=== PATIENT | male | born 1960 | race Caucasian/White ===

== ENCOUNTER 2018-01-03 12:24 | Inpatient (IN) | payer BC, SELFPAY ==
[2018-01-03] VITALS (9 sets, daily range): BP systolic 155–173; BP diastolic 73–88; PULSE 66–78; RESP 16–22; TEMP 36.6–37; O2SAT 96–100; BMI 29.2; BMI 29.3; BMI 28.7
--- NOTE | 2018-01-03 12:48 | EKG12_ITS ---
Test Reason : VOMITING Blood Pressure : / mmHG Vent. Rate : 072 BPM Atrial Rate : 072 BPM P-R Int : 122 ms QRS Dur : 074 ms QT Int : 412 ms P-R-T Axes : 029 019 046 degrees QTc Int : 451 ms Normal sinus rhythm Normal ECG Confirmed by ANABELL COLON, SASHA ([id number]), loan expeditor HARPAL REVELES ([id number] on 01/06/2018 1:07:03 PM Referred By: VERONICA Confirmed By:SASHA HUNG MD
[2018-01-03] MEDS: Ondansetron 4 MG/2 ML Vial IV (13:01)
[2018-01-03 13:30] LABS: Absolute Lymphocyte Count 1.06 X10^3/ul (0.83-4.51); Absolute Neutrophil Count 8.6 X10^3/uL (2.0-7.7); Basophil# 0.01 X10^3/uL; Basophil% 0.1 % (0-1); Hematocrit 22.5 % (40-54); Hemoglobin 7.2 g/dl (13.0-16.5); Lymphocyte # 1.06 X10^3/ul (4.0); Lymphocyte % 10.1 % (19-41); Mean Corpuscular Hgb 26.4 pg (27.0-32.0); Mean Corpuscular Volume 82.4 fL (80-94); Mean Platelet Vol. 8.7 fl (6.2-12.0); Monocyte# 0.67 X10^3/uL; Monocyte% 6.4 % (0-10); Neutrophil # 8.62 X10^3/uL (2.7-7.7); Neutrophil % 82.1 % (47-70); Platelet Count 368 K/mm3 (150-450); RBC Distribution Width CV 12.6 % (11.6-14.6); RBC Distribution Width SD 37.8 fl (35.1-43.9); Red Blood Count 2.73 M/mm3 (4.6-6.2); White Blood Count 10.5 K/mm3 (4.4-11.0)
[2018-01-03 13:34] LABS: POSITIVE COUNT NO; POSITIVE DIFFERENTIAL NO; POSITIVE MORPHOLOGY NO
[2018-01-03 13:56] LABS: White Blood Cells 0 SEEN /hpf (0-5)
[2018-01-03 13:58] LABS: Color, Urine Yellow (Yellow); Glucose, Dipstick Normal (Normal); Ketone-Dipstick Negative (Negative); Leukocyte Esterase-Dipstick Negative /ul (Negative); Nitrite-Dipstick Negative (Negative); Occult Blood-Urine 250 /ul (Negative); Protein-Dipstick 100 mg/dl (Negative); Urine Bilirubin Dipstick Negative (Negative); Urine Clarity Clear (Clear); Urine Urobilinogen Normal (Normal)
[2018-01-03 14:00] LABS: ALB/GLOB Ratio 0.6 RATIO (0.9-2.4); AST(SGOT) 11 U/L (15-37); Alanine Aminotransfer ALT/SGPT 15 U/L (16-61); Albumin, Serum 2.9 g/dL (3.2-5.0); Alkaline Phosphatase 63 U/L (45-117); Anion Gap 12 (5-15); BUN 95 mg/dL (7-18); BUN/Creat Ratio 9.6 RATIO (10-20); Calcium,Total 8.5 mg/dL (8.5-10.1); Chloride 105 mmol/L (98-107); Creatinine, Serum 9.91 mg/dL (0.70-1.30); EST Glomerular Filtration Rate 6 mL/min (>60); Est Glom Filt Rate - Afr Amer 7 mL/min (>60); Glucose 69 mg/dL (74-106); Potassium 5.4 mmol/L (3.5-5.1); Protein, Total 7.9 g/dL (6.4-8.2); Sodium Level 136 mmol/L (136-145)
--- NOTE | 2018-01-03 14:01 | ED.RN ---
creat 9.[address] lab[address] dr elise aware
[2018-01-03 14:04] LABS: Red Blood Cells-Urine 5-10 SEEN /hpf (0-5); Squamous Epithelial Cells - UA 0-5 SEEN /hpf (0-5)
[2018-01-03 14:05] LABS: Bacteria 1+ /hpf (None Seen); Mucous, Urine RARE /hpf (<or=2+)
--- NOTE | 2018-01-03 14:07 | US_ITS ---
STUDY: RENAL ULTRASOUND - COMPLETE REASON FOR EXAM: Male, 57 years old. Acute renal failure. TECHNIQUE: Ultrasound evaluation of the kidneys was performed with real-time and static mills-scale imaging. COMPARISON: None. FINDINGS: RIGHT KIDNEY: Normal location of the right kidney, which is normal in size. The right kidney measures 12.1 cm x 4.9 cm x 5.7 cm. There is a normal cortex of the right kidney. The renal cortex measures 1.8 cm. There is no right renal mass or cyst. There are no right renal calculi. There is no right hydronephrosis. DISTAL RIGHT URETER: There is non-visualization of the distal right ureter. There is no demonstrated right ureterovesical junction calculus. There is a visualized right ureteral jet. LEFT KIDNEY: Normal location of the left kidney, which is normal in size. The left kidney measures 12.7 cm x 5.0 cm x 6.1 cm. There is a normal cortex of the left kidney. The renal cortex measures 1.5 cm. There is no left renal mass or cyst. There are no left renal calculi. There is no left hydronephrosis. DISTAL LEFT URETER: There is non-visualization of the distal left ureter. There is no demonstrated left ureterovesical junction calculus. There is a visualized left ureteral jet. BLADDER: The distended urinary bladder has a volume of 141.3 ml. There is a normal wall thickness of the distended urinary bladder. There is no demonstrated mass within the urinary bladder. There are no demonstrated bladder calculi. US/Kidney and Bladder IMPRESSION: Normal ultrasound of the kidneys and urinary bladder. Electronically Signed: Godwin Palmer MD at 15:14 EST Tel [phone], Service support ,
--- NOTE | 2018-01-03 14:14 | NURSING ---
DR AMAYA IN ER
--- NOTE | 2018-01-03 14:15 | ED.VISSUMM ---
- ER Visit Summary Date of Service: 01/03/18 Chief Complaint: Weak, bloated, nausea, vomiting and dry heaves with 3-4 loose stools a day for 3-4 weeks. History of Present Illness: The patient is a 57 M who has history of type 1 diabetes, hypertension, hypercholesterolemia and hypothyroidism whose last A1c was 10.8. He was seen by Dr. NEYDA Caba and sent to the ER because he did not look well. Patient denies any fever, chills night sweats. He has had between a 10-15 pound weight loss over the past month. He does complain of intermittent blurred vision. He had no trouble with speech or swallowing. He denies any chest discomfort. He noticed he fatigues more easily and has dyspnea with exertion but not chest pain with exertion. He does report decreased urine output. He also reports orthostatic symptoms. He denies any symptoms of claudication. Physical Examination: Appears pale and ill. HEENT exam is remarkable pale conjunctival. Mucosa is moist. Heart is regular without murmur, gallop or rub. S1 and S2 are normal. Lungs are clear to auscultation with good movement of air bilaterally. Abdomen distended tympanitic with decreased bowel sounds. There is no tenderness, guarding or peritoneal findings. There are no skin lesions noted. He has stigmata of peripheral vascular disease lower extremity with absence of hair distal third of his leg and absence of hair on his toes. Pulses are diminished. Patient is alert and oriented ?3. Motor is 5 over 5. Sensory is intact. DTRs are symmetric with no clonus or Babinski sign. Cranial 2 through 12 are intact. Cerebellar testing is normal. Test Results: EKG was a sinus rhythm no ectopy. CBC is marked for an H&H 7.2 and 22.5. Electrode panel was marked for potassium 5.4, CO2 19 with an anion gap of 12 and a BUN and creatinine are 95 and 9.9 respectively. UA is remarkable for proteinuria and hematuria. Albumin is 2.9. Emergency Department Course and Treatment: Patient symptoms affect his diabetic CBC, BMP and UA was obtained. He did receive IV fluids as well as antiemetic. In light of his lab results and ultrasound of the kidneys was obtained and spoke with hospitalist for admission Treatment Plan: IV fluids, ultrasound kidney and further evaluation as inpatient Disposition: [facility] unit with telemetry monitoring Impression: 1. Uremia with acute renal failure 2. Anemia probably secondary #1 3. Dyspnea on exertion secondary to anemia 4. History of type 1 diabetes 5. History of hypertension 6. History of hypercholesterolemia 7. History of hypothyroidism This note was generated with [employer] dictation software. It may contain incorrect words, spelling, and punctuation that were not noted in review of the chart prior to signing ED Disposition - Plan for ED Patient: Chief Complaint: Nausea/Vomiting/Diarrhea Referrals: Marques Caba MD [Primary Care Provider] -
[2018-01-03 14:55] LABS: Lactic Acid 0.7 mmol/L (0.4-2.0)
--- NOTE | 2018-01-03 15:14 | PCM.HP.STD ---
Problem List (1) ELMO (acute kidney injury) Status: Acute (2) Hyperkalemia Status: Acute (3) Hyperlipidemia Status: Chronic (4) Hypothyroidism Status: Chronic (5) Hypertension Status: Chronic (6) Type II diabetes mellitus Status: Chronic History of Present Illness Date of Admission: 01/03/18 Chief Complaint: malaise The patient is a 57 year old M who presents to the ER complaining of not feeling well for about a month. He has felt weak, SOB with exertion, dizzy with exertion, and had daily vomiting every mornning and diarrhea about twice per day. He has a hx of DMt2, HTN, HLD, and hypothyroidism. He has had poor appetite, but has been drinking water heavily at night. He has noticed he is urinating less than normal - usually he drinks a lot of water at night and has to get up at night but now he does not need to, and he feels dehydrated despite his water intake. In the ER he has a BUN of 95 and a creatinine of 9.91, last Creatinine here was 1.28. He denies a hx of CKD. He also has a Hgb of 7.2 but denies any anemia. Potassium is elevated. He has been compliant with his medications. He has not been checking his blood sugar at home. He has no CP, tightness, or pressure. He was seen by Dr. Blakely in the ER. Past Medical History Past Medical History (Chronic Problems): Chronic Problems Hyperlipidemia (Chronic) Hypothyroidism (Chronic) Hypertension (Chronic) Type II diabetes mellitus (Chronic) Allergies No Known Allergies Allergy (Verified 10/28/15 18:31) Home Medications: Ambulatory Orders Medication Instructions Recorded Insulin Detemir [Levemir FlexPen] 45 units SC BID 10/28/15 Levothyroxine [Synthroid] 150 mcg PO DAILY 10/28/15 Lisinopril [Zestril] 10 mg PO DAILY 10/28/15 Simvastatin [Zocor] 20 mg PO QHS 10/28/15 Citalopram Hydrobromide 40 mg PO DAILY 01/03/18 [Citalopram HBr] Metformin HCl [Glucophage] 1,000 mg PO BID 01/03/18 Surgical History: - - nasal arterial cauterization Psychiatric History: Anxiety, Depression Lives: Spouse/ Significant Other Smoking Status: Never smoker Tobacco Use: Non-smoker Alcohol: None Drugs: None - *Family History Maternal History Items: Diabetes Paternal History Items: Heart Disease Review of Systems Constitutional: Reports: Malaise, Weakness, Fatigue. Denies: Chills, Fever, Weight Change HEENT: Denies: Head Aches, Sinus Congestion, Sinus Drainage Cardiovascular: Reports: Light Headedness. Denies: Chest Pain, Chest Pressure, Chest Tightness, Edema, Heaviness, Palpitations Respiratory: Reports: Shortness of breath upon exertion. Denies: Cough, Shortness of breath at rest, Sputum production, Wheezing Gastrointestinal: Denies: Abdominal Pain, Nausea, Vomiting Genitourinary: Denies: Dysuria Musculoskeletal: Denies: Joint Pain, Joint Tenderness Skin: Denies: Rash, Wounds Neurological: Denies: Numbness, Tingling, Focal weakness Psychiatric: Denies: Anxiety, Depression, Homicidal Ideations, Suicidal Ideations Hematologic/ Lymphatic: Denies: Easy Bruising, Easy Bleeding VTE Information - Inpt Only VTE Present on Admission: No VTE Mechan Device Prophylaxis: SCD's Patient Problems: Active and Suspected Problems ELMO (acute kidney injury) (Acute) Hyperkalemia (Acute) - Physical Exam General: Alert, Oriented x3, Cooperative HEENT: Atraumatic, PERRLA, EOMI, Normocephalic Neck: Supple, No JVD, Negative Carotid Bruits Lungs: Clear to auscultation, Normal air movement Cardiovascular: Regular rate, No murmurs Abdomen: Bowel Sounds Present, Soft, Non Tender, - - negative CVA tenderness Extremities: No edema, Capillary Refill Less than 3 Seconds Skin: No rashes, No breakdown Musculoskeletal: No Tenderness to Palpation of Joints or Extremities Neurological: Cranial nerves II-XII grossly intact Psych/Mental Status: Normal Affect, Appropriate, Alert and oriented to time, place, person, mood and affect Vital Signs Temp Pulse Resp BP Pulse Ox 98.6 F 73 16 157/73 H 97 01/03/18 12:24 01/03/18 13:53 01/03/18 13:53 01/03/18 13:53 01/03/18 13:53 Oxygen Delivery Method Room Air Weight: 92.5 kg Body Mass Index (BMI) 29.2 Laboratory Tests Past 24 Hrs 01/03/18 01/03/18 01/03/18 13:00 13:00 13:50 WBC 10.5 RBC 2.73 L Hgb 7.2 L Hct 22.5 L MCV 82.4 MCH 26.4 L MCHC 32.0 RDW 12.6 RDW Differential 37.8 Plt Count 368 MPV 8.7 Immature Gran % (Auto) 0.300 Neut % (Auto) 82.1 H Lymph % (Auto) 10.1 L [place]ascade % (Auto) 6.4 Eos % (Auto) 1.0 Baso % (Auto) 0.1 Absolute Neuts (auto) 8.6 H Absolute Lymphs (auto) 1.06 Total Counted Not Reportable Sodium 136 Potassium 5.4 H Chloride 105 Carbon Dioxide 19.0 L Anion Gap 12 BUN 95 H Creatinine 9.91 H* Estim Creat Clear Calc 8.70 Est GFR (MDRD) Af Amer 7 L Est GFR (MDRD) Non-Af 6 L BUN/Creatinine Ratio 9.6 L Glucose 69 L Lactic Acid Calcium 8.5 Total Bilirubin 0.50 AST 11 L ALT 15 L Alkaline Phosphatase 63 Total Protein 7.9 Albumin 2.9 L Globulin 5.0 H Albumin/Globulin Ratio 0.6 L Urine Color Yellow Urine Clarity Clear Urine pH 6.0 Ur Specific [place] 1.010 Urine Protein 100 H Urine Glucose (UA) Normal Urine Ketones Negative Urine Occult Blood 250 H Urine Nitrite Negative Urine Bilirubin Negative Urine Urobilinogen Normal Ur Leukocyte Esterase Negative Urine RBC 5-10 SEEN Urine WBC 0 SEEN Ur Squamous Epith Cells 0-5 SEEN Urine Bacteria 1+ Urine Mucus RARE 01/03/18 14:20 WBC RBC Hgb Hct MCV MCH MCHC RDW RDW Differential Plt Count MPV Immature Gran % (Auto) Neut % (Auto) Lymph % (Auto) Cascade % (Auto) Eos % (Auto) Baso % (Auto) Absolute Neuts (auto) Absolute Lymphs (auto) Total Counted Sodium Potassium Chloride Carbon Dioxide Anion Gap BUN Creatinine Estim Creat Clear Calc Est GFR (MDRD) Af Amer Est GFR (MDRD) Non-Af BUN/Creatinine Ratio Glucose Lactic Acid 0.7 Calcium Total Bilirubin AST ALT Alkaline Phosphatase Total Protein Albumin Globulin Albumin/Globulin Ratio Urine Color Urine Clarity Urine pH Ur Specific [place] Urine Protein Urine Glucose (UA) Urine Ketones Urine Occult Blood Urine Nitrite Urine Bilirubin Urine Urobilinogen Ur Leukocyte Esterase Urine RBC Urine WBC Ur Squamous Epith Cells Urine Bacteria Urine Mucus Assessment/Plan Active and Suspected Problems ELMO (acute kidney injury) (Acute) Hyperkalemia (Acute) 1. ELMO - BUN 95, Cr 9,91. Unclear etiology. He has had vomiting and diarrhea but has been drinking more water lately. He is not producing as much urine. He has not had a change in his medications and has been compliant with his normal meds. Renal ultrasound was normal. IV fluids started, renal consulted. Hold metformin and GEE inhibitor. Walsh cath for strict I/O. EKG normal sinus. 2. HTN - hold GEE, elevated in ER. Trending down. 3. DMt2 - hold metformin, hold levemir as his sugar is down in the ER. Sliding scale coverage. LA normal. 4. Hyperkalemia - mild. Trend. Kayex if needed. 5. Normocytic Anemia - Hgb 7.2. Unclear etiology. Check iron studies, stool for occult blood. Possibly contributing to his dizziness and exertional dyspnea. 6. Hypothyroidism - continue Synthroid 7. Anxiety/Depression - home meds. 8. HLD - on statin. DVT ppx: SCDs Pt was seen by Lance Hernandez PA-C under the supervision of Dr. Sharp.
--- NOTE | 2018-01-03 15:21 | NURSING ---
313 ACUTE RENAL FAILURE, UREMIA JOSE LUIS
--- NOTE | 2018-01-03 15:27 | NURSING ---
Dr. Sharp aware of changes made to home medication list.
--- NOTE | 2018-01-03 15:38 | ED.RN ---
PT REFUSED BARONE.
[2018-01-03 15:54] LABS: Iron 18 ug/dL (65-175); Iron Binding Capacity,Total 249 ug/dL (250-450); PERCENT IRON SATURATION 7.2 % (15.0-55.0)
[2018-01-03] MEDS: 0.9% Normal Saline 1,000 ML 150 ML IV (16:21)
[2018-01-03 16:31] LABS: Bedside Glucose 110 mg/dL (70-110)
--- NOTE | 2018-01-03 16:53 | PCM.CONS.R ---
Consultation - Renal 01/03/18 PCP/ Referring MD: Requesting physician: Sae Sharp Primary care physician: Marques Caba Reason for Consultation:: ELMO - History of Present Illness History of Present Illness: The patient is a 57 year old M with medical history for T2DM, HTN, HPL and hypothyroidism presented to the ER for not feeling well past 2 months. He has been ill with the flu but did not seek medical attention until today after his boss at work told him he looked pale and sick. He admits to nausea, vomiting, diarrhea 3 x/day with loose stools without hematochezia or melena. Denied recent antibiotic therapy. Denied hematemesis. Complained of chills without fever. Had anorexia, poor appetite and noticed orange colored urine past week with decreased urine output despite drinking fluids. Denied NSAID use. He takes lisinopril at home. He is on insulin and metformin for diabetes. He complained of weakness, lightheadedness without syncope. Had dyspnea with exertion, walking up steps. Denied chest pain, myalgias or cough. He has no prior history of kidney problems. He has a history of pneumonia 3 yrs ago. Creatinine in ER was 9.9 BUN 95 K 5.4 with NAG metabolic acidosis. Hgb low at 7.2 WBC 10.5. Stat renal US without hydronephrosis, no renal mass. Creatinine was 1.2 in 2016. - Allergies Allergies: Allergies No Known Allergies Allergy (Verified 10/28/15 18:31) - Current Medications Current Medications: Current Medications Acetaminophen (Tylenol) 650 mg PO Q6H PRN PRN PRN Reason: Mild Pain (1-3)/Temp > 100.7 F Atorvastatin Calcium (Lipitor) 10 mg PO QHS [facility] Citalopram Hydrobromide (Celexa) 20 mg PO DAILY [facility] Dextrose (D50w Syringe) 0 gm IV X1 PRN; Protocol PRN Reason: Hypoglycemia Glucagon () 1 mg IM .X1 PRN PRN Reason: Hypoglycemia Heparin Sodium (Porcine) () 5,000 units SC BID ROCKY Sodium Chloride () 1,000 mls @ 150 mls/hr IV .Q6H40M [facility] Last Admin: 01/03/18 16:21 Dose: 150 mls/hr Insulin Aspart (Novolog Flexpen (Bkc)) 0 units SC ACHS [place] PRN Reason: Protocol Last Admin: 01/03/18 16:21 Dose: Not Given Insulin Detemir (Levemir (Bkc)) 45 units SC BID [facility] Levothyroxine Sodium (Synthroid) 150 mcg PO DAILY@0600 [facility] Nutritional Formula (Lactose Free) (Glucerna Shake) 120 ml PO 4X/DAY [facility] Ondansetron HCl (Zofran) 4 mg IV Q6H PRN PRN PRN Reason: NAUSEA Sodium Chloride () 5 - 30 ml IV UD PRN PRN Reason: SALINE FLUSH - Past Medical History Past Medical History (Chronic Problems): Chronic Problems Hyperlipidemia (Chronic) Hypothyroidism (Chronic) Hypertension (Chronic) Type II diabetes mellitus (Chronic) - Past Surgical History Surgical History: - - nasal arterial cauterization - Social History Smoking Status: Never smoker Alcohol: None Drugs: None - Family History Maternal History Items: Diabetes, Heart Disease - no hx kidney disease Paternal History Items: Heart Disease Review of Systems Constitutional: Reports: Anorexia, Chills, Weakness, Fatigue. Denies: Fever Eyes: Reports: Blurred vision HEENT: Reports: Sore Throat. Denies: Head Aches Cardiovascular: Reports: Edema. Denies: Chest Pain, Syncope Gastrointestinal: Reports: Diarrhea - 3x day loose stool, Nausea, Vomiting. Denies: Abdominal Pain, Hematemesis, Hematochezia, Melena Genitourinary: Reports: - - decreased urine output, orange colored urine. Denies: Dysuria, Retention Musculoskeletal: Denies: Joint swelling Skin: Denies: Rash Neurological: Reports: - - lightheaded. Denies: Balance problems, Tremor Psychiatric: Reports: Anxiety Endocrine: Reports: Heat/ Cold Intolerance Hematologic/ Lymphatic: Reports: Anemia Patient Problems: Active and Suspected Problems ELMO (acute kidney injury) (Acute) Hyperkalemia (Acute) - Physical Exam General: Alert, Oriented x3, Cooperative, No apparent distress HEENT: PERRLA, EOMI Oral: Dry Mucosa Neck: Supple, No JVD Lungs: Clear to auscultation Cardiovascular: Regular rate, No murmurs, Murmur, No rub noted Abdomen: Bowel Sounds Present, Soft, Non Tender, Non-Distended Extremities: No edema, Peripheral Pulses Normal Skin: No rashes Musculoskeletal: No Muscle Wasting Lymphatic: No Cervical, Supraclavicular, or Inguinal Adenopathy Neurological: Cranial nerves II-XII grossly intact, - - no asterixis Psych/Mental Status: Normal Affect, Alert and oriented to time, place, person, mood and affect Vital Signs Temp Pulse Resp BP Pulse Ox 98.6 F 73 16 173/88 H 100 01/03/18 12:24 01/03/18 16:32 01/03/18 15:35 01/03/18 15:35 01/03/18 15:35 Oxygen Delivery Method Room Air Weight: 90.8 kg Body Mass Index (BMI) 28.7 Intake and Output for Last 24 Hours 01/01/18 01/02/18 01/03/18 23:59 23:59 23:59 Output Total 350 / 350 Balance -350 / -350 Microbiology Past 72 Hours 01/03/18 16:05 Stool Occult Blood (JANEY) - Final Stool POC Glucose 01/03/18 16:20 POC Glucose 110 Clinical Impression(s) from Imaging Studies Renal Ultrasound 01/03/18 14:07 IMPRESSION: Normal ultrasound of the kidneys and urinary bladder. Electronically Signed: Godwin Palmer MD at 15:14 EST Tel [phone], Service support , Assessment/Plan Active and Suspected Problems ELMO (acute kidney injury) (Acute) Hyperkalemia (Acute) 1. ELMO with uremic symptoms. Creatinine 9.9, baseline creatinine 1.2 in Oct 2016. UA with proteinuria. Likely has ELMO due to dehydration vs ATN. Check FeNa. Underlying diabetic nephropathy. Renal US no hydronephrosis. Discussed with patient may need dialysis if unresponsive to fluid resuscitation. Start ivf at 150cc/hr. Monitor labs daily for now. No urgency to initiate dialysis today. Hold lisinopril. Avoid nephrotoxins. Check El, UCr, UPCR 2. NAG Metabolic acidosis likely from renal failure, GI loss. Diarrhea may be from metformin. 3. Hyperkalemia kayexalate as needed. 4. Dehydration, anorexia, nausea, vomiting from uremia. Initiate ivf. 5. T2DM on insulin. DC metformin due to renal failure. Primary service mgmt 6. HTN stable 7. Anemia check iron studies. Occult neg x1 8. Hypothyroid on replacement therapy 9. Strict I/O's, daily renal panel. 10. Check phos, vit D, PTH
--- NOTE | 2018-01-03 17:03 | CON.PCM_ITS ---
Consultation - Renal 01/03/18 PCP/ Referring MD: Requesting physician: Sae Sharp Primary care physician: Marques Caba Reason for Consultation:: ELMO - History of Present Illness History of Present Illness: The patient is a 57 year old M with medical history for T2DM, HTN, HPL and hypothyroidism presented to the ER for not feeling well past 2 months. He has been ill with the flu but did not seek medical attention until today after his boss at work told him he looked pale and sick. He admits to nausea, vomiting, diarrhea 3 x/day with loose stools without hematochezia or melena. Denied recent antibiotic therapy. Denied hematemesis. Complained of chills without fever. Had anorexia, poor appetite and noticed orange colored urine past week with decreased urine output despite drinking fluids. Denied NSAID use. He takes lisinopril at home. He is on insulin and metformin for diabetes. He complained of weakness, lightheadedness without syncope. Had dyspnea with exertion, walking up steps. Denied chest pain, myalgias or cough. He has no prior history of kidney problems. He has a history of pneumonia 3 yrs ago. Creatinine in ER was 9.9 BUN 95 K 5.4 with NAG metabolic acidosis. Hgb low at 7.2 WBC 10.5. Stat renal US without hydronephrosis, no renal mass. Creatinine was 1.2 in 2016. - Allergies Allergies: Allergies No Known Allergies Allergy (Verified 10/28/15 18:31) - Current Medications Current Medications: Current Medications Acetaminophen (Tylenol) 650 mg PO Q6H PRN PRN PRN Reason: Mild Pain (1-3)/Temp > 100.7 F Atorvastatin Calcium (Lipitor) 10 mg PO QHS [place]OCK[place] Citalopram Hydrobromide (Celexa) 20 mg PO DAILY [facility] Dextrose (D50w Syringe) 0 gm IV X1 PRN; Protocol PRN Reason: Hypoglycemia Glucagon () 1 mg IM .X1 PRN PRN Reason: Hypoglycemia Heparin Sodium (Porcine) () 5,000 units SC BID ROCKY Sodium Chloride () 1,000 mls @ 150 mls/hr IV .Q6H40M [facility] Last Admin: 01/03/18 16:21 Dose: 150 mls/hr Insulin Aspart (Novolog Flexpen (Bkc)) 0 units SC ACHS ROCKY PRN Reason: Protocol Last Admin: 01/03/18 16:21 Dose: Not Given Insulin Detemir (Levemir (Bkc)) 45 units SC BID [facility] Levothyroxine Sodium (Synthroid) 150 mcg PO DAILY@0600 [facility] Nutritional Formula (Lactose Free) (Glucerna Shake) 120 ml PO 4X/DAY [facility] Ondansetron HCl (Zofran) 4 mg IV Q6H PRN PRN PRN Reason: NAUSEA Sodium Chloride () 5 - 30 ml IV UD PRN PRN Reason: SALINE FLUSH - Past Medical History Past Medical History (Chronic Problems): Chronic Problems Hyperlipidemia (Chronic) Hypothyroidism (Chronic) Hypertension (Chronic) Type II diabetes mellitus (Chronic) - Past Surgical History Surgical History: - - nasal arterial cauterization - Social History Smoking Status: Never smoker Alcohol: None Drugs: None - Family History Maternal History Items: Diabetes, Heart Disease - no hx kidney disease Paternal History Items: Heart Disease Review of Systems Constitutional: Reports: Anorexia, Chills, Weakness, Fatigue. Denies: Fever Eyes: Reports: Blurred vision HEENT: Reports: Sore Throat. Denies: Head Aches Cardiovascular: Reports: Edema. Denies: Chest Pain, Syncope Gastrointestinal: Reports: Diarrhea - 3x day loose stool, Nausea, Vomiting. Denies: Abdominal Pain, Hematemesis, Hematochezia, Melena Genitourinary: Reports: - - decreased urine output, orange colored urine. Denies: Dysuria, Retention Musculoskeletal: Denies: Joint swelling Skin: Denies: Rash Neurological: Reports: - - lightheaded. Denies: Balance problems, Tremor Psychiatric: Reports: Anxiety Endocrine: Reports: Heat/ Cold Intolerance Hematologic/ Lymphatic: Reports: Anemia Patient Problems: Active and Suspected Problems ELMO (acute kidney injury) (Acute) Hyperkalemia (Acute) - Physical Exam General: Alert, Oriented x3, Cooperative, No apparent distress HEENT: PERRLA, EOMI Oral: Dry Mucosa Neck: Supple, No JVD Lungs: Clear to auscultation Cardiovascular: Regular rate, No murmurs, Murmur, No rub noted Abdomen: Bowel Sounds Present, Soft, Non Tender, Non-Distended Extremities: No edema, Peripheral Pulses Normal Skin: No rashes Musculoskeletal: No Muscle Wasting Lymphatic: No Cervical, Supraclavicular, or Inguinal Adenopathy Neurological: Cranial nerves II-XII grossly intact, - - no asterixis Psych/Mental Status: Normal Affect, Alert and oriented to time, place, person, mood and affect Vital Signs Temp Pulse Resp BP Pulse Ox 98.6 F 73 16 173/88 H 100 01/03/18 12:24 01/03/18 16:32 01/03/18 15:35 01/03/18 15:35 01/03/18 15:35 Oxygen Delivery Method Room Air Weight: 90.8 kg Body Mass Index (BMI) 28.7 Intake and Output for Last 24 Hours 01/01/18 01/02/18 01/03/18 23:59 23:59 23:59 Output Total 350 / 350 Balance -350 / -350 Microbiology Past 72 Hours 01/03/18 16:05 Stool Occult Blood (JANEY) - Final Stool POC Glucose 01/03/18 16:20 POC Glucose 110 Clinical Impression(s) from Imaging Studies Renal Ultrasound 01/03/18 14:07 IMPRESSION: Normal ultrasound of the kidneys and urinary bladder. Electronically Signed: Godwin Palmer MD at 15:14 EST Tel [phone], Service support , Assessment/Plan Active and Suspected Problems ELMO (acute kidney injury) (Acute) Hyperkalemia (Acute) 1. ELMO with uremic symptoms. Creatinine 9.9, baseline creatinine 1.2 in Oct 2016. UA with proteinuria. Likely has ELMO due to dehydration vs ATN. Check FeNa. Underlying diabetic nephropathy. Renal US no hydronephrosis. Discussed with patient may need dialysis if unresponsive to fluid resuscitation. Start ivf at 150cc/hr. Monitor labs daily for now. No urgency to initiate dialysis today. Hold lisinopril. Avoid nephrotoxins. Check El, UCr, UPCR 2. NAG Metabolic acidosis likely from renal failure, GI loss. Diarrhea may be from metformin. 3. Hyperkalemia kayexalate as needed. 4. Dehydration, anorexia, nausea, vomiting from uremia. Initiate ivf. 5. T2DM on insulin. DC metformin due to renal failure. Primary service mgmt 6. HTN stable 7. Anemia check iron studies. Occult neg x1 8. Hypothyroid on replacement therapy 9. Strict I/O's, daily renal panel. 10. Check phos, vit D, PTH
[2018-01-03] MEDS: Glucerna Shake 120 ML LIQUID PO ×2 (17:39→21:51)
[2018-01-03 18:13] LABS: Urine Sodium 49 mmol/L (Not Establ.)
[2018-01-03 18:41] LABS: Protein, Urine (Random) 224.8 mg/dL (<11.9); Protein:Creat Ratio 5809 mg/g CRE (0-200)
[2018-01-03] MEDS: 0.9% Normal Saline 1,000 ML 999 ML IV (20:32)
[2018-01-03] MEDS: Atorvastatin Calcium 10 MG Tablet PO (21:51)
[2018-01-03] MEDS: Heparin Injection 5,000 UNITS/ML Syringe 5000 UNITS SC (21:51)
[2018-01-03 22:15] LABS: Bedside Glucose 90 mg/dL (70-110)
[2018-01-04] VITALS (9 sets, daily range): BP systolic 134–170; BP diastolic 58–83; PULSE 66–85; RESP 16–18; TEMP 36.7–37; O2SAT 95–100
[2018-01-04] MEDS: 0.9% Normal Saline 1,000 ML 150 ML IV ×2 (00:45→07:16)
--- NOTE | 2018-01-04 01:11 | NURSING ---
URINE COLLECTED AND SENT FOR ADDITIONAL LAB WORK.
[2018-01-04] MEDS: Levothyroxine 150 MCG Tablet PO (05:25)
[2018-01-04 06:56] LABS: Bedside Glucose 118 mg/dL (70-110)
[2018-01-04 07:11] LABS: Absolute Lymphocyte Count 1.12 X10^3/ul (0.83-4.51); Absolute Neutrophil Count 8.2 X10^3/uL (2.0-7.7); Basophil# 0.01 X10^3/uL; Basophil% 0.1 % (0-1); Eosinophil# 0.08 X10^3/uL; Eosinophils% 0.8 % (0-5); Hematocrit 20.2 % (40-54); Hemoglobin 6.4 g/dl (13.0-16.5); Lymphocyte # 1.12 X10^3/ul (4.0); Lymphocyte % 11.5 % (19-41); Mean Corp Hgb Conc 31.7 g/gl (32-36); Mean Corpuscular Hgb 26.2 pg (27.0-32.0); Mean Corpuscular Volume 82.8 fL (80-94); Mean Platelet Vol. 8.5 fl (6.2-12.0); Monocyte# 0.36 X10^3/uL; Monocyte% 3.7 % (0-10); Neutrophil # 8.18 X10^3/uL (2.7-7.7); Neutrophil % 83.7 % (47-70); Platelet Count 296 K/mm3 (150-450); RBC Distribution Width CV 12.5 % (11.6-14.6); RBC Distribution Width SD 38.4 fl (35.1-43.9); Red Blood Count 2.44 M/mm3 (4.6-6.2); White Blood Count 9.8 K/mm3 (4.4-11.0)
[2018-01-04 07:18] LABS: POSITIVE COUNT NO; POSITIVE DIFFERENTIAL NO; POSITIVE MORPHOLOGY NO
[2018-01-04 07:46] LABS: Albumin, Serum 2.3 g/dL (3.2-5.0); BUN 93 mg/dL (7-18); BUN/Creat Ratio 10.1 RATIO (10-20); Calcium,Total 7.8 mg/dL (8.5-10.1); Chloride 108 mmol/L (98-107); Creatinine, Serum 9.22 mg/dL (0.70-1.30); EST Glomerular Filtration Rate 6 mL/min (>60); Est Glom Filt Rate - Afr Amer 8 mL/min (>60); Estimated Creatinine Clearance 9.35 ml/min; Ferritin 138 ng/mL (26-388); Glucose 108 mg/dL (74-106); Phosphorus 6.2 mg/dL (2.5-4.9); Potassium 5.9 mmol/L (3.5-5.1); Sodium Level 137 mmol/L (136-145)
[2018-01-04] MEDS: Sodium Polystyrene Sulfonate 15 GM/60 ML UDC 30 GM PO (09:30)
[2018-01-04] MEDS: 0.9% Normal Saline 1,000 ML 100 ML IV (09:47)
--- NOTE | 2018-01-04 10:55 | PCM.PROGNOTE ---
Patient Problems: Active and Suspected Problems ELMO (acute kidney injury) (Acute) Hyperkalemia (Acute) Subjective: Pt still feels he has only slightly improved. He has general malaise and is nauseous. He is agreeable to blood transfusion. He has no dizziness or LH today. He is not SOB at rest. Urine has been mills / yellowper nursing. He refused mullen cath. He has significant output. - Physical Exam General: Alert, Oriented x3, Cooperative HEENT: Atraumatic, PERRLA, EOMI, Normocephalic Neck: Supple, No JVD, Negative Carotid Bruits Lungs: Clear to auscultation, Normal air movement Cardiovascular: Regular rate, No murmurs Abdomen: Bowel Sounds Present, Soft, Non Tender, - - neg cva tenderness Extremities: No edema, Capillary Refill Less than 3 Seconds Skin: No rashes, No breakdown Musculoskeletal: No Tenderness to Palpation of Joints or Extremities Neurological: Cranial nerves II-XII grossly intact Psych/Mental Status: Normal Affect, Appropriate, Alert and oriented to time, place, person, mood and affect Vital Signs Temp Pulse Resp BP Pulse Ox 98.4 F 85 18 150/58 H 98 01/04/18 05:20 01/04/18 08:08 01/04/18 05:20 01/04/18 05:20 01/04/18 05:20 Oxygen Delivery Method Room Air Weight: 90.8 kg Body Mass Index (BMI) 28.7 Intake and Output for Last 24 Hours 01/02/18 01/03/18 01/04/18 23:59 23:59 23:59 Intake Total 485 / 485 3272 / 3272 Output Total 500 / 500 1500 / 1500 Balance -15 / -15 1772 / 1772 Microbiology Past 72 Hours 01/03/18 16:05 Stool Occult Blood (JANEY) - Final Stool Laboratory Tests Past 24 Hrs 01/03/18 01/03/18 01/03/18 17:45 17:45 17:45 WBC RBC Hgb Hct MCV MCH MCHC RDW RDW Differential Plt Count MPV Immature Gran % (Auto) Neut % (Auto) Lymph % (Auto) [place] % (Auto) Eos % (Auto) Baso % (Auto) Absolute Neuts (auto) Absolute Lymphs (auto) Total Counted Sodium Potassium Chloride Carbon Dioxide BUN Creatinine Estim Creat Clear Calc Est GFR (MDRD) Af Amer Est GFR (MDRD) Non-Af BUN/Creatinine Ratio Glucose Calcium Phosphorus Ferritin Total Protein (PEP) Albumin Albumin (PEP) Globulin (PEP) Albumin/Globulin (PEP) Tiyqf-2-Whheszqkd Hxikm-2-Kwdbqjpfc Beta Globulins Gamma Globulins M-Liam Vitamin D 25-Hydroxy PTH Intact U Random Total Protein 224.8 H Ur Random Sodium 49 Urine Creatinine 39.30 38.70 Protein/Creatinin Ratio 5809 H Urine Immunofixation 01/04/18 01/04/18 01/04/18 01:00 06:46 06:46 WBC 9.8 RBC 2.44 L Hgb 6.4 L Hct 20.2 L MCV 82.8 MCH 26.2 L MCHC 31.7 L RDW 12.5 RDW Differential 38.4 Plt Count 296 MPV 8.5 Immature Gran % (Auto) 0.200 Neut % (Auto) 83.7 H Lymph % (Auto) 11.5 L [place] % (Auto) 3.7 Eos % (Auto) 0.8 Baso % (Auto) 0.1 Absolute Neuts (auto) 8.2 H Absolute Lymphs (auto) 1.12 Total Counted Not Reportable Sodium 137 Potassium 5.9 H Chloride 108 H Carbon Dioxide 17.0 L BUN 93 H Creatinine 9.22 H* Estim Creat Clear Calc 9.35 Est GFR (MDRD) Af Amer 8 L Est GFR (MDRD) Non-Af 6 L BUN/Creatinine Ratio 10.1 Glucose 108 H Calcium 7.8 L Phosphorus 6.2 H Ferritin 138 Total Protein (PEP) Pending Albumin 2.3 L Albumin (PEP) Pending Globulin (PEP) Pending Albumin/Globulin (PEP) Pending Jqbux-5-Kjhnsaoaj Pending Cnbty-6-Chvpanenq Pending Beta Globulins Pending Gamma Globulins Pending M-Liam Pending Vitamin D 25-Hydroxy PTH Intact U Random Total Protein Ur Random Sodium Urine Creatinine Protein/Creatinin Ratio Urine Immunofixation Pending 01/04/18 01/04/18 06:46 06:46 WBC RBC Hgb Hct MCV MCH MCHC RDW RDW Differential Plt Count MPV Immature Gran % (Auto) Neut % (Auto) Lymph % (Auto) [place] % (Auto) Eos % (Auto) Baso % (Auto) Absolute Neuts (auto) Absolute Lymphs (auto) Total Counted Sodium Potassium Chloride Carbon Dioxide BUN Creatinine Estim Creat Clear Calc Est GFR (MDRD) Af Amer Est GFR (MDRD) Non-Af BUN/Creatinine Ratio Glucose Calcium Phosphorus Ferritin Total Protein (PEP) Albumin Albumin (PEP) Globulin (PEP) Albumin/Globulin (PEP) Aitzh-5-Sbzbhorxh Hkxtt-7-Wlltxytbi Beta Globulins Gamma Globulins M-Liam Vitamin D 25-Hydroxy Pending PTH Intact Pending U Random Total Protein Ur Random Sodium Urine Creatinine Protein/Creatinin Ratio Urine Immunofixation POC Glucose 01/04/18 01/03/18 01/03/18 06:48 21:50 16:20 POC Glucose 118 H 90 110 Assessment/Plan Active and Suspected Problems ELMO (acute kidney injury) (Acute) Hyperkalemia (Acute) 1. ELMO - BUN 95, Cr 9,91. Unclear etiology. He has had vomiting and diarrhea but has been drinking more water lately. Pt has been sick at least a month possibly two. He is not producing as much urine. He has not had a change in his medications and has been compliant with his normal meds. Renal ultrasound was normal. IV fluids, renal consulted. Held metformin and GEE inhibitor at admission. Continue strict I/O, renal low K diet. -Workup per nephrology. 2. HTN - GEE held 2/2 above. Running high. 3. DMt2 - hold metformin, hold levemir. has been low. Sliding scale coverage only. LA normal. 4. Hyperkalemia - Kayex today. Recheck pending. No events on tele. 5. Iron deficiency anemia - venofer x 3 days. 1 unit PRBC. Stool occult blood pending. 6. Hypothyroidism - continue Synthroid 7. Anxiety/Depression - home meds. 8. HLD - on statin. DVT ppx: SCDs Pt was seen by Lance Hernandez PA-C under the supervision of Dr. Sharp.
[2018-01-04] MEDS: Heparin Injection 5,000 UNITS/ML Syringe 5000 UNITS SC ×2 (10:57→21:14)
[2018-01-04] MEDS: Citalopram 20 MG Tablet PO (10:58)
[2018-01-04 11:11] LABS: Bedside Glucose 111 mg/dL (70-110)
[2018-01-04 11:24] LABS: Anion Gap 10 (5-15); BUN 93 mg/dL (7-18); Calcium,Total 7.8 mg/dL (8.5-10.1); Chloride 109 mmol/L (98-107); Creatinine, Serum 9.31 mg/dL (0.70-1.30); EST Glomerular Filtration Rate 6 mL/min (>60); Est Glom Filt Rate - Afr Amer 8 mL/min (>60); Estimated Creatinine Clearance 9.26 ml/min; Glucose 113 mg/dL (74-106); Potassium 5.5 mmol/L (3.5-5.1); Sodium Level 138 mmol/L (136-145)
--- NOTE | 2018-01-04 11:58 | PCM.PN.REN ---
Patient Problems: Active and Suspected Problems ELMO (acute kidney injury) (Acute) Hyperkalemia (Acute) Subjective: nausea improved with medications. Still with anorexia. Denied SOb, edema. Urine output improved. Creatinine remains elevated at 9.2. Kayexalate dose for potassium of 5.9. spoke with pt about potential need for dialysis if renal function not much better. discussed possibility of kidney biopsy for nephrotic proteinuria that may be from poorly controlled diabetes. at bedside - Physical Exam General: Alert, Oriented x3, Cooperative Oral: Dry Mucosa Neck: Supple Lungs: Clear to auscultation Cardiovascular: Regular rate, No rub noted Abdomen: Bowel Sounds Present, Soft, Non Tender, Non-Distended Extremities: No edema Musculoskeletal: No Muscle Wasting Neurological: - - no tremor, no asterixis Psych/Mental Status: Normal Affect, Appropriate, Alert and oriented to time, place, person, mood and affect Vital Signs Temp Pulse Resp BP Pulse Ox 98.5 F 66 18 154/66 H 100 01/04/18 11:00 01/04/18 11:00 01/04/18 11:00 01/04/18 11:00 01/04/18 11:00 Oxygen Delivery Method Room Air Weight: 90.8 kg Body Mass Index (BMI) 28.7 Intake and Output for Last 24 Hours 01/02/18 01/03/18 01/04/18 23:59 23:59 23:59 Intake Total 485 / 485 3272 / 3272 Output Total 500 / 500 1500 / 1500 Balance -15 / -15 1772 / 1772 Microbiology Past 72 Hours 01/03/18 16:05 Stool Occult Blood (JANEY) - Final Stool Laboratory Tests Past 24 Hrs 01/03/18 01/03/18 01/03/18 17:45 17:45 17:45 WBC RBC Hgb Hct MCV MCH MCHC RDW RDW Differential Plt Count MPV Immature Gran % (Auto) Neut % (Auto) Lymph % (Auto) [place] % (Auto) Eos % (Auto) Baso % (Auto) Absolute Neuts (auto) Absolute Lymphs (auto) Total Counted Sodium Potassium Chloride Carbon Dioxide Anion Gap BUN Creatinine Estim Creat Clear Calc Est GFR (MDRD) Af Amer Est GFR (MDRD) Non-Af BUN/Creatinine Ratio Glucose Calcium Phosphorus Ferritin Total Protein (PEP) Albumin Albumin (PEP) Globulin (PEP) Albumin/Globulin (PEP) Idewb-5-Vwwhvtujs Akaiq-3-Wcoktsinf Beta Globulins Gamma Globulins M-iLam Vitamin D 25-Hydroxy PTH Intact U Random Total Protein 224.8 H Ur Random Sodium 49 Urine Creatinine 39.30 38.70 Protein/Creatinin Ratio 5809 H Urine Immunofixation Blood Type Antibody Screen Crossmatch 01/04/18 01/04/18 01/04/18 01:00 06:46 06:46 WBC 9.8 RBC 2.44 L Hgb 6.4 L Hct 20.2 L MCV 82.8 MCH 26.2 L MCHC 31.7 L RDW 12.5 RDW Differential 38.4 Plt Count 296 MPV 8.5 Immature Gran % (Auto) 0.200 Neut % (Auto) 83.7 H Lymph % (Auto) 11.5 L [place] % (Auto) 3.7 Eos % (Auto) 0.8 Baso % (Auto) 0.1 Absolute Neuts (auto) 8.2 H Absolute Lymphs (auto) 1.12 Total Counted Not Reportable Sodium 137 Potassium 5.9 H Chloride 108 H Carbon Dioxide 17.0 L Anion Gap BUN 93 H Creatinine 9.22 H* Estim Creat Clear Calc 9.35 Est GFR (MDRD) Af Amer 8 L Est GFR (MDRD) Non-Af 6 L BUN/Creatinine Ratio 10.1 Glucose 108 H Calcium 7.8 L Phosphorus 6.2 H Ferritin 138 Total Protein (PEP) Pending Albumin 2.3 L Albumin (PEP) Pending Globulin (PEP) Pending Albumin/Globulin (PEP) Pending Hycmi-8-Lsqjlkuqh Pending Qtgwv-1-Rfwdxakxh Pending Beta Globulins Pending Gamma Globulins Pending M-Liam Pending Vitamin D 25-Hydroxy PTH Intact U Random Total Protein Ur Random Sodium Urine Creatinine Protein/Creatinin Ratio Urine Immunofixation Pending Blood Type Antibody Screen Crossmatch 01/04/18 01/04/18 01/04/18 06:46 06:46 10:50 WBC RBC Hgb Hct MCV MCH MCHC RDW RDW Differential Plt Count MPV Immature Gran % (Auto) Neut % (Auto) Lymph % (Auto) [place] % (Auto) Eos % (Auto) Baso % (Auto) Absolute Neuts (auto) Absolute Lymphs (auto) Total Counted Sodium 138 Potassium 5.5 H Chloride 109 H Carbon Dioxide 19.0 L Anion Gap 10 BUN 93 H Creatinine 9.31 H* Estim Creat Clear Calc 9.26 Est GFR (MDRD) Af Amer 8 L Est GFR (MDRD) Non-Af 6 L BUN/Creatinine Ratio 10.0 Glucose 113 H Calcium 7.8 L Phosphorus Ferritin Total Protein (PEP) Albumin Albumin (PEP) Globulin (PEP) Albumin/Globulin (PEP) Kpoiu-5-Njjaeyoml Alijk-8-Sarqvrtwe Beta Globulins Gamma Globulins M-Liam Vitamin D 25-Hydroxy Pending PTH Intact Pending U Random Total Protein Ur Random Sodium Urine Creatinine Protein/Creatinin Ratio Urine Immunofixation Blood Type Antibody Screen Crossmatch 01/04/18 10:50 WBC RBC Hgb Hct MCV MCH MCHC RDW RDW Differential Plt Count MPV Immature Gran % (Auto) Neut % (Auto) Lymph % (Auto) [place] % (Auto) Eos % (Auto) Baso % (Auto) Absolute Neuts (auto) Absolute Lymphs (auto) Total Counted Sodium Potassium Chloride Carbon Dioxide Anion Gap BUN Creatinine Estim Creat Clear Calc Est GFR (MDRD) Af Amer Est GFR (MDRD) Non-Af BUN/Creatinine Ratio Glucose Calcium Phosphorus Ferritin Total Protein (PEP) Albumin Albumin (PEP) Globulin (PEP) Albumin/Globulin (PEP) Pvnni-8-Suoaxcbac Gcuek-8-Qktiadmxg Beta Globulins Gamma Globulins M-Liam Vitamin D 25-Hydroxy PTH Intact U Random Total Protein Ur Random Sodium Urine Creatinine Protein/Creatinin Ratio Urine Immunofixation Blood Type Pending Antibody Screen Pending Crossmatch See Detail POC Glucose 01/04/18 01/04/18 01/03/18 11:05 06:48 21:50 POC Glucose 111 H 118 H 90 01/03/18 16:20 POC Glucose 110 Assessment/Plan Active and Suspected Problems ELMO (acute kidney injury) (Acute) Hyperkalemia (Acute) 1. ELMO with uremic symptoms. Creatinine 9.9 to 9.2 today, baseline creatinine 1.2 in Oct 2016. UA with proteinuria. A1C at 10 in April 2017, lost to follow up. Likely has ELMO due to ATN, metformin induced renal failure. FeNa >1% with UPCR 5.8g/gCr. Underlying diabetic nephropathy. Renal US no hydronephrosis. Discussed with patient may need dialysis. No urgency to initiate dialysis today. Volume status stable. Hold lisinopril. Avoid nephrotoxins. 2. NAG Metabolic acidosis likely from renal failure, GI loss. Diarrhea may be from metformin. Start bicarb drip. Stool for cdiff pending 3. Hyperkalemia kayexalate as needed. Add low K diet 4. Dehydration, anorexia, nausea, vomiting from uremia. Continue ivf. 5. T2DM on insulin ss 6. HTN stable 7. Anemia iron deficient on iv iron. PRBC for hgb 6.4 8. Nephrotic proteinuria may be from poorly controlled diabetes. Check SPEP, UPEP. 9. Check phos, vit D, PTH DW hospitalist
--- NOTE | 2018-01-04 12:04 | PN.RENAL_ITS ---
Patient Problems: Active and Suspected Problems ELMO (acute kidney injury) (Acute) Hyperkalemia (Acute) Subjective: nausea improved with medications. Still with anorexia. Denied SOb, edema. Urine output improved. Creatinine remains elevated at 9.2. Kayexalate dose for potassium of 5.9. spoke with pt about potential need for dialysis if renal function not much better. discussed possibility of kidney biopsy for nephrotic proteinuria that may be from poorly controlled diabetes. at bedside - Physical Exam General: Alert, Oriented x3, Cooperative Oral: Dry Mucosa Neck: Supple Lungs: Clear to auscultation Cardiovascular: Regular rate, No rub noted Abdomen: Bowel Sounds Present, Soft, Non Tender, Non-Distended Extremities: No edema Musculoskeletal: No Muscle Wasting Neurological: - - no tremor, no asterixis Psych/Mental Status: Normal Affect, Appropriate, Alert and oriented to time, place, person, mood and affect Vital Signs Temp Pulse Resp BP Pulse Ox 98.5 F 66 18 154/66 H 100 01/04/18 11:00 01/04/18 11:00 01/04/18 11:00 01/04/18 11:00 01/04/18 11:00 Oxygen Delivery Method Room Air Weight: 90.8 kg Body Mass Index (BMI) 28.7 Intake and Output for Last 24 Hours 01/02/18 01/03/18 01/04/18 23:59 23:59 23:59 Intake Total 485 / 485 3272 / 3272 Output Total 500 / 500 1500 / 1500 Balance -15 / -15 1772 / 1772 Microbiology Past 72 Hours 01/03/18 16:05 Stool Occult Blood (JANEY) - Final Stool Laboratory Tests Past 24 Hrs 01/03/18 01/03/18 01/03/18 17:45 17:45 17:45 WBC RBC Hgb Hct MCV MCH MCHC RDW RDW Differential Plt Count MPV Immature Gran % (Auto) Neut % (Auto) Lymph % (Auto) [place] % (Auto) Eos % (Auto) Baso % (Auto) Absolute Neuts (auto) Absolute Lymphs (auto) Total Counted Sodium Potassium Chloride Carbon Dioxide Anion Gap BUN Creatinine Estim Creat Clear Calc Est GFR (MDRD) Af Amer Est GFR (MDRD) Non-Af BUN/Creatinine Ratio Glucose Calcium Phosphorus Ferritin Total Protein (PEP) Albumin Albumin (PEP) Globulin (PEP) Albumin/Globulin (PEP) Klwha-7-Szdomevus Dqvla-3-Ssaqjeuua Beta Globulins Gamma Globulins M-Liam Vitamin D 25-Hydroxy PTH Intact U Random Total Protein 224.8 H Ur Random Sodium 49 Urine Creatinine 39.30 38.70 Protein/Creatinin Ratio 5809 H Urine Immunofixation Blood Type Antibody Screen Crossmatch 01/04/18 01/04/18 01/04/18 01:00 06:46 06:46 WBC 9.8 RBC 2.44 L Hgb 6.4 L Hct 20.2 L MCV 82.8 MCH 26.2 L MCHC 31.7 L RDW 12.5 RDW Differential 38.4 Plt Count 296 MPV 8.5 Immature Gran % (Auto) 0.200 Neut % (Auto) 83.7 H Lymph % (Auto) 11.5 L [place] % (Auto) 3.7 Eos % (Auto) 0.8 Baso % (Auto) 0.1 Absolute Neuts (auto) 8.2 H Absolute Lymphs (auto) 1.12 Total Counted Not Reportable Sodium 137 Potassium 5.9 H Chloride 108 H Carbon Dioxide 17.0 L Anion Gap BUN 93 H Creatinine 9.22 H* Estim Creat Clear Calc 9.35 Est GFR (MDRD) Af Amer 8 L Est GFR (MDRD) Non-Af 6 L BUN/Creatinine Ratio 10.1 Glucose 108 H Calcium 7.8 L Phosphorus 6.2 H Ferritin 138 Total Protein (PEP) Pending Albumin 2.3 L Albumin (PEP) Pending Globulin (PEP) Pending Albumin/Globulin (PEP) Pending Qpicq-4-Vlnocgvub Pending Opokg-5-Tifdhnwob Pending Beta Globulins Pending Gamma Globulins Pending M-Liam Pending Vitamin D 25-Hydroxy PTH Intact U Random Total Protein Ur Random Sodium Urine Creatinine Protein/Creatinin Ratio Urine Immunofixation Pending Blood Type Antibody Screen Crossmatch 01/04/18 01/04/18 01/04/18 06:46 06:46 10:50 WBC RBC Hgb Hct MCV MCH MCHC RDW RDW Differential Plt Count MPV Immature Gran % (Auto) Neut % (Auto) Lymph % (Auto) [place] % (Auto) Eos % (Auto) Baso % (Auto) Absolute Neuts (auto) Absolute Lymphs (auto) Total Counted Sodium 138 Potassium 5.5 H Chloride 109 H Carbon Dioxide 19.0 L Anion Gap 10 BUN 93 H Creatinine 9.31 H* Estim Creat Clear Calc 9.26 Est GFR (MDRD) Af Amer 8 L Est GFR (MDRD) Non-Af 6 L BUN/Creatinine Ratio 10.0 Glucose 113 H Calcium 7.8 L Phosphorus Ferritin Total Protein (PEP) Albumin Albumin (PEP) Globulin (PEP) Albumin/Globulin (PEP) Visxw-9-Nbkvbfbrl Xrpdk-5-Nqlznfaae Beta Globulins Gamma Globulins M-Liam Vitamin D 25-Hydroxy Pending PTH Intact Pending U Random Total Protein Ur Random Sodium Urine Creatinine Protein/Creatinin Ratio Urine Immunofixation Blood Type Antibody Screen Crossmatch 01/04/18 10:50 WBC RBC Hgb Hct MCV MCH MCHC RDW RDW Differential Plt Count MPV Immature Gran % (Auto) Neut % (Auto) Lymph % (Auto) [place] % (Auto) Eos % (Auto) Baso % (Auto) Absolute Neuts (auto) Absolute Lymphs (auto) Total Counted Sodium Potassium Chloride Carbon Dioxide Anion Gap BUN Creatinine Estim Creat Clear Calc Est GFR (MDRD) Af Amer Est GFR (MDRD) Non-Af BUN/Creatinine Ratio Glucose Calcium Phosphorus Ferritin Total Protein (PEP) Albumin Albumin (PEP) Globulin (PEP) Albumin/Globulin (PEP) Iotbp-5-Ofnzoftul Hpvwc-2-Suczwipjy Beta Globulins Gamma Globulins M-Liam Vitamin D 25-Hydroxy PTH Intact U Random Total Protein Ur Random Sodium Urine Creatinine Protein/Creatinin Ratio Urine Immunofixation Blood Type Pending Antibody Screen Pending Crossmatch See Detail POC Glucose 01/04/18 01/04/18 01/03/18 11:05 06:48 21:50 POC Glucose 111 H 118 H 90 01/03/18 16:20 POC Glucose 110 Assessment/Plan Active and Suspected Problems ELMO (acute kidney injury) (Acute) Hyperkalemia (Acute) 1. ELMO with uremic symptoms. Creatinine 9.9 to 9.2 today, baseline creatinine 1.2 in Oct 2016. UA with proteinuria. A1C at 10 in April 2017, lost to follow up. Likely has ELMO due to ATN, metformin induced renal failure. FeNa >1% with UPCR 5.8g/gCr. Underlying diabetic nephropathy. Renal US no hydronephrosis. Discussed with patient may need dialysis. No urgency to initiate dialysis today. Volume status stable. Hold lisinopril. Avoid nephrotoxins. 2. NAG Metabolic acidosis likely from renal failure, GI loss. Diarrhea may be from metformin. Start bicarb drip. Stool for cdiff pending 3. Hyperkalemia kayexalate as needed. Add low K diet 4. Dehydration, anorexia, nausea, vomiting from uremia. Continue ivf. 5. T2DM on insulin ss 6. HTN stable 7. Anemia iron deficient on iv iron. PRBC for hgb 6.4 8. Nephrotic proteinuria may be from poorly controlled diabetes. Check SPEP, UPEP. 9. Check phos, vit D, PTH DW hospitalist
[2018-01-04 13:46] LABS: International Normalized Ratio 1.3; Prothrombin Time (Protime)PT. 15.5 SECONDS (11.7-14.9)
[2018-01-04] MEDS: Sodium Bicarbonate 75 MEQ in 0.45% Normal Saline 1,000 ML 100 ML IV (15:40)
[2018-01-04 17:51] LABS: Bedside Glucose 125 mg/dL (70-110)
[2018-01-04 20:06] LABS: Anion Gap 12 (5-15); BUN 92 mg/dL (7-18); Calcium,Total 7.8 mg/dL (8.5-10.1); Chloride 110 mmol/L (98-107); EST Glomerular Filtration Rate 6 mL/min (>60); Est Glom Filt Rate - Afr Amer 8 mL/min (>60); Estimated Creatinine Clearance 9.37 ml/min; Glucose 116 mg/dL (74-106); Potassium 5.4 mmol/L (3.5-5.1); Sodium Level 139 mmol/L (136-145)
[2018-01-04] MEDS: Atorvastatin Calcium 10 MG Tablet PO (21:14)
[2018-01-04 21:21] LABS: Bedside Glucose 92 mg/dL (70-110)
[2018-01-05] VITALS (7 sets, daily range): BP systolic 159–200; BP diastolic 72–98; PULSE 63–87; RESP 16–18; TEMP 36.3–37.1; O2SAT 99–100
[2018-01-05] MEDS: Sodium Bicarbonate 75 MEQ in 0.45% Normal Saline 1,000 ML 100 ML IV ×3 (02:30→22:13)
[2018-01-05] MEDS: Levothyroxine 150 MCG Tablet PO (05:30)
[2018-01-05 06:05] LABS: Absolute Lymphocyte Count 0.75 X10^3/ul (0.83-4.51); Absolute Neutrophil Count 7.3 X10^3/uL (2.0-7.7); Basophil# 0.05 X10^3/uL; Basophil% 0.6 % (0-1); Eosinophil# 0.14 X10^3/uL; Eosinophils% 1.6 % (0-5); Hematocrit 22.3 % (40-54); Hemoglobin 7.1 g/dl (13.0-16.5); Lymphocyte # 0.75 X10^3/ul (4.0); Lymphocyte % 8.4 % (19-41); Mean Corp Hgb Conc 31.8 g/gl (32-36); Mean Corpuscular Hgb 26.8 pg (27.0-32.0); Mean Corpuscular Volume 84.2 fL (80-94); Mean Platelet Vol. 9.1 fl (6.2-12.0); Monocyte# 0.77 X10^3/uL; Monocyte% 8.6 % (0-10); Neutrophil # 7.25 X10^3/uL (2.7-7.7); Neutrophil % 80.6 % (47-70); Platelet Count 354 K/mm3 (150-450); RBC Distribution Width CV 12.3 % (11.6-14.6); RBC Distribution Width SD 36.6 fl (35.1-43.9); Red Blood Count 2.65 M/mm3 (4.6-6.2)
[2018-01-05 06:06] LABS: International Normalized Ratio 1.3; Prothrombin Time (Protime)PT. 15.7 SECONDS (11.7-14.9)
[2018-01-05 06:13] LABS: POSITIVE COUNT NO; POSITIVE DIFFERENTIAL NO; POSITIVE MORPHOLOGY NO
[2018-01-05 06:41] LABS: Bedside Glucose 91 mg/dL (70-110)
[2018-01-05 06:56] LABS: Albumin, Serum 2.3 g/dL (3.2-5.0); Anion Gap 12 (5-15); BUN 92 mg/dL (7-18); BUN/Creat Ratio 10.2 RATIO (10-20); Calcium,Total 7.8 mg/dL (8.5-10.1); Chloride 109 mmol/L (98-107); Creatinine, Serum 9.05 mg/dL (0.70-1.30); EST Glomerular Filtration Rate 7 mL/min (>60); Est Glom Filt Rate - Afr Amer 8 mL/min (>60); Estimated Creatinine Clearance 9.52 ml/min; Glucose 92 mg/dL (74-106); Phosphorus 6.3 mg/dL (2.5-4.9); Potassium 5.2 mmol/L (3.5-5.1); Sodium Level 139 mmol/L (136-145)
[2018-01-05] MEDS: Heparin Injection 5,000 UNITS/ML Syringe 5000 UNITS SC ×2 (09:42→22:08)
[2018-01-05] MEDS: Citalopram 20 MG Tablet PO (09:42)
[2018-01-05 11:25] LABS: Bedside Glucose 165 mg/dL (70-110)
[2018-01-05] MEDS: Nepro Liquid 120 ML LIQUID PO (14:23)
--- NOTE | 2018-01-05 14:32 | PCM.PROGNOTE ---
Patient Problems: Active and Suspected Problems ELMO (acute kidney injury) (Acute) Hyperkalemia (Acute) Subjective: The patient verbalizes no complaints, reporting that overall he feels that he is improving, he is less nauseous. He is making a significant amount of urine and having no difficulty urinating. He reports that it appears more clear yellow as opposed to the orange color he was seeing prior to admission. He has had some loose stools. No CP, palp, dizziness, LH. He has ambulated around the unit without difficulty. - Physical Exam General: Alert, Oriented x3, Cooperative HEENT: Atraumatic, PERRLA, EOMI, Normocephalic Neck: Supple, No JVD, Negative Carotid Bruits Lungs: Clear to auscultation, Normal air movement Cardiovascular: Regular rate, No murmurs Abdomen: Bowel Sounds Present, Soft, Non Tender Extremities: No edema, Capillary Refill Less than 3 Seconds Skin: No rashes, No breakdown Musculoskeletal: No Tenderness to Palpation of Joints or Extremities Neurological: Cranial nerves II-XII grossly intact Psych/Mental Status: Normal Affect, Appropriate, Alert and oriented to time, place, person, mood and affect Vital Signs Temp Pulse Resp BP Pulse Ox 98 F 63 18 163/73 H 100 01/05/18 14:18 01/05/18 14:18 01/05/18 14:18 01/05/18 14:18 01/05/18 14:18 Oxygen Delivery Method Room Air Weight: 90.8 kg Body Mass Index (BMI) 28.7 Intake and Output for Last 24 Hours 01/03/18 01/04/18 01/05/18 23:59 23:59 23:59 Intake Total 485 / 485 6394 / 6394 2250 / 2250 Output Total 500 / 500 3700 / 3700 2425 / 2425 Balance -15 / -15 2694 / 2694 -175 / -175 Microbiology Past 72 Hours 01/04/18 13:00 Enteric Bacteriology - Final Stool 01/04/18 13:00 C. difficile DNA Amplification - Final Stool 01/03/18 16:05 Stool Occult Blood (JANEY) - Final Stool Laboratory Tests Past 24 Hrs 01/04/18 01/04/18 01/05/18 10:50 19:15 05:18 WBC RBC Hgb Hct MCV MCH MCHC RDW RDW Differential Plt Count MPV Immature Gran % (Auto) Neut % (Auto) Lymph % (Auto) [place] % (Auto) Eos % (Auto) Baso % (Auto) Absolute Neuts (auto) Absolute Lymphs (auto) Total Counted PT INR Sodium 139 139 Potassium 5.4 H 5.2 H Chloride 110 H 109 H Carbon Dioxide 17.0 L 18.0 L Anion Gap 12 12 BUN 92 H 92 H Creatinine 9.20 H* 9.05 H* Estim Creat Clear Calc 9.37 9.52 Est GFR (MDRD) Af Amer 8 L 8 L Est GFR (MDRD) Non-Af 6 L 7 L BUN/Creatinine Ratio 10.0 10.2 Glucose 116 H 92 Calcium 7.8 L 7.8 L Phosphorus 6.3 H Albumin 2.3 L Crossmatch See Detail 01/05/18 01/05/18 05:18 05:22 WBC 9.0 RBC 2.65 L Hgb 7.1 L Hct 22.3 L MCV 84.2 MCH 26.8 L MCHC 31.8 L RDW 12.3 RDW Differential 36.6 Plt Count 354 MPV 9.1 Immature Gran % (Auto) 0.200 Neut % (Auto) 80.6 H Lymph % (Auto) 8.4 L [place] % (Auto) 8.6 Eos % (Auto) 1.6 Baso % (Auto) 0.6 Absolute Neuts (auto) 7.3 Absolute Lymphs (auto) 0.75 L Total Counted Not Reportable PT 15.7 H INR 1.3 Sodium Potassium Chloride Carbon Dioxide Anion Gap BUN Creatinine Estim Creat Clear Calc Est GFR (MDRD) Af Amer Est GFR (MDRD) Non-Af BUN/Creatinine Ratio Glucose Calcium Phosphorus Albumin Crossmatch POC Glucose 01/05/18 01/05/18 01/04/18 11:20 06:37 21:13 POC Glucose 165 H 91 92 01/04/18 17:39 POC Glucose 125 H Assessment/Plan Active and Suspected Problems ELMO (acute kidney injury) (Acute) Hyperkalemia (Acute) 1. ELMO - slight improvement in Renal function, but good urinary output. Unclear etiology. Renal ultrasound was normal. IV fluids, renal consulted. Held metformin and GEE inhibitor at admission. Continue strict I/O, renal low K diet. -Workup per nephrology. -his gap is normal, however his CO2 remains low. He is on a bicarbonate drip with no improvement. -phosphorous is elevated. 2. HTN - GEE held 2/2 above and 2/2 persistent hyperkalemia. BP remains elevated. 3. DMt2 - hold metformin, hold levemir. has been low. Sliding scale coverage only. LA normal. 4. Hyperkalemia - little improvement with kayex. 5. Iron deficiency anemia - minimal improvement. venofer x 3 days. s/p 1 unit PRBC. Stool occult blood is negative. C diff and enteric panel negative. 6. Hypothyroidism - continue Synthroid 7. Anxiety/Depression - home meds. 8. HLD - on statin. 9. DAVID - CPAP at night. DVT ppx: SCDs Pt was seen by Lance Hernandez PA-C under the supervision of Dr. Sharp.
[2018-01-05 16:26] LABS: Bedside Glucose 103 mg/dL (70-110)
[2018-01-05] MEDS: Acetaminophen 325 MG Tablet 650 MG PO (20:01)
[2018-01-05] MEDS: amLODIPine 10 MG Tablet PO (20:34)
[2018-01-05] MEDS: Atorvastatin Calcium 10 MG Tablet PO (22:07)
[2018-01-05 22:16] LABS: Bedside Glucose 119 mg/dL (70-110)
[2018-01-06] VITALS (8 sets, daily range): BP systolic 143–187; BP diastolic 66–100; PULSE 70–83; RESP 16–18; TEMP 36.6–36.9; O2SAT 97–100
[2018-01-06] MEDS: Levothyroxine 150 MCG Tablet PO (05:27)
[2018-01-06 05:33] LABS: Absolute Lymphocyte Count 0.72 X10^3/ul (0.83-4.51); Absolute Neutrophil Count 7.6 X10^3/uL (2.0-7.7); Basophil# 0.02 X10^3/uL; Basophil% 0.2 % (0-1); Eosinophil# 0.12 X10^3/uL; Eosinophils% 1.3 % (0-5); Hematocrit 21.7 % (40-54); Lymphocyte # 0.72 X10^3/ul (4.0); Lymphocyte % 7.8 % (19-41); Mean Corp Hgb Conc 32.3 g/gl (32-36); Mean Corpuscular Hgb 26.8 pg (27.0-32.0); Mean Corpuscular Volume 83.1 fL (80-94); Mean Platelet Vol. 8.7 fl (6.2-12.0); Monocyte# 0.72 X10^3/uL; Monocyte% 7.8 % (0-10); Neutrophil # 7.59 X10^3/uL (2.7-7.7); Neutrophil % 82.7 % (47-70); Platelet Count 355 K/mm3 (150-450); RBC Distribution Width CV 12.1 % (11.6-14.6); RBC Distribution Width SD 35.3 fl (35.1-43.9); Red Blood Count 2.61 M/mm3 (4.6-6.2); White Blood Count 9.2 K/mm3 (4.4-11.0)
[2018-01-06 05:43] LABS: POSITIVE COUNT NO; POSITIVE DIFFERENTIAL NO; POSITIVE MORPHOLOGY NO
[2018-01-06 05:49] LABS: Albumin, Serum 2.3 g/dL (3.2-5.0); BUN 92 mg/dL (7-18); BUN/Creat Ratio 10.7 RATIO (10-20); Calcium,Total 7.9 mg/dL (8.5-10.1); Chloride 106 mmol/L (98-107); Creatinine, Serum 8.63 mg/dL (0.70-1.30); EST Glomerular Filtration Rate 7 mL/min (>60); Est Glom Filt Rate - Afr Amer 8 mL/min (>60); Estimated Creatinine Clearance 9.99 ml/min; Glucose 95 mg/dL (74-106); Phosphorus 5.7 mg/dL (2.5-4.9); Potassium 4.3 mmol/L (3.5-5.1); Sodium Level 139 mmol/L (136-145)
[2018-01-06 06:51] LABS: Bedside Glucose 140 mg/dL (70-110)
[2018-01-06] MEDS: Acetaminophen 325 MG Tablet 650 MG PO (09:19)
[2018-01-06] MEDS: Citalopram 20 MG Tablet PO (09:19)
[2018-01-06] MEDS: amLODIPine 10 MG Tablet PO (09:19)
[2018-01-06] MEDS: Heparin Injection 5,000 UNITS/ML Syringe 5000 UNITS SC ×2 (09:20→21:06)
--- NOTE | 2018-01-06 09:33 | PCM.PN.REN ---
Patient Problems: Active and Suspected Problems ELMO (acute kidney injury) (Acute) Hyperkalemia (Acute) Subjective: still with anorexia but no nausea, vomiting. Good urine output. Has SOB with exertion likely from anemia, renal failure, deconditioning. No edema or CP. Diarrhea resolved with neg cdiff. - Physical Exam General: Alert, Oriented x3, Cooperative, Well developed, Well nourished Neck: Supple Lungs: Clear to auscultation Cardiovascular: Regular rate, No rub noted Abdomen: Bowel Sounds Present, Soft, Non Tender, Non-Distended Extremities: No edema Musculoskeletal: No Muscle Wasting Neurological: Cranial nerves II-XII grossly intact, - - no tremor Psych/Mental Status: Normal Affect, Alert and oriented to time, place, person, mood and affect Vital Signs Temp Pulse Resp BP Pulse Ox 98.4 F 78 16 174/83 H 98 01/06/18 09:28 01/06/18 09:28 01/06/18 09:28 01/06/18 09:28 01/06/18 09:28 Oxygen Delivery Method Room Air Weight: 90.8 kg Body Mass Index (BMI) 28.7 Intake and Output for Last 24 Hours 01/04/18 01/05/18 01/06/18 23:59 23:59 23:59 Intake Total 6394 / 6394 4424 / 4424 801 / 801 Output Total 3700 / 3700 4555 / 4555 1825 / 1825 Balance 2694 / 2694 -131 / -131 -1024 / -1024 Microbiology Past 72 Hours 01/04/18 13:00 Enteric Bacteriology - Final Stool 01/04/18 13:00 C. difficile DNA Amplification - Final Stool 01/03/18 16:05 Stool Occult Blood (JANEY) - Final Stool Laboratory Tests Past 24 Hrs 01/06/18 01/06/18 05:15 05:15 WBC 9.2 RBC 2.61 L Hgb 7.0 L Hct 21.7 L MCV 83.1 MCH 26.8 L MCHC 32.3 RDW 12.1 RDW Differential 35.3 Plt Count 355 MPV 8.7 Immature Gran % (Auto) 0.200 Neut % (Auto) 82.7 H Lymph % (Auto) 7.8 L [place] % (Auto) 7.8 Eos % (Auto) 1.3 Baso % (Auto) 0.2 Absolute Neuts (auto) 7.6 Absolute Lymphs (auto) 0.72 L Total Counted Not Reportable Sodium 139 Potassium 4.3 Chloride 106 Carbon Dioxide 21.0 BUN 92 H Creatinine 8.63 H* Estim Creat Clear Calc 9.99 Est GFR (MDRD) Af Amer 8 L Est GFR (MDRD) Non-Af 7 L BUN/Creatinine Ratio 10.7 Glucose 95 Calcium 7.9 L Phosphorus 5.7 H Albumin 2.3 L POC Glucose 01/06/18 01/05/18 01/05/18 06:37 22:03 16:21 POC Glucose 140 H 119 H 103 01/05/18 11:20 POC Glucose 165 H Assessment/Plan Active and Suspected Problems ELMO (acute kidney injury) (Acute) Hyperkalemia (Acute) 1. ELMO with uremic symptoms. Creatinine improved to 8.6, nonoliguric. Will continue to monitor renal function. No urgent need for dialysis today. Underlying diabetic nephropathy. Renal US no hydronephrosis. Volume status stable. protein electrophoresis pending. 2. NAG Metabolic acidosis likely from renal failure, GI loss. Diarrhea may be from metformin. Stool for cdiff negative. Continue ivf with bicarb 3. Hyperkalemia stable 4. Dehydration, anorexia. Continue ivf. 5. T2DM on insulin ss 6. HTN stable 7. Anemia iron deficient on iv iron. s/p PRB. Epo x1 today 8. Nephrotic proteinuria may be from poorly controlled diabetes. Check SPEP, UPEP. 9. Start binders for elevated phos DW hospitalist
[2018-01-06 09:34] LABS: Vitamin D,25 Hydroxy 5.6 ng/mL (19.95-100.01)
[2018-01-06 09:36] LABS: PTHIN 228.9 pg/mL (18.4-80.1)
--- NOTE | 2018-01-06 11:02 | PCM.PROGNOTE ---
Patient Problems: Active and Suspected Problems ELMO (acute kidney injury) (Acute) Hyperkalemia (Acute) Subjective: Pt had a return of nausea and vomiting. No further diarrhea. He continues to have good urinary output of clear yellow urine. No abdominal or flank pain. He feels fatigued and SOB with exertion. No dizziness, LH, or palp. - Physical Exam General: Alert, Oriented x3, Cooperative HEENT: Atraumatic, PERRLA, EOMI, Normocephalic Neck: Supple, No JVD, Negative Carotid Bruits Lungs: Clear to auscultation, Normal air movement Cardiovascular: Regular rate, No murmurs Abdomen: Bowel Sounds Present, Soft, Non Tender Extremities: No edema, Capillary Refill Less than 3 Seconds Skin: No rashes, No breakdown Musculoskeletal: No Tenderness to Palpation of Joints or Extremities Neurological: Cranial nerves II-XII grossly intact Psych/Mental Status: Normal Affect, Appropriate, Alert and oriented to time, place, person, mood and affect Vital Signs Temp Pulse Resp BP Pulse Ox 98.4 F 78 16 174/83 H 98 01/06/18 09:28 01/06/18 09:28 01/06/18 09:28 01/06/18 09:28 01/06/18 09:28 Oxygen Delivery Method Room Air Weight: 90.8 kg Body Mass Index (BMI) 28.7 Intake and Output for Last 24 Hours 01/04/18 01/05/18 01/06/18 23:59 23:59 23:59 Intake Total 6394 / 6394 4424 / 4424 801 / 801 Output Total 3700 / 3700 4555 / 4555 1825 / 1825 Balance 2694 / 2694 -131 / -131 -1024 / -1024 Microbiology Past 72 Hours 01/04/18 13:00 Enteric Bacteriology - Final Stool 01/04/18 13:00 C. difficile DNA Amplification - Final Stool 01/03/18 16:05 Stool Occult Blood (JANEY) - Final Stool Laboratory Tests Past 24 Hrs 01/04/18 01/04/18 01/06/18 06:46 06:46 05:15 WBC RBC Hgb Hct MCV MCH MCHC RDW RDW Differential Plt Count MPV Immature Gran % (Auto) Neut % (Auto) Lymph % (Auto) [place] % (Auto) Eos % (Auto) Baso % (Auto) Absolute Neuts (auto) Absolute Lymphs (auto) Total Counted Sodium 139 Potassium 4.3 Chloride 106 Carbon Dioxide 21.0 BUN 92 H Creatinine 8.63 H* Estim Creat Clear Calc 9.99 Est GFR (MDRD) Af Amer 8 L Est GFR (MDRD) Non-Af 7 L BUN/Creatinine Ratio 10.7 Glucose 95 Calcium 7.9 L Phosphorus 5.7 H Albumin 2.3 L Vitamin D 25-Hydroxy 5.6 L PTH Intact 228.9 H 01/06/18 05:15 WBC 9.2 RBC 2.61 L Hgb 7.0 L Hct 21.7 L MCV 83.1 MCH 26.8 L MCHC 32.3 RDW 12.1 RDW Differential 35.3 Plt Count 355 MPV 8.7 Immature Gran % (Auto) 0.200 Neut % (Auto) 82.7 H Lymph % (Auto) 7.8 L [place] % (Auto) 7.8 Eos % (Auto) 1.3 Baso % (Auto) 0.2 Absolute Neuts (auto) 7.6 Absolute Lymphs (auto) 0.72 L Total Counted Not Reportable Sodium Potassium Chloride Carbon Dioxide BUN Creatinine Estim Creat Clear Calc Est GFR (MDRD) Af Amer Est GFR (MDRD) Non-Af BUN/Creatinine Ratio Glucose Calcium Phosphorus Albumin Vitamin D 25-Hydroxy PTH Intact POC Glucose 01/06/18 01/05/18 01/05/18 06:37 22:03 16:21 POC Glucose 140 H 119 H 103 01/05/18 11:20 POC Glucose 165 H Assessment/Plan Active and Suspected Problems ELMO (acute kidney injury) (Acute) Hyperkalemia (Acute) 1. ELMO - slight improvements in Renal function continue, he has good urinary output.Renal ultrasound was normal. IV fluids, renal consulted. Held metformin and GEE inhibitor at admission. Continue strict I/O, renal low K diet. -Workup per nephrology. -CO2 improved. -phosphorous remains elevated. -K has normalized -Nausea and vomiting has returned, diarrhea is resolved. 2. HTN - GEE held 2/2 above and 2/2 persistent hyperkalemia. BP remains elevated. 3. DMt2 - hold metformin, hold levemir. has been low. Sliding scale coverage only. 4. Hyperkalemia - resolved 5. Iron deficiency anemia - remains poor. venofer x 3 s/p 1 unit PRBC. Stool occult blood is negative. C diff and enteric panel negative. 6. Hypothyroidism - continue Synthroid 7. Anxiety/Depression - home meds. 8. HLD - on statin. 9. DAVID - CPAP at night. DVT ppx: SCDs Pt was seen by Lance Hernandez PA-C under the supervision of Dr. Sharp.
[2018-01-06] MEDS: Sodium Bicarbonate 75 MEQ in 0.45% Normal Saline 1,000 ML 100 ML IV (11:49)
[2018-01-06] MEDS: 0.9% NaCl Peripheral Flush Adult/Peds IV (11:53)
[2018-01-06 12:06] LABS: Bedside Glucose 123 mg/dL (70-110)
[2018-01-06] MEDS: SEVELAMER CARBONATE 800 MG TABLET PO ×2 (13:47→17:07)
[2018-01-06 17:16] LABS: Bedside Glucose 118 mg/dL (70-110)
[2018-01-06] MEDS: Atorvastatin Calcium 10 MG Tablet PO (21:05)
[2018-01-06 21:17] LABS: Bedside Glucose 122 mg/dL (70-110)
[2018-01-06] MEDS: Sodium Bicarbonate 75 MEQ in 0.45% Normal Saline 1,000 ML 75 ML IV (23:27)
[2018-01-06] MEDS: Sodium Bicarbonate 75 MEQ in 0.45% Normal Saline 1,000 ML IV (23:50)
[2018-01-07] VITALS (7 sets, daily range): BP systolic 154–166; BP diastolic 74–86; PULSE 74–82; RESP 18; TEMP 36.6–37.1; O2SAT 95–100
[2018-01-07 05:38] LABS: Absolute Lymphocyte Count 0.73 X10^3/ul (0.83-4.51); Absolute Neutrophil Count 6.6 X10^3/uL (2.0-7.7); Basophil# 0.02 X10^3/uL; Basophil% 0.2 % (0-1); Eosinophil# 0.08 X10^3/uL; Hematocrit 21.8 % (40-54); Hemoglobin 6.9 g/dl (13.0-16.5); Lymphocyte # 0.73 X10^3/ul (4.0); Mean Corp Hgb Conc 31.7 g/gl (32-36); Mean Corpuscular Hgb 26.5 pg (27.0-32.0); Mean Corpuscular Volume 83.8 fL (80-94); Mean Platelet Vol. 8.9 fl (6.2-12.0); Monocyte# 0.73 X10^3/uL; Neutrophil # 6.57 X10^3/uL (2.7-7.7); Neutrophil % 80.6 % (47-70); Platelet Count 342 K/mm3 (150-450); RBC Distribution Width CV 12.4 % (11.6-14.6); RBC Distribution Width SD 35.8 fl (35.1-43.9); White Blood Count 8.2 K/mm3 (4.4-11.0)
[2018-01-07 05:44] LABS: POSITIVE COUNT NO; POSITIVE DIFFERENTIAL NO; POSITIVE MORPHOLOGY NO
[2018-01-07 06:24] LABS: Albumin, Serum 2.4 g/dL (3.2-5.0); BUN 86 mg/dL (7-18); BUN/Creat Ratio 10.3 RATIO (10-20); Calcium,Total 8.2 mg/dL (8.5-10.1); Chloride 103 mmol/L (98-107); Creatinine, Serum 8.37 mg/dL (0.70-1.30); EST Glomerular Filtration Rate 7 mL/min (>60); Est Glom Filt Rate - Afr Amer 9 mL/min (>60); Glucose 101 mg/dL (74-106); Phosphorus 5.5 mg/dL (2.5-4.9); Potassium 3.9 mmol/L (3.5-5.1); Sodium Level 138 mmol/L (136-145)
--- NOTE | 2018-01-07 06:31 | NURSING ---
Kathi PINA apprised of Creat of 8.37 called from lab this am.
[2018-01-07] MEDS: 0.9% NaCl Peripheral Flush Adult/Peds IV (06:54)
[2018-01-07] MEDS: Levothyroxine 150 MCG Tablet PO (06:54)
[2018-01-07 07:10] LABS: Bedside Glucose 107 mg/dL (70-110)
[2018-01-07] MEDS: Citalopram 20 MG Tablet PO (08:05)
[2018-01-07] MEDS: amLODIPine 10 MG Tablet PO (08:05)
[2018-01-07] MEDS: SEVELAMER CARBONATE 800 MG TABLET PO ×3 (08:05→17:04)
[2018-01-07] MEDS: Heparin Injection 5,000 UNITS/ML Syringe 5000 UNITS SC (08:06)
[2018-01-07] MEDS: Glucerna Shake 120 ML LIQUID PO ×3 (10:51→19:36)
[2018-01-07 12:06] LABS: Bedside Glucose 162 mg/dL (70-110)
--- NOTE | 2018-01-07 12:27 | PCM.PN.REN ---
Patient Problems: Active and Suspected Problems ELMO (acute kidney injury) (Acute) Hyperkalemia (Acute) Subjective: episode of nausea, emesis in the evenings. Denied SOB, edema. Renal function slightly improved. - Physical Exam General: Alert, Oriented x3, Cooperative, No apparent distress Lungs: Clear to auscultation Abdomen: Bowel Sounds Present, Soft, Non Tender, Non-Distended Extremities: No edema Psych/Mental Status: Normal Affect, Alert and oriented to time, place, person, mood and affect Vital Signs Temp Pulse Resp BP Pulse Ox 97.9 F 82 18 154/74 H 98 01/07/18 08:00 01/07/18 08:00 01/07/18 08:00 01/07/18 08:00 01/07/18 08:00 Oxygen Delivery Method Room Air Weight: 90.8 kg Body Mass Index (BMI) 28.7 Intake and Output for Last 24 Hours 01/05/18 01/06/18 01/07/18 23:59 23:59 23:59 Intake Total 4424 / 4424 3566 / 3566 799 / 799 Output Total 4555 / 4555 5875 / 5875 1275 / 1275 Balance -131 / -131 -2309 / -2309 -476 / -476 Microbiology Past 72 Hours 01/04/18 13:00 Enteric Bacteriology - Final Stool 01/04/18 13:00 C. difficile DNA Amplification - Final Stool Laboratory Tests Past 24 Hrs 01/07/18 01/07/18 05:12 05:12 WBC 8.2 RBC 2.60 L Hgb 6.9 L Hct 21.8 L MCV 83.8 MCH 26.5 L MCHC 31.7 L RDW 12.4 RDW Differential 35.8 Plt Count 342 MPV 8.9 Immature Gran % (Auto) 0.200 Neut % (Auto) 80.6 H Lymph % (Auto) 9.[address] [place] % (Auto) 9.0 Eos % (Auto) 1.0 Baso % (Auto) 0.2 Absolute Neuts (auto) 6.6 Absolute Lymphs (auto) 0.73 L Total Counted Not Reportable Sodium 138 Potassium 3.9 Chloride 103 Carbon Dioxide 24.0 BUN 86 H Creatinine 8.37 H* Estim Creat Clear Calc 10.30 Est GFR (MDRD) Af Amer 9 L Est GFR (MDRD) Non-Af 7 L BUN/Creatinine Ratio 10.3 Glucose 101 Calcium 8.2 L Phosphorus 5.5 H Albumin 2.4 L POC Glucose 01/07/18 01/07/18 01/06/18 11:58 06:36 21:04 POC Glucose 162 H 107 122 H 01/06/18 17:03 POC Glucose 118 H Assessment/Plan Active and Suspected Problems ELMO (acute kidney injury) (Acute) Hyperkalemia (Acute) 1. ELMO with uremic symptoms. Creatinine improved to 8.3, nonoliguric. Will stop bicarb drip. Await protein electrophoresis results. If renal fxn continues to improve off ivf, will continue to hold dialysis. May need renal biopsy as outpt if proteinuria persists. Discussed with pt. 2. NAG Metabolic acidosis likely from renal failure, GI loss. stable, stop bicarb drip 3. Hyperkalemia resolved. 4. T2DM on insulin ss 5. HTN stable 6. Anemia iron deficient on iv iron. s/p PRBc. Epo x1 t 7. Nephrotic proteinuria may be from poorly controlled diabetes. Check SPEP, UPEP. 8. Start binders for elevated phos
--- NOTE | 2018-01-07 12:41 | PCM.PROGNOTE ---
<Lance Hernandez - Last Filed: 01/07/18 12:41> Patient Problems: Active and Suspected Problems ELMO (acute kidney injury) (Acute) Hyperkalemia (Acute) Subjective: Pt had another episode of nausea and vomiting last night. None today. Good urinary output continues. No other complaints. - Physical Exam General: Alert, Oriented x3, Cooperative HEENT: Atraumatic, PERRLA, EOMI, Normocephalic Neck: Supple, No JVD, Negative Carotid Bruits Lungs: Clear to auscultation, Normal air movement Cardiovascular: Regular rate, No murmurs Abdomen: Bowel Sounds Present, Soft, Non Tender Extremities: No edema, Capillary Refill Less than 3 Seconds Skin: No rashes, No breakdown Musculoskeletal: No Tenderness to Palpation of Joints or Extremities Neurological: Cranial nerves II-XII grossly intact Psych/Mental Status: Normal Affect, Appropriate, Alert and oriented to time, place, person, mood and affect Vital Signs Temp Pulse Resp BP Pulse Ox 97.9 F 82 18 154/74 H 98 01/07/18 08:00 01/07/18 08:00 01/07/18 08:00 01/07/18 08:00 01/07/18 08:00 Oxygen Delivery Method Room Air Weight: 90.8 kg Body Mass Index (BMI) 28.7 Intake and Output for Last 24 Hours 01/05/18 01/06/18 01/07/18 23:59 23:59 23:59 Intake Total 4424 / 4424 3566 / 3566 799 / 799 Output Total 4555 / 4555 5875 / 5875 1275 / 1275 Balance -131 / -131 -2309 / -2309 -476 / -476 Microbiology Past 72 Hours 01/04/18 13:00 Enteric Bacteriology - Final Stool 01/04/18 13:00 C. difficile DNA Amplification - Final Stool Laboratory Tests Past 24 Hrs 01/07/18 01/07/18 05:12 05:12 WBC 8.2 RBC 2.60 L Hgb 6.9 L Hct 21.8 L MCV 83.8 MCH 26.5 L MCHC 31.7 L RDW 12.4 RDW Differential 35.8 Plt Count 342 MPV 8.9 Immature Gran % (Auto) 0.200 Neut % (Auto) 80.6 H Lymph % (Auto) 9.0 L [place] % (Auto) 9.0 Eos % (Auto) 1.0 Baso % (Auto) 0.2 Absolute Neuts (auto) 6.6 Absolute Lymphs (auto) 0.73 L Total Counted Not Reportable Sodium 138 Potassium 3.9 Chloride 103 Carbon Dioxide 24.0 BUN 86 H Creatinine 8.37 H* Estim Creat Clear Calc 10.30 Est GFR (MDRD) Af Amer 9 L Est GFR (MDRD) Non-Af 7 L BUN/Creatinine Ratio 10.3 Glucose 101 Calcium 8.2 L Phosphorus 5.5 H Albumin 2.4 L POC Glucose 01/07/18 01/07/18 01/06/18 11:58 06:36 21:04 POC Glucose 162 H 107 122 H 01/06/18 17:03 POC Glucose 118 H Assessment/Plan Active and Suspected Problems ELMO (acute kidney injury) (Acute) Hyperkalemia (Acute) 1. ELMO - slight improvements in Renal function continue, he has good urinary output.Renal ultrasound was normal. IV fluids, renal consulted. Held metformin and GEE inhibitor at admission. Continue strict I/O, renal low K diet. -continues to have N/V -Dr. Blakely to trial the pt off fluids. -his labs are improving, but very slowly. -Phosphate binder started by nephro. 2. HTN - Persistently elevated. Started on hydralazine and norvasc. 3. DMt2 - hold metformin, hold levemir. has been low. Sliding scale coverage only. -Glucose control has been good. 4. Hyperkalemia - resolved 5. Iron deficiency anemia - Hgb 6.9. May need another unit of blood. -venofer x 3 s/p 1 unit PRBC. -Stool occult blood is negative -C diff and enteric panel negative. 6. Hypothyroidism - continue Synthroid 7. Anxiety/Depression - home meds. 8. HLD - on statin. 9. DAVID - CPAP at night. DVT ppx: SCDs Pt was seen by Lance Hernandez PA-C under the supervision of Dr. Crisostomo. <Liam Crisostomo - Last Filed: 01/07/18 14:15> - Physical Exam General: Alert, Cooperative HEENT: Atraumatic, Normocephalic Lungs: Clear to auscultation, Normal air movement, No rhonchi, No wheeze Cardiovascular: Regular rate, Regular Rhythm, Normal S1, Normal S2 Abdomen: Bowel Sounds Present, Soft, Non Tender, Non-Distended Extremities: No edema, No Calf Tenderness Skin: No rashes, No breakdown Psych/Mental Status: Normal Affect, Appropriate Vital Signs Temp Pulse Resp BP Pulse Ox 36.6 C 82 18 154/74 H 98 01/07/18 08:00 01/07/18 08:00 01/07/18 08:00 01/07/18 08:00 01/07/18 08:00 Oxygen Delivery Method Room Air Weight: 90.8 kg Body Mass Index (BMI) 28.7 Intake and Output for Last 24 Hours 01/05/18 01/06/18 01/07/18 23:59 23:59 23:59 Intake Total 4424 / 4424 3566 / 3566 799 / 799 Output Total 4555 / 4555 5875 / 5875 1275 / 1275 Balance -131 / -131 -2309 / -2309 -476 / -476 Microbiology Past 72 Hours 01/04/18 13:00 Enteric Bacteriology - Final Stool 01/04/18 13:00 C. difficile DNA Amplification - Final Stool Laboratory Tests Past 24 Hrs 01/07/18 01/07/18 05:12 05:12 WBC 8.2 RBC 2.60 L Hgb 6.9 L Hct 21.8 L MCV 83.8 MCH 26.5 L MCHC 31.7 L RDW 12.4 RDW Differential 35.8 Plt Count 342 MPV 8.9 Immature Gran % (Auto) 0.200 Neut % (Auto) 80.6 H Lymph % (Auto) 9.0 L [place] % (Auto) 9.0 Eos % (Auto) 1.0 Baso % (Auto) 0.2 Absolute Neuts (auto) 6.6 Absolute Lymphs (auto) 0.73 L Total Counted Not Reportable Sodium 138 Potassium 3.9 Chloride 103 Carbon Dioxide 24.0 BUN 86 H Creatinine 8.37 H* Estim Creat Clear Calc 10.30 Est GFR (MDRD) Af Amer 9 L Est GFR (MDRD) Non-Af 7 L BUN/Creatinine Ratio 10.3 Glucose 101 Calcium 8.2 L Phosphorus 5.5 H Albumin 2.4 L POC Glucose 02/13/18 02/13/18 02/12/18 11:58 06:36 21:04 POC Glucose 162 H 107 122 H 01/06/18 17:03 POC Glucose 118 H Assessment/Plan Patient seen and examined independently. Data reviewed. I agree with the above note by the physician tutoring assistant. 1. Acute kidney injury Fractional excretion of sodium is 9.22% Have uremic symptoms on admission subsequently resolved. IV fluids hep-locked today. Suspect prerenal plus ATN as etiology Continue to hold nephrotoxic agents If kidney function improves and patient is urine output stays good would anticipate patient being discharged on the . Follow-up with urology as outpatient as well and will determine if renal biopsy would be needed at a later point. 2. Non-anion gap metabolic acidosis Resolved Secondary to #1 Discussed with patient's son at bedside. Code Visit Inpatient E&M: 29235 Subs Hosp L2
--- NOTE | 2018-01-07 12:44 | PN_ITS ---
<Lance Hernandez - Last Filed: 01/07/18 12:41> Patient Problems: Active and Suspected Problems ELMO (acute kidney injury) (Acute) Hyperkalemia (Acute) Subjective: Pt had another episode of nausea and vomiting last night. None today. Good urinary output continues. No other complaints. - Physical Exam General: Alert, Oriented x3, Cooperative HEENT: Atraumatic, PERRLA, EOMI, Normocephalic Neck: Supple, No JVD, Negative Carotid Bruits Lungs: Clear to auscultation, Normal air movement Cardiovascular: Regular rate, No murmurs Abdomen: Bowel Sounds Present, Soft, Non Tender Extremities: No edema, Capillary Refill Less than 3 Seconds Skin: No rashes, No breakdown Musculoskeletal: No Tenderness to Palpation of Joints or Extremities Neurological: Cranial nerves II-XII grossly intact Psych/Mental Status: Normal Affect, Appropriate, Alert and oriented to time, place, person, mood and affect Vital Signs Temp Pulse Resp BP Pulse Ox 97.9 F 82 18 154/74 H 98 01/07/18 08:00 01/07/18 08:00 01/07/18 08:00 01/07/18 08:00 01/07/18 08:00 Oxygen Delivery Method Room Air Weight: 90.8 kg Body Mass Index (BMI) 28.7 Intake and Output for Last 24 Hours 01/05/18 01/06/18 01/07/18 23:59 23:59 23:59 Intake Total 4424 / 4424 3566 / 3566 799 / 799 Output Total 4555 / 4555 5875 / 5875 1275 / 1275 Balance -131 / -131 -2309 / -2309 -476 / -476 Microbiology Past 72 Hours 01/04/18 13:00 Enteric Bacteriology - Final Stool 01/04/18 13:00 C. difficile DNA Amplification - Final Stool Laboratory Tests Past 24 Hrs 01/07/18 01/07/18 05:12 05:12 WBC 8.2 RBC 2.60 L Hgb 6.9 L Hct 21.8 L MCV 83.8 MCH 26.5 L MCHC 31.7 L RDW 12.4 RDW Differential 35.8 Plt Count 342 MPV 8.9 Immature Gran % (Auto) 0.200 Neut % (Auto) 80.6 H Lymph % (Auto) 9.0 L [place] % (Auto) 9.0 Eos % (Auto) 1.0 Baso % (Auto) 0.2 Absolute Neuts (auto) 6.6 Absolute Lymphs (auto) 0.73 L Total Counted Not Reportable Sodium 138 Potassium 3.9 Chloride 103 Carbon Dioxide 24.0 BUN 86 H Creatinine 8.37 H* Estim Creat Clear Calc 10.30 Est GFR (MDRD) Af Amer 9 L Est GFR (MDRD) Non-Af 7 L BUN/Creatinine Ratio 10.3 Glucose 101 Calcium 8.2 L Phosphorus 5.5 H Albumin 2.4 L POC Glucose 01/07/18 01/07/18 01/06/18 11:58 06:36 21:04 POC Glucose 162 H 107 122 H 01/06/18 17:03 POC Glucose 118 H Assessment/Plan Active and Suspected Problems ELMO (acute kidney injury) (Acute) Hyperkalemia (Acute) 1. ELMO - slight improvements in Renal function continue, he has good urinary output.Renal ultrasound was normal. IV fluids, renal consulted. Held metformin and GEE inhibitor at admission. Continue strict I/O, renal low K diet. -continues to have N/V -Dr. Blakely to trial the pt off fluids. -his labs are improving, but very slowly. -Phosphate binder started by nephro. 2. HTN - Persistently elevated. Started on hydralazine and norvasc. 3. DMt2 - hold metformin, hold levemir. has been low. Sliding scale coverage only. -Glucose control has been good. 4. Hyperkalemia - resolved 5. Iron deficiency anemia - Hgb 6.9. May need another unit of blood. -venofer x 3 s/p 1 unit PRBC. -Stool occult blood is negative -C diff and enteric panel negative. 6. Hypothyroidism - continue Synthroid 7. Anxiety/Depression - home meds. 8. HLD - on statin. 9. DAVID - CPAP at night. DVT ppx: SCDs Pt was seen by Lance Hernandez PA-C under the supervision of Dr. Crisostomo. <Liam Crisostomo - Last Filed: 01/07/18 14:15> - Physical Exam General: Alert, Cooperative HEENT: Atraumatic, Normocephalic Lungs: Clear to auscultation, Normal air movement, No rhonchi, No wheeze Cardiovascular: Regular rate, Regular Rhythm, Normal S1, Normal S2 Abdomen: Bowel Sounds Present, Soft, Non Tender, Non-Distended Extremities: No edema, No Calf Tenderness Skin: No rashes, No breakdown Psych/Mental Status: Normal Affect, Appropriate Vital Signs Temp Pulse Resp BP Pulse Ox 36.6 C 82 18 154/74 H 98 01/07/18 08:00 01/07/18 08:00 01/07/18 08:00 01/07/18 08:00 01/07/18 08:00 Oxygen Delivery Method Room Air Weight: 90.8 kg Body Mass Index (BMI) 28.7 Intake and Output for Last 24 Hours 01/05/18 01/06/18 01/07/18 23:59 23:59 23:59 Intake Total 4424 / 4424 3566 / 3566 799 / 799 Output Total 4555 / 4555 5875 / 5875 1275 / 1275 Balance -131 / -131 -2309 / -2309 -476 / -476 Microbiology Past 72 Hours 01/04/18 13:00 Enteric Bacteriology - Final Stool 01/04/18 13:00 C. difficile DNA Amplification - Final Stool Laboratory Tests Past 24 Hrs 01/07/18 01/07/18 05:12 05:12 WBC 8.2 RBC 2.60 L Hgb 6.9 L Hct 21.8 L MCV 83.8 MCH 26.5 L MCHC 31.7 L RDW 12.4 RDW Differential 35.8 Plt Count 342 MPV 8.9 Immature Gran % (Auto) 0.200 Neut % (Auto) 80.6 H Lymph % (Auto) 9.0 L [place] % (Auto) 9.0 Eos % (Auto) 1.0 Baso % (Auto) 0.2 Absolute Neuts (auto) 6.6 Absolute Lymphs (auto) 0.73 L Total Counted Not Reportable Sodium 138 Potassium 3.9 Chloride 103 Carbon Dioxide 24.0 BUN 86 H Creatinine 8.37 H* Estim Creat Clear Calc 10.30 Est GFR (MDRD) Af Amer 9 L Est GFR (MDRD) Non-Af 7 L BUN/Creatinine Ratio 10.3 Glucose 101 Calcium 8.2 L Phosphorus 5.5 H Albumin 2.4 L POC Glucose 02/13/18 02/13/18 02/12/18 11:58 06:36 21:04 POC Glucose 162 H 107 122 H 01/06/18 17:03 POC Glucose 118 H Assessment/Plan Patient seen and examined independently. Data reviewed. I agree with the above note by the physician it administrative assistant. 1. Acute kidney injury * Fractional excretion of sodium is 9.22% * Have uremic symptoms on admission subsequently resolved. * IV fluids hep-locked today. * Suspect prerenal plus ATN as etiology * Continue to hold nephrotoxic agents * If kidney function improves and patient is urine output stays good would anticipate patient being discharged on the . * Follow-up with urology as outpatient as well and will determine if renal biopsy would be needed at a later point. 2. Non-anion gap metabolic acidosis * Resolved * Secondary to #1 Discussed with patient's son at bedside. Code Visit Inpatient E&M: 07038 Subs Hosp L2
[2018-01-07 16:10] LABS: PROEL- A/G Ratio 0.8 (0.7-1.7); PROEL- Albumin 2.6 g/dL (2.9-4.4); PROEL- Alpha-1 Globulin 0.4 g/dL (0.0-0.4); PROEL- Alpha-2 Globulin 1.2 g/dL (0.4-1.0); PROEL- Beta Globulin 0.9 g/dL (0.7-1.3); PROEL- Globulin, Total 3.4 g/dL (2.2-3.9)
[2018-01-07 17:36] LABS: Bedside Glucose 120 mg/dL (70-110)
[2018-01-07 22:26] LABS: Bedside Glucose 129 mg/dL (70-110)
[2018-01-07] MEDS: Atorvastatin Calcium 10 MG Tablet PO (22:26)
[2018-01-08 03:51] VITALS: BP 147/65; PULSE 83; RESP 18; TEMP 36.8; O2SAT 98
[2018-01-08 06:24] LABS: Absolute Lymphocyte Count 0.95 X10^3/ul (0.83-4.51); Absolute Neutrophil Count 7.5 X10^3/uL (2.0-7.7); Basophil# 0.02 X10^3/uL; Basophil% 0.2 % (0-1); Eosinophil# 0.16 X10^3/uL; Eosinophils% 1.7 % (0-5); Hematocrit 22.7 % (40-54); Hemoglobin 7.2 g/dl (13.0-16.5); Lymphocyte # 0.95 X10^3/ul (4.0); Mean Corp Hgb Conc 31.7 g/gl (32-36); Mean Corpuscular Hgb 26.8 pg (27.0-32.0); Mean Corpuscular Volume 84.4 fL (80-94); Mean Platelet Vol. 9.1 fl (6.2-12.0); Monocyte# 0.85 X10^3/uL; Monocyte% 8.9 % (0-10); Neutrophil # 7.51 X10^3/uL (2.7-7.7); Neutrophil % 78.9 % (47-70); Platelet Count 367 K/mm3 (150-450); RBC Distribution Width CV 12.7 % (11.6-14.6); RBC Distribution Width SD 37.1 fl (35.1-43.9); Red Blood Count 2.69 M/mm3 (4.6-6.2); White Blood Count 9.5 K/mm3 (4.4-11.0)
[2018-01-08 06:28] LABS: POSITIVE COUNT NO; POSITIVE DIFFERENTIAL NO; POSITIVE MORPHOLOGY NO
[2018-01-08 06:37] VITALS: BP 143/70; PULSE 81
[2018-01-08] MEDS: Levothyroxine 150 MCG Tablet PO (06:37)
[2018-01-08 06:51] LABS: Bedside Glucose 117 mg/dL (70-110)
[2018-01-08 07:22] LABS: Albumin, Serum 2.4 g/dL (3.2-5.0); BUN 79 mg/dL (7-18); BUN/Creat Ratio 9.5 RATIO (10-20); Calcium,Total 8.3 mg/dL (8.5-10.1); Chloride 103 mmol/L (98-107); Creatinine, Serum 8.31 mg/dL (0.70-1.30); EST Glomerular Filtration Rate 7 mL/min (>60); Est Glom Filt Rate - Afr Amer 9 mL/min (>60); Estimated Creatinine Clearance 10.37 ml/min; Glucose 98 mg/dL (74-106); Potassium 4.1 mmol/L (3.5-5.1); Sodium Level 139 mmol/L (136-145)
[2018-01-08] MEDS: SEVELAMER CARBONATE 800 MG TABLET PO ×2 (08:09→11:47)
[2018-01-08] MEDS: Citalopram 20 MG Tablet PO (08:09)
[2018-01-08] MEDS: amLODIPine 10 MG Tablet PO (08:09)
[2018-01-08 08:15] VITALS: BP 166/76; PULSE 81; RESP 18; TEMP 36.7; O2SAT 98
[2018-01-08 12:06] LABS: Bedside Glucose 161 mg/dL (70-110)
--- NOTE | 2018-01-08 12:46 | PCM.PN.REN ---
Patient Problems: Active and Suspected Problems ELMO (acute kidney injury) (Acute) Hyperkalemia (Acute) Subjective: no further nausea, vomiting. Urine output good. Had good BM this morning. Asked if he can go home. Creatinine essentially unchanged at 8.3. Protein electrophoresis no Mspike. will check labs every three days as outpt and follow up in my office next week. - Physical Exam General: Alert, Oriented x3, Cooperative Lungs: Clear to auscultation Cardiovascular: Regular rate, No rub noted Abdomen: Bowel Sounds Present, Soft, Non Tender, Non-Distended Extremities: No edema Skin: No rashes Neurological: - - no tremor Psych/Mental Status: Normal Affect, Appropriate, Alert and oriented to time, place, person, mood and affect Vital Signs Temp Pulse Resp BP Pulse Ox 98.1 F 81 18 166/76 H 98 01/08/18 08:15 01/08/18 08:15 01/08/18 08:15 01/08/18 08:15 01/08/18 08:15 Oxygen Delivery Method Room Air Weight: 90.8 kg Body Mass Index (BMI) 28.7 Intake and Output for Last 24 Hours 01/06/18 01/07/18 01/08/18 23:59 23:59 23:59 Intake Total 3566 / 3566 2299 / 2299 880 / 880 Output Total 5875 / 5875 2775 / 2775 2725 / 2725 Balance -2309 / -2309 -476 / -476 -1845 / -1845 Laboratory Tests Past 24 Hrs 01/04/18 01/08/18 01/08/18 01:00 05:05 05:05 WBC 9.5 RBC 2.69 L Hgb 7.2 L Hct 22.7 L MCV 84.4 MCH 26.8 L MCHC 31.7 L RDW 12.7 RDW Differential 37.1 Plt Count 367 MPV 9.1 Immature Gran % (Auto) 0.300 Neut % (Auto) 78.9 H Lymph % (Auto) 10.0 L [place] % (Auto) 8.9 Eos % (Auto) 1.7 Baso % (Auto) 0.2 Absolute Neuts (auto) 7.5 Absolute Lymphs (auto) 0.95 Total Counted Not Reportable Sodium 139 Potassium 4.1 Chloride 103 Carbon Dioxide 21.0 BUN 79 H Creatinine 8.31 H* Estim Creat Clear Calc 10.37 Est GFR (MDRD) Af Amer 9 L Est GFR (MDRD) Non-Af 7 L BUN/Creatinine Ratio 9.5 L Glucose 98 Calcium 8.3 L Phosphorus 5.0 H Total Protein (PEP) 6.0 Albumin 2.4 L Albumin (PEP) 2.6 L Globulin (PEP) 3.4 Albumin/Globulin (PEP) 0.8 Srsfn-8-Raeobiqpl 0.4 Unjgh-9-Shhgrzmwd 1.2 H Beta Globulins 0.9 Gamma Globulins 1.0 M-Liam PEP Note Comment PEP Interpretation Comment Urine Immunofixation Comment POC Glucose 01/08/18 01/08/18 01/07/18 11:45 06:40 21:48 POC Glucose 161 H 117 H 129 H 01/07/18 16:30 POC Glucose 120 H Assessment/Plan Active and Suspected Problems ELMO (acute kidney injury) (Acute) Hyperkalemia (Acute) 1. ELMO without uremic symptoms. Creatinine unchanged at 8.3, nonoliguric. Will hold on dialysis since he is compensating well and have labs scheduled as outpt with follow up with me next week. Protein electrophoresis did not show M spike. 2. NAG Metabolic acidosis stable 3. Hyperkalemia resolved. 4. T2DM discontinue metformin 5. HTN stable 6. Anemia iron deficient hgb stable at 7.2 s/p epo, iv iron 7. Continue binders for elevated phos
--- NOTE | 2018-01-08 13:53 | DCINST_ITS ---
- Discharge Diagnoses Current Active Problems: Current Active and Chronic Problems ELMO (acute kidney injury) (Acute) Hyperkalemia (Acute) You will use the following diet at home:: Calorie/Carbohydrate Controlled ( specify 1200, 1400, etc) - 1800 linda day Your food should be the consistency of: Regular Your liquids should be the consistency of: Regular/Thin Discharge Activity: Return to Normal Activity Allergies/Adverse Reactions: Allergies No Known Allergies Allergy (Verified 10/28/15 18:31) Medications to take at Discharge Levothyroxine [Synthroid] 150 mcg PO DAILY 10/28/15 Simvastatin [Zocor] 20 mg PO QHS 10/28/15 Citalopram Hydrobromide [Citalopram HBr] 40 mg PO DAILY 01/03/18 Amlodipine [Norvasc] 10 mg PO DAILY #30 tab 01/08/18 Ergocalciferol [Vitamin D] 50,000 unit PO Q7D capsule 01/08/18 HydrALAZINE [Apresoline] 25 mg PO TID #90 tab 01/08/18 Sevelamer Carbonate [Renvela] 800 mg PO TID #90 tab 01/08/18 The following prescriptions were given: Amlodipine [Norvasc] 10 mg PO DAILY #30 tab HydrALAZINE [Apresoline] 25 mg PO TID #90 tab Sevelamer Carbonate [Renvela] 800 mg PO TID #90 tab Primary Care Physician: Marques Caba MD [Primary Care Provider] - Please follow up with your Primary Care Physician in: 2 weeks Please Follow Up With: Vannessa Blakely DO When: 1 week Proposed Discharge Date: 01/08/18
--- NOTE | 2018-01-08 13:54 | PCM.DC.SUM ---
<Lance Hernandez - Last Filed: 01/08/18 13:54> Discharge Date and Diagnosis Date of Admission: 01/03/18 Date of Discharge: 01/08/18 - Primary Discharge Diagnosis Active and Suspected Problems ELMO (acute kidney injury) (Acute) Hyperkalemia (Acute) Normal anion gap metabolic acidosis DMt2 HTN Hyperphosphatemia Hypothyroidism Microcytic anemia Anxiety/Depression HLD DAVID - Secondary Discharge Diagnosis Chronic Problems Hyperlipidemia (Chronic) Hypothyroidism (Chronic) Hypertension (Chronic) Type II diabetes mellitus (Chronic) Hospital Course and Treatment Imaging Results: US/Kidney and Bladder IMPRESSION: Normal ultrasound of the kidneys and urinary bladder. Consultations: Vannessa Blakely, nephrology Operations: None Procedures: None Summary of Care Provided: Physical exam on day of discharge: See daily progress note Hospital course The patient is a 57 year old M with a history of type 2 diabetes, hypothyroidism, hyperlipidemia, hypertension, anxiety and depression who presented to the hospital with generalized malaise for about 1 month, with multiple episodes of nausea and vomiting. He was found to have severely elevated BUN and creatinine with BUN of 95 and creatinine of 9.91 with no history of renal dysfunction. He was admitted to the hospital for acute kidney failure and Dr. Vannessa Blakely from nephrology was consulted. He had a renal ultrasound which was negative. He was placed on IV fluids and supportive care. His metformin was held, his insulin was also held as he was hypoglycemic on presentation. His creatinine was slow to improve on IV fluids. He was given multiple rounds of Kayexalate for hyperkalemia. He was started on Renvela for hyperphosphatemia as well. He was felt to have normal anion gap metabolic acidosis and was placed on a bicarb drip. He also had significant anemia with poor iron levels, TIBC, and binding capacity, he was given 1 unit of packed red blood cells during his stay and 3 doses of Venofer, 1 dose of EPO. His symptoms improved. He had intermittent episodes of nausea and vomiting. He is maintained on IV fluids for several days with gradually improving renal function. He maintained good urinary output throughout his stay. He was not felt to require dialysis at this time despite his severely elevated BUN and creatinine. He had poorly controlled hypertension and was started on hydralazine and Norvasc while he was here, his lisinopril was discontinued due to his worsening renal failure. He was maintained on only sliding scale insulin and he had good glycemic control without his home Levemir or metformin. He was taken off IV fluids and his renal function remained stable and his urinary output remained stable. He had no further nausea or vomiting, and it was decided that he would be discharged home with close follow-up with nephrology in 1 week, he will need to have his BMP drawn as directed by nephrology prior to his appointment. At this time we will not restart his diabetic medications and have him stick to a low-carb diet and follow-up as an outpatient. He was written for Norvasc, hydralazine, Renvela. He is discharged home in stable condition. This patient was seen by Lance Hernandez PA-C under the supervision of Doctor Andressa. [] Discharge Diet: 1800 Calorie Control Diet Discharge Activity: Return to Normal Activity Home Medications: Medications to take at Discharge Levothyroxine [Synthroid] 150 mcg PO DAILY 10/28/15 Simvastatin [Zocor] 20 mg PO QHS 10/28/15 Citalopram Hydrobromide [Citalopram HBr] 40 mg PO DAILY 01/03/18 Amlodipine [Norvasc] 10 mg PO DAILY #30 tab 01/08/18 Ergocalciferol [Vitamin D] 50,000 unit PO Q7D capsule 01/08/18 HydrALAZINE [Apresoline] 25 mg PO TID #90 tab 01/08/18 Ondansetron HCl [Zofran] 4 mg PO Q6H PRN PRN #8 tab 01/08/18 Sevelamer Carbonate [Renvela] 800 mg PO TID #90 tab 01/08/18 Following Prescrptions Were Given to Patient: Ondansetron HCl [Zofran] 4 mg PO Q6H PRN PRN #8 tab PRN Reason: Nausea Amlodipine [Norvasc] 10 mg PO DAILY #30 tab HydrALAZINE [Apresoline] 25 mg PO TID #90 tab Sevelamer Carbonate [Renvela] 800 mg PO TID #90 tab Primary Care Physician: Marques Caba MD [Primary Care Provider] - Please follow up with your Primary Care Physician in: 2 weeks Please Follow Up With: Vannessa Blakely DO When: 1 week Disposition: Home Minutes spent on discharge:: 35 Patient Condition:: Stable Meaningful Use Info Meaningful Use Diagnoses (Choose all that apply): None applicable <Liam Crisostomo - Last Filed: 01/08/18 15:53> Discharge Date and Diagnosis - Secondary Discharge Diagnosis Chronic Problems Hyperlipidemia (Chronic) Hypothyroidism (Chronic) Hypertension (Chronic) Type II diabetes mellitus (Chronic) Hospital Course and Treatment Operations: None Procedures: None Summary of Care Provided: Patient seen and examined in family. 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 37-year-old white male presents with weakness and malaise. Patient came with a creatinine of 9.91. Unclear etiology of his renal failure. Patient's fractional excretion of sodium was 9%. Both be prerenal and possibly acute tubular necrosis. Patient was seen in consultation by Dr. Blakely, of nephrology, who recommended conservative management. Patient was on IV fluids and his creatinine did improve. His creatinine today was 8.31. Patient will have outpatient lab work and follow-up with nephrology as outpatient. It is possible patient may need a biopsy but that can be determined at a later time depending on how his kidney function improves. [] Discharge Diet: 1800 Calorie Control Diet Discharge Activity: Return to Normal Activity Disposition: Home Patient Condition:: Stable Meaningful Use Info Meaningful Use Diagnoses (Choose all that apply): None applicable Code Visit Inpatient E&M: 48073 Disch Hosp
[2018-01-08 14:30] VITALS: BP 148/79; PULSE 82; RESP 18; TEMP 36.7; O2SAT 98
[2018-01-08 15:02] VITALS: BP 148/79; PULSE 82; RESP 18; TEMP 36.7; O2SAT 98
== END 2018-01-08 15:02 | disposition home or self-care (01) | DRG 683 ==
LOC: ED 12:58 → MS3 15:26
PROVIDERS: Internal Medicine Nephrology; Physician Assistant; Admitting Provider Internal Medicine; Emergency Provider Emergency Medicine; Family Provider Family Medicine; PCP Family Medicine
DX: N17.9 Acute kidney failure, unspecified (principal); E87.2 Acidosis; E83.39 Other disorders of phosphorus metabolism; E87.5 Hyperkalemia; D50.9 Iron deficiency anemia, unspecified; E78.5 Hyperlipidemia, unspecified; G47.33 Obstructive sleep apnea (adult) (pediatric); I10 Essential (primary) hypertension; F41.9 Anxiety disorder, unspecified; F32.9 Major depressive disorder, single episode, unspecified; E03.9 Hypothyroidism, unspecified; Z79.899 Other long term (current) drug therapy
CPT/HCPCS: 36415; 76770; 80048; 80053; 80069; 81001; 82274; 82306; 82570; 82728; 82962; 83540; 83550; 83605; 83970; 84156; 84165; 84300; 85025; 85610; 86335; 86850; 86900; 86920; 86922; 87493; 87506; 90471; 93005; 97802; 99285; J0885; J1756; J7030; J7040; P9016; A4216; J2405

== ENCOUNTER → 2018-01-10 09:36 | Outpatient (CLI) | payer BC, SELFPAY ==
[2018-01-10 10:45] LABS: Hematocrit 24.7 % (40-54); Hemoglobin 7.8 g/dl (13.0-16.5); Mean Corp Hgb Conc 31.6 g/gl (32-36); Mean Corpuscular Hgb 27.2 pg (27.0-32.0); Mean Corpuscular Volume 86.1 fL (80-94); Mean Platelet Vol. 9.2 fl (6.2-12.0); Platelet Count 395 K/mm3 (150-450); RBC Distribution Width SD 38.7 fl (35.1-43.9); Red Blood Count 2.87 M/mm3 (4.6-6.2); White Blood Count 10.7 K/mm3 (4.4-11.0)
[2018-01-10 10:46] LABS: Scan Indicated on CBC? Y/N NO
[2018-01-10 11:31] LABS: Albumin, Serum 2.8 g/dL (3.2-5.0); BUN 84 mg/dL (7-18); BUN/Creat Ratio 9.2 RATIO (10-20); Calcium,Total 8.6 mg/dL (8.5-10.1); Chloride 100 mmol/L (98-107); Creatinine, Serum 9.13 mg/dL (0.70-1.30); EST Glomerular Filtration Rate 6 mL/min (>60); Est Glom Filt Rate - Afr Amer 8 mL/min (>60); Glucose 110 mg/dL (74-106); Phosphorus 5.7 mg/dL (2.5-4.9); Potassium 4.1 mmol/L (3.5-5.1); Sodium Level 137 mmol/L (136-145)
== END ==
PROVIDERS: Family Provider Family Medicine; PCP Family Medicine; Visit Provider Internal Medicine Nephrology
DX: N17.9 Acute kidney failure, unspecified (principal); D64.89 Other specified anemias
CPT/HCPCS: 36415; 80069; 85027

== ENCOUNTER → 2018-01-13 10:05 | Outpatient (CLI) | payer BC, SELFPAY ==
[2018-01-13 11:22] LABS: Hematocrit 24.1 % (40-54); Hemoglobin 7.5 g/dl (13.0-16.5); Mean Corp Hgb Conc 31.1 g/gl (32-36); Mean Corpuscular Hgb 26.8 pg (27.0-32.0); Mean Corpuscular Volume 86.1 fL (80-94); Mean Platelet Vol. 9.4 fl (6.2-12.0); Platelet Count 400 K/mm3 (150-450); RBC Distribution Width CV 13.3 % (11.6-14.6); RBC Distribution Width SD 40.3 fl (35.1-43.9); White Blood Count 11.1 K/mm3 (4.4-11.0)
[2018-01-13 11:28] LABS: International Normalized Ratio 1.3; Prothrombin Time (Protime)PT. 15.6 SECONDS (11.7-14.9)
[2018-01-13 11:29] LABS: Partial Thromboplast Time 41.1 Seconds (24.1-36.2)
[2018-01-13 11:37] LABS: Scan Indicated on CBC? Y/N NO
[2018-01-13 11:54] LABS: Albumin, Serum 2.8 g/dL (3.2-5.0); BUN 86 mg/dL (7-18); BUN/Creat Ratio 8.4 RATIO (10-20); Calcium,Total 8.4 mg/dL (8.5-10.1); Chloride 101 mmol/L (98-107); EST Glomerular Filtration Rate 6 mL/min (>60); Est Glom Filt Rate - Afr Amer 7 mL/min (>60); Glucose 206 mg/dL (74-106); Phosphorus 6.3 mg/dL (2.5-4.9); Potassium 4.3 mmol/L (3.5-5.1); Sodium Level 135 mmol/L (136-145)
[2018-01-14 16:09] LABS: HEPATITIS B SURFACE AG Negative (Negative); Hepatitis A AB, Total Negative (Negative); Hepatitis B Core AB IgM Negative (Negative); Hepatitis B Core Ab Total Negative (Negative); Hepatitis C Ab 0.1 s/co ratio (0.0-0.9)
[2018-01-15 13:45] LABS: Hep B Surface Antibodies Non Reactive (.)
[2018-01-15 14:41] LABS: Hepatitis A IgM Antibody Positive (Negative)
== END ==
PROVIDERS: Family Provider Family Medicine; PCP Family Medicine; Visit Provider Internal Medicine Nephrology
DX: N17.9 Acute kidney failure, unspecified (principal); D64.89 Other specified anemias
CPT/HCPCS: 36415; 80069; 85027; 85610; 85730; 86704; 86705; 86706; 86708; 86709; 86803; 87340

== ENCOUNTER 2018-01-14 08:13 | Day surgery (SDC) | payer BC, SELFPAY ==
[2018-01-14] VITALS (7 sets, daily range): BP systolic 124–158; BP diastolic 68–73; PULSE 76–84; RESP 14–18; TEMP 36.4–36.7; O2SAT 91–100; BMI 28.7
[2018-01-14 09:01] LABS: Bedside Glucose 113 mg/dL (70-110)
[2018-01-14] MEDS: Heparin 10,000 UNITS/10 ML Vial 10000 UNITS (09:43)
[2018-01-14] MEDS: Bupivacaine 0.25% 30 ML Vial (09:43)
[2018-01-14] MEDS: Cefazolin 2 GM in 0.9% Normal Saline 100 ML IV (09:58)
--- NOTE | 2018-01-14 10:06 | RAD_ITS ---
STUDY: X-RAY CHEST REASON FOR EXAM: Male, 57 years old. Hemodialysis catheter placement. TECHNIQUE: Single AP portable view of the chest. COMPARISON: Comparison is made with prior study dated October 30, 2015. FINDINGS: A right-sided double lumen catheter has been placed. The tip is at the junction of superior vena cava and right atrium. Minimal increased markings at the left lung base suggestive of atelectasis. The previously seen left midlung infiltrate has cleared. There is no demonstrated pleural abnormality. Normal size heart. Normal mediastinum and kieran. Normal visualized pulmonary arteries. Normal visualized aortic arch and descending thoracic aorta. Normal visualized thoracic spine. Normal visualized ribs, clavicles, and shoulders. There is no demonstrated abnormality of the visualized soft tissue structures of the upper abdomen. RAD/Chest 1 View (Portable) IMPRESSION: The tip of the right double-lumen catheter is at the junction of superior vena cava and right atrium. Electronically Signed: Godwin Palmer MD at 12:20 EST Tel [phone], Service support ,
--- NOTE | 2018-01-14 10:11 | DCINST_ITS ---
Discharge Diet: Renal Diet Discharge Activity: Return to Normal Activity, May Not Shower Additional Activity Instructions:: May not drive, work with heavy equipment, or sign legal documents for [address]. [address] if you are no longer taking narcotic pain medications. You may drive when you are no longer taking pain medications. Additional Dressing/Incision Instructions:: Please leave the bandage in place. The dialysis center will assist with care. Allergies/Adverse Reactions: Allergies No Known Allergies Allergy (Verified 01/13/18 14:13) Medications to take at Discharge Levothyroxine [Synthroid] 150 mcg PO DAILY 10/28/15 Simvastatin [Zocor] 20 mg PO QHS 10/28/15 Citalopram Hydrobromide [Citalopram HBr] 40 mg PO DAILY 01/03/18 Amlodipine [Norvasc] 10 mg PO DAILY #30 tab 01/08/18 HydrALAZINE [Apresoline] 25 mg PO TID #90 tab 01/08/18 Sevelamer Carbonate [Renvela] 800 mg PO TID #90 tab 01/08/18 Hydrocodone Bitart/Apap 5-325 [[place] 5MG-325MG] 1 tablet PO Q6H PRN PRN #6 tablet 01/14/18 The following prescriptions were given: Hydrocodone Bitart/Apap 5-325 [[place] 5MG-325MG] 1 tablet PO Q6H PRN PRN #6 tablet PRN Reason: Pain Primary Care Physician: Marques Caba MD [Primary Care Provider] - Please Follow Up With: Pedro Owens MD - [phone] When: Please plan to follow up in 14 days in the office. After vein mapping
--- NOTE | 2018-01-14 10:42 | OP.PCM_ITS ---
Problem List (1) Chronic renal failure, stage 4 (severe) Status: Acute Report of Operation Date of Procedure: 01/14/18 Pre-Operative Diagnosis: Chronic renal insufficiency in need of hemodialysis access in the form of hemodialysis catheters Post-Operative Diagnosis: Same Surgery/Procedure Performed:: Right internal jugular 19 cm pre-curved hemodialysis catheter placement. Palindrome 19 cm pre-curved. Reference # [id number]. Lot #[id number] Description of Surgical Findings:: Amount and informed consent was obtained. 57-year-old gent was taken to the operating room. He was placed on the table. He underwent monitored anesthesia care local anesthetic. Ancef 2 g given preoperatively. The right neck and chest were sterilely prepped and draped. Under ultrasound guidance 1% lidocaine mixed 50-50 with 0.5% Marcaine was used as a local anesthetic. A total of 15 cc was used. Local was instilled under ultrasound guidance. Micropuncture needle was used to gain access the right internal jugular vein. Micropuncture wire inserted. Local was instilled down upon the chest wall. The 19 cm pre-curved palindrome catheter was tunneled from the chest to the neck site. Fluoroscopy demonstrated good positioning. Micropuncture sheath was placed over the wire. An 035 J-wire was inserted. Serial dilatation was performed. The sheath dilator was inserted. The wire and the dilator were removed. The catheter was advanced to the sheath. The sheath was split. The catheter was positioned at the SVC atrial junction. The catheter was secured skin with interrupted 3-0 nylon. Next site was closed with interrupted 5-0 Vicryl subdermal stitch. Telfa and OpSite dressings applied to the neck. A silver and OpSite dressing was applied to the catheter exit site. Counts correct blood loss minimal. No apparent complications the patient was taken to the recovery or insect condition. Stat portable chest x-ray is pending. Pedro Owens M.D., F.A.C.S. Type of Anesthesia:: Local MAC
== END 2018-01-14 12:35 | disposition home or self-care (01) ==
LOC: SDC 08:14 → AC 08:14
PROVIDERS: Family Provider Family Medicine; PCP Family Medicine; Visit Provider Surgery
PROC: (CPT 36558; principal; 2018-01-14 09:45)
DX: N17.9 Acute kidney failure, unspecified (principal); I12.9 Hypertensive chronic kidney disease with stage 1 through stage 4 chronic kidney disease, or unspecified chronic kidney disease; E11.22 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 diabetic chronic kidney disease; N18.4 Chronic kidney disease, stage 4 (severe); Z99.2 Dependence on renal dialysis; G47.30 Sleep apnea, unspecified; E03.9 Hypothyroidism, unspecified; E78.5 Hyperlipidemia, unspecified; Z79.899 Other long term (current) drug therapy; E87.5 Hyperkalemia; Z87.01 Personal history of pneumonia (recurrent)
CPT/HCPCS: 36558; 71045; 76000; 82962; C1750

== ENCOUNTER → 2018-01-20 08:07 | Outpatient (CLI) | payer BC, SELFPAY ==
[2018-01-20 12:45] VITALS: BP 120/60; PULSE 89; RESP 18; TEMP 37; O2SAT 98; BMI 28.7
[2018-01-20 13:26] VITALS: BP 131/52; PULSE 86; RESP 18; TEMP 37.2; O2SAT 99
[2018-01-20 14:26] VITALS: BP 125/63; PULSE 81; RESP 18; TEMP 36.6; O2SAT 98
[2018-01-20 15:24] VITALS: BP 134/64; PULSE 80; RESP 18; TEMP 36.9; O2SAT 100
== END ==
LOC: LABSPEC 08:09 → MEDOUTP 11:04
PROVIDERS: Family Provider Family Medicine; PCP Family Medicine; Visit Provider Internal Medicine Nephrology
DX: N17.9 Acute kidney failure, unspecified (principal); D63.8 Anemia in other chronic diseases classified elsewhere; R53.83 Other fatigue
CPT/HCPCS: 36415; 36430; 85018; 86850; 86900; 86920; 86922; J7040; P9016; A4216

== ENCOUNTER → 2018-01-21 08:02 | Outpatient (CLI) | payer BC, SELFPAY ==
--- NOTE | 2018-01-20 | KI_PTH ---
PATIENT: ROBERT DIEZ LOC: CT U#:[id number] AGE/SX: 65/M ROOM: RE01/21/[address]: Dr. Vannessa Blakely DO : 1960 BED: DIS: SPEC #: [id number] RECD: 01/21/18 12:21 STATUS: REY BRUCE #: [id number] BILLIE: 01/20/18 00:[address]: Vannessa Blakely DEPT: SURGICAL PATHOLOGY RECD BY: Christiano Flores ENTERED: 01/21/18 12:22 SP TYPE: KIDNEY BX DEDE DR: Dr. Marques Caba MD Tissues: Kidney, NOS Procedures: Electron Microscopy (ACH) Fluorescent Antibody (ACH) Sp St Grp II Kidney (ACH) Kidney Biopsy (ACH) HEADER OPERATION: CT-guided kidney biopsy, left PRE-OP DIAGNOSIS: Proteinuria, diabetes, poor compliance TISSUE SUBMITTED: 18 gauge cores x4, left kidney MICROSCOPIC DIAGNOSIS Left kidney, CT-guided biopsies: Renal tissue showing thickened basement membrane, rare micronodular glomerular changes, focal glomerulosclerosis, severe interstitial chronic inflammation, tubule atrophy and arteriosclerotic changes; see comment. COMMENT Case discussed with Dr. Blakely on 01/22/[address] Bennett. Correlate clinically with medical history and onset of symptoms. Findings compatible with marked chronic renal disease in the context of diabetes. No evidence of an acute inflammatory or immune-mediated process. MICROSCOPIC DESCRIPTION Light microscopy examined with H & E, PAS, Powell sliver and trichrome stains yields 18 glomeruli, of which 5 are globally sclerosed. The remaining glomeruli show significant mesangial expansion and thickening of capillary loops. There is rare micronodular formation noted. There are focal segmental sclerotic changes. There is no evidence of significant glomerular inflammation or crescent formation. There are diffuse sheets of lymphoplasmacytic cells noted in the interstitium. There are focal lymphoid aggregates noted. There is marked eosinophilia throughout the chronic inflammatory infiltrate. Trichrome stain highlights mild and patchy interstitial fibrosis changes. There are significant areas of tubule thickening as well as tubular atrophy. There are patchy areas of dilated tubules noted. There are focal pigment-laden tubules. There is focal Tamm-Horsfall protein in tubules. There is a paucity of tubules uninvolved by chronic atrophic changes. The arterioles examined show marked intimal layer thickening with no evidence of inflammation or vasculitis. Medullary tissue evaluated shows significant chronic inflammation with patchy edema. There is rare fibrous and fibroadipose tissue noted. Congo red stain performed is negative for any evidence of amyloid deposition. Special stain positive controls are reviewed and deemed adequate. IMMUNOFLUORESCENCE: There are 5 glomeruli for immunofluorescence evaluation, of which 1 is globally sclerosed. IgG shows a 1 to 2+ confluent mesangial signal. C3 shows a 1+ focal granular signal in few glomeruli. IgA, IgM, C1q, kappa and lambda are negative. Albumin and fibrin shows only background signal staining. Immunofluorescence positive and negative controls are reviewed and deemed adequate. ELECTRON MICROSCOPY: Ultrastructure evaluation yields 2 glomeruli, which both show evidence of mesangial expansion and sclerotic changes to a variable degree. The glomerular basement membranes show variable convolution/folding as well as thickening. There are foci of membranous protein trapping, but no discrete evidence of membranous or mesangial deposits. Podocyte foot processes appear overall intact with rare microvillous changes and effacement. The tubules seen show mild degenerative changes. GROSS DESCRIPTION The specimen is sent entirely to [facility] for diagnosis. Received in saline in a test tube are four cores of tripathi tissue measuring 2 cm, 1.8 cm, 1.5 cm and 1.4 cm. The specimen is divided for light microscopy, immunofluorescence and electron microscopy.
--- NOTE | 2018-01-21 08:08 | CT_ITS ---
PROCEDURE: CT GUIDED PERCUTANEOUS KIDNEY BIOPSY. DATE: January 21, 2018. INDICATION: Male, 57 years old. Renal failure. Proteinuria. PHYSICIAN: Godwin Palmer M.D. MEDICATIONS: 2 mg of Versed and 50 mcg of fentanyl intravenously. Conscious sedation protocol was followed. The conscious sedation started at 9:53 AM and terminated at 10:08 AM. The patient was monitored independently by the department nurse. ACCESS SITE: Lower pole of the left kidney. NEEDLE: 18-gauge core biopsy needle. SPECIMEN: 4 18-gauge cores EBL: None. COMPLICATIONS: None immediate. RADIATION DOSAGE (If Supplied By Facility): CTDIvol = ( 26 ) mGy, DLP = ( 332.05 ) mGycm. Individualized dose optimization techniques were utilized. The risks, benefits, and alternatives to the procedure and sedation were explained to the patient. The specific risk of hemorrhage requiring further treatment or intervention was detailed and accepted. Written informed consent was obtained. The patient was placed on the CT table in the prone position. Multiple axial images were obtained from the lung base through the caudal extent of the kidneys. An appropriate entry site was identified and a vinod made on the skin. The skin overlying the [ left] posterior flank was prepped and draped in sterile fashion. 1% lidocaine was administered subcutaneously for local anesthesia. Initially, a 22 gauge needle was advanced and CT images confirmed good needle position. The 22 gauge needle was then exchanged for an 17 gauge introducer needle which was advanced. Repeat CT images confirmed good needle trajectory and tip position. The introducer needle was then advanced into the periphery of the inferior renal pole, and CT images were again obtained to confirm exact tip location. The inner stylet of the introducer needle was then removed and an 18 gauge coaxial needle was advanced thru the introducer needle and biopsy performed. A total of [4 ] passes were performed and the specimen collected was sent to Pathology for further evaluation. The needle was withdrawn. Hemostasis was achieved with manual compression and a sterile dressing was applied. Repeat CT images of the biopsy area was performed which demonstrated no gross bleeding or hematoma. The patient tolerated the procedure well without immediate complications. The patient was transported to the [floor/recovery area] in stable condition. CT/Biopsy/Inj or Needle Placement IMPRESSION: Successful CT guided percutaneous kidney biopsy. Electronically Signed: Godwin Palmer MD at 10:41 EST Tel [phone], Service support ,
[2018-01-21 08:50] VITALS: BP 125/64; PULSE 84; RESP 16; TEMP 36.7; O2SAT 100; BMI 28.7
[2018-01-21 11:44] VITALS: BP 149/73; PULSE 79; RESP 14; O2SAT 91
== END ==
PROVIDERS: Family Provider Family Medicine; PCP Family Medicine; Visit Provider Internal Medicine Nephrology
DX: N17.9 Acute kidney failure, unspecified (principal); E87.5 Hyperkalemia; E87.2 Acidosis; E86.0 Dehydration; R80.9 Proteinuria, unspecified; R63.0 Anorexia; Z68.28 Body mass index [BMI] 28.0-28.9, adult; E11.40 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 diabetic neuropathy, unspecified; I10 Essential (primary) hypertension; E78.5 Hyperlipidemia, unspecified; E03.9 Hypothyroidism, unspecified; D64.9 Anemia, unspecified; Z79.4 Long term (current) use of insulin; Z79.899 Other long term (current) drug therapy
CPT/HCPCS: 50200; 77012; 88305; 88313; 88346; 88348; 99156; J7040; A4216

== ENCOUNTER 2018-03-01 12:04 | Emergency (ER) | payer BC, SELFPAY ==
[2018-03-01 12:05] VITALS: BP 141/73; PULSE 77; RESP 16; TEMP 36.9; O2SAT 100; BMI 29.4
--- NOTE | 2018-03-01 12:31 | EKG12_ITS ---
Test Reason : SYNCOPE Blood Pressure : / mmHG Vent. Rate : 071 BPM Atrial Rate : 071 BPM P-R Int : 140 ms QRS Dur : 080 ms QT Int : 536 ms P-R-T Axes : 069 024 060 degrees QTc Int : 582 ms Normal sinus rhythm Prolonged QT Abnormal ECG Confirmed by WISAM COLON, GERARDO ([id number]), index editor HARPAL REVELES ([id number]) on 03/04/2018 8:45:51 AM Referred By: RIZWANA/ROMERO Confirmed By:GERARDO JOEL MD
--- NOTE | 2018-03-01 12:32 | ED.VISSUMM ---
- ER Visit Summary Date of Service: 03/01/18 Chief Complaint: Near syncope History of Present Illness: The patient is a 57 M presenting with near syncope. He is a newer dialysis patient. Saturday, , and Saturday dialysis since december. His marketing communication manager is Dr. Blakely. He has had 3 episodes of hypotension and near syncope during the middle of his treatment. He has immediately notified nurses and was unhooked from dialysis. He feels lightheaded on standing but it essentially resolves within a few minutes of stopping dialysis. He states that he is able to come treatment and has completed all of his treatments without further issues. He does not have associated shortness of breath or chest pain. This happened again today during the treatment. He has never had a complete syncopal event, just lightheadedness. No vertigo or headaches. Physical Examination: Vitals are within normal limits here. He is not in distress. Neck is supple. Heart tones are regular and without murmur. Lungs are clear bilaterally. Abdomen is soft and nontender. No focal or lateralizing neuro findings. Test Results: Blood cell count is 19.5. Hemoglobin 8.3. Creatinine 2.5 two-view chest x-ray unremarkable Emergency Department Course and Treatment: EKG here is basically unremarkable except for a slightly prolonged QTC. White blood cell count is 19.5 but he is currently on steroids. Chest x-ray negative. BMP unremarkable. Liver enzymes are normal. He remained completely asymptomatic and states that this only occurs during dialysis. I discussed the case with his marketing communication manager, Dr. Blakely who recommended obtaining a CT scan because he has complained intermittently of right flank pain during dialysis. 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 Examination, he has no abdominal pain and he has no right upper quadrant tenderness. With normal liver enzymes and no secondary findings of acute cholecystitis, I think that this can safely be followed up as an outpatient. I discussed the findings again with Dr. Blakely and she agrees that he can follow-up as an outpatient with a surgeon. The exact clinical significance of this is really not clear and it may have nothing to do with his pain. He denies any pain after meals and really the pain was more in his flanks then in his right upper quadrant but it is still worth follow-up in my opinion. He looks quite well and states that he feels completely at baseline. The plan is for him to follow-up with his primary care physician on Saturday or Saturday for his prolonged QT and near syncope and also obtain a referral to general surgery. Treatment Plan: Follow up with his doctor on Saturday or Saturday, return if worse Disposition: Home in stable condition Impression: Initial encounter near syncope, uncertain etiology, cholelithiasis without evidence of cholecystitis This note was generated with Pitzi dictation software. It may contain incorrect words, spelling, and punctuation that were not noted in review of the chart prior to signing ED Disposition - Plan for ED Patient: Chief Complaint: Syncope Instructions: ED Near Syncope Unkn, What are Gallstones? Referrals: Marques Caba MD [Primary Care Provider] - As soon as possible
--- NOTE | 2018-03-01 12:36 | RAD_ITS ---
STUDY: X-RAY CHEST REASON FOR EXAM: Male, 57 years old. Chest pain and near syncope during dialysis this morning. TECHNIQUE: PA and lateral views of the chest. COMPARISON: January 14 2018. FINDINGS: Right-sided dialysis catheter is visible with the tip of the catheter probably in the superior vena cava. Cardiac monitoring leads are present. The lungs are expanded. There is patchy opacity at the left lung base, similar to the previous study and may be related to pulmonary fibrosis. A nodular opacity is visible in the right chest probably represents a previous location of a Mediport catheter. There is no demonstrated pleural abnormality. There is borderline cardiomegaly. Normal mediastinum and kieran. There is prominence of the pulmonary hilar arteries without peripheral pulmonary vascular congestion. There is atherosclerotic calcification of the aortic arch with tortuosity. Normal visualized thoracic spine. Normal visualized ribs, clavicles, and shoulders. There is no demonstrated abnormality of the visualized soft tissue structures of the upper abdomen. RAD/Chest PA and Lateral IMPRESSION: No radiographic evidence of acute cardiopulmonary disease. Electronically Signed: Gail Caba MD at 13:26 EDT , Service support ,
[2018-03-01 12:45] LABS: Absolute Lymphocyte Count 1.84 X10^3/ul (0.83-4.51); Absolute Neutrophil Count 16.1 X10^3/uL (2.0-7.7); Basophil# 0.04 X10^3/uL; Basophil% 0.2 % (0-1); Eosinophil# 0.06 X10^3/uL; Eosinophils% 0.3 % (0-5); Hematocrit 25.7 % (40-54); Hemoglobin 8.3 g/dl (13.0-16.5); Lymphocyte # 1.84 X10^3/ul (4.0); Lymphocyte % 9.4 % (19-41); Mean Corp Hgb Conc 32.3 g/gl (32-36); Mean Corpuscular Volume 86.8 fL (80-94); Mean Platelet Vol. 8.9 fl (6.2-12.0); Monocyte# 1.44 X10^3/uL; Monocyte% 7.4 % (0-10); Neutrophil # 16.07 X10^3/uL (2.7-7.7); Neutrophil % 82.2 % (47-70); POSITIVE COUNT NO; POSITIVE DIFFERENTIAL NO; POSITIVE MORPHOLOGY NO; Platelet Count 397 K/mm3 (150-450); RBC Distribution Width CV 13.8 % (11.6-14.6); RBC Distribution Width SD 42.1 fl (35.1-43.9); Red Blood Count 2.96 M/mm3 (4.6-6.2); White Blood Count 19.5 K/mm3 (4.4-11.0)
[2018-03-01 12:54] LABS: ALB/GLOB Ratio 0.7 RATIO (0.9-2.4); AST(SGOT) 12 U/L (15-37); Alanine Aminotransfer ALT/SGPT 12 U/L (16-61); Albumin, Serum 2.9 g/dL (3.2-5.0); Alkaline Phosphatase 66 U/L (45-117); Anion Gap 8 (5-15); BUN 18 mg/dL (7-18); BUN/Creat Ratio 7.2 RATIO (10-20); Calcium,Total 7.6 mg/dL (8.5-10.1); Chloride 102 mmol/L (98-107); EST Glomerular Filtration Rate 29 mL/min (>60); Est Glom Filt Rate - Afr Amer 35 mL/min (>60); Estimated Creatinine Clearance 34.47 ml/min; Globulin 4.2 g/dL (2.2-4.2); Glucose 154 mg/dL (74-106); Protein, Total 7.1 g/dL (6.4-8.2); Sodium Level 142 mmol/L (136-145)
--- NOTE | 2018-03-01 13:48 | CT_ITS ---
STUDY: CT ABDOMEN AND PELVIS WITHOUT CONTRAST REASON FOR EXAM: Male, 57 years old. Bilateral flank pain. Patient is on dialysis for renal failure. RADIATION DOSAGE (If Supplied By Facility): CTDIvol = ( 10.86 ) mGy, DLP = ( 572.70 ) mGycm TECHNIQUE: Transaxial images were obtained from the dome of the diaphragm to the symphysis pubis without oral contrast, and without intravenous contrast. Sagittal and coronal images were reconstructed. Individualized dose optimization techniques were used for this CT. COMPARISON: None. FINDINGS: There is left basilar dependent atelectasis and possible patchy airspace disease. Curvilinear opacity within the left lower lobe. Curvilinear opacities at the left lung base could be subsegmental atelectasis and/or pulmonary fibrosis. The visualized portions of the heart are within normal limits. Normal liver. There are multiple gallstones. Normal spleen. Normal pancreas. There appears to be some of mesenteric vascular stranding within the upper abdomen with groundglass attenuation. This suggests the possibility of mesenteric panniculitis. Sequela of pancreatitis is thought less likely. Normal bilateral adrenal glands. There is bilateral perinephric stranding. Both kidneys have normal size and position. There is no evidence for hydronephrosis, hydroureter or radiopaque ureteral calculus. Normal visualized stomach. There is no evidence for dilated bowel, ascites or pneumoperitoneum. Small bowel has a grossly normal appearance. Stool is visible throughout the colon with scattered diverticula. There is non-visualization of the appendix. There is diffuse atherosclerotic calcification of the abdominal aorta, without a demonstrated aneurysm. Normal inferior vena cava. There is borderline retroperitoneal lymphadenopathy with enlarged nodes no greater than 10mm in the short axis diameter. Normal urinary bladder. There are prostatic calcifications. There is increased attenuation within the subcutaneous soft tissues of the intra-abdominal suggestive sequela of previous injections. There is a grade 1 anterolisthesis at L5-S1 secondary to spondylolysis of L5. There are multilevel Schmorl's nodes of the thoracic and lumbar spine. CT/Abdomen/Pelvis without Cont IMPRESSION: 1. Apparent acute inflammation within the upper abdominal mesentery suggesting sequela of mesenteric panniculitis. Clinical correlation is suggested regarding the acuity of this finding. 2. Grade 1 spondylolisthesis at L5-S1 secondary to spondylolysis. 3. Cholelithiasis. Electronically Signed: Gail Caba MD at 15:23 EDT , Service support ,
[2018-03-01 14:25] VITALS: BP 135/66; PULSE 70; RESP 16; O2SAT 98
[2018-03-01 16:04] VITALS: BP 140/70; PULSE 69; RESP 18; O2SAT 97
== END 2018-03-01 16:06 | disposition home or self-care (01) ==
PROVIDERS: Emergency Provider Emergency Medicine; Family Provider Family Medicine; PCP Family Medicine
DX: R55 Syncope and collapse (principal); K80.20 Calculus of gallbladder without cholecystitis without obstruction; I12.0 Hypertensive chronic kidney disease with stage 5 chronic kidney disease or end stage renal disease; E11.22 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 diabetic chronic kidney disease; N18.6 End stage renal disease; Z99.2 Dependence on renal dialysis; E03.9 Hypothyroidism, unspecified; Z79.899 Other long term (current) drug therapy
CPT/HCPCS: 71046; 74176; 80053; 85025; 93005; 99283

== ENCOUNTER → 2018-04-11 12:48 | Outpatient (CLI) | payer BC, SELFPAY ==
--- NOTE | 2018-04-11 12:49 | VDUE_ITS ---
Reason For Study: Preop Testing Right Proximal Left Proximal Rt Brachial Distal: 0.50cm x 0.49cm, Lt Brachial A Distal: 0.45cm x 0.46cm, 127cm/s 120cm/s Rt Radial Distal: 0.28cm x 0.28cm, 86cm/s Lt Radial A Distal: 0.26cm x 0.28cm, 79cm/s Rt BasilicV origin: 0.50cm x 0.51cm Lt BasilicV Origin: 0.35cm x 0.34cm Rt BasilicV mid: 0.39cm x 0.38cm Lt BasilicV Mid: 0.26cm x 0.27cm Rt BasilicV elbow: 0.49cm x 0.51cm Lt BasilicV Elbow: 0.16cm x 0.15cm Rt CephalicV wrist: 0.16cm x 0.17cm Lt CephalicV Wrist: 0.14cm x 0.16cm Rt CephalicV mid forearm: 0.20cm x 0.26cm Lt CephalicV Mid Forearm: 0.15cm x 0.18cm Rt CephalicV below antecubital: 0.20cm x Lt CephalicV Below Antecubital: 0.17cm x 0.21cm 0.15cm Rt CephalicV above antecubital: 0.20cm Lt CephalicV Above Antecubital:0.11cm x x0.21cm 0.10cm Rt CephalicV mid bicep: 0.18cm x 0.19cm Lt CephalicV Mid Bicep: 0.12cm x 0.13cm Rt CephalicV axillary: 0.36cm x 0.36cm Lt ChepalicV Axillary: 0.16cm x 0.17cm Rt CephalicV is thick walled. Lt CephalicV is thick walled Lt BasilicV is thick walled at elbow. < Interpretation Summary Bilateral cephalic veins are small with thick matamoros noted Adequate bilateral upper arm basilic veins, larger on the right. Normal flow bilateral radial and brachial arteries. Ordering Physician: Pedro Owens Referring Physician: Marques Caba Performed By: Marleen Atkinson RDCS, RVT
== END ==
PROVIDERS: Family Provider Family Medicine; PCP Family Medicine; Visit Provider Internal Medicine Nephrology
DX: Z01.818 Encounter for other preprocedural examination (principal); N17.9 Acute kidney failure, unspecified
CPT/HCPCS: 93970

== ENCOUNTER 2018-05-15 05:56 | Day surgery (SDC) | payer BC, SELFPAY ==
[2018-05-15 06:07] VITALS: BP 155/75; PULSE 84; RESP 18; TEMP 36.6; O2SAT 100; BMI 27.8
[2018-05-15 06:36] LABS: Hematocrit 36.6 % (40-54); Hemoglobin 11.9 g/dl (13.0-16.5); Mean Corp Hgb Conc 32.5 g/gl (32-36); Mean Corpuscular Hgb 27.5 pg (27.0-32.0); Mean Corpuscular Volume 84.7 fL (80-94); Mean Platelet Vol. 9.1 fl (6.2-12.0); Platelet Count 370 K/mm3 (150-450); RBC Distribution Width CV 14.1 % (11.6-14.6); RBC Distribution Width SD 43.1 fl (35.1-43.9); Red Blood Count 4.32 M/mm3 (4.6-6.2); White Blood Count 21.6 K/mm3 (4.4-11.0)
[2018-05-15 06:36] LABS: Bedside Glucose 115 mg/dL (70-110)
[2018-05-15 06:38] LABS: Scan Indicated on CBC? Y/N NO
[2018-05-15 06:50] LABS: Anion Gap 12 (5-15); BUN 40 mg/dL (7-18); BUN/Creat Ratio 7.1 RATIO (10-20); Calcium,Total 8.5 mg/dL (8.5-10.1); Chloride 104 mmol/L (98-107); Creatinine, Serum 5.61 mg/dL (0.70-1.30); EST Glomerular Filtration Rate 11 mL/min (>60); Est Glom Filt Rate - Afr Amer 14 mL/min (>60); Estimated Creatinine Clearance 15.36 ml/min; Glucose 114 mg/dL (74-106); Sodium Level 140 mmol/L (136-145)
[2018-05-15] MEDS: Bupivacaine Mpf 0.5% 30 ML VIAL (07:51)
[2018-05-15] MEDS: Heparin Injection (Vial) 5,000 UNIT/ML VIAL 5000 UNIT (08:00)
[2018-05-15 08:51] VITALS: BP 115/76; BP 155/75; PULSE 78; RESP 18; TEMP 36.4; O2SAT 91
--- NOTE | 2018-05-15 08:52 | PCM.OPRPT ---
Problem List (1) Chronic renal failure, stage 4 (severe) Status: Acute Report of Operation Date of Procedure: 05/15/18 Pre-Operative Diagnosis: Stage IV chronic renal insufficiency Post-Operative Diagnosis: same Surgery/Procedure Performed:: Left forearm radiocephalic arteriovenous fistula creation Description of Surgical Findings:: The patient was taken to the operating room. He was placed upon the table. Timeout informed consent was obtained. The left upper extremity was sterilely prepped and draped. Cc of 1% lidocaine mixed 50-50 of 0.5% Marcaine was used as a local anesthetic. Ultrasound was used to map out the left forearm cephalic vein. A branch point was selected. Local was instilled. An oblique incision was created. Sharp and blunt dissection was used to dissect free the cephalic vein down to the branch point. Sharp and blunt dissection was used to identify the radial artery. The patient received 9000 units of heparin. After adequate circling time the vein was ligated distally with 2 hemoclips. The vein was then spatulated at the branch point to make for large anastomosis. Peripheral vascular clamps were placed on the radial artery. 11 blade was used to make an arteriotomy which was extended with Jacobs scissors. A end-to-side venous to arterial anastomosis was created with running 7-0 Prolene. A single repair suture of 7-0 Prolene was required. Good hemostasis was achieved. There was a good pulse thrill and bruit within the fistula. A side branch several centimeters more proximally in the forearm was identified transverse incision was identified the sidebranch was identified was dissected free to hemoclips were placed and it was transected. The main wound was closed with interrupted 3-0 Vicryl subdermal sutures and then both wounds were closed with interrupted or running septic or 4-0 Monocryl. Steri-Strips Telfa and tape dressings applied. Sponge and instrument and needle counts were reported to the surgeon to be correct. Blood loss was minimal. He tolerated the procedure well he had a viable hand at the completion of his no apparent complication no specimens no drains blood loss minimal Pedro Owens M.D., F.A.C.S. Type of Anesthesia:: Local MAC Anesthesiologist: Shahid Orosco
[2018-05-15 08:55] VITALS: BP 125/75; BP 155/75; PULSE 75; RESP 18; O2SAT 94
[2018-05-15 09:00] VITALS: BP 119/75; BP 155/75; PULSE 79; RESP 18; O2SAT 93
[2018-05-15 09:05] VITALS: BP 131/74; BP 155/75; PULSE 75; RESP 18; TEMP 36.5; O2SAT 94
[2018-05-15 09:06] LABS: Bedside Glucose 109 mg/dL (70-110)
--- NOTE | 2018-05-15 09:17 | DCINST_ITS ---
Discharge Diet: Renal Diet Discharge Activity: May Not Drive - for 2-3 days or while taking narcotic pain medications., May Not Shower Lifting Restrictions: 5 pounds Keep extremity elevated above heart level: - - Keep arm elevated above the heart level for 3 days. Additional Activity Instructions:: Exercise hand vigorously with a stress ball. Call your doctor if your incision/area has: Continuous Slow Oozing, Sudden Increased Bleeding - apply pressure and call your doctor., Increased Pain/ Swelling, Increased Redness, Foul Smelling Discharge Call your doctor if you observe: Fever of 101 or Higher Suture Line Care: Avoid Pulling/Pushing, Avoid Pinching/Bending Cleanse incision/area with: Keep Dressing Clean & Dry Additional Dressing/Incision Instructions:: If your left forearm dressings stayed clean and dry you may leave them in place for 3 days. If there is any sign of irritation or certainly any blistering then remove the tape dressing. Please keep the area clean and dry for 3 days. The tiny Steri-Strips need to remain in place for 1 week after cover dressing removal. Exercise your left hand with a malleable stress ball hourly while awake to help expedite maturation of the fistula Allergies/Adverse Reactions: Allergies No Known Allergies Allergy (Verified 05/08/18 11:19) Medications to take at Discharge Levothyroxine [Synthroid] 150 mcg PO QHS 10/28/15 Simvastatin [Zocor] 20 mg PO QHS 10/28/15 Citalopram Hydrobromide [Citalopram HBr] 40 mg PO QHS 01/03/18 Sevelamer Carbonate [Renvela] 800 mg PO TID #90 tab 01/08/18 Ergocalciferol [Vitamin D] 50,000 unit PO Q7D 01/21/18 Amlodipine [Norvasc] 10 mg PO QHS 05/08/18 hydrALAZINE [Apresoline] 25 mg PO BID 05/08/18 Hydrocodone Bitart/Apap 5-325 [Mcintosh 5MG-325MG] 1 tablet PO Q6H PRN PRN 2 Days # 5 tablet 05/15/18 The following prescriptions were given: Hydrocodone Bitart/Apap 5-325 [Mcintosh 5MG-325MG] 1 tablet PO Q6H PRN PRN 2 Days # 5 tablet PRN Reason: Pain Primary Care Physician: Marques Caba MD [Primary Care Provider] - Please Follow Up With: Pedro Owens MD - [phone] When: Call to make an appointment for suture removal and follow up in 10 days.
[2018-05-15 09:31] VITALS: BP 155/75
== END 2018-05-15 09:36 | disposition home or self-care (01) ==
LOC: SDC 05:56 → AC 05:57
PROVIDERS: Family Provider Family Medicine; PCP Family Medicine; Visit Provider Surgery
PROC: (CPT 36821; principal; 2018-05-15 07:15)
DX: I12.9 Hypertensive chronic kidney disease with stage 1 through stage 4 chronic kidney disease, or unspecified chronic kidney disease (principal); E11.22 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 diabetic chronic kidney disease; N18.4 Chronic kidney disease, stage 4 (severe); D63.1 Anemia in chronic kidney disease; E78.5 Hyperlipidemia, unspecified; E87.5 Hyperkalemia; E03.9 Hypothyroidism, unspecified; F32.9 Major depressive disorder, single episode, unspecified; F41.9 Anxiety disorder, unspecified; F17.200 Nicotine dependence, unspecified, uncomplicated; Z99.2 Dependence on renal dialysis; Z79.899 Other long term (current) drug therapy
CPT/HCPCS: 36821; 80048; 82962; 85027

== ENCOUNTER 2018-05-31 12:00 | Emergency (ER) | payer BC, SELFPAY ==
[2018-05-31 12:00] VITALS: BP 129/72; PULSE 82; RESP 16; TEMP 36.6; O2SAT 100; BMI 27.6
[2018-05-31 12:24] LABS: Bacteria 0 SEEN /hpf (None Seen); Mucous, Urine 0 SEEN /hpf (<or=2+)
[2018-05-31 12:26] LABS: Color, Urine Amber (Yellow); Glucose, Dipstick 50 mg/dl (Normal); Ketone-Dipstick Negative (Negative); Leukocyte Esterase-Dipstick 25 /ul (Negative); Nitrite-Dipstick Negative (Negative); Occult Blood-Urine 250 /ul (Negative); Protein-Dipstick 500 mg/dl (Negative); Urine Bilirubin Dipstick Negative (Negative); Urine Clarity Sl. Cloudy (Clear); Urine Urobilinogen Normal (Normal)
[2018-05-31 12:31] LABS: Red Blood Cells-Urine 50-100 SEEN /hpf (0-5); Squamous Epithelial Cells - UA 0-5 SEEN /hpf (0-5); White Blood Cells 0-5 SEEN /hpf (0-5)
--- NOTE | 2018-05-31 12:35 | CT_ITS ---
STUDY: CT ABDOMEN AND PELVIS WITHOUT CONTRAST REASON FOR EXAM: Male, 57 years old. Hematuria at dialysis today hypertension and diabetes RADIATION DOSAGE (If Supplied By Facility): CTDIvol = ( 10.86 ) mGy, DLP = ( 572.70 ) mGycm TECHNIQUE: Transaxial images were obtained from the dome of the diaphragm to the symphysis pubis without oral contrast, and without intravenous contrast. Sagittal and coronal images were reconstructed. Individualized dose optimization techniques were used for this CT. COMPARISON: March 01, 2018 CT scan abdomen and pelvis FINDINGS: There is trace lower lobe atelectasis. The visualized portions of the heart are within normal limits. There is mild hepatic enlargement. There multiple stones within the gallbladder measuring approximately 2 to 3 mm Normal spleen. Normal pancreas. Normal bilateral adrenal glands. There is persistent bilateral perinephric stranding. There is persistent mild left pelviectasis with stranding along the left ureter. There may be a punctate stone in the distal left ureter versus artifact. Is persistent left-sided perinephric stranding and inflammatory inflammation. There is a small hiatal hernia. There are mildly distended loops of small bowel with mild wall thickening. There is focal small bowel wall thickening image #92. There are fluid levels within the colon. There is a nonspecific persistent distended appearance of the appendix with residual contrasting gas. This is similar to the prior study. Aorta is partially calcified. Normal inferior vena cava. There are numerous lymph nodes within the retroperitoneum measuring up to 2.4 cm. There are also atypical appearing lymph nodes within the mid mesentery. Lymph nodes are ranging in size from 5 mm to 2.0 cm. There is minimal mesenteric edema. There is mild wall thickening of the bladder. There are prostatic calcifications. There is edema of the mid periumbilical region similar to prior study. There is diastases of the rectus muscle with bulge of intraperitoneal fat. There are diffuse degenerative changes of the visualized lumbar spine. There is a slight anterolisthesis at L5-S1 with grade 1 spondylolisthesis with spondylolysis. There is moderate to severe neural foramina narrowing and mild central stenosis. There is multilevel facet arthropathy. CT/Abdomen/Pelvis without Cont IMPRESSION: There is bilateral robust perinephric stranding suspicious for infection but consider pyelonephritis with cystitis. Findings are suspicious for focal enteritis. There is abnormal mesenteric and retroperitoneal lymphadenopathy throughout. Consider underlying lymphoproliferative disease including lymphoma leukemia reaction to underlying chronic inflammation in the kidneys and small bowel. Possible punctate stone left ureter versus artifact. Consider mild pelviectasis due to possible obstruction and/or inflammation. Cholelithiasis. Grade 1 spondylolisthesis with spondylolysis L5-S1. Electronically Signed: Farzana Lu MD at 13:40 EDT Tel , Service support ,
[2018-05-31 14:04] VITALS: PULSE 82; RESP 14; O2SAT 100
--- NOTE | 2018-05-31 15:15 | ED.VISSUMM ---
- ER Visit Summary Date of Service: 05/31/18 Chief Complaint: Commack urine History of Present Illness: The patient is a 57 M with chronic renal failure on dialysis. He still makes urine. Patient states he has noted pink tinged urine intermittently over the past 5-6 days. On Saturday, 05/27, patient did note left flank pain and states he had difficulty finding a position of comfort. Patient did have a full dialysis run today without difficulty. Past history is otherwise significant for diabetes, hypertension, high cholesterol, and hypothyroidism. Physical Examination: Vital signs are unremarkable. Patient sitting upright in bed in no acute distress. Head and neck examination is normal. Heart is regular rate and rhythm. Lung sounds are clear. Abdomen is soft and nontender. Back examination was no CVA tenderness at this time. Test Results: Urinalysis shows 50-100 RBCs with 0-5 white cells. No overt signs of infection. CT flank shows robust bilateral perinephric stranding, similar to prior study. There may be a punctate stone in the distal left ureter versus artifact. Emergency Department Course and Treatment: Repeat evaluation patient is resting comfortably. With his significant episode of pain a few days ago and blood in the urine with no sign of infection, I am certainly suspicious that he likely has a small kidney stone. This was discussed with the patient. He will continue to monitor his symptoms and return if symptoms worsen. Treatment Plan: [] Disposition: Discharge Impression: Hematuria secondary to punctate left ureter stone This note was generated with [employer] dictation software. It may contain incorrect words, spelling, and punctuation that were not noted in review of the chart prior to signing ED Disposition - Plan for ED Patient: Disposition: Home or Assisted Living Chief Complaint: Complaint Instructions: ED Stone Renal W Colic Referrals: Marques Caba MD [Primary Care Provider] - As Needed
[2018-05-31 15:23] VITALS: RESP 16
== END 2018-05-31 15:23 | disposition home or self-care (01) ==
PROVIDERS: Emergency Provider Emergency Medicine; Family Provider Family Medicine; PCP Family Medicine
DX: N20.1 Calculus of ureter (principal); I12.9 Hypertensive chronic kidney disease with stage 1 through stage 4 chronic kidney disease, or unspecified chronic kidney disease; E11.22 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 diabetic chronic kidney disease; N18.9 Chronic kidney disease, unspecified; Z99.2 Dependence on renal dialysis; E78.00 Pure hypercholesterolemia, unspecified; E03.9 Hypothyroidism, unspecified; Z79.899 Other long term (current) drug therapy
CPT/HCPCS: 74176; 81001; 99282

== ENCOUNTER 2018-06-24 07:43 | Day surgery (SDC) | payer BC, SELFPAY ==
[2018-06-24] VITALS (8 sets, daily range): BP systolic 126–156; BP diastolic 54–78; PULSE 70–74; RESP 16–20; TEMP 36.3–36.8; O2SAT 95–100; BMI 27.2
[2018-06-24 08:21] LABS: Bedside Glucose 97 mg/dL (70-110)
--- NOTE | 2018-06-24 09:46 | PCM.OPRPT ---
Problem List (1) Screening for intestinal cancer Status: Acute Report of Operation Date of Procedure: 06/24/18 Pre-Operative Diagnosis: Screening for intestinal cancer Post-Operative Diagnosis: Internal and external hemorrhoids Surgery/Procedure Performed:: Colonoscopy Description of Surgical Findings:: Timeout and informed consent was obtained. 58-year-old gentleman was taken to the endoscopy suite. He was placed in the left lateral decubitus position. Throughout the procedure in aliquots he received a total of 100 mcg of fentanyl and 3.5 mg of Versed is intravenous sedation. Digital rectal exam demonstrated a 2+ smooth prostate. Internal and external hemorrhoids noted with some exuberant internal hemorrhoidal component. No active bleeding. Flexible colonoscope inserted the rectum advanced through a slightly tortuous sigmoid colon the scope was advanced through the descending transverse and ascending colon. The patient was placed supine and transabdominal pressure was required to get the scope to go to the cecum. The cecum ileocecal valve area was nicely achieved. The appendiceal orifice nicely inspected. Bowel prep was good. There was liquid stool but that could be aspirated. The scope was carefully withdrawn from the cecum ascending colon transverse colon descending colon and sigmoid colon without acute abnormality. The scope was retroflexed within the rectum and the exuberant internal hemorrhoidal polypoid stalks were noted. No active bleeding. Excess fluid and air was aspirated free the procedure was completed with the patient tolerating well. Impression Grade 2-3 internal hemorrhoids with prominent internal hemorrhoidal component. Otherwise normal colonoscopy. The patient has not had a previous screening exam. Next screening examination recommended in 10 years. Medications were given at 0927. The procedure was started 0929. The cecum was reached at 0935. The procedure was completed at 0942. Cc: Dr. NEYDA Owens M.D., F.A.C.S. Type of Anesthesia:: IV Sedation
== END 2018-06-24 10:32 | disposition home or self-care (01) ==
LOC: EN 07:44 → AC 07:45
PROVIDERS: Family Provider Family Medicine; PCP Family Medicine; Visit Provider Surgery
PROC: 0DJD8ZZ Inspection of Lower Intestinal Tract, Via Natural or Artificial Opening Endoscopic (ICD-10-PCS; CPT 45378; principal; 2018-06-24 09:10)
DX: Z12.11 Encounter for screening for malignant neoplasm of colon (principal); K64.2 Third degree hemorrhoids; K64.4 Residual hemorrhoidal skin tags; Z80.0 Family history of malignant neoplasm of digestive organs; I12.0 Hypertensive chronic kidney disease with stage 5 chronic kidney disease or end stage renal disease; N18.5 Chronic kidney disease, stage 5; N17.9 Acute kidney failure, unspecified; E11.22 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 diabetic chronic kidney disease; E03.9 Hypothyroidism, unspecified; E78.5 Hyperlipidemia, unspecified; Z99.2 Dependence on renal dialysis; Z79.899 Other long term (current) drug therapy
CPT/HCPCS: 45378; 82962; 99152; 99153; J7030; J7120

== ENCOUNTER 2018-07-01 20:16 | Emergency (ER) | payer BC, SELFPAY ==
[2018-07-01 20:17] VITALS: BP 160/77; PULSE 82; RESP 17; TEMP 36.8; O2SAT 98; BMI 28.4
--- NOTE | 2018-07-01 20:55 | CT_ITS ---
STUDY: CT ABDOMEN AND PELVIS WITHOUT CONTRAST REASON FOR EXAM: Male, 58 years old. LOW ABDOMINAL PAIN AND SWELLING,ELEVATED WBC,PT HAD COLONOSCOPY LAST WEEK,BLACK STOOLS NOW RADIATION DOSAGE (If Supplied By Facility): CTDIvol = ( 13.24 ) mGy, DLP = ( 727.61 ) mGycm TECHNIQUE: Transaxial images were obtained from the dome of the diaphragm to the symphysis pubis with oral contrast, and without intravenous contrast. Sagittal and coronal images were reconstructed. Individualized dose optimization techniques were used for this CT. COMPARISON: 05/31/2018 FINDINGS: The visualized lung bases are unremarkable. Progressing small pericardial effusion, now measuring 7 mm in depth. Hepatomegaly. Multiple gallstones. Normal spleen. Normal pancreas. Normal bilateral adrenal glands. Stable appearance of the kidneys. Normal visualized stomach. A segment of distal small bowel now demonstrates extensive and circumferential wall thickening and distention, measuring 3.7 cm in diameter. Findings suggest small bowel enteritis. Normal colon. The appendix is visualized and appears normal. Interval progression of diffuse fatty stranding involving the mesentery. Interval progression of diffuse mesenteric adenopathy, with largest node cluster seen on the left on image 78 of series 2 measuring 3.4 x 2.1 cm. There is diffuse atherosclerotic calcification of the abdominal aorta, without a demonstrated aneurysm. Normal inferior vena cava. Progressing retroperitoneal adenopathy, with largest node on the left at the level of the left kidney now measuring 2.6 x 1.3 cm. Normal urinary bladder. There are prostatic calcifications. Diffuse induration of the anterior abdominal wall could be related to anasarca, but correlate clinically for cellulitis. Bilateral L5-S1 pars interarticularis defects with grade 1 anterolisthesis and severe bilateral foraminal stenoses. CT/Abdomen/Pel W ORAL Cont Only IMPRESSION: Progressing pericardial effusion. Hepatomegaly. Multiple gallstones. Distal small bowel distention and wall thickening, likely related to enteritis. Interval progression of mesenteric adenopathy and mesenteric fatty stranding. Mesenteric adenitis is suspected. Progressing retroperitoneal adenopathy. Diffuse induration of the anterior abdominal wall could be related to anasarca, but correlate clinically for cellulitis. Bilateral L5-S1 pars interarticularis defects with grade 1 anterolisthesis and severe bilateral foraminal stenoses. Electronically Signed: Alberto Vicente MD at 23:10 EDT Tel , Service support ,
[2018-07-01] MEDS: 0.9% Normal Saline 1,000 ML 125 ML IV (21:14)
[2018-07-01] MEDS: Ondansetron 4 MG/2 ML Vial IV (21:14)
[2018-07-01 21:27] LABS: Absolute Lymphocyte Count 2.04 X10^3/ul (0.83-4.51); Absolute Neutrophil Count 11.7 X10^3/uL (2.0-7.7); Basophil# 0.03 X10^3/uL; Basophil% 0.2 % (0-1); Eosinophil# 0.34 X10^3/uL; Eosinophils% 2.2 % (0-5); Hematocrit 30.6 % (40-54); Hemoglobin 9.5 g/dl (13.0-16.5); Lymphocyte # 2.04 X10^3/ul (4.0); Lymphocyte % 13.3 % (19-41); Mean Corpuscular Hgb 26.7 pg (27.0-32.0); Mean Platelet Vol. 8.7 fl (6.2-12.0); Monocyte# 1.18 X10^3/uL; Monocyte% 7.7 % (0-10); Neutrophil # 11.73 X10^3/uL (2.7-7.7); Neutrophil % 76.5 % (47-70); POSITIVE COUNT NO; POSITIVE DIFFERENTIAL NO; POSITIVE MORPHOLOGY NO; Platelet Count 351 K/mm3 (150-450); RBC Distribution Width CV 15.4 % (11.6-14.6); RBC Distribution Width SD 48.2 fl (35.1-43.9); Red Blood Count 3.56 M/mm3 (4.6-6.2); White Blood Count 15.3 K/mm3 (4.4-11.0)
[2018-07-01 21:35] LABS: ALB/GLOB Ratio 0.5 RATIO (0.9-2.4); AST(SGOT) 11 U/L (15-37); Alanine Aminotransfer ALT/SGPT 12 U/L (16-61); Albumin, Serum 2.1 g/dL (3.2-5.0); Alkaline Phosphatase 48 U/L (45-117); Anion Gap 6 (5-15); BUN 25 mg/dL (7-18); BUN/Creat Ratio 5.2 RATIO (10-20); Calcium,Total 7.6 mg/dL (8.5-10.1); Chloride 102 mmol/L (98-107); Creatinine, Serum 4.77 mg/dL (0.70-1.30); EST Glomerular Filtration Rate 14 mL/min (>60); Est Glom Filt Rate - Afr Amer 16 mL/min (>60); Estimated Creatinine Clearance 17.29 ml/min; Globulin 4.4 g/dL (2.2-4.2); Glucose 105 mg/dL (74-106); Lipase 229 U/L (73-393); Potassium 3.1 mmol/L (3.5-5.1); Protein, Total 6.5 g/dL (6.4-8.2); Sodium Level 140 mmol/L (136-145)
--- NOTE | 2018-07-01 23:57 | ED.DCSUM_ITS ---
- ER Visit Summary Date of Service: 07/01/18 Chief Complaint: [Abdominal pain] History of Present Illness: The patient is a 58 M [presents the emergency department complaint of abdominal pain for more than 5 days. Patient states that he had a colonoscopy about a week ago that was routine by Dr. Pedro Owens. Patient states that he had an umbilical hernia repair 7 years ago with mesh and he recently noticed some swelling and edema around the area of where his hernia repair was on his abdomen lower abdomen. Patient has had some nausea but no vomiting. Food does not seem to affect the pain. He denies any diarrhea although he states his stools have been somewhat loose over last couple of weeks. Patient did take some Pepto-Bismol couple days ago for some stomach upset and then today noted that he had some blackish stool. Patient has a history of diabetes, hypertension, kidney failure and is on dialysis.] Physical Examination: [HEENT-PERRLA, EOMI. Cranial nerves II through XII grossly intact. TMs clear. Mucous membranes moist. No adenopathy. Cardiovascular-regular rate and rhythm without murmur or ectopy Lungs-clear to auscultation, chest wall stable without crepitus or subcu emphysema Abdomen-normoactive bowel sounds, soft. Patient does have some firm indurated tissue periumbilically but slightly tender to palpation without evidence of cellulitis. No hernia palpated. There is no rebound, rigidity, or perineal signs noted. Rectal exam-no masses palpated. Patient had brown stool that was Hemoccult positive. Extremities-intact ?4, normal range of motion, normal pulses, atraumatic] Test Results: [CBC with differential obtained showed a slightly elevated white blood cell count of 15.3, hemoglobin 9.5, hematocrit 31, platelets 351. Chemistries showed a sodium 140, potassium 3.1, chloride 102, CO2 32, BUN 25, creatinine 4.77. LFTs were normal. Lipase normal. Hemoccult again was positive. CT scan of the abdomen pelvis with p.o. contrast was obtained and showed progressing pericardial effusion. Hepatomegaly. Multiple gallstones. Distal small bowel distention and wall thickening likely related to enteritis. Interval progression of mesenteric adenopathy and mesenteric fatty stranding mesenteric adenitis suspected. Progressing retroperitoneal adenopathy. Diffuse induration of the anterior abdominal wall could be related to anasarca but correlate clinically for cellulitis. Bilateral L5-S1 pars interarticularis defects with grade 1 anterior listhesis and severe bilateral foraminal stenosis. ] Emergency Department Course and Treatment: [Patient did not want anything for pain in the department] Treatment Plan: [This point etiology of patient's abdominal discomfort is unclear. Patient tells me he has had this discomfort for quite some time. I did ask patient to follow-up with Dr. Pedro Owens of general surgery whom he has seen in the past.] Disposition: [Discharged home in stable condition] Impression: [Abdominal pain-etiology uncertain] This note was generated with [employer] dictation software. It may contain incorrect words, spelling, and punctuation that were not noted in review of the chart prior to signing ED Disposition - Plan for ED Patient: Chief Complaint: Abd Pain Referrals: Marques Caba MD [Primary Care Provider] -
--- NOTE | 2018-07-01 23:57 | ED.DEP ---
ED Disposition - Plan for ED Patient: Chief Complaint: Abd Pain Instructions: ED Abdominal Pain Unkn Cause Male Referrals: Marques Caba MD [Primary Care Provider] - Pedro Owens MD [STAFF PHYSICIAN] - 3-5 Days
[2018-07-02 00:06] VITALS: BP 172/74; PULSE 88; RESP 16; O2SAT 97
[2018-07-02 00:07] VITALS: BP 172/74; PULSE 87; RESP 16; O2SAT 97
== END 2018-07-02 00:08 | disposition home or self-care (01) ==
LOC: ED 21:25
PROVIDERS: Emergency Provider Emergency Medicine; Family Provider Family Medicine; PCP Family Medicine
DX: R10.33 Periumbilical pain (principal); R16.0 Hepatomegaly, not elsewhere classified; K80.80 Other cholelithiasis without obstruction; I10 Essential (primary) hypertension; E11.9 Type 2 diabetes mellitus without complications; N19 Unspecified kidney failure; Z99.2 Dependence on renal dialysis; Z79.899 Other long term (current) drug therapy
CPT/HCPCS: 74176; 80053; 82274; 83690; 85025; 96361; 96374; 99284; J7030; J2405

== ENCOUNTER → 2018-07-04 13:22 | Outpatient (CLI) | payer BC, SELFPAY ==
[2018-07-04 13:50] LABS: Erythrocyte Sedimentation Rate 79 mm/hr (0-20)
== END ==
PROVIDERS: Family Provider Family Medicine; PCP Family Medicine; Visit Provider Surgery
DX: K56.609 Unspecified intestinal obstruction, unspecified as to partial versus complete obstruction (principal); R93.3 Abnormal findings on diagnostic imaging of other parts of digestive tract
CPT/HCPCS: 36415; 85652; 86140

== ENCOUNTER → 2018-07-08 08:14 | Outpatient (CLI) | payer BC, SELFPAY | PROVIDERS: Family Provider Family Medicine; PCP Family Medicine; Visit Provider Surgery | DX: K56.609 Unspecified intestinal obstruction, unspecified as to partial versus complete obstruction (principal); R93.3 Abnormal findings on diagnostic imaging of other parts of digestive tract | CPT/HCPCS: 74250 ==

== ENCOUNTER → 2018-07-10 13:51 | Outpatient (CLI) | payer BC, SELFPAY | PROVIDERS: Family Provider Family Medicine; PCP Family Medicine; Visit Provider Surgery | DX: R59.1 Generalized enlarged lymph nodes (principal); K52.9 Noninfective gastroenteritis and colitis, unspecified ==

== ENCOUNTER → 2018-07-11 09:53 | Outpatient (CLI) | payer BC, SELFPAY | LOC: LAB.FUTURE 09:54 → LABSPEC 09:54 | PROVIDERS: Family Provider Family Medicine; PCP Family Medicine; Visit Provider Surgery | DX: R19.7 Diarrhea, unspecified (principal) | CPT/HCPCS: 83630; 87506 ==

== ENCOUNTER 2018-08-01 11:44 | Inpatient (IN) | payer BC, SELFPAY ==
[2018-08-01] VITALS (22 sets, daily range): BP systolic 133–171; BP diastolic 58–78; PULSE 78–93; RESP 14–20; TEMP 36.7–37.7; O2SAT 78–95; BMI 27.3; BMI 26.9
--- NOTE | 2018-08-01 13:05 | ED.VISSUMM ---
- ER Visit Summary Date of Service: 08/01/18 Chief Complaint: Cough and shortness of breath History of Present Illness: The patient is a 58 M who presents with cough and shortness of breath that has been getting worse over the past couple days. Patient states his chest feels tight at times. Patient states he is coughing but denies any sputum production. Patient denies any fevers or chills. Patient denies any upper respiratory symptoms. Patient states his breathing is worse with exertion and with coughing. Physical Examination: Vital signs are stable. Patient is afebrile. Patient is in no acute distress. Oral mucosa is pink and moist. Neck is supple. Trachea is midline. There is no JVD or lymphadenopathy noted. Pupils are equal, round, reactive to light bilateral. Extraocular muscles are intact. Conjunctiva is clear. Heart is regular rate and rhythm. Lungs are clear and equal bilaterally. There is good respiratory effort noted. Abdomen is soft. Bowel sounds are normal. There is no tenderness noted. Cranial nerves II through XII are intact. There are no focal motor or sensory deficits noted. The remaining physical exam is within normal limits. Test Results: CBC showed a hemoglobin 5.8. There is also an elevated white blood cell count of 16.7. Creatinine was 5.96. Chest x-ray shows evidence of mild bilateral pulmonary edema. Emergency Department Course and Treatment: Patient declined rectal examination. Patient states he had a recent colonoscopy done by Dr. Owens. Patient states Dr. Owens also ordered stool studies which he dropped off in the lab recently but this not know the results of those. Patient was typed and crossmatched for 2 units of packed red blood cells. Patient is agreeable to transfusion. Case was discussed with Dr. Martinez. He will admit the patient to his service. Patient understood and was agreeable with the plan. All questions were answered. Disposition: Admit to hospital Impression: Anemia This note was generated with [employer] dictation software. It may contain incorrect words, spelling, and punctuation that were not noted in review of the chart prior to signing ED Disposition - Plan for ED Patient: Disposition: Acute Care Hospital [facility] Chief Complaint: Shortness of Breath Diagnosis: Anemia, Chronic renal failure, stage 4 (severe) Referrals: Marques Caba MD [Primary Care Provider] -
[2018-08-01 13:28] LABS: Absolute Lymphocyte Count 1.28 X10^3/ul (0.83-4.51); Absolute Neutrophil Count 14.1 X10^3/uL (2.0-7.7); Basophil# 0.04 X10^3/uL; Basophil% 0.2 % (0-1); Eosinophil# 0.04 X10^3/uL; Eosinophils% 0.2 % (0-5); Hematocrit 19.5 % (40-54); Lymphocyte # 1.28 X10^3/ul (4.0); Lymphocyte % 7.7 % (19-41); Mean Corp Hgb Conc 29.7 g/gl (32-36); Mean Corpuscular Hgb 26.4 pg (27.0-32.0); Mean Corpuscular Volume 88.6 fL (80-94); Mean Platelet Vol. 8.2 fl (6.2-12.0); Monocyte# 1.12 X10^3/uL; Monocyte% 6.7 % (0-10); Neutrophil # 14.13 X10^3/uL (2.7-7.7); Platelet Count 433 K/mm3 (150-450); RBC Distribution Width CV 15.4 % (11.6-14.6); RBC Distribution Width SD 47.9 fl (35.1-43.9); White Blood Count 16.7 K/mm3 (4.4-11.0)
[2018-08-01 13:29] LABS: Differential Indicated SCAN CRITERIA MET; POSITIVE DIFFERENTIAL NO
--- NOTE | 2018-08-01 13:30 | ED.RN ---
hgb 5.[address] feliz notified
[2018-08-01 13:42] LABS: Anion Gap 10 (5-15); BUN 25 mg/dL (7-18); BUN/Creat Ratio 4.2 RATIO (10-20); Calcium,Total 8.4 mg/dL (8.5-10.1); Chloride 98 mmol/L (98-107); Creatinine, Serum 5.96 mg/dL (0.70-1.30); EST Glomerular Filtration Rate 11 mL/min (>60); Est Glom Filt Rate - Afr Amer 13 mL/min (>60); Estimated Creatinine Clearance 14.29 ml/min; Glucose 96 mg/dL (74-106); Potassium 3.6 mmol/L (3.5-5.1); Sodium Level 137 mmol/L (136-145)
[2018-08-01 14:06] LABS: Hemoglobin 5.8 g/dl (13.0-16.5)
[2018-08-01 14:12] LABS: POSITIVE COUNT YES; POSITIVE MORPHOLOGY NO
--- NOTE | 2018-08-01 15:30 | NURSING ---
MED SURG ANEMIA KOTSONIS
--- NOTE | 2018-08-01 15:42 | NURSING ---
116 GI BLEED NIK
--- NOTE | 2018-08-01 17:04 | PCM.HP.STD ---
<Lance Hernandez - Last Filed: 08/01/18 17:04> Problem List (1) Blood loss anemia Status: Acute (2) ESRD (end stage renal disease) Status: Chronic (3) Lymphadenopathy Status: Chronic (4) Hyperlipidemia Status: Chronic (5) Hypothyroidism Status: Chronic (6) Hypertension Status: Chronic (7) Type II diabetes mellitus Status: Chronic History of Present Illness Date of Admission: 08/01/18 Chief Complaint: SOB The patient is a 58 year old M with a hx of ESRD pt of Dr. Blakely, DMt2, hypothyroidism, HLD, DAVID, chronic leukocytosis, abdominal lymphadenopathy HTN, who presented to the ER with increased SOB at home. He has been progressively more SOB this week, with intermittent episodic dizziness especially with any exertion, and an dry cough. He was found to be anemic in the ER, and recently had a positive hemoccult in the ER. He has been following Dr. Owens and did have a colonoscopy 06/24 showing hemorrhoids. He has not noted any black or bright red blood in his stools. He states they are loose and tripathi color. He does have vomiting every day - he gets up at about 4 am daily and has vomiting and dry heaving. He has not noticed any blood here either though. He does have intermittent abdominal pain, does not notice any effect of food on his pain. He is not on any blood thinning agents. [] Past Medical History Past Medical History (Chronic Problems): Chronic Problems (Last Reviewed 07/04/18 @ 12:49 by Kady Freire) ESRD (end stage renal disease) (Chronic) Lymphadenopathy (Chronic) Hyperlipidemia (Chronic) Hypothyroidism (Chronic) Hypertension (Chronic) Type II diabetes mellitus (Chronic) Medical History: Medical History (Last Reviewed 07/04/18 @ 12:49 by Kady Freire) Enteritis (Acute) K52.9 Lymphadenopathy (Acute) R59.1 Chronic renal insufficiency, stage V (Acute) N18.5 ELMO (acute kidney injury) (Acute) N17.9 Hyperkalemia (Acute) E87.5 Hyperlipidemia (Chronic) E78.5 Hypothyroidism (Chronic) E03.9 Hypertension (Chronic) I10 Type II diabetes mellitus (Chronic) E11.9 Community acquired pneumonia (Acute) J18.9 Allergies epoetin beta [From Mircera] Adverse Reaction (Verified 08/01/18 16:35) back pain Home Medications: Ambulatory Orders Medication Instructions Recorded Levothyroxine [Synthroid] 150 mcg PO QHS 10/28/15 Simvastatin [Zocor] 20 mg PO QHS 10/28/15 Citalopram Hydrobromide 40 mg PO QHS 01/03/18 [Citalopram HBr] Ergocalciferol [Vitamin D] 50,000 unit PO WE 01/21/18 Amlodipine [Norvasc] 10 mg PO QHS 05/08/18 hydrALAZINE [Apresoline] 25 mg PO TID 05/08/18 Calcium Acetate [Calcium Acetate] 2 cap PO TIDCM 08/01/18 Pantoprazole Sodium [Protonix] 40 mg PO DAILY 08/01/18 Yoko-Anna 0.8 mg PO QHS 08/01/18 Surgical History: Surgical History (Last Reviewed 07/04/18 @ 12:49 by Kady Freire) H/O hernia repair Z98.890, Z87.19 Presence of surgically created arteriovenous shunt for hemodialysis Z99.2 LLE fistula-05/15/2018 S/P nasal surgery Z98.890 Surgical History: - Psychiatric History: Anxiety, Depression Smoking Status: Never smoker Tobacco Use: Chew - *Family History Maternal Family History: Family History (Last Reviewed 07/04/18 @ 12:49 by Kady Freire) Father No problems noted. History Items: Diabetes Paternal Family History: Family History (Last Reviewed 07/04/18 @ 12:49 by Kady Freire) Father No problems noted. History Items: Stroke Review of Systems Constitutional: Denies: Chills, Fever, Weight Change HEENT: Denies: Head Aches, Sinus Congestion, Sinus Drainage Cardiovascular: Denies: Chest Pain, Palpitations Respiratory: Denies: Cough, Shortness of breath at rest, Sputum production Gastrointestinal: Denies: Abdominal Pain, Nausea, Vomiting Genitourinary: Denies: Dysuria Musculoskeletal: Denies: Joint Pain, Joint Tenderness Skin: Denies: Rash, Wounds Neurological: Denies: Numbness, Tingling, Focal weakness Psychiatric: Denies: Anxiety, Depression, Homicidal Ideations, Suicidal Ideations Hematologic/ Lymphatic: Denies: Easy Bruising, Easy Bleeding VTE Information - Inpt Only VTE Present on Admission: No VTE Mechan Device Prophylaxis: SCD's VTE Pharm Prophylaxis ordered?: No Patient Problems: Active and Suspected Problems (Last Reviewed 07/04/18 @ 12:49 by Kady Freire) Anemia (Acute) Blood loss anemia (Acute) Chronic renal failure, stage 4 (severe) (Acute) - Physical Exam General: Alert, Oriented x3, Cooperative HEENT: Atraumatic, PERRLA, EOMI, Normocephalic Neck: Supple, No JVD, Negative Carotid Bruits Lungs: Clear to auscultation, Normal air movement Cardiovascular: Regular rate, No murmurs Abdomen: Bowel Sounds Present, Soft, Non Tender Extremities: No edema, Capillary Refill Less than 3 Seconds Skin: No rashes, No breakdown Musculoskeletal: No Tenderness to Palpation of Joints or Extremities Neurological: Cranial nerves II-XII grossly intact Psych/Mental Status: Normal Affect, Appropriate, Alert and oriented to time, place, person, mood and affect Vital Signs Temp Pulse Resp BP Pulse Ox 99.6 F H 89 20 H 152/59 H 93 08/01/18 16:48 08/01/18 16:48 08/01/18 16:48 08/01/18 16:48 08/01/18 16:48 Oxygen Flow Rate (L/min) 2 Oxygen Delivery Method Nasal Cannula Weight: 187 lb 6.4 oz Body Mass Index (BMI) 26.9 Assessment/Plan All Active Problems (Last Reviewed 07/04/18 @ 12:49 by Kady Freire) Screening for intestinal cancer (Acute) Anemia (Acute) Blood loss anemia (Acute) Enteritis (Acute) Chronic renal failure, stage 4 (severe) (Acute) Chronic renal insufficiency, stage V (Acute) ELMO (acute kidney injury) (Acute) Hyperkalemia (Acute) Community acquired pneumonia (Acute) 1. Acute blood loss anemia - suspect GI source. Recent hemoccult blood. Consult to Dr. Owens. Serial H/H. IV PPI. Transfuse 2 units prbc. No recent black / bloody stools. Hx frequent vomiting. He does have intermittent abdominal pain. Mesenteric, retroperitoneal adenopathy on recent CT abdomen CXR shows pulmonary edema. 2. ESRD - Pt of Dr. Blakely. Due for dialysis tomorrow 3. Chronic leukocytosis - unclear etiology. Reportedly he is also being worked up for abdominal lymphadenopathy as above 4. DMt2 - SSI. 5. HTN - somewhat elevated, trend DVT ppx: SCDs This patient was seen by Lance Hernandez PA-C under the supervision of Doctor Michelle. <Jakub Martinez - Last Filed: 08/01/18 19:50> History of Present Illness The patient is a 58 year old M [] Past Medical History Medical History: Medical History (Last Reviewed 07/04/18 @ 12:49 by Kady Freire) Enteritis (Acute) K52.9 Lymphadenopathy (Acute) R59.1 Chronic renal insufficiency, stage V (Acute) N18.5 ELMO (acute kidney injury) (Acute) N17.9 Hyperkalemia (Acute) E87.5 Hyperlipidemia (Chronic) E78.5 Hypothyroidism (Chronic) E03.9 Hypertension (Chronic) I10 Type II diabetes mellitus (Chronic) E11.9 Community acquired pneumonia (Acute) J18.9 Allergies epoetin beta [From Mircera] Adverse Reaction (Verified 08/01/18 16:35) back pain Surgical History: Surgical History (Last Reviewed 07/04/18 @ 12:49 by Kady Freire) H/O hernia repair Z98.890, Z87.19 Presence of surgically created arteriovenous shunt for hemodialysis Z99.2 LLE fistula-05/15/2018 S/P nasal surgery Z98.890 - *Family History Maternal Family History: Family History (Last Reviewed 07/04/18 @ 12:49 by Kady Freire) Father No problems noted. Paternal Family History: Family History (Last Reviewed 07/04/18 @ 12:49 by Kady Freire) Father No problems noted. - Physical Exam Vital Signs Temp Pulse Resp BP Pulse Ox 99.3 F H 86 20 H 160/68 H 90 08/01/18 19:32 08/01/18 19:32 08/01/18 19:32 08/01/18 19:32 08/01/18 19:32 Oxygen Flow Rate (L/min) 4 Oxygen Delivery Method Nasal Cannula Weight: 187 lb 6.4 oz Body Mass Index (BMI) 26.9 Intake and Output for Last 24 Hours 07/30/18 07/31/18 08/01/18 23:59 23:59 23:59 Intake Total 0 / 0 Balance 0 / 0 Assessment/Plan Addendum: Dr. Martinez I personally examined the patient and reviewed the chart. I agree with the above. Adonay Sweeney is a 58-year-old gentleman with a history of end-stage renal disease, chronic leukocytosis, diabetes, hypertension, he is presenting with acute blood loss anemia. Today he was symptomatic with lightheadedness and dizziness and felt that he might almost pass out. Within the last month he has had a positive fecal occult stool. General: Alert, Oriented x3, Cooperative HEENT: Atraumatic, EOMI, Normocephalic Neck: Supple, No JVD Lungs: Clear to auscultation, Normal air movement Cardiovascular: Regular rate, No murmurs Abdomen: Bowel Sounds Present, Soft, Non Tender Extremities: No edema, Capillary Refill Less than 3 Seconds Skin: No rashes, No breakdown Musculoskeletal: No Tenderness to Palpation of Joints or Extremities Neurological: Cranial nerves II-XII grossly intact Psych/Mental Status: Normal Affect, Appropriate, Alert and oriented to time, place, person, mood and affect 1. 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
[2018-08-01 18:46] LABS: BNP,B-Type NATRIURETIC PEPTIDE 644.8 pg/mL (0-100)
--- NOTE | 2018-08-01 19:02 | PCM.CONS.GEN ---
Reason for Consult Date of Consultation: 08/01/18 Reason for Consultation: Anemia History of Present Illness: The patient is a 58 year old M presented to the ER due to extreme shortness of breath and almost feeling like she was going to pass out. In the ER his hemoglobin is noted to be 5.8 His last hemoglobin from July 01 was 9.5. Patient states he does have dry heaves/vomits every day denies having any blood patient also states he has bowel movements 1-2 times a day and they are light brown even today. Patient has been getting worked up for terminal ileum and distal jejunal thickening seen on CT as well as small bowel follow-through. Did have a colonoscopy on 06/24/[address] Owens which he was able to intubate the cecum but not the terminal ileum. His ESR and CRP were also quite elevated. He was referred to gastroenterology and he did see Dr. Murali Rueda in late June. Plan was for Dr. Rueda to do an EGD as well as likely a colonoscopy in August since his schedule was busy. Patient states that prior to seeing Dr. Rueda he did have lower abdominal pain however after seen Dr. Rueda that has resolved on its own. Past Medical History Past Medical History (Chronic Problems): Chronic Problems (Last Reviewed 07/04/18 @ 12:49 by Kady Freire) ESRD (end stage renal disease) (Chronic) Lymphadenopathy (Chronic) Hyperlipidemia (Chronic) Hypothyroidism (Chronic) Hypertension (Chronic) Type II diabetes mellitus (Chronic) Medical History: Medical History (Last Reviewed 07/04/18 @ 12:49 by Kady Freire) Enteritis (Acute) K52.9 Lymphadenopathy (Chronic) R59.1 Chronic renal insufficiency, stage V (Acute) N18.5 ELMO (acute kidney injury) (Acute) N17.9 Hyperkalemia (Acute) E87.5 Hyperlipidemia (Chronic) E78.5 Hypothyroidism (Chronic) E03.9 Hypertension (Chronic) I10 Type II diabetes mellitus (Chronic) E11.9 Community acquired pneumonia (Acute) J18.9 Allergies epoetin beta [From Mircera] Adverse Reaction (Verified 08/01/18 16:35) back pain Home Medications: Ambulatory Orders Medication Instructions Recorded Levothyroxine [Synthroid] 150 mcg PO QHS 10/28/15 Simvastatin [Zocor] 20 mg PO QHS 10/28/15 Citalopram Hydrobromide 40 mg PO QHS 01/03/18 [Citalopram HBr] Ergocalciferol [Vitamin D] 50,000 unit PO WE 01/21/18 Amlodipine [Norvasc] 10 mg PO QHS 05/08/18 hydrALAZINE [Apresoline] 25 mg PO TID 05/08/18 Calcium Acetate [Calcium Acetate] 2 cap PO TIDCM 08/01/18 Pantoprazole Sodium [Protonix] 40 mg PO DAILY 08/01/18 Yoko-Anna 0.8 mg PO QHS 08/01/18 Surgical History: Surgical History (Last Reviewed 07/04/18 @ 12:49 by Kady Freire) H/O hernia repair Z98.890, Z87.19 Presence of surgically created arteriovenous shunt for hemodialysis Z99.2 LLE fistula-05/15/2018 S/P nasal surgery Z98.890 Surgical History: - Psychiatric History: Anxiety, Depression Smoking Status: Never smoker Tobacco Use: Chew - *Family History Maternal Family History: Family History (Last Reviewed 07/04/18 @ 12:49 by Kady Freire) Father No problems noted. History Items: Diabetes Paternal Family History: Family History (Last Reviewed 07/04/18 @ 12:49 by Kady Freire) Father No problems noted. History Items: Stroke Review of Systems Constitutional: Reports: Fatigue. Denies: Fever Cardiovascular: Denies: Chest Pain Respiratory: Reports: Shortness of breath at rest Gastrointestinal: Denies: Abdominal Pain, Diarrhea Genitourinary: Denies: Dysuria Skin: Denies: Rash Neurological: Denies: Difficulty swallowing Psychiatric: Reports: Anxiety. Denies: Depression Hematologic/ Lymphatic: Denies: Easy Bleeding Patient Problems: Active and Suspected Problems (Last Reviewed 07/04/18 @ 12:49 by Kady Freire) Anemia (Acute) Blood loss anemia (Acute) Chronic renal failure, stage 4 (severe) (Acute) - Physical Exam General: Alert, Oriented x3, Cooperative, No apparent distress HEENT: Atraumatic, Normocephalic Lungs: Normal air movement Cardiovascular: Regular rate Abdomen: Soft, Non Tender - No peritoneal signs, Non-Distended Extremities: No clubbing, No cyanosis, No edema, - - Left forearm AV fistula good thrill Neurological: Cranial nerves II-XII grossly intact Psych/Mental Status: Normal Affect Vital Signs Temp Pulse Resp BP Pulse Ox 98.6 F 86 20 H 158/70 H 90 08/01/18 18:32 08/01/18 18:32 08/01/18 18:32 08/01/18 18:32 08/01/18 18:32 Oxygen Flow Rate (L/min) 4 Oxygen Delivery Method Nasal Cannula Weight: 187 lb 6.4 oz Body Mass Index (BMI) 26.9 Intake and Output for Last 24 Hours 07/30/18 07/31/18 08/01/18 23:59 23:59 23:59 Intake Total 0 / 0 Balance 0 / 0 Assessment/Plan All Active Problems (Last Reviewed 07/04/18 @ 12:49 by Kady Freire) Screening for intestinal cancer (Acute) Anemia (Acute) Blood loss anemia (Acute) Enteritis (Acute) Chronic renal failure, stage 4 (severe) (Acute) Chronic renal insufficiency, stage V (Acute) ELMO (acute kidney injury) (Acute) Hyperkalemia (Acute) Community acquired pneumonia (Acute) 58-year-old male with anemia of 5.8, thickened terminal ileum and distal jejunum elevated CRP and ESR 1. Patient previously saw Dr. Murali Rueda with GI due to his thickening of the his distal small bowel as well as anemia. Had planned a scope in August due to Dr. Rueda schedule. However patient presents with anemia of 5.8 but he denies any bloody stools states there are light brown also denies any hematemesis but he does admit to dry heaves/vomiting almost daily. Recommend patient be transferred to a facility with GI so he can undergo an EGD as well as a colonoscopy and intubation of the terminal ileum which will hopefully provide answers to the thickening of the small bowel. Patient is agreeable to be transferred and has no further questions at this time. Discussed with Dr. Martinez and he will check to make sure Dr. Blakely is aware as she has been following for his chronic kidney disease and anemia. 2. Anemia-patient currently receiving 2 units of packed red blood cells, vital signs stable Amanda Hart M.D. Pager: [phone] [facility] [address] [place] [address], [facility], [address] [place] [address] Office: [phone] Code Visit Inpatient E&M: 54359 Init Hosp L1
[2018-08-01] MEDS: Ipratropium/Albuterol Sulfate 3 ML AMPUL.NEB INHALATION ×2 (19:05→23:34)
[2018-08-01] MEDS: Furosemide 40 MG/4 ML Vial IV (20:07)
[2018-08-01] MEDS: 0.9% NaCl Peripheral Flush Adult/Peds IV ×2 (20:07→21:35)
--- NOTE | 2018-08-01 20:51 | NURSING ---
2nd unit of blood started at 2049, initial TAR vitals charted time is incorrect
[2018-08-01] MEDS: Nepro Liquid 120 ML LIQUID PO (21:17)
--- NOTE | 2018-08-01 23:35 | CPS ---
pt placed on High Flow nasal cannula at 8 l/m to keep sat up
--- NOTE | 2018-08-01 23:36 | CPS ---
pt placed on high flow nasal cannula to keep sats above 90
[2018-08-02] VITALS (20 sets, daily range): BP systolic 140–165; BP diastolic 63–81; PULSE 80–89; RESP 14–17; TEMP 36.6–37.4; O2SAT 91–97
--- NOTE | 2018-08-02 01:42 | NURSING ---
Spoke with Dr. Griffiths about patient's oxygen saturation status. He was agreeable to placing patient on venti mask. Called RT Xochilt to place venti mask. She states she is going to keep patient on high flow nasal cannula and placed at 10L would be equivalent to 50% venti mask.
[2018-08-02 02:45] LABS: Absolute Lymphocyte Count 1.44 X10^3/ul (0.83-4.51); Absolute Neutrophil Count 15.5 X10^3/uL (2.0-7.7); Basophil# 0.04 X10^3/uL; Basophil% 0.2 % (0-1); Eosinophil# 0.12 X10^3/uL; Eosinophils% 0.6 % (0-5); Hematocrit 22.6 % (40-54); Hemoglobin 7.1 g/dl (13.0-16.5); Lymphocyte # 1.44 X10^3/ul (4.0); Lymphocyte % 7.7 % (19-41); Mean Corp Hgb Conc 31.4 g/gl (32-36); Mean Corpuscular Hgb 27.3 pg (27.0-32.0); Mean Corpuscular Volume 86.9 fL (80-94); Mean Platelet Vol. 8.2 fl (6.2-12.0); Monocyte# 1.47 X10^3/uL; Monocyte% 7.9 % (0-10); Neutrophil # 15.52 X10^3/uL (2.7-7.7); Neutrophil % 83.3 % (47-70); Platelet Count 331 K/mm3 (150-450); RBC Distribution Width CV 15.6 % (11.6-14.6); RBC Distribution Width SD 49.4 fl (35.1-43.9); White Blood Count 18.6 K/mm3 (4.4-11.0)
[2018-08-02 02:50] LABS: POSITIVE COUNT NO; POSITIVE DIFFERENTIAL NO; POSITIVE MORPHOLOGY NO
[2018-08-02 03:02] LABS: Anion Gap 11 (5-15); BUN 31 mg/dL (7-18); BUN/Creat Ratio 4.4 RATIO (10-20); Calcium,Total 8.1 mg/dL (8.5-10.1); Chloride 101 mmol/L (98-107); Creatinine, Serum 6.98 mg/dL (0.70-1.30); EST Glomerular Filtration Rate 9 mL/min (>60); Est Glom Filt Rate - Afr Amer 11 mL/min (>60); Glucose 103 mg/dL (74-106); Potassium 3.7 mmol/L (3.5-5.1); Sodium Level 140 mmol/L (136-145)
--- NOTE | 2018-08-02 04:04 | CPS ---
increased high flow o2 to 10l/m
[2018-08-02] MEDS: Ipratropium/Albuterol Sulfate 3 ML AMPUL.NEB INHALATION ×2 (07:12→12:40)
[2018-08-02] MEDS: 0.9% NaCl Peripheral Flush Adult/Peds IV ×2 (10:12→17:32)
--- NOTE | 2018-08-02 11:00 | CASEMGMT ---
CM INITIAL ASSESSMENT: Home: Patient states he lives in a one story home with his . HHS/Aides: Denies. Patient does drive. DME: Denies use and need. Home Oxygen: Patient states he uses BiPAP through [facility]. He states's his mother in law has a nebulizer he can use, but he does not have his own. Pharmacy: [facility] Advance Directives: Denies. Declines information at this time. PCP: Marques Caba Specialists: Dr. Blakely, Dr. Owens, and Dr. Murali Rueda (GI in [place]) Dialysis Schedule: /Sat 0630 - 1099 at [facility]. DC Plan: TBD CM will continue to follow for safe and effective discharge planning.
[2018-08-02 13:18] LABS: Hematocrit 24.5 % (40-54); Hemoglobin 7.8 g/dl (13.0-16.5)
--- NOTE | 2018-08-02 13:32 | PCM.PROGNOTE ---
<Lance Hernandez - Last Filed: 08/02/18 13:32> Patient Problems: Active and Suspected Problems (Last Reviewed 07/04/18 @ 12:49 by Kady Freire) Anemia (Acute) Blood loss anemia (Acute) Chronic renal failure, stage 4 (severe) (Acute) Subjective: No bowel movement. No dizziness/LH. Primary complaint is that he is very SOB and has a dry cough. No leg edema. Feels pressure and congestion in his chest that he states he feels he needs to clear but cannot. No fever or chills. No nausea today. - Physical Exam General: Alert, Oriented x3, Cooperative HEENT: Atraumatic, PERRLA, EOMI, Normocephalic Neck: Supple, No JVD, Negative Carotid Bruits Lungs: Clear to auscultation, Normal air movement Cardiovascular: Regular rate, No murmurs Abdomen: Bowel Sounds Present, Soft, Non Tender Extremities: No edema, Capillary Refill Less than 3 Seconds Skin: No rashes, No breakdown Musculoskeletal: No Tenderness to Palpation of Joints or Extremities Neurological: Cranial nerves II-XII grossly intact Psych/Mental Status: Normal Affect, Appropriate, Alert and oriented to time, place, person, mood and affect Vital Signs Temp Pulse Resp BP Pulse Ox 98.5 F 81 16 149/69 H 95 08/02/18 10:08 08/02/18 12:45 08/02/18 12:45 08/02/18 10:08 08/02/18 10:08 Oxygen Flow Rate (L/min) 8 Oxygen Delivery Method Nasal Cannula Weight: 187 lb 6.287 oz Body Mass Index (BMI) 26.9 Intake and Output for Last 24 Hours 07/31/18 08/01/18 08/02/18 23:59 23:59 23:59 Intake Total 416 / 416 847 / 847 Balance 416 / 416 847 / 847 Laboratory Tests Past 24 Hrs 08/02/18 08/02/18 08/02/18 02:33 02:33 12:40 WBC 18.6 H RBC 2.60 L Hgb 7.1 L 7.8 L Hct 22.6 L 24.5 L MCV 86.9 MCH 27.3 MCHC 31.4 L RDW 15.6 H RDW Differential 49.4 H Plt Count 331 MPV 8.2 Immature Gran % (Auto) 0.300 Neut % (Auto) 83.3 H Lymph % (Auto) 7.7 L Riley % (Auto) 7.9 Eos % (Auto) 0.6 Baso % (Auto) 0.2 Absolute Neuts (auto) 15.5 H Absolute Lymphs (auto) 1.44 Total Counted Not Reportable Sodium 140 Potassium 3.7 Chloride 101 Carbon Dioxide 28.0 Anion Gap 11 BUN 31 H Creatinine 6.98 H Estim Creat Clear Calc 12.20 Est GFR (MDRD) Af Amer 11 L Est GFR (MDRD) Non-Af 9 L BUN/Creatinine Ratio 4.4 L Glucose 103 Calcium 8.1 L Medical Necessity - Tobacco Use Smoking Status: Never smoker Tobacco Use: Chew Assessment/Plan All Active Problems (Last Reviewed 07/04/18 @ 12:49 by Kady Freire) Screening for intestinal cancer (Acute) Anemia (Acute) Blood loss anemia (Acute) Enteritis (Acute) Chronic renal failure, stage 4 (severe) (Acute) Chronic renal insufficiency, stage V (Acute) ELMO (acute kidney injury) (Acute) Hyperkalemia (Acute) Community acquired pneumonia (Acute) 1. Acute blood loss anemia - suspect GI source. Recent hemoccult blood. Surgery recommended tx to GI in [place] - he was refused. No signs of rapid bleed. No black or bloody stools. 3 units given, 4th held at this point with CHF. 2. Acute hypoxic respiratory failure 2/2 Acute CHF exacerbation - no prior hx. Echo pending. Dialysis/Lasix. BNP 600+, CXR with pulmonary edema. Requiring 8lpm high flow nasal cannula and significant SOB. 3. ESRD - Pt of Dr. Blakely. Due for dialysis tomorrow 4. Chronic leukocytosis - unclear etiology. Reportedly he is also being worked up for abdominal lymphadenopathy with Dr. Owens 5. DMt2 - SSI. 6. HTN - somewhat elevated, trend. DVT ppx: SCDs This patient was seen by Lance Hernandez PA-C under the supervision of Doctor Andressa. <Liam Crisostomo - Last Filed: 08/02/18 14:00> Subjective: No hematochezia nor melena. Still SOB and dizzy when he stands up. Still SOB, but on room air. - Physical Exam General: Alert, Cooperative, - - seen on HD. No resp distress. No conversational dyspnea. HEENT: Atraumatic, Normocephalic Oral: Moist Mucosa, No Gingival or Mucosal Lesions/ Ulcerations Neck: No Nodes, Thyroid Normal Size and Texture Lungs: Diminished, - - bilateral crackles. Cardiovascular: Regular rate, Regular Rhythm, Normal S1, Normal S2, No murmurs Abdomen: Bowel Sounds Present, Soft, Non Tender, Non-Distended, No Hepato-splenomegaly Extremities: No edema, No Calf Tenderness Psych/Mental Status: Normal Affect, Appropriate Vital Signs Temp Pulse Resp BP Pulse Ox 36.9 C 81 16 149/69 H 95 08/02/18 10:08 08/02/18 12:45 08/02/18 12:45 08/02/18 10:08 08/02/18 10:08 Oxygen Flow Rate (L/min) 8 Oxygen Delivery Method Nasal Cannula Weight: 85 kg Body Mass Index (BMI) 26.9 Intake and Output for Last 24 Hours 07/31/18 08/01/18 08/02/18 23:59 23:59 23:59 Intake Total 416 / 416 847 / 847 Balance 416 / 416 847 / 847 Laboratory Tests Past 24 Hrs 08/02/18 08/02/18 08/02/18 02:33 02:33 12:40 WBC 18.6 H RBC 2.60 L Hgb 7.1 L 7.8 L Hct 22.6 L 24.5 L MCV 86.9 MCH 27.3 MCHC 31.4 L RDW 15.6 H RDW Differential 49.4 H Plt Count 331 MPV 8.2 Immature Gran % (Auto) 0.300 Neut % (Auto) 83.3 H Lymph % (Auto) 7.7 L Riley % (Auto) 7.9 Eos % (Auto) 0.6 Baso % (Auto) 0.2 Absolute Neuts (auto) 15.5 H Absolute Lymphs (auto) 1.44 Total Counted Not Reportable Sodium 140 Potassium 3.7 Chloride 101 Carbon Dioxide 28.0 Anion Gap 11 BUN 31 H Creatinine 6.98 H Estim Creat Clear Calc 12.20 Est GFR (MDRD) Af Amer 11 L Est GFR (MDRD) Non-Af 9 L BUN/Creatinine Ratio 4.4 L Glucose 103 Calcium 8.1 L Assessment/Plan Patient seen and examined independently. Data reviewed. I agree with the above note by the physician district administrative assistant. 1. Acute blood loss anemia s/p 3 units of PRBCs Hg 9.5 to 5.8 in 1 month normal colonoscopy on 06/24 except internal and external hemorrhoids Marina declined patient, as felt to be a slow bleed (apparently this was GI, but unknown physician). Plan, as of right now, is for EGD as scheduled in August. Monitor 2. Acute hypoxic resp failure 2/2 CHF d/t volume overload receiving HD today 3. ESRD HD today 4. Dispo: undetermined will depend on if H/H stable, no resp issues. Code Visit Inpatient E&M: 79943 Subs Hosp L2
--- NOTE | 2018-08-02 14:36 | CASEMGMT ---
[facility] is in-network with patient's insurance, per Wilfredo's website.
--- NOTE | 2018-08-02 15:27 | PCM.CONS.R ---
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 He has a new AV fistula that we have been using 16-gauge needles for the past week. He also has a tunneled dialysis catheter. He had issue with infiltration of his access last treatment on . He has had persistent abdominal discomfort of unclear etiology. He has anorexia that persists despite being on PPI with associated weight loss. He underwent a colonoscopy by Dr. Owens that was essentially unremarkable. Subsequently was referred to gastroenterology Dr. Murali Rueda in [place] who scheduled him for an outpatient EGD in late August. He is admitted for persistent nausea with vomiting and abdominal discomfort. He denied hematemesis, melena, hematochezia. He was found to be profoundly anemic with a hemoglobin of 5.8. He received 3 units of packed red blood cells. He was very short of breath and weak and lightheaded for the past few days. He has a history of anemia with various adverse side effects with erythropoietin therapy. He received Mircera with episodes of syncope and flank pain. This was switched over to Aranesp at the [facility]. Hemoglobin recently dropped down to 7.8 as an outpatient prior to admission after they have been steady over 11 for several weeks. General surgery recommended transfer to tertiary care center. Attempts were made to transfer him to [facility] who declined. Arrangements are made for transfer to [facility] today. Past medical history significant for type 2 diabetes mellitus, was on metformin up until the time of his admission for kidney failure in December of this year. Hypothyroidism, HTN, HLD, DAVID on CPAP, chronic leukocytosis, abdominal lymphadenopathy on CT abdomen. - Allergies Allergies: Allergies epoetin beta [From Mircera] Adverse Reaction (Verified 08/01/18 16:35) back pain - Current Medications Current Medications: Current Medications Albuterol/Ipratropium (Duoneb) 3 ml INHALATION Q6HWA.RT ROCKY Last Admin: 08/02/18 12:40 Dose: 3 ml Pantoprazole Sodium 40 mg/ (Sodium Chloride) 110 mls @ 330 mls/hr IV BID ROCKY Last Admin: 08/01/18 22:05 Dose: 330 mls/hr Magnesium Hydroxide (Milk Of Magnesia) 30 ml PO DAILY PRN PRN Reason: Constipation Nutritional Formula (Nepro Carb Steady) 120 ml PO 4X/DAY [facility] Last Admin: 08/01/18 21:17 Dose: 120 ml Sodium Chloride () 5 - 30 ml IV UD PRN PRN Reason: SALINE FLUSH Last Admin: 08/02/18 10:12 Dose: 10 ml - Past Medical History Past Medical History (Chronic Problems): Chronic Problems (Last Reviewed 07/04/18 @ 12:49 by Kady Freire) ESRD (end stage renal disease) (Chronic) Lymphadenopathy (Chronic) Hyperlipidemia (Chronic) Hypothyroidism (Chronic) Hypertension (Chronic) Type II diabetes mellitus (Chronic) - Past Surgical History Surgical History: - - Social History Smoking Status: Never smoker - Family History Maternal Family History: Family History (Last Reviewed 07/04/18 @ 12:49 by Kady Freire) Father No problems noted. History Items: Diabetes Paternal Family History: Family History (Last Reviewed 07/04/18 @ 12:49 by Kady Freire) Father No problems noted. History Items: Stroke Review of Systems Constitutional: Reports: Anorexia, Fever, Weakness, Fatigue. Denies: Chills Cardiovascular: Reports: Edema. Denies: Chest Pain Respiratory: Reports: Cough, Shortness of Breath, Shortness of breath upon exertion, Wheezing Gastrointestinal: Reports: Abdominal Pain, Nausea, Vomiting. Denies: Constipation, Diarrhea, Hematemesis, Hematochezia, Melena Genitourinary: Denies: Dysuria Musculoskeletal: Denies: Arm Pain, Joint swelling Skin: Denies: Rash Neurological: Denies: Balance problems Psychiatric: Reports: Anxiety, Depression Hematologic/ Lymphatic: Reports: Anemia. Denies: Hx of blood clot Patient Problems: Active and Suspected Problems (Last Reviewed 07/04/18 @ 12:49 by Kady Freire) Anemia (Acute) Blood loss anemia (Acute) Chronic renal failure, stage 4 (severe) (Acute) - Physical Exam General: Alert, Oriented x3, Cooperative, No apparent distress HEENT: PERRLA, EOMI Oral: Dry Mucosa Neck: Supple Lungs: Clear to auscultation Cardiovascular: Regular rate Abdomen: Bowel Sounds Present, Soft, Non Tender, Non-Distended Extremities: No edema Skin: No rashes Musculoskeletal: No Muscle Wasting Psych/Mental Status: Normal Affect, Appropriate, Alert and oriented to time, place, person, mood and affect Vital Signs Temp Pulse Resp BP Pulse Ox 98.5 F 81 16 143/81 H 95 08/02/18 10:08 08/02/18 12:45 08/02/18 12:45 08/02/18 11:22 08/02/18 10:08 Oxygen Flow Rate (L/min) 8 Oxygen Delivery Method Nasal Cannula Weight: 85 kg Body Mass Index (BMI) 26.9 Intake and Output for Last 24 Hours 07/31/18 08/01/18 08/02/18 23:59 23:59 23:59 Intake Total 416 / 416 847 / 847 Balance 416 / 416 847 / 847 Laboratory Tests Past 24 Hrs 08/02/18 08/02/18 08/02/18 02:33 02:33 12:40 WBC 18.6 H RBC 2.60 L Hgb 7.1 L 7.8 L Hct 22.6 L 24.5 L MCV 86.9 MCH 27.3 MCHC 31.4 L RDW 15.6 H RDW Differential 49.4 H Plt Count 331 MPV 8.2 Immature Gran % (Auto) 0.300 Neut % (Auto) 83.3 H Lymph % (Auto) 7.7 L [place] % (Auto) 7.9 Eos % (Auto) 0.6 Baso % (Auto) 0.2 Absolute Neuts (auto) 15.5 H Absolute Lymphs (auto) 1.44 Total Counted Not Reportable Sodium 140 Potassium 3.7 Chloride 101 Carbon Dioxide 28.0 Anion Gap 11 BUN 31 H Creatinine 6.98 H Estim Creat Clear Calc 12.20 Est GFR (MDRD) Af Amer 11 L Est GFR (MDRD) Non-Af 9 L BUN/Creatinine Ratio 4.4 L Glucose 103 Calcium 8.1 L Clinical Impression(s) from Imaging Studies Chest X-Ray 08/01/18 13:20 IMPRESSION: Bilateral airspace disease suggestive of pulmonary edema. Infection should be ruled out if clinically indicated. Electronically Signed: Godwin Palmer MD at 13:47 EDT Tel [phone], Service support , Assessment/Plan All Active Problems (Last Reviewed 07/04/18 @ 12:49 by Kady Freire) Screening for intestinal cancer (Acute) Anemia (Acute) Blood loss anemia (Acute) Enteritis (Acute) Chronic renal failure, stage 4 (severe) (Acute) Chronic renal insufficiency, stage V (Acute) ELMO (acute kidney injury) (Acute) Hyperkalemia (Acute) Community acquired pneumonia (Acute) 1. ESRD due to interstitial nephritis on hemodialysis TTS. Seen on dialysis. tolerated 3.5L fluid removal. Creatinine at 9-10 upon presentation to the hospital back in December. Unresponsive to steroid therapy. Has left forearm AVF we have been using with 16g needles x1 week. Infiltration event at chronic center x1. Also has tunneled dialysis catheter. Seen on dialysis today with with 3.5 L fluid removal. Shortness of breath improved along with his cough. Chest x-ray with interstitial alveolar infiltrates. 2. Acute anemia rule out GI bleed s/p 3 units packed red blood cell infusion. Epo 10K units ?1 subcu today. Transferred to [facility] for endoscopic workup. 3. Type II diabetes mellitus stable managed by primary care 4. Hypertension stable 5. Persistent abdominal pain with weight loss, lymphadenopathy. Etiology unknown. 6. Leukocytosis etiology unknown
--- NOTE | 2018-08-02 15:49 | PCM.DC ---
- Discharge Diagnoses Current Active Problems: Current Active and Chronic Problems (Last Reviewed 07/04/18 @ 12:49 by Kady Freire) Anemia (Acute) ESRD (end stage renal disease) (Chronic) Blood loss anemia (Acute) Chronic renal failure, stage 4 (severe) (Acute) You will use the following diet at home:: Other - as directed by receiving facility Your food should be the consistency of: Regular Your liquids should be the consistency of: Regular/Thin Discharge Activity: - - as directed Allergies/Adverse Reactions: Allergies epoetin beta [From Mircera] Adverse Reaction (Verified 08/01/18 16:35) back pain Medications to take at Discharge Levothyroxine [Synthroid] 150 mcg PO QHS 10/28/15 Simvastatin [Zocor] 20 mg PO QHS 10/28/15 Citalopram Hydrobromide [Citalopram HBr] 40 mg PO QHS 01/03/18 Ergocalciferol [Vitamin D] 50,000 unit PO WE 01/21/18 Amlodipine [Norvasc] 10 mg PO QHS 05/08/18 hydrALAZINE [Apresoline] 25 mg PO TID 05/08/18 Calcium Acetate [Calcium Acetate] 2 cap PO TIDCM 08/01/18 Pantoprazole Sodium [Protonix] 40 mg PO DAILY 08/01/18 Yoko-Anna 0.8 mg PO QHS 08/01/18 Primary Care Physician: Marques Caba MD [Primary Care Provider] - Test Results: Test results from this visit will be discussed in further detail at your follow-up appointment, if applicable. Please Follow Up With: Vannessa Blakely DO - Nephrology Proposed Discharge Date: 08/02/18
--- NOTE | 2018-08-02 15:51 | PCM.DC.SUM ---
<Lance Hernandez - Last Filed: 08/02/18 15:51> Discharge Date and Diagnosis - Problem List Patient Problems: Active and Suspected Problems (Last Reviewed 07/04/18 @ 12:49 by Kady Freire) Anemia (Acute) Blood loss anemia (Acute) Chronic renal failure, stage 4 (severe) (Acute) Date of Admission: 08/01/18 Date of Discharge: 08/02/18 - Primary Discharge Diagnosis Active and Suspected Problems (Last Reviewed 07/04/18 @ 12:49 by Kady Freire) Acute blood loss anemia 2/2 suspected GI bleed Acute respiratory failure 2/2 CHF exacerbation 2/2 volume overload - resolving Chronic abdominal pain and nausea, mesenteric and retroperitoneal lymphadenopathy ESRD, last dialysis today HTN stable Hypothyroid GERD DMt2 diet controlled Chronic leukocytosis unclear etiology - Secondary Discharge Diagnosis Chronic Problems (Last Reviewed 07/04/18 @ 12:49 by Kady Freire) ESRD (end stage renal disease) (Chronic) Lymphadenopathy (Chronic) Hyperlipidemia (Chronic) Hypothyroidism (Chronic) Hypertension (Chronic) Type II diabetes mellitus (Chronic) Hospital Course and Treatment Imaging Results: 08/02/18 09:29 Echo Complete [ECHO] Routine Results pending RAD/Chest PA and Lateral IMPRESSION: Bilateral airspace disease suggestive of pulmonary edema. Infection should be ruled out if clinically indicated. Consults: [facility]dy - nephrology [facility] - Gen surgery Operations: None Procedures: 2-D Echocardiogram, Dialysis Summary of Care Provided: Physical exam on day of discharge: See daily progress note Hospital course: The patient is a 58 year old M with a history of end-stage renal disease, patient of Dr. Blakely, with a history of chronic abdominal pain and nausea and dry heaving daily, mesenteric and retroperitoneal lymphadenopathy of unclear etiology, chronic leukocytosis of unclear etiology, hypertension, hypothyroidism, DMt2 diet controlled who presented to the emergency room with chief complaint of shortness of breath. Over the past week he had become progressively more short of breath, very weak, tired, dizzy and lightheaded with ambulation. Very short of breath at night and unable to sleep for the past 2 nights. He was found to be severely anemic with a hemoglobin of 5.8. He had declined about 4 g over the past month. About 1 month prior he went to the emergency room for abdominal pain. At that time he was found to have a positive occult blood, and at that time a CT of the abdomen was obtained showing the adenopathy as mentioned above. He was referred to gen surgery Dr. Owens and a colonoscopy was performed which was difficult due to not being able to enter the terminal ileum. He was then referred to GI as an outpatient but was not able to be seen for several months and this has not happened yet. This admission, he was admitted to the PCU for monitorine and started on 3 units of packed red blood cells. He denied having any black or tarry stools, no bright red blood in his stools, and no coffee-ground or bloody emesis tho he was nauseous and dry heaving daily. He was seen by general surgery who did not feel that there is anything else they can offer him at this time and felt that he needed acute referral to a GI specialist which we do not have here at this time. The patient developed increased shortness of breath overnight-he had an elevated BNP and a chest x-ray consistent with pulmonary edema, and had significant increased oxygen demand. He does not use oxygen at home. He appeared to have congestive heart failure. An echocardiogram was obtained (pending) as he had not had CHF before and we have no echo in the system, and he was started on IV Lasix. He was dialyzed the following day with resolution of his increased oxygen demand. He still continues to have some mild shortness of breath however his respiratory failure has resolved at this time. We recommended that he be transferred to have his blood loss anemia worked up by GI. He was accepted at [facility] and he was transferred in stable condition. Total he received 3 units of packed red blood cells, 1 further unit was held. Dialysis was completed on 08/02/2018. This patient was seen by Lance Hernandez PA-C under the supervision of Doctor Crisostomo. [] Discharge Activity: - - as directed Home Medications: Medications to take at Discharge Levothyroxine [Synthroid] 150 mcg PO QHS 10/28/15 Simvastatin [Zocor] 20 mg PO QHS 10/28/15 Citalopram Hydrobromide [Citalopram HBr] 40 mg PO QHS 01/03/18 Ergocalciferol [Vitamin D] 50,000 unit PO WE 01/21/18 Amlodipine [Norvasc] 10 mg PO QHS 05/08/18 hydrALAZINE [Apresoline] 25 mg PO TID 05/08/18 Calcium Acetate [Calcium Acetate] 2 cap PO TIDCM 08/01/18 Pantoprazole Sodium [Protonix] 40 mg PO DAILY 08/01/18 Yoko-Anna 0.8 mg PO QHS 08/01/18 Primary Care Physician: Marques Caba MD [Primary Care Provider] - Please Follow Up With: Vannessa Blakely DO - Nephrology Medical Necessity - Tobacco Use Smoking Status: Never smoker Tobacco Use: Chew Meaningful Use Info Meaningful Use Diagnoses (Choose all that apply): None applicable <Liam Crisostomo - Last Filed: 08/02/18 16:22> Discharge Date and Diagnosis - Primary Discharge Diagnosis Active and Suspected Problems (Last Reviewed 07/04/18 @ 12:49 by Kady Freire) Anemia (Acute) Blood loss anemia (Acute) Chronic renal failure, stage 4 (severe) (Acute) - Secondary Discharge Diagnosis Chronic Problems (Last Reviewed 07/04/18 @ 12:49 by Kady Freire) ESRD (end stage renal disease) (Chronic) Lymphadenopathy (Chronic) Hyperlipidemia (Chronic) Hypothyroidism (Chronic) Hypertension (Chronic) Type II diabetes mellitus (Chronic) Hospital Course and Treatment Imaging Results: 08/02/18 09:29 Echo Complete [ECHO] Routine Operations: None Procedures: 2-D Echocardiogram, Dialysis Summary of Care Provided: Patient seen and examined independently. Data reviewed. I agree with the above note by the physician maintenance assistant. The patient is a 58 year old M since with symptomatic anemia. Hemoglobin of 5.8. Patient was transfused here total of 3 units. Hemoglobin came up to 7.1 after the first 2 units. Gastroenterology at [facility] stated the patient can follow-up as outpatient, however given the symptomatic anemia the fact that has not been fully worked up it is felt most. The patient be transferred to another facility. Patient was accepted by [facility]. Patient has already had a colonoscopy and will require an EGD and possibly more studies to further evaluate what is suspected a GI bleed. [] Discharge Diet: Renal Diet Discharge Activity: - Minutes spent on discharge:: 32 Patient Condition:: Stable Meaningful Use Info Meaningful Use Diagnoses (Choose all that apply): None applicable Code Visit Inpatient E&M: 90380 Disch Hosp
[2018-08-02] MEDS: Heparin 10,000 UNITS/10 ML Vial IV (15:55)
--- NOTE | 2018-08-02 16:26 | DIALYSIS ---
Hemodialysis x 4 hrs -3500ml off. tolerated well. cvc closed with heparin to each lumen fill volume only. Report to Alysa PINA
[2018-08-02] MEDS: Nepro Liquid 120 ML LIQUID PO (17:34)
--- NOTE | 2018-08-02 17:52 | NURSING ---
Report called to SILVANA Hamilton at [facility].
== END 2018-08-02 18:11 | disposition short-term general hospital (02) | DRG 811 ==
LOC: ED 17:57 → PCU 08-02 07:12
PROVIDERS: Internal Medicine; Physician Assistant; Admitting Provider Family Medicine; Emergency Provider Emergency Medicine; Family Provider Family Medicine; PCP Family Medicine
DX: D62 Acute posthemorrhagic anemia (principal); N18.6 End stage renal disease; J96.01 Acute respiratory failure with hypoxia; I13.2 Hypertensive heart and chronic kidney disease with heart failure and with stage 5 chronic kidney disease, or end stage renal disease; K92.2 Gastrointestinal hemorrhage, unspecified; E11.22 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 diabetic chronic kidney disease; Z99.2 Dependence on renal dialysis; E78.5 Hyperlipidemia, unspecified; E03.9 Hypothyroidism, unspecified; K21.9 Gastro-esophageal reflux disease without esophagitis; G89.29 Other chronic pain; R10.9 Unspecified abdominal pain; R11.0 Nausea; R59.1 Generalized enlarged lymph nodes; D72.829 Elevated white blood cell count, unspecified; I50.9 Heart failure, unspecified
CPT/HCPCS: 36415; 71046; 80048; 83880; 85014; 85018; 85025; 86850; 86900; 86920; 90937; 93306; 94640; 99282; J0885; J7030; J7040; P9016; A4216; G0257; J1940

== ENCOUNTER 2018-08-10 13:50 | Emergency (ER) | payer BC, SELFPAY ==
[2018-08-10 13:51] VITALS: BP 160/82; PULSE 69; RESP 16; TEMP 36; O2SAT 100
--- NOTE | 2018-08-10 14:02 | EKG12_ITS ---
Test Reason : Blood Pressure : / mmHG Vent. Rate : 065 BPM Atrial Rate : 065 BPM P-R Int : 148 ms QRS Dur : 082 ms QT Int : 492 ms P-R-T Axes : 070 003 049 degrees QTc Int : 511 ms Normal sinus rhythm Prolonged QT Abnormal ECG Confirmed by ANABELL COLON, SASHA ([id number]), assistant editor HARPAL REVELES ([id number]) on 08/13/2018 2:38:09 PM Referred By: ROMERO Confirmed By:SASHA HUNG MD
--- NOTE | 2018-08-10 14:02 | RAD_ITS ---
STUDY: X-RAY CHEST REASON FOR EXAM: Male, 58 years old. CP, SOB, BACK PAIN SINCE THIS A.M. FLUID RETENTION TECHNIQUE: Single AP portable view of the chest. COMPARISON: August 01, 2018 FINDINGS: There is much improved aeration of the lungs. There could be right suprahilar atelectasis. There is no demonstrated pleural abnormality. Normal size heart. Normal mediastinum and kieran. Normal visualized pulmonary arteries. Normal visualized aortic arch and descending thoracic aorta. Normal visualized thoracic spine. Normal visualized ribs, clavicles, and shoulders. There is no demonstrated abnormality of the visualized soft tissue structures of the upper abdomen. RAD/Chest 1 View (Portable) IMPRESSION: There is much improved aeration of the lungs. There could be right suprahilar atelectasis. Electronically Signed: Nakia Blakely MD at 15:25 EDT , Service support ,
--- NOTE | 2018-08-10 14:04 | ED.VISSUMM ---
- ER Visit Summary Date of Service: 08/10/18 Chief Complaint: [] Left-sided chest pain this morning History of Present Illness: The patient is a 58 M [] history diabetes hypertension end-stage renal disease right chest dialysis catheter, left arm fistula complains of chest pain began this morning, he has no history of MA PE DVT states the pain is like a pressure never really had it before. He was dialyzed Saturday uncomplicated Indicates he was admitted to the hospital recently for anemia etiology which is unclear he required 3 unit blood transfusion, he was then transferred to [facility] where he had an EGD additional testing that was unremarkable no signs of GI bleeding he was discharged home Saturday or Saturday, he also indicates had aggressive dialysis during that admission, he is having no vomiting of blood no blood per rectum no fever no cough, he does not recall ever having any type of cardiac evaluation, he does not know his cholesterol he does not smoke Physical Examination: [] Resting comforting the bed in no distress she points to the left chest the right chest has the dialysis catheter is in good shape nontender no drainage the HEENT exam neck unremarkable lungs are clear the heart tones are normal the chest wall does not show any obvious areas of tenderness the abdomen soft nontender left forearm area has a dialysis fistula with a good thrill his hand function is normal with good perfusion pulses are symmetric neurologically is awake moving all 4 his lower extremity exam shows no sinus clubbing or edema he is a very thin gentleman and his lungs are very clear Test Results: [] Emergency Department Course and Treatment: [] EKG CBC screening labs chest x-ray, the screening labs EKG chest x-ray are all generally unremarkable showing no acute changes please see those reports, on reevaluation is resting comforting the bed I discussed admission with him, I discussed the concept of chest pain being from life-threatening etiologies, his hemoglobin turns at 8.5 this is baseline for him again he states he is feeling better he understands all the above and the risk but he prefers outpatient management in fact he has an appointment see his physician this Saturday and he will return for change in symptoms Treatment Plan: [] Disposition: [] Home stable declined admission Impression: [] Left-sided chest pain improved to resolved, history of end-stage renal disease on dialysis history of recent admission and workup for anemia This note was generated with Style on Screenation software. It may contain incorrect words, spelling, and punctuation that were not noted in review of the chart prior to signing ED Disposition - Plan for ED Patient: Chief Complaint: Shortness of Breath Referrals: Marques Caba MD [Primary Care Provider] -
--- NOTE | 2018-08-10 14:07 | ED.DCSUM_ITS ---
- ER Visit Summary Date of Service: 08/10/18 Chief Complaint: [] Left-sided chest pain this morning History of Present Illness: The patient is a 58 M [] history diabetes hypertension end-stage renal disease right chest dialysis catheter, left arm fistula complains of chest pain began this morning, he has no history of [place] PE DVT states the pain is like a pressure never really had it before. He was dialyzed Saturday uncomplicated Indicates he was admitted to the hospital recently for anemia etiology which is unclear he required 3 unit blood transfusion, he was then transferred to [facility] where he had an EGD additional testing that was unremarkable no signs of GI bleeding he was discharged home Saturday or Saturday, he also indicates had aggressive dialysis during that admission, he is having no vomiting of blood no blood per rectum no fever no cough, he does not recall ever having any type of cardiac evaluation, he does not know his cholesterol he does not smoke Physical Examination: [] Resting comforting the bed in no distress she points to the left chest the right chest has the dialysis catheter is in good shape nontender no drainage the HEENT exam neck unremarkable lungs are clear the heart tones are normal the chest wall does not show any obvious areas of tenderness the abdomen soft nontender left forearm area has a dialysis fistula with a good thrill his hand function is normal with good perfusion pulses are symmetric neurologically is awake moving all 4 his lower extremity exam shows no sinus clubbing or edema he is a very thin gentleman and his lungs are very clear Test Results: [] Emergency Department Course and Treatment: [] EKG CBC screening labs chest x-ray , the screening labs EKG chest x-ray are all generally unremarkable showing no acute changes please see those reports, on reevaluation is resting comforting the bed I discussed admission with him, I discussed the concept of chest pain being from life-threatening etiologies, his hemoglobin turns at 8.5 this is baseline for him again he states he is feeling better he understands all the above and the risk but he prefers outpatient management in fact he has an appointment see his physician this Saturday and he will return for change in symptoms Treatment Plan: [] Disposition: [] Home stable declined admission Impression: [] Left-sided chest pain improved to resolved, history of end-stage renal disease on dialysis history of recent admission and workup for anemia This note was generated with GERSation software. It may contain incorrect words, spelling, and punctuation that were not noted in review of the chart prior to signing ED Disposition - Plan for ED Patient: Chief Complaint: Shortness of Breath Referrals: Marques Caba MD [Primary Care Provider] -
[2018-08-10 14:08] VITALS: O2SAT 100
[2018-08-10] MEDS: Aspirin 81 MG TAB.CHEW 324 MG PO (14:13)
[2018-08-10 14:21] LABS: Absolute Neutrophil Count 8.8 X10^3/uL (2.0-7.7); Basophil# 0.02 X10^3/uL; Basophil% 0.2 % (0-1); Eosinophil# 0.17 X10^3/uL; Eosinophils% 1.5 % (0-5); Hematocrit 27.5 % (40-54); Hemoglobin 8.4 g/dl (13.0-16.5); Lymphocyte % 12.5 % (19-41); Mean Corp Hgb Conc 30.5 g/gl (32-36); Mean Corpuscular Hgb 26.9 pg (27.0-32.0); Mean Corpuscular Volume 88.1 fL (80-94); Mean Platelet Vol. 8.2 fl (6.2-12.0); Monocyte# 0.82 X10^3/uL; Monocyte% 7.3 % (0-10); Neutrophil # 8.78 X10^3/uL (2.7-7.7); Neutrophil % 78.3 % (47-70); Platelet Count 445 K/mm3 (150-450); RBC Distribution Width CV 15.2 % (11.6-14.6); RBC Distribution Width SD 47.9 fl (35.1-43.9); Red Blood Count 3.12 M/mm3 (4.6-6.2); White Blood Count 11.2 K/mm3 (4.4-11.0)
[2018-08-10 14:25] LABS: POSITIVE COUNT NO; POSITIVE DIFFERENTIAL NO; POSITIVE MORPHOLOGY NO
[2018-08-10 14:36] LABS: Anion Gap 10 (5-15); BUN 28 mg/dL (7-18); BUN/Creat Ratio 4.6 RATIO (10-20); Calcium,Total 8.5 mg/dL (8.5-10.1); Chloride 95 mmol/L (98-107); Creatinine, Serum 6.08 mg/dL (0.70-1.30); EST Glomerular Filtration Rate 10 mL/min (>60); Est Glom Filt Rate - Afr Amer 12 mL/min (>60); Estimated Creatinine Clearance 15.49 ml/min; Glucose 148 mg/dL (74-106); Potassium 3.5 mmol/L (3.5-5.1); Sodium Level 134 mmol/L (136-145)
--- NOTE | 2018-08-10 15:07 | ED.DEP ---
ED Disposition - Plan for ED Patient: Chief Complaint: Shortness of Breath Instructions: ED Chest Pain Atypical Unkn Cause Referrals: Marques Caba MD [Primary Care Provider] -
[2018-08-10 15:40] VITALS: BP 155/75; PULSE 71; RESP 16; O2SAT 100
== END 2018-08-10 15:42 | disposition home or self-care (01) ==
LOC: ED 14:07
PROVIDERS: Emergency Provider Emergency Medicine; Family Provider Family Medicine; PCP Family Medicine
DX: R07.9 Chest pain, unspecified (principal); I12.0 Hypertensive chronic kidney disease with stage 5 chronic kidney disease or end stage renal disease; E11.22 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 diabetic chronic kidney disease; N18.6 End stage renal disease; Z99.2 Dependence on renal dialysis; Z79.899 Other long term (current) drug therapy
CPT/HCPCS: 71045; 80048; 83880; 84484; 85025; 93005; 99285; A4216

== ENCOUNTER → 2018-08-27 16:01 | Outpatient (CLI) | payer BC, SELFPAY ==
[2018-08-27 17:16] LABS: Hematocrit 32.3 % (40-54); Hemoglobin 9.6 g/dl (13.0-16.5); Mean Corp Hgb Conc 29.7 g/gl (32-36); Mean Corpuscular Hgb 26.2 pg (27.0-32.0); Mean Corpuscular Volume 88.3 fL (80-94); Mean Platelet Vol. 8.4 fl (6.2-12.0); Platelet Count 370 K/mm3 (150-450); RBC Distribution Width CV 14.9 % (11.6-14.6); RBC Distribution Width SD 48.1 fl (35.1-43.9); Red Blood Count 3.66 M/mm3 (4.6-6.2); White Blood Count 15.6 K/mm3 (4.4-11.0)
[2018-08-27 17:24] LABS: Scan Indicated on CBC? Y/N NO
[2018-08-27 17:37] LABS: Anion Gap 9 (5-15); BUN 55 mg/dL (7-18); BUN/Creat Ratio 7.1 RATIO (10-20); Calcium,Total 8.8 mg/dL (8.5-10.1); Chloride 100 mmol/L (98-107); Creatinine, Serum 7.78 mg/dL (0.70-1.30); EST Glomerular Filtration Rate 8 mL/min (>60); Est Glom Filt Rate - Afr Amer 9 mL/min (>60); Glucose 88 mg/dL (74-106); Potassium 4.5 mmol/L (3.5-5.1); Sodium Level 136 mmol/L (136-145)
== END ==
PROVIDERS: Family Provider Family Medicine; PCP Family Medicine; Referring Provider Surgery; Visit Provider Surgery
DX: T82.898A Other specified complication of vascular prosthetic devices, implants and grafts, initial encounter (principal); Z01.818 Encounter for other preprocedural examination
CPT/HCPCS: 36415; 80048; 85027

== ENCOUNTER 2018-09-01 08:59 | Day surgery (SDC) | payer BC, SELFPAY ==
[2018-09-01 07:11] VITALS: BMI 27.1
--- NOTE | 2018-09-01 11:17 | PCM.OPRPT ---
Problem List (1) Problem with dialysis access Status: Acute Qualifiers: Encounter type: initial encounter Report of Operation Date of Procedure: 09/01/18 Pre-Operative Diagnosis: Diminished flow left forearm radiocephalic arteriovenous fistula Post-Operative Diagnosis: Proximal fistula diffuse venous stenosis Surgery/Procedure Performed:: Left upper extremity fistulogram with 5 x 80 mm ever cross angioplasty Description of Surgical Findings:: Timeout and informed consent was obtained. 58-year-old gent was taken to the special procedures lab. Placed on the table. 50 mcg of fentanyl 1 mg of Versed were given as intravenous sedation. The left extremity was sterilely prepped and draped. Under ultrasound guidance 2% lidocaine was instilled closer to the antecubital space. Local was instilled. Retrograde access was achieved. Micropuncture wire inserted. 6 [place] short sheath was inserted. 035 angled Glidewire was used to place a 4 [place] glide cath into the radial artery proximal to the anastomosis. Using Isovue a fistulogram was taken the left forearm upper arm and chest area. This demonstrates high-grade diffuse stenosis of the proximal 6 cm of the fistula. Slight degree of arterial anastomotic stenosis. There is splitting of the cephalic vein in the mid forearm. There is otherwise an excellent upper arm outflow and good central venous outflow. The patient received 8000 units of heparin. I placed a 5 x 80 mm ever cross balloon and perform balloon angioplasty of the proximal portion of the fistula and arterial anastomosis. At the completion I reinserted a 4 [place] angled glide cath and obtained a completion view. This demonstrated now widely patent arterial anastomosis and proximal fistula venous flow. The sheath was removed. U suture of 4-0 nylon was placed. Blood loss was minimal. No apparent complication. The patient was taken back to the recovery area in satisfactory condition without apparent complication. Impression Successfully treated left forearm radiocephalic arteriovenous fistula with now widely patent proximal portion of the fistula adjacent to the arterial anastomosis. Nicely palpable pulse thrill and bruit. Pedro Owens M.D., F.A.C.S. Type of Anesthesia:: IV Sedation, Local
== END 2018-09-01 12:30 | disposition home or self-care (01) ==
LOC: CLSP 08:59
PROVIDERS: Family Provider Family Medicine; PCP Family Medicine; Referring Provider Surgery; Visit Provider Surgery
DX: T82.858A Stenosis of other vascular prosthetic devices, implants and grafts, initial encounter (principal); I12.9 Hypertensive chronic kidney disease with stage 1 through stage 4 chronic kidney disease, or unspecified chronic kidney disease; E11.22 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 diabetic chronic kidney disease; N18.4 Chronic kidney disease, stage 4 (severe); N17.9 Acute kidney failure, unspecified; Z99.2 Dependence on renal dialysis; E03.9 Hypothyroidism, unspecified; E78.5 Hyperlipidemia, unspecified; E87.5 Hyperkalemia; Z79.899 Other long term (current) drug therapy
CPT/HCPCS: 36902; 76937; 99152; 99153; Q9967; C1725; C1769

== ENCOUNTER → 2018-10-13 13:47 | Outpatient (CLI) | payer BC, SELFPAY ==
[2018-10-08 13:33] VITALS: BMI 29.2
--- NOTE | 2018-10-13 13:50 | US_ITS ---
STUDY: RENAL ULTRASOUND - COMPLETE REASON FOR EXAM: Male, 58 years old. Hematuria. TECHNIQUE: Ultrasound evaluation of the kidneys was performed with real-time and static mills-scale imaging. COMPARISON: CT abdomen and pelvis 07/01/2018. FINDINGS: RIGHT KIDNEY: Normal location of the right kidney, which is normal in size. The right kidney measures 11.3 x 4.9 x 5.5 cm. Mild increase echogenicity of the right renal cortex. The renal cortex measures cm. There is no right renal mass or cyst. There are no right renal calculi. There is no right hydronephrosis. DISTAL RIGHT URETER: There is non-visualization of the distal right ureter. There is no demonstrated right ureterovesical junction calculus. There is nonvisualization of the right ureteral jet. LEFT KIDNEY: Normal location of the left kidney, which is normal in size. The left kidney measures 10.7 x 4.0 x 5.1 cm. Mild increase echogenicity of the cortex of the left kidney. The renal cortex measures 1.3 cm. There is an anechoic cyst measuring 1.4 x 1.4 x 1.3 cm. There are no left renal calculi. There is no left hydronephrosis. DISTAL LEFT URETER: There is non-visualization of the distal left ureter. There is no demonstrated left ureterovesical junction calculus. There is nonvisualization of the left ureteral jet. BLADDER: The distended urinary bladder has a volume of 60.5 ml. There is a normal wall thickness of the distended urinary bladder. The bladder wall is 3 mm thick. There is no demonstrated mass within the urinary bladder. There are no demonstrated bladder calculi. US/Kidney and Bladder IMPRESSION: 1. Mild increase echogenicity of the renal parenchyma is suspicious for medical nephropathy. 2. No ultrasonic evidence of hydronephrosis or calculi in both kidneys. 3. Small anechoic cyst in the left kidney. Electronically Signed: Tung Vance MD at 15:42 EST , Service support ,
== END ==
PROVIDERS: Family Provider Family Medicine; PCP Family Medicine; Referring Provider Internal Medicine Nephrology; Visit Provider Internal Medicine Nephrology
DX: R31.9 Hematuria, unspecified (principal); N18.6 End stage renal disease
CPT/HCPCS: 76770

== ENCOUNTER 2018-10-31 08:17 | Day surgery (SDC) | payer BC, SELFPAY ==
[2018-10-27 14:02] VITALS: BMI 29.2
[2018-10-29 15:55] VITALS: BMI 29.2
[2018-10-30 15:09] LABS: Hematocrit 32.7 % (40-54); Hemoglobin 9.4 g/dl (13.0-16.5); Mean Corp Hgb Conc 28.7 g/gl (32-36); Mean Corpuscular Volume 90.3 fL (80-94); Mean Platelet Vol. 8.8 fl (6.2-12.0); Platelet Count 286 K/mm3 (150-450); RBC Distribution Width SD 55.4 fl (35.1-43.9); Red Blood Count 3.62 M/mm3 (4.6-6.2); Scan Indicated on CBC? Y/N NO; White Blood Count 9.3 K/mm3 (4.4-11.0)
[2018-10-30 15:26] LABS: Anion Gap 6 (5-15); BUN 21 mg/dL (7-18); BUN/Creat Ratio 4.7 RATIO (10-20); Calcium,Total 9.1 mg/dL (8.5-10.1); Chloride 98 mmol/L (98-107); Creatinine, Serum 4.46 mg/dL (0.70-1.30); EST Glomerular Filtration Rate 15 mL/min (>60); Est Glom Filt Rate - Afr Amer 18 mL/min (>60); Glucose 129 mg/dL (74-106); Potassium 4.2 mmol/L (3.5-5.1); Sodium Level 139 mmol/L (136-145)
[2018-10-31] VITALS (10 sets, daily range): BP systolic 115–144; BP diastolic 60–70; PULSE 55–74; RESP 16–18; TEMP 36.2–36.3; O2SAT 92–100; BMI 25.2
[2018-10-31 10:11] LABS: Bedside Glucose 89 mg/dL (70-110)
--- NOTE | 2018-10-31 10:21 | RAD_ITS ---
STUDY: X-RAY CHEST REASON FOR EXAM: Male, 58 years old. Right hemodialysis catheter placement. TECHNIQUE: Single AP portable view of the chest. COMPARISON: Comparison is made with prior study dated August 10, 2018. FINDINGS: A right-sided double lumen catheter has been inserted. The tip is in the proximal portion of the superior vena cava. The lungs are clear and expanded. There is no demonstrated pleural abnormality. Normal size heart. Normal mediastinum and kieran. Normal visualized pulmonary arteries. Normal visualized aortic arch and descending thoracic aorta. Normal visualized thoracic spine. Normal visualized ribs, clavicles, and shoulders. There is no demonstrated abnormality of the visualized soft tissue structures of the upper abdomen. RAD/Chest 1 View (Portable) IMPRESSION: The tip of the right double lumen catheter is in the proximal portion of the superior vena cava. Electronically Signed: Godwin Palmer MD at 14:48 EST Tel [phone], Service support ,
[2018-10-31] MEDS: Cefazolin 2 GM in 0.9% Normal Saline 100 ML IV (10:23)
--- NOTE | 2018-10-31 10:23 | DCINST_ITS ---
Discharge Diet: Renal Diet Discharge Activity: May Not Shower Lifting Restrictions: 10 pounds Additional Dressing/Incision Instructions:: Right internal jugular tunneled dialysis catheter dressing changes per the dialysis center. Elevate your left arm for comfort. Exercise her left hand with a stress ball. You may remove your left arm dressings in 2 days. You may redress them with gauze and tape as needed to protect from clothing. You may shower over the left arm in 5 days. The right chest site needs to stay clean and dry Allergies/Adverse Reactions: Allergies epoetin beta [From Mircera] Adverse Reaction (Verified 10/31/18 08:37) back pain Medications to take at Discharge Levothyroxine [Synthroid] 150 mcg PO QHS 10/28/15 Simvastatin [Zocor] 20 mg PO QHS 10/28/15 Citalopram Hydrobromide [Citalopram HBr] 40 mg PO QHS 01/03/18 Ergocalciferol [Vitamin D] 50,000 unit PO WE 01/21/18 Amlodipine [Norvasc] 10 mg PO QHS 05/08/18 hydrALAZINE [Apresoline] 25 mg PO TID 05/08/18 Calcium Acetate 2 cap PO TIDCM 08/01/18 Yoko-Anna 0.8 mg PO QHS 08/01/18 Primary Care Physician: Marques Caba MD [Primary Care Provider] - Test Results: Test results from this visit will be discussed in further detail at your follow- up appointment, if applicable. Please Follow Up With: Pedro Owens MD - [phone] When: Call to make an appointment to be seen in about 10 days.
[2018-10-31] MEDS: Bupivacaine Mpf 0.5% 30 ML VIAL (10:35)
[2018-10-31] MEDS: Heparin 10,000 UNITS/10 ML Vial 10000 UNITS (10:45)
[2018-10-31] MEDS: Heparin Injection (Vial) 5,000 UNIT/ML VIAL 5000 UNIT (11:00)
--- NOTE | 2018-10-31 13:22 | PCM.OPRPT ---
Problem List (1) Problem with dialysis access Status: Acute Qualifiers: Encounter type: subsequent encounter Report of Operation Date of Procedure: 10/31/18 Pre-Operative Diagnosis: Problem with left forearm radiocephalic acute fistula access with stenosis and pseudoaneurysm Post-Operative Diagnosis: Same Surgery/Procedure Performed:: Right internal jugular tunneled double lumen palindrome catheter. Creation left forearm radial to cephalic arteriovenous fistula with autologous harvested cephalic vein graft Description of Surgical Findings:: Informed consent was obtained. 8-year-old gent with a Room. He had 2 g of Ancef. He underwent monitored anesthesia care local anesthetic. The right neck was sterilely prepped and draped as was the chest. Under ultrasound guidance 1% lidocaine mixed 50-50 with 0.5% Marcaine was used for anesthetic. Local was used to identify the right internal jugular vein micropunch needle inserted micropuncture wire inserted micropuncture sheath inserted 035 J-wire was inserted fluoroscopy demonstrated good positioning local was instilled down upon the chest wall exit site was selected the 19 cm pre-curved Palladone catheter was tunneled from the chest to the neck. Reference #[id number] AP with a lot #[id number] and expiry date of 12/28/2022 The sheath over the wire the dilators were placed in the sheath was inserted in the water remove the catheter advanced through the sheath the sheath was split the catheter was positioned at the SVC atrial junction the counterincision was closed with interrupted 5-0 Vicryl subdermal stitch the catheter secured to skin with 3-0 nylon it was aspirated aspirated easily was flushed with saline and heparinized saline for a channel sterile dressings applied Attention was drawn to the left forearm which was sterilely prepped draped. I use ultrasound the cephalic vein side branch had 0.5% lidocaine used as local anesthetic and then throughout the procedure LC 0.25% Marcaine. Longitudinal incision was made over that side branch cephalic vein it appeared to be adequate I dissected it free for a length of about 12 cm was ligated proximally distally the vein was then irrigated appear to have a nice diameter. I then made an incision distal to the pseudoaneurysm portion of the current fistula dissected around that cephalic vein in that location dissected that free I then made a longitudinal incision over the radial artery in an appropriate position but sharp and blunt dissection which was now in about the mid forearm I cannot i.e. is identified the radial artery so that I had to go back down to the wrist where the previous anastomosis was fine the cephalic vein close to the arterial anastomosis dissected around that. The patient now had the harvested autologous vein tunneled from the wrist to the proximal forearm. Patient received 8000 units of heparin and then received additional thousand units heparin during the procedure. The proximal graft was amputated and then a the vein graft was heart spatulated and then the end-to-end anastomosis created with running 7-0 Prolene. There appeared to be good inflow good position applied. I then did a end-to-side anastomosis to the cephalic vein in the proximal forearm with the same kind of running 7-0 Prolene by placing peripheral vascular clamps and making a longitudinal arteriotomy which extended with Jacobs scissors. At the completion there appeared to be adequate flow the the portion of autologous vein was somewhat smaller than the in situ vein. However felt that I had excluded the pseudoaneurysm excluded the area of stenosis in the proximal portion of the fistula. It is of note however that this procedure was very challenging and a portion of autologous vein used for the bypass ended up being smaller than anticipated. Sponge instrument and needle counts reported as correct blood loss was 200 cc entire procedure well hand was viable he was taken to the recovery intact condition stat portable chest x-ray is pending. Specimens none drains none blood loss 200 cc Pedro Owens M.D., F.A.C.S. Type of Anesthesia:: Local MAC Anesthesiologist: Rodger Hall
[2018-10-31] MEDS: Bupivacaine 0.25% 30 ML Vial (13:25)
--- NOTE | 2018-10-31 13:28 | OP.PCM_ITS ---
Problem List (1) Problem with dialysis access Status: Acute Qualifiers: Encounter type: subsequent encounter Report of Operation Date of Procedure: 10/31/18 Pre-Operative Diagnosis: Problem with left forearm radiocephalic acute fistula access with stenosis and pseudoaneurysm Post-Operative Diagnosis: Same Surgery/Procedure Performed:: Right internal jugular tunneled double lumen pali ndrome catheter. Creation left forearm radial to cephalic arteriovenous fistula with autologous harvested cephalic vein graft Description of Surgical Findings:: Informed consent was obtained. 8-year-old gent with a Room. He had 2 g of Ancef. He underwent monitored anesthesia care local anesthetic. The right neck was sterilely prepped and draped as was the chest. Under ultrasound guidance 1% lidocaine mixed 50-50 with 0.5% Marcaine was used for anesthetic. Local was used to identify the right internal jugular vein micropunch needle inserted micropuncture wire inserted micropuncture sheath inserted 035 J-wire was inserted fluoroscopy demonstrated good positioning local was instilled down upon the chest wall exit site was selected the 19 cm pre-curved Palladone catheter was tunneled from the chest to the neck. Reference #[id number] AP with a lot #[id number] and expiry date of 12/28/2022 The sheath over the wire the dilators were placed in the sheath was inserted in the water remove the catheter advanced through the sheath the sheath was split the catheter was positioned at the SVC atrial junction the counterincision was closed with interrupted 5-0 Vicryl subdermal stitch the catheter secured to skin with 3-0 nylon it was aspirated aspirated easily was flushed with saline and heparinized saline for a channel sterile dressings applied Attention was drawn to the left forearm which was sterilely prepped draped. I use ultrasound the cephalic vein side branch had 0.5% lidocaine used as local anesthetic and then throughout the procedure LC 0.25% Marcaine. Longitudinal incision was made over that side branch cephalic vein it appeared to be adequate I dissected it free for a length of about 12 cm was ligated proximally distally the vein was then irrigated appear to have a nice diameter. I then made an incision distal to the pseudoaneurysm portion of the current fistula dissected around that cephalic vein in that location dissected that free I then made a longitudinal incision over the radial artery in an appropriate position but sharp and blunt dissection which was now in about the mid forearm I cannot i.e. is identified the radial artery so that I had to go back down to the wrist where the previous anastomosis was fine the cephalic vein close to the arterial anastomosis dissected around that. The patient now had the harvested autologous vein tunneled from the wrist to the proximal forearm. Patient received 8000 units of heparin and then received additional thousand units heparin during the procedure. The proximal graft was amputated and then a the vein graft was heart spatulated and then the end-to-end anastomosis created with running 7-0 Prolene. There appeared to be good inflow good position applied. I then did a end-to- side anastomosis to the cephalic vein in the proximal forearm with the same kind of running 7-0 Prolene by placing peripheral vascular clamps and making a longitudinal arteriotomy which extended with Jacobs scissors. At the completion there appeared to be adequate flow the the portion of autologous vein was somewhat smaller than the in situ vein. However felt that I had excluded the pseudoaneurysm excluded the area of stenosis in the proximal portion of the fistula. It is of note however that this procedure was very challenging and a portion of autologous vein used for the bypass ended up being smaller than anticipated. Sponge instrument and needle counts reported as correct blood loss was 200 cc entire procedure well hand was viable he was taken to the recovery intact condition stat portable chest x-ray is pending. Specimens none drains none blood loss 200 cc Pedro Owens M.D., F.A.C.S. Type of Anesthesia:: Local MAC Anesthesiologist: Rodger Hall
== END 2018-10-31 17:14 | disposition home or self-care (01) ==
LOC: SDC 08:17 → AC 08:18
PROVIDERS: Family Provider Family Medicine; PCP Family Medicine; Referring Provider Surgery; Visit Provider Surgery
PROC: (CPT 36556; principal; 2018-10-31 09:25)
PROC: (CPT 36556; 2018-10-31 09:25)
DX: T82.898D Other specified complication of vascular prosthetic devices, implants and grafts, subsequent encounter (principal); E03.9 Hypothyroidism, unspecified; E11.9 Type 2 diabetes mellitus without complications; E78.5 Hyperlipidemia, unspecified; I12.0 Hypertensive chronic kidney disease with stage 5 chronic kidney disease or end stage renal disease; N18.6 End stage renal disease; G47.30 Sleep apnea, unspecified
CPT/HCPCS: 36556; 36825; 36415; 71045; 76000; 80048; 82962; 85027; J7050; C1750

== ENCOUNTER 2018-11-02 14:06 | Emergency (ER) | payer BC, SELFPAY ==
[2018-10-31 08:38] VITALS: BMI 25.2
[2018-11-02 14:06] VITALS: BP 140/58; PULSE 74; RESP 16; TEMP 36.5; O2SAT 100; BMI 24.3
--- NOTE | 2018-11-02 14:27 | ED.DCSUM_ITS ---
- ER Visit Summary Date of Service: 11/02/18 Chief Complaint: Bleeding from dialysis catheter History of Present Illness: The patient is a 58 M who has bleeding from his Vas- Cath. He itched near this in his right upper chest and then he had some blood. He denies taking any blood thinning medications. He had a new fistula placed this week and had the Vas-Cath placed so he can have dialysis on Saturday and Saturday Physical Examination: Vital signs reviewed. Right upper chest reveals a Vas- Cath that is in place. There is some dried blood around it. When I remove the bandage there is some fresh blood on the lateral side. There is no active bleeding at this time. Test Results: None performed Emergency Department Course and Treatment: Patient had his dressing changed and there is no active bleeding at this time. Patient will follow up on Saturday for his dialysis. Treatment Plan: [] Disposition: Discharge Impression: Bleeding from dialysis catheter This note was generated with trip.me dictation software. It may contain incorrect words, spelling, and punctuation that were not noted in review of the chart prior to signing ED Disposition - Plan for ED Patient: Chief Complaint: Wound Check Referrals: Marques Caba MD [Primary Care Provider] -
--- NOTE | 2018-11-02 14:27 | ED.DEP ---
ED Disposition - Plan for ED Patient: Disposition: Home or Assisted Living Chief Complaint: Wound Check Instructions: ED Wound Check Post Op Bleeding Referrals: Marques Caba MD [Primary Care Provider] -
[2018-11-02 15:06] VITALS: BP 136/80; PULSE 88; RESP 16; O2SAT 98
== END 2018-11-02 15:12 | disposition home or self-care (01) ==
LOC: ED 15:06
PROVIDERS: Emergency Provider Emergency Medicine; Family Provider Family Medicine; PCP Family Medicine
DX: T82.838A Hemorrhage due to vascular prosthetic devices, implants and grafts, initial encounter (principal); N18.6 End stage renal disease; Z99.2 Dependence on renal dialysis; Z79.899 Other long term (current) drug therapy
CPT/HCPCS: 99282

== ENCOUNTER 2018-11-06 09:56 | Day surgery (SDC) | payer BC, SELFPAY ==
[2018-11-06] VITALS (7 sets, daily range): BP systolic 129–153; BP diastolic 65–89; PULSE 75–82; RESP 16; TEMP 36.4–36.8; O2SAT 76–100; BMI 25.7
[2018-11-06 13:16] LABS: Bedside Glucose 77 mg/dL (70-110)
[2018-11-06] MEDS: Bupivacaine Mpf 0.5% 30 ML VIAL (13:30)
[2018-11-06] MEDS: Heparin Injection (Vial) 5,000 UNIT/ML VIAL 5000 UNIT (13:30)
--- NOTE | 2018-11-06 13:41 | DCINST_ITS ---
Discharge Diet: Renal Diet Discharge Activity: May Not Drive - for 2-3 days or while taking narcotic pain medications., May Shower, May Take a Tub Bath - in 5 days. Lifting Restrictions: 5 pounds Keep extremity elevated above heart level: - - Keep arm elevated above the heart level for 3 days. Additional Activity Instructions:: Exercise hand vigorously with a stress ball. Call your doctor if your incision/area has: Continuous Slow Oozing, Sudden Increased Bleeding - apply pressure and call your doctor., Increased Pain/ Swelling, Increased Redness, Foul Smelling Discharge Call your doctor if you observe: Fever of 101 or Higher Suture Line Care: Avoid Pulling/Pushing, Avoid Pinching/Bending Cleanse incision/area with: Keep Dressing Clean & Dry Additional Dressing/Incision Instructions:: Change or remove dressing in one day. May protect with a gauze bandaid. Allergies/Adverse Reactions: Allergies epoetin beta [From Mircera] Adverse Reaction (Verified 11/05/18 10:24) back pain Medications to take at Discharge Levothyroxine [Synthroid] 150 mcg PO QHS 10/28/15 Simvastatin [Zocor] 20 mg PO QHS 10/28/15 Citalopram Hydrobromide [Citalopram HBr] 40 mg PO QHS 01/03/18 Ergocalciferol [Vitamin D] 50,000 unit PO WE 01/21/18 Amlodipine [Norvasc] 10 mg PO QHS 05/08/18 hydrALAZINE [Apresoline] 25 mg PO TID 05/08/18 Calcium Acetate 2 cap PO TIDCM 08/01/18 Yoko-Anna 0.8 mg PO QHS 08/01/18 Primary Care Physician: Marques Caba MD [Primary Care Provider] - Test Results: Test results from this visit will be discussed in further detail at your follow- up appointment, if applicable. Please Follow Up With: Pedro Owens MD - [phone] When: Call to make an appointment for suture removal and follow up in 1 week.
--- NOTE | 2018-11-06 13:44 | OP.PCM_ITS ---
Problem List (1) Problem with dialysis access Status: Acute Qualifiers: Encounter type: subsequent encounter Qualified Code(s): T82.898D - Other specified complication of vascular prosthetic devices, implants and grafts, subsequent encounter Report of Operation Date of Procedure: 11/06/18 Pre-Operative Diagnosis: Thrombosis left forearm radiocephalic arteriovenous fistula Post-Operative Diagnosis: Same Surgery/Procedure Performed:: Stage I left upper extremity antecubital brachial basilic arteriovenous fistula creation Description of Surgical Findings:: Timeout and informed consent was obtained. 58-year-old gent was taken down from placement table underwent general anesthesia the left extremity sterilely prepped draped 1% lidocaine mixed 50-50 with 0.5% Marcaine was used as a local anesthetic. A total of 7 cc was used. Local was instilled. An oblique incision was made the right antecubital space sharp and blunt dissection was used to identify the basilic vein small venotomy was secured with interrupted 7- 0 Prolene. Circulation control is seen in the brachial artery. The patient received 8000 units of heparin. After adequate stripping time the vein was ligated distally with a Hemoclip and then was spatulated 11 blade was used to make an arteriotomy was extended with Jacobs scissors a end-to-side anastomosis was created with a running 7-0 Prolene. At completion a single repair suture of 7-0 Prolene was required. It is of note that where the vein was anastomosed the media after that the basilic vein branches into 2 major branches. There was a good pulse thrill and bruit within the fistula. Surgicel was used to assist with hemostasis. The patient received 20 mg of protamine. The wound was closed with a deep layer of interrupted 3-0 Vicryl and then running septic or 4-0 Monocryl. Steri-Strips Telfa and OpSite dressings applied. The hand was viable with a 3+ radial pulse. No apparent complications. Specimens none. Drains none. Blood loss minimal. Successful creation left extremity stage I brachiobasilic AV fistula Pedro Owens M.D., F.A.C.S. Type of Anesthesia:: General Anesthesiologist: Candi Evangelista
--- OUTSIDE RECORDS SUMMARY | 2018-12-23 04:01 | XMS RPT_ITS ---
:1960 Author Organization [place] Support Name Relationship Address Phone LAND O LAKES Unavailable [address] + [place] [address] DEMETRA, SALLY Unavailable [address] + [place] [address] LAND O LAKES Unavailable [address] + [place] [address] DEMETRA, SALLY Unavailable [address] + [place] [address] LAND O LAKES Unavailable [address] + [place] [address] DEMETRA, SALLY Unavailable [address] + [place] [address] LAND O LAKES Unavailable [address] + [place] [address] DEMETRA, SALLY Unavailable [address] + [place] [address] LAND O LAKES Unavailable [address] + [place] [address] DEMETRA, SALLY Unavailable [address] + [place] [address] LAND O LAKES Unavailable [address] + [place] [address] DEMETRA, SALLY Unavailable [address] + [place] [address] LAND O LAKES Unavailable [address] + [place] [address] DEMETRA, SALLY Unavailable [address] + [place] [address] LAND O LAKES Unavailable [address] + [place] [address] DEMETRA, SALLY Unavailable [address] + [place] [address] LAND O LAKES Unavailable [address] + [place] [address] DEMETRA, SALLY Unavailable [address] + [place] [address] LAND O LAKES Unavailable [address] + [place] [address] DEMETRA, SALLY Unavailable [address] + [place] [address] LAND O LAKES Unavailable [address] + [place] [address] DEMETRA, SALLY Unavailable [address] + [place] [address] LAND O LAKES Unavailable [address] + [place] [address] DEMETRA, SALLY Unavailable [address] + [place] [address] LAND O LAKES Unavailable [address] + [place] [address] DEMETRA, SALLY Unavailable [address] + [place] [address] LAND O LAKES Unavailable [address] + [place] [address] DEMETRA, SALLY Unavailable [address] + [place] [address] LAND O LAKES Unavailable [address] + [place] [address] DEMETRA, SALLY Unavailable [address] + [place] [address] LAND O LAKES Unavailable [address] + [place] [address] DEMETRA, SALLY Unavailable [address] + [place] [address] LAND O LAKES Unavailable [address] + [place] [address] DEMETRA, SALLY Unavailable [address] + [place] [address] LAND O LAKES Unavailable [address] + [place] [address] DEMETRA, SALLY Unavailable [address] + [place] [address] LAND O LAKES Unavailable [address] + [place] [address] DEMETRA, SALLY Unavailable [address] + [place] [address] LAND O LAKES Unavailable [address] + [place] [address] DEMETRA, SALLY Unavailable [address] + [place] [address] LAND O LAKES Unavailable [address] + [place] [address] DEMETRA, SALLY Unavailable [address] + [place] [address] LAND O LAKES Unavailable [address] + [place] [address] DEMETRA, SALLY Unavailable [address] + [place] [address] LAND O LAKES Unavailable [address] + [place] [address] DEMETRA, SALLY Unavailable [address] + [place] [address] LAND O LAKES Unavailable [address] + [place] [address] DEMETRA, SALLY Unavailable [address] + [place] [address] LAND O LAKES Unavailable [address] + [place] [address] DEMETRA, SALLY Unavailable [address] + [place] [address] LAND O LAKES Unavailable [address] + [place] [address] DEMETRA, SALLY Unavailable [address] + [place] [address] LAND O LAKES Unavailable [address] + [place] [address] DEMETRA, SALLY Unavailable [address] + [place] [address] LAND O LAKES Unavailable [address] + [place] [address] DEMETRA, SALLY Unavailable [address] + [place] [address] LAND O LAKES Unavailable [address] + [place] [address] DEMETRA, SALLY Unavailable [address] + [place] [address] LAND O LAKES Unavailable [address] + [place] [address] DEMETRA, SALLY Unavailable [address] + [place] [address] LAND O LAKES Unavailable [address] + [place] [address] DEMETRA, SALLY Unavailable [address] + [place] [address] LAND O LAKES Unavailable [address] + [place] [address] DEMETRA, SALLY Unavailable [address] + [place] [address] LAND O LAKES Unavailable [address] + [place] [address] DEMETRA, SALLY Unavailable [address] + [place] [address] LAND O LAKES Unavailable [address] + [place] [address] DEMETRA, SALLY Unavailable [address] + [place] [address] LAND O LAKES Unavailable [address] + [place] [address] DEMETRA, SALLY Unavailable [address] + [place] [address] LAND O LAKES Unavailable [address] + [place] [address] DEMETRA, SALLY Unavailable [address] + [place] [address] LAND O LAKES Unavailable [address] + [place] [address] DEMETRA, SALLY Unavailable [address] + [place] [address] LAND O LAKES Unavailable [address] + [place] [address] DEMETRA, SALLY Unavailable [address] + [place] [address] LAND O LAKES Unavailable [address] + [place] [address] DEMETRA, SALLY Unavailable [address] + [place] [address] LAND O LAKES Unavailable [address] + [place] [address] DEMETRA, SALLY Unavailable [address] + [place] [address] LAND O LAKES Unavailable [address] + [place] [address] DEMETRA, SALLY Unavailable [address] + [place] [address] LAND O LAKES Unavailable [address] + [place] [address] DEMETRA, SALLY Unavailable [address] + [place] [address] LAND O LAKES Unavailable [address] + [place] [address] DEMETRA, SALLY Unavailable [address] + [place] [address] LAND O LAKES Unavailable [address] + [place] [address] DEMETRA, SALLY Unavailable [address] + [place] [address] LAND O LAKES Unavailable [address] + [place] [address] DEMETRA, SALLY Unavailable [address] + [place] [address] LAND O LAKES Unavailable [address] + [place] [address] DEMETRA, SALLY Unavailable [address] + [place] [address] LAND O LAKES Unavailable [address] + [place] [address] DEMETRA, SALLY Unavailable [address] + [place] [address] LAND O LAKES Unavailable [address] + [place] [address] DEMETRA, SALLY Unavailable [address] + [place] [address] LAND O LAKES Unavailable [address] + [place] [address] DEMETRA, SALLY Unavailable [address] + [place] [address] LAND O LAKES Unavailable [address] + [place] [address] DEMETRA, SALLY Unavailable [address] + [place] [address] LAND O LAKES Unavailable [address] + [place] [address] DEMETRA, SALLY Unavailable [address] + [place] [address] LAND O LAKES Unavailable [address] + [place] [address] DEMETRA, SALLY Unavailable [address] + [place] [address] LAND O LAKES Unavailable [address] + [place] [address] DEMETRA, SALLY Unavailable [address] + [place] [address] LAND O LAKES Unavailable [address] + [place] [address] DEMETRA, SALLY Unavailable [address] + [place] [address] LAND O LAKES Unavailable [address] + [place] [address] DEMETRA, SALLY Unavailable [address] + [place] [address] LAND O LAKES Unavailable [address] + [place] [address] DEMETRA, SALLY Unavailable [address] + [place] [address] LAND O LAKES Unavailable [address] + [place] [address] DEMETRA, SALLY Unavailable [address] + [place] [address] LAND O LAKES Unavailable [address] + [place] [address] DEMETRA, SALLY Unavailable [address] + [place] [address] LAND O LAKES Unavailable [address] + [place] [address] SALLY MCCRARY Unavailable [address] + [place] [address] Care Team Providers Name Role Phone Abran Reveles Primary Care Unavailable Tereletsky, Sae Admitting Unavailable Reddy, Vannessa Consulting Unavailable Liam Crisostomo Attending Unavailable Tereletsglynn, Sae Admitting Unavailable Reveles, Abran Primary Care Unavailable Tereletsky, Sae Consulting Unavailable Tereletsky, Sae Attending Unavailable Tereletsky, Sae Admitting Unavailable Lance Hernandez Attending Unavailable Reveles, Abran Primary Care Unavailable Reddy, Vannessa Consulting Unavailable Tereletsky, Sae Consulting Unavailable Tereletsky, Sae Admitting Unavailable Lance Hernandez Attending Unavailable Reveles, Abran Primary Care Unavailable Reddy, Vannessa Consulting Unavailable Tereletsky, Sae Consulting Unavailable Tereletsky, Sae Admitting Unavailable Reveles, Abran Primary Care Unavailable Reddy, Vannessa Consulting Unavailable Liam Crisostomo Attending Unavailable Liam Crisosotmo Consulting Unavailable SarahppLiam hedrick Attending Unavailable Tereletsky, Sae Admitting Unavailable Reveles, Abran Primary Care Unavailable Reddy, Vannessa Consulting Unavailable Liam Crisostomo Consulting Unavailable Vannessa Blakely Attending Unavailable Reddy, Vannessa Referring Unavailable Reveles, Abran Primary Care Unavailable Reddy, Vannessa Attending Unavailable Reddy, Vannessa Referring Unavailable Reveles, Abran Primary Care Unavailable Gimenez PA-CTamera Attending Unavailable Reveles, Abran Referring Unavailable Gimenez PA-C Tamera Attending Unavailable Reveles, Abran Referring Unavailable Reveles, Abran Primary Care Unavailable CebulPedro Attending Unavailable Cebul, Pedro Referring Unavailable Reveles, Abran Primary Care Unavailable Reddy, Vannessa Attending Unavailable Reddy, Vannessa Referring Unavailable Reveles, Abran Primary Care Unavailable Reddy, Vannessa Attending Unavailable Reddy, Vannessa Referring Unavailable Reveles, Abran Primary Care Unavailable Reddy, Vannessa Attending Unavailable Reddy, Vannessa Referring Unavailable Reveles, Abran Primary Care Unavailable Reveles, Abran Primary Care Unavailable Braydon Sutton Attending Unavailable DorabulPedro Attending Unavailable Vannessa Blakely Attending Unavailable Reddy, Vannessa Referring Unavailable Reveles, Abran Primary Care Unavailable Cebul, Pedro Attending Unavailable Reveles, Abran Referring Unavailable Reveles, Abran Primary Care Unavailable Cebul, Pedro Attending Unavailable Cebul, Pedro Attending Unavailable Cebul, Pedro Referring Unavailable Reveles, Abran Primary Care Unavailable Cebul, Pedro Attending Unavailable Cebul, Pedro Referring Unavailable Reveles, Abran Primary Care Unavailable Cebul, Pedro Consulting Unavailable Gimenez PA-C, Tamera Attending Unavailable Reveles, Abran Referring Unavailable Reveles, Abran Primary Care Unavailable Cebul, Pedro Attending Unavailable Reveles, Abran Primary Care Unavailable Cebul, Pedro Referring Unavailable Cebul, Pedro Attending Unavailable Reveles, Abran Referring Unavailable Cebul, Pedro Attending Unavailable Cebul, Pedro Referring Unavailable Reveles, Abran Primary Care Unavailable Reveles, Abran Primary Care Unavailable Ashelfah, Ghasem Admitting Unavailable Ashelfah, Ghasem Referring Unavailable Vannessa Blakely Consulting Unavailable Sae Sharp Attending Unavailable Cebul, Pedro Attending Unavailable Cebul, Pedro Referring Unavailable Cebul, Pedro Attending Unavailable Ashelfah, Ghasem Admitting Unavailable Mary, Lance Attending Unavailable Ashelfah, Ghasem Referring Unavailable Reveles, Abran Primary Care Unavailable Ashelfah, Ghasem Consulting Unavailable Ashelfah, Ghasem Admitting Unavailable Mary, Lance Attending Unavailable Ashelfah, Ghasem Referring Unavailable Reveles, Abran Primary Care Unavailable Reddy, Vannessa Consulting Unavailable aSe Sharp Consulting Unavailable Reveles, Abran Primary Care Unavailable Adwoa Corado Attending Unavailable Vannessa Blakely Attending Unavailable Reveles, Abran Primary Care Unavailable Tamera Gimenez PA-C Attending Unavailable Reveles, Abran Referring Unavailable Reveles, Abran Primary Care Unavailable Cebul, Pedor Attending Unavailable Cebul, Pedro Referring Unavailable Reveles, Abran Primary Care Unavailable Cebul, Pedro Attending Unavailable Cebul, Pedro Referring Unavailable Reveles, Abran Primary Care Unavailable Cebul, Pedro Consulting Unavailable Reveles, Abran Primary Care Unavailable Duglas Singh Attending Unavailable Pernell PA-C, Tamera Attending Unavailable Reveles, Abran Referring Unavailable Cebul, Pedro Attending Unavailable Reveles, Abran Referring Unavailable Reveles, Abran Primary Care Unavailable Cebul, Pedro Attending Unavailable Reveles, Abran Primary Care Unavailable Cebul, Pedro Attending Unavailable Cebul, Pedro Referring Unavailable Reveles, Abran Primary Care Unavailable Cebul, Pedro Attending Unavailable Cebul, Pedro Referring Unavailable Reveles, Abran Primary Care Unavailable Cebul, Pedro Attending Unavailable Reveles, Abran Primary Care Unavailable Cebul, Pedro Referring Unavailable Reveles, Abran Primary Care Unavailable Jakub Martinez Admitting Unavailable Robotham, Amanda Consulting Unavailable Liam Crisostomo Attending Unavailable Reddy, Vannessa Consulting Unavailable Jakub Martinez Admitting Unavailable Robotham, Amanda Attending Unavailable Reveles, Abran Primary Care Unavailable Robotham, Amanda Consulting Unavailable Reddy, Vannessa Consulting Unavailable Kotsonis, Jakub F Consulting Unavailable Kotsonis, Jakub F Admitting Unavailable Reveles, Abran Primary Care Unavailable Robotham, Amanda Consulting Unavailable Kotsonis, Jakub F Attending Unavailable Reddy, Vannessa Consulting Unavailable Kotsonis, Jakub F Consulting Unavailable Kotsonis, Jakub F Admitting Unavailable Reveles, Abran Primary Care Unavailable Robotham, Amanda Consulting Unavailable Liam Crisostomo Attending Unavailable Reddy, Vannessa Consulting Unavailable Laim Crisostomo Consulting Unavailable Reveles, Abran Primary Care Unavailable Chauncey Rivera Attending Unavailable Cebul, Pedro Attending Unavailable Reveles, Abran Referring Unavailable Cebul, Pedro Attending Unavailable Cebul, Pedro Referring Unavailable Reveles, Abran Primary Care Unavailable Santo Clark Attending Unavailable Liam Crisostomo Referring Unavailable Cebul, Pedro Attending Unavailable Reveles, Abran Primary Care Unavailable Cebul, Pedro Referring Unavailable Cebul, Pedro Attending Unavailable Cebul, Pedro Referring Unavailable Reveles, Abran Primary Care Unavailable Cebul, Pedro Consulting Unavailable Cebul, Pedro Attending Unavailable Reveles, Abran Referring Unavailable Reddy, Vannessa Attending Unavailable Reddy, Vannessa Referring Unavailable Reveles, Abran Primary Care Unavailable Cebul, Pedro Attending Unavailable Reveles, Abran Referring Unavailable Cebul, Pedro Attending Unavailable Reveles, Abran Referring Unavailable Cebul, Pedro Attending Unavailable Cebul, Pedro Referring Unavailable Reveles, Abran Primary Care Unavailable Reveles, Abran Primary Care Unavailable Jonathan Gordon Attending Unavailable Cebul, Pedro Attending Unavailable Reveles, Abran Referring Unavailable GABRIELA HENSLEY Attending Unavailable REVELES, ABRAN K Referring Unavailable GABRIELA HENSLEY Referring Unavailable REDDY, VANNESSA Referring Unavailable KAREN PEREIRA (JESSICA) Attending Unavailable REDDY, VANNESSA Referring Unavailable REDDY, VANNESSA Referring Unavailable REDDY, VANNESSA Referring Unavailable REDDY, VANNESSA Referring Unavailable REDDY, VANNESSA Referring Unavailable REDDY, VANNESSA Referring Unavailable REDDY, VANNESSA Referring Unavailable REDDY, VANNESSA Referring Unavailable REDDY, VANNESSA Referring Unavailable REDDY, VANNESSA Referring Unavailable LORENA MARROQUIN Attending Unavailable ANJEL OLSON Referring Unavailable TETYUK, ILENE Admitting Unavailable TANPHAICHILUIS WILLIAMSONTHAVAT M Consulting Unavailable HILLARY SANDHU Attending Unavailable ANJEL OLSON Referring Unavailable TETYUK, ILENE Admitting Unavailable Reveles, Abran Primary Care Unavailable MARV WATKINS Consulting Unavailable HILLARY SANDHU Attending Unavailable TANPHAPOPPY QUINONES Consulting Unavailable PROBLEMS PROBLEMS DATE TYPE CONDITION / CODE ATTENDING STATUS SOURCE 11/26/2018 Active Major depressive LORENA MARROQUIN Active [facility] disorder, recurrent, [facility] mild / F33.0(ICD-10) [facility] 11/26/2018 Active Insomnia, LORENA MARROQUIN Active [facility] unspecified / [facility] Main G47.00(ICD-10) [facility] Rep[facility] 12/09/2018 Unknown T82.598A - Other Pedro Walker mechanical Community complication of Hospital other cardiac and Repository vascular devices and implants, initial encounter / T82.598A(ICD-10) 12/09/2018 Unknown T82.898A - Other Pedro Walker specified Community complication of Hospital vascular prosthetic Repository devices, implants and grafts, initial encounter / T82.898A(ICD-10) 10/29/2018 Unknown T82.898D - Other Pedro Walker specified Community complication of Hospital vascular prosthetic Repository devices, implants and grafts, subsequent encounter / T82.898D(ICD-10) 09/08/2018 Active Unspecified kidney NA Active [facility] failure / Clinic Main N19(ICD-10) [facility] 09/08/2018 Active Encounter for NA Active [place] screening for Clinic Main infections with a [facility] predominantly sexual Repository mode of transmission / Z11.3(ICD-10) 09/08/2018 Active Encounter for NA Active [place] screening for Clinic Main malignant neoplasm [facility] of prostate / Repository Z12.5(ICD-10) 09/08/2018 Active Essential (primary) NA Active [facility] hypertension / Clinic Main I10(ICD-10) [facility] 09/08/2018 Active Type 2 diabetes NA Active [facility] mellitus with Clinic Main diabetic nephropathy [facility] / E11.21(ICD-10) Repository 09/08/2018 Active Dependence on renal NA Active [facility] dialysis / Clinic Main Z99.2(ICD-10) [facility] 09/08/2018 Active Type 2 diabetes NA Active [facility] mellitus with Clinic Main diabetic chronic [facility] kidney disease / Repository E11.22(ICD-10) 09/08/2018 Active Encounter for other NA Active [place] preprocedural Clinic Main examination / [facility] Z01.818(ICD-10) Repository 08/06/2018 Active Other fecal NA Active [facility] abnormalities / Clinic Main R19.5(ICD-10) [facility] 08/06/2018 Active End stage renal NA Active [place] disease / Clinic Main N18.6(ICD-10) [facility] 08/06/2018 Active Acute NA Active [place] posthemorrhagic [facility] Main anemia / D62(ICD-10) [facility] Rep[facility] 09/03/2018 Active Anemia in chronic NA Active [place] kidney disease / Clinic Main D63.1(ICD-10) [facility] 08/28/2018 Unknown Z01.818 - Encounter CebuPedro nelson Active [place] for other [facility] preprocedural Hospital examination / Repository Z01.818(ICD-10) 08/06/2018 Active Iron deficiency PHOEBE, 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[facility] Other blood loss (chronic) [facility] / D50.0(ICD-10) Repository 08/06/2018 Admitting Unknown / PHOEBE, Active [facility] diagnosis UNK(Unknown) [facility] Repository 07/04/2018 Unknown R93.3 - Abnormal CebulPedro Active [place] findings on [facility] diagnostic imaging Hospital of other parts of Repository digestive tract / R93.3(ICD-10) 07/04/2018 Unknown K56.609 - Cebul, Pedro Active [place] Unspecified [facility] intestinal Hospital obstruction, Repository unspecified as to partial versus complete obstruction / K56.609(ICD-10) 05/15/2018 Unknown G89.18 - Other acute Cebul, Pedro Active [place] postprocedural pain [facility] / G89.18(ICD-10) Hospital Repository 04/23/2018 Unknown N18.5 - Chronic Cebul, Pedro Active [place] kidney disease, [facility] stage 5 / Hospital N18.5(ICD-10) Repository 04/24/2018 Unknown N18.4 - Chronic Cebul, Pedro Active [place] kidney disease, [facility] stage 4 (severe) / Hospital N18.4(ICD-10) Repository 04/11/2018 Unknown N17.9 - Acute kidney Vannessa Blakely Active [place] failure, unspecified Community / N17.9(ICD-10) Hospital Repository 01/13/2018 Unknown D64.89 - Other Vannessa Blakely Active [place] specified anemias / Community D64.89(ICD-10) Hospital Repository PROCEDURES PROCEDURES No Procedure Records FoundRESULTS RESULTS 12 LEAD ELECTROCARDIOGRAM Observed: 12/11/2018 Status: F Source: [place] 4:10 PM [facility] REPOSITORY [facility] Cardiovascular Services [address] [place] [address] 12 Lead EKG 12/10/18 0526 MR#: [id number] Acct: [id number] Name: ROBERT MCCRARY Rep #: [id number] : 1960 58 From: Deven Hess MD Attending Dr: Sae Sharp DO Status: DIS IN Ordering Dr: Nancie Wilkes MD Date: 12/10/18 Location: [facility] Sex: M C Admitted: 12/09/18 Test Reason : AM EKG Blood Pressure : / mmHG Vent. Rate : 075 BPM Atrial Rate : 075 BPM P-R Int : 130 ms QRS Dur : 080 ms QT Int : 466 ms P-R-T Axes : 036 015 050 degrees QTc Int : 520 ms Normal sinus rhythm Prolonged QT Abnormal ECG Confirmed by ANABELL COLON, DEVEN ([id number]), editor at large HARPAL REVELES ([id number]) on 12/11/2018 4:10:26 PM Referred By: Nancie Wilkes Confirmed By:DEVEN HESS MD 12/11/18 1610 Date Deven Hess MD CC: Nancie Wilkes; Abran Reveles MD; Sae Sharp DO Signed 12 LEAD ELECTROCARDIOGRAM Observed: 12/11/2018 Status: F Source: [place] 3:54 PM [facility] REPOSITORY [facility] Cardiovascular Services [address] [place] [address] 12 Lead EKG 12/09/18 1102 MR#: [id number] Acct: [id number] Name: ROBERT MCCRARY Rep #: [id number] : 1960 58 From: Deven Hess MD Attending Dr: Sae Sharp DO Status: DIS IN Ordering Dr: Santo Farr MD Date: 12/09/18 Location: [facility] Sex: M C Admitted: 12/09/18 Test Reason : CHEST PAIN Blood Pressure : / mmHG Vent. Rate : 076 BPM Atrial Rate : 076 BPM P-R Int : 142 ms QRS Dur : 078 ms QT Int : 446 ms P-R-T Axes : 070 026 059 degrees QTc Int : 501 ms Normal sinus rhythm Prolonged QT Abnormal ECG Confirmed by ANABELL COLON, DEVEN ([id number]), editor at large HARPAL REVELES ([id number]) on 12/11/2018 3:54:20 PM Referred By: Nancie Wilkes Confirmed By:DEVEN HESS MD 12/11/18 1554 Date Deven Hess MD CC: Santo Farr MD; Nancie Wilkes; Abran Reveles MD; Sae Sharp DO Signed DISCHARGE SUMMARY Observed: 12/10/2018 Status: F Source: [place] 9:35 PM [facility] Medical Records Department [address] [place] [address] Discharge Summary 12/10/18 1424 MR#: [id number] Acct: [id number] Name: ROBERT MCCRARY Rep #: [id number] : 1960 58 From: Lance [place] PCP: Abran Reveles MD Status: DIS IN Y Location: [place] [address] ADDENDUM by Sae Sharp DO on 12/10/18 at 2135 Code Visit Patient was seen and examined today independently of Lance Hernandez, his pulse ox is 99% on room air, patient does not appear to have any respiratory distress. On examination, patient's lungs were clear bilaterally. Physical exam: On examination he appeared in good health and spirits. Vital signs as documented. Skin warm and dry and without overt rashes. Neck without JVD. Lungs clear. Heart exam notable for regular rhythm, normal sounds and absence of murmurs, rubs or gallops. Abdomen unremarkable and without evidence of organomegaly, masses, or abdominal aortic enlargement. Extremities nonedematous. Neuro: Cranial nerves II through XII are grossly intact, no focal motor deficits were noted, sensation to light touch and pinprick intact. Psych: Patient is alert and oriented x3, he does not appear anxious or depressed Patient was felt to be stable for discharge home on 12/10/18, I have reviewed Lance Hernandez's discharge summary including his assessment and medical plan of care and endorse it. Inpatient E AND M: [id number] Disch Hosp 12/10/182134 <Electronically signed by Sae Sharp DO> Date Sae Sharp DO cc: PADMINI Hernandez; Abran Reveles MD; Sae Sharp DO * Signed Discharge Date and Diagnosis Date of Admission: 12/09/18 Date of Discharge: 12/10/18 - Primary Discharge Diagnosis Acute community-acquired pneumonia, presumed streptococcal End-stage renal disease AV fistula complication History of diastolic CHF Obstructive sleep apnea History of GI bleeding Type 2 diabetes mellitus, diet-controlled Hyperlipidemia Hypothyroidism - Secondary Discharge Diagnosis Chronic Problems (Last Updated 12/09/18 @ 16:06 by Nancie Wilkes MD) End stage renal disease on dialysis (Chronic) Anemia (Chronic) ESRD (end stage renal disease) (Chronic) Problem with dialysis access (Chronic) DAVID (obstructive sleep apnea) (Chronic) Lymphadenopathy (Chronic) Hyperlipidemia (Chronic) Hypothyroidism (Chronic) Hypertension (Chronic) Type II diabetes mellitus (Chronic) Hospital Course and Treatment Imaging Results: RAD/Chest 1 View (Portable) IMPRESSION: No acute cardiopulmonary disease. CT/CTA Chest W/WO Contrast IMPRESSION: Diffuse groundglass appearance in both upper lobes as well as in the lower lobes slightly worse on the left side. This may represent pneumonic infiltrates. Consultations: Nephrology -[place] Operations: None Procedures: None Summary of Care Provided: Hospital course: The patient is a 58 year old M with past medical history as above who presented to the hospital with productive cough, left-sided chest pain, chills, body aches, progressively worsening for several days. He was sent from dialysis after completing a full round. He was found to have a negative troponin, negative EKG, symptoms consistent with pleurisy. Chest x-ray was unremarkable however a follow-up CTA of the chest demonstrated pneumonia, and he had an elevated white blood cell count. He was comfortable at rest without oxygen and was not hypoxic. He was admitted to the PCU and placed on Vanco and Zosyn, mucinex, pep therapy, IS. His symptoms had improved significantly the following day and he remained off oxygen and comfortable, was able to ambulate without oxygen. He was transitioned to Levaquin and will need to complete 4 more doses for a total of 10 days of therapy. He was discharged in stable condition to home. He will need to follow-up with dialysis and Dr. Blakely as previously directed, he will need follow-up with his PCP in 1-2 weeks. He was supposed to have his AV fistula repaired by Dr. Walker on Saturday, however due to this admission and acute illness this was canceled. He will need to contact Dr. Walker and reschedule the surgery as soon as possible. This patient was seen by Lance Hernandez PA-C under the supervision of Doctor Lazaro. [] - Physical Exam General: Alert, Oriented x3, Cooperative HEENT: Atraumatic, PERRLA, EOMI, Normocephalic Neck: Supple, No JVD, Negative Carotid Bruits Lungs: Clear to auscultation, Normal air movement Cardiovascular: Regular rate, No murmurs Abdomen: Bowel Sounds Present, Soft, Non Tender Extremities: No edema, Capillary Refill Less than 3 Seconds Skin: No rashes, No breakdown Musculoskeletal: No Tenderness to Palpation of Joints or Extremities Neurological: Cranial nerves II-XII grossly intact Psych/Mental Status: Normal Affect, Appropriate Vital Signs Temp Pulse Resp BP Pulse Ox 98.3 F 73 16 133/79 H 99 12/10/18 09:00 12/10/18 09:00 12/10/18 09:00 12/10/18 09:00 12/10/18 09:00 Oxygen Delivery Method Room Air Weight: 176 lb 12.972 oz Body Mass Index (BMI) 25.3 Intake and Output for Last 24 Hours Intake Total 240 / 240 1850 / 1850 Output Total 400 / 400 Balance 240 / 240 1450 / 1450 Microbiology Past 72 Hours 12/09/18 17:50 Streptococcus pneumoniae Antigen (M - Final Urine, Clean Catch 12/09/18 18:57 Legionella Antigen - Final Urine, Clean Catch Laboratory Tests Past 24 Hrs WBC 10.2 RBC 3.27 L Hgb 8.7 L Hct 29.7 L WBC RBC Hgb Hct MCV MCH MCHC RDW RDW Differential Plt Count MPV Immature Gran % (Auto) Neut % (Auto) Lymph % (Auto) Elmore % (Auto) Discharge Diet: Low fat/ Low Cholesterol, 1800 Calorie Control Diet, 2000 mg Sodium Diet, Renal Diet Discharge Activity: Return to Normal Activity Home Medications: Medications to take at Discharge Levothyroxine [Synthroid] 150 mcg PO QHS 10/28/15 Simvastatin [Zocor] 20 mg PO QHS 10/28/15 Citalopram Hydrobromide [Citalopram HBr] 40 mg PO QHS 01/03/18 Ergocalciferol [Vitamin D] 50,000 unit PO QMONTH 01/21/18 Amlodipine [Norvasc] 10 mg PO QHS 05/08/18 hydrALAZINE [Apresoline] 25 mg PO TID 05/08/18 Calcium Acetate 2 cap PO TIDCM 08/01/18 Yoko-Anna 0.8 mg PO QHS 08/01/18 levoFLOXacin tablet [Levaquin tablet] 500 mg PO Q48H #4 tablet 12/10/18 Following Prescrptions Were Given to Patient: levoFLOXacin tablet [Levaquin tablet] 500 mg PO Q48H #4 tablet Primary Care Physician: Abran Reveles MD [Primary Care Provider] - Please follow up with your Primary Care Physician in: 1-2 weeks Please Follow Up With: Pedro Walker MD When: Call for appointment Please Follow Up With: Vannessa Blakely DO When: Resume Dialysis Please Follow Up With: Abran Reveles MD Disposition: Home Minutes spent on discharge:: 35 Patient Condition:: Stable Medical Necessity - Tobacco Use Smoking Status: Never smoker Tobacco Use: Chew Meaningful Use Info Meaningful Use Diagnoses (Choose all that apply): None applicable 12/10/18 1430 <Electronically signed by Lance WASHINGTON> Date Lance WASHINGTON 12/10/18 1642<Electronically signed by Sae Tereletsky DO> Cosigner Signature (if applicable): Date Sae Sharp DO CC: PADMINI Hernandez; Abran Reveles MD; Sae Sharp DO Signed CONSULTATION Observed: 12/10/2018 Status: F Source: [place] 2:02 PM [facility] [place] [facility] Medical Records Department [address] [place] [address] Consultation 12/10/18 0840 MR#: [id number] Acct: [id number] Name: ROBERT MCCRARY Rep #: [id number] : 1960 58 From: Vannessa Blakely DO PCP: Abran Reveles MD Status: ADM [id number] Consultation - Renal 12/10/18 PCP/ Referring MD: Requesting physician: Dr Wilkes Primary care physician: Abran Reveles MD Reason for Consultation:: ESRD HD TTS, renal mgmt - History of Present Illness History of Present Illness: The patient is a 58 year old M with 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 He is on iv vanco and zosyn for pneumonia. He received full treatment yesterday prior to ER visit. He has a history of diastolic CHF, GI bleed without clear etiology, chronic abdominal pain and adenopathy, HTN, hypothyroid, GERD, DMT2, DAVID. CT Chest was negative for PE but showed ground glass infiltrates. He is not hypoxic. He has generalized malaise, weakness. - Allergies Allergies: Allergies epoetin beta [From Mircera] Adverse Reaction (Verified 12/09/18 10:59) back pain - Current Medications Current Medications: Current Medications Acetaminophen (Tylenol) 650 mg PO Q4H PRN PRN PRN Reason: FEVER Albuterol Sulfate (Ventolin Aerosols) 2.5 mg INHALATION Q4H PRN PRN PRN Reason: Shortness of breath, wheezing Amlodipine Besylate (Norvasc) 10 mg PO QHS ROCKY Last Admin: 12/09/18 21:32 Dose: 10 mg Atorvastatin Calcium (Lipitor) 10 mg PO QHS ROCKY Last Admin: 12/09/18 21:32 Dose: 10 mg Calcium Acetate (Phoslo Gel Cap) 1,334 mg PO TIDCM [facility] Last Admin: 12/09/18 17:31 Dose: 1,334 mg Citalopram Hydrobromide (Celexa) 40 mg PO QHS [facility] Last Admin: 12/09/18 21:32 Dose: 40 mg Guaifenesin (Mucinex) 1,200 mg PO BID [facility] Last Admin: 12/09/18 21:32 Dose: 1,200 mg Hydralazine HCl (Apresoline) 25 mg PO TID [facility] Last Admin: 12/10/18 06:28 Dose: 25 mg Piperacillin Sod/Tazobactam Sod (Zosyn) 3.375 gm in 50 mls @ 12.5 mls/hr IV Q12 [facility] Last Admin: 12/09/18 21:29 Dose: 12.5 mls/hr Vancomycin IV Pharmacy to Dose (1 ea/ Sodium Chloride) 500 mls @ 250 mls/hr IV PRN PRN; Protocol PRN Reason: Rx to Dose Vancomycin HCl () 500 mg in 100 mls @ 100 mls/hr IV X1 ONE Stop: 12/11/18 18:59 [facility]ine S[facility]roid) [facility] Last Admin: 12/09/18 21:42 Dose: 150 mcg Magnesium Hydroxide (Milk Of Magnesia) 30 ml PO DAILY PRN PRN Reason: Constipation Morphine Sulfate () 1 mg IV Q4H PRN PRN PRN Reason: SEVERE PAIN (6-10/10) Multivit/Ca Carb/B Cmplx/FA/Prenat (Nephrocaps, Renaphro) 1 capsule PO QHS [facility] Last Admin: 12/09/18 21:32 Dose: 1 capsule Ondansetron HCl (Zofran) 4 mg IV Q8H PRN PRN PRN Reason: NAUSEA Sodium Chloride () 5 - 15 ml IV UD PRN PRN Reason: SALINE FLUSH Vancomycin HCl () 1 lab MISCELL. TuThSa@0600 [facility] Vancomycin HCl (Vancomycin Renal/Hd Dosing) 1 unit MISCELL. TuThSa@0800 [facility] - Past Medical History Past Medical History (Chronic Problems): Chronic Problems (Last Updated 12/09/18 @ 16:06 by Nancie Wilkes MD) End stage renal disease on dialysis (Chronic) Anemia (Chronic) ESRD (end stage renal disease) (Chronic) Problem with dialysis access (Chronic) DAVID (obstructive sleep apnea) (Chronic) Lymphadenopathy (Chronic) Hyperlipidemia (Chronic) Hypothyroidism (Chronic) Hypertension (Chronic) Type II diabetes mellitus (Chronic) - Past Surgical History Surgical History: - - AV fistula with revision - Social History Marital Status: Smoking Status: Never smoker Alcohol: None Drugs: None - Family History Maternal Family History: Family History (Last Reviewed 11/28/18 @ 13:01 by Amanda Adrian) Father No problems noted. History Items: Diabetes Paternal Family History: Family History (Last Reviewed 11/28/18 @ 13:01 by Amanda Adrian) Father No problems noted. History Items: Stroke Review of Systems Constitutional: Reports: Chills, Fever, Malaise, Weakness, Fatigue. Denies: Anorexia Eyes: Denies: Vision Change HEENT: Denies: Head Aches Cardiovascular: Reports: Chest Pain - pleuritic. Denies: Edema Respiratory: Reports: Cough, Shortness of breath upon exertion, Sputum production - clear. Denies: Hemoptysis, Wheezing Gastrointestinal: Denies: Abdominal Pain, Nausea, Vomiting Genitourinary: Denies: Dysuria Musculoskeletal: Reports: - - no swelling Skin: Denies: Rash Psychiatric: Denies: Anxiety, Depression Hematologic/ Lymphatic: Reports: Anemia. Denies: Hx of blood clot Patient Problems: Active and Suspected Problems (Last Updated 12/09/18 @ 16:06 by Nancie Wilkes MD) Healthcare-associated pneumonia (Acute) - Physical Exam General: Alert, Oriented x3, Cooperative, No apparent distress HEENT: PERRLA, EOMI Oral: Dry Mucosa Neck: Supple Lungs: Clear to auscultation Cardiovascular: Regular rate Abdomen: Bowel Sounds Present, Soft, Non Tender, Non-Distended Extremities: No edema, - - AVF left forearm Skin: No rashes Psych/Mental Status: Normal Affect, Appropriate, Alert and oriented to time, place, person, mood and affect Vital Signs Temp Pulse Resp BP Pulse Ox 97.8 F 78 18 140/64 H 94 12/10/18 03:01 12/10/18 06:28 12/10/18 03:01 12/10/18 06:28 12/10/18 08:03 Oxygen Delivery Method Room Air Weight: 80.2 kg Body Mass Index (BMI) 25.3 Intake and Output for Last 24 Hours Intake Total 240 / 240 1410 / 1410 Output Total 400 / 400 Balance 240 / 240 1010 / 1010 Microbiology Past 72 Hours 12/09/18 17:50 Streptococcus pneumoniae Antigen (M - Final Urine, Clean Catch 12/09/18 18:57 Legionella Antigen - Final Urine, Clean Catch Laboratory Tests Past 24 Hrs WBC 12.6 H RBC 3.77 L WBC RBC Hgb Hct MCV MCH MCHC RDW RDW Differential WBC 10.2 RBC 3.27 L Hgb 8.7 L Hct 29.7 L MCV 90.8 MCH 26.6 L MCHC 29.3 L RDW 15.6 H Clinical Impression(s) from Imaging Studies Chest X-Ray 12/09/18 11:16 IMPRESSION: No acute cardiopulmonary disease. Electronically Signed: Pancho Reyes MD at 12:22 EST , Service support , Chest CTA 12/09/18 13:13 IMPRESSION: Diffuse groundglass appearance in both upper lobes as well as in the lower lobes slightly worse on the left side. This may represent pneumonic infiltrates. Electronically Signed: Godwin Palmer MD at 14:40 EST Tel [phone], Service support , Assessment/Plan All Active Problems (Last Updated 12/09/18 @ 16:06 by Nancie Wilkes MD) Healthcare-associated pneumonia (Acute) 1. ESRD HD TTS 2. pleuritic chest pain likely from pneumonia. PE negative 3. HTN stable 4. DM2 stable 5. PNA antibx per primary service 6. 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, [address] DISCHARGE INSTRUCTION Observed: 12/10/2018 Status: F Source: [place] 12:23 PM [facility] [place] [facility] Medical Records Department [address] [place] [address] Instructions for Home/Discharge Instructions 12/10/18 1217 MR#: [id number] Acct: [id number] Name: ROBERT MCCRARY Rep #: [id number] : 1960 58 From: Lance WASHINGTON PCP: Abran Reveles MD Status: ADM IN - Discharge Diagnoses Current Active Problems: Current Active and Chronic Problems (Last Updated 12/09/18 @ 16:06 by Nancie Wilkes MD) Healthcare-associated pneumonia (Acute) End stage renal disease on dialysis (Chronic) DAVID (obstructive sleep apnea) (Chronic) You will use the following diet at home:: Calorie/Carbohydrate Controlled (specify 1200, 1400, etc) - 1800 linda / day, Cardiac - <2 g sodium daily, Renal (restricted protein/sodium) Your food should be the consistency of: Regular Your liquids should be the consistency of: Regular/Thin Discharge Activity: Return to Normal Activity Allergies/Adverse Reactions: Allergies epoetin beta [From Mircera] Adverse Reaction (Verified 12/09/18 10:59) back pain Medications to take at Discharge Levothyroxine [Synthroid] 150 mcg PO QHS 10/28/15 Simvastatin [Zocor] 20 mg PO QHS 10/28/15 Citalopram Hydrobromide [Citalopram HBr] 40 mg PO QHS 01/03/18 Ergocalciferol [Vitamin D] 50,000 unit PO QMONTH 01/21/18 Amlodipine [Norvasc] 10 mg PO QHS 05/08/18 hydrALAZINE [Apresoline] 25 mg PO TID 05/08/18 Calcium Acetate 2 cap PO TIDCM 08/01/18 Yoko-Anna 0.8 mg PO QHS 08/01/18 levoFLOXacin tablet [Levaquin tablet] 500 mg PO Q48H #4 tablet 12/10/18 The following prescriptions were given: levoFLOXacin tablet [Levaquin tablet] 500 mg PO Q48H #4 tablet Primary Care Physician: Abran Reveles MD [Primary Care Provider] - Please follow up with your Primary Care Physician in: 1-2 weeks Test Results: Test results from this visit will be discussed in further detail at your follow-up appointment, if applicable. Please Follow Up With: Pedro Walker MD - AV fistula When: Call for appointment Please Follow Up With: Vannessa Blakely DO When: Resume Dialysis Proposed Discharge Date: 12/10/18 12/10/18 1223 <Electronically signed by Lance WASHINGTON> Date Lance WASHINGTON CC: Vannessa Blakely DO; Abran Reveles MD Signed CBC W/DIFF, AUTOMATED Collected: 12/10/2018 Status: F Source: [place] 5:35 AM [facility] [place] [facility] TYPE CODE TESTS RESULT OUT OF RANGE REFERENCE UNITS LAB L100.1000 4.4-11.0 K/mm3 Normal WBC 10.2 LAB L100.1200 4.6-6.2 M/mm3 Low RBC 3.27 LAB L100.1300 13.0-16.5 g/dl Low HGB 8.7 LAB L100.1400 40-54 % Low HCT 29.7 LAB L100.1500 80-94 fL Normal MCV 90.8 LAB L100.1600 27.0-32.0 pg Low MCH 26.6 LAB L100.1700 32-36 g/gl Low MCHC 29.3 LAB L100.1810 11.6-14.6 % High RDW CV 15.6 LAB L100.1820 35.1-43.9 fl High RDW SD 51.0 LAB L100.1900 150-450 K/mm3 Normal PLT 335 LAB L100.2000 6.2-12.0 fl Normal MPV 9.0 LAB L100.2100 47-70 % High NEUT% 73.3 LAB L100.2200 19-41 % Low LY% 13.8 LAB L100.2300 0-10 % Normal MONO% 8.1 LAB L100.2400 0-5 % Normal EO% 4.0 LAB L100.2500 0-1 % Normal BASO% 0.5 LAB L100.2550 0.0-0.9 % Normal IM GRAN % 0.300 Result Comment: IG% - Immature Granulocytes (promyelocytes, myelocytes and metamyelocytes) > 1% indicates that a LEFT SHIFT is Present. LAB L100.2620 2.0-7.7 X10 3/uL Normal Absolute Neut 7.5 LAB L100.2720 0.83-4.51 X10 3/ul Normal Absolute Lymph 1.41 Performed By: #### L100.0100 #### [facility] [address] [place], [address] BASIC METABOLIC Collected: 12/10/2018 Status: F Source: [place] PROFILE ([facility]) 5:35 AM [facility] [place] [facility] TYPE CODE TESTS RESULT OUT OF RANGE REFERENCE UNITS LAB L501.0100 74-106 mg/dL Normal GLU 77 Result Comment: Please note revised GLUCOSE reference range effective 2017. LAB L501.1000 7-18 mg/dL High BUN 36 LAB L501.1100 0.70-1.30 mg/dL High CREAT,SERUM 6.40 Result Comment: The validity of the calculated GFR AND GFRAA in patients over 70 years has not been determined. Clinical correlation is essential. LAB L501.1110 >60 mL/min Low EST GFR 10 Result Comment: Non- GFR Calc LAB L501.1115 >60 mL/min Low EST GFR - AA 12 Result Comment: GFR Calc LAB L501.1255 ml/min Normal Estimated CRCL 13.31 LAB L501.1300 10-20 RATIO Low BUN/CRE 5.6 LAB L501.2200 8.5-10 mg/dL Low .1 CA 8.4 LAB L501.5300 136-14 mmol/L Low 5 NA 135 LAB L501.5600 3.5-5. mmol/L Normal 1 K 4.8 LAB L501.5900 98-107 mmol/L Normal CL 99 LAB L501.6100 21.0-3 mmol/L Normal 2.0 CO2 27.0 LAB L501.6200 5-15 Normal GAP 9 Performed By: #### L500.2500 #### [facility] [address] [place], [address] TROPONIN-I Collected: 12/09/2018 Status: F Source: [place] 7:56 PM [facility] [place] [facility] Order Comment: 'TROP' Serial specimen #1, #2 or #3: 3 TYPE CODE TESTS RESULT OUT OF RANGE REFERENCE UNITS LAB L501.4010 <0.045 ng/mL Normal < 0.015 TROPONIN-I Result Comment: TROPONIN-I EXPECTED VALUES <0.045 Negative 0.045 - 0.590 Consistent with Cardiac Damage > OR = 0.600 Critical Value Not every elevated troponin is indicative of ID. These values should be used with clinical judgement in examining the patient's clinical picture for diagnosis. To establish a diagnosis of ID versus myocardial injury, there must be a demonstrated rise and/or fall in the troponin values, in addition to ischemic symptoms, EKG changes, new regional wall motion abnormality, and/or angiographical evidence. PLEASE NOTE: REFERENCE RANGES EDITED 18 Performed By: #### L501.4010 #### [facility] [address] [place], [address] HISTORY AND PHYSICAL Observed: 12/09/2018 Status: F Source: [place] EXAM 7:37 PM [facility] [place] [facility] Medical Records Department [address] [place] [id number] History and Physical 12/09/18 1543 MR#: [id number] Acct: [id number] Name: ROBERT MCCRARY Rep #: [id number] : 1960 58 From: Lance WASHINGTON PCP: Abran Reveles MD Status: ADM IN Location: [place] [address] ADDENDUM by Nancie Wilkes on 12/09/18 at 1937 12/09/18 1937 <Electronically signed by Nancie Wilkes MD> Date Nancie Wilkes MD cc: PADMINI Hernandez; Nancie Wilkes; Abran Reveles MD * Signed ADDENDUM by PADMINI Hernandez on 12/09/18 at 1614 Code Visit Addendum: I informed Dr. Walker his patient was here with pneumonia, he let me know he planned for surgery Saturday, and would cancel it. He requests that we please contact him when the patient will be discharged so that arrangements can be made to reschedule surgery. Lance Hernandez PA-C 12/09/18 1615 <Electronically signed by Lance WASHINGTON> Date Lance Hernandez cc: PADMINI Hernandez; Nancie Wilkes; Abran Reveles MD * Signed <Lance Hernandez - Last Filed: 12/09/18 15:50> Problem List (1) Pneumonia Status: Acute (2) Anemia Status: Chronic (3) ESRD (end stage renal disease) Status: Chronic (4) Problem with dialysis access Status: Chronic (5) Chronic renal insufficiency, stage V Status: Chronic (6) Hyperlipidemia Status: Chronic (7) Hypothyroidism Status: Chronic (8) Type II diabetes mellitus Status: Chronic (9) DAVID (obstructive sleep apnea) Status: Chronic History of Present Illness Date of Admission: 12/09/18 Chief Complaint: chest pain The patient is a 58 year old M with pmhx of ESRD (patient of Dr. Blakely), with access problems in his left arm (pt of Dr. Walker), diastolic CHF, GI bleed without clear etiology, chronic abdominal pain and adenopathy, HTN, hypothytroid, GERD, DMt2, DAVID, who presented to the ER with a chief complaint of left sided chest pain. He states he began to feel unwell on Saturday, and initially began with chills, nausea and vomiting, and all over body aches. He then developed a cough that is productive of dark red blood. Later the chest pain developed, which is across the lateral aspect of his left chest. He went to dialysis this AM and had 3.5 hour session, then was sent to the ER. He is not hypoxic or SOB. And appears comfortable on room air. He does appear to have BL pna. He reports that his mother in law whom he lives with is sick on antibiotics for bronchitis. He will be admitted to the PCU with HCAP. Also of note, has been receiving dialysis thru his central line, as his AV fistula is not functioning, and he is supposed to see [facility] for this Saturday. [] Past Medical History Past Medical History (Chronic Problems): Chronic Problems (Last Reviewed 11/28/18 @ 13:01 by Amanda Adrian) End stage renal disease on dialysis (Chronic) Anemia (Chronic) ESRD (end stage renal disease) (Chronic) Problem with dialysis access (Chronic) DAVID (obstructive sleep apnea) (Chronic) Lymphadenopathy (Chronic) Hyperlipidemia (Chronic) Hypothyroidism (Chronic) Hypertension (Chronic) Type II diabetes mellitus (Chronic) Medical History: Medical History (Last Reviewed 11/28/18 @ 13:01 by Amanda Adrian) Problem with dialysis access (Acute) T82.898A Enteritis (Acute) K52.9 Lymphadenopathy (Chronic) R59.1 Chronic renal insufficiency, stage V (Chronic) N18.5 ELMO (acute kidney injury) (Acute) N17.9 Hyperkalemia (Acute) E87.5 Hyperlipidemia (Chronic) E78.5 Hypothyroidism (Chronic) E03.9 Hypertension (Chronic) I10 Type II diabetes mellitus (Chronic) E11.9 Community acquired pneumonia (Acute) J18.9 Allergies epoetin beta [From Mircera] Adverse Reaction (Verified 12/09/18 10:59) back pain Home Medications: Ambulatory Orders Medication Instructions Recorded Surgical History: Surgical History (Last Reviewed 11/28/18 @ 13:01 by Amanda Adrian) H/O hernia repair Z98.890, Z87.19 Presence of surgically created arteriovenous shunt for hemodialysis Z99.2 LLE fistula-05/15/2018 S/P nasal surgery Z98.890 Surgical History: - - AV fistulas. Psychiatric History: No pertinent psych hx Lives: With Family Smoking Status: Never smoker Tobacco Use: Chew Alcohol: None Drugs: None - *Family History Maternal Family History: Family History (Last Reviewed 11/28/18 @ 13:01 by Amanda Adrian) Father No problems noted. History Items: Diabetes Paternal Family History: Family History (Last Reviewed 11/28/18 @ 13:01 by Amanda Adrian) Father No problems noted. History Items: Stroke Review of Systems Constitutional: Reports: Chills, Malaise, Fatigue Cardiovascular: Reports: Chest Pain. Denies: Edema, Orthopnea Respiratory: Reports: Cough, Hemoptysis, Pleuritic Pain. Denies: Shortness of Breath Gastrointestinal: Reports: Nausea, Vomiting. Denies: Abdominal Pain, Diarrhea VTE Information - Inpt Only VTE Present on Admission: No VTE Mechan Device Prophylaxis: SCD's VTE Pharm Prophylaxis ordered?: No Patient Problems: Active and Suspected Problems (Last Updated 12/09/18 @ 16:06 by Nancie Wilkes MD) Healthcare-associated pneumonia (Acute) - Physical Exam General: Alert, Oriented x3, Cooperative HEENT: Atraumatic, PERRLA, EOMI, Normocephalic Neck: Supple, No JVD, Negative Carotid Bruits Lungs: Diminished, Rales - L>R Cardiovascular: Regular rate, No murmurs Abdomen: Bowel Sounds Present, Soft, Non Tender Extremities: No edema, Capillary Refill Less than 3 Seconds Skin: No rashes, No breakdown Musculoskeletal: No Tenderness to Palpation of Joints or Extremities Neurological: Cranial nerves II-XII grossly intact Psych/Mental Status: Normal Affect, Appropriate, Alert and oriented to time, place, person, mood and affect Vital Signs Temp Pulse Resp BP Pulse Ox 98 F 81 16 150/65 H 94 12/09/18 10:56 12/09/18 15:17 12/09/18 15:17 12/09/18 15:17 12/09/18 15:17 Oxygen Delivery Method Room Air Weight: 175 lb 4.28 oz Body Mass Index (BMI) 25.1 Laboratory Tests Past 24 Hrs WBC 12.6 H RBC 3.77 L Hgb 10.2 L Hct 33.6 L MCV 89.1 MCH 27.1 MCHC 30.4 L Assessment/Plan All Active Problems (Last Updated 12/09/18 @ 16:06 by Nancie Wilkes MD) Healthcare-associated pneumonia (Acute) 1. Acute HCAP - CTA with BL pna. Rales on exam. Afebrile. Increased WBCs. Will give vanc and zosyn, mucinex, aerosols, IS therapy. Sputum culture if possible - he is reporting hemoptysis. Check respiratory panel. Family at home is sick as well. 2. Chest pain - symptoms are c/w pleurisy from pna. EKG negative, troponin negative. 3. ESRD - pt of Dr. Blakely - last session this AM. AV fistula issues - plans to see Dr. Walker Saturday to evaluate. 4. Hx diastolic CHF - no acute exacerbation 5. DAVID - compliant with CPAP qhs 6. Hx GI bleed of unclear etiology - was recently here for this and was transferred to [facility], reports no etiology was ID'd. 7. DMt2 - diet controlled only. 8. HLD - zocor 9. Anxiety - celexa 10. Hypothyroid - synthroid DVT ppx: SCDs. caution with anticoagulation given GI bleeding hx and hemoptysis. DC planning: Likely will return home without further needs This patient was seen by Lance Hernandez PA-C under the supervision of Doctor Chung. <Nancie Wilkes - Last Filed: 12/09/18 16:12> History of Present Illness The patient is a 58 year old M [] Past Medical History Medical History: Medical History (Last Reviewed 11/28/18 @ 13:01 by Amanda Adrian) Lymphadenopathy (Chronic) R59.1 Hyperlipidemia (Chronic) E78.5 Hypothyroidism (Chronic) E03.9 Hypertension (Chronic) I10 Type II diabetes mellitus (Chronic) E11.9 Allergies epoetin beta [From Mircera] Adverse Reaction (Verified 12/09/18 10:59) back pain Surgical History: Surgical History (Last Reviewed 11/28/18 @ 13:01 by Amanda Adrian) H/O hernia repair Z98.890, Z87.19 Presence of surgically created arteriovenous shunt for hemodialysis Z99.2 LLE fistula-05/15/2018 S/P nasal surgery Z98.890 - *Family History Maternal Family History: Family History (Last Reviewed 11/28/18 @ 13:01 by Amanda Adrian) Father No problems noted. Paternal Family History: Family History (Last Reviewed 11/28/18 @ 13:01 by Amanda Adrian) Father No problems noted. - Physical Exam Vital Signs Temp Pulse Resp BP Pulse Ox 98 F 81 16 150/65 H 94 12/09/18 10:56 12/09/18 15:17 12/09/18 15:17 12/09/18 15:17 12/09/18 15:17 Oxygen Delivery Method Room Air Weight: 175 lb 4.28 oz Body Mass Index (BMI) 25.1 Laboratory Tests Past 24 Hrs Assessment/Plan Hospitalist note: I am seeing this patient in conjunction with Lance Hernandez and I concur with the above. I independently seen and examined the patient. History and physical, laboratory data and imaging studies reviewed treatment and workup plan. Patient presented to the medicine because of 2-day history of fever and chills as well as malaise, body aches and not feeling well. Since yesterday, he started having left-sided chest pain, involving the whole left side of the chest both posteriorly and anteriorly, dull aching pain, not radiating, aggravated by movement or taking a deep breath and he was not able even to lay on his left side. He denied significant shortness of breath, dizziness or lightheadedness. At this time, his blood pressure slightly elevated, other vital signs are stable. Chest x-ray done and showed no obvious infiltrate or consolidation. CTA chest and showed no evidence of PE or dissection, revealed diffuse groundglass appearance of both upper lobes and lower lobes slightly worse on the left side. He is being admitted for bilateral healthcare associated pneumonia. - Physical Exam General: Alert, Oriented x3, Cooperative, No apparent distress. HEENT: Atraumatic, PERRLA, EOMI. Neck: Supple, No JVD, Negative Carotid Bruits, Trachea Midline, Thyroid Normal. Lungs: Decreased breath sounds bilateral, coarse crackles on the hold right lung, rhonchi, no wheezes.. Cardiovascular: Regular rate, Regular Rhythm, Normal S1, Normal S2, PMI Normal. Abdomen: Bowel Sounds Present, Soft, Non Tender, Non-Distended, No Hepato-splenomegaly. Extremities: No clubbing, No cyanosis, No edema Skin: No rashes, No breakdown Neurological: Cranial nerves are intact, neuro grossly intact. Assessment and plan: #1 acute bilateral healthcare associated pneumonia: CTA chest reviewed. Patient is not septic, no leukocytosis, lactic acid is pending. He is afebrile. His vital signs are stable except slightly for the blood pressure. Plan: Admit to PCU, cardiac monitoring, blood culture, sputum culture, urine culture, start IV vancomycin and Zosyn, albuterol as needed, repeat CBC and BMP tomorrow morning, pneumococcal and Legionella antigen, PT OT evaluation and treatment. #2 pleuritic chest pain: It is pleuritic pain, worse than when taking a deep breath and moving. EKG reviewed, revealed normal sinus rhythm, normal QTC, no acute ischemic changes. Plan: Cardiac monitoring, serial cardiac enzymes, repeat EKG in the morning. #3 ESRD on hemodialysis: He went for dialysis today, potassium is normal, BUN and creatinine are stable. Plan for nephrology consult. #4 other chronic medical problems: Stable, continue current medications as above. This note was generated with Electronifie dictation software. It may contain incorrect words, spelling, and punctuation that were not noted in checking the note before signing. Code Visit Inpatient E AND M: 88024 Init Hosp L3 12/09/18 1558 <Electronically signed by Lance WASHINGTON> Date Lance WASHINGTON 12/09/18 1612<Electronically signed by Nancie Wilkes MD> Cosigner Signature: Date (if applicable) Nancie Wilkes MD CC: PADMINI Hernandez; Nancie Wilkes; Abran Reveles MD Signed Observed: 12/09/2018 Status: F Source: EMPERATRIZ LEGIONELLA ANTIGEN 6:57 PM [facility] Legionella, UR Legionella Antigen result interpretation: Negative Presumptive negative for Legionella pneumophila serogroup 1 antigen in urine, suggesting no recent or current infection. Legionella Ag, Urine Negative (See interpretation below) Performed By: #### M300.4500 #### [facility] [address] [place], [address] URINALYSIS, ROUTINE Collected: 12/09/2018 Status: F Source: EMPERATRIZ (DIPSTICK) 5:50 PM [facility] Order Comment: How was Urine Obtained? PCI SECURITY CONSULTANT TO SPECIFY TYPE CODE TESTS RESULT OUT OF RANGE REFERENCE UNITS LAB L400.3000 Yellow COLOR Normal Yellow LAB L400.3050 Clear Normal CLARITY Sl. Cloudy LAB L400.3200 Normal mg/dl High GLUCOSE, UR 100 LAB L400.3300 Negative mg/dL Normal BILIRUBIN URINE Negative LAB L400.3400 Negative mg/dl Normal KETONE UR Negative LAB L400.3465 1.002-1.030 Normal SP.GR. DIPSTX 1.010 LAB L400.3550 5.0 - 8.0 pH UR Normal 8.0 LAB L400.3600 Negative mg/dl High PROT DIPSTX 500 LAB L400.3700 Normal mg/dl Normal UROBILI Normal LAB L400.3750 Negative Normal NITRITE UR Negative LAB L400.3780 Negative /ul High OCCULT BLOOD-UR 250 LAB L400.3800 Negative /ul High LEUK ESTERASE 100 Performed By: #### L400.2011 #### [facility] [address] [place], [address] STREP Observed: 12/09/2018 Status: F Source: EMPERATRIZ PNEUMONIAE ANTIG(UR,CSF) 5:50 PM [facility] S pneumo Ag URINE INTERPRETATION Negative Urine Presumptive negative for pneumococcal pneumonia, suggesting no current or recent pneumococcal infection. Infection due to S pneumoniae cannot be ruled out since the antigen present in the sample may be below the detection limit of the test. Strep pneumo Test Negative URINE (See interpretation below) Performed By: #### M300.4600 #### [facility] [address] [place], [address] EMERGENCY DEPARTMENT Observed: 12/09/2018 Status: F Source: EMPERATRIZ SUMMARY 4:09 PM [facility] REPOSITORY [facility] Medical Records Department [address] [place] [address] Emergency Department Summary 12/09/18 1526 MR#: [id number] Acct: [id number] Name: ROBERT MCCRARY Rep #: [id number] : 1960 58 From: Santo Farr MD PCP: Abran Reveles MD Status: ADM IN - ER Visit Summary Date of Service: 12/09/18 Chief Complaint: Chest pain History of Present Illness: The patient is a 58 M with left- sided chest pain that has been getting worse over the past 5 days. Patient has had some chills, nausea, vomiting, joint aches, left side chest pressure radiating to his left arm, shortness of breath, and hypoxia 89% at home. Patient has a history of end-stage renal disease and goes to hemodialysis, Saturday, , and Saturday. He did have his dialysis today. Physical Examination: Afebrile and vital signs unremarkable. 99% on room air. Alert and oriented. No acute distress. Heart regular. Lungs clear. Abdomen soft. Skin appears unremarkable. Test Results: EKG showed sinus rhythm at a rate of 76. White count 12.6 and hemoglobin 10.2. Metabolic panel unremarkable. Troponin normal. Lactate pending. Cultures pending. Chest x-ray was unremarkable. CTA showed diffuse groundglass infiltrates worse on the left concerning for pulmonary infiltrates. Emergency Department Course and Treatment: Patient presents with chest pain as well as respiratory and infectious symptoms. His EKG and labs were initially unremarkable. Chest x-ray unremarkable. There was concern for PE, and so a CTA was performed after consultation with his senior talent acquisition specialist. This showed no evidence of PE, but he does have groundglass infiltrates worse on the left where his pain is. I spoke with the patient. He has had infectious and respiratory symptoms. I suspect this is a pneumonia. I added on cultures and a lactate. I treated him with Zosyn and vancomycin since he is a dialysis patient. He is not hypoxic here but has had some hypoxia at home. He had a history of hypoxia from pneumonia and required hospitalization in the past. He was discussed with the hospitalist and will be admitted for further care. Treatment Plan: As above Disposition: Admission Impression: 1. Bilateral pneumonia 2. End-stage renal disease This note was generated with Reasultation software. It may contain incorrect words, spelling, and punctuation that were not noted in review of the chart prior to signing ED Disposition - Plan for ED Patient: Chief Complaint: Chest Pain Referrals: Abran Reveles MD [Primary Care Provider] - What to do if you have Problems For any increased pain, shortness of breath, bleeding, nausea or vomiting, chest pain, or any unexpected problems, contact your Primary Care Provider. Call [facility] ([phone]) or report to the closest Emergency Room. Call 911 if necessary. 12/09/18 1609 <Electronically signed by Santo Farr MD> Date Santo Farr MD Cosigner Signature (If Indicated): Date CC: Abran Reveles MD Observed: 12/09/2018 Status: F Source: EMPERATRIZ CULTURE, BLOOD (WB) 3:50 PM [facility] BC No growth in 5 days. Performed By: #### M200.1000 #### [facility] [address] [place], [address] Observed: 12/09/2018 Status: F Source: EMPERATRIZ CULTURE, BLOOD (WB) 3:50 PM [facility] BC No growth in 5 days. Performed By: #### M200.1000 #### [facility] [address] [place], [address] LACTIC ACID Collected: 12/09/2018 Status: F Source: EMPERATRIZ 3:45 PM [facility] Order Comment: Yes/No query for Sepsis Lactate Rule Y TYPE CODE TESTS RESULT OUT OF RANGE REFERENCE UNITS LAB L503.6005 0.4-2.0 mmol/L Normal LACTIC ACID 1.3 Performed By: #### L503.6005 #### [facility] [address] [place], [address] CTA CHEST W/WO Observed: 12/09/2018 Status: F Source: EMPERATRIZ CONTRAST 1:13 PM [facility] Imaging Services [address] [place] [address] CTA Chest W/WO Contrast MR#: [id number] Acct: [id number] Name: ROBERT MCCRARY Rep #: [id number] : 1960 M 58 From: Godwin Palmer MD PCP: Abran Reveles MD Status: REG ER Study: CTA Chest W/WO Contrast Date of Exam: 12/09/18 Exam# [id number] Ordering Dr: Santo Farr MD STUDY: CTA CHEST REASON FOR EXAM: Male, 58 years old. Chest pain. Possible pulmonary embolism. RADIATION DOSAGE (If Supplied By Facility): CTDIvol = ( 18.77 ) mGy, DLP = ( 618.44 ) mGycm TECHNIQUE: The examination was performed with the intravenous administration of 100 ml of Isovue 370 contrast material. Post-processing of the angiographic images was performed, with multiplanar reformation and 3D reconstruction. Individualized dose optimization techniques were used for this CT. COMPARISON: None. FINDINGS: Normal enhancement of the main pulmonary artery and right and left pulmonary arteries. Normal enhancement of the bilateral peripheral pulmonary arteries. There is no demonstrated pulmonary embolism. There is atherosclerotic calcification of the aortic arch with tortuosity. There is no demonstrated aortic dissection. There are calcifications of the coronary arteries. There are visualized mediastinal lymph nodes, which are within normal size limits, and with normal morphology. Normal hilar regions. Normal visualized trachea and bronchi. The lungs are well expanded. Diffuse groundglass appearance in both upper lobes as well as in the lower lobes slightly worse on the left side. This may represent pneumonic infiltrates. Follow-up is recommended. Normal pleura. Normal chest wall structures. There are degenerative changes of thoracic spine. Left adenopathy is seen in the retrocrural region of both right and left hemidiaphragms. The largest lymph node is on the right side and measures 2.1 cm. I also suspect lymphadenopathy in the peripancreatic region. CT/CTA Chest W/WO Contrast IMPRESSION: Diffuse groundglass appearance in both upper lobes as well as in the lower lobes slightly worse on the left side. This may represent pneumonic infiltrates. Electronically Signed: Godwin Palmer MD at 14:40 EST Tel [phone], Service support , CC: Santo Farr MD; Abran Reveles MD Manager Mountain: Signed CHEST 1 VIEW Observed: 12/09/2018 Status: F Source: EMPERATRIZ (PORTABLE) 11:18 AM [facility] Imaging Services [address] [place] [address] Chest 1 View (Portable) MR#: [id number] Acct: [id number] Name: ROBERT MCCRARY Rep #: [id number] : 1960 M 58 From: Fidel Reyes MD PCP: Abran Reveles MD Status: REG ER Study: Chest 1 View (Portable) Date of Exam: 12/09/18 Exam# [id number] Ordering Dr: Santo Farr MD STUDY: X-RAY CHEST REASON FOR EXAM: Male, 58 years old. Left-sided chest pain x 2 days. History of kidney failure. TECHNIQUE: AP portable upright view of the chest on 2 images. COMPARISON: Portable AP upright chest x-ray October 31, 2018. FINDINGS: The tunneled dual-lumen right chest wall hemodialysis catheter again has its tip in the superior vena cava. The lungs are clear and moderately expanded. There is no demonstrated pleural abnormality. Normal size heart. Normal mediastinum and kieran. Normal visualized pulmonary arteries. Normal visualized aortic arch and descending thoracic aorta. Normal visualized thoracic spine. Normal visualized ribs, clavicles, and shoulders. There is no demonstrated abnormality of the visualized soft tissue structures of the upper abdomen. RAD/Chest 1 View (Portable) IMPRESSION: No acute cardiopulmonary disease. Electronically Signed: Pancho Reyes MD at 12:22 EST , Service support , CC: Santo Farr MD; Abran Reveles MD Manager Mountain: Signed CBC W/DIFF, AUTOMATED Collected: 12/09/2018 Status: F Source: EMPERATRIZ 11:10 AM [facility] TYPE CODE TESTS RESULT OUT OF RANGE REFERENCE UNITS LAB L100.1000 4.4-11.0 K/mm3 High WBC 12.6 LAB L100.1200 4.6-6.2 M/mm3 Low RBC 3.77 LAB L100.1300 13.0-16.5 g/dl Low HGB 10.2 LAB L100.1400 40-54 % Low HCT 33.6 LAB L100.1500 80-94 fL Normal MCV 89.1 LAB L100.1600 27.0-32.0 pg Normal MCH 27.1 LAB L100.1700 32-36 g/gl Low MCHC 30.4 LAB L100.1810 11.6-14.6 % High RDW CV 16.0 LAB L100.1820 35.1-43.9 fl High RDW SD 51.3 LAB L100.1900 150-450 K/mm3 Normal PLT 369 LAB L100.2000 6.2-12.0 fl Normal MPV 9.8 LAB L100.2100 47-70 % High NEUT% 84.0 LAB L100.2200 19-41 % Low LY% 6.7 LAB L100.2300 0-10 % Normal MONO% 7.6 LAB L100.2400 0-5 % Normal EO% 1.3 LAB L100.2500 0-1 % Normal BASO% 0.2 LAB L100.2550 0.0-0.9 % Normal IM GRAN % 0.200 Result Comment: IG% - Immature Granulocytes (promyelocytes, myelocytes and metamyelocytes) > 1% indicates that a LEFT SHIFT is Present. LAB L100.2620 2.0-7.7 X10 3/uL High Absolute Neut 10.6 LAB L100.2720 0.83-4.51 X10 3/ul Normal Absolute Lymph 0.85 Performed By: #### L100.0100 #### [facility] [address] [place], [place], [address] COMPREHENSIVE METABOLIC Collected: 12/09/2018 Status: F Source: EMPERATRIZ [facility] 11:10 AM [facility] TYPE CODE TESTS RESULT OUT OF RANGE REFERENCE UNITS LAB L501.0100 74-106 mg/dL Normal GLU 101 Result Comment: Fasting Glucose result from 100 to 125 mg/dL suggests IMPAIRED HOMEOSTASIS per A.D.A. criteria. Please note revised GLUCOSE reference range effective 2017. LAB L501.1000 7-18 mg/dL High BUN 23 LAB L501.1100 0.70-1.30 mg/dL High CREAT,SERUM 4.43 Result Comment: The validity of the calculated GFR AND GFRAA in patients over 70 years has not been determined. Clinical correlation is essential. LAB L501.1110 >60 mL/min Low EST GFR 15 Result Comment: Non- GFR Calc LAB L501.1115 >60 mL/min Low EST GFR - AA 18 Result Comment: GFR Calc LAB L501.1255 ml/min Normal Estimated CRCL 19.22 LAB L501.1300 10-20 RATIO Low BUN/CRE 5.2 LAB L501.1500 6.4-8. g/dL High 2 T PROT 8.3 LAB L501.1800 3.2-5. g/dL Normal 0 ALB 3.3 LAB L501.1950 2.2-4. g/dL High 2 GLOB 5.0 LAB L501.2000 0.9-2. RATIO Low 4 A/G 0.7 LAB L501.2200 8.5-10 mg/dL Normal .1 CA 8.9 LAB L501.4100 15-37 U/L High AST 44 Result Comment: Moderate Hemolysis, Result may be falsely increased. LAB L501.4305 45-117 U/L Normal ALK P 56 LAB L501.4405 16-61 U/L Normal ALT 16 LAB L501.4600 0.20-1.00 mg/dL High T BILI 1.40 LAB L501.5300 136-145 mmol/L Low NA 134 LAB L501.5600 3.5-5.1 mmol/L Normal K 4.7 Result Comment: Moderate Hemolysis, Result may be falsely increased. LAB L501.5900 98-107 mmol/L Low CL 94 LAB L501.6100 21.0-32.0 mmol/L Normal CO2 31.0 LAB L501.6200 5-15 Normal GAP 9 Performed By: #### L500.4050, L501.4010 #### [facility] [address] [place], [address] TROPONIN-I Collected: 12/09/2018 Status: F Source: [place] 11:10 AM [facility] TYPE CODE TESTS RESULT OUT OF RANGE REFERENCE UNITS LAB L501.4010 <0.045 ng/mL Normal < 0.015 TROPONIN-I Result Comment: TROPONIN-I EXPECTED VALUES <0.045 Negative 0.045 - 0.590 Consistent with Cardiac Damage > OR = 0.600 Critical Value Not every elevated troponin is indicative of ID. These values should be used with clinical judgement in examining the patient's clinical picture for diagnosis. To establish a diagnosis of ID versus myocardial injury, there must be a demonstrated rise and/or fall in the troponin values, in addition to ischemic symptoms, EKG changes, new regional wall motion abnormality, and/or angiographical evidence. PLEASE NOTE: REFERENCE RANGES EDITED 18 Performed By: #### L500.4050, L501.4010 #### [facility] [address] [place] [place], [address] SURGERY VISIT REPORT Observed: 11/28/2018 Status: F Source: [place] 1:15 PM [facility] [address] [place] [address] OFFICE VISIT Date of Service: 11/28/18 MR#: [id number] Acct: [id number] Name: DEMETRAROBERT R Rep #: [id number] : 1960 Provider: Pedro aWlker MD Age/Sex: 58/M Location: [facility] Status: Signed Intake Intake Visit Reasons: F/U FISTULA PLACEMENT 11/06/2018 Chief Complaint: recheck fistula--aneurysm 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 Is patient in pain?: No Allergies epoetin beta [From Mircera] Adverse Reaction (Verified 11/28/18 13:02) back pain Medications Levothyroxine [Synthroid] 150 mcg PO QHS 10/28/15 [History Confirmed 11/28/18] Simvastatin [Zocor] 20 mg PO QHS 10/28/15 [History Confirmed 11/28/18] Citalopram Hydrobromide [Citalopram HBr] 40 mg PO QHS 01/03/18 [History Confirmed 11/28/18] Ergocalciferol [Vitamin D] 50,000 unit PO WE 01/21/18 [History Confirmed 11/28/18] Amlodipine [Norvasc] 10 mg PO QHS 05/08/18 [History Confirmed 11/28/18] hydrALAZINE [Apresoline] 25 mg PO TID 05/08/18 [History Confirmed 11/28/18] Calcium Acetate 2 cap PO TIDCM 08/01/18 [History Confirmed 11/28/18] Yoko-Anna 0.8 mg PO QHS 08/01/18 [History Confirmed 11/28/18] Subjective Details: 58-year-old gentleman. I have had significant difficulty in getting a functioning left upper extremity AV hemodialysis fistula for him. Most recently on November 06 I created a left upper extremity stage I brachiobasilic AV fistula. He has no particular complaints. His left forearm incisions are healing currently. He does have sensitivity. There is likely some superficial thrombo-phlebitis at that spot. He has been seen at the [facility]. He is a candidate for renal transplantation and he is working his way through that process. Objective Details: Alert, no acute distress, aware of his situation and place Chest: Clear to auscultation Cardiac exam regular Abdomen soft nontender Left upper extremity has healing left forearm longitudinal incisions. He has a oblique incision in the left antecubital space. There is double basilic vein outflow of the inner aspect of the left upper arm. On ultrasound inspection both of these sites are maturing very well. The more posterior and deeper branch it seems to be more dominant Calves are supple nontender Neuro patient is alert aware of his situation and place Assessment AND Plan Problems 1. Problem with dialysis access, subsequent encounter T82.862F Plan I have recommended the patient stage II transposition left upper extremity basilic vein to brachial artery AV fistula creation. He has dual basilic veins. They do connect with each other both proximally and distally. One will need to be sacrificed. The more posterior one appears to be more dominant. He is aware of the technique, benefit, risks and alternatives. I believe that this basilic vein is very dominant. I would need to be very careful in the degree of the anastomosis so as to not create an arteriovenous steal. Pedro Walker M.D., F.A.C.S. Coding Level of Care Code Global Post Op Diagnoses Problem with dialysis access, subsequent encounter T82.898A Encounter type: subsequent encounter 11/28/18 1315 <Electronically signed by Pedro Walker MD> Date Pedro Walker MD Cosigner Signature: Date (if applicable) CC: HISTORY PHYSICAL Observed: 11/26/2018 Status: COMPLETED Source: [place]AL 1:08 PM [facility] [place] RE[place]IT[facility] ID: [id number] Author: Lorena Marroquin Service: (none) Author Type: Physician Type: HANDP Filed: 11/26/2018 5:41 PM Note Text: PSYCHIATRY CONSULT SERVICE TRANSPLANT CONSULT NOTE Patient Name: Robert Mccrary Date: November 26, 2018 Consulting Service: Kidney transplant team Chief Complaint: Depression. HPI: Transplantation was first mentioned even before he was diagnosed with stage 5 kidney disease, or ESRD, about in January 2018. He was shocked about how many people have kidney failure, 2 dialysis centers in [place]. Success Rate (patient understanding): He also went through kidney evaluation at [facility] in [place], and his insurance was pushing the Living donor program there, so was there 2 weeks ago. He thought both programs were about the same. He learned that Living donor is the best option, a cadaver kidney is the other option. The longevity of the kidney staying functional is better with living donor, and can set up things electively. Donors--he has 2 available, that have not yet been tested, his sister and his . He says right now he does not feel bad, so how speedy this is , is not his concern, rather doing the right thing and Gong the right path, and having everything set up. Success rate--98% would still be working he thought. Risks (patient understanding): no recall. Prednisone causes hunger in him, and makes him bitchy about eating he says. Anesthesia , Bleeding , Infection , Rejection , Mortality/ .kidney loss, skin cancer, PTLD, GVHD. Compliance: How do your organize your medications at home ? He just lines them up, has some in the morning on the table, And the remainder are evening ( in the cabinet) before bedtime. What are the names of your medications? He knows the names and routine. How many times a week do your forget to take your medication? He may forget the morning medications, not the evening ones. The Hydralazine and binders before he eats may forget in the morning, perhaps 3 times per week. Where do you have your dialysis? [facility], Since December of 2017. Weight gain between dialysis sessions: He gains about 2-3 kg and up to 4 kg. He still makes urine. What is your fluid restriction: She tells me to drink no more than 40 oz per day. He has always been a liquid drinker, so for him to curb back is a work in progress. How are you doing with your renal diet: How is your potassium level?: 5.5 How is your phosphorus level?: 6.9 How is your blood sugar lately?: Ok. What is your Blood pressure?: He thinks it is a little high during dialysis. Saturday SBP was 70 and he was dizzy, So they had to hydrate him a little bit. Goals (Potassium, Phosphorus, glucose, blood pressure, weight): Discussed with him today. He is getting his appetite back, had lost 50 lb during this process. 77.7 kg is his dry weight. He thinks this may need to be adjusted. Organ: Do you have any guilt or superstitions about having an organ from someone who is ? None. Current Supports: Include spouse/partner and son living in town, his parents, one sister ( quite a bit) and jehovah's witness friends. He feels hari, and this helps him stay upbeat. The ESRD does not really affect him that much. He feels things are being taken care of, Whether this is dur to his strong silver, or overall attitude. If there is a will there is a way, he feels. He has to pace himself if he cannot walk across the shopping mall. Caregiver: Who will care for you during the first month? His set-up now, is that he believes his will be the caregiver, assuming She is not the donor. If not, he will have to come up with Plan B. STRESSORS: Medical Problems They are living with [id number] 92 years old. They do have caregivers to help with her. She is old and does not clean up well after herself, so he voiced some Concerns about bacterial infections. Finances are OK. COPING: Family, Prayer and jehovah's witness friends. PAST MEDICAL HISTORY PAST MEDICAL HISTORY Diagnosis Date - Anemia - Depression - DM (diabetes mellitus) ([facility]) - ESRD (end stage renal disease) ([facility]) - HTN (hypertension) - Hyperlipidemia - Hyperparathyroidism due to renal insufficiency (HCC) - Hyperphosphatemia - Hypothyroid - Iron deficiency - Vitamin D deficiency PAST SURGICAL HISTORY PAST SURGICAL HISTORY Procedure Laterality Date - FISTULA - HERNIA REPAIR HX 1983 inguinal - REPAIR UMBILICAL JAMES,5+Y/O,REDUC 11/19/12 with mesh PSYCHIATRIC HISTORY Diagnosis: Major Depressive Disorder Counseling: None. Current Psychiatrist: No prior psychiatrist Current Therapist: No prior therapist Psychiatric Hospitalization: None Hx of Suicide Attempts: Never Previous Discontinued Psychiatric Med Trials: Citalopram--from family doctor for irritability and anger. Started this about 3-4 years ago. This is the first time he has not worked in 40 years, big adjustment. Social security and disability makes up the difference In money, so he balances finances around being paid monthly rather than biweekly. PSYCHIATRIC ROS Depression: + Sleep disturbance , + Decreased Interests, + Decreased energy and + Decreased Appetite with no suicidal thoughts, intent or plan. Misty: Denies any history of hypomanic or manic episodes. Psychosis: Denies any auditory / visual hallucination or paranoid ideation. LEIF: Restless / Keyed up, Irritable and nervous a few days in the past 2 weeks. Panic: Denies any symptoms of panic OCD: Denies any symptoms of OCD. PTSD: Denies any PTSD symptoms. MEDICATIONS: Current Outpatient Prescriptions on File Prior to Visit: amLODIPine (NORVASC) 10 mg tablet Take 10 mg by mouth once daily. B Complex-Vitamin C-Folic Acid (YOKO-ANNA) 0.8 mg tab Take 0.8 mg by mouth daily with dinner. Every evening calcium acetate 667 mg (169 mg calcium)/5 mL soln Take 2 tablets by mouth three times daily with meals. citalopram (CELEXA) 40 mg tablet Take 40 mg by mouth once daily. ergocalciferol, vitamin D2, (VITAMIN D) 50,000 unit capsule Take 50,000 Units by mouth once each week. saturday hydrALAZINE (APRESOLINE) 25 mg tablet Take 25 mg by mouth three times daily. pantoprazole DR (PROTONIX) 40 mg tablet Take 40 mg by mouth once daily. SIMVASTATIN 20 mg tablet once daily. SYNTHROID 150 mcg tablet once daily. No current facility-administered medications on file prior to visit. ALLERGIES: ALLERGIES No Known Allergies SOCIAL HISTORY Identifying Information: He is disabled and lives with spouse in [place]. Where Patient was Born: [place] Where Patient was Raised:[facility], and [place]. Marital Status: x 35 years. Time at Present Residence: about 6 years, in a house they own, ( her mother's house.) Employment: Disabled . 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 Last--January 03, 2018. Education: High school. On the job training. Children: Son 26, no grandkids yet. Son walked out on his , in June. Hobbies: In the past, working on cars. The fatigue stops him from this now. Mu-Ism: Raised Alevism, now attends the [employer] jehovah's witness. Tobacco Use: Never smoked cigarettes ETOH: No history of abuse or dependence. He drinks nothing now. -CAGE: None. -History: No history of shakes, DTs. blackouts or seizures. -Longest period of abstinence Na -Last drink NA -AA/Rehab:NA Arrest(s): None ILLICIT SUBSTANCE USE Amphetamines: No history of use or dependence Barbiturates/Benzo: No history of use or dependence Cocaine: No history of use or dependence Opioids: No history of use or dependence Ecstasy/GHB/Ketamine: No history of use or dependence Marijuana: No history of use or dependence Gasoline/Kerosene/Glue: No history of use or dependence Hallucinogens(LSD/PCP/Peyote/Mescaline): No history of use or dependence Inhalants (schaefer,locker room,whippets): No history of use or dependence IV Drug Abuse: No history of use or dependence Steroid Use: No history of use or dependence FAMILY PSYCHIATRIC HISTORY: Sister-- recovering alcoholic, potential donor. Possibly bipolar disorder. No psychotic symptoms To his knowledge. She is on lithium. No drugs in the family. No suicide or dementia. FAMILY MEDICAL HISTORY: Father--pre-DM, 80 years old and has had heart issues with stents. Active, playing tennis and golf. Mother--Arthritis. Sister-donor, treated with medications for alcoholism and depression. Treatment program in [place]. Sister-unknown state of health, lives in [place] and they do not talk often, probably in good health. He is the oldest. MEDICAL ROS: Positive for fatigue, chills, weight loss, dizziness, nausea and weakness. COLLATERAL INFORMATION: chart. LABS: WBC (k/uL) Date Value 09/08/2018 11.66 Hematocrit (%) Date Value 09/08/2018 31.5 Platelet Count (k/uL) Date Value 09/08/2018 454 Sodium (mmol/L) Date Value 09/08/2018 131 Potassium (mmol/L) Date Value 09/08/2018 5.5 BUN (mg/dL) Date Value 09/08/2018 65 AST (U/L) Date Value 09/08/2018 13 ALT (U/L) Date Value 09/08/2018 8 Urine Toxicology: none done CT Brain: none done EKG: QTc- 455 on 09-08-18 HEALTH QUESTIONNAIRES A- PHQ - 9 = 7 How difficult have these problems made it for the patient? Not difficult at all B- LEIF - 7 = 3 How difficult have these problems made it for the patient? Not difficult at all C- Quality of Life (EQ-5D) - Mobility = 2 - Self-Care = 1 - Usual Activities = 3 - Pain / Discomfort = 2 - Anxiety / Depression = 1 MINI-MENTAL STATUS EXAMINATION: Orientation: Season Date [facility] Floor Saturday. 09/03 Registrative: Able to repeat 3 objects on the first try 3/3 Attention AND Calculation: Able to spell world backwards Unable to calculate serial 7's 5/5 Recall: Able to recall 3 objects -- 0/3 3/3 with clues. Language: Name pen/pencil (1pt) Name watch (1pt) Repeat No ifs, ands, or buts. (1pt) Follow command: [total 3pt] Take this paper in your (non- dominant) hand. (1pt), Fold it in half. (1 pt) and Put it on the floor. (1 pt) Read to self and then do: Close your eyes. (1pt) Write a sentence (subject, verb and makes sense) (1pt) Copy design (5-sided geometric figure; 2 points must intersect) (1pt) 08/03 TOTAL MMSE SCORE: 27/30 MENTAL STATUS Appearance: He is Neatly dressed, grooming and hygiene were appropriate. Alertness: Alert Orientation: Person, Place, Time and Situation Speech: Within normal limits with regard to rate, tone and volume. Demeanor: Appropriate, Relaxed Eye Contact: Good Thought-Cognitive: The patient denied a history of delusions or hallucinations; there is no evidence of formal thought disorder. Clear, coherent, and relevant speech Thought Processing: Goal directed, Organized Abstract Reasoning: Abstract reasoning was good Thought Content: The patient displays thought content appropriate to the interview. Mood: Depressed. Affect: Mood-congruent. Suicidal or Homicidal Ideation: Patient denies any suicidal or homicidal ideation, plan or intent at this time. Intelligence: Average Judgment: Appropriate Insight: Appropriate AXIS I: Major Depressive Disorder (single: mild), remission insomnia AXIS II: Deferred AXIS III: ESRD AXIS IV: Occupational stress/loss and Coping with medical condition AXIS V: GAF = 70-61 Some mild symptoms or some difficulty in social, occupational, or school functioning, but generally functioning pretty well. IMPRESSION: Mr. Mccrary is a 58 year old male presenting with history of depression, well treated with Celexa. He has had some difficulty with taking the Morning pills, but discussed with him the importance of adherence with binders, and post-transplant with immunosuppression to prevent acute and chronic rejection. He was never hospitalized for psychiatric reasons, and has no history of suicide attempts. His sister reportedly may have Bipolar disorder, so he will ask her about any psychotic symptoms, as he could be at risk of hallucinations With high dose steroids., However, he has not had this problem with steroids in the past, just a voracious appetite. He initially did not have capacity to make his own decision, as he retained little of what he was told about the success rate and risks involved. After teaching he retained little , but with reinforcement was able to be considered to have capacity. Would like to see him improve his adherence his fluid restriction, but he says he is still making urine, so Does not get into problems with fluid overload. His Potassium and PO4 are a little high, would be nice to see this Improve. Discussed with him the reasons that high PO4 can be a problem if his donors do not work out as [facility] high PO4 if waiting for several years, can result in calcification of his blood vessels, and could preclude A transplant. Discussed with him that his success with a transplant depends on adherence with immunosuppression. He voiced his understanding, and indicated that care after a transplant was more complex than he had anticipated And required more education than he thought. No issues with substance abuse, tobacco or alcohol. Social supports are excellent. Referred him to [facility] and FB transplant page and chat. In summary there are no major psychiatric contraindications to listing for transplantation at this time, but he has to nail down his caregivers, but if his is not his donor, she will be his major caregiver. The patient was seen face to face for one hour and 30 minutes for assessment, chart was reviewed and Rating scales scored. He has my card. Lorena Marroquin MD,[facility] Pager [phone] November 26, 2018 2:26 PM CNOV Observed: 11/26/2018 Status: COMPLETED Source: [facility] 1:00 PM [facility] [place] REPOSITORY Office Visit (PSTRMN) ROBERT MCCRARY ([id number]) 1960 M TRN Date Time Provider Department 11/26/18 1:00 PM LORENA MARROQUIN During your visit today, we recorded the following information about you: Lorena Marroquin MD 11/26/2018 5:41 PM Signed PSYCHIATRY CONSULT SERVICE TRANSPLANT CONSULT NOTE Patient Name: Robert Mccrary Date: November 26, 2018 Consulting Service: Kidney transplant team Chief Complaint: Depression. HPI: Transplantation was first mentioned even before he was diagnosed with stage 5 kidney disease, or ESRD, about in January 2018. He was shocked about how many people have kidney failure, 2 dialysis centers in [place]. Success Rate (patient understanding): He also went through kidney evaluation at [facility] in [place], and his insurance was pushing the Living donor program there, so was there 2 weeks ago. He thought both programs were about the same. He learned that Living donor is the best option, a cadaver kidney is the other option. The longevity of the kidney staying functional is better with living donor, and can set up things electively. Donors--he has 2 available, that have not yet been tested, his sister and his . He says right now he does not feel bad, so how speedy this is , is not his concern, rather doing the right thing and Gong the right path, and having everything set up. Success rate--98% would still be working he thought. Risks (patient understanding): no recall. Prednisone causes hunger in him, and makes him bitchy about eating he says. Anesthesia , Bleeding , Infection , Rejection , Mortality/ .kidney loss, skin cancer, PTLD, GVHD. Compliance: How do your organize your medications at home ? He just lines them up, has some in the morning on the table, And the remainder are evening ( in the cabinet) before bedtime. What are the names of your medications? He knows the names and routine. How many times a week do your forget to take your medication? He may forget the morning medications, not the evening ones. The Hydralazine and binders before he eats may forget in the morning, perhaps 3 times per week. Where do you have your dialysis? [facility], Since December of 2017. Weight gain between dialysis sessions: He gains about 2-3 kg and up to 4 kg. He still makes urine. What is your fluid restriction: She tells me to drink no more than 40 oz per day. He has always been a liquid drinker, so for him to curb back is a work in progress. How are you doing with your renal diet: How is your potassium level?: 5.5 How is your phosphorus level?: 6.9 How is your blood sugar lately?: Ok. What is your Blood pressure?: He thinks it is a little high during dialysis. Saturday SBP was 70 and he was dizzy, So they had to hydrate him a little bit. Goals (Potassium, Phosphorus, glucose, blood pressure, weight): Discussed with him today. He is getting his appetite back, had lost 50 lb during this process. 77.7 kg is his dry weight. He thinks this may need to be adjusted. Organ: Do you have any guilt or superstitions about having an organ from someone who is ? None. Current Supports: Include spouse/partner and son living in town, his parents, one sister ( quite a bit) and jehovah's witness friends. He feels hari, and this helps him stay upbeat. The ESRD does not really affect him that much. He feels things are being taken care of, Whether this is dur to his strong silver, or overall attitude. If there is a will there is a way, he feels. He has to pace himself if he cannot walk across the shopping mall. Caregiver: Who will care for you during the first month? His set-up now, is that he believes his will be the caregiver, assuming She is not the donor. If not, he will have to come up with Plan B. STRESSORS: Medical Problems They are living with [id number] 92 years old. They do have caregivers to help with her. She is old and does not clean up well after herself, so he voiced some Concerns about bacterial infections. Finances are OK. COPING: Family, Prayer and jehovah's witness friends. PAST MEDICAL HISTORY PAST MEDICAL HISTORY Diagnosis Date - Anemia - Depression - DM (diabetes mellitus) (HCC) - ESRD (end stage renal disease) (HCC) - HTN (hypertension) - Hyperlipidemia - Hyperparathyroidism due to renal insufficiency (HCC) - Hyperphosphatemia - Hypothyroid - Iron deficiency - Vitamin D deficiency PAST SURGICAL HISTORY PAST SURGICAL HISTORY Procedure Laterality Date - FISTULA - HERNIA REPAIR HX 1983 inguinal - REPAIR UMBILICAL JAMES,5+Y/O,REDUC 11/19/12 with mesh PSYCHIATRIC HISTORY Diagnosis: Major Depressive Disorder Counseling: None. Current Psychiatrist: No prior psychiatrist Current Therapist: No prior therapist Psychiatric Hospitalization: None Hx of Suicide Attempts: Never Previous Discontinued Psychiatric Med Trials: Citalopram--from family doctor for irritability and anger. Started this about 3-4 years ago. This is the first time he has not worked in 40 years, big adjustment. Social security and disability makes up the difference In money, so he balances finances around being paid monthly rather than biweekly. PSYCHIATRIC ROS Depression: + Sleep disturbance , + Decreased Interests, + Decreased energy and + Decreased Appetite with no suicidal thoughts, intent or plan. Misty: Denies any history of hypomanic or manic episodes. Psychosis: Denies any auditory / visual hallucination or paranoid ideation. LEIF: Restless / Keyed up, Irritable and nervous a few days in the past 2 weeks. Panic: Denies any symptoms of panic OCD: Denies any symptoms of OCD. PTSD: Denies any PTSD symptoms. MEDICATIONS: Current Outpatient Prescriptions on File Prior to Visit: amLODIPine (NORVASC) 10 mg tablet Take 10 mg by mouth once daily. B Complex-Vitamin C-Folic Acid (YOKO-ANNA) 0.8 mg tab Take 0.8 mg by mouth daily with dinner. Every evening calcium acetate 667 mg (169 mg calcium)/5 mL soln Take 2 tablets by mouth three times daily with meals. citalopram (CELEXA) 40 mg tablet Take 40 mg by mouth once daily. ergocalciferol, vitamin D2, (VITAMIN D) 50,000 unit capsule Take 50,000 Units by mouth once each week. saturday hydrALAZINE (APRESOLINE) 25 mg tablet Take 25 mg by mouth three times daily. pantoprazole DR (PROTONIX) 40 mg tablet Take 40 mg by mouth once daily. SIMVASTATIN 20 mg tablet once daily. SYNTHROID 150 mcg tablet once daily. No current facility-administered medications on file prior to visit. ALLERGIES: ALLERGIES No Known Allergies SOCIAL HISTORY Identifying Information: He is disabled and lives with spouse in [place]. Where Patient was Born: [place] Where Patient was Raised:[facility], and [place]. Marital Status: x 35 years. Time at Present Residence: about 6 years, in a house they own, ( her mother's house.) Employment: Disabled . 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 Education: High school. On the job training. Children: Son 26, no grandkids yet. Son walked out on his , in June. Hobbies: In the past, working on cars. The fatigue stops him from this now. Mu-Ism: Raised Alevism, now attends the [employer] jehovah's witness. Tobacco Use: Never smoked cigarettes ETOH: No history of abuse or dependence. He drinks nothing now. -CAGE: None. -History: No history of shakes, DTs. blackouts or seizures. -Longest period of abstinence Na -Last drink NA -AA/Rehab:NA Arrest(s): None ILLICIT SUBSTANCE USE Amphetamines: No history of use or dependence Barbiturates/Benzo: No history of use or dependence Cocaine: No history of use or dependence Opioids: No history of use or dependence Ecstasy/GHB/Ketamine: No history of use or dependence Marijuana: No history of use or dependence Gasoline/Kerosene/Glue: No history of use or dependence Hallucinogens(LSD/PCP/Peyote/Mescaline): No history of use or dependence Inhalants (schaefer,locker room,whippets): No history of use or dependence IV Drug Abuse: No history of use or dependence Steroid Use: No history of use or dependence FAMILY PSYCHIATRIC HISTORY: Sister-- recovering alcoholic, potential donor. Possibly bipolar disorder. No psychotic symptoms To his knowledge. She is on lithium. No drugs in the family. No suicide or dementia. FAMILY MEDICAL HISTORY: Father--pre-DM, 80 years old and has had heart issues with stents. Active, playing tennis and golf. Mother--Arthritis. Sister-donor, treated with medications for alcoholism and depression. Treatment program in [place]. Sister-unknown state of health, lives in [place] and they do not talk often, probably in good health. He is the oldest. MEDICAL ROS: Positive for fatigue, chills, weight loss, dizziness, nausea and weakness. COLLATERAL INFORMATION: chart. LABS: WBC (k/uL) Date Value 09/08/2018 11.66 Hematocrit (%) Date Value 09/08/2018 31.5 Platelet Count (k/uL) Date Value 09/08/2018 454 Sodium (mmol/L) Date Value 09/08/2018 131 Potassium (mmol/L) Date Value 09/08/2018 5.5 BUN (mg/dL) Date Value 09/08/2018 65 AST (U/L) Date Value 09/08/2018 13 ALT (U/L) Date Value 09/08/2018 8 Urine Toxicology: none done CT Brain: none done EKG: QTc- 455 on 09-08-18 HEALTH QUESTIONNAIRES A- PHQ - 9 = 7 How difficult have these problems made it for the patient? Not difficult at all B- LEIF - 7 = 3 How difficult have these problems made it for the patient? Not difficult at all C- Quality of Life (EQ-5D) - Mobility = 2 - Self-Care = 1 - Usual Activities = 3 - Pain / Discomfort = 2 - Anxiety / Depression = 1 MINI-MENTAL STATUS EXAMINATION: Orientation: [facility] Floor Saturday. 09/03 Registrative: Able to repeat 3 objects on the first try 3/3 Attention AND Calculation: Able to spell world backwards Unable to calculate serial 7's 5/5 Recall: Able to recall 3 objects -- 0/3 3/3 with clues. Language: Name pen/pencil (1pt) Name watch (1pt) Repeat No ifs, ands, or buts. (1pt) Follow command: [total 3pt] Take this paper in your (non- dominant) hand. (1pt), Fold it in half. (1 pt) and Put it on the floor. (1 pt) Read to self and then do: Close your eyes. (1pt) Write a sentence (subject, verb and makes sense) (1pt) Copy design (5-sided geometric figure; 2 points must intersect) (1pt) 08/03 TOTAL MMSE SCORE: 27/30 MENTAL STATUS Appearance: He is Neatly dressed, grooming and hygiene were appropriate. Alertness: Alert Orientation: Person, Place, Time and Situation Speech: Within normal limits with regard to rate, tone and volume. Demeanor: Appropriate, Relaxed Eye Contact: Good Thought-Cognitive: The patient denied a history of delusions or hallucinations; there is no evidence of formal thought disorder. Clear, coherent, and relevant speech Thought Processing: Goal directed, Organized Abstract Reasoning: Abstract reasoning was good Thought Content: The patient displays thought content appropriate to the interview. Mood: Depressed. Affect: Mood-congruent. Suicidal or Homicidal Ideation: Patient denies any suicidal or homicidal ideation, plan or intent at this time. Intelligence: Average Judgment: Appropriate Insight: Appropriate AXIS I: Major Depressive Disorder (single: mild), remission insomnia AXIS II: Deferred AXIS III: ESRD AXIS IV: Occupational stress/loss and Coping with medical condition AXIS V: GAF = 70-61 Some mild symptoms or some difficulty in social, occupational, or school functioning, but generally functioning pretty well. IMPRESSION: Mr. Mccrary is a 58 year old male presenting with history of depression, well treated with Celexa. He has had some difficulty with taking the Morning pills, but discussed with him the importance of adherence with binders, and post-transplant with immunosuppression to prevent acute and chronic rejection. He was never hospitalized for psychiatric reasons, and has no history of suicide attempts. His sister reportedly may have Bipolar disorder, so he will ask her about any psychotic symptoms, as he could be at risk of hallucinations With high dose steroids., However, he has not had this problem with steroids in the past, just a voracious appetite. He initially did not have capacity to make his own decision, as he retained little of what he was told about the success rate and risks involved. After teaching he retained little , but with reinforcement was able to be considered to have capacity. Would like to see him improve his adherence his fluid restriction, but he says he is still making urine, so Does not get into problems with fluid overload. His Potassium and PO4 are a little high, would be nice to see this Improve. Discussed with him the reasons that high PO4 can be a problem if his donors do not work out as [facility] high PO4 if waiting for several years, can result in calcification of his blood vessels, and could preclude A transplant. Discussed with him that his success with a transplant depends on adherence with immunosuppression. He voiced his understanding, and indicated that care after a transplant was more complex than he had anticipated And required more education than he thought. No issues with substance abuse, tobacco or alcohol. Social supports are excellent. Referred him to [facility] and FB transplant page and chat. In summary there are no major psychiatric contraindications to listing for transplantation at this time, but he has to nail down his caregivers, but if his is not his donor, she will be his major caregiver. The patient was seen face to face for one hour and 30 minutes for assessment, chart was reviewed and Rating scales scored. He has my card. Lorena Marroquin MD,[facility] Pager [phone] November 26, 2018 2:26 PM Referring Provider: ANJEL OLSON [[id number]] Allergies As of Date: 11/26/2018 (No Known Allergies) Date Reviewed: 11/26/2018 Reviewed by: Lorena Marroquin - Fully Assessed Primary Visit Diagnosis:Mild recurrent major depression (HCC) [F33.0] Other Visit Diagnosis:Insomnia, unspecified type [G47.00] Prescriptions as of 11/26/2018 Sig: AMLODIPINE 10 MG TABLET Take 10 mg by mouth once marlo* VITAMIN B COMPLEX-VITAMIN C-F* Take 0.8 mg by mouth daily wi* CALCIUM ACETATE 667 MG (169 M* Take 2 tablets by mouth three* CITALOPRAM 40 MG TABLET Take 40 mg by mouth once marlo* ERGOCALCIFEROL (VITAMIN D2) 5* Take 50,000 Units by mouth on* HYDRALAZINE 25 MG TABLET Take 25 mg by mouth three mynor* PANTOPRAZOLE 40 MG TABLET,DEL* Take 40 mg by mouth once marlo* SIMVASTATIN 20 MG TABLET once daily. SYNTHROID 150 MCG TABLET once daily. Problem List As Of Date 11/26/2018 Noted Resolved Umbilical hernia without mention of obstruction*INVALID FOR* Melena [K92.1] INVALID FOR* Acute blood loss anemia [D62] INVALID FOR* ESRD (end stage renal disease) (HCC) [N18.6] INVALID FOR* DM (diabetes mellitus), type 1 with neurologica*INVALID FOR*09/03/2018 Essential hypertension [I10] INVALID FOR* Blood loss anemia [D50.0] INVALID FOR* More... Hypothyroidism [E03.9] INVALID FOR* Hypoxia [R09.02] INVALID FOR*08/06/2018 Positive fecal occult blood test [R19.5] INVALID FOR* Controlled type 2 diabetes mellitus without com*INVALID FOR* Encounter Status:Closed by LORENA MARROQUIN MD on 11/26/18 SURGERY VISIT REPORT Observed: 11/17/2018 Status: F Source: [place] 10:04 AM [facility] [place] [facility] [address] [place] [address] OFFICE VISIT Date of Service: 10/27/18 MR#: [id number] Acct: [id number] Name: ROBERT MCCRARY Rep #: [id number] : 1960 Provider: Pedro Walker MD Age/Sex: 58/M Location: [facility] Status: Signed Intake Vital Signs10/27/18 Body Mass Index (BMI) 29.2 Intake Visit Reasons: Check Fistula Site per Patient Chief Complaint: recheck fistula--aneurysm 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 Is patient in pain?: No Allergies epoetin beta [From Mircera] Adverse Reaction (Verified 10/27/18 14:00) back pain Medications Levothyroxine [Synthroid] 150 mcg PO QHS 10/28/15 [History Confirmed 10/27/18] Simvastatin [Zocor] 20 mg PO QHS 10/28/15 [History Confirmed 10/27/18] Citalopram Hydrobromide [Citalopram HBr] 40 mg PO QHS 01/03/18 [History Confirmed 10/27/18] Ergocalciferol [Vitamin D] 50,000 unit PO WE 01/21/18 [History Confirmed 10/27/18] Amlodipine [Norvasc] 10 mg PO QHS 05/08/18 [History Confirmed 10/27/18] hydrALAZINE [Apresoline] 25 mg PO TID 05/08/18 [History Confirmed 10/27/18] Calcium Acetate 2 cap PO TIDCM 08/01/18 [History Confirmed 10/27/18] Pantoprazole Sodium [Protonix] 40 mg PO DAILY 08/01/18 [History Confirmed 10/27/18] Yoko-Anna 0.8 mg PO QHS 08/01/18 [History Confirmed 10/27/18] [facility] Medical History Problem with dialysis access (Acute) Enteritis (Acute) Lymphadenopathy (Chronic) Chronic renal insufficiency, stage V (Acute) ELMO (acute kidney injury) (Acute) Hyperkalemia (Acute) Hyperlipidemia (Chronic) Hypothyroidism (Chronic) Hypertension (Chronic) Type II diabetes mellitus (Chronic) Community acquired pneumonia (Acute) Surgical History H/O hernia repair (Acute) Presence of surgically created arteriovenous shunt for hemodialysis (Acute) S/P nasal surgery (Acute) Family History Father No problems noted. Social History Smoking Status: Never smoker alcohol intake: never HPI HPI HPI: ROBERT MCCRARY, is a 58 M who presents to the office today for ongoing problems with hemodialysis access. 58-year-old gentleman. Type I diabetic. May 15, 2018 I created left forearm radiocephalic arteriovenous fistula for him. He had tunneled dialysis catheters in place which subsequently have been removed. He is recently been dialyzed via his left forearm radiocephalic AV fistula. September 01, 2018 I performed a fistulogram with a 5 x 80 mm ever cross angioplasty of the proximal portion of the fistula. The patient states over the past week he has developed a aneurysmal bump in the mid fistula. He additionally states that the proximal portion of the fistula closer to the wrist seems very difficult for them to access. ROS General General: Yes weight change, appetite and fatigue; no colon cancer, breast cancer or weakness HEENT HEENT: No difficulty swallowing, eye injury, eye surgery, swollen glands or hoarseness Endo Endocrine: Yes thyroid disease and diabetes mellitus; no thyroid cancer, Hair loss, heat intolerance or cold intolerance Musc Musculoskeletal: No back problems, arthritis, rheumatoid arthritis, gout or joint pain Cardio Cardiovascular: Yes high blood pressure; no murmur, pacemaker, heart disease, atrial fibrillation, heart attack, heart stent, palpitations, shortness of breat with exertion or chest pain Psych Psychiatric: Yes depression; no anxiety or hearing voices Resp Respiratory: No shortness of breath, No sleep apnea, No cough, No COPD, No asthma, No emphysema, No wheezing Gastro Gastrointestinal: Yes abdominal pain, Yes nausea or vomiting, Yes diarrhea, No constipation, No blood in stool, No acid reflux, No hemorrhoids, No ulcers, Yes gallbladder problem, No black,tarry stools Adrian Hematologic: No blood thinners, No blood disorders, No bleeding, No anemia, No blood clots Neuro Neurologic: No weakness Exam Const General: cooperative, healthy appearing, comfortable Nutritional Appearance: average body habitus Orientation: alert, awake, oriented x3 HENMT Head: normal to inspection Resp Effort AND Inspection: normal respiratory effort Auscultation: clear to auscultation bilaterally Cardio Rate: regular rate Rhythm: regular rhythm Heart Sounds: no murmurs GI Palpation: soft Extrem Other: Left forearm radiocephalic AV fistula. The anastomosis appears to be patent. The proximal portion of the fistula appears patent albeit slightly diminutive. In the mid fistula there is a slightly tender 2 cm pseudoaneurysm with a defect identified on ultrasound. The more proximal portion of the fistula appears patent up to the antecubital space. The main outflow channel appears to be to the mid antecubital space and then via the basilic vein. The patient does have a more lateral forearm branch of the cephalic vein which appears patent and compressible. Psych Affect: normal affect Assessment AND Plan Problems 1. Problem with dialysis access, subsequent encounter T82.898D Plan - Pedro Walker MD 58-year-old gentleman who has a left forearm radiocephalic AV fistula. There appears to be 2 separate issues. The more proximal portion of the fistula appears to be relatively narrowed making access inconsistent and challenging. In the mid fistula there now is a pseudoaneurysm which is mildly tender. There otherwise appears to be good proximal forearm outflow within majority of flow via the basilic vein of the upper arm. Although I can perform an angioplasty to treat the relative stenosis of the proximal portion of the fistula I do have concerns that the pseudoaneurysm appeared a week ago and according to the patient is mildly tender. He has concerns about possible hemorrhage. Upon reviewing his forearm he appears to have an adequate cephalic vein outflow branch and the more radial mid to proximal forearm. I have proposed for him consideration of a jump graft around the area of stenosis and aneurysmal change. This would keep the fistula in his forearm. Because of the requirement for maturation he would again require right internal jugular tunneled dialysis catheters be replaced. The patient is otherwise young and may be on hemodialysis for an extended period of time. I believe that attempts at maintaining access in his forearm is of value. Without in mind I propose for him harvesting his cephalic vein from the left forearm and then utilizing it is a jump graft from the radial artery to the mid to more proximal forearm vein outflow to the current fistula therefore ligating the proximal midportion of the current fistula resolving the area of proximal fistula stenosis and the area of pseudoaneurysmal change in the mid portion of the fistula. He would need right IJ tunneled dialysis catheters. He is aware that this will require a period of maturation. CC: Dr. Vannessa Walker M.D., F.A.C.S. Pedro Walker M.D., F.A.C.S. Coding Level of Care Code Off vis,est,level 3 Diagnoses Problem with dialysis access, subsequent encounter T82.898D Encounter type: subsequent encounter 11/17/18 1004 <Electronically signed by Tamera Gimenez PA-C> Date Tamera Gimenez PA-C 10/27/18 1631<Electronically signed by Pedro Walekr MD> Cosigner Signature: Date (if applicable) Pedro Walker MD CC: Vannessa Blakely DO OPERATIVE REPORT Observed: 11/07/2018 Status: F Source: [place] 5:07 PM [facility] [place] [facility] Medical Records Department [address] [place] [address] Operative Report 11/06/18 1341 MR#: [id number] Acct: [id number] Name: ROBERT MCCRARY Rep #: [id number] : 1960 58 From: Pedro Walker MD PCP: Abran Reveles MD Status: [place] [facility] [place] [facility] [place] List (1) Problem with dialysis access Status: Acute Qualifiers: Encounter type: subsequent encounter Qualified Code(s): T82.898D - Other specified complication of vascular prosthetic devices, implants and grafts, subsequent encounter Report of Operation Date of Procedure: 11/06/18 Pre-Operative Diagnosis: Thrombosis left forearm radiocephalic arteriovenous fistula Post-Operative Diagnosis: Same Surgery/Procedure Performed:: Stage I left upper extremity antecubital brachial basilic arteriovenous fistula creation Description of Surgical Findings:: Timeout and informed consent was obtained. 58-year-old gent was taken down from placement table underwent general anesthesia the left extremity sterilely prepped draped 1% lidocaine mixed 50-50 with 0.5% Marcaine was used as a local anesthetic. A total of 7 cc was used. Local was instilled. An oblique incision was made the right antecubital space sharp and blunt dissection was used to identify the basilic vein small venotomy was secured with interrupted 7-0 Prolene. Circulation control is seen in the brachial artery. The patient received 8000 units of heparin. After adequate stripping time the vein was ligated distally with a Hemoclip and then was spatulated 11 blade was used to make an arteriotomy was extended with Jacobs scissors a end-to-side anastomosis was created with a running 7-0 Prolene. At completion a single repair suture of 7-0 Prolene was required. It is of note that where the vein was anastomosed the media after that the basilic vein branches into 2 major branches. There was a good pulse thrill and bruit within the fistula. Surgicel was used to assist with hemostasis. The patient received 20 mg of protamine. The wound was closed with a deep layer of interrupted 3-0 Vicryl and then running septic or 4-0 Monocryl. Steri- Strips Telfa and OpSite dressings applied. The hand was viable with a 3+ radial pulse. No apparent complications. Specimens none. Drains none. Blood loss minimal. Successful creation left extremity stage I brachiobasilic AV fistula Pedro Walker M.D., F.A.C.S. Type of Anesthesia:: General Anesthesiologist: Candi Evangelista 11/07/18 3162 <Electronically signed by Pedro Walker MD> Date Pedro Walker MD CC: Abran Reveles MD; Pedro Walker MD Signed DISCHARGE INSTRUCTION Observed: 11/07/2018 Status: F Source: [place] 5:07 PM [facility] Medical Records Department [address] [place] [address] Instructions for Home/Discharge Instructions 11/06/18 1341 MR#: [id number] Acct: [id number] Name: ROBERT MCCRARY Rep #: [id number] : 1960 58 From: Pedro Walker MD PCP: Abran Reveles MD Status: DEP [facility] Discharge Diet: Renal Diet Discharge Activity: May Not Drive - for 2-3 days or while taking narcotic pain medications., May Shower, May Take a Tub Bath - in 5 days. Lifting Restrictions: 5 pounds Keep extremity elevated above heart level: - - Keep arm elevated above the heart level for 3 days. Additional Activity Instructions:: Exercise hand vigorously with a stress ball. Call your doctor if your incision/area has: Continuous Slow Oozing, Sudden Increased Bleeding - apply pressure and call your doctor., Increased Pain/ Swelling, Increased Redness, Foul Smelling Discharge Call your doctor if you observe: Fever of 101 or Higher Suture Line Care: Avoid Pulling/Pushing, Avoid Pinching/Bending Cleanse incision/area with: Keep Dressing Clean AND Dry Additional Dressing/Incision Instructions:: Change or remove dressing in one day. May protect with a gauze bandaid. Allergies/Adverse Reactions: Allergies epoetin beta [From Mircera] Adverse Reaction (Verified 11/05/18 10:24) back pain Medications to take at Discharge Levothyroxine [Synthroid] 150 mcg PO QHS 10/28/15 Simvastatin [Zocor] 20 mg PO QHS 10/28/15 Citalopram Hydrobromide [Citalopram HBr] 40 mg PO QHS 01/03/18 Ergocalciferol [Vitamin D] 50,000 unit PO WE 01/21/18 Amlodipine [Norvasc] 10 mg PO QHS 05/08/18 hydrALAZINE [Apresoline] 25 mg PO TID 05/08/18 Calcium Acetate 2 cap PO TIDCM 08/01/18 Yoko-Anna 0.8 mg PO QHS 08/01/18 Primary Care Physician: Abran Reveles MD [Primary Care Provider] - Test Results: Test results from this visit will be discussed in further detail at your follow-up appointment, if applicable. Please Follow Up With: Pedro Walker MD - [phone] When: Call to make an appointment for suture removal and follow up in 1 week. 11/07/18 1707 <Electronically signed by Pedro Walker MD> Date Pedro Walker MD CC: Abran Reveles MD BEDSIDE GLUCOSE Collected: 11/06/2018 Status: F Source: [place] 10:26 AM [facility] [place] [facility] TYPE CODE TESTS RESULT OUT OF RANGE REFERENCE UNITS LAB L501.080 70-110 mg/dL Normal BEDSIDE GLU 77 Result Comment: MANAGEMENT OF PATIENT CARE PER NURSING PROTOCOL Performed By: #### L501.080 #### [facility] Laboratory Point of Care [facility] [place] [address] SURGERY VISIT REPORT Observed: 11/03/2018 Status: F Source: [place] 4:45 PM [facility] [address] [place] [address]. [address] [place] [address] OFFICE VISIT Date of Service: 11/03/18 MR#: [id number] Acct: [id number] Name: ROBERT MCCRARY Rep #: [id number] : 1960 Provider: Pedro Walker MD Age/Sex: 58/M Location: [facility] Status: Signed Intake Intake Visit Reasons: POST OP 10/31/18 Chief Complaint: recheck fistula--aneurysm 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 Is patient in pain?: No Allergies epoetin beta [From Mircera] Adverse Reaction (Verified 11/03/18 14:00) back pain Medications Levothyroxine [Synthroid] 150 mcg PO QHS 10/28/15 [History Confirmed 10/31/18] Simvastatin [Zocor] 20 mg PO QHS 10/28/15 [History Confirmed 10/31/18] Citalopram Hydrobromide [Citalopram HBr] 40 mg PO QHS 01/03/18 [History Confirmed 10/31/18] Ergocalciferol [Vitamin D] 50,000 unit PO WE 01/21/18 [History Confirmed 10/31/18] Amlodipine [Norvasc] 10 mg PO QHS 05/08/18 [History Confirmed 10/31/18] hydrALAZINE [Apresoline] 25 mg PO TID 05/08/18 [History Confirmed 10/31/18] Calcium Acetate 2 cap PO TIDCM 08/01/18 [History Confirmed 10/31/18] Yoko-Anna 0.8 mg PO QHS 08/01/18 [History Confirmed 10/31/18] Subjective Details: 58-year-old gentleman. I have been working very diligently in attempt to obtain arteriovenous hemodialysis access for dialysis access. I performed a left forearm radiocephalic arteriovenous fistula creation. I then had to perform angioplasty of long segment stenosis of the proximal 10 cm of the fistula. Most recently on October 31, 2018 because of a new onset of a pseudoaneurysm in addition to recurrent stricturing I had planned a autologous vein harvested bypass. Unfortunately technically that procedure was very dissatisfying due to the small nature of the vein. Did not feel that that was going to be successful and asked the patient to return today. His previous history is as follows. MR#:[id number]:[id number] Name: ROBERT MCCRARY [facility] #:[id number] : 1960 Provider:Pedro aWlker MD Age/Sex: 58/M [place] Status:ISigned Intake Vital Signs 10/27/18 Body Mass Index (BMI) 29.2 Intake Visit Reasons: Check Fistula Site per Patient Chief Complaint: recheck fistula--aneurysm 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 Is patient in pain?: No Allergies epoetin beta [From Mircera] Adverse Reaction (Verified 10/27/18 14:00) back pain Medications Levothyroxine [Synthroid] 150 mcg PO QHS 10/28/15 [History Confirmed 10/27/18] Simvastatin [Zocor] 20 mg PO QHS 10/28/15 [History Confirmed 10/27/18] Citalopram Hydrobromide [Citalopram HBr] 40 mg PO QHS 01/03/18 [History Confirmed 10/27/18] Ergocalciferol [Vitamin D] 50,000 unit PO WE 01/21/18 [History Confirmed 10/27/18] Amlodipine [Norvasc] 10 mg PO QHS 05/08/18 [History Confirmed 10/27/18] hydrALAZINE [Apresoline] 25 mg PO TID 05/08/18 [History Confirmed 10/27/18] Calcium Acetate 2 cap PO TIDCM 08/01/18 [History Confirmed 10/27/18] Pantoprazole Sodium [Protonix] 40 mg PO DAILY 08/01/18 [History Confirmed 10/27/18] Yoko-Anna 0.8 mg PO QHS 08/01/18 [History Confirmed 10/27/18] [facility] Medical History Problem with dialysis access (Acute) Enteritis (Acute) Lymphadenopathy (Chronic) Chronic renal insufficiency, stage V (Acute) ELMO (acute kidney injury) (Acute) Hyperkalemia (Acute) Hyperlipidemia (Chronic) Hypothyroidism (Chronic) Hypertension (Chronic) Type II diabetes mellitus (Chronic) Community acquired pneumonia (Acute) Surgical History H/O hernia repair (Acute) Presence of surgically created arteriovenous shunt for hemodialysis (Acute) S/P nasal surgery (Acute) Family History Father No problems noted. Social History Smoking Status: Never smoker alcohol intake: never HPI HPI HPI: ROBERT MCCRARY, is a 58 M who presents to the office today for ongoing problems with hemodialysis access. 58-year-old gentleman. Type I diabetic. May 15, 2018 I created left forearm radiocephalic arteriovenous fistula for him. He had tunneled dialysis catheters in place which subsequently have been removed. He is recently been dialyzed via his left forearm radiocephalic AV fistula. September 01, 2018 I performed a fistulogram with a 5 x 80 mm ever cross angioplasty of the proximal portion of the fistula. The patient states over the past week he has developed a aneurysmal bump in the mid fistula. He additionally states that the proximal portion of the fistula closer to the wrist seems very difficult for them to access. ROS General General: Yes weight change, appetite and fatigue; no colon cancer, breast cancer or weakness HEENT HEENT: No difficulty swallowing, eye injury, eye surgery, swollen glands or hoarseness Endo Endocrine: Yes thyroid disease and diabetes mellitus; no thyroid cancer, Hair loss, heat intolerance or cold intolerance Musc Musculoskeletal: No back problems, arthritis, rheumatoid arthritis, gout or joint pain Cardio Cardiovascular: Yes high blood pressure; no murmur, pacemaker, heart disease, atrial fibrillation, heart attack, heart stent, palpitations, shortness of breat with exertion or chest pain Psych Psychiatric: Yes depression; no anxiety or hearing voices Resp Respiratory: No shortness of breath, No sleep apnea, No cough, No COPD, No asthma, No emphysema, No wheezing Gastro Gastrointestinal: Yes abdominal pain, Yes nausea or vomiting, Yes diarrhea, No constipation, No blood in stool, No acid reflux, No hemorrhoids, No ulcers, Yes gallbladder problem, No black,tarry stools Adrian Hematologic: No blood thinners, No blood disorders, No bleeding, No anemia, No blood clots Neuro Neurologic: No weakness Exam Const General: cooperative, healthy appearing, comfortable Nutritional Appearance: average body habitus Orientation: alert, awake, oriented x3 HENMT Head: normal to inspection Resp Effort AND Inspection: normal respiratory effort Auscultation: clear to auscultation bilaterally Cardio Rate: regular rate Rhythm: regular rhythm Heart Sounds: no murmurs GI Palpation: soft Extrem Other: Left forearm radiocephalic AV fistula. The anastomosis appears to be patent. The proximal portion of the fistula appears patent albeit slightly diminutive. In the mid fistula there is a slightly tender 2 cm pseudoaneurysm with a defect identified on ultrasound. The more proximal portion of the fistula appears patent up to the antecubital space. The main outflow channel appears to be to the mid antecubital space and then via the basilic vein. The patient does have a more lateral forearm branch of the cephalic vein which appears patent and compressible. Psych Affect: normal affect Assessment AND Plan Problems 1. Problem with dialysis access, subsequent encounter T82.898D Plan - Pedro Walker MD 58-year-old gentleman who has a left forearm radiocephalic AV fistula. There appears to be 2 separate issues. The more proximal portion of the fistula appears to be relatively narrowed making access inconsistent and challenging. In the mid fistula there now is a pseudoaneurysm which is mildly tender. There otherwise appears to be good proximal forearm outflow within majority of flow via the basilic vein of the upper arm. Although I can perform an angioplasty to treat the relative stenosis of the proximal portion of the fistula I do have concerns that the pseudoaneurysm appeared a week ago and according to the patient is mildly tender. He has concerns about possible hemorrhage. Upon reviewing his forearm he appears to have an adequate cephalic vein outflow branch and the more radial mid to proximal forearm. I have proposed for him consideration of a jump graft around the area of stenosis and aneurysmal change. This would keep the fistula in his forearm. Because of the requirement for maturation he would again require right internal jugular tunneled dialysis catheters be replaced. The patient is otherwise young and may be on hemodialysis for an extended period of time. I believe that attempts at maintaining access in his forearm is of value. Without in mind I propose for him harvesting his cephalic vein from the left forearm and then utilizing it is a jump graft from the radial artery to the mid to more proximal forearm vein outflow to the current fistula therefore ligating the proximal midportion of the current fistula resolving the area of proximal fistula stenosis and the area of pseudoaneurysmal change in the mid portion of the fistula. He would need right IJ tunneled dialysis catheters. He is aware that this will require a period of maturation. CC: Dr. Vannessa Walker M.D., F.A.C.S. Objective Details: Left forearm has a clean vein harvest incision. The separate radial artery incisions and pain Incisions also are well-healed. The bypass graft however is essentially nonfunctioning. The pseudoaneurysm is decompressed today Assessment AND Plan Problems 1. Problem with dialysis access, subsequent encounter T82.368A Plan Ongoing problems with dialysis access. He is current being dialyzed via tunneled right internal jugular dialysis catheters placed on October 31, 2018. Although in August 2018 fistulogram suggested that the left upper arm cephalic vein is adequate on ultrasound inspection today that the vein appears to be small and thick- walled. The left upper arm basilic vein appears to be the much more dominant vessel 58-year-old gentleman who will be traveling in 1 week to [facility] to be considered for a renal transplant. My task is continue to work diligently in an attempt to obtain dialysis access. I no longer feel that I can get a forearm fistula functioning. The forearm cephalic vein initially appeared to be adequate but then strictured badly. I believe that the left upper arm basilic vein will be his likely best option. I propose for him a left upper arm stage I basilic vein to brachial artery AV fistula creation. The patient is very much interested in pursuing this in a timely fashion so that he can limit the amount of time that he has the tunneled dialysis catheters. I would concur and we will schedule as soon as OR timing permits. Pedro Walker M.D., F.A.C.S. CC: Dr. Vannessa Blakely Coding Level of Care Code Global Post Op Diagnoses Problem with dialysis access, subsequent encounter T82.898A Encounter type: subsequent encounter 11/03/18 1645 <Electronically signed by Pedro Walker MD> Date Pedro Walker MD Cosigner Signature: Date (if applicable) CC: Vannessa Blakely DO EMERGENCY DEPARTMENT Observed: 11/02/2018 Status: F Source: [place] SUMMARY 2:27 PM [facility] Medical Records Department [address] [place] [address] Emergency Department Summary 11/02/18 1426 MR#: [id number] Acct: [id number] Name: ROBERT MCCRARY Rep #: [id number] : 1960 58 From: Jonathan Gordon MD PCP: Abran Reveles MD Status: PRE ER - ER Visit Summary Date of Service: 11/02/18 Chief Complaint: Bleeding from dialysis catheter History of Present Illness: The patient is a 58 M who has bleeding from his Vas-Cath. He itched near this in his right upper chest and then he had some blood. He denies taking any blood thinning medications. He had a new fistula placed this week and had the Vas-Cath placed so he can have dialysis on Saturday and Saturday Physical Examination: Vital signs reviewed. Right upper chest reveals a Vas-Cath that is in place. There is some dried blood around it. When I remove the bandage there is some fresh blood on the lateral side. There is no active bleeding at this time. Test Results: None performed Emergency Department Course and Treatment: Patient had his dressing changed and there is no active bleeding at this time. Patient will follow up on Saturday for his dialysis. Treatment Plan: [] Disposition: Discharge Impression: Bleeding from dialysis catheter This note was generated with Reasultation software. It may contain incorrect words, spelling, and punctuation that were not noted in review of the chart prior to signing ED Disposition - Plan for ED Patient: Chief Complaint: Wound Check Referrals: Abran Reveles MD [Primary Care Provider] - What to do if you have Problems For any increased pain, shortness of breath, bleeding, nausea or vomiting, chest pain, or any unexpected problems, contact your Primary Care Provider. Call [facility] ([phone]) or report to the closest Emergency Room. Call 911 if necessary. 11/02/181426 <Electronically signed by Jonathan Gordon MD> Date Jonathan Gordon MD Cosigner Signature (If Indicated): Date CC: Abran Reveles MD DISCHARGE INSTRUCTION Observed: 11/02/2018 Status: F Source: [place] 2:27 PM [facility] Medical Records Department [address] [place] [address] Discharge Instruction 11/02/181426 MR#: [id number] Acct: [id number] Name: ROBERT MCCRARY Rep #: [id number] : 1960 58 From: Jonathan Gordon MD PCP: Abran Reveles MD Status: PRE ER ED Disposition - Plan for ED Patient: Disposition: Home or Assisted Living Chief Complaint: Wound Check Instructions: ED Wound Check Post Op Bleeding Referrals: Abran Reveles MD [Primary Care Provider] - What to do if you have Problems For any increased pain, shortness of breath, bleeding, nausea or vomiting, chest pain, or any unexpected problems, contact your Primary Care Provider. Call [facility] ([phone]) or report to the closest Emergency Room. Call 911 if necessary. 11/02/18 1427 <Electronically signed by Jonathan Gordon MD> Date Jonathan Gordon MD Cosigner Signature (If Indicated): Date CC: Abran Reveles MD DISCHARGE INSTRUCTION Observed: 10/31/2018 Status: F Source: [place] 5:37 PM [facility] Medical Records Department [address] [place] [address] Instructions for Home/Discharge Instructions 10/31/18 1022 MR#: [id number] Acct: [id number] Name: ROBERT MCCRARY Rep #: [id number] : 1960 58 From: Pedro Walker MD PCP: Abran Reveles MD [place] [facility] [place] Diet: Renal Diet Discharge Activity: May Not Shower Lifting Restrictions: 10 pounds Additional Dressing/Incision Instructions:: Right internal jugular tunneled dialysis catheter dressing changes per the dialysis center. Elevate your left arm for comfort. Exercise her left hand with a stress ball. You may remove your left arm dressings in 2 days. You may redress them with gauze and tape as needed to protect from clothing. You may shower over the left arm in 5 days. The right chest site needs to stay clean and dry Allergies/Adverse Reactions: Allergies epoetin beta [From Mircera] Adverse Reaction (Verified 10/31/18 08:37) back pain Medications to take at Discharge Levothyroxine [Synthroid] 150 mcg PO QHS 10/28/15 Simvastatin [Zocor] 20 mg PO QHS 10/28/15 Citalopram Hydrobromide [Citalopram HBr] 40 mg PO QHS 01/03/18 Ergocalciferol [Vitamin D] 50,000 unit PO WE 01/21/18 Amlodipine [Norvasc] 10 mg PO QHS 05/08/18 hydrALAZINE [Apresoline] 25 mg PO TID 05/08/18 Calcium Acetate 2 cap PO TIDCM 08/01/18 Yoko-Anna 0.8 mg PO QHS 08/01/18 Primary Care Physician: Abran Reveles MD [Primary Care Provider] - Test Results: Test results from this visit will be discussed in further detail at your follow-up appointment, if applicable. Please Follow Up With: Pedro Walker MD - [phone] When: Call to make an appointment to be seen in about 10 days. 10/31/18 1737 <Electronically signed by Pedro Walker MD> Date Pedro Walker MD CC: Abran Reveles MD OPERATIVE REPORT Observed: 10/31/2018 Status: F Source: [place] 5:37 PM [facility] Medical Records Department [address] [place] [address] Operative Report 10/31/18 1322 MR#: [id number] Acct: [id number] Name: ROBERT MCCRARY Rep #: [id number] : 1960 58 From: Pedro Walker MD PCP: Abran Reveles MD Status: [facility] [place] [facility] Problem List (1) Problem with dialysis access Status: Acute Qualifiers: Encounter type: subsequent encounter Report of Operation Date of Procedure: 10/31/18 Pre-Operative Diagnosis: Problem with left forearm radiocephalic acute fistula access with stenosis and pseudoaneurysm Post-Operative Diagnosis: Same Surgery/Procedure Performed:: Right internal jugular tunneled double lumen palindrome catheter. Creation left forearm radial to cephalic arteriovenous fistula with autologous harvested cephalic vein graft Description of Surgical Findings:: Informed consent was obtained. 8-year-old gent with a Room. He had 2 g of Ancef. He underwent monitored anesthesia care local anesthetic. The right neck was sterilely prepped and draped as was the chest. Under ultrasound guidance 1% lidocaine mixed 50-50 with 0.5% Marcaine was used for anesthetic. Local was used to identify the right internal jugular vein micropunch needle inserted micropuncture wire inserted micropuncture sheath inserted 035 J-wire was inserted fluoroscopy demonstrated good positioning local was instilled down upon the chest wall exit site was selected the 19 cm pre-curved Palladone catheter was tunneled from the chest to the neck. Reference #[id number] AP with a lot #[id number] and expiry date of 12/28/2022 The sheath over the wire the dilators were placed in the sheath was inserted in the water remove the catheter advanced through the sheath the sheath was split the catheter was positioned at the SVC atrial junction the counterincision was closed with interrupted 5-0 Vicryl subdermal stitch the catheter secured to skin with 3-0 nylon it was aspirated aspirated easily was flushed with saline and heparinized saline for a channel sterile dressings applied Attention was drawn to the left forearm which was sterilely prepped draped. I use ultrasound the cephalic vein side branch had 0.5% lidocaine used as local anesthetic and then throughout the procedure LC 0.25% Marcaine. Longitudinal incision was made over that side branch cephalic vein it appeared to be adequate I dissected it free for a length of about 12 cm was ligated proximally distally the vein was then irrigated appear to have a nice diameter. I then made an incision distal to the pseudoaneurysm portion of the current fistula dissected around that cephalic vein in that location dissected that free I then made a longitudinal incision over the radial artery in an appropriate position but sharp and blunt dissection which was now in about the mid forearm I cannot i.e. is identified the radial artery so that I had to go back down to the wrist where the previous anastomosis was fine the cephalic vein close to the arterial anastomosis dissected around that. The patient now had the harvested autologous vein tunneled from the wrist to the proximal forearm. Patient received 8000 units of heparin and then received additional thousand units heparin during the procedure. The proximal graft was amputated and then a the vein graft was heart spatulated and then the end-to-end anastomosis created with running 7-0 Prolene. There appeared to be good inflow good position applied. I then did a end-to-side anastomosis to the cephalic vein in the proximal forearm with the same kind of running 7-0 Prolene by placing peripheral vascular clamps and making a longitudinal arteriotomy which extended with Jacobs scissors. At the completion there appeared to be adequate flow the the portion of autologous vein was somewhat smaller than the in situ vein. However felt that I had excluded the pseudoaneurysm excluded the area of stenosis in the proximal portion of the fistula. It is of note however that this procedure was very challenging and a portion of autologous vein used for the bypass ended up being smaller than anticipated. Sponge instrument and needle counts reported as correct blood loss was 200 cc entire procedure well hand was viable he was taken to the recovery intact condition stat portable chest x-ray is pending. Specimens none drains none blood loss 200 cc Pedro Walker M.D., F.A.C.S. Type of Anesthesia:: Local MAC Anesthesiologist: Rodger Hall 10/31/18 1737 <Electronically signed by Pedro Walker MD> Date Pedro Walker MD CC: Abran Reveles MD; Pedro Walker MD Signed CHEST 1 VIEW Observed: 10/31/2018 Status: F Source: [place] (PORTABLE) 10:22 AM [facility] Imaging Services [address] [place] [address] Chest 1 View (Portable) MR#: [id number] Acct: [id number] Name: ROBERT MCCRARY Rep #: [id number] : 1960 M 58 From: Godwin Palmer MD PCP: Abran Reveles MD Status: [facility] Study: Chest 1 View (Portable) Date of Exam: 10/31/18 Exam# [id number] Ordering Dr: Pedro Walker MD STUDY: X-RAY CHEST REASON FOR EXAM: Male, 58 years old. Right hemodialysis catheter placement. TECHNIQUE: Single AP portable view of the chest. COMPARISON: Comparison is made with prior study dated August 10, 2018. FINDINGS: A right-sided double lumen catheter has been inserted. The tip is in the proximal portion of the superior vena cava. The lungs are clear and expanded. There is no demonstrated pleural abnormality. Normal size heart. Normal mediastinum and kieran. Normal visualized pulmonary arteries. Normal visualized aortic arch and descending thoracic aorta. Normal visualized thoracic spine. Normal visualized ribs, clavicles, and shoulders. There is no demonstrated abnormality of the visualized soft tissue structures of the upper abdomen. RAD/Chest 1 View (Portable) IMPRESSION: The tip of the right double lumen catheter is in the proximal portion of the superior vena cava. Electronically Signed: Godwin Palmer MD at 14:48 EST Tel [phone], Service support , CC: Abran Reveles MD; Pedro Walker MD Manager Mountain: Signed BEDSIDE GLUCOSE Collected: 10/31/2018 Status: F Source: [place] 8:30 AM [facility] TYPE CODE TESTS RESULT OUT OF RANGE REFERENCE UNITS LAB L501.080 70-110 mg/dL Normal BEDSIDE GLU 89 Result Comment: MANAGEMENT OF PATIENT CARE PER NURSING PROTOCOL Performed By: #### L501.080 #### [facility] Point of Care [facility] [address] [place], [place] [address] CBC-COMPLETE BLOOD CNT Collected: 10/30/2018 Status: F Source: [place] NO DIFF 2:37 PM [facility] TYPE CODE TESTS RESULT OUT OF RANGE REFERENCE UNITS LAB L100.1000 4.4-11.0 K/mm3 Normal WBC 9.3 LAB L100.1200 4.6-6.2 M/mm3 Low RBC 3.62 LAB L100.1300 13.0-16.5 g/dl Low HGB 9.4 LAB L100.1400 40-54 % Low HCT 32.7 LAB L100.1500 80-94 fL Normal MCV 90.3 LAB L100.1600 27.0-32.0 pg Low MCH 26.0 LAB L100.1700 32-36 g/gl Low MCHC 28.7 LAB L100.1810 11.6-14.6 % High RDW CV 17.0 LAB L100.1820 35.1-43.9 fl High RDW SD 55.4 LAB L100.1900 150-450 K/mm3 Normal PLT 286 LAB L100.2000 6.2-12.0 fl Normal MPV 8.8 Performed By: #### L100.0500 #### [facility] [address] [place], [place], [address] BASIC METABOLIC Collected: 10/30/2018 Status: F Source: [place] PROFILE (BMP) 2:37 PM [facility] TYPE CODE TESTS RESULT OUT OF RANGE REFERENCE UNITS LAB L501.0100 74-106 mg/dL High GLU 129 Result Comment: Fasting Glucose result greater than or equal to 126 mg/dL suggests DIABETES MELLITUS per A.D.A. criteria. Please note revised GLUCOSE reference range effective 2017. LAB L501.1000 7-18 mg/dL High BUN 21 LAB L501.1100 0.70-1.30 mg/dL High CREAT,SERUM 4.46 Result Comment: The validity of the calculated GFR AND GFRAA in patients over 70 years has not been determined. Clinical correlation is essential. LAB L501.1110 >60 mL/min Low EST GFR 15 Result Comment: Non- GFR Calc LAB L501.1115 >60 mL/min Low EST GFR - AA 18 Result Comment: GFR Calc LAB L501.1300 10-20 RATIO Low BUN/CRE 4.7 LAB L501.2200 8.5-10.1 mg/dL Normal CA 9.1 LAB L501.5300 136-145 mmol/L Normal NA 139 LAB L501.5600 3.5-5.1 mmol/L Normal K 4.2 LAB L501.5900 98-107 mmol/L Normal CL 98 LAB L501.6100 21.0-32.0 mmol/L High CO2 35.0 LAB L501.6200 5-15 Normal GAP 6 Performed By: #### L500.2500 #### [facility] [address] [place], [address] SURGERY VISIT REPORT Observed: 10/29/2018 Status: F Source: [place] 4:37 PM [facility] [address] [place] [address] OFFICE VISIT Date of Service: 10/29/18 MR#: [id number] Acct: [id number] Name: ROBERT MCCRARY Rep #: [id number] : 1960 Provider: Pedro Walker MD Age/Sex: 58/M Location: [facility] Status: Signed Intake Vital Signs10/29/18 Body Mass Index (BMI) 29.2 Intake Visit Reasons: Discuss planned SX Chief Complaint: recheck fistula--aneurysm 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 Accompanied by: None Allergies epoetin beta [From Mircera] Adverse Reaction (Verified 10/27/18 14:00) back pain Medications Levothyroxine [Synthroid] 150 mcg PO QHS 10/28/15 [History Confirmed 10/27/18] Simvastatin [Zocor] 20 mg PO QHS 10/28/15 [History Confirmed 10/27/18] Citalopram Hydrobromide [Citalopram HBr] 40 mg PO QHS 01/03/18 [History Confirmed 10/27/18] Ergocalciferol [Vitamin D] 50,000 unit PO WE 01/21/18 [History Confirmed 10/27/18] Amlodipine [Norvasc] 10 mg PO QHS 05/08/18 [History Confirmed 10/27/18] hydrALAZINE [Apresoline] 25 mg PO TID 05/08/18 [History Confirmed 10/27/18] Calcium Acetate 2 cap PO TIDCM 08/01/18 [History Confirmed 10/27/18] Pantoprazole Sodium [Protonix] 40 mg PO DAILY 08/01/18 [History Confirmed 10/27/18] Yoko-Anna 0.8 mg PO QHS 08/01/18 [History Confirmed 10/27/18] [facility] Medical History Problem with dialysis access (Acute) Enteritis (Acute) Lymphadenopathy (Chronic) Chronic renal insufficiency, stage V (Acute) ELMO (acute kidney injury) (Acute) Hyperkalemia (Acute) Hyperlipidemia (Chronic) Hypothyroidism (Chronic) Hypertension (Chronic) Type II diabetes mellitus (Chronic) Community acquired pneumonia (Acute) Surgical History H/O hernia repair (Acute) Presence of surgically created arteriovenous shunt for hemodialysis (Acute) S/P nasal surgery (Acute) Family History Father No problems noted. Social History Smoking Status: Never smoker alcohol intake: never HPI HPI HPI: ROBERT MCCRARY, is a 58 M who presents to the office today for further consultation regarding his left forearm AV fistula. Please see my office note of October 27, 2018. Assessment AND Plan Problems 1. Problem with dialysis access, subsequent encounter T82.396D Plan Today was a 20-minute [id number] consultative appointment. I reviewed his left forearm AV fistula. He has relative stenosis of the proximal portion of the fistula and he has the pseudoaneurysm. I think that he would be a good candidate for a jump graft. This would help his upper arm fistula mature as well. He is aware that he would require tunneled dialysis catheters. It is of note that the pseudoaneurysm remains tender to touch today. I have concerns that it will progress and then he will require urgent intervention. He has had an opportunity to ask and have questions answered. At this point he would like to keep his scheduling and proceed. Pedro Walker M.D., F.A.C.S. Coding Level of Care Code Off vis,est,level 2 Diagnoses Problem with dialysis access, subsequent encounter T82.898D Encounter type: subsequent encounter 10/29/18 9037 <Electronically signed by Pedro Walker MD> Date Pedro Walker MD Cosigner Signature: Date (if applicable) CC: KIDNEY AND BLADDER Observed: 10/13/2018 Status: F Source: [place] 1:50 PM [facility] Imaging Services [address] [place] [address] Kidney and Bladder MR#: [id number] Acct: [id number] Name: ROBERT MCCRARY Rep #: [id number] : 1960 M 58 From: Tung Vance MD PCP: Abran Reveles MD Status: REG CLI Study: Kidney and Bladder Date of Exam: 10/13/18 Exam# [id number] Ordering Dr: aVnnessa Blakely DO STUDY: RENAL ULTRASOUND - COMPLETE REASON FOR EXAM: Male, 58 years old. Hematuria. TECHNIQUE: Ultrasound evaluation of the kidneys was performed with real-time and static mills-scale imaging. COMPARISON: CT abdomen and pelvis 07/01/2018. FINDINGS: RIGHT KIDNEY: Normal location of the right kidney, which is normal in size. The right kidney measures 11.3 x 4.9 x 5.5 cm. Mild increase echogenicity of the right renal cortex. The renal cortex measures cm. There is no right renal mass or cyst. There are no right renal calculi. There is no right hydronephrosis. DISTAL RIGHT URETER: There is non-visualization of the distal right ureter. There is no demonstrated right ureterovesical junction calculus. There is nonvisualization of the right ureteral jet. LEFT KIDNEY: Normal location of the left kidney, which is normal in size. The left kidney measures 10.7 x 4.0 x 5.1 cm. Mild increase echogenicity of the cortex of the left kidney. The renal cortex measures 1.3 cm. There is an anechoic cyst measuring 1.4 x 1.4 x 1.3 cm. There are no left renal calculi. There is no left hydronephrosis. DISTAL LEFT URETER: There is non-visualization of the distal left ureter. There is no demonstrated left ureterovesical junction calculus. There is nonvisualization of the left ureteral jet. BLADDER: The distended urinary bladder has a volume of 60.5 ml. There is a normal wall thickness of the distended urinary bladder. The bladder wall is 3 mm thick. There is no demonstrated mass within the urinary bladder. There are no demonstrated bladder calculi. US/Kidney and Bladder IMPRESSION: 1. Mild increase echogenicity of the renal parenchyma is suspicious for medical nephropathy. 2. No ultrasonic evidence of hydronephrosis or calculi in both kidneys. 3. Small anechoic cyst in the left kidney. Electronically Signed: Tung Vance MD at 15:42 EST , Service support , CC: Vannessa Blakely DO; Abran Reveles MD Manager Mountain: Signed STRESS TEST EXERCISE Observed: 09/24/2018 Status: F Source: [place] 12:12 PM [facility] REPOSITORY NAME : ROBERT MCCRARY PID : [id number] : 1960 Gender : Male Race : ORD : [id number] Procedure Date : Sep 24 2018 12:12:00 Edit Date : Sep 26 2018 12:20:03 Protocol Name : [id number] Time In Exercise Phase : 00:16:59 Max. Systolic BP : 209 mmHg Max Diastolic BP : 45 mmHg Max Heart Rate : 137 BPM Max Predicted Heart Rate : 164 BPM Recovery ECG Response (OLD) : Reason For Termination : Physician terminated Test Reason : Pre-Op Evaluation Location :[facility] Overread By : MD KOTA,QARAB Edited By : Ines Blanco Referred By : ANJEL OLSON Acquired by : Ines Blanco [facility] Observed: 09/24/2018 Status: COMPLETED Source: [place] 12:00 AM [facility] REPOSITORY Patient Update ([facility]) ROBERT [id number]) 1960 M TRN Date Time Provider Department 09/24/18 CATALINA CHILDERS (RN) [facility] During your visit today, we recorded the following information about you: Catalina Childers RN, RN 09/24/2018 1:44 PM Signed Patient here for out patient dobutamine stress echo. IV started per protocol. #22, right AC, flushed and patent. Dobutamine titrated to 40 mcg/kg/min and total of 2 mg atropine given per protocol. Encouraged some movement with legs and hands to help increase HR. 83 % of max HR achieved. Dr. Alcantara notified and here to see pt. Peak pictures obtained. Once test completed, IV discontinued, catheter intact. Pt tolerated procedure and ambulated out of department without difficulty. Allergies As of Date: 09/24/2018 (No Known Allergies) Date Reviewed: 09/09/2018 Reviewed by: Anjel Olson - Fully Assessed Prescriptions as of 09/24/2018 Sig: CITALOPRAM 40 MG TABLET Take 40 mg by mouth once marlo* PANTOPRAZOLE 40 MG TABLET,DEL* Take 40 mg by mouth once marlo* CALCIUM ACETATE 667 MG (169 M* Take 2 tablets by mouth three* ERGOCALCIFEROL (VITAMIN D2) 5* Take 50,000 Units by mouth on* HYDRALAZINE 25 MG TABLET Take 25 mg by mouth three mynor* AMLODIPINE 10 MG TABLET Take 10 mg by mouth once marlo* VITAMIN B COMPLEX-VITAMIN C-F* Take 0.8 mg by mouth daily wi* SIMVASTATIN 20 MG TABLET once daily. SYNTHROID 150 MCG TABLET once daily. Problem List As Of Date 09/24/2018 Noted Resolved Umbilical hernia without mention of obstruction*INVALID FOR* Melena [K92.1] INVALID FOR* Acute blood loss anemia [D62] INVALID FOR* ESRD (end stage renal disease) (HCC) [N18.6] INVALID FOR* DM (diabetes mellitus), type 1 with neurologica*INVALID FOR*09/03/2018 Essential hypertension [I10] INVALID FOR* Blood loss anemia [D50.0] INVALID FOR* More... Hypothyroidism [E03.9] INVALID FOR* Hypoxia [R09.02] INVALID FOR*08/06/2018 Positive fecal occult blood test [R19.5] INVALID FOR* Priority: A Controlled type 2 diabetes mellitus without com*INVALID FOR* Visit Notes: >> Catalina (Rn) SILVANA Childers SatSep 24, 2018 1:40 PM Status: Signed Patient here for out patient dobutamine stress echo. IV started per protocol. #22, right AC, flushed and patent. Dobutamine titrated to 40 mcg/kg/min and total of 2 mg atropine given per protocol. Encouraged some movement with legs and hands to help increase HR. 83 % of max HR achieved. Dr. Alcantara notified and here to see pt. Peak pictures obtained. Once test completed, IV discontinued, catheter intact. Pt tolerated procedure and ambulated out of department without difficulty. Encounter Status:Closed by CATALINA CHILDERS on 09/24/18 PROCEDURE Observed: 09/24/2018 Status: COMPLETED Source: [place] 12:00 AM [facility] REPOSITORY HNO ID: [id number] Author: Iris Alcantara Service: Cardiovascular Medicine Author Type: Physician Type: Procedures Filed: 09/25/2018 11:14 AM Note Text: [facility]- Stress Test ROBERT MCCRARY : 1960 AGE: 58 SEX: M ACCTNUM: [id number] [facility] SVC: LOCATION: ATTENDING PHYSICIAN: DATE OF STUDY: 09/24/2018 DOBUTAMINE STRESS ECHO REPORT INDICATIONS: For the evaluation preoperatively for intermediate risk surgery. The patient has family history of premature CAD and diabetes, hypertension also. REPORT: Blood pressure at rest was 130/50 mmHg. The patient had EKG showing sinus rhythm at a heart rate of 73 beats per minute and resting EKG is normal. The patient was given dobutamine infusion at 10 mcg, 20 mcg, 30 mcg, and 40 mcg/kg per minute every 3 minutes. The patient's heart rate increased up to 131 beats per minute, but he needed 2 more mg of atropine to increase the heart rate up to 139 beats per minute. The patient had few premature ventricular contractions during the dobutamine infusion, which were isolated and asymptomatic. There was a ventricular couplet or 2 also. There was no ST-segment depression noted. The patient did not feel any chest pressure or pain. The blood pressure pauline up to 182/53 mmHg. The patient had resting echo images, which showed normal wall motion and with the contractility of the left ventricle increasing with the dobutamine and atropine infusion, the left ventricular cavity decreased in size, which is a normal response. CONCLUSION: 1. Normal EKG part of the stress test with no ST-segment depression or chest pain. 2. The patient has few isolated ventricular ectopy due to dobutamine. 3. The patient has normal echocardiographic response to the dobutamine stress test consistent with low probability of coronary artery disease. Iris Alcantara M.D. Cardiology QS:[id number] /[id number] SURGERY VISIT REPORT Observed: 09/23/2018 Status: F Source: [place] 3:53 PM [facility] [place] [facility] [address] [place] [address] [address] [place] [address] OFFICE VISIT Date of Service: 09/23/18 MR#: [id number] Acct: [id number] Name: ROBERT MCCRARY Rep #: [id number] : 1960 Provider: Pedro Walker MD Age/Sex: 58/M Location: [facility] Status: Signed with Addenda ADDENDUM by Quiana Gunderson on 09/23/18 at 1553 OFFICE PROCEDURES Office Procedure Documentation entered by Quiana Gunderson 09/23/18 15:53: Procedure Time Out Time Out Informed consent given: Yes Consent signed: Yes Time out checklist: patient, procedure, site marked/identified, positioning of patient, supplies available, allergies confirmed, team agrees on procedure Time out staff in room: Yes Time out verified: Yes Time out date: 09/23/18 Time out time: 14:45 09/23/18 1553 <Electronically signed by Quiana Gunderson > Date Quiana Gunderson cc: Abran Reveles MD * Signed Intake Intake Visit Reasons: Catheter Removal Chief Complaint: Anemia Allergies epoetin beta [From Mircera] Adverse Reaction (Verified 08/01/18 16:35) back pain Medications Levothyroxine [Synthroid] 150 mcg PO QHS 10/28/15 [History Confirmed 09/01/18] Simvastatin [Zocor] 20 mg PO QHS 10/28/15 [History Confirmed 09/01/18] Citalopram Hydrobromide [Citalopram HBr] 40 mg PO QHS 01/03/18 [History Confirmed 09/01/18] Ergocalciferol [Vitamin D] 50,000 unit PO WE 01/21/18 [History Confirmed 09/01/18] Amlodipine [Norvasc] 10 mg PO QHS 05/08/18 [History Confirmed 09/01/18] hydrALAZINE [Apresoline] 25 mg PO TID 05/08/18 [History Confirmed 09/01/18] Calcium Acetate 2 cap PO TIDCM 08/01/18 [History Confirmed 09/01/18] Pantoprazole Sodium [Protonix] 40 mg PO DAILY 08/01/18 [History Confirmed 09/01/18] Yoko-Anna 0.8 mg PO QHS 08/01/18 [History Confirmed 09/01/18] PFSH Medical History Problem with dialysis access (Acute) Enteritis (Acute) Lymphadenopathy (Chronic) Chronic renal insufficiency, stage V (Acute) ELMO (acute kidney injury) (Acute) Hyperkalemia (Acute) Hyperlipidemia (Chronic) Hypothyroidism (Chronic) Hypertension (Chronic) Type II diabetes mellitus (Chronic) Community acquired pneumonia (Acute) Surgical History H/O hernia repair (Acute) Presence of surgically created arteriovenous shunt for hemodialysis (Acute) S/P nasal surgery (Acute) Family History Father No problems noted. Social History Smoking Status: Never smoker alcohol intake: never HPI HPI HPI: ROBERT MCCRARY, is a 58 M who presents to the office today for right internal jugular tunneled dialysis catheter removal. On September 01, 2018 I performed a left upper extremity forearm fistulogram with a 5 x 80 mm ever cross angioplasty of the proximal portion of the fistula. He has had good results and he has been able to be hemodialyzed via the fistula since that time. His hemodialysis catheters have been in place since January 14, 2018. [facility] Procedure Performed By: Procedure performed by: Pedro Walker Right internal jugular tunneled dialysis catheter removal Timeout and informed consent was obtained. 58-year-old gentleman was taken to the procedure room placed upon the table with slight head of bed elevation. The right anterior chest was sterilely prepped and draped with Betadine. 1% lidocaine mixed 50-50 with 0.5% Marcaine was used as local anesthetic. A total of 1.5 cc was used. A transverse incision was created. Sharp blunt dissection was used to release the cuff. The catheter was nicely removed with direct pressure. The counterincision was closed with interrupted 3-0 chromic subdermal stitch. Sterile dressings were applied. Blood loss was minimal. The catheter was removed nicely intact without apparent complication. Pedro Walker M.D., F.A.C.S. Assessment AND Plan Problems 1. Problem with dialysis access, subsequent encounter T82.898D Plan Successful removal right internal jugular tunneled dialysis catheters. The patient has a nicely functioning left forearm radial to cephalic arteriovenous fistula. Further office follow-up can be pending his dialysis needs. Pedro Walker M.D., F.A.C.S. Orders Orders: Coding Level of Care Code Attention Golden Diagnoses Problem with dialysis access, subsequent encounter T82.898D Encounter type: subsequent encounter Comment [id number] 09/23/18 1509 <Electronically signed by Pedro Walker MD> Date Pedro Walker MD Cosigner Signature: Date (if applicable) CC: Abran Reveles MD CNPKiana Observed: 09/23/2018 Status: COMPLETED Source: [place] 12:00 AM [facility] REPOSITORY [facility]phone [facility] ROBERT MCCRARY ([id number]) 1960 M TRN Date Time Provider Department 09/23/18 CATALINA CHILDERS (RN) [facility] During your visit today, we recorded the following information about you: Catalina Childers RN, RN 09/23/2018 2:26 PM Signed Left message regarding reminder for stress test tomorrow and given instructions Allergies As of Date: 09/23/2018 (No Known Allergies) Date Reviewed: 09/09/2018 Reviewed by: Anjel Olson - Fully Assessed Reason for Visit: Reminder Call [[id number]] Prescriptions as of 09/23/2018 Sig: CITALOPRAM 40 MG TABLET Take 40 mg by mouth once marlo* PANTOPRAZOLE 40 MG TABLET,DEL* Take 40 mg by mouth once marlo* CALCIUM ACETATE 667 MG (169 M* Take 2 tablets by mouth three* ERGOCALCIFEROL (VITAMIN D2) 5* Take 50,000 Units by mouth on* HYDRALAZINE 25 MG TABLET Take 25 mg by mouth three mynor* AMLODIPINE 10 MG TABLET Take 10 mg by mouth once marlo* VITAMIN B COMPLEX-VITAMIN C-F* Take 0.8 mg by mouth daily wi* SIMVASTATIN 20 MG TABLET once daily. SYNTHROID 150 MCG TABLET once daily. Problem List As Of Date 09/23/2018 Noted Resolved Umbilical hernia without mention of obstruction*INVALID FOR* Melena [K92.1] INVALID FOR* Acute blood loss anemia [D62] INVALID FOR* ESRD (end stage renal disease) (HCC) [N18.6] INVALID FOR* DM (diabetes mellitus), type 1 with neurologica*INVALID FOR*09/03/2018 Essential hypertension [I10] INVALID FOR* Blood loss anemia [D50.0] INVALID FOR* More... Hypothyroidism [E03.9] INVALID FOR* Hypoxia [R09.02] INVALID FOR*08/06/2018 Positive fecal occult blood test [R19.5] INVALID FOR* Priority: A Controlled type 2 diabetes mellitus without com*INVALID FOR* Encounter Status:Closed by CATALINA CHILDERS on 09/23/18 PROGRESS Observed: 09/09/2018 Status: COMPLETED Source: [place] 12:24 PM [facility] REPOSITORY O ID: [id number] Author: Helen (Rn) Arnaldo RN Service: (none) Author Type: Registered Nurse Type: Progress Notes Filed: 09/09/2018 12:25 PM Note Text: Sent copy of this patient's transplant evaluation and lab work to [facility] via fax [phone]. Helen Mcintosh RN Pre-Kidney AND Pancreas Clinical Radiologist [facility] PROGRESS Observed: 09/09/2018 Status: COMPLETED Source: [place] 6:58 AM [facility] REPOSITORY HNO ID: [id number] Author: Kathrine Harrisemily Service: (none) Author Type: Physician Type: Progress Notes Filed: 09/09/2018 6:04 PM Note Text: [facility] Transplant Evaluation CC: Patient is a 58 year old male here for transplant candidacy evaluation. Reason for visit: here for evaluation to be a Kidney Transplant recipient. Referred by: Vannessa Blakely DO ([facility]) [address] [facility] [place] [address] [address] I will communicate with the referring provider by letter and/or shared electronic medical record. HPI: This patient is a 58 year old white male BP 152/61 (BP Site: Left Arm, BP Position: Sitting, BP Cuff Size: Regular Adult) Pulse 75 Temp 36.5 ?C (97.7 ?F) (Tympanic) Ht 177.8 cm (5' 10) Wt 83.5 kg (184 lb) BMI 26.40 kg/m? HPI: 58 y/o male with PMHx of ESRD from DM and HTN here for kidney transplant eval. ? #T2DM diagnosed 11 years ago complicated by DN. No retinopathy or neuropathy but has RLS HTN - 10 years, controlled on medication Hypothyroidism GI Bleed with multiple transfusions: No source of bleeding identified though - was iron deficient, recent hematology consult recommended iron and cont ARSH ? Depression: Never followed up with psych nor treated for it ? He lives with his : They both drive. 2 dogs at home as pets Living donor: possible Not on blood thinner PAOD (TIA non-embolic, CVA non-embolic, amputation, carotid artery stenosis, abnormal PVRs, claudication history, decreased pulses, etc.):No Stroke: NO Claudication: NO Carotid Artery Stenosis: NO Malignancy (including skin cancer): No Hypercoagulable (history of DVT/PE, miscarriages, prior use of anticoagulation, etc.):No Prior transplant: No CKD: Yes: Cause of CKD: DM Hemodialysis, Start date: 03/2018 Living Donors: Yes Residual UO: Less than normal. Last 24 hour test did 3 liters back in January 2018 DM: Yes Diagnosed at age 47, Type 2 and Therapies: diet No longer taking insulin or oral hypoglycemics since starting dialysis. PAST MEDICAL HISTORY Diagnosis Date - Anemia - Depression - DM (diabetes mellitus) (HCC) - ESRD (end stage renal disease) (HCC) - HTN (hypertension) - Hyperlipidemia - Hyperparathyroidism due to renal insufficiency (HCC) - Hyperphosphatemia - Hypothyroid - Iron deficiency - Vitamin D deficiency PAST SURGICAL HISTORY Procedure Laterality Date - FISTULA - HERNIA REPAIR HX 1983 inguinal - REPAIR UMBILICAL JAMES,5+Y/O,REDUC 11/19/12 with mesh Current Outpatient Prescriptions: citalopram (CELEXA) 40 mg tablet Take 40 mg by mouth once daily. pantoprazole DR (PROTONIX) 40 mg tablet Take 40 mg by mouth once daily. calcium acetate 667 mg (169 mg calcium)/5 mL soln Take 2 tablets by mouth three times daily with meals. ergocalciferol, vitamin D2, (VITAMIN D) 50,000 unit capsule Take 50,000 Units by mouth once each week. saturday hydrALAZINE (APRESOLINE) 25 mg tablet Take 25 mg by mouth three times daily. amLODIPine (NORVASC) 10 mg tablet Take 10 mg by mouth once daily. B Complex-Vitamin C-Folic Acid (YOKO-ANNA) 0.8 mg tab Take 0.8 mg by mouth daily with dinner. Every evening SIMVASTATIN 20 mg tablet once daily. SYNTHROID 150 mcg tablet once daily. No current facility-administered medications for this visit. 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 CXR: pending today ? Colonoscopy: Completed on 06/24/18, results hemorrhoids. Normal. Due in ten years. ? Sensitizations: Prior transplant: No Blood transfusions: Yes ? Immunizations: HBV series: Not received, patient encouraged to obtain Pneumovax: Not received, patient encouraged to obtain Influenza vaccine: Not received, patient encouraged to obtain ? Helen Mcintosh RN REVIEW OF SYSTEMS GENERAL: No weight loss, malaise or fevers HEENT: Negative for frequent or significant headaches, No changes in hearing or vision, no nose bleeds or other nasal problems NECK: Negative for lumps, goiter, pain and significant neck swelling RESPIRATORY: Negative for cough, hemoptysis, wheezing CARDIOVASCULAR: Negative for chest pain, minimal leg swelling, GI: No nausea, vomiting, or diarrhea : No history of dysuria, frequency or incontinence SKIN: Negative for lesions, rash, and itching HEMATOLOGY/LYMPHOLOGY: Negative for prolonged bleeding, bruising easily or swollen nodes ENDOCRINE: Negative for cold or heat intolerance, polyuria, polydipsia and goiter NEURO: No history of headaches, syncope, paralysis, seizures or tremors PHYSICAL EXAMINATION: General appearance: Well appearing, alert, in no acute distress, well-hydrated, well nourished. Skin: Skin color, texture, turgor normal, no suspicious rashes or lesions Head: Normocephalic, no masses, lesions, tenderness or abnormalities Eyes: Anicteric sclera. Pupils are equally round and reactive to light. Extraocular movements are intact. Neck: Supple, no adenopathy; thyroid symmetric, normal size, no bruits Lungs: Lungs clear to auscultation. No wheezing, rhonchi, rales Heart: (+)murmur from radiation of fistula Abdomen: Abdomen soft, non-tender. Bowel sounds normal. No masses, incision well healed Extremities: No deformities, edema, Peripheral pulses: ++ Neuro: Gait normal. A: ESRD 2 to DM/HTN Plan:Mr. Mccrary is an acceptable candidate for kidney transplantation pending completion of work up and meeting the rest of the team. Advantages and disadvantages of transplantation versus dialysis were reviewed. Discussed the operative procedure and potential complications. I addressed issues of post-operative recovery and follow up. Few things I have discussed with him a. because of his age, living donor would be ideal for him. b. the importance of compliance c. the frequent travel in the early post op period for monitoring d. We also discussed the transplant procedure and the need for urinary catheter and ureteric stent. I overviewed the issues of delayed graft function, the possible need for dialysis, and the possible need for re-operation during the early postoperative period. I also informed him of the occasional need for blood transfusion and he expressed his understanding and willingness to accept one if the need arises. I mentioned other complications including thromboembolic events, cardiac events, and infection. Lastly I discussed the need for immunosuppressive therapy and the risk associated with this treatment. he would like to proceed 1. CT scan abdomen and pelvis non contrast - retrieve outside film 2. Serology - 3. Cardiac testing I have spent 60 minutes with pt in which 35 minutes was spent on care and counselling Kathrine Zhang MD PROTIME Collected: 09/08/2018 Status: F Source: [place] 5:18 PM [facility] [place] TYPE CODE TESTS RESULT OUT OF RANGE REFERENCE UNITS LAB PSEC 9.7-13.0 sec PT Sec 11.3 LAB INR 0.9-1.3 PT INR 1.1 Result Comment: Vitamin K Antagonist (VKA) Therapeutic Range: INR 2 to 3 (Target INR of 2.5) Note: For patients treated with VKA drugs, such as warfarin, the [place] [employer] 2012 Guideline recommends a therapeutic INR range of 2 to 3 (target INR of 2.5). This recommendation includes high-risk patients with antiphospholipid syndrome with previous arterial or venous thromboembolism, current-generation mechanical or bioprosthetic aortic heart valve replacement. Note: Patients with mechanical aortic valve replacement and additional risk factors for thromboembolic events (atrial fibrillation, previous thromboembolism, LV dysfunction, hypercoagulable conditions) or an older generation mechanical AVR (i.e., ball in-Cage) or any mechanical MVR should have a INR therapeutic range of 2.5 to 3.5 (target INR of 3). Dennis GH, et al. Chest 2012, 141:7S-47S Heide ELIZALDE et al. [facility] 2017, 70: 252-289 Performed By: #### PT, PTT, CBC, RETIC, VZVG2, CMVG, MEASLG, CMP, HAPTO, PHOS, LD6, PTHI, PSATF, HREMOP, HIV12C, SYPHGX, EBVG, HCQPCR #### [place] [id number] #### STRSER #### [address] [id number] [phone] APTT Collected: 09/08/2018 Status: F Source: [place] 5:18 PM [facility] [place] [facility] TYPE CODE TESTS RESULT OUT OF RANGE REFERENCE UNITS LAB APTT 23.0-32.4 sec APTT 32.4 Result Comment: Unfractionated Heparin Therapeutic Ranges: Standard Heparin Nomogram: 53 to 78 seconds (anti-Xa level of 0.3 to 0.7 U/ml) Low Dose/ACS Nomogram: 49 to 67 seconds (anti-Xa level of 0.2 to 0.5 U/ml) Stroke Treatment Nomogram: 49 to 67 seconds (anti-Xa level of 0.2 to 0.5 U/ml) Note: The APTT therapeutic range has been determined for the current lot of laboratory APTT reagent in use throughout the [facility]. Performed By: #### PT, PTT, CBC, RETIC, VZVG2, CMVG, MEASLG, CMP, HAPTO, PHOS, LD6, PTHI, PSATF, HREMOP, HIV12C, SYPHGX, EBVG, HCQPCR #### [place] [id number] #### STRSER #### [address] [id number] [phone] CBC Collected: 09/08/2018 Status: F Source: [place] 5:18 PM [facility] [place] [facility] TYPE CODE TESTS RESULT OUT OF REFERENCE UNITS RANGE LAB WBC 3.70-11.00 k/uL WBC High 11.66 LAB RBC 4.20-6.00 m/uL Low RBC 3.68 LAB HGB 13.0-17.0 g/dL Low Hemoglobin 9.5 LAB HCT 39.0-51.0 % Low Hematocrit 31.5 LAB MCV 80.0-100.0 fL MCV 85.6 LAB MCH 26.0-34.0 pG Low MCH 25.8 LAB MCHC 30.5-36.0 g/dL Low MCHC 30.2 LAB RDWCV 11.5-15.0 % RDW-CV 14.8 LAB PLTCT 150-400 k/uL Platelet High Count 454 LAB MPV 9.0-12.7 fL Low MPV 8.8 LAB ABSNUC <0.01 k/uL Absolute nRBC <0.01 Performed By: #### PT, PTT, CBC, RETIC, VZVG2, CMVG, MEASLG, CMP, HAPTO, PHOS, LD6, PTHI, PSATF, HREMOP, HIV12C, SYPHGX, EBVG, HCQPCR #### [place] [id number] #### STRSER #### [address] [address] [phone] RETICULOCYTE Collected: 09/08/2018 Status: F Source: [place] 5:18 PM [facility] [place] [facility] TYPE CODE TESTS RESULT OUT OF REFERENCE UNITS RANGE LAB RETC 0.4-2.0 % High Retic% 4.5 LAB ABRET 0.0180-0.1000 M/uL High Abs Retic 0.167 Performed By: #### PT, PTT, CBC, RETIC, VZVG2, CMVG, MEASLG, CMP, HAPTO, PHOS, LD6, PTHI, PSATF, HREMOP, HIV12C, SYPHGX, EBVG, HCQPCR #### [place] [id number] #### STRSER #### [facility] [address] [place] [id number] [phone] VARICELLA ZOSTER IGG Collected: 09/08/2018 Status: F Source: [place] 5:18 PM [facility] [place] [place] [facility] TYPE CODE TESTS RESULT OUT OF RANGE REFERENCE UNITS LAB VZVGQL Negative Abnormal V. zoster Positive Alert IgG, Qual Result Comment: Presence of detectable VZV IgG antibodies. A positive result generally indicates exposure to the pathogen or administration of specific immunoglobulins, but is no indication of active infection or stage of disease. LAB VZVG Index Value Varicella Zoster IgG >4000.0 Result Comment: Index Values are Interpreted as Follows: Negative specimens <135.0 Equivocal specimens 135.0 to 164.9 Positive specimens >164.9 The magnitude of the measured result is not indicative of the amount of antibody present. Performed By: #### PT, PTT, CBC, RETIC, VZVG2, CMVG, MEASLG, CMP, HAPTO, PHOS, LD6, PTHI, PSATF, HREMOP, HIV12C, SYPHGX, EBVG, HCQPCR #### [facility] [address] [place], [place] [address] #### STRSER #### [address] [address] [phone] CMV IGG ANTIBODY Collected: 09/08/2018 Status: F Source: [place] 5:18 [facility] REPOSITORY TYPE CODE TESTS RESULT OUT OF RANGE REFERENCE UNITS LAB CMVGQL Negative Abnormal Alert CMV Positive IgG Qual Result Comment: Presence of detectable CMV IgG antibodies indicates either recent or past exposure to CMV. LAB CMVGA U/mL CMV IgG Antibody >10.00 Result Comment: U/mL values are interpreted as follows: Negative: <0.60 Equivocal: >=0.60 to <0.70 Positive: >=0.70 The magnitude of the measured result above the cutoff is not indicative of the amount of antibody present. Performed By: #### PT, PTT, CBC, RETIC, VZVG2, CMVG, MEASLG, CMP, HAPTO, PHOS, LD6, PTHI, PSATF, HREMOP, HIV12C, SYPHGX, EBVG, HCQPCR #### [place] [id number] [place], [place] [address] #### STRSER #### [address] [address] [phone] MEASLES IGG ANTIBODY Collected: 09/08/2018 Status: F Source: [place] 5:18 [facility] REPOSITORY TYPE CODE TESTS RESULT OUT OF RANGE REFERENCE UNITS LAB MEASQL Negative Abnormal Measles Equivocal Alert IgG Ab, Qual Result Comment: A second sample should be collected and tested no less than one to two weeks later. LAB MEASG AU/mL Measles IgG Antibody 28.4 Result Comment: AU/mL Value interpreted as follows: Negative specimens <25.0 Equivocal specimens 25.0 to 29.9 Positive specimens >29.9 The magnitude of the measured result, above the cutoff, is not indicative of the amount of antibody present. Performed By: #### PT, PTT, CBC, RETIC, VZVG2, CMVG, MEASLG, CMP, HAPTO, PHOS, LD6, PTHI, PSATF, HREMOP, HIV12C, SYPHGX, EBVG, HCQPCR #### [facility] [address] [place], [place] [address] #### STRSER #### [facility] [address] [place] [address] [phone] COMP METABOLIC PANEL Collected: 09/08/2018 Status: F Source: NEAL 5:18 PM [facility] REPOSITORY TYPE CODE TESTS RESULT OUT OF REFERENCE UNITS RANGE LAB TP 6.3-8.0 g/dL Protein, Total 7.6 LAB ALB 3.9-4.9 g/dL Low Albumin 3.6 LAB CA 8.5-10.2 mg/dL Calcium, Total 8.9 LAB TBIL 0.2-1.3 mg/dL Bilirubin, Total 0.3 LAB ALKP 38-113 U/L Alkaline Phosphatase 53 LAB AST 14-40 U/L Low AST 13 LAB GLU 74-99 mg/dL Glucose 78 Result Comment: The [place] Diabetes Association (ADA) provides guidance for cutoff values for fasting glucose and random glucose. The ADA defines fasting as no caloric intake for at least 8 hours. Fas ting plasma glucose results between 100 to 125 mg/dL indicate increased risk for diabetes (prediabetes). Fasting plasma glucose results greater than or equal to 126 mg/dL meet the criteria for diagnosis of diabetes. In the absence of unequivocal hyperglycemia, results should be confirmed by repeat testing. In a patient with classic symptoms of hyperglycemia or hyperglycemic crisis, random plasma glucose results greater than or equal to 200 mg/dL meet the criteria for diagnosis of diabetes. Reference: Standards of Medical Care in Diabetes 2016, [place] [employer] Association. Diabetes Care. 2016.39(Suppl 1). LAB BUN 9-24 mg/dL BUN High 65 LAB CRET 0.73-1.22 mg/dL Creatinine High 8.49 LAB NA 136-144 mmol/L Low Sodium 131 LAB K 3.7-5.1 mmol/L Potassium High 5.5 LAB CL 97-105 mmol/L Low Chloride 89 LAB CO2 22-30 mmol/L CO2 22 LAB AGAP 9-18 mmol/L Anion Gap High 20 LAB ALT 10-54 U/L Low ALT 8 LAB GFRAA eGFR- 8 Amer. LAB GFRNAA . eGFR-All Other Races 7 Result Comment: eGFR (Estimated GFR) Units of measure: mL/min/1.73 meters squared eGFR is derived from the reexpressed MDRD Study equation using the following parameters: serum creatinine, age, gender and race. The creatinine assay has been calibrated to be traceable to IDMS. An eGFR <60 mL/min/1.73m2 for >3 months is consistent with chronic kidney disease. Refer to KDOQI guidelines for clinical interpretation. In patients with unstable renal function, e.g. those with acute kidney injury, the eGFR may not accurately reflect actual GFR. Performed By: #### PT, PTT, CBC, RETIC, VZVG2, CMVG, MEASLG, CMP, HAPTO, PHOS, LD6, PTHI, PSATF, HREMOP, HIV12C, SYPHGX, EBVG, HCQPCR #### [facility] [address] [place] [address] #### STRSER #### [facility] [address] [place] [address] [phone] HAPTOGLOBIN Collected: 09/08/2018 Status: F Source: NEAL 5:18 PM [facility] REPOSITORY TYPE CODE TESTS RESULT OUT OF REFERENCE UNITS RANGE LAB HAPTO 31-238 mg/dL Haptoglobin High 250 Performed By: #### PT, PTT, CBC, RETIC, VZVG2, CMVG, MEASLG, CMP, HAPTO, PHOS, LD6, PTHI, PSATF, HREMOP, HIV12C, SYPHGX, EBVG, HCQPCR #### [facility] [address] [place] [address] #### STRSER #### [facility] [address] [place] [address] [phone] PHOSPHORUS Collected: 09/08/2018 Status: F Source: NEAL 5:18 PM [facility] REPOSITORY TYPE CODE TESTS RESULT OUT OF REFERENCE UNITS RANGE LAB PHOS 2.7-4.8 mg/dL High Phosphorus 6.9 Performed By: #### PT, PTT, CBC, RETIC, VZVG2, CMVG, MEASLG, CMP, HAPTO, PHOS, LD6, PTHI, PSATF, HREMOP, HIV12C, SYPHGX, EBVG, HCQPCR #### [place] [address] #### STRSER #### [address] [address] [phone] LD Collected: 09/08/2018 Status: F [facility] 5:18 PM [facility] REPOSITORY TYPE CODE TESTS RESULT OUT OF RANGE REFERENCE UNITS LAB LD 135-225 U/L LD 147 Performed By: #### PT, PTT, CBC, RETIC, VZVG2, CMVG, MEASLG, CMP, HAPTO, PHOS, LD6, PTHI, PSATF, HREMOP, HIV12C, SYPHGX, EBVG, HCQPCR #### [place] [address] #### STRSER #### [address] [address] [phone] PTH, INTACT Collected: 09/08/2018 Status: F Source: NEAL 5:18 PM [facility] REPOSITORY TYPE CODE TESTS RESULT OUT OF REFERENCE UNITS RANGE LAB PTH 15-65 pg/mL High PTH, Intact 118 Performed By: #### PT, PTT, CBC, RETIC, VZVG2, CMVG, MEASLG, CMP, HAPTO, PHOS, LD6, PTHI, PSATF, HREMOP, HIV12C, SYPHGX, EBVG, HCQPCR #### [place] [address] #### STRSER #### [address] [address] [phone] PSA, FREE Collected: 09/08/2018 Status: F Source: NEAL 5:18 PM [facility] REPOSITORY TYPE CODE TESTS RESULT OUT OF REFERENCE UNITS RANGE LAB PSA 0.00-2.59 ng/mL PSA, Diagnostic 0.98 Result Comment: Total PSA test methodology used is the Electrochemiluminescence Immunoassay. LAB PSAPER % PSA, Percent Free 31 DO NOT ORDER FOR SUPERIOR ONLY Result Comment: Less than 11% suggestive of prostate cancer. Greater than 23% suggestive of benign condition. Performed By: #### PT, PTT, CBC, RETIC, VZVG2, CMVG, MEASLG, CMP, HAPTO, PHOS, LD6, PTHI, PSATF, HREMOP, HIV12C, SYPHGX, EBVG, HCQPCR #### [place] [address] #### STRSER #### [address] [address] [phone] HEPATITIS REMOTE PANEL Collected: 09/08/2018 Status: F Source: NEAL 5:18 PM [facility] REPOSITORY TYPE CODE TESTS RESULT OUT OF REFERENCE UNITS RANGE LAB AHBCOT Negative Hep B Core Ab,Total Negative LAB AHCV Negative Hepatitis C Ab Negative IA LAB HBSAGR Negative HBsAg Negative LAB AHBSAG Negative HepB Surface Ab,Qual Negative Result Comment: NEGATIVE Performed By: #### PT, PTT, CBC, RETIC, VZVG2, CMVG, MEASLG, CMP, HAPTO, PHOS, LD6, PTHI, PSATF, HREMOP, HIV12C, SYPHGX, EBVG, HCQPCR #### [place] [address] #### STRSER #### [address] [address] [phone] HIV 12 COMBO (AG/AB) Collected: 09/08/2018 Status: F Source: NEAL 5:18 PM [facility] REPOSITORY TYPE CODE TESTS RESULT OUT OF REFERENCE UNITS RANGE LAB HVAGAB Non Reactive HIV Non Reactive 12 Ag/Ab Result Comment: (NOTE) HIV Information: [place] Rev. Code 3701.243(E): This information has been disclosed to you from confidential records protected from disclosure by state law. You shall make no further disclosure of this information without the specific, written, and informed release of the individual to whom it pertains, or as otherwise permitted by state law. A general authorization for the release of medical or other information is not sufficient for the purpose of the release of HIV test results or diagnoses. Performed By: #### PT, PTT, CBC, RETIC, VZVG2, CMVG, MEASLG, CMP, HAPTO, PHOS, LD6, PTHI, PSATF, HREMOP, HIV12C, SYPHGX, EBVG, HCQPCR #### [place] [address] [place], [place] [address] #### STRSER #### [address] [address] [phone] SYPHILIS IGG WITH Collected: 09/08/2018 Status: F Source: [facility] 5:18 PM [facility] REPOSITORY TYPE CODE TESTS RESULT OUT OF REFERENCE UNITS RANGE LAB SYPHQL Nonreactive Syphilis IgG, Nonreactive Qual Result Comment: No serological evidence of infection with T. pallidum. LAB SYPHLG AI Syphilis IgG <0.2 Result Comment: Antibody index is interpreted as follows: Non reactive SPECIMENS <=0.8 Weak reactive SPECIMENS 0.9 to 5.9 Reactive SPECIMENS >=6.0 Performed By: #### PT, PTT, CBC, RETIC, VZVG2, CMVG, MEASLG, CMP, HAPTO, PHOS, LD6, PTHI, PSATF, HREMOP, HIV12C, SYPHGX, EBVG, HCQPCR #### [address] [address] #### STRSER #### [address] [address] [phone] EBV IGG ANTIBODY Collected: 09/08/2018 Status: F Source: NEAL 5:18 PM [facility] REPOSITORY TYPE CODE TESTS RESULT OUT OF REFERENCE UNITS RANGE LAB EBVGQ Negative EBV Negative VCA IgG, Qual Result Comment: EBV VCA IgG antibodies are not detectable. If the result is negative and exposure to Melvina-Lilly virus is suspected, a second sample should be collected and tested no less than one to two weeks later. LAB EBVGX AI EBV VCA IgG <0.2 Result Comment: AI VALUES ARE INTERPRETED FOLLOWS: NEGATIVE SPECIMENS <=0.8 EQUIVOCAL SPECIMENS 0.9 TO 1.0 POSITIVE SPECIMENS >=1.1 Antibody index (AI) values reflect qualitative changes in antibody concentration that cannot be associated with clinical condition or disease state. Performed By: #### PT, PTT, CBC, RETIC, VZVG2, CMVG, MEASLG, CMP, HAPTO, PHOS, LD6, PTHI, PSATF, HREMOP, HIV12C, SYPHGX, EBVG, HCQPCR #### [place] [phone] #### STRSER #### [address] [address] [phone] HEPATITIS C RNA Collected: 09/08/2018 Status: F Source: NEAL 5:18 [facility] REPOSITORY TYPE CODE TESTS RESULT OUT OF REFERENCE UNITS RANGE LAB HCQPCR IU/mL Hepatitis C RNA HCV RNA not detected by PCR. Result Comment: Reference Range: Negative for HCV RNA The Linear Range of this assay is 15 IU/mL to 100,000,000 IU/mL. Performed By: #### PT, PTT, CBC, RETIC, VZVG2, CMVG, MEASLG, CMP, HAPTO, PHOS, LD6, PTHI, PSATF, HREMOP, HIV12C, SYPHGX, EBVG, HCQPCR #### [place] [phone] #### STRSER #### [address] [address] [phone] STRONGYLOIDE IGG SER Collected: 09/08/2018 Status: F Source: NEAL 5:18 [facility] REPOSITORY TYPE CODE TESTS RESULT OUT OF REFERENCE UNITS RANGE LAB STRGS <=0.9 IV Strongyloide IgG Ser 0.3 Result Comment: (NOTE) INTERPRETIVE INFORMATION: Strongyloides Ab, IgG by HIEN 0.9 IV or less....... Negative - No significant level of Strongyloides IgG antibody detected. 1.0 IV................Equivocal - The Strongyloides IgG antibody result is borderline and therefore inconclusive. Recommend retesting the patient in 2-4 weeks, if clinically indicated. 1.1 IV or greater ... Positive - IgG antibodies to Strongyloides detected, which may suggest current or past infection. False-positive results may occur with prior exposure to other helminth infections. Testing low-prevalence populations may also result in false-positive results. Performed by [facility], [address] [place] [address] [email or web address], Mohinder Kebede MD, Lab. Director Performed By: #### PT, PTT, CBC, RETIC, VZVG2, CMVG, MEASLG, CMP, HAPTO, PHOS, LD6, PTHI, PSATF, HREMOP, HIV12C, SYPHGX, EBVG, HCQPCR #### [facility] [employer] [facility] [place] [address] #### STRSER #### [facility] [address] [place], [place] [id number] [phone] TB BY QUANTIFERON Collected: 09/08/2018 Status: F Source: NEAL 5:18 PM [facility] REPOSITORY TYPE CODE TESTS RESULT OUT OF REFERENCE UNITS RANGE LAB TBGNIL IU/mL TB NIL 0.04 LAB TBG1AG <0.35 IU/mL TB1 Ag minus 0.00 Nil LAB TBG2AG <0.35 IU/mL TB2 Ag minus 0.00 Nil LAB TBMITN Mitogen minus 1.63 Nil LAB TBGRES Negative TB Result Negative LAB TBGINT Interpretation No evidence of current or previous infection with Mycobacterium tuberculosis. Performed By: #### INFTBP #### [place] [address] [place] CONFIRM ABO/RH Collected: 09/08/2018 Status: F Source: NEAL [facility] USE 5:15 PM [facility] REPOSITORY TYPE CODE TESTS RESULT OUT OF REFERENCE UNITS RANGE LAB %ABR A ABO/RH(D) POSITIVE Performed By: #### TRCABO #### [place] [address] TYPE AND SCREEN Collected: 09/08/2018 Status: F Source: NEAL 5:08 PM [facility] REPOSITORY TYPE CODE TESTS RESULT OUT OF REFERENCE UNITS RANGE LAB %ABR A ABO/RH(D) POSITIVE LAB % Antibody NEG Screen Performed By: #### TSCR #### [facility] [address] [place] [id number] ECG COMPLETE W Observed: 09/08/2018 Status: F Source: NEAL INTERPRETATION 4:37 PM [facility] REPOSITORY NAME : ROBERT MCCRARY PID : [id number] : 1960 Gender : Male Race : ORD : [id number] Procedure Date : Sep 08 2018 16:37:41 Edit Date : Sep 12 2018 10:48:57 Diagnosis:NORMAL SINUS RHYTHM LEFT ATRIAL ENLARGEMENT ABNORMAL ECG Confirmed by Collin SAUCEDA M.D. ([id number]) on 09/12/2018 10:39:28 AM Ventricular Rate : 70 BPM Atrial Rate : 70 BPM P-R Interval : 144 ms QRS Duration : 80 ms Q-T Interval : 422 ms QTC Calculation(Bezet) : 455 ms P [place] : 79 degrees R [place] : 29 degrees T [place] : 64 degrees Test Reason : Location : 314 : [facility] Overread By : Collin SAUCEDA M.D. Edited By : Collin SAUCEDA M.D. Referred By : VANNESSA BLAKELY Acquired by : MYLES HUERTAS CNOV Observed: 09/08/2018 Status: COMPLETED Source: NEAL 4:00 PM [facility] RE[facility]ITORY Office Visit (TXCTGL) ROBERT MCCRARY ([id number]) 1960 M TRN Date Time Provider Department 09/08/18 4:00 PM [facility] TX[facility] During your visit today, we recorded the following information about you: Temperature Pulse Blood pressure Weight 97.7 degrees 75/minute 152/61 83.5 kg Height 1.778 m Anjel Olson MD 09/09/2018 9:20 AM Signed [facility] [place] [facility] Transplant Evaluation CC: Patient is a 58 year old male here for transplant candidacy evaluation. Reason for visit: here for evaluation to be a Kidney Transplant recipient. Referred by: Vannessa Blakely DO ([facility]) [address] [place] [phone] I will communicate with the referring provider by letter and/or shared electronic medical record. HPI: 58 y/o male with PMHx of ESRD from DM and HTN here for kidney transplant eval. # T2DM diagnosed 11 years ago complicated by DN. No retinopathy or neuropathy but has RLS # HTN - 10 years, controlled on medication # Hypothyroidism # GI Bleed with multiple transfusions: No source of bleeding identified though - was iron deficient, recent hematology consult recommended iron and cont ARSH # Depression: Never followed up with psych nor treated for it #HD, [facility] 4h/session EDW 77 Kg He lives with his : They both drive. 2 dogs at home as pets. PAOD (TIA non-embolic, CVA non-embolic, amputation, carotid artery stenosis, abnormal PVRs, claudication history, decreased pulses, etc.):No Stroke: NO Claudication: NO Carotid Artery Stenosis: NO Malignancy (including skin cancer): No Hypercoagulable (history of DVT/PE, miscarriages, prior use of anticoagulation, etc.): No Prior transplant: No CKD: Yes: Cause of CKD: DM Hemodialysis, Start date: 03/2018 Living Donors: Yes Residual UO: Less than normal. Last 24 hour test did 3 liters back in January 2018 DM: Yes Diagnosed at age 47, Type 2 and Therapies: diet No longer taking insulin or oral hypoglycemics since starting dialysis. PAST MEDICAL HISTORY Diagnosis Date - Anemia - Depression - DM (diabetes mellitus) (HCC) - ESRD (end stage renal disease) (HCC) - HTN (hypertension) - Hyperlipidemia - Hyperparathyroidism due to renal insufficiency (HCC) - Hyperphosphatemia - Hypothyroid - Iron deficiency - Vitamin D deficiency PAST SURGICAL HISTORY Procedure Laterality Date - FISTULA - HERNIA REPAIR HX 1983 inguinal - REPAIR UMBILICAL JAMES,5+Y/O,REDUC 11/19/12 with mesh Current Outpatient Prescriptions: citalopram (CELEXA) 40 mg tablet Take 40 mg by mouth once daily. pantoprazole DR (PROTONIX) 40 mg tablet Take 40 mg by mouth once daily. calcium acetate 667 mg (169 mg calcium)/5 mL soln Take 2 tablets by mouth three times daily with meals. ergocalciferol, vitamin D2, (VITAMIN D) 50,000 unit capsule Take 50,000 Units by mouth once each week. saturday hydrALAZINE (APRESOLINE) 25 mg tablet Take 25 mg by mouth three times daily. amLODIPine (NORVASC) 10 mg tablet Take 10 mg by mouth once daily. B Complex-Vitamin C-Folic Acid (YOKO-ANNA) 0.8 mg tab Take 0.8 mg by mouth daily with dinner. Every evening SIMVASTATIN 20 mg tablet once daily. SYNTHROID 150 mcg tablet once daily. No current facility-administered medications for this visit. FAMILY HISTORY Problem Relation Age of Onset - Alcohol/Drug Sister - Stroke Father - Heart Father - Colon Cancer Father - Diabetes Mother - Hypertension Mother - Arthritis Mother Family Status Relation Status - Sis (Not Specified) - Fa (Not Specified) - Mo (Not Specified) Social History Marital status: Spouse name: Years of education: Number of children: Social History Main Topics Smoking status: Never Smoker Smokeless tobacco: Current User Types: Snuff Pre-transplant testing: Cardiac: EKG 08/03/18- Diagnosis:NORMAL SINUS RHYTHM NORMAL ECG CXR: pending today Colonoscopy: Completed on 06/24/18, results hemorrhoids. Normal. Due in ten years. Sensitizations: Prior transplant: No Blood transfusions: Yes Immunizations: HBV series: Not received, patient encouraged to obtain Pneumovax: Not received, patient encouraged to obtain Influenza vaccine: Not received, patient encouraged to obtain Helen Mcintosh RN Transplant Nephrology Fellow Note REVIEW OF SYSTEMS ROS: Constitutional: negative for fatigue, weight loss or gain. Negative for fevers, chills, night sweats. HEENT: no oral lesions, no odynophagia, no visual difficulties Cardiac: negative for chest pain, pressure, angina, no edema Respiratory: negative for dyspnea, SOB, THOMASON. Gastrointestinal: negative for diarrhea, constipation, bowel habit change. Genitourinary: negative for dysuria, frequency Immunologic/Heme/Lymphatic: negative for anemia, easy bruising, lymph node enlargement Neurologic: No tremor, seizures, confusion. Skin: negative for rash, or other lesion Musculoskeletal: negative for arthritis, gout, myalgias Psychiatric: negative for behavioral change, mood disorders, depression Functional capacity: >4.0, <8.0 moderate effort such as carrying 15lb KARNOFSKY INDEX SCALE (Adult patients aged 18 and older) - Used to rate a patient's functional status before and after a medical procedure: 80 - Normal activity with effort: some signs or symptoms of disease. PHYSICAL EXAMINATION: BP 152/61 (BP Site: Right Arm, BP Position: Sitting, BP Cuff Size: Regular Adult) Pulse 75 Temp 36.5 ?C (97.7 ?F) (Tympanic) Ht 177.8 cm (5' 10) Wt 83.5 kg (184 lb) BMI 26.40 kg/m? Awake and alert, appropriate in converstaion Anicteric, conj noninflamed Supple, no JVP CTA Bilaterally, no wheezes Dual HS, no rub, ESM + Soft, NT, ND No LE edema No rashes/lesions No CVAT No asterixis Good Femoral and DP pulses b/l HD Access: Lt AVF (Maury) thin caliber but good thrill Cancer Screening: Type of Cancer: Screening Criteria: Cervical Females age 21-29: PAP Q3yrs; HPV if PAP abnormal Females age 30-65: PAP AND HPV Q5yrs; OR PAP only Q3yrs Breast Females age 20-39: Clinical Breast Exam Q3yrs Females age 40+: Mammogram AND Clinical Breast Exam Q1yr Prostate Males age 40+: PSA will be checked at evaluation Colon All patients age 50+: colonoscopy Q10yrs or as recommended based on results Lung Patients meeting all of the following criteria will be scheduled for a Chest CT without Contrast at evaluation if they have not had a Chest CT within the past year: 1. Age 55-74 2. Have at least a 30 pack-year smoking history 3. Are still smoking OR have quit smoking within the last 15 yrs Patients that do not meet the criteria above or who had a Chest CT within the past year will have a CXR PA AND Lat at evaluation. Skin All patients: Skin will be examined at evaluation Based upon the above screening criteria, the patient will require: No additional testing is needed at this time. Patient is up to date with cancer screening. Impression: Potentially acceptable candidate Areas of Concern: 1. Will need Dobutamine Stress Test with Echo 2. Depression concerns - Will need psych clearnace We had the opportunity to discuss the following, specific for this patient: 1. In clinic today, we discussed the risks and benefits of kidney transplantation as it pertains to him. In addition, I re-reviewed the various therapy options for end stage renal disease, which includes kidney transplantation, remaining on dialysis, and choosing medical therapy. We discussed the likely outcome of medical therapy, remaining on dialysis, or receiving a kidney transplant. 2. . Risks and benefits of transplantation including overall average increase in life expectancy and higher quality of life with transplantation for most but not all recipients; however, there is during the immediate transplant period a higher risk of that is variable depending on recipient and donor factors. The time period to obtain equal risk to staying on the wait list, and gain of benefit from transplantation is also variable. 3. Types of donor organs discussed with patient, including Living donor (if appropriate), , expanded criteria, donor cardiac (DCD) and CDC-High risk donor types. The relative benefit of living donation over donor transplantation explained. We discussed the possibility of living donors for Mr. Mccrary. 4. We had a lengthy discussion regarding immunosuppression following transplantation. I explained our usual protocols, drugs involved, administration and monitoring. This included the risks of possibly life threatening infection, , and malignancy following transplantation, possible need for dialysis and re-admission to the hospital. I explained the potential outcomes, including uncommon but catastrophic outcome related or not to kidney transplant itself. Pharmacy Consult: Not needed at this time Opportunity to ask questions given. Patient expresses understanding of the information discussed. Communication with referring provider done by letter Discussed with the attending: Additional recs/addendum may follow. Nickolas AMIN Fellow in Transplant Nephrology 09/08/2018 1:15 PM Pager: [phone] I have seen and examined the patient with the resident and fellow team. I have confirmed the joy portions of the history and physical above. I agree with the Assessment and Plan as outlined above. In addition: he appears to be a reasonable transplant candidate. May have higher PRA due to mult. transfusions, Hb improving, 9.5 g/dl on labs today. No sx of hemolysis. Need cardiac eval as above. appears to offer good support. Signed: Anjel Olson MD Referring Provider: VANNESSA BLAKELY I [[id number]] Allergies As of Date: 09/08/2018 (No Known Allergies) Date Reviewed: 09/08/2018 Reviewed by: Rachelle Williamson LPN - Fully Assessed Reason for Visit: Transplant Evaluation [[id number]] Primary Visit Diagnosis:Pre-transplant evaluation for kidney transplant [Z01.818] Other Visit Diagnoses:Anemia of renal disease [D63.1] ESRD on dialysis (HCC) [N18.6, Z99.2] End stage renal disease on dialysis due to type 2 diabetes mellitus (HCC) [E11.22, N18.6, Z99.2] Order(s):HAPTOGLOBIN BLD [SQHAPTO] Order #: [id number] FUTURE LD LACTATE DEHYDRO [SQLD6] Order #: [id number] FUTURE RETIC COUNT [SQRETIC] Order #: [id number] FUTURE Prescriptions as of 09/08/2018 Sig: CITALOPRAM 40 MG TABLET Take 40 mg by mouth once marlo* PANTOPRAZOLE 40 MG TABLET,DEL* Take 40 mg by mouth once marlo* CALCIUM ACETATE 667 MG (169 M* Take 2 tablets by mouth three* ERGOCALCIFEROL (VITAMIN D2) 5* Take 50,000 Units by mouth on* HYDRALAZINE 25 MG TABLET Take 25 mg by mouth three mynor* AMLODIPINE 10 MG TABLET Take 10 mg by mouth once marlo* VITAMIN B COMPLEX-VITAMIN C-F* Take 0.8 mg by mouth daily wi* SIMVASTATIN 20 MG TABLET once daily. SYNTHROID 150 MCG TABLET once daily. Problem List As Of Date 09/08/2018 Noted Resolved Umbilical hernia without mention of obstruction*INVALID FOR* Melena [K92.1] INVALID FOR* Acute blood loss anemia [D62] INVALID FOR* ESRD (end stage renal disease) (HCC) [N18.6] INVALID FOR* DM (diabetes mellitus), type 1 with neurologica*INVALID FOR*09/03/2018 Essential hypertension [I10] INVALID FOR* Blood loss anemia [D50.0] INVALID FOR* More... Hypothyroidism [E03.9] INVALID FOR* Hypoxia [R09.02] INVALID FOR*08/06/2018 Positive fecal occult blood test [R19.5] INVALID FOR* Priority: A Controlled type 2 diabetes mellitus without com*INVALID FOR* Encounter Status:Closed by ANJEL OLSON MD on 09/09/18 CNOV Observed: 09/08/2018 Status: COMPLETED Source: NEAL 3:15 PM [facility] [place] RE[place] Office Visit (TXCTGL) ROBERT MCCRARY ([id number]) 1960 M TRN Date Time Provider Department 09/08/18 3:15 PM [facility]OLOGY [facility] TXCTGL During your visit today, we recorded the following information about you: Temperature Pulse Blood pressure Weight 97.7 degrees 75/minute 152/61 83.5 kg Height 1.778 m Kathrine Zhang MD 09/09/2018 6:04 PM Signed [facility] Urolog[facility] [place] at [facility] Transplant Evaluation CC: Patient is a 58 year old male here for transplant candidacy evaluation. Reason for visit: here for evaluation to be a Kidney Transplant recipient. Referred by: Vannessa Blakely DO ([facility]) [address] [facility] [place] [address] [address] I will communicate with the referring provider by letter and/or shared electronic medical record. HPI: This patient is a 58 year old white male BP 152/61 (BP Site: Left Arm, BP Position: Sitting, BP Cuff Size: Regular Adult) Pulse 75 Temp 36.5 ?C (97.7 ?F) (Tympanic) Ht 177.8 cm (5' 10) Wt 83.5 kg (184 lb) BMI 26.40 kg/m? HPI: 58 y/o male with PMHx of ESRD from DM and HTN here for kidney transplant eval. ? #T2DM diagnosed 11 years ago complicated by DN. No retinopathy or neuropathy but has RLS HTN - 10 years, controlled on medication Hypothyroidism GI Bleed with multiple transfusions: No source of bleeding identified though - was iron deficient, recent hematology consult recommended iron and cont ARSH ? Depression: Never followed up with psych nor treated for it ? He lives with his : They both drive. 2 dogs at home as pets Living donor: possible Not on blood thinner PAOD (TIA non-embolic, CVA non-embolic, amputation, carotid artery stenosis, abnormal PVRs, claudication history, decreased pulses, etc.):No Stroke: NO Claudication: NO Carotid Artery Stenosis: NO Malignancy (including skin cancer): No Hypercoagulable (history of DVT/PE, miscarriages, prior use of anticoagulation, etc.):No Prior transplant: No CKD: Yes: Cause of CKD: DM Hemodialysis, Start date: 03/2018 Living Donors: Yes Residual UO: Less than normal. Last 24 hour test did 3 liters back in January 2018 DM: Yes Diagnosed at age 47, Type 2 and Therapies: diet No longer taking insulin or oral hypoglycemics since starting dialysis. PAST MEDICAL HISTORY Diagnosis Date - Anemia - Depression - DM (diabetes mellitus) (HCC) - ESRD (end stage renal disease) (HCC) - HTN (hypertension) - Hyperlipidemia - Hyperparathyroidism due to renal insufficiency (HCC) - Hyperphosphatemia - Hypothyroid - Iron deficiency - Vitamin D deficiency PAST SURGICAL HISTORY Procedure Laterality Date - FISTULA - HERNIA REPAIR HX 1983 inguinal - REPAIR UMBILICAL JAMES,5+Y/O,REDUC 11/19/12 with mesh Current Outpatient Prescriptions: citalopram (CELEXA) 40 mg tablet Take 40 mg by mouth once daily. pantoprazole DR (PROTONIX) 40 mg tablet Take 40 mg by mouth once daily. calcium acetate 667 mg (169 mg calcium)/5 mL soln Take 2 tablets by mouth three times daily with meals. ergocalciferol, vitamin D2, (VITAMIN D) 50,000 unit capsule Take 50,000 Units by mouth once each week. saturday hydrALAZINE (APRESOLINE) 25 mg tablet Take 25 mg by mouth three times daily. amLODIPine (NORVASC) 10 mg tablet Take 10 mg by mouth once daily. B Complex-Vitamin C-Folic Acid (YOKO-ANNA) 0.8 mg tab Take 0.8 mg by mouth daily with dinner. Every evening SIMVASTATIN 20 mg tablet once daily. SYNTHROID 150 mcg tablet once daily. No current facility-administered medications for this visit. 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 CXR: pending today ? Colonoscopy: Completed on 06/24/18, results hemorrhoids. Normal. Due in ten years. ? Sensitizations: Prior transplant: No Blood transfusions: Yes ? Immunizations: HBV series: Not received, patient encouraged to obtain Pneumovax: Not received, patient encouraged to obtain Influenza vaccine: Not received, patient encouraged to obtain ? Helen Mcintosh RN REVIEW OF SYSTEMS GENERAL: No weight loss, malaise or fevers HEENT: Negative for frequent or significant headaches, No changes in hearing or vision, no nose bleeds or other nasal problems NECK: Negative for lumps, goiter, pain and significant neck swelling RESPIRATORY: Negative for cough, hemoptysis, wheezing CARDIOVASCULAR: Negative for chest pain, minimal leg swelling, GI: No nausea, vomiting, or diarrhea : No history of dysuria, frequency or incontinence SKIN: Negative for lesions, rash, and itching HEMATOLOGY/LYMPHOLOGY: Negative for prolonged bleeding, bruising easily or swollen nodes ENDOCRINE: Negative for cold or heat intolerance, polyuria, polydipsia and goiter NEURO: No history of headaches, syncope, paralysis, seizures or tremors PHYSICAL EXAMINATION: General appearance: Well appearing, alert, in no acute distress, well-hydrated, well nourished. Skin: Skin color, texture, turgor normal, no suspicious rashes or lesions Head: Normocephalic, no masses, lesions, tenderness or abnormalities Eyes: Anicteric sclera. Pupils are equally round and reactive to light. Extraocular movements are intact. Neck: Supple, no adenopathy; thyroid symmetric, normal size, no bruits Lungs: Lungs clear to auscultation. No wheezing, rhonchi, rales Heart: (+)murmur from radiation of fistula Abdomen: Abdomen soft, non-tender. Bowel sounds normal. No masses, incision well healed Extremities: No deformities, edema, Peripheral pulses: ++ Neuro: Gait normal. A: ESRD 2 to DM/HTN Plan:Mr. Mccrary is an acceptable candidate for kidney transplantation pending completion of work up and meeting the rest of the team. Advantages and disadvantages of transplantation versus dialysis were reviewed. Discussed the operative procedure and potential complications. I addressed issues of post-operative recovery and follow up. Few things I have discussed with him a. because of his age, living donor would be ideal for him. b. the importance of compliance c. the frequent travel in the early post op period for monitoring d. We also discussed the transplant procedure and the need for urinary catheter and ureteric stent. I overviewed the issues of delayed graft function, the possible need for dialysis, and the possible need for re-operation during the early postoperative period. I also informed him of the occasional need for blood transfusion and he expressed his understanding and willingness to accept one if the need arises. I mentioned other complications including thromboembolic events, cardiac events, and infection. Lastly I discussed the need for immunosuppressive therapy and the risk associated with this treatment. he would like to proceed 1. CT scan abdomen and pelvis non contrast - retrieve outside film 2. Serology - 3. Cardiac testing I have spent 60 minutes with pt in which 35 minutes was spent on care and counselling Kathrine Zhang MD Referring Provider: VANNESSA BLAKELY I [[id number]] Allergies As of Date: 09/08/2018 (No Known Allergies) Date Reviewed: 09/08/2018 Reviewed by: Rachelle Williamson LPN - Fully Assessed Reason for Visit: Transplant Evaluation [427] Primary Visit Diagnosis:ESRD (end stage renal disease) (HCC) [N18.6] Other Visit Diagnoses:Hypertension, unspecified type [I10] 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 diabetic nephropathy, without long-term current use of insulin (HCC) [E11.21] Prescriptions as of 09/08/2018 Sig: CITALOPRAM 40 MG TABLET Take 40 mg by mouth once marlo* PANTOPRAZOLE 40 MG TABLET,DEL* Take 40 mg by mouth once marlo* CALCIUM ACETATE 667 MG (169 M* Take 2 tablets by mouth three* ERGOCALCIFEROL (VITAMIN D2) 5* Take 50,000 Units by mouth on* HYDRALAZINE 25 MG TABLET Take 25 mg by mouth three mynor* AMLODIPINE 10 MG TABLET Take 10 mg by mouth once marlo* VITAMIN B COMPLEX-VITAMIN C-F* Take 0.8 mg by mouth daily wi* SIMVASTATIN 20 MG TABLET once daily. SYNTHROID 150 MCG TABLET once daily. Problem List As Of Date 09/08/2018 Noted Resolved Umbilical hernia without mention of obstruction*INVALID FOR* Melena [K92.1] INVALID FOR* Acute blood loss anemia [D62] INVALID FOR* ESRD (end stage renal disease) (HCC) [N18.6] INVALID FOR* DM (diabetes mellitus), type 1 with neurologica*INVALID FOR*09/03/2018 Essential hypertension [I10] INVALID FOR* Blood loss anemia [D50.0] INVALID FOR* More... Hypothyroidism [E03.9] INVALID FOR* Hypoxia [R09.02] INVALID FOR*08/06/2018 Positive fecal occult blood test [R19.5] INVALID FOR* Priority: A Controlled type 2 diabetes mellitus without com*INVALID FOR* Encounter Status:Closed by KATHRINE ZHANG MD on 09/09/18 PROGRESS Observed: 09/08/2018 Status: COMPLETED Source: NEAL 1:19 PM [facility] REPOSITORY O ID: [id number] Author: Dominga Song) ROSETTA Rock Service: (none) Author Type: Guest Relations Officer Type: Progress Notes Filed: 09/10/2018 12:50 PM Note Text: PSYCHOSOCIAL EVALUATION FOR KIDNEY TRANSPLANT Social Supports: Pt's and son. Son will need to call and confirm. Financial Concerns: Pt has health insurance (BC/BS) and Medicare A and B. Compliance: Phosphorus can be high, but otherwise dialysis reports good compliance. Mental Health: Anxiety and depression. Should be cleared by psych. A referral was made at the time of the evaluation. Substance Use: Denies history of use/abuse. SIPAT: 15 REFERRAL: Robert Mccrary was referred to Social Work for a psychosocial evaluation to establish if he would be a suitable candidate to receive a kidney transplant. He receives dialysis at [facility] on Sat. The dialysis center phone number is . The pt does not use assistive devices for ambulation. DIALYSIS START DATE: 2017 This social work psychosocial evaluation was completed with Robert Mccrary on September 08, 2018. He was accompanied by his , Monie. Race/Gender: White male [place] Citizen: Yes IDENTIFYING INFORMATION/LIVING SITUATION Robert Mccrary [id number] [facility] [address]. The home [place]. There are not architectural barriers. The home [place] from . Robert Mccrary has been living in this home for 6 years. Robert Mccrary is is independent with all ADL's. Others in household are the pt's and his [id number]-szs. The pt's cares for her 91 y/o mother Oanh Arenas. She is on hospice at this time and they rely on a family living educator to care for her when they are gone. There are two licensed drivers in the home and two working vehicles. Caregiver responsibilities: Aqthtd-ru-oqm caregiving is shared. Pets in the home: two dogs. Pet care precautions reviewed. TRANSPLANT LODGING PLANS FOR PATIENTS WHO LIVE 2.5 OR MORE HOURS AWAY FROM MAIN CAMPUS MEDICAL CENTER: Do you have the financial means to stay in the area for four weeks or more post-transplant? NA COMPREHENSION OF MEDICAL SITUATION Robert Mccrary reports that his kidney disease is due to the medication that he takes for DM type 2. The pt was diagnosed with DM about 10 years ago. His A1c is 5.7 at last check. The pt reports that he no longer takes medications for his DM. It is controlled with his diet. He has also lost 40 pounds. The pt had a fistula placed in April 2018. He had a hernia operation 7 to 8 years ago. Robert Mccrary was able to recall information that was presented to him today during the kidney transplant educational class. Robert Mccrary does understand and, has knowledge of the transplant process, the risks of transplant, and transplant medications. Missed doctor appointments: No. Missed/shortened/rescheduled dialysis appointments: Pt reports that he sometimes shortens or skips once a month. He was hospitalized last month for fluid overload. He had upper respiratory failure and had 22 liters taken off. Pt reports that he stopped three times because the machine was clotting off. He reports that he is losing blood in the machine. He reports that his hemo is low at 5.7. His phosphorus is high and pt reports that he tries to take his binders. He takes them about twice a day. He does not follow a renal diet. He reports that he has had a problem with eating and this affects his labs. He reports that he also has brain fog and the machine is typically running with a yellow light, meaning that he is not getting adequate dialyzation. Knowledge of medications: Pt does not know medications or their use. He was encouraged to learn his medications. Medication Compliance: Pt stated that he forgot to take all of his medications last night. He states that this does not happen often, though he has no system. Recommended used of a pill organizer. Have you ever stopped taking any medication because you lost your insurance you could not afford it? No. Have you stopped taking medication because you felt you didn't need it or because of side-effects? No. Do you have any moral, congregational, or ethical views against transplants or blood transfusions: No. Have you ever been transplanted, evaluated, or listed at another center: No. Potential donor: Yes. SUBSTANCE USE/ABUSE Alcohol: No. Tobacco: Chew. Pt is aware that he needs to quit. Exposure to second hand smoke: No Illegal substances: No. Over the Counter Medications: No. Opioids/Controlled Substances: No. CAGE Questionnaire Have you ever felt you should cut down on your drinking? No. Have people annoyed you by criticizing your drinking? No. Have you ever felt bad or guilty about your drinking? No. 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 LEGAL ENCOUNTERS Currently on probation or parole: No Past or current warrants for arrest: No Substance related legal problems: No Valid drivers license:Yes History of any legal issues not previously mentioned: No MENTAL HEALTH HISTORY Affect: Flat Alert: Alert Orientation: person, place and time Appearance: Unremarkable/appropriate Cognitive Function: Cognition appears relatively intact Mood: Irritable. Are you having thoughts that you would be better off , or of hurting yourself in some way? No. Current mental health diagnoses / current feelings of anxiety or depression: Yes. Previous mental health diagnoses: No. Psychiatric medication: Yes, Citalopram. Who prescribes: Dr. Abran Reveles. Counseling: No Psychiatric services: No History of suicide attempt(s) or ideation: No History of harming self: No History of harming others: No History of psychiatric hospitalization: No Any family history of mental health diagnoses: Yes. Sister has Bipolar. Is a referral to Transplant Psychiatry indicated for further evaluation or screening: Yes, Pt should see psychiatry for depression and anxiety that does not seem to be well controlled with Citalopram. COPING Hobbies/Interests: None. Coping strategies: Pt reports that he has a good support system. Pt reports that he likes alone time. Restorationist affiliation: Mosque. Stressors in life: Health issues. Ever cope by using a substance: No. SOCIAL NARRATIVE Robert Mccrary grew up [place], [place] . He is 58 years of age. Robert Mccrary was raised by both biological parents. He describes childhood as great. His father worked as a research and manager application development. His mother was a nurse. Both are living and still . He describes his relationship with both parents as good. Both are still living. He reports that he has two younger sisters and that they get along. They do not call each other daily but they talk every two or three weeks. Life Changing Events: Yes. Need for kidney transplant. History of Abuse, Assault, or Neglect: No. Parental Information: biological Father: Bernabe Mccrary is 79 and he is in good health. He still lives in his own home. Mother: Kaci Mccrary is 75 and she is good health. She still lives in the home. Sibling Information: Lorena Lane is 54 years old. She has Bipolar Disorder. She lives in [place], [place]. She has a job but pt does not know where she works. She cannot hold a job. Elida Kincaid is 49 years old. She lives in [place], [place] and is in good health. Elida works for [employer]. Relationship History AND Current Status: to Monie for 35 years. Monie is 59 years old. She is in good health. She works as a bass guitar teacher FT. The pt and his met in [place] and knew each other for 3.5 years before marrying. The pt was 23 and Monie was 25. Pregnancies: NA Children: One son, Raymond. He is 26 years old. He lives in [place] and drives a truck. He is not and has no children. The pt reports that he has a good relationship with his son. EDUCATION Highest Educational Level: High School. Robert Mccrary denies academic problems in school. Reading/Comprehension Problems Then or Now: No. Computer Literacy: Yes Access to Home Internet: Yes. EMPLOYMENT Service: No. Eligible for VA Benefits: No. 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 Prescription Coverage: Express Scripts Insurance Policy Duran: Pt Medicare Status: ESRD Medicare A, B. Disability: $2,400 Household Income: $3,500 Savings: No. Do you have credit cards that could be used to pay for transplant medications in the event that you have an $800 to $3000 co- pay? Yes Fund Raising: Provided Pt was given a list of the medications for Kidney TX recipients to learn how his insurance coverage applies. SW informed pt that he must be prepared to cover the copays of his immunosuppression and anti viral medications. Pt was also provided with information about fund raising. CAREGIVER/SUPPORT PLAN Primary Caregiver: Monie, . ? Contact Number: [facility] ? Health Status and Availability of Caregiver: Yes. ? Valid Bond Underwriter's License/Working Vehicle: Yes ? Caregiver Substance Use: No. ? Caregiver Mental Health: Stable. Secondary Caregiver: Raymond (son). He will need to call to verify support. ? Contact Number: ? Health Status and Availability: good ? Valid Bond Underwriter's License/Working Vehicle: Yes ? Caregiver Substance Use: No ? Caregiver Mental Health: Stable. ADVANCE DIRECTIVES No. Have they been requested? Yes, Pt is not interested at this time. He was given forms. PSYCHOSOCIAL RISKS ? Adherence to Treatment Protocols: Compliance is fair. Pt should demonstrate better compliance with binders and renal diet. ? Ability to Understand Transplant Center's System of Care: Yes ? Active Psychiatric Diagnosis: Yes ? Financial Resources or Support: Yes ? Body Image/Scar: No IMPRESSIONS/RECOMMENDATIONS Robert Mccrary will need to be cleared by transplant psychiatry before being listed for kidney transplant. There are psychosocial concerns related to mental health that could have a negative impact on the successful and sustained outcome of a kidney transplant. The pt presented with a blunted affect. He reports that he feels angry much of the time. He denied depression but was sometimes very near tears when talking about his health condition. Pt nearly started an argument with his during the evaluation and accused her of being unreceptive to his need for emotional support. Pt's reports that she notices that the pt is very anxious. The pt reports that his may be his donor. He will need to identify an alternative support group post-transplant if she is the donor. The pt's son will need to confirm his ability to provide support. The pt has health care insurance and reports that he has a credit card in the event that he needs to purchase some of his medications prior to the insurance authorization. The pt denies substance use issues. MIGUELINA contacted [facility] nurse Michelle Polanco RN. She reports that the pt has good compliance with dialysis. She reports that when he has needed to cut his treatment short it was because they did not have Coumadin for the pt and the machine became clogged. The pt had a hospitalization for fluid overload because the dialysis unit was not aware that the pt was not producing as much urine as he had been, and they were not removing enough fluid. The pt's phosphorus is usually a little high, though it was 8 at the last check. Pt admits that he takes binders only twice a day and does not follow a renal diet. He should demonstrate improvement with binders and renal diet as evidenced by a decrease in his phosphorus. If listed, the patient should be scheduled for yearly visits with social work for the following purposes: to review health insurance, changes of caregiver support, changes in financial/employment status, and past or current issues with alcohol or drug use. We reviewed the follow up care sequence, including lab work twice a week and weekly post transplant clinic appointments. We discussed the precautions to take because of being immunosuppressed. Robert Mccrary was advised that it is imperative to adhere to the medical regimen and recovery restrictions. Robert Mchugh Demetra indicated understanding of this information. Robert Mccrary had the opportunity to discuss any issues and questions. Patient was given information and brochures about the kidney transplant process and fund raising options. The patient was given the phone number of the transplant outreach and education social worker to address future concerns. GEORGIA Chatterjee, [facility] Transplant Guest Relations Officer CNS Observed: 09/08/2018 Status: COMPLETED Source: NEAL 1:00 PM [facility] [place] RE[place] Social Work (TXCTGL) ROBERT MCCRARY ([id number]) 1960 M TRN Date Time Provider Department 09/08/18 1:00 PM DOM[facility]A ROCK) TXVANESSA During your visit today, we recorded the following information about you: GEORGIA Chatterjee LSW 09/10/2018 12:50 PM Signed PSYCHOSOCIAL EVALUATION FOR KIDNEY TRANSPLANT Social Supports: Pt's and son. Son will need to call and confirm. Financial Concerns: Pt has health insurance (BC/BS) and Medicare A and B. Compliance: Phosphorus can be high, but otherwise dialysis reports good compliance. Mental Health: Anxiety and depression. Should be cleared by psych. A referral was made at the time of the evaluation. Substance Use: Denies history of use/abuse. SIPAT: 15 REFERRAL: Robert Mccrary was referred to Social Work for a psychosocial evaluation to establish if he would be a suitable candidate to receive a kidney transplant. He receives dialysis at [facility] on Sat. The dialysis center phone number is . The pt does not use assistive devices for ambulation. DIALYSIS START DATE: 2017 This social work psychosocial evaluation was completed with Robert Mccrary on September 08, 2018. He was accompanied by his , Monie. Race/Gender: White male [place] Citizen: Yes IDENTIFYING INFORMATION/LIVING SITUATION Robert Mccrary [id number] [address] [facility] [address]. The home is a ranch. There are not architectural barriers. The home is about one [place] from . Robert Mccrary has been living in this home for 6 years. Robert Mccrary is is independent with all ADL's. Others in household are the pt's and his atslam-et-pyz. The pt's cares for her 91 y/o mother Oanh Arenas. She is on hospice at this time and they rely on a family living educator to care for her when they are gone. There are two licensed drivers in the home and two working vehicles. Caregiver responsibilities: [id number] caregiving is shared. Pets in the home: two dogs. Pet care precautions reviewed. TRANSPLANT LODGING PLANS FOR PATIENTS WHO LIVE 2.5 OR MORE HOURS AWAY FROM MAIN CAMPUS [facility]: Do you have the financial means to stay in the area for four weeks or more post-transplant? NA COMPREHENSION OF MEDICAL SITUATION Robert Mccrary reports that his kidney disease is due to the medication that he takes for DM type 2. The pt was diagnosed with DM about 10 years ago. His A1c is 5.7 at last check. The pt reports that he no longer takes medications for his DM. It is controlled with his diet. He has also lost 40 pounds. The pt had a fistula placed in April 2018. He had a hernia operation 7 to 8 years ago. Robert Mccrary was able to recall information that was presented to him today during the kidney transplant educational class. Robert Mccrary does understand and, has knowledge of the transplant process, the risks of transplant, and transplant medications. Missed doctor appointments: No. Missed/shortened/rescheduled dialysis appointments: Pt reports that he sometimes shortens or skips once a month. He was hospitalized last month for fluid overload. He had upper respiratory failure and had 22 liters taken off. Pt reports that he stopped three times because the machine was clotting off. He reports that he is losing blood in the machine. He reports that his hemo is low at 5.7. His phosphorus is high and pt reports that he tries to take his binders. He takes them about twice a day. He does not follow a renal diet. He reports that he has had a problem with eating and this affects his labs. He reports that he also has brain fog and the machine is typically running with a yellow light, meaning that he is not getting adequate dialyzation. Knowledge of medications: Pt does not know medications or their use. He was encouraged to learn his medications. Medication Compliance: Pt stated that he forgot to take all of his medications last night. He states that this does not happen often, though he has no system. Recommended used of a pill organizer. Have you ever stopped taking any medication because you lost your insurance you could not afford it? No. Have you stopped taking medication because you felt you didn't need it or because of side-effects? No. Do you have any moral, congregational, or ethical views against transplants or blood transfusions: No. Have you ever been transplanted, evaluated, or listed at another center: No. Potential donor: Yes. SUBSTANCE USE/ABUSE Alcohol: No. Tobacco: Chew. Pt is aware that he needs to quit. Exposure to second hand smoke: No Illegal substances: No. Over the Counter Medications: No. Opioids/Controlled Substances: No. CAGE Questionnaire Have you ever felt you should cut down on your drinking? No. Have people annoyed you by criticizing your drinking? No. Have you ever felt bad or guilty about your drinking? No. 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 LEGAL ENCOUNTERS Currently on probation or parole: No Past or current warrants for arrest: No Substance related legal problems: No Valid drivers license:Yes History of any legal issues not previously mentioned: No MENTAL HEALTH HISTORY Affect: Flat Alert: Alert Orientation: person, place and time Appearance: Unremarkable/appropriate Cognitive Function: Cognition appears relatively intact Mood: Irritable. Are you having thoughts that you would be better off , or of hurting yourself in some way? No. Current mental health diagnoses / current feelings of anxiety or depression: Yes. Previous mental health diagnoses: No. Psychiatric medication: Yes, Citalopram. Who prescribes: Dr. Abran Reveles. Counseling: No Psychiatric services: No History of suicide attempt(s) or ideation: No History of harming self: No History of harming others: No History of psychiatric hospitalization: No Any family history of mental health diagnoses: Yes. Sister has Bipolar. Is a referral to Transplant Psychiatry indicated for further evaluation or screening: Yes, Pt should see psychiatry for depression and anxiety that does not seem to be well controlled with Citalopram. COPING Hobbies/Interests: None. Coping strategies: Pt reports that he has a good support system. Pt reports that he likes alone time. Restorationist affiliation: Mosque. Stressors in life: Health issues. Ever cope by using a substance: No. SOCIAL NARRATIVE Robert Mccrary grew up [place], [place] . He is 58 years of age. Robert Mccrary was raised by both biological parents. He describes childhood as great. His father worked as a research and manager application development. His mother was a nurse. Both are living and still . He describes his relationship with both parents as good. Both are still living. He reports that he has two younger sisters and that they get along. They do not call each other daily but they talk every two or three weeks. Life Changing Events: Yes. Need for kidney transplant. History of Abuse, Assault, or Neglect: No. Parental Information: biological Father: Bernabe Mccrary is 79 and he is in good health. He still lives in his own home. Mother: Kaci Mccrary is 75 and she is good health. She still lives in the home. Sibling Information: Lorena Lane is 54 years old. She has Bipolar Disorder. She lives in [place], [place]. She has a job but pt does not know where she works. She cannot hold a job. Elida Kincaid is 49 years old. She lives in [place], [place] and is in good health. Elida works for [employer]. Relationship History AND Current Status: to Monie for 35 years. Monie is 59 years old. She is in good health. She works as a bass guitar teacher FT. The pt and his met in [place] and knew each other for 3.5 years before marrying. The pt was 23 and Monie was 25. Pregnancies: NA Children: One son, Raymond. He is 26 years old. He lives in [place] and drives a truck. He is not and has no children. The pt reports that he has a good relationship with his son. EDUCATION Highest Educational Level: High School. Robert Mchugh Demetra denies academic problems in school. Reading/Comprehension Problems Then or Now: No. Computer Literacy: Yes Access to Home Internet: Yes. EMPLOYMENT Service: No. Eligible for [place] [employer] Benefits: No. 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 Prescription Coverage: Express Scripts Insurance Policy Duran: Pt Medicare Status: ESRD Medicare A, B. Disability: $2,400 Household Income: $3,500 Savings: No. Do you have credit cards that could be used to pay for transplant medications in the event that you have an $800 to $3000 co-pay? Yes Fund Raising: Provided Pt was given a list of the medications for Kidney [place] recipients to learn how his insurance coverage applies. SW informed pt that he must be prepared to cover the copays of his immunosuppression and anti viral medications. Pt was also provided with information about fund raising. CAREGIVER/SUPPORT PLAN Primary Caregiver: Monie, . ? Contact Number: Anam ? Health Status and Availability of Caregiver: Yes. ? Valid Bond Underwriter's License/Working Vehicle: Yes ? Caregiver Substance Use: No. ? Caregiver Mental Health: Stable. Secondary Caregiver: Raymond (son). He will need to call to verify support. ? Contact Number: ? Health Status and Availability: good ? Valid Bond Underwriter's License/Working Vehicle: Yes ? Caregiver Substance Use: No ? Caregiver Mental Health: Stable. ADVANCE DIRECTIVES No. Have they been requested? Yes, Pt is not interested at this time. He was given forms. PSYCHOSOCIAL RISKS ? Adherence to Treatment Protocols: Compliance is fair. Pt should demonstrate better compliance with binders and renal diet. ? Ability to Understand Transplant Center's System of Care: Yes ? Active Psychiatric Diagnosis: Yes ? Financial Resources or Support: Yes ? Body Image/Scar: No IMPRESSIONS/RECOMMENDATIONS Robert Mccrary will need to be cleared by transplant psychiatry before being listed for kidney transplant. There are psychosocial concerns related to mental health that could have a negative impact on the successful and sustained outcome of a kidney transplant. The pt presented with a blunted affect. He reports that he feels angry much of the time. He denied depression but was sometimes very near tears when talking about his health condition. Pt nearly started an argument with his during the evaluation and accused her of being unreceptive to his need for emotional support. Pt's reports that she notices that the pt is very anxious. The pt reports that his may be his donor. He will need to identify an alternative support group post-transplant if she is the donor. The pt's son will need to confirm his ability to provide support. The pt has health care insurance and reports that he has a credit card in the event that he needs to purchase some of his medications prior to the insurance authorization. The pt denies substance use issues. SW contacted [facility] nurse Michelle Polanco RN. She reports that the pt has good compliance with dialysis. She reports that when he has needed to cut his treatment short it was because they did not have Coumadin for the pt and the machine became clogged. The pt had a hospitalization for fluid overload because the dialysis unit was not aware that the pt was not producing as much urine as he had been, and they were not removing enough fluid. The pt's phosphorus is usually a little high, though it was 8 at the last check. Pt admits that he takes binders only twice a day and does not follow a renal diet. He should demonstrate improvement with binders and renal diet as evidenced by a decrease in his phosphorus. If listed, the patient should be scheduled for yearly visits with social work for the following purposes: to review health insurance, changes of caregiver support, changes in financial/employment status, and past or current issues with alcohol or drug use. We reviewed the follow up care sequence, including lab work twice a week and weekly post transplant clinic appointments. We discussed the precautions to take because of being immunosuppressed. Robert Mccrary was advised that it is imperative to adhere to the medical regimen and recovery restrictions. Robert Mccrary indicated understanding of this information. Robert Mccrary had the opportunity to discuss any issues and questions. Patient was given information and brochures about the kidney transplant process and fund raising options. The patient was given the phone number of the transplant outreach and education social worker to address future concerns. [place]IA Chatterjee, [facility] Transplant Guest Relations Officer Referring Provider: VANNESSA BLAKELY I [[id number]] Allergies As of Date: 09/08/2018 (No Known Allergies) Date Reviewed: 09/08/2018 Reviewed by: Rachelle Williamson LPN - Fully Assessed Prescriptions as of 09/08/2018 Sig: CITALOPRAM 40 MG TABLET Take 40 mg by mouth once marlo* PANTOPRAZOLE 40 MG TABLET,DEL* Take 40 mg by mouth once marlo* CALCIUM ACETATE 667 MG (169 M* Take 2 tablets by mouth three* ERGOCALCIFEROL (VITAMIN D2) 5* Take 50,000 Units by mouth on* HYDRALAZINE 25 MG TABLET Take 25 mg by mouth three mynor* AMLODIPINE 10 MG TABLET Take 10 mg by mouth once marlo* VITAMIN B COMPLEX-VITAMIN C-F* Take 0.8 mg by mouth daily wi* SIMVASTATIN 20 MG TABLET once daily. SYNTHROID 150 MCG TABLET once daily. Problem List As Of Date 09/08/2018 Noted Resolved Umbilical hernia without mention of obstruction*INVALID FOR* Melena [K92.1] INVALID FOR* Acute blood loss anemia [D62] INVALID FOR* ESRD (end stage renal disease) (HCC) [N18.6] INVALID FOR* DM (diabetes mellitus), type 1 with neurologica*INVALID FOR*09/03/2018 Essential hypertension [I10] INVALID FOR* Blood loss anemia [D50.0] INVALID FOR* More... Hypothyroidism [E03.9] INVALID FOR* Hypoxia [R09.02] INVALID FOR*08/06/2018 Positive fecal occult blood test [R19.5] INVALID FOR* Priority: A Controlled type 2 diabetes mellitus without com*INVALID FOR* Encounter Status:Closed by DOMINGA ROCK on 09/10/18 XR CHEST 2V FRONTAL/LAT Observed: 09/08/2018 Status: F Source: [place]AL 12:43 PM [facility] [place] [facility] * * *Final Report* * * DATE OF EXAM: Sep 08 2018 12:43PM SE[facility] [id number] - XR CHEST 2V FRONTAL/LAT / PROCEDURE REASON: Preop examination * * * * Physician Interpretation * * * * EXAMINATION: CHEST RADIOGRAPH (2 VIEW FRONTAL and LATERAL) CLINICAL HISTORY: Preop examination MQ: XC2_5 Comparison: None RESULT: Lines, tubes, and devices: Right IJ tunneled central venous catheter terminates in the lower SVC. Lungs and pleura: No consolidation. Localized opacity overlying the left sixth anterior rib may represent summation shadow. Focal area of atelectasis or inflammation/infection not completely excluded, as there are some localized opacities overlying the heart on the lateral view. Nipple shadow also possible. Follow-up chest radiograph to reassess the finding may be helpful. No lung mass. No pleural effusion. Cardiomediastinal silhouette: Normal cardiomediastinal silhouette. Other: Stable skeletal structures. IMPRESSION: See body of the report Manager [place]: PSCB Transcribe Date/Time: Sep 08 2018 4:08P Dictated by : LES KHAN MD This examination was interpreted and the report reviewed and electronically signed by: LES KHAN MD on Sep 08 2018 4:12PM EST [id number] PROGRESS Observed: 09/08/2018 Status: COMPLETED Source: [place] 12:42 PM [facility] [facility] HNO ID: [id number] Author: Tamera Plasencia (RtNikkie Wood Service: Radiology Author Type: Geriatric Social Work Professor Type: Progress Notes Filed: 09/08/2018 12:43 PM Note Text: Radiology Service Progress Note PATIENT NAME: Robert Mccrary DATE OF SERVICE: September 08, 2018 TIME: 12:42 PM PATIENT IDENTITY VERIFICATION COMPLETED USING TWO (2) METHODS: Patient confirmed name verbally and Date of . PATIENT GENDER DATA: Male PATIENT RELEVANT IMPLANT DATA REVIEWED: Yes RADIOLOGY DEPARTMENT: General X-ray: Exam(s) Completed: Chest X-Ray PERIPHERAL IV DATA: Not applicable SIGNED BY: RT Elton September 08, 2018 12:42 PM PROGRESS Observed: 09/08/2018 Status: COMPLETED Source: NEAL 11:16 AM [facility] [place] [place] [facility] HNO ID: [id number] Author: Aries Plasencia (Rn) Yung RN Service: (none) Author Type: Registered Nurse Type: Progress Notes Filed: 09/08/2018 11:22 AM Note Text: PRE-TRANSPLANT PATIENT EDUCATION NOTE Type of Transplant: Kidney Informed Consent for Evaluation signed: Yes Multiple Listing Form signed: Yes READINESS TO LEARN: Cognitive Ability: Alert and oriented Motivation to Learn: Interested Family Support: High - Very involved in pt care Instruction Provided to: Patient and family member Patient Learns Best by: Multiple Methods Factors Affecting Learning: None Physical Limitations Affecting Learning: None LEARNING RESPONSE: Diagnosis: DM/HTN Education Topics/Teaching Points: -Discussed living donor evaluation and approval process. -Discussed the evaluation and listing process. -Discussed the different types of donors (KDPI scoring, DCD, High Risk). -Explained EPTS scoring and how it is calculated. -Explained the surgical procedure and potential complications, surgeons, hospital stay at the time of transplant. -Explained lifetime immunosuppression therapy and frequency of blood draws/labs post-op and post-op course of treatment. -Reviewed National and [facility] outcomes from the most recent SRTR center-specific report; a copy of the program summary was given to the patient.? -Explained that if the transplant is not performed at a Medicare-approved transplant center it could affect the ability to have immunosuppressive medications paid under Medicare Part B. ? Supplemental Material: -Pre-Transplant Patient Education Binder -UNOS: Questions AND Answers for Transplant Candidates about Multiple Listing and Waiting Time Transfer -UNOS: Questions AND Answers for Transplant Candidates about Kidney Allocation Policy -Current SRTR Program Summary (Release date: 09/02/2018) -Informed Consent for Transplant Program Participation patient education packet -National Kidney Registry pamphlet: Yes Method of Instruction: Group class instruction Written instruction - handouts Verbal instruction Video Patient/Family Response: Questions were asked and all questions were answered. Follow-Up Plan: Patient instructed to call with any further issues Referral/Recommendation: None Aries Barragan RN Pre-Clinical Radiologist PROGRESS Observed: 09/08/2018 Status: COMPLETED Source: NEAL 10:31 AM [facility] [place] [place] [facility] HNO ID: [id number] Author: Anjel Olson Service: (none) Author Type: Physician Type: Progress Notes Filed: 09/09/2018 9:20 AM Note Text: [facility] Transplant Evaluation CC: Patient is a 58 year old male here for transplant candidacy evaluation. Reason for visit: here for evaluation to be a Kidney Transplant recipient. Referred by: Vannessa Blakely DO ([facility]) [id number] [facility] [place] [address] I will communicate with the referring provider by letter and/or shared electronic medical record. HPI: 58 y/o male with PMHx of ESRD from DM and HTN here for kidney transplant eval. # T2DM diagnosed 11 years ago complicated by DN. No retinopathy or neuropathy but has RLS # HTN - 10 years, controlled on medication # Hypothyroidism # GI Bleed with multiple transfusions: No source of bleeding identified though - was iron deficient, recent hematology consult recommended iron and cont ARSH # Depression: Never followed up with psych nor treated for it #HD, [facility] [place] TTS 4h/session EDW 77 Kg He lives with his : They both drive. 2 dogs at home as pets. PAOD (TIA non-embolic, CVA non-embolic, amputation, carotid artery stenosis, abnormal PVRs, claudication history, decreased pulses, etc.):No Stroke: NO Claudication: NO Carotid Artery Stenosis: NO Malignancy (including skin cancer): No Hypercoagulable (history of DVT/PE, miscarriages, prior use of anticoagulation, etc.): No Prior transplant: No CKD: Yes: Cause of CKD: DM Hemodialysis, Start date: 03/2018 Living Donors: Yes Residual UO: Less than normal. Last 24 hour test did 3 liters back in January 2018 DM: Yes Diagnosed at age 47, Type 2 and Therapies: diet No longer taking insulin or oral hypoglycemics since starting dialysis. PAST MEDICAL HISTORY Diagnosis Date - Anemia - Depression - DM (diabetes mellitus) (HCC) - ESRD (end stage renal disease) (HCC) - HTN (hypertension) - Hyperlipidemia - Hyperparathyroidism due to renal insufficiency (HCC) - Hyperphosphatemia - Hypothyroid - Iron deficiency - Vitamin D deficiency PAST SURGICAL HISTORY Procedure Laterality Date - FISTULA - HERNIA REPAIR HX 1983 inguinal - REPAIR UMBILICAL JAMES,5+Y/O,REDUC 11/19/12 with mesh Current Outpatient Prescriptions: citalopram (CELEXA) 40 mg tablet Take 40 mg by mouth once daily. pantoprazole DR (PROTONIX) 40 mg tablet Take 40 mg by mouth once daily. calcium acetate 667 mg (169 mg calcium)/5 mL soln Take 2 tablets by mouth three times daily with meals. ergocalciferol, vitamin D2, (VITAMIN D) 50,000 unit capsule Take 50,000 Units by mouth once each week. saturday hydrALAZINE (APRESOLINE) 25 mg tablet Take 25 mg by mouth three times daily. amLODIPine (NORVASC) 10 mg tablet Take 10 mg by mouth once daily. B Complex-Vitamin C-Folic Acid (YOKO-ANNA) 0.8 mg tab Take 0.8 mg by mouth daily with dinner. Every evening SIMVASTATIN 20 mg tablet once daily. SYNTHROID 150 mcg tablet once daily. No current facility-administered medications for this visit. FAMILY HISTORY Problem Relation Age of Onset - Alcohol/Drug Sister - Stroke Father - Heart Father - Colon Cancer Father - Diabetes Mother - Hypertension Mother - Arthritis Mother Family Status Relation Status - Sis (Not Specified) - Fa (Not Specified) - Mo (Not Specified) Social History Marital status: Spouse name: Years of education: Number of children: Social History Main Topics Smoking status: Never Smoker Smokeless tobacco: Current User Types: Snuff Pre-transplant testing: Cardiac: EKG 08/03/18- Diagnosis:NORMAL SINUS RHYTHM NORMAL ECG CXR: pending today Colonoscopy: Completed on 06/24/18, results hemorrhoids. Normal. Due in ten years. Sensitizations: Prior transplant: No Blood transfusions: Yes Immunizations: HBV series: Not received, patient encouraged to obtain Pneumovax: Not received, patient encouraged to obtain Influenza vaccine: Not received, patient encouraged to obtain Helen Mcintosh RN Transplant Nephrology Fellow Note REVIEW OF SYSTEMS ROS: Constitutional: negative for fatigue, weight loss or gain. Negative for fevers, chills, night sweats. HEENT: no oral lesions, no odynophagia, no visual difficulties Cardiac: negative for chest pain, pressure, angina, no edema Respiratory: negative for dyspnea, SOB, THOMASON. Gastrointestinal: negative for diarrhea, constipation, bowel habit change. Genitourinary: negative for dysuria, frequency Immunologic/Heme/Lymphatic: negative for anemia, easy bruising, lymph node enlargement Neurologic: No tremor, seizures, confusion. Skin: negative for rash, or other lesion Musculoskeletal: negative for arthritis, gout, myalgias Psychiatric: negative for behavioral change, mood disorders, depression Functional capacity: >4.0, <8.0 moderate effort such as carrying 15lb KARNOFSKY INDEX SCALE (Adult patients aged 18 and older) - Used to rate a patient's functional status before and after a medical procedure: 80 - Normal activity with effort: some signs or symptoms of disease. PHYSICAL EXAMINATION: BP 152/61 (BP Site: Right Arm, BP Position: Sitting, BP Cuff Size: Regular Adult) Pulse 75 Temp 36.5 ?C (97.7 ?F) (Tympanic) Ht 177.8 cm (5' 10) Wt 83.5 kg (184 lb) BMI 26.40 kg/m? Awake and alert, appropriate in converstaion Anicteric, conj noninflamed Supple, no JVP CTA Bilaterally, no wheezes Dual HS, no rub, ESM + Soft, NT, ND No LE edema No rashes/lesions No CVAT No asterixis Good Femoral and DP pulses b/l HD Access: Lt AVF (Maury) thin caliber but good thrill Cancer Screening: Type of Cancer: Screening Criteria: Cervical Females age 21-29: PAP Q3yrs; HPV if PAP abnormal Females age 30-65: PAP AND HPV Q5yrs; OR PAP only Q3yrs Breast Females age 20-39: Clinical Breast Exam Q3yrs Females age 40+: Mammogram AND Clinical Breast Exam Q1yr Prostate Males age 40+: PSA will be checked at evaluation Colon All patients age 50+: colonoscopy Q10yrs or as recommended based on results Lung Patients meeting all of the following criteria will be scheduled for a Chest CT without Contrast at evaluation if they have not had a Chest CT within the past year: 1. Age 55-74 2. Have at least a 30 pack-year smoking history 3. Are still smoking OR have quit smoking within the last 15 yrs Patients that do not meet the criteria above or who had a Chest CT within the past year will have a CXR PA AND Lat at evaluation. Skin All patients: Skin will be examined at evaluation Based upon the above screening criteria, the patient will require: No additional testing is needed at this time. Patient is up to date with cancer screening. Impression: Potentially acceptable candidate Areas of Concern: 1. Will need Dobutamine Stress Test with Echo 2. Depression concerns - Will need psych clearnace We had the opportunity to discuss the following, specific for this patient: 1. In clinic today, we discussed the risks and benefits of kidney transplantation as it pertains to him. In addition, I re-reviewed the various therapy options for end stage renal disease, which includes kidney transplantation, remaining on dialysis, and choosing medical therapy. We discussed the likely outcome of medical therapy, remaining on dialysis, or receiving a kidney transplant. 2. . Risks and benefits of transplantation including overall average increase in life expectancy and higher quality of life with transplantation for most but not all recipients; however, there is during the immediate transplant period a higher risk of that is variable depending on recipient and donor factors. The time period to obtain equal risk to staying on the wait list, and gain of benefit from transplantation is also variable. 3. Types of donor organs discussed with patient, including Living donor (if appropriate), , expanded criteria, donor cardiac (DCD) and CDC-High risk donor types. The relative benefit of living donation over donor transplantation explained. We discussed the possibility of living donors for Mr. Mccrary. 4. We had a lengthy discussion regarding immunosuppression following transplantation. I explained our usual protocols, drugs involved, administration and monitoring. This included the risks of possibly life threatening infection, , and malignancy following transplantation, possible need for dialysis and re-admission to the hospital. I explained the potential outcomes, including uncommon but catastrophic outcome related or not to kidney transplant itself. Pharmacy Consult: Not needed at this time Opportunity to ask questions given. Patient expresses understanding of the information discussed. Communication with referring provider done by letter Discussed with the attending: Additional recs/addendum may follow. Nickolas AMIN Fellow in Transplant Nephrology 09/08/2018 1:15 PM Pager: [phone] I have seen and examined the patient with the resident and fellow team. I have confirmed the joy portions of the history and physical above. I agree with the Assessment and Plan as outlined above. In addition: he appears to be a reasonable transplant candidate. May have higher PRA due to mult. transfusions, Hb improving, 9.5 g/dl on labs today. No sx of hemolysis. Need cardiac eval as above. appears to offer good support. Signed: Anjel Olson MD CNCNPATED Observed: 09/08/2018 Status: COMPLETED Source: [place] 10:15 AM [facility] [place] Education (DTBAMN) ROBERT MCCRARY ([id number]) 1960 M TRN Date Time Provider Department 09/08/18 10:15 AM KAREN PEREIRA (JESSICA) DTBAMN Reason for Visit: Patient Education [91] Assessment [673] Progress Notes: Karen Pereira RD 09/09/2018 9:32 AM Signed AMBULATORY PATIENT EDUCATION NOTE - Shared Nutrition Group TOPIC: Pre-transplant nutrition evaluation for kidney recipient. PRE-CLASS SCREEN: 1. Have you had any unintentional weight loss in the last 3 months? Yes NUTRITION FOCUSED PHYSICAL EXAM: Subcutaneous Fat Loss Orbital Mild Triceps Mild Mid-axillary at the iliac crest Unable to determine at this time Muscle Loss Locations: Temporalis Mild Pectoralis Unable to determine at this time Deltoids Unable to determine at this time Interosseous Mild Latissimus dorsi, trapezius Unable to determine at this time Quadriceps Mild Gastrocnemius Mild Potential micronutrient deficiency revealed in: No deficiency identified Edema: No Ascites: No 2. Assessment of Functional Status: No functional impairment, normal with no limitations 3. Are you having difficulty chewing or swallowing?No 4. Have you had a decrease in your intake or poor appetite greater than 2 weeks? No READINESS TO LEARN: Cognitive Ability: Alert and oriented Motivation To Learn: Interested Family Support: High - Very involved in pt care Instruction Provided To: Patient and Spouse Patient Learns Best By: Multiple Methods Factors Affecting Learning: None Physical Limitations Affecting Learning: None Method of Instruction: Group class LEARNING RESPONSE Patient/Family verbalizes understanding of pre-operative instructions and correct actions to take to follow pre-operative instructions. Nutrition Diagnosis: Food and nutrition related knowledge deficit, related to; lack of prior exposure to information , as evidenced by client has no prior knowledge of need for food and nutrition - related information There is no height or weight on file to calculate BMI. Resting Metabolic Rate: Resting Metabolic Rate: 1648 Educational materials provided: Sodium controlled guidelines and Healthy Plate Patient participated in a pre-transplant shared nutrition group class which reviewed the following nutrition principles: 1. Try to eat 4-5 small meals/snacks daily. 2. Combine a lean protein with a complex carbohydrate for improved energy levels. 3. Limit sodium intake by avoiding frozen meals and take-out food. 4. Consider a liquid supplement if you are unable to tolerate solid foods 5. Choose whole foods whenever possible. If choosing processed foods (boxed, canned, frozen, etc), look for those with no added salt or sugar. If choosing frozen dinners, choose those with less than 600 milligrams sodium. Patient's nutrition status during pretransplant evaluation demonstrates mild malnutrition and a nutrition care plan has been outlined to address the patient's malnutrition in preparation for transplantation. Patient endorses a 40 lb weight loss within the past 3 months due to lack of appetite and recent hospitalization. However, he does states at this point he thinks his appetite his slowly improving. Does have mild signs of fat/muscle wasting. He is consuming ~2 meals per day and no protein shakes. Him and his are motivated to improve his nutritional status. Patient is to follow-up with nutrition services after surgery. Referred/Supervised by: martha/Americo Consult Billing Type: Initial Assessment/15 minutes, 2 increment(s), 30 minutes SIGNATURE: Karen Pereira RD PATIENT NAME: Robert Mccrary DATE: September 08, 2018 TIME: 9:55 AM PAGER: [phone] Primary Visit Diagnosis:Awaiting organ transplant status [Z76.82] Other Visit Diagnosis:Dietary counseling and surveillance [Z71.3] During your visit today, we recorded the following information about you: Allergies As of Date: 09/08/2018 (No Known Allergies) Date Reviewed: 09/08/2018 Reviewed by: Rachelle Williamson LPN - Fully Assessed Prescriptions as of 09/08/2018 Sig: CITALOPRAM 40 MG TABLET Take 40 mg by mouth once marlo* PANTOPRAZOLE 40 MG TABLET,DEL* Take 40 mg by mouth once marlo* CALCIUM ACETATE 667 MG (169 M* Take 2 tablets by mouth three* ERGOCALCIFEROL (VITAMIN D2) 5* Take 50,000 Units by mouth on* HYDRALAZINE 25 MG TABLET Take 25 mg by mouth three mynor* AMLODIPINE 10 MG TABLET Take 10 mg by mouth once marlo* VITAMIN B COMPLEX-VITAMIN C-F* Take 0.8 mg by mouth daily wi* SIMVASTATIN 20 MG TABLET once daily. SYNTHROID 150 MCG TABLET once daily. Encounter Status:Closed by KAREN PEREIRA on 09/09/18 PROGRESS Observed: 09/08/2018 Status: COMPLETED Source: NEAL 9:55 AM [facility] [place] REPOSITORY [facility] ID: [id number] Author: Karen (Jessica) Kelli Service: (none) Author Type: Registered Dietitian Type: Progress Notes Filed: 09/09/2018 9:32 AM Note Text: AMBULATORY PATIENT EDUCATION NOTE - Shared Nutrition Group TOPIC: Pre-transplant nutrition evaluation for kidney recipient. PRE-CLASS SCREEN: 1. Have you had any unintentional weight loss in the last 3 months? Yes NUTRITION FOCUSED PHYSICAL EXAM: Subcutaneous Fat Loss Orbital Mild Triceps Mild Mid-axillary at the iliac crest Unable to determine at this time Muscle Loss Locations: Temporalis Mild Pectoralis Unable to determine at this time Deltoids Unable to determine at this time Interosseous Mild Latissimus dorsi, trapezius Unable to determine at this time Quadriceps Mild Gastrocnemius Mild Potential micronutrient deficiency revealed in: No deficiency identified Edema: No Ascites: No 2. Assessment of Functional Status: No functional impairment, normal with no limitations 3. Are you having difficulty chewing or swallowing?No 4. Have you had a decrease in your intake or poor appetite greater than 2 weeks? No READINESS TO LEARN: Cognitive Ability: Alert and oriented Motivation To Learn: Interested Family Support: High - Very involved in pt care Instruction Provided To: Patient and Spouse Patient Learns Best By: Multiple Methods Factors Affecting Learning: None Physical Limitations Affecting Learning: None Method of Instruction: Group class LEARNING RESPONSE Patient/Family verbalizes understanding of pre-operative instructions and correct actions to take to follow pre-operative instructions. Nutrition Diagnosis: Food and nutrition related knowledge deficit, related to; lack of prior exposure to information , as evidenced by client has no prior knowledge of need for food and nutrition - related information There is no height or weight on file to calculate BMI. Resting Metabolic Rate: Resting Metabolic Rate: 1648 Educational materials provided: Sodium controlled guidelines and Healthy Plate Patient participated in a pre-transplant shared nutrition group class which reviewed the following nutrition principles: 1. Try to eat 4-5 small meals/snacks daily. 2. Combine a lean protein with a complex carbohydrate for improved energy levels. 3. Limit sodium intake by avoiding frozen meals and take-out food. 4. Consider a liquid supplement if you are unable to tolerate solid foods 5. Choose whole foods whenever possible. If choosing processed foods (boxed, canned, frozen, etc), look for those with no added salt or sugar. If choosing frozen dinners, choose those with less than 600 milligrams sodium. Patient's nutrition status during pretransplant evaluation demonstrates mild malnutrition and a nutrition care plan has been outlined to address the patient's malnutrition in preparation for transplantation. Patient endorses a 40 lb weight loss within the past 3 months due to lack of appetite and recent hospitalization. However, he does states at this point he thinks his appetite his slowly improving. Does have mild signs of fat/muscle wasting. He is consuming ~2 meals per day and no protein shakes. Him and his are motivated to improve his nutritional status. Patient is to follow-up with nutrition services after surgery. Referred/Supervised by: martha/Americo Consult Billing Type: Initial Assessment/15 minutes, 2 increment(s), 30 minutes SIGNATURE: Karen Pereira RD PATIENT NAME: Robert Mccrary DATE: September 08, 2018 TIME: 9:55 AM PAGER: [phone] CNOV Observed: 09/08/2018 Status: COMPLETED Source: NEAL 7:45 AM [facility] [place] RE[facility] Office Visit (TXCTGL) DEMETRAROBERT Squires ([id number]) 1960 M [facility] Date Time Provider Department 09/08/18 7:45 AM PRE TX GROUP EDUCATION TXCTGL During your visit today, we recorded the following information about you: Aries Barragan RN, RN 09/08/2018 11:22 AM Signed PRE-TRANSPLANT PATIENT EDUCATION NOTE Type of Transplant: Kidney Informed Consent for Evaluation signed: Yes Multiple Listing Form signed: Yes READINESS TO LEARN: Cognitive Ability: Alert and oriented Motivation to Learn: Interested Family Support: High - Very involved in pt care Instruction Provided to: Patient and family member Patient Learns Best by: Multiple Methods Factors Affecting Learning: None Physical Limitations Affecting Learning: None LEARNING RESPONSE: Diagnosis: DM/HTN Education Topics/Teaching Points: -Discussed living donor evaluation and approval process. -Discussed the evaluation and listing process. -Discussed the different types of donors (KDPI scoring, DCD, High Risk). -Explained EPTS scoring and how it is calculated. -Explained the surgical procedure and potential complications, surgeons, hospital stay at the time of transplant. -Explained lifetime immunosuppression therapy and frequency of blood draws/labs post-op and post-op course of treatment. -Reviewed National and [facility] outcomes from the most recent SRTR center-specific report; a copy of the program summary was given to the patient.? -Explained that if the transplant is not performed at a Medicare-approved transplant center it could affect the ability to have immunosuppressive medications paid under Medicare Part B. ? Supplemental Material: -Pre-Transplant Patient Education Binder -UNOS: Questions AND Answers for Transplant Candidates about Multiple Listing and Waiting Time Transfer -UNOS: Questions AND Answers for Transplant Candidates about Kidney Allocation Policy -Current SRTR Program Summary (Release date: 09/02/2018) -Informed Consent for Transplant Program Participation patient education packet -National Kidney Registry pamphlet: Yes Method of Instruction: Group class instruction Written instruction - handouts Verbal instruction Video Patient/Family Response: Questions were asked and all questions were answered. Follow-Up Plan: Patient instructed to call with any further issues Referral/Recommendation: None Aries Barragan RN Pre-Clinical Radiologist Referring Provider: VANNESSA BLAKELY I [[id number]] Allergies As of Date: 09/08/2018 (No Known Allergies) Date Reviewed: 09/08/2018 Reviewed by: Karen Pereira - Fully Assessed Reason for Visit: Patient Education [91] Primary Visit Diagnosis:Pre-transplant evaluation for ESRD (end stage renal disease) [Z01.818] Prescriptions as of 09/08/2018 Sig: CITALOPRAM 40 MG TABLET Take 40 mg by mouth once amrlo* PANTOPRAZOLE 40 MG TABLET,DEL* Take 40 mg by mouth once marlo* CALCIUM ACETATE 667 MG (169 M* Take 2 tablets by mouth three* ERGOCALCIFEROL (VITAMIN D2) 5* Take 50,000 Units by mouth on* HYDRALAZINE 25 MG TABLET Take 25 mg by mouth three mynor* AMLODIPINE 10 MG TABLET Take 10 mg by mouth once marlo* VITAMIN B COMPLEX-VITAMIN C-F* Take 0.8 mg by mouth daily wi* SIMVASTATIN 20 MG TABLET once daily. SYNTHROID 150 MCG TABLET once daily. Problem List As Of Date 09/08/2018 Noted Resolved Umbilical hernia without mention of obstruction*INVALID FOR* Melena [K92.1] INVALID FOR* Acute blood loss anemia [D62] INVALID FOR* ESRD (end stage renal disease) (HCC) [N18.6] INVALID FOR* DM (diabetes mellitus), type 1 with neurologica*INVALID FOR*09/03/2018 Essential hypertension [I10] INVALID FOR* Blood loss anemia [D50.0] INVALID FOR* More... Hypothyroidism [E03.9] INVALID FOR* Hypoxia [R09.02] INVALID FOR*08/06/2018 Positive fecal occult blood test [R19.5] INVALID FOR* Priority: A Controlled type 2 diabetes mellitus without com*INVALID FOR* Encounter Status:Closed by ARIES BARRAGAN on 09/08/18 EMPERATRIZ ABS GR + CBC Collected: 09/03/2018 Status: F Source: NEAL 2:00 PM [facility] [place] REPOSITORY TYPE CODE TESTS RESULT OUT OF REFERENCE UNITS RANGE LAB WWBC 3.70-11.00 k/uL [facility] High WBC 11.47 LAB WRBC 4.20-6.00 m/uL Low [facility] RBC 3.31 LAB WHGB 13.0-17.0 g/dL Low [place] Hemoglobin 8.6 LAB WHCT 39.0-51.0 % Low [place] Hematocrit 29.4 LAB WMCV 80.0-100.0 fL Savage MCV 88.8 LAB WMCH 26.0-34.0 pg Savage MCH 26.0 LAB WMCHC 30.5-36.0 g/dL Low [place] MCHC 29.3 LAB WRDW 11.5-15.0 % [place] RDW 14.4 LAB WPLT 150-400 k/uL [place] High Platelet Cnt 426 LAB WMPV 9.0-12.7 fL Low Savage MPV 8.5 Result Comment: Test performed at: [facility], [address] [place] [address]. LAB ABGRAN 1.45-7.50 k/uL Absol Gran 6.63 Count FERRITIN Collected: 09/03/2018 Status: F Source: NEAL 1:59 PM [facility] [place] REPOSITORY TYPE CODE TESTS RESULT OUT OF REFERENCE UNITS RANGE LAB FERR 30.3-565.7 ng/mL Ferritin 310.9 Performed By: #### FERR, IRON, B12, SERFOL, EPO, MMA #### [facility] [address] [address] #### VITB6 #### [facility] [address] [place] [address] [phone] IRON AND TIBC Collected: 09/03/2018 Status: F Source: NEAL 1:59 PM [facility] [place] [facility] TYPE CODE TESTS RESULT OUT OF REFERENCE UNITS RANGE LAB IRN 41-186 ug/dL Low Iron 29 LAB TIBC 232-386 ug/dL Low TIBC 220 LAB SAT 15-57 % Low Transferrin Saturatn 13 Performed By: #### FERR, IRON, B12, SERFOL, EPO, MMA #### [place] [id number] [place] [address] #### VITB6 #### [facility] [address] [place] [address] [phone] VITAMIN B12 Collected: 09/03/2018 Status: F Source: NEAL 1:59 PM [facility] [place] RE[facility] TYPE CODE TESTS RESULT OUT OF REFERENCE UNITS RANGE LAB B12 232-1245 pg/mL Vitamin B12 920 Performed By: #### FERR, IRON, B12, SERFOL, EPO, MMA #### [facility] [address] [address] #### VITB6 #### [facility] [address] [place] [address] [phone] FOLATE, SERUM Collected: 09/03/2018 Status: F Source: NEAL 1:59 PM [facility] [place] RE[facility] TYPE CODE TESTS RESULT OUT OF REFERENCE UNITS RANGE LAB SERFOL >4.7 ng/mL Folate, >20.0 Serum Result Comment: A result of > 20 ng/mL is not necessarily indicative of a pathologic or treatable condition: it reflects a limitation of the test methodology. Assay reference range: 4.8 to 24.2 ng/mL. Suitable for detection of folate deficiency. Reference: Folate III (Folate III) [package insert V 1.0 [place]]. Sly [employer]ibe[employer], [place], [place]: September 2015. Performed By: #### FERR, IRON, B12, SERFOL, EPO, MMA #### [address] [place] [address] [place] [phone] #### VITB6 #### [facility] [address] [address] [phone] EPO Collected: 09/03/2018 Status: F Source: NEAL 1:59 PM [facility] [place] RE[place] TYPE CODE TESTS RESULT OUT OF RANGE REFERENCE UNITS LAB EPO 2.6-18.5 mIU/mL High EPO 55.8 Result Comment: Test analyzed by the Karime DxI method. Performed By: #### FERR, IRON, B12, SERFOL, EPO, MMA #### [place] [phone] #### VITB6 #### [facility] [address] [address] [phone] METHYLMALONIC ACID Collected: 09/03/2018 Status: F Source: NEAL 1:59 PM [facility] [place] RE[facility] TYPE CODE TESTS RESULT OUT OF REFERENCE UNITS RANGE LAB MMA 79-376 nmol/L Methylmalonic High Acid 681 Result Comment: This test was developed and its performance characteristics determined by [facility]'s [facility] [place] (-[facility]). It has not been cleared or approved by the FDA. -[facility] is regulated under CLIA as qualified to perform high-complexity testing. This test is used for clinical purposes. It should not be regarded as investigational or for research. Performed By: #### FERR, IRON, B12, SERFOL, EPO, MMA #### [place] [id number] [place] [address] #### VITB6 #### [facility] [address] [address] [phone] VITAMIN B6 PLASMA Collected: 09/03/2018 Status: F Source: NEAL 1:59 PM [facility] [place] RE[place] TYPE CODE TESTS RESULT OUT OF REFERENCE UNITS RANGE LAB VITB6 20.0-125.0 nmol/L Vitamin B6 84.2 Plasma Result Comment: (NOTE) INTERPRETIVE INFORMATION: Vitamin B6 (Pyridoxal 5-Phosphate) Pyridoxal 5'-phosphate measured in a specimen collected following an 8-hour or overnight fast accurately indicates vitamin B6 nutritional status. Non-fasting specimen concentration reflects recent vitamin intake. Test developed and characteristics determined by [facility]. See Compliance Statement B: [employer] Performed by [facility], [address] [place] [id number] [email or web address], Mohinder Kebede MD, Lab. Director Performed By: #### FERR, IRON, B12, SERFOL, EPO, MMA #### [facility] [address] [place], [place] [address] #### VITB6 #### [facility] [address] [place] [address] [phone] PROGRESS Observed: 09/03/2018 Status: COMPLETED Source: NEAL 1:49 PM [facility] [place] RE[facility] HNO ID: [id number] Author: Gabriela Hensley Service: (none) Author Type: Physician Type: Progress Notes Filed: 09/04/2018 8:26 AM Note Text: Hematology and Medical Oncology PATIENT NAME: Robert Mccrary. CLINIC NO: [id number]. ATTENDING PHYSICIAN: Gabriela Hensley MD. DATE OF SERVICE:09/03/2018. DIAGNOSIS: anemia secondary to end-stage renal failure; iron deficiency anemia secondary to recent GI bleeding? Consultation requested by Dr. Reveles for an opinion regarding Acute / Chronic anemia. My final recommendations will be communicated back to the requesting physician by way of shared Medical record or letter to requesting physician via US mail. PERFORMANCE STATUS:80% HPI: 58-year-old gentleman with end-stage renal disease on chronic hemodialysis, history of hypertension diabetes mellitus and hypothyroidism. He was doing well on dialysis and Procrit injection until last month when he has acute change in his status. Patient developed severe anemia and his stool was heme positive. He has been in and out of different hospital for evaluation of near syncope as well as GI bleeding. He had a colonoscopy in June [address] Pedro Walker and there was no pathology found. He had an EGD and a bleeding scan in July 2018 and there was no pathology found. He was in congestive heart failure after 4 units of blood transfusion and possibly his breathing improve after dialysis. The patient also had dizziness and lightheadedness AND abdominal pain when he was receiving Aranesp injection in June. He switched to Epogen on August 07 because of the symptom. he had not received benefit for her since June 28, 2018. Repeat CBC yesterday showed a stable hemoglobin of 9.1, iron saturation and transferrin level was consistent with iron deficiency anemia. Patient still have occasional abdominal cramping no pain. He has no nausea or, vomiting, hematemesis or melena. He was supposed to have an outpatient capsule endoscopy study for evaluation of GI bleeding. Interim history: Except for fatigue, he is feeling well overall. He has no dizziness or lightheadedness. No chest pain or shortness of breath. He still have occasional epigastric pain and stomach cramps. He denies frequent headaches or increased lethargy. No frequent falls. Patient is currently not taking insulin and his diabetes is managed by diet only. MEDICATIONS: Current Outpatient Prescriptions: citalopram (CELEXA) 40 mg tablet Take 40 mg by mouth once daily. pantoprazole DR (PROTONIX) 40 mg tablet Take 40 mg by mouth once daily. calcium acetate 667 mg (169 mg calcium)/5 mL soln Take 2 tablets by mouth three times daily with meals. ergocalciferol, vitamin D2, (VITAMIN D) 50,000 unit capsule Take 50,000 Units by mouth once each week. saturday hydrALAZINE (APRESOLINE) 25 mg tablet Take 25 mg by mouth three times daily. amLODIPine (NORVASC) 10 mg tablet Take 10 mg by mouth once daily. B Complex-Vitamin C-Folic Acid (YOKO-ANNA) 0.8 mg tab Take 0.8 mg by mouth daily with dinner. Every evening SIMVASTATIN 20 mg tablet once daily. SYNTHROID 150 mcg tablet once daily. No current facility-administered medications for this visit. . ALLERGIES:ALLERGIES No Known Allergies. PAST MEDICAL HISTORY: PAST MEDICAL HISTORY Diagnosis Date - Anemia - Depression - DM (diabetes mellitus) (HCC) - ESRD (end stage renal disease) (HCC) - HTN (hypertension) - Hyperlipidemia - Hypothyroid . PAST SURGICAL HISTORY: PAST SURGICAL HISTORY Procedure Laterality Date - HERNIA REPAIR HX 1983 inguinal - REPAIR UMBILICAL JAMES,5+Y/O,REDUC 11/19/12 with mesh . FAMILY HISTORY: FAMILY HISTORY Problem Relation Age of Onset - Alcohol/Drug Sister - Stroke Father - Heart Father - Colon Cancer Father - Diabetes Mother - Hypertension Mother - Arthritis Mother . SOCIAL HISTORY:Social History Marital status: Spouse name: Years of education: Number of children: Social History Main Topics Smoking status: Never Smoker Smokeless tobacco: Current User Types: Snuff . REVIEW OF SYSTEMS: CONSTITUTIONAL: No fevers, chills, nightsweats, + unintended weight loss + fatigue HEENT: Denies frequent or severe heaches, nasal congestion/sinus symptoms, problematic allergy problems. EYES: No diplopia or blurry vision. CARDIOVASCULAR: No chest pain, dyspnea, palpitations, orthopnea, PND, ankle edema. PULM: No dyspnea, unexplained cough. GI: No dysphagia/odynophagia, problematic reflux, constipation, diarrhea, changes in stool habits, hematochezia, melena. + stomach crampiness AND occasional epigastric pain. : No new urinary complaints, including dysuria, gross hematuria or pyuria. NEURO: No new balance problems, peripheral weakness/paresthesias or numbness of concern. MUSC-SKEL: No new joint pain, swelling, or erythema. PSY: No concerns regarding depression, anxiety or panic. INTEGUMENTARY: No new skin changes (rash, new or changing mole, new growth) PHYSICAL EXAMINATION: 58-year-old well-nourished well-developed gentleman in no acute distress BP 147/67 Pulse 75 Temp (Src) 97.9 (Temporal Artery) Ht 5' 9.5[Ht verified with Jocelyn Lao LPN[ (1.77m) Wt 180 lb (81.6kg) SpO2 100% BMI 26.21 kg/(m2). HEENT: Head is normocephalic, atraumatic. Sclerae white, conjunctivae pink. PEERL. EOMs are intact. Oropharynx is benign. + Pallor LYMPHATICS: There is no palpable adenopathy in the neck, supraclavicular region, axillae, or groin. LUNGS: Lungs are clear to percussion and auscultation. HEART: Heart is normal without murmurs, gallops, or rubs. ABDOMEN: Soft and nontender without organomegaly. No masses can be palpated. EXTREMITIES: Are without edema. + AV shunt left arm with bruit; no petechiae or ecchymosis. NEUROLOGIC: Exam is physiologic LABORATORY DATA: Component Latest Ref Rng AND Units 09/03/2018 WBC, Savage 3.70 - 11.00 k/uL 11.47 (H) RBC, Emperatriz 4.20 - 6.00 m/uL 3.31 (L) Hemoglobin, Savage 13.0 - 17.0 g/dL 8.6 (L) Hematocrit, Savage 39.0 - 51.0 % 29.4 (L) MCV, Savage 80.0 - 100.0 fL 88.8 MCH, Savage 26.0 - 34.0 pg 26.0 MCHC, Emperatriz 30.5 - 36.0 g/dL 29.3 (L) RDW, Savage 11.5 - 15.0 % 14.4 Platelet Cnt, Savage 150 - 400 k/uL 426 (H) MPV, Emperatriz 9.0 - 12.7 fL 8.5 (L) Absol Gran Count 1.45 - 7.50 k/uL 6.63 Component Latest Ref Rng AND Units 09/03/2018 Iron 41 - 186 ug/dL 29 (L) TIBC 232 - 386 ug/dL 220 (L) Transferrin Saturation 15 - 57 % 13 (L) Folate >4.7 ng/mL >20.0 Vitamin B12 232 - 1,245 pg/mL 920 BUN 69, creatinine 8.34, ferritin 383, iron 33, transferrin saturation 11 ASSESSMENT: 58-year-old gentleman with anemia of end-stage renal failure; iron deficiency secondary to possible GI bleeding. Dizziness and lightheadedness along with stomach cramps probably not related to erythropoietin treatment. However, his stomach cramps that improved after changing to Epogen PLAN: - Repeat anemia panel today. - Discussed with Dr. Blakely regarding starting patient back on Venofer for iron deficiency anemia - Continue Epogen injection for anemia secondary to end-stage renal disease. - Followed by Dr. Abran Reveles and scheduled Endoscopy Study for Further Evaluation of His GI Bleeding I spent 45 minutes in the visit, with more than 50% of the total tjzj-ub-mhsh time of the visit in counseling / coordination of care. I will notify the patient and also Dr. Blakely regarding the results of his anemia panel. Gabriela Hensley MD. ELECTRONICALLY SIGNED CNOVSP Observed: 09/03/2018 Status: COMPLETED Source: NEAL 1:00 PM [facility] [place] REPOSITORY Visit (SP) Office (HEMAWS) ROBERT MCCRARY ([id number]) 1960 M TRN Date Time Provider Department 09/03/18 1:00 PM GABRIELA HENSLEY During your visit today, we recorded the following information about you: Temperature Pulse Blood pressure Weight 97.9 degrees 75/minute 147/67 81.6 kg Height 1.765 m Gabriela Hensley MD 09/04/2018 8:26 AM Signed Hematology and Medical Oncology PATIENT NAME: Robert Mccrary. CLINIC NO: [id number]. ATTENDING PHYSICIAN: Gabriela Hensley MD. DATE OF SERVICE:09/03/2018. DIAGNOSIS: anemia secondary to end-stage renal failure; iron deficiency anemia secondary to recent GI bleeding? Consultation requested by Dr. Reveles for an opinion regarding Acute / Chronic anemia. My final recommendations will be communicated back to the requesting physician by way of shared Medical record or letter to requesting physician via US mail. PERFORMANCE STATUS:80% HPI: 58-year-old gentleman with end-stage renal disease on chronic hemodialysis, history of hypertension diabetes mellitus and hypothyroidism. He was doing well on dialysis and Procrit injection until last month when he has acute change in his status. Patient developed severe anemia and his stool was heme positive. He has been in and out of different hospital for evaluation of near syncope as well as GI bleeding. He had a colonoscopy in June [address] Pedro Walker and there was no pathology found. He had an EGD and a bleeding scan in July 2018 and there was no pathology found. He was in congestive heart failure after 4 units of blood transfusion and possibly his breathing improve after dialysis. The patient also had dizziness and lightheadedness AND abdominal pain when he was receiving Aranesp injection in June. He switched to Epogen on August 07 because of the symptom. he had not received benefit for her since June 28, 2018. Repeat CBC yesterday showed a stable hemoglobin of 9.1, iron saturation and transferrin level was consistent with iron deficiency anemia. Patient still have occasional abdominal cramping no pain. He has no nausea or, vomiting, hematemesis or melena. He was supposed to have an outpatient capsule endoscopy study for evaluation of GI bleeding. Interim history: Except for fatigue, he is feeling well overall. He has no dizziness or lightheadedness. No chest pain or shortness of breath. He still have occasional epigastric pain and stomach cramps. He denies frequent headaches or increased lethargy. No frequent falls. Patient is currently not taking insulin and his diabetes is managed by diet only. MEDICATIONS: Current Outpatient Prescriptions: citalopram (CELEXA) 40 mg tablet Take 40 mg by mouth once daily. pantoprazole DR (PROTONIX) 40 mg tablet Take 40 mg by mouth once daily. calcium acetate 667 mg (169 mg calcium)/5 mL soln Take 2 tablets by mouth three times daily with meals. ergocalciferol, vitamin D2, (VITAMIN D) 50,000 unit capsule Take 50,000 Units by mouth once each week. saturday hydrALAZINE (APRESOLINE) 25 mg tablet Take 25 mg by mouth three times daily. amLODIPine (NORVASC) 10 mg tablet Take 10 mg by mouth once daily. B Complex-Vitamin C-Folic Acid (YOKO-ANNA) 0.8 mg tab Take 0.8 mg by mouth daily with dinner. Every evening SIMVASTATIN 20 mg tablet once daily. SYNTHROID 150 mcg tablet once daily. No current facility-administered medications for this visit. . ALLERGIES:ALLERGIES No Known Allergies. PAST MEDICAL HISTORY: PAST MEDICAL HISTORY Diagnosis Date - Anemia - Depression - DM (diabetes mellitus) (HCC) - ESRD (end stage renal disease) (HCC) - HTN (hypertension) - Hyperlipidemia - Hypothyroid . PAST SURGICAL HISTORY: PAST SURGICAL HISTORY Procedure Laterality Date - HERNIA REPAIR HX 1983 inguinal - REPAIR UMBILICAL JAMES,5+Y/O,REDUC 11/19/12 with mesh . FAMILY HISTORY: FAMILY HISTORY Problem Relation Age of Onset - Alcohol/Drug Sister - Stroke Father - Heart Father - Colon Cancer Father - Diabetes Mother - Hypertension Mother - Arthritis Mother . SOCIAL HISTORY:Social History Marital status: Spouse name: Years of education: Number of children: Social History Main Topics Smoking status: Never Smoker Smokeless tobacco: Current User Types: Snuff . REVIEW OF SYSTEMS: CONSTITUTIONAL: No fevers, chills, nightsweats, + unintended weight loss + fatigue HEENT: Denies frequent or severe heaches, nasal congestion/sinus symptoms, problematic allergy problems. EYES: No diplopia or blurry vision. CARDIOVASCULAR: No chest pain, dyspnea, palpitations, orthopnea, PND, ankle edema. PULM: No dyspnea, unexplained cough. GI: No dysphagia/odynophagia, problematic reflux, constipation, diarrhea, changes in stool habits, hematochezia, melena. + stomach crampiness AND occasional epigastric pain. : No new urinary complaints, including dysuria, gross hematuria or pyuria. NEURO: No new balance problems, peripheral weakness/paresthesias or numbness of concern. MUSC-SKEL: No new joint pain, swelling, or erythema. PSY: No concerns regarding depression, anxiety or panic. INTEGUMENTARY: No new skin changes (rash, new or changing mole, new growth) PHYSICAL EXAMINATION: 58-year-old well-nourished well-developed gentleman in no acute distress BP 147/67 Pulse 75 Temp (Src) 97.9 (Temporal Artery) Ht 5' 9.5[Ht verified with Jocelyn Lao LPN[ (1.77m) Wt 180 lb (81.6kg) SpO2 100% BMI 26.21 kg/(m2). HEENT: Head is normocephalic, atraumatic. Sclerae white, conjunctivae pink. PEERL. EOMs are intact. Oropharynx is benign. + Pallor LYMPHATICS: There is no palpable adenopathy in the neck, supraclavicular region, axillae, or groin. LUNGS: Lungs are clear to percussion and auscultation. HEART: Heart is normal without murmurs, gallops, or rubs. ABDOMEN: Soft and nontender without organomegaly. No masses can be palpated. EXTREMITIES: Are without edema. + AV shunt left arm with bruit; no petechiae or ecchymosis. NEUROLOGIC: Exam is physiologic LABORATORY DATA: Component Latest Ref Rng AND Units 09/03/2018 WBC, Savage 3.70 - 11.00 k/uL 11.47 (H) RBC, Savage 4.20 - 6.00 m/uL 3.31 (L) Hemoglobin, Savage 13.0 - 17.0 g/dL 8.6 (L) Hematocrit, Emperatriz 39.0 - 51.0 % 29.4 (L) MCV, Emperatriz 80.0 - 100.0 fL 88.8 MCH, Emperatriz 26.0 - 34.0 pg 26.0 MCHC, Emperatriz 30.5 - 36.0 g/dL 29.3 (L) RDW, Savage 11.5 - 15.0 % 14.4 Platelet Cnt, Savage 150 - 400 k/uL 426 (H) MPV, Savage 9.0 - 12.7 fL 8.5 (L) Absol Gran Count 1.45 - 7.50 k/uL 6.63 Component Latest Ref Rng AND Units 09/03/2018 Iron 41 - 186 ug/dL 29 (L) TIBC 232 - 386 ug/dL 220 (L) Transferrin Saturation 15 - 57 % 13 (L) Folate >4.7 ng/mL >20.0 Vitamin B12 232 - 1,245 pg/mL 920 BUN 69, creatinine 8.34, ferritin 383, iron 33, transferrin saturation 11 ASSESSMENT: 58-year-old gentleman with anemia of end-stage renal failure; iron deficiency secondary to possible GI bleeding. Dizziness and lightheadedness along with stomach cramps probably not related to erythropoietin treatment. However, his stomach cramps that improved after changing to Epogen PLAN: - Repeat anemia panel today. - Discussed with Dr. Blakely regarding starting patient back on Venofer for iron deficiency anemia - Continue Epogen injection for anemia secondary to end-stage renal disease. - Followed by Dr. Abran Reveles and scheduled Endoscopy Study for Further Evaluation of His GI Bleeding I spent 45 minutes in the visit, with more than 50% of the total duic-fr-mebt time of the visit in counseling / coordination of care. I will notify the patient and also Dr. Blakely regarding the results of his anemia panel. Gabriela Hensley MD. ELECTRONICALLY SIGNED Referring Provider: ABRAN REVELES [[id number]] Allergies As of Date: 09/03/2018 (No Known Allergies) Date Reviewed: 09/03/2018 Reviewed by: Elizabet Mascorro - Fully Assessed Reason for Visit: New Patient Evaluation [154] Primary Visit Diagnosis:ESRD (end stage renal disease) (HCC) [N18.6] Other Visit Diagnoses:Positive fecal occult blood test [R19.5] Acute blood loss anemia [D62] Anemia due to end stage renal disease (HCC) [N18.6, D63.1] Controlled type 2 diabetes mellitus without complication, without long-term current use of insulin (HCC) [E11.9] Order(s):FERRITIN BLD [SQFERR] Order #: [id number] FUTURE FOLATE SERUM [SQSERFOL] Order #: [id number] FUTURE METHYLMALONIC ACID [SQMMA] Order #: [id number] FUTURE RETIC COUNT [SQRETIC] Order #: [id number] FUTURE VITAMIN B12 BLOOD [SQB12] Order #: [id number] FUTURE VITAMIN B6/PYRIDOXIN [SQVITB6] Order #: [id number] FUTURE ERYTHROPOIETIN/EPO [SQEPO] Order #: [id number] FUTURE IRON + TIBC [SQIRON] Order #: [id number] FUTURE EMPERATRIZ ABS GRAN CT + CBC [SQWAGCBC] Order #: [id number] FUTURE Level of Service: NEW PATIENT VISIT LEVEL 5 [79085] Follow-up and Disposition History Recorded Prescriptions as of 09/03/2018 Sig: CITALOPRAM 40 MG TABLET Take 40 mg by mouth once marlo* PANTOPRAZOLE 40 MG TABLET,DEL* Take 40 mg by mouth once marlo* CALCIUM ACETATE 667 MG (169 M* Take 2 tablets by mouth three* ERGOCALCIFEROL (VITAMIN D2) 5* Take 50,000 Units by mouth on* HYDRALAZINE 25 MG TABLET Take 25 mg by mouth three mynor* AMLODIPINE 10 MG TABLET Take 10 mg by mouth once marlo* VITAMIN B COMPLEX-VITAMIN C-F* Take 0.8 mg by mouth daily wi* SIMVASTATIN 20 MG TABLET once daily. SYNTHROID 150 MCG TABLET once daily. Medication notes this encounter PANTOPRAZOLE 20 MG TABLET,DELAYED RELEASE >> Elizabet Mascorro MA 09/03/2018 1:14 PM >> ELIZABET MASCORRO MA Wed Sep 03, 2018 1:14 PM No longer taking this strength. HYDROCODONE 5 MG-ACETAMINOPHEN 500 MG TABLET >> Elizabet Mascorro MA 09/03/2018 1:14 PM >> ELIZABET MASCORRO MA SatSep 03, 2018 1:14 PM No longer taking. LISINOPRIL 10 MG TABLET >> Elizabet Mascorro MA 09/03/2018 1:14 PM >> ELIZABET MASCORRO MA SatSep 03, 2018 1:14 PM No longer taking. CITALOPRAM 20 MG TABLET >> Elizabet Mascorro MA 09/03/2018 1:14 PM >> ELIZABET MASCORRO MA SatSep 03, 2018 1:14 PM No longer taking this strength. KOMBIGLYZE XR 2.5 MG-1,000 MG TABLET,EXTENDED RELEASE >> Elizabet Mascorro MA 09/03/2018 1:14 PM >> ELIZABET MASCORRO MA SatSep 03, 2018 1:14 PM No longer taking. Problem List As Of Date 09/03/2018 Noted Resolved Umbilical hernia without mention of obstruction*INVALID FOR* Melena [K92.1] INVALID FOR* Acute blood loss anemia [D62] INVALID FOR* ESRD (end stage renal disease) (HCC) [N18.6] INVALID FOR* DM (diabetes mellitus), type 1 with neurologica*INVALID FOR*09/03/2018 Essential hypertension [I10] INVALID FOR* Blood loss anemia [D50.0] INVALID FOR* More... Hypothyroidism [E03.9] INVALID FOR* Hypoxia [R09.02] INVALID FOR*08/06/2018 Positive fecal occult blood test [R19.5] INVALID FOR* Priority: A Controlled type 2 diabetes mellitus without com*INVALID FOR* Encounter Status:Closed by GABRIELA HENSLEY MD on 09/04/18 OPERATIVE REPORT Observed: 09/01/2018 Status: F Source: [place]ERATRIZ 11:20 AM [facility] [place] [facility] Medical Records Department [address] [place] [address] Operative Report 09/01/18 1117 MR#: [id number] Acct: [id number] Name: ROBERT MCCRARY Rep #: [id number] : 1960 58 From: Pedro Walker MD PCP: Abran Reveles MD Status: [facility] [place] [facility] Problem List (1) Problem with dialysis access Status: Acute Qualifiers: Encounter type: initial encounter Report of Operation Date of Procedure: 09/01/18 Pre-Operative Diagnosis: Diminished flow left forearm radiocephalic arteriovenous fistula Post-Operative Diagnosis: Proximal fistula diffuse venous stenosis Surgery/Procedure Performed:: Left upper extremity fistulogram with 5 x 80 mm ever cross angioplasty Description of Surgical Findings:: Timeout and informed consent was obtained. 58-year-old gent was taken to the special procedures lab. Placed on the table. 50 mcg of fentanyl 1 mg of Versed were given as intravenous sedation. The left extremity was sterilely prepped and draped. Under ultrasound guidance 2% lidocaine was instilled closer to the antecubital space. Local was instilled. Retrograde access was achieved. Micropuncture wire inserted. 6 [place] short sheath was inserted. 035 angled Glidewire was used to place a 4 [place] glide cath into the radial artery proximal to the anastomosis. Using Isovue a fistulogram was taken the left forearm upper arm and chest area. This demonstrates high-grade diffuse stenosis of the proximal 6 cm of the fistula. Slight degree of arterial anastomotic stenosis. There is splitting of the cephalic vein in the mid forearm. There is otherwise an excellent upper arm outflow and good central venous outflow. The patient received 8000 units of heparin. I placed a 5 x 80 mm ever cross balloon and perform balloon angioplasty of the proximal portion of the fistula and arterial anastomosis. At the completion I reinserted a 4 [place] angled glide cath and obtained a completion view. This demonstrated now widely patent arterial anastomosis and proximal fistula venous flow. The sheath was removed. U suture of 4-0 nylon was placed. Blood loss was minimal. No apparent complication. The patient was taken back to the recovery area in satisfactory condition without apparent complication. Impression Successfully treated left forearm radiocephalic arteriovenous fistula with now widely patent proximal portion of the fistula adjacent to the arterial anastomosis. Nicely palpable pulse thrill and bruit. Pedro Walker M.D., F.A.C.S. Type of Anesthesia:: IV Sedation, Local 09/01/18 1120 <Electronically signed by Pedro Walker MD> Date Pedro Walker MD CC: Abran Reveles MD; Pedro Walker MD Signed CBC-COMPLETE BLOOD CNT Collected: 08/27/2018 Status: F Source: EMPERATRIZ NO DIFF 4:04 PM [facility] [place] TYPE CODE TESTS RESULT OUT OF RANGE REFERENCE UNITS LAB L100.1000 4.4-11.0 K/mm3 High WBC 15.6 LAB L100.1200 4.6-6.2 M/mm3 Low RBC 3.66 LAB L100.1300 13.0-16.5 g/dl Low HGB 9.6 LAB L100.1400 40-54 % Low HCT 32.3 LAB L100.1500 80-94 fL Normal MCV 88.3 LAB L100.1600 27.0-32.0 pg Low MCH 26.2 LAB L100.1700 32-36 g/gl Low MCHC 29.7 LAB L100.1810 11.6-14.6 % High RDW CV 14.9 LAB L100.1820 35.1-43.9 fl High RDW SD 48.1 LAB L100.1900 150-450 K/mm3 Normal PLT 370 LAB L100.2000 6.2-12.0 fl Normal MPV 8.4 Performed By: #### L100.0500 #### [facility] [place], [address] BASIC METABOLIC Collected: 08/27/2018 Status: F Source: EMPERATRIZ PROFILE (BMP) 4:04 PM [facility] [place] TYPE CODE TESTS RESULT OUT OF RANGE REFERENCE UNITS LAB L501.0100 74-106 mg/dL Normal GLU 88 Result Comment: Please note revised GLUCOSE reference range effective 2017. LAB L501.1000 7-18 mg/dL High BUN 55 LAB L501.1100 0.70-1.30 mg/dL High alert CREAT,SERUM 7.78 Result Comment: The validity of the calculated GFR AND GFRAA in patients over 70 years has not been determined. Clinical correlation is essential. LAB L501.1110 >60 mL/min Low EST GFR 8 Result Comment: Non- GFR Calc LAB L501.1115 >60 mL/min Low EST GFR - AA 9 Result Comment: GFR Calc LAB L501.1300 10-20 RATIO Low BUN/CRE 7.1 LAB L501.2200 8.5-10.1 mg/dL Normal CA 8.8 LAB L501.5300 136-145 mmol/L Normal NA 136 Result Comment: Critical Result(s) Called at: 17:37:49 08/27/2018 by: Shu price TO DR. WALKER LAB L501.5600 3.5-5.1 mmol/L Normal K 4.5 LAB L501.5900 98-107 mmol/L Normal CL 100 LAB L501.6100 21.0-32.0 mmol/L Normal CO2 27.0 LAB L501.6200 5-15 Normal 9 GAP Performed By: #### L500.2500 #### [facility] [address] [place], [address] SURGERY VISIT REPORT Observed: 08/27/2018 Status: F Source: [place]TON 3:53 PM [facility] [place] [facility] [address] [place], [place] [address] OFFICE VISIT Date of Service: 08/27/18 MR#: [id number] Acct: [id number] Name: ROBERT MCCRARY Rep #: [id number] : 1960 Provider: Pedro Walker MD Age/Sex: 58/M Location: [facility] Status: Signed Intake Intake Visit Reasons: recheck fistula per Dr. Blakely Chief Complaint: Anemia Allergies epoetin beta [From Mircera] Adverse Reaction (Verified 08/01/18 16:35) back pain Medications Levothyroxine [Synthroid] 150 mcg PO QHS 10/28/15 [History Confirmed 08/01/18] Simvastatin [Zocor] 20 mg PO QHS 10/28/15 [History Confirmed 08/01/18] Citalopram Hydrobromide [Citalopram HBr] 40 mg PO QHS 01/03/18 [History Confirmed 08/01/18] Ergocalciferol [Vitamin D] 50,000 unit PO WE 01/21/18 [History Confirmed 08/01/18] Amlodipine [Norvasc] 10 mg PO QHS 05/08/18 [History Confirmed 08/01/18] hydrALAZINE [Apresoline] 25 mg PO TID 05/08/18 [History Confirmed 08/01/18] Calcium Acetate 2 cap PO TIDCM 08/01/18 [History Confirmed 08/01/18] Pantoprazole Sodium [Protonix] 40 mg PO DAILY 08/01/18 [History Confirmed 08/01/18] Yoko-Anna 0.8 mg PO QHS 08/01/18 [History Confirmed 08/01/18] PFSH Medical History Problem with dialysis access (Acute) Enteritis (Acute) Lymphadenopathy (Chronic) Chronic renal insufficiency, stage V (Acute) ELMO (acute kidney injury) (Acute) Hyperkalemia (Acute) Hyperlipidemia (Chronic) Hypothyroidism (Chronic) Hypertension (Chronic) Type II diabetes mellitus (Chronic) Community acquired pneumonia (Acute) Surgical History H/O hernia repair (Acute) Presence of surgically created arteriovenous shunt for hemodialysis (Acute) S/P nasal surgery (Acute) Family History Father No problems noted. Social History Smoking Status: Never smoker alcohol intake: never HPI HPI HPI: ROBERT MCCRARY, is a 58 M who presents to the office today for anticipated removal of tunneled right internal jugular dialysis catheters. April 2018 the patient had a left forearm radiocephalic arteriovenous fistula creation. However just recently there is been diminished flows. It is recommended to him that rather than removing the dialysis catheter that he have his fistula inspected. The surgery was May 15, 2018. Exam Const General: cooperative Nutritional Appearance: average body habitus Orientation: alert, awake, oriented x3 HENMT Head: normal to inspection Eyes General: appearance normal, both eyes and all related structures Chest Other: Right anterior chest tunneled dialysis catheter Resp Effort AND Inspection: normal respiratory effort Auscultation: clear to auscultation bilaterally Cardio Rate: regular rate Rhythm: regular rhythm GI Palpation: soft, no hepatosplenomegaly Skin General: no rashes or lesions noted Neuro Cranial Nerves: CN's II-XI intact bilaterally Extrem Other: Left forearm radiocephalic arteriovenous fistula. There is diminished pulse thrill and bruit. There is obvious venous narrowing within 3 cm of the anastomosis Psych Affect: normal affect Assessment AND Plan Problems 1. Problem with dialysis access, initial encounter T82.536Q Plan I am recommending that we do not remove his tunneled dialysis catheters today. I am recommending that we schedule him for a left forearm fistulogram. I would anticipate ultrasound access closer to the antecubital space retrograde with flow anticipating a proximal fistula venous stenosis. This would be his first fistulogram. The area appears to be rather tight. Might need to consider a cutting balloon. He has had an opportunity ask and have questions answered. We will delay removal of his tunneled dialysis catheter till the future. Pedro Walker M.D., F.A.C.S. Coding Level of Care Code Off vis,est,level 2 Diagnoses Problem with dialysis access, initial encounter T82.898A Encounter type: initial encounter 08/27/18 1553 <Electronically signed by Pedro Walker MD> Date Pedro Walker MD Cosigner Signature: Date (if applicable) CC: Vannessa Blakely DO; Abran Reveles MD 12 LEAD ELECTROCARDIOGRAM Observed: 08/13/2018 Status: F Source: [place] 2:38 PM [facility] [place] [facility] Cardiovascular Services [address] [place] [id number] Lead EKG 08/10/18 1411 MR#: [id number] Acct: [id number] Name: ROBERT MCCRARY Rep #: [id number] : 1960 58 From: Deven Hess MD Attending Dr: Status: DEP ER Ordering Dr: Chauncey Rivera MD Date: 08/10/18 Location: ED Sex: M C Admitted: Test Reason : Blood Pressure : / mmHG Vent. Rate : 065 BPM Atrial Rate : 065 BPM P-R Int : 148 ms QRS Dur : 082 ms QT Int : 492 ms P-R-T Axes : 070 003 049 degrees QTc Int : 511 ms Normal sinus rhythm Prolonged QT Abnormal ECG Confirmed by ANABELL COLON, DEVEN ([id number]), editor at large HARPAL REVELES ([id number]) on 08/13/2018 2:38:09 PM Referred By: ROMERO Confirmed By:DEVEN HESS MD 08/13/18 1438 Date Deven Hess MD CC: MD Kiara Rivera; Abran Reveles MD Signed EMERGENCY DEPARTMENT Observed: 08/10/2018 Status: F Source: [place] SUMMARY 4:08 PM [facility] [place] [facility] Medical Records Department [address] [place] [address] Emergency Department Summary 08/10/18 1404 MR#: [id number] Acct: [id number] Name: ROBERT MCCRARY Rep #: [id number] : 1960 58 From: Chauncey Rivera MD PCP: Abran Reveles MD Status: DEP ER - ER Visit Summary Date of Service: 08/10/18 Chief Complaint: [] Left-sided chest pain this morning History of Present Illness: The patient is a 58 M [] history diabetes hypertension end-stage renal disease right chest dialysis catheter, left arm fistula complains of chest pain began this morning, he has no history of ID PE DVT states the pain is like a pressure never really had it before. He was dialyzed Saturday uncomplicated Indicates he was admitted to the hospital recently for anemia etiology which is unclear he required 3 unit blood transfusion, he was then transferred to [facility] where he had an EGD additional testing that was unremarkable no signs of GI bleeding he was discharged home Saturday or Saturday, he also indicates had aggressive dialysis during that admission, he is having no vomiting of blood no blood per rectum no fever no cough, he does not recall ever having any type of cardiac evaluation, he does not know his cholesterol he does not smoke Physical Examination: [] Resting comforting the bed in no distress she points to the left chest the right chest has the dialysis catheter is in good shape nontender no drainage the HEENT exam neck unremarkable lungs are clear the heart tones are normal the chest wall does not show any obvious areas of tenderness the abdomen soft nontender left forearm area has a dialysis fistula with a good thrill his hand function is normal with good perfusion pulses are symmetric neurologically is awake moving all 4 his lower extremity exam shows no sinus clubbing or edema he is a very thin gentleman and his lungs are very clear Test Results: [] Emergency Department Course and Treatment: [] EKG CBC screening labs chest x-ray, the screening labs EKG chest x-ray are all generally unremarkable showing no acute changes please see those reports, on reevaluation is resting comforting the bed I discussed admission with him, I discussed the concept of chest pain being from life-threatening etiologies, his hemoglobin turns at 8.5 this is baseline for him again he states he is feeling better he understands all the above and the risk but he prefers outpatient management in fact he has an appointment see his physician this Saturday and he will return for change in symptoms Treatment Plan: [] Disposition: [] Home stable declined admission Impression: [] Left-sided chest pain improved to resolved, history of end-stage renal disease on dialysis history of recent admission and workup for anemia This note was generated with Reasultation software. It may contain incorrect words, spelling, and punctuation that were not noted in review of the chart prior to signing ED Disposition - Plan for ED Patient: Chief Complaint: Shortness of Breath Referrals: Abran Reveles MD [Primary Care Provider] - What to do if you have Problems For any increased pain, shortness of breath, bleeding, nausea or vomiting, chest pain, or any unexpected problems, contact your Primary Care Provider. Call [facility] ([phone]) or report to the closest Emergency Room. Call 911 if necessary. 08/10/18 1608 <Electronically signed by Chauncey Rivera MD> Date Chauncey Rivera MD Cosigner Signature (If Indicated): Date CC: Abran Reveles MD DISCHARGE INSTRUCTION Observed: 08/10/2018 Status: F Source: EMPERATRIZ 3:09 PM [facility] Medical Records Department [address] [place] [address] Discharge Instruction 08/10/18 1508 MR#: [id number] Acct: [id number] Name: ROBERT MCCRARY Rep #: [id number] : 1960 58 From: Chauncey Rivera MD PCP: Abran Reveles MD Status: REG ER ED Disposition - Plan for ED Patient: Chief Complaint: Shortness of Breath Instructions: ED Chest Pain Atypical Unkn Cause Referrals: Abran Reveles MD [Primary Care Provider] - What to do if you have Problems For any increased pain, shortness of breath, bleeding, nausea or vomiting, chest pain, or any unexpected problems, contact your Primary Care Provider. Call [facility] ([phone]) or report to the closest Emergency Room. Call 911 if necessary. 08/10/18 1509 <Electronically signed by Chauncey Rivera MD> Date Chauncey Rivera MD Cosigner Signature (If Indicated): Date CC: Abran Reveles MD DISCHARGE INSTRUCTION Observed: 08/10/2018 Status: F Source: PENDLETON 3:08 PM [facility] [place] Medical Records Department [address] [place] [address] Discharge Instruction 08/10/18 1507 MR#: [id number] Acct: [id number] Name: ROBERT MCCRARY Rep #: [id number] : 1960 58 From: Chauncey Rivera MD PCP: Abarn Reveles MD Status: REG ER ED Disposition - Plan for ED Patient: Chief Complaint: Shortness of Breath Instructions: ED Chest Pain Atypical Unkn Cause Referrals: Abran Reveles MD [Primary Care Provider] - What to do if you have Problems For any increased pain, shortness of breath, bleeding, nausea or vomiting, chest pain, or any unexpected problems, contact your Primary Care Provider. Call [facility] ([phone]) or report to the closest Emergency Room. Call 911 if necessary. 08/10/18 1508 <Electronically signed by Chauncey Rivera MD> Date Chauncey Rivera MD Cosigner Signature (If Indicated): Date CC: Abran Reveles MD CBC W/DIFF, AUTOMATED Collected: 08/10/2018 Status: F Source: EMPERATRIZ 2:12 PM [facility] [place] [facility] TYPE CODE TESTS RESULT OUT OF RANGE REFERENCE UNITS LAB L100.1000 4.4-11.0 K/mm3 High WBC 11.2 LAB L100.1200 4.6-6.2 M/mm3 Low RBC 3.12 LAB L100.1300 13.0-16.5 g/dl Low HGB 8.4 LAB L100.1400 40-54 % Low HCT 27.5 LAB L100.1500 80-94 fL Normal MCV 88.1 LAB L100.1600 27.0-32.0 pg Low MCH 26.9 LAB L100.1700 32-36 g/gl Low MCHC 30.5 LAB L100.1810 11.6-14.6 % High RDW CV 15.2 LAB L100.1820 35.1-43.9 fl High RDW SD 47.9 LAB L100.1900 150-450 K/mm3 Normal PLT 445 LAB L100.2000 6.2-12.0 fl Normal MPV 8.2 LAB L100.2100 47-70 % High NEUT% 78.3 LAB L100.2200 19-41 % Low LY% 12.5 LAB L100.2300 0-10 % Normal MONO% 7.3 LAB L100.2400 0-5 % Normal EO% 1.5 LAB L100.2500 0-1 % Normal BASO% 0.2 LAB L100.2550 0.0-0.9 % Normal IM GRAN % 0.200 Result Comment: IG% - Immature Granulocytes (promyelocytes, myelocytes and metamyelocytes) > 1% indicates that a LEFT SHIFT is Present. LAB L100.2620 2.0-7.7 X10 3/uL High Absolute Neut 8.8 LAB L100.2720 0.83-4.51 X10 3/ul Normal Absolute Lymph 1.40 Performed By: #### L100.0100 #### [facility] [address] [place], [place], [address] BASIC METABOLIC Collected: 08/10/2018 Status: F Source: PENDLETON PROFILE (BMP) 2:12 PM [facility] [place] TYPE CODE TESTS RESULT OUT OF RANGE REFERENCE UNITS LAB L501.0100 74-106 mg/dL High GLU 148 Result Comment: Fasting Glucose result greater than or equal to 126 mg/dL suggests DIABETES MELLITUS per A.D.A. criteria. Please note revised GLUCOSE reference range effective 2017. LAB L501.1000 7-18 mg/dL High BUN 28 LAB L501.1100 0.70-1.30 mg/dL High CREAT,SERUM 6.08 Result Comment: The validity of the calculated GFR AND GFRAA in patients over 70 years has not been determined. Clinical correlation is essential. LAB L501.1110 >60 mL/min Low EST GFR 10 Result Comment: Non- GFR Calc LAB L501.1115 >60 mL/min Low EST GFR - AA 12 Result Comment: GFR Calc LAB L501.1255 ml/min Normal Estimated CRCL 15.49 LAB L501.1300 10-20 RATIO Low BUN/CRE 4.6 LAB L501.2200 8.5-10 mg/dL Normal .1 CA 8.5 LAB L501.5300 136-14 mmol/L Low 5 NA 134 LAB L501.5600 3.5-5. mmol/L Normal 1 K 3.5 LAB L501.5900 98-107 mmol/L Low CL 95 LAB L501.6100 21.0-3 mmol/L Normal 2.0 CO2 29.0 LAB L501.6200 5-15 Normal GAP 10 Performed By: #### L500.2500, L501.4010 #### [facility] [address] [place], [address] TROPONIN-I Collected: 08/10/2018 Status: F Source: EMPERATRIZ 2:12 PM [facility] [place] TYPE CODE TESTS RESULT OUT OF RANGE REFERENCE UNITS LAB L501.4010 <0.045 ng/mL Normal < 0.015 TROPONIN-I Result Comment: TROPONIN-I EXPECTED VALUES <0.045 Negative 0.045 - 0.590 Consistent with Cardiac Damage > OR = 0.600 Critical Value Not every elevated troponin is indicative of ID. These values should be used with clinical judgement in examining the patient's clinical picture for diagnosis. To establish a diagnosis of ID versus myocardial injury, there must be a demonstrated rise and/or fall in the troponin values, in addition to ischemic symptoms, EKG changes, new regional wall motion abnormality, and/or angiographical evidence. PLEASE NOTE: REFERENCE RANGES EDITED 18 Performed By: #### L500.2500, L501.4010 #### [facility] [address] [place], [address] BNP,B-TYPE NATRIURETIC Collected: 08/10/2018 Status: F Source: EMPERATRIZ PEPTIDE 2:12 PM [facility] [place] TYPE CODE TESTS RESULT OUT OF RANGE REFERENCE UNITS LAB L503.6620 0-100 pg/mL High B-TYPE 215.0 LUIS PEP Performed By: #### L503.6620 #### [facility] [address] [place], [address] CHEST 1 VIEW Observed: 08/10/2018 Status: F Source: EMPERATRIZ (PORTABLE) 2:03 PM [facility] [place] Imaging Services [address] [place] [address] Chest 1 View (Portable) MR#: [id number] Acct: [id number] Name: ROBERT MCCRARY Rep #: [id number] : 1960 M 58 From: Nakia Blakely MD PCP: Abran Reveles MD Status: REG ER Study: Chest 1 View (Portable) Date of Exam: 08/10/18 Exam# [id number] Ordering Dr: Chauncey Rivera MD STUDY: X-RAY CHEST REASON FOR EXAM: Male, 58 years old. CP, SOB, BACK PAIN SINCE THIS A.M. FLUID RETENTION TECHNIQUE: Single AP portable view of the chest. COMPARISON: August 01, 2018 FINDINGS: There is much improved aeration of the lungs. There could be right suprahilar atelectasis. There is no demonstrated pleural abnormality. Normal size heart. Normal mediastinum and kieran. Normal visualized pulmonary arteries. Normal visualized aortic arch and descending thoracic aorta. Normal visualized thoracic spine. Normal visualized ribs, clavicles, and shoulders. There is no demonstrated abnormality of the visualized soft tissue structures of the upper abdomen. RAD/Chest 1 View (Portable) IMPRESSION: There is much improved aeration of the lungs. There could be right suprahilar atelectasis. Electronically Signed: Nakia Blakely MD at 15:25 EDT , Service support , CC: MD Kiara Rivera; Abran Reveles MD Manager [place]: Signed PROGRESS Observed: 08/06/2018 Status: COMPLETED Source: NEAL 4:15 PM CLINIC OTHER CAMPUS REPOSITORY HNO ID: [id number] Author: Marco Antonio Rodney Service: Nephrology Author Type: Physician Type: Progress Notes Filed: 08/06/2018 5:28 PM Note Text: Nephrology Progress Note Following for ESRD. Pt denies CP. SOB has resolved. No increase in edema. No nausea or vomiting. Current Inpatient Medications: Current Facility-Administered Medications Ordered in Epic: pantoprazole DR 40 mg tab(s) (PROTONIX) 40 mg ORAL DAILY (6 AM) Suzy (Fish Net Stringer) Juventino 40 mg at 08/06/18 0616 hydrALAZINE 25 mg tab(s) (APRESOLINE) 25 mg ORAL TID Carlos Mei 25 mg at 08/06/18 0826 amLODIPine 10 mg tab(s) (NORVASC) 10 mg ORAL DAILY Carlos Mei 10 mg at 08/06/18 0826 calcium acetate 1,334 mg tab(s) (CALPHRON) 1,334 mg ORAL TID w MEALS Carlos Mei 1,334 mg at 08/06/18 08 ipratropium-albuterol 3 mL nebulizer solution (DUONEB) 3 mL INHALATION q 4 H PRN Carlos Mei 3 mL at 08/03/18 0927 heparin 1,000 unit/mL 3,200 Units injection 3,200 Units INTRALUMINAL PRN DIALYSIS Sky Acosta lisinopril 10 mg tab(s) (ZESTRIL, PRINIVIL) 10 mg ORAL DAILY Ilene Tetyuk 10 mg at 08/06/18 08 citalopram 20 mg tab(s) (CeleXA) 20 mg ORAL DAILY Ilene Tetyuk 20 mg at 08/06/18 08 levothyroxine 150 mcg (SYNTHROID) 150 mcg ORAL DAILY (6 AM) Ilene Tetyuk 150 mcg at 08/06/18 0616 ondansetron 4 mg tab(s) (ZOFRAN) 4 mg ORAL q 6 H PRN Ilene Tetyuk Or ondansetron (PF) 4 mg injection (ZOFRAN) 4 mg INTRAVENOUS q 6 H PRN Ilene Tetyuk acetaminophen 650 mg tab(s) (TYLENOL) 650 mg ORAL q 6 H PRN Ilene Tetyuk sitaGLIPtin 50 mg tab(s) (JANUVIA) 50 mg ORAL DAILY WITH BREAKFAST Ilene Tetyuk 50 mg at 08/06/18 08 atorvastatin 10 mg tab(s) (LIPITOR) 10 mg ORAL AT BEDTIME Ilene Tetyuk 10 mg at 08/05/182103 Current Outpatient Prescriptions Ordered in Epic: calcium acetate 667 mg (169 mg calcium)/5 mL soln Take 2 tablets by mouth three times daily with meals. Disp: Rfl: ergocalciferol, vitamin D2, (VITAMIN D) 50,000 unit capsule Take 50,000 Units by mouth once each week. saturday Disp: Rfl: hydrALAZINE (APRESOLINE) 25 mg tablet Take 25 mg by mouth three times daily. Disp: Rfl: amLODIPine (NORVASC) 10 mg tablet Take 10 mg by mouth once daily. Disp: Rfl: pantoprazole DR (PROTONIX) 20 mg tablet Take 20 mg by mouth once daily. 0600 Disp: Rfl: B Complex-Vitamin C-Folic Acid (YOKO-ANNA) 0.8 mg tab Take 0.8 mg by mouth daily with dinner. Every evening Disp: Rfl: acetaminophen-HYDROcodone 5-500 mg tablet Take 1-2 tablets by mouth every 4 hours as needed. Disp: 40 tablet Rfl: 1 SIMVASTATIN 20 mg tablet once daily. Disp: Rfl: LISINOPRIL 10 mg tablet once daily. Disp: Rfl: SYNTHROID 150 mcg tablet once daily. Disp: Rfl: CITALOPRAM 20 mg tablet once daily. Disp: Rfl: KOMBIGLYZE XR 2.5-1,000 mg TM24 twice daily. Disp: Rfl: Vitals: BP 128/65 Pulse 78 Temp 36.7 ?C (98.1 ?F) (Oral) Resp 18 Ht 177.8 cm (5' 10) Wt 81.1 kg (178 lb 12.8 oz) SpO2 97% BMI 25.66 kg/m? BLOOD PRESSURE RANGE: Systolic (24hrs), Av , Min:116 , Max:131 ; Diastolic (24hrs), Av, Min:60, Max:65 24HR INTAKE/OUTPUT: Intake/Output Summary (Last 24 hours) at 08/06/18 1725 Last data filed at 08/06/18 1300 Gross per 24 hour Intake 600 ml Output 0 ml Net 600 ml Physical exam: Constitutional: NAD Skin: no rash, turgor wnl Heent: mmm Neck: no bruits or jvd noted Cardiovascular: S1, S2 normal Respiratory: CTAB Abdomen: +bs, soft, nt, nd Ext: no lower extremity edema Data: Labs: Recent Labs 08/06/18 1433 08/06/1821408/05/18 0245 WBC -- 9.62* -- HB 7.6* 7.2* 7.1* HCT 23.9* 23.1* 22.8* MCV -- 87.5 -- PLT -- 377* -- Recent Labs 08/06/18 0215 08/05/18 0245 08/04/18 1557 NA 131* 132* 133* K 3.6 4.3 4.3 CO2 27 24 25 BUN 37* 55* 47* CREAT 5.76* 8.26* 7.59* CA 8.0* 8.2* 8.7 Assessment and Plan ? 1. ESRD. Usually dialyzes on TTS at [facility]. Dr. Blakely is his primary senior talent acquisition specialist. Will arrange for dialysis tomorrow on his usual schedule if not discharged. No need for dialysis today. ? 2. Dyspnea. Improved. Back to baseline. Will continue O>I with HD tomorrow. Echo (from [facility]) did not show systolic dysfunction per Dr. Acosta. Suspect pulmonary edema may be due to volume OL. Will continue more UF with dialysis tomorrow. Will need to establish a new TW (Current TW is 87 kg at out dialysis center). ? 3. Anemia. Likely partly due to CKD. Continue ARSH with HD. Has a history of melena but EGD did not show active bleed. Will continue to hold heparin with HD until Hgb is stable. Further work up for anemia as per hospitalist. ? 4. HTN. BP is controlled. Continue current med (lisinopril). Watch BP as we establish new TW. Please do not hesitate to contact me at [phone] if there is any question or concern. Poppy Moctezuma MD (Marco Antonio Rodney) CNDS Observed: 08/06/2018 Status: COMPLETED Source: NEAL 2:55 PM CLINIC OTHER CAMPUS REPOSITORY HNO ID: [id number] Author: Hillary Sandhu Service: Hospital Medicine Author Type: Physician Type: Discharge Summaries Filed: 08/06/2018 2:55 PM Note Text: DISCHARGE SUMMARY PATIENT NAME: Robert Mccrary Code Status: Full Code Highest Readmission Risk Score: 23 The 30 day readmissions risk score is derived from an internally validated risk model which evaluates patient level characteristics, utilization history, medication orders and lab results up until the day of discharge. Patients with a score of 40 or above are considered highest risk for readmission. Specific patient level drivers will be listed at the bottom of the summary. Admission Information Admission Information ADMIT DATE: 08/02/2018 DISCHARGE DATE: 08/06/2018 MY DOCTORS AND MEDICAL TEAM: My Main Hospital Doctor: Hillary Sandhu Primary Care Provider: Abran Reveles MD My Medical Team Members: Treatment Team: Attending Provider: Hillary Sandhu Consulting: Marv Watkins Consulting: Marco Antonio Rodney Primary Service: Mitchell Tom MY CONDITION AT DISCHARGE: Stable REASON I WAS IN THE HOSPITAL: GI Bleed, anemia SUMMARY OF WHAT HAPPENED WHILE I WAS IN THE HOSPITAL: Admitted from [facility] with concern of severe anemia (has had several transfusions this year), and had blood transfusion prior to transfer. Upper endoscopy here did not show a source of bleeding, and nuclear RBC scan also did not show a source of bleeding. Will need hematology consultation as outpatient and consider capsule endoscopy (camera pill). Hgb stable at 7.2 on day of discharge. OTHER PROBLEMS/DIAGNOSIS: Principal Problem: Acute blood loss anemia Active Problems: Positive fecal occult blood test ESRD (end stage renal disease) (HCC) DM (diabetes mellitus), type 1 with neurological complications (HCC) Essential hypertension Resolved Problems: Hypoxia OPERATIONS PERFORMED WHILE IN THE HOSPITAL: None IMPORTANT TEST/PROCEDURES: EGD, RBC scan TEST RESULTS NOT AVAILABLE AT THIS TIME: No pending results Discharge Disposition Discharge Disposition: Home With Self Care Activity When You Leave the Hospital Resume pre-hospital activity Diet Instructions Diabetic Renal Call Your Doctor If You have a severe headache You have lightheadedness, fainting, or confusion You have persistent nausea/vomiting over 24 hours You have swollen glands or cold and clammy skin Your temperature is greater than 101F Follow Up Appointments Follow-Up Appointment When: In 1 week bAran Reveles [phone] [facility]. [address] [address] PCP Requested Referral Follow-Up Appointment With: Maintenance dialysis schedule on Saturday, , Saturday When: Tomorrow Additional Provider to Provider Information: Principal Problem: Acute blood loss anemia Active Problems: Positive fecal occult blood test ESRD (end stage renal disease) (HCC) DM (diabetes mellitus), type 1 with neurological complications (HCC) Essential hypertension Resolved Problems: Hypoxia Transitions of Care Critical Issues: LAB MONITORING NEEDED: CBC 08/07 and 08/09 LABS AND PROCEDURES PENDING AT DISCHARGE: No pending results. Ruled Out FOLLOW-UP APPOINTMENTS ALREADY SCHEDULED WITH A [facility] PROVIDER: Future Appointments Date Time Provider Department Center 09/08/2018 7:45 AM PRE TX GROUP EDUCATION TXCTGL UROL Q DG 09/08/2018 10:15 AM Karen (Jessica) Kelli DTBAMN NUTRI A Bldg 09/08/2018 11:15 AM WOOL SAMPLER TRAC TXCTGL UROL Q [facility] 09/08/2018 12:[address] 2 MAIN QB (I-STAT) RCTMN RADIO (MAIN 09/08/2018 12:40 PM XR CHEST MAIN QB1 RGENMN RADIO (MAIN 09/08/2018 1:00 PM Rachel Plasencia (MiguelinaLeandra Prasad TXCTGL UROL Q [facility] 09/08/2018 2:30 PM Kidney Txp Coordinators TXCTGL UROL Q DG 09/08/2018 3:15 PM [facility] TXCTGL UROL Q DG 09/08/2018 4:00 PM Nephrology [facility] TXCTGL UROL Q DG 09/08/2018 4:45 PM Kidney Txp Coordinators TXCTGL UROL Q BLDG 09/08/2018 5:00 PM EKGJ1-4 MAIN [id number] CARD J BLD 09/08/2018 5:20 PM LBJ1-4 MAIN LBJ1-4 CARD J BLD ALLERGIES No Known Allergies DISCHARGE MEDICATION: Current Discharge Medication List CONTINUE these medications which have NOT CHANGED calcium acetate 2 tablets Take 2 tablets by mouth three times daily with meals. ergocalciferol (vitamin D2) (DRISDOL) 50,000 Units Take 50,000 Units by mouth once each week. saturday hydrALAZINE (APRESOLINE) 25 mg Take 25 mg by mouth three times daily. amLODIPine (NORVASC) 10 mg Take 10 mg by mouth once daily. pantoprazole DR (PROTONIX) 20 mg Take 20 mg by mouth once daily. 0600 B Complex-Vitamin C-Folic Acid (YOKO-VIT) 0.8 mg Take 0.8 mg by mouth daily with dinner. Every evening acetaminophen-HYDROcodone (VICODIN) 1-2 tablets Take 1-2 tablets by mouth every 4 hours as needed. Qty: 40 tablet Refills: 1 SIMVASTATIN 20 mg tablet once daily. LISINOPRIL 10 mg tablet once daily. SYNTHROID 150 mcg tablet once daily. CITALOPRAM 20 mg tablet once daily. KOMBIGLYZE XR 2.5-1,000 mg TM24 twice daily. The patient's risk for 30-day readmission is determined using the following contributing factors: Pt variables contributing to increased readmission risk: 37 Most Recent BUN Result 14 Active Medication Orders 8.5 First Resulted Calcium During Admission 1 Insurance - Private Coverage 1 Discharge Disposition - Home 1 History of Anemia 1 Active Anticoagulant TIME OF CARE: Discharge Management: I personally spent greater than 30 minutes involved in the discharge management of this patient. SIGNATURE: Hillary Sandhu MD PAGER/CONTACT #: DATE: August 06, 2018 TIME: 2:55 PM PROGRESS Observed: 08/06/2018 Status: COMPLETED Source: NEAL 2:36 PM CLINIC OTHER CAMPUS REPOSITORY HNO ID: [id number] Author: Hillary Sandhu Service: Hospital Medicine Author Type: Physician Type: Progress Notes Filed: 08/06/2018 2:43 PM Note Text: DEPARTMENT OF HOSPITAL MEDICINE [facility] PROGRESS NOTE- HOSPITAL DAY 4 SERVICE DATE: 08/06/2018 2:36 PM Hospital Medicine/Primary Attending: Hillary Sandhu MD CHIEF COMPLAINT: Acute blood loss anemia OVERNIGHT EVENTS: None INTERVAL HISTORY OF PRESENT ILLNESS: Patient doing well overall, still fatigued, but not nearly like pre-transfusion. EGD did not reveal source of bleeding, nor did RBC scan. Patient is anxious to be discharged and is in favor of outpatient hematology consultation for further evaluation of recurrent anemia requiring transfusion. REVIEW OF SYSTEMS GENERAL: SEE HPI HEENT: Negative NECK: Negative RESPIRATORY: Negative CARDIOVASCULAR: Negative GI: SEE HPI : Negative for dysuria, frequency and incontinence MUSCULOSKELETAL: Negative for joint pain or swelling, back pain, and muscle pain. SKIN: Negative NEURO: Negative PHYSICAL EXAM: GENERAL: Alert, no distress, cooperative SKIN: Skin color, texture, turgor normal. No rashes or lesions. Area around right IJ tunneled cath site without erythema OROPHARYNX: Lips, mucosa, and tongue are normal.Teeth and gums, normal. Oropharynx normal. NECK: No jugulovenous distention, No carotid bruits, Carotid pulse normal contour, Supple LUNGS: Lungs clear to auscultation. Good diaphragmatic excursion. CARDIAC: Normal S1 and S2; no rubs, murmurs, or gallops ABDOMEN: Abdomen soft, non-tender, BS normal, No masses or organomegaly EXTREMITIES: Extremities normal, no deformities, edema, clubbing or skin discoloration. Good capillary refill., No ulcers NEURO: Alert, oriented X 3, Cranial nerves II-XII intact PULSES: 2+ radial, 2+ dorsalis pedis, 2+ carotid, left forearm AV Fistula with good thrill Patient Vitals for the past 24 hrs: BP Temp Temp src Pulse Resp SpO2 08/06/18 1400 128/65 36.7 ?C (98.1 ?F) Oral 78 18 97 % 08/06/18 1145 117/60 - - 80 - - 08/06/18 0613 131/64 36.5 ?C (97.7 ?F) Oral 72 18 97 % 08/05/18 2103 124/62 36.5 ?C (97.7 ?F) Temporal Art 76 18 96 % 08/05/18 1800 116/62 36.7 ?C (98.1 ?F) Tympanic 82 18 98 % Temp (24hrs), Av.6 ?C (97.9 ?F), Min:36.5 ?C (97.7 ?F), Max:36.7 ?C (98.1 ?F) Pain Score: 0/10 (08/06/18 0826) ASSESSMENT AND PLAN Principal Problem: Acute blood loss anemia POA: Yes Assessment AND Plan: s/p 3 units PRBC at [facility] prior to transfer, and source of bleeding has not been found. May need VCE as outpatient, or blood loss may not be the source of anemia. Recommend outpatient hematology consultation for consideration of other causes of chronic anemia. Active Problems: Positive fecal occult blood test POA: Yes Assessment AND Plan: as above, no source found ESRD (end stage renal disease) (HCC) POA: Yes Assessment AND Plan: maintenance HD to resume at discharge DM (diabetes mellitus), type 1 with neurological complications (HCC) POA: Yes Assessment AND Plan: continue home insulin regimen Essential hypertension POA: Yes Assessment AND Plan: controlled Resolved Problems: Hypoxia POA: Yes CODE STATUS: Full PLANNED DISPOSITION: Home Plan of care discussed with: Patient, Family/Other: and RN I spent 30 minutes in the visit, including chart review and discussion with other care providers, with more than 50% of the total [id number] time of the visit in counseling / coordination of care. Diagnostic tests reviewed for today's visit: Most recent labs and imaging results. Most recent EKG TELEMETRY: NSR LABS CBC: Recent Labs 08/06/18214 WBC 9.62* HB 7.2* PLT 377* CMP: Recent Labs 08/06/18214 NA 131* K 3.6 CHLOR 93* CO2 27 BUN 37* CREAT 5.76* GLUC 152* CA 8.0* RADIOLOGY 08/05/2018 ?4:52 PM - Radiology, [place] In Results RBC LABELLED GI BLEED SCAN ? CLINICAL HISTORY: Assess for acute gastrointestinal bleed. ? TECHNIQUE: 20 mCi Tc 99m labelled RBC's. ? Sequential imaging of the abdomen for 90 minutes was obtained. ? FINDINGS: ? There is normal physiologic distribution of the labelled red blood cells without evidence of any abnormal accumulation of the RBCs. ? IMPRESSION: ? NO EVIDENCE OF AN ACUTE GASTROINTESTINAL BLEED. MEDICATIONS: Current hospital medications: pantoprazole DR 40 mg tab(s) (PROTONIX) 40 mg ORAL DAILY (6 AM) hydrALAZINE 25 mg tab(s) (APRESOLINE) 25 mg ORAL TID amLODIPine 10 mg tab(s) (NORVASC) 10 mg ORAL DAILY calcium acetate 1,334 mg tab(s) (CALPHRON) 1,334 mg ORAL TID w MEALS ipratropium-albuterol 3 mL nebulizer solution (DUONEB) 3 mL INHALATION q 4 H PRN heparin 1,000 unit/mL 3,200 Units injection 3,200 Units INTRALUMINAL PRN DIALYSIS lisinopril 10 mg tab(s) (ZESTRIL, PRINIVIL) 10 mg ORAL DAILY citalopram 20 mg tab(s) (CeleXA) 20 mg ORAL DAILY levothyroxine 150 mcg (SYNTHROID) 150 mcg ORAL DAILY (6 AM) ondansetron 4 mg tab(s) (ZOFRAN) 4 mg ORAL q 6 H PRN ondansetron (PF) 4 mg injection (ZOFRAN) 4 mg INTRAVENOUS q 6 H PRN acetaminophen 650 mg tab(s) (TYLENOL) 650 mg ORAL q 6 H PRN sitaGLIPtin 50 mg tab(s) (JANUVIA) 50 mg ORAL DAILY WITH BREAKFAST atorvastatin 10 mg tab(s) (LIPITOR) 10 mg ORAL AT BEDTIME Medications Discontinued During This Encounter Medication Reason - saxagliptin-metFORMIN 2.5-1,000 mg TM24 1 tablet Not on Formulary - simvastatin 20 mg tab(s) (ZOCOR) Not on Formulary - HYDROcodone 5 mg - acetaminophen 325 mg tablet (NORCO) Other - furosemide 40 mg injection (LASIX) - metFORMIN 1,000 mg tab(s) (GLUCOPHAGE) - furosemide 80 mg injection (LASIX) - heparin 5,000 Units injection - lactated ringers infusion Auto DC with change in level of care. - pantoprazole 40 mg injection (PROTONIX) SIGNATURE: Hillary Sandhu MD PATIENT NAME: Robert Mccrary DATE: August 06, 2018 TIME: 2:36 PM PAGER/CONTACT #: [phone] NIGHT AND WEEKEND COVERAGE: After 7pm please page [phone] HCT Collected: 08/06/2018 Status: F Source: [facility] 2:33 PM HEALTH SYSTEM REPOSITORY TYPE CODE TESTS RESULT OUT OF RANGE REFERENCE UNITS LAB HCTI(LOINC) 40.1-51.0 % Low Hct 23.9 Performed By: #### HCTI #### [facility] [address] [place], [place] [address] HGB Collected: 08/06/2018 Status: F Source: [facility] 2:33 PM HEALTH SYSTEM REPOSITORY TYPE CODE TESTS RESULT OUT OF RANGE REFERENCE UNITS LAB HGBI(LOINC) 13.7-17.5 g/dL Low Hgb 7.6 Performed By: #### HGBI #### [facility] [address] [place], [place] [address] MDRD GFR Collected: 08/06/2018 Status: F Source: [facility] 2:15 AM HEALTH SYSTEM REPOSITORY TYPE CODE TESTS RESULT OUT OF RANGE REFERENCE UNITS LAB GFRFN(LOINC >60mL/min/1.73m ) 2 eGFR 10.24 Result Comment: If the patient is , multiply the result by 1.210. Performed By: #### GFR #### [facility] [address] [place], [place] [address] HEMOGRAM/DIFF Collected: 08/06/2018 Status: F Source: [facility] 2:15 AM HEALTH SYSTEM REPOSITORY TYPE CODE TESTS RESULT OUT OF REFERENCE UNITS RANGE LAB WBC(LOINC) 4.23-9.07 thou/cmm WBC High 9.62 LAB RBC(LOINC) 4.63-6.08 mil/cmm Low RBC 2.64 LAB HGB(LOINC) 13.7-17.5 g/dL Low Hgb 7.2 LAB HCT(LOINC) 40.1-51.0 % Low Hct 23.1 LAB MCV(LOINC) 83.2-95.6 fl MCV 87.5 LAB MCH(LOINC) 25.7-32.2 pg MCH 27.3 LAB MCHC(LOINC 32.3-36.5 % ) Low MCHC 31.2 LAB RDW(LOINC) 11.6-14.4 % RDW High 14.5 LAB RDWSD(LOIN 36.1-45.8 fl C) RDW SD 45.8 LAB PLT(LOINC) 141-365 thou/cmm Platelet High 377 LAB MPV(LOINC) 8.7-12.0 fl MPV 9.3 LAB SEG(LOINC) % Seg Neutrophil 73.6 LAB IGRE(LOINC % ) Immature Grans 0.60 LAB LYMPH(LOIN % C) Lymphocyte 15.9 LAB MNO(LOINC) % Monocyte 7.3 LAB EOSIN(LOIN % C) Eosinophil 2.2 LAB BASO(LOINC % ) Basophil 0.4 LAB SEGN(LOINC 1.78-5.38 thou/cmm ) Abs. High Neut (ANC) 7.08 LAB IGAB(LOINC 0.00-0.05 thou/cmm ) Abs High Immature Grans 0.06 LAB LYMN(LOINC 0.84-2.85 thou/cmm ) Abs. Lymph 1.53 LAB MONON(LOIN 0.30-0.82 thou/cmm C) Abs. Elmore 0.70 LAB EOSN(LOINC 0.04-0.54 thou/cmm ) Abs. Eosin 0.21 LAB BASON(LOIN 0.01-0.08 thou/cmm C) Abs. Baso 0.04 Performed By: #### CBCD1 #### [place] [address] BASIC PANEL Collected: 08/06/2018 Status: F Source: [facility] 2:15 AM HEALTH SYSTEM REPOSITORY TYPE CODE TESTS RESULT OUT OF REFERENCE UNITS RANGE LAB NA(LOINC) 136-145 mEq/L Low Sodium Blood 131 LAB K(LOINC) 3.5-5.1 mEq/L Potassium Blood 3.6 LAB CL(LOINC) 98-107 mEq/L Low Chloride Blood 93 LAB CO2(LOINC) 21-32 mEq/L CO2 Blood 27 LAB GLU(LOINC) 70-99 mg/dL Glucose High Blood 152 LAB BUN(LOINC) 7-18 mg/dL BUN High Blood 37 LAB CA(LOINC) 8.5-10.1 mg/dL Low Calcium Blood 8.0 LAB ANGAP(LOIN 8-16 C) Anion Gap 15 LAB CREA(LOINC 0.67-1.17 mg/dL ) High Creatinine Blood 5.76 Performed By: #### P8 #### [place] [address] PROGRESS Observed: 08/05/2018 Status: COMPLETED Source: [facility] 8:48 PM CLINIC OTHER CAMPUS REPOSITORY HNO ID: [id number] Author: Carlos Mei Service: Hospital Medicine Author Type: Physician Type: Progress Notes Filed: 08/05/2018 8:55 PM Note Text: INPATIENT PROGRESS NOTE After 7pm, please call cross cover pager #[phone] SERVICE DATE: August 05, 2018 SERVICE TIME: 8:49 PM PRIMARY SERVICE: Hospital Medicine Subjective CHIEF COMPLAINT: Here for : problems listed below Active Hospital Problems Diagnosis Date Noted - Melena 08/02/2018 - Hypothyroidism 08/03/2018 - Hypoxia 08/03/2018 - Acute blood loss anemia 08/02/2018 - ESRD (end stage renal disease) ([facility]) 08/02/2018 - DM (diabetes mellitus), type 1 with neurological complications ([facility]) 08/02/2018 - Essential hypertension 08/02/2018 INTERVAL HPI: Denies any sob HEENT: Negative for nasal congestion and post-nasal drip CARDIOVASCULAR: Negative for palpitations GI: negative for nausea/ emesis : negative for dysuria, urgency , frequency MUSCULOSKELETAL: negative for pains/aches SKIN: Negative for rash PSYCH: Negative for active stressors, depression and anxiety ENDOCRINE: Negative for polyuria and polydipsia NEURO: Negative for cognitive changes and morning headaches All other review of systems reviewed and are negative unless other darby stated in the HPI or the ROS Current hospital medications: [START ON 08/06/2018] pantoprazole DR 40 mg tab(s) (PROTONIX) 40 mg ORAL DAILY (6 AM) hydrALAZINE 25 mg tab(s) (APRESOLINE) 25 mg ORAL TID amLODIPine 10 mg tab(s) (NORVASC) 10 mg ORAL DAILY calcium acetate 1,334 mg tab(s) (CALPHRON) 1,334 mg ORAL TID w MEALS ipratropium-albuterol 3 mL nebulizer solution (DUONEB) 3 mL INHALATION q 4 H PRN heparin 1,000 unit/mL 3,200 Units injection 3,200 Units INTRALUMINAL PRN DIALYSIS lisinopril 10 mg tab(s) (ZESTRIL, PRINIVIL) 10 mg ORAL DAILY citalopram 20 mg tab(s) (CeleXA) 20 mg ORAL DAILY levothyroxine 150 mcg (SYNTHROID) 150 mcg ORAL DAILY (6 AM) ondansetron 4 mg tab(s) (ZOFRAN) 4 mg ORAL q 6 H PRN ondansetron (PF) 4 mg injection (ZOFRAN) 4 mg INTRAVENOUS q 6 H PRN acetaminophen 650 mg tab(s) (TYLENOL) 650 mg ORAL q 6 H PRN sitaGLIPtin 50 mg tab(s) (JANUVIA) 50 mg ORAL DAILY WITH BREAKFAST atorvastatin 10 mg tab(s) (LIPITOR) 10 mg ORAL AT BEDTIME Objective PHYSICAL EXAM: BP 116/62 Pulse 82 Temp (Src) 98.1 (Tympanic) Resp 18 Ht 5' 10 (1.78m) Wt 178 lb 12.8 oz (81.1kg) SpO2 98% BMI 25.66 kg/(m2). Constitutional - Vitals as above, not in acute distress Resp - Clear to auscultate both sides, no wheezes, crackles or rales, no labored breathing CVS- RRR. No murmur, gallop or rub, pulse 2+ GI - NTND, bowel sounds normally heard, no mass palpable GEOPHYSICAL PROSPECTING SURVEYOR- cranial nerves 2 to 12 grossly intact, no focal motor or sensory deficits noted, speech normal/ Psych- A ANDO x 3, mood normal Skin- Normal tugor, no ulcers or rashes DATA: Diagnostic tests reviewed for today's visit: Most recent labs and imaging results. Hemoglobin (g/dL) Date Value 11/03/2012 13.4 HGB (g/dL) Date Value 08/05/2018 7.1 Hematocrit (%) Date Value 08/05/2018 22.8 WBC (thou/cmm) Date Value 08/03/2018 19.26 Glucose (mg/dL) Date Value 08/05/2018 100 Potassium (mEq/L) Date Value 08/05/2018 4.3 Sodium (mEq/L) Date Value 08/05/2018 132 Chloride (mEq/L) Date Value 08/05/2018 97 CO2 (mEq/L) Date Value 08/05/2018 24 Creatinine (mg/dL) Date Value 08/05/2018 8.26 BUN (mg/dL) Date Value 08/05/2018 55 Anion Gap (no units) Date Value 08/05/2018 15 Calcium (mg/dL) Date Value 08/05/2018 8.2 Protein, Total (g/dL) Date Value 08/05/2018 6.8 Albumin (g/dL) Date Value 08/05/2018 2.2 Bilirubin, Total (mg/dL) Date Value 08/05/2018 1.0 Alkaline Phosphatase (U/L) Date Value 08/05/2018 47 AST (U/L) Date Value 08/05/2018 14 ALT (U/L) Date Value 08/05/2018 14 Assessment/Plan Principal Problem: Acute hypoxic respiratory failure : I have ordered an extensive workup including EKG and chest x-ray ventilation/perfusion scan ABGs. It seems that the patient on chest x-ray has pulmonary edema. I asked the patient if he has any cardiac condition he stated that there was an echo done approximately 3 days ago when he was in was temperature that showed possible heart failure. At a conversation with the senior talent acquisition specialist regarding diuresing the patient. He ordered Lasix 80 mg IV, and the patient will go to dialysis today and they will try to remove 3-4 L of fluids. Graciously, senior talent acquisition specialist also has access to records, he will present to the echocardiogram and place it on the chart tomorrow. This could be either CHF exacerbation or fluid overload.I placed him on continuous pulse ox and monitor monitoring for now also. August 04, 2018 ----> echo results sent by nephrology , Normal EF, no DD. Most likely was fluid overloaded. . I will attempt to wean O2 today. ------> August 05, 2018 : completely off O2 today Melena POA: Yes Assessment AND Plan: gastroenterology on board, every 8 hourshemoglobin and hematocrit shows decreasehe status post 3 units of PRBCs. We'll continue to monitor for bleeding. I I've sent for type and screen again and we'll consent the patient tonight. * ------>August 04, 2018 , patient went for EGD today , awaiting GI recs, H/H stable -----August 05, 2018 : H/H , EGD unremarkable, tagged RBC negative. No identifiable source of bleeding. Will wait on GI final recs tomorrow. ESRD (end stage renal disease) (HCC) POA: Yes Assessment AND Plan: dialysis today per nephrology DM (diabetes mellitus), type 1 with neurological complications (HCC) POA: Yes Assessment AND Plan: continue home Januvia every 4 checks of blood glucose. for now appears to be close to normal glycemic Essential hypertension POA: Yes Assessment AND Plan: mildly hypertensive today, however he will undergo dialysis we'll reevaluate tomorrow August 04, 2018----> restarted home meds today Hypothyroidism POA: Unknown Assessment AND Plan: continue home medications Resolved Problems: * No resolved hospital problems. * Medication and Non-Pharmacologic VTE Prophylaxis/Anticoagulants Anticoagulant AND Antiplatelet Medications Start Dose Route Frequency Ordered Stop 08/03/18 1335 heparin 1,000 unit/mL 3,200 Units injection 3,200 Units INTRALUMINAL PRN DIALYSIS 08/03/18 1336 -- 08/03/18 0030 pneumatic compression stockings ([place], [place]) 08/02/181999 vte non-pharmacologic prophylaxis - none indicated ([place], [place]) 08/02/181999 activity - mobilize patient ([place], [place]) VTE Prophylaxis: reviewed the heparin protocol, have DC'd the heparin 5000 twice a day due to active bleeding. Dispo: pending GI recommendations SIGNATURE: Carlos Mei MD PATIENT NAME: Robert Mccrary DATE: August 05, 2018 TIME: 8:54 PM PAGER: emma Coffman , After 7pm, please call cross cover pager #[phone] PROGRESS Observed: 08/05/2018 Status: COMPLETED Source: [facility] 4:49 PM CLINIC OTHER CAMPUS REPOSITORY O ID: [id number] Author: Nikkie Mehta (Rt) Service: Radiology Author Type: Geriatric Social Work Professor Type: Progress Notes Filed: 08/05/2018 4:50 PM Note Text: RADIOLOGY SERVICE PROGRESS NOTE SERVICE DATE: 08/05/2018 SERVICE TIME: 4:49 PM PATIENT IDENTITY VERIFICATION COMPLETED USING TWO (2) METHODS: Patient confirmed name and Date of verbally. PATIENT GENDER DATA: .male : No ALLERGIES: Reviewed and unchanged MEDICATIONS REVIEWED: Yes PATIENT RELEVANT IMPLANT DATA REVIEWED: Not Applicable CREATININE: Creatinine Date Value Ref Range Status 08/05/2018 8.26 (H) 0.67 - 1.17 mg/dL Final 08/04/2018 7.59 (H) 0.67 - 1.17 mg/dL Final 08/03/2018 4.72 (H) 0.67 - 1.17 mg/dL Final eGFR-All Other Races Date Value Ref Range Status 11/03/2012 >60 . Final Comment: eGFR (Estimated GFR) Units of measure: mL/min/1.73 meters squared eGFR is derived from the reexpressed MDRD Study equation using the following parameters: serum creatinine, age, gender and race. The creatinine assay has been calibrated to be traceable to IDMS. An eGFR <60 mL/min/1.73m2 for >3 months is consistent with chronic kidney disease. Refer to KDOQI guidelines for clinical interpretation. eGFR- Date Value Ref Range Status 11/03/2012 >60 Final P.O.C.T. RESULTS: N/A August 05, [address] PERFORMED: No IV SITE: Inpatient - refer to [facility] documentation POST EXAM PIV STATUS: Left in for next appointment PROCEDURE TYPE: NM INJECT: GI BLEED SCAN. 20 mCi Tc99m ULTRATAG. No other medications given.. ADMINISTRATION TIME: 2 PATIENT DISCHARGED TO: Patient taken to IP transport area for return to RNF/ICU/ED. A Diagnostic radioactive procedure has taken place, with no further precautions necessary other than routine body substance precautions. More information regarding radiation safety can be found using this link: [email or web address] SIGNATURE: RT Tyson PATIENT NAME: Robert Mccrary DATE: August 05, 2018 TIME: 4:49 PM PAGER/CONTACT #: ACUTE GASTRIC BLOOD Observed: 08/05/2018 Status: F Source: [facility] 4:41 PM HEALTH SYSTEM REPOSITORY Performed at [facility] APPROVED BY: LIBRA AGUIRRE MD RBC LABELLED GI BLEED SCAN CLINICAL HISTORY: Assess for acute gastrointestinal bleed. TECHNIQUE: 20 mCi Tc 99m labelled RBC's. Sequential imaging of the abdomen for 90 minutes was obtained. FINDINGS: There is normal physiologic distribution of the labelled red blood cells without evidence of any abnormal accumulation of the RBCs. IMPRESSION: NO EVIDENCE OF AN ACUTE GASTROINTESTINAL BLEED. CASE MANAGEM Observed: 08/05/2018 Status: COMPLETED Source: [facility] 4:16 PM CLINIC OTHER CAMPUS REPOSITORY HNO ID: [id number] Author: Brynn FaustinRn) SILVANA Monzon Service: Care Management Author Type: Registered Nurse Type: Care Mgt Progress Note Filed: 08/05/2018 4:17 PM Note Text: CARE MANAGEMENT PROGRESS NOTE SERVICE DATE: 08/05/2018 SERVICE TIME: 4:16 PM LOS: 3 days Progress note Unable to assess patient- at Test- [facility]- to continue to follow for transitional care needs. SIGNATURE: Brynn Monzon RN PATIENT NAME: Robert Mccrary DATE: August 05, 2018 TIME: 4:16 PM PAGER/CONTACT #: [phone] CONSULT PROG Observed: 08/05/2018 Status: COMPLETED Source: [facility] 2:59 PM [facility] OTHER CAMPUS REPOSITORY HNO ID: [id number] Author: Suzy Jauregui (Cns) Service: Gastroenterology Author Type: Nurse Specialist Type: Consult Progress Note Filed: 08/05/2018 3:11 PM Note Text: GI CONSULT PROGRESS NOTE SERVICE DATE: 08/05/2018 SERVICE TIME: 2:59 PM CONSULTING SERVICE: Gastroenterology Subjective INTERVAL HISTORY: S/p EGD. Currently off the unit for bleeding scan. Hgb down to 7.1 today. No documentation of bloody BMs. Confirmed with manager staffing MEDICATIONS: Current hospital medications: hydrALAZINE 25 mg tab(s) (APRESOLINE) 25 mg ORAL TID amLODIPine 10 mg tab(s) (NORVASC) 10 mg ORAL DAILY calcium acetate 1,334 mg tab(s) (CALPHRON) 1,334 mg ORAL TID w MEALS pantoprazole 40 mg injection (PROTONIX) 40 mg INTRAVENOUS DAILY (6 AM) ipratropium-albuterol 3 mL nebulizer solution (DUONEB) 3 mL INHALATION q 4 H PRN heparin 1,000 unit/mL 3,200 Units injection 3,200 Units INTRALUMINAL PRN DIALYSIS lisinopril 10 mg tab(s) (ZESTRIL, PRINIVIL) 10 mg ORAL DAILY citalopram 20 mg tab(s) (CeleXA) 20 mg ORAL DAILY levothyroxine 150 mcg (SYNTHROID) 150 mcg ORAL DAILY (6 AM) ondansetron 4 mg tab(s) (ZOFRAN) 4 mg ORAL q 6 H PRN ondansetron (PF) 4 mg injection (ZOFRAN) 4 mg INTRAVENOUS q 6 H PRN acetaminophen 650 mg tab(s) (TYLENOL) 650 mg ORAL q 6 H PRN sitaGLIPtin 50 mg tab(s) (JANUVIA) 50 mg ORAL DAILY WITH BREAKFAST atorvastatin 10 mg tab(s) (LIPITOR) 10 mg ORAL AT BEDTIME Objective PHYSICAL EXAM: VITALS:BP 150/73 Pulse 81 Temp 36.4 ?C (97.5 ?F) Resp 18 Ht 177.8 cm (5' 10) Wt 81.1 kg (178 lb 12.8 oz) SpO2 100% BMI 25.66 kg/m? ABDOMEN: Unable to assess. Patient off unit DATA: Diagnostic tests reviewed for today's visit: Most recent labs and imaging results. CBC, Coags, BMP, Mg, Phos Recent Labs 08/05/1824408/04/18 1557 08/04/18 0600 08/03/18 0605 08/02/18 2050 WBC -- -- -- -- 19.26* 15.73* HB 7.1* 8.7* 7.7* < > 8.4* 8.5* HCT 22.8* 28.2* 24.4* < > 27.2* 26.7* PLT -- -- -- -- 384* 356 NA 132* 133* -- -- 135* 138 K 4.3 4.3 -- -- 4.7 3.7 CHLOR 97* 98 -- -- 101 99 CO2 24 25 -- -- 25 30 BUN 55* 47* -- -- 22* 14 CREAT 8.26* 7.59* -- -- 4.72* 4.09* GLUC 100* 73 -- -- 116* 134* CA 8.2* 8.7 -- -- 8.5 8.5 < > = values in this interval not displayed. CSF AND Dilantin Liver Function, Amylase, AND Lipase Recent Labs 08/05/1824408/04/18 1557 TPROT 6.8 7.6 ALB 2.2* 2.3* ALT 14 16 AST 14 17 ALKPHOS 47 58 TBILI 1.0 1.0 Cardiac Enzymes ABGs Recent Labs 08/03/18 0930 PH 7.476* PCO2 38.2 PO2 66.6* BE 3.7 Bleeding scan - pending EGD 08/04 - patulous GE junction. Small hiatal hernia. Undigested food in the stomach consistent with gastroparesis. Normal duodenum and duodenal bulb Impression/Recommendations Acute normocytic anemia - no overt signs of GI bleeding - but had occult positive stool. Had recent colonoscopy that showed grade II-III hemorrhoids. EGD showed visible blood in posterior pharynx (? Epistaxis or hemoptysis) with no bleeding in esophagus, stomach or duodenum - Advance diet as tolerated - Monitor Hgb/Hct - transfuse as needed - Recommend ENT evaluation for visualized blood in posterior pharynx (seen in EGD) GI will continue to follow SIGNATURE: Suzy Jauregui APRN.GEOPHYSICAL PROSPECTING SURVEYOR PATIENT NAME: Robert Mccrary DATE: August 05, 2018 TIME: 2:59 PM PAGER/CONTACT #: [phone] NURSING PROG Observed: 08/05/2018 Status: COMPLETED Source: [facility] 12:28 PM CLINIC OTHER CAMPUS REPOSITORY HNO ID: [id number] Author: Escobar (Rn) You, RN Service: Dialysis Author Type: Registered Nurse Type: Nursing Progress Note Filed: 08/05/2018 12:29 PM Note Text: Hemodialysis completed 4 hrs. TUF -3000ml, LAVF worked well. Tolerated tx. well CONSULTATION Observed: 08/05/2018 Status: F Source: [place] 11:52 AM [facility] [place] [facility] Medical Records Department [address] [place] [address] Consultation 08/02/18 1527 MR#: [id number] Acct: [id number] Name: ROBERT MCCRARY Rep #: [id number] : 1960 58 From: Vannessa Blakely DO PCP: Abran Reveles MD Status: DIS IN Y [id number] - Renal 08/02/18 PCP/ Referring MD: Requesting physician: [] Primary care physician: Abran Reveles Reason for Consultation:: ESRD HD TTS, renal mgmt - History of Present Illness History of Present Illness: The patient is a 58 year old M with a hx of 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 He has a new AV fistula that we have been using 16-gauge needles for the past week. He also has a tunneled dialysis catheter. He had issue with infiltration of his access last treatment on . He has had persistent abdominal discomfort of unclear etiology. He has anorexia that persists despite being on PPI with associated weight loss. He underwent a colonoscopy by Dr. Walker that was essentially unremarkable. Subsequently was referred to gastroenterology Dr. Murali Rueda in [place] who scheduled him for an outpatient EGD in late August. He is admitted for persistent nausea with vomiting and abdominal discomfort. He denied hematemesis, melena, hematochezia. He was found to be profoundly anemic with a hemoglobin of 5.8. He received 3 units of packed red blood cells. He was very short of breath and weak and lightheaded for the past few days. He has a history of anemia with various adverse side effects with erythropoietin therapy. He received Mircera with episodes of syncope and flank pain. This was switched over to Aranesp at the [facility]. Hemoglobin recently dropped down to 7.8 as an outpatient prior to admission after they have been steady over 11 for several weeks. General surgery recommended transfer to tertiary care center. Attempts were made to transfer him to [facility] who declined. Arrangements are made for transfer to [facility] today. Past medical history significant for type 2 diabetes mellitus, was on metformin up until the time of his admission for kidney failure in December of this year. Hypothyroidism, HTN, HLD, DAVID on CPAP, chronic leukocytosis, abdominal lymphadenopathy on CT abdomen. - Allergies Allergies: Allergies epoetin beta [From Mircera] Adverse Reaction (Verified 08/01/18 16:35) back pain - Current Medications Current Medications: Current Medications Albuterol/Ipratropium (Duoneb) 3 ml INHALATION Q6HWA.RT ROCKY Last Admin: 08/02/18 12:40 Dose: 3 ml Pantoprazole Sodium 40 mg/ (Sodium Chloride) 110 mls @ 330 mls/hr IV BID ROCKY Last Admin: 08/01/18 22:05 Dose: 330 mls/hr Magnesium Hydroxide (Milk Of Magnesia) 30 ml PO DAILY PRN PRN Reason: Constipation Nutritional Formula (Nepro Carb Steady) 120 ml PO 4X/DAY ROCKY Last Admin: 08/01/18 21:17 Dose: 120 ml Sodium Chloride () 5 - 30 ml IV UD PRN PRN Reason: SALINE FLUSH Last Admin: 08/02/18 10:12 Dose: 10 ml - Past Medical History Past Medical History (Chronic Problems): Chronic Problems (Last Reviewed 07/04/18 @ 12:49 by Kady Freire) ESRD (end stage renal disease) (Chronic) Lymphadenopathy (Chronic) Hyperlipidemia (Chronic) Hypothyroidism (Chronic) Hypertension (Chronic) Type II diabetes mellitus (Chronic) - Past Surgical History Surgical History: - - Social History Smoking Status: Never smoker - Family History Maternal Family History: Family History (Last Reviewed 07/04/18 @ 12:49 by Kady Freire) Father No problems noted. History Items: Diabetes Paternal Family History: Family History (Last Reviewed 07/04/18 @ 12:49 by Kady Freire) Father No problems noted. History Items: Stroke Review of Systems Constitutional: Reports: Anorexia, Fever, Weakness, Fatigue. Denies: Chills Cardiovascular: Reports: Edema. Denies: Chest Pain Respiratory: Reports: Cough, Shortness of Breath, Shortness of breath upon exertion, Wheezing Gastrointestinal: Reports: Abdominal Pain, Nausea, Vomiting. Denies: Constipation, Diarrhea, Hematemesis, Hematochezia, Melena Genitourinary: Denies: Dysuria Musculoskeletal: Denies: Arm Pain, Joint swelling Skin: Denies: Rash Neurological: Denies: Balance problems Psychiatric: Reports: Anxiety, Depression Hematologic/ Lymphatic: Reports: Anemia. Denies: Hx of blood clot Patient Problems: Active and Suspected Problems (Last Reviewed 07/04/18 @ 12:49 by Kady Freire) Anemia (Acute) Blood loss anemia (Acute) Chronic renal failure, stage 4 (severe) (Acute) - Physical Exam General: Alert, Oriented x3, Cooperative, No apparent distress HEENT: PERRLA, EOMI Oral: Dry Mucosa Neck: Supple Lungs: Clear to auscultation Cardiovascular: Regular rate Abdomen: Bowel Sounds Present, Soft, Non Tender, Non-Distended Extremities: No edema Skin: No rashes Musculoskeletal: No Muscle Wasting Psych/Mental Status: Normal Affect, Appropriate, Alert and oriented to time, place, person, mood and affect Vital Signs Temp Pulse Resp BP Pulse Ox 98.5 F 81 16 143/81 H 95 08/02/18 10:08 08/02/18 12:45 08/02/18 12:45 08/02/18 11:22 08/02/18 10:08 Oxygen Flow Rate (L/min) 8 Oxygen Delivery Method Nasal Cannula Weight: 85 kg Body Mass Index (BMI) 26.9 Intake and Output for Last 24 Hours Intake Total 416 / 416 847 / 847 Balance 416 / 416 847 / 847 Laboratory Tests Past 24 Hrs Clinical Impression(s) from Imaging Studies Chest X-Ray 08/01/18 13:20 IMPRESSION: Bilateral airspace disease suggestive of pulmonary edema. Infection should be ruled out if clinically indicated. Electronically Signed: Godwin Palmer MD at 13:47 EDT Tel [phone], Service support , Assessment/Plan All Active Problems (Last Reviewed 07/04/18 @ 12:49 by Kady Freire) Screening for intestinal cancer (Acute) Anemia (Acute) Blood loss anemia (Acute) Enteritis (Acute) Chronic renal failure, stage 4 (severe) (Acute) Chronic renal insufficiency, stage V (Acute) ELMO (acute kidney injury) (Acute) Hyperkalemia (Acute) Community acquired pneumonia (Acute) 1. ESRD due to interstitial nephritis on hemodialysis TTS. Seen on dialysis. tolerated 3.5L fluid removal. Creatinine at 9-10 upon presentation to the hospital back in December. Unresponsive to steroid therapy. Has left forearm AVF we have been using with 16g needles x1 week. Infiltration event at chronic center x1. Also has tunneled dialysis catheter. Seen on dialysis today with with 3.5 L fluid removal. Shortness of breath improved along with his cough. Chest x-ray with interstitial alveolar infiltrates. 2. Acute anemia rule out GI bleed s/p 3 units packed red blood cell infusion. Epo 10K units 1 subcu today. Transferred to [facility] for endoscopic workup. 3. Type II diabetes mellitus stable managed by primary care 4. Hypertension stable 5. Persistent abdominal pain with weight loss, lymphadenopathy. Etiology unknown. 6. Leukocytosis etiology unknown 08/05/18 1152 <Electronically signed by Vannessa Blakely DO> Date Vannessa Blakely DO Cosigner Signature (if applicable): Date CC: Vannessa Blakely DO; Abran Reveles MD; Amanda Hart MD Signed PROGRESS Observed: 08/05/2018 Status: COMPLETED Source: [facility] 9:27 AM CLINIC OTHER CAMPUS REPOSITORY HNO ID: [id number] Author: Sky Acosta Service: Nephrology Author Type: Physician Type: Progress Notes Filed: 08/05/2018 9:28 AM Note Text: Patient was seen on dialysis Diagnosis. ESRD Access. Left arm AVF, still has RIJ TDC in Blood flow 350 BP 135/65 UF 3-4 L No complaints. Hb dropped again. UGI endoscopy negative. Reviewed Colonoscopy reports from [facility]. No significant findings except for grade 2-3 hemorrhoids. HCT Collected: 08/05/2018 Status: F Source: [facility] 2:45 AM HEALTH SYSTEM REPOSITORY TYPE CODE TESTS RESULT OUT OF RANGE REFERENCE UNITS LAB HCTI(LOINC) 40.1-51.0 % Low Hct 22.8 Performed By: #### HCTI #### [place] [address] HGB Collected: 08/05/2018 Status: F Source: [facility] 2:45 AM HEALTH SYSTEM REPOSITORY TYPE CODE TESTS RESULT OUT OF RANGE REFERENCE UNITS LAB HGBI(LOINC) 13.7-17.5 g/dL Low Hgb 7.1 Performed By: #### HGBI #### [place] [address] COMPREHENSIVE PANEL Collected: 08/05/2018 Status: F Source: [facility] 2:45 AM HEALTH SYSTEM REPOSITORY TYPE CODE TESTS RESULT OUT OF REFERENCE UNITS RANGE LAB NA(LOINC) 136-145 mEq/L Low Sodium Blood 132 LAB K(LOINC) 3.5-5.1 mEq/L Potassium Blood 4.3 LAB CL(LOINC) 98-107 mEq/L Low Chloride Blood 97 LAB CO2(LOINC) 21-32 mEq/L CO2 Blood 24 LAB GLU(LOINC) 70-99 mg/dL Glucose High Blood 100 LAB BUN(LOINC) 7-18 mg/dL BUN Blood High 55 LAB CREA(LOINC 0.67-1.17 mg/dL ) Creatinine High Blood 8.26 LAB CA(LOINC) 8.5-10.1 mg/dL Low Calcium Blood 8.2 LAB ALB(LOINC) 3.4-5.0 g/dL Low Albumin Blood 2.2 LAB TP(LOINC) 6.4-8.2 g/dL Total Protein 6.8 LAB AST(LOINC) 9-37 U/L AST-SGOT Blood 14 LAB ALT(LOINC) 12-78 U/L ALT-SGPT Blood 14 LAB ALKP(LOINC 46-116 U/L ) Alk Phosphatase 47 LAB BILIT(LOIN 0.2-1.0 mg/dL C) Total Bilirubin 1.0 LAB ANGAP(LOIN 8-16 C) Anion Gap 15 Performed By: #### P14 #### [place] [address] PROGRESS Observed: 08/04/2018 Status: COMPLETED Source: [facility] 5:13 PM CLINIC OTHER CAMPUS REPOSITORY HNO ID: [id number] Author: Carlos Mei Service: Hospital Medicine Author Type: Physician Type: Progress Notes Filed: 08/04/2018 5:22 PM Note Text: INPATIENT PROGRESS NOTE After 7pm, please call cross cover pager #[phone] SERVICE DATE: August 04, 2018 SERVICE TIME: 5:13 PM PRIMARY SERVICE: Hospital Medicine Subjective CHIEF COMPLAINT: Here for : problems listed below Active Hospital Problems Diagnosis Date Noted - Melena 08/02/2018 - Hypothyroidism 08/03/2018 - Hypoxia 08/03/2018 - Acute blood loss anemia 08/02/2018 - ESRD (end stage renal disease) ([facility]) 08/02/2018 - DM (diabetes mellitus), type 1 with neurological complications ([facility]) 08/02/2018 - Essential hypertension 08/02/2018 INTERVAL HPI: SOB improved after dialysis, attempting to wean O2 today HEENT: Negative for nasal congestion and post-nasal drip CARDIOVASCULAR: Negative for palpitations GI: negative for nausea/ emesis : negative for dysuria, urgency , frequency MUSCULOSKELETAL: negative for pains/aches SKIN: Negative for rash PSYCH: Negative for active stressors, depression and anxiety ENDOCRINE: Negative for polyuria and polydipsia NEURO: Negative for cognitive changes and morning headaches All other review of systems reviewed and are negative unless other darby stated in the HPI or the ROS Current hospital medications: pantoprazole 40 mg injection (PROTONIX) 40 mg INTRAVENOUS DAILY (6 AM) ipratropium-albuterol 3 mL nebulizer solution (DUONEB) 3 mL INHALATION q 4 H PRN heparin 1,000 unit/mL 3,200 Units injection 3,200 Units INTRALUMINAL PRN DIALYSIS lisinopril 10 mg tab(s) (ZESTRIL, PRINIVIL) 10 mg ORAL DAILY citalopram 20 mg tab(s) (CeleXA) 20 mg ORAL DAILY levothyroxine 150 mcg (SYNTHROID) 150 mcg ORAL DAILY (6 AM) ondansetron 4 mg tab(s) (ZOFRAN) 4 mg ORAL q 6 H PRN ondansetron (PF) 4 mg injection (ZOFRAN) 4 mg INTRAVENOUS q 6 H PRN acetaminophen 650 mg tab(s) (TYLENOL) 650 mg ORAL q 6 H PRN sitaGLIPtin 50 mg tab(s) (JANUVIA) 50 mg ORAL DAILY WITH BREAKFAST atorvastatin 10 mg tab(s) (LIPITOR) 10 mg ORAL AT BEDTIME Objective PHYSICAL EXAM: BP 134/74 Pulse 85 Temp (Src) 97.9 (Oral) Resp 16 Ht 5' 10 (1.78m) Wt 178 lb 12.8 oz (81.1kg) SpO2 97% BMI 25.66 kg/(m2). Constitutional - Vitals as above, not in acute distress Resp - Clear to auscultate both sides, no wheezes, crackles or rales, no labored breathing CVS- RRR. No murmur, gallop or rub, pulse 2+ GI - NTND, bowel sounds normally heard, no mass palpable GEOPHYSICAL PROSPECTING SURVEYOR- cranial nerves 2 to 12 grossly intact, no focal motor or sensory deficits noted, speech normal/ Psych- A ANDO x 3, mood normal Skin- Normal tugor, no ulcers or rashes DATA: Diagnostic tests reviewed for today's visit: Most recent labs and imaging results. Hemoglobin (g/dL) Date Value 11/03/2012 13.4 HGB (g/dL) Date Value 08/04/2018 8.7 Hematocrit (%) Date Value 08/04/2018 28.2 WBC (thou/cmm) Date Value 08/03/2018 19.26 Glucose (mg/dL) Date Value 08/04/2018 73 Potassium (mEq/L) Date Value 08/04/2018 4.3 Sodium (mEq/L) Date Value 08/04/2018 133 Chloride (mEq/L) Date Value 08/04/2018 98 CO2 (mEq/L) Date Value 08/04/2018 25 Creatinine (mg/dL) Date Value 08/04/2018 7.59 BUN (mg/dL) Date Value 08/04/2018 47 Anion Gap (no units) Date Value 08/04/2018 14 Calcium (mg/dL) Date Value 08/04/2018 8.7 Protein, Total (g/dL) Date Value 08/04/2018 7.6 Albumin (g/dL) Date Value 08/04/2018 2.3 Bilirubin, Total (mg/dL) Date Value 08/04/2018 1.0 Alkaline Phosphatase (U/L) Date Value 08/04/2018 58 AST (U/L) Date Value 08/04/2018 17 ALT (U/L) Date Value 08/04/2018 16 Assessment/Plan Principal Problem: Acute hypoxic respiratory failure : I have ordered an extensive workup including EKG and chest x-ray ventilation/perfusion scan ABGs. It seems that the patient on chest x-ray has pulmonary edema. I asked the patient if he has any cardiac condition he stated that there was an echo done approximately 3 days ago when he was in was temperature that showed possible heart failure. At a conversation with the senior talent acquisition specialist regarding diuresing the patient. He ordered Lasix 80 mg IV, and the patient will go to dialysis today and they will try to remove 3-4 L of fluids. Graciously, senior talent acquisition specialist also has access to records, he will present to the echocardiogram and place it on the chart tomorrow. This could be either CHF exacerbation or fluid overload.I placed him on continuous pulse ox and monitor monitoring for now also. August 04, 2018 ----> echo results sent by nephrology , Normal EF, no DD. Most likely was fluid overloaded. . I will attempt to wean O2 today. Melena POA: Yes Assessment AND Plan: gastroenterology on board, every 8 hourshemoglobin and hematocrit shows decreasehe status post 3 units of PRBCs. We'll continue to monitor for bleeding. I I've sent for type and screen again and we'll consent the patient tonight. * ------>August 04, 2018 , patient went for EGD today , awaiting GI recs, H/H stable ESRD (end stage renal disease) ([facility]) POA: Yes Assessment AND Plan: dialysis today per nephrology DM (diabetes mellitus), type 1 with neurological complications ([facility]) POA: Yes Assessment AND Plan: continue home Januvia every 4 checks of blood glucose. for now appears to be close to normal glycemic Essential hypertension POA: Yes Assessment AND Plan: mildly hypertensive today, however he will undergo dialysis we'll reevaluate tomorrow August 04, 2018----> restarted home meds today Hypothyroidism POA: Unknown Assessment AND Plan: continue home medications Resolved Problems: * No resolved hospital problems. * Medication and Non-Pharmacologic VTE Prophylaxis/Anticoagulants Anticoagulant AND Antiplatelet Medications Start Dose Route Frequency Ordered Stop 08/03/18 1335 heparin 1,000 unit/mL 3,200 Units injection 3,200 Units INTRALUMINAL PRN DIALYSIS 08/03/18 1336 -- 08/03/18 0030 pneumatic compression stockings ([place]) 08/02/181999 vte non-pharmacologic prophylaxis - none indicated (id,ks) 08/02/181999 activity - mobilize patient ([place]) VTE Prophylaxis: reviewed the heparin protocol, have DC'd the heparin 5000 twice a day due to active bleeding. Dispo: pending GI recommendations SIGNATURE: Carlos Mei MD PATIENT NAME: Robert Mccrary DATE: August 04, 2018 TIME: 5:21 PM PAGER: emma Coffman , After 7pm, please call cross cover pager #[phone] HGB Collected: 08/04/2018 Status: F Source: [facility] 3:57 PM HEALTH SYSTEM REPOSITORY TYPE CODE TESTS RESULT OUT OF RANGE REFERENCE UNITS LAB HGBI(LOINC) 13.7-17.5 g/dL Low Hgb 8.7 Performed By: #### HGBI #### [facility] [address] [place] [address] HCT Collected: 08/04/2018 Status: F Source: [facility] 3:57 PM HEALTH SYSTEM REPOSITORY TYPE CODE TESTS RESULT OUT OF RANGE REFERENCE UNITS LAB HCTI(LOINC) 40.1-51.0 % Low Hct 28.2 Performed By: #### HCTI #### [facility] [address] [place] [address] COMPREHENSIVE PANEL Collected: 08/04/2018 Status: F Source: [facility] 3:57 PM HEALTH SYSTEM REPOSITORY TYPE CODE TESTS RESULT OUT OF REFERENCE UNITS RANGE LAB NA(LOINC) 136-145 mEq/L Low Sodium Blood 133 LAB K(LOINC) 3.5-5.1 mEq/L Potassium Blood 4.3 LAB CL(LOINC) 98-107 mEq/L Chloride Blood 98 LAB CO2(LOINC) 21-32 mEq/L CO2 Blood 25 LAB GLU(LOINC) 70-99 mg/dL Glucose Blood 73 LAB BUN(LOINC) 7-18 mg/dL BUN Blood High 47 LAB CREA(LOINC 0.67-1.17 mg/dL ) Creatinine High Blood 7.59 LAB CA(LOINC) 8.5-10.1 mg/dL Calcium Blood 8.7 LAB ALB(LOINC) 3.4-5.0 g/dL Low Albumin Blood 2.3 LAB TP(LOINC) 6.4-8.2 g/dL Total Protein 7.6 LAB AST(LOINC) 9-37 U/L AST-SGOT Blood 17 LAB ALT(LOINC) 12-78 U/L ALT-SGPT Blood 16 LAB ALKP(LOINC 46-116 U/L ) Alk Phosphatase 58 LAB BILIT(LOIN 0.2-1.0 mg/dL C) Total Bilirubin 1.0 LAB ANGAP(LOIN 8-16 C) Anion Gap 14 Performed By: #### P14 #### [facility] [address] [place] [address] PROGRESS Observed: 08/04/2018 Status: COMPLETED Source: [facility] 10:45 AM CLINIC OTHER CAMPUS REPOSITORY HNO ID: [id number] Author: Marco Antonio Rodney Service: Nephrology Author Type: Physician Type: Progress Notes Filed: 08/04/2018 11:02 AM Note Text: Nephrology Progress Note Following for ESRD. Pt denies CP. SOB is better. No increase in edema. Current Inpatient Medications: Current Facility-Administered Medications Ordered in Epic: pantoprazole 40 mg injection (PROTONIX) 40 mg INTRAVENOUS DAILY (6 AM) Ilene Tetyuk 40 mg at 08/04/18 0604 ipratropium-albuterol 3 mL nebulizer solution (DUONEB) 3 mL INHALATION q 4 H PRN Carlos Mei 3 mL at 08/03/18 09 heparin 1,000 unit/mL 3,200 Units injection 3,200 Units INTRALUMINAL PRN DIALYSIS Sky Acosta lisinopril 10 mg tab(s) (ZESTRIL, PRINIVIL) 10 mg ORAL DAILY Ilene Tetyuk 10 mg at 08/03/18 08 citalopram 20 mg tab(s) (CeleXA) 20 mg ORAL DAILY Ilene Tetyuk 20 mg at 08/03/18 08 levothyroxine 150 mcg (SYNTHROID) 150 mcg ORAL DAILY (6 AM) Ilene Tetyuk 150 mcg at 08/04/18 0604 ondansetron 4 mg tab(s) (ZOFRAN) 4 mg ORAL q 6 H PRN Ilene Tetyuk Or ondansetron (PF) 4 mg injection (ZOFRAN) 4 mg INTRAVENOUS q 6 H PRN Ilene Tetyuk acetaminophen 650 mg tab(s) (TYLENOL) 650 mg ORAL q 6 H PRN Ilene Tetyuk sitaGLIPtin 50 mg tab(s) (JANUVIA) 50 mg ORAL DAILY WITH BREAKFAST Ilene Tetyuk 50 mg at 08/03/18 08 atorvastatin 10 mg tab(s) (LIPITOR) 10 mg ORAL AT BEDTIME Ilene Tetyuk 10 mg at 08/03/181955 No current Epic-ordered outpatient prescriptions on file. Vitals: BP 130/53 Pulse 73 Temp 36.6 ?C (97.9 ?F) (Oral) Resp 16 Ht 177.8 cm (5' 10) Wt 81.1 kg (178 lb 12.8 oz) SpO2 98% BMI 25.66 kg/m? BLOOD PRESSURE RANGE: Systolic (24hrs), Av , Min:130 , Max:162 ; Diastolic (24hrs), Av, Min:38, Max:82 24HR INTAKE/OUTPUT: Intake/Output Summary (Last 24 hours) at 08/04/18 1046 Last data filed at 08/04/18 0937 Gross per 24 hour Intake 860 ml Output 3700 ml Net -2840 ml Physical exam: Constitutional: NAD Skin: no rash, turgor wnl Heent: mmm Neck: no bruits or jvd noted Cardiovascular: S1, S2 normal Respiratory: CTAB Abdomen: +bs, soft, nt, nd Ext: no lower extremity edema Data: Labs: Recent Labs 08/04/18 0600 08/03/18 2200 08/03/18 1415 08/03/18 0605 08/02/182049 WBC -- -- -- 19.26* 15.73* HB 7.7* 8.1* 7.4* 8.4* 8.5* HCT 24.4* 25.9* 24.0* 27.2* 26.7* MCV -- -- -- 88.0 86.1 PLT -- -- -- 384* 356 Recent Labs 08/03/18 0608/02/182049 NA 135* 138 K 4.7 3.7 CO2 25 30 BUN 22* 14 CREAT 4.72* 4.09* CA 8.5 8.5 Assessment and Plan 1. ESRD. Usually dialyzes on TTS at [facility]. Dr. Blakely is his primary senior talent acquisition specialist. Will arrange for dialysis tomorrow on his usual schedule. No need for dialysis today. 2. Dyspnea. Improved but not back to baseline. Will continue O>I with HD tomorrow. Echo (from [facility]) did not show systolic dysfunction per Dr. Acosta. Suspect pulmonary edema may be due to volume OL. Will continue more UF with dialysis tomorrow. Will need to establish a new TW (Current TW is 87 kg at out dialysis center). 3. Anemia. Likely partly due to CKD. Continue ARSH with HD. Has a history of melena but EGD did not show active bleed. Will continue to hold heparin with HD since Hgb is still declining. Further work up for anemia as per hospitalist. 4. HTN. BP is controlled. Continue current med (lisinopril). Watch BP as we establish new TW. Please do not hesitate to contact me at [phone] if there is any question or concern. Poppy Moctezuma MD (Marco Antonio Rodney) ANES POST Observed: 08/04/2018 Status: COMPLETED Source: [facility] 10:36 AM [facility] OTHER CAMPUS REPOSITORY O ID: [id number] Author: Lobito Moraes Service: Anesthesiology Author Type: Physician Type: Anesthesia PostOp Filed: 08/04/2018 10:36 AM Note Text: POST ANESTHESIA EVALUATION NOTE SERVICE DATE: 08/04/2018 SERVICE TIME: 10:36 AM : 1960 Vitals: 08/03/18 1635 08/03/18 2156 08/04/18 0230 08/04/18 0611 Temp: 36.8 ?C (98.2 ?F) 36.6 ?C (97.9 ?F) 36.8 ?C (98.2 ?F) 36.6 ?C (97.9 ?F) 08/04/18 0734 08/04/18 0738 08/04/18 0935 08/04/18 0953 BP: 147/69 149/74 (!) 140/38 130/53 08/04/18 0734 08/04/18 0738 08/04/18 0935 08/04/18 0953 Pulse: 79 80 76 73 08/04/18 0738 08/04/18 0935 08/04/18 0953 08/04/18 1020 Resp: 18 18 18 16 08/04/18 0738 08/04/18 0935 08/04/18 0953 08/04/18 1020 SpO2: 100% (!) 85% 92% 98% Validated Vital Signs: Yes POST ANES STATUS: No apparent anesthetic complications. The patient is appropriately hydrated with stable respiratory and cardiovascular status. Patient has safe and adequate airway control. The patient has appropriate pain relief and no significant post operative nausea or vomiting. The patient has achieved baseline mental status. Intra-Operative Events: No Significant Anesthesia Events Further assessment by Anesthesia Service: None Other Remarks: SIGNATURE: Lobito Moraes MD PATIENT NAME: Robert Mccrary DATE: August 04, 2018 TIME: 10:36 AM PAGER/CONTACT #: [phone] BRIEF OP NOT Observed: 08/04/2018 Status: COMPLETED Source: [facility] 9:32 AM [facility] REPOSITORY HNO ID: [id number] Author: Jadiel Rae Service: Gastroenterology Author Type: Physician Type: Brief Op Note Filed: 08/04/2018 9:37 AM Note Text: BRIEF OPERATIVE / PROCEDURE NOTE LOG ID: [id number] SURGERY/PROCEDURE DATE: 08/04/2018 INCISION/PROCEDURE START TIME: 9:24 AM INCISION CLOSE/PROCEDURE END TIME: 9:27 AM SURGEON(S)/PROCEDURALIST(S) AND OXIDATION OPERATOR(S): Surgeon(s) and Role: * Jadiel Rae - Primary No Additional Staff PROCEDURE(S): EGD +/- Dilatation and Biopsy ANESTHESIA: Monitored Anesthesia Care FINDINGS: patulous GE junction, and undigested food in stomach reflective of gastroparesis. Blood noted in posterior pharynx epistaxis vs hemoptysis. No definite UGI source of bleeding ESTIMATED BLOOD LOSS: Minimal SPECIMENS: * No specimens in log * COMPLICATIONS: None PRE-OP/PRE-PROCEDURE DIAGNOSIS: Anemia POST-OP/POST-PROCEDURE DIAGNOSIS: * No post-op diagnosis entered * SIGNATURE: Jadiel Rae MD PATIENT NAME: Robert Mccrary DATE: August 04, 2018 TIME: 9:33 AM PAGER/CONTACT #: ANES PREOP Observed: 08/04/2018 Status: COMPLETED Source: [facility] 8:17 AM [facility] REPOSITORY HNO ID: [id number] Author: Lobito Moraes Service: Anesthesiology Author Type: Physician Type: Anesthesia PreOp Filed: 08/04/2018 8:19 AM Note Text: ANESTHESIOLOGY DAY OF SURGERY NOTE SERVICE DATE: 08/04/2018 SERVICE TIME: 8:17 AM : 1960 Procedure(s) (LRB): EGD (Left) Surgeon(s): Jadiel Rae Estimated body mass index is 25.66 kg/m? as calculated from the following: Height as of this encounter: 177.8 cm (5' 10). Weight as of this encounter: 81.1 kg (178 lb 12.8 oz). Most recent hematocrit and potassium results: Hematocrit 24.4 08/04/2018 Potassium 4.7 08/03/2018 ANES DOS/PREOP NOTE: Vitals: 08/04/18 0230 08/04/18 0611 08/04/18 0734 08/04/18 0738 BP: 146/71 138/67 147/69 149/74 Pulse: 74 79 79 80 Resp: Temp: 36.8 ?C (98.2 ?F) 36.6 ?C (97.9 ?F) TempSrc: Oral Oral SpO2: 95% 97% 100% 100% Weight: Height: ACTIVE PROBLEM LIST Umbilical Hernia Without Mention of Obstruction Or Gangrene Melena Acute Blood Loss Anemia Esrd (End Stage Renal Disease) (Hcc) Dm (Diabetes Mellitus), Type 1 With Neurological Complications (Hcc) Essential Hypertension Blood Loss Anemia Hypothyroidism Hypoxia PAST MEDICAL HISTORY Diagnosis Date - Depression - DM (diabetes mellitus) (HCC) - ESRD (end stage renal disease) (HCC) - HTN (hypertension) - Hyperlipidemia - Hypothyroid PAST SURGICAL HISTORY Procedure Laterality Date - HERNIA REPAIR HX 1983 inguinal - REPAIR UMBILICAL JAMES,5+Y/O,REDUC 11/19/12 with mesh FAMILY HISTORY Problem Relation Age of Onset - Alcohol/Drug Sister - Stroke Father - Heart Father Social History: Social History Substance Use Topics - Smoking status: Never Smoker - Smokeless tobacco: Current User Types: Snuff - Alcohol use Not on file Comment: 1/month No current facility-administered medications on file prior to encounter. Current Outpatient Prescriptions on File Prior to Encounter: acetaminophen-HYDROcodone 5-500 mg tablet Take 1-2 tablets by mouth every 4 hours as needed. SIMVASTATIN 20 mg tablet once daily. LISINOPRIL 10 mg tablet once daily. SYNTHROID 150 mcg tablet once daily. CITALOPRAM 20 mg tablet once daily. KOMBIGLYZE XR 2.5-1,000 mg TM24 twice daily. Current Facility-Administered Medications: pantoprazole 40 mg injection (PROTONIX) 40 mg INTRAVENOUS DAILY (6 AM) Ilene Calderónuk 40 mg at 08/04/18 06 ipratropium-albuterol 3 mL nebulizer solution (DUONEB) 3 mL INHALATION q 4 H PRN Carlos Mei 3 mL at 08/03/18 09 heparin 1,000 unit/mL 3,200 Units injection 3,200 Units INTRALUMINAL PRN DIALYSIS Sky Acosta lisinopril 10 mg tab(s) (ZESTRIL, PRINIVIL) 10 mg ORAL DAILY Ilene Tetyuk 10 mg at 08/03/18 08 citalopram 20 mg tab(s) (CeleXA) 20 mg ORAL DAILY Ilene Tetyuk 20 mg at 08/03/18 08 levothyroxine 150 mcg (SYNTHROID) 150 mcg ORAL DAILY (6 AM) Ilene Tetyuk 150 mcg at 08/04/18 06 ondansetron 4 mg tab(s) (ZOFRAN) 4 mg ORAL q 6 H PRN Ilene Tetyuk Or ondansetron (PF) 4 mg injection (ZOFRAN) 4 mg INTRAVENOUS q 6 H PRN Ilene Tetyuk acetaminophen 650 mg tab(s) (TYLENOL) 650 mg ORAL q 6 H PRN Ilene Tetyuk sitaGLIPtin 50 mg tab(s) (JANUVIA) 50 mg ORAL DAILY WITH BREAKFAST Ilene Tetyuk 50 mg at 08/03/18 08 atorvastatin 10 mg tab(s) (LIPITOR) 10 mg ORAL AT BEDTIME Ilene Tetyuk 10 mg at 08/03/181955 Allergies: ALLERGIES No Known Allergies DOS EXAM: Adequate NPO status: Yes Anesthetic risks, benefits, alternatives, personnel and consent discussed: Yes Patient agrees to proceed: Yes Previous Anesthesia: No history of adverse event. Airway Assessment: MP 2; Neck ROM: Full ROM without neurologic symptoms; Airway Evaluation: No significant abnormalities Symptoms of Sleep Apnea: Hypertension, Age over 50 (58 year old) and Male gender Dentition: Teeth intact. Denies loose teeth or caps Additional Physical Exam: Lungs: Patient health status unchanged since recent history and physical. See history and physical for exam findings. Cardiac: Patient health status unchanged since recent history and physical. See history and physical for exam findings. Additional Pertinent Findings: N/A Blood Products: Not anticipated for this procedure. Anesthetic Plan: MAC with Sedation Pain Management Plan: Parenteral or Oral ASA Class: 4 Other Medical Problems: GIB, anemia s/p 3 units PRBC (Hgb 5.9 to 7.7 this AM), ESRD s/p HD/UF yesterday, pulmonary edema likely 2/2 volume overload that improved with diuresis, DM2, HTN, DAVID on BIPAP, hypothyroid Chronic Beta Gabby medication administered within 24 hours: N/A I have interviewed and examined the patient. I have reviewed the medical record and/or the pre-anesthesia evaluation, pertinent labs, and test results. Significant changes in the patient's condition since the History and Physical, not otherwise documented in primary service progress notes: No This contains updated information obtained within 48 hours of Surgery/Procedure. SIGNATURE: Lobito Moraes MD PATIENT NAME: Robert Mccrary DATE: August 04, 2018 TIME: 8:17 AM CSN: [id number] PT ED Observed: 08/04/2018 Status: COMPLETED Source: [facility] 7:44 AM [facility] OTHER CAMPUS REPOSITORY O ID: [id number] Author: Keiko (Rn) SILVANA Valdez Service: (none) Author Type: Registered Nurse Type: Patient Education Filed: 08/04/2018 7:45 AM Note Text: PRE OP LEARNING ASSESSMENT PROCEDURE/SURGERY: GI PROCEDURES: EGD READINESS TO LEARN COGNITIVE ABILITY: Alert and oriented MOTIVATION TO LEARN: Interested FAMILY SUPPORT: Unable to assess - Family not present PATIENT LEARNS BEST BY: Verbal Instruction FACTORS AFFECTING LEARNING: None PHYSICAL LIMITATIONS AFFECTING LEARNING: None Electronically Signed By: Keiko Valdez RN In Department: [place] [id number] TCU/MED HGB Collected: 08/04/2018 Status: F Source: [facility] 6:00 AM HEALTH SYSTEM REPOSITORY TYPE CODE TESTS RESULT OUT OF RANGE REFERENCE UNITS LAB HGBI(LOINC) 13.7-17.5 g/dL Low Hgb 7.7 Performed By: #### HGBI #### [address] [address] HCT Collected: 08/04/2018 Status: F Source: [facility] 6:00 AM HEALTH SYSTEM REPOSITORY TYPE CODE TESTS RESULT OUT OF RANGE REFERENCE UNITS LAB HCTI(LOINC) 40.1-51.0 % Low Hct 24.4 Performed By: #### HCTI #### [place] [address] OPERATIVE NO Observed: 08/04/2018 Status: COMPLETED Source: [facility] 12:00 AM CLINIC OTHER CAMPUS REPOSITORY [facility] ID: [id number] Author: Jadiel Rae Service: Gastroenterology Author Type: Physician Type: Operative Report Filed: 08/12/2018 9:33 AM Note Text: [facility] - Operative Report SURGEON: Jadiel Rae MD PATIENT NAME: ROBERT MCCRARY CSN: [id number] DATE OF SURGERY: 08/04/2018 DATE OF : 1960 SEX/AGE: M/58 PATIENT TYPE: I HOSP SVC: INT LOCATION: [id number] DATE OF SURGERY: 08/04/2018 SURGEON: Jadiel Rae MD NAME OF PROCEDURE: Esophagogastroduodenoscopy. INDICATION: Anemia. POSTPROCEDURE DIAGNOSES: 1. Blood noted in the posterior pharynx, hence epistaxis versus hemoptysis cannot be ruled out. 2. Patulous gastroesophageal junction. 3. Small hiatal hernia. 4. Gastroparesis. 5. No obvious source of upper gastrointestinal bleeding. PROCEDURE NOTE: An informed consent was obtained after discussing risks. Among risks discussed were not limited to perforation, bleeding, infection, and effects of sedation. The patient was placed in left decubitus position. Sedation was provided per Anesthesia. An EGD scope passed per oral route and advanced under direct visualization to the descending duodenum. Following are the findings. 1. Esophagus: GE junction noted to be patulous. There was also a small hiatal hernia noted. 2. Stomach: In the body of the stomach and fundus, there were undigested food reflective of gastroparesis. No gross blood noted. No gross bleeding in the stomach seen. 3. Duodenal bulb normal. 4. Descending duodenum normal. ASSESSMENT: 1. In view of blood in the posterior pharynx, an epistaxis, posterior nasal bleeding and hemoptysis may have to be ruled out. 2. Gastroparesis. 3. Patulous gastroesophageal junction. PLAN: To keep the patient on clear liquid diet to monitor hemoglobin and hematocrit and to pursue other sources of bleeding as mentioned above. Jadiel Rae MD Gastroenterology SMA:modl /[id number] cc:Jadiel Rae MD HGB Collected: 08/03/2018 Status: F Source: [facility] 10:00 PM HEALTH SYSTEM REPOSITORY TYPE CODE TESTS RESULT OUT OF RANGE REFERENCE UNITS LAB HGBI(LOINC) 13.7-17.5 g/dL Low Hgb 8.1 Performed By: #### HGBI #### [place] [address] HCT Collected: 08/03/2018 Status: F Source: [facility] 10:00 PM HEALTH SYSTEM REPOSITORY TYPE CODE TESTS RESULT OUT OF RANGE REFERENCE UNITS LAB HCTI(LOINC) 40.1-51.0 % Low Hct 25.9 Performed By: #### HCTI #### [place] [address] ABO/RH CONFIRMATION Collected: 08/03/2018 Status: F Source: [facility] 10:00 PM HEALTH SYSTEM REPOSITORY TYPE CODE TESTS RESULT OUT OF REFERENCE UNITS RANGE LAB ABO(LOINC) A ABO Group LAB OSTEOPATHIC RESIDENT(LOINC) RH Type Positive Performed By: #### ABOCK #### [place] [address] TYPE AND SCREEN Collected: 08/03/2018 Status: F Source: [facility] 6:15 PM HEALTH SYSTEM REPOSITORY TYPE CODE TESTS RESULT OUT OF REFERENCE UNITS RANGE LAB ABO(LOINC) A ABO Group LAB OSTEOPATHIC RESIDENT(LOINC ) RH Type Positive LAB ABSCR(LOIN C) Antibody NEGATIVE Screen LAB BBCMT(LOIN C) Comment See Below Result Comment: Screen &/or Xmatch expires in 3 days at 12 midnight. Redraw patient at that time. Performed By: #### T&S #### [place] [address] NURSING PROG Observed: 08/03/2018 Status: COMPLETED Source: [facility] 5:08 PM CLINIC OTHER CAMPUS REPOSITORY [facility] ID: [id number] Author: Caitlin (Rn) SILVANA Cornejo Service: (none) Author Type: Registered Nurse Type: Nursing Progress Note Filed: 08/03/2018 5:08 PM Note Text: Dr Mei notified of sepsis advisory note PROGRESS Observed: 08/03/2018 Status: COMPLETED Source: [facility] 4:55 PM CLINIC OTHER CAMPUS REPOSITORY [facility] ID: [id number] Author: Stormy FaustinRn) SILVANA Hopkins Service: Dialysis Author Type: Registered Nurse Type: Progress Notes Filed: 08/03/2018 4:56 PM Note Text: IUF completed x 2.5 hrs. 3500ml fluid removal. Access via right chest HD cath. Pt stable post tx. See HD flowsheet on chart for details. PROGRESS Observed: 08/03/2018 Status: COMPLETED Source: [facility] 4:32 PM CLINIC OTHER CAMPUS REPOSITORY [facility] ID: [id number] Author: Carlos Mei Service: Hospital Medicine Author Type: Physician Type: Progress Notes Filed: 08/03/2018 4:51 PM Note Text: INPATIENT PROGRESS NOTE After 7pm, please call cross cover pager #[phone] SERVICE DATE: 08/03/2018 SERVICE TIME: 4:43 PM PRIMARY SERVICE: Hospital Medicine Subjective CHIEF COMPLAINT: Here for : problems listed below Active Hospital Problems Diagnosis Date Noted - Melena 08/02/2018 - Hypothyroidism 08/03/2018 - Acute blood loss anemia 08/02/2018 - ESRD (end stage renal disease) ([facility]) 08/02/2018 - DM (diabetes mellitus), type 1 with neurological complications ([facility]) 08/02/2018 - Essential hypertension 08/02/2018 INTERVAL HPI: Last night started having sob , walked in and patient was using 5 L O2 HEENT: Negative for nasal congestion and post-nasal drip CARDIOVASCULAR: Negative for palpitations GI: negative for nausea/ emesis : negative for dysuria, urgency , frequency MUSCULOSKELETAL: negative for pains/aches SKIN: Negative for rash PSYCH: Negative for active stressors, depression and anxiety ENDOCRINE: Negative for polyuria and polydipsia NEURO: Negative for cognitive changes and morning headaches All other review of systems reviewed and are negative unless other darby stated in the HPI or the ROS Current hospital medications: pantoprazole 40 mg injection (PROTONIX) 40 mg INTRAVENOUS DAILY (6 AM) ipratropium-albuterol 3 mL nebulizer solution (DUONEB) 3 mL INHALATION q 4 H PRN NaCl 0.9% iv infusion 50-200 mL INTRAVENOUS PRN DIALYSIS heparin 1,000 unit/mL 3,200 Units injection 3,200 Units INTRALUMINAL PRN DIALYSIS lisinopril 10 mg tab(s) (ZESTRIL, PRINIVIL) 10 mg ORAL DAILY citalopram 20 mg tab(s) (CeleXA) 20 mg ORAL DAILY levothyroxine 150 mcg (SYNTHROID) 150 mcg ORAL DAILY (6 AM) ondansetron 4 mg tab(s) (ZOFRAN) 4 mg ORAL q 6 H PRN ondansetron (PF) 4 mg injection (ZOFRAN) 4 mg INTRAVENOUS q 6 H PRN acetaminophen 650 mg tab(s) (TYLENOL) 650 mg ORAL q 6 H PRN heparin 5,000 Units injection 5,000 Units SUBCUTANEOUS q 12 H sitaGLIPtin 50 mg tab(s) (JANUVIA) 50 mg ORAL DAILY WITH BREAKFAST atorvastatin 10 mg tab(s) (LIPITOR) 10 mg ORAL AT BEDTIME Objective PHYSICAL EXAM: BP 156/82 Pulse 81 Temp (Src) 97.9 (Oral) Resp 18 Ht 5' 10 (1.78m) Wt 185 lb (83.9kg) SpO2 99% BMI 26.54 kg/(m2). Constitutional - Vitals as above, not in acute distress Resp - Clear to auscultate both sides, no wheezes, crackles or rales, no labored breathing CVS- RRR. No murmur, gallop or rub, pulse 2+ GI - NTND, bowel sounds normally heard, no mass palpable GEOPHYSICAL PROSPECTING SURVEYOR- cranial nerves 2 to 12 grossly intact, no focal motor or sensory deficits noted, speech normal/ Psych- A ANDO x 3, mood normal Skin- Normal tugor, no ulcers or rashes DATA: Diagnostic tests reviewed for today's visit: Most recent labs and imaging results. Hemoglobin (g/dL) Date Value 11/03/2012 13.4 HGB (g/dL) Date Value 08/03/2018 7.4 Hematocrit (%) Date Value 08/03/2018 24.0 WBC (thou/cmm) Date Value 08/03/2018 19.26 Glucose (mg/dL) Date Value 08/03/2018 116 Potassium (mEq/L) Date Value 08/03/2018 4.7 Sodium (mEq/L) Date Value 08/03/2018 135 Chloride (mEq/L) Date Value 08/03/2018 101 CO2 (mEq/L) Date Value 08/03/2018 25 Creatinine (mg/dL) Date Value 08/03/2018 4.72 BUN (mg/dL) Date Value 08/03/2018 22 Anion Gap (no units) Date Value 08/03/2018 14 Calcium (mg/dL) Date Value 08/03/2018 8.5 Protein, Total (g/dL) Date Value 11/03/2012 7.8 Albumin (g/dL) Date Value 11/03/2012 4.1 Bilirubin, Total (mg/dL) Date Value 11/03/2012 0.2 Alkaline Phosphatase (U/L) Date Value 11/03/2012 55 AST (U/L) Date Value 11/03/2012 32 ALT (U/L) Date Value 11/03/2012 62 Assessment/Plan Principal Problem: Hypoxia: I have ordered an extensive workup including EKG and chest x-ray ventilation/perfusion scan ABGs. It seems that the patient on chest x-ray has pulmonary edema. I asked the patient if he has any cardiac condition he stated that there was an echo done approximately 3 days ago when he was in was temperature that showed possible heart failure. At a conversation with the senior talent acquisition specialist regarding diuresing the patient. He ordered Lasix 80 mg IV, and the patient will go to dialysis today and they will try to remove 3-4 L of fluids. Graciously, senior talent acquisition specialist also has access to records, he will present to the echocardiogram and place it on the chart tomorrow. This could be either CHF exacerbation or fluid overload.I placed him on continuous pulse ox and monitor monitoring for now also. Ramandeep RAMIREZ: Yes Assessment AND Plan: gastroenterology on board, every 8 hourshemoglobin and hematocrit shows decreasehe status post 3 units of PRBCs. We'll continue to monitor for bleeding. I I've sent for type and screen again and we'll consent the patient tonight. * per GI he will go for EGD on Saturday (tomorrow ESRD (end stage renal disease) (HCC) POA: Yes Assessment AND Plan: dialysis today per nephrology DM (diabetes mellitus), type 1 with neurological complications (HCC) POA: Yes Assessment AND Plan: continue home Januvia every 4 checks of blood glucose. for now appears to be close to normal glycemic Essential hypertension POA: Yes Assessment AND Plan: mildly hypertensive today, however he will undergo dialysis we'll reevaluate tomorrow Hypothyroidism POA: Unknown Assessment AND Plan: continue home medications Resolved Problems: * No resolved hospital problems. * Medication and Non-Pharmacologic VTE Prophylaxis/Anticoagulants Anticoagulant AND Antiplatelet Medications Start Dose Route Frequency Ordered Stop 08/03/18 1335 heparin 1,000 unit/mL 3,200 Units injection 3,200 Units INTRALUMINAL PRN DIALYSIS 08/03/18 1336 -- 08/02/181999 heparin 5,000 Units injection (Medical At Risk ) 5,000 Units SUBCUTANEOUS EVERY 12 HOURS 08/02/18 1949 -- 08/03/18 0030 pneumatic compression stockings ([place]) 08/02/181999 vte non-pharmacologic prophylaxis - none indicated ([place]) 08/02/181999 activity - mobilize patient ([place]) VTE Prophylaxis: reviewed the heparin protocol, have DC'd the heparin 5000 twice a day due to active bleeding. Dispo: pending GI recommendations SIGNATURE: Carlos Mei MD PATIENT NAME: Robert Mccrary DATE: August 03, 2018 TIME: 4:43 PM PAGER: emma Coffman , After 7pm, please call cross cover pager #[phone] TROPONIN I Collected: 08/03/2018 Status: F Source: [facility] 3:30 PM HEALTH SYSTEM REPOSITORY TYPE CODE TESTS RESULT OUT OF REFERENCE UNITS RANGE LAB TROP(LOINC) 0.015-0.045 ng/ml Troponin I 0.028 Performed By: #### TROP #### [place] [address] NURSING PROG Observed: 08/03/2018 Status: COMPLETED Source: [facility] 3:10 PM CLINIC OTHER [place] REPOSITORY [facility] ID: [id number] Author: Caitlin FaustinRn) SILVANA Cornejo Service: (none) Author Type: Registered Nurse Type: Nursing Progress Note Filed: 08/03/2018 3:11 PM Note Text: Dr Mei notified of hgb 7.4 HGB Collected: 08/03/2018 Status: F Source: [facility] 2:15 PM HEALTH SYSTEM REPOSITORY TYPE CODE TESTS RESULT OUT OF RANGE REFERENCE UNITS LAB HGBI(LOINC) 13.7-17.5 g/dL Low Hgb 7.4 Performed By: #### HGBI #### [place] [address] HCT Collected: 08/03/2018 Status: F Source: [facility] 2:15 PM HEALTH SYSTEM REPOSITORY TYPE CODE TESTS RESULT OUT OF RANGE REFERENCE UNITS LAB HCTI(LOINC) 40.1-51.0 % Low Hct 24.0 Performed By: #### HCTI #### [place] [address] NURSING PROG Observed: 08/03/2018 Status: COMPLETED Source: [facility] 1:10 PM [facility] REPOSITORY [facility] ID: [id number] Author: Caitlin FaustinRn) SILVANA Cornejo Service: (none) Author Type: Registered Nurse Type: Nursing Progress Note Filed: 08/03/2018 1:12 PM Note Text: Dialysis at bedside to dialize patient. Order from dr Ford to d/c lasix 80 mg iv x1 TROPONIN I Collected: 08/03/2018 Status: F Source: [facility] 12:30 PM HEALTH SYSTEM REPOSITORY TYPE CODE TESTS RESULT OUT OF REFERENCE UNITS RANGE LAB TROP(LOINC) 0.015-0.045 ng/ml Troponin I 0.020 Performed By: #### TROP #### [place] [address] CONSULT Observed: 08/03/2018 Status: COMPLETED Source: [facility] 12:20 PM [facility] OTHER [place] REPOSITORY [facility] ID: [id number] Author: Sky Acosta Service: Nephrology Author Type: Physician Type: Consults Filed: 08/03/2018 12:23 PM Note Text: Robert Mccrary is a 58 yo male presented to hospital with severe anemia. Renal service consulted for ESRD. ESRD on HD TTS schedule. Last HD yesterday Presented to [facility] ER with Hb of 5.9. Received PRBC overnight. Currently complains of dyspnea Recent colonoscopy done at [facility] - apparently was negative Seen by GI. Likely EGD tomorrow on saturday . PAST MEDICAL HISTORY Diagnosis Date - Depression - DM (diabetes mellitus) (HCC) - ESRD (end stage renal disease) (HCC) - HTN (hypertension) - Hyperlipidemia - Hypothyroid PAST SURGICAL HISTORY Procedure Laterality Date - HERNIA REPAIR HX 1983 inguinal - REPAIR UMBILICAL JAMES,5+Y/O,REDUC 11/19/12 with mesh Social History Marital status: Spouse name: Years of education: Number of children: Social History Main Topics Smoking status: Never Smoker Smokeless tobacco: Current User Types: Snuff Current Facility-Administered Medications: pantoprazole 40 mg injection (PROTONIX) 40 mg INTRAVENOUS DAILY (6 AM) Ilene Tety[place] 40 mg at 08/03/18 0557 ipratropium-albuterol 3 mL nebulizer solution (DUONEB) 3 mL INHALATION q 4 H PRN Carlos Mei 3 mL at 08/03/18 09 furosemide 80 mg injection (LASIX) 80 mg INTRAVENOUS ONCE Sky Acosta lisinopril 10 mg tab(s) (ZESTRIL, PRINIVIL) 10 mg ORAL DAILY Ilene [place] 10 mg at 08/03/18 0807 citalopram 20 mg tab(s) (CeleXA) 20 mg ORAL DAILY Ilene [place] 20 mg at 08/03/18 0807 levothyroxine 150 mcg (SYNTHROID) 150 mcg ORAL DAILY (6 AM) Ilene [place] 150 mcg at 08/03/18 0557 ondansetron 4 mg tab(s) (ZOFRAN) 4 mg ORAL q 6 H PRN Ilene [place] Or ondansetron (PF) 4 mg injection (ZOFRAN) 4 mg INTRAVENOUS q 6 H PRN Ilene Tety[place] acetaminophen 650 mg tab(s) (TYLENOL) 650 mg ORAL q 6 H PRN Ilene T[place] heparin 5,000 Units injection 5,000 Units SUBCUTANEOUS q 12 H Ilene T[place] 5,000 Units at 08/03/18 0807 sitaGLIPtin 50 mg tab(s) (JANUVIA) 50 mg ORAL DAILY WITH BREAKFAST Ilene [place] 50 mg at 08/03/18805 atorvastatin 10 mg tab(s) (LIPITOR) 10 mg ORAL AT BEDTIME Ilene [place] 10 mg at 08/02/182052 Prescriptions Prior to Admission: acetaminophen-HYDROcodone 5-500 mg tablet Take 1-2 tablets by mouth every 4 hours as needed. Disp: 40 tablet Rfl: 1 SIMVASTATIN 20 mg tablet once daily. Disp: Rfl: LISINOPRIL 10 mg tablet once daily. Disp: Rfl: SYNTHROID 150 mcg tablet once daily. Disp: Rfl: CITALOPRAM 20 mg tablet once daily. Disp: Rfl: KOMBIGLYZE XR 2.5-1,000 mg TM24 twice daily. Disp: Rfl: ALLERGIES No Known Allergies 08/03/18 0808/03/18 0908/03/18 0938 08/03/18 1037 BP: 162/70 Pulse: 82 82 84 Resp: Temp: TempSrc: SpO2: 95% 96% 94% Weight: Height: General. No obvious distress HEENT. No pallor, icterus, JVD Heart S1, S2 Lungs clear Abdomen soft No edema No cyanosis No rash AAO x 3 Recent Labs 08/03/18 0608/02/182049 WBC 19.26* 15.73* HB 8.4* 8.5* HCT 27.2* 26.7* PLT 384* 356 NA 135* 138 K 4.7 3.7 CHLOR 101 99 CO2 25 30 CREAT 4.72* 4.09* BUN 22* 14 GLUC 116* 134* CA 8.5 8.5 Assessment/Plan ESRD. Last HD yesterday. Continue as per schedule Anemia. Due to GI bleed. S/p PRBC Dyspnea. CXR is pretty wet. Will do a UF treatment today for 3-4 L fluid removal. Will give lasix 80 mg IV x once. He says he still makes good amount of urine. Called dialysis staff. They will be here this afternoon for treatment PROGRESS Observed: 08/03/2018 Status: COMPLETED Source: [facility] 11:38 AM CLINIC OTHER CAMPUS REPOSITORY [facility] ID: [id number] Author: Hillary (Rt) Nikkie Polanco Service: (none) Author Type: Geriatric Social Work Professor Type: Progress Notes Filed: 08/03/2018 11:39 AM Note Text: RADIOLOGY SERVICE PROGRESS NOTE SERVICE DATE: 08/03/2018 SERVICE TIME: 11:38 AM PATIENT IDENTITY VERIFICATION COMPLETED USING TWO (2) METHODS: Patient confirmed name and Date of verbally. PATIENT GENDER DATA: .male ALLERGIES: Reviewed and unchanged MEDICATIONS REVIEWED: Yes PATIENT RELEVANT IMPLANT DATA REVIEWED: Not Applicable CREATININE: Creatinine Date Value Ref Range Status 08/03/2018 4.72 (H) 0.67 - 1.17 mg/dL Final 08/02/2018 4.09 (H) 0.67 - 1.17 mg/dL Final 11/03/2012 0.84 0.70 - 1.40 mg/dL Final eGFR-All Other Races Date Value Ref Range Status 11/03/2012 >60 . Final Comment: eGFR (Estimated GFR) Units of measure: mL/min/1.73 meters squared eGFR is derived from the reexpressed MDRD Study equation using the following parameters: serum creatinine, age, gender and race. The creatinine assay has been calibrated to be traceable to IDMS. An eGFR <60 mL/min/1.73m2 for >3 months is consistent with chronic kidney disease. Refer to KDOQI guidelines for clinical interpretation. eGFR- Date Value Ref Range Status 11/03/2012 >60 Final P.O.C.T. RESULTS: N/A August 03, [address] PERFORMED: No IV SITE: Inpatient - refer to LDA documentation POST EXAM PIV STATUS: Inpatient see LDA documentation PROCEDURE TYPE: VQ Scan: 0.8 mCi of Tc99m DTPA was inhaled. 5.7 mCi of Tc99m MAA was administered IV. ADMINISTRATION TIME: 11;30 PATIENT DISCHARGED TO: Patient taken to IP transport area for return to RNF/ICU/ED. A Diagnostic radioactive procedure has taken place, with no further precautions necessary other than routine body substance precautions. More information regarding radiation safety can be found using this link: [email or web address] SIGNATURE: Hillary Sherri, RT PATIENT NAME: Robert Mccrary DATE: August 03, 2018 TIME: 11:38 AM PAGER/CONTACT #: LUNG VENTILATION Observed: 08/03/2018 Status: F Source: [facility] 11:25 AM HEALTH SYSTEM REPOSITORY Performed at [facility] APPROVED BY: LIBRA AGUIRRE MD LUNG SCAN CLINICAL HISTORY: Assess for pulmonary embolism. TECHNIQUE: 35.5 mCi Tc 99m DTPA aerosol inhaled 5.7 mCi Tc 99m MAA IV Comparison chest x-ray: .... RESULTS: Multiple matched ventilation/perfusion abnormalities are identified in both lungs. No mismatched perfusion defects are seen. IMPRESSION: THE STUDY IS MOST CONSISTENT WITH A LOW PROBABILITY OF PULMONARY EMBOLISM. NURSING PROG Observed: 08/03/2018 Status: COMPLETED Source: [facility] 10:55 AM [facility] REPOSITORY [facility] ID: [id number] Author: Caitlin FaustinRn) SILVANA Cornejo Service: (none) Author Type: Registered Nurse Type: Nursing Progress Note Filed: 08/03/2018 11:04 AM Note Text: Pt sent for VQ scan via cart US DVT LOWER BILATERAL Observed: 08/03/2018 Status: F Source: [facility] 10:20 AM HEALTH SYSTEM REPOSITORY Performed at [facility] APPROVED BY: Tani Stephenson MD Exam: Ultrasound of the right and left lower extremity with Power and Color Doppler. Date: 08/03/2018 09:50. Indication: Acute respiratory failure. Comparison: None. Technique: Real time ultrasound with grade compression and distal augmentation, as well as Doppler and color Doppler imaging of the right and left common femoral, femoral and popliteal veins were performed. Findings: No intraluminal echogenic material is noted. The venous structures demonstrate normal compressibility throughout their course. There is spontaneous flow and normal augmentation with distal compression at all levels. IMPRESSION: No evidence of deep venous thrombosis within either the right or left common femoral vein, femoral vein or popliteal vein. NURSING PROG Observed: 08/03/2018 Status: COMPLETED Source: [facility] 9:51 AM [facility] REPOSITORY [facility] ID: [id number] Author: Caitlin FaustinRn) SILVANA Cornejo Service: (none) Author Type: Registered Nurse Type: Nursing Progress Note Filed: 08/03/2018 9:52 AM Note Text: Dr Mei notified of ABG results NURSING PROG Observed: 08/03/2018 Status: COMPLETED Source: [facility] 9:37 AM CLINIC OTHER CAMPUS REPOSITORY [facility] ID: [id number] Author: Caitlin (Rn) SILVANA Cornejo Service: (none) Author Type: Registered Nurse Type: Nursing Progress Note Filed: 08/03/2018 9:37 AM Note Text: Troponin obtained and sent to lab. Pt sent to u/s of bilat lower ext ECHOCARDIOGRAM COMPLETE Observed: 08/03/2018 Status: F Source: [place] 9:31 AM [facility] Cardiovascular Services [address] [place] [address] Echo Complete 08/02/18 1036 MR#: [id number] Acct: [id number] Name: ROBERT MCCRARY Rep #: [id number] : 1960 58 From: Santo Clark MD Attending Dr: Liam Crisostomo DO Status: DIS IN Ordering Dr: Lance Hernandez Date: 08/02/18 Location: PCU Sex: M C Admitted: 08/01/18 Reason For Study: CHF Procedure This was a 2D Doppler, Color Flow transthoracic echocardiogram. Exam performed portable in patient room. Left Ventricle Normal size and thickness. The estimated ejection fraction is 65 %. Normal diastology for age. No regional wall motion abnormalities noted. Right Ventricle Normal size and thickness. Normal systolic function. Atria Normal left atrium. Normal right atrium. Normal atrial septum. Mitral Valve The mitral valve is structurally normal. No prolapse or stenosis seen. Trivial mitral valve insufficiency. Tricuspid Valve Normal tricuspid valve. Unable to estimate RV systolic pressure due to inadequate jet, pulmonary artery pressure probably normal. Aortic Valve Normal aortic valve. Trisinus/trileaflet aortic valve. Pulmonic Valve Normal pulmonic valve. Great Vessels Normal aortic root. Normal arch. Normal inferior vena cava. Inferior vena cava collapse with sniff. Pericardium/Pleural No pericardial effusion. MMode/2D Measurements AND Calculations LVIDd: 5.5 cm IVSd: 1.2 cm Ao root diam: 3.6 cm LVIDs: 3.4 cm LVPWd: 1.2 cm LA dimension: 4.0 cm FS: 39.0 % Time Measurements MV dec time: 0.18 sec Doppler Measurements AND Calculations MV E max lorena: 123.1 cm/sec Lat Peak E' Lorena: 5.0 cm/sec Med Peak E' Lorena: 11.2 cm/sec MV A max lorena: 83.9 cm/sec E/E' lat: 24.8 E/E' med: 11.0 MV E/A: 1.5 MV V2 max: 175.3 cm/sec MV P1/2t max lorena: 175.3 cm/sec Ao V2 max: 194.1 cm/sec MV max P.3 mmHg MV P1/2t: 84.4 msec Ao max P.1 mmHg MV V2 mean: 91.5 cm/sec MV dec slope: 608.2 cm/sec2 Ao V2 mean: 128.2 cm/sec MV mean P.2 mmHg MVA(P1/2t): 2.6 cm2 Ao mean P.4 mmHg MV V2 VTI: 42.2 cm Ao V2 VTI: 37.4 cm LV V1 max: 142.2 cm/sec PA V2 max: 119.4 cm/sec LV V1 max P.1 mmHg LV V1 mean P.1 mmHg LV V1 mean: 92.4 cm/sec LV V1 VTI: 33.7 cm Interpretation Summary The estimated ejection fraction is 65 %. Normal diastology for age. Trivial mitral valve insufficiency. Unable to estimate RV systolic pressure due to inadequate jet, pulmonary artery pressure probably normal. There is no comparison study available. Ordering Physician: Lance Hernandez Referring Physician: Pedro Walker Performed By: Jose Villa RCS 08/03/18930 Date Santo Clark MD CC: PADMINI Hernandez; Liam Crisostomo DO; Abran Reveles MD Date Dictated: 08/02/181035 Date Transcribed: 08/03/18930 Manager [place]: Signed BLOOD GAS ARTERIAL Collected: 08/03/2018 Status: F Source: [facility] 9:30 AM HEALTH SYSTEM REPOSITORY TYPE CODE TESTS RESULT OUT OF REFERENCE UNITS RANGE LAB FIO2(LOINC % ) FIO2 40 LAB TEMPA(LOIN C) Temperature 37 LAB PH(LOINC) 7.350-7.450 pH Arterial High 7.476 LAB PCO2(LOINC 36.0-46.0 mm Hg ) PCO2 Arterial 38.2 LAB PO2(LOINC) 85.0-96.0 mm Hg Low PO2 Arterial 66.6 LAB HCO3A(LOIN 22.0-26.0 mEq/L C) HCO3- High 27.6 LAB O2%A(LOINC 95.0-98.0 % ) Low O2% Sat Arterial 94.8 LAB BASEX(LOIN -2.5 to 2.5 mEq/L C) Base Excess 3.7 Performed By: #### ABG #### [place] [address] TROPONIN I Collected: 08/03/2018 Status: F Source: [facility] 9:30 AM HEALTH SYSTEM REPOSITORY TYPE CODE TESTS RESULT OUT OF REFERENCE UNITS RANGE LAB TROP(LOINC) 0.015-0.045 ng/ml Troponin I 0.018 Performed By: #### TROP #### [place] [address] CHEST 1 VIEW Observed: 08/03/2018 Status: F Source: [facility] 9:28 AM HEALTH SYSTEM REPOSITORY Performed at [facility] APPROVED BY: Pam Garcia MD EXAM TITLE: CHEST 1 VIEW DATE: 08/03/2018 09:22 INDICATION: Acute respiratory distress COMPARISON: None. FINDINGS: There is diffuse interstitial and airspace disease in a pattern that is suggestive of pulmonary edema. Heart size is within normal range. There is a right-sided dialysis type catheter with i ts tip near the cavoatrial junction. Bony structures are intact. IMPRESSION: Pulmonary edema NURSING PROG Observed: 08/03/2018 Status: COMPLETED Source: [facility] 9:17 AM CLINIC OTHER [place] REPOSITORY HNO ID: [id number] Author: Caitlin Cid) SILVANA Cornejo Service: (none) Author Type: Registered Nurse Type: Nursing Progress Note Filed: 08/03/2018 9:18 AM Note Text: Dr Mei aware of pt needing o2 at 5 l nc. Stat ekg and cxr done. Pt placed on tele showing nsr EKG (AK,AV,EU,FV,HL,MIL,MM,SP) Observed: Status: F Source: [facility] 08/03/2018 9:16 AM [facility] OTHER [place] REPOSITORY NAME : ROBERT MCCRARY PID : [id number] : 1960 Gender : Male Race : ORD : [id number] Procedure Date : Aug 03 2018 09:16 Edit Date : Aug 04 2018 10:15 Diagnosis:NORMAL SINUS RHYTHM NORMAL ECG Confirmed by MD Whalen Vinay ([id number]) on 08/04/2018 10:15:03 AM Ventricular Rate : 81 BPM Atrial Rate : 81 BPM P-R Interval : 132 ms QRS Duration : 80 ms Q-T Interval : 412 ms QTC Calculation(Bezet) : 478 ms P [place] : 53 degrees R [place] : 12 degrees T [place] : 31 degrees Test Reason : Cough Location : 183 : TCU POOL Overread By : MD Whalen Vinay Editted By : MD Whalen Vinay Referred By : CARLOS MEI Acquired by : Macy Hays CONSULT Observed: 08/03/2018 Status: COMPLETED Source: [place] 8:07 AM CLINIC OTHER [place] REPOSITORY HNO ID: [id number] Author: Bethel Lagunas (Fel) Service: (none) Author Type: Physician Type: Consults Filed: 08/03/2018 6:26 PM Note Text: Gastroenterology Consult Service Department of Gastroenterology AND Hepatology [facility]/ [facility] INITIAL CONSULT NOTE Please call [facility] cell phone [phone] directly if you have questions till 5 PM today. After [address]Jon Rich. Case will be discussed with Addendum at 2:[address] Rich Will go for EGD on Saturday. Epic orders placed. NPO after MN tonight SERVICE DATE: 08/03/2018 SERVICE TIME: 8:07 AM Opinion/advice regarding: Anemia IMPRESSION AND PLAN his is a 58 year old male with history of ESRD-HD, DM2, HTN presented to [facility] yesterday morning with sob, found to have a Hgb of 5.9, positive occult blood.Apparently recent cscope was normal. 1) Anemia: corrected after 3 units of PRBC. Apparently recent C-scope 2-3 months back was normal. FOBT was positive. Denies any clinically evident GI bleed. Plan: Asked him to remind his to bring the reports of Cscope. If this is indeed normal then will need a non emergent EGD Saturday or Saturday. Hb pauline appropriately after transfusion. Will keep you posted about the exact timing of scope and will order in epic # Resusucitation measures: Maintain 2 large bore IV lines 18G size at least at all times Transfuse to keep Hb >/+ 7 g/dl. If any history of CAD Keep Hb >/= 9 g/dl protonix 40 mg IV BID Admit to ICU if BP <90/60, HR >100 /orthostatic hypotension Take vitals every 4 hours on RNF, Cycle CBc daily Avoid all NSAIDS. If NSAIDS are indicated for any reasons pleas euse GUERRA-2 inhibitors at low dose and overlap w their use with po PPIs. CC: Anemia HPI: This is a 58 year old male with history of ESRD-HD, DM2, HTN presented to [facility] yesterday morning with sob, found to have a Hgb of 5.9 ( per primary team H and P review), positive occult blood. He had 3U PRBCs transfused, sent to [facility] for GI evaluation. Patient had a colonoscopy done one month ago by Dr. Walker, no acute findings. has reports and will bring them in today He denies any obvious GI bleed in form of melena , hemetemsis, BRBPR. No pain abdomen ? Results for ROBERT MCCRARY ( ) as of 08/03/2018 08:08 Ref. Range 11/03/2012 15:56 08/02/2018 20:50 08/03/2018 06:05 WBC Latest Ref Range: 4.23 - 9.07 thou/cmm 10.59 15.73 (H) 19.26 (H) RBC Latest Ref Range: 4.63 - 6.08 mil/cmm 4.84 3.10 (L) 3.09 (L) HGB Latest Ref Range: 13.7 - 17.5 g/dL 8.5 (L) 8.4 (L) Pertinent Review of Systems: GENERAL: No weight loss, malaise or fevers. SEE HPI NECK: Negative for lumps, goiter, pain and significant neck swelling RESPIRATORY: shortness of breath. CARDIOVASCULAR: Negative for chest pain, leg swelling or palpitations. GI: See HPI MUSCULOSKELETAL: Negative for joint pain or swelling, back pain or muscle pain. HEMATOLOGY/LYMPHOLOGY Negative for prolonged bleeding, bruising easily or swollen nodes. ENDOCRINE: Negative for cold or heat intolerance, polyuria, polydipsia and goiter. NEURO: No history of headaches, syncope, paralysis, seizures or tremors All other reviewed and negative other than HPI. PAST MEDICAL HISTORY: PAST MEDICAL HISTORY Diagnosis Date - Depression - DM (diabetes mellitus) (HCC) - ESRD (end stage renal disease) (HCC) - HTN (hypertension) - Hyperlipidemia - Hypothyroid PAST SURGICAL HISTORY: PAST SURGICAL HISTORY Procedure Laterality Date - HERNIA REPAIR HX 1983 inguinal - REPAIR UMBILICAL JAMES,5+Y/O,REDUC 11/19/12 with mesh FAMILY HISTORY: FAMILY HISTORY Problem Relation Age of Onset - Alcohol/Drug Sister - Stroke Father - Heart Father SOCIAL HISTORY: Social History Substance Use Topics - Smoking status: Never Smoker - Smokeless tobacco: Current User Types: Snuff - Alcohol use Not on file Comment: 1/month MEDICATIONS: Prior to Admission Medications: acetaminophen-HYDROcodone 5-500 mg tablet Take 1-2 tablets by mouth every 4 hours as needed. SIMVASTATIN 20 mg tablet once daily. LISINOPRIL 10 mg tablet once daily. SYNTHROID 150 mcg tablet once daily. CITALOPRAM 20 mg tablet once daily. KOMBIGLYZE XR 2.5-1,000 mg TM24 twice daily. Current hospital medications: pantoprazole 40 mg injection (PROTONIX) 40 mg INTRAVENOUS DAILY (6 AM) lisinopril 10 mg tab(s) (ZESTRIL, PRINIVIL) 10 mg ORAL DAILY citalopram 20 mg tab(s) (CeleXA) 20 mg ORAL DAILY levothyroxine 150 mcg (SYNTHROID) 150 mcg ORAL DAILY (6 AM) ondansetron 4 mg tab(s) (ZOFRAN) 4 mg ORAL q 6 H PRN ondansetron (PF) 4 mg injection (ZOFRAN) 4 mg INTRAVENOUS q 6 H PRN acetaminophen 650 mg tab(s) (TYLENOL) 650 mg ORAL q 6 H PRN heparin 5,000 Units injection 5,000 Units SUBCUTANEOUS q 12 H sitaGLIPtin 50 mg tab(s) (JANUVIA) 50 mg ORAL DAILY WITH BREAKFAST metFORMIN 1,000 mg tab(s) (GLUCOPHAGE) 1,000 mg ORAL DAILY WITH BREAKFAST atorvastatin 10 mg tab(s) (LIPITOR) 10 mg ORAL AT BEDTIME ALLERGIES: ALLERGIES No Known Allergies OBJECTIVE: PHYSICAL EXAM: BP 163/69 Pulse 91 Temp (Src) 97.9 (Oral) Resp 20 Ht 5' 10 (1.78m) Wt 185 lb (83.9kg) SpO2 95% BMI 26.54 kg/(m2). General appearance: AOx3 Skin: Skin color, texture, turgor normal, no rash. Eyes: Anicteric sclera. No palor. Oropharynx: Lips, mucosa, and tongue normal. Lungs: lungs clear to auscultation, no wheezing or rhonchi Heart: RRR Abdomen soft, non-tender. Bowel sounds normal. No masses or organomegaly. Mild umbilical pouting from hernia repair Extremities: Extremities normal. No deformities, No edema. DATA: CBC, Coags, BMP, Mg, Phos Recent Labs 08/03/18 0608/02/180 WBC 19.26* 15.73* HB 8.4* 8.5* HCT 27.2* 26.7* PLT 384* 356 NA 135* 138 K 4.7 3.7 CHLOR 101 99 CO2 25 30 BUN 22* 14 CREAT 4.72* 4.09* GLUC 116* 134* CA 8.5 8.5 Liver Function, Amylase, AND Lipase This note is not final till staffed by GI attending Bethel Lagunas Fellow in Gastroenterology and Hepatology [facility] pager: [phone] [facility] Cell phone: [phone] SIGNATURE: Bethel Lagunas MD PATIENT NAME: Robert Mccrary DATE: August 03, 2018 TIME: 8:07 AM PAGER/CONTACT #: [phone]/ [facility] cell phone:[phone] HEMOGRAM Collected: 08/03/2018 Status: F Source: [facility] 6:05 HEALTH SYSTEM REPOSITORY TYPE CODE TESTS RESULT OUT OF REFERENCE UNITS RANGE LAB WBC(LOINC) 4.23-9.07 thou/cmm High WBC 19.26 LAB RBC(LOINC) 4.63-6.08 mil/cmm Low RBC 3.09 LAB HGB(LOINC) 13.7-17.5 g/dL Low Hgb 8.4 LAB HCT(LOINC) 40.1-51.0 % Low Hct 27.2 LAB MCV(LOINC) 83.2-95.6 fl MCV 88.0 LAB MCH(LOINC) 25.7-32.2 pg MCH 27.2 LAB MCHC(LOINC) 32.3-36.5 % Low MCHC 30.9 LAB RDW(LOINC) 11.6-14.4 % High RDW 15.4 LAB RDWSD(LOINC 36.1-45.8 fl ) High RDW SD 48.5 LAB PLT(LOINC) 141-365 thou/cmm High Platelet 384 LAB MPV(LOINC) 8.7-12.0 fl MPV 9.0 Performed By: #### CBC1 #### [facility] [address] [place] [address] BASIC PANEL Collected: 08/03/2018 Status: F Source: [facility] 6:05 HEALTH SYSTEM REPOSITORY TYPE CODE TESTS RESULT OUT OF REFERENCE UNITS RANGE LAB NA(LOINC) 136-145 mEq/L Low Sodium Blood 135 LAB K(LOINC) 3.5-5.1 mEq/L Potassium Blood 4.7 Result Comment: SPECIMEN SLIGHTLY HEMOLYZED LAB CL(LOINC) 98-107 mEq/L Chloride Blood 101 LAB CO2(LOINC) 21-32 mEq/L CO2 Blood 25 LAB GLU(LOINC) 70-99 mg/dL Glucose High Blood 116 LAB BUN(LOINC) 7-18 mg/dL BUN Blood High 22 LAB CREA(LOINC) 0.67-1.17 mg/dL Creatinine High Blood 4.72 LAB CA(LOINC) 8.5-10.1 mg/dL Calcium Blood 8.5 LAB ANGAP(LOINC) 8-16 Anion Gap 14 Performed By: #### P8 #### [facility] [address] [place] [id number] HEMOGRAM/DIFF Collected: 08/02/2018 Status: F Source: [facility] 8:50 PM HEALTH SYSTEM REPOSITORY TYPE CODE TESTS RESULT OUT OF REFERENCE UNITS RANGE LAB WBC(LOINC) 4.23-9.07 thou/cmm WBC High 15.73 LAB RBC(LOINC) 4.63-6.08 mil/cmm Low RBC 3.10 LAB HGB(LOINC) 13.7-17.5 g/dL Low Hgb 8.5 LAB HCT(LOINC) 40.1-51.0 % Low Hct 26.7 LAB MCV(LOINC) 83.2-95.6 fl MCV 86.1 LAB MCH(LOINC) 25.7-32.2 pg MCH 27.4 LAB MCHC(LOINC 32.3-36.5 % ) Low MCHC 31.8 LAB RDW(LOINC) 11.6-14.4 % RDW High 15.2 LAB RDWSD(LOIN 36.1-45.8 fl C) RDW SD High 47.8 LAB PLT(LOINC) 141-365 thou/cmm Platelet 356 LAB MPV(LOINC) 8.7-12.0 fl MPV 9.0 LAB SEG(LOINC) % Seg Neutrophil 85.7 LAB IGRE(LOINC % ) Immature Grans 0.50 LAB LYMPH(LOIN % C) Lymphocyte 6.8 LAB MNO(LOINC) % Monocyte 5.6 LAB EOSIN(LOIN % C) Eosinophil 1.1 LAB BASO(LOINC % ) Basophil 0.3 LAB SEGN(LOINC 1.78-5.38 thou/cmm ) Abs. High Neut (ANC) 13.48 LAB IGAB(LOINC 0.00-0.05 thou/cmm ) Abs High Immature Grans 0.08 LAB LYMN(LOINC 0.84-2.85 thou/cmm ) Abs. Lymph 1.07 LAB MONON(LOIN 0.30-0.82 thou/cmm C) Abs. High Elmore 0.88 LAB EOSN(LOINC 0.04-0.54 thou/cmm ) Abs. Eosin 0.17 LAB BASON(LOIN 0.01-0.08 thou/cmm C) Abs. Baso 0.05 Result Comment: Smear scanned; tech agrees with automated differential Performed By: #### CBCD1 #### [place] [address] BASIC PANEL Collected: 08/02/2018 Status: F Source: [facility] 8:50 PM HEALTH SYSTEM REPOSITORY TYPE CODE TESTS RESULT OUT OF REFERENCE UNITS RANGE LAB NA(LOINC) 136-145 mEq/L Sodium Blood 138 LAB K(LOINC) 3.5-5.1 mEq/L Potassium Blood 3.7 LAB CL(LOINC) 98-107 mEq/L Chloride Blood 99 LAB CO2(LOINC) 21-32 mEq/L CO2 Blood 30 LAB GLU(LOINC) 70-99 mg/dL Glucose High Blood 134 LAB BUN(LOINC) 7-18 mg/dL BUN Blood 14 LAB CREA(LOINC 0.67-1.17 mg/dL ) High Creatinine Blood 4.09 LAB CA(LOINC) 8.5-10.1 mg/dL Calcium Blood 8.5 LAB ANGAP(LOIN 8-16 C) Anion Gap 13 Performed By: #### P8 #### [place] [address] HISTORY PHYSICAL Observed: 08/02/2018 Status: COMPLETED Source: [facility] 7:49 PM CLINIC OTHER CAMPUS REPOSITORY HNO ID: [id number] Author: Ilene Burns Service: Hospital Medicine Author Type: Physician Type: HANDP Filed: 08/02/2018 8:22 PM Note Text: DEPARTMENT OF HOSPITAL MEDICINE HISTORY AND PHYSICAL EXAM SERVICE DATE: 08/02/2018 SERVICE TIME: 7:49 PM Primary Care Physician: Abran Reveles MD NIGHT AND WEEKEND COVERAGE: After 7pm, please call cross cover pager #[phone] Subjective CHIEF COMPLAINT: Anemia HPI: This is a 58 year old male with history of ESRD-HD, DM2, HTN presented to [facility] yesterday morning with sob, found to have a Hgb of 5.9, positive occult blood. He had 3U PRBCs transfused, sent to [facility] for GI evaluation. Patient had a colonoscopy done one month ago by Dr. Walker, no acute findings. PAST MEDICAL HISTORY Diagnosis Date - Depression - DM (diabetes mellitus) (HCC) - ESRD (end stage renal disease) (HCC) - HTN (hypertension) - Hyperlipidemia - Hypothyroid PAST SURGICAL HISTORY Procedure Laterality Date - HERNIA REPAIR HX 1983 inguinal - REPAIR UMBILICAL JAMES,5+Y/O,REDUC 11/19/12 with mesh FAMILY HISTORY Problem Relation Age of Onset - Alcohol/Drug Sister - Stroke Father - Heart Father Social History Substance Use Topics - Smoking status: Never Smoker - Smokeless tobacco: Current User Types: Snuff - Alcohol use Not on file Comment: 1/month MEDICATIONS: Reviewed ALLERGIES No Known Allergies REVIEW OF SYSTEM: GENERAL: No weight loss, malaise or fevers HEENT: Negative for frequent or significant headaches, No changes in hearing or vision, no nose bleeds or other nasal problems NECK: Negative for lumps, goiter, pain and significant neck swelling RESPIRATORY: Negative for cough, hemoptysis, wheezing, COPD, dyspnea or shortness of breath CARDIOVASCULAR: Negative for chest pain, leg swelling, hypertension, CHF or palpitations GI: No nausea, vomiting, or diarrhea +melena : No history of dysuria, frequency or incontinence MUSCULOSKELETAL: Negative for joint pain or swelling, back pain or muscle pain SKIN: Negative for lesions, rash, and itching PSYCH: Negative for sleep disturbance, mood disorder and recent psychosocial stressors HEMATOLOGY/LYMPHOLOGY: Negative for prolonged bleeding, bruising easily or swollen nodes ENDOCRINE: Negative for cold or heat intolerance, polyuria, polydipsia and goiter NEURO: No history of headaches, syncope, paralysis, seizures or tremors Objective PHYSICAL EXAM: BP 165/73 Pulse 74 Temp (Src) 98.1 (Temporal Artery) Resp 18 Ht 5' 10 (1.78m) Wt 185 lb (83.9kg) SpO2 92% BMI 26.54 kg/(m2). GENERAL: Alert, no distress, cooperative SKIN: Skin color, texture, turgor normal. No rashes or lesions. HEENT: normocephalic, atraumatic, EOMI, VESTA, sclerae anicteric NECK: No jugulovenous distention. Supple, no thyromegaly or lymphadenopathy. Trachea midline. LUNGS: Lungs clear to auscultation b/l, no wheezes, rhonchi or crackles. Good respiratory effort. CARDIAC: Normal S1 and S2; no rubs, murmurs, or gallops ABDOMEN: Abdomen soft, non-tender, BS normal, No masses or organomegaly EXTREMITIES: Extremities normal, no deformities, edema, clubbing or skin discoloration. Good capillary refill., No ulcers DATA: Diagnostic tests reviewed for today's visit: Most recent labs and imaging results. Assessment/Plan Active Problems: Acute blood loss anemia, likely due to GI loss, positive occult blood POA: Yes Assessment AND Plan: s/p transfusion -monitor HANDH -consult GI for EGD ESRD (end stage renal disease) ([facility]) POA: Yes Assessment AND Plan: -consult nephrology for HD( Saturday, , DM (diabetes mellitus), POA: Yes Assessment AND Plan: -accucheck achs -continue home medications Essential hypertension POA: Yes Assessment AND Plan: -continue Lisinopril Hypothyroidism -continue Synthroid VTE Prophylaxis: Heparin 5000 units Sub Q BID Disposition: Home Plan of care discussed with: Patient SIGNATURE: Ilene Burns MD PATIENT NAME: Robert Mccrary DATE: August 02, 2018 TIME: 7:49 PM PAGER/CONTACT #: DISCHARGE SUMMARY Observed: 08/02/2018 Status: F Source: [place] 4:23 PM [facility] [place] [facility] Medical Records Department [address] [place] [id number] Discharge Summary 08/02/18 1551 MR#: [id number] Acct: [id number] Name: ROBERT MCCRARY Rep #: [id number] : 1960 58 From: Lance WASHINGTON PCP: Abran Reveles MD Status: ADM IN Y Location: [facility] [id number] <Lance Hernandez - Last Filed: 08/02/18 15:51> Discharge Date and Diagnosis - Problem List Patient Problems: Active and Suspected Problems (Last Reviewed 07/04/18 @ 12:49 by Kady Freire) Anemia (Acute) Blood loss anemia (Acute) Chronic renal failure, stage 4 (severe) (Acute) Date of Admission: 08/01/18 Date of Discharge: 08/02/18 - Primary Discharge Diagnosis Active and Suspected Problems (Last Reviewed 07/04/18 @ 12:49 by Kady Freire) Acute blood loss anemia 2/2 suspected GI bleed Acute respiratory failure 2/2 CHF exacerbation 2/2 volume overload - resolving Chronic abdominal pain and nausea, mesenteric and retroperitoneal lymphadenopathy ESRD, last dialysis today HTN stable Hypothyroid GERD DMt2 diet controlled Chronic leukocytosis unclear etiology - Secondary Discharge Diagnosis Chronic Problems (Last Reviewed 07/04/18 @ 12:49 by Kady Freire) ESRD (end stage renal disease) (Chronic) Lymphadenopathy (Chronic) Hyperlipidemia (Chronic) Hypothyroidism (Chronic) Hypertension (Chronic) Type II diabetes mellitus (Chronic) Hospital Course and Treatment Imaging Results: 08/02/18 09:29 Echo Complete [ECHO] Routine Results pending RAD/Chest PA and Lateral IMPRESSION: Bilateral airspace disease suggestive of pulmonary edema. Infection should be ruled out if clinically indicated. Consults: Reddy - nephrology Hailey - Gen surgery Operations: None Procedures: 2-D Echocardiogram, Dialysis Summary of Care Provided: Physical exam on day of discharge: See daily progress note Hospital course: The patient is a 58 year old M with a history of end-stage renal disease, patient of Dr. Blakely, with a history of chronic abdominal pain and nausea and dry heaving daily, mesenteric and retroperitoneal lymphadenopathy of unclear etiology, chronic leukocytosis of unclear etiology, hypertension, hypothyroidism, DMt2 diet controlled who presented to the emergency room with chief complaint of shortness of breath. Over the past week he had become progressively more short of breath, very weak, tired, dizzy and lightheaded with ambulation. Very short of breath at night and unable to sleep for the past 2 nights. He was found to be severely anemic with a hemoglobin of 5.8. He had declined about 4 g over the past month. About 1 month prior he went to the emergency room for abdominal pain. At that time he was found to have a positive occult blood, and at that time a CT of the abdomen was obtained showing the adenopathy as mentioned above. He was referred to gen surgery Dr. Walker and a colonoscopy was performed which was difficult due to not being able to enter the terminal ileum. He was then referred to GI as an outpatient but was not able to be seen for several months and this has not happened yet. This admission, he was admitted to the PCU for monitorine and started on 3 units of packed red blood cells. He denied having any black or tarry stools, no bright red blood in his stools, and no coffee-ground or bloody emesis tho he was nauseous and dry heaving daily. He was seen by general surgery who did not feel that there is anything else they can offer him at this time and felt that he needed acute referral to a GI specialist which we do not have here at this time. The patient developed increased shortness of breath overnight-he had an elevated BNP and a chest x-ray consistent with pulmonary edema, and had significant increased oxygen demand. He does not use oxygen at home. He appeared to have congestive heart failure. An echocardiogram was obtained (pending) as he had not had CHF before and we have no echo in the system, and he was started on IV Lasix. He was dialyzed the following day with resolution of his increased oxygen demand. He still continues to have some mild shortness of breath however his respiratory failure has resolved at this time. We recommended that he be transferred to have his blood loss anemia worked up by GI. He was accepted at [facility] and he was transferred in stable condition. Total he received 3 units of packed red blood cells, 1 further unit was held. Dialysis was completed on 08/02/2018. This patient was seen by Lance Hernandez PA-C under the supervision of Doctor Crisostomo. [] Discharge Activity: - - as directed Home Medications: Medications to take at Discharge Levothyroxine [Synthroid] 150 mcg PO QHS 10/28/15 Simvastatin [Zocor] 20 mg PO QHS 10/28/15 Citalopram Hydrobromide [Citalopram HBr] 40 mg PO QHS 01/03/18 Ergocalciferol [Vitamin D] 50,000 unit PO WE 01/21/18 Amlodipine [Norvasc] 10 mg PO QHS 05/08/18 hydrALAZINE [Apresoline] 25 mg PO TID 05/08/18 Calcium Acetate [Calcium Acetate] 2 cap PO TIDCM 08/01/18 Pantoprazole Sodium [Protonix] 40 mg PO DAILY 08/01/18 Yoko-Anna 0.8 mg PO QHS 08/01/18 Primary Care Physician: Abran Reveles MD [Primary Care Provider] - Please Follow Up With: Vannessa Blakely DO - Nephrology Medical Necessity - Tobacco Use Smoking Status: Never smoker Tobacco Use: Chew Meaningful Use Info Meaningful Use Diagnoses (Choose all that apply): None applicable <Liam Crisostomo - Last Filed: 08/02/18 16:22> Discharge Date and Diagnosis - Primary Discharge Diagnosis Active and Suspected Problems (Last Reviewed 07/04/18 @ 12:49 by Kady Freire) Anemia (Acute) Blood loss anemia (Acute) Chronic renal failure, stage 4 (severe) (Acute) - Secondary Discharge Diagnosis Chronic Problems (Last Reviewed 07/04/18 @ 12:49 by Kady Freire) ESRD (end stage renal disease) (Chronic) Lymphadenopathy (Chronic) Hyperlipidemia (Chronic) Hypothyroidism (Chronic) Hypertension (Chronic) Type II diabetes mellitus (Chronic) Hospital Course and Treatment Imaging Results: 08/02/18 09:29 Echo Complete [ECHO] Routine Operations: None Procedures: 2-D Echocardiogram, Dialysis Summary of Care Provided: Patient seen and examined independently. Data reviewed. I agree with the above note by the physician clinical project assistant. The patient is a 58 year old M since with symptomatic anemia. Hemoglobin of 5.8. Patient was transfused here total of 3 units. Hemoglobin came up to 7.1 after the first 2 units. Gastroenterology at [facility] stated the patient can follow-up as outpatient, however given the symptomatic anemia the fact that has not been fully worked up it is felt most. The patient be transferred to another facility. Patient was accepted by [facility]. Patient has already had a colonoscopy and will require an EGD and possibly more studies to further evaluate what is suspected a GI bleed. [] Discharge Diet: Renal Diet Discharge Activity: - Minutes spent on discharge:: 32 Patient Condition:: Stable Meaningful Use Info Meaningful Use Diagnoses (Choose all that apply): None applicable Code Visit Inpatient Emily AND M: [id number] Disch Hosp 08/02/18 1604 <Electronically signed by Lance WASHINGTON> Date Lance WASHINGTON 08/02/18 1623<Electronically signed by Liam Crisostomo DO> Cosigner Signature (if applicable): Date Liam Crisostomo DO CC: PADMINI Hernandez; Liam Crisostomo DO; Abran Reveles MD Signed DISCHARGE INSTRUCTION Observed: 08/02/2018 Status: F Source: [place] 3:51 PM [facility] [place] Medical Records Department [address] [place] [address] Instructions for Home/Discharge Instructions 08/02/18 1549 MR#: [id number] Acct: [id number] Name: ROBERT MCCRARY Rep #: [id number] : 1960 58 From: Lance WASHINGTON PCP: Abran Reveles MD Status: ADM IN - Discharge Diagnoses Current Active Problems: Current Active and Chronic Problems (Last Reviewed 07/04/18 @ 12:49 by Kayd Freire) Anemia (Acute) ESRD (end stage renal disease) (Chronic) Blood loss anemia (Acute) Chronic renal failure, stage 4 (severe) (Acute) You will use the following diet at home:: Other - as directed by receiving facility Your food should be the consistency of: Regular Your liquids should be the consistency of: Regular/Thin Discharge Activity: - - as directed Allergies/Adverse Reactions: Allergies epoetin beta [From Mircera] Adverse Reaction (Verified 08/01/18 16:35) back pain Medications to take at Discharge Levothyroxine [Synthroid] 150 mcg PO QHS 10/28/15 Simvastatin [Zocor] 20 mg PO QHS 10/28/15 Citalopram Hydrobromide [Citalopram HBr] 40 mg PO QHS 01/03/18 Ergocalciferol [Vitamin D] 50,000 unit PO WE 01/21/18 Amlodipine [Norvasc] 10 mg PO QHS 05/08/18 hydrALAZINE [Apresoline] 25 mg PO TID 05/08/18 Calcium Acetate [Calcium Acetate] 2 cap PO TIDCM 08/01/18 Pantoprazole Sodium [Protonix] 40 mg PO DAILY 08/01/18 Yoko-Anna 0.8 mg PO QHS 08/01/18 Primary Care Physician: Abran Reveles MD [Primary Care Provider] - Test Results: Test results from this visit will be discussed in further detail at your follow-up appointment, if applicable. Please Follow Up With: Vannessa Blakely DO - Nephrology Proposed Discharge Date: 08/02/18 08/02/18 1551 <Electronically signed by Lance WASHINGTON> Date Lance WASHINGTON CC: Vannessa Blakely DO; Abran Reveles MD; Amanda Hart MD HH, HEMOGLOBIN AND Collected: 08/02/2018 Status: F Source: EMPERATRIZ HEMATOCRIT 12:40 PM [facility] [place] CODE TESTS RESULT OUT OF RANGE REFERENCE UNITS LAB L100.1300 13.0-16.5 g/dl Low HGB 7.8 LAB L100.1400 40-54 % Low HCT 24.5 Performed By: #### L100.0600 #### [facility] [address] [place], [address] CBC W/DIFF, AUTOMATED Collected: 08/02/2018 Status: F Source: EMPERATRIZ 2:33 AM [facility] [place] CODE TESTS RESULT OUT OF RANGE REFERENCE UNITS LAB L100.1000 4.4-11.0 K/mm3 High WBC 18.6 LAB L100.1200 4.6-6.2 M/mm3 Low RBC 2.60 LAB L100.1300 13.0-16.5 g/dl Low HGB 7.1 LAB L100.1400 40-54 % Low HCT 22.6 LAB L100.1500 80-94 fL Normal MCV 86.9 LAB L100.1600 27.0-32.0 pg Normal MCH 27.3 LAB L100.1700 32-36 g/gl Low MCHC 31.4 LAB L100.1810 11.6-14.6 % High RDW CV 15.6 LAB L100.1820 35.1-43.9 fl High RDW SD 49.4 LAB L100.1900 150-450 K/mm3 Normal PLT 331 LAB L100.2000 6.2-12.0 fl Normal MPV 8.2 LAB L100.2100 47-70 % High NEUT% 83.3 LAB L100.2200 19-41 % Low LY% 7.7 LAB L100.2300 0-10 % Normal MONO% 7.9 LAB L100.2400 0-5 % Normal EO% 0.6 LAB L100.2500 0-1 % Normal BASO% 0.2 LAB L100.2550 0.0-0.9 % Normal IM GRAN % 0.300 Result Comment: IG% - Immature Granulocytes (promyelocytes, myelocytes and metamyelocytes) > 1% indicates that a LEFT SHIFT is Present. LAB L100.2620 2.0-7.7 X10 3/uL High Absolute Neut 15.5 LAB L100.2720 0.83-4.51 X10 3/ul Normal Absolute Lymph 1.44 Performed By: #### L100.0100 #### [facility] [address] [place], [address] BASIC METABOLIC Collected: 08/02/2018 Status: F Source: [facility] 2:33 AM [facility] [place] CODE TESTS RESULT OUT OF RANGE REFERENCE UNITS LAB L501.0100 74-106 mg/dL Normal GLU 103 Result Comment: Fasting Glucose result from 100 to 125 mg/dL suggests IMPAIRED HOMEOSTASIS per A.D.A. criteria. Please note revised GLUCOSE reference range effective 2017. LAB L501.1000 7-18 mg/dL High BUN 31 LAB L501.1100 0.70-1.30 mg/dL High CREAT,SERUM 6.98 Result Comment: The validity of the calculated GFR AND GFRAA in patients over 70 years has not been determined. Clinical correlation is essential. LAB L501.1110 >60 mL/min Low EST GFR 9 Result Comment: Non- GFR Calc LAB L501.1115 >60 mL/min Low EST GFR - AA 11 Result Comment: GFR Calc LAB L501.1255 ml/min Normal Estimated CRCL 12.20 LAB L501.1300 10-20 RATIO Low BUN/CRE 4.4 LAB L501.2200 8.5-10 mg/dL Low .1 CA 8.1 LAB L501.5300 136-14 mmol/L Normal 5 NA 140 LAB L501.5600 3.5-5. mmol/L Normal 1 K 3.7 LAB L501.5900 98-107 mmol/L Normal CL 101 LAB L501.6100 21.0-3 mmol/L Normal 2.0 CO2 28.0 LAB L501.6200 5-15 Normal GAP 11 Performed By: #### L500.2500 #### [facility] [address] [place], [address] HOSP Observed: 08/02/2018 Status: COMPLETED Source: [facility] 12:00 AM [facility]IN[facility] OTHER CAMPUS REPOSITORY Patient:Robert Mccrary MRN: <[id number]> Height:5' 10(1.778 m) Weight:178 lb 12.8 oz (81.103 kg) Outpatient Medications as of 08/04/18: acetaminophen-HYDROcodone 5-500 mg tablet SIMVASTATIN 20 mg tablet LISINOPRIL 10 mg tablet SYNTHROID 150 mcg tablet CITALOPRAM 20 mg tablet KOMBIGLYZE XR 2.5-1,000 mg TM24 Admission/Clinic Administered Medications as of 08/04/18: pantoprazole 40 mg injection (PROTONIX) ipratropium-albuterol 3 mL nebulizer solution (DUONEB) heparin 1,000 unit/mL 3,200 Units injection lisinopril 10 mg tab(s) (ZESTRIL, PRINIVIL) citalopram 20 mg tab(s) (CeleXA) levothyroxine 150 mcg (SYNTHROID) ondansetron 4 mg tab(s) (ZOFRAN) ondansetron (PF) 4 mg injection (ZOFRAN) acetaminophen 650 mg tab(s) (TYLENOL) sitaGLIPtin 50 mg tab(s) (JANUVIA) atorvastatin 10 mg tab(s) (LIPITOR) Problem List: Umbilical hernia without mention of obstruction or gangrene [K42.9] Melena [K92.1] Acute blood loss anemia [D62] ESRD (end stage renal disease) (HCC) [N18.6] DM (diabetes mellitus), 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] Essential hypertension [I10] Blood loss anemia [D50.0] Hypothyroidism [E03.9] Hypoxia [R09.02] Allergies: No Known Allergies Date Verified:08/04/18 Lab Values Lab Value Units Date High Low POTA* 4.7 mEq/L 08/03/2018 5.1 3.5 ADRIAN* 24.4 % 08/04/2018 51.0 40.1 Progress Notes (): Ilene Burns MD 08/02/2018 8:22 PM Signed DEPARTMENT OF HOSPITAL MEDICINE HISTORY AND PHYSICAL EXAM SERVICE DATE: 08/02/2018 SERVICE TIME: 7:49 PM Primary Care Physician: Abran Reveles MD NIGHT AND WEEKEND COVERAGE: After 7pm, please call cross cover pager #[phone] Subjective CHIEF COMPLAINT: Anemia HPI: This is a 58 year old male with history of ESRD-HD, DM2, HTN presented to [facility] yesterday morning with sob, found to have a Hgb of 5.9, positive occult blood. He had 3U PRBCs transfused, sent to [facility] for GI evaluation. Patient had a colonoscopy done one month ago by Dr. Walker, no acute findings. PAST MEDICAL HISTORY Diagnosis Date - Depression - DM (diabetes mellitus) (HCC) - ESRD (end stage renal disease) (HCC) - HTN (hypertension) - Hyperlipidemia - Hypothyroid PAST SURGICAL HISTORY Procedure Laterality Date - HERNIA REPAIR HX 1983 inguinal - REPAIR UMBILICAL JAMES,5+Y/O,REDUC 11/19/12 with mesh FAMILY HISTORY Problem Relation Age of Onset - Alcohol/Drug Sister - Stroke Father - Heart Father Social History Substance Use Topics - Smoking status: Never Smoker - Smokeless tobacco: Current User Types: Snuff - Alcohol use Not on file Comment: 1/month MEDICATIONS: Reviewed ALLERGIES No Known Allergies REVIEW OF SYSTEM: GENERAL: No weight loss, malaise or fevers HEENT: Negative for frequent or significant headaches, No changes in hearing or vision, no nose bleeds or other nasal problems NECK: Negative for lumps, goiter, pain and significant neck swelling RESPIRATORY: Negative for cough, hemoptysis, wheezing, COPD, dyspnea or shortness of breath CARDIOVASCULAR: Negative for chest pain, leg swelling, hypertension, CHF or palpitations GI: No nausea, vomiting, or diarrhea +melena : No history of dysuria, frequency or incontinence MUSCULOSKELETAL: Negative for joint pain or swelling, back pain or muscle pain SKIN: Negative for lesions, rash, and itching PSYCH: Negative for sleep disturbance, mood disorder and recent psychosocial stressors HEMATOLOGY/LYMPHOLOGY: Negative for prolonged bleeding, bruising easily or swollen nodes ENDOCRINE: Negative for cold or heat intolerance, polyuria, polydipsia and goiter NEURO: No history of headaches, syncope, paralysis, seizures or tremors Objective PHYSICAL EXAM: BP 165/73 Pulse 74 Temp (Src) 98.1 (Temporal Artery) Resp 18 Ht 5' 10 (1.78m) Wt 185 lb (83.9kg) SpO2 92% BMI 26.54 kg/(m2). GENERAL: Alert, no distress, cooperative SKIN: Skin color, texture, turgor normal. No rashes or lesions. HEENT: normocephalic, atraumatic, EOMI, VESTA, sclerae anicteric NECK: No jugulovenous distention. Supple, no thyromegaly or lymphadenopathy. Trachea midline. LUNGS: Lungs clear to auscultation b/l, no wheezes, rhonchi or crackles. Good respiratory effort. CARDIAC: Normal S1 and S2; no rubs, murmurs, or gallops ABDOMEN: Abdomen soft, non-tender, BS normal, No masses or organomegaly EXTREMITIES: Extremities normal, no deformities, edema, clubbing or skin discoloration. Good capillary refill., No ulcers DATA: Diagnostic tests reviewed for today's visit: Most recent labs and imaging results. Assessment/Plan Active Problems: Acute blood loss anemia, likely due to GI loss, positive occult blood POA: Yes Assessment AND Plan: s/p transfusion -monitor HANDH -consult GI for EGD ESRD (end stage renal disease) ([facility]) POA: Yes Assessment AND Plan: -consult nephrology for HD( Saturday, , DM (diabetes mellitus), POA: Yes Assessment AND Plan: -accucheck achs -continue home medications Essential hypertension POA: Yes Assessment AND Plan: -continue Lisinopril Hypothyroidism -continue Synthroid VTE Prophylaxis: Heparin 5000 units Sub Q BID Disposition: Home Plan of care discussed with: Patient SIGNATURE: Ilene Burns MD PATIENT NAME: Robert Mccrary DATE: August 02, 2018 TIME: 7:49 PM PAGER/CONTACT #: Bethel Lagunas MD 08/03/2018 6:26 PM Addendum Gastroenterology Consult Service Department of Gastroenterology AND Hepatology [facility]/ [facility] INITIAL CONSULT NOTE Please call [facility] cell phone [phone] directly if you have questions till 5 PM today. After [address]Jon Rich. Case will be discussed with Addendum at 2:[address] Rich Will go for EGD on Saturday. Epic orders placed. NPO after [place] tonestefany SERVICE DATE: 08/03/2018 SERVICE TIME: 8:07 AM Opinion/advice regarding: Anemia IMPRESSION AND PLAN his is a 58 year old male with history of ESRD-HD, DM2, HTN presented to [facility] yesterday morning with sob, found to have a Hgb of 5.9, positive occult blood.Apparently recent cscope was normal. 1) Anemia: corrected after 3 units of PRBC. Apparently recent C-scope 2-3 months back was normal. FOBT was positive. Denies any clinically evident GI bleed. Plan: Asked him to remind his to bring the reports of Cscope. If this is indeed normal then will need a non emergent EGD Saturday or Saturday. Hb pauline appropriately after transfusion. Will keep you posted about the exact timing of scope and will order in epic # Resusucitation measures: Maintain 2 large bore IV lines 18G size at least at all times Transfuse to keep Hb >/+ 7 g/dl. If any history of CAD Keep Hb >/= 9 g/dl protonix 40 mg IV BID Admit to ICU if BP <90/60, HR >100 /orthostatic hypotension Take vitals every 4 hours on RNF, Cycle CBc daily Avoid all NSAIDS. If NSAIDS are indicated for any reasons pleas euse GUERRA-2 inhibitors at low dose and overlap w their use with po PPIs. CC: Anemia HPI: This is a 58 year old male with history of ESRD-HD, DM2, HTN presented to [facility] yesterday morning with sob, found to have a Hgb of 5.9 ( per primary team H and P review), positive occult blood. He had 3U PRBCs transfused, sent to [facility] for GI evaluation. Patient had a colonoscopy done one month ago by Dr. Walker, no acute findings. has reports and will bring them in today He denies any obvious GI bleed in form of melena , hemetemsis, BRBPR. No pain abdomen ? Results for ROBERT MCCRARY ( ) as of 08/03/2018 08:08 Ref. Range 11/03/2012 15:56 08/02/2018 20:50 08/03/2018 06:05 WBC Latest Ref Range: 4.23 - 9.07 thou/cmm 10.59 15.73 (H) 19.26 (H) RBC Latest Ref Range: 4.63 - 6.08 mil/cmm 4.84 3.10 (L) 3.09 (L) HGB Latest Ref Range: 13.7 - 17.5 g/dL 8.5 (L) 8.4 (L) Pertinent Review of Systems: GENERAL: No weight loss, malaise or fevers. SEE HPI NECK: Negative for lumps, goiter, pain and significant neck swelling RESPIRATORY: shortness of breath. CARDIOVASCULAR: Negative for chest pain, leg swelling or palpitations. GI: See HPI MUSCULOSKELETAL: Negative for joint pain or swelling, back pain or muscle pain. HEMATOLOGY/LYMPHOLOGY Negative for prolonged bleeding, bruising easily or swollen nodes. ENDOCRINE: Negative for cold or heat intolerance, polyuria, polydipsia and goiter. NEURO: No history of headaches, syncope, paralysis, seizures or tremors All other reviewed and negative other than HPI. PAST MEDICAL HISTORY: PAST MEDICAL HISTORY Diagnosis Date - Depression - DM (diabetes mellitus) (HCC) - ESRD (end stage renal disease) (HCC) - HTN (hypertension) - Hyperlipidemia - Hypothyroid PAST SURGICAL HISTORY: PAST SURGICAL HISTORY Procedure Laterality Date - HERNIA REPAIR HX 1983 inguinal - REPAIR UMBILICAL JAMES,5+Y/O,REDUC 11/19/12 with mesh FAMILY HISTORY: FAMILY HISTORY Problem Relation Age of Onset - Alcohol/Drug Sister - Stroke Father - Heart Father SOCIAL HISTORY: Social History Substance Use Topics - Smoking status: Never Smoker - Smokeless tobacco: Current User Types: Snuff - Alcohol use Not on file Comment: 1/month MEDICATIONS: Prior to Admission Medications: acetaminophen-HYDROcodone 5-500 mg tablet Take 1-2 tablets by mouth every 4 hours as needed. SIMVASTATIN 20 mg tablet once daily. LISINOPRIL 10 mg tablet once daily. SYNTHROID 150 mcg tablet once daily. CITALOPRAM 20 mg tablet once daily. KOMBIGLYZE XR 2.5-1,000 mg TM24 twice daily. Current hospital medications: pantoprazole 40 mg injection (PROTONIX) 40 mg INTRAVENOUS DAILY (6 AM) lisinopril 10 mg tab(s) (ZESTRIL, PRINIVIL) 10 mg ORAL DAILY citalopram 20 mg tab(s) (CeleXA) 20 mg ORAL DAILY levothyroxine 150 mcg (SYNTHROID) 150 mcg ORAL DAILY (6 AM) ondansetron 4 mg tab(s) (ZOFRAN) 4 mg ORAL q 6 H PRN ondansetron (PF) 4 mg injection (ZOFRAN) 4 mg INTRAVENOUS q 6 H PRN acetaminophen 650 mg tab(s) (TYLENOL) 650 mg ORAL q 6 H PRN heparin 5,000 Units injection 5,000 Units SUBCUTANEOUS q 12 H sitaGLIPtin 50 mg tab(s) (JANUVIA) 50 mg ORAL DAILY WITH BREAKFAST metFORMIN 1,000 mg tab(s) (GLUCOPHAGE) 1,000 mg ORAL DAILY WITH BREAKFAST atorvastatin 10 mg tab(s) (LIPITOR) 10 mg ORAL AT BEDTIME ALLERGIES: ALLERGIES No Known Allergies OBJECTIVE: PHYSICAL EXAM: BP 163/69 Pulse 91 Temp (Src) 97.9 (Oral) Resp 20 Ht 5' 10 (1.78m) Wt 185 lb (83.9kg) SpO2 95% BMI 26.54 kg/(m2). General appearance: AOx3 Skin: Skin color, texture, turgor normal, no rash. Eyes: Anicteric sclera. No palor. Oropharynx: Lips, mucosa, and tongue normal. Lungs: lungs clear to auscultation, no wheezing or rhonchi Heart: RRR Abdomen soft, non-tender. Bowel sounds normal. No masses or organomegaly. Mild umbilical pouting from hernia repair Extremities: Extremities normal. No deformities, No edema. DATA: CBC, Coags, BMP, Mg, Phos Recent Labs 08/03/18 0608/02/180 WBC 19.26* 15.73* HB 8.4* 8.5* HCT 27.2* 26.7* PLT 384* 356 NA 135* 138 K 4.7 3.7 CHLOR 101 99 CO2 25 30 BUN 22* 14 CREAT 4.72* 4.09* GLUC 116* 134* CA 8.5 8.5 Liver Function, Amylase, AND Lipase This note is not final till staffed by GI attending Bethel Lagunas Fellow in Gastroenterology and Hepatology [facility] pager: [phone] [facility] Cell phone: [phone] SIGNATURE: Bethel Lagunas MD PATIENT NAME: Robert Mccrary DATE: August 03, 2018 TIME: 8:07 AM PAGER/CONTACT #: [phone]/ [facility] cell phone:[phone] Previous Version Caitlin Cornejo RN, RN 08/03/2018 9:[address] Mei aware of pt needing o2 at 5 l nc. Stat ekg and cxr done. Pt placed on tele showing nsr Caitlin Cornejo RN, RN 08/03/2018 9:37 AM Signed Troponin obtained and sent to lab. Pt sent to u/s of bilat lower ext Caitlin Cornejo RN, RN 08/03/2018 9:[address] Mei notified of ABG results Caitlin Cornejo RN, RN 08/03/2018 11:04 AM Signed Pt sent for VQ scan via cart RT Grover, Tech 08/03/2018 11:39 AM Signed RADIOLOGY SERVICE PROGRESS NOTE SERVICE DATE: 08/03/2018 SERVICE TIME: 11:38 AM PATIENT IDENTITY VERIFICATION COMPLETED USING TWO (2) METHODS: Patient confirmed name and Date of verbally. PATIENT GENDER DATA: .male ALLERGIES: Reviewed and unchanged MEDICATIONS REVIEWED: Yes PATIENT RELEVANT IMPLANT DATA REVIEWED: Not Applicable CREATININE: Creatinine Date Value Ref Range Status 08/03/2018 4.72 (H) 0.67 - 1.17 mg/dL Final 08/02/2018 4.09 (H) 0.67 - 1.17 mg/dL Final 11/03/2012 0.84 0.70 - 1.40 mg/dL Final eGFR-All Other Races Date Value Ref Range Status 11/03/2012 >60 . Final Comment: eGFR (Estimated GFR) Units of measure: mL/min/1.73 meters squared eGFR is derived from the reexpressed MDRD Study equation using the following parameters: serum creatinine, age, gender and race. The creatinine assay has been calibrated to be traceable to IDMS. An eGFR <60 mL/min/1.73m2 for >3 months is consistent with chronic kidney disease. Refer to KDOQI guidelines for clinical interpretation. eGFR- Date Value Ref Range Status 11/03/2012 >60 Final P.O.C.T. RESULTS: N/A August 03, [address] PERFORMED: No IV SITE: Inpatient - refer to LDA documentation POST EXAM PIV STATUS: Inpatient see LDA documentation PROCEDURE TYPE: VQ Scan: 0.8 mCi of Tc99m DTPA was inhaled. 5.7 mCi of Tc99m MAA was administered IV. ADMINISTRATION TIME: 11;30 PATIENT DISCHARGED TO: Patient taken to IP transport area for return to RNF/ICU/ED. A Diagnostic radioactive procedure has taken place, with no further precautions necessary other than routine body substance precautions. More information regarding radiation safety can be found using this link: [email or web address] SIGNATURE: RT Grover PATIENT NAME: Robert Mccrary DATE: August 03, 2018 TIME: 11:38 AM PAGER/CONTACT #: Sky Acosta MD 08/03/2018 12:23 PM Signed Robert Mccrary is a 58 yo male presented to hospital with severe anemia. Renal service consulted for ESRD. ESRD on HD TTS schedule. Last HD yesterday Presented to [facility] with Hb of 5.9. Received PRBC overnight. Currently complains of dyspnea Recent colonoscopy done at [facility] - apparently was negative Seen by GI. Likely EGD tomorrow on saturday . PAST MEDICAL HISTORY Diagnosis Date - Depression - DM (diabetes mellitus) (HCC) - ESRD (end stage renal disease) (HCC) - HTN (hypertension) - Hyperlipidemia - Hypothyroid PAST SURGICAL HISTORY Procedure Laterality Date - HERNIA REPAIR HX 1983 inguinal - REPAIR UMBILICAL JAMES,5+Y/O,REDUC 11/19/12 with mesh Social History Marital status: Spouse name: Years of education: Number of children: Social History Main Topics Smoking status: Never Smoker Smokeless tobacco: Current User Types: Snuff Current Facility-Administered Medications: pantoprazole 40 mg injection (PROTONIX) 40 mg INTRAVENOUS DAILY (6 AM) Ilene Tetyuk 40 mg at 08/03/18 0557 ipratropium-albuterol 3 mL nebulizer solution (DUONEB) 3 mL INHALATION q 4 H PRN Carlos Mei 3 mL at 08/03/18926 furosemide 80 mg injection (LASIX) 80 mg INTRAVENOUS ONCE Sky Acosta lisinopril 10 mg tab(s) (ZESTRIL, PRINIVIL) 10 mg ORAL DAILY Ilene Tetyuk 10 mg at 08/03/18 08 citalopram 20 mg tab(s) (CeleXA) 20 mg ORAL DAILY Ilene Tetyuk 20 mg at 08/03/18 08 levothyroxine 150 mcg (SYNTHROID) 150 mcg ORAL DAILY (6 AM) Ilene Tetyuk 150 mcg at 08/03/18 0557 ondansetron 4 mg tab(s) (ZOFRAN) 4 mg ORAL q 6 H PRN Ilene Tetyuk Or ondansetron (PF) 4 mg injection (ZOFRAN) 4 mg INTRAVENOUS q 6 H PRN Ilene Tetyuk acetaminophen 650 mg tab(s) (TYLENOL) 650 mg ORAL q 6 H PRN Ilene Tetyuk heparin 5,000 Units injection 5,000 Units SUBCUTANEOUS q 12 H Ilene Tetyuk 5,000 Units at 08/03/18 08 sitaGLIPtin 50 mg tab(s) (JANUVIA) 50 mg ORAL DAILY WITH BREAKFAST Ilene Tetyuk 50 mg at 08/03/18 08 atorvastatin 10 mg tab(s) (LIPITOR) 10 mg ORAL AT BEDTIME Ilene Tetyuk 10 mg at 08/02/182052 Prescriptions Prior to Admission: acetaminophen-HYDROcodone 5-500 mg tablet Take 1-2 tablets by mouth every 4 hours as needed. Disp: 40 tablet Rfl: 1 SIMVASTATIN 20 mg tablet once daily. Disp: Rfl: LISINOPRIL 10 mg tablet once daily. Disp: Rfl: SYNTHROID 150 mcg tablet once daily. Disp: Rfl: CITALOPRAM 20 mg tablet once daily. Disp: Rfl: KOMBIGLYZE XR 2.5-1,000 mg TM24 twice daily. Disp: Rfl: ALLERGIES No Known Allergies 08/03/18 0808/03/1892608/03/1893708/03/18 1037 BP: 162/70 Pulse: 82 82 84 Resp: Temp: TempSrc: SpO2: 95% 96% 94% Weight: Height: General. No obvious distress HEENT. No pallor, icterus, JVD Heart S1, S2 Lungs clear Abdomen soft No edema No cyanosis No rash AAO x 3 Recent Labs 08/03/18 0605 08/02/182049 WBC 19.26* 15.73* HB 8.4* 8.5* HCT 27.2* 26.7* PLT 384* 356 NA 135* 138 K 4.7 3.7 CHLOR 101 99 CO2 25 30 CREAT 4.72* 4.09* BUN 22* 14 GLUC 116* 134* CA 8.5 8.5 Assessment/Plan ESRD. Last HD yesterday. Continue as per schedule Anemia. Due to GI bleed. S/p PRBC Dyspnea. CXR is pretty wet. Will do a UF treatment today for 3-4 L fluid removal. Will give lasix 80 mg IV x once. He says he still makes good amount of urine. Called dialysis staff. They will be here this afternoon for treatment Caitlin Cornejo RN, RN 08/03/2018 1:12 PM Signed Dialysis at bedside to dialize patient. Order from dr Ford to d/c lasix 80 mg iv x1 Caitlin Cornejo RN, RN 08/03/2018 3:[address] Mei notified of hgb 7.4 Carlos Mei MD 08/03/2018 4:51 PM Addendum INPATIENT PROGRESS NOTE After 7pm, please call cross cover pager #[phone] SERVICE DATE: 08/03/2018 SERVICE TIME: 4:43 PM PRIMARY SERVICE: Hospital Medicine Subjective CHIEF COMPLAINT: Here for : problems listed below Active Hospital Problems Diagnosis Date Noted - Melena 08/02/2018 - Hypothyroidism 08/03/2018 - Acute blood loss anemia 08/02/2018 - ESRD (end stage renal disease) (HCC) 08/02/2018 - DM (diabetes mellitus), type 1 with neurological complications (HCC) 08/02/2018 - Essential hypertension 08/02/2018 INTERVAL HPI: Last night started having sob , walked in and patient was using 5 L O2 HEENT: Negative for nasal congestion and post-nasal drip CARDIOVASCULAR: Negative for palpitations GI: negative for nausea/ emesis : negative for dysuria, urgency , frequency MUSCULOSKELETAL: negative for pains/aches SKIN: Negative for rash PSYCH: Negative for active stressors, depression and anxiety ENDOCRINE: Negative for polyuria and polydipsia NEURO: Negative for cognitive changes and morning headaches All other review of systems reviewed and are negative unless other darby stated in the HPI or the ROS Current hospital medications: pantoprazole 40 mg injection (PROTONIX) 40 mg INTRAVENOUS DAILY (6 AM) ipratropium-albuterol 3 mL nebulizer solution (DUONEB) 3 mL INHALATION q 4 H PRN NaCl 0.9% iv infusion 50-200 mL INTRAVENOUS PRN DIALYSIS heparin 1,000 unit/mL 3,200 Units injection 3,200 Units INTRALUMINAL PRN DIALYSIS lisinopril 10 mg tab(s) (ZESTRIL, PRINIVIL) 10 mg ORAL DAILY citalopram 20 mg tab(s) (CeleXA) 20 mg ORAL DAILY levothyroxine 150 mcg (SYNTHROID) 150 mcg ORAL DAILY (6 AM) ondansetron 4 mg tab(s) (ZOFRAN) 4 mg ORAL q 6 H PRN ondansetron (PF) 4 mg injection (ZOFRAN) 4 mg INTRAVENOUS q 6 H PRN acetaminophen 650 mg tab(s) (TYLENOL) 650 mg ORAL q 6 H PRN heparin 5,000 Units injection 5,000 Units SUBCUTANEOUS q 12 H sitaGLIPtin 50 mg tab(s) (JANUVIA) 50 mg ORAL DAILY WITH BREAKFAST atorvastatin 10 mg tab(s) (LIPITOR) 10 mg ORAL AT BEDTIME Objective PHYSICAL EXAM: BP 156/82 Pulse 81 Temp (Src) 97.9 (Oral) Resp 18 Ht 5' 10 (1.78m) Wt 185 lb (83.9kg) SpO2 99% BMI 26.54 kg/(m2). Constitutional - Vitals as above, not in acute distress Resp - Clear to auscultate both sides, no wheezes, crackles or rales, no labored breathing CVS- RRR. No murmur, gallop or rub, pulse 2+ GI - NTND, bowel sounds normally heard, no mass palpable GEOPHYSICAL PROSPECTING SURVEYOR- cranial nerves 2 to 12 grossly intact, no focal motor or sensory deficits noted, speech normal/ Psych- A ANDO x 3, mood normal Skin- Normal tugor, no ulcers or rashes DATA: Diagnostic tests reviewed for today's visit: Most recent labs and imaging results. Hemoglobin (g/dL) Date Value 11/03/2012 13.4 HGB (g/dL) Date Value 08/03/2018 7.4 Hematocrit (%) Date Value 08/03/2018 24.0 WBC (thou/cmm) Date Value 08/03/2018 19.26 Glucose (mg/dL) Date Value 08/03/2018 116 Potassium (mEq/L) Date Value 08/03/2018 4.7 Sodium (mEq/L) Date Value 08/03/2018 135 Chloride (mEq/L) Date Value 08/03/2018 101 CO2 (mEq/L) Date Value 08/03/2018 25 Creatinine (mg/dL) Date Value 08/03/2018 4.72 BUN (mg/dL) Date Value 08/03/2018 22 Anion Gap (no units) Date Value 08/03/2018 14 Calcium (mg/dL) Date Value 08/03/2018 8.5 Protein, Total (g/dL) Date Value 11/03/2012 7.8 Albumin (g/dL) Date Value 11/03/2012 4.1 Bilirubin, Total (mg/dL) Date Value 11/03/2012 0.2 Alkaline Phosphatase (U/L) Date Value 11/03/2012 55 AST (U/L) Date Value 11/03/2012 32 ALT (U/L) Date Value 11/03/2012 62 Assessment/Plan Principal Problem: Hypoxia: I have ordered an extensive workup including EKG and chest x-ray ventilation/perfusion scan ABGs. It seems that the patient on chest x-ray has pulmonary edema. I asked the patient if he has any cardiac condition he stated that there was an echo done approximately 3 days ago when he was in was temperature that showed possible heart failure. At a conversation with the senior talent acquisition specialist regarding diuresing the patient. He ordered Lasix 80 mg IV, and the patient will go to dialysis today and they will try to remove 3-4 L of fluids. Graciously, senior talent acquisition specialist also has access to records, he will present to the echocardiogram and place it on the chart tomorrow. This could be either CHF exacerbation or fluid overload.I placed him on continuous pulse ox and monitor monitoring for now also. Melena POA: Yes Assessment AND Plan: gastroenterology on board, every 8 hourshemoglobin and hematocrit shows decreasehe status post 3 units of PRBCs. We'll continue to monitor for bleeding. I I've sent for type and screen again and we'll consent the patient tonight. * per GI he will go for EGD on Saturday (tomorrow ESRD (end stage renal disease) (HCC) POA: Yes Assessment AND Plan: dialysis today per nephrology DM (diabetes mellitus), type 1 with neurological complications ([facility]) POA: Yes Assessment AND Plan: continue home Januvia every 4 checks of blood glucose. for now appears to be close to normal glycemic Essential hypertension POA: Yes Assessment AND Plan: mildly hypertensive today, however he will undergo dialysis we'll reevaluate tomorrow Hypothyroidism POA: Unknown Assessment AND Plan: continue home medications Resolved Problems: * No resolved hospital problems. * Medication and Non-Pharmacologic VTE Prophylaxis/Anticoagulants Anticoagulant AND Antiplatelet Medications Start Dose Route Frequency Ordered Stop 08/03/18 1335 heparin 1,000 unit/mL 3,200 Units injection 3,200 Units INTRALUMINAL PRN DIALYSIS 08/03/18 1336 -- 08/02/181999 heparin 5,000 Units injection (Medical At Risk ) 5,000 Units SUBCUTANEOUS EVERY 12 HOURS 08/02/18 1949 -- 08/03/18 0030 pneumatic compression stockings ([place] 08/02/181999 vte non-pharmacologic prophylaxis - none indicated ([place]) 08/02/181999 activity - mobilize patient ([place]) VTE Prophylaxis: reviewed the heparin protocol, have DC'd the heparin 5000 twice a day due to active bleeding. Dispo: pending GI recommendations SIGNATURE: Carlos Mei MD PATIENT NAME: Robert Mccrary DATE: August 03, 2018 TIME: 4:43 PM PAGER: emma Coffman , After 7pm, please call cross cover pager #[phone] Previous Version Stormy Hopkins, RN, RN 08/03/2018 4:56 PM Signed IUF completed x 2.5 hrs. 3500ml fluid removal. Access via right chest HD cath. Pt stable post tx. See HD flowsheet on chart for details. Caitlin Cornejo, RN, RN 08/03/2018 5:[address] Mei notified of sepsis advisory note Keiko Valdez, RN, RN 08/04/2018 7:45 AM Signed PRE OP LEARNING ASSESSMENT PROCEDURE/SURGERY: GI PROCEDURES: EGD READINESS TO LEARN COGNITIVE ABILITY: Alert and oriented MOTIVATION TO LEARN: Interested FAMILY SUPPORT: Unable to assess - Family not present PATIENT LEARNS BEST BY: Verbal Instruction FACTORS AFFECTING LEARNING: None PHYSICAL LIMITATIONS AFFECTING LEARNING: None Electronically Signed By: Keiko Valdez RN In Department: [place] 3200 TCU/MED Lobito Moraes MD 08/04/2018 8:19 AM Signed ANESTHESIOLOGY DAY OF SURGERY NOTE SERVICE DATE: 08/04/2018 SERVICE TIME: 8:17 AM : 1960 Procedure(s) (LRB): EGD (Left) Surgeon(s): Jadiel Rae Estimated body mass index is 25.66 kg/m? as calculated from the following: Height as of this encounter: 177.8 cm (5' 10). Weight as of this encounter: 81.1 kg (178 lb 12.8 oz). Most recent hematocrit and potassium results: Hematocrit 24.4 08/04/2018 Potassium 4.7 08/03/2018 ANES DOS/PREOP NOTE: Vitals: 08/04/18 0230 08/04/18 0611 08/04/18 0734 08/04/18 0738 BP: 146/71 138/67 147/69 149/74 Pulse: 74 79 79 80 Resp: Temp: 36.8 ?C (98.2 ?F) 36.6 ?C (97.9 ?F) TempSrc: Oral Oral SpO2: 95% 97% 100% 100% Weight: Height: ACTIVE PROBLEM LIST Umbilical Hernia Without Mention of Obstruction Or Gangrene Melena Acute Blood Loss Anemia Esrd (End Stage Renal Disease) (Hcc) Dm (Diabetes Mellitus), Type 1 With Neurological Complications (Hcc) Essential Hypertension Blood Loss Anemia Hypothyroidism Hypoxia PAST MEDICAL HISTORY Diagnosis Date - Depression - DM (diabetes mellitus) (HCC) - ESRD (end stage renal disease) (HCC) - HTN (hypertension) - Hyperlipidemia - Hypothyroid PAST SURGICAL HISTORY Procedure Laterality Date - HERNIA REPAIR HX 1983 inguinal - REPAIR UMBILICAL JAMES,5+Y/O,REDUC 11/19/12 with mesh FAMILY HISTORY Problem Relation Age of Onset - Alcohol/Drug Sister - Stroke Father - Heart Father Social History: Social History Substance Use Topics - Smoking status: Never Smoker - Smokeless tobacco: Current User Types: Snuff - Alcohol use Not on file Comment: 1/month No current facility-administered medications on file prior to encounter. Current Outpatient Prescriptions on File Prior to Encounter: acetaminophen-HYDROcodone 5-500 mg tablet Take 1-2 tablets by mouth every 4 hours as needed. SIMVASTATIN 20 mg tablet once daily. LISINOPRIL 10 mg tablet once daily. SYNTHROID 150 mcg tablet once daily. CITALOPRAM 20 mg tablet once daily. KOMBIGLYZE XR 2.5-1,000 mg TM24 twice daily. Current Facility-Administered Medications: pantoprazole 40 mg injection (PROTONIX) 40 mg INTRAVENOUS DAILY (6 AM) Ilene Tetyuk 40 mg at 08/04/18 0604 ipratropium-albuterol 3 mL nebulizer solution (DUONEB) 3 mL INHALATION q 4 H PRN Carlos Mei 3 mL at 08/03/18 09 heparin 1,000 unit/mL 3,200 Units injection 3,200 Units INTRALUMINAL PRN DIALYSIS Sky Acosta lisinopril 10 mg tab(s) (ZESTRIL, PRINIVIL) 10 mg ORAL DAILY Ilene Tetyuk 10 mg at 08/03/18 08 citalopram 20 mg tab(s) (CeleXA) 20 mg ORAL DAILY Ilene Tetyuk 20 mg at 08/03/18 08 levothyroxine 150 mcg (SYNTHROID) 150 mcg ORAL DAILY (6 AM) Ilene Tetyuk 150 mcg at 08/04/18 0604 ondansetron 4 mg tab(s) (ZOFRAN) 4 mg ORAL q 6 H PRN Ilene Tetyuk Or ondansetron (PF) 4 mg injection (ZOFRAN) 4 mg INTRAVENOUS q 6 H PRN Ilene Tetyuk acetaminophen 650 mg tab(s) (TYLENOL) 650 mg ORAL q 6 H PRN Ilene Tetyuk sitaGLIPtin 50 mg tab(s) (JANUVIA) 50 mg ORAL DAILY WITH BREAKFAST Ilene Tetyuk 50 mg at 08/03/18 0806 atorvastatin 10 mg tab(s) (LIPITOR) 10 mg ORAL AT BEDTIME Ilene Tetyuk 10 mg at 08/03/18 195 Allergies: ALLERGIES No Known Allergies DOS EXAM: Adequate NPO status: Yes Anesthetic risks, benefits, alternatives, personnel and consent discussed: Yes Patient agrees to proceed: Yes Previous Anesthesia: No history of adverse event. Airway Assessment: MP 2; Neck ROM: Full ROM without neurologic symptoms; Airway Evaluation: No significant abnormalities Symptoms of Sleep Apnea: Hypertension, Age over 50 (58 year old) and Male gender Dentition: Teeth intact. Denies loose teeth or caps Additional Physical Exam: Lungs: Patient health status unchanged since recent history and physical. See history and physical for exam findings. Cardiac: Patient health status unchanged since recent history and physical. See history and physical for exam findings. Additional Pertinent Findings: N/A Blood Products: Not anticipated for this procedure. Anesthetic Plan: MAC with Sedation Pain Management Plan: Parenteral or Oral ASA Class: 4 Other Medical Problems: GIB, anemia s/p 3 units PRBC (Hgb 5.9 to 7.7 this AM), ESRD s/p HD/UF yesterday, pulmonary edema likely 2/2 volume overload that improved with diuresis, DM2, HTN, DAVID on BIPAP, hypothyroid Chronic Beta Gabby medication administered within 24 hours: N/A I have interviewed and examined the patient. I have reviewed the medical record and/or the pre-anesthesia evaluation, pertinent labs, and test results. Significant changes in the patient's condition since the History and Physical, not otherwise documented in primary service progress notes: No This contains updated information obtained within 48 hours of Surgery/Procedure. SIGNATURE: Lobito Moraes MD PATIENT NAME: Robert Mccrary DATE: August 04, 2018 TIME: 8:17 AM CSN: [id number] Progress Notes ([facility] Ban Charles 07/11/2018 1:10 PM Signed Successful attempt to reach patient regarding upcoming appointments scheduled 09/08/18. Patient verbalized and confirmed understanding. Call back number [phone]. Ban Charles HISTORY AND PHYSICAL Observed: 08/01/2018 Status: F Source: [place] EXAM 7:50 PM [facility] [place] [facility] Medical Records Department [address] [place] [address] History and Physical 08/01/18 1704 MR#: [id number] Acct: [id number] Name: ROBERT MCCRARY Rep #: [id number] : 1960 58 From: Lance WASHINGTON PCP: Abran Reveles MD Status: [id number] <Lance Hernandez - Last Filed: 08/01/18 17:04> Problem List (1) Blood loss anemia Status: Acute (2) ESRD (end stage renal disease) Status: Chronic (3) Lymphadenopathy Status: Chronic (4) Hyperlipidemia Status: Chronic (5) Hypothyroidism Status: Chronic (6) Hypertension Status: Chronic (7) Type II diabetes mellitus Status: Chronic History of Present Illness Date of Admission: 08/01/18 Chief Complaint: SOB The patient is a 58 year old M with a hx of ESRD pt of Dr. Blakely, DMt2, hypothyroidism, HLD, DAVID, chronic leukocytosis, abdominal lymphadenopathy HTN, who presented to the ER with increased SOB at home. He has been progressively more SOB this week, with intermittent episodic dizziness especially with any exertion, and an dry cough. He was found to be anemic in the ER, and recently had a positive hemoccult in the ER. He has been following Dr. Walker and did have a colonoscopy 06/24 showing hemorrhoids. He has not noted any black or bright red blood in his stools. He states they are loose and rodney color. He does have vomiting every day - he gets up at about 4 am daily and has vomiting and dry heaving. He has not noticed any blood here either though. He does have intermittent abdominal pain, does not notice any effect of food on his pain. He is not on any blood thinning agents. [] Past Medical History Past Medical History (Chronic Problems): Chronic Problems (Last Reviewed 07/04/18 @ 12:49 by Kady Freire) ESRD (end stage renal disease) (Chronic) Lymphadenopathy (Chronic) Hyperlipidemia (Chronic) Hypothyroidism (Chronic) Hypertension (Chronic) Type II diabetes mellitus (Chronic) Medical History: Medical History (Last Reviewed 07/04/18 @ 12:49 by Kady Freire) Enteritis (Acute) K52.9 Lymphadenopathy (Acute) R59.1 Chronic renal insufficiency, stage V (Acute) N18.5 ELMO (acute kidney injury) (Acute) N17.9 Hyperkalemia (Acute) E87.5 Hyperlipidemia (Chronic) E78.5 Hypothyroidism (Chronic) E03.9 Hypertension (Chronic) I10 Type II diabetes mellitus (Chronic) E11.9 Community acquired pneumonia (Acute) J18.9 Allergies epoetin beta [From Mircera] Adverse Reaction (Verified 08/01/18 16:35) back pain Home Medications: Ambulatory Orders Medication Instructions Recorded Levothyroxine [Synthroid] 150 mcg PO QHS 10/28/15 Simvastatin [Zocor] 20 mg PO QHS 10/28/15 Surgical History: Surgical History (Last Reviewed 07/04/18 @ 12:49 by Kady Freire) H/O hernia repair Z98.890, Z87.19 Presence of surgically created arteriovenous shunt for hemodialysis Z99.2 LLE fistula-05/15/2018 S/P nasal surgery Z98.890 Surgical History: - Psychiatric History: Anxiety, Depression Smoking Status: Never smoker Tobacco Use: Chew - *Family History Maternal Family History: Family History (Last Reviewed 07/04/18 @ 12:49 by Kady Freire) Father No problems noted. History Items: Diabetes Paternal Family History: Family History (Last Reviewed 07/04/18 @ 12:49 by Kady Freire) Father No problems noted. History Items: Stroke Review of Systems Constitutional: Denies: Chills, Fever, Weight Change HEENT: Denies: Head Aches, Sinus Congestion, Sinus Drainage Cardiovascular: Denies: Chest Pain, Palpitations Respiratory: Denies: Cough, Shortness of breath at rest, Sputum production Gastrointestinal: Denies: Abdominal Pain, Nausea, Vomiting Genitourinary: Denies: Dysuria Musculoskeletal: Denies: Joint Pain, Joint Tenderness Skin: Denies: Rash, Wounds Neurological: Denies: Numbness, Tingling, Focal weakness Psychiatric: Denies: Anxiety, Depression, Homicidal Ideations, Suicidal Ideations Hematologic/ Lymphatic: Denies: Easy Bruising, Easy Bleeding VTE Information - Inpt Only VTE Present on Admission: No VTE Mechan Device Prophylaxis: SCD's VTE Pharm Prophylaxis ordered?: No Patient Problems: Active and Suspected Problems (Last Reviewed 07/04/18 @ 12:49 by Kady Freire) Anemia (Acute) Blood loss anemia (Acute) Chronic renal failure, stage 4 (severe) (Acute) - Physical Exam General: Alert, Oriented x3, Cooperative HEENT: Atraumatic, PERRLA, EOMI, Normocephalic Neck: Supple, No JVD, Negative Carotid Bruits Lungs: Clear to auscultation, Normal air movement Cardiovascular: Regular rate, No murmurs Abdomen: Bowel Sounds Present, Soft, Non Tender Extremities: No edema, Capillary Refill Less than 3 Seconds Skin: No rashes, No breakdown Musculoskeletal: No Tenderness to Palpation of Joints or Extremities Neurological: Cranial nerves II-XII grossly intact Psych/Mental Status: Normal Affect, Appropriate, Alert and oriented to time, place, person, mood and affect Vital Signs Temp Pulse Resp BP Pulse Ox 99.6 F H 89 20 H 152/59 H 93 08/01/18 16:48 08/01/18 16:48 08/01/18 16:48 08/01/18 16:48 08/01/18 16:48 Oxygen Flow Rate (L/min) 2 Oxygen Delivery Method Nasal Cannula Weight: 187 lb 6.4 oz Body Mass Index (BMI) 26.9 Assessment/Plan All Active Problems (Last Reviewed 07/04/18 @ 12:49 by Kady Freire) Screening for intestinal cancer (Acute) Anemia (Acute) Blood loss anemia (Acute) Enteritis (Acute) Chronic renal failure, stage 4 (severe) (Acute) Chronic renal insufficiency, stage V (Acute) ELMO (acute kidney injury) (Acute) Hyperkalemia (Acute) Community acquired pneumonia (Acute) 1. Acute blood loss anemia - suspect GI source. Recent hemoccult blood. Consult to Dr. Walker. Serial H/H. IV PPI. Transfuse 2 units prbc. No recent black / bloody stools. Hx frequent vomiting. He does have intermittent abdominal pain. Mesenteric, retroperitoneal adenopathy on recent CT abdomen CXR shows pulmonary edema. 2. ESRD - Pt of Dr. Blakely. Due for dialysis tomorrow 3. Chronic leukocytosis - unclear etiology. Reportedly he is also being worked up for abdominal lymphadenopathy as above 4. DMt2 - SSI. 5. HTN - somewhat elevated, trend DVT ppx: SCDs This patient was seen by Lance Hernandez PA-C under the supervision of Doctor Michelle. <Jakub Martinez F - Last Filed: 08/01/18 19:50> History of Present Illness The patient is a 58 year old M [] Past Medical History Medical History: Medical History (Last Reviewed 07/04/18 @ 12:49 by Kady Freire) Enteritis (Acute) K52.9 Lymphadenopathy (Acute) R59.1 Chronic renal insufficiency, stage V (Acute) N18.5 ELMO (acute kidney injury) (Acute) N17.9 Hyperkalemia (Acute) E87.5 Hyperlipidemia (Chronic) E78.5 Hypothyroidism (Chronic) E03.9 Hypertension (Chronic) I10 Type II diabetes mellitus (Chronic) E11.9 Community acquired pneumonia (Acute) J18.9 Allergies epoetin beta [From Mircera] Adverse Reaction (Verified 08/01/18 16:35) back pain Surgical History: Surgical History (Last Reviewed 07/04/18 @ 12:49 by Kady Freire) H/O hernia repair Z98.890, Z87.19 Presence of surgically created arteriovenous shunt for hemodialysis Z99.2 LLE fistula-05/15/2018 S/P nasal surgery Z98.890 - *Family History Maternal Family History: Family History (Last Reviewed 07/04/18 @ 12:49 by Kady Freire) Father No problems noted. Paternal Family History: Family History (Last Reviewed 07/04/18 @ 12:49 by Kady Freire) Father No problems noted. - Physical Exam Vital Signs Temp Pulse Resp BP Pulse Ox 99.3 F H 86 20 H 160/68 H 90 08/01/18 19:32 08/01/18 19:32 08/01/18 19:32 08/01/18 19:32 08/01/18 19:32 Oxygen Flow Rate (L/min) 4 Oxygen Delivery Method Nasal Cannula Weight: 187 lb 6.4 oz Body Mass Index (BMI) 26.9 Intake and Output for Last 24 Hours Intake Total 0 / 0 Balance 0 / 0 Assessment/Plan Addendum: Dr. Martinez I personally examined the patient and reviewed the chart. I agree with the above. Robert Sweeney is a 58-year-old gentleman with a history of end-stage renal disease, chronic leukocytosis, diabetes, hypertension, he is presenting with acute blood loss anemia. Today he was symptomatic with lightheadedness and dizziness and felt that he might almost pass out. Within the last month he has had a positive fecal occult stool. General: Alert, Oriented x3, Cooperative HEENT: Atraumatic, EOMI, Normocephalic Neck: Supple, No JVD Lungs: Clear to auscultation, Normal air movement Cardiovascular: Regular rate, No murmurs Abdomen: Bowel Sounds Present, Soft, Non Tender Extremities: No edema, Capillary Refill Less than 3 Seconds Skin: No rashes, No breakdown Musculoskeletal: No Tenderness to Palpation of Joints or Extremities Neurological: Cranial nerves II-XII grossly intact Psych/Mental Status: Normal Affect, Appropriate, Alert and oriented to time, place, person, mood and affect 1. 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 who does go to [facility] DVT: SCDs Diet: NPO Code Visit Inpatient E AND M: [id number] Init Hosp L3 08/01/18 1724 <Electronically signed by Lance WASHINGTON> Date Lance WASHINGTON 08/01/18 1950<Electronically signed by Jakub Martinez MD> Cosigner Signature: Date (if applicable) Jakub Martinez MD CC: PADMINI Hernandez; Abran Reveles MD; Jakub Martinez MD Signed CONSULTATION Observed: 08/01/2018 Status: F Source: [place] 7:12 PM [facility] [place] [facility] Medical Records Department [address] [place] [address] Consultation 08/01/18 1902 MR#: [id number] Acct: [id number] Name: ROBERT MCCRARY Rep #: [id number] : 1960 58 From: Amanda Hart MD PCP: Abran Reveles MD Status: ADM IN Location: [place] [address] Reason for Consult Date of Consultation: 08/01/18 Reason for Consultation: Anemia History of Present Illness: The patient is a 58 year old M presented to the ER due to extreme shortness of breath and almost feeling like she was going to pass out. In the ER his hemoglobin is noted to be 5.8 His last hemoglobin from July 01 was 9.5. Patient states he does have dry heaves/vomits every day denies having any blood patient also states he has bowel movements 1-2 times a day and they are light brown even today. Patient has been getting worked up for terminal ileum and distal jejunal thickening seen on CT as well as small bowel follow- through. Did have a colonoscopy on 06/24/[address] Walker which he was able to intubate the cecum but not the terminal ileum. His ESR and CRP were also quite elevated. He was referred to gastroenterology and he did see Dr. Murali Rueda in late June. Plan was for Dr. Rueda to do an EGD as well as likely a colonoscopy in August since his schedule was busy. Patient states that prior to seeing Dr. Rueda he did have lower abdominal pain however after seen Dr. Rueda that has resolved on its own. Past Medical History Past Medical History (Chronic Problems): Chronic Problems (Last Reviewed 07/04/18 @ 12:49 by Kady Freire) ESRD (end stage renal disease) (Chronic) Lymphadenopathy (Chronic) Hyperlipidemia (Chronic) Hypothyroidism (Chronic) Hypertension (Chronic) Type II diabetes mellitus (Chronic) Medical History: Medical History (Last Reviewed 07/04/18 @ 12:49 by Kady Freire) Enteritis (Acute) K52.9 Lymphadenopathy (Chronic) R59.1 Chronic renal insufficiency, stage V (Acute) N18.5 ELMO (acute kidney injury) (Acute) N17.9 Hyperkalemia (Acute) E87.5 Hyperlipidemia (Chronic) E78.5 Hypothyroidism (Chronic) E03.9 Hypertension (Chronic) I10 Type II diabetes mellitus (Chronic) E11.9 Community acquired pneumonia (Acute) J18.9 Allergies epoetin beta [From Mircera] Adverse Reaction (Verified 08/01/18 16:35) back pain Home Medications: Ambulatory Orders Medication Instructions Recorded Levothyroxine [Synthroid] 150 mcg PO QHS 10/28/15 Simvastatin [Zocor] 20 mg PO QHS 10/28/15 Surgical History: Surgical History (Last Reviewed 07/04/18 @ 12:49 by Kady Freire) H/O hernia repair Z98.890, Z87.19 Presence of surgically created arteriovenous shunt for hemodialysis Z99.2 LLE fistula-05/15/2018 S/P nasal surgery Z98.890 Surgical History: - Psychiatric History: Anxiety, Depression Smoking Status: Never smoker Tobacco Use: Chew - *Family History Maternal Family History: Family History (Last Reviewed 07/04/18 @ 12:49 by Kady Freire) Father No problems noted. History Items: Diabetes Paternal Family History: Family History (Last Reviewed 07/04/18 @ 12:49 by Kady Freire) Father No problems noted. History Items: Stroke Review of Systems Constitutional: Reports: Fatigue. Denies: Fever Cardiovascular: Denies: Chest Pain Respiratory: Reports: Shortness of breath at rest Gastrointestinal: Denies: Abdominal Pain, Diarrhea Genitourinary: Denies: Dysuria Skin: Denies: Rash Neurological: Denies: Difficulty swallowing Psychiatric: Reports: Anxiety. Denies: Depression Hematologic/ Lymphatic: Denies: Easy Bleeding Patient Problems: Active and Suspected Problems (Last Reviewed 07/04/18 @ 12:49 by Kady Freire) Anemia (Acute) Blood loss anemia (Acute) Chronic renal failure, stage 4 (severe) (Acute) - Physical Exam General: Alert, Oriented x3, Cooperative, No apparent distress HEENT: Atraumatic, Normocephalic Lungs: Normal air movement Cardiovascular: Regular rate Abdomen: Soft, Non Tender - No peritoneal signs, Non-Distended Extremities: No clubbing, No cyanosis, No edema, - - Left forearm AV fistula good thrill Neurological: Cranial nerves II-XII grossly intact Psych/Mental Status: Normal Affect Vital Signs Temp Pulse Resp BP Pulse Ox 98.6 F 86 20 H 158/70 H 90 08/01/18 18:32 08/01/18 18:32 08/01/18 18:32 08/01/18 18:32 08/01/18 18:32 Oxygen Flow Rate (L/min) 4 Oxygen Delivery Method Nasal Cannula Weight: 187 lb 6.4 oz Body Mass Index (BMI) 26.9 Intake and Output for Last 24 Hours Intake Total 0 / 0 Balance 0 / 0 Assessment/Plan All Active Problems (Last Reviewed 07/04/18 @ 12:49 by Kady Freire) Screening for intestinal cancer (Acute) Anemia (Acute) Blood loss anemia (Acute) Enteritis (Acute) Chronic renal failure, stage 4 (severe) (Acute) Chronic renal insufficiency, stage V (Acute) ELMO (acute kidney injury) (Acute) Hyperkalemia (Acute) Community acquired pneumonia (Acute) 58-year-old male with anemia of 5.8, thickened terminal ileum and distal jejunum elevated CRP and ESR 1. Patient previously saw Dr. Murali Rueda with GI due to his thickening of the his distal small bowel as well as anemia. Had planned a scope in August due to Dr. Rueda schedule. However patient presents with anemia of 5.8 but he denies any bloody stools states there are light brown also denies any hematemesis but he does admit to dry heaves/vomiting almost daily. Recommend patient be transferred to a facility with GI so he can undergo an EGD as well as a colonoscopy and intubation of the terminal ileum which will hopefully provide answers to the thickening of the small bowel. Patient is agreeable to be transferred and has no further questions at this time. Discussed with Dr. Martinez and he will check to make sure Dr. Blakely is aware as she has been following for his chronic kidney disease and anemia. 2. Anemia-patient currently receiving 2 units of packed red blood cells, vital signs stable Amanda Hart M.D. Pager: [phone] [facility] [address] [place] [address], [facility], [address] [place] [address] Office: [phone] Code Visit Inpatient CYRIL: 43840 Init Hosp L1 08/01/181911 <Electronically signed by Amanda Hart MD> Date Amanda Hart MD Cosigner Signature (if applicable): Date CC: Vannessa Blakely DO; Abran Reveles MD; Amanda Hart MD Signed EMERGENCY DEPARTMENT Observed: 08/01/2018 Status: F Source: [place] SUMMARY 3:26 PM [facility] [place] [facility] Medical Records Department [address] [place] [id number] Emergency Department Summary 08/01/18 1305 MR#: [id number] Acct: [id number] Name: ROBERT MCCRARY Rep #: [id number] : 1960 58 From: Liam Blackmon DO PCP: Abran Reveles MD Status: REG ER - ER Visit Summary Date of Service: 08/01/18 Chief Complaint: Cough and shortness of breath History of Present Illness: The patient is a 58 M who presents with cough and shortness of breath that has been getting worse over the past couple days. Patient states his chest feels tight at times. Patient states he is coughing but denies any sputum production. Patient denies any fevers or chills. Patient denies any upper respiratory symptoms. Patient states his breathing is worse with exertion and with coughing. Physical Examination: Vital signs are stable. Patient is afebrile. Patient is in no acute distress. Oral mucosa is pink and moist. Neck is supple. Trachea is midline. There is no JVD or lymphadenopathy noted. Pupils are equal, round, reactive to light bilateral. Extraocular muscles are intact. Conjunctiva is clear. Heart is regular rate and rhythm. Lungs are clear and equal bilaterally. There is good respiratory effort noted. Abdomen is soft. Bowel sounds are normal. There is no tenderness noted. Cranial nerves II through XII are intact. There are no focal motor or sensory deficits noted. The remaining physical exam is within normal limits. Test Results: CBC showed a hemoglobin 5.8. There is also an elevated white blood cell count of 16.7. Creatinine was 5.96. Chest x-ray shows evidence of mild bilateral pulmonary edema. Emergency Department Course and Treatment: Patient declined rectal examination. Patient states he had a recent colonoscopy done by Dr. Walker. Patient states Dr. Walker also ordered stool studies which he dropped off in the lab recently but this not know the results of those. Patient was typed and crossmatched for 2 units of packed red blood cells. Patient is agreeable to transfusion. Case was discussed with Dr. Martinez. He will admit the patient to his service. Patient understood and was agreeable with the plan. All questions were answered. Disposition: Admit to hospital Impression: Anemia This note was generated with Electronifie dictation software. It may contain incorrect words, spelling, and punctuation that were not noted in review of the chart prior to signing ED Disposition - Plan for ED Patient: Disposition: Acute Care Hospital [facility] Chief Complaint: Shortness of Breath Diagnosis: Anemia, Chronic renal failure, stage 4 (severe) Referrals: Abran Reveles MD [Primary Care Provider] - What to do if you have Problems For any increased pain, shortness of breath, bleeding, nausea or vomiting, chest pain, or any unexpected problems, contact your Primary Care Provider. Call [facility] ([phone]) or report to the closest Emergency Room. Call 911 if necessary. 08/01/18 1526 <Electronically signed by Liam Blackmon DO> Date Liam Blackmon DO Cosigner Signature (If Indicated): Date CC: Abran Reveles MD TYPE AND SCREEN Collected: 08/01/2018 Status: F Source: EMPERATRIZ 1:47 PM [facility] [place] Order Comment: Reason for Type AND Screen/Red Cells: ANEMIA TYPE CODE TESTS RESULT OUT OF RANGE REFERENCE UNITS LAB B10.0800 A Normal BLOOD TYPE GEL POSITIVE LAB B100.4000 Normal Antibody NEGATIVE Screen Performed By: #### B101.7450 #### [facility] Laboratory [address] [place], [address] Collected: 08/01/2018 Status: F Source: [place] 1:47 PM [facility] TYPE CODE TESTS RESULT OUT OF REFERENCE UNITS RANGE LAB U100.0000 [id number] TRANSFUSED PRODUCT: T AND S with Crossmatch, Red Cells COUNT: 2 Performed By: #### U100.0000 #### [facility] Laboratory - refer to report for specific site RC Collected: 08/01/2018 Status: F Source: [place] 1:47 PM [facility] [place] TYPE CODE TESTS RESULT OUT OF REFERENCE UNITS RANGE LAB U100.0000 [id number] TRANSFUSED PRODUCT: T AND S with Crossmatch, Red Cells COUNT: 1 Performed By: #### U100.0000 #### [facility] Laboratory - refer to report for specific site CBC W/DIFF, AUTOMATED Collected: 08/01/2018 Status: C Source: EMPERATRIZ 1:18 PM [facility] Order Comment: CRITICAL VALUE VERIFIED. CALLED TO MAYA 08/01/18 1329 Lyle Ames. RESULTS READ BACK BY RADHA . TYPE CODE TESTS RESULT OUT OF RANGE REFERENCE UNITS LAB L100.1000 4.4-11.0 K/mm3 High WBC 16.7 LAB L100.1200 4.6-6.2 M/mm3 Low RBC 2.20 LAB L100.1300 13.0-16.5 g/dl Low alert HGB 5.8 Result Comment: CRITICAL VALUE VERIFIED. CALLED TO LEYDI PAREKH 08/01/18 1406 Lyle Ames. RESULTS READ BACK BY LEYDI . AMENDED REPORT 08/01/181405 HGB previously reported as: 5.8 *L g/dl LAB L100.1400 40-54 % Low HCT 19.5 LAB L100.1500 80-94 fL Normal MCV 88.6 LAB L100.1600 27.0-32.0 pg Low MCH 26.4 LAB L100.1700 32-36 g/gl Low MCHC 29.7 LAB L100.1810 11.6-14.6 % High RDW CV 15.4 LAB L100.1820 35.1-43.9 fl High RDW SD 47.9 LAB L100.1900 150-450 K/mm3 Normal PLT 433 LAB L100.2000 6.2-12.0 fl Normal MPV 8.2 LAB L100.2100 47-70 % High NEUT% 85.0 LAB L100.2200 19-41 % Low LY% 7.7 LAB L100.2300 0-10 % Normal MONO% 6.7 LAB L100.2400 0-5 % Normal EO% 0.2 LAB L100.2500 0-1 % Normal BASO% 0.2 LAB L100.2550 0.0-0.9 % Normal IM GRAN % 0.200 Result Comment: IG% - Immature Granulocytes (promyelocytes, myelocytes and metamyelocytes) > 1% indicates that a LEFT SHIFT is Present. LAB L100.2620 2.0-7.7 X10 3/uL High Absolute Neut 14.1 LAB L100.2720 0.83-4.51 X10 3/ul Normal Absolute Lymph 1.28 Performed By: #### L100.0100 #### [facility] Laboratory [address] [facility]. [place], [place], [address] BASIC METABOLIC Collected: 08/01/2018 Status: F Source: [place] PROFILE (BMP) 1:18 PM [facility] [place] TYPE CODE TESTS RESULT OUT OF RANGE REFERENCE UNITS LAB L501.0100 74-106 mg/dL Normal GLU 96 Result Comment: Please note revised GLUCOSE reference range effective 2017. LAB L501.1000 7-18 mg/dL High BUN 25 LAB L501.1100 0.70-1.30 mg/dL High CREAT,SERUM 5.96 Result Comment: The validity of the calculated GFR AND GFRAA in patients over 70 years has not been determined. Clinical correlation is essential. LAB L501.1110 >60 mL/min Low EST GFR 11 Result Comment: Non- GFR Calc LAB L501.1115 >60 mL/min Low EST GFR - AA 13 Result Comment: GFR Calc LAB L501.1255 ml/min Normal Estimated CRCL 14.29 LAB L501.1300 10-20 RATIO Low BUN/CRE 4.2 LAB L501.2200 8.5-10 mg/dL Low .1 CA 8.4 LAB L501.5300 136-14 mmol/L Normal 5 NA 137 LAB L501.5600 3.5-5. mmol/L Normal 1 K 3.6 LAB L501.5900 98-107 mmol/L Normal CL 98 LAB L501.6100 21.0-3 mmol/L Normal 2.0 CO2 29.0 LAB L501.6200 5-15 Normal GAP 10 Performed By: #### L500.2500 #### [facility] Laboratory [address] [place], [address] BNP,B-TYPE NATRIURETIC Collected: 08/01/2018 Status: F Source: [place] PEPTIDE 1:18 PM [facility] Order Comment: Comments: ok to add on TYPE CODE TESTS RESULT OUT OF RANGE REFERENCE UNITS LAB L503.6620 0-100 pg/mL High B-TYPE 644.8 LUIS PEP Performed By: #### L503.6620 #### [facility] Laboratory [address] [place], [address] CHEST PA AND LATERAL Observed: 08/01/2018 Status: F Source: E[place]ER[place]Z 12:59 PM [facility] Imaging Services [address] [place] [address] Chest PA and Lateral MR#: [id number] Acct: [id number] Name: ROBERT MCCRARY Rep #: [id number] : 1960 M 58 From: Godwin Palmer MD PCP: Abran Reveles MD Status: REG ER Study: Chest PA and Lateral Date of Exam: 08/01/18 Exam# [id number] Ordering Dr: Liam Blackmon DO STUDY: X-RAY CHEST REASON FOR EXAM: Male, 58 years old. Cough. TECHNIQUE: PA and lateral views of the chest. COMPARISON: Comparison is made with prior study dated January 14, 2018. FINDINGS: A right sided double catheter is seen with the tip at the junction of the superior vena cava and right atrium. Degenerative bilateral airspace disease. This may represent either pulmonary edema or infection. Radiographic follow-up is recommended. There is no demonstrated pleural abnormality. Normal size heart. Normal mediastinum and kieran. Normal visualized pulmonary arteries. Normal visualized aortic arch and descending thoracic aorta. Normal visualized thoracic spine. Normal visualized ribs, clavicles, and shoulders. There is no demonstrated abnormality of the visualized soft tissue structures of the upper abdomen. RAD/Chest PA and Lateral IMPRESSION: Bilateral airspace disease suggestive of pulmonary edema. Infection should be ruled out if clinically indicated. Electronically Signed: Godwin Palmer MD at 13:47 EDT Tel [phone], Service support , CC: Liam Blackmon DO; Abran Reveles MD Manager Mountain: Signed STOOL Observed: 07/11/2018 Status: F Source: [place] LACTOFERRIN/WBC 9:57 AM [facility] Stool Lacto/WBC Normal Reference Range = Negative Fecal WBC Lactoferrin Negative: No Fecal WBC Lactoferrin present Performed By: #### M100.0605, M100.637 #### [facility] Laboratory [facility] [place], [address] Observed: 07/11/2018 Status: F Source: [place] ENTERIC PATHOGEN 9:57 AM [facility] [place] [facility]OOL REPOSITORY EP PANEL STOOL Normal Reference Range = Not Detected Not detected for Campylobacter group, Salmonella species, Shigella species, Vibrio Group, Yersinia enterocolitica, EHEC (Shiga Toxin 1, Shiga Toxin 2), Norovirus Gl/Gll, and Rotavirus A. Other common stool pathogens are not detected on this panel include: Aeromonas/Plesiomonas or parasites. Order testing for these organisms separately if suspected. This is an amplified DNA test which makes it both specific and sensitive. CAMPYLOBACTER Not Detected Salmonella Not Detected Shigella sp. Not Detected Shiga Toxin Not Detected Yersinia Not Detected VIBRIO Not Detected Norovirus Not Detected Rotavirus Not Detected Performed By: #### M100.0605, M100.637 #### [facility] [address] [place], [address] SMALL BOWEL SERIES Observed: 07/08/2018 Status: F Source: [facility] 8:18 AM [facility] Imaging Services [address] [place] [address] Small Bowel Series Only MR#: [id number] Acct: [id number] Name: ROBERT MCCRARY Rep #: [id number] : 1960 M 58 From: Godwin Palmer MD PCP: Abran Reveles MD Status: REG CLI Study: Small Bowel Series Only Date of Exam: 07/08/18 Exam# [id number] Ordering Dr: Pedro Walker MD STUDY: GASTROGRAFIN SMALL BOWEL FOLLOW-THROUGH EXAMINATION. REASON FOR EXAM: Male, 58 years [address] abnormal CT scan of the abdomen suggestive of a small bowel enteritis. FLUOROSCOPY TIME (if supplied): (0:30) minutes/seconds TECHNIQUE: The patient ingested Gastrografin. A small bowel follow-through examination was then performed. COMPARISON: None. FINDINGS: A software performance engineer film was obtained. The gas pattern is unremarkable. The patient ingested the Gastrografin. A small bowel follow-through examination was then performed. There is evidence of the diffuse thickening of the mucosal pattern involving the jejunum. Enteritis should be ruled out. This extends into the region of the ileum. The distal ileum is unremarkable. RAD/Small Bowel Series Only IMPRESSION: Mucosal fold thickening of the jejunum and the ileum as described suggestive of enteritis. Electronically Signed: Godwin Palmer MD at 12:25 EDT Tel [phone], Service support , CC: Abran Reveles MD; Pedro Walker MD Manager Mountain: Signed SURGERY VISIT REPORT Observed: 07/04/2018 Status: F Source: E[place] 4:37 PM [facility] [address] [place] [address] OFFICE VISIT Date of Service: 07/04/18 MR#: [id number] Acct: [id number] Name: ROBERT MCCRARY Rep #: [id number] : 1960 Provider: Pedro Walker MD Age/Sex: 58/M Location: [facility] Status: Signed Intake Vital Signs07/04/18 Height 5 ft 9 in 07/04/18 Weight: 184 lb 2 oz 07/04/18 Body Mass Index (BMI) 27.1 07/04/18 Blood Pressure 153/71 Intake Visit Reasons: AV FISTULA CREATION 05/15 Chief Complaint: mid abd pain/ bloating 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 Is patient in pain?: Yes Allergies No Known Allergies Allergy (Verified 07/04/18 12:50) Medications Levothyroxine [Synthroid] 150 mcg PO QHS 10/28/15 [History Confirmed 07/04/18] Simvastatin [Zocor] 20 mg PO QHS 10/28/15 [History Confirmed 07/04/18] Citalopram Hydrobromide [Citalopram HBr] 40 mg PO QHS 01/03/18 [History Confirmed 07/04/18] Sevelamer Carbonate [Renvela] 800 mg PO TID #90 tab 01/08/18 [Rx Confirmed 07/04/18] Ergocalciferol [Vitamin D] 50,000 unit PO Q7D 01/21/18 [History Confirmed 07/04/18] Amlodipine [Norvasc] 10 mg PO QHS 05/08/18 [History Confirmed 07/04/18] hydrALAZINE [Apresoline] 25 mg PO TID 05/08/18 [History Confirmed 07/04/18] PFSH Medical History Chronic renal insufficiency, stage V (Acute) ELMO (acute kidney injury) (Acute) Hyperkalemia (Acute) Hyperlipidemia (Chronic) Hypothyroidism (Chronic) Hypertension (Chronic) Type II diabetes mellitus (Chronic) Community acquired pneumonia (Acute) Surgical History H/O hernia repair (Acute) Presence of surgically created arteriovenous shunt for hemodialysis (Acute) S/P nasal surgery (Acute) Family History Father No problems noted. Social History Smoking Status: Never smoker alcohol intake: never HPI HPI HPI: ROBERT MCCRARY, is a 58 M who presents to the office today for urgent surgical consultation regarding abdominal pain and abnormal CT scan. This is a completely separate and unrelated to his recent left forearm radiocephalic arteriovenous fistula creation for hemodialysis. The patient states that for 3-4 months he has had problems with what he describes as a queasy stomach. Over the past 2 weeks he has had significant abdominal pain and cramping. He complains of bloating increased gas and nausea mostly in the mid abdomen. He has had a known history of gallstones. Because of severe abdominal pain on July 01, 2018 he presented to the [facility]. Hepatomegaly multiple gallstones normal spleen and pancreas identified. The stomach was normal. There is a segment of distal small bowel demonstrating extensive circumferential wall thickening and distention now measuring 3.7 cm in diameter. The findings suggest small bowel enteritis. The colon is normal. There is interval progression of diffuse fatty stranding involving the mesentery. There is diffuse mesenteric adenopathy with the largest lymph node cluster seen on the left on image 78 measuring 3.4 x 2.1 cm. There is progressing retroperitoneal adenopathy with the largest lymph node on the left measuring 2.6 x 1.3 cm diameter. This was compared to a previous examination of May 31, 2018. For purposes of screening he had undergone on June 24, 2018 a colonoscopy. He had never had a previous screening colonoscopy and this exam was normal. Going back to November 19, 2012 the patient had an incarcerated umbilical hernia repair with incarcerated omentum and a 2 cm defect. A proceed ventral patch by Ethicon was placed by Dr. Barry Fuentes. Laboratory July 01, 2018 demonstrates a white count of 15.3 with hemoglobin 9.5 hematocrit 30.6 with a count 351,000. 76% neutrophils 13% lymphocytes. Apparently he has had a mild leukocytosis dating back to January of undetermined etiology. His recent BUN was 25 and creatinine 4.77 consistent with his renal failure. His lactic acid level was 0.7 which was normal. Liver function tests were normal. The patient is referred for surgical consultation regarding his escalating acute on chronic component of abdominal pain abnormal small bowel and retroperitoneal adenopathy. The patient is referred by Dr. NEYDA Reveles and a written copy of my surgical consult recommendations will be returned to him ROS General General: Yes weight change, appetite and fatigue; no colon cancer, breast cancer or weakness HEENT HEENT: No difficulty swallowing, eye injury, eye surgery, swollen glands or hoarseness Endo Endocrine: Yes thyroid disease and diabetes mellitus; no thyroid cancer, Hair loss, heat intolerance or cold intolerance Musc Musculoskeletal: No back problems, arthritis, rheumatoid arthritis, gout or joint pain Cardio Cardiovascular: Yes high blood pressure; no murmur, pacemaker, heart disease, atrial fibrillation, heart attack, heart stent, palpitations, shortness of breat with exertion or chest pain Psych Psychiatric: Yes depression; no anxiety or hearing voices Resp Respiratory: No shortness of breath, No sleep apnea, No cough, No COPD, No asthma, No emphysema, No wheezing Gastro Gastrointestinal: Yes abdominal pain, Yes nausea or vomiting, Yes diarrhea, No constipation, No blood in stool, No acid reflux, No hemorrhoids, No ulcers, Yes gallbladder problem, No black,tarry stools Adrian Hematologic: No blood thinners, No blood disorders, No bleeding, No anemia, No blood clots Neuro Neurologic: No weakness Exam Const General: cooperative, no acute distress Nutritional Appearance: average body habitus Orientation: alert, awake [facility] Head: normal to inspection Eyes General: appearance normal, both eyes and all related structures Resp Effort AND Inspection: normal respiratory effort Auscultation: clear to auscultation bilaterally Cardio Rate: regular rate Rhythm: regular rhythm Heart Sounds: no murmurs GI Inspection: normal to inspection Palpation: soft, no hepatosplenomegaly Other: Occasion tinkles of bowel sounds. Not grossly distended. No focal tenderness Other: No gross inguinal defects Neuro Cranial Nerves: CN's II-XI intact bilaterally Extrem General: no clubbing, cyanosis or edema Psych Affect: normal affect Assessment AND Plan Problems 1. Lymphadenopathy R59.1 2. Enteritis K52.9 Plan Etiology to this patient's abdominal pain and markedly abnormal distal small bowel with thickening of the bowel wall and adenopathy is not determined. The patient states that during his ER visit he was noted to be Hemoccult positive. Recommend a CRP and a ESR. I recommend a non-barium containing small bowel follow-through to try to get a better assessment of the enteritis. How the small bowel then correlates with the more diffuse retroperitoneal adenopathy is not clear. I would not have easy access to sample the adenopathy nor a clear localizing technique. Although the patient has a mild leukocytosis is not clear that this represents a infectious etiology though it may be helpful to involve infectious disease. Not clear to me whether this represents inflammatory bowel disease but that does not correlate well with the adenopathy. At this very moment the patient does not have an acute surgical abdomen. We will pursue with the above testing to try to further assist with diagnosis. Cc: Dr. NEYDA Walker M.D., F.A.C.S. Orders Orders: Coding Level of Care Code Comprehensive,moderate Diagnoses Lymphadenopathy R59.1 Enteritis K52.9 Time Spent (min) 50 07/04/18 1637 <Electronically signed by Pedro Walker MD> Date Pedro Walker MD Cosigner Signature: Date (if applicable) CC: Abran Reveles MD ERYTHROCYTE SED RATE Collected: 07/04/2018 Status: F Source: [place] 1:25 PM [facility] TYPE CODE TESTS RESULT OUT OF RANGE REFERENCE UNITS LAB L102.0000 0-20 mm/hr High SED RATE 79 Performed By: #### L101.9900, L501.6710 #### [facility] Laboratory [address] [place], [place], [address] CRP Collected: 07/04/2018 Status: F Source: [place] 1:25 PM [facility] TYPE CODE TESTS RESULT OUT OF RANGE REFERENCE UNITS LAB L501.6710 0.0-3.0 mg/L High 98.00 C-REACTIVE PROT Result Comment: C-Reactive Protein (CRP) provides useful information for the diagnosis, therapy and monitoring of inflammatory processes and associated diseases. For the evaluation of Relative Risk for Cardiovascular Disease, a High Sensitivity CRP (HSCRP) should be ordered. Performed By: #### L101.9900, L501.6710 #### [facility] [address] [place], [address] SURGERY VISIT REPORT Observed: 07/03/2018 Status: F Source: [place] 3:28 PM [facility] [address] [place] [address] OFFICE VISIT Date of Service: 07/03/18 MR#: [id number] Acct: [id number] Name: ROBERT MCCRARY Rep #: [id number] : 1960 Provider: Tamera Gimenez PA-C Age/Sex: 58/M Location: [facility] Status: Signed Intake Intake Visit Reasons: AV FISTULA CREATION 05/15 Chief Complaint: discuss fistula 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 Is patient in pain?: Yes (abdominal pain) Allergies No Known Allergies Allergy (Verified 07/03/18 13:07) Medications Levothyroxine [Synthroid] 150 mcg PO QHS 10/28/15 [History Confirmed 07/03/18] Simvastatin [Zocor] 20 mg PO QHS 10/28/15 [History Confirmed 07/03/18] Citalopram Hydrobromide [Citalopram HBr] 40 mg PO QHS 01/03/18 [History Confirmed 07/03/18] Sevelamer Carbonate [Renvela] 800 mg PO TID #90 tab 01/08/18 [Rx Confirmed 07/03/18] Ergocalciferol [Vitamin D] 50,000 unit PO Q7D 01/21/18 [History Confirmed 07/03/18] Amlodipine [Norvasc] 10 mg PO QHS 05/08/18 [History Confirmed 07/03/18] hydrALAZINE [Apresoline] 25 mg PO TID 05/08/18 [History Confirmed 07/03/18] PFSH Medical History Chronic renal insufficiency, stage V (Acute) ELMO (acute kidney injury) (Acute) Hyperkalemia (Acute) Hyperlipidemia (Chronic) Hypothyroidism (Chronic) Hypertension (Chronic) Type II diabetes mellitus (Chronic) Community acquired pneumonia (Acute) Surgical History H/O hernia repair (Acute) Presence of surgically created arteriovenous shunt for hemodialysis (Acute) S/P nasal surgery (Acute) Family History Father No problems noted. Social History Smoking Status: Never smoker alcohol intake: never HPI HPI HPI: ROBERT MCCRARY, is a 58 M I am following for chronic renal failure. Dr. Walker performed left forearm radiocephalic arteriovenous fistula creation on 05/15/18. Patient tolerated the procedure well. Patient denies incisional pain/discomfort. He denies numbness/tingling of his hand and fingers. He is currently on dialysis. Patient is starting the process for renal transplant at [facility]. Patient returns for a follow-up. He recently had a colonoscopy with Dr. Walker last week. Patient noted procedure went okay. He also notes he was in the ED on 07/01 with abdominal pain, nausea and vomiting. Patient was recommended to follow-up with Dr. Walker for the abdominal pain. Patient feels he may have a recurrent hernia at the umbilicus which is where his pain/discomfort is. Patient notes his fistula feels great. Exam Extrem Other: left forearm AV fistula- excellent pulse, bruit and thrill. Warm hand. Equal metal sash setter strength Assessment AND Plan Problems 1. Chronic renal insufficiency, stage V N18.5 Plan - Fistula is ready for use. My note will be faxed to the dialysis center. - Dr. Wakler was not present when patient was evaluated in the office. I only examined patient's fistula. I have scheduled the patient an appointment for the abdominal pain with Dr. Walker for tomorrow. I am concerned the patient may have a recurrent umbilical hernia. Patient preferred to be evaluated by Dr. Walker for the abdominal pain. He notes his last umbilical hernia repair was by Dr. Fuentes in 2011. I have provided Dr. Walker a copy of this operative report. Coding Level of Care Code Global Post Op Diagnoses Chronic renal insufficiency, stage V N18.5 07/03/18 1528 <Electronically signed by Tamera Gimenez PA-C> Date Tamera Gimenez PA-C Cosigner Signature: Date (if applicable) CC: Abran Reveles MD DISCHARGE INSTRUCTION Observed: 07/01/2018 Status: F Source: [place] 11:58 PM [facility] Medical Records Department [address] [place] [address] Discharge Instruction 07/01/182356 MR#: [id number] Acct: [id number] Name: ROBERT MCCRARY Rep #: [id number] : 1960 58 From: Duglas Singh DO PCP: Abran Reveles MD Status: REG ER ED Disposition - Plan for ED Patient: Chief Complaint: Abd Pain Instructions: ED Abdominal Pain Unkn Cause Male Referrals: Abran Reveles MD [Primary Care Provider] - Pedro Walker MD [STAFF PHYSICIAN] - 3-5 Days What to do if you have Problems For any increased pain, shortness of breath, bleeding, nausea or vomiting, chest pain, or any unexpected problems, contact your Primary Care Provider. Call [facility] ([phone]) or report to the closest Emergency Room. Call 911 if necessary. 07/01/18 368 <Electronically signed by Duglas Singh DO> Date Duglas Singh DO Cosigner Signature (If Indicated): Date CC: Abran Reveles MD EMERGENCY DEPARTMENT Observed: 07/01/2018 Status: F Source: [place] SUMMARY 11:57 PM [facility] Medical Records Department [address] [place] [address] Emergency Department Summary 07/01/18 2352 MR#: [id number] Acct: [id number] Name: ROBERT MCCRARY Rep #: [id number] : 1960 58 From: Duglas Singh DO PCP: Abran Reveles MD Status: REG ER - ER Visit Summary Date of Service: 07/01/18 Chief Complaint: [Abdominal pain] History of Present Illness: The patient is a 58 M [presents the emergency department complaint of abdominal pain for more than 5 days. Patient states that he had a colonoscopy about a week ago that was routine by Dr. Pedro Walker. Patient states that he had an umbilical hernia repair 7 years ago with mesh and he recently noticed some swelling and edema around the area of where his hernia repair was on his abdomen lower abdomen. Patient has had some nausea but no vomiting. Food does not seem to affect the pain. He denies any diarrhea although he states his stools have been somewhat loose over last couple of weeks. Patient did take some Pepto-Bismol couple days ago for some stomach upset and then today noted that he had some blackish stool. Patient has a history of diabetes, hypertension, kidney failure and is on dialysis.] Physical Examination: [HEENT-PERRLA, EOMI. Cranial nerves II through XII grossly intact. TMs clear. Mucous membranes moist. No adenopathy. Cardiovascular-regular rate and rhythm without murmur or ectopy Lungs-clear to auscultation, chest wall stable without crepitus or subcu emphysema Abdomen-normoactive bowel sounds, soft. Patient does have some firm indurated tissue periumbilically but slightly tender to palpation without evidence of cellulitis. No hernia palpated. There is no rebound, rigidity, or perineal signs noted. Rectal exam-no masses palpated. Patient had brown stool that was Hemoccult positive. Extremities-intact 4, normal range of motion, normal pulses, atraumatic] Test Results: [CBC with differential obtained showed a slightly elevated white blood cell count of 15.3, hemoglobin 9.5, hematocrit 31, platelets 351. Chemistries showed a sodium 140, potassium 3.1, chloride 102, CO2 32, BUN 25, creatinine 4.77. LFTs were normal. Lipase normal. Hemoccult again was positive. CT scan of the abdomen pelvis with p.o. contrast was obtained and showed progressing pericardial effusion. Hepatomegaly. Multiple gallstones. Distal small bowel distention and wall thickening likely related to enteritis. Interval progression of mesenteric adenopathy and mesenteric fatty stranding mesenteric adenitis suspected. Progressing retroperitoneal adenopathy. Diffuse induration of the anterior abdominal wall could be related to anasarca but correlate clinically for cellulitis. Bilateral L5-S1 pars interarticularis defects with grade 1 anterior listhesis and severe bilateral foraminal stenosis.] Emergency Department Course and Treatment: [Patient did not want anything for pain in the department] Treatment Plan: [This point etiology of patient's abdominal discomfort is unclear. Patient tells me he has had this discomfort for quite some time. I did ask patient to follow-up with Dr. Pedro Walker of general surgery whom he has seen in the past.] Disposition: [Discharged home in stable condition] Impression: [Abdominal pain-etiology uncertain] This note was generated with Electronifie dictation software. It may contain incorrect words, spelling, and punctuation that were not noted in review of the chart prior to signing ED Disposition - Plan for ED Patient: Chief Complaint: Abd Pain Referrals: Abran Reveles MD [Primary Care Provider] - What to do if you have Problems For any increased pain, shortness of breath, bleeding, nausea or vomiting, chest pain, or any unexpected problems, contact your Primary Care Provider. Call [facility] ([phone]) or report to the closest Emergency Room. Call 911 if necessary. 07/01/18 8596 <Electronically signed by Duglas Singh DO> Date Duglas Singh DO Cosigner Signature (If Indicated): Date CC: Abran Reveles MD Observed: 07/01/2018 Status: F Source: [place] STOOL OCCULT BLOOD 10:25 PM [facility] Order Date: 07/01/18 STOB iFOB Occult Blood Positive ORGANISM 1: OCCULT BLOOD POSITIVE Performed By: #### M100.7900 #### [facility] [place], [address] CBC W/DIFF, AUTOMATED Collected: 07/01/2018 Status: F Source: [place] 9:10 PM [facility] [place] TYPE CODE TESTS RESULT OUT OF RANGE REFERENCE UNITS LAB L100.1000 4.4-11.0 K/mm3 High WBC 15.3 LAB L100.1200 4.6-6.2 M/mm3 Low RBC 3.56 LAB L100.1300 13.0-16.5 g/dl Low HGB 9.5 LAB L100.1400 40-54 % Low HCT 30.6 LAB L100.1500 80-94 fL Normal MCV 86.0 LAB L100.1600 27.0-32.0 pg Low MCH 26.7 LAB L100.1700 32-36 g/gl Low MCHC 31.0 LAB L100.1810 11.6-14.6 % High RDW CV 15.4 LAB L100.1820 35.1-43.9 fl High RDW SD 48.2 LAB L100.1900 150-450 K/mm3 Normal PLT 351 LAB L100.2000 6.2-12.0 fl Normal MPV 8.7 LAB L100.2100 47-70 % High NEUT% 76.5 LAB L100.2200 19-41 % Low LY% 13.3 LAB L100.2300 0-10 % Normal MONO% 7.7 LAB L100.2400 0-5 % Normal EO% 2.2 LAB L100.2500 0-1 % Normal BASO% 0.2 LAB L100.2550 0.0-0.9 % Normal IM GRAN % 0.100 Result Comment: IG% - Immature Granulocytes (promyelocytes, myelocytes and metamyelocytes) > 1% indicates that a LEFT SHIFT is Present. LAB L100.2620 2.0-7.7 X10 3/uL High Absolute Neut 11.7 LAB L100.2720 0.83-4.51 X10 3/ul Normal Absolute Lymph 2.04 Performed By: #### L100.0100 #### [facility] [address] [place], [address] COMPREHENSIVE METABOLIC Collected: 07/01/2018 Status: F Source: [place] [facility] 9:10 PM [facility] [place] [facility] TYPE CODE TESTS RESULT OUT OF RANGE REFERENCE UNITS LAB L501.0100 74-106 mg/dL Normal GLU 105 Result Comment: Fasting Glucose result from 100 to 125 mg/dL suggests IMPAIRED HOMEOSTASIS per A.D.A. criteria. Please note revised GLUCOSE reference range effective 2017. LAB L501.1000 7-18 mg/dL High BUN 25 LAB L501.1100 0.70-1.30 mg/dL High CREAT,SERUM 4.77 Result Comment: The validity of the calculated GFR AND GFRAA in patients over 70 years has not been determined. Clinical correlation is essential. LAB L501.1110 >60 mL/min Low EST GFR 14 Result Comment: Non- GFR Calc LAB L501.1115 >60 mL/min Low EST GFR - AA 16 Result Comment: GFR Calc LAB L501.1255 ml/min Normal Estimated CRCL 17.29 LAB L501.1300 10-20 RATIO Low BUN/CRE 5.2 LAB L501.1500 6.4-8. g/dL Normal 2 T PROT 6.5 LAB L501.1800 3.2-5. g/dL Low 0 ALB 2.1 LAB L501.1950 2.2-4. g/dL High 2 GLOB 4.4 LAB L501.2000 0.9-2. RATIO Low 4 A/G 0.5 LAB L501.2200 8.5-10 mg/dL Low .1 CA 7.6 LAB L501.4100 15-37 U/L Low AST 11 LAB L501.4305 45-117 U/L Normal ALK P 48 LAB L501.4405 16-61 U/L Low ALT 12 LAB L501.4600 0.20-1 mg/dL Normal .00 T BILI 0.20 LAB L501.5300 136-14 mmol/L Normal 5 NA 140 LAB L501.5600 3.5-5. mmol/L Low 1 K 3.1 LAB L501.5900 98-107 mmol/L Normal CL 102 LAB L501.6100 21.0-3 mmol/L Normal 2.0 CO2 32.0 LAB L501.6200 5-15 Normal GAP 6 Performed By: #### L500.4050, L501.2450 #### [facility] [address] [place], [address] LIPASE Collected: 07/01/2018 Status: F Source: [place] 9:10 PM [facility] TYPE CODE TESTS RESULT OUT OF RANGE REFERENCE UNITS LAB L501.2450 73-393 U/L Normal LIPASE 229 Performed By: #### L500.4050, L501.2450 #### [facility] [address] [place], [address] ABDOMEN/PEL W ORAL CONT Observed: 07/01/2018 Status: F Source: [place] ONLY 8:56 PM [facility] Imaging Services [address] [place] [address] Abdomen/Pel W ORAL Cont Only MR#: [id number] Acct: [id number] Name: ROBERT MCCRARY Rep #: [id number] : 1960 M 58 From: Alberto Vicente MD PCP: Abran Reveles MD Status: REG ER Study: Abdomen/Pel W ORAL Cont Only Date of Exam: 07/01/18 Exam# [id number] Ordering Dr: Duglas Singh DO STUDY: CT ABDOMEN AND PELVIS WITHOUT CONTRAST REASON FOR EXAM: Male, 58 years old. LOW ABDOMINAL PAIN AND SWELLING,ELEVATED WBC,PT HAD COLONOSCOPY LAST WEEK,BLACK STOOLS NOW RADIATION DOSAGE (If Supplied By Facility): CTDIvol = ( 13.24 ) mGy, DLP = ( 727.61 ) mGycm TECHNIQUE: Transaxial images were obtained from the dome of the diaphragm to the symphysis pubis with oral contrast, and without intravenous contrast. Sagittal and coronal images were reconstructed. Individualized dose optimization techniques were used for this CT. COMPARISON: 05/31/2018 FINDINGS: The visualized lung bases are unremarkable. Progressing small pericardial effusion, now measuring 7 mm in depth. Hepatomegaly. Multiple gallstones. Normal spleen. Normal pancreas. Normal bilateral adrenal glands. Stable appearance of the kidneys. Normal visualized stomach. A segment of distal small bowel now demonstrates extensive and circumferential wall thickening and distention, measuring 3.7 cm in diameter. Findings suggest small bowel enteritis. Normal colon. The appendix is visualized and appears normal. Interval progression of diffuse fatty stranding involving the mesentery. Interval progression of diffuse mesenteric adenopathy, with largest node cluster seen on the left on image 78 of series 2 measuring 3.4 x 2.1 cm. There is diffuse atherosclerotic calcification of the abdominal aorta, without a demonstrated aneurysm. Normal inferior vena cava. Progressing retroperitoneal adenopathy, with largest node on the left at the level of the left kidney now measuring 2.6 x 1.3 cm. Normal urinary bladder. There are prostatic calcifications. Diffuse induration of the anterior abdominal wall could be related to anasarca, but correlate clinically for cellulitis. Bilateral L5-S1 pars interarticularis defects with grade 1 anterolisthesis and severe bilateral foraminal stenoses. CT/Abdomen/Pel W ORAL Cont Only IMPRESSION: Progressing pericardial effusion. Hepatomegaly. Multiple gallstones. Distal small bowel distention and wall thickening, likely related to enteritis. Interval progression of mesenteric adenopathy and mesenteric fatty stranding. Mesenteric adenitis is suspected. Progressing retroperitoneal adenopathy. Diffuse induration of the anterior abdominal wall could be related to anasarca, but correlate clinically for cellulitis. Bilateral L5-S1 pars interarticularis defects with grade 1 anterolisthesis and severe bilateral foraminal stenoses. Electronically Signed: Alberto Vicente MD at 23:10 EDT Tel , Service support , CC: Abran Reveles MD; Duglas Singh DO Manager [place]: Signed OPERATIVE REPORT Observed: 06/24/2018 Status: F Source: [place] 9:49 AM [facility] Medical Records Department [address] [place] [address] Operative Report 06/24/18 0946 MR#: [id number] Acct: [id number] Name: ROBERT MCCRARY Rep #: [id number] : 1960 58 From: Pedro Walker MD PCP: Abran Reveles MD Status: REG KSC Y Location: [place] [address] Problem List (1) Screening for intestinal cancer Status: Acute Report of Operation Date of Procedure: 06/24/18 Pre-Operative Diagnosis: Screening for intestinal cancer Post-Operative Diagnosis: Internal and external hemorrhoids Surgery/Procedure Performed:: Colonoscopy Description of Surgical Findings:: Timeout and informed consent was obtained. 58-year-old gentleman was taken to the endoscopy suite. He was placed in the left lateral decubitus position. Throughout the procedure in aliquots he received a total of 100 mcg of fentanyl and 3.5 mg of Versed is intravenous sedation. Digital rectal exam demonstrated a 2+ smooth prostate. Internal and external hemorrhoids noted with some exuberant internal hemorrhoidal component. No active bleeding. Flexible colonoscope inserted the rectum advanced through a slightly tortuous sigmoid colon the scope was advanced through the descending transverse and ascending colon. The patient was placed supine and transabdominal pressure was required to get the scope to go to the cecum. The cecum ileocecal valve area was nicely achieved. The appendiceal orifice nicely inspected. Bowel prep was good. There was liquid stool but that could be aspirated. The scope was carefully withdrawn from the cecum ascending colon transverse colon descending colon and sigmoid colon without acute abnormality. The scope was retroflexed within the rectum and the exuberant internal hemorrhoidal polypoid stalks were noted. No active bleeding. Excess fluid and air was aspirated free the procedure was completed with the patient tolerating well. Impression Grade 2-3 internal hemorrhoids with prominent internal hemorrhoidal component. Otherwise normal colonoscopy. The patient has not had a previous screening exam. Next screening examination recommended in 10 years. Medications were given at 0927. The procedure was started 0929. The cecum was reached at 0935. The procedure was completed at 0942. Cc: Dr. NEYDA Walker M.D., F.A.C.S. Type of Anesthesia:: IV Sedation 06/24/18 0949 <Electronically signed by Pedro Walker MD> Date Pedro Walker MD CC: Abran Reveles MD; Pedro Walker MD Signed BEDSIDE GLUCOSE Collected: 06/24/2018 Status: F Source: [place] 8:12 AM [facility] TYPE CODE TESTS RESULT OUT OF RANGE REFERENCE UNITS LAB L501.080 70-110 mg/dL Normal BEDSIDE GLU 97 Result Comment: MANAGEMENT OF PATIENT CARE PER NURSING PROTOCOL Performed By: #### L501.080 #### [facility] Point of Care [address] [place] [address] SURGERY VISIT REPORT Observed: 06/12/2018 Status: F Source: [place] 1:56 PM [facility] [address] [place] [address] OFFICE VISIT Date of Service: 06/12/18 MR#: [id number] Acct: [id number] Name: ROBERT MCCRARY Rep #: [id number] : 1960 Provider: Tamera Gimenez PA-C Age/Sex: 58/M Location: [facility] Status: Signed Intake Vital Signs06/12/18 Height 5 ft 10 in 06/12/18 Weight: 192 lb Intake Visit Reasons: AV FISTULA CREATION 05/15 Chief Complaint: discuss fistula 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 Is patient in pain?: No Allergies No Known Allergies Allergy (Verified 06/12/18 12:57) Medications Levothyroxine [Synthroid] 150 mcg PO QHS 10/28/15 [History Confirmed 06/12/18] Simvastatin [Zocor] 20 mg PO QHS 10/28/15 [History Confirmed 06/12/18] Citalopram Hydrobromide [Citalopram HBr] 40 mg PO QHS 01/03/18 [History Confirmed 06/12/18] Sevelamer Carbonate [Renvela] 800 mg PO TID #90 tab 01/08/18 [Rx Confirmed 06/12/18] Ergocalciferol [Vitamin D] 50,000 unit PO Q7D 01/21/18 [History Confirmed 06/12/18] Amlodipine [Norvasc] 10 mg PO QHS 05/08/18 [History Confirmed 06/12/18] hydrALAZINE [Apresoline] 25 mg PO TID 05/08/18 [History Confirmed 06/12/18] PFSH Medical History Chronic renal insufficiency, stage V (Acute) ELMO (acute kidney injury) (Acute) Hyperkalemia (Acute) Hyperlipidemia (Chronic) Hypothyroidism (Chronic) Hypertension (Chronic) Type II diabetes mellitus (Chronic) Community acquired pneumonia (Acute) Surgical History H/O hernia repair (Acute) Presence of surgically created arteriovenous shunt for hemodialysis (Acute) S/P nasal surgery (Acute) Family History Father No problems noted. Social History Smoking Status: Never smoker alcohol intake: never HPI HPI HPI: ROBERT MCCRARY, is a 58 M I am following for chronic renal failure. Dr. Walker performed left forearm radiocephalic arteriovenous fistula creation on 05/15/18. Patient tolerated the procedure well. Patient denies incisional pain/discomfort. He denies numbness/tingling of his hand and fingers. He is currently on dialysis. Patient is starting the process for renal transplant at [facility]. He has an appointment on 07/02. Patient is also inquiring about a colonoscopy. Patient notes his father had colon cancer. He denies previous colonoscopy. He notes intermittent constipation. He denies melena, bright red blood per rectum and abdominal pain. ROS General General: Yes fatigue; no weight change, appetite, colon cancer, breast cancer or weakness HEENT HEENT: No difficulty swallowing, eye injury, eye surgery, swollen glands or hoarseness Endo Endocrine: Yes thyroid disease and diabetes mellitus; no thyroid cancer, Hair loss, heat intolerance or cold intolerance Musc Musculoskeletal: No back problems, arthritis, rheumatoid arthritis, gout or joint pain Cardio Cardiovascular: Yes high blood pressure; no murmur, pacemaker, heart disease, atrial fibrillation, heart attack, heart stent, palpitations, shortness of breat with exertion or chest pain Psych Psychiatric: Yes depression; no anxiety or hearing voices Resp Respiratory: No shortness of breath, No sleep apnea, No cough, No COPD, No asthma, No emphysema, No wheezing Gastro Gastrointestinal: No abdominal pain, No nausea or vomiting, No diarrhea, No constipation, No blood in stool, No acid reflux, No hemorrhoids, No ulcers, No gallbladder problem, No black,tarry stools [place] Hematologic: No blood thinners, No blood disorders, No bleeding, No anemia, No blood clots Neuro Neurologic: No weakness Exam Const General: cooperative, healthy appearing, comfortable, no acute distress [facility] Head: normal to inspection Eyes General: appearance normal, both eyes and all related structures Neck Neck mass: No Resp Effort AND Inspection: normal respiratory effort Auscultation: clear to auscultation bilaterally Cardio Rate: regular rate Rhythm: regular rhythm Heart Sounds: no murmurs GI Inspection: normal to inspection Palpation: soft Auscultation: normal bowel sounds Skin General: no rashes or lesions noted Neuro General: no focal motor deficits, CN's II-XI intact bilaterally Extrem General: normal to inspection Other: Left forearm AV fistula- incision c/d/i. Good pulse, bruit, and thrill. Psych Appearance: grossly normal Assessment AND Plan Problems 1. Chronic renal insufficiency, stage V N18.5 2. Family history of colon cancer requiring screening colonoscopy Z80.[address] Walker will plan to perform a colonoscopy with possible biopsies. Procedure details, risks and benefits have been explained. Patient has had the opportunity to ask and have questions answered. Patient verbally understands and agrees to proceed with the procedure. Bowel prep instructions have been given to the patient. Continue to perform hand exercises. Follow-up in 3 weeks for the fistula. At that time, fistula may be released. Coding Level of Care Code Global Post Op Diagnoses Chronic renal insufficiency, stage V N18.5 Family history of colon cancer requiring screening colonoscopy Z80.0 Comment Modifier for colonoscopy consult. Not sure how to code this. Eval. for global post-op also 06/12/18 1883 <Electronically signed by Tamera Gimenez PA-C> Date Tamera Ferris Signature: Date (if applicable) CC: EMERGENCY DEPARTMENT Observed: 06/01/2018 Status: F Source: [place] SUMMARY 9:10 AM [facility] Medical Records Department [address] [place] [address] Emergency Department Summary 05/31/18 1515 MR#: [id number] Acct: [id number] Name: ROBERT MCCRARY Rep #: [id number] : 1960 57 From: Adwoa Corado MD PCP: Abran Reveles MD Status: DEP ER - ER Visit Summary Date of Service: 05/31/18 Chief Complaint: [place] urine History of Present Illness: The patient is a 57 M with chronic renal failure on dialysis. He still makes urine. Patient states he has noted pink tinged urine intermittently over the past 5-6 days. On Saturday, 05/27, patient did note left flank pain and states he had difficulty finding a position of comfort. Patient did have a full dialysis run today without difficulty. Past history is otherwise significant for diabetes, hypertension, high cholesterol, and hypothyroidism. Physical Examination: Vital signs are unremarkable. Patient sitting upright in bed in no acute distress. Head and neck examination is normal. Heart is regular rate and rhythm. Lung sounds are clear. Abdomen is soft and nontender. Back examination was no CVA tenderness at this time. Test Results: Urinalysis shows 50-100 RBCs with 0-5 white cells. No overt signs of infection. CT flank shows robust bilateral perinephric stranding, similar to prior study. There may be a punctate stone in the distal left ureter versus artifact. Emergency Department Course and Treatment: Repeat evaluation patient is resting comfortably. With his significant episode of pain a few days ago and blood in the urine with no sign of infection, I am certainly suspicious that he likely has a small kidney stone. This was discussed with the patient. He will continue to monitor his symptoms and return if symptoms worsen. Treatment Plan: [] Disposition: Discharge Impression: Hematuria secondary to punctate left ureter stone This note was generated with Electronifie dictation software. It may contain incorrect words, spelling, and punctuation that were not noted in review of the chart prior to signing ED Disposition - Plan for ED Patient: Disposition: Home or Assisted Living Chief Complaint: Complaint Instructions: ED Stone Renal W Colic Referrals: Abran Reveles MD [Primary Care Provider] - As Needed What to do if you have Problems For any increased pain, shortness of breath, bleeding, nausea or vomiting, chest pain, or any unexpected problems, contact your Primary Care Provider. Call [facility] ([phone]) or report to the closest Emergency Room. Call 911 if necessary. 06/01/18909 <Electronically signed by Adwoa Corado MD> Date Adwoa Corado MD Cosigner Signature (If Indicated): Date CC: Abran Reveles MD DISCHARGE INSTRUCTION Observed: 05/31/2018 Status: F Source: [place] 3:15 PM [facility] Medical Records Department [address] [place] [address] [place] [address] Discharge Instruction 05/31/181514 MR#: [id number] Acct: [id number] Name: ROBERT MCCRARY Rep #: [id number] : 1960 57 From: Adwoa Corado MD PCP: Abran Reveles MD Status: REG ER ED Disposition - Plan for ED Patient: Disposition: Home or Assisted Living Chief Complaint: Complaint Instructions: ED Stone Renal W Colic Referrals: Abran Reveles MD [Primary Care Provider] - As Needed What to do if you have Problems For any increased pain, shortness of breath, bleeding, nausea or vomiting, chest pain, or any unexpected problems, contact your Primary Care Provider. Call [facility] ([phone]) or report to the closest Emergency Room. Call 911 if necessary. 05/31/18 1515 <Electronically signed by Adwoa Corado MD> Date Adwoa Corado MD Cosigner Signature (If Indicated): Date CC: Abran Reveles MD ABDOMEN/PELVIS WITHOUT Observed: 05/31/2018 Status: F Source: EMPERATRIZ CONT 12:35 PM [facility] [place] [facility] Imaging Services [address] [place] [address] Abdomen/Pelvis without Cont MR#: [id number] Acct: [id number] Name: ROBERT MCCRARY Rep #: [id number] : 1960 M 57 From: Farzana Lu MD PCP: Abran Reveles MD Status: REG ER Study: Abdomen/Pelvis without Cont Date of Exam: 05/31/18 Exam# [id number] Ordering Dr: Adwoa Corado MD STUDY: CT ABDOMEN AND PELVIS WITHOUT CONTRAST REASON FOR EXAM: Male, 57 years old. Hematuria at dialysis today hypertension and diabetes RADIATION DOSAGE (If Supplied By Facility): CTDIvol = ( 10.86 ) mGy, DLP = ( 572.70 ) mGycm TECHNIQUE: Transaxial images were obtained from the dome of the diaphragm to the symphysis pubis without oral contrast, and without intravenous contrast. Sagittal and coronal images were reconstructed. Individualized dose optimization techniques were used for this CT. COMPARISON: March 01, 2018 CT scan abdomen and pelvis FINDINGS: There is trace lower lobe atelectasis. The visualized portions of the heart are within normal limits. There is mild hepatic enlargement. There multiple stones within the gallbladder measuring approximately 2 to 3 mm Normal spleen. Normal pancreas. Normal bilateral adrenal glands. There is persistent bilateral perinephric stranding. There is persistent mild left pelviectasis with stranding along the left ureter. There may be a punctate stone in the distal left ureter versus artifact. Is persistent left-sided perinephric stranding and inflammatory inflammation. There is a small hiatal hernia. There are mildly distended loops of small bowel with mild wall thickening. There is focal small bowel wall thickening image #92. There are fluid levels within the colon. There is a nonspecific persistent distended appearance of the appendix with residual contrasting gas. This is similar to the prior study. Aorta is partially calcified. Normal inferior vena cava. There are numerous lymph nodes within the retroperitoneum measuring up to 2.4 cm. There are also atypical appearing lymph nodes within the mid mesentery. Lymph nodes are ranging in size from 5 mm to 2.0 cm. There is minimal mesenteric edema. There is mild wall thickening of the bladder. There are prostatic calcifications. There is edema of the mid periumbilical region similar to prior study. There is diastases of the rectus muscle with bulge of intraperitoneal fat. There are diffuse degenerative changes of the visualized lumbar spine. There is a slight anterolisthesis at L5-S1 with grade 1 spondylolisthesis with spondylolysis. There is moderate to severe neural foramina narrowing and mild central stenosis. There is multilevel facet arthropathy. CT/Abdomen/Pelvis without Cont IMPRESSION: There is bilateral robust perinephric stranding suspicious for infection but consider pyelonephritis with cystitis. Findings are suspicious for focal enteritis. There is abnormal mesenteric and retroperitoneal lymphadenopathy throughout. Consider underlying lymphoproliferative disease including lymphoma leukemia reaction to underlying chronic inflammation in the kidneys and small bowel. Possible punctate stone left ureter versus artifact. Consider mild pelviectasis due to possible obstruction and/or inflammation. Cholelithiasis. Grade 1 spondylolisthesis with spondylolysis L5-S1. Electronically Signed: Farzana Lu MD at 13:40 EDT Tel , Service support , CC: Adwoa Corado MD; Abran Reveles MD Manager [place]: Signed URINALYSIS, COMPLETE Collected: 05/31/2018 Status: F Source: EMPERATRIZ 12:15 PM [facility] [place] Order Comment: COLOR OF URINE MAY AFFECT DIPSTICK RESULTS. How was Urine Obtained? CLEAN CATCH TYPE CODE TESTS RESULT OUT OF RANGE REFERENCE UNITS LAB L400.3000 Yellow COLOR Normal Alexa LAB L400.3050 Clear Normal CLARITY Sl. Cloudy LAB L400.3200 Normal mg/dl High 50 GLUCOSE, UR LAB L400.3300 Negative mg/dL Normal BILIRUBIN URINE Negative LAB L400.3400 Negative mg/dl Normal KETONE UR Negative LAB L400.3465 1.002-1.030 Normal SP.GR. DIPSTX 1.010 LAB L400.3550 5.0 - 8.0 pH UR Normal 8.0 LAB L400.3600 Negative mg/dl High PROT DIPSTX 500 LAB L400.3700 Normal mg/dl Normal UROBILI Normal LAB L400.3750 Negative Normal NITRITE UR Negative LAB L400.3780 Negative /ul High OCCULT BLOOD-UR 250 LAB L400.3800 Negative /ul High LEUK 25 ESTERASE LAB L400.4050 0-5 /hpf WBC Normal 0-5 SEEN LAB L400.4100 0-5 /hpf Normal RBC-UA 50-100 SEEN LAB L400.4150 0-5 /hpf SQUAM Normal EPI 0-5 SEEN LAB L400.4300 None Seen /hpf 0 Normal BACTERIA SEEN LAB L400.4350 <or=2+ /hpf 0 Normal MUCUS, URINE SEEN Performed By: #### L400.0001 #### [facility] [address] [place] [address]. [place], [address] SURGERY VISIT REPORT Observed: 05/22/2018 Status: F Source: PENDLETON 4:06 PM [facility] [place] [facility] [address] [place] [address]. [address] [place] [address] OFFICE VISIT Date of Service: 05/22/18 MR#: [id number] Acct: [id number] Name: ROBERT MCCRARY Rep #: [id number] : 1960 Provider: Tamera Gimenez PA-C Age/Sex: 57/M Location: [facility] Status: Signed Intake Intake Visit Reasons: A V Fistula Creation 05/15 Chief Complaint: discuss fistula 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 Is patient in pain?: No Allergies No Known Allergies Allergy (Verified 05/22/18 13:10) Medications Levothyroxine [Synthroid] 150 mcg PO QHS 10/28/15 [History Confirmed 05/22/18] Simvastatin [Zocor] 20 mg PO QHS 10/28/15 [History Confirmed 05/22/18] Citalopram Hydrobromide [Citalopram HBr] 40 mg PO QHS 01/03/18 [History Confirmed 05/22/18] Sevelamer Carbonate [Renvela] 800 mg PO TID #90 tab 01/08/18 [Rx Confirmed 05/22/18] Ergocalciferol [Vitamin D] 50,000 unit PO Q7D 01/21/18 [History Confirmed 05/22/18] Amlodipine [Norvasc] 10 mg PO QHS 05/08/18 [History Confirmed 05/22/18] hydrALAZINE [Apresoline] 25 mg PO BID 05/08/18 [History Confirmed 05/22/18] Hydrocodone Bitart/Apap 5-325 [Higbee 5MG-325MG] 1 tab PO Q6H PRN PRN 2 Days #5 tab 05/15/18 [Rx Confirmed 05/22/18] PFSH Medical History Chronic renal insufficiency, stage V (Acute) ELMO (acute kidney injury) (Acute) Hyperkalemia (Acute) Hyperlipidemia (Chronic) Hypothyroidism (Chronic) Hypertension (Chronic) Type II diabetes mellitus (Chronic) Community acquired pneumonia (Acute) Surgical History H/O hernia repair (Acute) Presence of surgically created arteriovenous shunt for hemodialysis (Acute) S/P nasal surgery (Acute) Family History Father No problems noted. Social History Smoking Status: Current every day smoker alcohol intake: never HPI HPI HPI: ROBERT MCCRARY, is a 57 M I am following for chronic renal failure. Dr. Walker performed left forearm radiocephalic arteriovenous fistula creation on 05/15/18. Patient tolerated the procedure well. Patient denies incisional pain/discomfort. He denies numbness/tingling of his hand and fingers. He is currently on dialysis. Exam Extrem Other: Left forearm AV fistula- incision c/d/i. Good pulse, bruit, and thrill. Assessment AND Plan Problems 1. Chronic renal insufficiency, stage V N18.5 Plan - Continue to perform hand exercises - Follow-up in 3 weeks Coding Level of Care Code Global Post Op Diagnoses Chronic renal insufficiency, stage V N18.5 05/22/18 1606 <Electronically signed by Tamera Gimenez PA-C> Date Tamera Gimenez PA-C Cosigner Signature: Date (if applicable) CC: Abran Reveles MD CNCO Observed: 05/21/2018 Status: COMPLETED Source: NEAL 12:00 AM [facility] REPOSITORY Letter Text Kidney and Pancreas Transplant Program Pre-Transplant Office [address] [place] [address] , ext. [phone] May 21, 2018 Dear Mr. Robert Mccrary, Thank you for choosing [facility] for your transplant care. Please see the attached schedule for your kidney evaluation. Please ensure that you arrive on time. Patients arriving more than 30 minutes after scheduled time, will be turned away and will need to be rescheduled at a later date. The information marked below will need to be submitted to our pre-transplant office as soon as possible. Please note that the requested testing should be current - within the past 12 months. Please have all of the marked items faxed to our office at [phone]. __X___ Colonoscopy (with pathology results if applicable) - all patients age 50 and older __X___ Dental Clearance - Please have your Dentist complete the enclosed form and return it to our office. Also, if you have had any of the following tests within the past 12 months, please forward the results to our office as soon as possible. EKG Chest X-Ray Echocardiogram Cardiac Stress Test CT of the Abdomen and Pelvis During your evaluation, you will see the following transplant team members: Clinical Radiologist Transplant Physician(s) Transplant Surgeon Guest Relations Officer Independent Producer Pump Station Operator We request that you bring the following with you to your evaluation appointments: - a list of your current medications - your insurance cards - a family member or close friend that acts as a support person/caregiver - a snack or lunch as there may not be an opportunity to go to the cafe - any medication that you may need to take throughout the day At the end of your evaluation appointments, it may be determined that you need additional testing or further consultations. All testing and consults requested by the transplant team will need to be scheduled at a [facility] or main [place]. Please be advised that we cannotmake a determination regarding placing you on the [facility] and [facility]) transplant waiting list until your evaluation and testing are complete. If you are unable to keep any of your scheduled appointments, please give us at least 48 hours notice so that we may attempt to accommodate other patient appointments. Failure to notify us of the need to cancel appointments may result in a delay in rescheduling your evaluation. Please contact us at [phone] or toll-free at , ext. [phone] if you have any questions or if you need to cancel and reschedule your upcoming evaluation appointments. Again, thank you for choosing [facility] for your transplant care. We look forward to assisting you through the kidney transplant evaluation process. Sincerely, The [facility] Transplant Program DISCHARGE INSTRUCTION Observed: 05/15/2018 Status: F Source: [place] 9:17 AM [facility] [place] Medical Records Department [address] [place] [address] [place] [address] Instructions for Home/Discharge Instructions 05/15/18 0915 MR#: [id number] Acct: [id number] Name: ROBERT MCCRARY Rep #: [id number] : 1960 57 From: Pedro Walker MD PCP: Abran Reveles MD Status: [place] [facility] Diet: Renal Diet Discharge Activity: May Not Drive - for 2-3 days or while taking narcotic pain medications., May Not Shower Lifting Restrictions: 5 pounds Keep extremity elevated above heart level: - - Keep arm elevated above the heart level for 3 days. Additional Activity Instructions:: Exercise hand vigorously with a stress ball. Call your doctor if your incision/area has: Continuous Slow Oozing, Sudden Increased Bleeding - apply pressure and call your doctor., Increased Pain/ Swelling, Increased Redness, Foul Smelling Discharge Call your doctor if you observe: Fever of 101 or Higher Suture Line Care: Avoid Pulling/Pushing, Avoid Pinching/Bending Cleanse incision/area with: Keep Dressing Clean AND Dry Additional Dressing/Incision Instructions:: If your left forearm dressings stayed clean and dry you may leave them in place for 3 days. If there is any sign of irritation or certainly any blistering then remove the tape dressing. Please keep the area clean and dry for 3 days. The tiny Steri-Strips need to remain in place for 1 week after cover dressing removal. Exercise your left hand with a malleable stress ball hourly while awake to help expedite maturation of the fistula Allergies/Adverse Reactions: Allergies No Known Allergies Allergy (Verified 05/08/18 11:19) Medications to take at Discharge Levothyroxine [Synthroid] 150 mcg PO QHS 10/28/15 Simvastatin [Zocor] 20 mg PO QHS 10/28/15 Citalopram Hydrobromide [Citalopram HBr] 40 mg PO QHS 01/03/18 Sevelamer Carbonate [Renvela] 800 mg PO TID #90 tab 01/08/18 Ergocalciferol [Vitamin D] 50,000 unit PO Q7D 01/21/18 Amlodipine [Norvasc] 10 mg PO QHS 05/08/18 hydrALAZINE [Apresoline] 25 mg PO BID 05/08/18 Hydrocodone Bitart/Apap 5-325 [Higbee 5MG-325MG] 1 tablet PO Q6H PRN PRN 2 Days #5 tablet 05/15/18 The following prescriptions were given: Hydrocodone Bitart/Apap 5-325 [Higbee 5MG-325MG] 1 tablet PO Q6H PRN PRN 2 Days #5 tablet PRN Reason: Pain Primary Care Physician: Abran Reveles MD [Primary Care Provider] - Please Follow Up With: Pedro Walker MD - [phone] When: Call to make an appointment for suture removal and follow up in 10 days. 05/15/18 0917 <Electronically signed by Pedro Walker MD> Date Pedro Walker MD CC: Abran Reveles MD OPERATIVE REPORT Observed: 05/15/2018 Status: F Source: [place] 9:05 AM [facility] [place] [facility] Medical Records Department [address] [place] [address] Operative Report 05/15/18 0852 MR#: [id number] Acct: [id number] Name: ROBERT MCCRARY Rep #: [id number] : 1960 57 From: Pedro Walker MD PCP: Abran Reveles MD Status: [place] [facility] [place] Location: [place] [address] Problem List (1) Chronic renal failure, stage 4 (severe) Status: Acute Report of Operation Date of Procedure: 05/15/18 Pre-Operative Diagnosis: Stage IV chronic renal insufficiency Post-Operative Diagnosis: same Surgery/Procedure Performed:: Left forearm radiocephalic arteriovenous fistula creation Description of Surgical Findings:: The patient was taken to the operating room. He was placed upon the table. Timeout informed consent was obtained. The left upper extremity was sterilely prepped and draped. Cc of 1% lidocaine mixed 50-50 of 0.5% Marcaine was used as a local anesthetic. Ultrasound was used to map out the left forearm cephalic vein. A branch point was selected. Local was instilled. An oblique incision was created. Sharp and blunt dissection was used to dissect free the cephalic vein down to the branch point. Sharp and blunt dissection was used to identify the radial artery. The patient received 9000 units of heparin. After adequate circling time the vein was ligated distally with 2 hemoclips. The vein was then spatulated at the branch point to make for large anastomosis. Peripheral vascular clamps were placed on the radial artery. 11 blade was used to make an arteriotomy which was extended with Jacobs scissors. A end-to-side venous to arterial anastomosis was created with running 7-0 Prolene. A single repair suture of 7-0 Prolene was required. Good hemostasis was achieved. There was a good pulse thrill and bruit within the fistula. A side branch several centimeters more proximally in the forearm was identified transverse incision was identified the sidebranch was identified was dissected free to hemoclips were placed and it was transected. The main wound was closed with interrupted 3-0 Vicryl subdermal sutures and then both wounds were closed with interrupted or running septic or 4-0 Monocryl. Steri-Strips Telfa and tape dressings applied. Sponge and instrument and needle counts were reported to the surgeon to be correct. Blood loss was minimal. He tolerated the procedure well he had a viable hand at the completion of his no apparent complication no specimens no drains blood loss minimal Pedro Walker M.D., F.A.C.S. Type of Anesthesia:: Local MAC Anesthesiologist: Shahid Orosco 05/15/18904 <Electronically signed by Pedro Walker MD> Date Pedro Walker MD CC: Abran Reveles MD; Pedro Walker MD Signed BEDSIDE GLUCOSE Collected: 05/15/2018 Status: F Source: EMPERATRIZ 9:00 AM [facility] [place] TYPE CODE TESTS RESULT OUT OF RANGE REFERENCE UNITS LAB L501.080 70-110 mg/dL Normal BEDSIDE GLU 109 Result Comment: MANAGEMENT OF PATIENT CARE PER NURSING PROTOCOL Performed By: #### L501.080 #### [facility] Point of Care [facility] [place] [address] CBC-COMPLETE BLOOD CNT Collected: 05/15/2018 Status: F Source: EMPERATRIZ NO DIFF 6:26 AM [facility] [place] [facility] TYPE CODE TESTS RESULT OUT OF RANGE REFERENCE UNITS LAB L100.1000 4.4-11.0 K/mm3 High WBC 21.6 LAB L100.1200 4.6-6.2 M/mm3 Low RBC 4.32 LAB L100.1300 13.0-16.5 g/dl Low HGB 11.9 LAB L100.1400 40-54 % Low HCT 36.6 LAB L100.1500 80-94 fL Normal MCV 84.7 LAB L100.1600 27.0-32.0 pg Normal MCH 27.5 LAB L100.1700 32-36 g/gl Normal MCHC 32.5 LAB L100.1810 11.6-14.6 % Normal RDW CV 14.1 LAB L100.1820 35.1-43.9 fl Normal RDW SD 43.1 LAB L100.1900 150-450 K/mm3 Normal PLT 370 LAB L100.2000 6.2-12.0 fl Normal MPV 9.1 Performed By: #### L100.0500, L500.2500 #### [facility] [address] [place], [address] BASIC METABOLIC Collected: 05/15/2018 Status: F Source: PENDLETON PROFILE (BMP) 6:26 AM [facility] TYPE CODE TESTS RESULT OUT OF RANGE REFERENCE UNITS LAB L501.0100 74-106 mg/dL High GLU 114 Result Comment: Fasting Glucose result from 100 to 125 mg/dL suggests IMPAIRED HOMEOSTASIS per A.D.A. criteria. Please note revised GLUCOSE reference range effective 2017. LAB L501.1000 7-18 mg/dL High BUN 40 LAB L501.1100 0.70-1.30 mg/dL High CREAT,SERUM 5.61 Result Comment: The validity of the calculated GFR AND GFRAA in patients over 70 years has not been determined. Clinical correlation is essential. LAB L501.1110 >60 mL/min Low EST GFR 11 Result Comment: Non- GFR Calc LAB L501.1115 >60 mL/min Low EST GFR - AA 14 Result Comment: GFR Calc LAB L501.1255 ml/min Normal Estimated CRCL 15.36 LAB L501.1300 10-20 RATIO Low BUN/CRE 7.1 LAB L501.2200 8.5-10 mg/dL Normal .1 CA 8.5 LAB L501.5300 136-14 mmol/L Normal 5 NA 140 LAB L501.5600 3.5-5. mmol/L Normal 1 K 4.0 LAB L501.5900 98-107 mmol/L Normal CL 104 LAB L501.6100 21.0-3 mmol/L Normal 2.0 CO2 24.0 LAB L501.6200 5-15 Normal GAP 12 Performed By: #### L100.0500, L500.2500 #### [facility] [address] [place], [address] BEDSIDE GLUCOSE Collected: 05/15/2018 Status: F Source: [place] 6:14 AM [facility] [place] TYPE CODE TESTS RESULT OUT OF REFERENCE UNITS RANGE LAB L501.080 70-110 mg/dL High BEDSIDE GLU 115 Result Comment: MANAGEMENT OF PATIENT CARE PER NURSING PROTOCOL Performed By: #### L501.080 #### [facility] Point of Care [address] [place] [address] PROGRESS Observed: 05/14/2018 Status: COMPLETED Source: NEAL 12:47 PM [facility] [place] REPOSITORY HNO ID: [id number] Author: Bernie (Rn) SILVANA Oneal Service: (none) Author Type: Registered Nurse Type: Progress Notes Filed: 05/14/2018 12:49 PM Note Text: New Referral Referring Physician Dr. Lila Blakely Organ Type kidney ESRD Yes. Cause: DM/HTN Dialysis Dependant? Yes Name of Dialysis Facility: [facility] Diabetes Yes. Type 2, diagnosed at age 47, not on insulin Current BMI 27.3 Previous Transplant No Date of Last Transplant N/A Currently Listed? No. Facility: N/A Willing to accept blood transfusion? Yes Potential Living Donor? Yes Full transplant evaluation? Yes Nephrology Screen Required? No If yes to nephrology screen, reason: N/A Bernie Oneal RN BSN Kidney AND Pancreas Clinical Radiologist SURGERY VISIT REPORT Observed: 04/23/2018 Status: F Source: [place] 2:33 PM [facility] [place] [address] [place] [address] OFFICE VISIT Date of Service: 04/23/18 MR#: [id number] Acct: [id number] Name: ROBERT MCCRARY Rep #: [id number] : 1960 Provider: Pedro Walker MD Age/Sex: 57/M Location: [facility] Status: Signed Intake Vital Signs04/23/18 Height 5 ft 10 in 04/23/18 Weight: 200 lb 2 oz 04/23/18 Body Mass Index (BMI) 28.7 04/23/18 Blood Pressure 163/67 Intake Visit Reasons: Discuss Fistula Placement /Vein mapping 04/03 [facility] Chief Complaint: discuss fistula 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 Is patient in pain?: No Allergies No Known Allergies Allergy (Verified 04/23/18 14:19) Medications Levothyroxine [Synthroid] 150 mcg PO DAILY 10/28/15 [History Confirmed 04/23/18] Simvastatin [Zocor] 20 mg PO QHS 10/28/15 [History Confirmed 04/23/18] Citalopram Hydrobromide [Citalopram HBr] 40 mg PO DAILY 01/03/18 [History Confirmed 04/23/18] Amlodipine [Norvasc] 10 mg PO DAILY #30 tab 01/08/18 [Rx Confirmed 04/23/18] Sevelamer Carbonate [Renvela] 800 mg PO TID #90 tab 01/08/18 [Rx Confirmed 04/23/18] hydrALAZINE [Apresoline] 25 mg PO TID #90 tab 01/08/18 [Rx Confirmed 04/23/18] Ergocalciferol [Vitamin D] 50,000 unit PO Q7D 01/21/18 [History Confirmed 04/23/18] [facility] Medical History ELMO (acute kidney injury) (Acute) Hyperkalemia (Acute) Hyperlipidemia (Chronic) Hypothyroidism (Chronic) Hypertension (Chronic) Type II diabetes mellitus (Chronic) Community acquired pneumonia (Acute) Surgical History H/O hernia repair (Acute) S/P nasal surgery (Acute) Family History Father No problems noted. Social History Smoking Status: Never smoker alcohol intake: never HPI HPI HPI: ROBERT MCCRARY, is a 57 M who presents to the office today for surgical consultation regarding arteriovenous fistula creation. December 2017 PADMINI Hameed and I saw the patient. The initial notes suggested the following. HPI HPI: ROBERT MCCRARY, is a 57 M I am seeing for acute renal failure. Patient states for approximately 3 months he has been feeling unwell. He states last month he had what he thought was flu-like symptoms. He notes currently he is living with his [id number] and has been in and out of hospitals with her. He notes he left his health care go. Patient states on 01/03/18, he was at work when his boss told him he looked yellow and unwell. Patient contacted his PCP, Dr. Reveles, who ordered lab work which then lead to the patient's hospitalization. Patient noted his creatinine was 9.91. Dr. Blakely was consulted in the hospital. Patient noted at the time of hospitalization it was decided between the patient and Dr. blakely that they would let nature take its course to see if the creatinine would correct itself. Patient had repeat labs today noting the creatinine was increased to 10.2 and urgent referral to our office took place for tunneled dialysis catheter placement. Patient notes history of diabetes type 2 which he was taking Metformin. All diabetes medications were stopped upon discharge from the hospital on 01/08. Patient noted his previous HgbA1C was 9 last Jun 2017. Patient notes his PCP manages his diabetes. Patient denies previous myocardial infarction, stroke, blood clots. He denies previous clavicle fracture or central line placement. Patient notes a history of sleep apnea which he wears a CPAP machine every night. Only surgery was hernia [address] Fuentes[address] Subsequently placed right internal jugular tunneled dialysis catheters. The patient has been vigorously encouraged by Dr. Vannessa benoit need to present for fistula creation but the patient has been resistant. Only now does he recognize that his renal failure is likely permanent. On April 11, 2018 at the [facility] he had bilateral extremity vein mapping. This suggested that bilateral cephalic veins were small with thick matamoros. Bilateral upper arm basilic veins were felt to be adequate. The patient is feeling improved subsequent to his December emergency hospitalization and initiation of dialysis ROS General General: Yes fatigue; no weight change, appetite, colon cancer, breast cancer or weakness HEENT HEENT: No difficulty swallowing, eye injury, eye surgery, swollen glands or hoarseness Endo Endocrine: Yes thyroid disease and diabetes mellitus; no thyroid cancer, Hair loss, heat intolerance or cold intolerance Musc Musculoskeletal: No back problems, arthritis, rheumatoid arthritis, gout or joint pain Cardio Cardiovascular: Yes high blood pressure; no murmur, pacemaker, heart disease, atrial fibrillation, heart attack, heart stent, palpitations, shortness of breat with exertion or chest pain Psych Psychiatric: Yes depression; no anxiety or hearing voices Resp Respiratory: No shortness of breath, No sleep apnea, No cough, No COPD, No asthma, No emphysema, No wheezing Gastro Gastrointestinal: No abdominal pain, No nausea or vomiting, No diarrhea, No constipation, No blood in stool, No acid reflux, No hemorrhoids, No ulcers, No gallbladder problem, No black,tarry stools Adrian Hematologic: No blood thinners, No blood disorders, No bleeding, No anemia, No blood clots Neuro Neurologic: No weakness Exam Const General: cooperative, no acute distress Nutritional Appearance: average body habitus Orientation: alert, awake, oriented x3 Eyes General: appearance normal, both eyes and all related structures Neck Neck: normal visual inspection Chest Other: Right IJ tunneled dialysis catheters in place Resp Effort AND Inspection: normal respiratory effort Auscultation: clear to auscultation bilaterally Cardio Rate: regular rate Rhythm: regular rhythm Heart Sounds: no murmurs GI Palpation: soft, no hepatosplenomegaly Skin General: no rashes or lesions noted Neuro General: CN's II-XI intact bilaterally Extrem General: no calf tenderness Psych Affect: normal affect Assessment AND Plan Problems 1. Chronic renal insufficiency, stage V N18.5 Plan On inspection today although the preoperative imaging studies suggest a diminutive cephalic veins bilaterally the patient has a visible left forearm cephalic vein his nondominant arm. I performed ultrasound inspection. Within approximately 3-4 cm of the wrist it becomes diminutive. Then it appears to be adequate with this subsequent major branching. It appears then to be patent all the way to the antecubital space were crossovers and fills the basilic vein. I recommended the patient a left forearm radiocephalic arteriovenous fistula. He has a good radial pulse and a normal Kumar test. I believe the fissure will be slightly more proximal to the wrist. I additionally plan a sidebranch ligation which I will determine at the time of surgery using ultrasound as a mapping guide. The patient is aware of technique, benefits, risks, alternatives. He has had an opportunity to ask and have questions answered. He is aware that the tunneled dialysis catheters are placing him at increased risk. He is aware that I anticipate future office removal of the tunneled dialysis catheters. I appreciate the ongoing opportunity of assisting with his surgical care Cc: Dr. Abran Reveles and Dr. Vannessa Walker M.D., F.A.C.S. Coding Level of Care Code Off vis,est,level 4 Diagnoses Chronic renal insufficiency, stage V N18.5 04/23/18 1433 <Electronically signed by Pedro Walker MD> Date Pedro Walker MD Cosigner Signature: Date (if applicable) CC: Vannessa Blakely DO; Abran Reveles MD VENOUS DUPLEX UPPER Observed: 04/17/2018 Status: F Source: [place] EXTREMITY 10:04 AM [facility] [place] Cardiovascular Services [address] [place] [id number] Saphenous Vein Mapping, Bilat 04/11/18 1306 MR#: [id number] Acct: [id number] Name: ROBERT MCCRARY Rep #: [id number] : 1960 57 From: Pedro Walker MD Attending Dr: Vannessa Blakely DO Status: REG CLI Ordering Dr: Pedro Walker MD Date: 04/11/18 Location: [facility] Sex: M C Admitted: Reason For Study: Preop Testing Right Proximal Left Proximal Rt Brachial Distal: 0.50cm x 0.49cm, Lt Brachial A Distal: 0.45cm x 0.46cm, 127cm/s 120cm/s Rt Radial Distal: 0.28cm x 0.28cm, 86cm/s Lt Radial A Distal: 0.26cm x 0.28cm, 79cm/s Rt BasilicV origin: 0.50cm x 0.51cm Lt BasilicV Origin: 0.35cm x 0.34cm Rt BasilicV mid: 0.39cm x 0.38cm Lt BasilicV Mid: 0.26cm x 0.27cm Rt BasilicV elbow: 0.49cm x 0.51cm Lt BasilicV Elbow: 0.16cm x 0.15cm Rt CephalicV wrist: 0.16cm x 0.17cm Lt CephalicV Wrist: 0.14cm x 0.16cm Rt CephalicV mid forearm: 0.20cm x 0.26cm Lt CephalicV Mid Forearm: 0.15cm x 0.18cm Rt CephalicV below antecubital: 0.20cm x Lt CephalicV Below Antecubital: 0.17cm x 0.21cm 0.15cm Rt CephalicV above antecubital: 0.20cm Lt CephalicV Above Antecubital:0.11cm x x0.21cm 0.10cm Rt CephalicV mid bicep: 0.18cm x 0.19cm Lt CephalicV Mid Bicep: 0.12cm x 0.13cm Rt CephalicV axillary: 0.36cm x 0.36cm Lt ChepalicV Axillary: 0.16cm x 0.17cm Rt CephalicV is thick walled. Lt CephalicV is thick walled Lt BasilicV is thick walled at elbow. < Interpretation Summary Bilateral cephalic veins are small with thick matamoros noted Adequate bilateral upper arm basilic veins, larger on the right. Normal flow bilateral radial and brachial arteries. Ordering Physician: Pedro Walker Referring Physician: Abran Reveles Performed By: Marleen Atkinson, SAMANTHA, RVT 04/17/18 1004 Date Pedro Walker MD CC: Vannessa Blakely DO; Abran Reveles MD; Pedro Walker MD Date Dictated: 04/11/18 1306 Date Transcribed: 04/17/18 1004 Manager Mountain: Signed 12 LEAD ELECTROCARDIOGRAM Observed: 03/04/2018 Status: F Source: [place] 8:46 AM [facility] Cardiovascular Services [address] [place] [address] 12 Lead EKG 03/01/18 1220 MR#: [id number] Acct: [id number] Name: ROBERT MCCRARY Rep #: [id number] : 1960 57 From: George Braswell MD Attending Dr: Status: DEP ER Ordering Dr: Rod Sutton MD Date: 03/01/18 Location: ED Sex: M C Admitted: Test Reason : SYNCOPE Blood Pressure : / mmHG Vent. Rate : 071 BPM Atrial Rate : 071 BPM P-R Int : 140 ms QRS Dur : 080 ms QT Int : 536 ms P-R-T Axes : 069 024 060 degrees QTc Int : 582 ms Normal sinus rhythm Prolonged QT Abnormal ECG Confirmed by WISAM COLON, GEORGE ([id number]), editor at large HARPAL REVELES ([id number]) on 03/04/2018 8:45:51 AM Referred By: RIZWANA/GLORYAYYEJessie Confirmed By:GEORGE BRASWELL MD 03/04/18 0845 Date George Braswell MD CC: Braydon Sutton MD; Abrna Reveles MD Signed EMERGENCY DEPARTMENT Observed: 03/01/2018 Status: F Source: [place] SUMMARY 3:51 PM [facility] Medical Records Department [address] [place] [address] Emergency Department Summary 03/01/18 1232 MR#: [id number] Acct: [id number] Name: ROBERT MCCRARY Rep #: [id number] : 1960 57 From: Rod Sutton MD PCP: Abran Reveles MD Status: REG ER - ER Visit Summary Date of Service: 03/01/18 Chief Complaint: Near syncope History of Present Illness: The patient is a 57 M presenting with near syncope. He is a newer dialysis patient. Saturday, , and Saturday dialysis since mid December. His senior talent acquisition specialist is Dr. Blakely. He has had 3 episodes of hypotension and near syncope during the middle of his treatment. He has immediately notified nurses and was unhooked from dialysis. He feels lightheaded on standing but it essentially resolves within a few minutes of stopping dialysis. He states that he is able to come treatment and has completed all of his treatments without further issues. He does not have associated shortness of breath or chest pain. This happened again today during the treatment. He has never had a complete syncopal event, just lightheadedness. No vertigo or headaches. Physical Examination: Vitals are within normal limits here. He is not in distress. Neck is supple. Heart tones are regular and without murmur. Lungs are clear bilaterally. Abdomen is soft and nontender. No focal or lateralizing neuro findings. Test Results: Blood cell count is 19.5. Hemoglobin 8.3. Creatinine 2.5 two-view chest x-ray unremarkable Emergency Department Course and Treatment: EKG here is basically unremarkable except for a slightly prolonged QTC. White blood cell count is 19.5 but he is currently on steroids. Chest x-ray negative. BMP unremarkable. Liver enzymes are normal. He remained completely asymptomatic and states that this only occurs during dialysis. I discussed the case with his senior talent acquisition specialist, Dr. Blakely who recommended obtaining a CT scan because he has complained intermittently of right flank pain during dialysis. 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 Examination, he has no abdominal pain and he has no right upper quadrant tenderness. With normal liver enzymes and no secondary findings of acute cholecystitis, I think that this can safely be followed up as an outpatient. I discussed the findings again with Dr. Blakely and she agrees that he can follow- up as an outpatient with a surgeon. The exact clinical significance of this is really not clear and it may have nothing to do with his pain. He denies any pain after meals and really the pain was more in his flanks then in his right upper quadrant but it is still worth follow- up in my opinion. He looks quite well and states that he feels completely at baseline. The plan is for him to follow-up with his primary care physician on Saturday or Saturday for his prolonged QT and near syncope and also obtain a referral to general surgery. Treatment Plan: Follow up with his doctor on Saturday or Saturday, return if worse Disposition: Home in stable condition Impression: Initial encounter near syncope, uncertain etiology, cholelithiasis without evidence of cholecystitis This note was generated with Electronifie dictation software. It may contain incorrect words, spelling, and punctuation that were not noted in review of the chart prior to signing ED Disposition - Plan for ED Patient: Chief Complaint: Syncope Instructions: ED Near Syncope Unkn, What are Gallstones? Referrals: Abran Reveles MD [Primary Care Provider] - As soon as possible What to do if you have Problems For any increased pain, shortness of breath, bleeding, nausea or vomiting, chest pain, or any unexpected problems, contact your Primary Care Provider. Call [facility] ([phone]) or report to the closest Emergency Room. Call 911 if necessary. 03/01/18 1551 <Electronically signed by Rod Sutton MD> Date Rod Sutton MD Cosigner Signature (If Indicated): Date CC: Abran Reveles MD ABDOMEN/PELVIS WITHOUT Observed: 03/01/2018 Status: F Source: [place] CONT 1:49 PM [facility] Imaging Services [address] [place] [address] Abdomen/Pelvis without Cont MR#: [id number] Acct: [id number] Name: ROBERT MCCRARY Rep #: [id number] : 1960 M 57 From: Gail Reveles MD PCP: Abran Reveles MD Status: REG ER Study: Abdomen/Pelvis without Cont Date of Exam: 03/01/18 Exam# [id number] Ordering Dr: Rod Sutton MD STUDY: CT ABDOMEN AND PELVIS WITHOUT CONTRAST REASON FOR EXAM: Male, 57 years old. Bilateral flank pain. Patient is on dialysis for renal failure. RADIATION DOSAGE (If Supplied By Facility): CTDIvol = ( 10.86 ) mGy, DLP = ( 572.70 ) mGycm TECHNIQUE: Transaxial images were obtained from the dome of the diaphragm to the symphysis pubis without oral contrast, and without intravenous contrast. Sagittal and coronal images were reconstructed. Individualized dose optimization techniques were used for this CT. COMPARISON: None. FINDINGS: There is left basilar dependent atelectasis and possible patchy airspace disease. Curvilinear opacity within the left lower lobe. Curvilinear opacities at the left lung base could be subsegmental atelectasis and/or pulmonary fibrosis. The visualized portions of the heart are within normal limits. Normal liver. There are multiple gallstones. Normal spleen. Normal pancreas. There appears to be some of mesenteric vascular stranding within the upper abdomen with groundglass attenuation. This suggests the possibility of mesenteric panniculitis. Sequela of pancreatitis is thought less likely. Normal bilateral adrenal glands. There is bilateral perinephric stranding. Both kidneys have normal size and position. There is no evidence for hydronephrosis, hydroureter or radiopaque ureteral calculus. Normal visualized stomach. There is no evidence for dilated bowel, ascites or pneumoperitoneum. Small bowel has a grossly normal appearance. Stool is visible throughout the colon with scattered diverticula. There is non-visualization of the appendix. There is diffuse atherosclerotic calcification of the abdominal aorta, without a demonstrated aneurysm. Normal inferior vena cava. There is borderline retroperitoneal lymphadenopathy with enlarged nodes no greater than 10mm in the short axis diameter. Normal urinary bladder. There are prostatic calcifications. There is increased attenuation within the subcutaneous soft tissues of the intra-abdominal suggestive sequela of previous injections. There is a grade 1 anterolisthesis at L5-S1 secondary to spondylolysis of L5. There are multilevel Schmorl's nodes of the thoracic and lumbar spine. CT/Abdomen/Pelvis without Cont IMPRESSION: 1. Apparent acute inflammation within the upper abdominal mesentery suggesting sequela of mesenteric panniculitis. Clinical correlation is suggested regarding the acuity of this finding. 2. Grade 1 spondylolisthesis at L5-S1 secondary to spondylolysis. 3. Cholelithiasis. Electronically Signed: Gail Reveles MD at 15:23 EDT , Service support , CC: Braydon Sutton MD; Abran Reveles MD Manager [place]: Signed CHEST PA AND LATERAL Observed: 03/01/2018 Status: F Source: [place] 12:32 PM [facility] Imaging Services [address] [place] [address] Chest PA and Lateral MR#: [id number] Acct: [id number] Name: ROBERT MCCRARY Rep #: [id number] : 1960 M 57 From: Gail Reveles MD PCP: Abran Reveles MD Status: REG ER Study: Chest PA and Lateral Date of Exam: 03/01/18 Exam# [id number] Ordering Dr: Rod Sutton MD STUDY: X-RAY CHEST REASON FOR EXAM: Male, 57 years old. Chest pain and near syncope during dialysis this morning. TECHNIQUE: PA and lateral views of the chest. COMPARISON: January 14 2018. FINDINGS: Right-sided dialysis catheter is visible with the tip of the catheter probably in the superior vena cava. Cardiac monitoring leads are present. The lungs are expanded. There is patchy opacity at the left lung base, similar to the previous study and may be related to pulmonary fibrosis. A nodular opacity is visible in the right chest probably represents a previous location of a Mediport catheter. There is no demonstrated pleural abnormality. There is borderline cardiomegaly. Normal mediastinum and kieran. There is prominence of the pulmonary hilar arteries without peripheral pulmonary vascular congestion. There is atherosclerotic calcification of the aortic arch with tortuosity. Normal visualized thoracic spine. Normal visualized ribs, clavicles, and shoulders. There is no demonstrated abnormality of the visualized soft tissue structures of the upper abdomen. RAD/Chest PA and Lateral IMPRESSION: No radiographic evidence of acute cardiopulmonary disease. Electronically Signed: Gail Reveles MD at 13:26 EDT , Service support , CC: Braydon Sutton MD; Abran Reveles MD Manager [place]: Signed CBC W/DIFF, AUTOMATED Collected: 03/01/2018 Status: F Source: [place] 12:20 PM [facility] [place] TYPE CODE TESTS RESULT OUT OF RANGE REFERENCE UNITS LAB L100.1000 4.4-11.0 K/mm3 High WBC 19.5 LAB L100.1200 4.6-6.2 M/mm3 Low RBC 2.96 LAB L100.1300 13.0-16.5 g/dl Low HGB 8.3 LAB L100.1400 40-54 % Low HCT 25.7 LAB L100.1500 80-94 fL Normal MCV 86.8 LAB L100.1600 27.0-32.0 pg Normal MCH 28.0 LAB L100.1700 32-36 g/gl Normal MCHC 32.3 LAB L100.1810 11.6-14.6 % Normal RDW CV 13.8 LAB L100.1820 35.1-43.9 fl Normal RDW SD 42.1 LAB L100.1900 150-450 K/mm3 Normal PLT 397 LAB L100.2000 6.2-12.0 fl Normal MPV 8.9 LAB L100.2100 47-70 % High NEUT% 82.2 LAB L100.2200 19-41 % Low LY% 9.4 LAB L100.2300 0-10 % Normal MONO% 7.4 LAB L100.2400 0-5 % Normal EO% 0.3 LAB L100.2500 0-1 % Normal BASO% 0.2 LAB L100.2550 0.0-0.9 % Normal IM GRAN % 0.500 Result Comment: IG% - Immature Granulocytes (promyelocytes, myelocytes and metamyelocytes) > 1% indicates that a LEFT SHIFT is Present. LAB L100.2620 2.0-7.7 X10 3/uL High Absolute Neut 16.1 LAB L100.2720 0.83-4.51 X10 3/ul Normal Absolute Lymph 1.84 Performed By: #### L100.0100 #### [facility] Laboratory [address] [place], [address] COMPREHENSIVE METABOLIC Collected: 03/01/2018 Status: F Source: [place] [facility] 12:20 PM [facility] TYPE CODE TESTS RESULT OUT OF RANGE REFERENCE UNITS LAB L501.0100 74-106 mg/dL High GLU 154 Result Comment: Fasting Glucose result greater than or equal to 126 mg/dL suggests DIABETES MELLITUS per A.D.A. criteria. Please note revised GLUCOSE reference range effective 2017. LAB L501.1000 7-18 mg/dL Normal BUN 18 LAB L501.1100 0.70-1.30 mg/dL High CREAT,SERUM 2.50 Result Comment: The validity of the calculated GFR AND GFRAA in patients over 70 years has not been determined. Clinical correlation is essential. LAB L501.1110 >60 mL/min Low EST GFR 29 Result Comment: Non- GFR Calc LAB L501.1115 >60 mL/min Low EST GFR - AA 35 Result Comment: GFR Calc LAB L501.1255 ml/min Normal Estimated CRCL 34.47 LAB L501.1300 10-20 RATIO Low BUN/CRE 7.2 LAB L501.1500 6.4-8. g/dL Normal 2 T PROT 7.1 LAB L501.1800 3.2-5. g/dL Low 0 ALB 2.9 LAB L501.1950 2.2-4. g/dL Normal 2 GLOB 4.2 LAB L501.2000 0.9-2. RATIO Low 4 A/G 0.7 LAB L501.2200 8.5-10 mg/dL Low .1 CA 7.6 LAB L501.4100 15-37 U/L Low AST 12 LAB L501.4305 45-117 U/L Normal ALK P 66 LAB L501.4405 16-61 U/L Low ALT 12 Result Comment: Please note revised ALT reference range effective 2017. LAB L501.4600 0.20-1.00 mg/dL Normal T BILI 0.30 LAB L501.5300 136-145 mmol/L Normal NA 142 LAB L501.5600 3.5-5.1 mmol/L Low K 3.0 LAB L501.5900 98-107 mmol/L Normal CL 102 LAB L501.6100 21.0-32.0 mmol/L Normal CO2 32.0 LAB L501.6200 5-15 Normal GAP 8 Performed By: #### L500.4050 #### [facility] Laboratory [address] [place], [address] BIOPSY/INJ OR NEEDLE Observed: 01/21/2018 Status: F Source: [place] PLACEMENT 8:08 AM [facility] Imaging Services [address] [place] [address] Biopsy/Inj or Needle Placement MR#: [id number] Acct: [id number] Name: ROBERT MCCRARY Rep #: [id number] : 1960 M 57 From: Godwin Palmer MD PCP: Abran Reveles MD Status: REG CLI Study: Biopsy/Inj or Needle Placement Date of Exam: 01/21/18 Exam# [id number] Ordering Dr: Vannessa Blakely DO PROCEDURE: CT GUIDED PERCUTANEOUS KIDNEY BIOPSY. DATE: January 21, 2018. INDICATION: Male, 57 years old. Renal failure. Proteinuria. PHYSICIAN: Godwin Palmer M.D. MEDICATIONS: 2 mg of Versed and 50 mcg of fentanyl intravenously. Conscious sedation protocol was followed. The conscious sedation started at 9:53 AM and terminated at 10:08 AM. The patient was monitored independently by the department nurse. ACCESS SITE: Lower pole of the left kidney. NEEDLE: 18-gauge core biopsy needle. SPECIMEN: 4 18-gauge cores EBL: None. COMPLICATIONS: None immediate. RADIATION DOSAGE (If Supplied By Facility): CTDIvol = ( 26 ) mGy, DLP = ( 332.05 ) mGycm. Individualized dose optimization techniques were utilized. The risks, benefits, and alternatives to the procedure and sedation were explained to the patient. The specific risk of hemorrhage requiring further treatment or intervention was detailed and accepted. Written informed consent was obtained. The patient was placed on the CT table in the prone position. Multiple axial images were obtained from the lung base through the caudal extent of the kidneys. An appropriate entry site was identified and a sae made on the skin. The skin overlying the [ left] posterior flank was prepped and draped in sterile fashion. 1% lidocaine was administered subcutaneously for local anesthesia. Initially, a 22 gauge needle was advanced and CT images confirmed good needle position. The 22 gauge needle was then exchanged for an 17 gauge introducer needle which was advanced. Repeat CT images confirmed good needle trajectory and tip position. The introducer needle was then advanced into the periphery of the inferior renal pole, and CT images were again obtained to confirm exact tip location. The inner stylet of the introducer needle was then removed and an 18 gauge coaxial needle was advanced thru the introducer needle and biopsy performed. A total of [4 ] passes were performed and the specimen collected was sent to Pathology for further evaluation. The needle was withdrawn. Hemostasis was achieved with manual compression and a sterile dressing was applied. Repeat CT images of the biopsy area was performed which demonstrated no gross bleeding or hematoma. The patient tolerated the procedure well without immediate complications. The patient was transported to the [floor/recovery area] in stable condition. CT/Biopsy/Inj or Needle Placement IMPRESSION: Successful CT guided percutaneous kidney biopsy. Electronically Signed: Godwin Palmer MD at 10:41 EST Tel [phone], Service support , CC: Vannessa Blakely DO; Abran Reveles MD Manager [place]: Signed TYPE AND SCREEN Collected: 01/20/2018 Status: F Source: [place] 11:09 AM [facility] [place] Order Comment: CMV NEG?* N Give When? IVONNE Irradiated? N Leukodepleted? Y Reason for Type AND Screen/Red Cells: ANEMIA TYPE CODE TESTS RESULT OUT OF RANGE REFERENCE UNITS LAB B10.0800 A Normal BLOOD TYPE GEL POSITIVE LAB B100.4000 Normal Antibody NEGATIVE Screen Performed By: #### B101.7450 #### [facility] Laboratory [facility] [place], [address] Collected: 01/20/2018 Status: F Source: [place] 11:09 [facility] REPOSITORY TYPE CODE TESTS RESULT OUT OF REFERENCE UNITS RANGE LAB U100.0000 [id number] TRANSFUSED PRODUCT: T AND S with Crossmatch, Red Cells COUNT: 1 Performed By: #### U100.0000 #### Non-[facility] Laboratory - refer to report for specific site HEMOGLOBIN Collected: 01/20/2018 Status: F Source: [place]ER[place]Z 6:08 AM [facility] [place] TYPE CODE TESTS RESULT OUT OF RANGE REFERENCE UNITS LAB L100.1300 13.0-16.5 g/dl Low HGB 7.0 Performed By: #### L100.1300 #### [facility] Laboratory [address] [place], [address] KIDNEY BIOPSY Observed: 01/20/2018 Status: F Source: [place] 12:00 AM [facility] Patient: ROBERT MCCRARY : 1960 (57/M) Acct Num: [id number] Phys: Vannessa Blakely DO Unit Num: [id number] Loc: CT Specimen: [id number] Received: 01/21/18 - 1221 Spec Type: KIDNEY BX TISSUES TISSUES: Kidney, NOS COMMENT Case discussed with Dr. Blakely on 01/22/[address] Bennett. Correlate clinically with medical history and onset of symptoms. Findings compatible with marked chronic renal disease in the context of diabetes. No evidence of an acute inflammatory or immune-mediated process. GROSS DESCRIPTION The specimen is sent entirely to [facility] for diagnosis. Received in saline in a test tube are four cores of rodney tissue measuring 2 cm, 1.8 cm, 1.5 cm and 1.4 cm. The specimen is divided for light microscopy, immunofluorescence and electron microscopy. HEADER OPERATION: CT-guided kidney biopsy, left PRE-OP DIAGNOSIS: Proteinuria, diabetes, poor compliance TISSUE SUBMITTED: 18 gauge cores x4, left kidney MICROSCOPIC DESCRIPTION Light microscopy examined with H AND E, PAS, Powell sliver and trichrome stains yields 18 glomeruli, of which 5 are globally sclerosed. The remaining glomeruli show significant mesangial expansion and thickening of capillary loops. There is rare micronodular formation noted. There are focal segmental sclerotic changes. There is no evidence of significant glomerular inflammation or crescent formation. There are diffuse sheets of lymphoplasmacytic cells noted in the interstitium. There are focal lymphoid aggregates noted. There is marked eosinophilia throughout the chronic inflammatory infiltrate. Trichrome stain highlights mild and patchy interstitial fibrosis changes. There are significant areas of tubule thickening as well as tubular atrophy. There are patchy areas of dilated tubules noted. There are focal pigment- laden tubules. There is focal Tamm-Horsfall protein in tubules. There is a paucity of tubules uninvolved by chronic atrophic changes. The arterioles examined show marked intimal layer thickening with no evidence of inflammation or vasculitis. Medullary tissue evaluated shows significant chronic inflammation with patchy edema. There is rare fibrous and fibroadipose tissue noted. Congo red stain performed is negative for any evidence of amyloid deposition. Special stain positive controls are reviewed and deemed adequate. IMMUNOFLUORESCENCE: There are 5 glomeruli for immunofluorescence evaluation, of which 1 is globally sclerosed. IgG shows a 1 to 2+ confluent mesangial signal. C3 shows a 1+ focal granular signal in few glomeruli. IgA, IgM, C1q, kappa and lambda are negative. Albumin and fibrin shows only background signal staining. Immunofluorescence positive and negative controls are reviewed and deemed adequate. ELECTRON MICROSCOPY: Ultrastructure evaluation yields 2 glomeruli, which both show evidence of mesangial expansion and sclerotic changes to a variable degree. The glomerular basement membranes show variable convolution/folding as well as thickening. There are foci of membranous protein trapping, but no discrete evidence of membranous or mesangial deposits. Podocyte foot processes appear overall intact with rare microvillous changes and effacement. The tubules seen show mild degenerative changes. MICROSCOPIC DIAGNOSIS Left kidney, CT-guided biopsies: Renal tissue showing thickened basement membrane, rare micronodular glomerular changes, focal glomerulosclerosis, severe interstitial chronic inflammation, tubule atrophy and arteriosclerotic changes; see comment. Signed Balaji Rader 01/24/18 <signature on file> Performed By: #### PKI #### [facility] [address] [place], [address] HEMOGLOBIN Collected: 01/18/2018 Status: F Source: [place] 7:00 AM [facility] [place] TYPE CODE TESTS RESULT OUT OF RANGE REFERENCE UNITS LAB L100.1300 13.0-16.5 g/dl Low HGB 7.1 Result Comment: RESULTS CALLED TO TONI MADRIGAL 01/18/18 0840 Chikis Alas. REPORT READ BACK BY SAME. Performed By: #### L100.1300 #### [facility] [address] [place], [address] DISCHARGE INSTRUCTION Observed: 01/14/2018 Status: F Source: [place] 4:45 PM [facility] [place] Medical Records Department [address] [place] [address] Instructions for Home/Discharge Instructions 01/14/18 1009 MR#: [id number] Acct: [id number] Name: ROBERT MCCRARY Rep #: [id number] : 1960 57 From: Pedro Walker MD PCP: Abran Reveles MD [place] [facility] [place] Diet: Renal Diet Discharge Activity: Return to Normal Activity, May Not Shower Additional Activity Instructions:: May not drive, work with heavy equipment, or sign legal documents for [address] if you are no longer taking narcotic pain medications. You may drive when you are no longer taking pain medications. Additional Dressing/Incision Instructions:: Please leave the bandage in place. The dialysis center will assist with care. Allergies/Adverse Reactions: Allergies No Known Allergies Allergy (Verified 01/13/18 14:13) Medications to take at Discharge Levothyroxine [Synthroid] 150 mcg PO DAILY 10/28/15 Simvastatin [Zocor] 20 mg PO QHS 10/28/15 Citalopram Hydrobromide [Citalopram HBr] 40 mg PO DAILY 01/03/18 Amlodipine [Norvasc] 10 mg PO DAILY #30 tab 01/08/18 HydrALAZINE [Apresoline] 25 mg PO TID #90 tab 01/08/18 Sevelamer Carbonate [Renvela] 800 mg PO TID #90 tab 01/08/18 Hydrocodone Bitart/Apap 5-325 [Higbee 5MG-325MG] 1 tablet PO Q6H PRN PRN #6 tablet 01/14/18 The following prescriptions were given: Hydrocodone Bitart/Apap 5-325 [Higbee 5MG-325MG] 1 tablet PO Q6H PRN PRN #6 tablet PRN Reason: Pain Primary Care Physician: Abran Reveles MD [Primary Care Provider] - Please Follow Up With: Pedro Walker MD - [phone] When: Please plan to follow up in 14 days in the office. After vein mapping 01/14/18 0715 <Electronically signed by Pedro Walker MD> Date Pedro Walker MD CC: Abran Reveles MD OPERATIVE REPORT Observed: 01/14/2018 Status: F Source: [place] 4:45 PM [facility] [place] Medical Records Department [address] [place] [address] Operative Report 01/14/18 1037 MR#: [id number] Acct: [id number] Name: ROBERT MCCRARY Rep #: [id number] : 1960 57 From: Pedro Walker MD PCP: Abran Reveles MD Status: [facility] [place] [facility] Problem List (1) Chronic renal failure, stage 4 (severe) Status: Acute Report of Operation Date of Procedure: 01/14/18 Pre-Operative Diagnosis: Chronic renal insufficiency in need of hemodialysis access in the form of hemodialysis catheters Post-Operative Diagnosis: Same Surgery/Procedure Performed:: Right internal jugular 19 cm pre-curved hemodialysis catheter placement. Palindrome 19 cm pre-curved. Reference #[id number]. Lot #[id number] Description of Surgical Findings:: Amount and informed consent was obtained. 57-year-old gent was taken to the operating room. He was placed on the table. He underwent monitored anesthesia care local anesthetic. Ancef 2 g given preoperatively. The right neck and chest were sterilely prepped and draped. Under ultrasound guidance 1% lidocaine mixed 50-50 with 0.5% Marcaine was used as a local anesthetic. A total of 15 cc was used. Local was instilled under ultrasound guidance. Micropuncture needle was used to gain access the right internal jugular vein. Micropuncture wire inserted. Local was instilled down upon the chest wall. The 19 cm pre- curved palindrome catheter was tunneled from the chest to the neck site. Fluoroscopy demonstrated good positioning. Micropuncture sheath was placed over the wire. An 035 J-wire was inserted. Serial dilatation was performed. The sheath dilator was inserted. The wire and the dilator were removed. The catheter was advanced to the sheath. The sheath was split. The catheter was positioned at the SVC atrial junction. The catheter was secured skin with interrupted 3-0 nylon. Next site was closed with interrupted 5-0 Vicryl subdermal stitch. Telfa and OpSite dressings applied to the neck. A silver and OpSite dressing was applied to the catheter exit site. Counts correct blood loss minimal. No apparent complications the patient was taken to the recovery or insect condition. Stat portable chest x-ray is pending. Pedro Walker M.D., F.A.C.S. Type of Anesthesia:: Local MAC 01/14/18 1645 <Electronically signed by Pedro Walker MD> Date Pedro Walker MD CC: Abran Reveles MD; Pedro Walker MD Signed CHEST 1 VIEW Observed: 01/14/2018 Status: F Source: [place] (PORTABLE) 10:07 AM [facility] [place] Imaging Services [address] [place] [id number] Chest 1 View (Portable) MR#: [id number] Acct: [id number] Name: ROBERT MCCRARY Rep #: [id number] : 1960 M 57 From: Godwin Palmer MD PCP: Abran Reveles MD Status: [facility] Study: Chest 1 View (Portable) Date of Exam: 01/14/18 Exam# [id number] Ordering Dr: Pedro Walker MD STUDY: X-RAY CHEST REASON FOR EXAM: Male, 57 years old. Hemodialysis catheter placement. TECHNIQUE: Single AP portable view of the chest. COMPARISON: Comparison is made with prior study dated October 30, 2015. FINDINGS: A right-sided double lumen catheter has been placed. The tip is at the junction of superior vena cava and right atrium. Minimal increased markings at the left lung base suggestive of atelectasis. The previously seen left midlung infiltrate has cleared. There is no demonstrated pleural abnormality. Normal size heart. Normal mediastinum and kieran. Normal visualized pulmonary arteries. Normal visualized aortic arch and descending thoracic aorta. Normal visualized thoracic spine. Normal visualized ribs, clavicles, and shoulders. There is no demonstrated abnormality of the visualized soft tissue structures of the upper abdomen. RAD/Chest 1 View (Portable) IMPRESSION: The tip of the right double-lumen catheter is at the junction of superior vena cava and right atrium. Electronically Signed: Godwin Palmer MD at 12:20 EST Tel [phone], Service support , CC: Abran Reveles MD; Pedro Walker MD Manager [place]: Signed BEDSIDE GLUCOSE Collected: 01/14/2018 Status: F Source: [place] 8:50 AM [facility] [place] TYPE CODE TESTS RESULT OUT OF REFERENCE UNITS RANGE LAB L501.080 70-110 mg/dL High BEDSIDE GLU 113 Result Comment: MANAGEMENT OF PATIENT CARE PER NURSING PROTOCOL Performed By: #### L501.080 #### [facility] Point of Care [address] [place] [address] SURGERY VISIT REPORT Observed: 01/13/2018 Status: F Source: [place] 4:00 PM [facility] [place] [facility] [address] [place] [address] OFFICE VISIT Date of Service: 01/13/18 MR#: [id number] Acct: [id number] Name: ROBERT MCCRARY Jeison Rep #: [id number] : 1960 Provider: Tamera Gimenez PA-C Age/Sex: 57/M Location: [facility] Status: Signed Intake Vital Signs01/13/18 Height 5 ft 10 in 01/13/18 Weight: 200 lb 01/13/18 Body Mass Index (BMI) 28.7 Intake Visit Reasons: tunneled cath insertion Chief Complaint: Acute Renal Failure 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 Is patient in pain?: No Allergies No Known Allergies Allergy (Verified 01/13/18 14:13) Medications Levothyroxine [Synthroid] 150 mcg PO DAILY 10/28/15 [History Confirmed 01/13/18] Simvastatin [Zocor] 20 mg PO QHS 10/28/15 [History Confirmed 01/13/18] Citalopram Hydrobromide [Citalopram HBr] 40 mg PO DAILY 01/03/18 [History Confirmed 01/13/18] Amlodipine [Norvasc] 10 mg PO DAILY #30 tab 01/08/18 [Rx Confirmed 01/13/18] Ergocalciferol [Vitamin D] 50,000 unit PO Q7D cap 01/08/18 [Rx Confirmed 01/13/18] HydrALAZINE [Apresoline] 25 mg PO TID #90 tab 01/08/18 [Rx Confirmed 01/13/18] Ondansetron HCl [Zofran] 4 mg PO Q6H PRN PRN #8 tab 01/08/18 [Rx Confirmed 01/13/18] Sevelamer Carbonate [Renvela] 800 mg PO TID #90 tab 01/08/18 [Rx Confirmed 01/13/18] PFSH Medical History ELMO (acute kidney injury) (Acute) Hyperkalemia (Acute) Hyperlipidemia (Chronic) Hypothyroidism (Chronic) Hypertension (Chronic) Type II diabetes mellitus (Chronic) Community acquired pneumonia (Acute) Surgical History H/O hernia repair (Acute) S/P nasal surgery (Acute) Family History Father No problems noted. Social History Smoking Status: Never smoker alcohol intake: never HPI HPI HPI: ROBERT MCCRARY, is a 57 M I am seeing for acute renal failure. Patient states for approximately 3 months he has been feeling unwell. He states last month he had what he thought was flu-like symptoms. He notes currently he is living with his wcjvai-qm-aqu and has been in and out of hospitals with her. He notes he left his health care go. Patient states on 01/03/18, he was at work when his boss told him he looked yellow and unwell. Patient contacted his PCP, Dr. Reveles, who ordered lab work which then lead to the patient's hospitalization. Patient noted his creatinine was 9.91. Dr. Blakely was consulted in the hospital. Patient noted at the time of hospitalization it was decided between the patient and Dr. blakely that they would let nature take its course to see if the creatinine would correct itself. Patient had repeat labs today noting the creatinine was increased to 10.2 and urgent referral to our office took place for tunneled dialysis catheter placement. Patient notes history of diabetes type 2 which he was taking Metformin. All diabetes medications were stopped upon discharge from the hospital on 01/08. Patient noted his previous HgbA1C was 9 last Jun 2017. Patient notes his PCP manages his diabetes. Patient denies previous myocardial infarction, stroke, blood clots. He denies previous clavicle fracture or central line placement. Patient notes a history of sleep apnea which he wears a CPAP machine every night. Only surgery was hernia [address] Fuentes. ROS General General: Yes weight change and fatigue; no appetite, colon cancer, breast cancer or weakness HEENT HEENT: No difficulty swallowing, eye injury, eye surgery, swollen glands or hoarseness Endo Endocrine: Yes thyroid disease and diabetes mellitus; no thyroid cancer, Hair loss, heat intolerance or cold intolerance Skin Skin: No rash or changing moles Breast Breast: No left breast lump, right breast lump, nipple discharge, breast pain, abnormal mammogram, abnormal US or breast enlargement Musc Musculoskeletal: No back problems, arthritis, rheumatoid arthritis, gout or joint pain Cardio Cardiovascular: Yes high blood pressure; no murmur, pacemaker, heart disease, atrial fibrillation, heart attack, heart stent, palpitations, shortness of breat with exertion or chest pain Psych Psychiatric: No depression, anxiety or hearing voices Resp Respiratory: Yes shortness of breath, Yes sleep apnea, No cough, No COPD, No asthma, No emphysema, No wheezing Gastro Gastrointestinal: Yes nausea or vomiting, No abdominal pain, No diarrhea, No constipation, No blood in stool, No acid reflux, No hemorrhoids, No ulcers, No gallbladder problem, No black,tarry stools Adrian Hematologic: No blood thinners, No blood disorders, No bleeding, No anemia, No blood clots Neuro Neurologic: No system reviewed and no additional complaints, except as docu, No as per HPI, No abnormal walking, No abnormal hearing, No abnormal movements, No abnormal speech, No behavioral changes, No burning sensations, No confusion, No seizure-like activity, No unsteadiness, No dizziness, No localized weakness, No frequent falls, No headache(s), No lack of coordination, No loss of vision, No memory loss, No numbness, No other visual disturbances, No radiating pain, No restless legs, No sensory deficit, No fainting, No tingling, No tremor(s), No weakness, No other Exam Const General: cooperative, comfortable, no acute distress HENMT Head: normal to inspection Neck Neck: normal visual inspection Neck mass: No Chest Breast Palpation: No nipple discharge Resp Effort AND Inspection: normal respiratory effort Auscultation: clear to auscultation bilaterally Cardio Rate: regular rate Rhythm: regular rhythm Heart Sounds: no murmurs Bruits: no carotid bruits GI Inspection: normal to inspection Palpation: soft Auscultation: normal bowel sounds Skin General: dry skin, jaundice (slightly) Neuro Cranial Nerves: CN's II-XI intact bilaterally Extrem General: normal to inspection Psych Appearance: grossly normal Affect: labile affect Speech and Movement: speech and movement normal Assessment AND Plan Problems 1. Acute renal failure, unspecified acute renal failure type N17.[address] Walker has also evaluated this patient. Dr. Walker will plan to perform a right chest tunneled dialysis catheter placement. Procedure details, risks and benefits have been explained to the patient. Patient has had the opportunity to ask and have questions answered. Patient verbally agrees to proceed with the proposed procedure. Patient has been instructed NPO status after midnight. He is to take Hydralazine with small sip of water in the morning. No other medications. He has been instructed on arrival time of 0800. Patient will also need vein mapping and follow-up appointment with Dr. Walker for fistula placement. Order will be placed. Coding Level of Care Code Off vis,est,level 4 Diagnoses Acute renal failure, unspecified acute renal failure type N17.9 Acute renal failure type: unspecified 01/13/18 1600 <Electronically signed by Tamera Gimenez PA-C> Date Tamera Ferris Signature: Date (if applicable) CC: Vannessa Blakely DO; Abran Reveles MD CBC-COMPLETE BLOOD CNT Collected: 01/13/2018 Status: F Source: [place] NO DIFF 10:08 AM [facility] [place] TYPE CODE TESTS RESULT OUT OF RANGE REFERENCE UNITS LAB L100.1000 4.4-11.0 K/mm3 High WBC 11.1 LAB L100.1200 4.6-6.2 M/mm3 Low RBC 2.80 LAB L100.1300 13.0-16.5 g/dl Low HGB 7.5 LAB L100.1400 40-54 % Low HCT 24.1 LAB L100.1500 80-94 fL Normal MCV 86.1 LAB L100.1600 27.0-32.0 pg Low MCH 26.8 LAB L100.1700 32-36 g/gl Low MCHC 31.1 LAB L100.1810 11.6-14.6 % Normal RDW CV 13.3 LAB L100.1820 35.1-43.9 fl Normal RDW SD 40.3 LAB L100.1900 150-450 K/mm3 Normal PLT 400 LAB L100.2000 6.2-12.0 fl Normal MPV 9.4 Performed By: #### L100.0500 #### [facility] [address] [place], [place], [id number] PROTHROMBIN TIME W/INR Collected: 01/13/2018 Status: F Source: [place] 10:08 AM [facility] [place] TYPE CODE TESTS RESULT OUT OF RANGE REFERENCE UNITS LAB L300.4150 11.7-14.9 SECONDS High PROTIME 15.6 LAB L300.4200 Normal INR 1.3 Performed By: #### L300.3900, L300.4310 #### [facility] [address] [place], [place], [address] PARTIAL THROMBOPLAST Collected: 01/13/2018 Status: F Source: [place] TIME 10:08 AM [facility] [place] [facility] TYPE CODE TESTS RESULT OUT OF REFERENCE UNITS RANGE LAB L300.4310 24.1-36.2 Seconds High PTT 41.1 Performed By: #### L300.3900, L300.4310 #### [facility] [address] [place], [address] RENAL PROFILE Collected: 01/13/2018 Status: F Source: [place] 10:08 AM [facility] [place] [facility] TYPE CODE TESTS RESULT OUT OF RANGE REFERENCE UNITS LAB L501.0100 74-106 mg/dL High GLU 206 Result Comment: Glucose result greater than or equal to 200 mg/dL suggests DIABETES MELLITUS per A.D.A. criteria. Please note revised GLUCOSE reference range effective 2017. LAB L501.1000 7-18 mg/dL High BUN 86 LAB L501.1100 0.70-1.30 mg/dL High alert CREAT,SERUM 10.20 Result Comment: Critical Result(s) Called at: 11:53:02 01/13/2018 by: Elina Fletcher The validity of the calculated GFR AND GFRAA in patients over 70 years has not been determined. Clinical correlation is essential. LAB L501.1110 >60 mL/min Low EST GFR 6 Result Comment: Non- GFR Calc LAB L501.1115 >60 mL/min Low EST GFR - AA 7 Result Comment: GFR Calc LAB L501.1300 10-20 RATIO Low BUN/CRE 8.4 LAB L501.1800 3.2-5.0 g/dL Low ALB 2.8 LAB L501.2200 8.5-10.1 mg/dL Low CA 8.4 LAB L501.2300 2.5-4.9 mg/dL High PHOS 6.3 LAB L501.5300 136-145 mmol/L Low NA 135 LAB L501.5600 3.5-5.1 mmol/L Normal K 4.3 LAB L501.5900 98-107 mmol/L Normal CL 101 LAB L501.6100 21.0-32.0 mmol/L Normal CO2 22.0 Performed By: #### L500.3600 #### [facility] [address] [place], [address] HEPATITIS ABC PROFILE Collected: 01/13/2018 Status: F Source: [place] 10:08 AM [facility] [place] [facility] TYPE CODE TESTS RESULT OUT OF REFERENCE UNITS RANGE LAB L3100.0200 Negative High HEP A IgM Positive 6734 Result Comment: RESULTS CALLED TO DAGO DE LA PAZ 01/15/18 1441 Keisha Boothe. REPORT READ BACK BY SAME. LAB L3100.0300 Negative HEP A Normal AB,T.6726 Negative LAB L3100.0400 Negative HB Normal SURF AG Negative LAB L3100.0440 Negative HB Normal CORE [id number] Negative LAB L3100.0460 Negative HEP B Normal CORE,TOT Negative LAB L3100.0510 . Hep B Normal Rajeev AB Non Reactive Result Comment: Non Reactive: Inconsistent with immunity, less than 10 mIU/mL Reactive: Consistent with immunity, greater than 9.9 mIU/mL LAB L3100.0750 0.0-0.9 s/co ratio Normal HCV Ab 0.1 LAB L3100.0765 . Normal COMMENT Comment Result Comment: Non reactive HCV antibody screen is consistent with no HCV infection, unless recent infection is suspected or other evidence exists to indicate HCV infection. Performed at: [facility] [id number] Hotel Server: Mitchell Hale PhD, Phone: [phone] Performed By: #### L3000.0700 #### [facility] (refer to report for specific site) refer to report for address and phone number CBC-COMPLETE BLOOD CNT Collected: 01/10/2018 Status: F Source: [place] NO DIFF 9:51 AM [facility] [place] [facility] TYPE CODE TESTS RESULT OUT OF RANGE REFERENCE UNITS LAB L100.1000 4.4-11.0 K/mm3 Normal WBC 10.7 LAB L100.1200 4.6-6.2 M/mm3 Low RBC 2.87 LAB L100.1300 13.0-16.5 g/dl Low HGB 7.8 LAB L100.1400 40-54 % Low HCT 24.7 LAB L100.1500 80-94 fL Normal MCV 86.1 LAB L100.1600 27.0-32.0 pg Normal MCH 27.2 LAB L100.1700 32-36 g/gl Low MCHC 31.6 LAB L100.1810 11.6-14.6 % Normal RDW CV 13.0 LAB L100.1820 35.1-43.9 fl Normal RDW SD 38.7 LAB L100.1900 150-450 K/mm3 Normal PLT 395 LAB L100.2000 6.2-12.0 fl Normal MPV 9.2 Performed By: #### L100.0500 #### [facility] [address] [place], [address] RENAL PROFILE Collected: 01/10/2018 Status: F Source: [place] 9:51 AM [facility] [place] [facility] TYPE CODE TESTS RESULT OUT OF RANGE REFERENCE UNITS LAB L501.0100 74-106 mg/dL High GLU 110 Result Comment: Fasting Glucose result from 100 to 125 mg/dL suggests IMPAIRED HOMEOSTASIS per A.D.A. criteria. Please note revised GLUCOSE reference range effective 2017. LAB L501.1000 7-18 mg/dL High BUN 84 LAB L501.1100 0.70-1.30 mg/dL High alert CREAT,SERUM 9.13 Result Comment: Critical Result(s) Called at: 11:32:30 01/10/2018 by: Lyle Ames TO NILA KUN The validity of the calculated GFR AND GFRAA in patients over 70 years has not been determined. Clinical correlation is essential. LAB L501.1110 >60 mL/min Low EST GFR 6 Result Comment: Non- GFR Calc LAB L501.1115 >60 mL/min Low EST GFR - AA 8 Result Comment: GFR Calc LAB L501.1300 10-20 RATIO Low BUN/CRE 9.2 LAB L501.1800 3.2-5.0 g/dL Low ALB 2.8 LAB L501.2200 8.5-10.1 mg/dL Normal CA 8.6 LAB L501.2300 2.5-4.9 mg/dL High PHOS 5.7 LAB L501.5300 136-145 mmol/L Normal NA 137 LAB L501.5600 3.5-5.1 mmol/L Normal K 4.1 LAB L501.5900 98-107 mmol/L Normal CL 100 LAB L501.6100 21.0-32.0 mmol/L Normal CO2 24.0 Performed By: #### L500.3600 #### [facility] [address] [place], [address] DISCHARGE SUMMARY Observed: 01/08/2018 Status: F Source: [place] 3:54 PM [facility] [place] Medical Records Department [address] [place] [address] Discharge Summary 01/08/18 1354 MR#: [id number] Acct: [id number] Name: ROBERT MCCRARY Rep #: [id number] : 1960 57 From: Lance WASHINGTON PCP: Abran Reveles MD Status: DIS IN Y Location: HI3 [id number] <Lance Hernandez - Last Filed: 01/08/18 13:54> Discharge Date and Diagnosis Date of Admission: 01/03/18 Date of Discharge: 01/08/18 - Primary Discharge Diagnosis Active and Suspected Problems ELMO (acute kidney injury) (Acute) Hyperkalemia (Acute) Normal anion gap metabolic acidosis DMt2 HTN Hyperphosphatemia Hypothyroidism Microcytic anemia Anxiety/Depression HLD DAVID - Secondary Discharge Diagnosis Chronic Problems Hyperlipidemia (Chronic) Hypothyroidism (Chronic) Hypertension (Chronic) Type II diabetes mellitus (Chronic) Hospital Course and Treatment Imaging Results: US/Kidney and Bladder IMPRESSION: Normal ultrasound of the kidneys and urinary bladder. Consultations: Vannessa Blakely nephrology Operations: None Procedures: None Summary of Care Provided: Physical exam on day of discharge: See daily progress note Hospital course The patient is a 57 year old M with a history of type 2 diabetes, hypothyroidism, hyperlipidemia, hypertension, anxiety and depression who presented to the hospital with generalized malaise for about 1 month, with multiple episodes of nausea and vomiting. He was found to have severely elevated BUN and creatinine with BUN of 95 and creatinine of 9.91 with no history of renal dysfunction. He was admitted to the hospital for acute kidney failure and Dr. Vannessa Blakely from nephrology was consulted. He had a renal ultrasound which was negative. He was placed on IV fluids and supportive care. His metformin was held, his insulin was also held as he was hypoglycemic on presentation. His creatinine was slow to improve on IV fluids. He was given multiple rounds of Kayexalate for hyperkalemia. He was started on Renvela for hyperphosphatemia as well. He was felt to have normal anion gap metabolic acidosis and was placed on a bicarb drip. He also had significant anemia with poor iron levels, TIBC, and binding capacity, he was given 1 unit of packed red blood cells during his stay and 3 doses of Venofer, 1 dose of EPO. His symptoms improved. He had intermittent episodes of nausea and vomiting. He is maintained on IV fluids for several days with gradually improving renal function. He maintained good urinary output throughout his stay. He was not felt to require dialysis at this time despite his severely elevated BUN and creatinine. He had poorly controlled hypertension and was started on hydralazine and Norvasc while he was here, his lisinopril was discontinued due to his worsening renal failure. He was maintained on only sliding scale insulin and he had good glycemic control without his home Levemir or metformin. He was taken off IV fluids and his renal function remained stable and his urinary output remained stable. He had no further nausea or vomiting, and it was decided that he would be discharged home with close follow-up with nephrology in 1 week, he will need to have his BMP drawn as directed by nephrology prior to his appointment. At this time we will not restart his diabetic medications and have him stick to a low-carb diet and follow-up as an outpatient. He was written for Norvasc, hydralazine, Renvela. He is discharged home in stable condition. This patient was seen by Lance Hernandez PA-C under the supervision of Doctor Andressa. [] Discharge Diet: 1800 Calorie Control Diet Discharge Activity: Return to Normal Activity Home Medications: Medications to take at Discharge Levothyroxine [Synthroid] 150 mcg PO DAILY 10/28/15 Simvastatin [Zocor] 20 mg PO QHS 10/28/15 Citalopram Hydrobromide [Citalopram HBr] 40 mg PO DAILY 01/03/18 Amlodipine [Norvasc] 10 mg PO DAILY #30 tab 01/08/18 Ergocalciferol [Vitamin D] 50,000 unit PO Q7D capsule 01/08/18 HydrALAZINE [Apresoline] 25 mg PO TID #90 tab 01/08/18 Ondansetron HCl [Zofran] 4 mg PO Q6H PRN PRN #8 tab 01/08/18 Sevelamer Carbonate [Renvela] 800 mg PO TID #90 tab 01/08/18 Following Prescrptions Were Given to Patient: Ondansetron HCl [Zofran] 4 mg PO Q6H PRN PRN #8 tab PRN Reason: Nausea Amlodipine [Norvasc] 10 mg PO DAILY #30 tab HydrALAZINE [Apresoline] 25 mg PO TID #90 tab Sevelamer Carbonate [Renvela] 800 mg PO TID #90 tab Primary Care Physician: Abran Reveles MD [Primary Care Provider] - Please follow up with your Primary Care Physician in: 2 weeks Please Follow Up With: Vannessa Blakely DO When: 1 week Disposition: Home Minutes spent on discharge:: 35 Patient Condition:: Stable Meaningful Use Info Meaningful Use Diagnoses (Choose all that apply): None applicable <Liam Crisostomo - Last Filed: 01/08/18 15:53> Discharge Date and Diagnosis - Secondary Discharge Diagnosis Chronic Problems Hyperlipidemia (Chronic) Hypothyroidism (Chronic) Hypertension (Chronic) Type II diabetes mellitus (Chronic) Hospital Course and Treatment Operations: None Procedures: None Summary of Care Provided: Patient seen and examined in family. Agree with the above note by the physician clinical project assistant. 37-year-old white male presents with weakness and malaise. Patient came with a creatinine of 9.91. Unclear etiology of his renal failure. Patient's fractional excretion of sodium was 9%. Both be prerenal and possibly acute tubular necrosis. Patient was seen in consultation by Dr. Blakely, of nephrology, who recommended conservative management. Patient was on IV fluids and his creatinine did improve. His creatinine today was 8.31. Patient will have outpatient lab work and follow-up with nephrology as outpatient. It is possible patient may need a biopsy but that can be determined at a later time depending on how his kidney function improves. [] Discharge Diet: 1800 Calorie Control Diet Discharge Activity: Return to Normal Activity Disposition: Home Patient Condition:: Stable Meaningful Use Info Meaningful Use Diagnoses (Choose all that apply): None applicable Code Visit Inpatient E AND M: 06985 Disch Hosp 01/08/18 7567 <Electronically signed by Lance WASHINGTON> Date Lance WASHINGTON 01/08/18 1554<Electronically signed by Liam Crisostomo DO> Cosigner Signature (if applicable): Date Liam Crisostomo DO CC: PADMINI Hernandez; Vannessa Blakely DO; Liam Crisostomo DO; Abran Reveles MD Signed DISCHARGE INSTRUCTION Observed: 01/08/2018 Status: F Source: [place] 1:53 PM [facility] [place] [facility] Medical Records Department [address] [place] [address] Instructions for Home/Discharge Instructions 01/08/18 1351 MR#: [id number] Acct: [id number] Name: ROBERT MCCRARY Rep #: [id number] : 1960 57 From: Lance WASHINGTON PCP: Abran Reveles MD Status: ADM IN - Discharge Diagnoses Current Active Problems: Current Active and Chronic Problems ELMO (acute kidney injury) (Acute) Hyperkalemia (Acute) You will use the following diet at home:: Calorie/Carbohydrate Controlled (specify 1200, 1400, etc) - 1800 linda day Your food should be the consistency of: Regular Your liquids should be the consistency of: Regular/Thin Discharge Activity: Return to Normal Activity Allergies/Adverse Reactions: Allergies No Known Allergies Allergy (Verified 10/28/15 18:31) Medications to take at Discharge Levothyroxine [Synthroid] 150 mcg PO DAILY 10/28/15 Simvastatin [Zocor] 20 mg PO QHS 10/28/15 Citalopram Hydrobromide [Citalopram HBr] 40 mg PO DAILY 01/03/18 Amlodipine [Norvasc] 10 mg PO DAILY #30 tab 01/08/18 Ergocalciferol [Vitamin D] 50,000 unit PO Q7D capsule 01/08/18 HydrALAZINE [Apresoline] 25 mg PO TID #90 tab 01/08/18 Sevelamer Carbonate [Renvela] 800 mg PO TID #90 tab 01/08/18 The following prescriptions were given: Amlodipine [Norvasc] 10 mg PO DAILY #30 tab HydrALAZINE [Apresoline] 25 mg PO TID #90 tab Sevelamer Carbonate [Renvela] 800 mg PO TID #90 tab Primary Care Physician: Abran Reveles MD [Primary Care Provider] - Please follow up with your Primary Care Physician in: 2 weeks Please Follow Up With: Vannessa Blakely DO When: 1 week Proposed Discharge Date: 01/08/18 01/08/18 1353 <Electronically signed by Lance WASHINGTON> Date Lance WASHINGTON CC: Vannessa Blakely DO; Abran Reveles MD BEDSIDE GLUCOSE Collected: 01/08/2018 Status: F Source: [place] 11:45 AM [facility] [place] TYPE CODE TESTS RESULT OUT OF REFERENCE UNITS RANGE LAB L501.080 70-110 mg/dL High BEDSIDE GLU 161 Result Comment: MANAGEMENT OF PATIENT CARE PER NURSING PROTOCOL Performed By: #### L501.080 #### [facility] Point of Care [address] [facility] [place], [place] [address] BEDSIDE GLUCOSE Collected: 01/08/2018 Status: F Source: [place] 6:40 AM [facility] [place] [facility] TYPE CODE TESTS RESULT OUT OF REFERENCE UNITS RANGE LAB L501.080 70-110 mg/dL High BEDSIDE GLU 117 Result Comment: MANAGEMENT OF PATIENT CARE PER NURSING PROTOCOL Performed By: #### L501.080 #### [facility] Point of Care [address] [place] [address] CBC W/DIFF, AUTOMATED Collected: 01/08/2018 Status: F Source: [place] 5:05 AM [facility] [place] [facility] TYPE CODE TESTS RESULT OUT OF RANGE REFERENCE UNITS LAB L100.1000 4.4-11.0 K/mm3 Normal WBC 9.5 LAB L100.1200 4.6-6.2 M/mm3 Low RBC 2.69 LAB L100.1300 13.0-16.5 g/dl Low HGB 7.2 LAB L100.1400 40-54 % Low HCT 22.7 LAB L100.1500 80-94 fL Normal MCV 84.4 LAB L100.1600 27.0-32.0 pg Low MCH 26.8 LAB L100.1700 32-36 g/gl Low MCHC 31.7 LAB L100.1810 11.6-14.6 % Normal RDW CV 12.7 LAB L100.1820 35.1-43.9 fl Normal RDW SD 37.1 LAB L100.1900 150-450 K/mm3 Normal PLT 367 LAB L100.2000 6.2-12.0 fl Normal MPV 9.1 LAB L100.2100 47-70 % High NEUT% 78.9 LAB L100.2200 19-41 % Low LY% 10.0 LAB L100.2300 0-10 % Normal MONO% 8.9 LAB L100.2400 0-5 % Normal EO% 1.7 LAB L100.2500 0-1 % Normal BASO% 0.2 LAB L100.2550 0.0-0.9 % Normal IM GRAN % 0.300 Result Comment: IG% - Immature Granulocytes (promyelocytes, myelocytes and metamyelocytes) > 1% indicates that a LEFT SHIFT is Present. LAB L100.2620 2.0-7.7 X10 3/uL Normal Absolute Neut 7.5 LAB L100.2720 0.83-4.51 X10 3/ul Normal Absolute Lymph 0.95 Performed By: #### L100.0100 #### [facility] [address] [facility]. [place], [place], [address] RENAL PROFILE Collected: 01/08/2018 Status: F Source: [place] 5:05 AM [facility] [place] [facility] TYPE CODE TESTS RESULT OUT OF RANGE REFERENCE UNITS LAB L501.0100 74-106 mg/dL Normal GLU 98 Result Comment: Please note revised GLUCOSE reference range effective 2017. LAB L501.1000 7-18 mg/dL High BUN 79 LAB L501.1100 0.70-1.30 mg/dL High alert CREAT,SERUM 8.31 Result Comment: Critical Result(s) Called at: 07:23:30 01/08/2018 by: Elina Bell to [facility] The validity of the calculated GFR AND GFRAA in patients over 70 years has not been determined. Clinical correlation is essential. LAB L501.1110 >60 mL/min Low EST GFR 7 Result Comment: Non- GFR Calc LAB L501.1115 >60 mL/min Low EST GFR - AA 9 Result Comment: GFR Calc LAB L501.1255 ml/min Normal Estimated CRCL 10.37 LAB L501.1300 10-20 RATIO Low BUN/CRE 9.5 LAB L501.1800 3.2-5. g/dL Low 0 ALB 2.4 LAB L501.2200 8.5-10 mg/dL Low .1 CA 8.3 LAB L501.2300 2.5-4. mg/dL High 9 PHOS 5.0 LAB L501.5300 136-14 mmol/L Normal 5 NA 139 LAB L501.5600 3.5-5. mmol/L Normal 1 K 4.1 LAB L501.5900 98-107 mmol/L Normal CL 103 LAB L501.6100 21.0-3 mmol/L Normal 2.0 CO2 21.0 Performed By: #### L500.3600 #### [facility] [address] [facility] [facility] [id number] BEDSIDE GLUCOSE Collected: 01/07/2018 Status: F Source: [place] 9:48 PM [facility] [place] [facility] TYPE CODE TESTS RESULT OUT OF REFERENCE UNITS RANGE LAB L501.080 70-110 mg/dL High BEDSIDE GLU 129 Result Comment: MANAGEMENT OF PATIENT CARE PER NURSING PROTOCOL Performed By: #### L501.080 #### [facility] Point of Care [address] [facility] [place] [address] BEDSIDE GLUCOSE Collected: 01/07/2018 Status: F Source: [place] 4:30 PM [facility] [place] [facility] TYPE CODE TESTS RESULT OUT OF REFERENCE UNITS RANGE LAB L501.080 70-110 mg/dL High BEDSIDE GLU 120 Result Comment: MANAGEMENT OF PATIENT CARE PER NURSING PROTOCOL Performed By: #### L501.080 #### [facility] Point of Care [address] [place] [address] BEDSIDE GLUCOSE Collected: 01/07/2018 Status: F Source: [place] 11:58 AM [facility] [place] [facility] TYPE CODE TESTS RESULT OUT OF REFERENCE UNITS RANGE LAB L501.080 70-110 mg/dL High BEDSIDE GLU 162 Result Comment: MANAGEMENT OF PATIENT CARE PER NURSING PROTOCOL Performed By: #### L501.080 #### [facility] Point of Care [address] [place], [place] [id number] BEDSIDE GLUCOSE Collected: 01/07/2018 Status: F Source: [place] 6:36 AM [facility] [place] [facility] TYPE CODE TESTS RESULT OUT OF RANGE REFERENCE UNITS LAB L501.080 70-110 mg/dL Normal BEDSIDE GLU 107 Result Comment: MANAGEMENT OF PATIENT CARE PER NURSING PROTOCOL Performed By: #### L501.080 #### [facility] Point of Care [address] [facility] [place], [place] [address] CBC W/DIFF, AUTOMATED Collected: 01/07/2018 Status: F Source: [place] 5:12 AM [facility] [place] [facility] TYPE CODE TESTS RESULT OUT OF RANGE REFERENCE UNITS LAB L100.1000 4.4-11.0 K/mm3 Normal WBC 8.2 LAB L100.1200 4.6-6.2 M/mm3 Low RBC 2.60 LAB L100.1300 13.0-16.5 g/dl Low HGB 6.9 LAB L100.1400 40-54 % Low HCT 21.8 LAB L100.1500 80-94 fL Normal MCV 83.8 LAB L100.1600 27.0-32.0 pg Low MCH 26.5 LAB L100.1700 32-36 g/gl Low MCHC 31.7 LAB L100.1810 11.6-14.6 % Normal RDW CV 12.4 LAB L100.1820 35.1-43.9 fl Normal RDW SD 35.8 LAB L100.1900 150-450 K/mm3 Normal PLT 342 LAB L100.2000 6.2-12.0 fl Normal MPV 8.9 LAB L100.2100 47-70 % High NEUT% 80.6 LAB L100.2200 19-41 % Low LY% 9.0 LAB L100.2300 0-10 % Normal MONO% 9.0 LAB L100.2400 0-5 % Normal EO% 1.0 LAB L100.2500 0-1 % Normal BASO% 0.2 LAB L100.2550 0.0-0.9 % Normal IM GRAN % 0.200 Result Comment: IG% - Immature Granulocytes (promyelocytes, myelocytes and metamyelocytes) > 1% indicates that a LEFT SHIFT is Present. LAB L100.2620 2.0-7.7 X10 3/uL Normal Absolute Neut 6.6 LAB L100.2720 0.83-4.51 X10 3/ul Low Absolute Lymph 0.73 Performed By: #### L100.0100, L500.3600 #### [facility] [address] [place], [address] RENAL PROFILE Collected: 01/07/2018 Status: F Source: [place] 5:12 AM [facility] [place] TYPE CODE TESTS RESULT OUT OF RANGE REFERENCE UNITS LAB L501.0100 74-106 mg/dL Normal GLU 101 Result Comment: Fasting Glucose result from 100 to 125 mg/dL suggests IMPAIRED HOMEOSTASIS per A.D.A. criteria. Please note revised GLUCOSE reference range effective 2017. LAB L501.1000 7-18 mg/dL High BUN 86 LAB L501.1100 0.70-1.30 mg/dL High alert CREAT,SERUM 8.37 Result Comment: Critical Result(s) Called at: 06:02:54 01/07/2018 by: ZABRINA Orozco RN (MS3) The validity of the calculated GFR AND GFRAA in patients over 70 years has not been determined. Clinical correlation is essential. LAB L501.1110 >60 mL/min Low EST GFR 7 Result Comment: Non- GFR Calc LAB L501.1115 >60 mL/min Low EST GFR - AA 9 Result Comment: GFR Calc LAB L501.1255 ml/min Normal Estimated CRCL 10.30 LAB L501.1300 10-20 RATIO Normal BUN/CRE 10.3 LAB L501.1800 3.2-5. g/dL Low 0 ALB 2.4 LAB L501.2200 8.5-10 mg/dL Low .1 CA 8.2 LAB L501.2300 2.5-4. mg/dL High 9 PHOS 5.5 LAB L501.5300 136-14 mmol/L Normal 5 NA 138 LAB L501.5600 3.5-5. mmol/L Normal 1 K 3.9 LAB L501.5900 98-107 mmol/L Normal CL 103 LAB L501.6100 21.0-3 mmol/L Normal 2.0 CO2 24.0 Performed By: #### L100.0100, L500.3600 #### [facility] [address] [place], [address] BEDSIDE GLUCOSE Collected: 01/06/2018 Status: F Source: [place] 9:04 PM [facility] [place] [facility] TYPE CODE TESTS RESULT OUT OF REFERENCE UNITS RANGE LAB L501.080 70-110 mg/dL High BEDSIDE GLU 122 Result Comment: MANAGEMENT OF PATIENT CARE PER NURSING PROTOCOL Performed By: #### L501.080 #### [facility] Point of Care [address] [place] [address] BEDSIDE GLUCOSE Collected: 01/06/2018 Status: F Source: [place] 5:03 PM [facility] [place] [facility] TYPE CODE TESTS RESULT OUT OF REFERENCE UNITS RANGE LAB L501.080 70-110 mg/dL High BEDSIDE GLU 118 Result Comment: MANAGEMENT OF PATIENT CARE PER NURSING PROTOCOL Performed By: #### L501.080 #### [facility] Point of Care [address] [place] [address] 12 LEAD ELECTROCARDIOGRAM Observed: 01/06/2018 Status: F Source: [place] 1:07 PM [facility] Cardiovascular Services [address] [place] [address] 12 Lead EKG 01/03/18 1318 MR#: [id number] Acct: [id number] Name: ROBERT MCCRARY Rep #: [id number] : 1960 57 From: Deven Hess MD Attending Dr: Sae Sharp DO Status: ADM IN Ordering Dr: Jarret Bhatt MD Date: 01/03/18 Location: HI3 Sex: M C Admitted: 01/03/18 Test Reason : VOMITING Blood Pressure : / mmHG Vent. Rate : 072 BPM Atrial Rate : 072 BPM P-R Int : 122 ms QRS Dur : 074 ms QT Int : 412 ms P-R-T Axes : 029 019 046 degrees QTc Int : 451 ms Normal sinus rhythm Normal ECG Confirmed by ANABELL COLON, DEVEN ([id number]), editor at large HARPAL REVELES ([id number]) on 01/06/2018 1:07:03 PM Referred By: VERONICA Confirmed By:DEVEN HESS MD 01/06/18 1307 Date Deven Hess MD CC: Abran Reveles MD; Jarret Bhatt MD Signed BEDSIDE GLUCOSE Collected: 01/06/2018 Status: F Source: [place] 11:50 AM [facility] [place] [facility] TYPE CODE TESTS RESULT OUT OF REFERENCE UNITS RANGE LAB L501.080 70-110 mg/dL High BEDSIDE GLU 123 Result Comment: MANAGEMENT OF PATIENT CARE PER NURSING PROTOCOL Performed By: #### L501.080 #### [facility] Point of Care [address] [place] [address] BEDSIDE GLUCOSE Collected: 01/06/2018 Status: F Source: [place] 6:37 AM [facility] [place] [facility] TYPE CODE TESTS RESULT OUT OF REFERENCE UNITS RANGE LAB L501.080 70-110 mg/dL High BEDSIDE GLU 140 Result Comment: MANAGEMENT OF PATIENT CARE PER NURSING PROTOCOL Performed By: #### L501.080 #### [facility] Point of Care [address] [place] [address] CBC W/DIFF, AUTOMATED Collected: 01/06/2018 Status: F Source: [place] 5:15 AM [facility] [place] [facility] TYPE CODE TESTS RESULT OUT OF RANGE REFERENCE UNITS LAB L100.1000 4.4-11.0 K/mm3 Normal WBC 9.2 LAB L100.1200 4.6-6.2 M/mm3 Low RBC 2.61 LAB L100.1300 13.0-16.5 g/dl Low HGB 7.0 LAB L100.1400 40-54 % Low HCT 21.7 LAB L100.1500 80-94 fL Normal MCV 83.1 LAB L100.1600 27.0-32.0 pg Low MCH 26.8 LAB L100.1700 32-36 g/gl Normal MCHC 32.3 LAB L100.1810 11.6-14.6 % Normal RDW CV 12.1 LAB L100.1820 35.1-43.9 fl Normal RDW SD 35.3 LAB L100.1900 150-450 K/mm3 Normal PLT 355 LAB L100.2000 6.2-12.0 fl Normal MPV 8.7 LAB L100.2100 47-70 % High NEUT% 82.7 LAB L100.2200 19-41 % Low LY% 7.8 LAB L100.2300 0-10 % Normal MONO% 7.8 LAB L100.2400 0-5 % Normal EO% 1.3 LAB L100.2500 0-1 % Normal BASO% 0.2 LAB L100.2550 0.0-0.9 % Normal IM GRAN % 0.200 Result Comment: IG% - Immature Granulocytes (promyelocytes, myelocytes and metamyelocytes) > 1% indicates that a LEFT SHIFT is Present. LAB L100.2620 2.0-7.7 X10 3/uL Normal Absolute Neut 7.6 LAB L100.2720 0.83-4.51 X10 3/ul Low Absolute Lymph 0.72 Performed By: #### L100.0100 #### [facility] [address] [place], [place], [id number] RENAL PROFILE Collected: 01/06/2018 Status: F Source: [place] 5:15 AM [facility] [place] [facility] TYPE CODE TESTS RESULT OUT OF RANGE REFERENCE UNITS LAB L501.0100 74-106 mg/dL Normal GLU 95 Result Comment: Please note revised GLUCOSE reference range effective 2017. LAB L501.1000 7-18 mg/dL High BUN 92 LAB L501.1100 0.70-1.30 mg/dL High alert CREAT,SERUM 8.63 Result Comment: Critical Result(s) Called at: 05:50:35 01/06/2018 by: ZABRINA KATZ RN MS3 The validity of the calculated GFR AND GFRAA in patients over 70 years has not been determined. Clinical correlation is essential. LAB L501.1110 >60 mL/min Low EST GFR 7 Result Comment: Non- GFR Calc LAB L501.1115 >60 mL/min Low EST GFR - AA 8 Result Comment: GFR Calc LAB L501.1255 ml/min Normal Estimated CRCL 9.99 LAB L501.1300 10-20 RATIO Normal BUN/CRE 10.7 LAB L501.1800 3.2-5.0 g/dL Low ALB 2.3 LAB L501.2200 8.5-10. mg/dL Low 1 CA 7.9 LAB L501.2300 2.5-4.9 mg/dL High PHOS 5.7 LAB L501.5300 136-145 mmol/L Normal NA 139 LAB L501.5600 3.5-5.1 mmol/L Normal K 4.3 LAB L501.5900 98-107 mmol/L Normal CL 106 LAB L501.6100 21.0-32 mmol/L Normal .0 CO2 21.0 Performed By: #### L500.3600 #### [facility] [address] [facility] [place], [address] BEDSIDE GLUCOSE Collected: 01/05/2018 Status: F Source: [place] 10:03 PM [facility] [place] [facility] TYPE CODE TESTS RESULT OUT OF REFERENCE UNITS RANGE LAB L501.080 70-110 mg/dL High BEDSIDE GLU 119 Result Comment: MANAGEMENT OF PATIENT CARE PER NURSING PROTOCOL Performed By: #### L501.080 #### [facility] Point of Care [address] [facility] [place] [address] BEDSIDE GLUCOSE Collected: 01/05/2018 Status: F Source: [place] 4:21 PM [facility] [place] [facility] TYPE CODE TESTS RESULT OUT OF RANGE REFERENCE UNITS LAB L501.080 70-110 mg/dL Normal BEDSIDE GLU 103 Result Comment: MANAGEMENT OF PATIENT CARE PER NURSING PROTOCOL Performed By: #### L501.080 #### [facility] Point of Care [address] [place] [address] BEDSIDE GLUCOSE Collected: 01/05/2018 Status: F Source: [place] 11:20 AM [facility] [place] [facility] TYPE CODE TESTS RESULT OUT OF REFERENCE UNITS RANGE LAB L501.080 70-110 mg/dL High BEDSIDE GLU 165 Result Comment: MANAGEMENT OF PATIENT CARE PER NURSING PROTOCOL Performed By: #### L501.080 #### [facility] Point of Care [address] [place] [address] CONSULTATION Observed: 01/05/2018 Status: F Source: E[place]ER[place] 8:14 AM [facility] [place] [facility] Medical Records Department [address] [place] [address] Consultation 01/03/18 1653 MR#: [id number] Acct: [id number] Name: ROBERT MCCRARY Rep #: [id number] : 1960 57 From: Vannessa Blakely DO PCP: Abran Reveles MD Status: ADM IN [place] [facility] [place] Consultation - Renal 01/03/18 PCP/ Referring MD: Requesting physician: Sae Sharp Primary care physician: Abran Reveles Reason for Consultation:: ELMO - History of Present Illness History of Present Illness: The patient is a 57 year old M with medical history for T2DM, HTN, HPL and hypothyroidism presented to the ER for not feeling well past 2 months. He has been ill with the flu but did not seek medical attention until today after his boss at work told him he looked pale and sick. He admits to nausea, vomiting, diarrhea 3 x/day with loose stools without hematochezia or melena. Denied recent antibiotic therapy. Denied hematemesis. Complained of chills without fever. Had anorexia, poor appetite and noticed orange colored urine past week with decreased urine output despite drinking fluids. Denied NSAID use. He takes lisinopril at home. He is on insulin and metformin for diabetes. He complained of weakness, lightheadedness without syncope. Had dyspnea with exertion, walking up steps. Denied chest pain, myalgias or cough. He has no prior history of kidney problems. He has a history of pneumonia 3 yrs ago. Creatinine in ER was 9.9 BUN 95 K 5.4 with NAG metabolic acidosis. Hgb low at 7.2 WBC 10.5. Stat renal US without hydronephrosis, no renal mass. Creatinine was 1.2 in 2016. - Allergies Allergies: Allergies No Known Allergies Allergy (Verified 10/28/15 18:31) - Current Medications Current Medications: Current Medications Acetaminophen (Tylenol) 650 mg PO Q6H PRN PRN PRN Reason: Mild Pain (1-3)/Temp > 100.7 F Atorvastatin Calcium (Lipitor) 10 mg PO QHS ROCKY Citalopram Hydrobromide (Celexa) 20 mg PO DAILY [facility] Dextrose (D50w Syringe) 0 gm IV X1 PRN; Protocol PRN Reason: Hypoglycemia Glucagon () 1 mg IM .X1 PRN PRN Reason: Hypoglycemia Heparin Sodium (Porcine) () 5,000 units SC BID [facility] Sodium Chloride () 1,000 mls @ 150 mls/hr IV .Q6H40M [facility] Last Admin: 01/03/18 16:21 Dose: 150 mls/hr Insulin Aspart (Novolog Flexpen ([facility])) 0 units SC ACHS ROCKY PRN Reason: Protocol Last Admin: 01/03/18 16:21 Dose: Not Given Insulin Detemir (Levemir ([facility])) 45 units SC BID [facility] Levothyroxine Sodium (Synthroid) 150 mcg PO DAILY@0600 [facility] Nutritional Formula (Lactose Free) (Glucerna Shake) 120 ml PO 4X/DAY [facility] Ondansetron HCl (Zofran) 4 mg IV Q6H PRN PRN PRN Reason: NAUSEA Sodium Chloride () 5 - 30 ml IV UD PRN PRN Reason: SALINE FLUSH - Past Medical History Past Medical History (Chronic Problems): Chronic Problems Hyperlipidemia (Chronic) Hypothyroidism (Chronic) Hypertension (Chronic) Type II diabetes mellitus (Chronic) - Past Surgical History Surgical History: - - nasal arterial cauterization - Social History Smoking Status: Never smoker Alcohol: None Drugs: None - Family History Maternal History Items: Diabetes, Heart Disease - no hx kidney disease Paternal History Items: Heart Disease Review of Systems Constitutional: Reports: Anorexia, Chills, Weakness, Fatigue. Denies: Fever Eyes: Reports: Blurred vision HEENT: Reports: Sore Throat. Denies: Head Aches Cardiovascular: Reports: Edema. Denies: Chest Pain, Syncope Gastrointestinal: Reports: Diarrhea - 3x day loose stool, Nausea, Vomiting. Denies: Abdominal Pain, Hematemesis, Hematochezia, Melena Genitourinary: Reports: - - decreased urine output, orange colored urine. Denies: Dysuria, Retention Musculoskeletal: Denies: Joint swelling Skin: Denies: Rash Neurological: Reports: - - lightheaded. Denies: Balance problems, Tremor Psychiatric: Reports: Anxiety Endocrine: Reports: Heat/ Cold Intolerance Hematologic/ Lymphatic: Reports: Anemia Patient Problems: Active and Suspected Problems ELMO (acute kidney injury) (Acute) Hyperkalemia (Acute) - Physical Exam General: Alert, Oriented x3, Cooperative, No apparent distress HEENT: PERRLA, EOMI Oral: Dry Mucosa Neck: Supple, No JVD Lungs: Clear to auscultation Cardiovascular: Regular rate, No murmurs, Murmur, No rub noted Abdomen: Bowel Sounds Present, Soft, Non Tender, Non-Distended Extremities: No edema, Peripheral Pulses Normal Skin: No rashes Musculoskeletal: No Muscle Wasting Lymphatic: No Cervical, Supraclavicular, or Inguinal Adenopathy Neurological: Cranial nerves II-XII grossly intact, - - no asterixis Psych/Mental Status: Normal Affect, Alert and oriented to time, place, person, mood and affect Vital Signs Temp Pulse Resp BP Pulse Ox 98.6 F 73 16 173/88 H 100 01/03/18 12:24 01/03/18 16:32 01/03/18 15:35 01/03/18 15:35 01/03/18 15:35 Oxygen Delivery Method Room Air Weight: 90.8 kg Body Mass Index (BMI) 28.7 Intake and Output for Last 24 Hours Output Total 350 / 350 Balance -350 / -350 Microbiology Past 72 Hours 01/03/18 16:05 Stool Occult Blood (JANEY) - Final Stool POC Glucose POC Glucose 110 Clinical Impression(s) from Imaging Studies Renal Ultrasound 01/03/18 14:07 IMPRESSION: Normal ultrasound of the kidneys and urinary bladder. Electronically Signed: Godwin Palmer MD at 15:14 EST Tel [phone], Service support , Assessment/Plan Active and Suspected Problems ELMO (acute kidney injury) (Acute) Hyperkalemia (Acute) 1. ELMO with uremic symptoms. Creatinine 9.9, baseline creatinine 1.2 in Oct 2016. UA with proteinuria. Likely has ELOM due to dehydration vs ATN. Check FeNa. Underlying diabetic nephropathy. Renal US no hydronephrosis. Discussed with patient may need dialysis if unresponsive to fluid resuscitation. Start ivf at 150cc/hr. Monitor labs daily for now. No urgency to initiate dialysis today. Hold lisinopril. Avoid nephrotoxins. Check lE, UCr, UPCR 2. NAG Metabolic acidosis likely from renal failure, GI loss. Diarrhea may be from metformin. 3. Hyperkalemia kayexalate as needed. 4. Dehydration, anorexia, nausea, vomiting from uremia. Initiate ivf. 5. T2DM on insulin. DC metformin due to renal failure. Primary service mgmt 6. HTN stable 7. Anemia check iron studies. Occult neg x1 8. Hypothyroid on replacement therapy 9. Strict I/O's, daily renal panel. 10. Check phos, vit D, PTH 01/05/1814 <Electronically signed by Vannessa Blakely DO> Date Vannessa Blakely DO Cosigner Signature (if applicable): Date CC: Vannessa Blakely DO; Abran Reveles MD Signed BEDSIDE GLUCOSE Collected: 01/05/2018 Status: F Source: [place] 6:37 AM [facility] [place] TYPE CODE TESTS RESULT OUT OF RANGE REFERENCE UNITS LAB L501.080 70-110 mg/dL Normal BEDSIDE GLU 91 Result Comment: MANAGEMENT OF PATIENT CARE PER NURSING PROTOCOL Performed By: #### L501.080 #### [facility] Laboratory Point of Care [address] [place] [address] [place], [place] [address] PROTHROMBIN TIME W/INR Collected: 01/05/2018 Status: F Source: [place]ENDLETON 5:22 AM [facility] [place] TYPE CODE TESTS RESULT OUT OF RANGE REFERENCE UNITS LAB L300.4150 11.7-14.9 SECONDS High PROTIME 15.7 LAB L300.4200 Normal INR 1.3 Performed By: #### L300.3900 #### [facility] [address] [place], [address] CBC W/DIFF, AUTOMATED Collected: 01/05/2018 Status: F Source: [place] 5:18 AM [facility] [place] TYPE CODE TESTS RESULT OUT OF RANGE REFERENCE UNITS LAB L100.1000 4.4-11.0 K/mm3 Normal WBC 9.0 LAB L100.1200 4.6-6.2 M/mm3 Low RBC 2.65 LAB L100.1300 13.0-16.5 g/dl Low HGB 7.1 LAB L100.1400 40-54 % Low HCT 22.3 LAB L100.1500 80-94 fL Normal MCV 84.2 LAB L100.1600 27.0-32.0 pg Low MCH 26.8 LAB L100.1700 32-36 g/gl Low MCHC 31.8 LAB L100.1810 11.6-14.6 % Normal RDW CV 12.3 LAB L100.1820 35.1-43.9 fl Normal RDW SD 36.6 LAB L100.1900 150-450 K/mm3 Normal PLT 354 LAB L100.2000 6.2-12.0 fl Normal MPV 9.1 LAB L100.2100 47-70 % High NEUT% 80.6 LAB L100.2200 19-41 % Low LY% 8.4 LAB L100.2300 0-10 % Normal MONO% 8.6 LAB L100.2400 0-5 % Normal EO% 1.6 LAB L100.2500 0-1 % Normal BASO% 0.6 LAB L100.2550 0.0-0.9 % Normal IM GRAN % 0.200 Result Comment: IG% - Immature Granulocytes (promyelocytes, myelocytes and metamyelocytes) > 1% indicates that a LEFT SHIFT is Present. LAB L100.2620 2.0-7.7 X10 3/uL Normal Absolute Neut 7.3 LAB L100.2720 0.83-4.51 X10 3/ul Low Absolute Lymph 0.75 Performed By: #### L100.0100 #### [facility] Laboratory [address] [facility] [address] [facility] [place], [place], [id number] BASIC METABOLIC Collected: 01/05/2018 Status: F Source: EMPERATRIZ PROFILE (BMP) 5:18 AM [facility] [place] TYPE CODE TESTS RESULT OUT OF RANGE REFERENCE UNITS LAB L501.0100 74-106 mg/dL Normal GLU 92 Result Comment: Please note revised GLUCOSE reference range effective 2017. LAB L501.1000 7-18 mg/dL High BUN 92 LAB L501.1100 0.70-1.30 mg/dL High alert CREAT,SERUM 9.05 Result Comment: Critical Result(s) Called at: 06:56:33 01/05/2018 by: Ankit to Nette PINA The validity of the calculated GFR AND GFRAA in patients over 70 years has not been determined. Clinical correlation is essential. LAB L501.1110 >60 mL/min Low EST GFR 7 Result Comment: Non- GFR Calc LAB L501.1115 >60 mL/min Low EST GFR - AA 8 Result Comment: GFR Calc LAB L501.1255 ml/min Normal Estimated CRCL 9.52 LAB L501.1300 10-20 RATIO Normal BUN/CRE 10.2 LAB L501.2200 8.5-10. mg/dL Low 1 CA 7.8 LAB L501.5300 136-145 mmol/L Normal NA 139 LAB L501.5600 3.5-5.1 mmol/L High K 5.2 LAB L501.5900 98-107 mmol/L High CL 109 LAB L501.6100 21.0-32 mmol/L Low .0 CO2 18.0 LAB L501.6200 5-15 Normal GAP 12 Performed By: #### L500.2500, L500.3600 #### [facility] [address] [facility] [place], [place], [id number] RENAL PROFILE Collected: 01/05/2018 Status: F Source: EMPERATRIZ 5:18 AM [facility] [place] TYPE CODE TESTS RESULT OUT OF RANGE REFERENCE UNITS LAB L501.1800 3.2-5.0 g/dL Low ALB 2.3 LAB L501.2300 2.5-4.9 mg/dL High PHOS 6.3 Performed By: #### L500.2500, L500.3600 #### [facility] [address] [facility] [place], [place], [address] BEDSIDE GLUCOSE Collected: 01/04/2018 Status: F Source: EMPERATRIZ 9:13 PM [facility] [place] TYPE CODE TESTS RESULT OUT OF RANGE REFERENCE UNITS LAB L501.080 70-110 mg/dL Normal BEDSIDE GLU 92 Result Comment: MANAGEMENT OF PATIENT CARE PER NURSING PROTOCOL Performed By: #### L501.080 #### [facility] Laboratory Point of Care [address] [place] [address] BASIC METABOLIC Collected: 01/04/2018 Status: F Source: EMPERATRIZ PROFILE (BMP) 7:15 PM [facility] [place] TYPE CODE TESTS RESULT OUT OF RANGE REFERENCE UNITS LAB L501.0100 74-106 mg/dL High GLU 116 Result Comment: Fasting Glucose result from 100 to 125 mg/dL suggests IMPAIRED HOMEOSTASIS per A.D.A. criteria. Please note revised GLUCOSE reference range effective 2017. LAB L501.1000 7-18 mg/dL High BUN 92 LAB L501.1100 0.70-1.30 mg/dL High alert CREAT,SERUM 9.20 Result Comment: Critical Result(s) Called at: 20:06:29 01/04/2018 by: Katty Booker to giancarlo The validity of the calculated GFR AND GFRAA in patients over 70 years has not been determined. Clinical correlation is essential. LAB L501.1110 >60 mL/min Low EST GFR 6 Result Comment: Non- GFR Calc LAB L501.1115 >60 mL/min Low EST GFR - AA 8 Result Comment: GFR Calc LAB L501.1255 ml/min Normal Estimated CRCL 9.37 LAB L501.1300 10-20 RATIO Normal BUN/CRE 10.0 LAB L501.2200 8.5-10. mg/dL Low 1 CA 7.8 LAB L501.5300 136-145 mmol/L Normal NA 139 LAB L501.5600 3.5-5.1 mmol/L High K 5.4 LAB L501.5900 98-107 mmol/L High CL 110 LAB L501.6100 21.0-32 mmol/L Low .0 CO2 17.0 LAB L501.6200 5-15 Normal GAP 12 Performed By: #### L500.2500 #### [facility] [address] [place], [place], [address] BEDSIDE GLUCOSE Collected: 01/04/2018 Status: F Source: EMPERATRIZ 5:39 PM [facility] [place] TYPE CODE TESTS RESULT OUT OF REFERENCE UNITS RANGE LAB L501.080 70-110 mg/dL High BEDSIDE GLU 125 Result Comment: MANAGEMENT OF PATIENT CARE PER NURSING PROTOCOL Performed By: #### L501.080 #### [facility] Laboratory Point of Care [address] [place], [place] [id number] PROTHROMBIN TIME W/INR Collected: 01/04/2018 Status: F Source: EMPERATRIZ 1:28 PM [facility] [place] TYPE CODE TESTS RESULT OUT OF RANGE REFERENCE UNITS LAB L300.4150 11.7-14.9 SECONDS High PROTIME 15.5 LAB L300.4200 Normal INR 1.3 Performed By: #### L300.3900 #### [facility] Laboratory [address] [place], [place], [id number] Observed: 01/04/2018 Status: F Source: EMPERATRIZ CDIFF (MOLECULAR) 1:00 PM [facility] [place] Comments: IVONNE Cdiff-Molecular Normal Reference Range = Negative C. Diff DNA Negative- No toxigenic C. Diff DNA Detected NAAT METHOD Testing was performed using nucleic acid amplification Performed By: #### M100.6796 #### [facility] [address] [place], [place], [id number] Observed: 01/04/2018 Status: F Source: EMPERATRIZ ENTERIC PATHOGEN 1:00 PM [facility] [place] PAN[place]OOL REPOSITORY EP PANEL STOOL Normal Reference Range = Not Detected Not detected for Campylobacter group, Salmonella species, Shigella species, Vibrio Group, Yersinia enterocolitica, EHEC (Shiga Toxin 1, Shiga Toxin 2), Norovirus Gl/Gll, and Rotavirus A. Other common stool pathogens are not detected on this panel include: Aeromonas/Plesiomonas or parasites. Order testing for these organisms separately if suspected. This is an amplified DNA test which makes it both specific and sensitive. CAMPYLOBACTER Not Detected Salmonella Not Detected Shigella sp. Not Detected Shiga Toxin Not Detected Yersinia Not Detected VIBRIO Not Detected Norovirus Not Detected Rotavirus Not Detected Performed By: #### M100.637 #### [facility] [address] [place], [place], [id number] BEDSIDE GLUCOSE Collected: 01/04/2018 Status: F Source: EMPERATRIZ 11:05 AM [facility] [place] TYPE CODE TESTS RESULT OUT OF REFERENCE UNITS RANGE LAB L501.080 70-110 mg/dL High BEDSIDE GLU 111 Result Comment: MANAGEMENT OF PATIENT CARE PER NURSING PROTOCOL Performed By: #### L501.080 #### [facility] Laboratory Point of Care [address] [place], [place] [address] BASIC METABOLIC Collected: 01/04/2018 Status: F Source: EMPERATRIZ PROFILE (BMP) 10:50 AM [facility] [place] TYPE CODE TESTS RESULT OUT OF RANGE REFERENCE UNITS LAB L501.0100 74-106 mg/dL High GLU 113 Result Comment: Fasting Glucose result from 100 to 125 mg/dL suggests IMPAIRED HOMEOSTASIS per A.D.A. criteria. Please note revised GLUCOSE reference range effective 2017. LAB L501.1000 7-18 mg/dL High BUN 93 LAB L501.1100 0.70-1.30 mg/dL High alert CREAT,SERUM 9.31 Result Comment: Critical Result(s) Called at: 11:24:31 01/04/2018 by: Ankit to Thania PINA The validity of the calculated GFR AND GFRAA in patients over 70 years has not been determined. Clinical correlation is essential. LAB L501.1110 >60 mL/min Low EST GFR 6 Result Comment: Non- GFR Calc LAB L501.1115 >60 mL/min Low EST GFR - AA 8 Result Comment: GFR Calc LAB L501.1255 ml/min Normal Estimated CRCL 9.26 LAB L501.1300 10-20 RATIO Normal BUN/CRE 10.0 LAB L501.2200 8.5-10. mg/dL Low 1 CA 7.8 LAB L501.5300 136-145 mmol/L Normal NA 138 LAB L501.5600 3.5-5.1 mmol/L High K 5.5 LAB L501.5900 98-107 mmol/L High CL 109 LAB L501.6100 21.0-32 mmol/L Low .0 CO2 19.0 LAB L501.6200 5-15 Normal GAP 10 Performed By: #### L500.2500 #### [facility] [address] [place], [address] TYPE AND SCREEN Collected: 01/04/2018 Status: F Source: EMPERATRIZ 10:50 AM [facility] [place] Order Comment: CMV NEG? N Number of units to transfuse: 1 Is pt's Hgb is </= to 7.0 mg/dl or Hct </= 21%? Y Reason for Ordering Blood: Chronic Are the blood/blood products to be transfused? Y Is the patient having/had surgery? N CMV NEG?* N Give When? When Ready Irradiated? N Leukodepleted? Y Reason for Type AND Screen/Red Cells: ANEMIA TYPE CODE TESTS RESULT OUT OF RANGE REFERENCE UNITS LAB B10.0800 A Normal BLOOD TYPE GEL POSITIVE LAB B100.4000 Normal Antibody NEGATIVE Screen Performed By: #### B101.7450 #### [facility] [address] [place], [place], [address] RC Collected: 01/04/2018 Status: F Source: [place] 10:50 AM [facility] [place] TYPE CODE TESTS RESULT OUT OF REFERENCE UNITS RANGE LAB U100.0000 [id number] TRANSFUSED PRODUCT: T AND S with Crossmatch, Red Cells COUNT: 1 Performed By: #### U100.0000 #### Non-[facility] Laboratory - refer to report for specific site BEDSIDE GLUCOSE Collected: 01/04/2018 Status: F Source: [place]TON 6:48 AM [facility] [place] TYPE CODE TESTS RESULT OUT OF REFERENCE UNITS RANGE LAB L501.080 70-110 mg/dL High BEDSIDE GLU 118 Result Comment: MANAGEMENT OF PATIENT CARE PER NURSING PROTOCOL Performed By: #### L501.080 #### [facility] Laboratory Point of Care [address] [place], [place] [address] CBC W/DIFF, AUTOMATED Collected: 01/04/2018 Status: F Source: [place]TON 6:46 AM [facility] [place] TYPE CODE TESTS RESULT OUT OF RANGE REFERENCE UNITS LAB L100.1000 4.4-11.0 K/mm3 Normal WBC 9.8 LAB L100.1200 4.6-6.2 M/mm3 Low RBC 2.44 LAB L100.1300 13.0-16.5 g/dl Low HGB 6.4 LAB L100.1400 40-54 % Low HCT 20.2 LAB L100.1500 80-94 fL Normal MCV 82.8 LAB L100.1600 27.0-32.0 pg Low MCH 26.2 LAB L100.1700 32-36 g/gl Low MCHC 31.7 LAB L100.1810 11.6-14.6 % Normal RDW CV 12.5 LAB L100.1820 35.1-43.9 fl Normal RDW SD 38.4 LAB L100.1900 150-450 K/mm3 Normal PLT 296 LAB L100.2000 6.2-12.0 fl Normal MPV 8.5 LAB L100.2100 47-70 % High NEUT% 83.7 LAB L100.2200 19-41 % Low LY% 11.5 LAB L100.2300 0-10 % Normal MONO% 3.7 LAB L100.2400 0-5 % Normal EO% 0.8 LAB L100.2500 0-1 % Normal BASO% 0.1 LAB L100.2550 0.0-0.9 % Normal IM GRAN % 0.200 Result Comment: IG% - Immature Granulocytes (promyelocytes, myelocytes and metamyelocytes) > 1% indicates that a LEFT SHIFT is Present. LAB L100.2620 2.0-7.7 X10 3/uL High Absolute Neut 8.2 LAB L100.2720 0.83-4.51 X10 3/ul Normal Absolute Lymph 1.12 Performed By: #### L100.0100 #### [facility] [address] [place], [address] RENAL PROFILE Collected: 01/04/2018 Status: F Source: [place] 6:46 AM [facility] [place] TYPE CODE TESTS RESULT OUT OF RANGE REFERENCE UNITS LAB L501.0100 74-106 mg/dL High GLU 108 Result Comment: Fasting Glucose result from 100 to 125 mg/dL suggests IMPAIRED HOMEOSTASIS per A.D.A. criteria. Please note revised GLUCOSE reference range effective 2017. LAB L501.1000 7-18 mg/dL High BUN 93 LAB L501.1100 0.70-1.30 mg/dL High alert CREAT,SERUM 9.22 Result Comment: Critical Result(s) Called at: 07:46:30 01/04/2018 by: Ankit to Mahesh PINA The validity of the calculated GFR AND GFRAA in patients over 70 years has not been determined. Clinical correlation is essential. LAB L501.1110 >60 mL/min Low EST GFR 6 Result Comment: Non- GFR Calc LAB L501.1115 >60 mL/min Low EST GFR - AA 8 Result Comment: GFR Calc LAB L501.1255 ml/min Normal Estimated CRCL 9.35 LAB L501.1300 10-20 RATIO Normal BUN/CRE 10.1 LAB L501.1800 3.2-5.0 g/dL Low ALB 2.3 LAB L501.2200 8.5-10. mg/dL Low 1 CA 7.8 LAB L501.2300 2.5-4.9 mg/dL High PHOS 6.2 LAB L501.5300 136-145 mmol/L Normal NA 137 LAB L501.5600 3.5-5.1 mmol/L High K 5.9 LAB L501.5900 98-107 mmol/L High CL 108 LAB L501.6100 21.0-32 mmol/L Low .0 CO2 17.0 Performed By: #### L500.3600, L503.6550 #### [facility] [address] [place], [place], [address] FERRITIN Collected: 01/04/2018 Status: F Source: [place] 6:46 AM [facility] [place] TYPE CODE TESTS RESULT OUT OF RANGE REFERENCE UNITS LAB L503.6550 26-388 ng/mL Normal FERRITIN 138 Performed By: #### L500.3600, L503.6550 #### [facility] [address] [place], [address] VITAMIN D,25 HYDROXY Collected: 01/04/2018 Status: F Source: [place] 6:46 AM [facility] [place] [facility] TYPE CODE TESTS RESULT OUT OF REFERENCE UNITS RANGE LAB L506.1000 19.95-100.01 ng/mL Low Vitamin D 5.6 25-OH Result Comment: Vitamin D 25(OH) Status Range Deficiency <20 ng/mL (50nmol/L) Insuffciency 20 - 30 ng/mL (50 - 75 nmol/L) Sufficiency 30 - 100 ng/mL (75 - 250 nmol/L) Toxicity >100 ng/mL (>250 nmol/L) Performed By: #### L506.1000 #### [facility] [address] [place], [address] PTHIN Collected: 01/04/2018 Status: F Source: EMPERATRIZ 6:46 AM [facility] [place] [facility] TYPE CODE TESTS RESULT OUT OF RANGE REFERENCE UNITS LAB L509.1000 18.4-80.1 pg/mL High PTHIN 228.9 Result Comment: Please Note: PTH INTACT METHOD AND REFERENCE RANGE CHANGE Effective 11/13/2017. Performed By: #### L509.1000 #### [facility] [address] [place], [address] PROTEIN ELECTROPH, S Collected: 01/04/2018 Status: F Source: EMPERATRIZ 1:00 AM [facility] [place] [facility] TYPE CODE TESTS RESULT OUT OF RANGE REFERENCE UNITS LAB L3100.3500 6.0-8.5 g/dL Normal PROTEIN,TOTAL 6.0 LAB L3100.3600 2.9-4.4 g/dL Low ALBUMIN 2.6 LAB L3100.3700 0.0-0.4 g/dL Normal ALPHA-1 GLOBUL 0.4 LAB L3100.3800 0.4-1.0 g/dL High ALPHA-2 GLOBUL 1.2 LAB L3100.3900 0.7-1.3 g/dL Normal BETA GLOBULIN 0.9 LAB L3100.4000 0.4-1.8 g/dL Normal GAMMA GLOBULIN 1.0 LAB L3100.4110 Normal M-SPIKE Result Comment: NOT OBSERVED LAB L3100.4200 2.2-3.9 g/dL GLOBULIN, TOTAL Normal 3.4 LAB L3100.4300 0.7-1.7 A/G RATIO Normal 0.8 LAB L3100.4320 . INTERPRETATION Normal Comment Result Comment: Protein electrophoresis scan will follow via computer, mail, or pipe supervisor delivery. LAB L3100.4340 . Normal NOTE: Comment Result Comment: The SPE pattern is suggestive of a subacute inflammatory response. This condition represents an intermediate stage between two possible courses for acute inflammation: total convalescense with a return to normal, or the onset of a chronic inflammatory condition. Performed By: #### L3100.3450, L3600.4030 #### [facility] (refer to report for specific site) refer to report for address and phone number IMMUNOFIXATION URINE Collected: 01/04/2018 Status: F Source: EMPERATRIZ 1:00 AM [facility] [place] TYPE CODE TESTS RESULT OUT OF RANGE REFERENCE UNITS LAB L3600.4030 . Normal SAMMY Urine Comment Result Comment: No monoclonality detected. Performed at: - [facility] [id number] Hotel Server: Mitchell Hale PhD, Phone: [phone] Performed By: #### L3100.3450, L3600.4030 #### [facility] (refer to report for specific site) refer to report for address and phone number BEDSIDE GLUCOSE Collected: 01/03/2018 Status: F Source: EMPERATRIZ 9:50 PM [facility] [place] TYPE CODE TESTS RESULT OUT OF RANGE REFERENCE UNITS LAB L501.080 70-110 mg/dL Normal BEDSIDE GLU 90 Result Comment: MANAGEMENT OF PATIENT CARE PER NURSING PROTOCOL Performed By: #### L501.080 #### [facility] Point of Care [address] [place] [address] HISTORY AND PHYSICAL Observed: 01/03/2018 Status: F Source: PENDLETON EXAM 7:04 PM [facility] [place] [facility] Medical Records Department [address] [place] [address] History and Physical 01/03/18 1514 MR#: [id number] Acct: [id number] Name: ROBERT MCCRARY Rep #: [id number] : 1960 57 From: Lance [place] PCP: Abran Reveles MD Status: ADM IN [place] [facility] [id number] ADDENDUM by Sae Sharp DO on 01/03/18 at 1904 Code Visit She was seen and examined independently of Lance Hernandez today in the emergency room at [facility], patient came in for evaluation of generalized malaise, thirst, nausea and vomiting which has occurred over the last 2-3 weeks. Patient also states that he has lost weight over the last couple of months. Also states he has had episodic diarrhea, he denies any blood in the stool however. Evaluation in the emergency room included labs which were abnormal for a highly elevated creatinine and BUN, patient's hemoglobin was also low at 7.2. The last creatinine on record here at the hospital was approximately 14 months ago, at that time his creatinine was 1.28. On examination, patient was alert, he appeared nontoxic, lungs were clear bilaterally, heart rate and rhythm was regular, he was oriented 3. I had the emergency room physician order an ultrasound of his kidneys which was performed and showed no evidence of hydronephrosis. I then contacted nephrology who saw the patient in ultrasound. Patient will be admitted acute renal failure with uremia and given IV fluids, labs will be monitored, blood sugars will be monitored and sliding scale insulin will be given-I will hold his basal insulin for now because his blood sugar was low in the emergency room. I have reviewed Lance Hernandez's history and physical and plan of care and endorse both Inpatient E AND M: [id number] Init Hosp L3 01/03/18 1904 <Electronically signed by Sae Sharp DO> Date Sae Sharp DO cc: PADMINI Hernandez; Abran Reveles MD; Sae Sharp DO * Signed Problem List (1) ELMO (acute kidney injury) Status: Acute (2) Hyperkalemia Status: Acute (3) Hyperlipidemia Status: Chronic (4) Hypothyroidism Status: Chronic (5) Hypertension Status: Chronic (6) Type II diabetes mellitus Status: Chronic History of Present Illness Date of Admission: 01/03/18 Chief Complaint: malaise The patient is a 57 year old M who presents to the ER complaining of not feeling well for about a month. He has felt weak, SOB with exertion, dizzy with exertion, and had daily vomiting every mornning and diarrhea about twice per day. He has a hx of DMt2, HTN, HLD, and hypothyroidism. He has had poor appetite, but has been drinking water heavily at night. He has noticed he is urinating less than normal - usually he drinks a lot of water at night and has to get up at night but now he does not need to, and he feels dehydrated despite his water intake. In the ER he has a BUN of 95 and a creatinine of 9.91, last Creatinine here was 1.28. He denies a hx of CKD. He also has a Hgb of 7.2 but denies any anemia. Potassium is elevated. He has been compliant with his medications. He has not been checking his blood sugar at home. He has no CP, tightness, or pressure. He was seen by Dr. Blakely in the ER. Past Medical History Past Medical History (Chronic Problems): Chronic Problems Hyperlipidemia (Chronic) Hypothyroidism (Chronic) Hypertension (Chronic) Type II diabetes mellitus (Chronic) Allergies No Known Allergies Allergy (Verified 10/28/15 18:31) Home Medications: Ambulatory Orders Medication Instructions Recorded Insulin Detemir [Levemir FlexPen] 45 units SC BID 10/28/15 Levothyroxine [Synthroid] 150 mcg PO DAILY 10/28/15 Lisinopril [Zestril] 10 mg PO DAILY 10/28/15 Surgical History: - - nasal arterial cauterization Psychiatric History: Anxiety, Depression Lives: Spouse/ Significant Other Smoking Status: Never smoker Tobacco Use: Non-smoker Alcohol: None Drugs: None - *Family History Maternal History Items: Diabetes Paternal History Items: Heart Disease Review of Systems Constitutional: Reports: Malaise, Weakness, Fatigue. Denies: Chills, Fever, Weight Change HEENT: Denies: Head Aches, Sinus Congestion, Sinus Drainage Cardiovascular: Reports: Light Headedness. Denies: Chest Pain, Chest Pressure, Chest Tightness, Edema, Heaviness, Palpitations Respiratory: Reports: Shortness of breath upon exertion. Denies: Cough, Shortness of breath at rest, Sputum production, Wheezing Gastrointestinal: Denies: Abdominal Pain, Nausea, Vomiting Genitourinary: Denies: Dysuria Musculoskeletal: Denies: Joint Pain, Joint Tenderness Skin: Denies: Rash, Wounds Neurological: Denies: Numbness, Tingling, Focal weakness Psychiatric: Denies: Anxiety, Depression, Homicidal Ideations, Suicidal Ideations Hematologic/ Lymphatic: Denies: Easy Bruising, Easy Bleeding VTE Information - Inpt Only VTE Present on Admission: No VTE Mechan Device Prophylaxis: SCD's Patient Problems: Active and Suspected Problems ELMO (acute kidney injury) (Acute) Hyperkalemia (Acute) - Physical Exam General: Alert, Oriented x3, Cooperative HEENT: Atraumatic, PERRLA, EOMI, Normocephalic Neck: Supple, No JVD, Negative Carotid Bruits Lungs: Clear to auscultation, Normal air movement Cardiovascular: Regular rate, No murmurs Abdomen: Bowel Sounds Present, Soft, Non Tender, - - negative CVA tenderness Extremities: No edema, Capillary Refill Less than 3 Seconds Skin: No rashes, No breakdown Musculoskeletal: No Tenderness to Palpation of Joints or Extremities Neurological: Cranial nerves II-XII grossly intact Psych/Mental Status: Normal Affect, Appropriate, Alert and oriented to time, place, person, mood and affect Vital Signs Temp Pulse Resp BP Pulse Ox 98.6 F 73 16 157/73 H 97 01/03/18 12:24 01/03/18 13:53 01/03/18 13:53 01/03/18 13:53 01/03/18 13:53 Oxygen Delivery Method Room Air Weight: 92.5 kg Body Mass Index (BMI) 29.2 Laboratory Tests Past 24 Hrs WBC RBC Hgb Hct MCV MCH MCHC RDW RDW Differential Plt Count MPV Immature Gran % (Auto) Neut % (Auto) Lymph % (Auto) Assessment/Plan Active and Suspected Problems ELMO (acute kidney injury) (Acute) Hyperkalemia (Acute) 1. ELMO - BUN 95, Cr 9,91. Unclear etiology. He has had vomiting and diarrhea but has been drinking more water lately. He is not producing as much urine. He has not had a change in his medications and has been compliant with his normal meds. Renal ultrasound was normal. IV fluids started, renal consulted. Hold metformin and GEE inhibitor. Walsh cath for strict I/O. EKG normal sinus. 2. HTN - hold GEE, elevated in ER. Trending down. 3. DMt2 - hold metformin, hold levemir as his sugar is down in the ER. Sliding scale coverage. LA normal. 4. Hyperkalemia - mild. Trend. Kayex if needed. 5. Normocytic Anemia - Hgb 7.2. Unclear etiology. Check iron studies, stool for occult blood. Possibly contributing to his dizziness and exertional dyspnea. 6. Hypothyroidism - continue Synthroid 7. Anxiety/Depression - home meds. 8. HLD - on statin. DVT ppx: SCDs Pt was seen by Lance Hernandez PA-C under the supervision of Dr. Sharp. 01/03/18 8222 <Electronically signed by Lance WASHINGTON> Date Lance WASHINGTON 01/03/18 1551<Electronically signed by Sae Sharp DO> Cosigner Signature: Date (if applicable) Sae Sharp DO CC: PADMINI Hernandez; Abran Reveles MD; Sae Sharp DO Signed CREATININE, URINE Collected: 01/03/2018 Status: F Source: EMPERATRIZ (RANDOM) 5:45 PM [facility] [place] TYPE CODE TESTS RESULT OUT OF RANGE REFERENCE UNITS LAB L501.1200 NO RANGE EST. mg/dL Normal UR CREAT 39.30 Performed By: #### L501.1200 #### [facility] [address] [place], [address] URINE SODIUM Collected: 01/03/2018 Status: F Source: EMPERATRIZ 5:45 PM [facility] [place] TYPE CODE TESTS RESULT OUT OF RANGE REFERENCE UNITS LAB L501.5500 Not Establ. mmol/L Normal UR NA 49 Performed By: #### L501.5500 #### [facility] [address] [place], [address] PROTEIN+CREATININE Collected: Status: F Source: EMPERATRIZ RATIO,URINE 01/03/2018 5:45 PM [facility] [place] TYPE CODE TESTS RESULT OUT OF RANGE REFERENCE UNITS LAB L501.1200 NO RANGE EST. mg/dL Normal UR CREAT 38.70 LAB L501.1930 <11.9 mg/dL High 224.8 PROTEIN,UR.R AN. LAB L501.1940 0-200 mg/g CRE High PROT:CRE 5809 RATIO Performed By: #### L501.0900 #### [facility] [address] [place], [address] BEDSIDE GLUCOSE Collected: 01/03/2018 Status: F Source: EMPERATRIZ 4:20 PM [facility] [place] TYPE CODE TESTS RESULT OUT OF RANGE REFERENCE UNITS LAB L501.080 70-110 mg/dL Normal BEDSIDE GLU 110 Result Comment: MANAGEMENT OF PATIENT CARE PER NURSING PROTOCOL Performed By: #### L501.080 #### [facility] Point of Care [address] [place] [address] Observed: 01/03/2018 Status: F Source: PENDLETON STOOL OCCULT BLOOD 4:05 PM [facility] [place] [facility] [place] Order Date: 01/03/18 STOB iFOB Occult Blood Negative Performed By: #### M100.7900 #### [facility] [address] [place], [address] EMERGENCY DEPARTMENT Observed: 01/03/2018 Status: F Source: PENDLETON SUMMARY 2:23 PM [facility] [place] [facility] Medical Records Department [address] [facility] [place] [address] Emergency Department Summary 01/03/18 1415 MR#: [id number] Acct: [id number] Name: ROBERT MCCRARY Rep #: [id number] : 1960 57 From: Jarret Bhatt MD PCP: Abran Reveles MD Status: REG ER - ER Visit Summary Date of Service: 01/03/18 Chief Complaint: Weak, bloated, nausea, vomiting and dry heaves with 3-4 loose stools a day for 3-4 weeks. History of Present Illness: The patient is a 57 M who has history of type 1 diabetes, hypertension, hypercholesterolemia and hypothyroidism whose last A1c was 10.8. He was seen by Dr. NEYDA Reveles and sent to the ER because he did not look well. Patient denies any fever, chills night sweats. He has had between a 10-15 pound weight loss over the past month. He does complain of intermittent blurred vision. He had no trouble with speech or swallowing. He denies any chest discomfort. He noticed he fatigues more easily and has dyspnea with exertion but not chest pain with exertion. He does report decreased urine output. He also reports orthostatic symptoms. He denies any symptoms of claudication. Physical Examination: Appears pale and ill. HEENT exam is remarkable pale conjunctival. Mucosa is moist. Heart is regular without murmur, gallop or rub. S1 and S2 are normal. Lungs are clear to auscultation with good movement of air bilaterally. Abdomen distended tympanitic with decreased bowel sounds. There is no tenderness, guarding or peritoneal findings. There are no skin lesions noted. He has stigmata of peripheral vascular disease lower extremity with absence of hair distal third of his leg and absence of hair on his toes. Pulses are diminished. Patient is alert and oriented 3. Motor is 5 over 5. Sensory is intact. DTRs are symmetric with no clonus or Babinski sign. Cranial 2 through 12 are intact. Cerebellar testing is normal. Test Results: EKG was a sinus rhythm no ectopy. CBC is marked for an H AND H 7.2 and 22.5. Electrode panel was marked for potassium 5.4, CO2 19 with an anion gap of 12 and a BUN and creatinine are 95 and 9.9 respectively. UA is remarkable for proteinuria and hematuria. Albumin is 2.9. Emergency Department Course and Treatment: Patient symptoms affect his diabetic CBC, BMP and UA was obtained. He did receive IV fluids as well as antiemetic. In light of his lab results and ultrasound of the kidneys was obtained and spoke with hospitalist for admission Treatment Plan: IV fluids, ultrasound kidney and further evaluation as [facility] Impression: 1. Uremia with acute renal failure 2. Anemia probably secondary #1 3. Dyspnea on exertion secondary to anemia 4. History of type 1 diabetes 5. History of hypertension 6. History of hypercholesterolemia 7. History of hypothyroidism This note was generated with Electronifie dictation software. It may contain incorrect words, spelling, and punctuation that were not noted in review of the chart prior to signing ED Disposition - Plan for ED Patient: Chief Complaint: Nausea/Vomiting/Diarrhea Referrals: Abran Reveles MD [Primary Care Provider] - What to do if you have Problems For any increased pain, shortness of breath, bleeding, nausea or vomiting, chest pain, or any unexpected problems, contact your Primary Care Provider. Call [facility] ([phone]) or report to the closest Emergency Room. Call 911 if necessary. 01/03/18 3246 <Electronically signed by Jarret Bhatt MD> Date Jarret Bhatt MD Cosigner Signature (If Indicated): Date CC: Abran Reveles MD LACTIC ACID Collected: 01/03/2018 Status: F Source: PENDLETON 2:20 PM [facility] [place] Order Comment: Yes/No query for Sepsis Lactate Rule Y TYPE CODE TESTS RESULT OUT OF RANGE REFERENCE UNITS LAB L503.6005 0.4-2.0 mmol/L Normal LACTIC ACID 0.7 Performed By: #### L503.6005 #### [facility] [address] [place], [address] KIDNEY AND BLADDER Observed: 01/03/2018 Status: F Source: PENDLETON 2:09 PM [facility] [place] [facility] Imaging Services [address] [place] [address] Kidney and Bladder MR#: [id number] Acct: [id number] Name: ROBERT MCCRARY Rep #: [id number] : 1960 M 57 From: Godwin Palmer MD PCP: Abran Reveles MD Status: REG ER Study: Kidney and Bladder Date of Exam: 01/03/18 Exam# [id number] Ordering Dr: Jarret Bhatt MD STUDY: RENAL ULTRASOUND - COMPLETE REASON FOR EXAM: Male, 57 years old. Acute renal failure. TECHNIQUE: Ultrasound evaluation of the kidneys was performed with real-time and static mills-scale imaging. COMPARISON: None. FINDINGS: RIGHT KIDNEY: Normal location of the right kidney, which is normal in size. The right kidney measures 12.1 cm x 4.9 cm x 5.7 cm. There is a normal cortex of the right kidney. The renal cortex measures 1.8 cm. There is no right renal mass or cyst. There are no right renal calculi. There is no right hydronephrosis. DISTAL RIGHT URETER: There is non-visualization of the distal right ureter. There is no demonstrated right ureterovesical junction calculus. There is a visualized right ureteral jet. LEFT KIDNEY: Normal location of the left kidney, which is normal in size. The left kidney measures 12.7 cm x 5.0 cm x 6.1 cm. There is a normal cortex of the left kidney. The renal cortex measures 1.5 cm. There is no left renal mass or cyst. There are no left renal calculi. There is no left hydronephrosis. DISTAL LEFT URETER: There is non-visualization of the distal left ureter. There is no demonstrated left ureterovesical junction calculus. There is a visualized left ureteral jet. BLADDER: The distended urinary bladder has a volume of 141.3 ml. There is a normal wall thickness of the distended urinary bladder. There is no demonstrated mass within the urinary bladder. There are no demonstrated bladder calculi. US/Kidney and Bladder IMPRESSION: Normal ultrasound of the kidneys and urinary bladder. Electronically Signed: Godwin Palmer MD at 15:14 EST Tel [phone], Service support , CC: Abran Reveles MD; Jarret Bhatt MD Manager [place]: Signed URINALYSIS, COMPLETE Collected: 01/03/2018 Status: F Source: EMPERATRIZ 1:50 PM [facility] [place] Order Comment: Order Date: 01/03/18 How was Urine Obtained? CLEAN CATCH TYPE CODE TESTS RESULT OUT OF RANGE REFERENCE UNITS LAB L400.3000 Yellow COLOR Normal Yellow LAB L400.3050 Clear Normal CLARITY Clear LAB L400.3200 Normal mg/dl Normal GLUCOSE, UR Normal LAB L400.3300 Negative mg/dL Normal BILIRUBIN URINE Negative LAB L400.3400 Negative mg/dl Normal KETONE UR Negative LAB L400.3465 1.002-1.030 Normal SP.GR. DIPSTX 1.010 LAB L400.3550 5.0 - 8.0 pH UR Normal 6.0 LAB L400.3600 Negative mg/dl High PROT DIPSTX 100 LAB L400.3700 Normal mg/dl Normal UROBILI Normal LAB L400.3750 Negative Normal NITRITE UR Negative LAB L400.3780 Negative /ul High OCCULT BLOOD-UR 250 LAB L400.3800 Negative /ul LEUK Normal ESTERASE Negative LAB L400.4050 0-5 /hpf WBC 0 Normal SEEN LAB L400.4100 0-5 /hpf Normal RBC-UA 5-10 SEEN LAB L400.4150 0-5 /hpf SQUAM Normal EPI 0-5 SEEN LAB L400.4300 None Seen /hpf 1+ Normal BACTERIA LAB L400.4350 <or=2+ /hpf Normal MUCUS, URINE RARE Performed By: #### L400.0001 #### [facility] [address] [place], [place], [address] CBC W/DIFF, AUTOMATED Collected: 01/03/2018 Status: F Source: PENDLETON 1:00 PM [facility] [place] TYPE CODE TESTS RESULT OUT OF RANGE REFERENCE UNITS LAB L100.1000 4.4-11.0 K/mm3 Normal WBC 10.5 LAB L100.1200 4.6-6.2 M/mm3 Low RBC 2.73 LAB L100.1300 13.0-16.5 g/dl Low HGB 7.2 LAB L100.1400 40-54 % Low HCT 22.5 LAB L100.1500 80-94 fL Normal MCV 82.4 LAB L100.1600 27.0-32.0 pg Low MCH 26.4 LAB L100.1700 32-36 g/gl Normal MCHC 32.0 LAB L100.1810 11.6-14.6 % Normal RDW CV 12.6 LAB L100.1820 35.1-43.9 fl Normal RDW SD 37.8 LAB L100.1900 150-450 K/mm3 Normal PLT 368 LAB L100.2000 6.2-12.0 fl Normal MPV 8.7 LAB L100.2100 47-70 % High NEUT% 82.1 LAB L100.2200 19-41 % Low LY% 10.1 LAB L100.2300 0-10 % Normal MONO% 6.4 LAB L100.2400 0-5 % Normal EO% 1.0 LAB L100.2500 0-1 % Normal BASO% 0.1 LAB L100.2550 0.0-0.9 % Normal IM GRAN % 0.300 Result Comment: IG% - Immature Granulocytes (promyelocytes, myelocytes and metamyelocytes) > 1% indicates that a LEFT SHIFT is Present. LAB L100.2620 2.0-7.7 X10 3/uL High Absolute Neut 8.6 LAB L100.2720 0.83-4.51 X10 3/ul Normal Absolute Lymph 1.06 Performed By: #### L100.0100 #### [facility] [place], [address] COMPREHENSIVE METABOLIC Collected: 01/03/2018 Status: F [facility] PM [facility] [place] TYPE CODE TESTS RESULT OUT OF RANGE REFERENCE UNITS LAB L501.0100 74-106 mg/dL Low GLU 69 Result Comment: Please note revised GLUCOSE reference range effective 2017. LAB L501.1000 7-18 mg/dL High BUN 95 LAB L501.1100 0.70-1.30 mg/dL High alert CREAT,SERUM 9.91 Result Comment: Critical Result(s) Called at: 14:00:46 01/03/2018 by: Ankit to Melly PINA The validity of the calculated GFR AND GFRAA in patients over 70 years has not been determined. Clinical correlation is essential. LAB L501.1110 >60 mL/min Low EST GFR 6 Result Comment: Non- GFR Calc LAB L501.1115 >60 mL/min Low EST GFR - AA 7 Result Comment: GFR Calc LAB L501.1255 ml/min Normal Estimated CRCL 8.70 LAB L501.1300 10-20 RATIO Low BUN/CRE 9.6 LAB L501.1500 6.4-8.2 g/dL Normal T PROT 7.9 LAB L501.1800 3.2-5.0 g/dL Low ALB 2.9 LAB L501.1950 2.2-4.2 g/dL High GLOB 5.0 LAB L501.2000 0.9-2.4 RATIO Low A/G 0.6 LAB L501.2200 8.5-10. mg/dL Normal 1 CA 8.5 LAB L501.4100 15-37 U/L Low AST 11 LAB L501.4305 45-117 U/L Normal ALK P 63 LAB L501.4405 16-61 U/L Low ALT 15 Result Comment: Please note revised ALT reference range effective 2017. LAB L501.4600 0.20-1.00 mg/dL Normal T BILI 0.50 LAB L501.5300 136-145 mmol/L Normal NA 136 LAB L501.5600 3.5-5.1 mmol/L High K 5.4 LAB L501.5900 98-107 mmol/L Normal CL 105 LAB L501.6100 21.0-32.0 mmol/L Low CO2 19.0 LAB L501.6200 5-15 Normal GAP 12 Performed By: #### L500.4050 #### [facility] [address] [place], [address] IRON+IRON BINDING Collected: 01/03/2018 Status: F Source: EMPERATRIZ [place]ACITY 1:00 PM [facility] [place] TYPE CODE TESTS RESULT OUT OF REFERENCE UNITS RANGE LAB L503.6075 250-450 ug/dL Low TIBC 249 LAB L503.6150 65-175 ug/dL Low IRON 18 LAB L503.6250 15.0-55.0 % Low IRON SATURATION 7.2 Performed By: #### L503.6030 #### [facility] [address] [place], [place], [address] ALLERGIES ALLERGIES DATE TYPE / CODE NAME / CODE REACTION SEVERITY SOURCE 12/09/2018 Drug epoetin back pain Unknown [facility] Allergy/416 beta/[id number]( [facility] 023620(SNOM RXNORM) Repository ED CT) 07/04/2018 Drug No Known Unknown [facility] Allergy/416 Allergies/Z00521 [facility] 382084(SNOM 0388(RXNORM) Repository ED CT) Drug NO KNOWN [facility] Class/64004 ALLERGIES [facility] [place] 1003(SNOMED Repository CT) /[id number] NO KNOWN [facility] 6(SNOMED ALLERGIES [facility]) Repository ENCOUNTERS ENCOUNTERS ADMIT/DISCHARGE ACCOUNT NUMBER ADMITTING ENCOUNTER LOCATION SOURCE CLASS 12/09/2018/12/10/19 [id number] [place], Inpatient [place] 19 [place] Encounter [facility] ding:[place] Repository : BLE459Vmr: 1 12/09/2018 [id number] [place], Ambulatory BMSBuilding: [place] Ghasem BMS.[facility] Repository 12/09/2018 [id number] [place], Ambulatory BMSBuilding: [place] Ghasem BMS.[facility] Repository 12/05/2018 [id number] Ambulatory [facility] ding:[place] Repository 11/28/2018/11/28/19 [id number] Ambulatory BMSBuilding: [place] 19 BMS.[facility] Repository 11/26/2018/11/26/19 [id number] Ambulatory [address] Repository 11/06/2018/11/06/20 [id number] Ambulatory [address] ding:[facility] Repository : AC02 11/06/2018/11/06/20 [id number] Ambulatory BMSBuilding: [place] 18 BMS.CF.[facility] Repository 11/03/2018/11/03/20 [id number] Ambulatory BMSBuilding: [place] 18 BMS.[facility] Repository 11/02/2018/11/02/20 [id number] Emergency [address] ding:ED Repository 10/31/2018/10/31/20 [id number] Ambulatory BMSBuilding: [place] 18 BMS.CF.[facility] Repository 10/31/2018/10/31/20 [id number] Ambulatory [address] ding:[facility] Repository : AC09 10/29/2018/10/29/20 [id number] Ambulatory BMSBuilding: [place] 18 BMS.[facility] Repository 10/27/2018/10/27/20 [id number] Ambulatory BMSBuilding: [place] 18 BMS.[facility] Repository 10/13/2018 [id number] Ambulatory [facility] ding:[place] Repository 09/24/2018 [id number] Ambulatory [facility] Repository 09/23/2018/09/23/20 [id number] Ambulatory BMSBuilding: [place] 18 BMS.[facility] Repository 09/08/2018/09/08/20 [id number] Ambulatory [facility] [place] Repository 09/08/2018/09/08/20 [id number] Ambulatory [facility] [place] Repository 09/08/2018/09/12/20 [id number] Ambulatory [facility] [place] Repository 09/08/2018/09/08/20 [id number] Ambulatory [facility] [place] Repository 09/08/2018/09/08/20 [id number] Ambulatory [facility] [place] Repository 09/08/2018/09/08/20 [id number] Ambulatory [facility] [place] Repository 09/08/2018/09/08/20 [id number] Ambulatory [facility] [place] Repository 09/08/2018/09/11/20 [id number] Ambulatory [facility] [place] Repository 09/08/2018/09/08/20 [id number] Ambulatory [place] [facility] [place] Repository 09/08/2018/09/08/20 [id number] Ambulatory [place] [facility] [place] Repository 09/08/2018/09/08/20 [id number] Ambulatory [place] 18 [facility] [place] Repository 09/03/2018/09/03/20 [id number] Ambulatory [place] [facility] [place] Repository 09/03/2018/09/04/20 [id number] Ambulatory [place] 18 [facility] [place] Repository 09/01/2018 [id number] Ambulatory BMSBuilding: [place] BMS.CF.[facility] Repository 09/01/2018/09/01/20 [id number] Ambulatory [place] ding:[facility] Repository 08/27/2018 [id number] Ambulatory [facility] ding:LAB Repository 08/27/2018/08/27/20 [id number] Ambulatory BMSBuilding: [place] 18 BMS.[facility] Repository 08/10/2018/08/10/20 [id number] Emergency [place] ding:ED Repository 08/02/2018/08/06/20 [id number] [place], Inpatient [address] [place] Repository 08/02/2018/08/06/20 [id number] [place], Inpatient [address] MEDICAL Repository CENTERBuildi ng:TCURoom: 3212Bed: 01 08/01/2018/08/02/20 [id number] [place], Inpatient [place] [address] [facility] ding:[place] Repository : [id number]: 1 08/01/2018 [id number] [place], Ambulatory BMSBuilding: [place] Jakub F BMS.CF.[facility] Repository 08/01/2018 [id number] [place], Ambulatory BMSBuilding: [place] Jakub F BMS.[facility] Repository 08/01/2018 [id number] [place], Ambulatory BMSBuilding: [place] Jakub F BMS.[facility] [facility]/01[facility]2018/08/02/20 [id number] Ambulatory BMSBuilding: Emperatriz 18 [facility] Repository 07/11/2018 [id number] Ambulatory [facility] ding:LABSPEC Repository 07/10/2018 [id number] Ambulatory [facility] ding:LAB Repository 07/08/2018 [id number] Ambulatory [facility] ding:RAD Repository 07/04/2018 [id number] Ambulatory [facility] ding:PAVLAB Repository 07/04/2018/07/04/20 [id number] Ambulatory BMSBuilding: Savage 18 BMS.[facility] Repository 07/03/2018/07/03/20 [id number] Ambulatory BMSBuilding: Savage 18 BMS.[facility] Repository 07/01/2018/07/02/20 [id number] Emergency [address] ding:ED Repository 06/24/2018/06/24/20 [id number] Ambulatory [address] ding:EN Repository 06/24/2018 [id number] Ambulatory BMSBuilding: Savage BMS.CF.[facility] Repository 06/12/2018/06/12/20 [id number] Ambulatory BMSBuilding: Savage 18 BMS.[facility] Repository 2018 [id number] [facility]LAB.FUT Repository URE 05/31/2018/05/31/20 [id number] Emergency Emperatriz Savage 18 [facility] ding:ED Repository 05/22/2018/05/22/20 [id number] Ambulatory BMSBuilding: Savage 18 BMS.[facility] Repository 05/15/2018/05/15/20 [id number] Ambulatory Emperatriz Savage 18 [facility] ding:SDC Repository 05/15/2018 [id number] Ambulatory BMSBuilding: Emperatriz BMS.CF.[facility] Repository 04/23/2018/04/23/20 [id number] Ambulatory BMSBuilding: Savage 18 BMS.[facility] Repository 04/17/2018 [id number] Ambulatory BMSBuilding: [place] BMS.CF.[facility] Repository 04/11/2018 [id number] [facility] ding:CVS Repository 03/01/2018/03/01/20 [id number] Emergency Savage Emperatriz 18 [facility] ding:ED Repository 01/21/2018 [id number] [facility] ding:CT Repository 01/20/2018 [id number] [facility] ding:MEDOUTP Repository 01/18/2018 [id number] [facility] ding:LABSPEC Repository 01/14/2018 [id number] Ambulatory BMSBuilding: Emperatriz BMS.[facility] Repository 01/14/2018/01/14/20 [id number] Ambulatory Emperatriz Emperatriz 18 [facility] Rep[facility] 01/14/2018 [id number] Ambulatory BMSBuilding: [place] BMS.CF.[facility] Repository 01/13/2018/01/13/20 [id number] Ambulatory BMSBuilding: Savage 18 BMS.[facility] Repository 01/13/2018 [id number] [facility] ding:LAB Repository 01/10/2018 [id number] [facility] ding:LAB Repository 01/03/2018/01/08/20 [id number] Tereletsky, Inpatient Emperatriz Savage 18 Sae Encounter [facility] ding:MV5Lulx Repository : QN030Yoh: 1 01/03/2018 [id number] Tereletsky, Ambulatory BMSBuilding: Emperatriz Sae BMS.[facility] Repository 01/03/2018 [id number] Tereletsky, Ambulatory BMSBuilding: Savage Sae BMS.[facility] Repository 01/03/2018 [id number] Tereletsky, Ambulatory BMSBuilding: Emperatriz Sae BMS.[facility] Repository 01/03/2018 [id number] Tereletsky, Ambulatory BMSBuilding: [place] Sae BMS.[facility] Repository 01/03/2018 [id number] Tereletsky, Ambulatory BMSBuilding: Emperatriz Sae BMS.[facility] Repository PAYERS PAYERS ENCOUNTER GUARANTOR PAYER SUBSCRIBER SOURCE 12/09/2018 ROBERT R Primary ROBERT R Emperatriz [id number] OLD Insurance:ANTHEMPolic MALEYDOB: [facility] [place] Number: [id number], [place] [id number] Repository 84313Xvk: (878) melissa Date:2907-65-45OP [phone] () [address] [place] [address] 69172TP: 12/09/2018 Secondary ROBERT R [place] Insurance:MEDICARE MALEYDOB: [facility] PART A BPolic [id number] Hospital Number: Repository [id number] Date:2018-12-09 12/09/2018 Tertiary NOT GIVENUNK Emperatriz Insurance:SELF PAY [facility] Number: Effective Repository Date:2018-12-09 12/09/2018 ROBERT R Primary ROBERT R [place] [id number] OLD Insurance:ANTHEMPolic MALEYDOB: [facility] [place] Number: [id number], [place] [id number] Repository 80664Dcj: 330) melissa Date:6007-53-16BL [phone] () [address] [place] [address] 16045SP: 12/09/2018 Secondary ROBERT R [place] Insurance:MEDICARE MALEYDOB: Community PART A [facility] [id number] Hospital Number: Repository [id number] Date:2018-12-09 12/09/2018 Tertiary NOT GIVENUNK [place] Insurance:SELF PAY [facility] Number: Effective Repository Date:2018-12-09 12/09/2018 ROBERT R Primary ROBERT R Emperatriz [id number] OLD Insurance:ANTHEMPolic MALEYDOB: Community [facility] y Number: [id number], [place] [id number] Repository 95739Yma: (375) melissa Date:1221-40-21FL [phone] () [address]LTPNOBE, [place] [address]TG: 12/09/2018 Secondary ROBERT R Emperatriz Insurance:MEDICARE MALEYDOB: Community PART A [facility] [id number] Hospital Number: Repository [id number] Date:2018-12-09 12/09/2018 Tertiary NOT GIVENUNK Emperatriz Insurance:SELF PAY [facility] Number: Effective Repository Date:2018-12-09 12/05/2018 ROBERT R Primary ROBERT R [place] [id number] OLD Insurance:ANTHEMPolic MALEYDOB: [facility] y Number: [id number], [place] [id number] Repository 54145Qkr: (330) melissa Date:5884-72-44NG [phone] () [address] [place] [address] 22162MZ: 12/05/2018 Secondary NOT GIVENUNK [place] Insurance:SELF PAY [facility] Number: Effective Repository Date:2018-12-01 11/28/2018 ROBERT R Primary ROBERT R [place] [id number] OLD Insurance:ANTHEMPolic MALEYDOB: Community SAL y Number: [id number], [place] [id number] Repository 06122Cye: (283) melissa Date:5396-66-45FW [phone] () [address]IUYQQRL, [place] [address]IW: 11/28/2018 Secondary NOT GIVENUNK Emperatriz Insurance:SELF PAY [facility] Number: Effective Repository Date:2018-11-27 11/06/2018 ROBERT R Primary ROBERT R [place] [id number] OLD Insurance:ANTHEMPolic MALEYDOB: [facility] [place] Number: [id number], [place] [id number] Repository 71455Bob: (031) melissa Date:5953-55-68SC [phone] () [address]WMPCADS, [place] [address]WJ: 11/06/2018 Secondary NOT GIVENUNK Emperatriz Insurance:SELF PAY [facility] Number: Effective Repository Date:2018-11-04 11/06/2018 ROBERT R Primary ROBERT R [place] [id number] OLD Insurance:ANTHEMPolic MALEYDOB: [facility] [place] Number: [id number], [place] [id number] Repository 390[address]Lud: (443) melissa Date:8985-58-11GO [phone] () [address]XMYVPSZ, [place] [address]NI: 11/06/2018 Secondary NOT GIVENUNK Emperatriz Insurance:SELF PAY [facility] Number: Effective Repository Date:2018-11-06 11/03/2018 ROBERT R Primary ROBERT R Emperatriz [id number] OLD Insurance:ANTHEMPolic MALEYDOB: [facility] y Number: [id number], [place] [id number] Repository 48431Zfg: (577) melissa Date:9111-67-67VT [phone] () [address]NMNBEYO, [place] [address]KH: 11/03/2018 Secondary NOT GIVENUNK [place] Insurance:SELF PAY [facility] Number: Effective Repository Date:2018-11-03 11/02/2018 ROBERT R Primary ROBERT R Emperatriz [id number] OLD Insurance:ANTHEMPolic MALEYDOB: [facility] y Number: [id number], [place] [id number] Repository 16567Ahd: (330) melissa Date:8070-56-75SK [phone] () [address] [address]KZ: 11/02/2018 Secondary NOT GIVENUNK Emperatriz Insurance:SELF PAY [facility] Number: Effective Repository Date:2018-11-02 10/31/2018 ROBERT R Primary ROBERT R Emperatriz [id number] OLD Insurance:ANTHEMPolic MALEYDOB: [facility] [place] Number: [id number], [place] [id number] Repository 75068Jzn: (330) melissa Date:5135-53-37OJ [phone] () [address]DTCTLHKRASHAWN LAR[address] [address]XI: 10/31/2018 Secondary NOT GIVENUNK [place] Insurance:SELF PAY [facility] Number: Effective Repository Date:2018-10-31 10/31/2018 ROBERT R Primary ROBERT R Emperatriz [id number] OLD Insurance:ANTHEMPolic MALEYDOB: [facility] y Number: [id number], [place] [id number] Repository 52988Ckj: (330) melissa Date:9919-20-37MA [phone] () [address] [address]CO: 10/31/2018 Secondary NOT GIVENUNK Emperatriz Insurance:SELF PAY [facility] Number: Effective Repository Date:2018-10-28 10/29/2018 ROBERT R Primary ROBERT R Emperatriz [id number] OLD Insurance:ANTHEMPolic MALEYDOB: [facility] [place] Number: [id number], [place] [id number] Repository 28074Ejz: (330) melissa Date:0605-52-71DA [phone] () [address]QXLOGEBRASHAWN LARSON [address]XL: 10/29/2018 Secondary NOT GIVENUNK [place] Insurance:SELF PAY [facility] Number: Effective Repository Date:2018-10-29 10/27/2018 ROBERT R Primary ROBERT R [place] [id number] OLD Insurance:ANTHEMPolic MALEYDOB: [facility] [place] Number: [id number], [place] [id number] Repository 75070Vsb: (336) melissa Date:1958-83-14XZ [phone] () [address] [place] [address] 817[address]GT: 10/27/2018 Secondary NOT GIVENUNK Emperatriz Insurance:SELF PAY [facility] Number: Effective Repository Date:2018-10-27 10/13/2018 ROBERT R Primary ROBERT R [place] [id number] OLD Insurance:ANTHEMPolic MALEYDOB: [facility] [place] Number: [id number], [place] [id number] Repository 17398Vmh: (387) melissa Date:5000-86-50GW [phone] () [address]ELJZTJD [place] [address]VI: 10/13/2018 Secondary NOT GIVENUNK Emperatriz Insurance:SELF PAY [facility] Number: Effective Repository Date:2018-10-08 09/23/2018 ROBERT R Primary ROBERT R [place] [id number] OLD Insurance:ANTHEMPolic MALEYDOB: [facility] [place] Number: [id number], [place] [id number] Repository 16301Orl: (174) melissa Date:4237-02-97VW [phone] () [address]XPCNGEW [place] [address]PP: 09/23/2018 Secondary NOT GIVENUNK Emperatriz Insurance:SELF PAY [facility] Number: Effective Repository Date:2018-09-23 09/01/2018 ROBERT R Primary ROBERT R Emperatriz [id number] OLD Insurance:ANTHEMPolic MALEYDOB: [facility] [place] Number: [id number], [place] [id number] Repository 75490Qeo: (330) melissa Date:8047-87-96NC [phone] () [address]QNKPAXX, [place] [address]HM: 09/01/2018 Secondary NOT GIVENUNK Emperatriz Insurance:SELF PAY [facility] Number: Effective Repository Date:2018-09-01 09/01/2018 ROBERT R Primary ROBERT R Emperatriz [id number] OLD Insurance:ANTHEMPolic MALEYDOB: Community SAL y Number: [id number], [place] [id number] Repository 94489Ahr: (267) melissa Date:2948-60-86DQ [phone] () [address]DKZGERJ, [place] [address]GL: 09/01/2018 Secondary NOT GIVENUNK [place] Insurance:SELF PAY [facility] Number: Effective Repository Date:2018-08-27 08/27/2018 ROBERT R Primary ROBERT R [place] [id number] OLD Insurance:ANTHEMPolic MALEYDOB: Community [place] y Number: [id number], [place] [id number] Repository 13099Iys: (330) melissa Date:5036-24-61RG [phone] () [address]VCKDUKX, [place] [address]NB: 08/27/2018 Secondary NOT GIVENUNK [place] Insurance:SELF PAY [facility] Number: Effective Repository Date:2018-08-27 08/27/2018 ROBERT R Primary ROBERT R [place] [id number] OLD Insurance:ANTHEMPolic MALEYDOB: Community [place] y Number: [id number], [place] [id number] Repository 82687Kug: (330) melissa Date:6626-97-75EV [phone] () [address]TVHLYFF, [place] [address]YI: 08/27/2018 Secondary NOT GIVENUNK Emperatriz Insurance:SELF PAY [facility] Number: Effective Repository Date:2018-08-27 08/10/2018 ROBERT R Primary ROBERT R Emperatriz [id number] OLD Insurance:ANTHEMPolic MALEYDOB: [facility] [place] Number: [id number], [place] [id number] Repository 04632Scr: (330) melissa Date:6429-04-47NU [phone] () [address]UHYRSGW, [place] [address]SZ: 08/10/2018 Secondary NOT GIVENUNK [place] Insurance:SELF PAY [facility] Number: Effective Repository Date:2018-08-10 08/02/2018 ROBERT R Primary ROBERT R [facility] MALEYDOB: Insurance:BLUE CARD [facility]: [id number] Repository [facility] [id number] [place] melissa Date: [address]Elf: () 08/01/2018 ROBERT R Primary ROBERT R [place] [id number] OLD Insurance:ANTHEMPolic MALEYDOB: [facility] [place] Number: [id number], [place] [id number] Repository 13147Psi: (330) melissa Date:5536-73-96VK [phone] () [address] [address]TR: 08/01/2018 Secondary NOT GIVENUNK [place] Insurance:SELF PAY [facility] Number: Effective Repository Date:2018-08-01 08/01/2018 ROBERT R Primary ROBERT R [place] [id number] OLD Insurance:ANTHEMPolic MALEYDOB: [facility] [place] Number: [id number], [place] [id number] Repository 68929Eis: (068) melissa Date:4434-81-34NB [phone] () [address]JNSXLUFRASHAWN LAR[address] [address]HI: 08/01/2018 Secondary NOT GIVENUNK Emperatriz Insurance:SELF PAY [facility] Number: Effective Repository Date:2018-08-01 08/01/2018 ROBERT R Primary ROBERT R Emperatriz [id number] OLD Insurance:ANTHEMPolic MALEYDOB: [facility] [place] Number: [id number], [place] [id number] Repository 72929Tqq: (330) melissa Date:1823-50-46TK [phone] () [address]PRCXLVS, [place] [address]MH: 08/01/2018 Secondary NOT GIVENUNK [place] Insurance:SELF PAY [facility] Number: Effective Repository Date:2018-08-01 08/01/2018 ROBERT R Primary ROBERT R Emperatriz [id number] OLD Insurance:ANTHEMPolic MALEYDOB: [facility] [place] Number: [id number], [place] [id number] Repository 98346Pbp: (330) melissa Date:2154-62-34QJ [phone] () [address]SMGZUOQRASHAWN LARSON [address]XF: 08/01/2018 Secondary NOT GIVENUNK [place] Insurance:SELF PAY [facility] Number: Effective Repository Date:2018-08-01 08/01/2018 ROBERT R Primary ROBERT R Emperatriz [id number] OLD Insurance:ANTHEMPolic MALEYDOB: [facility] [place] Number: [id number], [place] [id number] Repository 25442Cij: (330) melissa Date:5149-79-50OC [phone] () [address]SOOOUVP, [place] [address]UZ: 08/01/2018 Secondary NOT GIVENUNK Emperatriz Insurance:SELF PAY [facility] Number: Effective Repository Date:2018-08-01 07/11/2018 ROBERT R Primary ROBERT R Emperatriz [id number] OLD Insurance:ANTHEMPolic MALEYDOB: [facility] [place] Number: [id number], [place] [id number] Repository 98829Kqw: (330) melissa Date:9826-66-72BC [phone] () [address]QOACRGZ, [place] [address]QC: 07/11/2018 Secondary NOT GIVENUNK Emperatriz Insurance:SELF PAY [facility] Number: Effective Repository Date:2018-07-10 07/10/2018 ROBERT R Primary ROBERT R [place] [id number] OLD Insurance:ANTHEMPolic MALEYDOB: [facility] [place] Number: [id number], [place] [id number] Repository 49875Ooz: (774) melissa Date:8180-46-48PG [phone] () [address] [place] [address] 77[address]WV: 07/10/2018 Secondary NOT GIVENUNK Emperatriz Insurance:SELF PAY [facility] Number: Effective Repository Date:2018-07-10 07/08/2018 ROBERT R Primary ROBERT R [place] [id number] OLD Insurance:ANTHEMPolic MALEYDOB: [facility] [place] Number: [id number], [place] [id number] Repository 00205Dpc: (092) melissa Date:5328-12-77DJ [phone] () [address]NTPNLJZ, [place] [address]XB: 07/08/2018 Secondary NOT GIVENUNK [place] Insurance:SELF PAY [facility] Number: Effective Repository Date:2018-07-04 07/04/2018 ROBERT R Primary ROBERT R Emperatriz [id number] OLD Insurance:ANTHEMPolic MALEYDOB: [facility] [place] Number: [id number], [place] [id number] Repository 45675Ocn: (783) melissa Date:5710-70-12BR [phone] () [address]GGTNVFU, [place] [address]RR: 07/04/2018 Secondary NOT GIVENUNK [place] Insurance:SELF PAY [facility] Number: Effective Repository Date:2018-07-04 07/04/2018 ROBERT R Primary ROBERT R Emperatriz [id number] OLD Insurance:ANTHEMPolic MALEYDOB: [facility] [place] Number: [id number], [place] [id number] Repository 01542Hzk: (330) melissa Date:4607-85-38KT [phone] () [address]KNMYVWNRASHAWN LARSON [address]UH: 07/04/2018 Secondary NOT GIVENUNK Emperatriz Insurance:SELF PAY [facility] Number: Effective Repository Date:2018-07-04 07/03/2018 ROBERT R Primary ROBERT R Emperatriz [id number] OLD Insurance:ANTHEMPolic MALEYDOB: [facility] [place] Number: [id number], [place] [id number] Repository 90502Ipj: (330) melissa Date:0109-63-34ZD [phone] () [address]MEXIDFV, [place] [address]PI: 07/03/2018 Secondary NOT GIVENUNK Emperatriz Insurance:SELF PAY [facility] Number: Effective Repository Date:2018-07-03 07/01/2018 ROBERT R Primary ROBERT R [place] [id number] OLD Insurance:ANTHEMPolic MALEYDOB: [facility] [place] Number: [id number], [place] [id number] Repository 26207Oci: (330) melissa Date:9766-86-81FM [phone] () [address]SCMHAXI, [place] [address]MK: 07/01/2018 Secondary NOT GIVENUNK Emperatriz Insurance:SELF PAY [facility] Number: Effective Repository Date:2018-07-01 06/24/2018 ROBERT R Primary ROBERT R Emperatriz [id number] OLD Insurance:ANTHEMPolic MALEYDOB: [facility] [place] [place] Number: [id number], [place] [id number] Repository 43527Yns: (330) melissa Date:8626-04-48YM [phone] () [address]UFJGOBT, [place] [address]CD: 06/24/2018 Secondary NOT GIVENUNK [place] Insurance:SELF PAY [facility] Number: Effective Repository Date:2018-06-13 06/24/2018 ROBERT R Primary ROBERT R [place] [id number] OLD Insurance:ANTHEMPolic MALEYDOB: [facility] [place] Number: [id number], [place] [id number] Repository 29231Qqn: (330) melissa Date:1636-31-13UP [phone] () [address] [place] [address]FQ: 06/24/2018 Secondary NOT GIVENUNK Emperatriz Insurance:SELF PAY [facility] Number: Effective Repository Date:2018-06-24 06/12/2018 ROBERT R Primary ROBERT R Emperatriz [id number] OLD Insurance:ANTHEMPolic MALEYDOB: [facility] [place] Number: [id number], [place] [id number] Repository 04342Hvl: (330) melissa Date:2517-84-16HQ [phone] () [address] [place] [address] 38[address]DD: 06/12/2018 Secondary NOT GIVENUNK [place] Insurance:SELF PAY [facility] Number: Effective Repository Date:2018-05-22 2018 ROBERT R Primary ROBERT R Emperatriz [id number] OLD Insurance:ANTHEMPolic MALEYDOB: [facility] [place] Number: [id number], [place] [id number] Repository 12256Wca: (330) melissa Date:0270-86-64IM [phone] () [address]TUVTNLE[address] [place] [address] 639[address]NP: 2018 Secondary NOT GIVENUNK Emperatriz Insurance:SELF PAY [facility] Number: Effective Repository Date:2018 05/31/2018 ROBERT R Primary ROBERT R Emperatriz [id number] OLD Insurance:ANTHEMPolic MALEYDOB: [facility] [place] [place] Number: [id number], [place] [id number] Repository 87062Dhd: (330) melissa Date:0699-40-63DR [phone] () [address]ZAPPFGT, [place] [address]PM: 05/31/2018 Secondary NOT GIVENUNK Emperatriz Insurance:SELF PAY [facility] Number: Effective Repository Date:2018-05-31 05/22/2018 ROBERT R Primary ROBERT R Emperatriz [id number] OLD Insurance:ANTHEMPolic MALEYDOB: Community [place] y Number: [id number], [place] [id number] Repository 44663Plv: (330) melissa Date:9658-64-08ZH [phone] () [address]WCHWZACRASHAWN LAR[address] [address]CQ: 05/22/2018 Secondary NOT GIVENUNK [place] Insurance:SELF PAY [facility] Number: Effective Repository Date:2018-05-16 05/15/2018 ROBERT R Primary ROBERT R Emperatriz [id number] OLD Insurance:ANTHEMPolic MALEYDOB: [facility] [place] [place] Number: [id number], [place] [id number] Repository 17555Akz: (330) melissa Date:4606-84-65YP [phone] () [address]GKONGWLRASHAWN LARSON [address]RO: 05/15/2018 Secondary NOT GIVENUNK [place] Insurance:SELF PAY [facility] Number: Effective Repository Date:2018-04-23 05/15/2018 ROBERT R Primary ROBERT R Emperatriz [id number] OLD Insurance:ANTHEMPolic MALEYDOB: [facility] [place] Number: [id number], [place] [id number] Repository 51537Isf: (330) melissa Date:2057-01-91XC [phone] () [address]LSRZFWTRASHAWN LARSON [address]AP: 05/15/2018 Secondary NOT GIVENUNK [place] Insurance:SELF PAY [facility] Number: Effective Repository Date:2018-05-15 04/23/2018 ROBERT R Primary ROBERT R Emperatriz [id number] OLD Insurance:ANTHEMPolic MALEYDOB: [facility] [place] [place] Number: [id number], [place] [id number] Repository [address]96[address]Wgp: melissa Date:3707-77-03PW [phone]~330 [address]VVNPVJARASHAWN LARSON () [address]RN: 04/23/2018 Secondary NOT GIVENUNK Emperatriz Insurance:SELF PAY [facility] Number: Effective Repository Date:2018-04-03 04/17/2018 ROBERT R Primary ROBERT R [place] [id number] OLD Insurance:ANTHEMPolic MALEYDOB: [facility] [place] Number: [id number], [place] [id number] Repository 59[address]Cbw: melissa Date:4839-56-86VU [phone]~330 [address]PLYEZCGRASHAWN LARSON4 () [address]YJ: 04/17/2018 Secondary NOT GIVENUNK Emperatriz Insurance:SELF PAY [facility] Number: Effective Repository Date:2018-04-17 04/11/2018 ROBERT R Primary ROBERT R [place] [id number] OLD Insurance:ANTHEMPolic MALEYDOB: [facility] [place] Number: [id number], [place] [id number] Repository [address]07[address]Njh: melissa Date:2499-13-60HO [phone]~330 [address]MMGTMGB, [place] -4 () [address]ZS: 04/11/2018 Secondary NOT GIVENUNK Emperatriz Insurance:SELF PAY [facility] Number: Effective Repository Date:2018-04-03 03/01/2018 ROBERT R Primary ROBERT R Em[place]riz [id number] OLD Insurance:ANTHEMPolic MALEYDOB: [facility] [place] Number: [id number], [place] [id number] Repository 22986Whm: melissa Date:4951-31-76IN [phone]~330 [address]YRDMCIERASHAWN LARSON () [address]VB: 03/01/2018 Secondary NOT GIVENUNK [place] Insurance:SELF PAY [facility] Number: Effective Repository Date:2018-03-01 01/21/2018 ROBERT R Primary ROBERT R Emperatriz [id number] OLD Insurance:ANTHEMPolic MALEYDOB: [facility] [place] Number: [id number], [place] [id number] Repository [address]Bpz: melissa Date:[id number] [phone] [address]TJPHFOU, [place] -4 () [id number]: 01/21/2018 Secondary NOT GIVENUNK Emperatriz Insurance:SELF PAY [facility] Number: Effective Repository Date:2018-01-13 01/20/2018 ROBERT R Primary ROBERT R Savage [id number] OLD Insurance:ANTHEMPolic MALEYDOB: [facility] [place] Number: [id number] [id number] Repository 37809Tfc: melissa Date:6950-42-37YR [phone] [address]TPEWCFA, [place] -4 () 12763HZ: 01/20/2018 Secondary NOT GIVENUNK Savage Insurance:SELF PAY [facility] Number: Effective Repository Date:2018-01-20 01/18/2018 ROBERT R Primary NOT GIVENUNK Emperatriz [id number] OLD Insurance[place]LF [place] Number: Effective Repository 92527Vml: Date:2018-01-18 ~330 -4 () 01/14/2018 ROBERT R Primary ROBERT R Savage [id number] OLD Insurance:ANTHEMPolic MALEYDOB[place] [facility] [place] Number: [id number] [id number] Repository 78690Kfx: melissa Date:8678-16-30WH [phone] [address]YYEVFYE, [place] -4 () 27866YY: 01/14/2018 Secondary NOT GIVENUNK Emperatriz Insurance:SELF PAY [facility] Number: Effective Repository Date:2018-01-13 01/14/2018 ROBERT R Primary ROBERT R Emperatriz [id number] OLD Insurance:ANTHEMPolic MALEYDOB: [facility] [place] Number: [id number], [place] [id number] Repository 18040Wrx: melissa Date:4270-11-08JA [phone]~330 [address]YKWQMNY, [place] -4 () 90804BU: 01/14/2018 Secondary NOT GIVENUNK Emperatriz Insurance:SELF PAY [facility] Number: Effective Repository Date:2018-01-13 01/14/2018 ROBERT R Primary ROBERT R Savage [id number] OLD Insurance:ANTHEMPolic MALEYDOB: [facility] [place] Number: [id number], [place] [id number] Repository 04463Thd: melissa Date:5853-61-85OE [phone]~330 [address]BXEMTLC, [place] -4 () 96728WW: 01/14/2018 Secondary NOT GIVENUNK Savage Insurance:SELF PAY [facility] Number: Effective Repository Date:2018-01-14 01/13/2018 ROBERT R Primary ROBERT R Savage [id number] OLD Insurance:ANTHEMPolic MALEYDOB: [facility] [place] Number: [id number], [place] [id number] Repository 19999Cyb: melissa Date:7768-52-60ZJ [phone] [address]EDFDZMC, [place] -4 () 50355XK: 01/13/2018 Secondary NOT GIVENUNK Emperatriz Insurance:SELF PAY [facility] Number: Effective Repository Date:2018-01-13 01/13/2018 Robert R Primary ROBERT R Emperatriz [id number] Old Insurance:ANTHEMPolic MALEYDOB: [facility] y Number: [id number], [place] [id number] Repository 79[address]Rqz: (330) melissa Date:6267-98-69VQ [phone] () [address]KAPQUTYRASHAWN LARSON 07235VK: 01/13/2018 Secondary NOT GIVENUNK Savage Insurance:SELF PAY [facility] Number: Effective Repository Date:2018-01-10 01/10/2018 Robert R Primary ROBERT R Emperatriz [id number] Old Insurance:ANTHEMPolic MALEYDOB: [facility] y Number: [id number], [place] [id number] Repository [address]Wdi: (330) melissa Date:3857-37-76OI [phone] () [address]WKWVZEARASHAWN LARSON 98147XH: 01/10/2018 Secondary NOT GIVENUNK Savage Insurance:SELF PAY [facility] Number: Effective Repository Date:2018-01-10 01/03/2018 Robert R Primary ROBERT R Savage [id number] Old Insurance:ANTHEMPolic MALEYDOB: [facility] [place] y Number: [id number], [place] [id number] Repository 820[address]Ncp: (330) melissa Date:5293-58-06ZY [phone] () [address]CQBJXDVRASHAWN LARSON 98522YH: 01/03/2018 Secondary NOT GIVENUNK Savage Insurance:SELF PAY [facility] Number: Effective Repository Date:2018-01-03 01/03/2018 ROBERT R Primary ROBERT R Savage [id number] OLD Insurance:ANTHEMPolic MALEYDOB: [facility] [place] y Number: [id number], [place] [id number] Repository 465[address]Xra: melissa Date:9136-52-11XA [phone] [address]HXFEBBORASHAWN LARSON -4 (HP) [id number]: 01/03/2018 Secondary NOT GIVENUNK Emperatriz Insurance:SELF PAY [facility] Number: Effective Repository Date:2018-01-03 01/03/2018 ROBERT R Primary ROBERT R Savage [id number] OLD Insurance:ANTHEMPolic MALEYDOB: [facility] [place] Number: [id number], [place] [id number] Repository 98391Vpx: melissa Date:4358-27-86JH [phone]~330 [address]VZYUWCXRASHAWN RIZO () 96410PZ: 01/03/2018 Secondary NOT GIVENUNK Savage Insurance:SELF PAY [facility] Number: Effective Repository Date:2018-01-03 01/03/2018 ROBERT R Primary ROBERT R Emperatriz [id number] OLD Insurance:ANTHEMPolic MALEYDOB: [facility] [place] Number: [id number], [place] [id number] Repository 35073Gns: melissa Date:1353-36-25YA [phone] [address]BUKUVIBRASHAWN RIZO () 06685KA: 01/03/2018 Secondary NOT GIVENUNK Savage Insurance:SELF PAY [facility] Number: Effective Repository Date:2018-01-03 01/03/2018 ROBERT R Primary ROBERT R Savage [id number] OLD Insurance:ANTHEMPolic MALEYDOB: [facility] [place] Number: [id number], [place] [id number] Repository 34053Nry: melissa Date:1765-41-89UZ [phone]~330 [address]RHNTDCQRASHAWN RIZO () 84323VV: 01/03/2018 Secondary NOT GIVENUNK Emperatriz Insurance:SELF PAY [facility] Number: Effective Repository Date:2018-01-03 01/03/2018 ROBERT R Primary ROBERT R Savage [id number] OLD Insurance:ANTHEMPolic MALEYDOB: [facility] [place] Number: [id number], [place] [id number] Repository 77[address]Eci: melissa Date:8922-93-51VM [phone]~330 [address]GTAVYTP, [place] -4 (HP) 95076VK: 01/03/2018 Secondary NOT GIVENUNK Emperatriz Insurance:SELF PAY [facility] Number: Effective Repository Date:2018-01-03
== END 2018-11-06 14:53 | disposition home or self-care (01) ==
LOC: SDC 09:57 → AC 09:58
PROVIDERS: Family Provider Family Medicine; PCP Family Medicine; Referring Provider Surgery; Visit Provider Surgery
PROC: (CPT 36821; principal; 2018-11-06 11:45)
DX: T82.868A Thrombosis due to vascular prosthetic devices, implants and grafts, initial encounter (principal); I12.0 Hypertensive chronic kidney disease with stage 5 chronic kidney disease or end stage renal disease; N18.6 End stage renal disease; E11.22 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 diabetic chronic kidney disease; N17.9 Acute kidney failure, unspecified; Z99.2 Dependence on renal dialysis; E03.9 Hypothyroidism, unspecified; E78.5 Hyperlipidemia, unspecified; G47.30 Sleep apnea, unspecified; Z79.899 Other long term (current) drug therapy
CPT/HCPCS: 36821; 82962; J2405

== ENCOUNTER 2018-12-09 10:55 | Inpatient (IN) | payer BC, MEDICARE, SELFPAY ==
[2018-11-06 10:20] VITALS: BMI 25.7
[2018-12-09] VITALS (15 sets, daily range): BP systolic 136–155; BP diastolic 62–73; PULSE 75–94; RESP 11–18; TEMP 36.4–36.7; O2SAT 94–99; BMI 25.1; BMI 25.3
--- NOTE | 2018-12-09 11:16 | RAD_ITS ---
STUDY: X-RAY CHEST REASON FOR EXAM: Male, 58 years old. Left-sided chest pain x 2 days. History of kidney failure. TECHNIQUE: AP portable upright view of the chest on 2 images. COMPARISON: Portable AP upright chest x-ray October 31, 2018. FINDINGS: The tunneled dual-lumen right chest wall hemodialysis catheter again has its tip in the superior vena cava. The lungs are clear and moderately expanded. There is no demonstrated pleural abnormality. Normal size heart. Normal mediastinum and kieran. Normal visualized pulmonary arteries. Normal visualized aortic arch and descending thoracic aorta. Normal visualized thoracic spine. Normal visualized ribs, clavicles, and shoulders. There is no demonstrated abnormality of the visualized soft tissue structures of the upper abdomen. RAD/Chest 1 View (Portable) IMPRESSION: No acute cardiopulmonary disease. Electronically Signed: Pancho Reyes MD at 12:22 EST , Service support ,
--- NOTE | 2018-12-09 11:16 | EKG12_ITS ---
Test Reason : CHEST PAIN Blood Pressure : / mmHG Vent. Rate : 076 BPM Atrial Rate : 076 BPM P-R Int : 142 ms QRS Dur : 078 ms QT Int : 446 ms P-R-T Axes : 070 026 059 degrees QTc Int : 501 ms Normal sinus rhythm Prolonged QT Abnormal ECG Confirmed by ANABELL COLON, SASHA ([id number]), electronic news gathering editor HARPAL REVELES ([id number]) on 12/11/2018 3:54:20 PM Referred By: Nancie Wilkes Confirmed By:SASHA HUNG MD
[2018-12-09] MEDS: Ipratropium/Albuterol Sulfate 3 ML AMPUL.NEB INHALATION (11:22)
[2018-12-09 11:49] LABS: Absolute Lymphocyte Count 0.85 X10^3/ul (0.83-4.51); Absolute Neutrophil Count 10.6 X10^3/uL (2.0-7.7); Basophil# 0.03 X10^3/uL; Basophil% 0.2 % (0-1); Eosinophil# 0.17 X10^3/uL; Eosinophils% 1.3 % (0-5); Hematocrit 33.6 % (40-54); Hemoglobin 10.2 g/dl (13.0-16.5); Lymphocyte # 0.85 X10^3/ul (4.0); Lymphocyte % 6.7 % (19-41); Mean Corp Hgb Conc 30.4 g/gl (32-36); Mean Corpuscular Hgb 27.1 pg (27.0-32.0); Mean Corpuscular Volume 89.1 fL (80-94); Mean Platelet Vol. 9.8 fl (6.2-12.0); Monocyte# 0.96 X10^3/uL; Monocyte% 7.6 % (0-10); Neutrophil # 10.58 X10^3/uL (2.7-7.7); POSITIVE COUNT NO; POSITIVE DIFFERENTIAL NO; POSITIVE MORPHOLOGY NO; Platelet Count 369 K/mm3 (150-450); RBC Distribution Width SD 51.3 fl (35.1-43.9); Red Blood Count 3.77 M/mm3 (4.6-6.2); White Blood Count 12.6 K/mm3 (4.4-11.0)
[2018-12-09 12:04] LABS: ALB/GLOB Ratio 0.7 RATIO (0.9-2.4); AST(SGOT) 44 U/L (15-37); Alanine Aminotransfer ALT/SGPT 16 U/L (16-61); Albumin, Serum 3.3 g/dL (3.2-5.0); Alkaline Phosphatase 56 U/L (45-117); Anion Gap 9 (5-15); BUN 23 mg/dL (7-18); BUN/Creat Ratio 5.2 RATIO (10-20); Calcium,Total 8.9 mg/dL (8.5-10.1); Chloride 94 mmol/L (98-107); Creatinine, Serum 4.43 mg/dL (0.70-1.30); EST Glomerular Filtration Rate 15 mL/min (>60); Est Glom Filt Rate - Afr Amer 18 mL/min (>60); Estimated Creatinine Clearance 19.22 ml/min; Glucose 101 mg/dL (74-106); Potassium 4.7 mmol/L (3.5-5.1); Protein, Total 8.3 g/dL (6.4-8.2); Sodium Level 134 mmol/L (136-145)
--- NOTE | 2018-12-09 13:13 | CT_ITS ---
STUDY: CTA CHEST REASON FOR EXAM: Male, 58 years old. Chest pain. Possible pulmonary embolism. RADIATION DOSAGE (If Supplied By Facility): CTDIvol = ( 18.77 ) mGy, DLP = ( 618.44 ) mGycm TECHNIQUE: The examination was performed with the intravenous administration of 100 ml of Isovue 370 contrast material. Post-processing of the angiographic images was performed, with multiplanar reformation and 3D reconstruction. Individualized dose optimization techniques were used for this CT. COMPARISON: None. FINDINGS: Normal enhancement of the main pulmonary artery and right and left pulmonary arteries. Normal enhancement of the bilateral peripheral pulmonary arteries. There is no demonstrated pulmonary embolism. There is atherosclerotic calcification of the aortic arch with tortuosity. There is no demonstrated aortic dissection. There are calcifications of the coronary arteries. There are visualized mediastinal lymph nodes, which are within normal size limits, and with normal morphology. Normal hilar regions. Normal visualized trachea and bronchi. The lungs are well expanded. Diffuse groundglass appearance in both upper lobes as well as in the lower lobes slightly worse on the left side. This may represent pneumonic infiltrates. Follow-up is recommended. Normal pleura. Normal chest wall structures. There are degenerative changes of thoracic spine. Left adenopathy is seen in the retrocrural region of both right and left hemidiaphragms. The largest lymph node is on the right side and measures 2.1 cm. I also suspect lymphadenopathy in the peripancreatic region. CT/CTA Chest W/WO Contrast IMPRESSION: Diffuse groundglass appearance in both upper lobes as well as in the lower lobes slightly worse on the left side. This may represent pneumonic infiltrates. Electronically Signed: Godwin Palmer MD at 14:40 EST Tel [phone], Service support ,
--- NOTE | 2018-12-09 15:22 | NURSING ---
DR COLBY KENNY
[2018-12-09] MEDS: Piperacil/Tazobactam 3.375 GM/50 ML ML IV ×2 (15:23→21:29)
--- NOTE | 2018-12-09 15:26 | ED.VISSUMM ---
- ER Visit Summary Date of Service: 12/09/18 Chief Complaint: Chest pain History of Present Illness: The patient is a 58 M with left-sided chest pain that has been getting worse over the past 5 days. Patient has had some chills, nausea, vomiting, joint aches, left side chest pressure radiating to his left arm, shortness of breath, and hypoxia 89% at home. Patient has a history of end-stage renal disease and goes to hemodialysis, Saturday, , and Saturday. He did have his dialysis today. Physical Examination: Afebrile and vital signs unremarkable. 99% on room air. Alert and oriented. No acute distress. Heart regular. Lungs clear. Abdomen soft. Skin appears unremarkable. Test Results: EKG showed sinus rhythm at a rate of 76. White count 12.6 and hemoglobin 10.2. Metabolic panel unremarkable. Troponin normal. Lactate pending. Cultures pending. Chest x-ray was unremarkable. CTA showed diffuse groundglass infiltrates worse on the left concerning for pulmonary infiltrates. Emergency Department Course and Treatment: Patient presents with chest pain as well as respiratory and infectious symptoms. His EKG and labs were initially unremarkable. Chest x-ray unremarkable. There was concern for PE, and so a CTA was performed after consultation with his special programs director. This showed no evidence of PE, but he does have groundglass infiltrates worse on the left where his pain is. I spoke with the patient. He has had infectious and respiratory symptoms. I suspect this is a pneumonia. I added on cultures and a lactate. I treated him with Zosyn and vancomycin since he is a dialysis patient. He is not hypoxic here but has had some hypoxia at home. He had a history of hypoxia from pneumonia and required hospitalization in the past. He was discussed with the hospitalist and will be admitted for further care. Treatment Plan: As above Disposition: Admission Impression: 1. Bilateral pneumonia 2. End-stage renal disease This note was generated with Kog[employer] software. It may contain incorrect words, spelling, and punctuation that were not noted in review of the chart prior to signing ED Disposition - Plan for ED Patient: Chief Complaint: Chest Pain Referrals: Marques Caba MD [Primary Care Provider] -
--- NOTE | 2018-12-09 15:29 | ED.DCSUM_ITS ---
- ER Visit Summary Date of Service: 12/09/18 Chief Complaint: Chest pain History of Present Illness: The patient is a 58 M with left-sided chest pain that has been getting worse over the past 5 days. Patient has had some chills, nausea, vomiting, joint aches, left side chest pressure radiating to his left arm, shortness of breath, and hypoxia 89% at home. Patient has a history of end-stage renal disease and goes to hemodialysis, Saturday, , and Saturday. He did have his dialysis today. Physical Examination: Afebrile and vital signs unremarkable. 99% on room air. Alert and oriented. No acute distress. Heart regular. Lungs clear. Abdomen soft. Skin appears unremarkable. Test Results: EKG showed sinus rhythm at a rate of 76. White count 12.6 and hemoglobin 10.2. Metabolic panel unremarkable. Troponin normal. Lactate pending. Cultures pending. Chest x-ray was unremarkable. CTA showed diffuse groundglass infiltrates worse on the left concerning for pulmonary infiltrates. Emergency Department Course and Treatment: Patient presents with chest pain as well as respiratory and infectious symptoms. His EKG and labs were initially unremarkable. Chest x-ray unremarkable. There was concern for PE, and so a CTA was performed after consultation with his data management analyst. This showed no evidence of PE, but he does have groundglass infiltrates worse on the left where his pain is. I spoke with the patient. He has had infectious and respiratory symptoms. I suspect this is a pneumonia. I added on cultures and a lactate. I treated him with Zosyn and vancomycin since he is a dialysis patient. He is not hypoxic here but has had some hypoxia at home. He had a history of hypoxia from pneumonia and required hospitalization in the past. He was discussed with the hospitalist and will be admitted for further care. Treatment Plan: As above Disposition: Admission Impression: 1. Bilateral pneumonia 2. End-stage renal disease This note was generated with [employer]ation software. It may contain incorrect words, spelling, and punctuation that were not noted in review of the chart prior to signing ED Disposition - Plan for ED Patient: Chief Complaint: Chest Pain Referrals: Marques Caba MD [Primary Care Provider] -
--- NOTE | 2018-12-09 15:43 | NURSING ---
109 PNEUMONIA, DIALYSIS ASHELFAH
--- NOTE | 2018-12-09 15:49 | HP.PCM_ITS ---
<Lance Hernandez - Last Filed: 12/09/18 15:50> Problem List (1) Pneumonia Status: Acute (2) Anemia Status: Chronic (3) ESRD (end stage renal disease) Status: Chronic (4) Problem with dialysis access Status: Chronic (5) Chronic renal insufficiency, stage V Status: Chronic (6) Hyperlipidemia Status: Chronic (7) Hypothyroidism Status: Chronic (8) Type II diabetes mellitus Status: Chronic (9) DAVID (obstructive sleep apnea) Status: Chronic History of Present Illness Date of Admission: 12/09/18 Chief Complaint: chest pain The patient is a 58 year old M with pmhx of ESRD (patient of Dr. Blakely), with access problems in his left arm (pt of Dr. Owens), diastolic CHF, GI bleed without clear etiology, chronic abdominal pain and adenopathy, HTN, hypothytroid, GERD, DMt2, DAVID, who presented to the ER with a chief complaint of left sided chest pain. He states he began to feel unwell on Saturday, and ini tially began with chills, nausea and vomiting, and all over body aches. He then developed a cough that is productive of dark red blood. Later the chest pain developed, which is across the lateral aspect of his left chest. He went to dialysis this AM and had 3.5 hour session, then was sent to the ER. He is not hypoxic or SOB. And appears comfortable on room air. He does appear to have BL pna. He reports that his mother in law whom he lives with is sick on antibiotics for bronchitis. He will be admitted to the PCU with HCAP. Also of note, has been receiving dialysis thru his central line, as his AV fistula is not functioning, and he is supposed to see Graciela for this Saturday. [] Past Medical History Past Medical History (Chronic Problems): Chronic Problems (Last Reviewed 11/28/18 @ 13:01 by Amanda Adrian) End stage renal disease on dialysis (Chronic) Anemia (Chronic) ESRD (end stage renal disease) (Chronic) Problem with dialysis access (Chronic) DAVID (obstructive sleep apnea) (Chronic) Lymphadenopathy (Chronic) Hyperlipidemia (Chronic) Hypothyroidism (Chronic) Hypertension (Chronic) Type II diabetes mellitus (Chronic) Medical History: Medical History (Last Reviewed 11/28/18 @ 13:01 by Amanda Adrian) Problem with dialysis access (Acute) T82.898A Enteritis (Acute) K52.9 Lymphadenopathy (Chronic) R59.1 Chronic renal insufficiency, stage V (Chronic) N18.5 ELMO (acute kidney injury) (Acute) N17.9 Hyperkalemia (Acute) E87.5 Hyperlipidemia (Chronic) E78.5 Hypothyroidism (Chronic) E03.9 Hypertension (Chronic) I10 Type II diabetes mellitus (Chronic) E11.9 Community acquired pneumonia (Acute) J18.9 Allergies epoetin beta [From Mircera] Adverse Reaction (Verified 12/09/18 10:59) back pain Home Medications: Ambulatory Orders Medication Instructions Recorded Levothyroxine [Synthroid] 150 mcg PO QHS 10/28/15 Simvastatin [Zocor] 20 mg PO QHS 10/28/15 Citalopram Hydrobromide 40 mg PO QHS 01/03/18 [Citalopram HBr] Ergocalciferol [Vitamin D] 50,000 unit PO QMONTH 01/21/18 Amlodipine [Norvasc] 10 mg PO QHS 05/08/18 hydrALAZINE [Apresoline] 25 mg PO TID 05/08/18 Calcium Acetate 2 cap PO TIDCM 08/01/18 Yoko-Anna 0.8 mg PO QHS 08/01/18 Surgical History: Surgical History (Last Reviewed 11/28/18 @ 13:01 by Amanda Adrian) H/O hernia repair Z98.890, Z87.19 Presence of surgically created arteriovenous shunt for hemodialysis Z99.2 LLE fistula-05/15/2018 S/P nasal surgery Z98.890 Surgical History: - - AV fistulas. Psychiatric History: No pertinent psych hx Lives: With Family Smoking Status: Never smoker Tobacco Use: Chew Alcohol: None Drugs: None - *Family History Maternal Family History: Family History (Last Reviewed 11/28/18 @ 13:01 by Amanda Adrian) Father No problems noted. History Items: Diabetes Paternal Family History: Family History (Last Reviewed 11/28/18 @ 13:01 by Amanda Adrian) Father No problems noted. History Items: Stroke Review of Systems Constitutional: Reports: Chills, Malaise, Fatigue Cardiovascular: Reports: Chest Pain. Denies: Edema, Orthopnea Respiratory: Reports: Cough, Hemoptysis, Pleuritic Pain. Denies: Shortness of Breath Gastrointestinal: Reports: Nausea, Vomiting. Denies: Abdominal Pain, Diarrhea VTE Information - Inpt Only VTE Present on Admission: No VTE Mechan Device Prophylaxis: SCD's VTE Pharm Prophylaxis ordered?: No Patient Problems: Active and Suspected Problems (Last Updated 12/09/18 @ 16:06 by Nancie Wilkes MD) Healthcare-associated pneumonia (Acute) - Physical Exam General: Alert, Oriented x3, Cooperative HEENT: Atraumatic, PERRLA, EOMI, Normocephalic Neck: Supple, No JVD, Negative Carotid Bruits Lungs: Diminished, Rales - L>R Cardiovascular: Regular rate, No murmurs Abdomen: Bowel Sounds Present, Soft, Non Tender Extremities: No edema, Capillary Refill Less than 3 Seconds Skin: No rashes, No breakdown Musculoskeletal: No Tenderness to Palpation of Joints or Extremities Neurological: Cranial nerves II-XII grossly intact Psych/Mental Status: Normal Affect, Appropriate, Alert and oriented to time, place, person, mood and affect Vital Signs Temp Pulse Resp BP Pulse Ox 98 F 81 16 150/65 H 94 12/09/18 10:56 12/09/18 15:17 12/09/18 15:17 12/09/18 15:17 12/09/18 15:17 Oxygen Delivery Method Room Air Weight: 175 lb 4.28 oz Body Mass Index (BMI) 25.1 Laboratory Tests Past 24 Hrs 12/09/18 12/09/18 11:10 11:10 WBC 12.6 H RBC 3.77 L Hgb 10.2 L Hct 33.6 L MCV 89.1 MCH 27.1 MCHC 30.4 L RDW 16.0 H RDW Differential 51.3 H Plt Count 369 MPV 9.8 Immature Gran % (Auto) 0.200 Neut % (Auto) 84.0 H Lymph % (Auto) 6.7 L Alfalfa % (Auto) 7.6 Eos % (Auto) 1.3 Baso % (Auto) 0.2 Absolute Neuts (auto) 10.6 H Absolute Lymphs (auto) 0.85 Total Counted Not Reportable Sodium 134 L Potassium 4.7 Chloride 94 L Carbon Dioxide 31.0 Anion Gap 9 BUN 23 H Creatinine 4.43 H Estim Creat Clear Calc 19.22 Est GFR (MDRD) Af Amer 18 L Est GFR (MDRD) Non-Af 15 L BUN/Creatinine Ratio 5.2 L Glucose 101 Calcium 8.9 Total Bilirubin 1.40 H AST 44 H ALT 16 Alkaline Phosphatase 56 Troponin I < 0.015 Total Protein 8.3 H Albumin 3.3 Globulin 5.0 H Albumin/Globulin Ratio 0.7 L Assessment/Plan All Active Problems (Last Updated 12/09/18 @ 16:06 by Nancie Wilkes MD) Healthcare-associated pneumonia (Acute) 1. Acute HCAP - CTA with BL pna. Rales on exam. Afebrile. Increased WBCs. Will give vanc and zosyn, mucinex, aerosols, IS therapy. Sputum culture if possible - he is reporting hemoptysis. Check respiratory panel. Family at home is sick as well. 2. Chest pain - symptoms are c/w pleurisy from pna. EKG negative, troponin negative. 3. ESRD - pt of Dr. Blakely - last session this AM. AV fistula issues - plans to see Dr. Owens Saturday to evaluate. 4. Hx diastolic CHF - no acute exacerbation 5. DAVID - compliant with CPAP qhs 6. Hx GI bleed of unclear etiology - was recently here for this and was transferred to [facility], reports no etiology was ID'd. 7. DMt2 - diet controlled only. 8. HLD - zocor 9. Anxiety - celexa 10. Hypothyroid - synthroid DVT ppx: SCDs. caution with anticoagulation given GI bleeding hx and hemoptysis. DC planning: Likely will return home without further needs This patient was seen by Lance Hernandez PA-C under the supervision of Doctor Chung. <Nancie Wilkes - Last Filed: 12/09/18 16:12> History of Present Illness The patient is a 58 year old M [] Past Medical History Medical History: Medical History (Last Reviewed 11/28/18 @ 13:01 by Amanda Adrian) Lymphadenopathy (Chronic) R59.1 Hyperlipidemia (Chronic) E78.5 Hypothyroidism (Chronic) E03.9 Hypertension (Chronic) I10 Type II diabetes mellitus (Chronic) E11.9 Allergies epoetin beta [From Mircera] Adverse Reaction (Verified 12/09/18 10:59) back pain Surgical History: Surgical History (Last Reviewed 11/28/18 @ 13:01 by Amanda Adrian) H/O hernia repair Z98.890, Z87.19 Presence of surgically created arteriovenous shunt for hemodialysis Z99.2 LLE fistula-05/15/2018 S/P nasal surgery Z98.890 - *Family History Maternal Family History: Family History (Last Reviewed 11/28/18 @ 13:01 by Amanda Adrian) Father No problems noted. Paternal Family History: Family History (Last Reviewed 11/28/18 @ 13:01 by Amanda Adrian) Father No problems noted. - Physical Exam Vital Signs Temp Pulse Resp BP Pulse Ox 98 F 81 16 150/65 H 94 12/09/18 10:56 12/09/18 15:17 12/09/18 15:17 12/09/18 15:17 12/09/18 15:17 Oxygen Delivery Method Room Air Weight: 175 lb 4.28 oz Body Mass Index (BMI) 25.1 Laboratory Tests Past 24 Hrs 12/09/18 12/09/18 12/09/18 11:10 11:10 15:45 WBC 12.6 H RBC 3.77 L Hgb 10.2 L Hct 33.6 L MCV 89.1 MCH 27.1 MCHC 30.4 L RDW 16.0 H RDW Differential 51.3 H Plt Count 369 MPV 9.8 Immature Gran % (Auto) 0.200 Neut % (Auto) 84.0 H Lymph % (Auto) 6.7 L Alfalfa % (Auto) 7.6 Eos % (Auto) 1.3 Baso % (Auto) 0.2 Absolute Neuts (auto) 10.6 H Absolute Lymphs (auto) 0.85 Total Counted Not Reportable Sodium 134 L Potassium 4.7 Chloride 94 L Carbon Dioxide 31.0 Anion Gap 9 BUN 23 H Creatinine 4.43 H Estim Creat Clear Calc 19.22 Est GFR (MDRD) Af Amer 18 L Est GFR (MDRD) Non-Af 15 L BUN/Creatinine Ratio 5.2 L Glucose 101 Lactic Acid Pending Calcium 8.9 Total Bilirubin 1.40 H AST 44 H ALT 16 Alkaline Phosphatase 56 Troponin I < 0.015 Total Protein 8.3 H Albumin 3.3 Globulin 5.0 H Albumin/Globulin Ratio 0.7 L Assessment/Plan Hospitalist note: I am seeing this patient in conjunction with Lance Hernandez and I concur with the above. I independently seen and examined the patient. History and physical, laboratory data and imaging studies reviewed treatment and workup plan. Patient presented to the medicine because of 2-day history of fever and chills as well as malaise, body aches and not feeling well. Since yesterday, he started having left-sided chest pain, involving the whole left side of the chest both posteriorly and anteriorly, dull aching pain, not radiating, aggravated by movement or taking a deep breath and he was not able even to lay on his left side. He denied significant shortness of breath, dizziness or lightheadedness. At this time, his blood pressure slightly elevated, other vital signs are stable. Chest x-ray done and showed no obvious infiltrate or consolidation. CTA chest and showed no evidence of PE or dissection, revealed diffuse groundglass appearance of both upper lobes and lower lobes slightly worse on the left side. He is being admitted for bilateral healthcare associated pneumonia. - Physical Exam General: Alert, Oriented x3, Cooperative, No apparent distress. HEENT: Atraumatic, PERRLA, EOMI. Neck: Supple, No JVD, Negative Carotid Bruits, Trachea Midline, Thyroid Normal. Lungs: Decreased breath sounds bilateral, coarse crackles on the hold right lung, rhonchi, no wheezes.. Cardiovascular: Regular rate, Regular Rhythm, Normal S1, Normal S2, PMI Normal. Abdomen: Bowel Sounds Present, Soft, Non Tender, Non-Distended, No Hepato- splenomegaly. Extremities: No clubbing, No cyanosis, No edema Skin: No rashes, No breakdown Neurological: Cranial nerves are intact, neuro grossly intact. Assessment and plan: #1 acute bilateral healthcare associated pneumonia: CTA chest reviewed. Patient is not septic, no leukocytosis, lactic acid is pending. He is afebrile. His vital signs are stable except slightly for the blood pressure. Plan: Admit to PCU, cardiac monitoring, blood culture, sputum culture, urine culture, start IV vancomycin and Zosyn, albuterol as needed, repeat CBC and BMP tomorrow morning, pneumococcal and Legionella antigen, PT OT evaluation and treatment. #2 pleuritic chest pain: It is pleuritic pain, worse than when taking a deep breath and moving. EKG reviewed, revealed normal sinus rhythm, normal QTC, no acute ischemic changes. Plan: Cardiac monitoring, serial cardiac enzymes, repeat EKG in the morning. #3 ESRD on hemodialysis: He went for dialysis today, potassium is normal, BUN and creatinine are stable. Plan for nephrology consult. #4 other chronic medical problems: Stable, continue current medications as above. This note was generated with [employer] dictation software. It may contain incorrect words, spelling, and punctuation that were not noted in checking the note before signing. Code Visit Inpatient E&M: 63475 Init Hosp L3
[2018-12-09 16:33] LABS: Lactic Acid 1.3 mmol/L (0.4-2.0)
--- NOTE | 2018-12-09 17:04 | PCM.RX.CS ---
Consult Pharmacy has been consulted to manage selected antiobiotic: Vancomycin Type of Consult: New start Suspected Infection: Pneumonia Prior Doses of Antibiotics Received/Current Regimen: VANCOMYCIN 1250MG X1 IN ED 12/09/18 @1550 Labs: Sodium 134 mmol/L (136-145) L 12/09/18 11:10 Potassium 4.7 mmol/L (3.5-5.1) 12/09/18 11:10 Chloride 94 mmol/L (98-107) L 12/09/18 11:10 Carbon Dioxide 31.0 mmol/L (21.0-32.0) 12/09/18 11:10 Anion Gap 9 (5-15) 12/09/18 11:10 BUN 23 mg/dL (7-18) H 12/09/18 11:10 Creatinine 4.43 mg/dL (0.70-1.30) H 12/09/18 11:10 Est GFR (MDRD) Af Amer 18 mL/min (>60) L 12/09/18 11:10 Est GFR (MDRD) Non-Af 15 mL/min (>60) L 12/09/18 11:10 BUN/Creatinine Ratio 5.2 RATIO (10-20) L 12/09/18 11:10 Glucose 101 mg/dL (74-106) 12/09/18 11:10 Weight used for dosin.2 kg Goal Trough: 15-20 mcg/mL Pharmacy Plan for Drug Dosing: Patient gets dialysis // per nursing. Will give x1 dose of 500mg per protocol then get a pre-dialysis level 12/13/18 PLAN/RECOMMENDATIONS 1. Vancomycin 500mg x1 12/11/18 @1800 (after dialysis session) 2. Pre-Dialysis trough scheduled 12/13/18 with AM labs 3. Pharmacy Service will continue to monitor and adjust dosing as required.
[2018-12-09] MEDS: 0.9% Normal Saline 1,000 ML 100 ML IV (17:30)
[2018-12-09] MEDS: Calcium Acetate 667 MG Capsule 1334 MG PO (17:31)
[2018-12-09 20:09] LABS: Color, Urine Yellow (Yellow); Glucose, Dipstick 100 mg/dl (Normal); Ketone-Dipstick Negative (Negative); Leukocyte Esterase-Dipstick 100 /ul (Negative); Nitrite-Dipstick Negative (Negative); Occult Blood-Urine 250 /ul (Negative); Protein-Dipstick 500 mg/dl (Negative); Urine Bilirubin Dipstick Negative (Negative); Urine Clarity Sl. Cloudy (Clear); Urine Urobilinogen Normal (Normal)
[2018-12-09] MEDS: Citalopram 40 MG TABLET PO (21:32)
[2018-12-09] MEDS: guaiFENesin 1,200 MG Tablet 1200 MG PO (21:32)
[2018-12-09] MEDS: Atorvastatin Calcium 10 MG Tablet PO (21:32)
[2018-12-09] MEDS: amLODIPine 10 MG Tablet PO (21:32)
[2018-12-09] MEDS: hydrALAZINE 25 MG Tablet PO (21:32)
[2018-12-09] MEDS: Folic Acid/Vitamin B Comp W-C 1 Capsule 1 CAP PO (21:32)
[2018-12-09] MEDS: Levothyroxine 150 MCG Tablet PO (21:42)
[2018-12-10 03:00] VITALS: PULSE 73
[2018-12-10 03:01] VITALS: BP 135/61; PULSE 72; RESP 18; TEMP 36.6; O2SAT 97
[2018-12-10 05:46] LABS: Absolute Lymphocyte Count 1.41 X10^3/ul (0.83-4.51); Absolute Neutrophil Count 7.5 X10^3/uL (2.0-7.7); Basophil# 0.05 X10^3/uL; Basophil% 0.5 % (0-1); Eosinophil# 0.41 X10^3/uL; Hematocrit 29.7 % (40-54); Hemoglobin 8.7 g/dl (13.0-16.5); Lymphocyte # 1.41 X10^3/ul (4.0); Lymphocyte % 13.8 % (19-41); Mean Corp Hgb Conc 29.3 g/gl (32-36); Mean Corpuscular Hgb 26.6 pg (27.0-32.0); Mean Corpuscular Volume 90.8 fL (80-94); Monocyte# 0.83 X10^3/uL; Monocyte% 8.1 % (0-10); Neutrophil # 7.46 X10^3/uL (2.7-7.7); Neutrophil % 73.3 % (47-70); Platelet Count 335 K/mm3 (150-450); RBC Distribution Width CV 15.6 % (11.6-14.6); Red Blood Count 3.27 M/mm3 (4.6-6.2); White Blood Count 10.2 K/mm3 (4.4-11.0)
[2018-12-10 05:49] LABS: POSITIVE COUNT NO; POSITIVE DIFFERENTIAL NO; POSITIVE MORPHOLOGY NO
--- NOTE | 2018-12-10 05:55 | EKG12_ITS ---
Test Reason : AM EKG Blood Pressure : / mmHG Vent. Rate : 075 BPM Atrial Rate : 075 BPM P-R Int : 130 ms QRS Dur : 080 ms QT Int : 466 ms P-R-T Axes : 036 015 050 degrees QTc Int : 520 ms Normal sinus rhythm Prolonged QT Abnormal ECG Confirmed by ANABELL COLON, SASHA ([id number]), publication editor HARPAL REVELES ([id number]) on 12/11/2018 4:10:26 PM Referred By: Nancie Wilkes Confirmed By:SASHA HUNG MD
[2018-12-10 06:04] LABS: Anion Gap 9 (5-15); BUN 36 mg/dL (7-18); BUN/Creat Ratio 5.6 RATIO (10-20); Calcium,Total 8.4 mg/dL (8.5-10.1); Chloride 99 mmol/L (98-107); EST Glomerular Filtration Rate 10 mL/min (>60); Est Glom Filt Rate - Afr Amer 12 mL/min (>60); Estimated Creatinine Clearance 13.31 ml/min; Glucose 77 mg/dL (74-106); Potassium 4.8 mmol/L (3.5-5.1); Sodium Level 135 mmol/L (136-145)
[2018-12-10 06:26] VITALS: BP 140/64; PULSE 78
[2018-12-10 06:28] VITALS: BP 140/64; PULSE 78
[2018-12-10] MEDS: hydrALAZINE 25 MG Tablet PO (06:28)
[2018-12-10 08:03] VITALS: O2SAT 94
--- NOTE | 2018-12-10 08:40 | PCM.CONS.R ---
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 He is on iv vanco and zosyn for pneumonia. He received full treatment yesterday prior to ER visit. He has a history of diastolic CHF, GI bleed without clear etiology, chronic abdominal pain and adenopathy, HTN, hypothyroid, GERD, DMT2, DAVID. CT Chest was negative for PE but showed ground glass infiltrates. He is not hypoxic. He has generalized malaise, weakness. - Allergies Allergies: Allergies epoetin beta [From Mircera] Adverse Reaction (Verified 12/09/18 10:59) back pain - Current Medications Current Medications: Current Medications Acetaminophen (Tylenol) 650 mg PO Q4H PRN PRN PRN Reason: FEVER Albuterol Sulfate (Ventolin Aerosols) 2.5 mg INHALATION Q4H PRN PRN PRN Reason: Shortness of breath, wheezing Amlodipine Besylate (Norvasc) 10 mg PO QHS [facility] Last Admin: 12/09/18 21:32 Dose: 10 mg Atorvastatin Calcium (Lipitor) 10 mg PO QHS [facility] Last Admin: 12/09/18 21:32 Dose: 10 mg Calcium Acetate (Phoslo Gel Cap) 1,334 mg PO TIDCM [facility] Last Admin: 12/09/18 17:31 Dose: 1,334 mg Citalopram Hydrobromide (Celexa) 40 mg PO QHS [facility] Last Admin: 12/09/18 21:32 Dose: 40 mg Guaifenesin (Mucinex) 1,200 mg PO BID [facility] Last Admin: 12/09/18 21:32 Dose: 1,200 mg Hydralazine HCl (Apresoline) 25 mg PO TID [facility] Last Admin: 12/10/18 06:28 Dose: 25 mg Piperacillin Sod/Tazobactam Sod (Zosyn) 3.375 gm in 50 mls @ 12.5 mls/hr IV Q12 [facility] Last Admin: 12/09/18 21:29 Dose: 12.5 mls/hr Vancomycin IV Pharmacy to Dose (1 ea/ Sodium Chloride) 500 mls @ 250 mls/hr IV PRN PRN; Protocol PRN Reason: Rx to Dose Vancomycin HCl () 500 mg in 100 mls @ 100 mls/hr IV X1 ONE Stop: 12/11/18 18:59 Levothyroxine Sodium (Synthroid) 150 mcg PO QHS [facility] Last Admin: 12/09/18 21:42 Dose: 150 mcg Magnesium Hydroxide (Milk Of Magnesia) 30 ml PO DAILY PRN PRN Reason: Constipation Morphine Sulfate () 1 mg IV Q4H PRN PRN PRN Reason: SEVERE PAIN (6-09/03) Multivit/Ca Carb/B Cmplx/FA/Prenat (Nephrocaps, Renaphro) 1 capsule PO QHS [facility] Last Admin: 12/09/18 21:32 Dose: 1 capsule Ondansetron HCl (Zofran) 4 mg IV Q8H PRN PRN PRN Reason: NAUSEA Sodium Chloride () 5 - 15 ml IV UD PRN PRN Reason: SALINE FLUSH Vancomycin HCl () 1 lab MISCELL. TuThSa@0600 [facility] Vancomycin HCl (Vancomycin Renal/Hd Dosing) 1 unit MISCELL. TuThSa@0800 [facility] - Past Medical History Past Medical History (Chronic Problems): Chronic Problems (Last Updated 12/09/18 @ 16:06 by Nancie Wilkes MD) End stage renal disease on dialysis (Chronic) Anemia (Chronic) ESRD (end stage renal disease) (Chronic) Problem with dialysis access (Chronic) DAVID (obstructive sleep apnea) (Chronic) Lymphadenopathy (Chronic) Hyperlipidemia (Chronic) Hypothyroidism (Chronic) Hypertension (Chronic) Type II diabetes mellitus (Chronic) - Past Surgical History Surgical History: - - AV fistula with revision - Social History Marital Status: Smoking Status: Never smoker Alcohol: None Drugs: None - Family History Maternal Family History: Family History (Last Reviewed 11/28/18 @ 13:01 by Amanda Adrian) Father No problems noted. History Items: Diabetes Paternal Family History: Family History (Last Reviewed 11/28/18 @ 13:01 by Amanda Adrian) Father No problems noted. History Items: Stroke Review of Systems Constitutional: Reports: Chills, Fever, Malaise, Weakness, Fatigue. Denies: Anorexia Eyes: Denies: Vision Change HEENT: Denies: Head Aches Cardiovascular: Reports: Chest Pain - pleuritic. Denies: Edema Respiratory: Reports: Cough, Shortness of breath upon exertion, Sputum production - clear. Denies: Hemoptysis, Wheezing Gastrointestinal: Denies: Abdominal Pain, Nausea, Vomiting Genitourinary: Denies: Dysuria Musculoskeletal: Reports: - - no swelling Skin: Denies: Rash Psychiatric: Denies: Anxiety, Depression Hematologic/ Lymphatic: Reports: Anemia. Denies: Hx of blood clot Patient Problems: Active and Suspected Problems (Last Updated 12/09/18 @ 16:06 by Nancie Wilkes MD) Healthcare-associated pneumonia (Acute) - Physical Exam General: Alert, Oriented x3, Cooperative, No apparent distress HEENT: PERRLA, EOMI Oral: Dry Mucosa Neck: Supple Lungs: Clear to auscultation Cardiovascular: Regular rate Abdomen: Bowel Sounds Present, Soft, Non Tender, Non-Distended Extremities: No edema, - - AVF left forearm Skin: No rashes Psych/Mental Status: Normal Affect, Appropriate, Alert and oriented to time, place, person, mood and affect Vital Signs Temp Pulse Resp BP Pulse Ox 97.8 F 78 18 140/64 H 94 12/10/18 03:01 12/10/18 06:28 12/10/18 03:01 12/10/18 06:28 12/10/18 08:03 Oxygen Delivery Method Room Air Weight: 80.2 kg Body Mass Index (BMI) 25.3 Intake and Output for Last 24 Hours 12/08/18 12/09/18 12/10/18 23:59 23:59 23:59 Intake Total 240 / 240 1410 / 1410 Output Total 400 / 400 Balance 240 / 240 1010 / 1010 Microbiology Past 72 Hours 12/09/18 17:50 Streptococcus pneumoniae Antigen (M - Final Urine, Clean Catch 12/09/18 18:57 Legionella Antigen - Final Urine, Clean Catch Laboratory Tests Past 24 Hrs 12/09/18 12/09/18 12/09/18 11:10 11:10 15:45 WBC 12.6 H RBC 3.77 L Hgb 10.2 L Hct 33.6 L MCV 89.1 MCH 27.1 MCHC 30.4 L RDW 16.0 H RDW Differential 51.3 H Plt Count 369 MPV 9.8 Immature Gran % (Auto) 0.200 Neut % (Auto) 84.0 H Lymph % (Auto) 6.7 L Andrew % (Auto) 7.6 Eos % (Auto) 1.3 Baso % (Auto) 0.2 Absolute Neuts (auto) 10.6 H Absolute Lymphs (auto) 0.85 Total Counted Not Reportable Sodium 134 L Potassium 4.7 Chloride 94 L Carbon Dioxide 31.0 Anion Gap 9 BUN 23 H Creatinine 4.43 H Estim Creat Clear Calc 19.22 Est GFR (MDRD) Af Amer 18 L Est GFR (MDRD) Non-Af 15 L BUN/Creatinine Ratio 5.2 L Glucose 101 Lactic Acid 1.3 Calcium 8.9 Total Bilirubin 1.40 H AST 44 H ALT 16 Alkaline Phosphatase 56 Troponin I < 0.015 Total Protein 8.3 H Albumin 3.3 Globulin 5.0 H Albumin/Globulin Ratio 0.7 L Urine Color Urine Clarity Urine pH Ur Specific Otis Urine Protein Urine Glucose (UA) Urine Ketones Urine Occult Blood Urine Nitrite Urine Bilirubin Urine Urobilinogen Ur Leukocyte Esterase 12/09/18 12/09/18 12/09/18 17:10 17:50 19:56 WBC RBC Hgb Hct MCV MCH MCHC RDW RDW Differential Plt Count MPV Immature Gran % (Auto) Neut % (Auto) Lymph % (Auto) Andrew % (Auto) Eos % (Auto) Baso % (Auto) Absolute Neuts (auto) Absolute Lymphs (auto) Total Counted Sodium Potassium Chloride Carbon Dioxide Anion Gap BUN Creatinine Estim Creat Clear Calc Est GFR (MDRD) Af Amer Est GFR (MDRD) Non-Af BUN/Creatinine Ratio Glucose Lactic Acid Calcium Total Bilirubin AST ALT Alkaline Phosphatase Troponin I 0.019 < 0.015 Total Protein Albumin Globulin Albumin/Globulin Ratio Urine Color Yellow Urine Clarity Sl. Cloudy Urine pH 8.0 Ur Specific Otis 1.010 Urine Protein 500 H Urine Glucose (UA) 100 H Urine Ketones Negative Urine Occult Blood 250 H Urine Nitrite Negative Urine Bilirubin Negative Urine Urobilinogen Normal Ur Leukocyte Esterase 100 H 12/10/18 12/10/18 05:35 05:35 WBC 10.2 RBC 3.27 L Hgb 8.7 L Hct 29.7 L MCV 90.8 MCH 26.6 L MCHC 29.3 L RDW 15.6 H RDW Differential 51.0 H Plt Count 335 MPV 9.0 Immature Gran % (Auto) 0.300 Neut % (Auto) 73.3 H Lymph % (Auto) 13.8 L Andrew % (Auto) 8.1 Eos % (Auto) 4.0 Baso % (Auto) 0.5 Absolute Neuts (auto) 7.5 Absolute Lymphs (auto) 1.41 Total Counted Not Reportable Sodium 135 L Potassium 4.8 Chloride 99 Carbon Dioxide 27.0 Anion Gap 9 BUN 36 H Creatinine 6.40 H Estim Creat Clear Calc 13.31 Est GFR (MDRD) Af Amer 12 L Est GFR (MDRD) Non-Af 10 L BUN/Creatinine Ratio 5.6 L Glucose 77 Lactic Acid Calcium 8.4 L Total Bilirubin AST ALT Alkaline Phosphatase Troponin I Total Protein Albumin Globulin Albumin/Globulin Ratio Urine Color Urine Clarity Urine pH Ur Specific Otis Urine Protein Urine Glucose (UA) Urine Ketones Urine Occult Blood Urine Nitrite Urine Bilirubin Urine Urobilinogen Ur Leukocyte Esterase Clinical Impression(s) from Imaging Studies Chest X-Ray 12/09/18 11:16 IMPRESSION: No acute cardiopulmonary disease. Electronically Signed: Pancho Reyes MD at 12:22 EST , Service support , Chest CTA 12/09/18 13:13 IMPRESSION: Diffuse groundglass appearance in both upper lobes as well as in the lower lobes slightly worse on the left side. This may represent pneumonic infiltrates. Electronically Signed: Godwin Palmer MD at 14:40 EST Tel [phone], Service support , Assessment/Plan All Active Problems (Last Updated 12/09/18 @ 16:06 by Nancie Wilkes MD) Healthcare-associated pneumonia (Acute) 1. ESRD HD TTS 2. pleuritic chest pain likely from pneumonia. PE negative 3. HTN stable 4. DM2 stable 5. PNA antibx per primary service 6. Anemia hgb 8.7
--- NOTE | 2018-12-10 08:46 | CON.PCM_ITS ---
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 He is on iv vanco and zosyn for pneumonia. He received full treatment yesterday prior to ER visit. He has a history of diastolic CHF, GI bleed without clear etiology, chronic abdominal pain and adenopathy, HTN, hypothyroid, GERD, DMT2, DAVID. CT Chest was negative for PE but showed ground glass infiltrates. He is not hypoxic. He has generalized malaise, weakness. - Allergies Allergies: Allergies epoetin beta [From Mircera] Adverse Reaction (Verified 12/09/18 10:59) back pain - Current Medications Current Medications: Current Medications Acetaminophen (Tylenol) 650 mg PO Q4H PRN PRN PRN Reason: FEVER Albuterol Sulfate (Ventolin Aerosols) 2.5 mg INHALATION Q4H PRN PRN PRN Reason: Shortness of breath, wheezing Amlodipine Besylate (Norvasc) 10 mg PO QHS [facility] Last Admin: 12/09/18 21:32 Dose: 10 mg Atorvastatin Calcium (Lipitor) 10 mg PO QHS [facility] Last Admin: 12/09/18 21:32 Dose: 10 mg Calcium Acetate (Phoslo Gel Cap) 1,334 mg PO TIDCM [facility] Last Admin: 12/09/18 17:31 Dose: 1,334 mg Citalopram Hydrobromide (Celexa) 40 mg PO QHS [facility] Last Admin: 12/09/18 21:32 Dose: 40 mg Guaifenesin (Mucinex) 1,200 mg PO BID [facility] Last Admin: 12/09/18 21:32 Dose: 1,200 mg Hydralazine HCl (Apresoline) 25 mg PO TID [facility] Last Admin: 12/10/18 06:28 Dose: 25 mg Piperacillin Sod/Tazobactam Sod (Zosyn) 3.375 gm in 50 mls @ 12.5 mls/hr IV Q12 [facility] Last Admin: 12/09/18 21:29 Dose: 12.5 mls/hr Vancomycin IV Pharmacy to Dose (1 ea/ Sodium Chloride) 500 mls @ 250 mls/hr IV PRN PRN; Protocol PRN Reason: Rx to Dose Vancomycin HCl () 500 mg in 100 mls @ 100 mls/hr IV X1 ONE Stop: 12/11/18 18:59 Levothyroxine Sodium (Synthroid) 150 mcg PO QHS [facility] Last Admin: 12/09/18 21:42 Dose: 150 mcg Magnesium Hydroxide (Milk Of Magnesia) 30 ml PO DAILY PRN PRN Reason: Constipation Morphine Sulfate () 1 mg IV Q4H PRN PRN PRN Reason: SEVERE PAIN (6-09/03) Multivit/Ca Carb/B Cmplx/FA/Prenat (Nephrocaps, Renaphro) 1 capsule PO QHS [facility] Last Admin: 12/09/18 21:32 Dose: 1 capsule Ondansetron HCl (Zofran) 4 mg IV Q8H PRN PRN PRN Reason: NAUSEA Sodium Chloride () 5 - 15 ml IV UD PRN PRN Reason: SALINE FLUSH Vancomycin HCl () 1 lab MISCELL. TuThSa@0600 [facility] Vancomycin HCl (Vancomycin Renal/Hd Dosing) 1 unit MISCELL. TuThSa@0800 [facility] - Past Medical History Past Medical History (Chronic Problems): Chronic Problems (Last Updated 12/09/18 @ 16:06 by Nancie Wilkes MD) End stage renal disease on dialysis (Chronic) Anemia (Chronic) ESRD (end stage renal disease) (Chronic) Problem with dialysis access (Chronic) DAVID (obstructive sleep apnea) (Chronic) Lymphadenopathy (Chronic) Hyperlipidemia (Chronic) Hypothyroidism (Chronic) Hypertension (Chronic) Type II diabetes mellitus (Chronic) - Past Surgical History Surgical History: - - AV fistula with revision - Social History Marital Status: Smoking Status: Never smoker Alcohol: None Drugs: None - Family History Maternal Family History: Family History (Last Reviewed 11/28/18 @ 13:01 by Amanda Adrian) Father No problems noted. History Items: Diabetes Paternal Family History: Family History (Last Reviewed 11/28/18 @ 13:01 by Amanda Adrian) Father No problems noted. History Items: Stroke Review of Systems Constitutional: Reports: Chills, Fever, Malaise, Weakness, Fatigue. Denies: Anorexia Eyes: Denies: Vision Change HEENT: Denies: Head Aches Cardiovascular: Reports: Chest Pain - pleuritic. Denies: Edema Respiratory: Reports: Cough, Shortness of breath upon exertion, Sputum production - clear. Denies: Hemoptysis, Wheezing Gastrointestinal: Denies: Abdominal Pain, Nausea, Vomiting Genitourinary: Denies: Dysuria Musculoskeletal: Reports: - - no swelling Skin: Denies: Rash Psychiatric: Denies: Anxiety, Depression Hematologic/ Lymphatic: Reports: Anemia. Denies: Hx of blood clot Patient Problems: Active and Suspected Problems (Last Updated 12/09/18 @ 16:06 by Nancie Wilkes MD) Healthcare-associated pneumonia (Acute) - Physical Exam General: Alert, Oriented x3, Cooperative, No apparent distress HEENT: PERRLA, EOMI Oral: Dry Mucosa Neck: Supple Lungs: Clear to auscultation Cardiovascular: Regular rate Abdomen: Bowel Sounds Present, Soft, Non Tender, Non-Distended Extremities: No edema, - - AVF left forearm Skin: No rashes Psych/Mental Status: Normal Affect, Appropriate, Alert and oriented to time, place, person, mood and affect Vital Signs Temp Pulse Resp BP Pulse Ox 97.8 F 78 18 140/64 H 94 12/10/18 03:01 12/10/18 06:28 12/10/18 03:01 12/10/18 06:28 12/10/18 08:03 Oxygen Delivery Method Room Air Weight: 80.2 kg Body Mass Index (BMI) 25.3 Intake and Output for Last 24 Hours 12/08/18 12/09/18 12/10/18 23:59 23:59 23:59 Intake Total 240 / 240 1410 / 1410 Output Total 400 / 400 Balance 240 / 240 1010 / 1010 Microbiology Past 72 Hours 12/09/18 17:50 Streptococcus pneumoniae Antigen (M - Final Urine, Clean Catch 12/09/18 18:57 Legionella Antigen - Final Urine, Clean Catch Laboratory Tests Past 24 Hrs 12/09/18 12/09/18 12/09/18 11:10 11:10 15:45 WBC 12.6 H RBC 3.77 L Hgb 10.2 L Hct 33.6 L MCV 89.1 MCH 27.1 MCHC 30.4 L RDW 16.0 H RDW Differential 51.3 H Plt Count 369 MPV 9.8 Immature Gran % (Auto) 0.200 Neut % (Auto) 84.0 H Lymph % (Auto) 6.7 L [place] % (Auto) 7.6 Eos % (Auto) 1.3 Baso % (Auto) 0.2 Absolute Neuts (auto) 10.6 H Absolute Lymphs (auto) 0.85 Total Counted Not Reportable Sodium 134 L Potassium 4.7 Chloride 94 L Carbon Dioxide 31.0 Anion Gap 9 BUN 23 H Creatinine 4.43 H Estim Creat Clear Calc 19.22 Est GFR (MDRD) Af Amer 18 L Est GFR (MDRD) Non-Af 15 L BUN/Creatinine Ratio 5.2 L Glucose 101 Lactic Acid 1.3 Calcium 8.9 Total Bilirubin 1.40 H AST 44 H ALT 16 Alkaline Phosphatase 56 Troponin I < 0.015 Total Protein 8.3 H Albumin 3.3 Globulin 5.0 H Albumin/Globulin Ratio 0.7 L Urine Color Urine Clarity Urine pH Ur Specific [place] Urine Protein Urine Glucose (UA) Urine Ketones Urine Occult Blood Urine Nitrite Urine Bilirubin Urine Urobilinogen Ur Leukocyte Esterase 12/09/18 12/09/18 12/09/18 17:10 17:50 19:56 WBC RBC Hgb Hct MCV MCH MCHC RDW RDW Differential Plt Count MPV Immature Gran % (Auto) Neut % (Auto) Lymph % (Auto) [place] % (Auto) Eos % (Auto) Baso % (Auto) Absolute Neuts (auto) Absolute Lymphs (auto) Total Counted Sodium Potassium Chloride Carbon Dioxide Anion Gap BUN Creatinine Estim Creat Clear Calc Est GFR (MDRD) Af Amer Est GFR (MDRD) Non-Af BUN/Creatinine Ratio Glucose Lactic Acid Calcium Total Bilirubin AST ALT Alkaline Phosphatase Troponin I 0.019 < 0.015 Total Protein Albumin Globulin Albumin/Globulin Ratio Urine Color Yellow Urine Clarity Sl. Cloudy Urine pH 8.0 Ur Specific [place] 1.010 Urine Protein 500 H Urine Glucose (UA) 100 H Urine Ketones Negative Urine Occult Blood 250 H Urine Nitrite Negative Urine Bilirubin Negative Urine Urobilinogen Normal Ur Leukocyte Esterase 100 H 12/10/18 12/10/18 05:35 05:35 WBC 10.2 RBC 3.27 L Hgb 8.7 L Hct 29.7 L MCV 90.8 MCH 26.6 L MCHC 29.3 L RDW 15.6 H RDW Differential 51.0 H Plt Count 335 MPV 9.0 Immature Gran % (Auto) 0.300 Neut % (Auto) 73.3 H Lymph % (Auto) 13.8 L [place] % (Auto) 8.1 Eos % (Auto) 4.0 Baso % (Auto) 0.5 Absolute Neuts (auto) 7.5 Absolute Lymphs (auto) 1.41 Total Counted Not Reportable Sodium 135 L Potassium 4.8 Chloride 99 Carbon Dioxide 27.0 Anion Gap 9 BUN 36 H Creatinine 6.40 H Estim Creat Clear Calc 13.31 Est GFR (MDRD) Af Amer 12 L Est GFR (MDRD) Non-Af 10 L BUN/Creatinine Ratio 5.6 L Glucose 77 Lactic Acid Calcium 8.4 L Total Bilirubin AST ALT Alkaline Phosphatase Troponin I Total Protein Albumin Globulin Albumin/Globulin Ratio Urine Color Urine Clarity Urine pH Ur Specific [place] Urine Protein Urine Glucose (UA) Urine Ketones Urine Occult Blood Urine Nitrite Urine Bilirubin Urine Urobilinogen Ur Leukocyte Esterase Clinical Impression(s) from Imaging Studies Chest X-Ray 12/09/18 11:16 IMPRESSION: No acute cardiopulmonary disease. Electronically Signed: Pancho Reyes MD at 12:22 EST , Service support , Chest CTA 12/09/18 13:13 IMPRESSION: Diffuse groundglass appearance in both upper lobes as well as in the lower lobes slightly worse on the left side. This may represent pneumonic infiltrates. Electronically Signed: Godwin Palmer MD at 14:40 EST Tel [phone], Service support , Assessment/Plan All Active Problems (Last Updated 12/09/18 @ 16:06 by Nancie Wilkes MD) Healthcare-associated pneumonia (Acute) 1. ESRD HD TTS 2. pleuritic chest pain likely from pneumonia. PE negative 3. HTN stable 4. DM2 stable 5. PNA antibx per primary service 6. Anemia hgb 8.7
[2018-12-10 09:00] VITALS: BP 133/79; PULSE 73; PULSE 79; RESP 16; TEMP 36.8; O2SAT 99
[2018-12-10] MEDS: Calcium Acetate 667 MG Capsule 1334 MG PO ×2 (09:16→11:45)
[2018-12-10] MEDS: guaiFENesin 1,200 MG Tablet 1200 MG PO (09:16)
[2018-12-10] MEDS: Piperacil/Tazobactam 3.375 GM/50 ML ML IV (09:23)
[2018-12-10] MEDS: 0.9% NaCl Peripheral Flush Adult/Peds IV (09:24)
--- NOTE | 2018-12-10 11:25 | CASEMGMT ---
SILVANA PHAM assessment: Face to Face with patient for initial transition planning/care coordination assessment. SILVANA PHAM introduced self and role at [facility], pt voices understanding and consents to assessment at this time. Pt is sitting up on side of bed in no distress at this time. Pt is A/Ox4 at this time and answers all questions appropriately at this time. Care providers, pharmacy, and demographics verified at this time. PCP: Marques Caba Specialists: robert Blakely; Graciela, surgeon-pt was scheduled to have 2nd surgery for fistula this saturday and was curious what he should do about. Per Yoni NEGRETE, he spoke to Dr. Owens and Dr. Owens cancelled the surgery and states his office will re-schedule. Pt updated at this time and advised pt to call Graciela's office if he does not hear back from them soon, voices understanding. Preferred Pharmacy: [facility] Insurance: SAMANTHA Villalobos A/B Prescription Benefit: [place] Living Will/HPOA: Pt states does not have LW/HPOA and declines info at this time. LNOK: Sally Mccrary, Living Arrangements: Pt states lives with in 1 story home and states no concerns at home at this time. Transportation: Pt states drives self and states no transportation concerns at this time. DME/HHC: Pt states has a bipap that was through [employer] [facility] [employer] [facility] [employer] but will get it changed over prior to needing new supplies. Pt states no need for any further DME at this time. Pt states no hx of HHC or SNF in the past. Pt states no concerns with going home at time of discharge. 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 Pt states does not smoke or drink ETOH. Pt states no further questions/concerns/needs at this time. CM to follow for any further discharge planning/needs. Advised pt to ask for CM if any further questions/concerns/needs arise, voices understanding. Plan: [place] SILVANA PHAM
--- NOTE | 2018-12-10 12:21 | DCINST_ITS ---
- Discharge Diagnoses Current Active Problems: Current Active and Chronic Problems (Last Updated 12/09/18 @ 16:06 by Nancie Wilkes MD) Healthcare-associated pneumonia (Acute) End stage renal disease on dialysis (Chronic) DAVID (obstructive sleep apnea) (Chronic) You will use the following diet at home:: Calorie/Carbohydrate Controlled (specify 1200, 1400, etc) - 1800 linda / day, Cardiac - <2 g sodium daily, Renal (restricted protein/sodium) Your food should be the consistency of: Regular Your liquids should be the consistency of: Regular/Thin Discharge Activity: Return to Normal Activity Allergies/Adverse Reactions: Allergies epoetin beta [From Mircera] Adverse Reaction (Verified 12/09/18 10:59) back pain Medications to take at Discharge Levothyroxine [Synthroid] 150 mcg PO QHS 10/28/15 Simvastatin [Zocor] 20 mg PO QHS 10/28/15 Citalopram Hydrobromide [Citalopram HBr] 40 mg PO QHS 01/03/18 Ergocalciferol [Vitamin D] 50,000 unit PO QMONTH 01/21/18 Amlodipine [Norvasc] 10 mg PO QHS 05/08/18 hydrALAZINE [Apresoline] 25 mg PO TID 05/08/18 Calcium Acetate 2 cap PO TIDCM 08/01/18 Yoko-Anna 0.8 mg PO QHS 08/01/18 levoFLOXacin tablet [Levaquin tablet] 500 mg PO Q48H #4 tablet 12/10/18 The following prescriptions were given: levoFLOXacin tablet [Levaquin tablet] 500 mg PO Q48H #4 tablet Primary Care Physician: Marques Caba MD [Primary Care Provider] - Please follow up with your Primary Care Physician in: 1-2 weeks Test Results: Test results from this visit will be discussed in further detail at your follow- up appointment, if applicable. Please Follow Up With: Pedro Owens MD - AV fistula When: Call for appointment Please Follow Up With: Vannessa Blakely DO When: Resume Dialysis Proposed Discharge Date: 12/10/18
[2018-12-10] MEDS: levoFLOXacin IV 750 MG/150 ML BAG 100 MG IV (12:40)
--- NOTE | 2018-12-10 14:24 | PCM.DC.SUM ---
Discharge Date and Diagnosis Date of Admission: 12/09/18 Date of Discharge: 12/10/18 - Primary Discharge Diagnosis Acute community-acquired pneumonia, presumed streptococcal End-stage renal disease AV fistula complication History of diastolic CHF Obstructive sleep apnea History of GI bleeding Type 2 diabetes mellitus, diet-controlled Hyperlipidemia Hypothyroidism - Secondary Discharge Diagnosis Chronic Problems (Last Updated 12/09/18 @ 16:06 by Nancie Wilkes MD) End stage renal disease on dialysis (Chronic) Anemia (Chronic) ESRD (end stage renal disease) (Chronic) Problem with dialysis access (Chronic) DAVID (obstructive sleep apnea) (Chronic) Lymphadenopathy (Chronic) Hyperlipidemia (Chronic) Hypothyroidism (Chronic) Hypertension (Chronic) Type II diabetes mellitus (Chronic) Hospital Course and Treatment Imaging Results: RAD/Chest 1 View (Portable) IMPRESSION: No acute cardiopulmonary disease. CT/CTA Chest W/WO Contrast IMPRESSION: Diffuse groundglass appearance in both upper lobes as well as in the lower lobes slightly worse on the left side. This may represent pneumonic infiltrates. Consultations: Nephrology -[place] Operations: None Procedures: None Summary of Care Provided: Hospital course: The patient is a 58 year old M with past medical history as above who presented to the hospital with productive cough, left-sided chest pain, chills, body aches, progressively worsening for several days. He was sent from dialysis after completing a full round. He was found to have a negative troponin, negative EKG, symptoms consistent with pleurisy. Chest x-ray was unremarkable however a follow-up CTA of the chest demonstrated pneumonia, and he had an elevated white blood cell count. He was comfortable at rest without oxygen and was not hypoxic. He was admitted to the PCU and placed on Vanco and Zosyn, mucinex, pep therapy, IS. His symptoms had improved significantly the following day and he remained off oxygen and comfortable, was able to ambulate without oxygen. He was transitioned to Levaquin and will need to complete 4 more doses for a total of 10 days of therapy. He was discharged in stable condition to home. He will need to follow-up with dialysis and Dr. Blakely as previously directed, he will need follow-up with his PCP in 1-2 weeks. He was supposed to have his AV fistula repaired by Dr. Owens on Saturday, however due to this admission and acute illness this was canceled. He will need to contact Dr. Owens and reschedule the surgery as soon as possible. This patient was seen by Lance Hernandez PA-C under the supervision of Doctor Lazaro. [] - Physical Exam General: Alert, Oriented x3, Cooperative HEENT: Atraumatic, PERRLA, EOMI, Normocephalic Neck: Supple, No JVD, Negative Carotid Bruits Lungs: Clear to auscultation, Normal air movement Cardiovascular: Regular rate, No murmurs Abdomen: Bowel Sounds Present, Soft, Non Tender Extremities: No edema, Capillary Refill Less than 3 Seconds Skin: No rashes, No breakdown Musculoskeletal: No Tenderness to Palpation of Joints or Extremities Neurological: Cranial nerves II-XII grossly intact Psych/Mental Status: Normal Affect, Appropriate Vital Signs Temp Pulse Resp BP Pulse Ox 98.3 F 73 16 133/79 H 99 12/10/18 09:00 12/10/18 09:00 12/10/18 09:00 12/10/18 09:00 12/10/18 09:00 Oxygen Delivery Method Room Air Weight: 176 lb 12.972 oz Body Mass Index (BMI) 25.3 Intake and Output for Last 24 Hours 12/08/18 12/09/18 12/10/18 23:59 23:59 23:59 Intake Total 240 / 240 1850 / 1850 Output Total 400 / 400 Balance 240 / 240 1450 / 1450 Microbiology Past 72 Hours 12/09/18 17:50 Streptococcus pneumoniae Antigen (M - Final Urine, Clean Catch 12/09/18 18:57 Legionella Antigen - Final Urine, Clean Catch Laboratory Tests Past 24 Hrs 12/09/18 12/09/18 12/09/18 15:45 17:10 17:50 WBC RBC Hgb Hct MCV MCH MCHC RDW RDW Differential Plt Count MPV Immature Gran % (Auto) Neut % (Auto) Lymph % (Auto) [place] % (Auto) Eos % (Auto) Baso % (Auto) Absolute Neuts (auto) Absolute Lymphs (auto) Total Counted Sodium Potassium Chloride Carbon Dioxide Anion Gap BUN Creatinine Estim Creat Clear Calc Est GFR (MDRD) Af Amer Est GFR (MDRD) Non-Af BUN/Creatinine Ratio Glucose Lactic Acid 1.3 Calcium Troponin I 0.019 Urine Color Yellow Urine Clarity Sl. Cloudy Urine pH 8.0 Ur Specific [place] 1.010 Urine Protein 500 H Urine Glucose (UA) 100 H Urine Ketones Negative Urine Occult Blood 250 H Urine Nitrite Negative Urine Bilirubin Negative Urine Urobilinogen Normal Ur Leukocyte Esterase 100 H MRSA (PCR) 12/09/18 12/10/18 12/10/18 19:56 05:35 05:35 WBC 10.2 RBC 3.27 L Hgb 8.7 L Hct 29.7 L MCV 90.8 MCH 26.6 L MCHC 29.3 L RDW 15.6 H RDW Differential 51.0 H Plt Count 335 MPV 9.0 Immature Gran % (Auto) 0.300 Neut % (Auto) 73.3 H Lymph % (Auto) 13.8 L [place] % (Auto) 8.1 Eos % (Auto) 4.0 Baso % (Auto) 0.5 Absolute Neuts (auto) 7.5 Absolute Lymphs (auto) 1.41 Total Counted Not Reportable Sodium 135 L Potassium 4.8 Chloride 99 Carbon Dioxide 27.0 Anion Gap 9 BUN 36 H Creatinine 6.40 H Estim Creat Clear Calc 13.31 Est GFR (MDRD) Af Amer 12 L Est GFR (MDRD) Non-Af 10 L BUN/Creatinine Ratio 5.6 L Glucose 77 Lactic Acid Calcium 8.4 L Troponin I < 0.015 Urine Color Urine Clarity Urine pH Ur Specific [place] Urine Protein Urine Glucose (UA) Urine Ketones Urine Occult Blood Urine Nitrite Urine Bilirubin Urine Urobilinogen Ur Leukocyte Esterase MRSA (PCR) 12/10/18 12:55 WBC RBC Hgb Hct MCV MCH MCHC RDW RDW Differential Plt Count MPV Immature Gran % (Auto) Neut % (Auto) Lymph % (Auto) [place] % (Auto) Eos % (Auto) Baso % (Auto) Absolute Neuts (auto) Absolute Lymphs (auto) Total Counted Sodium Potassium Chloride Carbon Dioxide Anion Gap BUN Creatinine Estim Creat Clear Calc Est GFR (MDRD) Af Amer Est GFR (MDRD) Non-Af BUN/Creatinine Ratio Glucose Lactic Acid Calcium Troponin I Urine Color Urine Clarity Urine pH Ur Specific [place] Urine Protein Urine Glucose (UA) Urine Ketones Urine Occult Blood Urine Nitrite Urine Bilirubin Urine Urobilinogen Ur Leukocyte Esterase MRSA (PCR) Pending Discharge Diet: Low fat/ Low Cholesterol, 1800 Calorie Control Diet, 2000 mg Sodium Diet, Renal Diet Discharge Activity: Return to Normal Activity Home Medications: Medications to take at Discharge Levothyroxine [Synthroid] 150 mcg PO QHS 10/28/15 Simvastatin [Zocor] 20 mg PO QHS 10/28/15 Citalopram Hydrobromide [Citalopram HBr] 40 mg PO QHS 01/03/18 Ergocalciferol [Vitamin D] 50,000 unit PO QMONTH 01/21/18 Amlodipine [Norvasc] 10 mg PO QHS 05/08/18 hydrALAZINE [Apresoline] 25 mg PO TID 05/08/18 Calcium Acetate 2 cap PO TIDCM 08/01/18 Yoko-Anna 0.8 mg PO QHS 08/01/18 levoFLOXacin tablet [Levaquin tablet] 500 mg PO Q48H #4 tablet 12/10/18 Following Prescrptions Were Given to Patient: levoFLOXacin tablet [Levaquin tablet] 500 mg PO Q48H #4 tablet Primary Care Physician: Marques Caba MD [Primary Care Provider] - Please follow up with your Primary Care Physician in: 1-2 weeks Please Follow Up With: Pedro Owens MD When: Call for appointment Please Follow Up With: Vannessa Blakely DO When: Resume Dialysis Please Follow Up With: Marques Caba MD Disposition: Home Minutes spent on discharge:: 35 Patient Condition:: Stable Medical Necessity - Tobacco Use Smoking Status: Never smoker Tobacco Use: Chew Meaningful Use Info Meaningful Use Diagnoses (Choose all that apply): None applicable
[2018-12-10 15:56] LABS: M R Staph aureus DNA By PCR Negative (Negative); Probe Check PASS; Specimen Processing Control PASS
--- NOTE | 2018-12-11 15:53 | CASEMGMT ---
RN CM Discharge Follow-up Phone Call: [place]: 13 Strata: 4 Call Date: 12/11/18 Discharge Date: 12/10/18 Time of Call: 1550 Duration: 1 min Admitting Diagnosis: Bilateral HCAP RN CM attempted to complete follow-up phone call after recent hospitalization. No answer, voice message left with return contact information.
== END 2018-12-10 14:15 | disposition home or self-care (01) | DRG 193 ==
LOC: ED 11:51 → PCU 15:49
PROVIDERS: Physician Assistant; Admitting Provider Hospitalist; Emergency Provider Emergency Medicine; Family Provider Family Medicine; PCP Family Medicine; Referring Provider Hospitalist; Visit Provider Internal Medicine
DX: J15.4 Pneumonia due to other streptococci (principal); N18.6 End stage renal disease; I13.2 Hypertensive heart and chronic kidney disease with heart failure and with stage 5 chronic kidney disease, or end stage renal disease; I50.30 Unspecified diastolic (congestive) heart failure; T82.9XXA Unspecified complication of cardiac and vascular prosthetic device, implant and graft, initial encounter; Z79.899 Other long term (current) drug therapy; G47.33 Obstructive sleep apnea (adult) (pediatric); E78.5 Hyperlipidemia, unspecified; E03.9 Hypothyroidism, unspecified; E11.22 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 diabetic chronic kidney disease; Z99.2 Dependence on renal dialysis; F41.9 Anxiety disorder, unspecified; D64.9 Anemia, unspecified; Z72.0 Tobacco use
CPT/HCPCS: 36415; 71045; 71275; 80048; 80053; 81002; 83605; 84484; 85025; 87040; 87449; 87641; 93005; 94640; 94667; 99284; 99406; J7030; J7040; Q9967; A4216

== ENCOUNTER 2018-12-22 08:01 | Inpatient (IN) | payer BC, MEDICARE, SELFPAY ==
[2018-12-09 16:31] VITALS: BMI 25.3
[2018-12-22] VITALS (10 sets, daily range): BP systolic 139–175; BP diastolic 61–80; PULSE 82–112; RESP 16–22; TEMP 36.3–36.7; O2SAT 94–100; BMI 25.2; BMI 26.1
--- NOTE | 2018-12-22 08:19 | EKG12_ITS ---
Test Reason : SOB Blood Pressure : / mmHG Vent. Rate : 084 BPM Atrial Rate : 084 BPM P-R Int : 146 ms QRS Dur : 080 ms QT Int : 414 ms P-R-T Axes : 068 011 062 degrees QTc Int : 489 ms Normal sinus rhythm Prolonged QT Abnormal ECG Confirmed by ANABELL COLON, SASHA ([id number]), design editor HARPAL REVELES ([id number] on 12/25/2018 8:12:04 AM Referred By: MAHAMED Confirmed By:SASHA HUNG MD
--- NOTE | 2018-12-22 08:20 | RAD_ITS ---
STUDY: X-RAY CHEST REASON FOR EXAM: Male, 58 years old. Pain. TECHNIQUE: PA and lateral views of the chest. COMPARISON: December 09, 2018 FINDINGS: Central catheter right extending to the lower superior vena cava. There is patchy left lower lung airspace consolidation. There is no demonstrated pleural abnormality. Normal size heart. Normal mediastinum and kieran. Normal visualized pulmonary arteries. Normal visualized aortic arch and descending thoracic aorta. Normal visualized thoracic spine. Normal visualized ribs, clavicles, and shoulders. There is no demonstrated abnormality of the visualized soft tissue structures of the upper abdomen. RAD/Chest PA and Lateral IMPRESSION: Left lower lung infiltrate. Electronically Signed: Arpit Ansari MD at 8:57 EST , Service support ,
[2018-12-22 08:37] LABS: Absolute Lymphocyte Count 0.98 X10^3/ul (0.83-4.51); Absolute Neutrophil Count 18.4 X10^3/uL (2.0-7.7); Basophil# 0.07 X10^3/uL; Basophil% 0.3 % (0-1); Eosinophil# 0.34 X10^3/uL; Eosinophils% 1.6 % (0-5); Hematocrit 33.1 % (40-54); Hemoglobin 9.7 g/dl (13.0-16.5); Lymphocyte # 0.98 X10^3/ul (4.0); Lymphocyte % 4.6 % (19-41); Mean Corp Hgb Conc 29.3 g/gl (32-36); Mean Corpuscular Hgb 27.2 pg (27.0-32.0); Mean Platelet Vol. 8.3 fl (6.2-12.0); Monocyte# 1.31 X10^3/uL; Monocyte% 6.2 % (0-10); POSITIVE COUNT NO; POSITIVE DIFFERENTIAL NO; POSITIVE MORPHOLOGY NO; Platelet Count 390 K/mm3 (150-450); RBC Distribution Width CV 16.9 % (11.6-14.6); RBC Distribution Width SD 54.2 fl (35.1-43.9); Red Blood Count 3.56 M/mm3 (4.6-6.2); White Blood Count 21.2 K/mm3 (4.4-11.0)
--- NOTE | 2018-12-22 08:52 | ED.DCSUM_ITS ---
- ER Visit Summary Date of Service: 12/22/18 Chief Complaint: Chest pain History of Present Illness: The patient is a 58 M presenting for evaluation secondary to chest pain. Patient was recently admitted to the hospital secondary to pneumonia. He was discharged about a week ago on a course of Levaquin. Patient reports that since his discharge he had been feeling somewhat better, but in the last 2-3 days he started to develop a significant amount of left sided chest pain. He reports that this is a continuous sharp type pain that is worse with palpation movement and laying flat and somewhat improved with getting up and walking around. Patient states he feels a little bit short of breath due to a inability to take a deep breath. Patient also notes that his left arm has been somewhat cool and tingling. He has a history of end-stage renal disease, has a ripening fistula in his left arm that is not currently being used. His dialysis access is in his right chest, and he gets hemodialysis Saturday. He has not had any complications with dialysis recently. He denies any fever cough nausea vomiting diarrhea hemoptysis or change in color of his stools. Review of systems otherwise negative. Physical Examination: Vital signs notable hypertension 166/72 pulse ox 100% on room air. Well-nourished male no acute distress. Head normocephalic. Moist mucous membranes. Neck supple. Heart regular rate and rhythm 3 out of 6 systolic murmur noted. Radial pulses are 2+ and symmetric. Palpable thrill noted in the patient's right bending left AV fistula. No respiratory distress noted, respirations are shallow without rhonchi rales or wheezes. No evidence of vesicular rash on the chest. Right-sided chest port is clean dry and intact. Abdomen was soft and nontender. Left hand was cool when compared to the right hand, but has normal capillary refill but symmetric with contralateral side. Remainder of physical otherwise unremarkable. Test Results: EKG demonstrates sinus rhythm 84 with prolonged QTC of 489 which is somewhat improved from a week ago. Normal ST segments and T waves. No evidence of acute ischemia or arrhythmia. CBC demonstrates significant leukocytosis in the 20s, chemistry demonstrates the patient's chronic renal failure Emergency Department Course and Treatment: Patient presented secondary to chest pain. He was found to have new leukocytosis and an obvious infiltrate on x-ray. This likely has to be infectious, so the patient will be treated with a course of vancomycin and Zosyn and readmitted to the hospital. Disposition: Admission Impression: 1. Nosocomial pneumonia This note was generated with [employer] dictation software. It may contain incorrect words, spelling, and punctuation that were not noted in review of the chart prior to signing ED Disposition - Plan for ED Patient: Chief Complaint: Shortness of Breath Referrals: Marques Caba MD [Primary Care Provider] -
[2018-12-22] MEDS: Lidocaine 5% Patch 1 PATCH TOPICAL (08:54)
[2018-12-22 08:56] LABS: Anion Gap 13 (5-15); BUN 50 mg/dL (7-18); Calcium,Total 9.4 mg/dL (8.5-10.1); Chloride 98 mmol/L (98-107); Creatinine, Serum 7.12 mg/dL (0.70-1.30); EST Glomerular Filtration Rate 9 mL/min (>60); Est Glom Filt Rate - Afr Amer 10 mL/min (>60); Estimated Creatinine Clearance 11.96 ml/min; Glucose 144 mg/dL (74-106); Potassium 4.8 mmol/L (3.5-5.1); Sodium Level 139 mmol/L (136-145)
--- NOTE | 2018-12-22 09:11 | PCM.HP.STD ---
Problem List (1) Healthcare-associated pneumonia Status: Acute (2) End stage renal disease on dialysis Status: Chronic (3) Anemia Status: Chronic Qualifiers: Anemia type: unspecified type Qualified Code(s): D64.9 - Anemia, unspecified (4) DAVID (obstructive sleep apnea) Status: Chronic (5) Lymphadenopathy Status: Chronic (6) Hyperlipidemia Status: Chronic Qualifiers: Hyperlipidemia type: unspecified Qualified Code(s): E78.5 - Hyperlipidemia, unspecified (7) Hypothyroidism Status: Chronic Qualifiers: Hypothyroidism type: unspecified Qualified Code(s): E03.9 - Hypothyroidism, unspecified (8) Hypertension Status: Chronic Qualifiers: Hypertension type: essential hypertension Qualified Code(s): I10 - Essential (primary) hypertension (9) Type II diabetes mellitus Status: Chronic Qualifiers: Diabetes mellitus shelter insulin use: without shelter use Diabetes mellitus complication status: with unspecified complications Qualified Code(s): E11.8 - 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 unspecified complications History of Present Illness Date of Admission: 12/22/18 Chief Complaint: Cough, Dyspnea, recent PNA Dx outpatient The patient is a 58 y/o M w/ PMHx: AOCD, DAVID, Diastolic CHF, History prior GI bleed, Chronic abdominal pain w/ adenopathy, Diabetes mellitus type II, HTN, HLD, Hypothyroidism, Chronic BL LE lymphedema, ESRD on HD TThSat w/ Dr. Blakely w/ R chest port w/ LUE fistula, Anxiety and Depression who presents to the [facility] ED on 12/22/18 with history of recent BL LL and UL PNA diagnosis discharged on 12/10/18 prior placed on oral renally dosed levaquin w/ improvement but worsened with L sided chest pain, worse with inspiration, worse with coughing, unable to lay down secondary to discomfort over the last 2-3 days without fever or chills. Work-up in the ED included T 97.4, heart rate 85, BP initially 175/78--> 39/69, respiratory rate 16, 98% on room air, CBC with WBC 21.2, hemoglobin 9.7, platelet 390 with left shift, BMP w/ BUN/Cr 50/7.12, glucose 144, trop 0.018, CXR w/ LLL infiltrate. In the ED patient administered lidoderm patch. Past Medical History Past Medical History (Chronic Problems): Chronic Problems (Last Updated 12/09/18 @ 16:06 by Nancie Wilkes MD) End stage renal disease on dialysis (Chronic) Anemia (Chronic) ESRD (end stage renal disease) (Chronic) Problem with dialysis access (Chronic) DAVID (obstructive sleep apnea) (Chronic) Lymphadenopathy (Chronic) Hyperlipidemia (Chronic) Hypothyroidism (Chronic) Hypertension (Chronic) Type II diabetes mellitus (Chronic) Medical History: Medical History (Last Updated 12/09/18 @ 16:06 by Nancie Wilkes MD) Lymphadenopathy (Chronic) R59.1 Hyperlipidemia (Chronic) E78.5 Hypothyroidism (Chronic) E03.9 Hypertension (Chronic) I10 Type II diabetes mellitus (Chronic) E11.9 Allergies epoetin beta [From Mircera] Adverse Reaction (Verified 12/09/18 10:59) back pain Home Medications: Ambulatory Orders Medication Instructions Recorded Levothyroxine [Synthroid] 150 mcg PO QHS 10/28/15 Simvastatin [Zocor] 20 mg PO QHS 10/28/15 Citalopram Hydrobromide 40 mg PO QHS 01/03/18 [Citalopram HBr] Ergocalciferol [Vitamin D] 50,000 unit PO QMONTH 01/21/18 Amlodipine [Norvasc] 10 mg PO QHS 05/08/18 hydrALAZINE [Apresoline] 25 mg PO TID 05/08/18 Calcium Acetate 2 cap PO TIDCM 08/01/18 Yoko-Anna 0.8 mg PO QHS 08/01/18 levoFLOXacin tablet [Levaquin 500 mg PO Q48H #4 tablet 12/10/18 tablet] Surgical History: Surgical History (Last Reviewed 11/28/18 @ 13:01 by Amanda Adrian) H/O hernia repair Z98.890, Z87.19 Presence of surgically created arteriovenous shunt for hemodialysis Z99.2 LLE fistula-05/15/2018 S/P nasal surgery Z98.890 Surgical History: - - AV fistula with revision, hernia repair, chest port, nasal surgery. Psychiatric History: Anxiety, Depression Lives: With Family Smoking Status: Never smoker Tobacco Use: Chew - Notes 1 can q 2 days. Alcohol: None Drugs: None - *Family History Maternal Family History: Family History (Last Reviewed 11/28/18 @ 13:01 by Amanda Adrian) Father No problems noted. History Items: Diabetes Paternal Family History: Family History (Last Reviewed 11/28/18 @ 13:01 by Amanda Adrian) Father No problems noted. History Items: Stroke Review of Systems Constitutional: Reports: Anorexia, Malaise, Weakness, Fatigue. Denies: Chills, Fever, Weight Change HEENT: Denies: Head Aches, Sinus Congestion, Sinus Drainage Cardiovascular: Reports: Chest Pain. Denies: Palpitations Respiratory: Reports: Cough, Shortness of Breath, Shortness of breath at rest, Shortness of breath upon exertion, Sputum production Gastrointestinal: Reports: Nausea. Denies: Abdominal Pain, Vomiting Genitourinary: Denies: Dysuria Musculoskeletal: Reports: Back Pain. Denies: Joint Pain, Joint Tenderness Skin: Denies: Rash, Wounds Neurological: Denies: Numbness, Tingling, Focal weakness Psychiatric: Reports: Anxiety, Depression. Denies: Homicidal Ideations, Suicidal Ideations Hematologic/ Lymphatic: Reports: Anemia. Denies: Easy Bruising, Easy Bleeding VTE Information - Inpt Only VTE Present on Admission: No VTE Mechan Device Prophylaxis: SCD's VTE Pharm Prophylaxis ordered?: Yes Subjective: Seated upright in bed, fatigued appearance, notes ongoing L sided chest pain, worse w/ activity, palpation, inspiration. Objective: Physical Examination: General: awake, alert, oriented x 3 and cooperative, seated upright in bed, notes ongoing left-sided chest discomfort. Skin: normal color, turgor, no icterus, cyanosis, maturing left upper extremity AVF. HEENT: AT/NC, EOMI, PERRLA, moderately dry MM, no carotid bruits or JVD noted. Lungs: Diffusely diminished breath sounds, greater bilateral bases, left greater than right, poor effort, no rales, ronchi or wheezing. Heart: Regular rate and rhythm; no gallop, rub audible. Abdomen: soft, NTTP, ND, normal BS, no HSM. Extremities: no cyanosis, clubbing, maturing left upper extremity AVF, BL LE edema. Neurological: patient awake, alert, oriented x 3; cognitive function intact; pupils equally reactive to light and accomodation; cranial nerves II-XII grossly normal, moving all 4 extremities, no focal deficits, strength severely globally decreased secondary to acute presentation. Psychiatric: affect appears fatigued, no acute evidence of depressive or anxiety feelings. - Physical Exam Vital Signs Temp Pulse Resp BP Pulse Ox 98.0 F 82 17 159/69 H 98 12/22/18 09:01 12/22/18 09:01 12/22/18 09:01 12/22/18 09:01 12/22/18 09:01 Oxygen Delivery Method Room Air Weight: 176 lb 2.389 oz Body Mass Index (BMI) 25.2 Laboratory Tests Past 24 Hrs 12/22/18 12/22/18 08:30 08:30 WBC 21.2 H RBC 3.56 L Hgb 9.7 L Hct 33.1 L MCV 93.0 MCH 27.2 MCHC 29.3 L RDW 16.9 H RDW Differential 54.2 H Plt Count 390 MPV 8.3 Immature Gran % (Auto) 0.300 Neut % (Auto) 87.0 H Lymph % (Auto) 4.6 L Dickey % (Auto) 6.2 Eos % (Auto) 1.6 Baso % (Auto) 0.3 Absolute Neuts (auto) 18.4 H Absolute Lymphs (auto) 0.98 Total Counted Not Reportable Sodium 139 Potassium 4.8 Chloride 98 Carbon Dioxide 28.0 Anion Gap 13 BUN 50 H Creatinine 7.12 H Estim Creat Clear Calc 11.96 Est GFR (MDRD) Af Amer 10 L Est GFR (MDRD) Non-Af 9 L BUN/Creatinine Ratio 7.0 L Glucose 144 H Calcium 9.4 Troponin I 0.018 Assessment/Plan All Active Problems (Last Updated 12/09/18 @ 16:06 by Nancie Wilkes MD) Healthcare-associated pneumonia (Acute) The patient is a 58 y/o M w/ PMHx: AOCD, DAVID, Diastolic CHF, History prior GI bleed, Chronic abdominal pain w/ adenopathy, Diabetes mellitus type II, HTN, HLD, Hypothyroidism, Chronic BL LE lymphedema, ESRD on HD TThSat w/ Dr. Blakely w/ R chest port w/ LUE fistula, Anxiety and Depression who presents to the [facility] ED on 12/22/18 with history of recent BL LL and UL PNA diagnosis discharged on 12/10/18 prior placed on oral renally dosed levaquin w/ improvement but worsened with L sided chest pain, worse with inspiration, worse with coughing, unable to lay down secondary to discomfort over the last 2-3 days. (1) HCAP Pneumonia LLL: History of recent BL LL and UL PNA diagnosis discharged on 12/10/18 prior placed on oral renally dosed levaquin w/ improvement but worsened with L sided chest pain, elevated WBC 21.2 with L shift, CXR in the ED w/ notable LLL infiltrate. Will admit to [facility] given clinical stability, maintain on oxygen with wean as tolerated to room air, continue ATC duonebs, PRN albuterol, maintained on IV Zosyn and Vancomycin, HOB, IS parameters w/ pending sputum cultures, respiratory viral panel. Bld cx x 2 obtained in the ED. Given readmission, notable CT upon initial appearance will request Pulmonary input. (2) ESRD: On HD, R chest port w/ maturing LUE fistula, HD T, TH, Sat, Dr. Blakely consulted. (3) Diabetes mellitus type II: Not on regimen, noted history, HgbA1c requested, renal/ADA diet, accu checks w/ ISS. (4) AOCD: Admission Hgb 9.7, baseline 7-9 range, stable, repeat CBC in AM. (5) Hypertension: Continue home regimen including Norvasc, Hydralazine, PRN hydralazine. (6) Hyperlipidemia: Continue home statin regimen. (7) Hypothyroidism: Continue home synthroid regimen. (8) Chronic Diastolic CHF: ESRD history, on HD, not on ASA possible secondary to GI bleed history, not on GEE/ARB secondary to ESRD history, on hydralazine, statin therapy. (9) Anxiety and Depression: Continue home citalopram regimen. (10) Chew Tobacco Use: Encourage cessation, RT consultation, NR if desired. (11) History of GI bleed: PPI. (12) DAVID: CPAP q HS. (13) DVT Prophylaxis: SCDs, heparin. Code Visit Inpatient E&M: 88651 Init Hosp L3
[2018-12-22] MEDS: Morphine 4 MG/ML Syringe IV (09:44)
[2018-12-22] MEDS: Ondansetron 4 MG/2 ML Vial IV (09:44)
[2018-12-22 11:26] LABS: Magnesium 2.4 mg/dL (1.6-2.6)
--- NOTE | 2018-12-22 11:29 | PCM.CONS.R ---
Consultation - Renal 12/22/18 PCP/ Referring MD: Requesting physician: [] Primary care physician: Marques Caba MD Reason for Consultation:: ESRD renal mgmt - History of Present Illness History of Present Illness: The patient is a 58 year old M with ESRD on hemodialysis Saturday, , Saturday recently discharged from the hospital for pneumonia with negative CT angiogram for PE. He was discharged to home on oral Levaquin. He is readmitted with increased left chest wall pain with deep inspiration. He had chills at home. He complains of a nonproductive cough. His appetite has been poor. He is unable to sleep due to the pain on his left side of his chest along with left shoulder pain and arm pain. States he was not able to tolerate his BiPAP last night due to the pain. Chest x-ray reveals left lower lobe infiltrate. He has not started back on IV antibiotic therapy. His last dose of oral Levaquin was yesterday. His white blood cell count was elevated at 21.2K. - Allergies Allergies: Allergies epoetin beta [From Mircera] Adverse Reaction (Verified 12/09/18 10:59) back pain - Current Medications Current Medications: Current Medications Acetaminophen (Tylenol) 650 mg PO Q6H PRN PRN PRN Reason: Non-cardiac pain (mod-severe) Hydrocodone Bitart/Acetaminophen ([place] 5mg-325mg) 1 - 2 tablet PO Q6H PRN PRN PRN Reason: Moderate-severe pain Al Hydroxide/Mg Hydroxide (Mylanta Ii) 30 ml PO Q6H PRN PRN PRN Reason: Gastric burning Albuterol Sulfate (Ventolin Aerosols) 2.5 mg INHALATION Q2H PRN PRN PRN Reason: SHORTNESS OF BREATH Albuterol/Ipratropium (Duoneb) 3 ml INHALATION Q6HWA.RT ROCKY Amlodipine Besylate (Norvasc) 10 mg PO QHS ROCKY Atorvastatin Calcium (Lipitor) 10 mg PO QHS ROCKY Calcium Acetate (Phoslo Gel Cap) 1,334 mg PO TIDCM ROCKY Citalopram Hydrobromide (Celexa) 40 mg PO QHS ROCKY Guaifenesin (Mucinex) 1,200 mg PO BID ROCKY Heparin Sodium (Porcine) (Heparin Na) 5,000 unit SC Q12 ROCKY Hydralazine HCl (Apresoline Iv) 10 mg IV Q4H PRN PRN PRN Reason: SBP > 160 Hydralazine HCl (Apresoline) 25 mg PO TID ROCKY Vancomycin HCl 1,250 mg/ (Dextrose) 275 mls @ 250 mls/hr IV X1 ONE Stop: 12/22/18 10:26 Last Admin: 12/22/18 10:31 Dose: 250 mls/hr Piperacillin Sod/Tazobactam (Sod 2,250 mg/ Sodium Chloride) 61.25 mls @ 183 mls/hr IV X1 ONE Stop: 12/22/18 10:00 Last Admin: 12/22/18 10:01 Dose: 183 mls/hr Piperacillin Sod/Tazobactam Sod (Zosyn) 3.375 gm in 50 mls @ 12.5 mls/hr IV Q12 ROCKY Insulin Human Lispro (Humalog Kwikpen (Bkc)) 0 unit SC ACHS ROCKY; Protocol Levothyroxine Sodium (Synthroid) 150 mcg PO QHS ROCKY Lidocaine (Lidoderm Patch) 1 patch TOPICAL X1 ONE; Protocol Stop: 12/22/18 08:21 Last Admin: 12/22/18 08:54 Dose: 1 patch Magnesium Hydroxide (Milk Of Magnesia) 30 ml PO DAILY PRN PRN PRN Reason: Constipation Morphine Sulfate () 4 mg IV X1 ONE Stop: 12/22/18 09:23 Last Admin: 12/22/18 09:44 Dose: 4 mg Morphine Sulfate () 1 - 2 mg IV Q4H PRN PRN PRN Reason: PAIN Ondansetron HCl (Zofran) 4 mg IV X1 ONE Stop: 12/22/18 09:23 Last Admin: 12/22/18 09:44 Dose: 4 mg Ondansetron HCl (Zofran) 4 mg IV Q8H PRN PRN PRN Reason: NAUSEA/VOMITING Pantoprazole Sodium (Protonix) 20 mg PO BID ROCKY - Past Medical History Past Medical History (Chronic Problems): Chronic Problems (Last Updated 12/09/18 @ 16:06 by Nancie Wilkes MD) End stage renal disease on dialysis (Chronic) Anemia (Chronic) ESRD (end stage renal disease) (Chronic) Problem with dialysis access (Chronic) DAVID (obstructive sleep apnea) (Chronic) Lymphadenopathy (Chronic) Hyperlipidemia (Chronic) Hypothyroidism (Chronic) Hypertension (Chronic) Type II diabetes mellitus (Chronic) - Past Surgical History Surgical History: - - AV fistula with revision, hernia repair, chest port, nasal surgery. - Social History Marital Status: Smoking Status: Never smoker Alcohol: None Drugs: None - Family History Maternal Family History: Family History (Last Reviewed 11/28/18 @ 13:01 by Amanda Adrian) Father No problems noted. History Items: Diabetes Paternal Family History: Family History (Last Reviewed 11/28/18 @ 13:01 by Amanda Adrian) Father No problems noted. History Items: Stroke Review of Systems Constitutional: Reports: Anorexia, Chills, Fever, Weakness Eyes: Denies: Vision Change HEENT: Denies: Head Aches Cardiovascular: Reports: Chest Pain - Chest wall pain, Edema - Trace ankle edema. Denies: Palpitations, Syncope Respiratory: Reports: Cough, Shortness of Breath Gastrointestinal: Denies: Abdominal Pain, Diarrhea, Nausea, Vomiting Genitourinary: Denies: Dysuria Musculoskeletal: Reports: Arm Pain - Left arm, Shoulder Pain - Left shoulder, - - Left-sided chest wall pain with inspiration Skin: Denies: Rash Neurological: Denies: Balance problems Psychiatric: Reports: Depression Hematologic/ Lymphatic: Reports: Anemia - Physical Exam General: Alert, Oriented x3, Cooperative, No apparent distress Oral: Dry Mucosa Neck: Supple Lungs: Clear to auscultation Cardiovascular: Regular rate Abdomen: Bowel Sounds Present, Soft, Non Tender, Non-Distended Extremities: Edema - Trace ankle Musculoskeletal: No Muscle Wasting Neurological: Cranial nerves II-XII grossly intact Psych/Mental Status: Normal Affect, Appropriate, Alert and oriented to time, place, person, mood and affect Vital Signs Temp Pulse Resp BP Pulse Ox 97.8 F 84 16 159/69 H 99 12/22/18 11:22 12/22/18 11:22 12/22/18 11:22 12/22/18 11:22 12/22/18 11:22 Oxygen Delivery Method Room Air Weight: 79.9 kg Body Mass Index (BMI) 25.2 Laboratory Tests Past 24 Hrs 12/22/18 12/22/18 12/22/18 08:30 08:30 08:30 WBC 21.2 H RBC 3.56 L Hgb 9.7 L Hct 33.1 L MCV 93.0 MCH 27.2 MCHC 29.3 L RDW 16.9 H RDW Differential 54.2 H Plt Count 390 MPV 8.3 Immature Gran % (Auto) 0.300 Neut % (Auto) 87.0 H Lymph % (Auto) 4.6 L [place] % (Auto) 6.2 Eos % (Auto) 1.6 Baso % (Auto) 0.3 Absolute Neuts (auto) 18.4 H Absolute Lymphs (auto) 0.98 Total Counted Not Reportable Sodium 139 Potassium 4.8 Chloride 98 Carbon Dioxide 28.0 Anion Gap 13 BUN 50 H Creatinine 7.12 H Estim Creat Clear Calc 11.96 Est GFR (MDRD) Af Amer 10 L Est GFR (MDRD) Non-Af 9 L BUN/Creatinine Ratio 7.0 L Glucose 144 H Hemoglobin A1c Calcium 9.4 Magnesium 2.4 Troponin I 0.018 12/22/18 08:30 WBC RBC Hgb Hct MCV MCH MCHC RDW RDW Differential Plt Count MPV Immature Gran % (Auto) Neut % (Auto) Lymph % (Auto) [place] % (Auto) Eos % (Auto) Baso % (Auto) Absolute Neuts (auto) Absolute Lymphs (auto) Total Counted Sodium Potassium Chloride Carbon Dioxide Anion Gap BUN Creatinine Estim Creat Clear Calc Est GFR (MDRD) Af Amer Est GFR (MDRD) Non-Af BUN/Creatinine Ratio Glucose Hemoglobin A1c Pending Calcium Magnesium Troponin I Clinical Impression(s) from Imaging Studies Chest X-Ray 12/22/18 08:20 IMPRESSION: Left lower lung infiltrate. Electronically Signed: Arpit Ansari MD at 8:57 EST , Service support , Assessment/Plan All Active Problems (Last Updated 12/09/18 @ 16:06 by Nancie Wilkes MD) Healthcare-associated pneumonia (Acute) 1. ESRD will arrange hemodialysis on Saturday. 2. Left lower lobe pneumonia on IV antibiotic therapy renal adjust. Check Vanco levels prior to re-dosing. 3. Hypertension with stable blood pressures 4. DM type II primary care management 5. Anemia hemoglobin stable 6. Left-sided chest wall pain likely due to pleuritic pain, musculoskeletal in origin.
[2018-12-22 12:10] LABS: Bedside Glucose 112 mg/dL (70-110)
[2018-12-22] MEDS: Ipratropium/Albuterol Sulfate 3 ML AMPUL.NEB INHALATION ×2 (12:48→18:46)
[2018-12-22 12:50] LABS: Hemoglobin A1c < 3.5 % (4.2-6.3)
[2018-12-22 13:28] LABS: M R Staph aureus DNA By PCR Negative (Negative); Probe Check PASS; Specimen Processing Control PASS
[2018-12-22] MEDS: Morphine 2 MG/ML Syringe IV ×2 (13:31→17:54)
--- NOTE | 2018-12-22 13:44 | CON.PCM_ITS ---
Reason for Consult Date of Consultation: 12/22/18 Reason for Consultation: Recurrent pneumonia History of Present Illness: The patient is a 58-year-old male, with a history as outlined below, who presented to the emergency department on December 22 with complaints of pleuritic type chest pain. The patient was just recently admitted to the hospital and discharged on December 10, after being treated for presumptive community-acquired pneumonia. A CTA chest obtained during his prior hospitalization revealed diffuse groundglass changes in the upper and lower lobes bilaterally. No pulmonary embolism was identified. The patient does have known end-stage renal disease and on dialysis Saturday, , Saturday. Unfortunately, very little infectious workup was performed during the patient's prior hospitalization. The patient denies the presence of fevers or chills. He does report some body aches along with a mild, nonproductive cough. His last hemodialysis session was this past Saturday. On presentation to the emergency department, the patient was noted to be afebrile and hypertensive with a blood pressure of 175/78. He was maintaining appropriate oxygen saturations on room air. Laboratory evaluation revealed elevated white blood cell count to 21,000. This is increased when compared to his discharge white blood cell count. Chemistry profile was only notable for a BUN of 50 with a creatinine of 7.12. Troponin was negative. Although a plain film chest x-ray was read by the radiologist as demonstrating a left lower lobe infiltrate, I do not see any evidence of a large consolidation. The patient was subsequently started on vancomycin and Zosyn. He was admitted to the medical surgical floor for ongoing management. Past Medical History Past Medical History (Chronic Problems): Chronic Problems (Last Updated 12/09/18 @ 16:06 by Nancie Wilkes MD) End stage renal disease on dialysis (Chronic) Anemia (Chronic) ESRD (end stage renal disease) (Chronic) Problem with dialysis access (Chronic) DAVID (obstructive sleep apnea) (Chronic) Lymphadenopathy (Chronic) Hyperlipidemia (Chronic) Hypothyroidism (Chronic) Hypertension (Chronic) Type II diabetes mellitus (Chronic) Medical History: Medical History (Last Updated 12/09/18 @ 16:06 by Nancie Wilkes MD) Lymphadenopathy (Chronic) R59.1 Hyperlipidemia (Chronic) E78.5 Hypothyroidism (Chronic) E03.9 Hypertension (Chronic) I10 Type II diabetes mellitus (Chronic) E11.9 Allergies epoetin beta [From Mircera] Adverse Reaction (Verified 12/09/18 10:59) back pain Home Medications: Ambulatory Orders Medication Instructions Recorded Levothyroxine [Synthroid] 150 mcg PO QHS 10/28/15 Simvastatin [Zocor] 20 mg PO QHS 10/28/15 Citalopram Hydrobromide 40 mg PO QHS 01/03/18 [Citalopram HBr] Ergocalciferol [Vitamin D] 50,000 unit PO QMONTH 01/21/18 Amlodipine [Norvasc] 10 mg PO QHS 05/08/18 hydrALAZINE [Apresoline] 25 mg PO TID 05/08/18 Calcium Acetate 2 cap PO TIDCM 08/01/18 Yoko-Anna 0.8 mg PO QHS 08/01/18 levoFLOXacin tablet [Levaquin 500 mg PO Q48H #4 tablet 12/10/18 tablet] Surgical History: Surgical History (Last Reviewed 11/28/18 @ 13:01 by Amanda Adrian) H/O hernia repair Z98.890, Z87.19 Presence of surgically created arteriovenous shunt for hemodialysis Z99.2 LLE fistula-05/15/2018 S/P nasal surgery Z98.890 Surgical History: - - AV fistula with revision, hernia repair, chest port, nasal surgery. Lives: With Family Smoking Status: Never smoker Tobacco Use: Chew Alcohol: None Drugs: None - *Family History Maternal Family History: Family History (Last Reviewed 11/28/18 @ 13:01 by Amanda Adrian) Father No problems noted. History Items: Diabetes Paternal Family History: Family History (Last Reviewed 11/28/18 @ 13:01 by Amanda Adrian) Father No problems noted. History Items: Stroke Review of Systems Constitutional: Reports: Fatigue. Denies: Chills, Fever Eyes: Denies: Blurred vision, Double vision HEENT: Denies: Head Aches, Sinus Congestion, Sinus Drainage Cardiovascular: Reports: Chest Pain - Pleuritic, Edema Respiratory: Reports: Cough, Pleuritic Pain. Denies: Shortness of Breath, Sputum production Gastrointestinal: Denies: Abdominal Pain, Nausea, Vomiting Genitourinary: Denies: Dysuria Musculoskeletal: Denies: Joint Pain, Joint Tenderness Skin: Denies: Rash, Wounds Neurological: Denies: Numbness, Tingling, Focal weakness Psychiatric: Denies: Anxiety, Depression, Homicidal Ideations, Suicidal Ideations Hematologic/ Lymphatic: Reports: Anemia Objective: The patient's most recent lab work, culture data and imaging studies have all been personally reviewed. MRSA screen was negative. Respiratory viral panel is pending. - Physical Exam General: Alert, Oriented x3, Cooperative, No apparent distress HEENT: Atraumatic, PERRLA, Normocephalic Oral: No Gingival or Mucosal Lesions/ Ulcerations Neck: Supple, No Nodes, Trachea Midline Lungs: - - Suboptimal examination severely limited by poor patient dependent inspiratory effort. No discernible wheezes, rales or rhonchi present. Air movement is diminished throughout. Cardiovascular: Regular rate, Regular Rhythm, Normal S1, Normal S2, No murmurs Abdomen: Bowel Sounds Present, Soft, Non Tender, Non-Distended Extremities: No clubbing, No cyanosis, Edema Skin: No breakdown Musculoskeletal: No Tenderness to Palpation of Joints or Extremities Lymphatic: No Cervical, Supraclavicular, or Inguinal Adenopathy Neurological: Cranial nerves II-XII grossly intact, Neuro grossly intact Psych/Mental Status: Normal Affect, Appropriate Vital Signs Temp Pulse Resp BP Pulse Ox 36.6 C 84 16 159/69 H 99 12/22/18 11:22 12/22/18 11:22 12/22/18 11:22 12/22/18 11:22 12/22/18 11:22 Oxygen Delivery Method Room Air Weight: 182 lb 1.629 oz Body Mass Index (BMI) 26.1 Laboratory Tests Past 24 Hrs 12/22/18 12/22/18 12/22/18 08:30 08:30 08:30 WBC 21.2 H RBC 3.56 L Hgb 9.7 L Hct 33.1 L MCV 93.0 MCH 27.2 MCHC 29.3 L RDW 16.9 H RDW Differential 54.2 H Plt Count 390 MPV 8.3 Immature Gran % (Auto) 0.300 Neut % (Auto) 87.0 H Lymph % (Auto) 4.6 L [place] % (Auto) 6.2 Eos % (Auto) 1.6 Baso % (Auto) 0.3 Absolute Neuts (auto) 18.4 H Absolute Lymphs (auto) 0.98 Total Counted Not Reportable Sodium 139 Potassium 4.8 Chloride 98 Carbon Dioxide 28.0 Anion Gap 13 BUN 50 H Creatinine 7.12 H Estim Creat Clear Calc 11.96 Est GFR (MDRD) Af Amer 10 L Est GFR (MDRD) Non-Af 9 L BUN/Creatinine Ratio 7.0 L Glucose 144 H Hemoglobin A1c Calcium 9.4 Magnesium 2.4 Troponin I 0.018 MRSA (PCR) 12/22/18 12/22/18 08:30 12:15 WBC RBC Hgb Hct MCV MCH MCHC RDW RDW Differential Plt Count MPV Immature Gran % (Auto) Neut % (Auto) Lymph % (Auto) [place] % (Auto) Eos % (Auto) Baso % (Auto) Absolute Neuts (auto) Absolute Lymphs (auto) Total Counted Sodium Potassium Chloride Carbon Dioxide Anion Gap BUN Creatinine Estim Creat Clear Calc Est GFR (MDRD) Af Amer Est GFR (MDRD) Non-Af BUN/Creatinine Ratio Glucose Hemoglobin A1c < 3.5 L Calcium Magnesium Troponin I MRSA (PCR) Negative POC Glucose 12/22/18 11:58 POC Glucose 112 H Clinical Impression(s) from Imaging Studies Chest X-Ray 12/22/18 08:20 IMPRESSION: Left lower lung infiltrate. Electronically Signed: Arpit Ansari MD at 8:57 EST , Service support , Assessment/Plan All Active Problems (Last Updated 12/09/18 @ 16:06 by Nancie Wilkes MD) Healthcare-associated pneumonia (Acute) RECOMMENDATIONS: 1. Given that the patient is a hemodialysis patient, recommend discontinuation of scheduled vancomycin. 2. Agree with checking respiratory viral panel. 3. Continue Zosyn, pending infectious workup. 4. Pain control per hospitalist. 5. Encourage aggressive incentive spirometer use. IMPRESSIONS: 1. Pleuritic type chest pain with concern for worsening left lower lobe pneumonia Although the patient's initial plain film chest x-ray was initially read as showing a notable left lower lobe infiltrate, I am less than impressed by his current radiographic findings. The groundglass changes noted on prior CTA could have been pulmonary edema or atypical infectious process, potentially viral. Given the patient's elevated white blood cell count along with generalized muscle aches and pleuritic type chest pain, a viral etiology is certainly a consideration. Agree with continuing broad-spectrum antibiotics, pending infectious workup. If the patient's cough does become productive, will need to send for culture. Will defer pain management to hospitalist. 2. End-stage renal disease on hemodialysis Continue hemodialysis per nephrology recommendations. 3. History of DAVID/tobacco dependence/heart failure with preserved ejection fraction/hypothyroidism/hypertension/hyperlipidemia Complicates care, management, recovery and prognosis. Okay to continue home medications as indicated. This note was generated with [employer] dictation software. It may contain incorrect words, spelling, and punctuation that were not noted in checking the note before signing. Code Visit Inpatient E&M: 31069 Init Hosp L3
[2018-12-22] MEDS: HYDROcodone Bitartrate/Apap 5/325 Tablet PO (15:33)
[2018-12-22] MEDS: Calcium Acetate 667 MG Capsule 1334 MG PO (16:46)
[2018-12-22 17:01] LABS: Bedside Glucose 118 mg/dL (70-110)
[2018-12-22] MEDS: 0.9% NaCl Peripheral Flush Adult/Peds IV ×3 (17:54→21:54)
[2018-12-22] MEDS: HYDROmorphone 0.5 MG/0.5 ML SYRINGE IV (20:21)
[2018-12-22] MEDS: oxyCODONE 5 MG Tablet PO (21:45)
[2018-12-22] MEDS: Piperacil/Tazobactam 3.375 GM/50 ML ML IV (21:45)
[2018-12-22] MEDS: Levothyroxine 150 MCG Tablet PO (21:46)
[2018-12-22] MEDS: amLODIPine 10 MG Tablet PO (21:46)
[2018-12-22] MEDS: Pantoprazole Sodium 20 MG Tablet PO (21:46)
[2018-12-22] MEDS: hydrALAZINE 25 MG Tablet PO (21:47)
[2018-12-22] MEDS: Atorvastatin Calcium 10 MG Tablet PO (21:47)
[2018-12-22] MEDS: Heparin Injection (Vial) 5,000 UNIT/ML VIAL 5000 UNIT SC (21:47)
[2018-12-22] MEDS: Citalopram 40 MG TABLET PO (21:47)
[2018-12-22 22:01] LABS: Bedside Glucose 114 mg/dL (70-110)
[2018-12-23] VITALS (9 sets, daily range): BP systolic 124–141; BP diastolic 56–65; PULSE 75–101; RESP 16–20; TEMP 36.5–36.7; O2SAT 95–99
[2018-12-23] MEDS: HYDROmorphone 0.5 MG/0.5 ML SYRINGE IV ×2 (00:30→06:38)
[2018-12-23] MEDS: oxyCODONE 5 MG Tablet PO ×2 (03:32→22:07)
[2018-12-23 06:23] LABS: Absolute Lymphocyte Count 1.26 X10^3/ul (0.83-4.51); Absolute Neutrophil Count 15.6 X10^3/uL (2.0-7.7); Basophil# 0.04 X10^3/uL; Basophil% 0.2 % (0-1); Eosinophil# 0.27 X10^3/uL; Eosinophils% 1.4 % (0-5); Hemoglobin 9.2 g/dl (13.0-16.5); Lymphocyte # 1.26 X10^3/ul (4.0); Lymphocyte % 6.7 % (19-41); Mean Corp Hgb Conc 29.7 g/gl (32-36); Mean Corpuscular Hgb 27.6 pg (27.0-32.0); Mean Corpuscular Volume 93.1 fL (80-94); Monocyte# 1.61 X10^3/uL; Monocyte% 8.5 % (0-10); Neutrophil # 15.64 X10^3/uL (2.7-7.7); Neutrophil % 82.9 % (47-70); Platelet Count 353 K/mm3 (150-450); RBC Distribution Width CV 17.3 % (11.6-14.6); RBC Distribution Width SD 55.6 fl (35.1-43.9); Red Blood Count 3.33 M/mm3 (4.6-6.2); White Blood Count 18.9 K/mm3 (4.4-11.0)
[2018-12-23 06:24] LABS: Differential Indicated SCAN CRITERIA MET; POSITIVE COUNT NO; POSITIVE DIFFERENTIAL YES; POSITIVE MORPHOLOGY NO
[2018-12-23] MEDS: hydrALAZINE 25 MG Tablet PO ×3 (06:35→22:08)
[2018-12-23] MEDS: 0.9% NaCl Peripheral Flush Adult/Peds IV ×2 (06:39→22:12)
[2018-12-23 06:55] LABS: Bedside Glucose 109 mg/dL (70-110)
[2018-12-23] MEDS: Ipratropium/Albuterol Sulfate 3 ML AMPUL.NEB INHALATION ×2 (07:19→19:23)
[2018-12-23 07:31] LABS: Anion Gap 11 (5-15); BUN 58 mg/dL (7-18); BUN/Creat Ratio 6.9 RATIO (10-20); Calcium,Total 8.9 mg/dL (8.5-10.1); Chloride 97 mmol/L (98-107); Creatinine, Serum 8.42 mg/dL (0.70-1.30); EST Glomerular Filtration Rate 7 mL/min (>60); Est Glom Filt Rate - Afr Amer 9 mL/min (>60); Estimated Creatinine Clearance 10.11 ml/min; Glucose 105 mg/dL (74-106); Potassium 5.5 mmol/L (3.5-5.1); Sodium Level 135 mmol/L (136-145)
--- NOTE | 2018-12-23 09:57 | PCM.PN.REN ---
Subjective: Seen on dialysis proceeding without incident. Left pleuritic and shoulder pain improved. Able to sleep well last night. Able to take deep inspirations. Cough improved. - Physical Exam General: Alert, Oriented x3, Cooperative, No apparent distress Lungs: Clear to auscultation Cardiovascular: Regular rate Extremities: Edema - Trace ankle Musculoskeletal: No Muscle Wasting Psych/Mental Status: Alert and oriented to time, place, person, mood and affect Vital Signs Temp Pulse Resp BP Pulse Ox 97.7 F L 75 18 141/64 H 99 12/23/18 07:58 12/23/18 07:58 12/23/18 07:58 12/23/18 07:58 12/23/18 07:58 Oxygen Delivery Method Room Air Weight: 82.6 kg Body Mass Index (BMI) 26.1 Intake and Output for Last 24 Hours 12/21/18 12/22/18 12/23/18 23:59 23:59 23:59 Intake Total 350 / 350 Balance 350 / 350 Microbiology Past 72 Hours 12/22/18 20:05 Streptococcus pneumoniae Antigen (M - Final Urine, Clean Catch 12/22/18 20:05 Legionella Antigen - Final Urine, Clean Catch 12/22/18 10:55 Respiratory Panel (PCR) - Final Mucosa - Nose Laboratory Tests Past 24 Hrs 12/22/18 12/22/18 12/22/18 08:30 08:30 12:15 WBC RBC Hgb Hct MCV MCH MCHC RDW RDW Differential Plt Count MPV Immature Gran % (Auto) Neut % (Auto) Lymph % (Auto) [place] % (Auto) Eos % (Auto) Baso % (Auto) Absolute Neuts (auto) Absolute Lymphs (auto) Total Counted Sodium Potassium Chloride Carbon Dioxide Anion Gap BUN Creatinine Estim Creat Clear Calc Est GFR (MDRD) Af Amer Est GFR (MDRD) Non-Af BUN/Creatinine Ratio Glucose Hemoglobin A1c < 3.5 L Calcium Magnesium 2.4 MRSA (PCR) Negative 12/23/18 12/23/18 12/23/18 05:49 05:49 06:45 WBC 18.9 H RBC 3.33 L Hgb 9.2 L Hct 31.0 L MCV 93.1 MCH 27.6 MCHC 29.7 L RDW 17.3 H RDW Differential 55.6 H Plt Count 353 MPV 9.0 Immature Gran % (Auto) 0.300 Neut % (Auto) 82.9 H Lymph % (Auto) 6.7 L [place] % (Auto) 8.5 Eos % (Auto) 1.4 Baso % (Auto) 0.2 Absolute Neuts (auto) 15.6 H Absolute Lymphs (auto) 1.26 Total Counted Not Reportable Sodium Cancelled 135 L Potassium Cancelled 5.5 H Chloride Cancelled 97 L Carbon Dioxide Cancelled 27.0 Anion Gap Cancelled 11 BUN Cancelled 58 H Creatinine Cancelled 8.42 H* Estim Creat Clear Calc Cancelled 10.11 Est GFR (MDRD) Af Amer Cancelled 9 L Est GFR (MDRD) Non-Af Cancelled 7 L BUN/Creatinine Ratio Cancelled 6.9 L Glucose Cancelled 105 Hemoglobin A1c Calcium Cancelled 8.9 Magnesium MRSA (PCR) POC Glucose 12/23/18 12/22/18 12/22/18 06:34 21:40 16:43 POC Glucose 109 114 H 118 H 12/22/18 11:58 POC Glucose 112 H Medical Necessity - Tobacco Use Smoking Status: Never smoker Tobacco Use: Chew Assessment/Plan All Active Problems (Last Updated 12/09/18 @ 16:06 by Nancie Wilkes MD) Healthcare-associated pneumonia (Acute) 1. ESRD hemodialysis today. Seen on dialysis proceeding without incident. 2. Left lower lobe pneumonia on IV antibiotic therapy renal adjust. 3. Hypertension with stable blood pressures 4. DM type II primary care management 5. Anemia hemoglobin stable 6. Left-sided chest wall pain likely due to pleuritic pain, musculoskeletal in origin.
--- NOTE | 2018-12-23 11:06 | PCM.PROGNOTE ---
Subjective: The patient was seen and examined at the bedside this morning. Events from the last 24 hours have been reviewed. The patient is currently afebrile, hemodynamically stable and maintaining appropriate oxygen saturations on room air. The patient is currently undergoing dialysis. He does report that his pain has lessened today. Objective: The patient's most recent lab work, culture data and imaging studies have all been personally reviewed. Strep and urine Legionella antigens were both negative. Respiratory viral panel was negative. - Physical Exam General: Alert, Cooperative, No apparent distress HEENT: Atraumatic, PERRLA, Normocephalic Oral: No Gingival or Mucosal Lesions/ Ulcerations Neck: Supple, No Nodes, Trachea Midline Lungs: No rhonchi, No wheeze, No rales, Diminished, - - Inspiratory effort is still diminished. Cardiovascular: Regular rate, Regular Rhythm, Normal S1, Normal S2, No murmurs Abdomen: Bowel Sounds Present, Soft, Non Tender Extremities: No clubbing, No cyanosis, No edema Skin: No breakdown Musculoskeletal: No Tenderness to Palpation of Joints or Extremities Lymphatic: No Cervical, Supraclavicular, or Inguinal Adenopathy Neurological: Cranial nerves II-XII grossly intact, Neuro grossly intact Psych/Mental Status: Normal Affect, Appropriate Vital Signs Temp Pulse Resp BP Pulse Ox 36.5 C L 75 18 141/64 H 99 12/23/18 07:58 12/23/18 07:58 12/23/18 07:58 12/23/18 07:58 12/23/18 07:58 Oxygen Delivery Method Room Air Weight: 182 lb 1.629 oz Body Mass Index (BMI) 26.1 Intake and Output for Last 24 Hours 12/21/18 12/22/18 12/23/18 23:59 23:59 23:59 Intake Total 350 / 350 Balance 350 / 350 Microbiology Past 72 Hours 12/22/18 20:05 Streptococcus pneumoniae Antigen (M - Final Urine, Clean Catch 12/22/18 20:05 Legionella Antigen - Final Urine, Clean Catch 12/22/18 10:55 Respiratory Panel (PCR) - Final Mucosa - Nose Laboratory Tests Past 24 Hrs 12/22/18 12/22/18 12/22/18 08:30 08:30 12:15 WBC RBC Hgb Hct MCV MCH MCHC RDW RDW Differential Plt Count MPV Immature Gran % (Auto) Neut % (Auto) Lymph % (Auto) [place] % (Auto) Eos % (Auto) Baso % (Auto) Absolute Neuts (auto) Absolute Lymphs (auto) Total Counted Sodium Potassium Chloride Carbon Dioxide Anion Gap BUN Creatinine Estim Creat Clear Calc Est GFR (MDRD) Af Amer Est GFR (MDRD) Non-Af BUN/Creatinine Ratio Glucose Hemoglobin A1c < 3.5 L Calcium Magnesium 2.4 MRSA (PCR) Negative 12/23/18 12/23/18 12/23/18 05:49 05:49 06:45 WBC 18.9 H RBC 3.33 L Hgb 9.2 L Hct 31.0 L MCV 93.1 MCH 27.6 MCHC 29.7 L RDW 17.3 H RDW Differential 55.6 H Plt Count 353 MPV 9.0 Immature Gran % (Auto) 0.300 Neut % (Auto) 82.9 H Lymph % (Auto) 6.7 L [place] % (Auto) 8.5 Eos % (Auto) 1.4 Baso % (Auto) 0.2 Absolute Neuts (auto) 15.6 H Absolute Lymphs (auto) 1.26 Total Counted Not Reportable Sodium Cancelled 135 L Potassium Cancelled 5.5 H Chloride Cancelled 97 L Carbon Dioxide Cancelled 27.0 Anion Gap Cancelled 11 BUN Cancelled 58 H Creatinine Cancelled 8.42 H* Estim Creat Clear Calc Cancelled 10.11 Est GFR (MDRD) Af Amer Cancelled 9 L Est GFR (MDRD) Non-Af Cancelled 7 L BUN/Creatinine Ratio Cancelled 6.9 L Glucose Cancelled 105 Hemoglobin A1c Calcium Cancelled 8.9 Magnesium MRSA (PCR) POC Glucose 12/23/18 12/22/18 12/22/18 06:34 21:40 16:43 POC Glucose 109 114 H 118 H 12/22/18 11:58 POC Glucose 112 H Clinical Impression(s) from Imaging Studies Chest X-Ray 12/22/18 08:20 IMPRESSION: Left lower lung infiltrate. Electronically Signed: Arpit Ansari MD at 8:57 EST , Service support , Medical Necessity - Tobacco Use Smoking Status: Never smoker Tobacco Use: Chew Assessment/Plan All Active Problems (Last Updated 12/09/18 @ 16:06 by Nancie Wilkes MD) Healthcare-associated pneumonia (Acute) RECOMMENDATIONS: 1. Antibiotics can be discontinued from my perspective. 2. Consider NSAID for pain control 3. Encourage incentive spirometer use IMPRESSIONS: 1. Pleuritic type chest pain Although the patient's initial plain film chest x-ray was initially read as showing a notable left lower lobe infiltrate, I am less than impressed by his current radiographic findings. The groundglass changes noted on prior CTA could have been pulmonary edema or atypical infectious process, potentially viral. At this time, given the patient's lack of respiratory symptoms and negative infectious workup, I would recommend discontinuation of antibiotics. I do believe that his current chest pain complaints are likely musculoskeletal in nature. He may benefit from the initiation of NSAID therapy. Continue to encourage incentive spirometer use. 2. End-stage renal disease on hemodialysis Continue hemodialysis per nephrology recommendations. 3. History of DAVID/tobacco dependence/heart failure with preserved ejection fraction/hypothyroidism/hypertension/hyperlipidemia Complicates care, management, recovery and prognosis. Okay to continue home medications as indicated. This note was generated with [employer] dictation software. It may contain incorrect words, spelling, and punctuation that were not noted in checking the note before signing. Code Visit Inpatient E&M: 45948 Subs Hosp L2
--- NOTE | 2018-12-23 12:04 | PCM.PN.HOSP ---
Subjective: Patient overnight had noted increased dyspnea and ongoing left-sided pleuritic chest discomfort as well as mild hand and pedal edema. Patient had been evaluated also by pulmonary and nephrology and felt like patient clinically was well-appearing with no evidence of respiratory distress stress nor volume overload. Patient pain regimen changed and following this he felt markedly improved and notes that he had been able to sleep. Patient having dialysis set up this morning. Patient denies fevers, chills, nausea, emesis, abdominal pain. Objective: Physical Examination: General: awake, alert, oriented x 3 and cooperative, seated upright in bed, notes less discomfort left chest. Skin: normal color, turgor, no icterus, cyanosis, maturing left upper extremity AVF. HEENT: AT/NC, EOMI, PERRLA, improved MMM. Lungs: Unchanged, diminished diffusely, > bases, poor inspiratory effort secondary to pleuritic pain despite strong encouragement, reproducible left sided chest discomfort w/ palpation, no rales, ronchi or wheezing. Heart: Regular rate and rhythm; no gallop, rub audible. Abdomen: soft, NTTP, ND, normal BS. Extremities: no cyanosis, clubbing, maturing left upper extremity AVF, BL LE mild ankle to distal brown edema. Neurological: patient awake, alert, oriented x 3; cognitive function intact; pupils equally reactive to light and accomodation; cranial nerves II-XII grossly normal, moving all 4 extremities, no focal deficits, strength improved, moderately globally decreased secondary to acute presentation. Psychiatric: affect appears improved, normal, no acute evidence of depressive or anxiety feelings. Vitals/I&O's: Vital Signs Temp Pulse Resp BP Pulse Ox 97.7 F L 75 18 141/64 H 99 12/23/18 07:58 12/23/18 07:58 12/23/18 07:58 12/23/18 07:58 12/23/18 07:58 Oxygen Delivery Method Room Air Weight: 182 lb 1.629 oz Body Mass Index (BMI) 26.1 Intake and Output for Last 24 Hours 12/21/18 12/22/18 12/23/18 23:59 23:59 23:59 Intake Total 350 / 350 Balance 350 / 350 Microbiology Past 72 Hours 12/22/18 20:05 Urine, Clean Catch Streptococcus pneumoniae Antigen (M - Final 12/22/18 20:05 Urine, Clean Catch Legionella Antigen - Final 12/22/18 10:55 Mucosa - Nose Respiratory Panel (PCR) - Final Laboratory Results 12/22/18 08:30: Hemoglobin A1c < 3.5 L 12/22/18 11:58: POC Glucose 112 H 12/22/18 12:15: MRSA (PCR) Negative 12/22/18 16:43: POC Glucose 118 H 12/22/18 21:40: POC Glucose 114 H 12/23/18 05:49: WBC 18.9 H, RBC 3.33 L, Hgb 9.2 L, Hct 31.0 L, MCV 93.1, MCH 27.6, MCHC 29.7 L, RDW 17.3 H, RDW Differential 55.6 H, Plt Count 353, MPV 9.0, Immature Gran % (Auto) 0.300, Neut % (Auto) 82.9 H, Lymph % (Auto) 6.7 L, [place] % (Auto) 8.5, Eos % (Auto) 1.4, Baso % (Auto) 0.2, Absolute Neuts (auto) 15.6 H, Absolute Lymphs (auto) 1.26, Total Counted Not Reportable 12/23/18 05:49: Sodium Cancelled, Potassium Cancelled, Chloride Cancelled, Carbon Dioxide Cancelled, Anion Gap Cancelled, BUN Cancelled, Creatinine Cancelled, Estim Creat Clear Calc Cancelled, Est GFR (MDRD) Af Amer Cancelled, Est GFR (MDRD) Non-Af Cancelled, BUN/Creatinine Ratio Cancelled, Glucose Cancelled, Calcium Cancelled 12/23/18 06:34: POC Glucose 109 12/23/18 06:45: Sodium 135 L, Potassium 5.5 H, Chloride 97 L, Carbon Dioxide 27.0, Anion Gap 11, BUN 58 H, Creatinine 8.42 H*, Estim Creat Clear Calc 10.11, Est GFR (MDRD) Af Amer 9 L, Est GFR (MDRD) Non-Af 7 L, BUN/Creatinine Ratio 6.9 L, Glucose 105, Calcium 8.9 Current Medications Acetaminophen (Tylenol) 650 mg PO Q6H PRN PRN PRN Reason: Non-cardiac pain (mod-severe) Al Hydroxide/Mg Hydroxide (Mylanta Ii) 30 ml PO Q6H PRN PRN PRN Reason: Gastric burning Albuterol Sulfate (Ventolin Aerosols) 2.5 mg INHALATION Q2H PRN PRN PRN Reason: SHORTNESS OF BREATH Albuterol/Ipratropium (Duoneb) 3 ml INHALATION Q6HWA.RT [facility] Last Admin: 12/23/18 07:19 Dose: 3 ml Amlodipine Besylate (Norvasc) 10 mg PO QHS [facility] Last Admin: 12/22/18 21:46 Dose: 10 mg Atorvastatin Calcium (Lipitor) 10 mg PO QHS [facility] Last Admin: 12/22/18 21:47 Dose: 10 mg Calcium Acetate (Phoslo Gel Cap) 1,334 mg PO TIDCM [facility] Last Admin: 12/22/18 16:46 Dose: 1,334 mg Citalopram Hydrobromide (Celexa) 40 mg PO QHS [facility] Last Admin: 12/22/18 21:47 Dose: 40 mg Guaifenesin (Mucinex) 1,200 mg PO BID [facility] Last Admin: 12/22/18 21:46 Dose: Not Given Heparin Sodium (Porcine) (Heparin Na) 5,000 unit SC Q12 [facility] Last Admin: 12/22/18 21:47 Dose: 5,000 unit Hydralazine HCl (Apresoline Iv) 10 mg IV Q4H PRN PRN PRN Reason: SBP > 160 Hydralazine HCl (Apresoline) 25 mg PO TID [facility] Last Admin: 12/23/18 06:35 Dose: 25 mg Hydromorphone HCl (Dilaudid Inj) 0.5 mg IV Q4H PRN PRN PRN Reason: SEVERE PAIN (6-10/10) Piperacillin Sod/Tazobactam Sod (Zosyn) 3.375 gm in 50 mls @ 12.5 mls/hr IV Q12 [facility] Last Admin: 12/22/18 21:45 Dose: 12.5 mls/hr Insulin Human Lispro (Humalog Kwikpen (Bkc)) 0 unit SC ACHS [facility]; Protocol Last Admin: 12/23/18 06:41 Dose: Not Given Ketorolac Tromethamine (Toradol) 15 mg IV Q8 [facility] Stop: 12/24/18 14:01 Levothyroxine Sodium (Synthroid) 150 mcg PO QHS [facility] Last Admin: 12/22/18 21:46 Dose: 150 mcg Magnesium Hydroxide (Milk Of Magnesia) 30 ml PO DAILY PRN PRN PRN Reason: Constipation Ondansetron HCl (Zofran) 4 mg IV Q8H PRN PRN PRN Reason: NAUSEA/VOMITING Oxycodone HCl (Oxyir) 5 - 10 mg PO Q4H PRN PRN PRN Reason: SEVERE PAIN (6-10/10) Last Admin: 12/23/18 03:32 Dose: 10 mg Pantoprazole Sodium (Protonix) 20 mg PO BID [facility] Last Admin: 12/22/18 21:46 Dose: 20 mg Sodium Chloride () 5 - 15 ml IV UD PRN PRN Reason: SALINE FLUSH Last Admin: 12/23/18 06:39 Dose: 10 ml Medical Necessity - Tobacco Use Smoking Status: Never smoker Tobacco Use: Chew Assessment/Plan All Active Problems (Last Updated 12/09/18 @ 16:06 by Nancie Wilkes MD) Healthcare-associated pneumonia (Acute) The patient is a 58 y/o M w/ PMHx: AOCD, DAVID, Diastolic CHF, History prior GI bleed, Chronic abdominal pain w/ adenopathy, Diabetes mellitus type II, HTN, HLD, Hypothyroidism, Chronic BL LE lymphedema, ESRD on HD TThSat w/ Dr. Blakely w/ R chest port w/ LUE fistula, Anxiety and Depression who presents to the [facility] ED on 12/22/18 with history of recent BL LL and UL PNA diagnosis discharged on 12/10/18 prior placed on oral renally dosed levaquin w/ improvement but worsened with L sided chest pain, worse with inspiration, worse with coughing, unable to lay down secondary to discomfort over the last 2-3 days. (1) HCAP Pneumonia LLL: History of recent BL LL and UL PNA diagnosis discharged on 12/10/18 prior placed on oral renally dosed levaquin w/ improvement but worsened with L sided chest pain, elevated WBC 21.2 with L shift, CXR in the ED w/ notable LLL infiltrate. Admitted to OR given clinical stability, remains on room air, continue ATC duonebs, PRN albuterol, maintained on IV Zosyn and Vancomycin-->Zosyn following Pulmonary evaluation, HOB, IS parameters w/ requested sputum culture, negative urine antigents (still makes urine) and negative respiratory viral panel. Bld cx x 2 obtained in the ED. Pleuritic pain improved w/ pain regimen alteration, will dose IV lower dose toradol x 5 doses to assist w/ control given ESRD on HD already and notable severe pain prior w/ attempt to de-escalate narcotics per recommendation of Pulmonary. (2) ESRD: On HD, R chest port w/ maturing LUE fistula, HD T, TH, Sat, Dr. Blakely consulted and following, 12/23/18 AM HD being set-up. (3) History of Diabetes mellitus type II: Not on regimen, noted history, HgbA1c <3.5%, transition to cardiac diet, discontinue accu checks/ISS. (4) AOCD: Admission Hgb 9.7, baseline 7-9 range, stable, 12/23/18 Hgb 9.2, stable, trend. (5) Hypertension: Continue home regimen including Norvasc, Hydralazine, PRN hydralazine. (6) Hyperlipidemia: Continue home statin regimen. (7) Hypothyroidism: Continue home synthroid regimen. (8) Chronic Diastolic CHF: ESRD history, on HD, not on ASA possible secondary to GI bleed history, not on GEE/ARB secondary to ESRD history, on hydralazine, statin therapy. (9) Anxiety and Depression: Continue home citalopram regimen. (10) Chew Tobacco Use: Encourage cessation, RT consultation, NR if desired. (11) History of GI bleed: PPI. (12) DAVID: CPAP q HS. (13) DVT Prophylaxis: SCDs, heparin. Code Visit Inpatient E&M: 09864 Subs Hosp L2
--- NOTE | 2018-12-23 12:24 | CASEMGMT ---
SILVANA PHAM RE-ADMISSION NOTE: Admitted to [facility]U on 12/09/18 with dx of Acute CAP. Discharged home on PO Levaquin on 12/10/18. Re-admitted to [facility] with Pneumonia. Pt lives @ home with his independently. Per last RN CM assessment note, pt was planning on getting BIPAP supply company switched from [employer] but pt states he has not done this yet. Pt states he plans to contact [facility] to get set up with them. Offered to provide [facility]'s contact info, but pt declined, stating he can look up the information himself when he is ready. Pt has ESRD and goes to Dialysis T, TH, S. Chair time 0615. Pt states he was supposed to have surgery by Dr Owens for left fistula repair, but that has been placed on hold until his antibiotics are completed and he has recovered from the pneumonia. Pt does not currently have LW or HCPOA. Discussed this with pt. He states, I need to get all of that paperwork taken care of. I'll have to look into all of that when I get home. Offered AD info and SW contact info but pt declines any resources/information at this time. Pt states he used to see Dr Hernandez but I haven't seen him in a long time. Pt states he would like to switch to a different rn orthopaedic and states is interested in seeing Dr Curry. Instructed pt to talk with his PCP about getting referral to see Dr Curry, as he has not been consulted while here @ [facility] and referral would need to come from his PCP. Discussed discharge planning with pt and discussed HHC and CCN. Pt declines both HHC and CCN at this time, stating, I'm not needing any of that yet. States he gets along pretty good @ home. Pt states no transportation concerns. Pt denies having other concerns/needs at this time. Instructed pt to have CM notified if he has any other concers, questions, or needs re: discharge. Ellyn CARDENAS RN, CM
[2018-12-23] MEDS: Heparin 10,000 UNITS/10 ML Vial 3200 UNITS IV (12:38)
--- NOTE | 2018-12-23 12:52 | DIALYSIS ---
Hemodialysis tx completed x 4 hours without complications. Pt tolerated tx well, vitals stable throughout. Fluid removed 5,000ml using crit-line monitor to C-profile, with positive refill check. Next scheduled dialysis tx 12/25/18. Verbal report given to Scott June post tx.
[2018-12-23] MEDS: Heparin Injection (Vial) 5,000 UNIT/ML VIAL 5000 UNIT SC ×2 (14:04→22:08)
[2018-12-23] MEDS: Piperacil/Tazobactam 3.375 GM/50 ML ML IV ×2 (14:04→22:07)
[2018-12-23] MEDS: Calcium Acetate 667 MG Capsule 1334 MG PO ×2 (14:04→18:28)
[2018-12-23] MEDS: Pantoprazole Sodium 20 MG Tablet PO ×2 (14:04→22:13)
[2018-12-23] MEDS: guaiFENesin 1,200 MG Tablet 1200 MG PO (14:05)
[2018-12-23] MEDS: Ketorolac 15 MG/ML Vial IV ×2 (14:05→22:13)
[2018-12-23 14:31] LABS: Bedside Glucose 98 mg/dL (70-110)
[2018-12-23] MEDS: amLODIPine 10 MG Tablet PO (22:08)
[2018-12-23] MEDS: Atorvastatin Calcium 10 MG Tablet PO (22:08)
[2018-12-23] MEDS: Citalopram 40 MG TABLET PO (22:08)
[2018-12-23] MEDS: Levothyroxine 150 MCG Tablet PO (22:13)
[2018-12-23 22:30] LABS: Bedside Glucose 104 mg/dL (70-110)
[2018-12-24] VITALS (7 sets, daily range): BP systolic 116–128; BP diastolic 58–64; PULSE 77–84; RESP 16–18; TEMP 36.3–36.8; O2SAT 94–95
[2018-12-24 05:49] LABS: Absolute Lymphocyte Count 1.57 X10^3/ul (0.83-4.51); Absolute Neutrophil Count 5.4 X10^3/uL (2.0-7.7); Basophil# 0.06 X10^3/uL; Basophil% 0.7 % (0-1); Eosinophil# 0.32 X10^3/uL; Eosinophils% 3.9 % (0-5); Hemoglobin 7.7 g/dl (13.0-16.5); Lymphocyte # 1.57 X10^3/ul (4.0); Lymphocyte % 18.9 % (19-41); Mean Corp Hgb Conc 29.6 g/gl (32-36); Mean Corpuscular Hgb 27.5 pg (27.0-32.0); Mean Corpuscular Volume 92.9 fL (80-94); Mean Platelet Vol. 8.9 fl (6.2-12.0); Monocyte# 0.92 X10^3/uL; Monocyte% 11.1 % (0-10); Neutrophil # 5.42 X10^3/uL (2.7-7.7); Neutrophil % 65.2 % (47-70); Platelet Count 268 K/mm3 (150-450); RBC Distribution Width CV 16.7 % (11.6-14.6); RBC Distribution Width SD 54.6 fl (35.1-43.9); White Blood Count 8.3 K/mm3 (4.4-11.0)
[2018-12-24 05:51] LABS: POSITIVE COUNT NO; POSITIVE DIFFERENTIAL NO; POSITIVE MORPHOLOGY NO
[2018-12-24 05:57] LABS: Anion Gap 13 (5-15); BUN 37 mg/dL (7-18); BUN/Creat Ratio 6.2 RATIO (10-20); Calcium,Total 8.2 mg/dL (8.5-10.1); Chloride 96 mmol/L (98-107); Creatinine, Serum 5.96 mg/dL (0.70-1.30); EST Glomerular Filtration Rate 11 mL/min (>60); Est Glom Filt Rate - Afr Amer 13 mL/min (>60); Estimated Creatinine Clearance 14.29 ml/min; Glucose 77 mg/dL (74-106); Potassium 5.2 mmol/L (3.5-5.1); Sodium Level 136 mmol/L (136-145)
[2018-12-24] MEDS: Ketorolac 15 MG/ML Vial IV (06:27)
[2018-12-24] MEDS: hydrALAZINE 25 MG Tablet PO (06:27)
[2018-12-24] MEDS: 0.9% NaCl Peripheral Flush Adult/Peds IV ×2 (06:30→06:32)
[2018-12-24 06:36] LABS: Bedside Glucose 76 mg/dL (70-110)
[2018-12-24] MEDS: guaiFENesin 1,200 MG Tablet 1200 MG PO (08:53)
[2018-12-24] MEDS: Calcium Acetate 667 MG Capsule 1334 MG PO (08:53)
[2018-12-24] MEDS: Pantoprazole Sodium 20 MG Tablet PO (08:53)
[2018-12-24] MEDS: Heparin Injection (Vial) 5,000 UNIT/ML VIAL 5000 UNIT SC (08:54)
--- NOTE | 2018-12-24 09:50 | PCM.DC ---
- Discharge Diagnoses Current Active Problems: (1) HCAP Pneumonia LLL, Unclear Organism, Possible GN w/ L sided Pleuritic Chest Pain (2) ESRD on HD (3) History of Diabetes mellitus type II (HgbA1c < 3.5%) (4) AOCD (5) Hypertension (6) Hyperlipidemia (7) Hypothyroidism (8) Chronic Diastolic CHF (9) Anxiety and Depression (10) Chew Tobacco Use (11) History of GI bleed (12) DAVID (13) COPD You will use the following diet at home:: Cardiac, Renal (restricted protein/sodium) Your food should be the consistency of: Regular Your liquids should be the consistency of: Regular/Thin Discharge Activity: - - Advise avoidance of aggressive activity, cold weather prolonged exposure until re-assessed per your primary care physician. May resume sexual activity in: 10-14 days Weight Bearing Status: Weight bearing as tolerated Call your doctor if you observe: Fever of 101 or Higher, Inability to urinate, Inability to have a bowel movement, Shortness of breath, Dizziness, Fainting spells, Chest pain, Uncontrolled pain Instructions: What Is Pneumonia?, Preventing Pneumonia, Pneumonia Treatment, ED Strain Chest Wall Additional Instructions: Upon discharge discussion with Infectious Disease and Dr. Blakely, plan dosing cefepime IV prior to discharge and again following dialysis on and Saturday to complete your antibiotic regimen. Please continue to take the toradol oral regimen and PRN pain regimen for the pleuritic chest pain; however, if it has resolved please discontinue. If needed you may discuss with prolonging the anti-inflammatory regimen with your primary care physician as needed. Allergies/Adverse Reactions: Allergies epoetin beta [From Mircera] Adverse Reaction (Verified 12/09/18 10:59) back pain Medications to take at Discharge Levothyroxine [Synthroid] 150 mcg PO QHS 10/28/15 Simvastatin [Zocor] 20 mg PO QHS 10/28/15 Citalopram Hydrobromide [Citalopram HBr] 40 mg PO QHS 01/03/18 Ergocalciferol [Vitamin D] 50,000 unit PO QMONTH 01/21/18 Amlodipine [Norvasc] 10 mg PO QHS 05/08/18 hydrALAZINE [Apresoline] 25 mg PO TID 05/08/18 Calcium Acetate 2 cap PO TIDCM 08/01/18 Yoko-Anna 0.8 mg PO QHS 08/01/18 Albuterol Aerosols [Ventolin Aerosols] 2.5 mg INHALATION Q2H PRN PRN #1 box 12/24/18 Cefepime HCl [Maxipime] 2 gm IV X1 #2 vial 12/24/18 Guaifenesin [Mucinex] 1,200 mg PO BID #20 tablet 12/24/18 Ipratropium/Albuterol Sulfate [Duoneb] 3 ml INHALATION Q6HWA.RT 10 Days #1 box 12/24/18 Ketorolac [Toradol] 10 mg PO Q8H 2 Days #6 tablet 12/24/18 Nebulizer [Aeroneb Go Nebulizer] 1 ea UD #1 ea 12/24/18 Oxycodone [Oxyir] 5 - 10 mg PO Q4H PRN PRN 2 Days #20 tablet 12/24/18 The following prescriptions were given: Albuterol Aerosols [Ventolin Aerosols] 2.5 mg INHALATION Q2H PRN PRN #1 box PRN Reason: Shortness Of Breath Oxycodone [Oxyir] 5 - 10 mg PO Q4H PRN PRN 2 Days #20 tablet PRN Reason: Severe Pain (6-10/10) Ipratropium/Albuterol Sulfate [Duoneb] 3 ml INHALATION Q6HWA.RT 10 Days #1 box Cefepime HCl [Maxipime] 2 gm IV X1 #2 vial Ketorolac [Toradol] 10 mg PO Q8H 2 Days #6 tablet Nebulizer [Aeroneb Go Nebulizer] 1 [facility] UD #1 ea Guaifenesin [Mucinex] 1,200 mg PO BID #20 tablet Primary Care Physician: Marques Caba MD [Primary Care Provider] - Please follow up with your Primary Care Physician in: Follow-up within 3-5 days to review admission. Test Results: Test results from this visit will be discussed in further detail at your follow-up appointment, if applicable. Please Follow Up With: Thiago Curry MD When: Please follow-up in 2-4 weeks, may see MEDICAL TECH. Proposed Discharge Date: 12/24/18
--- NOTE | 2018-12-24 09:54 | DCINST_ITS ---
- Discharge Diagnoses Current Active Problems: (1) HCAP Pneumonia LLL, Unclear Organism, Possible GN w/ L sided Pleuritic Chest Pain (2) ESRD on HD (3) History of Diabetes mellitus type II (HgbA1c < 3.5%) (4) AOCD (5) Hypertension (6) Hyperlipidemia (7) Hypothyroidism (8) Chronic Diastolic CHF (9) Anxiety and Depression (10) Chew Tobacco Use (11) History of GI bleed (12) DAVID (13) COPD You will use the following diet at home:: Cardiac, Renal (restricted protein/sodium) Your food should be the consistency of: Regular Your liquids should be the consistency of: Regular/Thin Discharge Activity: - - Advise avoidance of aggressive activity, cold weather prolonged exposure until re-assessed per your primary care physician. May resume sexual activity in: 10-14 days Weight Bearing Status: Weight bearing as tolerated Call your doctor if you observe: Fever of 101 or Higher, Inability to urinate, Inability to have a bowel movement, Shortness of breath, Dizziness, Fainting spells, Chest pain, Uncontrolled pain Instructions: What Is Pneumonia?, Preventing Pneumonia, Pneumonia Treatment, ED Strain Chest Wall Additional Instructions: Upon discharge discussion with Infectious Disease and Dr. Blakely, plan dosing cefepime IV prior to discharge and again following dialysis on and Saturday to complete your antibiotic regimen. Please continue to take the toradol oral regimen and PRN pain regimen for the pleuritic chest pain; however, if it has resolved please discontinue. If needed you may discuss with prolonging the anti-inflammatory regimen with your primary care physician as needed. Allergies/Adverse Reactions: Allergies epoetin beta [From Mircera] Adverse Reaction (Verified 12/09/18 10:59) back pain Medications to take at Discharge Levothyroxine [Synthroid] 150 mcg PO QHS 10/28/15 Simvastatin [Zocor] 20 mg PO QHS 10/28/15 Citalopram Hydrobromide [Citalopram HBr] 40 mg PO QHS 01/03/18 Ergocalciferol [Vitamin D] 50,000 unit PO QMONTH 01/21/18 Amlodipine [Norvasc] 10 mg PO QHS 05/08/18 hydrALAZINE [Apresoline] 25 mg PO TID 05/08/18 Calcium Acetate 2 cap PO TIDCM 08/01/18 Yoko-Anna 0.8 mg PO QHS 08/01/18 Albuterol Aerosols [Ventolin Aerosols] 2.5 mg INHALATION Q2H PRN PRN #1 box 12/24/18 Cefepime HCl [Maxipime] 2 gm IV X1 #2 vial 12/24/18 Guaifenesin [Mucinex] 1,200 mg PO BID #20 tablet 12/24/18 Ipratropium/Albuterol Sulfate [Duoneb] 3 ml INHALATION Q6HWA.RT 10 Days #1 box 12/24/18 Ketorolac [Toradol] 10 mg PO Q8H 2 Days #6 tablet 12/24/18 Nebulizer [Aeroneb Go Nebulizer] 1 ea UD #1 ea 12/24/18 Oxycodone [Oxyir] 5 - 10 mg PO Q4H PRN PRN 2 Days #20 tablet 12/24/18 The following prescriptions were given: Albuterol Aerosols [Ventolin Aerosols] 2.5 mg INHALATION Q2H PRN PRN #1 box PRN Reason: Shortness Of Breath Oxycodone [Oxyir] 5 - 10 mg PO Q4H PRN PRN 2 Days #20 tablet PRN Reason: Severe Pain (6-10/10) Ipratropium/Albuterol Sulfate [Duoneb] 3 ml INHALATION Q6HWA.RT 10 Days #1 box Cefepime HCl [Maxipime] 2 gm IV X1 #2 vial Ketorolac [Toradol] 10 mg PO Q8H 2 Days #6 tablet Nebulizer [Aeroneb Go Nebulizer] 1 [facility] UD #1 ea Guaifenesin [Mucinex] 1,200 mg PO BID #20 tablet Primary Care Physician: Marques Caba MD [Primary Care Provider] - Please follow up with your Primary Care Physician in: Follow-up within 3-5 days to review admission. Test Results: Test results from this visit will be discussed in further detail at your follow- up appointment, if applicable. Please Follow Up With: Thiago Curry MD When: Please follow-up in 2-4 weeks, may see POLE [employer]KER. Proposed Discharge Date: 12/24/18
--- NOTE | 2018-12-24 10:24 | PCM.PROGNOTE ---
Subjective: The patient was seen and examined at the bedside this morning. Events from the last 24 hours have been reviewed. The patient is currently afebrile, hemodynamically stable and maintaining appropriate oxygen saturations on room air. The patient tolerated hemodialysis yesterday with 5 L of fluid removed. The patient's pain appears to be controlled at this time. Objective: The patient's most recent lab work, culture data and imaging studies have all been personally reviewed. Strep and urine Legionella antigens were both negative. Respiratory viral panel was negative. - Physical Exam General: Alert, Cooperative, No apparent distress HEENT: Atraumatic, PERRLA, Normocephalic Oral: No Gingival or Mucosal Lesions/ Ulcerations Neck: Supple, No Nodes, Trachea Midline Lungs: No rhonchi, No wheeze, No rales, Diminished Cardiovascular: Regular rate, Regular Rhythm, Normal S1, Normal S2, No murmurs Abdomen: Bowel Sounds Present, Soft, Non Tender Extremities: No clubbing, No cyanosis, No edema Skin: No breakdown Musculoskeletal: No Tenderness to Palpation of Joints or Extremities Lymphatic: No Cervical, Supraclavicular, or Inguinal Adenopathy Neurological: Cranial nerves II-XII grossly intact, Neuro grossly intact Psych/Mental Status: Normal Affect, Appropriate Vital Signs Temp Pulse Resp BP Pulse Ox 36.6 C 80 18 122/58 H 94 12/24/18 09:00 12/24/18 09:00 12/24/18 09:00 12/24/18 09:00 12/24/18 09:00 Oxygen Delivery Method Room Air Weight: 176 lb 2.389 oz Body Mass Index (BMI) 26.1 Intake and Output for Last 24 Hours 12/22/18 12/23/18 12/24/18 23:59 23:59 23:59 Intake Total 1046 / 1046 650 / 650 Output Total 5000 / 5000 Balance -3954 / -3954 650 / 650 Microbiology Past 72 Hours 12/22/18 20:05 Streptococcus pneumoniae Antigen (M - Final Urine, Clean Catch 12/22/18 20:05 Legionella Antigen - Final Urine, Clean Catch 12/22/18 10:55 Respiratory Panel (PCR) - Final Mucosa - Nose Laboratory Tests Past 24 Hrs 12/24/18 12/24/18 05:14 05:14 WBC 8.3 RBC 2.80 L Hgb 7.7 L Hct 26.0 L MCV 92.9 MCH 27.5 MCHC 29.6 L RDW 16.7 H RDW Differential 54.6 H Plt Count 268 MPV 8.9 Immature Gran % (Auto) 0.200 Neut % (Auto) 65.2 Lymph % (Auto) 18.9 L [place] % (Auto) 11.1 H Eos % (Auto) 3.9 Baso % (Auto) 0.7 Absolute Neuts (auto) 5.4 Absolute Lymphs (auto) 1.57 Total Counted Not Reportable Sodium 136 Potassium 5.2 H Chloride 96 L Carbon Dioxide 27.0 Anion Gap 13 BUN 37 H Creatinine 5.96 H Estim Creat Clear Calc 14.29 Est GFR (MDRD) Af Amer 13 L Est GFR (MDRD) Non-Af 11 L BUN/Creatinine Ratio 6.2 L Glucose 77 Calcium 8.2 L POC Glucose 12/24/18 12/23/18 12/23/18 06:31 22:04 13:54 POC Glucose 76 104 98 Clinical Impression(s) from Imaging Studies Chest X-Ray 12/22/18 08:20 IMPRESSION: Left lower lung infiltrate. Electronically Signed: Arpit Ansari MD at 8:57 EST , Service support , Medical Necessity - Tobacco Use Smoking Status: Never smoker Tobacco Use: Chew Assessment/Plan All Active Problems (Last Updated 12/09/18 @ 16:06 by Nancie Wilkes MD) Healthcare-associated pneumonia (Acute) RECOMMENDATIONS: 1. Continue cefepime x2 additional doses 2. Continue NSAID for pain control 3. Encourage incentive spirometer use IMPRESSIONS: 1. Pleuritic type chest pain Although the patient's initial plain film chest x-ray was initially read as showing a notable left lower lobe infiltrate, I am less than impressed by his current radiographic findings. The groundglass changes noted on prior CTA could have been pulmonary edema or atypical infectious process, potentially viral. The patient's leukocytosis has improved with Zosyn. At this time, he is going to receive 2 additional doses of cefepime with dialysis, after which time, antibiotics will be completed. I do believe that his current chest pain complaints are likely musculoskeletal in nature. Continue current pain control regimen. Continue to encourage incentive spirometer use. 2. End-stage renal disease on hemodialysis Continue hemodialysis per nephrology recommendations. 3. History of DAVID/tobacco dependence/heart failure with preserved ejection fraction/hypothyroidism/hypertension/hyperlipidemia Complicates care, management, recovery and prognosis. Okay to continue home medications as indicated. This note was generated with [employer] dictation software. It may contain incorrect words, spelling, and punctuation that were not noted in checking the note before signing. Code Visit Inpatient E&M: 44655 Subs Hosp L2
--- NOTE | 2018-12-24 10:52 | PN.RENAL_ITS ---
Subjective: cough, pleuritic pain improved. Given toradol for pain. Will give iv cefepime on dialysis x2 doses. Pt losing wt. edema improved. Challenge TW - Physical Exam General: Alert, Oriented x3 Vital Signs Temp Pulse Resp BP Pulse Ox 97.8 F 80 18 122/58 H 94 12/24/18 09:00 12/24/18 09:00 12/24/18 09:00 12/24/18 09:00 12/24/18 09:00 Oxygen Delivery Method Room Air Weight: 79.9 kg Body Mass Index (BMI) 26.1 Intake and Output for Last 24 Hours 12/22/18 12/23/18 12/24/18 23:59 23:59 23:59 Intake Total 1046 / 1046 650 / 650 Output Total 5000 / 5000 Balance -3954 / -3954 650 / 650 Microbiology Past 72 Hours 12/22/18 20:05 Streptococcus pneumoniae Antigen (M - Final Urine, Clean Catch 12/22/18 20:05 Legionella Antigen - Final Urine, Clean Catch 12/22/18 10:55 Respiratory Panel (PCR) - Final Mucosa - Nose Laboratory Tests Past 24 Hrs 12/24/18 12/24/18 05:14 05:14 WBC 8.3 RBC 2.80 L Hgb 7.7 L Hct 26.0 L MCV 92.9 MCH 27.5 MCHC 29.6 L RDW 16.7 H RDW Differential 54.6 H Plt Count 268 MPV 8.9 Immature Gran % (Auto) 0.200 Neut % (Auto) 65.2 Lymph % (Auto) 18.9 L [place] % (Auto) 11.1 H Eos % (Auto) 3.9 Baso % (Auto) 0.7 Absolute Neuts (auto) 5.4 Absolute Lymphs (auto) 1.57 Total Counted Not Reportable Sodium 136 Potassium 5.2 H Chloride 96 L Carbon Dioxide 27.0 Anion Gap 13 BUN 37 H Creatinine 5.96 H Estim Creat Clear Calc 14.29 Est GFR (MDRD) Af Amer 13 L Est GFR (MDRD) Non-Af 11 L BUN/Creatinine Ratio 6.2 L Glucose 77 Calcium 8.2 L POC Glucose 12/24/18 12/23/18 12/23/18 06:31 22:04 13:54 POC Glucose 76 104 98 Medical Necessity - Tobacco Use Smoking Status: Never smoker Tobacco Use: Chew Assessment/Plan All Active Problems (Last Updated 12/09/18 @ 16:06 by Nancie Wilkes MD) Healthcare-associated pneumonia (Acute) 1. ESRD hemodialysis TTS. 2. Left lower lobe pneumonia iv cefepime 2g after dialysis x2 doses 3. Hypertension with stable blood pressures 4. DM type II primary care management 5. Anemia hemoglobin stable 6. Left-sided chest wall pain likely due to pleuritic pain, musculoskeletal in origin. ok to use toradol
--- NOTE | 2018-12-24 15:16 | PCM.DC.SUM ---
Discharge Date and Diagnosis Date of Admission: 12/22/18 Date of Discharge: 12/24/18 - Primary Discharge Diagnosis (1) HCAP Pneumonia LLL, Unclear Organism, Possible GN w/ L sided Pleuritic Chest Pain (2) ESRD on HD (3) History of Diabetes mellitus type II (HgbA1c < 3.5%) (4) AOCD (5) Hypertension (6) Hyperlipidemia (7) Hypothyroidism (8) Chronic Diastolic CHF (9) Anxiety and Depression (10) Chew Tobacco Use (11) History of GI bleed (12) DAVID (13) COPD - Secondary Discharge Diagnosis Chronic Problems (Last Updated 12/09/18 @ 16:06 by Nancie Wilkes MD) End stage renal disease on dialysis (Chronic) Anemia (Chronic) ESRD (end stage renal disease) (Chronic) Problem with dialysis access (Chronic) DAVID (obstructive sleep apnea) (Chronic) Lymphadenopathy (Chronic) Hyperlipidemia (Chronic) Hypothyroidism (Chronic) Hypertension (Chronic) Type II diabetes mellitus (Chronic) Hospital Course and Treatment Dr. Blakely Nephrology Dr. Prasad Pulmonary Operations: None Procedures: Dialysis Summary of Care Provided: The patient is a 58 y/o M w/ PMHx: AOCD, DAVID, Diastolic CHF, History prior GI bleed, Chronic abdominal pain w/ adenopathy, Diabetes mellitus type II, HTN, HLD, Hypothyroidism, Chronic BL LE lymphedema, ESRD on HD TThSat w/ Dr. Blakely w/ R chest port w/ LUE fistula, Anxiety and Depression who presented to the [facility] ED on 12/22/18 with history of recent BL LL and UL PNA diagnosis discharged on 12/10/18 prior placed on oral renally dosed levaquin w/ improvement but worsened with L sided chest pain, worse with inspiration, worse with coughing, unable to lay down secondary to discomfort over the last 2-3 days. History of recent BL LL and UL PNA diagnosis discharged on 12/10/18 prior placed on oral renally dosed levaquin w/ improvement but worsened with L sided chest pain, elevated WBC 21.2 with L shift, CXR in the ED w/ notable LLL infiltrate. Admitted to [facility] given clinical stability, remains on room air, continue ATC duonebs, PRN albuterol, maintained on IV Zosyn and Vancomycin-->Zosyn following Pulmonary evaluation, HOB, IS parameters w/ requested sputum culture but not obtained as unable to give, negative urine antigens (still makes urine) and negative respiratory viral panel. Bld cx x 2 obtained in the ED without growth. Pleuritic pain improved w/ pain regimen and dramatically with IV lower dose toradol x 5 dose regimen. Given prior presentation with discharge CBC with WBC 10.2 with resolved shift and return now with CBC w/ WBC 21.2 in the 20s with notable left shift-->18.9 and now improvement w/ 12/24/18 CBC w/ WBC 8.3 with resolving L shift, decision for transition to cefepime 1 gm x 1 on day of discharge w/ repeat dosing cefepime 2 gm IV following Th and Sat HD sessions which was discussed with Dr. Blakely and she noted plans to arrange this regimen at HD herself. Upon discharge additionally prescribed patient nebulizer as well as aerosol treatments suspect ongoing treatments as part of patient improvement with stronger condition to follow-up with primary care physician within 3-5 days in addition to follow-up with Dr. Curry, pulmonary medicine. DAY OF DISCHARGE PROGRESS NOTE: Subjective: Patient without acute event overnight per self and nursing report. She notes feeling remarkably improved from day prior with greater ease of breathing, reduction of pleuritic chest discomfort, moving in his room which she had not been doing prior. Patient denies fever, chills, nausea, emesis, abdominal pain, worsened chest pain or worsened dyspnea. Patient agreeable to discharge to home. Discussed plan of care with patient noting plan for IV cefepime on day of discharge in addition to follow-up IV cefepime following dialysis per discussion with career services officer which she is amenable patient will be discharged with follow-up with primary care physician within 3-5 days in addition to routine follow-up for dialysis. Objective: T 98.2, heart rate 84, BP 120/61, respiratory rate 94% on room air. Physical Examination: General: awake, alert, oriented x 3 and cooperative, seated upright in bedside chair, notably improved appearance. Skin: normal color, turgor, no icterus, cyanosis, maturing left upper extremity AVF. HEENT: AT/NC, EOMI, PERRLA, improved MMM. Lungs: Diminished at bases, markedly improved effort, improved expansion, decreased pleuritic chest discomfort with left-sided chest palpation, no rales, ronchi or wheezing. Heart: Regular rate and rhythm; no gallop, rub audible. Abdomen: soft, NTTP, ND, normal BS. Extremities: no cyanosis, clubbing, maturing left upper extremity AVF, BL LE mild ankle to distal brown edema resolved from day prior. Neurological: patient awake, alert, oriented x 3; cognitive function intact; pupils equally reactive to light and accomodation; cranial nerves II-XII grossly normal, moving all 4 extremities, no focal deficits, strength improved, mildly globally decreased. Psychiatric: affect appears improved, normal, no acute evidence of depressive or anxiety feelings. Assessment and Plan: Please see hospital summary above. - Physical Exam Vital Signs Temp Pulse Resp BP Pulse Ox 98.2 F 84 18 128/61 H 94 12/24/18 12:02 12/24/18 12:02 12/24/18 12:02 12/24/18 12:02 12/24/18 12:02 Oxygen Delivery Method Room Air Weight: 176 lb 2.389 oz Body Mass Index (BMI) 26.1 Intake and Output for Last 24 Hours 12/22/18 12/23/18 12/24/18 23:59 23:59 23:59 Intake Total 1046 / 1046 650 / 650 Output Total 5000 / 5000 Balance -3954 / -3954 650 / 650 Microbiology Past 72 Hours 12/22/18 20:05 Streptococcus pneumoniae Antigen (M - Final Urine, Clean Catch 12/22/18 20:05 Legionella Antigen - Final Urine, Clean Catch 12/22/18 10:55 Respiratory Panel (PCR) - Final Mucosa - Nose Laboratory Tests Past 24 Hrs 12/24/18 12/24/18 05:14 05:14 WBC 8.3 RBC 2.80 L Hgb 7.7 L Hct 26.0 L MCV 92.9 MCH 27.5 MCHC 29.6 L RDW 16.7 H RDW Differential 54.6 H Plt Count 268 MPV 8.9 Immature Gran % (Auto) 0.200 Neut % (Auto) 65.2 Lymph % (Auto) 18.9 L Cook % (Auto) 11.1 H Eos % (Auto) 3.9 Baso % (Auto) 0.7 Absolute Neuts (auto) 5.4 Absolute Lymphs (auto) 1.57 Total Counted Not Reportable Sodium 136 Potassium 5.2 H Chloride 96 L Carbon Dioxide 27.0 Anion Gap 13 BUN 37 H Creatinine 5.96 H Estim Creat Clear Calc 14.29 Est GFR (MDRD) Af Amer 13 L Est GFR (MDRD) Non-Af 11 L BUN/Creatinine Ratio 6.2 L Glucose 77 Calcium 8.2 L POC Glucose 12/24/18 12/23/18 06:31 22:04 POC Glucose 76 104 Discharge Activity: - - Advise avoidance of aggressive activity, cold weather prolonged exposure until re-assessed per your primary care physician. May resume sexual activity in: 10-14 days Weight Bearing Status: Weight bearing as tolerated Call your doctor if you observe: Fever of 101 or Higher, Inability to urinate, Inability to have a bowel movement, Shortness of breath, Dizziness, Fainting spells, Chest pain, Uncontrolled pain Home Medications: Medications to take at Discharge Levothyroxine [Synthroid] 150 mcg PO QHS 10/28/15 Simvastatin [Zocor] 20 mg PO QHS 10/28/15 Citalopram Hydrobromide [Citalopram HBr] 40 mg PO QHS 01/03/18 Ergocalciferol [Vitamin D] 50,000 unit PO QMONTH 01/21/18 Amlodipine [Norvasc] 10 mg PO QHS 05/08/18 hydrALAZINE [Apresoline] 25 mg PO TID 05/08/18 Calcium Acetate 2 cap PO TIDCM 08/01/18 Yoko-Anna 0.8 mg PO QHS 08/01/18 Albuterol Aerosols [Ventolin Aerosols] 2.5 mg INHALATION Q2H PRN PRN #1 box 12/24/18 Cefepime HCl [Maxipime] 2 gm IV X1 #2 vial 12/24/18 Guaifenesin [Mucinex] 1,200 mg PO BID #20 tablet 12/24/18 Ipratropium/Albuterol Sulfate [Duoneb] 3 ml INHALATION Q6HWA.RT 10 Days #1 box 12/24/18 Ketorolac [Toradol] 10 mg PO Q8H 2 Days #6 tablet 12/24/18 Nebulizer [Aeroneb Go Nebulizer] 1 ea MC UD #1 ea 12/24/18 Oxycodone [Oxyir] 5 - 10 mg PO Q4H PRN PRN 2 Days #20 tablet 12/24/18 Following Prescrptions Were Given to Patient: Albuterol Aerosols [Ventolin Aerosols] 2.5 mg INHALATION Q2H PRN PRN #1 box PRN Reason: Shortness Of Breath Oxycodone [Oxyir] 5 - 10 mg PO Q4H PRN PRN 2 Days #20 tablet PRN Reason: Severe Pain (6-10/10) Ipratropium/Albuterol Sulfate [Duoneb] 3 ml INHALATION Q6HWA.RT 10 Days #1 box Cefepime HCl [Maxipime] 2 gm IV X1 #2 vial Ketorolac [Toradol] 10 mg PO Q8H 2 Days #6 tablet Nebulizer [Aeroneb Go Nebulizer] 1 ea MC UD #1 ea Guaifenesin [Mucinex] 1,200 mg PO BID #20 tablet Primary Care Physician: Marques Caba MD [Primary Care Provider] - Please follow up with your Primary Care Physician in: Follow-up within 3-5 days to review admission. Please Follow Up With: Thiago Curry MD When: Please follow-up in 2-4 weeks, may see [employer]. Patient Instructions: What Is Pneumonia?, Preventing Pneumonia, Pneumonia Treatment, ED Strain Chest Wall Disposition: Home Minutes spent on discharge:: 35 Patient Condition:: Fair Medical Necessity - Tobacco Use Smoking Status: Never smoker Tobacco Use: Chew Meaningful Use Info Meaningful Use Diagnoses (Choose all that apply): None applicable Code Visit Inpatient E&M: 97261 Disch Hosp
--- NOTE | 2018-12-24 15:22 | DS.PCM_ITS ---
Discharge Date and Diagnosis Date of Admission: 12/22/18 Date of Discharge: 12/24/18 - Primary Discharge Diagnosis (1) HCAP Pneumonia LLL, Unclear Organism, Possible GN w/ L sided Pleuritic Chest Pain (2) ESRD on HD (3) History of Diabetes mellitus type II (HgbA1c < 3.5%) (4) AOCD (5) Hypertension (6) Hyperlipidemia (7) Hypothyroidism (8) Chronic Diastolic CHF (9) Anxiety and Depression (10) Chew Tobacco Use (11) History of GI bleed (12) DAVID (13) COPD - Secondary Discharge Diagnosis Chronic Problems (Last Updated 12/09/18 @ 16:06 by Nancie Wilkes MD) End stage renal disease on dialysis (Chronic) Anemia (Chronic) ESRD (end stage renal disease) (Chronic) Problem with dialysis access (Chronic) DAVID (obstructive sleep apnea) (Chronic) Lymphadenopathy (Chronic) Hyperlipidemia (Chronic) Hypothyroidism (Chronic) Hypertension (Chronic) Type II diabetes mellitus (Chronic) Hospital Course and Treatment Dr. Blakely Nephrology Dr. Prasad Pulmonary Operations: None Procedures: Dialysis Summary of Care Provided: The patient is a 58 y/o M w/ PMHx: AOCD, DAVID, Diastolic CHF, History prior GI bleed, Chronic abdominal pain w/ adenopathy, Diabetes mellitus type II, HTN, HLD, Hypothyroidism, Chronic BL LE lymphedema, ESRD on HD TThSat w/ Dr. Blakely w/ R chest port w/ LUE fistula, Anxiety and Depression who presented to the [facility] ED on 12/22/18 with history of recent BL LL and UL PNA diagnosis discharged on 12/10/18 prior placed on oral renally dosed levaquin w/ improvement but worsened with L sided chest pain, worse with inspiration, worse with coughing, unable to lay down secondary to discomfort over the last 2-3 days. History of recent BL LL and UL PNA diagnosis discharged on 12/10/18 prior placed on oral renally dosed levaquin w/ improvement but worsened with L sided chest pain, elevated WBC 21.2 with L shift, CXR in the ED w/ notable LLL infiltrate. Admitted to [facility] given clinical stability, remains on room air, continue ATC duonebs, PRN albuterol, maintained on IV Zosyn and Vancomycin-->Zosyn following Pulmonary evaluation, HOB, IS parameters w/ requested sputum culture but not obtained as unable to give, negative urine antigens (still makes urine) and negative respiratory viral panel. Bld cx x 2 obtained in the ED without growth. Pleuritic pain improved w/ pain regimen and dramatically with IV lower dose toradol x 5 dose regimen. Giv en prior presentation with discharge CBC with WBC 10.2 with resolved shift and return now with CBC w/ WBC 21.2 in the 20s with notable left shift-->18.9 and now improvement w/ 12/24/18 CBC w/ WBC 8.3 with resolving L shift, decision for transition to cefepime 1 gm x 1 on day of discharge w/ repeat dosing cefepime 2 gm IV following Th and Sat HD sessions which was discussed with Dr. Blakely and she noted plans to arrange this regimen at HD herself. Upon discharge additionally prescribed patient nebulizer as well as aerosol treatments suspect ongoing treatments as part of patient improvement with stronger condition to follow-up with primary care physician within 3-5 days in addition to follow-up with Dr. Curry, pulmonary medicine. DAY OF DISCHARGE PROGRESS NOTE: Subjective: Patient without acute event overnight per self and nursing report. She notes feeling remarkably improved from day prior with greater ease of breathing, reduction of pleuritic chest discomfort, moving in his room which she had not been doing prior. Patient denies fever, chills, nausea, emesis, abdominal pain, worsened chest pain or worsened dyspnea. Patient agreeable to discharge to home. Discussed plan of care with patient noting plan for IV cefepime on day of discharge in addition to follow-up IV cefepime following dialysis per discussion with shank threader which she is amenable patient will be discharged with follow-up with primary care physician within 3-5 days in addition to routine follow-up for dialysis. Objective: T 98.2, heart rate 84, BP 120/61, respiratory rate 94% on room air. Physical Examination: General: awake, alert, oriented x 3 and cooperative, seated upright in bedside chair, notably improved appearance. Skin: normal color, turgor, no icterus, cyanosis, maturing left upper extremity AVF. HEENT: AT/NC, EOMI, PERRLA, improved MMM. Lungs: Diminished at bases, markedly improved effort, improved expansion, decreased pleuritic chest discomfort with left-sided chest palpation, no rales, ronchi or wheezing. Heart: Regular rate and rhythm; no gallop, rub audible. Abdomen: soft, NTTP, ND, normal BS. Extremities: no cyanosis, clubbing, maturing left upper extremity AVF, BL LE mild ankle to distal brown edema resolved from day prior. Neurological: patient awake, alert, oriented x 3; cognitive function intact; pupils equally reactive to light and accomodation; cranial nerves II-XII grossly normal, moving all 4 extremities, no focal deficits, strength improved, mildly globally decreased. Psychiatric: affect appears improved, normal, no acute evidence of depressive or anxiety feelings. Assessment and Plan: Please see hospital summary above. - Physical Exam Vital Signs Temp Pulse Resp BP Pulse Ox 98.2 F 84 18 128/61 H 94 12/24/18 12:02 12/24/18 12:02 12/24/18 12:02 12/24/18 12:02 12/24/18 12:02 Oxygen Delivery Method Room Air Weight: 176 lb 2.389 oz Body Mass Index (BMI) 26.1 Intake and Output for Last 24 Hours 12/22/18 12/23/18 12/24/18 23:59 23:59 23:59 Intake Total 1046 / 1046 650 / 650 Output Total 5000 / 5000 Balance -3954 / -3954 650 / 650 Microbiology Past 72 Hours 12/22/18 20:05 Streptococcus pneumoniae Antigen (M - Final Urine, Clean Catch 12/22/18 20:05 Legionella Antigen - Final Urine, Clean Catch 12/22/18 10:55 Respiratory Panel (PCR) - Final Mucosa - Nose Laboratory Tests Past 24 Hrs 12/24/18 12/24/18 05:14 05:14 WBC 8.3 RBC 2.80 L Hgb 7.7 L Hct 26.0 L MCV 92.9 MCH 27.5 MCHC 29.6 L RDW 16.7 H RDW Differential 54.6 H Plt Count 268 MPV 8.9 Immature Gran % (Auto) 0.200 Neut % (Auto) 65.2 Lymph % (Auto) 18.9 L Cherry % (Auto) 11.1 H Eos % (Auto) 3.9 Baso % (Auto) 0.7 Absolute Neuts (auto) 5.4 Absolute Lymphs (auto) 1.57 Total Counted Not Reportable Sodium 136 Potassium 5.2 H Chloride 96 L Carbon Dioxide 27.0 Anion Gap 13 BUN 37 H Creatinine 5.96 H Estim Creat Clear Calc 14.29 Est GFR (MDRD) Af Amer 13 L Est GFR (MDRD) Non-Af 11 L BUN/Creatinine Ratio 6.2 L Glucose 77 Calcium 8.2 L POC Glucose 12/24/18 12/23/18 06:31 22:04 POC Glucose 76 104 Discharge Activity: - - Advise avoidance of aggressive activity, cold weather prolonged exposure until re-assessed per your primary care physician. May resume sexual activity in: 10-14 days Weight Bearing Status: Weight bearing as tolerated Call your doctor if you observe: Fever of 101 or Higher, Inability to urinate, Inability to have a bowel movement, Shortness of breath, Dizziness, Fainting spells, Chest pain, Uncontrolled pain Home Medications: Medications to take at Discharge Levothyroxine [Synthroid] 150 mcg PO QHS 10/28/15 Simvastatin [Zocor] 20 mg PO QHS 10/28/15 Citalopram Hydrobromide [Citalopram HBr] 40 mg PO QHS 01/03/18 Ergocalciferol [Vitamin D] 50,000 unit PO QMONTH 01/21/18 Amlodipine [Norvasc] 10 mg PO QHS 05/08/18 hydrALAZINE [Apresoline] 25 mg PO TID 05/08/18 Calcium Acetate 2 cap PO TIDCM 08/01/18 Yoko-Anna 0.8 mg PO QHS 08/01/18 Albuterol Aerosols [Ventolin Aerosols] 2.5 mg INHALATION Q2H PRN PRN #1 box 12/24/18 Cefepime HCl [Maxipime] 2 gm IV X1 #2 vial 12/24/18 Guaifenesin [Mucinex] 1,200 mg PO BID #20 tablet 12/24/18 Ipratropium/Albuterol Sulfate [Duoneb] 3 ml INHALATION Q6HWA.RT 10 Days #1 box 12/24/18 Ketorolac [Toradol] 10 mg PO Q8H 2 Days #6 tablet 12/24/18 Nebulizer [Aeroneb Go Nebulizer] 1 ea UD #1 ea 12/24/18 Oxycodone [Oxyir] 5 - 10 mg PO Q4H PRN PRN 2 Days #20 tablet 12/24/18 Following Prescrptions Were Given to Patient: Albuterol Aerosols [Ventolin Aerosols] 2.5 mg INHALATION Q2H PRN PRN #1 box PRN Reason: Shortness Of Breath Oxycodone [Oxyir] 5 - 10 mg PO Q4H PRN PRN 2 Days #20 tablet PRN Reason: Severe Pain (6-1010) Ipratropium/Albuterol Sulfate [Duoneb] 3 ml INHALATION Q6HWA.RT 10 Days #1 box Cefepime HCl [Maxipime] 2 gm IV X1 #2 vial Ketorolac [Toradol] 10 mg PO Q8H 2 Days #6 tablet Nebulizer [Aeroneb Go Nebulizer] 1 ea MC UD #1 ea Guaifenesin [Mucinex] 1,200 mg PO BID #20 tablet Primary Care Physician: Marques Caba MD [Primary Care Provider] - Please follow up with your Primary Care Physician in: Follow-up within 3-5 days to review admission. Please Follow Up With: Thiago Curry MD When: Please follow-up in 2-4 weeks, may see [employer]SE [employer]ECUT[employer]. Patient Instructions: What Is Pneumonia?, Preventing Pneumonia, Pneumonia Frieda stacient, ED Strain Chest Wall Disposition: Home Minutes spent on discharge:: 35 Patient Condition:: Fair Medical Necessity - Tobacco Use Smoking Status: Never smoker Tobacco Use: Chew Meaningful Use Info Meaningful Use Diagnoses (Choose all that apply): None applicable Code Visit Inpatient E&M: 52568 Disch Hosp
--- NOTE | 2018-12-26 14:30 | CASEMGMT ---
SILVANA DC phone call DC Date: 12/24/2018 DC Disposition: Home LACE/STRATA 14/4 No answer received and message did not identify name of recipient. No message left. John CARROLLN RN AC
== END 2018-12-24 12:03 | disposition home or self-care (01) | DRG 177 ==
LOC: ED 08:26 → MS3 09:32
PROVIDERS: Internal Medicine Critical Care Medicine; Admitting Provider Family Medicine; Emergency Provider Emergency Medicine; Family Provider Family Medicine; PCP Family Medicine; Visit Provider Family Medicine
DX: J15.6 Pneumonia due to other Gram-negative bacteria (principal); N18.6 End stage renal disease; I13.2 Hypertensive heart and chronic kidney disease with heart failure and with stage 5 chronic kidney disease, or end stage renal disease; I50.32 Chronic diastolic (congestive) heart failure; R07.81 Pleurodynia; Y95 Nosocomial condition; G47.33 Obstructive sleep apnea (adult) (pediatric); E03.9 Hypothyroidism, unspecified; E78.5 Hyperlipidemia, unspecified; F41.9 Anxiety disorder, unspecified; F32.9 Major depressive disorder, single episode, unspecified; D63.8 Anemia in other chronic diseases classified elsewhere; J44.9 Chronic obstructive pulmonary disease, unspecified; Z99.2 Dependence on renal dialysis; Z72.0 Tobacco use; Z79.899 Other long term (current) drug therapy; Z87.19 Personal history of other diseases of the digestive system; Z86.39 Personal history of other endocrine, nutritional and metabolic disease
CPT/HCPCS: 36415; 71046; 80048; 82962; 83036; 83735; 84484; 85025; 87449; 87633; 87641; 90937; 93005; 94640; 94667; 94668; 99283; J0885; J1756; J7040; A4216; G0257; J2405

== ENCOUNTER → 2018-12-25 07:19 | Outpatient (CLI) | payer SELFPAY ==
[2018-12-22 11:29] VITALS: BMI 26.1
[2018-12-25 07:26] LABS: Hemoglobin 7.4 g/dl (13.0-16.5)
== END ==
PROVIDERS: Referring Provider Internal Medicine Nephrology; Visit Provider Internal Medicine Nephrology
DX: R04.2 Hemoptysis (principal)
CPT/HCPCS: 85018

== ENCOUNTER 2018-12-25 11:07 | Emergency (ER) | payer BC, MEDICARE, SELFPAY ==
[2018-12-25] VITALS (10 sets, daily range): BP systolic 137–189; BP diastolic 58–67; PULSE 88–109; RESP 15–23; TEMP 37–37.8; O2SAT 73–100; BMI 26.1
--- NOTE | 2018-12-25 11:20 | RAD_ITS ---
STUDY: X-RAY CHEST REASON FOR EXAM: Male, 58 years old. Hemoptysis. TECHNIQUE: Single AP portable view of the chest. COMPARISON: Comparison is made with prior study dated December 14, 2018. FINDINGS: A right-sided dialysis catheter is seen with the tip at the junction of the superior vena cava and right atrium. There is diffuse bilateral airspace disease worse in the right lung. The differential diagnosis should include pulmonary hemorrhage or infection. There is no demonstrated pleural abnormality. Normal size heart. Normal mediastinum and kieran. Normal visualized pulmonary arteries. There is atherosclerotic calcification of the aortic arch with tortuosity. Normal visualized thoracic spine. Normal visualized ribs, clavicles, and shoulders. There is no demonstrated abnormality of the visualized soft tissue structures of the upper abdomen. RAD/Chest 1 View (Portable) IMPRESSION: Diffuse bilateral airspace disease worse in the right hemithorax. Electronically Signed: Godwin Palmer MD at 13:40 EST , Service support ,
--- NOTE | 2018-12-25 11:20 | EKG12_ITS ---
Test Reason : SOB Blood Pressure : / mmHG Vent. Rate : 089 BPM Atrial Rate : 089 BPM P-R Int : 136 ms QRS Dur : 078 ms QT Int : 406 ms P-R-T Axes : 055 012 069 degrees QTc Int : 493 ms Sinus rhythm with frequent Premature ventricular complexes Abnormal ECG Confirmed by WISAM COLON, GERARDO ([id number]), web content editor HARPAL REVELES ([id number] on 12/30/2018 8:35:12 AM Referred By: Vannessa Blakely Confirmed By:GERARDO JOEL MD
[2018-12-25 11:34] LABS: Absolute Lymphocyte Count 0.82 X10^3/ul (0.83-4.51); Absolute Neutrophil Count 16.2 X10^3/uL (2.0-7.7); Basophil# 0.04 X10^3/uL; Basophil% 0.2 % (0-1); Eosinophil# 0.08 X10^3/uL; Eosinophils% 0.4 % (0-5); Hematocrit 25.6 % (40-54); Hemoglobin 7.7 g/dl (13.0-16.5); Lymphocyte # 0.82 X10^3/ul (4.0); Lymphocyte % 4.5 % (19-41); Mean Corp Hgb Conc 30.1 g/gl (32-36); Mean Corpuscular Hgb 26.9 pg (27.0-32.0); Mean Corpuscular Volume 89.5 fL (80-94); Mean Platelet Vol. 8.6 fl (6.2-12.0); Monocyte# 0.91 X10^3/uL; Neutrophil # 16.21 X10^3/uL (2.7-7.7); Neutrophil % 89.7 % (47-70); Platelet Count 312 K/mm3 (150-450); RBC Distribution Width CV 16.4 % (11.6-14.6); RBC Distribution Width SD 53.9 fl (35.1-43.9); Red Blood Count 2.86 M/mm3 (4.6-6.2); White Blood Count 18.1 K/mm3 (4.4-11.0)
[2018-12-25] MEDS: Ipratropium/Albuterol Sulfate 3 ML AMPUL.NEB INHALATION (11:36)
[2018-12-25 11:38] LABS: POSITIVE COUNT NO; POSITIVE DIFFERENTIAL NO; POSITIVE MORPHOLOGY NO
--- NOTE | 2018-12-25 11:50 | ED.VISSUMM ---
- ER Visit Summary Date of Service: 12/25/18 Chief Complaint: [] Harsh cough hemoptysis low pulse ox renal failure just discharged for pneumonia History of Present Illness: The patient is a 58 M [] of diabetes and end-stage renal disease, indicates he was admitted for pneumonia, discharged yesterday he was doing well last night he began having more harsh coughing blood-tinged mucus, he would not complete his scheduled dialysis session for a full session had persistent coughing low pulse ox in the low 80s and he was sent to the emergency department, he is not known to require oxygen he has no known history of cardiopulmonary disease, indicates his renal failure is related to his diabetes his degreaser operator is Dr. Rodney he believes he has seen pulmonary in the past as he has had pneumonia multiple times, he has no history of LA or PE or DVT Physical Examination: [] he will pulse ox was in the 80s, on nonrebreather his pulse ox is 94%, he is coughing up blood-tinged mucus he is speaking in full sentences there is no signs of cardiopulmonary respiratory failure General, no distress resting comfortably HEENT is generally unremarkable he is coughing up blood-tinged mucus The neck is supple no adenopathy Cardiovascular, regular rate and rhythm Lungs, scattered rhonchi with wheezing in all areas, there is a dialysis catheter into the right chest Abdomen, soft nontender Extremities, no clubbing cyanosis or edema he has had prior dialysis fistulas in the left upper extremity he has what he describes as an early catheter that is not ready for use with a thrill left upper extremity the hands are well perfused neurologically he is awake alert answering questions appropriately moving all 4 extremities Test Results: [] Emergency Department Course and Treatment: [] Have a recent CTA that showed no PE rather signs of pneumonia he has been taking oral antibiotics he indicates the hemoptysis began before the dialysis treatment he did receive a full dialysis session given all the above will support his breathing aerosols screening labs chest x-ray we will asked the hospitalist to see him to admit and determine further management appropriate antibiotics Treatment Plan: [] The hospitalist and ICU team came to evaluate the patient they feel that given the nature of his condition, the hemoptysis and to optimize his care he should be transferred to a tertiary care center local tertiary centers were contacted they had no beds to accommodate the patient, we then spoke with [facility] and we are trying to arrange transfer to that facility,, [facility] indicates they do have a bed and they will be sending their [employer] helicopter team His blood gas returned with a pH of 7.55, PO2 on nonrebreather 50% given the potential for immediate and sudden deterioration I spoke with the patient his about intubation at this point time to support his respirations to help control the hemoptysis etc. was awake and alert in no distress a harsh cough the and patient asked questions I answered them and then they agreed Hyper oxygenation protocol, rapid sequence intubation using etomidate and succinylcholine and intubated without difficulty after blood was suctioned with a 7 ET tube, he was immediately bagged and oxygenated to a pulse ox of 96%, at this time he is being suctioned other therapies per ICU team blood gas on the vent is pending it is suggested to try to obtain a CTA prior to transfer and will try to arrange for that we will not delay his transfer for that procedure or for the results of the procedure Disposition: [] Admit to tertiary care center Impression: []hemoptysis, respiratory distress, recent pneumonia harsh cough end-stage renal disease diabetes This note was generated with [employer] dictation software. It may contain incorrect words, spelling, and punctuation that were not noted in review of the chart prior to signing ED Disposition - Plan for ED Patient: Referrals: Marques Caba MD [Primary Care Provider] -
[2018-12-25 11:52] LABS: Anion Gap 10 (5-15); BUN 21 mg/dL (7-18); BUN/Creat Ratio 5.6 RATIO (10-20); Chloride 95 mmol/L (98-107); Creatinine, Serum 3.72 mg/dL (0.70-1.30); EST Glomerular Filtration Rate 18 mL/min (>60); Est Glom Filt Rate - Afr Amer 22 mL/min (>60); Estimated Creatinine Clearance 22.89 ml/min; Glucose 101 mg/dL (74-106); Potassium 3.8 mmol/L (3.5-5.1); Sodium Level 135 mmol/L (136-145)
--- NOTE | 2018-12-25 11:53 | ED.DCSUM_ITS ---
- ER Visit Summary Date of Service: 12/25/18 Chief Complaint: [] Harsh cough hemoptysis low pulse ox renal failure just discharged for pneumonia History of Present Illness: The patient is a 58 M [] of diabetes and end-stage renal disease, indicates he was admitted for pneumonia, discharged yesterday he was doing well last night he began having more harsh coughing blood-tinged mucus, he would not complete his scheduled dialysis session for a full session had persistent coughing low pulse ox in the low 80s and he was sent to the emergency department, he is not known to require oxygen he has no known history of cardiopulmonary disease, indicates his renal failure is related to his diabetes his ct tech is Dr. Rodney he believes he has seen pulmonary in the past as he has had pneumonia multiple times, he has no history of ME or PE or DVT Physical Examination: [] he will pulse ox was in the 80s, on nonrebreather his pulse ox is 94%, he is coughing up blood-tinged mucus he is speaking in full sentences there is no signs of cardiopulmonary respiratory failure General, no distress resting comfortably HEENT is generally unremarkable he is coughing up blood-tinged mucus The neck is supple no adenopathy Cardiovascular, regular rate and rhythm Lungs, scattered rhonchi with wheezing in all areas, there is a dialysis catheter into the right chest Abdomen, soft nontender Extremities, no clubbing cyanosis or edema he has had prior dialysis fistulas in the left upper extremity he has what he describes as an early catheter that is not ready for use with a thrill left upper extremity the hands are well perfused neurologically he is awake alert answering questions appropriately moving all 4 extremities Test Results: [] Emergency Department Course and Treatment: [] Have a recent CTA that showed no PE rather signs of pneumonia he has been taking oral antibiotics he indicates the hemoptysis began before the dialysis treatment he did receive a full dialysis session given all the above will support his breathing aerosols screening labs chest x-ray we will asked the hospitalist to see him to admit and determine further management appropriate antibiotics Treatment Plan: [] The hospitalist and ICU team came to evaluate the patient they feel that given the nature of his condition, the hemoptysis and to optimize his care he should be transferred to a tertiary care center local tertiary centers were contacted they had no beds to accommodate the patient, we then spoke with [facility] and we are trying to arrange transfer to that facility,, [facility] indicates they do have a bed and they will be sending their [employer] helicopter team His blood gas returned with a pH of 7.55, PO2 on nonrebreather 50% given the potential for immediate and sudden deterioration I spoke with the patient his about intubation at this point time to support his respirations to help control the hemoptysis etc. was awake and alert in no distress a harsh cough the and patient asked questions I answered them and then they agreed Hyper oxygenation protocol, rapid sequence intubation using etomidate and succinylcholine and intubated without difficulty after blood was suctioned with a 7 ET tube, he was immediately bagged and oxygenated to a pulse ox of 96%, at this time he is being suctioned other therapies per ICU team blood gas on the vent is pending it is suggested to try to obtain a CTA prior to transfer and will try to arrange for that we will not delay his transfer for that procedure or for the results of the procedure Disposition: [] Admit to tertiary care center Impression: []hemoptysis, respiratory distress, recent pneumonia harsh cough end-stage renal disease diabetes This note was generated with [employer] dictation software. It may contain incorrect words, spelling, and punctuation that were not noted in review of the chart prior to signing ED Disposition - Plan for ED Patient: Referrals: Marques Caba MD [Primary Care Provider] -
--- NOTE | 2018-12-25 12:10 | NURSING ---
DR BRUMFIELD FOR DR JASSO
--- NOTE | 2018-12-25 12:12 | CT_ITS ---
STUDY: CTA CHEST REASON FOR EXAM: Male, 58 years old. Hypoxia. Hemoptysis. Patient is on dialysis. RADIATION DOSAGE (If Supplied By Facility): CTDIvol = ( 17.52 ) mGy, DLP = ( 632.11 ) mGycm TECHNIQUE: The examination was performed with the intravenous administration of 75 ml of Isovue 370 contrast material. Post-processing of the angiographic images was performed, with multiplanar reformation and 3D reconstruction. Individualized dose optimization techniques were used for this CT. COMPARISON: Comparison is made with prior study dated December 09, 2018. FINDINGS: Limited evaluation of the pulmonary arteries due to the extensive bilateral airspace disease. Normal enhancement of the main pulmonary artery and right and left pulmonary arteries. Normal enhancement of the bilateral peripheral pulmonary arteries. There is no demonstrated pulmonary embolism. Normal thoracic aorta and visualized great vessels. There is no demonstrated aortic dissection. Normal heart and pericardium. Normal mediastinum. Normal hilar regions. Normal visualized trachea and bronchi. The lungs are well expanded. Diffuse bilateral pulmonary consolidation. Normal pleura. Normal chest wall structures. There are degenerative changes of thoracic spine. Normal visualized upper abdomen. CT/CTA Chest W/WO Contrast IMPRESSION: Diffuse bilateral pulmonary consolidation. No obvious pulmonary embolism is seen at this time. Electronically Signed: Godwin Palmer MD at 13:44 EST , Service support ,
[2018-12-25 12:20] LABS: Base Excess 6 mmol/L (-2 to +2); Bicarbonate 28.6 mmol/L (22-26); Blood Gas Specimen Type ART; O2 Delivery Device NRB Mask; PO2 52 mmHG (75-100); SITE R Radial; SO2 91 % (95-99); Time Given 1210; Total Carbon Dioxide 30 mmol/L; pCO2 32.6 mmHg (35-45); pH 7.55 (7.35-7.45)
[2018-12-25] MEDS: Etomidate 20 MG/10 ML Vial IV (12:41)
[2018-12-25] MEDS: Succinylcholine Chloride 200 MG/10 ML Vial 100 MG IV (12:42)
--- NOTE | 2018-12-25 12:45 | RAD_ITS ---
STUDY: X-RAY CHEST REASON FOR EXAM: Male, 58 years old. Shortness of breath. TECHNIQUE: Single AP portable view of the chest. COMPARISON: Comparison is made with prior study done earlier in the day at 11:37 AM. FINDINGS: An endotracheal tube is in situ. The tip is at 4.6 cm proximal to the coty. Stable bilateral airspace disease worse in the right hemithorax. RAD/Chest 1 View (Portable) IMPRESSION: Stable examination. The tip of the endotracheal tube is at 4.6 cm proximal to the coty. Electronically Signed: Godwin Palmer MD at 13:42 EST , Service support ,
[2018-12-25] MEDS: Rocuronium Bromide 50 MG/5 ML Vial IV (12:56)
[2018-12-25] MEDS: Midazolam 2 MG/2 ML Syringe IV (12:56)
[2018-12-25] MEDS: Propofol 10MG/Ml 1,000 MG/100 ML Bottle 4.959 MG CONT INF (13:00)
--- NOTE | 2018-12-25 13:35 | PCM.PN.INT ---
Subjective: The patient is a 58-year-old male, known to me from a previous hospitalization, who presented to the ED with worsening shortness of breath, hypoxia and active hemoptysis. Of note, the patient is an end-stage renal patient on hemodialysis. The patient was just discharged from the hospital yesterday, after having been hospitalized for several days for musculoskeletal chest pain. Plain film chest imaging during that hospitalization was largely unremarkable. Prior to this, the patient was admitted for 1 day in mid November and treated for community-acquired pneumonia. The patient during his most recent hospitalization received Zosyn. At no point during either of the hospitalizations did the patient have positive culture data. The patient initially reported worsening in his respiratory symptoms last evening, which worsened over the course of the morning. The patient began to experience hemoptysis this morning. He does not require oxygen at his baseline. I was contacted by the patient's wire mesh gate assembler prior to his arrival to the hospital. I then received a call from the hospitalist asking me to evaluate the patient in the emergency department, as admission to the hospital had been requested. Upon my arrival to the emergency department, the patient was noted to be hypoxic on a nonrebreather. He was actively coughing up bright red blood. His chest x-ray went from being essentially normal on December 22 to now revealing diffuse bilateral airspace disease. After my evaluation of the patient, I recommended that he be immediately transferred to a tertiary care facility with interventional radiology capabilities, over concerns for potential diffuse alveolar hemorrhage and potential further clinical decompensation. I made these recommendations aware to the emergency department provider, along with my recommendation that the patient be electively intubated for airway protection. [facility] was subsequently contacted and agreed to accept the patient. Vital Signs Temp Pulse Resp BP Pulse Ox 37.0 C 88 15 137/58 H 100 12/25/18 11:52 12/25/18 12:29 12/25/18 13:02 12/25/18 12:29 12/25/18 12:29 Oxygen Flow Rate (L/min) 20 Oxygen Delivery Method Non-Rebreather Weight: 182 lb 3.2 oz Body Mass Index (BMI) 26.1 Labs (Last 48 Hours) 12/25/18 12/25/18 12/25/18 11:24 11:24 12:14 WBC 18.1 H RBC 2.86 L Hgb 7.7 L Hct 25.6 L MCV 89.5 MCH 26.9 L MCHC 30.1 L RDW 16.4 H RDW Differential 53.9 H Plt Count 312 MPV 8.6 Immature Gran % (Auto) 0.200 Neut % (Auto) 89.7 H Lymph % (Auto) 4.5 L Hubbard % (Auto) 5.0 Eos % (Auto) 0.4 Baso % (Auto) 0.2 Absolute Neuts (auto) 16.2 H Absolute Lymphs (auto) 0.82 L Total Counted Not Reportable Specimen Type ART Sample Site R Radial pH 7.55 H Bicarbonate Actual 28.6 H POC Total CO2 30 Base Excess 6 H O2 Saturation 91 L ABG pCO2 32.6 L ABG pO2 52 L O2 Delivery Device NRB Mask Liter Flow 15.0 Blood Gas Notified Whom ED Blood Gas Notified Time 1210 Sodium 135 L Potassium 3.8 Chloride 95 L Carbon Dioxide 30.0 Anion Gap 10 BUN 21 H Creatinine 3.72 H Estim Creat Clear Calc 22.89 Est GFR (MDRD) Af Amer 22 L Est GFR (MDRD) Non-Af 18 L BUN/Creatinine Ratio 5.6 L Glucose 101 Calcium 8.0 L Troponin I 0.061 H Medical Necessity - Tobacco Use Smoking Status: Never smoker Assessment/Plan All Active Problems (Last Updated 12/09/18 @ 16:06 by Nancie Wilkes MD) Hemoptysis (Acute) Hemoptysis (Acute) Diffuse pulmonary alveolar hemorrhage (Acute) Acute respiratory failure (Acute) Healthcare-associated pneumonia (Acute)
[2018-12-25] MEDS: Piperacil/Tazobactam 3.375 GM/50 ML ML IV (13:39)
--- NOTE | 2018-12-25 13:40 | CON.PCM_ITS ---
Problem List (1) Acute respiratory failure with hypoxia Status: Acute (2) Cough with hemoptysis Status: Acute (3) Healthcare-associated pneumonia Status: Acute (4) Anemia Status: Chronic Qualifiers: Anemia type: unspecified type Qualified Code(s): D64.9 - Anemia, unspecified (5) ESRD (end stage renal disease) Status: Chronic (6) DAVID (obstructive sleep apnea) Status: Chronic (7) Lymphadenopathy Status: Chronic (8) Hyperlipidemia Status: Chronic Qualifiers: Hyperlipidemia type: unspecified Qualified Code(s): E78.5 - Hyperlipidemia, unspecified (9) Hypothyroidism Status: Chronic Qualifiers: Hypothyroidism type: unspecified Qualified Code(s): E03.9 - Hypothyroidism, unspecified (10) Hypertension Status: Chronic Qualifiers: Hypertension type: essential hypertension Qualified Code(s): I10 - Essential (primary) hypertension (11) Type II diabetes mellitus Status: Chronic Qualifiers: Diabetes mellitus manager intermediate insulin use: without manager intermediate use Diabetes mellitus complication status: with unspecified complications Qualified Code(s): E11.8 - 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 unspecified complications Reason for Consult Date of Consultation: 12/25/18 Reason for Consultation: Evaluation for admission, Acute Respiratory Failure History of Present Illness: The patient is a 58 y/o M w/ PMHx: AOCD, DAVID, Diastolic CHF, History prior GI bleed, Chronic abdominal pain w/ adenopathy, Diabetes mellitus type II, HTN, HLD, Hypothyroidism, Chronic BL LE lymphedema, ESRD on HD TThSat w/ Dr. Blakely w/ R chest port w/ LUE fistula, Anxiety and Depression who presented to the [facility] ED on 12/22/18 with history of recent BL LL and UL PNA diagnosis discharged on 12/10/18, noted to have completed appropriate abx duration of levaquin completed the Saturday prior to presentation, who returned on 12/22/18 secondary ongoing pleuritic chest discomfort, primarily left sided, noted to be worse with inspiration, worse with coughing, unable to lay down secondary to discomfort over the last 2-3 days with re-admission, no oxygenation needs, maintained on ATC duonebs, PRN albuterol, maintained on IV Zosyn and Vancomycin-->Zosyn following Pulmonary evaluation with discharge on cefepime x 2 additional doses following each HD session as noted, IS parameters w/ requested sputum culture but not obtained as unable to give, negative urine antigens (still makes urine) and negative respiratory viral panel. Pleuritic pain improved w/ pain regimen and dramatically. Given prior presentation with discharge CBC with WBC 10.2 with resolved shift and return recently with CBC w/ WBC 21.2 in the 20s with notable left shift-->18.9 and eventual improvement w/ 12/24/18 CBC w/ WBC 8.3 with resolving L shift, discussed case with SACHA Castro as well as Dr. Prasad and decision for transition to cefepime 1 gm x 1 on day of discharge w/ repeat dosing cefepime 2 gm IV following Th and Sat HD sessions which was discussed with Dr. Blakely and arranged. Saadia discharged on 12/24/18; however, on evaluation for HR on 12/25/[address] Blakely was notable fatigued, hypoxic with ill appearance and she noted to Dr. Prasad possible hemoptysis. Dr. Prasad recommended patient be re-evaluated and noted need for repeat imaging. Patient was referred to the ED per Dr. Blakely. He was noted to have completed dialysis. Workup in the ED upon request for evaluation of patient included T 98.6, heart rate 90, BP 137/58, respiratory rate 20, initially 70-80s on nonrebreather, improved to 100% on nonrebreather, CBC with W BC 18.1, hemoglobin 7.7, platelet 312 with left shift, BMP with sodium 135, chloride 95, BUN/Cr 21/3.72, glucose 101, trop 0.061, chest x-ray with diffuse bilateral airspace disease worse in the right hemithorax. Given concerning history requested ED physician obtain ABG and noted that Dr. Prasad requested CTPA if this could be initiated in the ED. Noted to ED physician given patient respiratory status with recent discharge noted to be very stable and improved at that time, suddenly worsened and severe appearing per ED note would present to ED to evaluate patient immediately. Following discussion with ED physician, immediately contacted Dr. Prasad and met in the ED to evaluate patient. ABG obtained and results while completing evaluation with Dr. Prasad, noted ABG with pH 7.55, bicarb 28.6, PCO2 32.6, PO2 52. Upon evaluation of patient noted emesis bag with bright red copious amounts of blood. Patient admitted that he has been having bouts of hematemesis with initial episode starting at 2 AM on day of ED presentation and again at 4 AM with recurrence while in the ED. given the amount of blood Dr. Prasad immediately notify the ED physician that the patient would benefit from tertiary facility with IR transfer and recommended strongly that the patient be intubated for airway safety as possible alveolar hemorrhaging and possible future respiratory compromise. While in the ED attempting transfer to Tertiary Facility with Dr. Prasad per Dr. Rivera request, patient with worsening respiratory status, concern for airway protection with ongoing increased respiratory rate and desaturations despite nonrebreather with any activity, therefore discussed patient status with Dr. Prasad who recommended initiation of intubation. Succinylcholine and etomidate were administered. Attempted intubation in standard fashion with visualization of the vocal cords and attempted passage of the ETT; however, desaturated and concern for malpositioning; therefore re- attempt was to be re-initiated; however, at this time Dr. Rivera became available and took over intubation with eventual successful intubation w/ blade; however, despite appropriate placement via auscultation and color change, continued desaturation. Dr. Prasad present and assisted with aggressive ventilatory setting changes and patient ventilation improved. Post-intubation ABG resulted with pH 7.33, bicarb 32.6, PCO2 61, PO2 102 with vent settings AC, tidal volume 500, PEEP 12. Post-intubation, OG imaging obtained w/ noted ETT 4.6 cm proximal to the coty, worsened appearance. Once patient clinical stabilized per ED, sedated, CTPA obtained per Dr. Prasad recommendation w/ noted BL diffuse pulmonary consolidation without acute PE. Dr. Prasad contacted multiple facilities secondary to bed availability and patient transfer w/ life flight was arranged to [facility]. Past Medical History Past Medical History (Chronic Problems): Chronic Problems (This Medical Record has been edited. Action required.) End stage renal disease on dialysis (Chronic) Anemia (Chronic) ESRD (end stage renal disease) (Chronic) Problem with dialysis access (Chronic) DAVID (obstructive sleep apnea) (Chronic) Lymphadenopathy (Chronic) Hyperlipidemia (Chronic) Hypothyroidism (Chronic) Hypertension (Chronic) Type II diabetes mellitus (Chronic) Medical History: Medical History (This Medical Record has been edited. Action required.) Lymphadenopathy (Chronic) R59.1 Hyperlipidemia (Chronic) E78.5 Hypothyroidism (Chronic) E03.9 Hypertension (Chronic) I10 Type II diabetes mellitus (Chronic) E11.9 Allergies epoetin beta [From Mircera] Adverse Reaction (Verified 12/09/18 10:59) back pain Home Medications: Ambulatory Orders Medication Instructions Recorded Levothyroxine [Synthroid] 150 mcg PO QHS 10/28/15 Simvastatin [Zocor] 20 mg PO QHS 10/28/15 Citalopram Hydrobromide 40 mg PO QHS 01/03/18 [Citalopram HBr] Ergocalciferol [Vitamin D] 50,000 unit PO QMONTH 01/21/18 Amlodipine [Norvasc] 10 mg PO QHS 05/08/18 hydrALAZINE [Apresoline] 25 mg PO TID 05/08/18 Calcium Acetate 2 cap PO TIDCM 08/01/18 Yoko-Anna 0.8 mg PO QHS 08/01/18 Albuterol Aerosols [Ventolin 2.5 mg INHALATION Q2H PRN PRN #1 12/24/18 Aerosols] box Cefepime HCl [Maxipime] 2 gm IV X1 #2 vial 12/24/18 Guaifenesin [Mucinex] 1,200 mg PO BID #20 tablet 12/24/18 Ipratropium/Albuterol Sulfate 3 ml INHALATION Q6HWA.RT 10 Days 12/24/18 [Duoneb] #1 box Ketorolac [Toradol] 10 mg PO Q8H 2 Days #6 tablet 12/24/18 Nebulizer [Aeroneb Go Nebulizer] 1 ea UD #1 ea 12/24/18 Oxycodone [Oxyir] 5 - 10 mg PO Q4H PRN PRN 2 Days 12/24/18 #20 tablet Surgical History: Surgical History (This Medical Record has been edited. Action required.) H/O hernia repair Z98.890, Z87.19 Presence of surgically created arteriovenous shunt for hemodialysis Z99.2 LLE fistula-05/15/2018 S/P nasal surgery Z98.890 Surgical History: - - AV fistula with revision, hernia repair, chest port, nasal surgery. Smoking Status: Never smoker - *Family History Maternal Family History: Family History (This Medical Record has been edited. Action required.) Father No problems noted. History Items: Diabetes Paternal Family History: Family History (This Medical Record has been edited. Action required.) Father No problems noted. History Items: Stroke Review of Systems Constitutional: Reports: Anorexia, Malaise, Weakness, Fatigue. Denies: Chills, Fever, Weight Change HEENT: Denies: Head Aches, Sinus Congestion, Sinus Drainage Cardiovascular: Reports: Light Headedness. Denies: Chest Pain, Palpitations Respiratory: Reports: Cough, Hemoptysis, Shortness of Breath, Shortness of breath at rest, Shortness of breath upon exertion. Denies: Sputum production Gastrointestinal: Denies: Abdominal Pain, Nausea, Vomiting Genitourinary: Denies: Dysuria Musculoskeletal: Denies: Joint Pain, Joint Tenderness Skin: Denies: Rash, Wounds Neurological: Denies: Numbness, Tingling, Focal weakness Psychiatric: Reports: Anxiety, Depression. Denies: Homicidal Ideations, Suicidal Ideations Hematologic/ Lymphatic: Reports: Anemia. Denies: Easy Bruising, Easy Bleeding Patient Problems: Active and Suspected Problems (This Medical Record has been edited. Action required.) Acute respiratory failure (Acute) Diffuse pulmonary alveolar hemorrhage (Acute) Hemoptysis (Acute) Subjective: Seated upright in the ED bed, initial evaluation with evidence increased RR, some accessory muscle usage, emesis bag with notable amount of bright red blood with blood smeared around patient nares and mouth in addition. Status worsened while evaluating patient in the ED, notably hypoxia with minimal movement on NRB. Objective: Physical Examination: General: awake, alert, oriented x 3, remained cooperative, seated upright in the ED bed, increased RR, mild accessory muscle usage. Skin: normal color, turgor, no icterus, cyanosis. HEENT: AT/NC, EOMI, PERRLA, dry MM, blood from recent coughing bout smeared on he mouth and nare, no carotid bruits or JVD noted. Lungs: Diffusely BL diminished BS, coarse, increased work of breathing, mild accessory muscle usage noted, noted desaturation with any exertion. Heart: Mildly tachycardic with regular rhythm; no gallop, rub audible. Abdomen: soft, NTTP, ND, normal BS, no HSM. Extremities: no cyanosis, clubbing, or edema, AVF. Neurological: patient awake, alert, oriented x 3; cognitive function baseline intact despite presentation, eventual sedation; pupils equally reactive to light and accomodation; cranial nerves II-XII grossly normal, moving all 4 extremities, strength severely globally decreased secondary to acute presentation. Psychiatric: affect appears fatigued, no acute evidence of depressive or anxiety feelings. - Physical Exam Vital Signs Temp Pulse Resp BP Pulse Ox 98.6 F 88 15 137/58 H 100 12/25/18 11:52 12/25/18 12:29 12/25/18 13:02 12/25/18 12:29 12/25/18 12:29 Oxygen Flow Rate (L/min) 20 Oxygen Delivery Method Non-Rebreather Weight: 182 lb 3.2 oz Body Mass Index (BMI) 26.1 Laboratory Tests Past 24 Hrs 12/25/18 12/25/18 12/25/18 11:24 11:24 12:14 WBC 18.1 H RBC 2.86 L Hgb 7.7 L Hct 25.6 L MCV 89.5 MCH 26.9 L MCHC 30.1 L RDW 16.4 H RDW Differential 53.9 H Plt Count 312 MPV 8.6 Immature Gran % (Auto) 0.200 Neut % (Auto) 89.7 H Lymph % (Auto) 4.5 L Cuming % (Auto) 5.0 Eos % (Auto) 0.4 Baso % (Auto) 0.2 Absolute Neuts (auto) 16.2 H Absolute Lymphs (auto) 0.82 L Total Counted Not Reportable Specimen Type ART Sample Site R Radial pH 7.55 H Bicarbonate Actual 28.6 H POC Total CO2 30 Base Excess 6 H O2 Saturation 91 L ABG pCO2 32.6 L ABG pO2 52 L O2 Delivery Device NRB Mask Liter Flow 15.0 Blood Gas Notified Whom ED Blood Gas Notified Time 1210 Sodium 135 L Potassium 3.8 Chloride 95 L Carbon Dioxide 30.0 Anion Gap 10 BUN 21 H Creatinine 3.72 H Estim Creat Clear Calc 22.89 Est GFR (MDRD) Af Amer 22 L Est GFR (MDRD) Non-Af 18 L BUN/Creatinine Ratio 5.6 L Glucose 101 Calcium 8.0 L Troponin I 0.061 H Assessment/Plan All Active Problems (This Medical Record has been edited. Action required.) Acute respiratory failure with hypoxia (Acute) Cough with hemoptysis (Acute) Acute respiratory failure (Acute) Diffuse pulmonary alveolar hemorrhage (Acute) Hemoptysis (Acute) Hemoptysis (Acute) Healthcare-associated pneumonia (Acute) The patient is a 58 y/o M w/ PMHx: AOCD, DAVID, Diastolic CHF, History prior GI bleed, Chronic abdominal pain w/ adenopathy, Diabetes mellitus type II, HTN, HLD, Hypothyroidism, Chronic BL LE lymphedema, ESRD on HD TThSat w/ Dr. Blakely w/ R chest port w/ LUE fistula, Anxiety and Depression who presents to the [facility] ED on 12/25/18 per referral from his All Source Collection Manager following onset recurrent dyspnea starting the evening prior and episode of hemoptysis at 2 AM as well as 4 AM in addition to while in the ED, notable copious bright red blood, recently discharged on 12/24/18 following several day evaluation and treatment for PNA, well appearing at discharge, transitioned to cefepime x 2 additional doses with future HD planned. (1) Acute hypoxic respiratory failure with hemoptysis: Unclear specific etiology possible diffuse alveolar hemorrhage, ARDS, worsening HCAP, as noted ED work-up included T 98.6, heart rate 90, BP 137/58, respiratory rate 20, initially 70- 80s on nonrebreather, improved to 100% on nonrebreather, CBC with W BC 18.1, hemoglobin 7.7, platelet 312 with left shift, BMP with sodium 135, chloride 95, BUN/Cr 21/3.72, glucose 101, trop 0.061, chest x-ray with diffuse bilateral airspace disease worse in the right hemithorax. Given concerning history requested ED physician obtain ABG and noted that Dr. Prasad requested CTPA if this could be initiated in the ED. Noted to ED physician given patient respiratory status with recent discharge noted to be very stable and improved at that time, suddenly worsened and severe appearing per ED note would present to ED to evaluate patient immediately. Following discussion with ED physician, immediately contacted Dr. Prasad and met in the ED to evaluate patient. ABG obtained and results while completing evaluation with Dr. Prasad, noted ABG with pH 7.55, bicarb 28.6, PCO2 32.6, PO2 52. Patient clinically worsened, intubated in conjunction with ED staff per Dr. Prasad recommendation. Post-intubation ABG resulted with pH 7.33, bicarb 32.6, PCO2 61, PO2 102 with vent settings AC, tidal volume 500, PEEP 12. Post-intubation, OG imaging obtained w/ noted ETT 4.6 cm proximal to the coty, worsened appearance. Once patient clinical stabilized per ED, sedated, CTPA obtained per Dr. Prasad recommendation w/ noted BL diffuse pulmonary consolidation without acute PE. Dr. Prasad contacted multiple facilities secondary to bed availability and patient transfer w/ life flight was arranged to [facility]. Additional Co-morbidities: (1) Recent HCAP Pneumonia LLL: Recent 12/24/18 discharge with clinical improvement, CBC with WBC improvement, afebrile, transitioned to RA, pleuritic pain resolved, discharged with arrangement of cefepime with HD x 2. (2) ESRD: On HD, R chest port w/ maturing LUE fistula, HD T, TH, Sat, Dr. Blakely was contacted regarding patient deterioration and noted intention to evaluation patient in the ED prior to his transfer. HD completed 12/25/18. (3) History of Diabetes mellitus type II: Not on regimen, recent HgbA1c <3.5%. (4) AOCD: Presentation Hgb 7.7, recent discharge Hgb 7.7, despite onset notable hemoptysis. (5) Hypertension: Outpatient on Norvasc, Hydralazine. (6) Hyperlipidemia: Outpatient on statin regimen. (7) Hypothyroidism: Outpatient on synthroid regimen. (8) Chronic Diastolic CHF: ESRD history, on HD, not on ASA possible secondary to GI bleed history, not on GEE/ARB secondary to ESRD history, outpatient on hydralazine, statin therapy. (9) Anxiety and Depression: Outpatient on citalopram regimen. (10) Chew Tobacco Use: Recent admission w/ encourage cessation, RT consultation prior to his recent discharge. (11) History of GI bleed (12) DAVID noted to use CPAP q HS. Critical Care Time: 75 minutes, time from 12:10-1:25, were spent addressing patients respiratory failure, worsening status, hemoptysis, review of all data in collaboration with care team in addition to discussion with family. Code Visit Procedures: 52454 Prolonged InPt Service; first hour
--- NOTE | 2018-12-25 13:46 | CHAPLAIN ---
Type of Pastoral Visit _x__ Initial Visit ___ Follow-up Visit ___ On-call Visit ___ General Patient Visit ___ Spiritual Assessment ___ Family Conference ___ Bereavement ___ Rapid Response ___ Code Blue ___ Other (describe below) Pastoral Care Referral From ___ Patient ___ Family ___ Nurse ___ Physician ___ Horse Stud Manager ___ Grade Recorder _x__ Other (describe below) Sacrament/Intervention ___ Active listening ___ Anointing ___ Moravian ___ Bereavement ___ Communion ___ Aide exploration ___ ___ Life review _x__ Prayer ___ Reconciliation ___ Sacrament of Sick _x__ Supportive presence ___ Wedding ___ Other (describe below) Pastoral Comments Patient to be life flighted out; offered to support family members as they wait for transfer; family welcomes a prayer; family wishes for this drencher to contact their own chiseler head/mandaen and inform of transfer of patient; deed done
[2018-12-25 14:00] LABS: Base Excess 6 mmol/L (-2 to +2); Bicarbonate 32.2 mmol/L (22-26); Blood Gas Specimen Type ART; FI02 100; Mode A-C; O2 Delivery Device Vent; PEEP 12; PO2 102 mmHG (75-100); RR 14; SITE R Radial; SO2 97 % (95-99); Time Given 1352; Total Carbon Dioxide 34 mmol/L; Vt 500; pH 7.33 (7.35-7.45)
--- NOTE | 2018-12-25 14:15 | ED.RN ---
1241 Dr. Tom made the decision to intubate, verbal order was given to push the etomidate and succ's. Pt medicated per Dr. fraser, two respiratory therapists, Brynn and Aniya, bedside. Dr tom intubated with a 7.5 ET tube, poor color change. pt's spo2 dropping down into the 70's while ventilating. 1243 ET tube removed pt being given bag valve mask ventilations in attempt to elevate pt's spo2. [address]. otero bedside. dr. lange successfuly intubated pt with 7.5 et tube on 1st attempt. good color change, bilateral breath sounds, 26 cm at the lip. pt's spo2 not coming up as expected, tube pulled back to 23 cm at the lip. og and mullen placed.
== END 2018-12-25 14:16 | disposition short-term general hospital (02) ==
PROVIDERS: Emergency Provider Emergency Medicine; Family Provider Family Medicine; PCP Family Medicine
DX: R04.2 Hemoptysis (principal); R06.03 Acute respiratory distress; J18.9 Pneumonia, unspecified organism; E11.22 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 diabetic chronic kidney disease; N18.6 End stage renal disease; Z99.2 Dependence on renal dialysis; Z79.899 Other long term (current) drug therapy
CPT/HCPCS: 31500; 31720; 36600; 71045; 71275; 80048; 82803; 84484; 85025; 93005; 94002; 94640; 96365; 99251; 99285; J7030; J7050; Q9967; A4216; G0463

== ENCOUNTER → 2019-01-02 09:09 | Outpatient (CLI) | payer BC, SELFPAY ==
[2018-11-06 10:20] VITALS: BMI 25.7
[2018-12-25 11:08] VITALS: BMI 26.1
== END ==
PROVIDERS: Family Provider Family Medicine; PCP Family Medicine; Referring Provider Surgery; Visit Provider Surgery
DX: Z01.818 Encounter for other preprocedural examination (principal)

== ENCOUNTER 2019-01-19 20:27 | Emergency (ER) | payer BC, SELFPAY ==
[2018-12-25 11:08] VITALS: BMI 26.1
[2019-01-19] VITALS (8 sets, daily range): BP systolic 164–192; BP diastolic 62–81; PULSE 83–90; RESP 17–24; TEMP 36.8–37.1; O2SAT 92–97; BMI 29.0
--- NOTE | 2019-01-19 20:45 | EKG12_ITS ---
Test Reason : CP Blood Pressure : / mmHG Vent. Rate : 084 BPM Atrial Rate : 084 BPM P-R Int : 128 ms QRS Dur : 072 ms QT Int : 380 ms P-R-T Axes : 078 007 059 degrees QTc Int : 449 ms Normal sinus rhythm Normal ECG Confirmed by ANABELL COLON, SASHA ([id number]), editor sound DARREL SANTANA ([id number]) on 01/21/2019 10:08:07 AM Referred By: MARCO Confirmed By:SASHA HUNG MD
--- NOTE | 2019-01-19 20:45 | RAD_ITS ---
STUDY: X-RAY CHEST REASON FOR EXAM: Male, 58 years old. Cough and wheezing TECHNIQUE: PA and lateral COMPARISON: December 25, 2018 FINDINGS: There are diffuse bilateral perihilar interstitial infiltrates. There is no demonstrated pleural abnormality. Normal size heart. Normal mediastinum and kieran. Normal visualized pulmonary arteries. Normal visualized aortic arch and descending thoracic aorta. Central line is in place on the right with tip in distal superior vena cava. Dorsal spine demonstrates spondylosis Normal visualized ribs, clavicles, and shoulders. There is no demonstrated abnormality of the visualized soft tissue structures of the upper abdomen. There is improved aeration bilaterally since prior exam RAD/Chest PA and Lateral IMPRESSION: Persistent bilateral perihilar interstitial infiltrates with interval improvement Electronically Signed: Jarad Goodwin MD at 22:01 EST , Service support ,
[2019-01-19] MEDS: Albuterol 2.5 MG/3 ML VIAL.NEB. INHALATION ×3 (20:59→21:44)
[2019-01-19] MEDS: Ipratropium/Albuterol Sulfate 3 ML AMPUL.NEB INHALATION (20:59)
[2019-01-19 21:18] LABS: Absolute Lymphocyte Count 0.68 X10^3/ul (0.83-4.51); Absolute Neutrophil Count 20.2 X10^3/uL (2.0-7.7); Basophil# 0.02 X10^3/uL; Basophil% 0.1 % (0-1); Hematocrit 27.5 % (40-54); Hemoglobin 8.5 g/dl (13.0-16.5); Lymphocyte # 0.68 X10^3/ul (4.0); Lymphocyte % 3.1 % (19-41); Mean Corp Hgb Conc 30.9 g/gl (32-36); Mean Corpuscular Hgb 29.3 pg (27.0-32.0); Mean Corpuscular Volume 94.8 fL (80-94); Mean Platelet Vol. 9.5 fl (6.2-12.0); Monocyte# 0.97 X10^3/uL; Monocyte% 4.4 % (0-10); Neutrophil # 20.19 X10^3/uL (2.7-7.7); Neutrophil % 91.4 % (47-70); Platelet Count 230 K/mm3 (150-450); RBC Distribution Width CV 16.8 % (11.6-14.6); RBC Distribution Width SD 55.3 fl (35.1-43.9); White Blood Count 22.1 K/mm3 (4.4-11.0)
[2019-01-19 21:19] LABS: Anion Gap 13 (5-15); BUN 80 mg/dL (7-18); BUN/Creat Ratio 12.3 RATIO (10-20); Calcium,Total 8.1 mg/dL (8.5-10.1); Chloride 100 mmol/L (98-107); Creatinine, Serum 6.51 mg/dL (0.70-1.30); EST Glomerular Filtration Rate 9 mL/min (>60); Est Glom Filt Rate - Afr Amer 11 mL/min (>60); Estimated Creatinine Clearance 13.08 ml/min; Glucose 321 mg/dL (74-106); Potassium 4.9 mmol/L (3.5-5.1); Sodium Level 140 mmol/L (136-145)
[2019-01-19 21:20] LABS: Differential Indicated SCAN CRITERIA MET; POSITIVE COUNT NO; POSITIVE DIFFERENTIAL YES; POSITIVE MORPHOLOGY NO
[2019-01-19 21:52] LABS: Anisocytosis 1+; Differential Comment SCANNED; Platelet Estimate ADEQUATE (ADEQ)
[2019-01-19 21:53] LABS: Hypersegmented Neutrophils RARE; Ovalocyte RARE; Tear Drop Cell RARE
--- NOTE | 2019-01-19 23:21 | ED.RN ---
PT IS DIALYSIS PT. PT GOES , , . PT WITH SLEEP APNEA, SATTING LOW ON ROOM AIR. PT O2 ADJUSTED. PT AWAITING RE-EVAL PER DR. MARTIN.
--- NOTE | 2019-01-19 23:35 | ED.VIS.GEN ---
History of Present Illness Chief Complaint: Shortness of Breath Detail of Chief Complaint: Shortness of breath past several days Informant: Patient, Family Onset: Days - Days Context: Gradual Onset Timing: Continuous Quality: Shortness of breath at rest and increased with activity Location: Home Current Severity: Mild Maximum Severity: Moderate Worsened by: Activity Relieved by: Nothing Associated Symptoms: Increased swelling lower extremities Narrative: Patient middle-aged male who was transferred from [facility] to [facility] for evaluation of hemoptysis and bilateral infiltrates. He does have history of end-stage renal disease on hemodialysis Saturday, and Saturday. 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 He denies fever, chills night sweats. He denies weight gain or weight loss. He is on immunosuppressive meds and prednisone. He is presently taking 60 mg of prednisone. He does have history of asthma as a child. He is a non-smoker. Prior similar symptoms: Yes Recent Illness/Hospitalization: Yes Past Medical History - Allergies and Home Meds Allergies/Adverse Reactions: Allergies epoetin beta [From Mircera] Adverse Reaction (Verified 01/19/19 20:36) back pain Primary Care Physician: Marques Caba MD [Primary Care Provider] - Prior records reviewed: Yes Past Medical History: - - Type 2 diabetes, hypertension, hypercholesterolemia, end-stage renal disease, obstructive sleep apnea, hypothyroidism, depression, Surgical History: - - AV fistula with revision, hernia repair, chest port, nasal surgery. Lives: Spouse/ Significant Other Smoking Status: Never smoker Drugs: None - Family History Maternal Family History: Family History (This Medical Record has been edited. Action required.) Father No problems noted. Family History: Reports: Diabetes Paternal Family History: Family History (This Medical Record has been edited. Action required.) Father No problems noted. Family History: Reports: Stroke Review of Systems General: Reports: Malaise, Sweats. Denies: Chills, Fever, Subjective Eyes: Denies: Visual changes - bilaterally, Blurred Vision - bilaterally, Diplopia ENT: Denies: Bilateral ear pain, Rhinorrhea, Sore throat Cardiovascular: Denies: Chest pain, Palpitations Respiratory: Reports: Dyspnea, Cough, Dyspnea on exertion. Denies: Sputum, Orthopnea, Paroxysmal nocturnal dyspnea Gastrointestinal: Denies: Abdominal pain, Nausea, Vomiting, Diarrhea, Melena, Hematochezia Genitourinary: Denies: Dysuria, Hematuria, Frequency Musculoskeletal: Reports: Swelling - Lower extremities bilaterally. Denies: Back pain, Extremity Pain Skin: Denies: Rash Neurological: Reports: Weakness. Denies: Headache, Parasthesia Psych: Reports: Depression Hematologic: Denies: Easy bruising, Easy bleeding Physical Exam Vital Signs/Narrative: Vital Signs Temp Pulse Resp BP Pulse Ox 01/19/19 23:19 98.8 F 84 20 H 164/62 H 92 01/19/19 22:37 98.8 F 85 23 H 181/68 H 94 01/19/19 21:47 98.5 F 87 19 H 175/81 H 94 01/19/19 21:45 85 17 01/19/19 21:16 86 21 H 01/19/19 21:00 83 22 H 01/19/19 20:36 98.2 F 85 23 H 192/80 H 94 01/19/19 20:28 98.2 F 90 24 H 171/69 H 97 Inital Vital Signs reviewed: Yes General: Well nourished, Well developed, No Acute Distress, - Head: Normocephalic, Atraumatic Eyes: Perrl, EOMI, Pale conjunctiva. Negative for: Scleral icterus ENT: Moist mucous membranes, No rhinorrhea Neck: Supple Cardiovascular: Regular rate, Regular rhythm, No murmurs, Normal S1, Normal S2 Respiratory: Chest nontender, Rales, Diminished, Decreased Air Movement Abdomen: Soft, Nontender, Nondistended, Normal bowel sounds, No masses Rectal: Deferred Back: Nontender, Normal Inspection Extremities: Nontender, Edema. Negative for: Calf Tenderness Skin: No rash, Pallor. Negative for: Cyanosis, Jaundice Neurological: Alert, Oriented x3, Cranial nerves II-XII grossly intact, Normal Strength, Normal Sensation, Normal DTR Psychological: Normal affect, Normal Mood Diagnostic/Tx/Re-eval Chest X-Ray - ED: 2 View, Left Infiltrate, Right Effusion Patient's chest x-ray reveals bilateral infiltrates with improved from prior. This is secondary to his autoimmune disorder Gee's granulomatous disease.White count is 22.1 thousand with a hemoglobin 8.5. There are 91% segs no bands. Creatinine 6.51. Patient is on hemodialysis. He is scheduled for dialysis at [facility] tomorrow morning. EKG reveals a sinus rhythm rate of 84 and is normal - Rhythm Strip Rhythm Strip: Sinus Rhythm Rate: 77 Ectopy: None - EKG Initial EKG Interpretation: Sinus Rhythm - Ventricular rate is 84. NJ interval, Q anabaptism, QT interval and axis are normal. EKG is normal. - Medical Decision Making Since patient is hypoxic on immunosuppressive meds with abnormal x-ray findings will obtain chest x-ray, CBC, BMP and EKG. Since x-ray is improved from prior and and infiltrates are secondary to Gee's will contact supply company for O2 to be delivered to home. And follow-up with primary care physician. He also was instructed on use of MDI with spacer. He was discharged with albuterol solution for nebulizer but was not given a nebulizer. Differential includes pneumonia, exacerbation of his autoimmune disorder, bronchitis, CHF, pulmonary embolus is always in the consideration. ED Disposition - Plan for ED Patient: Disposition: Home or Assisted Living Referrals: Marques Caba MD [Primary Care Provider] - 3-5 Days Additional Instructions: You will need to wear oxygen continuously. You will need further testing to determine if you will need oxygen indefinitely. The cause of your low oxygen is secondary to Gee's. If you develop any increased shortness of breath, temperature greater than 100, shaking chills or begin to cough up blood return to the emergency department immediately.
--- NOTE | 2019-01-19 23:39 | ED.DCSUM_ITS ---
History of Present Illness Chief Complaint: Shortness of Breath Detail of Chief Complaint: Shortness of breath past several days Informant: Patient, Family Onset: Days - Days Context: Gradual Onset Timing: Continuous Quality: Shortness of breath at rest and increased with activity Location: Home Current Severity: Mild Maximum Severity: Moderate Worsened by: Activity Relieved by: Nothing Associated Symptoms: Increased swelling lower extremities Narrative: Patient middle-aged male who was transferred from [facility] to [facility] for evaluation of hemoptysis and bilateral infiltrates. He does have history of end-stage renal disease on hemodialysis Saturday, and Saturday. 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 He denies fever, chills night sweats. He denies weight gain or weight loss. He is on immunosuppressive meds and prednisone. He is presently taking 60 mg of prednisone. He does have history of asthma as a child. He is a non- smoker. Prior similar symptoms: Yes Recent Illness/Hospitalization: Yes Past Medical History - Allergies and Home Meds Allergies/Adverse Reactions: Allergies epoetin beta [From Mircera] Adverse Reaction (Verified 01/19/19 20:36) back pain Primary Care Physician: Marques Caba MD [Primary Care Provider] - Prior records reviewed: Yes Past Medical History: - - Type 2 diabetes, hypertension, hypercholesterolemia, end-stage renal disease, obstructive sleep apnea, hypothyroidism, depression, Surgical History: - - AV fistula with revision, hernia repair, chest port, nasal surgery. Lives: Spouse/ Significant Other Smoking Status: Never smoker Drugs: None - Family History Maternal Family History: Family History (This Medical Record has been edited. Action required.) Father No problems noted. Family History: Reports: Diabetes Paternal Family History: Family History (This Medical Record has been edited. Action required.) Father No problems noted. Family History: Reports: Stroke Review of Systems General: Reports: Malaise, Sweats. Denies: Chills, Fever, Subjective Eyes: Denies: Visual changes - bilaterally, Blurred Vision - bilaterally, Diplopia ENT: Denies: Bilateral ear pain, Rhinorrhea, Sore throat Cardiovascular: Denies: Chest pain, Palpitations Respiratory: Reports: Dyspnea, Cough, Dyspnea on exertion. Denies: Sputum, Orthopnea, Paroxysmal nocturnal dyspnea Gastrointestinal: Denies: Abdominal pain, Nausea, Vomiting, Diarrhea, Melena, Hematochezia Genitourinary: Denies: Dysuria, Hematuria, Frequency Musculoskeletal: Reports: Swelling - Lower extremities bilaterally. Denies: Back pain, Extremity Pain Skin: Denies: Rash Neurological: Reports: Weakness. Denies: Headache, Parasthesia Psych: Reports: Depression Hematologic: Denies: Easy bruising, Easy bleeding Physical Exam Vital Signs/Narrative: Vital Signs Temp Pulse Resp BP Pulse Ox 01/19/19 23:19 98.8 F 84 20 H 164/62 H 92 01/19/19 22:37 98.8 F 85 23 H 181/68 H 94 01/19/19 21:47 98.5 F 87 19 H 175/81 H 94 01/19/19 21:45 85 17 01/19/19 21:16 86 21 H 01/19/19 21:00 83 22 H 01/19/19 20:36 98.2 F 85 23 H 192/80 H 94 01/19/19 20:28 98.2 F 90 24 H 171/69 H 97 Inital Vital Signs reviewed: Yes General: Well nourished, Well developed, No Acute Distress, - Head: Normocephalic, Atraumatic Eyes: Perrl, EOMI, Pale conjunctiva. Negative for: Scleral icterus ENT: Moist mucous membranes, No rhinorrhea Neck: Supple Cardiovascular: Regular rate, Regular rhythm, No murmurs, Normal S1, Normal S2 Respiratory: Chest nontender, Rales, Diminished, Decreased Air Movement Abdomen: Soft, Nontender, Nondistended, Normal bowel sounds, No masses Rectal: Deferred Back: Nontender, Normal Inspection Extremities: Nontender, Edema. Negative for: Calf Tenderness Skin: No rash, Pallor. Negative for: Cyanosis, Jaundice Neurological: Alert, Oriented x3, Cranial nerves II-XII grossly intact, Normal Strength, Normal Sensation, Normal DTR Psychological: Normal affect, Normal Mood Diagnostic/Tx/Re-eval Chest X-Ray - ED: 2 View, Left Infiltrate, Right Effusion Patient's chest x-ray reveals bilateral infiltrates with improved from prior. This is secondary to his autoimmune disorder Gee's granulomatous disease.White count is 22.1 thousand with a hemoglobin 8.5. There are 91% segs no bands. Creatinine 6.51. Patient is on hemodialysis. He is scheduled for dialysis at [facility] tomorrow morning. EKG reveals a sinus rhythm rate of 84 and is normal - Rhythm Strip Rhythm Strip: Sinus Rhythm Rate: 77 Ectopy: None - EKG Initial EKG Interpretation: Sinus Rhythm - Ventricular rate is 84. CA interval, Q druze, QT interval and axis are normal. EKG is normal. - Medical Decision Making Since patient is hypoxic on immunosuppressive meds with abnormal x-ray findings will obtain chest x-ray, CBC, BMP and EKG. Since x-ray is improved from prior and and infiltrates are secondary to Gee's will contact supply company for O2 to be delivered to home. And follow-up with primary care physician. He also was instructed on use of MDI with spacer. He was discharged with albuterol solution for nebulizer but was not given a nebulizer. Differential includes pneumonia, exacerbation of his autoimmune disorder, bronchitis, CHF, pulmonary embolus is always in the consideration. ED Disposition - Plan for ED Patient: Disposition: Home or Assisted Living Referrals: Marques Caba MD [Primary Care Provider] - 3-5 Days Additional Instructions: You will need to wear oxygen continuously. You will need further testing to determine if you will need oxygen indefinitely. The cause of your low oxygen is secondary to Gee's. If you develop any increased shortness of breath, temperature greater than 100, shaking chills or begin to cough up blood return to the emergency department immediately.
--- NOTE | 2019-01-19 23:44 | ED.RN ---
henrique contacted for home oxygen use
[2019-01-20 00:10] VITALS: BP 170/78; PULSE 89; RESP 23; O2SAT 94
--- NOTE | 2019-01-20 00:48 | ED.RN ---
PRIYANKA PRESENTS TO ED WITH OXYGEN TANK. PT INSTRUCTED ON USE BY RESPRESENTATIVE. PT VERBALIZES NO FURTHER QUESTIONS. PT PLACED ON PORTAL O2 AND ASSISTED WITH GETTING DRESSES BY THIS RN. IV D/C AND COVERED WITH 2X2 GAUZE AND PAPER TAPE. PT AMBULATES OUT OF DEPT WITH .
[2019-01-21 10:17] LABS: Pathologist Review Reviewed
== END 2019-01-20 00:49 | disposition home or self-care (01) ==
PROVIDERS: Emergency Provider Emergency Medicine; Family Provider Family Medicine; PCP Family Medicine
DX: A50.02 Early congenital syphilitic osteochondropathy (principal); I12.0 Hypertensive chronic kidney disease with stage 5 chronic kidney disease or end stage renal disease; E11.22 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 diabetic chronic kidney disease; N18.6 End stage renal disease; E78.00 Pure hypercholesterolemia, unspecified; E03.9 Hypothyroidism, unspecified; F32.9 Major depressive disorder, single episode, unspecified; Z99.2 Dependence on renal dialysis; Z79.899 Other long term (current) drug therapy
CPT/HCPCS: 71046; 80048; 85025; 93005; 94640; 94664; 99284; A4216

== ENCOUNTER 2019-02-04 16:13 | Emergency (ER) | payer BC, SELFPAY ==
[2019-01-27 13:23] VITALS: BMI 27.5
[2019-02-04] VITALS (15 sets, daily range): BP systolic 141–192; BP diastolic 67–88; PULSE 71–110; RESP 12–33; TEMP 37–37.8; O2SAT 88–99; BMI 28.3; BMI 28.4
--- NOTE | 2019-02-04 17:08 | EKG12_ITS ---
Test Reason : Blood Pressure : / mmHG Vent. Rate : 107 BPM Atrial Rate : 107 BPM P-R Int : 140 ms QRS Dur : 074 ms QT Int : 350 ms P-R-T Axes : 075 019 063 degrees QTc Int : 467 ms Sinus tachycardia Otherwise normal ECG Confirmed by GERARDO JOEL MD ([id number]), story editor HARPAL REVELES ([id number]) on 02/06/2019 8:04:38 AM Referred By: SABINO Confirmed By:GERARDO JOEL MD
--- NOTE | 2019-02-04 17:08 | RAD_ITS ---
STUDY: X-RAY CHEST REASON FOR EXAM: Male, 58 years old. Dyspnea. TECHNIQUE: Single AP portable view of the chest. COMPARISON: Prior exam of January 19, 2019, December 25, 2018, and December 22, 2018 FINDINGS: Multilumen right subclavian catheter ends in the distal superior vena cava. Continued diffuse interstitial edema which is similar on the left side but increased on the right side from prior exam. Small left pleural effusion. Stable cardiac size. Normal mediastinum and kieran. Pulmonary venous congestion. Normal visualized aortic arch and descending thoracic aorta. Normal visualized thoracic spine. Normal visualized ribs, clavicles, and shoulders. There is no demonstrated abnormality of the visualized soft tissue structures of the upper abdomen. RAD/Chest 1 View (Portable) IMPRESSION: Continued bilateral pulmonary edema similar on the left to the prior exam but increased on the right and now with a small left pleural effusion. Stable cardiac size. Multilumen right subclavian venous catheter ends in the distal superior vena cava. Electronically Signed: Grace Thompson MD at 17:31 EDT , Service support ,
--- NOTE | 2019-02-04 17:13 | ED.DCSUM_ITS ---
- ER Visit Summary Date of Service: 02/04/19 Chief Complaint: Shortness of breath History of Present Illness: The patient is a 58 M presenting with shortness of breath. He states this started around noon today. He has had a productive cough. He has a fever. He denies chest pain. He states he completed dialysis today but was supposed to have more fluid withdrawn today. He believes he has fluid overload secondary to his Gee's disease. EMS was called due to shortness of breath and tachypnea. His pulse ox was 78% on room air when they arrived. Physical Examination: Blood pressure 192/84, temperature 100.1, heart rate 109, respiratory rate 30, pulse ox 97% on nonrebreather. alert mild acute distress. HEENT exam is unremarkable. Neck is supple. Lungs are diminished bilaterally. Heart is regular and tachycardic. Abdomen is soft nontender nondistended. Extremities are unremarkable. Skin is warm and dry. No focal neurologic deficit. Remainder of exam is unremarkable. Emergency Department Course and Treatment: Patient was given Tylenol. He was started on BiPAP. Chest x-ray shows continued bilateral pulmonary edema similar on the left to the prior exam but increased on the right and now with a small left pleural effusion. Stable cardiac size. Multilumen right subclavian venous catheter ends in the distal superior vena cava. CBC shows white count 12.0, hemoglobin 11.0, platelet 138. Chemistries show potassium 5.2, glucose 146, BUN 57, creatinine 5.22. Troponin 0.505. Blood cultures were sent. Influenza is negative. EKG sinus tachycardia rate of 107. Discussed with Dr. Tom who also discussed with Dr. Prasad who knows the patient well. Recommend transfer to tertiary care center. Patient was recently admitted to [facility] for 3 weeks. Patient is agreeable with this plan. He is much improved on BiPAP. Discussed with [facility] for transfer. Disposition: Transfer to [facility] Impression: Pulmonary edema, history of Gee's This note was generated with [employer] dictation software. It may contain incorrect words, spelling, and punctuation that were not noted in review of the chart prior to signing ED Disposition - Plan for ED Patient: Referrals: Marques Caba MD [Primary Care Provider] -
[2019-02-04] MEDS: Acetaminophen 500 MG Tablet 1000 MG PO (17:40)
[2019-02-04 17:48] LABS: Absolute Lymphocyte Count 0.38 X10^3/ul (0.83-4.51); Absolute Neutrophil Count 10.7 X10^3/uL (2.0-7.7); Basophil# 0.02 X10^3/uL; Basophil% 0.2 % (0-1); Eosinophil# 0.08 X10^3/uL; Eosinophils% 0.7 % (0-5); Hematocrit 36.8 % (40-54); Lymphocyte # 0.38 X10^3/ul (4.0); Lymphocyte % 3.2 % (19-41); Mean Corp Hgb Conc 29.9 g/gl (32-36); Mean Corpuscular Hgb 31.2 pg (27.0-32.0); Mean Corpuscular Volume 104.2 fL (80-94); Mean Platelet Vol. 9.4 fl (6.2-12.0); Monocyte# 0.67 X10^3/uL; Monocyte% 5.6 % (0-10); Neutrophil # 10.66 X10^3/uL (2.7-7.7); Neutrophil % 88.5 % (47-70); Platelet Count 138 K/mm3 (150-450); RBC Distribution Width SD 83.2 fl (35.1-43.9); Red Blood Count 3.53 M/mm3 (4.6-6.2)
[2019-02-04 17:50] LABS: Differential Indicated SCAN CRITERIA MET; POSITIVE COUNT NO; POSITIVE DIFFERENTIAL YES; POSITIVE MORPHOLOGY YES
[2019-02-04 18:01] LABS: Anion Gap 10 (5-15); BUN 57 mg/dL (7-18); BUN/Creat Ratio 10.9 RATIO (10-20); Calcium,Total 7.4 mg/dL (8.5-10.1); Chloride 102 mmol/L (98-107); Creatinine, Serum 5.22 mg/dL (0.70-1.30); EST Glomerular Filtration Rate 12 mL/min (>60); Est Glom Filt Rate - Afr Amer 15 mL/min (>60); Estimated Creatinine Clearance 16.32 ml/min; Glucose 146 mg/dL (74-106); Potassium 5.2 mmol/L (3.5-5.1); Sodium Level 139 mmol/L (136-145)
[2019-02-04 18:14] LABS: Lactic Acid 1.4 mmol/L (0.4-2.0)
--- NOTE | 2019-02-04 19:47 | CPS ---
SWITCHED PT TO [facility]AL [facility] AT HIS REQUEST, THAT IS WHAT HE WEARS AT HOME.
[2019-02-04 20:26] LABS: Allen Test POS; Base Excess 4 mmol/L (-2 to +2); Bicarbonate 26.6 mmol/L (22-26); Blood Gas Specimen Type ART; EPAP 8; FI02 40; IPAP 12; PO2 101 mmHG (75-100); RR 12; SITE R Radial; SO2 99 % (95-99); Time Given 2015; Total Carbon Dioxide 28 mmol/L; pCO2 31.7 mmHg (35-45); pH 7.53 (7.35-7.45)
== END 2019-02-04 23:53 | disposition short-term general hospital (02) ==
LOC: ED 17:12
PROVIDERS: Emergency Provider Emergency Medicine; Family Provider Family Medicine; PCP Family Medicine
DX: J81.1 Chronic pulmonary edema (principal); M31.31 Wegener's granulomatosis with renal involvement; N18.6 End stage renal disease; Z79.899 Other long term (current) drug therapy
CPT/HCPCS: 36600; 71045; 80048; 82803; 83605; 84484; 85025; 87040; 87804; 93005; 94002; 99285; A4216

== ENCOUNTER 2019-02-11 09:29 | Emergency (ER) | payer BC, MEDICARE, SELFPAY ==
[2019-02-04 16:14] VITALS: BMI 28.3
[2019-02-11] VITALS (8 sets, daily range): BP systolic 146–236; BP diastolic 67–99; PULSE 93–118; RESP 14–42; TEMP 36.4; O2SAT 96–100; BMI 29.0
--- NOTE | 2019-02-11 09:36 | RAD_ITS ---
STUDY: X-RAY CHEST REASON FOR EXAM: Male, 58 years old. Dyspnea TECHNIQUE: Single AP portable view of the chest. COMPARISON: February 04, 2019 FINDINGS: Stable right subclavian central venous catheter with tip in the mid SVC. Unchanged diffuse patchy airspace disease and interstitial edema. Remainder is unchanged RAD/Chest 1 View (Portable) IMPRESSION: No significant change from recent prior exam. Continued diffuse pulmonary edema Electronically Signed: Alex Nettles DO at 10:46 EDT Tel , Service support ,
--- NOTE | 2019-02-11 09:36 | EKG12_ITS ---
Test Reason : RESPIRATORY DISTRESS Blood Pressure : / mmHG Vent. Rate : 117 BPM Atrial Rate : 117 BPM P-R Int : 136 ms QRS Dur : 070 ms QT Int : 320 ms P-R-T Axes : 078 025 080 degrees QTc Int : 446 ms Sinus tachycardia with Premature atrial complexes Nonspecific ST abnormality Abnormal ECG Confirmed by WISAM COLON, GERARDO ([id number]), newspaper photo editor JAVIER DE LA PAZ ([id number]) on 02/13/2019 9:27:06 AM Referred By: RACHID Confirmed By:GERARDO JOEL MD
[2019-02-11] MEDS: Ipratropium/Albuterol Sulfate 3 ML AMPUL.NEB INHALATION (09:45)
[2019-02-11] MEDS: Ondansetron 4 MG/2 ML Vial IV (09:51)
[2019-02-11] MEDS: Nitroglycerin Oint 1 INCH PACKET 2 INCH TRANSDERM. (09:52)
[2019-02-11] MEDS: Morphine 4 MG/ML Syringe IV (09:53)
[2019-02-11] MEDS: Furosemide 100 MG/10 ML Vial 80 MG IV (09:53)
[2019-02-11 09:57] LABS: Absolute Lymphocyte Count 1.37 X10^3/ul (0.83-4.51); Absolute Neutrophil Count 12.4 X10^3/uL (2.0-7.7); Basophil# 0.04 X10^3/uL; Eosinophil# 0.03 X10^3/uL; Hematocrit 37.5 % (40-54); Hemoglobin 11.3 g/dl (13.0-16.5); Lymphocyte # 1.37 X10^3/ul (4.0); Mean Corp Hgb Conc 30.1 g/gl (32-36); Mean Corpuscular Hgb 31.1 pg (27.0-32.0); Mean Corpuscular Volume 103.3 fL (80-94); Mean Platelet Vol. 9.1 fl (6.2-12.0); Monocyte# 1.07 X10^3/uL; Neutrophil # 12.44 X10^3/uL (2.7-7.7); Platelet Count 222 K/mm3 (150-450); RBC Distribution Width CV 20.7 % (11.6-14.6); RBC Distribution Width SD 77.5 fl (35.1-43.9); Red Blood Count 3.63 M/mm3 (4.6-6.2); White Blood Count 15.5 K/mm3 (4.4-11.0)
[2019-02-11 09:59] LABS: Differential Indicated SCAN CRITERIA MET; POSITIVE COUNT YES; POSITIVE DIFFERENTIAL NO; POSITIVE MORPHOLOGY YES
[2019-02-11 10:12] LABS: Anion Gap 9 (5-15); BUN 48 mg/dL (7-18); BUN/Creat Ratio 10.2 RATIO (10-20); Calcium,Total 7.8 mg/dL (8.5-10.1); Chloride 103 mmol/L (98-107); Creatinine, Serum 4.69 mg/dL (0.70-1.30); EST Glomerular Filtration Rate 14 mL/min (>60); Est Glom Filt Rate - Afr Amer 17 mL/min (>60); Estimated Creatinine Clearance 18.16 ml/min; Glucose 128 mg/dL (74-106); Potassium 4.6 mmol/L (3.5-5.1); Sodium Level 141 mmol/L (136-145)
--- NOTE | 2019-02-11 10:14 | ED.VISSUMM ---
- ER Visit Summary Date of Service: 02/11/19 Chief Complaint: [Dyspnea] History of Present Illness: The patient is a 58 M [presents the emergency department complaint of shortness of breath that started last evening. Patient had a dry cough. He denies any chest pain. Patient is a dialysis patient and last was at dialysis yesterday for a full session. Patient has a history of CHF as well as Gee's granulomatosis and history of respiratory failure. He is unsure about weight gain. Denies any fevers.] Physical Examination: [HEENT-PERRLA, EOMI. Cranial nerves II through XII grossly intact. TMs clear. Mucous membranes moist. No adenopathy. Patient has JVD. Cardiovascular-regular and tachycardic with a 2 out of 6 systolic ejection murmur Lungs-diminished bilaterally right greater than left. Patient has rales in both lungs penitentiary up with occasional rhonchi and faint expiratory wheezes. Patient is tachypneic. Patient has accessory muscle use. Abdomen-normoactive bowel sounds, soft, nontender, no rebound or rigidity, no peritoneal signs. Extremities-intact ?4, normal range of motion, normal pulses, atraumatic. +1 edema both lower extremities and symmetric.] Test Results: [EKG obtained arrival showed a sinus tachycardia with a ventricular rate of 117 bpm with some nonspecific ST changes. CBC with differential showed a white count of 15.5, hemoglobin 11, hematocrit 37, placed 222. Chemistries unremarkable. BUN was 48 and creatinine 4.69. Troponin was slightly elevated 0.128 but is down from prior troponin of 0.5. Chest x-ray showed CHF. ABG obtained showed pH of 7.328, CO2 of 51. PaO2 of 87 bicarb of 27 and he was satting 96% on 60% FiO2. Patient ABG was performed on BiPAP of 16 and 8.] Emergency Department Course and Treatment: [Patient was given Lasix 80 mg IV as well as morphine 4 mg IV, Zofran 4 mg IV, and 2 inches of Nitropaste applied to the chest wall.] Treatment Plan: Admit admit [as patient may require urgent dialysis.] Disposition: [] Impression: [CHF Hypoxemia Acute respiratory failure] This note was generated with [employer] dictation software. It may contain incorrect words, spelling, and punctuation that were not noted in review of the chart prior to signing ED Disposition - Plan for ED Patient: Referrals: Marques Caba MD [Primary Care Provider] -
--- NOTE | 2019-02-11 10:19 | ED.DCSUM_ITS ---
- ER Visit Summary Date of Service: 02/11/19 Chief Complaint: [Dyspnea] History of Present Illness: The patient is a 58 M [presents the emergency department complaint of shortness of breath that started last evening. Patient had a dry cough. He denies any chest pain. Patient is a dialysis patient and last was at dialysis yesterday for a full session. Patient has a history of CHF as well as Gee's granulomatosis and history of respiratory failure. He is unsure about weight gain. Denies any fevers.] Physical Examination: [HEENT-PERRLA, EOMI. Cranial nerves II through XII grossly intact. TMs clear. Mucous membranes moist. No adenopathy. Patient has JVD. Cardiovascular-regular and tachycardic with a 2 out of 6 systolic ejection murmur Lungs-diminished bilaterally right greater than left. Patient has rales in both lungs longterm up with occasional rhonchi and faint expiratory wheezes. Patient is tachypneic. Patient has accessory muscle use. Abdomen-normoactive bowel sounds, soft, nontender, no rebound or rigidity, no peritoneal signs. Extremities-intact ?4, normal range of motion, normal pulses, atraumatic. +1 edema both lower extremities and symmetric.] Test Results: [EKG obtained arrival showed a sinus tachycardia with a ventr icular rate of 117 bpm with some nonspecific ST changes. CBC with differential showed a white count of 15.5, hemoglobin 11, hematocrit 37, placed 222. Chemistries unremarkable. BUN was 48 and creatinine 4.69. Troponin was slightly elevated 0.128 but is down from prior troponin of 0.5. Chest x-ray showed CHF. ABG obtained showed pH of 7.328, CO2 of 51. PaO2 of 87 bicarb of 27 and he was satting 96% on 60% FiO2. Patient ABG was performed on BiPAP of 16 and 8.] Emergency Department Course and Treatment: [Patient was given Lasix 80 mg IV as well as morphine 4 mg IV, Zofran 4 mg IV, and 2 inches of Nitropaste applied to the chest wall.] Treatment Plan: Admit admit [as patient may require urgent dialysis.] Disposition: [] Impression: [CHF Hypoxemia Acute respiratory failure] This note was generated with [employer] software. It may contain incorrect words, spelling, and punctuation that were not noted in review of the chart prior to signing ED Disposition - Plan for ED Patient: Referrals: Marques Caba MD [Primary Care Provider] -
[2019-02-11 10:21] LABS: Allen Test POS; Base Excess 1 mmol/L (-2 to +2); Bicarbonate 26.8 mmol/L (22-26); Blood Gas Specimen Type ART; EPAP 8; FI02 60; IPAP 16; PO2 87 mmHG (75-100); RR 14; SITE R Radial; SO2 96 % (95-99); Time Given 1000; Total Carbon Dioxide 28 mmol/L; pCO2 51.1 mmHg (35-45); pH 7.33 (7.35-7.45)
[2019-02-11 10:26] LABS: Anisocytosis 1+; Hypochromasia 1+; Lymphocyte 6 % (19-41); Metamyelocyte 2 % (0-1); Monocyte 2 % (0-10); Neutrophil-Segmented 90 % (47-70)
[2019-02-11 10:27] LABS: Platelet Estimate ADEQUATE (ADEQ); Scan Smear per Review Criteria MANUAL DIFF
--- NOTE | 2019-02-11 10:42 | ED.DCSUM_ITS ---
- ER Visit Summary Date of Service: 02/11/19 Chief Complaint: [Addendum to initial dictation] History of Present Illness: The patient is a 58 M ] Physical Examination: [] Test Results: [] Emergency Department Course and Treatment: [] Treatment Plan: [After discussing case with hospitalist who then discussed case with amphibian crewmember as well as patient's call box wirer I was asked to transfer patient to [facility] where patient had a recent visit. Patient apparently is difficult to dialyze and remove fluid from as he has been relatively intolerant. I discussed case with [facility] who accepted transfer patient] Disposition: [Transfer to [facility]] Impression: [CHF Respiratory failure Hypoxemia End-stage renal disease] This note was generated with [employer] dictation software. It may contain incorrect words, spelling, and punctuation that were not noted in review of the chart prior to signing ED Disposition - Plan for ED Patient: Referrals: Marques Caba MD [Primary Care Provider] -
[2019-02-11 10:52] LABS: Lactic Acid 2.8 mmol/L (0.4-2.0)
--- NOTE | 2019-02-11 10:52 | ED.RN ---
lactic acid 2.[address] the lab. dr elder aware
--- NOTE | 2019-02-11 11:18 | CASEMGMT ---
S/w Johnna from ER Registration and clarified patient has [employer] as Primary Insurance and Medicare A& B as Secondary Insurance. According to [employer] [id number] website, ,patient can be transferred to the following: [facility], [facility], [facility], [facility], , [facility], [facility], [place]. Bharath Sims RNCM
[2019-02-11 13:49] LABS: Reflex Lactate? Y
[2019-02-12 10:09] LABS: Pathologist Review Reviewed
== END 2019-02-11 12:19 | disposition short-term general hospital (02) ==
PROVIDERS: Emergency Provider Emergency Medicine; Family Provider Family Medicine; PCP Family Medicine
DX: I50.9 Heart failure, unspecified (principal); J96.01 Acute respiratory failure with hypoxia; N18.6 End stage renal disease; Z99.2 Dependence on renal dialysis; Z79.899 Other long term (current) drug therapy
CPT/HCPCS: 36600; 71045; 80048; 82803; 83605; 83880; 84484; 85025; 93005; 94002; 94640; 96374; 96375; 99285; A4216; J1940; J2405

== ENCOUNTER 2019-03-03 12:00 | Outpatient (RCR) | payer BC, MEDICARE, SELFPAY ==
[2018-12-25 11:08] VITALS: BMI 26.1
[2019-02-11 09:30] VITALS: BMI 29.0
== END 2019-03-03 19:00 | disposition home or self-care (01) ==
LOC: PT 12:00
PROVIDERS: Family Provider Family Medicine; PCP Family Medicine
DX: N18.6 End stage renal disease (principal); Z99.2 Dependence on renal dialysis
CPT/HCPCS: 97110; 97161

== ENCOUNTER → 2019-03-16 06:50 | Outpatient (CLI) | payer BC, MEDICARE, SELFPAY ==
[2019-02-20 11:34] VITALS: BMI 29.0
--- NOTE | 2019-03-16 12:57 | PFT ---
INTRODUCTION: The patient is a 58-year-old male that presents for pulmonary function studies secondary to a diagnosis of follow-up. Respiratory therapy reports good patient effort. Bronchodilators were used during testing. INTERPRETATION: Forced expiration spirometry demonstrates no evidence of a large airways obstructive ventilatory defect. There was no significant response to aerosolized bronchodilators. Spirograms are of good quality and plateau normally. The respiratory flow volume loop appears normal. Body plethysmography was performed and reveals lung volumes to be within normal limits. Diffusing capacity by single breath CO is at the lower limits of normal at 70% of predicted. IMPRESSION: Normal spirometry and lung volumes. Diffusing capacity is at the lower limits of normal. There are no previous pulmonary function studies available for comparison.
== END ==
PROVIDERS: Family Provider Family Medicine; PCP Family Medicine
DX: M31.31 Wegener's granulomatosis with renal involvement (principal)
CPT/HCPCS: 94060; 94726; 94729

== ENCOUNTER → 2019-03-18 08:17 | Outpatient (CLI) | payer BC, MEDICARE, SELFPAY ==
[2019-02-20 11:34] VITALS: BMI 29.0
--- NOTE | 2019-03-18 08:19 | CT_ITS ---
STUDY: CT CHEST WITHOUT CONTRAST REASON FOR EXAM: Male, 58 years old. Worsening chest pain, shortness of breath and cough RADIATION DOSAGE (If Supplied By Facility): CTDIvol = ( 19.21 ) mGy, DLP = ( 792.24 ) mGycm TECHNIQUE: Transaxial imaging was performed without the administration of intravenous contrast material. Individualized dose optimization techniques were used for this CT. COMPARISON: 12/25/2018 FINDINGS: Right-sided dialysis catheter tip in the distal SVC. The lungs are normal. There is no demonstrated pleural abnormality. Normal heart and pericardium. There are calcifications of the coronary arteries. Scattered subcentimeter axillary and mediastinal lymph nodes. Normal hilar regions. Normal unenhanced pulmonary arteries. Normal aorta arch and descending thoracic aorta. There are multi-level degenerative changes of the thoracic spine. Limited cuts through the upper abdomen show multiple gallstones. CT/Chest without Contrast IMPRESSION: No acute pulmonary process No suspicious noncalcified mass or nodule Cholelithiasis Electronically Signed: Pancho Cobb MD at 8:57 EDT , Service support ,
[2019-03-18 09:16] VITALS: PULSE 101; PULSE 81; PULSE 84; PULSE 93; PULSE 95; PULSE 96; PULSE 99; O2SAT 92; O2SAT 93; O2SAT 94; O2SAT 95; O2SAT 97
--- NOTE | 2019-03-19 08:28 | PCM.PSN.6M ---
PSN 6 Minute Walk Test - 6 Minute Walk Test 6 Minute Walk Test: 6 Minute Walk Test PSN:6-Minute Walk Test Start: 03/18/19 09:15 Freq: Status: Active Protocol: RESP.6MINW Document 03/18/19 09:16 POOL (Rec: 03/18/19 09:22 POOL [id number]) 6 Minute Walk Test Date Performed 03/18/19 Time Performed 09:00 Height 5 ft 10 in Weight: 180 lb Weight in Pounds 180.[address]: Assistive device used: None Pre-test Oxygen Delivery Method Room Air Pulse Ox (%) 97 Pulse Rate (60-100 beats/min) 84 Dyspnea Alexandr Scale (0-10) 0 Exertion Alexandr Scale (6-20) 6 1st minute Oxygen Delivery Method Room Air Pulse Ox (%) 97 Pulse Rate (60-100 beats/min) 93 2nd minute Oxygen Delivery Method Room Air Pulse Ox (%) 92 Pulse Rate (60-100 beats/min) 101 H 3rd minute Oxygen Delivery Method Room Air Pulse Ox (%) 93 Pulse Rate (60-100 beats/min) 99 4th minute Oxygen Delivery Method Room Air Pulse Ox (%) 94 Pulse Rate (60-100 beats/min) 99 5th minute Oxygen Delivery Method Room Air Pulse Ox (%) 94 Pulse Rate (60-100 beats/min) 95 6th minute Oxygen Delivery Method Room Air Pulse Ox (%) 95 Pulse Rate (60-100 beats/min) 96 Dyspnea Alexandr Scale (0-10) 0.5 Exertion Alexandr Scale (6-20) 11 Post-test Oxygen Delivery Method Room Air Pulse Ox (%) 97 Pulse Rate (60-100 beats/min) 81 Full Laps Walked 18 Partial Lap, Number of Tiles Walked 35 Total Distance Walked (ft) 1097 - Interpretation Interpretation: The patient ambulated 1097 feet over the course of 6 minutes beginning on room air without assistive devices or breaks. Pretesting oxygen saturation was noted to be 97% on room air. With ambulation, the amira oxygen saturation was 92%. This represents a significant exertional oxygen desaturation. - Recommendations Recommendations: There is no indication for the use of supplemental oxygen at this time. However, close interval follow-up is recommended, given the degree of oxygen desaturation noted during this study.
== END ==
PROVIDERS: Family Provider Family Medicine; PCP Family Medicine
DX: M31.31 Wegener's granulomatosis with renal involvement (principal)
CPT/HCPCS: 71250; 94618

== ENCOUNTER → 2019-04-04 08:36 | Outpatient (CLI) | payer BC, MEDICARE, SELFPAY ==
[2019-02-20 11:34] VITALS: BMI 29.0
[2019-04-06 14:50] LABS: White Blood Count 1.1 K/mm3 (4.4-11.0)
== END ==
PROVIDERS: Family Provider Family Medicine; PCP Family Medicine; Referring Provider Internal Medicine Nephrology; Visit Provider Internal Medicine Nephrology
DX: D70.9 Neutropenia, unspecified (principal)
CPT/HCPCS: 85048

== ENCOUNTER → 2019-04-06 13:32 | Outpatient (CLI) | payer BC, MEDICARE, SELFPAY ==
[2019-02-20 11:34] VITALS: BMI 29.0
[2019-04-09 06:07] LABS: QNTFERON TB Mitogen Value > 10.00 IU/mL (.); QNTFERON TB Nil Value 0.02 IU/mL (.); QNTFERON TB1+ Ag Value 0.04 IU/mL (.); QNTFERON TB2+ Ag Value 0.03 IU/mL (.)
[2019-04-09 11:31] LABS: Hep B Surface Antibodies Non Reactive (.); Hep C Antibodies <0.1 s/co ratio (0.0-0.9); Hepatitis B Core Ab Total Negative (Negative); QNTIFERON TB Positive Criteria Negative (Negative)
== END ==
PROVIDERS: Family Provider Family Medicine; PCP Family Medicine
DX: Z11.59 Encounter for screening for other viral diseases (principal); I77.6 Arteritis, unspecified
CPT/HCPCS: 36415; 86480; 86704; 86706; 86803

== ENCOUNTER 2019-04-14 11:49 | Emergency (ER) | payer BC, MEDICARE, SELFPAY ==
[2019-02-20 11:34] VITALS: BMI 29.0
[2019-04-14 11:50] VITALS: BP 127/68; PULSE 78; RESP 17; TEMP 36.7; O2SAT 100; BMI 28.2
[2019-04-14 11:55] VITALS: O2SAT 100
--- NOTE | 2019-04-14 12:07 | EKG12_ITS ---
Test Reason : LOW BP Blood Pressure : / mmHG Vent. Rate : 075 BPM Atrial Rate : 075 BPM P-R Int : 132 ms QRS Dur : 072 ms QT Int : 468 ms P-R-T Axes : 066 008 068 degrees QTc Int : 522 ms Normal sinus rhythm Prolonged QT Abnormal ECG Confirmed by ANABELL COLON, SASHA ([id number]), television news video editor JAVIER DE LA PAZ ([id number]) on 04/16/2019 1:28:46 PM Referred By: ZULLY Confirmed By:SASHA HUNG MD
--- NOTE | 2019-04-14 12:11 | RAD_ITS ---
STUDY: X-RAY CHEST REASON FOR EXAM: Male, 58 years old. Shortness of breath/dyspnea during dialysis. TECHNIQUE: Single AP portable view of the chest. COMPARISON: Comparison is made with prior study dated February 11, 2019. FINDINGS: EKG electrodes are seen. A right-sided temporary dialysis catheter is present with the tip at the junction of the superior vena cava and right atrium. Mild increased markings in the left mid lung suggestive of atelectasis. There is no demonstrated pleural abnormality. Normal size heart. Normal mediastinum and kieran. Normal visualized pulmonary arteries. Normal visualized aortic arch and descending thoracic aorta. Normal visualized thoracic spine. Normal visualized ribs, clavicles, and shoulders. There is no demonstrated abnormality of the visualized soft tissue structures of the upper abdomen. RAD/Chest 1 View (Portable) IMPRESSION: Mild degree of increased linear markings in the left mid lung suggestive of atelectasis. Electronically Signed: Godwin Palmer, at 12:36 EDT , Service support ,
[2019-04-14 12:15] LABS: Absolute Lymphocyte Count 0.78 X10^3/ul (0.83-4.51); Absolute Neutrophil Count 11.2 X10^3/uL (2.0-7.7); Basophil# 0.04 X10^3/uL; Basophil% 0.3 % (0-1); Eosinophil# 0.02 X10^3/uL; Eosinophils% 0.1 % (0-5); Hematocrit 36.7 % (40-54); Hemoglobin 11.7 g/dl (13.0-16.5); Lymphocyte # 0.78 X10^3/ul (4.0); Lymphocyte % 5.8 % (19-41); Mean Corp Hgb Conc 31.9 g/gl (32-36); Mean Corpuscular Hgb 32.4 pg (27.0-32.0); Mean Corpuscular Volume 101.7 fL (80-94); Mean Platelet Vol. 9.7 fl (6.2-12.0); Monocyte% 8.9 % (0-10); Neutrophil # 11.18 X10^3/uL (2.7-7.7); Platelet Count 188 K/mm3 (150-450); RBC Distribution Width CV 14.8 % (11.6-14.6); RBC Distribution Width SD 53.4 fl (35.1-43.9); Red Blood Count 3.61 M/mm3 (4.6-6.2); White Blood Count 13.5 K/mm3 (4.4-11.0)
[2019-04-14 12:16] LABS: POSITIVE COUNT NO; POSITIVE DIFFERENTIAL NO; POSITIVE MORPHOLOGY NO
--- NOTE | 2019-04-14 12:31 | CT_ITS ---
STUDY: CT ABDOMEN AND PELVIS WITHOUT CONTRAST REASON FOR EXAM: Male, 58 years old. Shortness of breath during dialysis. Ascites. History of Gee's granulomatosis. RADIATION DOSAGE (If Supplied By Facility): CTDIvol = ( 10.59 ) mGy, DLP = ( 582.31 ) mGycm TECHNIQUE: Transaxial images were obtained from the dome of the diaphragm to the symphysis pubis without oral contrast, and without intravenous contrast. Sagittal and coronal images were reconstructed. Individualized dose optimization techniques were used for this CT. COMPARISON: None. FINDINGS: Mild increased linear markings at the left lung base suggestive of linear atelectasis and/or scarring. Coronary artery calcification. Normal liver. There are multiple small gallstones. Normal spleen. Normal pancreas. Normal bilateral adrenal glands. There is mild cortical atrophy of the right kidney, consistent with chronic medical renal disease. There is mild cortical atrophy of the left kidney, consistent with chronic medical renal disease. Nonspecific bilateral perinephric stranding. Normal visualized stomach. Normal small intestine. There are multiple colonic diverticula consistent with diverticulosis. There is a calcified appendicolith. There is diffuse atherosclerotic calcification of the abdominal aorta and the major visceral branches, without a demonstrated aneurysm. Normal inferior vena cava. There is borderline retroperitoneal lymphadenopathy with enlarged nodes no greater than 10mm in the short axis diameter. There has been marked improvement in the appearance of the retroperitoneal lymphadenopathy. Normal urinary bladder. There is enlargement of the prostate gland. It measures 4.8 cm x 4.7 cm. There is a small umbilical hernia containing fat. Small right inguinal hernia containing fat.. There are degenerative changes of the L5-S1 level. Grade 1 anterior listhesis of L5 on S1 with spondylolysis of the pars interarticularis at the L5 vertebrae. No evidence of ascites. CT/Abdomen/Pelvis without Cont IMPRESSION: Multiple small gallstones. Bilateral atrophy of the kidneys with the nonspecific perinephric stranding. There has been improvement in the retroperitoneal lymphadenopathy as compared to prior study. No evidence of ascites. Electronically Signed: Godwin Palmer, at 13:06 EDT , Service support ,
[2019-04-14 12:33] LABS: ALB/GLOB Ratio 1.1 RATIO (0.9-2.4); AST(SGOT) 14 U/L (15-37); Alanine Aminotransfer ALT/SGPT 27 U/L (16-61); Albumin, Serum 3.7 g/dL (3.2-5.0); Alkaline Phosphatase 74 U/L (45-117); Anion Gap 10 (5-15); BUN 16 mg/dL (7-18); BUN/Creat Ratio 4.1 RATIO (10-20); Calcium,Total 8.1 mg/dL (8.5-10.1); Chloride 96 mmol/L (98-107); Creatinine, Serum 3.95 mg/dL (0.70-1.30); EST Glomerular Filtration Rate 17 mL/min (>60); Est Glom Filt Rate - Afr Amer 20 mL/min (>60); Estimated Creatinine Clearance 20.88 ml/min; Globulin 3.4 g/dL (2.2-4.2); Glucose 241 mg/dL (74-106); Potassium 3.8 mmol/L (3.5-5.1); Protein, Total 7.1 g/dL (6.4-8.2); Sodium Level 135 mmol/L (136-145)
[2019-04-14 12:51] LABS: Prothrombin Time (Protime)PT. 12.6 SECONDS (11.7-14.9)
[2019-04-14 13:07] LABS: Magnesium 2.1 mg/dL (1.6-2.6)
--- NOTE | 2019-04-14 14:04 | ED.DCSUM_ITS ---
- ER Visit Summary Date of Service: 04/14/19 Chief Complaint: Shortness of breath History of Present Illness: The patient is a [address] Blakely, Dr. Clark, and Dr. Marques Caba. He has a history of Gee's granulomatosis. From this he had an episode of pulmonary alveolar hemorrhage in January and has ended up on dialysis. He reports that he has had shortness of breath since January when he was dialyzed. It was worse than usual today. He reports that while he was at dialysis his blood pressure decreased into the 80s and he was given a liter of fluid back. They had removed 4 L prior to this. Patient reports until 2 to 3 weeks ago it seemed as though his fluid retention was in his ankles. However, it now seems to be in his abdomen and he has a hard time breathing his abdomen feels distended. Reports that his dry weight is typically 77 kg. Today his weight was 86.5 kg. Patient reports that shortness of breath is severe at worst and mild currently. Is worsened by exertion and unchanged by lying flat. It seems to be relieved by rest. He denies any fever, chills, or cough. He reports that he has had a pressure to the epigastric region and lower chest that is been constant for the past 2 to 3 weeks. It worsened today during dialysis. Physical Examination: Vitals: Stable. Afebrile. General: Well-nourished and well-developed. Head: Normocephalic atraumatic. Neck: Supple, no lymphadenopathy. No JVD. Nontender. Cardiovascular: Regular rate and rhythm. No murmurs. Respiratory: No respiratory distress. Clear to auscultation bilaterally. Abdominal: Soft, nontender, nondistended, normal bowel sounds. No guarding, rebound, or peritoneal signs. There does seem to be ascitic fluid in his abdomen. There is not a fluid wave. Back: Nontender. Extremities: Nontender, no edema. Skin: Normal color, no rash. Neurologic: Alert and oriented ?3. Cranial nerves II through XII are intact. Normal strength and sensation. Psych: Normal affect. Test Results: EKG is sinus at 75 with a QTC of 522. Troponin is negative. INR is 1.0. Out LFTs are normal. Magnesium is 2.1. Chem-7 shows a sodium 135, chloride 96, creatinine 3.95, glucose of 241, and calcium of 8.1. CBC shows a white count of 13.5 with 83 segmented neutrophils and 6 lymphocytes. H&H is 11.7 36.7. Chest x-ray shows atelectasis. Clinical Impression(s) from Imaging Studies Chest X-Ray 04/14/19 12:11 IMPRESSION: Mild degree of increased linear markings in the left mid lung suggestive of atelectasis. Electronically Signed: Godwin Minerteresa, at 12:36 EDT , Service support , Abdomen/Pelvis CT 04/14/19 12:31 IMPRESSION: Multiple small gallstones. Bilateral atrophy of the kidneys with the nonspecific perinephric stranding. There has been improvement in the retroperitoneal lymphadenopathy as compared to prior study. No evidence of ascites. Electronically Signed: Godwin Spencer, at 13:06 EDT , Service support , Emergency Department Course and Treatment: Patient's pulse ox is remained in the high 90s on room air. He is resting comfortably. I did have a prolonged discussion with him that unfortunately his CT does not show ascites that is amenable to drainage. Treatment Plan: Patient will be discharged with instructions to follow-up with his [facility] specialist tomorrow as previously scheduled. Return to the emergency department for any worsening symptoms. Disposition: To home in improved and stable condition. Impression: 1. Dyspnea. 2. Gee's granulomatosis. 3. End-stage renal disease. This note was generated with [employer] software. It may contain incorrect words, spelling, and punctuation that were not noted in review of the chart prior to signing ED Disposition - Plan for ED Patient: Disposition: Home or Assisted Living Instructions: ED Dyspnea Shortness of Breath Referrals: Marques Caba MD [Primary Care Provider] - 1-2 Days if not improving
[2019-04-14 15:14] VITALS: BP 127/51; PULSE 78; RESP 16; O2SAT 98
== END 2019-04-14 15:15 | disposition home or self-care (01) ==
LOC: ED 12:35
PROVIDERS: Emergency Provider Emergency Medicine; Family Provider Family Medicine; PCP Family Medicine
DX: R06.02 Shortness of breath (principal); M31.31 Wegener's granulomatosis with renal involvement; I13.2 Hypertensive heart and chronic kidney disease with heart failure and with stage 5 chronic kidney disease, or end stage renal disease; E11.22 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 diabetic chronic kidney disease; N18.6 End stage renal disease; I50.9 Heart failure, unspecified; Z99.2 Dependence on renal dialysis; E03.9 Hypothyroidism, unspecified; Z79.899 Other long term (current) drug therapy
CPT/HCPCS: 71045; 74176; 80053; 83735; 84484; 85025; 85610; 93005; 99285; A4216

== ENCOUNTER → 2019-05-06 12:17 | Outpatient (CLI) | payer BC, MEDICARE, SELFPAY ==
[2019-04-17 13:45] VITALS: BMI 28.2
[2019-05-06 13:13] LABS: Absolute Neutrophil Count 8.1 X10^3/uL (2.0-7.7); Basophil# 0.03 X10^3/uL; Basophil% 0.2 % (0-1); Eosinophil# 0.19 X10^3/uL; Eosinophils% 1.6 % (0-5); Hematocrit 43.9 % (40-54); Hemoglobin 13.7 g/dl (13.0-16.5); Lymphocyte % 18.3 % (19-41); Mean Corp Hgb Conc 31.2 g/gl (32-36); Mean Corpuscular Hgb 33.3 pg (27.0-32.0); Mean Corpuscular Volume 106.6 fL (80-94); Mean Platelet Vol. 9.5 fl (6.2-12.0); Monocyte# 1.44 X10^3/uL; Neutrophil % 67.3 % (47-70); Platelet Count 218 K/mm3 (150-450); RBC Distribution Width CV 15.1 % (11.6-14.6); RBC Distribution Width SD 59.1 fl (35.1-43.9); Red Blood Count 4.12 M/mm3 (4.6-6.2)
[2019-05-06 13:14] LABS: POSITIVE COUNT NO; POSITIVE DIFFERENTIAL NO; POSITIVE MORPHOLOGY NO
== END ==
PROVIDERS: Family Provider Family Medicine; PCP Family Medicine
DX: I77.6 Arteritis, unspecified (principal)
CPT/HCPCS: 36415; 85025

== ENCOUNTER 2019-05-29 05:36 | Day surgery (SDC) | payer BC, MEDICARE, SELFPAY ==
[2019-04-17 13:45] VITALS: BMI 28.2
[2019-05-20 12:59] VITALS: BMI 28.2
--- NOTE | 2019-05-21 04:36 | HP_ITS ---
Intake Vital Signs 05/20/19 Body Mass Index (BMI) 28.2 05/20/19 Height 5 ft 9 in 05/20/19 Weight: 190 lb 05/20/19 Body Mass Index (BMI) 28.0 05/20/19 Blood Pressure 119/67 05/20/19 Blood Pressure Location Rt brachial 05/20/19 Blood Pressure Position Sitting 05/20/19 Respiratory Rate 18 Intake Visit Reasons: update h&p stage 2 xpos 7-5 RC Chief Complaint: discuss xposition Community Development Technician Required: No Is patient in pain?: No Allergies losartan Allergy (Severe, Verified 05/20/19 12:57) Hives epoetin beta [From Mircera] Adverse Reaction (Verified 05/20/19 12:57) back pain Medications Atorvastatin Calcium 10 mg PO DAILY 01/19/19 [History Confirmed 05/20/19] Calcium Acetate 2,001 cap PO TIDCM 01/19/19 [History Confirmed 05/20/19] Citalopram [Celexa] 40 mg PO DAILY 01/19/19 [History Confirmed 05/20/19] Folic Acid/Vit B Complex and C [Renal Vitamin Tablet] 0.8 mg PO DAILY 01/19/19 [History Confirmed 05/20/19] Levothyroxine [Synthroid] 150 mcg PO DAILY 01/19/19 [History Confirmed 05/20/19] carvedilol 6.25 mg tablet 6.25 mg PO BID 01/27/19 [History Confirmed 05/20/19] Sulfamethoxazole/Trimethoprim [Sulfamethoxazole-Tmp Ds Tablet] 1 tab PO MOWEFR 02/04/19 [History Confirmed 05/20/19] hydralazine 25 mg tablet 25 mg PO BID tab 04/17/19 [History Confirmed 05/20/19] rituximab 1,400 mg/11.7 mL (120 mg/mL)-hyaluronidase subcutaneous soln 1,400 mg SC ONCE ml 04/17/19 [History Confirmed 05/20/19] prednisone 10 mg tablet 5 mg PO DAILY tab 05/21/19 [History Confirmed 05/21/19] FOR[facility]LY [facility], [facility] Medical History Sinus bradycardia (Chronic) Chronic systolic (congestive) heart failure (Chronic) Dilated cardiomyopathy (Chronic) Left ventricular hypertrophy (Chronic) Gee's granulomatosis with renal involvement (Chronic) Acute respiratory failure with hypoxia (Acute) Cough with hemoptysis (Acute) Acute respiratory failure (Acute) Diffuse pulmonary alveolar hemorrhage (Acute) Hemoptysis (Resolved) Healthcare-associated pneumonia (Resolved) End stage renal disease on dialysis (Chronic) Anemia (Chronic) Problem with dialysis access (Chronic) DAVID (obstructive sleep apnea) (Chronic) Lymphadenopathy (Chronic) Hyperlipidemia (Chronic) Hypothyroidism (Chronic) Hypertension (Chronic) Type II diabetes mellitus (Chronic) Surgical History H/O hernia repair (Acute) Presence of surgically created arteriovenous shunt for hemodialysis (Acute) S/P nasal surgery (Acute) Family History Father CAD (coronary artery disease) Myocardial infarction, Onset Age: 56 Stented coronary artery Social History (Updated 05/22/19 @ 05:51 by Tamera Gimenez PA-C) Smoking Status: Former smoker alcohol intake: never HPI HPI HPI: ROBERT DIEZ, is a 58 M who presents to the office today for HPI HPI Surgical H&P: Yes HPI: ROBERT DIEZ, is a 58 M who presents to the office today for an update history and physical for an upcoming stage II transposition of the left upper extremity basilic to brachial AV fistula. Patient denies recent hospitalization or illnesses since his last office visit. Patient's previous history per Dr. Owens: ROBERT DIEZ, is a 58 M who presents to the office today for ongoing surgical treatment consultation regarding stage I left upper extremity brachial to basilic AV fistula which I created for him on November 06, 2018. He has had previous attempts at left forearm AV fistula creation all of which have failed. It became evident that he has Gee's granulomatosis. He is on immunologic treatment. He was felt to have some cardiac dysfunction. His most recent visit February 20, 2019 he was not healthy enough to pursue stage II transposition. He is currently on 10 mg of prednisone daily. He is generally feeling improved. ROS General General: Yes weight change, appetite and fatigue; no colon cancer, breast cancer or weakness HEENT HEENT: No difficulty swallowing, eye injury, eye surgery, swollen glands or hoarseness Endo Endocrine: Yes thyroid disease and diabetes mellitus; no thyroid cancer, Hair loss, heat intolerance or cold intolerance Musc Musculoskeletal: No back problems, arthritis, rheumatoid arthritis, gout or joint pain Cardio Cardiovascular: Yes high blood pressure; no murmur, pacemaker, heart disease, atrial fibrillation, heart attack, heart stent, palpitations, shortness of breat with exertion or chest pain Psych Psychiatric: Yes depression; no anxiety or hearing voices Resp Respiratory: No shortness of breath, No sleep apnea, No cough, No COPD, No asthma, No emphysema, No wheezing Gastro Gastrointestinal: Yes abdominal pain, Yes nausea or vomiting, Yes diarrhea, No constipation, No blood in stool, No acid reflux, No hemorrhoids, No ulcers, Yes gallbladder problem, No black,tarry stools Adrian Hematologic: No blood thinners, No blood disorders, No bleeding, No anemia, No blood clots Neuro Neurologic: No weakness Exam Const General: cooperative, healthy appearing, comfortable, no acute distress HENMT Head: normal to inspection Eyes General: appearance normal, both eyes and all related structures Neck Neck: normal visual inspection Neck mass: No Resp Effort & Inspection: normal respiratory effort Auscultation: clear to auscultation bilaterally Cardio Rate: regular rate Rhythm: regular rhythm Heart Sounds: no murmurs GI Inspection: normal to inspection, obesity Palpation: soft Auscultation: normal bowel sounds Skin General: no rashes or lesions noted Neuro General: no focal motor deficits, CN's II-XI intact bilaterally Extrem General: normal to inspection Other: Left upper extremity AV fistula- good pulse, bruit and thrill Psych Appearance: grossly normal Affect: normal affect Assessment & Plan Problems 1. End stage renal disease on dialysis N18.6; Z99.[address] Owens will plan to perform stage II transposition left upper extremity basilic vein to brachial artery arteriovenous fistula. Procedure details, risks and benefits have been reviewed. Patient has had the opportunity to ask and have questions answered. Patient verbally understands and agrees with the plan. Our office has received cardiac and rheumatologic clearance. I will discuss with Dr. Owens in regards to holding the prednisone or continuation for the procedure. I will also verify if ultrasound will be needed within the OR prior to the procedure for inspection and marking of the transposition site. Per Dr. Owens's previous plan: I am recommending to the patient stage II transposition left upper extremity basilic vein to brachial artery hemodialysis fistula transposition. He has a split in the vein. There is a common vein close to the antecubital anastomosis then the more posterior dorsal branches the larger more dominant branch. I plan to perform ultrasound inspection and mapping prior to transposition. The patient has trouble externally rotating his arm so great care will be observed to try to provide as much transposition as possible. Medications Changed: From: prednisone 30 mg PO DAILY breathing To: prednisone 5 mg PO DAILY Coding Level of Care Code No Charge Diagnoses End stage renal disease on dialysis N18.6; Z99.2 Comment Update H&P 05/22/19 0551 <Electronically signed by Tamera cox PA-C> Date _ Tamera Gimenez PA-C I have re-examined the patient. There are no clinical changes since date of exam.
[2019-05-27 11:20] LABS: Hemoglobin 13.1 g/dl (13.0-16.5); Mean Corpuscular Hgb 32.3 pg (27.0-32.0); Mean Platelet Vol. 9.3 fl (6.2-12.0); Platelet Count 235 K/mm3 (150-450); RBC Distribution Width CV 13.1 % (11.6-14.6); RBC Distribution Width SD 47.7 fl (35.1-43.9); Red Blood Count 4.06 M/mm3 (4.6-6.2); Scan Indicated on CBC? Y/N NO; White Blood Count 9.6 K/mm3 (4.4-11.0)
[2019-05-27 11:38] LABS: Anion Gap 10 (5-15); BUN 14 mg/dL (7-18); BUN/Creat Ratio 4.2 RATIO (10-20); Chloride 97 mmol/L (98-107); Creatinine, Serum 3.35 mg/dL (0.70-1.30); EST Glomerular Filtration Rate 20 mL/min (>60); Est Glom Filt Rate - Afr Amer 25 mL/min (>60); Glucose 101 mg/dL (74-106); Potassium 3.4 mmol/L (3.5-5.1); Sodium Level 140 mmol/L (136-145)
[2019-05-29 05:51] VITALS: BP 149/66; PULSE 57; RESP 16; TEMP 36.3; O2SAT 100; BMI 28.7
[2019-05-29 06:26] LABS: Bedside Glucose 76 mg/dL (70-110)
--- NOTE | 2019-05-29 07:14 | PCM.DC.FIST ---
Discharge Diet: Renal Diet Discharge Activity: May Not Drive - for 2-3 days or while taking narcotic pain medications., May Shower, May Take a Tub Bath - in 5 days. Lifting Restrictions: 5 pounds Keep extremity elevated above heart level: - - Keep arm elevated above the heart level for 3 days. Additional Activity Instructions:: Exercise hand vigorously with a stress ball. Call your doctor if your incision/area has: Continuous Slow Oozing, Sudden Increased Bleeding - apply pressure and call your doctor., Increased Pain/ Swelling, Increased Redness, Foul Smelling Discharge Call your doctor if you observe: Fever of 101 or Higher Suture Line Care: Avoid Pulling/Pushing, Avoid Pinching/Bending Cleanse incision/area with: Keep Dressing Clean & Dry Additional Dressing/Incision Instructions:: You may remove your elastic wrap dressing and white soft full dressing in 2 days. Leave the Steri-Strips in place for 1 additional week. Allergies/Adverse Reactions: Allergies losartan Allergy (Severe, Verified 05/27/19 08:31) Hives epoetin beta [From Mircera] Adverse Reaction (Verified 05/27/19 08:31) back pain Medications to take at Discharge Atorvastatin Calcium 10 mg PO DAILY 01/19/19 Calcium Acetate 2,001 cap PO TIDCM 01/19/19 Citalopram [Celexa] 40 mg PO DAILY 01/19/19 Folic Acid/Vit B Complex and C [Renal Vitamin Tablet] 1 cap PO QHS 01/19/19 Levothyroxine [Synthroid] 150 mcg PO DAILY 01/19/19 carvedilol 6.25 mg tablet 6.25 mg PO BID 01/27/19 Sulfamethoxazole/Trimethoprim [Sulfamethoxazole-Tmp Ds Tablet] 1 tab PO MOWEFR 02/04/19 hydralazine 25 mg tablet 25 mg PO BID tab 04/17/19 rituximab 1,400 mg/11.7 mL (120 mg/mL)-hyaluronidase subcutaneous soln 1,400 mg SC ONCE ml 04/17/19 prednisone 10 mg tablet 5 mg PO DAILY tab 05/21/19 Furosemide [Lasix] 80 mg PO DAILY 05/27/19 Hydrocodone Bitart/Apap 5-325 [[place] 5MG-325MG] 1 tablet PO Q6H PRN PRN 2 Days #5 tablet 05/29/19 Insulin Lispro [Humalog] See Protocol SQ PRN PRN 05/29/19 The following prescriptions were given: Hydrocodone Bitart/Apap 5-325 [[place] 5MG-325MG] 1 tablet PO Q6H PRN PRN 2 Days #5 tablet PRN Reason: Pain Transmission Status: Received by [id number] Primary Care Physician: Marques Caba MD [Primary Care Provider] - Test Results: Test results from this visit will be discussed in further detail at your follow-up appointment, if applicable. Please Follow Up With: Pedro Owens MD - [phone] When: Call to make an appointment for suture removal and follow up in 10 days
--- NOTE | 2019-05-29 09:21 | OP.PCM_ITS ---
Problem List (1) End stage renal disease on dialysis Status: Chronic Report of Operation Date of Procedure: 05/29/19 Pre-Operative Diagnosis: Stage V chronic renal insufficiency on chronic hemodialysis Post-Operative Diagnosis: Same Surgery/Procedure Performed:: Stage II transposition left upper extremity basilic vein to brachial artery arteriovenous hemodialysis fistula creation Description of Surgical Findings:: Timeout and informed consent was obtained. 58-year-old male was taken out from placement table because of movement with an attempted to moderate anesthesia care he underwent general anesthesia. The left upper extremity was sterilely prepped and draped. Clean case no antibiotics required. 1% lidocaine mixed 50- 50 with 0.5% Marcaine was used as a local anesthetic. Cc was used. Previous ultrasound mapping of the basilic vein had been performed. A longitudinal incision was created. Sharp and blunt dissection was used to identify the more dominant of 2 branches of the basilic vein. Was dissected free. Side branches were secured with 3-0 Vicryl ligatures and hemoclips were indicated. Dissection was performed all the way up to the axilla. Having then completely mobilized the basilic vein I then identified to the brachial artery in the distal left upper arm and sharp and blunt dissection was used to obtain circumferential control of that. Then created a subcutaneous tunnel with a 6 mm [place] number. I secured the basilic vein at the antecubital space with interrupted 3- 0 Vicryl suture ligature and amputated it. I then irrigated it and advanced it through the tunnel with the a tunneler it had been inked marked to avoid kinking there was good positional life. The patient received 9000 units of heparin. Peripheral vascular clamps were placed on the brachial artery and 11 blade was used to make an arteriotomy which was extended with Jacobs scissors. The vein was spatulated. It is of note that the vein wall was somewhat thickened in this area. I felt that however I had a nice spatulation and a end-to-side anastomosis was created with a running 7-0 Prolene. Prior to completion there was good antegrade retrograde flow. The anastomosis was completed. There is immediately flow and thrill within the fistula. A single repair suture of 7-0 Prolene was required. The hand was inspected it was noted to be viable. Left radial and ulnar signals were present albeit somewhat diminished. They did not seem to change most however with compression of the fistula. The hand however appeared to be viable with reasonably crisp capillary refill. The vein was inspected and appeared to have a good position alignment. The deep wound was closed with interrupted 3-0 Vicryl's simple sutures. The patient received 20 mg of protamine as reversal agent. The skin edges were approximated running septic or 4-0 Monocryl. Steri-Strips Telfa soft roll and Rico wrap applied. Sponge and instrument and needle counts were reported the surgeon to be correct. Blood loss was 100 cc. He tolerated the procedure well was taken to the recovery area in satisfactory condition without apparent complication. Specimens none. Drains none. Blood loss 100 cc. Pedro Owens M.D., F.A.C.S. Type of Anesthesia:: General Anesthesiologist: Rachele Lagunas
[2019-05-29 10:02] VITALS: BP 140/63; BP 149/66; PULSE 76; RESP 16; TEMP 36.3; O2SAT 93
[2019-05-29 10:10] LABS: Bedside Glucose 134 mg/dL (70-110)
[2019-05-29 10:15] VITALS: BP 149/66; BP 153/75; PULSE 71; RESP 16; O2SAT 93
[2019-05-29 10:30] VITALS: BP 149/66; BP 152/76; PULSE 69; RESP 16; O2SAT 95
[2019-05-29 10:38] VITALS: BP 149/66; BP 158/69; PULSE 70; RESP 16; O2SAT 95
[2019-05-29] MEDS: HYDROcodone Bitartrate/Apap 5/325 Tablet PO (11:40)
[2019-05-29 12:30] VITALS: BP 149/66; BP 154/75; PULSE 68; RESP 16; TEMP 36.1; O2SAT 94
== END 2019-05-29 12:30 | disposition home or self-care (01) ==
LOC: SDC 05:37 → AC 05:39
PROVIDERS: Family Provider Family Medicine; PCP Family Medicine; Referring Provider Surgery; Visit Provider Surgery
PROC: (CPT 36819; principal; 2019-05-29 07:00)
DX: Z45.2 Encounter for adjustment and management of vascular access device (principal); I13.2 Hypertensive heart and chronic kidney disease with heart failure and with stage 5 chronic kidney disease, or end stage renal disease; E11.22 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 diabetic chronic kidney disease; N18.6 End stage renal disease; I50.22 Chronic systolic (congestive) heart failure; Z99.2 Dependence on renal dialysis; D63.1 Anemia in chronic kidney disease; E03.9 Hypothyroidism, unspecified; E78.5 Hyperlipidemia, unspecified; G47.33 Obstructive sleep apnea (adult) (pediatric); I42.0 Dilated cardiomyopathy; M31.31 Wegener's granulomatosis with renal involvement; F32.9 Major depressive disorder, single episode, unspecified; F41.9 Anxiety disorder, unspecified; Z79.4 Long term (current) use of insulin; Z79.899 Other long term (current) drug therapy; Z87.891 Personal history of nicotine dependence
CPT/HCPCS: 36819; 36415; 80048; 82962; 85027; J7120; J2405

== ENCOUNTER 2019-09-18 14:06 | Emergency (ER) | payer BC, MEDICARE, SELFPAY ==
[2019-07-17 13:06] VITALS: BMI 28.7
[2019-09-18 14:08] VITALS: BP 117/61; PULSE 75; RESP 16; TEMP 36.6; O2SAT 98; BMI 29.6
--- NOTE | 2019-09-18 14:10 | ED.RN ---
WHILE TRIAGING PT, ASKED HOW MANY PEOPLE WOULD BE INFRONT OF HIM. PT DECIDED TO LEAVE. PT IS A/O X3 AND LEFT WITH HIS SON.
== END 2019-09-18 15:38 | disposition left against medical advice (07) ==
LOC: ED 14:30
PROVIDERS: Emergency Provider Emergency Medicine; Family Provider Family Medicine; PCP Family Medicine
DX: R69 Illness, unspecified (principal); Z53.21 Procedure and treatment not carried out due to patient leaving prior to being seen by health care provider

== ENCOUNTER → 2019-09-23 14:02 | Outpatient (CLI) | payer BC, MEDICARE, SELFPAY ==
[2019-09-18 14:08] VITALS: BMI 29.6
[2019-09-23 15:43] LABS: Absolute Lymphocyte Count 1.27 X10^3/uL (0.83-4.51); Absolute Neutrophil Count 8.4 X10^3/uL (2.0-7.7); Basophil# 0.05 X10^3/uL; Basophil% 0.5 % (0-1); Eosinophil# 0.09 X10^3/uL; Eosinophils% 0.8 % (0-5); Hematocrit 34.5 % (40-54); Hemoglobin 11.1 g/dL (13.0-16.5); Lymphocyte # 1.27 X10^3/ul (4.0); Lymphocyte % 11.7 % (19-41); Mean Corp Hgb Conc 32.2 g/dL (32-36); Mean Corpuscular Hgb 30.2 pg (27.0-32.0); Mean Platelet Vol. 9.8 fl (6.2-12.0); Monocyte% 9.2 % (0-10); NRBC Flagged by Analyzer 0 % (0-5); Neutrophil # 8.39 X10^3/uL (2.7-7.7); Neutrophil % 77.1 % (47-70); Platelet Count 231 K/mm3 (150-450); RBC Distribution Width CV 13.1 % (11.6-14.6); RBC Distribution Width SD 44.8 fl (35.1-43.9); Red Blood Count 3.67 M/mm3 (4.6-6.2); White Blood Count 10.9 K/mm3 (4.4-11.0)
[2019-09-23 15:58] LABS: Hemoglobin A1c 6.5 % (4.2-6.3)
[2019-09-23 16:04] LABS: ALB/GLOB Ratio 1.1 RATIO (0.9-2.4); AST(SGOT) 15 U/L (15-37); Alanine Aminotransfer ALT/SGPT 21 U/L (16-61); Albumin, Serum 3.9 g/dL (3.2-5.0); Alkaline Phosphatase 78 U/L (45-117); Anion Gap 9 (5-15); BUN 23 mg/dL (7-18); Calcium,Total 8.8 mg/dL (8.5-10.1); Chloride 95 mmol/L (98-107); Cholesterol 213 mg/dL (200); Creatinine, Serum 4.62 mg/dL (0.70-1.30); EST Glomerular Filtration Rate 14 mL/min (>60); Est Glom Filt Rate - Afr Amer 17 mL/min (>60); Globulin 3.6 g/dL (2.2-4.2); Glucose 138 mg/dL (74-106); High Density Lipoprotein 35 mg/dL; Potassium 3.9 mmol/L (3.5-5.1); Protein, Total 7.5 g/dL (6.4-8.2); Sodium Level 138 mmol/L (136-145); T4 Free Direct 1.15 ng/dL (0.76-1.46); Triglycerides 358 mg/dL; Very Low Density Lipoprotein 72 mg/dL (5-40)
== END ==
PROVIDERS: Visit Provider Family Medicine
DX: E11.22 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 diabetic chronic kidney disease (principal); N18.6 End stage renal disease; E11.65 Type 2 diabetes mellitus with hyperglycemia; E78.5 Hyperlipidemia, unspecified; E03.9 Hypothyroidism, unspecified
CPT/HCPCS: 36415; 80053; 80061; 83036; 84439; 84443; 85025

== ENCOUNTER → 2019-09-30 11:52 | Outpatient (CLI) | payer BC, MEDICARE, SELFPAY ==
[2019-09-18 14:08] VITALS: BMI 29.6
--- NOTE | 2019-09-30 11:56 | US_ITS ---
STUDY: THYROID ULTRASOUND REASON FOR EXAM: Male, 59 years old. Nodule TECHNIQUE: Ultrasound evaluation of the thyroid was performed with real-time and static berrios-scale imaging. COMPARISON: None. FINDINGS: RIGHT LOBE: The right lobe of the thyroid gland measures 4.7 x 1.4 x 1.8 cm. There is a heterogeneous echotexture. There are no demonstrated solid, cystic or complex lesions. LEFT LOBE: The left lobe of the thyroid gland measures 3.7 x 1.6 x 1.3 cm. There is a heterogeneous echotexture. There are no demonstrated solid, cystic or complex lesions. ISTHMUS: The isthmus measures 4 mm . The regional lymph nodes are normal. US/Thyroid IMPRESSION: Bilateral heterogeneous appearance to the thyroid without evidence for discrete nodule Electronically Signed: Jarad Goodwin MD at 17:31 EST , Service support ,
== END ==
PROVIDERS: Family Provider Family Medicine; PCP Family Medicine; Referring Provider Family Medicine; Visit Provider Family Medicine
DX: E04.1 Nontoxic single thyroid nodule (principal)
CPT/HCPCS: 76536

== ENCOUNTER → 2019-10-21 20:33 | Outpatient (CLI) | payer BC, MEDICARE, SELFPAY | PROVIDERS: Family Provider Family Medicine; PCP Family Medicine | DX: G47.33 Obstructive sleep apnea (adult) (pediatric) (principal) | CPT/HCPCS: 95811 ==

== ENCOUNTER → 2019-12-22 13:54 | Outpatient (CLI) | payer BC, MEDICARE, SELFPAY ==
[2019-12-22 13:53] VITALS: BMI 29.6
[2019-12-22 14:25] LABS: Absolute Lymphocyte Count 1.37 X10^3/uL (0.83-4.51); Absolute Neutrophil Count 11.7 X10^3/uL (2.0-7.7); Basophil# 0.07 X10^3/uL; Basophil% 0.5 % (0-1); Eosinophil# 0.13 X10^3/uL; Eosinophils% 0.9 % (0-5); Hematocrit 36.2 % (40-54); Hemoglobin 11.6 g/dL (13.0-16.5); Lymphocyte # 1.37 X10^3/ul (4.0); Lymphocyte % 9.6 % (19-41); Mean Corpuscular Hgb 31.3 pg (27.0-32.0); Mean Corpuscular Volume 97.6 fL (80-94); Mean Platelet Vol. 9.8 fl (6.2-12.0); Monocyte# 0.85 X10^3/uL; Monocyte% 5.9 % (0-10); NRBC Flagged by Analyzer 0 % (0-5); Neutrophil # 11.72 X10^3/uL (2.7-7.7); Neutrophil % 81.9 % (47-70); Platelet Count 238 K/mm3 (150-450); RBC Distribution Width CV 14.3 % (11.6-14.6); RBC Distribution Width SD 51.2 fl (35.1-43.9); Red Blood Count 3.71 M/mm3 (4.6-6.2); White Blood Count 14.3 K/mm3 (4.4-11.0)
[2019-12-22 14:51] LABS: Anion Gap 7 (5-15); BUN 52 mg/dL (7-18); BUN/Creat Ratio 5.8 RATIO (10-20); Calcium,Total 9.1 mg/dL (8.5-10.1); Chloride 99 mmol/L (98-107); EST Glomerular Filtration Rate 7 mL/min (>60); Est Glom Filt Rate - Afr Amer 8 mL/min (>60); Glucose 204 mg/dL (74-106); Potassium 4.7 mmol/L (3.5-5.1); Sodium Level 136 mmol/L (136-145)
== END ==
PROVIDERS: PCP Family Medicine; Referring Provider Physician Assistant; Visit Provider Physician Assistant
DX: T82.898A Other specified complication of vascular prosthetic devices, implants and grafts, initial encounter (principal)
CPT/HCPCS: 36415; 80048; 85025

== ENCOUNTER 2019-12-24 09:50 | Day surgery (SDC) | payer BC, MEDICARE, SELFPAY ==
--- NOTE | 2019-12-22 02:34 | HP_ITS ---
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 Is patient in pain?: No Allergies losartan Allergy (Severe, Verified 12/22/19 13:53) Hives epoetin beta [From Mircera] Adverse Reaction (Verified 12/22/19 13:53) back pain Medications Atorvastatin Calcium 10 mg PO DAILY 01/19/19 [History Confirmed 12/22/19] Citalopram [Celexa] 40 mg PO DAILY 01/19/19 [History Confirmed 12/22/19] Folic Acid/Vit B Complex and C [Renal Vitamin Tablet] 1 cap PO QHS 01/19/19 [History Confirmed 12/22/19] Levothyroxine [Synthroid] 150 mcg PO DAILY 01/19/19 [History Confirmed 12/22/19] carvedilol 6.25 mg tablet 6.25 mg PO BID 01/27/19 [History Confirmed 12/22/19] Sulfamethoxazole/Trimethoprim [Sulfamethoxazole-Tmp Ds Tablet] 1 tab PO MOWEFR 02/04/19 [History Confirmed 12/22/19] hydralazine 25 mg tablet 25 mg PO BID tab 04/17/19 [History Confirmed 12/22/19] rituximab-hyaluronidase,human 1,400 mg SC ONCE ml 04/17/19 [History Confirmed 12/22/19] prednisone 10 mg tablet 5 mg PO DAILY tab 05/21/19 [History Confirmed 12/22/19] Furosemide [Lasix] 80 mg PO DAILY 05/27/19 [History Confirmed 12/22/19] Insulin Lispro [Humalog] See Protocol SQ PRN PRN 05/29/19 [History Confirmed 12/22/19] PFSH Medical History Sinus bradycardia (Chronic) Chronic systolic (congestive) heart failure (Chronic) Dilated cardiomyopathy (Chronic) Left ventricular hypertrophy (Chronic) Gee's granulomatosis with renal involvement (Chronic) Acute respiratory failure with hypoxia (Acute) Cough with hemoptysis (Acute) Acute respiratory failure (Acute) Diffuse pulmonary alveolar hemorrhage (Acute) Hemoptysis (Resolved) Healthcare-associated pneumonia (Resolved) End stage renal disease on dialysis (Chronic) Anemia (Chronic) Problem with dialysis access (Chronic) DAVID (obstructive sleep apnea) (Chronic) Lymphadenopathy (Chronic) Hyperlipidemia (Chronic) Hypothyroidism (Chronic) Hypertension (Chronic) Type II diabetes mellitus (Chronic) Surgical History H/O hernia repair (Acute) Presence of surgically created arteriovenous shunt for hemodialysis (Acute) S/P arteriovenous (AV) fistula repair (Acute) S/P nasal surgery (Acute) Family History Father CAD (coronary artery disease) Myocardial infarction, Onset Age: 56 Stented coronary artery Social History (Updated 12/22/19 @ 14:48 by Tamera Gimenez PA-C) Smoking Status: Unknown if ever smoked alcohol intake: never HPI HPI HPI: ROBERT DIEZ, is a 59 M who presents to the office today for HPI HPI Surgical H&P: Yes HPI: ROBERT DIEZ, is a 59 M who presents to the office today for decreased flow rate. Patient has a stage II transposition left upper extremity basilic vein to brachial artery arteriovenous hemodialysis fistula. He states he has been dialyzing on yellow for several weeks. He states he has been completing his entire dialysis treatment. Patient denies having a previous fistulogram on this current fistula. He dialyzes on M, W, F. He is not currently on any anticoagulation. ROS General General: Yes weight change, appetite and fatigue; no colon cancer, breast cancer or weakness HEENT HEENT: No difficulty swallowing, eye injury, eye surgery, swollen glands or hoarseness Endo Endocrine: Yes thyroid disease and diabetes mellitus; no thyroid cancer, Hair loss, heat intolerance or cold intolerance Musc Musculoskeletal: No back problems, arthritis, rheumatoid arthritis, gout or joint pain Cardio Cardiovascular: Yes high blood pressure; no murmur, pacemaker, heart disease, atrial fibrillation, heart attack, heart stent, palpitations, shortness of breat with exertion or chest pain Psych Psychiatric: Yes depression; no anxiety or hearing voices Resp Respiratory: No shortness of breath, No sleep apnea, No cough, No COPD, No asthma, No emphysema, No wheezing Gastro Gastrointestinal: Yes abdominal pain, Yes nausea or vomiting, Yes diarrhea, No constipation, No blood in stool, No acid reflux, No hemorrhoids, No ulcers, Yes gallbladder problem, No black,tarry stools Adrian Hematologic: No blood thinners, No blood disorders, No bleeding, No anemia, No blood clots Neuro Neurologic: No weakness Exam Const General: cooperative, healthy appearing, comfortable, no acute distress HENMT Head: normal to inspection Eyes General: appearance normal, both eyes and all related structures Neck Neck: normal visual inspection Neck mass: No Resp Effort & Inspection: normal respiratory effort Auscultation: clear to auscultation bilaterally Cardio Rate: regular rate Rhythm: regular rhythm Heart Sounds: no murmurs GI Inspection: normal to inspection Palpation: soft Auscultation: normal bowel sounds Skin Other: Left upper extremity AV fistula- good pulse, diminished bruit and thrill. Neuro General: no focal motor deficits, CN's II-XI intact bilaterally Extrem General: normal to inspection Psych Appearance: grossly normal Affect: normal affect Assessment & Plan Problems 1. Problem with dialysis access, initial encounter T82.898A Plan Dr. Owens will plan to perform a left upper extremity fistulogram. Procedure details, risks and benefits have been explained. Patient has had the opportunity to ask and have questions answered. Patient will obtain blood work today. Fistulogram will be scheduled urgently, as patient has already had a left forearm fistula fail due to Gee's disease. Orders Orders: Basic Metabolic Profile (BMP) Today T82.898A CBC W/Diff, Automated Today T82.898A Coding Level of Care Code Off vis,est,level 3 Diagnoses Problem with dialysis access, initial encounter T82.898A ??Encounter type: initial encounter 12/22/19 1448 <Electronically signed by Tamera cox PA-C> Date _ Tamera Gimenez PA-C
[2019-12-22 13:53] VITALS: BMI 29.6
[2019-12-23 15:00] VITALS: BMI 30.1
--- NOTE | 2019-12-24 10:41 | HP.PCM_ITS ---
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 Is patient in pain?: No Allergies losartan Allergy (Severe, Verified 12/22/19 13:53) Hives epoetin beta [From Mircera] Adverse Reaction (Verified 12/22/19 13:53) back pain Medications Atorvastatin Calcium 10 mg PO DAILY 01/19/19 [History Confirmed 12/22/19] Citalopram [Celexa] 40 mg PO DAILY 01/19/19 [History Confirmed 12/22/19] Folic Acid/Vit B Complex and C [Renal Vitamin Tablet] 1 cap PO QHS 01/19/19 [History Confirmed 12/22/19] Levothyroxine [Synthroid] 150 mcg PO DAILY 01/19/19 [History Confirmed 12/22/19] carvedilol 6.25 mg tablet 6.25 mg PO BID 01/27/19 [History Confirmed 12/22/19] Sulfamethoxazole/Trimethoprim [Sulfamethoxazole-Tmp Ds Tablet] 1 tab PO MOWEFR 02/04/19 [History Confirmed 12/22/19] hydralazine 25 mg tablet 25 mg PO BID tab 04/17/19 [History Confirmed 12/22/19] rituximab-hyaluronidase,human 1,400 mg SC ONCE ml 04/17/19 [History Confirmed 12/22/19] prednisone 10 mg tablet 5 mg PO DAILY tab 05/21/19 [History Confirmed 12/22/19] Furosemide [Lasix] 80 mg PO DAILY 05/27/19 [History Confirmed 12/22/19] Insulin Lispro [Humalog] See Protocol SQ PRN PRN 05/29/19 [History Confirmed 12/22/19] [facility] Medical History Sinus bradycardia (Chronic) Chronic systolic (congestive) heart failure (Chronic) Dilated cardiomyopathy (Chronic) Left ventricular hypertrophy (Chronic) Gee's granulomatosis with renal involvement (Chronic) Acute respiratory failure with hypoxia (Acute) Cough with hemoptysis (Acute) Acute respiratory failure (Acute) Diffuse pulmonary alveolar hemorrhage (Acute) Hemoptysis (Resolved) Healthcare-associated pneumonia (Resolved) End stage renal disease on dialysis (Chronic) Anemia (Chronic) Problem with dialysis access (Chronic) DAVID (obstructive sleep apnea) (Chronic) Lymphadenopathy (Chronic) Hyperlipidemia (Chronic) Hypothyroidism (Chronic) Hypertension (Chronic) Type II diabetes mellitus (Chronic) Surgical History H/O hernia repair (Acute) Presence of surgically created arteriovenous shunt for hemodialysis (Acute) S/P arteriovenous (AV) fistula repair (Acute) S/P nasal surgery (Acute) Family History Father CAD (coronary artery disease) Myocardial infarction, Onset Age: 56 Stented coronary artery Social History (Updated 12/22/19 @ 14:48 by Tamera Giemnez PA-C) Smoking Status: Unknown if ever smoked alcohol intake: never HPI HPI HPI: ROBERT DIEZ, is a 59 M who presents to the office today for HPI HPI Surgical H&P: Yes HPI: ROBERT DIEZ, is a 59 M who presents to the office today for decreased flow rate. Patient has a stage II transposition left upper extremity basilic vein to brachial artery arteriovenous hemodialysis fistula. He states he has been dialyzing on yellow for several weeks. He states he has been completing his entire dialysis treatment. Patient denies having a previous fistulogram on this current fistula. He dialyzes on M, W, F. He is not currently on any anticoagulation. ROS General General: Yes weight change, appetite and fatigue; no colon cancer, breast cancer or weakness HEENT HEENT: No difficulty swallowing, eye injury, eye surgery, swollen glands or hoarseness Endo Endocrine: Yes thyroid disease and diabetes mellitus; no thyroid cancer, Hair loss, heat intolerance or cold intolerance Musc Musculoskeletal: No back problems, arthritis, rheumatoid arthritis, gout or joint pain Cardio Cardiovascular: Yes high blood pressure; no murmur, pacemaker, heart disease, atrial fibrillation, heart attack, heart stent, palpitations, shortness of breat with exertion or chest pain Psych Psychiatric: Yes depression; no anxiety or hearing voices Resp Respiratory: No shortness of breath, No sleep apnea, No cough, No COPD, No asthma, No emphysema, No wheezing Gastro Gastrointestinal: Yes abdominal pain, Yes nausea or vomiting, Yes diarrhea, No constipation, No blood in stool, No acid reflux, No hemorrhoids, No ulcers, Yes gallbladder problem, No black,tarry stools Adrian Hematologic: No blood thinners, No blood disorders, No bleeding, No anemia, No blood clots Neuro Neurologic: No weakness Exam Const General: cooperative, healthy appearing, comfortable, no acute distress [facility] Head: normal to inspection Eyes General: appearance normal, both eyes and all related structures Neck Neck: normal visual inspection Neck mass: No Resp Effort & Inspection: normal respiratory effort Auscultation: clear to auscultation bilaterally Cardio Rate: regular rate Rhythm: regular rhythm Heart Sounds: no murmurs GI Inspection: normal to inspection Palpation: soft Auscultation: normal bowel sounds Skin Other: Left upper extremity AV fistula- good pulse, diminished bruit and thrill. Neuro General: no focal motor deficits, CN's II-XI intact bilaterally Extrem General: normal to inspection Psych Appearance: grossly normal Affect: normal affect Assessment & Plan Problems 1. Problem with dialysis access, initial encounter T82.898A Plan Dr. Owens will plan to perform a left upper extremity fistulogram. Procedure details, risks and benefits have been explained. Patient has had the opportunity to ask and have questions answered. Patient will obtain blood work today. Fistulogram will be scheduled urgently, as patient has already had a left forearm fistula fail due to Gee's disease. Orders Orders: Basic Metabolic Profile (BMP) Today T82.898A CBC W/Diff, Automated Today T82.898A Coding Level of Care Code Off vis,est,level 3 Diagnoses Problem with dialysis access, initial encounter T82.898A ??Encounter type: initial encounter 12/22/19 0318 <Electronically signed by Tamera cox PA-C> Date _ Tamera Gimenez PA-C I have re-examined the patient. There are no clinical changes since date of exam.
--- NOTE | 2019-12-24 12:36 | OP.PCM_ITS ---
Problem List (1) Problem with dialysis access Status: Chronic Qualifiers: Encounter type: initial encounter Report of Operation Date of Procedure: 12/24/19 Pre-Operative Diagnosis: Diminished flow left upper extremity transposed basilic vein to brachial artery arteriovenous hemodialysis fistula Post-Operative Diagnosis: Diminished flow left extremity transposed basilic vein to brachial artery arteriovenous hemodialysis fistula with inflow venous stenosis and upper arm outflow venous stenosis total of 3 areas of clinical significance Surgery/Procedure Performed:: Left upper extremity fistulogram double access antegrade and retrograde with 6 x 2 Cutting Balloon angioplasty of the upper arm venous outflow with the addition of a 7 x 60 mm Lutonix drug-coated balloon angioplasty. 6 x 2 Cutting Balloon angioplasty of the proximal 4 cm of the fistula fistula Description of Surgical Findings:: Timeout and informed consent was obtained. 59-year-old gentleman was taken to the special procedure lab placed on the table. He received 50 mcg of fentanyl and 1 mg of Versed is intravenous sedation. The left extremity sterilely prepped draped. Ultrasound was used to identify the transposed basilic vein closer to the arterial anastomosis. Local was instilled micropuncture needle inserted antegrade with flow micro-micropuncture wire 6 [place] short sheath was inserted then using Isovue contrast fistulogram was obtained the upper arm. this demonstrated 2 areas of high-grade 90% venous stenosis in the more distal part of the fistula as it was curving past the humerus. There was 3 segment long area of stenosis of the proximal fistula adjacent to the anastomosis. To treat the more distal part of the fistula at the humerus I gave the patient 5000 units of heparin IV and placed a 6 x 2 Cutting Balloon performed balloon angioplasty of both of these areas. I felt that I had improvement. However the patient has had previous problems with aggressive fistula stenosis and failure. So I placed that a 7 x 60 mm drug-coated balloon Lutonix and insufflated that to 12 samuel of pressure. Follow-up imaging demonstrated improvement though there was felt to be likely some spasm. I then used ultrasound to gain retrograde access to the fistula again using 2% local micropuncture needle micropuncture wire 6 [place]gas[place] short sheath dilator. Using a 4 [place] glide cath and a angled Glidewire gain access to the brachial artery proximal to the anastomosis obtained a fistulogram demonstrating the areas of high-grade 90% stenosis of the proximal 3 cm of the fistula. I used the 6 x 2 Cutting Balloon performed balloon angioplasty of this area. Final views demonstrated significant improvement I elected not to treat the proximal portion of the fistula with drug-coated balloon. There was resumption of a palpable thrill. The sheaths were removed U sutures of 4-0 nylon was placed blood loss was minimal he tolerated well no apparent complication he was taken back to the recovery area in satisfactory condition. Images demonstrate a transposed left upper extremity basilic vein to brachial artery AV fistula. There are 3 areas of stenosis. The proximal 3 cm of the fistula adjacent to the arterial anastomosis was tightly stenotic. There were 2 areas of serial stenosis of the more outflow of the basilic vein is across the humerus. The more proximal portions of the fistula was treated with a cutting balloon only. The more distal 2 areas of stenosis were treated with the cutting balloon and then subsequently a drug-coated balloon. Pedro Owens M.D., F.A.C.S. Type of Anesthesia:: IV Sedation, Local
== END 2019-12-24 13:34 | disposition home or self-care (01) ==
LOC: CLSP 09:53
PROVIDERS: PCP Family Medicine; Referring Provider Surgery; Visit Provider Surgery
DX: T82.858A Stenosis of other vascular prosthetic devices, implants and grafts, initial encounter (principal); I13.2 Hypertensive heart and chronic kidney disease with heart failure and with stage 5 chronic kidney disease, or end stage renal disease; E11.22 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 diabetic chronic kidney disease; N18.6 End stage renal disease; I50.22 Chronic systolic (congestive) heart failure; D63.1 Anemia in chronic kidney disease; I42.0 Dilated cardiomyopathy; M31.31 Wegener's granulomatosis with renal involvement; E78.5 Hyperlipidemia, unspecified; E03.9 Hypothyroidism, unspecified; Z99.2 Dependence on renal dialysis; Z79.4 Long term (current) use of insulin; Z79.899 Other long term (current) drug therapy
CPT/HCPCS: 36902; 76937; 99152; 99153; C1725; C2623; Q9967; C1769

== ENCOUNTER → 2020-01-19 08:34 | Outpatient (CLI) | payer BC, MEDICARE, SELFPAY ==
[2019-12-23 15:00] VITALS: BMI 30.1
[2020-01-19 11:16] LABS: Cholesterol 154 mg/dL (200); High Density Lipoprotein 31 mg/dL; Thyroid Stim Hormone (TSH) 1.79 uIU/mL (0.358-3.74); Triglycerides 215 mg/dL; Very Low Density Lipoprotein 43 mg/dL (5-40)
== END ==
PROVIDERS: PCP Family Medicine; Referring Provider Family Medicine; Visit Provider Family Medicine
DX: E78.5 Hyperlipidemia, unspecified (principal); E03.9 Hypothyroidism, unspecified
CPT/HCPCS: 36415; 80061; 84439; 84443

== ENCOUNTER → 2020-02-03 | Outpatient (CLI) | payer BC, MEDICARE, SELFPAY ==
[2019-12-23 15:00] VITALS: BMI 30.1
[2020-02-03 10:26] LABS: Potassium 4.7 mmol/L (3.5-5.1)
== END | disposition home or self-care (01) ==
LOC: LABSPEC 10:08
PROVIDERS: PCP Family Medicine; Referring Provider Internal Medicine Nephrology; Visit Provider Internal Medicine Nephrology
DX: E87.5 Hyperkalemia (principal)
CPT/HCPCS: 84132

== ENCOUNTER → 2020-04-11 15:34 | Outpatient (CLI) | payer BC, MEDICARE, SELFPAY ==
[2019-12-23 15:00] VITALS: BMI 30.1
== END ==
PROVIDERS: PCP Family Medicine
DX: Z01.818 Encounter for other preprocedural examination (principal)
CPT/HCPCS: 86900; 86901

== ENCOUNTER → 2020-06-14 09:55 | Outpatient (CLI) | payer BC, MEDICARE, SELFPAY ==
[2019-12-23 15:00] VITALS: BMI 30.1
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
== END ==
PROVIDERS: PCP Family Medicine; Referring Provider Family Medicine; Visit Provider Family Medicine
DX: R01.1 Cardiac murmur, unspecified (principal)
CPT/HCPCS: 93306; Q9957; A4216; C8929

== ENCOUNTER 2020-07-25 08:15 | Outpatient (RCR) | payer BC, MEDICARE, SELFPAY ==
[2019-12-23 15:00] VITALS: BMI 30.1
[2020-07-25 08:42] LABS: Absolute Lymphocyte Count 0.03 X10^3/uL (0.83-4.51); Absolute Neutrophil Count 11.1 X10^3/uL (2.0-7.7); Basophil# 0.01 X10^3/uL; Basophil% 0.1 % (0-1); Differential Indicated SCAN CRITERIA MET; Eosinophil# 0.09 X10^3/uL; Eosinophils% 0.7 % (0-5); Hematocrit 29.5 % (40-54); Hemoglobin 9.4 g/dL (13.0-16.5); Lymphocyte # 0.03 X10^3/ul (4.0); Lymphocyte % 0.2 % (19-41); Mean Corp Hgb Conc 31.9 g/dL (32-36); Mean Corpuscular Hgb 30.1 pg (27.0-32.0); Mean Corpuscular Volume 94.6 fL (80-94); Mean Platelet Vol. 9.9 fl (6.2-12.0); Monocyte# 0.59 X10^3/uL; Monocyte% 4.9 % (0-10); NRBC Flagged by Analyzer 0 % (0-5); Neutrophil # 11.11 X10^3/uL (2.7-7.7); Neutrophil % 92.5 % (47-70); POSITIVE DIFFERENTIAL YES; Platelet Count 170 K/mm3 (150-450); RBC Distribution Width CV 14.1 % (11.6-14.6); RBC Distribution Width SD 48.1 fl (35.1-43.9); Red Blood Count 3.12 M/mm3 (4.6-6.2)
[2020-07-25 08:48] LABS: Protein, Urine (Random) 34.9 mg/dL (<11.9); Protein:Creat Ratio 1030 mg/g CRE (0-200)
[2020-07-25 09:00] LABS: Platelet Estimate ADEQUATE (ADEQ)
[2020-07-25 09:01] LABS: Hypochromasia 2+
[2020-07-25 09:03] LABS: Hemoglobin A1c 6.6 % (3.8-5.6)
[2020-07-25 09:10] LABS: ALB/GLOB Ratio 1.2 RATIO (0.9-2.4); AST(SGOT) 12 U/L (15-37); Alanine Aminotransfer ALT/SGPT 21 U/L (16-61); Albumin, Serum 3.3 g/dL (3.2-5.0); Alkaline Phosphatase 87 U/L (45-117); Anion Gap 6 (5-15); BUN 38 mg/dL (7-18); BUN/Creat Ratio 16.5 RATIO (10-20); Calcium,Total 8.8 mg/dL (8.5-10.1); Chloride 112 mmol/L (98-107); Cholesterol 168 mg/dL (200); EST Glomerular Filtration Rate 31 mL/min (>60); Est Glom Filt Rate - Afr Amer 38 mL/min (>60); Ferritin 1152 ng/mL (26-388); Globulin 2.7 g/dL (2.2-4.2); Glucose 133 mg/dL (74-106); High Density Lipoprotein 28 mg/dL; Iron 59 ug/dL (65-175); Iron Binding Capacity,Total 207 ug/dL (250-450); Magnesium 1.7 mg/dL (1.6-2.6); Phosphorus 2.3 mg/dL (2.5-4.9); Potassium 4.6 mmol/L (3.5-5.1); Sodium Level 140 mmol/L (136-145); Triglycerides 377 mg/dL; Uric Acid 5.6 mg/dL (3.5-7.2); Very Low Density Lipoprotein 75 mg/dL (5-40)
[2020-07-27 17:25] LABS: Tacrolimus (FK506) 8.3 ng/mL (2.0-20.0); Transferrin 178 mg/dL (177-329)
== END 2020-07-25 18:00 | disposition home or self-care (01) ==
LOC: LAB 08:15
PROVIDERS: PCP Family Medicine
DX: Z48.298 Encounter for aftercare following other organ transplant (principal); R79.9 Abnormal finding of blood chemistry, unspecified; D89.9 Disorder involving the immune mechanism, unspecified; D64.9 Anemia, unspecified; Z94.0 Kidney transplant status
CPT/HCPCS: 36415; 80053; 80061; 80197; 82570; 82728; 83036; 83540; 83550; 83735; 84100; 84156; 84466; 84550; 85025

== ENCOUNTER 2020-08-22 08:49 | Outpatient (RCR) | payer BC, MEDICARE, SELFPAY ==
[2019-12-23 15:00] VITALS: BMI 30.1
[2020-07-28 09:25] LABS: Absolute Neutrophil Count 11.6 X10^3/uL (2.0-7.7); Basophil# 0.01 X10^3/uL; Basophil% 0.1 % (0-1); Eosinophil# 0.11 X10^3/uL; Eosinophils% 0.9 % (0-5); Hematocrit 28.9 % (40-54); Hemoglobin 9.1 g/dL (13.0-16.5); Lymphocyte % 0.8 % (19-41); Mean Corp Hgb Conc 31.5 g/dL (32-36); Mean Corpuscular Hgb 29.9 pg (27.0-32.0); Mean Corpuscular Volume 95.1 fL (80-94); Monocyte% 4.8 % (0-10); NRBC Flagged by Analyzer 0 % (0-5); Neutrophil % 92.3 % (47-70); POSITIVE DIFFERENTIAL YES; Platelet Count 252 K/mm3 (150-450); RBC Distribution Width CV 14.2 % (11.6-14.6); RBC Distribution Width SD 49.4 fl (35.1-43.9); Red Blood Count 3.04 M/mm3 (4.6-6.2); White Blood Count 12.6 K/mm3 (4.4-11.0)
[2020-07-28 09:42] LABS: Differential Indicated SCAN CRITERIA MET
[2020-07-28 09:56] LABS: Anion Gap 7 (5-15); BUN 31 mg/dL (7-18); Chloride 110 mmol/L (98-107); Creatinine, Serum 2.28 mg/dL (0.70-1.30); EST Glomerular Filtration Rate 32 mL/min (>60); Est Glom Filt Rate - Afr Amer 38 mL/min (>60); Glucose 145 mg/dL (74-106); Potassium 4.9 mmol/L (3.5-5.1); Sodium Level 138 mmol/L (136-145)
[2020-07-31 05:46] LABS: Tacrolimus (FK506) 20.9 ng/mL (2.0-20.0)
[2020-08-02 09:30] LABS: Absolute Lymphocyte Count 0.13 X10^3/uL (0.83-4.51); Absolute Neutrophil Count 12.9 X10^3/uL (2.0-7.7); Basophil# 0.03 X10^3/uL; Basophil% 0.2 % (0-1); Eosinophil# 0.06 X10^3/uL; Eosinophils% 0.4 % (0-5); Hematocrit 30.5 % (40-54); Hemoglobin 9.5 g/dL (13.0-16.5); Lymphocyte # 0.13 X10^3/ul (4.0); Mean Corp Hgb Conc 31.1 g/dL (32-36); Mean Corpuscular Hgb 29.7 pg (27.0-32.0); Mean Corpuscular Volume 95.3 fL (80-94); Monocyte# 0.39 X10^3/uL; Monocyte% 2.9 % (0-10); NRBC Flagged by Analyzer 0 % (0-5); Neutrophil # 12.85 X10^3/uL (2.7-7.7); Neutrophil % 94.8 % (47-70); POSITIVE DIFFERENTIAL YES; Platelet Count 272 K/mm3 (150-450); RBC Distribution Width CV 14.2 % (11.6-14.6); RBC Distribution Width SD 49.2 fl (35.1-43.9); White Blood Count 13.6 K/mm3 (4.4-11.0)
[2020-08-02 09:35] LABS: Differential Indicated SCAN CRITERIA MET
[2020-08-02 09:45] LABS: Protein, Urine (Random) 36.7 mg/dL (<11.9); Protein:Creat Ratio 438 mg/g CRE (0-200)
[2020-08-02 09:57] LABS: AST(SGOT) 10 U/L (15-37); Alanine Aminotransfer ALT/SGPT 21 U/L (16-61); Albumin, Serum 3.4 g/dL (3.2-5.0); Alkaline Phosphatase 140 U/L (45-117); Anion Gap 7 (5-15); BUN 39 mg/dL (7-18); Chloride 115 mmol/L (98-107); Creatinine, Serum 2.82 mg/dL (0.70-1.30); EST Glomerular Filtration Rate 25 mL/min (>60); Est Glom Filt Rate - Afr Amer 30 mL/min (>60); Glucose 197 mg/dL (74-106); Magnesium 1.7 mg/dL (1.6-2.6); Phosphorus 3.1 mg/dL (2.5-4.9); Potassium 5.5 mmol/L (3.5-5.1); Sodium Level 138 mmol/L (136-145)
[2020-08-05 15:19] LABS: Tacrolimus (FK506) 31.3 ng/mL (2.0-20.0)
[2020-08-08 09:27] LABS: Absolute Lymphocyte Count 0.12 X10^3/uL (0.83-4.51); Absolute Neutrophil Count 4.1 X10^3/uL (2.0-7.7); Basophil# 0.03 X10^3/uL; Basophil% 0.7 % (0-1); Eosinophil# 0.05 X10^3/uL; Eosinophils% 1.1 % (0-5); Hematocrit 33.1 % (40-54); Hemoglobin 10.4 g/dL (13.0-16.5); Lymphocyte # 0.12 X10^3/ul (4.0); Lymphocyte % 2.7 % (19-41); Mean Corp Hgb Conc 31.4 g/dL (32-36); Mean Corpuscular Hgb 29.7 pg (27.0-32.0); Mean Corpuscular Volume 94.6 fL (80-94); Mean Platelet Vol. 10.1 fl (6.2-12.0); Monocyte# 0.17 X10^3/uL; Monocyte% 3.8 % (0-10); NRBC Flagged by Analyzer 0 % (0-5); Neutrophil # 4.11 X10^3/uL (2.7-7.7); POSITIVE DIFFERENTIAL YES; Platelet Count 248 K/mm3 (150-450); RBC Distribution Width CV 14.9 % (11.6-14.6); RBC Distribution Width SD 51.8 fl (35.1-43.9); White Blood Count 4.5 K/mm3 (4.4-11.0)
[2020-08-08 09:30] LABS: Protein, Urine (Random) 40.8 mg/dL (<11.9); Protein:Creat Ratio 526 mg/g CRE (0-200)
[2020-08-08 09:34] LABS: Differential Indicated SCAN CRITERIA MET
[2020-08-08 10:27] LABS: Differential Comment SCANNED
[2020-08-08 10:38] LABS: AST(SGOT) 9 U/L (15-37); Alanine Aminotransfer ALT/SGPT 23 U/L (16-61); Albumin, Serum 3.7 g/dL (3.2-5.0); Alkaline Phosphatase 197 U/L (45-117); Anion Gap 5 (5-15); BUN 39 mg/dL (7-18); Chloride 114 mmol/L (98-107); Cholesterol 113 mg/dL (200); Creatinine, Serum 2.24 mg/dL (0.70-1.30); EST Glomerular Filtration Rate 32 mL/min (>60); Est Glom Filt Rate - Afr Amer 39 mL/min (>60); Glucose 157 mg/dL (74-106); Magnesium 1.7 mg/dL (1.6-2.6); Phosphorus 2.4 mg/dL (2.5-4.9); Potassium 4.9 mmol/L (3.5-5.1); Sodium Level 139 mmol/L (136-145); Triglycerides 187 mg/dL
[2020-08-10 19:17] LABS: Tacrolimus (FK506) 14.9 ng/mL (2.0-20.0)
[2020-08-11 10:06] LABS: Absolute Lymphocyte Count 0.13 X10^3/uL (0.83-4.51); Absolute Neutrophil Count 4.9 X10^3/uL (2.0-7.7); Basophil# 0.03 X10^3/uL; Basophil% 0.6 % (0-1); Eosinophil# 0.06 X10^3/uL; Eosinophils% 1.1 % (0-5); Hematocrit 33.5 % (40-54); Hemoglobin 10.3 g/dL (13.0-16.5); Lymphocyte # 0.13 X10^3/ul (4.0); Lymphocyte % 2.4 % (19-41); Mean Corp Hgb Conc 30.7 g/dL (32-36); Mean Corpuscular Hgb 29.2 pg (27.0-32.0); Mean Corpuscular Volume 94.9 fL (80-94); Mean Platelet Vol. 10.4 fl (6.2-12.0); Monocyte% 3.7 % (0-10); NRBC Flagged by Analyzer 0 % (0-5); Neutrophil # 4.94 X10^3/uL (2.7-7.7); Neutrophil % 91.5 % (47-70); POSITIVE DIFFERENTIAL YES; Platelet Count 289 K/mm3 (150-450); RBC Distribution Width SD 52.1 fl (35.1-43.9); Red Blood Count 3.53 M/mm3 (4.6-6.2); White Blood Count 5.4 K/mm3 (4.4-11.0)
[2020-08-11 10:17] LABS: Differential Indicated SCAN CRITERIA MET
[2020-08-11 10:26] LABS: Hemoglobin A1c 6.3 % (3.8-5.6)
[2020-08-11 10:44] LABS: ALB/GLOB Ratio 1.1 RATIO (0.9-2.4); AST(SGOT) 6 U/L (15-37); Alanine Aminotransfer ALT/SGPT 19 U/L (16-61); Albumin, Serum 3.4 g/dL (3.2-5.0); Alkaline Phosphatase 202 U/L (45-117); Anion Gap 9 (5-15); BUN 34 mg/dL (7-18); BUN/Creat Ratio 14.8 RATIO (10-20); Calcium,Total 8.7 mg/dL (8.5-10.1); Chloride 114 mmol/L (98-107); Cholesterol 90 mg/dL (200); EST Glomerular Filtration Rate 31 mL/min (>60); Est Glom Filt Rate - Afr Amer 38 mL/min (>60); Globulin 3.1 g/dL (2.2-4.2); Glucose 172 mg/dL (74-106); High Density Lipoprotein 25 mg/dL; Potassium 4.6 mmol/L (3.5-5.1); Protein, Total 6.5 g/dL (6.4-8.2); Sodium Level 141 mmol/L (136-145); T4 Free Direct 1.27 ng/dL (0.76-1.46); Thyroid Stim Hormone (TSH) 0.52 uIU/mL (0.358-3.74); Triglycerides 128 mg/dL; Very Low Density Lipoprotein 26 mg/dL (5-40)
[2020-08-13 20:53] LABS: Tacrolimus (FK506) 27.9 ng/mL (2.0-20.0)
[2020-08-15 09:13] LABS: Absolute Neutrophil Count 5.6 X10^3/uL (2.0-7.7); Basophil# 0.02 X10^3/uL; Basophil% 0.3 % (0-1); Eosinophil# 0.02 X10^3/uL; Eosinophils% 0.3 % (0-5); Hematocrit 35.4 % (40-54); Lymphocyte % 1.7 % (19-41); Mean Corp Hgb Conc 31.1 g/dL (32-36); Mean Corpuscular Hgb 29.4 pg (27.0-32.0); Mean Corpuscular Volume 94.7 fL (80-94); Mean Platelet Vol. 9.7 fl (6.2-12.0); Monocyte# 0.21 X10^3/uL; Monocyte% 3.5 % (0-10); NRBC Flagged by Analyzer 0 % (0-5); Neutrophil # 5.58 X10^3/uL (2.7-7.7); POSITIVE DIFFERENTIAL YES; Platelet Count 289 K/mm3 (150-450); RBC Distribution Width CV 14.8 % (11.6-14.6); RBC Distribution Width SD 51.8 fl (35.1-43.9); Red Blood Count 3.74 M/mm3 (4.6-6.2)
[2020-08-15 09:14] LABS: Differential Indicated SCAN CRITERIA MET
[2020-08-15 09:49] LABS: AST(SGOT) 9 U/L (15-37); Albumin, Serum 3.6 g/dL (3.2-5.0); Alkaline Phosphatase 215 U/L (45-117); Anion Gap 5 (5-15); BUN 35 mg/dL (7-18); Calcium,Total 9.2 mg/dL (8.5-10.1); Chloride 115 mmol/L (98-107); Creatinine, Serum 2.34 mg/dL (0.70-1.30); EST Glomerular Filtration Rate 31 mL/min (>60); Est Glom Filt Rate - Afr Amer 37 mL/min (>60); Magnesium 1.5 mg/dL (1.6-2.6); Phosphorus 1.9 mg/dL (2.5-4.9); Sodium Level 138 mmol/L (136-145)
[2020-08-15 10:20] LABS: Protein, Urine (Random) 30.7 mg/dL (<11.9); Protein:Creat Ratio 398 mg/g CRE (0-200)
[2020-08-17 05:13] LABS: Tacrolimus (FK506) 23.3 ng/mL (2.0-20.0)
[2020-08-18 09:43] LABS: Absolute Lymphocyte Count 0.15 X10^3/uL (0.83-4.51); Absolute Neutrophil Count 6.9 X10^3/uL (2.0-7.7); Basophil# 0.02 X10^3/uL; Basophil% 0.3 % (0-1); Eosinophil# 0.03 X10^3/uL; Eosinophils% 0.4 % (0-5); Hemoglobin 10.5 g/dL (13.0-16.5); Lymphocyte # 0.15 X10^3/ul (4.0); Mean Corp Hgb Conc 30.9 g/dL (32-36); Mean Corpuscular Volume 93.9 fL (80-94); Mean Platelet Vol. 10.2 fl (6.2-12.0); Monocyte% 2.7 % (0-10); NRBC Flagged by Analyzer 0 % (0-5); Neutrophil # 6.93 X10^3/uL (2.7-7.7); Neutrophil % 93.5 % (47-70); POSITIVE DIFFERENTIAL YES; Platelet Count 242 K/mm3 (150-450); RBC Distribution Width CV 15.1 % (11.6-14.6); RBC Distribution Width SD 52.6 fl (35.1-43.9); Red Blood Count 3.62 M/mm3 (4.6-6.2); White Blood Count 7.4 K/mm3 (4.4-11.0)
[2020-08-18 10:04] LABS: Anion Gap 8 (5-15); BUN 39 mg/dL (7-18); Chloride 111 mmol/L (98-107); Cholesterol 106 mg/dL (200); EST Glomerular Filtration Rate 24 mL/min (>60); Est Glom Filt Rate - Afr Amer 29 mL/min (>60); Sodium Level 138 mmol/L (136-145); Triglycerides 185 mg/dL
[2020-08-18 10:20] LABS: Differential Comment SCANNED; Differential Indicated SCAN CRITERIA MET
[2020-08-18 10:30] LABS: Hepatitis B Surface Antigen Non-Reactive (Nonreactive)
[2020-08-20 14:08] LABS: HCV Quant. RNA PCR See Final Results IU/mL (.)
[2020-08-22 01:36] LABS: HIV-1 RNA by PCR, Quant. < 20 copies/mL (.)
[2020-08-22 01:41] LABS: HCV log 10 7.862 (.); Tacrolimus (FK506) 31.1 ng/mL (2.0-20.0)
[2020-08-22 09:31] LABS: Absolute Lymphocyte Count 0.19 X10^3/uL (0.83-4.51); Absolute Neutrophil Count 9.7 X10^3/uL (2.0-7.7); Basophil# 0.03 X10^3/uL; Basophil% 0.3 % (0-1); Eosinophil# 0.05 X10^3/uL; Eosinophils% 0.5 % (0-5); Hematocrit 35.1 % (40-54); Lymphocyte # 0.19 X10^3/ul (4.0); Lymphocyte % 1.9 % (19-41); Mean Corp Hgb Conc 31.3 g/dL (32-36); Mean Corpuscular Hgb 29.7 pg (27.0-32.0); Mean Corpuscular Volume 94.9 fL (80-94); Mean Platelet Vol. 10.8 fl (6.2-12.0); Monocyte# 0.24 X10^3/uL; Monocyte% 2.3 % (0-10); NRBC Flagged by Analyzer 0 % (0-5); Neutrophil # 9.66 X10^3/uL (2.7-7.7); POSITIVE DIFFERENTIAL YES; Platelet Count 216 K/mm3 (150-450); RBC Distribution Width CV 15.5 % (11.6-14.6); RBC Distribution Width SD 53.1 fl (35.1-43.9); White Blood Count 10.3 K/mm3 (4.4-11.0)
[2020-08-22 09:33] LABS: Differential Indicated SCAN CRITERIA MET
[2020-08-22 09:39] LABS: Protein, Urine (Random) 40.7 mg/dL (<11.9); Protein:Creat Ratio 308 mg/g CRE (0-200)
[2020-08-22 10:18] LABS: AST(SGOT) 7 U/L (15-37); Alanine Aminotransfer ALT/SGPT 20 U/L (16-61); Albumin, Serum 3.8 g/dL (3.2-5.0); Alkaline Phosphatase 214 U/L (45-117); Anion Gap 6 (5-15); BUN 34 mg/dL (7-18); Chloride 111 mmol/L (98-107); Creatinine, Serum 2.26 mg/dL (0.70-1.30); EST Glomerular Filtration Rate 32 mL/min (>60); Est Glom Filt Rate - Afr Amer 39 mL/min (>60); Ferritin 846 ng/mL (26-388); Iron 60 ug/dL (65-175); Iron Binding Capacity,Total 243 ug/dL (250-450); Magnesium 1.5 mg/dL (1.6-2.6); PERCENT IRON SATURATION 24.7 % (15.0-55.0); Phosphorus 1.7 mg/dL (2.5-4.9); Potassium 4.7 mmol/L (3.5-5.1); Sodium Level 137 mmol/L (136-145); Uric Acid 7.2 mg/dL (3.5-7.2)
[2020-08-22 10:26] LABS: Platelet Estimate ADEQUATE (ADEQ); Red Cell Morphology NORM C+C NORMAL (NORM C&C)
[2020-08-24 11:20] LABS: Tacrolimus (FK506) 11.9 ng/mL (2.0-20.0); Transferrin 201 mg/dL (177-329)
== END 2020-08-22 18:00 | disposition home or self-care (01) ==
LOC: LAB 08:49
PROVIDERS: PCP Family Medicine
DX: Z48.298 Encounter for aftercare following other organ transplant (principal); R79.9 Abnormal finding of blood chemistry, unspecified; D89.9 Disorder involving the immune mechanism, unspecified; D64.9 Anemia, unspecified; Z94.0 Kidney transplant status
CPT/HCPCS: 36415; 80051; 80053; 80061; 80197; 82040; 82247; 82310; 82465; 82565; 82570; 82728; 82947; 83036; 83540; 83550; 83735; 84075; 84100; 84156; 84439; 84443; 84450; 84460; 84466; 84478; 84520; 84550; 85025; 87340; 87522; 87536

== ENCOUNTER 2020-09-22 09:02 | Outpatient (RCR) | payer BC, MEDICARE, SELFPAY ==
[2019-12-23 15:00] VITALS: BMI 30.1
[2020-08-25 09:25] LABS: Absolute Lymphocyte Count 0.19 X10^3/uL (0.83-4.51); Absolute Neutrophil Count 8.3 X10^3/uL (2.0-7.7); Basophil# 0.04 X10^3/uL; Basophil% 0.4 % (0-1); Eosinophil# 0.03 X10^3/uL; Eosinophils% 0.3 % (0-5); Hematocrit 32.9 % (40-54); Hemoglobin 10.3 g/dL (13.0-16.5); Lymphocyte # 0.19 X10^3/ul (4.0); Lymphocyte % 2.1 % (19-41); Mean Corp Hgb Conc 31.3 g/dL (32-36); Mean Corpuscular Hgb 29.6 pg (27.0-32.0); Mean Corpuscular Volume 94.5 fL (80-94); Mean Platelet Vol. 10.4 fl (6.2-12.0); Monocyte# 0.25 X10^3/uL; Monocyte% 2.8 % (0-10); NRBC Flagged by Analyzer 0 % (0-5); Neutrophil # 8.33 X10^3/uL (2.7-7.7); Neutrophil % 93.3 % (47-70); POSITIVE DIFFERENTIAL YES; Platelet Count 212 K/mm3 (150-450); RBC Distribution Width CV 15.7 % (11.6-14.6); RBC Distribution Width SD 54.7 fl (35.1-43.9); Red Blood Count 3.48 M/mm3 (4.6-6.2); White Blood Count 8.9 K/mm3 (4.4-11.0)
[2020-08-25 09:29] LABS: Differential Indicated SCAN CRITERIA MET
[2020-08-25 09:55] LABS: Anion Gap 6 (5-15); BUN 31 mg/dL (7-18); Chloride 111 mmol/L (98-107); Creatinine, Serum 2.11 mg/dL (0.70-1.30); Differential Comment SCANNED; EST Glomerular Filtration Rate 34 mL/min (>60); Est Glom Filt Rate - Afr Amer 42 mL/min (>60); Glucose 142 mg/dL (74-106); Potassium 4.5 mmol/L (3.5-5.1); Sodium Level 139 mmol/L (136-145)
[2020-08-27 08:44] LABS: Tacrolimus (FK506) 16.6 ng/mL (2.0-20.0)
[2020-08-29 10:07] LABS: Absolute Lymphocyte Count 0.19 X10^3/uL (0.83-4.51); Absolute Neutrophil Count 7.8 X10^3/uL (2.0-7.7); Basophil# 0.03 X10^3/uL; Basophil% 0.4 % (0-1); Eosinophil# 0.03 X10^3/uL; Eosinophils% 0.4 % (0-5); Hematocrit 33.1 % (40-54); Hemoglobin 10.3 g/dL (13.0-16.5); Lymphocyte # 0.19 X10^3/ul (4.0); Lymphocyte % 2.3 % (19-41); Mean Corp Hgb Conc 31.1 g/dL (32-36); Mean Corpuscular Hgb 29.7 pg (27.0-32.0); Mean Corpuscular Volume 95.4 fL (80-94); Mean Platelet Vol. 10.2 fl (6.2-12.0); Monocyte# 0.27 X10^3/uL; Monocyte% 3.2 % (0-10); NRBC Flagged by Analyzer 0 % (0-5); Neutrophil # 7.75 X10^3/uL (2.7-7.7); POSITIVE DIFFERENTIAL YES; Platelet Count 224 K/mm3 (150-450); RBC Distribution Width SD 56.7 fl (35.1-43.9); Red Blood Count 3.47 M/mm3 (4.6-6.2); White Blood Count 8.4 K/mm3 (4.4-11.0)
[2020-08-29 10:08] LABS: Differential Indicated SCAN CRITERIA MET
[2020-08-29 10:21] LABS: Protein, Urine (Random) 37.1 mg/dL (<11.9); Protein:Creat Ratio 394 mg/g CRE (0-200)
[2020-08-29 10:27] LABS: Hypochromasia RARE; Platelet Estimate ADEQUATE (ADEQ)
[2020-08-29 10:29] LABS: Hemoglobin A1c 7.3 % (3.8-5.6)
[2020-08-29 10:40] LABS: Anion Gap 5 (5-15); BUN 28 mg/dL (7-18); Chloride 116 mmol/L (98-107); Creatinine, Serum 1.91 mg/dL (0.70-1.30); EST Glomerular Filtration Rate 39 mL/min (>60); Est Glom Filt Rate - Afr Amer 47 mL/min (>60); Ferritin 657 ng/mL (26-388); Iron 53 ug/dL (65-175); Iron Binding Capacity,Total 215 ug/dL (250-450); PERCENT IRON SATURATION 24.7 % (15.0-55.0); Potassium 4.4 mmol/L (3.5-5.1); Sodium Level 141 mmol/L (136-145)
[2020-08-31 08:03] LABS: PTHIN 120.4 pg/mL (18.4-80.1)
[2020-08-31 11:56] LABS: Tacrolimus (FK506) 13.5 ng/mL (2.0-20.0); Transferrin 173 mg/dL (177-329)
[2020-09-02 09:48] LABS: Absolute Lymphocyte Count 0.19 X10^3/uL (0.83-4.51); Absolute Neutrophil Count 6.1 X10^3/uL (2.0-7.7); Basophil# 0.03 X10^3/uL; Basophil% 0.4 % (0-1); Eosinophil# 0.03 X10^3/uL; Eosinophils% 0.4 % (0-5); Hematocrit 36.2 % (40-54); Lymphocyte # 0.19 X10^3/ul (4.0); Lymphocyte % 2.7 % (19-41); Mean Corp Hgb Conc 30.4 g/dL (32-36); Mean Corpuscular Volume 95.5 fL (80-94); Monocyte% 4.3 % (0-10); NRBC Flagged by Analyzer 0 % (0-5); Neutrophil # 6.08 X10^3/uL (2.7-7.7); Neutrophil % 87.3 % (47-70); POSITIVE DIFFERENTIAL YES; Platelet Count 249 K/mm3 (150-450); RBC Distribution Width CV 15.8 % (11.6-14.6); RBC Distribution Width SD 55.3 fl (35.1-43.9); Red Blood Count 3.79 M/mm3 (4.6-6.2)
[2020-09-02 10:03] LABS: Anion Gap 8 (5-15); BUN 36 mg/dL (7-18); Chloride 113 mmol/L (98-107); Creatinine, Serum 2.27 mg/dL (0.70-1.30); EST Glomerular Filtration Rate 32 mL/min (>60); Est Glom Filt Rate - Afr Amer 38 mL/min (>60); Glucose 151 mg/dL (74-106); Potassium 4.8 mmol/L (3.5-5.1); Sodium Level 139 mmol/L (136-145)
[2020-09-02 10:14] LABS: Differential Indicated SCAN CRITERIA MET
[2020-09-04 12:27] LABS: Tacrolimus (FK506) 14.1 ng/mL (2.0-20.0)
[2020-09-05 09:48] LABS: Hematocrit 37.2 % (40-54); Hemoglobin 11.4 g/dL (13.0-16.5); Mean Corp Hgb Conc 30.6 g/dL (32-36); Mean Corpuscular Hgb 29.2 pg (27.0-32.0); Mean Corpuscular Volume 95.4 fL (80-94); Mean Platelet Vol. 10.3 fl (6.2-12.0); POSITIVE COUNT YES; POSITIVE DIFFERENTIAL YES; POSITIVE MORPHOLOGY YES; Platelet Count 262 K/mm3 (150-450); RBC Distribution Width SD 55.6 fl (35.1-43.9); White Blood Count 6.7 K/mm3 (4.4-11.0)
[2020-09-05 09:51] LABS: Differential Indicated MANUAL DIFF
[2020-09-05 10:24] LABS: Eosinophil 1 % (0-5); Lymphocyte 2 % (19-41); Metamyelocyte 4 % (0-1); Monocyte 5 % (0-10); Neutrophil-Band 11 % (0-5); Neutrophil-Segmented 77 % (47-70); Total Cells Counted 100 (MANUAL DIFF)
[2020-09-05 10:26] LABS: Absolute Lymphocyte Count 0.13 X10^3/uL (0.83-4.51); Absolute Neutrophil Count 5.9 X10^3/uL (2.0-7.7)
[2020-09-05 10:27] LABS: Anisocytosis 1+; Platelet Estimate ADEQUATE (ADEQ); Red Cell Morphology N CHROM NORMAL (NORM C&C)
[2020-09-05 10:41] LABS: ALB/GLOB Ratio 1.2 RATIO (0.9-2.4); AST(SGOT) 6 U/L (15-37); Alanine Aminotransfer ALT/SGPT 14 U/L (16-61); Albumin, Serum 3.6 g/dL (3.2-5.0); Alkaline Phosphatase 190 U/L (45-117); Anion Gap 8 (5-15); BUN 31 mg/dL (7-18); BUN/Creat Ratio 14.9 RATIO (10-20); Chloride 109 mmol/L (98-107); Cholesterol 109 mg/dL (200); Creatinine, Serum 2.08 mg/dL (0.70-1.30); EST Glomerular Filtration Rate 35 mL/min (>60); Est Glom Filt Rate - Afr Amer 42 mL/min (>60); Globulin 2.9 g/dL (2.2-4.2); Glucose 191 mg/dL (74-106); Magnesium 1.5 mg/dL (1.6-2.6); Phosphorus 2.3 mg/dL (2.5-4.9); Potassium 4.2 mmol/L (3.5-5.1); Protein, Total 6.5 g/dL (6.4-8.2); Sodium Level 138 mmol/L (136-145); Triglycerides 130 mg/dL
[2020-09-05 11:00] LABS: Protein, Urine (Random) 37.6 mg/dL (<11.9); Protein:Creat Ratio 401 mg/g CRE (0-200)
[2020-09-06 13:44] LABS: Pathologist Review Reviewed
[2020-09-07 16:10] LABS: Tacrolimus (FK506) 10.2 ng/mL (2.0-20.0)
[2020-09-08 10:15] LABS: Hematocrit 35.7 % (40-54); Hemoglobin 10.9 g/dL (13.0-16.5); Mean Corp Hgb Conc 30.5 g/dL (32-36); Mean Corpuscular Hgb 29.5 pg (27.0-32.0); Mean Corpuscular Volume 96.7 fL (80-94); Mean Platelet Vol. 10.5 fl (6.2-12.0); POSITIVE COUNT YES; POSITIVE DIFFERENTIAL YES; POSITIVE MORPHOLOGY YES; Platelet Count 249 K/mm3 (150-450); RBC Distribution Width CV 16.1 % (11.6-14.6); RBC Distribution Width SD 57.5 fl (35.1-43.9); Red Blood Count 3.69 M/mm3 (4.6-6.2); White Blood Count 6.3 K/mm3 (4.4-11.0)
[2020-09-08 10:16] LABS: Differential Indicated MANUAL DIFF
[2020-09-08 10:38] LABS: Anion Gap 7 (5-15); BUN 27 mg/dL (7-18); Chloride 111 mmol/L (98-107); Creatinine, Serum 1.81 mg/dL (0.70-1.30); EST Glomerular Filtration Rate 41 mL/min (>60); Est Glom Filt Rate - Afr Amer 50 mL/min (>60); Glucose 160 mg/dL (74-106); Potassium 4.1 mmol/L (3.5-5.1); Sodium Level 139 mmol/L (136-145)
[2020-09-08 10:46] LABS: Lymphocyte 3 % (19-41); Monocyte 5 % (0-10); Myelocyte 1 (0-0); Neutrophil-Band 3 % (0-5); Neutrophil-Segmented 88 % (47-70); Platelet Estimate ADEQUATE (ADEQ); Red Cell Morphology NORM C+C NORMAL (NORM C&C); Total Cells Counted 100 (MANUAL DIFF)
[2020-09-08 10:47] LABS: Absolute Lymphocyte Count 0.19 X10^3/uL (0.83-4.51); Absolute Neutrophil Count 5.8 X10^3/uL (2.0-7.7); Lymphocyte # 0.19 X10^3/ul (4.0); Neutrophil # 5.76 X10^3/uL (2.7-7.7)
[2020-09-08 14:02] LABS: Pathologist Review Reviewed
[2020-09-10 10:18] LABS: Tacrolimus (FK506) 10.5 ng/mL (2.0-20.0)
[2020-09-12 09:26] LABS: Hematocrit 37.7 % (40-54); Hemoglobin 11.6 g/dL (13.0-16.5); Mean Corp Hgb Conc 30.8 g/dL (32-36); Mean Corpuscular Hgb 29.4 pg (27.0-32.0); Mean Corpuscular Volume 95.4 fL (80-94); Mean Platelet Vol. 10.3 fl (6.2-12.0); POSITIVE COUNT YES; POSITIVE DIFFERENTIAL YES; POSITIVE MORPHOLOGY YES; Platelet Count 206 K/mm3 (150-450); RBC Distribution Width CV 15.9 % (11.6-14.6); RBC Distribution Width SD 56.2 fl (35.1-43.9); Red Blood Count 3.95 M/mm3 (4.6-6.2); White Blood Count 4.5 K/mm3 (4.4-11.0)
[2020-09-12 09:32] LABS: Differential Indicated MANUAL DIFF
[2020-09-12 09:36] LABS: Protein, Urine (Random) 29.9 mg/dL (<11.9); Protein:Creat Ratio 431 mg/g CRE (0-200)
[2020-09-12 09:51] LABS: Hypochromasia RARE; Lymphocyte 1 % (19-41); Metamyelocyte 1 % (0-1); Monocyte 5 % (0-10); Neutrophil-Band 4 % (0-5); Neutrophil-Segmented 89 % (47-70); Platelet Estimate ADEQUATE (ADEQ); Polychromasia RARE; Total Cells Counted 100 (MANUAL DIFF)
[2020-09-12 09:52] LABS: Absolute Lymphocyte Count 0.04 X10^3/uL (0.83-4.51); Absolute Neutrophil Count 4.1 X10^3/uL (2.0-7.7)
[2020-09-12 10:21] LABS: AST(SGOT) 9 U/L (15-37); Alanine Aminotransfer ALT/SGPT 17 U/L (16-61); Albumin, Serum 3.5 g/dL (3.2-5.0); Alkaline Phosphatase 329 U/L (45-117); Anion Gap 10 (5-15); BUN 31 mg/dL (7-18); Calcium,Total 8.6 mg/dL (8.5-10.1); Chloride 107 mmol/L (98-107); Creatinine, Serum 1.85 mg/dL (0.70-1.30); EST Glomerular Filtration Rate 40 mL/min (>60); Est Glom Filt Rate - Afr Amer 49 mL/min (>60); Glucose 159 mg/dL (74-106); Magnesium 1.7 mg/dL (1.6-2.6); Phosphorus 2.7 mg/dL (2.5-4.9); Potassium 4.5 mmol/L (3.5-5.1); Sodium Level 138 mmol/L (136-145)
[2020-09-12 14:15] LABS: Pathologist Review Reviewed
[2020-09-14 12:19] LABS: Tacrolimus (FK506) 7.3 ng/mL (2.0-20.0)
[2020-09-15 10:26] LABS: Hematocrit 38.6 % (40-54); Hemoglobin 11.3 g/dL (13.0-16.5); Mean Corp Hgb Conc 29.3 g/dL (32-36); Mean Corpuscular Hgb 28.5 pg (27.0-32.0); Mean Corpuscular Volume 97.5 fL (80-94); Mean Platelet Vol. 10.7 fl (6.2-12.0); POSITIVE COUNT YES; POSITIVE DIFFERENTIAL YES; POSITIVE MORPHOLOGY YES; Platelet Count 189 K/mm3 (150-450); RBC Distribution Width CV 15.6 % (11.6-14.6); RBC Distribution Width SD 56.1 fl (35.1-43.9); Red Blood Count 3.96 M/mm3 (4.6-6.2); White Blood Count 2.6 K/mm3 (4.4-11.0)
[2020-09-15 10:30] LABS: Differential Indicated MANUAL DIFF
[2020-09-15 10:51] LABS: Anion Gap 7 (5-15); BUN 25 mg/dL (7-18); Chloride 109 mmol/L (98-107); Creatinine, Serum 1.76 mg/dL (0.70-1.30); EST Glomerular Filtration Rate 42 mL/min (>60); Est Glom Filt Rate - Afr Amer 51 mL/min (>60); Glucose 234 mg/dL (74-106); Potassium 4.4 mmol/L (3.5-5.1); Sodium Level 137 mmol/L (136-145)
[2020-09-15 11:05] LABS: Eosinophil 2 % (0-5); Lymphocyte 5 % (19-41); Metamyelocyte 2 % (0-1); Monocyte 6 % (0-10); Neutrophil-Band 3 % (0-5); Neutrophil-Segmented 81 % (47-70); Promyelocyte 1 (0-0); Total Cells Counted 100 (MANUAL DIFF)
[2020-09-15 11:06] LABS: Hypochromasia RARE; Platelet Estimate ADEQUATE (ADEQ)
[2020-09-15 11:07] LABS: Absolute Lymphocyte Count 0.13 X10^3/uL (0.83-4.51); Absolute Neutrophil Count 2.2 X10^3/uL (2.0-7.7)
[2020-09-16 13:54] LABS: Pathologist Review Reviewed
[2020-09-19 09:26] LABS: Differential Indicated MANUAL DIFF; Hematocrit 41.3 % (40-54); Hemoglobin 12.5 g/dL (13.0-16.5); Mean Corp Hgb Conc 30.3 g/dL (32-36); Mean Corpuscular Hgb 28.7 pg (27.0-32.0); Mean Corpuscular Volume 94.9 fL (80-94); Mean Platelet Vol. 10.3 fl (6.2-12.0); POSITIVE COUNT YES; POSITIVE DIFFERENTIAL YES; POSITIVE MORPHOLOGY YES; Platelet Count 189 K/mm3 (150-450); RBC Distribution Width CV 15.4 % (11.6-14.6); RBC Distribution Width SD 53.4 fl (35.1-43.9); Red Blood Count 4.35 M/mm3 (4.6-6.2); White Blood Count 1.5 K/mm3 (4.4-11.0)
[2020-09-19 09:38] LABS: Protein, Urine (Random) 35.9 mg/dL (<11.9); Protein:Creat Ratio 463 mg/g CRE (0-200)
[2020-09-19 10:01] LABS: Lymphocyte 7 % (19-41); Metamyelocyte 3 % (0-1); Monocyte 23 % (0-10); Neutrophil-Band 7 % (0-5); Neutrophil-Segmented 60 % (47-70); Total Cells Counted 100 (MANUAL DIFF)
[2020-09-19 10:03] LABS: Platelet Estimate ADEQUATE (ADEQ)
[2020-09-19 10:04] LABS: Absolute Lymphocyte Count 0.11 X10^3/uL (0.83-4.51)
[2020-09-19 10:12] LABS: AST(SGOT) 9 U/L (15-37); Alanine Aminotransfer ALT/SGPT 16 U/L (16-61); Albumin, Serum 3.4 g/dL (3.2-5.0); Alkaline Phosphatase 377 U/L (45-117); Anion Gap 8 (5-15); BUN 28 mg/dL (7-18); Calcium,Total 8.9 mg/dL (8.5-10.1); Chloride 109 mmol/L (98-107); Cholesterol 148 mg/dL (200); Creatinine, Serum 1.89 mg/dL (0.70-1.30); EST Glomerular Filtration Rate 39 mL/min (>60); Est Glom Filt Rate - Afr Amer 47 mL/min (>60); Ferritin 532 ng/mL (26-388); Glucose 177 mg/dL (74-106); High Density Lipoprotein 36 mg/dL; Iron 44 ug/dL (65-175); Iron Binding Capacity,Total 232 ug/dL (250-450); Magnesium 1.6 mg/dL (1.6-2.6); Phosphorus 2.9 mg/dL (2.5-4.9); Potassium 4.3 mmol/L (3.5-5.1); Sodium Level 139 mmol/L (136-145); Triglycerides 175 mg/dL; Uric Acid 6.7 mg/dL (3.5-7.2); Very Low Density Lipoprotein 35 mg/dL (5-40)
[2020-09-19 10:27] LABS: Tacrolimus (FK506) 9.3 ng/mL (2.0-20.0)
[2020-09-20 14:26] LABS: Pathologist Review Reviewed
[2020-09-21 15:09] LABS: Tacrolimus (FK506) 5.7 ng/mL (2.0-20.0); Transferrin 187 mg/dL (177-329)
[2020-09-22 09:32] LABS: Basophil# 0.04 X10^3/uL; Eosinophil# 0.04 X10^3/uL; Hematocrit 40.3 % (40-54); Hemoglobin 12.2 g/dL (13.0-16.5); Mean Corp Hgb Conc 30.3 g/dL (32-36); Mean Corpuscular Hgb 28.8 pg (27.0-32.0); Mean Corpuscular Volume 95.3 fL (80-94); Mean Platelet Vol. 10.3 fl (6.2-12.0); Monocyte# 0.14 X10^3/uL; NRBC Flagged by Analyzer 0 % (0-5); POSITIVE COUNT YES; POSITIVE DIFFERENTIAL YES; POSITIVE MORPHOLOGY YES; Platelet Count 207 K/mm3 (150-450); RBC Distribution Width CV 15.1 % (11.6-14.6); RBC Distribution Width SD 52.9 fl (35.1-43.9); Red Blood Count 4.23 M/mm3 (4.6-6.2)
[2020-09-22 09:38] LABS: Differential Indicated SCAN CRITERIA MET; White Blood Count 1.3 K/mm3 (4.4-11.0)
[2020-09-22 09:52] LABS: Anion Gap 7 (5-15); BUN 25 mg/dL (7-18); Chloride 111 mmol/L (98-107); Creatinine, Serum 1.84 mg/dL (0.70-1.30); EST Glomerular Filtration Rate 40 mL/min (>60); Est Glom Filt Rate - Afr Amer 49 mL/min (>60); Glucose 136 mg/dL (74-106); Potassium 4.4 mmol/L (3.5-5.1); Sodium Level 140 mmol/L (136-145)
[2020-09-22 10:03] LABS: Basophil 1 % (0-1); Eosinophil 2 % (0-5); Lymphocyte 11 % (19-41); Metamyelocyte 3 % (0-1); Monocyte 16 % (0-10); Neutrophil-Band 15 % (0-5); Neutrophil-Segmented 50 % (47-70); Promyelocyte 2 (0-0); Total Cells Counted 100 (MANUAL DIFF)
[2020-09-22 10:07] LABS: Platelet Estimate ADEQUATE (ADEQ); Red Cell Morphology NORM C+C NORMAL (NORM C&C)
[2020-09-22 10:08] LABS: Scan Smear per Review Criteria MANUAL DIFF
[2020-09-23 04:28] LABS: Absolute Neutrophil Count 0.9 X10^3/uL (2.0-7.7); Lymphocyte # 0.15 X10^3/ul (4.0); Neutrophil # 0.86 X10^3/uL (2.7-7.7)
[2020-09-23 04:29] LABS: Absolute Lymphocyte Count 0.15 X10^3/uL (0.83-4.51)
[2020-09-23 13:23] LABS: Pathologist Review Reviewed
== END 2020-09-22 18:00 | disposition home or self-care (01) ==
LOC: LAB 09:02
PROVIDERS: PCP Family Medicine
DX: Z94.0 Kidney transplant status (principal); Z48.298 Encounter for aftercare following other organ transplant; R79.9 Abnormal finding of blood chemistry, unspecified; D89.9 Disorder involving the immune mechanism, unspecified; D64.9 Anemia, unspecified
CPT/HCPCS: 36415; 80051; 80053; 80061; 80197; 82040; 82247; 82310; 82465; 82565; 82570; 82728; 82947; 83036; 83540; 83550; 83735; 83970; 84075; 84100; 84156; 84450; 84460; 84466; 84478; 84520; 84550; 85025

== ENCOUNTER 2020-10-15 09:24 | Emergency (ER) | payer BC, MEDICARE, SELFPAY ==
[2019-12-23 15:00] VITALS: BMI 30.1
[2020-10-15] VITALS (9 sets, daily range): BP systolic 147–163; BP diastolic 60–74; PULSE 61–85; RESP 16–25; TEMP 36.6–37.1; O2SAT 93–99; BMI 28.1
--- NOTE | 2020-10-15 09:57 | EKG12_ITS ---
Test Reason : CP Blood Pressure : / mmHG Vent. Rate : 069 BPM Atrial Rate : 069 BPM P-R Int : 136 ms QRS Dur : 070 ms QT Int : 386 ms P-R-T Axes : 047 004 051 degrees QTc Int : 413 ms Normal sinus rhythm Normal ECG Confirmed by WISAM COLON, GERARDO ([id number]), design editor ZEB GONZALEZ ([id number]) on 10/19/2020 10:28:25 AM Referred By: KATHY Confirmed By:GERARDO JOEL MD
--- NOTE | 2020-10-15 10:05 | RAD_ITS ---
STUDY: X-RAY CHEST REASON FOR EXAM: Male, 60 years old. CHEST PAIN, SOB, FEVER AND LOW BACK PAIN. HX OF KIDNEY TRANSPLANT 07/17/2020. TECHNIQUE: AP upright portable view. COMPARISON: 04/14/2019. FINDINGS: Interval removal of right IJ approach dialysis catheter. Pulmonary hypoinflation. The lungs are clear. There is no demonstrated pleural abnormality. Normal size heart. Normal mediastinum and kieran. Normal visualized pulmonary arteries. Normal visualized aortic arch and descending thoracic aorta. Normal visualized thoracic spine. Old left midclavicular fracture with overriding of the fracture fragments. Old fractures of the left lower lateral rib cage. Normal right clavicle, shoulders and right rib cage. There is no demonstrated abnormality of the visualized soft tissue structures of the upper abdomen. RAD/Chest 1 View (Portable) IMPRESSION: 1. No acute cardiopulmonary pathology with removal of right IJ approach dialysis catheter. 2. Interval development of old fracture of the left clavicle with overriding of the fracture fragments and old fractures of the left lower lateral rib cage. 3. No other additional findings or changes compared to 04/14/2019. Electronically Signed: Tung Vance MD at 10:46 EST , Service support ,
[2020-10-15] MEDS: Aspirin 81 MG TAB.CHEW 324 MG PO (10:06)
--- NOTE | 2020-10-15 10:15 | ED.VISSUMM ---
- ER Visit Summary Date of Service: 10/15/20 Chief Complaint: Chest pain History of Present Illness: The patient is a 60 M who presents with left upper chest pain that began yesterday. Patient states the pain has been constant. Patient describes the pain as sharp. Patient states the pain does radiate into his back. Patient states that it is worse with laying flat and better with standing up. Patient admits to a fever of 101.4. Patient denies any nausea or vomiting. Patient denies any shortness of breath or cough patient denies any diaphoresis. Patient had a kidney transplant on 07/17/2020. Patient states he contacted the move coordinator at [facility] yesterday evening and was told to come to the emergency department if his pain persisted. Physical Examination: Vital signs are stable. Patient is afebrile. Patient is in no acute distress. Oral mucosa is pink and moist. Neck is supple. Trachea is midline. There is no JVD. Heart was regular rate and rhythm. Lungs are clear and equal bilaterally. Abdomen is soft. Bowel sounds are normal. There is no tenderness. Cranial nerves II through XII are intact. There are no focal motor or sensory deficits noted. Extremities are intact. There is no calf tenderness or edema. Test Results: EKG shows a normal sinus rhythm with a rate of 69. There are no acute ST or T wave changes. This was unchanged compared to previous EKG dated 04/14/2019. CBC shows a white blood cell count of 0.6. This is consistent with prior results. BUN was 26 and creatinine was 2.36. These were also consistent with prior results. Urinalysis was normal. Troponin was normal. Emergency Department Course and Treatment: Patient was given aspirin and sublingual nitroglycerin here. Patient is feeling better on reevaluation. Patient was advised of his findings. Patient has a HEART score of 3. Patient was advised that this is low risk for acute cardiac event. Patient was instructed to follow-up with his primary care physician in 5 to 7 days. Patient understood and was agreeable with the plan. All questions were answered. Disposition: Discharge home Impression: Chest pain of uncertain etiology This note was generated with [employer] software. It may contain incorrect words, spelling, and punctuation that were not noted in review of the chart prior to signing ED Disposition - Plan for ED Patient: Disposition: Home or Assisted Living Diagnosis: Chest pain of uncertain etiology Instructions: ED Chest Pain Atypical Unkn Cause Referrals: Marques Casanova MD [Primary Care Provider] - 5-7 Days
[2020-10-15 10:22] LABS: Absolute Lymphocyte Count 0.22 X10^3/uL (0.83-4.51); Absolute Neutrophil Count 0.1 X10^3/uL (2.0-7.7); Basophil# 0.05 X10^3/uL; Basophil% 8.2 % (0-1); Eosinophil# 0.02 X10^3/uL; Eosinophils% 3.3 % (0-5); Hematocrit 39.7 % (40-54); Hemoglobin 12.3 g/dL (13.0-16.5); Lymphocyte # 0.22 X10^3/ul (4.0); Lymphocyte % 36.1 % (19-41); Mean Corpuscular Hgb 28.7 pg (27.0-32.0); Mean Corpuscular Volume 92.8 fL (80-94); Mean Platelet Vol. 10.1 fl (6.2-12.0); Monocyte% 32.8 % (0-10); NRBC Flagged by Analyzer 0 % (0-5); Neutrophil # 0.12 X10^3/uL (2.7-7.7); Neutrophil % 19.6 % (47-70); POSITIVE COUNT YES; POSITIVE DIFFERENTIAL YES; POSITIVE MORPHOLOGY YES; Platelet Count 146 K/mm3 (150-450); RBC Distribution Width CV 14.2 % (11.6-14.6); RBC Distribution Width SD 48.1 fl (35.1-43.9); Red Blood Count 4.28 M/mm3 (4.6-6.2); White Blood Count 0.6 K/mm3 (4.4-11.0)
[2020-10-15] MEDS: Nitroglycerin SL (ED/IMG/CATH) 0.4 MG TABLET SUBLINGUAL ×2 (10:22→10:57)
[2020-10-15 10:29] LABS: International Normalized Ratio 1.2; Prothrombin Time (Protime)PT. 14.5 SECONDS (11.7-14.9)
[2020-10-15 10:30] LABS: Partial Thromboplast Time 33.4 Seconds (24.1-36.2)
[2020-10-15 10:38] LABS: AST(SGOT) 4 U/L (15-37); Alanine Aminotransfer ALT/SGPT 17 U/L (16-61); Albumin, Serum 3.3 g/dL (3.2-5.0); Alkaline Phosphatase 380 U/L (45-117); Anion Gap 7 (5-15); BUN 26 mg/dL (7-18); Calcium,Total 8.9 mg/dL (8.5-10.1); Chloride 112 mmol/L (98-107); Creatinine, Serum 2.36 mg/dL (0.70-1.30); EST Glomerular Filtration Rate 30 mL/min (>60); Est Glom Filt Rate - Afr Amer 37 mL/min (>60); Estimated Creatinine Clearance 35.23 ml/min; Globulin 3.2 g/dL (2.2-4.2); Glucose 202 mg/dL (74-106); Potassium 4.2 mmol/L (3.5-5.1); Protein, Total 6.5 g/dL (6.4-8.2); Sodium Level 139 mmol/L (136-145)
[2020-10-15 10:40] LABS: Lactic Acid 1.2 mmol/L (0.4-1.9)
[2020-10-15 10:41] LABS: Differential Indicated SCAN CRITERIA MET
[2020-10-15 11:20] LABS: Atypical Lymphocyte 1+ %; Differential Comment SCANNED; Reactive Lymphocyte 1+
[2020-10-15 12:03] LABS: Bacteria 0 SEEN /hpf (None Seen); Mucous, Urine 0 SEEN /hpf (<or=2+); Squamous Epithelial Cells - UA 0 SEEN /hpf (0-5)
[2020-10-15 12:05] LABS: Color, Urine Yellow (Yellow); Glucose, Dipstick Normal (Normal); Ketone-Dipstick Negative (Negative); Leukocyte Esterase-Dipstick Negative /ul (Negative); Nitrite-Dipstick Negative (Negative); Occult Blood-Urine Negative /ul (Negative); Protein-Dipstick 30 mg/dl (Negative); Urine Bilirubin Dipstick Negative (Negative); Urine Clarity Clear (Clear); Urine Urobilinogen Normal (Normal); Urine pH 6.5 (5.0 - 8.0)
[2020-10-15 12:17] LABS: Red Blood Cells-Urine 0-5 SEEN /hpf (0-5); White Blood Cells 0-5 SEEN /hpf (0-5)
[2020-10-17 13:29] LABS: Pathologist Review Reviewed
== END 2020-10-15 15:29 | disposition home or self-care (01) ==
PROVIDERS: Emergency Provider Emergency Medicine; PCP Family Medicine
DX: R07.9 Chest pain, unspecified (principal); I50.9 Heart failure, unspecified; E11.22 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 diabetic chronic kidney disease; N18.9 Chronic kidney disease, unspecified; Z94.0 Kidney transplant status; Z79.82 Long term (current) use of aspirin; Z79.4 Long term (current) use of insulin; Z79.899 Other long term (current) drug therapy
CPT/HCPCS: 36415; 71045; 80053; 81001; 83605; 84484; 85025; 85610; 85730; 87040; 87086; 87088; 93005; 99285; A4216

== ENCOUNTER → 2020-10-18 | Outpatient (CLI) | payer BC, MEDICARE, SELFPAY ==
[2020-10-15 09:25] VITALS: BMI 28.1
== END | disposition home or self-care (01) ==
PROVIDERS: Visit Provider Family Medicine
DX: B34.9 Viral infection, unspecified (principal)
CPT/HCPCS: 87633; 87635; U0003

== ENCOUNTER 2020-10-24 09:22 | Outpatient (RCR) | payer BC, MEDICARE, SELFPAY ==
[2019-12-23 15:00] VITALS: BMI 30.1
[2020-09-26 09:09] LABS: Hematocrit 41.4 % (40-54); Hemoglobin 12.4 g/dL (13.0-16.5); Mean Corpuscular Hgb 28.4 pg (27.0-32.0); Mean Corpuscular Volume 94.7 fL (80-94); Mean Platelet Vol. 10.1 fl (6.2-12.0); POSITIVE COUNT YES; POSITIVE DIFFERENTIAL YES; POSITIVE MORPHOLOGY YES; Platelet Count 202 K/mm3 (150-450); RBC Distribution Width CV 14.9 % (11.6-14.6); RBC Distribution Width SD 53.1 fl (35.1-43.9); Red Blood Count 4.37 M/mm3 (4.6-6.2); White Blood Count 2.1 K/mm3 (4.4-11.0)
[2020-09-26 09:14] LABS: Differential Indicated MANUAL DIFF
[2020-09-26 09:44] LABS: AST(SGOT) 11 U/L (15-37); Alanine Aminotransfer ALT/SGPT 16 U/L (16-61); Albumin, Serum 3.6 g/dL (3.2-5.0); Alkaline Phosphatase 434 U/L (45-117); Anion Gap 10 (5-15); BUN 23 mg/dL (7-18); Calcium,Total 9.3 mg/dL (8.5-10.1); Chloride 113 mmol/L (98-107); EST Glomerular Filtration Rate 35 mL/min (>60); Est Glom Filt Rate - Afr Amer 42 mL/min (>60); Glucose 162 mg/dL (74-106); Magnesium 1.5 mg/dL (1.6-2.6); Phosphorus 2.5 mg/dL (2.5-4.9); Potassium 4.5 mmol/L (3.5-5.1); Sodium Level 140 mmol/L (136-145)
[2020-09-26 09:48] LABS: Eosinophil 1 % (0-5); Lymphocyte 13 % (19-41); Metamyelocyte 5 % (0-1); Monocyte 13 % (0-10); Neutrophil-Band 10 % (0-5); Neutrophil-Segmented 58 % (47-70); Nucleated Red Bld Cells,Manual 1 % (0-5); Platelet Estimate ADEQUATE (ADEQ); Red Cell Morphology NORM C+C NORMAL (NORM C&C); Total Cells Counted 100 (MANUAL DIFF)
[2020-09-26 09:49] LABS: Absolute Lymphocyte Count 0.27 X10^3/uL (0.83-4.51); Absolute Neutrophil Count 1.4 X10^3/uL (2.0-7.7); Lymphocyte # 0.27 X10^3/ul (4.0); Neutrophil # 1.43 X10^3/uL (2.7-7.7)
[2020-09-26 09:59] LABS: Protein, Urine (Random) 38.5 mg/dL (<11.9); Protein:Creat Ratio 456 mg/g CRE (0-200)
[2020-09-27 14:45] LABS: Pathologist Review Reviewed
[2020-09-28 09:28] LABS: Tacrolimus (FK506) 6.6 ng/mL (2.0-20.0)
[2020-09-29 09:32] LABS: Hematocrit 39.3 % (40-54); Hemoglobin 11.9 g/dL (13.0-16.5); Mean Corp Hgb Conc 30.3 g/dL (32-36); Mean Corpuscular Hgb 28.7 pg (27.0-32.0); Mean Corpuscular Volume 94.7 fL (80-94); Mean Platelet Vol. 10.4 fl (6.2-12.0); POSITIVE COUNT YES; POSITIVE DIFFERENTIAL YES; POSITIVE MORPHOLOGY YES; Platelet Count 208 K/mm3 (150-450); RBC Distribution Width CV 14.7 % (11.6-14.6); RBC Distribution Width SD 51.7 fl (35.1-43.9); Red Blood Count 4.15 M/mm3 (4.6-6.2); White Blood Count 2.3 K/mm3 (4.4-11.0)
[2020-09-29 09:33] LABS: Differential Indicated MANUAL DIFF
[2020-09-29 09:59] LABS: Anion Gap 7 (5-15); BUN 27 mg/dL (7-18); Chloride 110 mmol/L (98-107); Creatinine, Serum 1.79 mg/dL (0.70-1.30); EST Glomerular Filtration Rate 42 mL/min (>60); Est Glom Filt Rate - Afr Amer 50 mL/min (>60); Glucose 177 mg/dL (74-106); Sodium Level 138 mmol/L (136-145)
[2020-09-29 10:06] LABS: Basophil 5 % (0-1); Eosinophil 2 % (0-5); Lymphocyte 8 % (19-41); Metamyelocyte 3 % (0-1); Monocyte 15 % (0-10); Myelocyte 2 (0-0); Neutrophil-Band 2 % (0-5); Neutrophil-Segmented 63 % (47-70); Platelet Estimate ADEQUATE (ADEQ); Red Cell Morphology NORM C+C NORMAL (NORM C&C); Total Cells Counted 100 (MANUAL DIFF)
[2020-09-29 10:07] LABS: Absolute Neutrophil Count 1.5 X10^3/uL (2.0-7.7)
[2020-09-30 13:20] LABS: Pathologist Review Reviewed
[2020-10-02 13:03] LABS: Tacrolimus (FK506) 6.8 ng/mL (2.0-20.0)
[2020-10-03 09:41] LABS: Hematocrit 39.7 % (40-54); Hemoglobin 12.1 g/dL (13.0-16.5); Mean Corp Hgb Conc 30.5 g/dL (32-36); Mean Corpuscular Hgb 28.6 pg (27.0-32.0); Mean Corpuscular Volume 93.9 fL (80-94); Mean Platelet Vol. 10.1 fl (6.2-12.0); POSITIVE COUNT YES; POSITIVE DIFFERENTIAL YES; POSITIVE MORPHOLOGY YES; Platelet Count 201 K/mm3 (150-450); RBC Distribution Width CV 14.6 % (11.6-14.6); RBC Distribution Width SD 50.4 fl (35.1-43.9); Red Blood Count 4.23 M/mm3 (4.6-6.2); White Blood Count 2.7 K/mm3 (4.4-11.0)
[2020-10-03 09:51] LABS: Differential Indicated MANUAL DIFF
[2020-10-03 09:58] LABS: Protein, Urine (Random) 23.5 mg/dL (<11.9); Protein:Creat Ratio 483 mg/g CRE (0-200)
[2020-10-03 10:10] LABS: Lymphocyte 14 % (19-41); Metamyelocyte 2 % (0-1); Monocyte 14 % (0-10); Neutrophil-Band 4 % (0-5); Neutrophil-Segmented 66 % (47-70); Total Cells Counted 100 (MANUAL DIFF)
[2020-10-03 10:11] LABS: Dohle Bodies 1+; Platelet Estimate ADEQUATE (ADEQ)
[2020-10-03 10:12] LABS: Absolute Lymphocyte Count 0.38 X10^3/uL (0.83-4.51); Absolute Neutrophil Count 1.9 X10^3/uL (2.0-7.7)
[2020-10-03 10:17] LABS: AST(SGOT) 7 U/L (15-37); Alanine Aminotransfer ALT/SGPT 15 U/L (16-61); Albumin, Serum 3.2 g/dL (3.2-5.0); Alkaline Phosphatase 589 U/L (45-117); Anion Gap 7 (5-15); BUN 25 mg/dL (7-18); Calcium,Total 8.9 mg/dL (8.5-10.1); Chloride 113 mmol/L (98-107); Cholesterol 133 mg/dL (200); Creatinine, Serum 1.97 mg/dL (0.70-1.30); EST Glomerular Filtration Rate 37 mL/min (>60); Est Glom Filt Rate - Afr Amer 45 mL/min (>60); Glucose 184 mg/dL (74-106); Magnesium 1.6 mg/dL (1.6-2.6); Phosphorus 2.7 mg/dL (2.5-4.9); Potassium 4.2 mmol/L (3.5-5.1); Sodium Level 141 mmol/L (136-145); Triglycerides 181 mg/dL
[2020-10-04 13:59] LABS: Pathologist Review Reviewed
[2020-10-05 15:02] LABS: Tacrolimus (FK506) 6.4 ng/mL (2.0-20.0)
[2020-10-06 08:37] LABS: Hematocrit 41.9 % (40-54); Hemoglobin 12.8 g/dL (13.0-16.5); Mean Corp Hgb Conc 30.5 g/dL (32-36); Mean Corpuscular Hgb 28.6 pg (27.0-32.0); Mean Corpuscular Volume 93.5 fL (80-94); POSITIVE COUNT YES; POSITIVE DIFFERENTIAL YES; POSITIVE MORPHOLOGY YES; Platelet Count 202 K/mm3 (150-450); RBC Distribution Width CV 14.5 % (11.6-14.6); RBC Distribution Width SD 49.9 fl (35.1-43.9); Red Blood Count 4.48 M/mm3 (4.6-6.2); White Blood Count 2.3 K/mm3 (4.4-11.0)
[2020-10-06 09:07] LABS: Differential Indicated MANUAL DIFF
[2020-10-06 09:13] LABS: Anion Gap 6 (5-15); BUN 29 mg/dL (7-18); Chloride 112 mmol/L (98-107); EST Glomerular Filtration Rate 35 mL/min (>60); Est Glom Filt Rate - Afr Amer 42 mL/min (>60); Glucose 170 mg/dL (74-106); Potassium 4.4 mmol/L (3.5-5.1); Sodium Level 139 mmol/L (136-145)
[2020-10-06 09:14] LABS: Eosinophil 4 % (0-5); Lymphocyte 11 % (19-41); Metamyelocyte 1 % (0-1); Monocyte 4 % (0-10); Myelocyte 3 (0-0); Neutrophil-Band 9 % (0-5); Neutrophil-Segmented 68 % (47-70); Total Cells Counted 100 (MANUAL DIFF)
[2020-10-06 09:15] LABS: Absolute Lymphocyte Count 0.25 X10^3/uL (0.83-4.51); Platelet Estimate ADEQUATE (ADEQ); Red Cell Morphology NORM C+C NORMAL (NORM C&C)
[2020-10-07 13:47] LABS: Pathologist Review Reviewed
[2020-10-10 04:39] LABS: Tacrolimus (FK506) 5.7 ng/mL (2.0-20.0)
[2020-10-10 09:20] LABS: Hematocrit 41.1 % (40-54); Hemoglobin 12.3 g/dL (13.0-16.5); Mean Corp Hgb Conc 29.9 g/dL (32-36); Mean Corpuscular Hgb 28.1 pg (27.0-32.0); Mean Corpuscular Volume 94.1 fL (80-94); Mean Platelet Vol. 10.3 fl (6.2-12.0); POSITIVE COUNT YES; POSITIVE DIFFERENTIAL YES; POSITIVE MORPHOLOGY YES; Platelet Count 182 K/mm3 (150-450); RBC Distribution Width CV 14.6 % (11.6-14.6); RBC Distribution Width SD 50.9 fl (35.1-43.9); Red Blood Count 4.37 M/mm3 (4.6-6.2); White Blood Count 1.6 K/mm3 (4.4-11.0)
[2020-10-10 09:28] LABS: Differential Indicated MANUAL DIFF
[2020-10-10 09:45] LABS: Protein, Urine (Random) 31.1 mg/dL (<11.9); Protein:Creat Ratio 537 mg/g CRE (0-200)
[2020-10-10 10:13] LABS: ALB/GLOB Ratio 1.1 RATIO (0.9-2.4); AST(SGOT) 10 U/L (15-37); Alanine Aminotransfer ALT/SGPT 22 U/L (16-61); Albumin, Serum 3.4 g/dL (3.2-5.0); Alkaline Phosphatase 501 U/L (45-117); Anion Gap 9 (5-15); BUN 34 mg/dL (7-18); BUN/Creat Ratio 15.1 RATIO (10-20); Calcium,Total 8.4 mg/dL (8.5-10.1); Chloride 111 mmol/L (98-107); Creatinine, Serum 2.25 mg/dL (0.70-1.30); EST Glomerular Filtration Rate 32 mL/min (>60); Est Glom Filt Rate - Afr Amer 39 mL/min (>60); Globulin 3.2 g/dL (2.2-4.2); Glucose 196 mg/dL (74-106); Magnesium 1.6 mg/dL (1.6-2.6); Phosphorus 3.1 mg/dL (2.5-4.9); Potassium 3.9 mmol/L (3.5-5.1); Protein, Total 6.6 g/dL (6.4-8.2); Sodium Level 140 mmol/L (136-145)
[2020-10-10 10:37] LABS: Basophil 4 % (0-1); Eosinophil 1 % (0-5); Lymphocyte 17 % (19-41); Metamyelocyte 2 % (0-1); Monocyte 21 % (0-10); Neutrophil-Segmented 55 % (47-70); Platelet Estimate ADEQUATE (ADEQ); Red Cell Morphology NORM C+C NORMAL (NORM C&C); Total Cells Counted 100 (MANUAL DIFF)
[2020-10-10 10:38] LABS: Absolute Neutrophil Count 0.9 X10^3/uL (2.0-7.7)
[2020-10-10 10:39] LABS: Absolute Lymphocyte Count 0.27 X10^3/uL (0.83-4.51); Lymphocyte # 0.27 X10^3/ul (4.0)
[2020-10-11 13:03] LABS: Pathologist Review Reviewed
[2020-10-11 21:52] LABS: Tacrolimus (FK506) 5.7 ng/mL (2.0-20.0)
[2020-10-17 11:38] LABS: Hematocrit 38.6 % (40-54); Hemoglobin 11.9 g/dL (13.0-16.5); Mean Corp Hgb Conc 30.8 g/dL (32-36); Mean Corpuscular Hgb 28.1 pg (27.0-32.0); Mean Platelet Vol. 10.2 fl (6.2-12.0); POSITIVE COUNT YES; POSITIVE DIFFERENTIAL YES; POSITIVE MORPHOLOGY YES; Platelet Count 151 K/mm3 (150-450); RBC Distribution Width CV 14.1 % (11.6-14.6); RBC Distribution Width SD 47.6 fl (35.1-43.9); Red Blood Count 4.24 M/mm3 (4.6-6.2); White Blood Count 1.8 K/mm3 (4.4-11.0)
[2020-10-17 12:06] LABS: Differential Indicated MANUAL DIFF
[2020-10-17 12:26] LABS: ALB/GLOB Ratio 0.9 RATIO (0.9-2.4); AST(SGOT) 9 U/L (15-37); Alanine Aminotransfer ALT/SGPT 16 U/L (16-61); Albumin, Serum 3.1 g/dL (3.2-5.0); Alkaline Phosphatase 400 U/L (45-117); Anion Gap 10 (5-15); BUN 30 mg/dL (7-18); BUN/Creat Ratio 9.9 RATIO (10-20); Calcium,Total 8.9 mg/dL (8.5-10.1); Chloride 106 mmol/L (98-107); Cholesterol 109 mg/dL (200); Creatinine, Serum 3.04 mg/dL (0.70-1.30); EST Glomerular Filtration Rate 23 mL/min (>60); Est Glom Filt Rate - Afr Amer 27 mL/min (>60); Globulin 3.3 g/dL (2.2-4.2); Glucose 211 mg/dL (74-106); High Density Lipoprotein 29 mg/dL; Magnesium 1.4 mg/dL (1.6-2.6); Potassium 4.1 mmol/L (3.5-5.1); Protein, Total 6.4 g/dL (6.4-8.2); Sodium Level 135 mmol/L (136-145); Triglycerides 127 mg/dL; Very Low Density Lipoprotein 25 mg/dL (5-40)
[2020-10-17 12:36] LABS: Atypical Lymphocyte 2+ %; Basophil 4 % (0-1); Lymphocyte 15 % (19-41); Metamyelocyte 6 % (0-1); Monocyte 42 % (0-10); Neutrophil-Band 4 % (0-5); Neutrophil-Segmented 29 % (47-70)
[2020-10-17 12:37] LABS: Platelet Estimate ADEQUATE (ADEQ); Red Cell Morphology NORM C+C NORMAL (NORM C&C)
[2020-10-17 12:38] LABS: Absolute Neutrophil Count 0.6 X10^3/uL (2.0-7.7)
[2020-10-17 12:39] LABS: Absolute Lymphocyte Count 0.27 X10^3/uL (0.83-4.51)
[2020-10-18 14:54] LABS: Pathologist Review Reviewed
[2020-10-21 10:44] LABS: Hematocrit 37.7 % (40-54); Hemoglobin 11.3 g/dL (13.0-16.5); Mean Corpuscular Hgb 27.6 pg (27.0-32.0); Mean Platelet Vol. 10.2 fl (6.2-12.0); POSITIVE COUNT YES; POSITIVE DIFFERENTIAL YES; POSITIVE MORPHOLOGY YES; Platelet Count 195 K/mm3 (150-450); RBC Distribution Width CV 14.2 % (11.6-14.6); RBC Distribution Width SD 48.1 fl (35.1-43.9); White Blood Count 12.9 K/mm3 (4.4-11.0)
[2020-10-21 10:55] LABS: Differential Indicated MANUAL DIFF
[2020-10-21 11:21] LABS: Anion Gap 7 (5-15); BUN 26 mg/dL (7-18); BUN/Creat Ratio 9.4 RATIO (10-20); Calcium,Total 8.6 mg/dL (8.5-10.1); Chloride 112 mmol/L (98-107); Creatinine, Serum 2.76 mg/dL (0.70-1.30); EST Glomerular Filtration Rate 25 mL/min (>60); Est Glom Filt Rate - Afr Amer 31 mL/min (>60); Glucose 176 mg/dL (74-106); Potassium 3.8 mmol/L (3.5-5.1); Sodium Level 141 mmol/L (136-145)
[2020-10-21 11:25] LABS: Basophil 1 % (0-1); Metamyelocyte 2 % (0-1); Myelocyte 2 (0-0); Neutrophil-Band 14 % (0-5); Neutrophil-Segmented 63 % (47-70); Total Cells Counted 100 (MANUAL DIFF)
[2020-10-21 11:27] LABS: Lymphocyte 6 % (19-41); Monocyte 12 % (0-10)
[2020-10-21 11:28] LABS: Absolute Lymphocyte Count 0.77 X10^3/uL (0.83-4.51); Absolute Neutrophil Count 9.9 X10^3/uL (2.0-7.7)
[2020-10-21 11:29] LABS: Platelet Estimate ADEQUATE (ADEQ); Red Cell Morphology NORM C+C NORMAL (NORM C&C)
[2020-10-24 09:26] LABS: Cyclosporine 179 ng/mL (100-400)
[2020-10-24 09:41] LABS: Hematocrit 37.6 % (40-54); Hemoglobin 11.5 g/dL (13.0-16.5); Mean Corp Hgb Conc 30.6 g/dL (32-36); Mean Corpuscular Volume 91.7 fL (80-94); Mean Platelet Vol. 10.4 fl (6.2-12.0); POSITIVE COUNT YES; POSITIVE DIFFERENTIAL YES; POSITIVE MORPHOLOGY YES; Platelet Count 181 K/mm3 (150-450); RBC Distribution Width CV 14.3 % (11.6-14.6); RBC Distribution Width SD 47.9 fl (35.1-43.9); White Blood Count 11.8 K/mm3 (4.4-11.0)
[2020-10-24 09:48] LABS: Differential Indicated MANUAL DIFF
[2020-10-24 10:06] LABS: Anion Gap 6 (5-15); BUN 30 mg/dL (7-18); BUN/Creat Ratio 10.6 RATIO (10-20); Calcium,Total 8.6 mg/dL (8.5-10.1); Chloride 110 mmol/L (98-107); Creatinine, Serum 2.83 mg/dL (0.70-1.30); EST Glomerular Filtration Rate 25 mL/min (>60); Est Glom Filt Rate - Afr Amer 30 mL/min (>60); Glucose 140 mg/dL (74-106); Potassium 4.2 mmol/L (3.5-5.1); Sodium Level 140 mmol/L (136-145)
[2020-10-24 10:08] LABS: Lymphocyte 3 % (19-41); Metamyelocyte 1 % (0-1); Monocyte 9 % (0-10); Neutrophil-Band 4 % (0-5); Neutrophil-Segmented 83 % (47-70); Platelet Estimate ADEQUATE (ADEQ); Red Cell Morphology NORM C+C NORMAL (NORM C&C); Total Cells Counted 100 (MANUAL DIFF)
[2020-10-24 10:37] LABS: Absolute Lymphocyte Count 0.35 X10^3/uL (0.83-4.51); Absolute Neutrophil Count 10.3 X10^3/uL (2.0-7.7)
[2020-10-24 12:55] LABS: Pathologist Review Reviewed
[2020-10-25 12:59] LABS: Pathologist Review Reviewed
[2020-10-27 14:42] LABS: CMV by PCR Negative (Negative); Cyclosporine 177 ng/mL (100-400)
[2020-11-10 15:04] LABS: CMV by PCR Negative (Negative); Cyclosporine 223 ng/mL (100-400)
== END 2020-10-24 18:00 | disposition home or self-care (01) ==
LOC: LAB 09:22
PROVIDERS: PCP Family Medicine
DX: Z94.0 Kidney transplant status (principal); Z48.298 Encounter for aftercare following other organ transplant; R79.9 Abnormal finding of blood chemistry, unspecified; D89.9 Disorder involving the immune mechanism, unspecified; D64.9 Anemia, unspecified; Z09 Encounter for follow-up examination after completed treatment for conditions other than malignant neoplasm; Z51.81 Encounter for therapeutic drug level monitoring; B34.8 Other viral infections of unspecified site; Z11.59 Encounter for screening for other viral diseases; E78.5 Hyperlipidemia, unspecified
CPT/HCPCS: 36415; 80048; 80051; 80053; 80061; 80158; 80197; 82040; 82247; 82310; 82465; 82565; 82570; 82947; 83735; 84075; 84100; 84156; 84450; 84460; 84478; 84520; 84550; 85025; 87496

== ENCOUNTER 2020-11-24 10:07 | Outpatient (RCR) | payer BC, MEDICARE, SELFPAY ==
[2020-10-15 09:25] VITALS: BMI 28.1
[2020-10-27 11:13] LABS: Absolute Neutrophil Count 9.5 X10^3/uL (2.0-7.7); Basophil# 0.13 X10^3/uL; Basophil% 1.2 % (0-1); Eosinophil# 0.08 X10^3/uL; Eosinophils% 0.7 % (0-5); Hematocrit 39.4 % (40-54); Hemoglobin 11.6 g/dL (13.0-16.5); Lymphocyte % 2.7 % (19-41); Mean Corp Hgb Conc 29.4 g/dL (32-36); Mean Corpuscular Hgb 27.5 pg (27.0-32.0); Mean Corpuscular Volume 93.4 fL (80-94); Mean Platelet Vol. 10.5 fl (6.2-12.0); Monocyte# 0.92 X10^3/uL; Monocyte% 8.2 % (0-10); NRBC Flagged by Analyzer 0 % (0-5); Neutrophil # 9.49 X10^3/uL (2.7-7.7); POSITIVE DIFFERENTIAL YES; Platelet Count 194 K/mm3 (150-450); RBC Distribution Width CV 14.6 % (11.6-14.6); RBC Distribution Width SD 50.6 fl (35.1-43.9); Red Blood Count 4.22 M/mm3 (4.6-6.2); White Blood Count 11.2 K/mm3 (4.4-11.0)
[2020-10-27 11:17] LABS: Differential Indicated SCAN CRITERIA MET
[2020-10-27 11:30] LABS: Anion Gap 7 (5-15); BUN 35 mg/dL (7-18); BUN/Creat Ratio 11.8 RATIO (10-20); Calcium,Total 8.4 mg/dL (8.5-10.1); Chloride 109 mmol/L (98-107); Creatinine, Serum 2.96 mg/dL (0.70-1.30); EST Glomerular Filtration Rate 23 mL/min (>60); Est Glom Filt Rate - Afr Amer 28 mL/min (>60); Glucose 147 mg/dL (74-106); Potassium 4.3 mmol/L (3.5-5.1); Sodium Level 138 mmol/L (136-145)
[2020-10-27 11:38] LABS: Platelet Estimate ADEQUATE (ADEQ)
[2020-10-27 11:44] LABS: T4 Free Direct 1.36 ng/dL (0.76-1.46)
[2020-10-31 04:19] LABS: Vitamin D 1,25-Dihydroxy 20.5 pg/mL (19.9-79.3)
[2020-10-31 04:20] LABS: Cyclosporine 389 ng/mL (100-400)
[2020-10-31 11:04] LABS: Absolute Lymphocyte Count 0.38 X10^3/uL (0.83-4.51); Basophil# 0.16 X10^3/uL; Basophil% 1.3 % (0-1); Eosinophil# 0.13 X10^3/uL; Eosinophils% 1.1 % (0-5); Hematocrit 39.7 % (40-54); Hemoglobin 11.5 g/dL (13.0-16.5); Lymphocyte # 0.38 X10^3/ul (4.0); Lymphocyte % 3.2 % (19-41); Mean Corpuscular Hgb 27.6 pg (27.0-32.0); Mean Corpuscular Volume 95.2 fL (80-94); Mean Platelet Vol. 10.9 fl (6.2-12.0); Monocyte# 1.18 X10^3/uL; Monocyte% 9.8 % (0-10); NRBC Flagged by Analyzer 0 % (0-5); Neutrophil # 10.02 X10^3/uL (2.7-7.7); Neutrophil % 83.6 % (47-70); POSITIVE DIFFERENTIAL YES; Platelet Count 225 K/mm3 (150-450); RBC Distribution Width CV 14.6 % (11.6-14.6); RBC Distribution Width SD 51.2 fl (35.1-43.9); Red Blood Count 4.17 M/mm3 (4.6-6.2)
[2020-10-31 11:10] LABS: Differential Indicated SCAN CRITERIA MET
[2020-10-31 11:29] LABS: ALB/GLOB Ratio 1.1 RATIO (0.9-2.4); AST(SGOT) 12 U/L (15-37); Alanine Aminotransfer ALT/SGPT 16 U/L (16-61); Albumin, Serum 3.4 g/dL (3.2-5.0); Alkaline Phosphatase 158 U/L (45-117); Anion Gap 7 (5-15); BUN 41 mg/dL (7-18); BUN/Creat Ratio 13.5 RATIO (10-20); Calcium,Total 8.7 mg/dL (8.5-10.1); Chloride 113 mmol/L (98-107); Cholesterol 176 mg/dL (200); Creatinine, Serum 3.03 mg/dL (0.70-1.30); EST Glomerular Filtration Rate 23 mL/min (>60); Est Glom Filt Rate - Afr Amer 27 mL/min (>60); Globulin 3.2 g/dL (2.2-4.2); Glucose 197 mg/dL (74-106); High Density Lipoprotein 33 mg/dL; Potassium 4.9 mmol/L (3.5-5.1); Protein, Total 6.6 g/dL (6.4-8.2); Sodium Level 140 mmol/L (136-145); Triglycerides 330 mg/dL; Very Low Density Lipoprotein 66 mg/dL (5-40)
[2020-11-03 10:39] LABS: Absolute Lymphocyte Count 0.45 X10^3/uL (0.83-4.51); Absolute Neutrophil Count 7.9 X10^3/uL (2.0-7.7); Basophil# 0.19 X10^3/uL; Basophil% 1.9 % (0-1); Eosinophil# 0.18 X10^3/uL; Eosinophils% 1.8 % (0-5); Hematocrit 40.7 % (40-54); Hemoglobin 11.8 g/dL (13.0-16.5); Lymphocyte # 0.45 X10^3/ul (4.0); Lymphocyte % 4.4 % (19-41); Mean Corpuscular Hgb 27.4 pg (27.0-32.0); Mean Corpuscular Volume 94.4 fL (80-94); Mean Platelet Vol. 10.4 fl (6.2-12.0); Monocyte# 1.34 X10^3/uL; Monocyte% 13.2 % (0-10); NRBC Flagged by Analyzer 0 % (0-5); Neutrophil # 7.86 X10^3/uL (2.7-7.7); Neutrophil % 77.2 % (47-70); POSITIVE DIFFERENTIAL YES; Platelet Count 230 K/mm3 (150-450); RBC Distribution Width CV 14.6 % (11.6-14.6); RBC Distribution Width SD 51.5 fl (35.1-43.9); Red Blood Count 4.31 M/mm3 (4.6-6.2); White Blood Count 10.2 K/mm3 (4.4-11.0)
[2020-11-03 10:48] LABS: Differential Indicated SCAN CRITERIA MET
[2020-11-03 10:57] LABS: International Normalized Ratio 1.2; Prothrombin Time (Protime)PT. 14.3 SECONDS (11.7-14.9)
[2020-11-03 10:58] LABS: Partial Thromboplast Time 30.1 Seconds (24.1-36.2)
[2020-11-03 11:03] LABS: Anion Gap 9 (5-15); BUN 51 mg/dL (7-18); BUN/Creat Ratio 15.6 RATIO (10-20); Calcium,Total 8.7 mg/dL (8.5-10.1); Chloride 111 mmol/L (98-107); Creatinine, Serum 3.26 mg/dL (0.70-1.30); EST Glomerular Filtration Rate 21 mL/min (>60); Est Glom Filt Rate - Afr Amer 25 mL/min (>60); Glucose 179 mg/dL (74-106); Potassium 5.2 mmol/L (3.5-5.1); Sodium Level 139 mmol/L (136-145)
[2020-11-06 15:00] LABS: Cyclosporine 256 ng/mL (100-400)
[2020-11-09 15:22] LABS: CMV by PCR Negative (Negative); Cyclosporine 233 ng/mL (100-400)
[2020-11-21 10:39] LABS: Absolute Lymphocyte Count 0.21 X10^3/uL (0.83-4.51); Basophil# 0.03 X10^3/uL; Basophil% 0.2 % (0-1); Hematocrit 40.4 % (40-54); Hemoglobin 12.3 g/dL (13.0-16.5); Lymphocyte # 0.21 X10^3/ul (4.0); Lymphocyte % 1.1 % (19-41); Mean Corp Hgb Conc 30.4 g/dL (32-36); Mean Corpuscular Hgb 27.5 pg (27.0-32.0); Mean Corpuscular Volume 90.4 fL (80-94); Mean Platelet Vol. 11.6 fl (6.2-12.0); Monocyte# 0.75 X10^3/uL; Monocyte% 4.1 % (0-10); NRBC Flagged by Analyzer 0 % (0-5); Neutrophil # 17.04 X10^3/uL (2.7-7.7); Neutrophil % 92.2 % (47-70); POSITIVE COUNT YES; POSITIVE DIFFERENTIAL YES; Platelet Count 58 K/mm3 (150-450); RBC Distribution Width CV 14.4 % (11.6-14.6); RBC Distribution Width SD 47.8 fl (35.1-43.9); Red Blood Count 4.47 M/mm3 (4.6-6.2); White Blood Count 18.5 K/mm3 (4.4-11.0)
[2020-11-21 10:41] LABS: Differential Indicated SCAN CRITERIA MET
[2020-11-21 11:02] LABS: Platelet Estimate MKD DEC (ADEQ)
[2020-11-21 11:09] LABS: ALB/GLOB Ratio 0.8 RATIO (0.9-2.4); AST(SGOT) 15 U/L (15-37); Alanine Aminotransfer ALT/SGPT 23 U/L (16-61); Alkaline Phosphatase 76 U/L (45-117); Anion Gap 6 (5-15); BUN 61 mg/dL (7-18); BUN/Creat Ratio 27.7 RATIO (10-20); Calcium,Total 8.2 mg/dL (8.5-10.1); Chloride 113 mmol/L (98-107); EST Glomerular Filtration Rate 33 mL/min (>60); Est Glom Filt Rate - Afr Amer 40 mL/min (>60); Globulin 3.9 g/dL (2.2-4.2); Glucose 105 mg/dL (74-106); Potassium 3.9 mmol/L (3.5-5.1); Protein, Total 6.9 g/dL (6.4-8.2); Sodium Level 139 mmol/L (136-145)
[2020-11-24 11:22] LABS: Absolute Lymphocyte Count 0.18 X10^3/uL (0.83-4.51); Absolute Neutrophil Count 18.1 X10^3/uL (2.0-7.7); Basophil# 0.03 X10^3/uL; Basophil% 0.2 % (0-1); Eosinophil# 0.04 X10^3/uL; Eosinophils% 0.2 % (0-5); Hematocrit 39.6 % (40-54); Hemoglobin 11.9 g/dL (13.0-16.5); Lymphocyte # 0.18 X10^3/ul (4.0); Lymphocyte % 0.9 % (19-41); Mean Corp Hgb Conc 30.1 g/dL (32-36); Mean Corpuscular Hgb 27.9 pg (27.0-32.0); Mean Platelet Vol. 11.2 fl (6.2-12.0); Monocyte% 5.1 % (0-10); NRBC Flagged by Analyzer 0 % (0-5); Neutrophil # 18.07 X10^3/uL (2.7-7.7); Neutrophil % 91.7 % (47-70); POSITIVE COUNT YES; POSITIVE DIFFERENTIAL YES; RBC Distribution Width SD 50.1 fl (35.1-43.9); Red Blood Count 4.26 M/mm3 (4.6-6.2); White Blood Count 19.7 K/mm3 (4.4-11.0)
[2020-11-24 11:40] LABS: Differential Indicated SCAN CRITERIA MET
[2020-11-24 11:45] LABS: Differential Comment SCANNED; Platelet Count 32 K/mm3 (150-450); Platelet Estimate MKD DEC (ADEQ)
[2020-11-24 11:53] LABS: ALB/GLOB Ratio 0.8 RATIO (0.9-2.4); AST(SGOT) 17 U/L (15-37); Alanine Aminotransfer ALT/SGPT 31 U/L (16-61); Albumin, Serum 2.8 g/dL (3.2-5.0); Alkaline Phosphatase 72 U/L (45-117); Anion Gap 4 (5-15); BUN 57 mg/dL (7-18); BUN/Creat Ratio 24.7 RATIO (10-20); Calcium,Total 8.4 mg/dL (8.5-10.1); Chloride 114 mmol/L (98-107); Creatinine, Serum 2.31 mg/dL (0.70-1.30); EST Glomerular Filtration Rate 31 mL/min (>60); Est Glom Filt Rate - Afr Amer 38 mL/min (>60); Globulin 3.5 g/dL (2.2-4.2); Glucose 53 mg/dL (74-106); Potassium 4.6 mmol/L (3.5-5.1); Protein, Total 6.3 g/dL (6.4-8.2); Sodium Level 141 mmol/L (136-145)
[2020-11-27 14:45] LABS: Cyclosporine 560 ng/mL (100-400)
[2020-11-28 13:12] LABS: Pathologist Review Reviewed
[2020-11-29 13:23] LABS: CMV by PCR Positive (Negative); Cyclosporine 520 ng/mL (100-400)
== END 2020-11-24 18:00 | disposition home or self-care (01) ==
LOC: LAB 10:07
PROVIDERS: PCP Family Medicine
DX: Z94.0 Kidney transplant status (principal); Z48.298 Encounter for aftercare following other organ transplant; R79.9 Abnormal finding of blood chemistry, unspecified; D89.9 Disorder involving the immune mechanism, unspecified; D64.9 Anemia, unspecified; Z51.81 Encounter for therapeutic drug level monitoring; Z11.59 Encounter for screening for other viral diseases; E78.5 Hyperlipidemia, unspecified
CPT/HCPCS: 36415; 80048; 80053; 80061; 80158; 82652; 83036; 84439; 84443; 85025; 85610; 85730; 87496

== ENCOUNTER → 2020-11-26 08:33 | Outpatient (CLI) | payer MEDICARE, SELFPAY ==
[2020-10-15 09:25] VITALS: BMI 28.1
[2020-11-26 09:12] LABS: Color, Urine Yellow (Yellow); Glucose, Dipstick Normal (Normal); Ketone-Dipstick Negative (Negative); Leukocyte Esterase-Dipstick Negative /ul (Negative); Nitrite-Dipstick Negative (Negative); Occult Blood-Urine 10 /ul (Negative); Protein-Dipstick Negative (Negative); Urine Bilirubin Dipstick Negative (Negative); Urine Clarity Clear (Clear); Urine Urobilinogen Normal (Normal)
[2020-11-26 09:13] LABS: Hematocrit 38.5 % (40-54); Hemoglobin 11.8 g/dL (13.0-16.5); Mean Corp Hgb Conc 30.6 g/dL (32-36); Mean Corpuscular Volume 91.2 fL (80-94); Mean Platelet Vol. 11.7 fl (6.2-12.0); POSITIVE COUNT YES; RBC Distribution Width CV 15.2 % (11.6-14.6); Red Blood Count 4.22 M/mm3 (4.6-6.2); White Blood Count 11.3 K/mm3 (4.4-11.0)
[2020-11-26 09:22] LABS: Protein, Urine (Random) 14.8 mg/dL (<11.9); Protein:Creat Ratio 498 mg/g CRE (0-200)
[2020-11-26 09:24] LABS: Scan Indicated on CBC? Y/N YES- FLAGS NOTED
[2020-11-26 09:34] LABS: Platelet Count 23 K/mm3 (150-450)
[2020-11-26 10:03] LABS: Differential Comment SCANNED
[2020-11-28 13:26] LABS: Pathologist Review Reviewed
[2020-11-30 12:08] LABS: HCV Quant. RNA PCR HCV Not Detected IU/mL (.)
[2020-11-30 12:25] LABS: CMV by PCR Positive (Negative)
== END ==
PROVIDERS: PCP Family Medicine
DX: Z09 Encounter for follow-up examination after completed treatment for conditions other than malignant neoplasm (principal); R79.9 Abnormal finding of blood chemistry, unspecified; Z94.0 Kidney transplant status
CPT/HCPCS: 36415; 81002; 82570; 84156; 85027; 87496; 87522

== ENCOUNTER 2020-12-22 09:26 | Outpatient (RCR) | payer MEDICARE, SELFPAY ==
[2020-10-15 09:25] VITALS: BMI 28.1
[2020-11-28 10:56] LABS: Absolute Lymphocyte Count 0.12 X10^3/uL (0.83-4.51); Absolute Neutrophil Count 8.3 X10^3/uL (2.0-7.7); Basophil# 0.01 X10^3/uL; Basophil% 0.1 % (0-1); Eosinophil# 0.05 X10^3/uL; Eosinophils% 0.5 % (0-5); Hematocrit 36.9 % (40-54); Hemoglobin 10.9 g/dL (13.0-16.5); Lymphocyte # 0.12 X10^3/ul (4.0); Lymphocyte % 1.3 % (19-41); Mean Corp Hgb Conc 29.5 g/dL (32-36); Mean Corpuscular Hgb 27.7 pg (27.0-32.0); Mean Corpuscular Volume 93.7 fL (80-94); Monocyte# 0.77 X10^3/uL; Monocyte% 8.3 % (0-10); NRBC Flagged by Analyzer 0 % (0-5); Neutrophil # 8.29 X10^3/uL (2.7-7.7); Neutrophil % 88.8 % (47-70); POSITIVE COUNT YES; POSITIVE DIFFERENTIAL YES; Platelet Count 18 K/mm3 (150-450); RBC Distribution Width CV 15.4 % (11.6-14.6); RBC Distribution Width SD 52.9 fl (35.1-43.9); Red Blood Count 3.94 M/mm3 (4.6-6.2); White Blood Count 9.3 K/mm3 (4.4-11.0)
[2020-11-28 10:58] LABS: Differential Indicated SCAN CRITERIA MET
[2020-11-28 11:21] LABS: Platelet Estimate MKD DEC (ADEQ)
[2020-11-28 11:28] LABS: ALB/GLOB Ratio 0.8 RATIO (0.9-2.4); AST(SGOT) 25 U/L (15-37); Alanine Aminotransfer ALT/SGPT 48 U/L (16-61); Albumin, Serum 2.7 g/dL (3.2-5.0); Alkaline Phosphatase 70 U/L (45-117); Anion Gap 6 (5-15); BUN 48 mg/dL (7-18); BUN/Creat Ratio 23.3 RATIO (10-20); Calcium,Total 8.3 mg/dL (8.5-10.1); Chloride 112 mmol/L (98-107); Creatinine, Serum 2.06 mg/dL (0.70-1.30); EST Glomerular Filtration Rate 35 mL/min (>60); Est Glom Filt Rate - Afr Amer 43 mL/min (>60); Globulin 3.4 g/dL (2.2-4.2); Glucose 156 mg/dL (74-106); Potassium 5.2 mmol/L (3.5-5.1); Protein, Total 6.1 g/dL (6.4-8.2); Sodium Level 139 mmol/L (136-145)
[2020-11-29 11:10] LABS: Pathologist Review Reviewed
[2020-12-05 10:37] LABS: Absolute Lymphocyte Count 0.34 X10^3/uL (0.83-4.51); Basophil# 0.01 X10^3/uL; Basophil% 0.2 % (0-1); Eosinophil# 0.07 X10^3/uL; Eosinophils% 1.2 % (0-5); Hematocrit 40.6 % (40-54); Lymphocyte # 0.34 X10^3/ul (4.0); Lymphocyte % 5.8 % (19-41); Mean Corp Hgb Conc 29.6 g/dL (32-36); Mean Corpuscular Hgb 27.4 pg (27.0-32.0); Mean Corpuscular Volume 92.7 fL (80-94); Mean Platelet Vol. 11.5 fl (6.2-12.0); Monocyte# 0.46 X10^3/uL; Monocyte% 7.8 % (0-10); NRBC Flagged by Analyzer 0 % (0-5); Neutrophil % 84.7 % (47-70); POSITIVE COUNT YES; POSITIVE DIFFERENTIAL YES; Platelet Count 52 K/mm3 (150-450); RBC Distribution Width CV 14.7 % (11.6-14.6); RBC Distribution Width SD 50.7 fl (35.1-43.9); Red Blood Count 4.38 M/mm3 (4.6-6.2); White Blood Count 5.9 K/mm3 (4.4-11.0)
[2020-12-05 10:39] LABS: Differential Indicated SCAN CRITERIA MET
[2020-12-05 11:00] LABS: Platelet Estimate MOD DEC (ADEQ)
[2020-12-05 11:08] LABS: ALB/GLOB Ratio 0.8 RATIO (0.9-2.4); AST(SGOT) 27 U/L (15-37); Alanine Aminotransfer ALT/SGPT 47 U/L (16-61); Alkaline Phosphatase 84 U/L (45-117); Anion Gap 7 (5-15); BUN 32 mg/dL (7-18); BUN/Creat Ratio 15.9 RATIO (10-20); Calcium,Total 8.9 mg/dL (8.5-10.1); Chloride 105 mmol/L (98-107); Creatinine, Serum 2.01 mg/dL (0.70-1.30); EST Glomerular Filtration Rate 36 mL/min (>60); Est Glom Filt Rate - Afr Amer 44 mL/min (>60); Globulin 3.7 g/dL (2.2-4.2); Glucose 98 mg/dL (74-106); Protein, Total 6.7 g/dL (6.4-8.2); Sodium Level 135 mmol/L (136-145)
[2020-12-05 18:46] LABS: CMV by PCR Positive (Negative); Cyclosporine 391 ng/mL (100-400)
[2020-12-08 10:59] LABS: Absolute Lymphocyte Count 0.45 X10^3/uL (0.83-4.51); Absolute Neutrophil Count 4.2 X10^3/uL (2.0-7.7); Basophil# 0.02 X10^3/uL; Basophil% 0.4 % (0-1); Eosinophil# 0.07 X10^3/uL; Eosinophils% 1.3 % (0-5); Hematocrit 40.6 % (40-54); Hemoglobin 12.1 g/dL (13.0-16.5); Lymphocyte # 0.45 X10^3/ul (4.0); Lymphocyte % 8.2 % (19-41); Mean Corp Hgb Conc 29.8 g/dL (32-36); Monocyte# 0.67 X10^3/uL; Monocyte% 12.2 % (0-10); NRBC Flagged by Analyzer 0 % (0-5); Neutrophil # 4.22 X10^3/uL (2.7-7.7); Neutrophil % 77.2 % (47-70); POSITIVE COUNT YES; POSITIVE DIFFERENTIAL YES; Platelet Count 90 K/mm3 (150-450); RBC Distribution Width CV 14.5 % (11.6-14.6); RBC Distribution Width SD 50.2 fl (35.1-43.9); Red Blood Count 4.32 M/mm3 (4.6-6.2); White Blood Count 5.5 K/mm3 (4.4-11.0)
[2020-12-08 11:01] LABS: Differential Indicated SCAN CRITERIA MET
[2020-12-08 11:45] LABS: ALB/GLOB Ratio 0.8 RATIO (0.9-2.4); AST(SGOT) 19 U/L (15-37); Alanine Aminotransfer ALT/SGPT 43 U/L (16-61); Alkaline Phosphatase 93 U/L (45-117); Anion Gap 6 (5-15); BUN 40 mg/dL (7-18); BUN/Creat Ratio 18.9 RATIO (10-20); Chloride 111 mmol/L (98-107); Creatinine, Serum 2.12 mg/dL (0.70-1.30); EST Glomerular Filtration Rate 34 mL/min (>60); Est Glom Filt Rate - Afr Amer 41 mL/min (>60); Globulin 3.7 g/dL (2.2-4.2); Glucose 97 mg/dL (74-106); Potassium 4.5 mmol/L (3.5-5.1); Protein, Total 6.7 g/dL (6.4-8.2); Sodium Level 139 mmol/L (136-145)
[2020-12-10 08:41] LABS: Cyclosporine 683 ng/mL (100-400)
[2020-12-12 09:45] LABS: Absolute Lymphocyte Count 0.59 X10^3/uL (0.83-4.51); Absolute Neutrophil Count 4.6 X10^3/uL (2.0-7.7); Basophil# 0.02 X10^3/uL; Basophil% 0.3 % (0-1); Eosinophil# 0.09 X10^3/uL; Eosinophils% 1.5 % (0-5); Hematocrit 41.2 % (40-54); Hemoglobin 12.3 g/dL (13.0-16.5); Lymphocyte # 0.59 X10^3/ul (4.0); Lymphocyte % 9.9 % (19-41); Mean Corp Hgb Conc 29.9 g/dL (32-36); Mean Corpuscular Hgb 27.6 pg (27.0-32.0); Mean Corpuscular Volume 92.6 fL (80-94); Mean Platelet Vol. 10.4 fl (6.2-12.0); Monocyte# 0.61 X10^3/uL; Monocyte% 10.2 % (0-10); NRBC Flagged by Analyzer 0 % (0-5); Neutrophil # 4.63 X10^3/uL (2.7-7.7); Neutrophil % 77.4 % (47-70); POSITIVE DIFFERENTIAL YES; Platelet Count 148 K/mm3 (150-450); RBC Distribution Width CV 14.5 % (11.6-14.6); RBC Distribution Width SD 49.3 fl (35.1-43.9); Red Blood Count 4.45 M/mm3 (4.6-6.2)
[2020-12-12 09:46] LABS: Differential Indicated SCAN CRITERIA MET
[2020-12-12 10:25] LABS: ALB/GLOB Ratio 0.9 RATIO (0.9-2.4); AST(SGOT) 19 U/L (15-37); Alanine Aminotransfer ALT/SGPT 35 U/L (16-61); Albumin, Serum 3.2 g/dL (3.2-5.0); Alkaline Phosphatase 101 U/L (45-117); Anion Gap 10 (5-15); BUN 43 mg/dL (7-18); BUN/Creat Ratio 19.2 RATIO (10-20); Calcium,Total 9.1 mg/dL (8.5-10.1); Chloride 110 mmol/L (98-107); Cholesterol 154 mg/dL (200); Creatinine, Serum 2.24 mg/dL (0.70-1.30); EST Glomerular Filtration Rate 32 mL/min (>60); Est Glom Filt Rate - Afr Amer 39 mL/min (>60); Globulin 3.6 g/dL (2.2-4.2); Glucose 138 mg/dL (74-106); High Density Lipoprotein 36 mg/dL; Magnesium 1.5 mg/dL (1.6-2.6); Potassium 4.1 mmol/L (3.5-5.1); Protein, Total 6.8 g/dL (6.4-8.2); Sodium Level 138 mmol/L (136-145); Triglycerides 225 mg/dL; Uric Acid 6.5 mg/dL (3.5-7.2); Very Low Density Lipoprotein 45 mg/dL (5-40)
[2020-12-13 10:59] LABS: CMV by PCR Positive (Negative); Cyclosporine 879 ng/mL (100-400)
[2020-12-15 10:49] LABS: Absolute Lymphocyte Count 0.77 X10^3/uL (0.83-4.51); Absolute Neutrophil Count 5.5 X10^3/uL (2.0-7.7); Basophil# 0.05 X10^3/uL; Basophil% 0.7 % (0-1); Eosinophil# 0.07 X10^3/uL; Hematocrit 41.4 % (40-54); Hemoglobin 12.2 g/dL (13.0-16.5); Lymphocyte # 0.77 X10^3/ul (4.0); Lymphocyte % 10.7 % (19-41); Mean Corp Hgb Conc 29.5 g/dL (32-36); Mean Corpuscular Hgb 27.2 pg (27.0-32.0); Mean Corpuscular Volume 92.2 fL (80-94); Mean Platelet Vol. 10.1 fl (6.2-12.0); Monocyte# 0.74 X10^3/uL; Monocyte% 10.2 % (0-10); NRBC Flagged by Analyzer 0 % (0-5); Neutrophil # 5.49 X10^3/uL (2.7-7.7); Neutrophil % 75.9 % (47-70); Platelet Count 157 K/mm3 (150-450); RBC Distribution Width CV 14.9 % (11.6-14.6); RBC Distribution Width SD 50.4 fl (35.1-43.9); Red Blood Count 4.49 M/mm3 (4.6-6.2); White Blood Count 7.2 K/mm3 (4.4-11.0)
[2020-12-15 11:20] LABS: ALB/GLOB Ratio 0.9 RATIO (0.9-2.4); AST(SGOT) 20 U/L (15-37); Alanine Aminotransfer ALT/SGPT 32 U/L (16-61); Albumin, Serum 3.1 g/dL (3.2-5.0); Alkaline Phosphatase 104 U/L (45-117); Anion Gap 5 (5-15); BUN 38 mg/dL (7-18); BUN/Creat Ratio 17.4 RATIO (10-20); Chloride 117 mmol/L (98-107); Creatinine, Serum 2.18 mg/dL (0.70-1.30); EST Glomerular Filtration Rate 33 mL/min (>60); Est Glom Filt Rate - Afr Amer 40 mL/min (>60); Globulin 3.6 g/dL (2.2-4.2); Glucose 88 mg/dL (74-106); Potassium 3.8 mmol/L (3.5-5.1); Protein, Total 6.7 g/dL (6.4-8.2); Sodium Level 141 mmol/L (136-145)
[2020-12-17 14:09] LABS: HCV Quant. RNA PCR HCV Not Detected IU/mL (.)
[2020-12-19 10:43] LABS: Absolute Lymphocyte Count 1.19 X10^3/uL (0.83-4.51); Absolute Neutrophil Count 8.7 X10^3/uL (2.0-7.7); Basophil# 0.07 X10^3/uL; Basophil% 0.6 % (0-1); Eosinophil# 0.05 X10^3/uL; Eosinophils% 0.4 % (0-5); Hematocrit 42.3 % (40-54); Hemoglobin 12.9 g/dL (13.0-16.5); Lymphocyte # 1.19 X10^3/ul (4.0); Lymphocyte % 10.6 % (19-41); Mean Corp Hgb Conc 30.5 g/dL (32-36); Mean Corpuscular Hgb 28.2 pg (27.0-32.0); Mean Corpuscular Volume 92.6 fL (80-94); Mean Platelet Vol. 10.7 fl (6.2-12.0); Monocyte# 0.86 X10^3/uL; Monocyte% 7.7 % (0-10); NRBC Flagged by Analyzer 0.2 % (0-5); Neutrophil # 8.67 X10^3/uL (2.7-7.7); Neutrophil % 77.5 % (47-70); Platelet Count 176 K/mm3 (150-450); RBC Distribution Width CV 15.2 % (11.6-14.6); RBC Distribution Width SD 51.8 fl (35.1-43.9); Red Blood Count 4.57 M/mm3 (4.6-6.2); White Blood Count 11.2 K/mm3 (4.4-11.0)
[2020-12-19 11:22] LABS: ALB/GLOB Ratio 0.9 RATIO (0.9-2.4); AST(SGOT) 23 U/L (15-37); Alanine Aminotransfer ALT/SGPT 33 U/L (16-61); Albumin, Serum 3.1 g/dL (3.2-5.0); Alkaline Phosphatase 109 U/L (45-117); Anion Gap 9 (5-15); BUN 43 mg/dL (7-18); BUN/Creat Ratio 18.3 RATIO (10-20); Calcium,Total 8.9 mg/dL (8.5-10.1); Chloride 114 mmol/L (98-107); Creatinine, Serum 2.35 mg/dL (0.70-1.30); EST Glomerular Filtration Rate 30 mL/min (>60); Est Glom Filt Rate - Afr Amer 37 mL/min (>60); Globulin 3.6 g/dL (2.2-4.2); Glucose 133 mg/dL (74-106); Protein, Total 6.7 g/dL (6.4-8.2); Sodium Level 142 mmol/L (136-145)
[2020-12-22 10:17] LABS: Absolute Lymphocyte Count 1.23 X10^3/uL (0.83-4.51); Absolute Neutrophil Count 7.8 X10^3/uL (2.0-7.7); Basophil# 0.11 X10^3/uL; Eosinophil# 0.04 X10^3/uL; Eosinophils% 0.4 % (0-5); Hematocrit 42.4 % (40-54); Hemoglobin 12.7 g/dL (13.0-16.5); Lymphocyte # 1.23 X10^3/ul (4.0); Lymphocyte % 11.6 % (19-41); Mean Corpuscular Hgb 27.9 pg (27.0-32.0); Mean Platelet Vol. 10.5 fl (6.2-12.0); Monocyte% 9.5 % (0-10); NRBC Flagged by Analyzer 0.2 % (0-5); Neutrophil # 7.82 X10^3/uL (2.7-7.7); Neutrophil % 74.1 % (47-70); Platelet Count 178 K/mm3 (150-450); RBC Distribution Width CV 15.4 % (11.6-14.6); RBC Distribution Width SD 52.8 fl (35.1-43.9); Red Blood Count 4.56 M/mm3 (4.6-6.2); White Blood Count 10.6 K/mm3 (4.4-11.0)
[2020-12-22 10:58] LABS: ALB/GLOB Ratio 0.8 RATIO (0.9-2.4); AST(SGOT) 23 U/L (15-37); Alanine Aminotransfer ALT/SGPT 32 U/L (16-61); Alkaline Phosphatase 110 U/L (45-117); Anion Gap 7 (5-15); BUN 45 mg/dL (7-18); BUN/Creat Ratio 19.8 RATIO (10-20); Calcium,Total 8.8 mg/dL (8.5-10.1); Chloride 115 mmol/L (98-107); Creatinine, Serum 2.27 mg/dL (0.70-1.30); EST Glomerular Filtration Rate 32 mL/min (>60); Est Glom Filt Rate - Afr Amer 38 mL/min (>60); Globulin 3.6 g/dL (2.2-4.2); Glucose 136 mg/dL (74-106); Potassium 4.2 mmol/L (3.5-5.1); Protein, Total 6.6 g/dL (6.4-8.2); Sodium Level 142 mmol/L (136-145)
[2020-12-26 17:03] LABS: CMV by PCR Negative (Negative); Cyclosporine 534 ng/mL (100-400)
== END 2020-12-22 18:00 | disposition home or self-care (01) ==
LOC: LAB 09:26
PROVIDERS: PCP Family Medicine
DX: Z09 Encounter for follow-up examination after completed treatment for conditions other than malignant neoplasm (principal); Z11.59 Encounter for screening for other viral diseases; D89.9 Disorder involving the immune mechanism, unspecified; D64.9 Anemia, unspecified; E78.5 Hyperlipidemia, unspecified; B34.8 Other viral infections of unspecified site; R79.9 Abnormal finding of blood chemistry, unspecified; Z94.0 Kidney transplant status
CPT/HCPCS: 36415; 80053; 80061; 80158; 82570; 83735; 84100; 84156; 84550; 85025; 87496; 87522

== ENCOUNTER 2021-01-16 08:51 | Outpatient (RCR) | payer MEDICARE, SELFPAY ==
[2020-10-15 09:25] VITALS: BMI 28.1
[2020-12-26 10:09] LABS: Absolute Lymphocyte Count 1.22 X10^3/uL (0.83-4.51); Absolute Neutrophil Count 9.2 X10^3/uL (2.0-7.7); Basophil% 0.9 % (0-1); Eosinophil# 0.02 X10^3/uL; Eosinophils% 0.2 % (0-5); Hematocrit 41.6 % (40-54); Hemoglobin 12.9 g/dL (13.0-16.5); Lymphocyte # 1.22 X10^3/ul (4.0); Lymphocyte % 10.4 % (19-41); Mean Corpuscular Hgb 28.7 pg (27.0-32.0); Mean Corpuscular Volume 92.4 fL (80-94); Mean Platelet Vol. 10.9 fl (6.2-12.0); Monocyte# 0.99 X10^3/uL; Monocyte% 8.5 % (0-10); NRBC Flagged by Analyzer 0 % (0-5); Neutrophil # 9.19 X10^3/uL (2.7-7.7); Neutrophil % 78.5 % (47-70); Platelet Count 177 K/mm3 (150-450); RBC Distribution Width CV 15.8 % (11.6-14.6); RBC Distribution Width SD 53.5 fl (35.1-43.9); White Blood Count 11.7 K/mm3 (4.4-11.0)
[2020-12-26 10:40] LABS: AST(SGOT) 20 U/L (15-37); Alanine Aminotransfer ALT/SGPT 30 U/L (16-61); Albumin, Serum 3.4 g/dL (3.2-5.0); Alkaline Phosphatase 107 U/L (45-117); Anion Gap 9 (5-15); BUN 47 mg/dL (7-18); BUN/Creat Ratio 17.8 RATIO (10-20); Calcium,Total 9.2 mg/dL (8.5-10.1); Chloride 113 mmol/L (98-107); Creatinine, Serum 2.64 mg/dL (0.70-1.30); EST Glomerular Filtration Rate 27 mL/min (>60); Est Glom Filt Rate - Afr Amer 32 mL/min (>60); Globulin 3.5 g/dL (2.2-4.2); Glucose 127 mg/dL (74-106); Potassium 3.8 mmol/L (3.5-5.1); Protein, Total 6.9 g/dL (6.4-8.2); Sodium Level 141 mmol/L (136-145)
[2020-12-26 10:44] LABS: Hemoglobin A1c 6.9 % (3.8-5.6)
[2020-12-29 11:13] LABS: Absolute Lymphocyte Count 1.21 X10^3/uL (0.83-4.51); Absolute Neutrophil Count 12.2 X10^3/uL (2.0-7.7); Basophil# 0.07 X10^3/uL; Basophil% 0.5 % (0-1); Eosinophil# 0.03 X10^3/uL; Eosinophils% 0.2 % (0-5); Hematocrit 41.9 % (40-54); Hemoglobin 12.5 g/dL (13.0-16.5); Lymphocyte # 1.21 X10^3/ul (4.0); Lymphocyte % 8.2 % (19-41); Mean Corp Hgb Conc 29.8 g/dL (32-36); Mean Corpuscular Hgb 27.4 pg (27.0-32.0); Mean Corpuscular Volume 91.9 fL (80-94); Mean Platelet Vol. 10.8 fl (6.2-12.0); Monocyte# 1.09 X10^3/uL; Monocyte% 7.4 % (0-10); NRBC Flagged by Analyzer 0 % (0-5); Neutrophil # 12.17 X10^3/uL (2.7-7.7); Neutrophil % 82.8 % (47-70); Platelet Count 184 K/mm3 (150-450); RBC Distribution Width CV 15.6 % (11.6-14.6); RBC Distribution Width SD 53.1 fl (35.1-43.9); Red Blood Count 4.56 M/mm3 (4.6-6.2); White Blood Count 14.7 K/mm3 (4.4-11.0)
[2020-12-29 11:50] LABS: AST(SGOT) 16 U/L (15-37); Alanine Aminotransfer ALT/SGPT 29 U/L (16-61); Albumin, Serum 3.4 g/dL (3.2-5.0); Alkaline Phosphatase 104 U/L (45-117); Anion Gap 7 (5-15); BUN 47 mg/dL (7-18); BUN/Creat Ratio 19.3 RATIO (10-20); Calcium,Total 9.2 mg/dL (8.5-10.1); Chloride 114 mmol/L (98-107); Creatinine, Serum 2.43 mg/dL (0.70-1.30); EST Glomerular Filtration Rate 29 mL/min (>60); Est Glom Filt Rate - Afr Amer 35 mL/min (>60); Globulin 3.3 g/dL (2.2-4.2); Glucose 93 mg/dL (74-106); Potassium 3.9 mmol/L (3.5-5.1); Protein, Total 6.7 g/dL (6.4-8.2); Sodium Level 141 mmol/L (136-145)
[2021-01-02 09:59] LABS: Absolute Lymphocyte Count 1.22 X10^3/uL (0.83-4.51); Absolute Neutrophil Count 10.1 X10^3/uL (2.0-7.7); Basophil# 0.06 X10^3/uL; Basophil% 0.5 % (0-1); Eosinophil# 0.09 X10^3/uL; Eosinophils% 0.7 % (0-5); Hematocrit 41.1 % (40-54); Hemoglobin 12.6 g/dL (13.0-16.5); Lymphocyte # 1.22 X10^3/ul (4.0); Lymphocyte % 9.6 % (19-41); Mean Corp Hgb Conc 30.7 g/dL (32-36); Mean Corpuscular Hgb 28.4 pg (27.0-32.0); Mean Corpuscular Volume 92.8 fL (80-94); Mean Platelet Vol. 10.6 fl (6.2-12.0); Monocyte# 1.17 X10^3/uL; Monocyte% 9.2 % (0-10); NRBC Flagged by Analyzer 0 % (0-5); Neutrophil # 10.05 X10^3/uL (2.7-7.7); Neutrophil % 79.3 % (47-70); Platelet Count 171 K/mm3 (150-450); RBC Distribution Width CV 15.6 % (11.6-14.6); RBC Distribution Width SD 53.6 fl (35.1-43.9); Red Blood Count 4.43 M/mm3 (4.6-6.2); White Blood Count 12.7 K/mm3 (4.4-11.0)
[2021-01-02 10:29] LABS: AST(SGOT) 17 U/L (15-37); Alanine Aminotransfer ALT/SGPT 23 U/L (16-61); Albumin, Serum 3.3 g/dL (3.2-5.0); Alkaline Phosphatase 94 U/L (45-117); Anion Gap 9 (5-15); BUN 48 mg/dL (7-18); BUN/Creat Ratio 20.9 RATIO (10-20); Chloride 117 mmol/L (98-107); EST Glomerular Filtration Rate 31 mL/min (>60); Est Glom Filt Rate - Afr Amer 38 mL/min (>60); Globulin 3.2 g/dL (2.2-4.2); Glucose 96 mg/dL (74-106); Potassium 4.2 mmol/L (3.5-5.1); Protein, Total 6.5 g/dL (6.4-8.2); Sodium Level 144 mmol/L (136-145)
[2021-01-03 10:17] LABS: Cyclosporine 476 ng/mL (100-400)
[2021-01-05 15:35] LABS: Cyclosporine 535 ng/mL (100-400)
[2021-01-09 10:12] LABS: Absolute Lymphocyte Count 1.14 X10^3/uL (0.83-4.51); Absolute Neutrophil Count 7.5 X10^3/uL (2.0-7.7); Basophil# 0.05 X10^3/uL; Basophil% 0.5 % (0-1); Eosinophil# 0.16 X10^3/uL; Eosinophils% 1.6 % (0-5); Hematocrit 42.1 % (40-54); Lymphocyte # 1.14 X10^3/ul (4.0); Lymphocyte % 11.7 % (19-41); Mean Corp Hgb Conc 30.9 g/dL (32-36); Mean Corpuscular Hgb 28.5 pg (27.0-32.0); Mean Corpuscular Volume 92.3 fL (80-94); Mean Platelet Vol. 10.5 fl (6.2-12.0); Monocyte# 0.83 X10^3/uL; Monocyte% 8.5 % (0-10); NRBC Flagged by Analyzer 0 % (0-5); Neutrophil # 7.49 X10^3/uL (2.7-7.7); Neutrophil % 77.2 % (47-70); Platelet Count 204 K/mm3 (150-450); RBC Distribution Width CV 15.7 % (11.6-14.6); RBC Distribution Width SD 53.1 fl (35.1-43.9); Red Blood Count 4.56 M/mm3 (4.6-6.2); White Blood Count 9.7 K/mm3 (4.4-11.0)
[2021-01-09 10:33] LABS: PTHIN 145.5 pg/mL (18.4-80.1); Protein, Urine (Random) 14.8 mg/dL (<11.9); Protein:Creat Ratio 422 mg/g CRE (0-200)
[2021-01-09 10:49] LABS: AST(SGOT) 14 U/L (15-37); Alanine Aminotransfer ALT/SGPT 20 U/L (16-61); Albumin, Serum 3.3 g/dL (3.2-5.0); Alkaline Phosphatase 87 U/L (45-117); Anion Gap 8 (5-15); BUN 48 mg/dL (7-18); BUN/Creat Ratio 19.7 RATIO (10-20); Chloride 115 mmol/L (98-107); Cholesterol 163 mg/dL (200); Creatinine, Serum 2.44 mg/dL (0.70-1.30); EST Glomerular Filtration Rate 29 mL/min (>60); Est Glom Filt Rate - Afr Amer 35 mL/min (>60); Ferritin 1502 ng/mL (26-388); Globulin 3.2 g/dL (2.2-4.2); Glucose 107 mg/dL (74-106); High Density Lipoprotein 37 mg/dL; Iron 69 ug/dL (65-175); Iron Binding Capacity,Total 223 ug/dL (250-450); Magnesium 1.7 mg/dL (1.6-2.6); Phosphorus 2.8 mg/dL (2.5-4.9); Potassium 4.2 mmol/L (3.5-5.1); Protein, Total 6.5 g/dL (6.4-8.2); Sodium Level 142 mmol/L (136-145); Triglycerides 240 mg/dL; Uric Acid 7.4 mg/dL (3.5-7.2); Very Low Density Lipoprotein 48 mg/dL (5-40)
[2021-01-13 12:10] LABS: Cyclosporine 682 ng/mL (100-400); Transferrin 181 mg/dL (177-329)
[2021-01-16 09:42] LABS: Absolute Lymphocyte Count 1.41 X10^3/uL (0.83-4.51); Absolute Neutrophil Count 8.6 X10^3/uL (2.0-7.7); Basophil# 0.07 X10^3/uL; Basophil% 0.6 % (0-1); Eosinophils% 1.7 % (0-5); Hematocrit 44.3 % (40-54); Hemoglobin 13.3 g/dL (13.0-16.5); Lymphocyte # 1.41 X10^3/ul (4.0); Lymphocyte % 12.2 % (19-41); Mean Corpuscular Hgb 28.1 pg (27.0-32.0); Mean Corpuscular Volume 93.5 fL (80-94); Mean Platelet Vol. 10.1 fl (6.2-12.0); Monocyte# 1.17 X10^3/uL; Monocyte% 10.1 % (0-10); NRBC Flagged by Analyzer 0 % (0-5); Neutrophil # 8.55 X10^3/uL (2.7-7.7); Neutrophil % 73.9 % (47-70); Platelet Count 205 K/mm3 (150-450); RBC Distribution Width SD 51.8 fl (35.1-43.9); Red Blood Count 4.74 M/mm3 (4.6-6.2); White Blood Count 11.6 K/mm3 (4.4-11.0)
[2021-01-16 10:47] LABS: Anion Gap 8 (5-15); BUN 37 mg/dL (7-18); Chloride 110 mmol/L (98-107); EST Glomerular Filtration Rate 31 mL/min (>60); Est Glom Filt Rate - Afr Amer 38 mL/min (>60); Glucose 88 mg/dL (74-106); Potassium 4.2 mmol/L (3.5-5.1); Sodium Level 142 mmol/L (136-145)
[2021-01-19 20:24] LABS: Cyclosporine 484 ng/mL (100-400)
== END 2021-01-16 18:00 | disposition home or self-care (01) ==
LOC: LAB 08:51
PROVIDERS: PCP Family Medicine
DX: Z94.0 Kidney transplant status (principal); E78.2 Mixed hyperlipidemia; D64.9 Anemia, unspecified; D72.9 Disorder of white blood cells, unspecified; R79.9 Abnormal finding of blood chemistry, unspecified; Z09 Encounter for follow-up examination after completed treatment for conditions other than malignant neoplasm
CPT/HCPCS: 36415; 80051; 80053; 80061; 80158; 82565; 82570; 82728; 82947; 83036; 83540; 83550; 83735; 83970; 84100; 84156; 84466; 84520; 84550; 85025; 87496

== ENCOUNTER 2021-02-13 10:54 | Outpatient (RCR) | payer MEDICARE, SELFPAY ==
[2020-10-15 09:25] VITALS: BMI 28.1
[2021-01-24 09:41] LABS: Absolute Lymphocyte Count 1.29 X10^3/uL (0.83-4.51); Absolute Neutrophil Count 10.4 X10^3/uL (2.0-7.7); Basophil# 0.06 X10^3/uL; Basophil% 0.5 % (0-1); Eosinophils% 1.5 % (0-5); Hematocrit 46.5 % (40-54); Hemoglobin 13.6 g/dL (13.0-16.5); Lymphocyte # 1.29 X10^3/ul (4.0); Lymphocyte % 9.7 % (19-41); Mean Corp Hgb Conc 29.2 g/dL (32-36); Mean Corpuscular Hgb 27.6 pg (27.0-32.0); Mean Corpuscular Volume 94.5 fL (80-94); Mean Platelet Vol. 10.4 fl (6.2-12.0); Monocyte# 1.17 X10^3/uL; Monocyte% 8.8 % (0-10); NRBC Flagged by Analyzer 0 % (0-5); Neutrophil # 10.42 X10^3/uL (2.7-7.7); Neutrophil % 78.4 % (47-70); Platelet Count 202 K/mm3 (150-450); RBC Distribution Width CV 14.5 % (11.6-14.6); RBC Distribution Width SD 50.8 fl (35.1-43.9); Red Blood Count 4.92 M/mm3 (4.6-6.2); White Blood Count 13.3 K/mm3 (4.4-11.0)
[2021-01-24 10:10] LABS: Anion Gap 7 (5-15); BUN 42 mg/dL (7-18); Chloride 111 mmol/L (98-107); Creatinine, Serum 2.41 mg/dL (0.70-1.30); EST Glomerular Filtration Rate 30 mL/min (>60); Est Glom Filt Rate - Afr Amer 36 mL/min (>60); Glucose 96 mg/dL (74-106); Potassium 4.1 mmol/L (3.5-5.1); Sodium Level 141 mmol/L (136-145)
[2021-01-24 11:34] LABS: AST(SGOT) 17 U/L (15-37); Alanine Aminotransfer ALT/SGPT 25 U/L (16-61); Albumin, Serum 3.5 g/dL (3.2-5.0); Alkaline Phosphatase 97 U/L (45-117)
[2021-01-27 16:34] LABS: Cyclosporine 544 ng/mL (100-400)
[2021-02-13 11:24] LABS: Absolute Lymphocyte Count 0.91 X10^3/uL (0.83-4.51); Absolute Neutrophil Count 11.4 X10^3/uL (2.0-7.7); Basophil# 0.05 X10^3/uL; Basophil% 0.4 % (0-1); Eosinophil# 0.19 X10^3/uL; Eosinophils% 1.4 % (0-5); Hematocrit 44.8 % (40-54); Lymphocyte # 0.91 X10^3/ul (4.0); Lymphocyte % 6.5 % (19-41); Mean Corp Hgb Conc 31.3 g/dL (32-36); Mean Corpuscular Hgb 29.3 pg (27.0-32.0); Mean Corpuscular Volume 93.7 fL (80-94); Mean Platelet Vol. 10.2 fl (6.2-12.0); Monocyte% 8.6 % (0-10); NRBC Flagged by Analyzer 0 % (0-5); Neutrophil # 11.42 X10^3/uL (2.7-7.7); Neutrophil % 82.2 % (47-70); Platelet Count 228 K/mm3 (150-450); RBC Distribution Width CV 14.2 % (11.6-14.6); RBC Distribution Width SD 48.8 fl (35.1-43.9); Red Blood Count 4.78 M/mm3 (4.6-6.2); White Blood Count 13.9 K/mm3 (4.4-11.0)
[2021-02-13 12:02] LABS: ALB/GLOB Ratio 1.1 RATIO (0.9-2.4); AST(SGOT) 15 U/L (15-37); Alanine Aminotransfer ALT/SGPT 22 U/L (16-61); Albumin, Serum 3.4 g/dL (3.2-5.0); Alkaline Phosphatase 94 U/L (45-117); Anion Gap 6 (5-15); BUN 48 mg/dL (7-18); BUN/Creat Ratio 20.9 RATIO (10-20); Calcium,Total 9.1 mg/dL (8.5-10.1); Chloride 113 mmol/L (98-107); Cholesterol 149 mg/dL (200); EST Glomerular Filtration Rate 31 mL/min (>60); Est Glom Filt Rate - Afr Amer 38 mL/min (>60); Globulin 3.2 g/dL (2.2-4.2); Glucose 195 mg/dL (74-106); High Density Lipoprotein 34 mg/dL; Magnesium 1.8 mg/dL (1.6-2.6); Phosphorus 3.1 mg/dL (2.5-4.9); Potassium 4.5 mmol/L (3.5-5.1); Protein, Total 6.6 g/dL (6.4-8.2); Sodium Level 141 mmol/L (136-145); Triglycerides 255 mg/dL; Uric Acid 8.2 mg/dL (3.5-7.2); Very Low Density Lipoprotein 51 mg/dL (5-40)
[2021-02-16 09:08] LABS: HCV Quant. RNA PCR HCV Not Detected IU/mL (.)
[2021-02-16 09:51] LABS: Cyclosporine 197 ng/mL (100-400)
== END 2021-02-13 18:00 | disposition home or self-care (01) ==
LOC: LAB 10:54
PROVIDERS: PCP Family Medicine
DX: R79.9 Abnormal finding of blood chemistry, unspecified (principal); Z94.0 Kidney transplant status; Z79.899 Other long term (current) drug therapy; D84.9 Immunodeficiency, unspecified; D50.0 Iron deficiency anemia secondary to blood loss (chronic); R68.89 Other general symptoms and signs
CPT/HCPCS: 36415; 80051; 80053; 80061; 80158; 82040; 82247; 82565; 82947; 83036; 83735; 84075; 84100; 84450; 84460; 84520; 84550; 85025; 87522

== ENCOUNTER 2021-02-21 09:19 | Outpatient (RCR) | payer MEDICARE, SELFPAY ==
[2020-10-15 09:25] VITALS: BMI 28.1
--- NOTE | 2021-03-03 08:07 | HP.OTFCE_ITS ---
Floor (Occasional 1-33% of Day): 20# Floor (Frequent 34-66% of Day): 10# Floor (Constant 67-100% of Day): NA Floor PDL: Light Knee (Occasional 1-33% of Day): 20# Knee (Frequent 34-66% of Day): 10# Knee (Constant 67-100% of Day): NA Knee PDL: Light Waist (Occasional 1-33% of Day): 20# Waist (Frequent 34-66% of Day): 10# Waist (Constant 67-100% of Day): NA Waist PDL: Light Shoulder (Occasional 1-33% of Day): 20# Shoulder (Frequent 34-66% of Day): 10# Shoulder (Constant 67-100% of Day): NA Shoulder PDL: Light Overhead (Occasional 1-33% of Day): 10# Overhead (Frequent 34-66% of Day): NA Overhead (Constant 67-100% of Day): NA Overhead PDL: Sedentary Bending: Occasional Ability (1-33% of day) Comments: low occasional ability Squatting: Occasional Ability (1-33% of day) Comments: low occasional ability Kneeling: No Ablility (0% of day) Reaching out: Occasional Ability (1-33% of day) Reaching up: Occasional Ability (1-33% of day) Sitting: Frequent Ability (34-66% of day) Walking: Occasional Ability (1-33% of day) Comments: low occasional ability due to spO2 drops Standing: Occasional Ability (1-33% of day) Duration Sedentary Sedentary Light Light Light Medium Medium Medium Heavy Very Heavy Heavy Occasional (0-33% of day) Frequent (34-66% of day) Constant (67-100% of day) 10 # Negligible Negligible 15 # 8 # Negligible 20 # 10# Negli. 35 # 18 # 7 # 50 # 25 # 10 # 75 # 100 # >100 # 38 # 50 # >50 # 15 # 20 # >20 # Height: 1.78 m Weight:: 97.069 kg Hand Dominance: right Medical History Including Restrictions: Pt states he was in good health until age 57 years age. pt states he had kidney disease, pt states he was dx with mera disease. pt states he was on dyalisis for about three years until he recived a kidney transplant Jun 2020. pt states he feels the transplant was sucessful but continues have challenges with his blood levels. pt with high blood pressure for years, CHF among other dx. pt states he struggles with energy level, fatigue sleeps 7-10 hours and nap during the afternoon. this limits pts ind. with home mtg and. pt states he does see arthritis for his autoimune disease. Diagnoses: Waygers desease. Renal transplant. fatigue. weakness. debility Symptoms: SOB. weakness. fatigue. brain fog. 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 Behavioral: Pt was cooperative throughout assessment ADLS: Pt live with in one story home with three entry steps with one hand rail. pt states they did build a ramp for threshold. pt has tub shower combination with rails, state he is ind. with dressing. pt states does the cooking, cleaning and laundry is in basement. pt states he struggles with energy to perform ADLs and home mtg tasks. pt Drives ind. pts works at [employer] care works 4 days a week ROM: pt demo ROM WNL Strength: pt demo a MMT of BUE/LE of 4-/5. pt demo Right Hr Operations Advisor Strength Average: 50.00 Right Hr Operations Advisor Strength Percentile: >4.8% Left Hr Operations Advisor Strength Average: 61.66 Left Hr Operations Advisor Strength Percentile: 7.4% Right Lateral Pinch Average: 20.66 Right Lateral Pinch Percentile: 50% Left Lateral Pinch Average: 20.00 Left Lateral Pinch Percentile: 75% Right Tripod Pinch Average: 12.00 Right Tripod Pinch Percentile: 10% Left Tripod Pinch Average: 12.00 Left Tripod Pinch Percentile: 10% Comments: heart rate 61 Sensation: denies Fine Motor: denies Balance: Pt demo with F+/G balance during assessment. no loss of balanced noted during assessment. Bending: pt demo the ability to bend forward three times, ten times pt completed 10 x but no increase in speed- pt SOB and dizzy. pts spO2 93 pt can bend forward on a low occasional ability Squatting: Pt demo the ability to squat three times and completed 6/10 . pt limited motion with squat and hips demo weakness with rotating- pt can squat on a low occasional ability Kneeling: no ability Reaching out/up: pt demo the ability to reach up/out and ten times follow 10 x rapidly. pt completed this tasks while sitting. Walking: pt demo the ability to ambulate 5 min with spO2 to 88. pt states he can feel he gets SOB Standing: pt demo the ability to stand for 6 min with shifting weight. pt noted increase SOB with standing and communication. pts spO2 drop from 97 to 93. pt has occasional ability to stand Sitting: pt demo the ability to sit for 40 min with no expressed or apparent discomfort Climbing Stairs: pt demo the ability to ascend ten steps witha reciprical step pattern, descending pt did use a reciprical step pattern and use of handrails. Floor Lift: Pt demo the ability to lift 20# from this level with good lifting mechanics. Knee Lift: Pt demo the ability to lift 20# from this level with good lifting mechanics. Waist Lift: Pt demo the ability to lift 20# from this level with good lifting mechanics. Shoulder Lift: Pt demo the ability to lift 20# from this level with good lifting mechanics. Overhead Lift: Pt demo the ability to lift 10# from this level with good lifting mechanics. Carrying: pt demo the ability to carry 15# for 40 feet with fair ability. Comments: pt SOB with active
--- NOTE | 2021-03-03 08:07 | HP.OTFCE.D ---
FCE D/C Summary - Discharge ROBERT DIEZ was seen for a one time visit for an FCE on 02/21/21 and is discharged.
== END 2021-02-21 19:00 | disposition home or self-care (01) ==
LOC: OT 09:19
PROVIDERS: PCP Family Medicine; Referring Provider Family Medicine; Visit Provider Family Medicine
DX: R53.1 Weakness (principal); R53.81 Other malaise; R53.83 Other fatigue; Z94.0 Kidney transplant status
CPT/HCPCS: 97750

== ENCOUNTER 2021-03-13 09:43 | Outpatient (RCR) | payer MEDICARE, SELFPAY ==
[2020-10-15 09:25] VITALS: BMI 28.1
[2021-02-27 10:42] LABS: Absolute Lymphocyte Count 1.06 X10^3/uL (0.83-4.51); Absolute Neutrophil Count 10.8 X10^3/uL (2.0-7.7); Basophil# 0.05 X10^3/uL; Basophil% 0.4 % (0-1); Eosinophil# 0.12 X10^3/uL; Eosinophils% 0.9 % (0-5); Hematocrit 45.4 % (40-54); Hemoglobin 13.7 g/dL (13.0-16.5); Lymphocyte # 1.06 X10^3/ul (4.0); Lymphocyte % 8.1 % (19-41); Mean Corp Hgb Conc 30.2 g/dL (32-36); Mean Corpuscular Hgb 28.4 pg (27.0-32.0); Mean Corpuscular Volume 94.2 fL (80-94); Mean Platelet Vol. 10.5 fl (6.2-12.0); Monocyte# 0.86 X10^3/uL; Monocyte% 6.6 % (0-10); NRBC Flagged by Analyzer 0 % (0-5); Neutrophil # 10.83 X10^3/uL (2.7-7.7); Neutrophil % 82.7 % (47-70); Platelet Count 218 K/mm3 (150-450); RBC Distribution Width CV 13.9 % (11.6-14.6); RBC Distribution Width SD 47.3 fl (35.1-43.9); Red Blood Count 4.82 M/mm3 (4.6-6.2); White Blood Count 13.1 K/mm3 (4.4-11.0)
[2021-02-27 11:05] LABS: Anion Gap 6 (5-15); BUN 40 mg/dL (7-18); Chloride 110 mmol/L (98-107); Creatinine, Serum 2.36 mg/dL (0.70-1.30); EST Glomerular Filtration Rate 30 mL/min (>60); Est Glom Filt Rate - Afr Amer 37 mL/min (>60); Potassium 4.5 mmol/L (3.5-5.1); Sodium Level 141 mmol/L (136-145)
[2021-03-13 10:55] LABS: Absolute Lymphocyte Count 1.29 X10^3/uL (0.83-4.51); Absolute Neutrophil Count 8.7 X10^3/uL (2.0-7.7); Basophil# 0.06 X10^3/uL; Basophil% 0.5 % (0-1); Eosinophil# 0.12 X10^3/uL; Hematocrit 47.8 % (40-54); Hemoglobin 14.6 g/dL (13.0-16.5); Lymphocyte # 1.29 X10^3/ul (0.83-4.51); Lymphocyte % 11.2 % (19-41); Mean Corp Hgb Conc 30.5 g/dL (32-36); Mean Corpuscular Hgb 28.2 pg (27.0-32.0); Mean Corpuscular Volume 92.3 fL (80-94); Mean Platelet Vol. 10.6 fl (6.2-12.0); Monocyte# 1.18 X10^3/uL; Monocyte% 10.3 % (0-10); NRBC Flagged by Analyzer 0 % (0-5); Neutrophil % 75.8 % (47-70); Platelet Count 216 K/mm3 (150-450); RBC Distribution Width CV 13.7 % (11.6-14.6); RBC Distribution Width SD 47.1 fl (35.1-43.9); Red Blood Count 5.18 M/mm3 (4.6-6.2); White Blood Count 11.5 K/mm3 (4.4-11.0)
[2021-03-13 11:15] LABS: ALB/GLOB Ratio 1.1 RATIO (0.9-2.4); AST(SGOT) 11 U/L (15-37); Alanine Aminotransfer ALT/SGPT 24 U/L (16-61); Albumin, Serum 3.5 g/dL (3.2-5.0); Alkaline Phosphatase 85 U/L (45-117); Anion Gap 5 (5-15); BUN 42 mg/dL (7-18); BUN/Creat Ratio 19.1 RATIO (10-20); Chloride 108 mmol/L (98-107); EST Glomerular Filtration Rate 33 mL/min (>60); Est Glom Filt Rate - Afr Amer 40 mL/min (>60); Globulin 3.1 g/dL (2.2-4.2); Glucose 109 mg/dL (74-106); Magnesium 1.8 mg/dL (1.6-2.6); Phosphorus 3.3 mg/dL (2.5-4.9); Potassium 4.1 mmol/L (3.5-5.1); Protein, Total 6.6 g/dL (6.4-8.2); Sodium Level 138 mmol/L (136-145); Uric Acid 7.5 mg/dL (3.5-7.2)
[2021-03-16 17:06] LABS: Cyclosporine 552 ng/mL (100-400)
== END 2021-03-13 18:00 | disposition home or self-care (01) ==
LOC: LAB 09:43
PROVIDERS: PCP Family Medicine
DX: Z48.298 Encounter for aftercare following other organ transplant (principal); D89.9 Disorder involving the immune mechanism, unspecified; D50.0 Iron deficiency anemia secondary to blood loss (chronic); D84.9 Immunodeficiency, unspecified; R79.9 Abnormal finding of blood chemistry, unspecified; R68.89 Other general symptoms and signs; Z94.0 Kidney transplant status; Z79.899 Other long term (current) drug therapy
CPT/HCPCS: 36415; 80051; 80053; 80158; 82565; 83735; 84100; 84520; 84550; 85025

== ENCOUNTER 2021-04-10 09:50 | Outpatient (RCR) | payer MEDICARE, SELFPAY ==
[2020-10-15 09:25] VITALS: BMI 28.1
[2021-03-28 10:58] LABS: Absolute Lymphocyte Count 1.03 X10^3/uL (0.83-4.51); Absolute Neutrophil Count 7.6 X10^3/uL (2.0-7.7); Basophil# 0.07 X10^3/uL; Basophil% 0.7 % (0-1); Eosinophil# 0.14 X10^3/uL; Eosinophils% 1.4 % (0-5); Hematocrit 48.1 % (40-54); Hemoglobin 14.4 g/dL (13.0-16.5); Lymphocyte # 1.03 X10^3/ul (0.83-4.51); Lymphocyte % 10.4 % (19-41); Mean Corp Hgb Conc 29.9 g/dL (32-36); Mean Corpuscular Hgb 27.5 pg (27.0-32.0); Mean Corpuscular Volume 91.8 fL (80-94); Mean Platelet Vol. 10.5 fl (6.2-12.0); Monocyte# 0.96 X10^3/uL; Monocyte% 9.7 % (0-10); NRBC Flagged by Analyzer 0 % (0-5); Neutrophil # 7.61 X10^3/uL (2.7-7.7); Neutrophil % 76.6 % (47-70); Platelet Count 208 K/mm3 (150-450); RBC Distribution Width CV 13.2 % (11.6-14.6); RBC Distribution Width SD 44.7 fl (35.1-43.9); Red Blood Count 5.24 M/mm3 (4.6-6.2); White Blood Count 9.9 K/mm3 (4.4-11.0)
[2021-03-28 11:44] LABS: Anion Gap 10 (5-15); BUN 43 mg/dL (7-18); Chloride 106 mmol/L (98-107); Creatinine, Serum 2.54 mg/dL (0.70-1.30); EST Glomerular Filtration Rate 28 mL/min (>60); Est Glom Filt Rate - Afr Amer 34 mL/min (>60); Glucose 117 mg/dL (74-106); Potassium 3.6 mmol/L (3.5-5.1); Sodium Level 140 mmol/L (136-145)
[2021-03-31 08:40] LABS: Cyclosporine 679 ng/mL (100-400)
[2021-04-10 10:25] LABS: Absolute Lymphocyte Count 1.31 X10^3/uL (0.83-4.51); Absolute Neutrophil Count 6.1 X10^3/uL (2.0-7.7); Basophil# 0.06 X10^3/uL; Basophil% 0.7 % (0-1); Eosinophil# 0.14 X10^3/uL; Eosinophils% 1.6 % (0-5); Hematocrit 47.7 % (40-54); Lymphocyte # 1.31 X10^3/ul (0.83-4.51); Mean Corp Hgb Conc 31.4 g/dL (32-36); Mean Corpuscular Hgb 28.2 pg (27.0-32.0); Mean Corpuscular Volume 89.8 fL (80-94); Mean Platelet Vol. 10.4 fl (6.2-12.0); Monocyte# 1.03 X10^3/uL; Monocyte% 11.8 % (0-10); NRBC Flagged by Analyzer 0 % (0-5); Neutrophil # 6.14 X10^3/uL (2.7-7.7); Neutrophil % 70.1 % (47-70); Platelet Count 218 K/mm3 (150-450); RBC Distribution Width SD 42.6 fl (35.1-43.9); Red Blood Count 5.31 M/mm3 (4.6-6.2); White Blood Count 8.8 K/mm3 (4.4-11.0)
[2021-04-10 11:01] LABS: ALB/GLOB Ratio 1.1 RATIO (0.9-2.4); AST(SGOT) 21 U/L (15-37); Alanine Aminotransfer ALT/SGPT 24 U/L (16-61); Albumin, Serum 3.7 g/dL (3.2-5.0); Alkaline Phosphatase 89 U/L (45-117); Anion Gap 5 (5-15); BUN 48 mg/dL (7-18); BUN/Creat Ratio 16.7 RATIO (10-20); Calcium,Total 9.2 mg/dL (8.5-10.1); Chloride 104 mmol/L (98-107); Creatinine, Serum 2.88 mg/dL (0.70-1.30); EST Glomerular Filtration Rate 24 mL/min (>60); Est Glom Filt Rate - Afr Amer 29 mL/min (>60); Globulin 3.3 g/dL (2.2-4.2); Glucose 148 mg/dL (74-106); Magnesium 1.8 mg/dL (1.6-2.6); Phosphorus 3.4 mg/dL (2.5-4.9); Potassium 4.1 mmol/L (3.5-5.1); Sodium Level 138 mmol/L (136-145)
[2021-04-11 20:51] LABS: Cyclosporine 463 ng/mL (100-400)
== END 2021-04-10 18:00 | disposition home or self-care (01) ==
LOC: LAB 09:50
PROVIDERS: PCP Family Medicine
DX: Z48.298 Encounter for aftercare following other organ transplant (principal); D89.9 Disorder involving the immune mechanism, unspecified; D50.0 Iron deficiency anemia secondary to blood loss (chronic); D84.9 Immunodeficiency, unspecified; R79.9 Abnormal finding of blood chemistry, unspecified; R68.89 Other general symptoms and signs; Z94.0 Kidney transplant status; Z79.899 Other long term (current) drug therapy
CPT/HCPCS: 36415; 80051; 80053; 80158; 82565; 82947; 83735; 84100; 84520; 84550; 85025

== ENCOUNTER 2021-05-11 15:30 | Outpatient (RCR) | payer MEDICARE, SELFPAY ==
[2020-10-15 09:25] VITALS: BMI 28.1
--- NOTE | 2021-03-29 10:36 | HP.PTEVAL ---
Patient's Visit Information ROBERT DIEZ is a 60 year old M referred to Physical Therapy by MEGAN CASILLAS with a diagnosis of WENGERS DISEASE. Date of Evaluation: 03/29/21 Physical Therapist: Tani Morales, PT, Cert MDT, OCS - Visit Plan Frequency: 2x /Week Duration: 4 Weeks Plan: PT INTERVETIONS GRADED STRENGTHNENING, CONDTIONING,ENDURANCE PROGRAM AND FUNCTIONAL STRENGTHENING - Subjective This 60 y/o male presents to physical therapy with wengers disease. Patient has condition since 2019 developing weakness and fatigue. Initially ,found to have kidney failure . Patient had eventually kidney transplant . Patient seen DR thompson PT due to deconditioned. Patient denies pain. Patient denies parathesia/tingling. Patient is not getting any treatments. Patient was getting IV infusion. Patient has SOB . Patient condition affects housework tasks and ADLS'. Patient recently had FCE for disablity. Stairs with rails. Patient sleeping okay with bipap. Patient condition affects QOL. SOCIAL: . VOCATION: disablity - Objective POSTURE: mild posture. GAIT: reciprocal pattern. BALANCE: good-. STAIRS: alternating with rails. MMT: quads/hams 4-/5,hip flexion 4-/5,hip abd 3+/5 ,ankle 5/5. FLEXABLITY: hams mild tight. SpO2 : 90% after LONG WALK - Balance Scores Functional Gait Assessment Score: 24 % Disability: 20.0000 CATSIB Score (Max score 120 seconds): 110 - Goals Goal 1:: I with HEP. Goal Time Frame: 4-6 Weeks Goal 2:: Patient to increase strength quads/hams/hip 4/5 to improve functio n Goal Time Frame: 4-6 Weeks Goal 3:: Patient to improve function endurance with maintaining Sp02 > 94% Goal Time Frame: 4-6 Weeks Goal 4:: Patient to improve LFES SCORE BY 5 -10 points or> to improve function. Goal Time Frame: 4-6 Weeks - Rehabilitation Potential Physical Therapy Diagnosis: This patient has multiple complexity issue with wengers disease with SOB,weakness and deconditioned thus benifit from skilled PT Rehabilitation Potential: Good - Anticipated Interventions Patient/Client Instruction: Educate patient on: Condition, Plan of Care For the Purpose of:: To improve muscle performance and motor function, To improve ability to perform ADL's, To increase tolerance to activity/condition/position, To improve performance and independence with ADL's, To improve ability of physical actions for home/community/work/leisure, To improve gait and locomotor functions, To improve endurance, To improve balance, To improve safety with gait, To assume or resume ADL's Therapeutic Exercise to Include: Strength training, Endurance training, Balance training Comment: PRE'S BLE For the Purpose of:: To increase oxygenation perfusion, To improve ability to perform ADL's, To increase tolerance to activity/condition/position, To improve ability of physical actions for home/community/work/leisure, To increase flexibility/ROM, To improve endurance, To assume or resume ADL's, To improve ability to perform tasks related to life management Thank you for the opportunity to evaluate your patient. For Medicare and Medicare HMO plans, please review the plan of care and approve it. It will need to be FAXED BACK to us at [phone] for Medicare purposes. For Medicare only, by signing this I certify the plan of care. Please let me know if there are questions or concerns regarding this plan of care. Physician Signature: Date:
== END 2021-05-11 19:00 | disposition home or self-care (01) ==
LOC: PT 15:30
PROVIDERS: PCP Family Medicine
DX: A50.02 Early congenital syphilitic osteochondropathy (principal)
CPT/HCPCS: 97110; 97162

== ENCOUNTER 2021-05-22 08:33 | Outpatient (RCR) | payer MEDICARE, SELFPAY ==
[2020-10-15 09:25] VITALS: BMI 28.1
[2021-04-25 10:54] LABS: Absolute Lymphocyte Count 1.13 X10^3/uL (0.83-4.51); Absolute Neutrophil Count 7.3 X10^3/uL (2.0-7.7); Basophil# 0.06 X10^3/uL; Basophil% 0.6 % (0-1); Eosinophil# 0.12 X10^3/uL; Eosinophils% 1.2 % (0-5); Hematocrit 46.5 % (40-54); Hemoglobin 14.5 g/dL (13.0-16.5); Lymphocyte # 1.13 X10^3/ul (0.83-4.51); Lymphocyte % 11.4 % (19-41); Mean Corp Hgb Conc 31.2 g/dL (32-36); Mean Corpuscular Hgb 27.7 pg (27.0-32.0); Mean Corpuscular Volume 88.7 fL (80-94); Mean Platelet Vol. 10.2 fl (6.2-12.0); Monocyte# 1.08 X10^3/uL; Monocyte% 10.9 % (0-10); NRBC Flagged by Analyzer 0 % (0-5); Neutrophil # 7.33 X10^3/uL (2.7-7.7); Neutrophil % 73.7 % (47-70); Platelet Count 216 K/mm3 (150-450); RBC Distribution Width CV 13.1 % (11.6-14.6); RBC Distribution Width SD 42.7 fl (35.1-43.9); Red Blood Count 5.24 M/mm3 (4.6-6.2); White Blood Count 9.9 K/mm3 (4.4-11.0)
[2021-04-25 11:24] LABS: Anion Gap 10 (5-15); BUN 69 mg/dL (7-18); Chloride 107 mmol/L (98-107); EST Glomerular Filtration Rate 23 mL/min (>60); Est Glom Filt Rate - Afr Amer 28 mL/min (>60); Glucose 134 mg/dL (74-106); Potassium 3.3 mmol/L (3.5-5.1); Sodium Level 141 mmol/L (136-145)
[2021-04-27 10:09] LABS: Cyclosporine 700 ng/mL (100-400)
[2021-05-08 10:11] LABS: Absolute Lymphocyte Count 1.03 X10^3/uL (0.83-4.51); Absolute Neutrophil Count 7.8 X10^3/uL (2.0-7.7); Basophil# 0.07 X10^3/uL; Basophil% 0.7 % (0-1); Eosinophils% 1.9 % (0-5); Hematocrit 45.8 % (40-54); Hemoglobin 14.3 g/dL (13.0-16.5); Lymphocyte # 1.03 X10^3/ul (0.83-4.51); Lymphocyte % 9.8 % (19-41); Mean Corp Hgb Conc 31.2 g/dL (32-36); Mean Corpuscular Hgb 28.4 pg (27.0-32.0); Mean Corpuscular Volume 91.1 fL (80-94); Mean Platelet Vol. 10.4 fl (6.2-12.0); Monocyte# 1.21 X10^3/uL; Monocyte% 11.6 % (0-10); NRBC Flagged by Analyzer 0 % (0-5); Neutrophil # 7.75 X10^3/uL (2.7-7.7); Neutrophil % 74.1 % (47-70); Platelet Count 219 K/mm3 (150-450); RBC Distribution Width CV 13.2 % (11.6-14.6); RBC Distribution Width SD 43.5 fl (35.1-43.9); Red Blood Count 5.03 M/mm3 (4.6-6.2); White Blood Count 10.5 K/mm3 (4.4-11.0)
[2021-05-08 10:29] LABS: Protein, Urine (Random) 6.5 mg/dL (<11.9); Protein:Creat Ratio 255 mg/g CRE (0-200)
[2021-05-08 10:42] LABS: AST(SGOT) 19 U/L (15-37); Alanine Aminotransfer ALT/SGPT 22 U/L (16-61); Albumin, Serum 3.5 g/dL (3.2-5.0); Alkaline Phosphatase 82 U/L (45-117); Anion Gap 10 (5-15); BUN 47 mg/dL (7-18); Bilirubin, Direct 0.16 mg/dL (0.00-0.30); Calcium,Total 9.5 mg/dL (8.5-10.1); Chloride 103 mmol/L (98-107); Cholesterol 197 mg/dL (200); Creatinine, Serum 2.56 mg/dL (0.70-1.30); EST Glomerular Filtration Rate 28 mL/min (>60); Est Glom Filt Rate - Afr Amer 33 mL/min (>60); Glucose 148 mg/dL (74-106); High Density Lipoprotein 33 mg/dL; Iron 66 ug/dL (65-175); Iron Binding Capacity,Total 248 ug/dL (250-450); Magnesium 1.8 mg/dL (1.6-2.6); PTHIN 195.9 pg/mL (18.4-80.1); Potassium 3.9 mmol/L (3.5-5.1); Protein, Total 6.5 g/dL (6.4-8.2); Sodium Level 138 mmol/L (136-145); Triglycerides 431 mg/dL; Uric Acid 9.6 mg/dL (3.5-7.2)
[2021-05-10 13:16] LABS: Cyclosporine 321 ng/mL (100-400); Transferrin 195 mg/dL (177-329)
[2021-05-22 09:05] LABS: Absolute Lymphocyte Count 0.99 X10^3/uL (0.83-4.51); Absolute Neutrophil Count 6.5 X10^3/uL (2.0-7.7); Basophil# 0.06 X10^3/uL; Basophil% 0.7 % (0-1); Eosinophil# 0.13 X10^3/uL; Eosinophils% 1.5 % (0-5); Hematocrit 45.1 % (40-54); Hemoglobin 14.3 g/dL (13.0-16.5); Lymphocyte # 0.99 X10^3/ul (0.83-4.51); Lymphocyte % 11.6 % (19-41); Mean Corp Hgb Conc 31.7 g/dL (32-36); Mean Corpuscular Hgb 28.2 pg (27.0-32.0); Mean Platelet Vol. 9.8 fl (6.2-12.0); Monocyte# 0.63 X10^3/uL; Monocyte% 7.4 % (0-10); NRBC Flagged by Analyzer 0 % (0-5); Neutrophil # 6.53 X10^3/uL (2.7-7.7); Neutrophil % 76.6 % (47-70); Platelet Count 227 K/mm3 (150-450); RBC Distribution Width SD 42.2 fl (35.1-43.9); Red Blood Count 5.07 M/mm3 (4.6-6.2); White Blood Count 8.5 K/mm3 (4.4-11.0)
[2021-05-22 09:33] LABS: Anion Gap 10 (5-15); BUN 50 mg/dL (7-18); Chloride 101 mmol/L (98-107); Creatinine, Serum 2.64 mg/dL (0.70-1.30); EST Glomerular Filtration Rate 27 mL/min (>60); Est Glom Filt Rate - Afr Amer 32 mL/min (>60); Glucose 237 mg/dL (74-106); Potassium 3.5 mmol/L (3.5-5.1); Sodium Level 136 mmol/L (136-145)
[2021-05-23 20:13] LABS: HCV Quant. RNA PCR HCV Not Detected IU/mL (.)
[2021-05-24 10:08] LABS: Cyclosporine 504 ng/mL (100-400)
== END 2021-05-22 18:00 | disposition home or self-care (01) ==
LOC: LAB 08:33
PROVIDERS: PCP Family Medicine
DX: Z48.298 Encounter for aftercare following other organ transplant (principal); D84.9 Immunodeficiency, unspecified; D50.0 Iron deficiency anemia secondary to blood loss (chronic); R79.9 Abnormal finding of blood chemistry, unspecified; R68.89 Other general symptoms and signs; Z94.0 Kidney transplant status; Z79.899 Other long term (current) drug therapy
CPT/HCPCS: 36415; 80051; 80061; 80076; 80158; 82310; 82565; 82570; 82947; 83540; 83550; 83735; 83970; 84156; 84466; 84520; 84550; 85025; 87522

== ENCOUNTER 2021-06-23 07:27 | Outpatient (RCR) | payer MEDICARE, SELFPAY ==
[2020-10-15 09:25] VITALS: BMI 28.1
[2021-06-05 09:47] LABS: Absolute Lymphocyte Count 1.43 X10^3/uL (0.83-4.51); Absolute Neutrophil Count 6.7 X10^3/uL (2.0-7.7); Basophil# 0.08 X10^3/uL; Basophil% 0.8 % (0-1); Eosinophil# 0.13 X10^3/uL; Eosinophils% 1.3 % (0-5); Hematocrit 45.5 % (40-54); Hemoglobin 14.4 g/dL (13.0-16.5); Lymphocyte # 1.43 X10^3/ul (0.83-4.51); Lymphocyte % 14.6 % (19-41); Mean Corp Hgb Conc 31.6 g/dL (32-36); Mean Corpuscular Hgb 27.8 pg (27.0-32.0); Mean Corpuscular Volume 87.8 fL (80-94); Mean Platelet Vol. 10.3 fl (6.2-12.0); Monocyte# 1.15 X10^3/uL; Monocyte% 11.7 % (0-10); NRBC Flagged by Analyzer 0 % (0-5); Neutrophil % 68.2 % (47-70); Platelet Count 221 K/mm3 (150-450); RBC Distribution Width CV 12.6 % (11.6-14.6); Red Blood Count 5.18 M/mm3 (4.6-6.2); White Blood Count 9.8 K/mm3 (4.4-11.0)
[2021-06-05 10:18] LABS: ALB/GLOB Ratio 1.1 RATIO (0.9-2.4); AST(SGOT) 17 U/L (15-37); Alanine Aminotransfer ALT/SGPT 22 U/L (16-61); Albumin, Serum 3.6 g/dL (3.2-5.0); Alkaline Phosphatase 83 U/L (45-117); Anion Gap 10 (5-15); BUN 49 mg/dL (7-18); BUN/Creat Ratio 18.6 RATIO (10-20); Calcium,Total 9.2 mg/dL (8.5-10.1); Chloride 102 mmol/L (98-107); Creatinine, Serum 2.63 mg/dL (0.70-1.30); EST Glomerular Filtration Rate 27 mL/min (>60); Est Glom Filt Rate - Afr Amer 32 mL/min (>60); Globulin 3.2 g/dL (2.2-4.2); Glucose 138 mg/dL (74-106); Magnesium 1.5 mg/dL (1.6-2.6); Phosphorus 3.3 mg/dL (2.5-4.9); Potassium 3.3 mmol/L (3.5-5.1); Protein, Total 6.8 g/dL (6.4-8.2); Sodium Level 137 mmol/L (136-145)
[2021-06-09 13:33] LABS: Cyclosporine 330 ng/mL (100-400)
[2021-06-16 07:30] LABS: Absolute Lymphocyte Count 1.75 X10^3/uL (0.83-4.51); Absolute Neutrophil Count 8.6 X10^3/uL (2.0-7.7); Basophil% 0.8 % (0-1); Eosinophils% 2.4 % (0-5); Hematocrit 43.8 % (40-54); Hemoglobin 13.9 g/dL (13.0-16.5); Lymphocyte # 1.75 X10^3/ul (0.83-4.51); Lymphocyte % 14.1 % (19-41); Mean Corp Hgb Conc 31.7 g/dL (32-36); Mean Corpuscular Hgb 27.8 pg (27.0-32.0); Mean Corpuscular Volume 87.6 fL (80-94); Mean Platelet Vol. 10.3 fl (6.2-12.0); Monocyte# 1.42 X10^3/uL; Monocyte% 11.5 % (0-10); NRBC Flagged by Analyzer 0 % (0-5); Neutrophil # 8.61 X10^3/uL (2.7-7.7); Neutrophil % 69.5 % (47-70); Platelet Count 217 K/mm3 (150-450); RBC Distribution Width SD 41.9 fl (35.1-43.9); White Blood Count 12.4 K/mm3 (4.4-11.0)
[2021-06-16 08:04] LABS: AST(SGOT) 18 U/L (15-37); Alanine Aminotransfer ALT/SGPT 31 U/L (16-61); Alkaline Phosphatase 86 U/L (45-117); Anion Gap 13 (5-15); BUN 61 mg/dL (7-18); BUN/Creat Ratio 18.7 RATIO (10-20); Calcium,Total 8.3 mg/dL (8.5-10.1); Chloride 98 mmol/L (98-107); Creatinine, Serum 3.27 mg/dL (0.70-1.30); EST Glomerular Filtration Rate 21 mL/min (>60); Est Glom Filt Rate - Afr Amer 25 mL/min (>60); Glucose 158 mg/dL (74-106); Sodium Level 137 mmol/L (136-145)
[2021-06-19 16:19] LABS: Tacrolimus (FK506) 3.2 ng/mL (2.0-20.0)
[2021-06-20 08:17] LABS: Absolute Lymphocyte Count 1.93 X10^3/uL (0.83-4.51); Absolute Neutrophil Count 10.7 X10^3/uL (2.0-7.7); Basophil% 0.7 % (0-1); Eosinophil# 0.28 X10^3/uL; Eosinophils% 1.9 % (0-5); Hematocrit 45.8 % (40-54); Hemoglobin 14.6 g/dL (13.0-16.5); Lymphocyte # 1.93 X10^3/ul (0.83-4.51); Lymphocyte % 13.3 % (19-41); Mean Corp Hgb Conc 31.9 g/dL (32-36); Mean Corpuscular Hgb 27.9 pg (27.0-32.0); Mean Corpuscular Volume 87.6 fL (80-94); Mean Platelet Vol. 10.3 fl (6.2-12.0); Monocyte# 1.06 X10^3/uL; Monocyte% 7.3 % (0-10); NRBC Flagged by Analyzer 0 % (0-5); Neutrophil # 10.74 X10^3/uL (2.7-7.7); Neutrophil % 74.2 % (47-70); Platelet Count 263 K/mm3 (150-450); RBC Distribution Width CV 13.1 % (11.6-14.6); RBC Distribution Width SD 41.8 fl (35.1-43.9); Red Blood Count 5.23 M/mm3 (4.6-6.2); White Blood Count 14.5 K/mm3 (4.4-11.0)
[2021-06-20 08:36] LABS: Anion Gap 9 (5-15); BUN 60 mg/dL (7-18); BUN/Creat Ratio 20.7 RATIO (10-20); Calcium,Total 9.1 mg/dL (8.5-10.1); Chloride 103 mmol/L (98-107); EST Glomerular Filtration Rate 24 mL/min (>60); Est Glom Filt Rate - Afr Amer 29 mL/min (>60); Glucose 177 mg/dL (74-106); Potassium 3.4 mmol/L (3.5-5.1); Sodium Level 138 mmol/L (136-145)
[2021-06-22 16:18] LABS: Tacrolimus (FK506) 3.4 ng/mL (2.0-20.0)
[2021-06-23 07:56] LABS: Basophil% 0.6 % (0-1); Eosinophil# 0.25 X10^3/uL; Eosinophils% 1.5 % (0-5); Hematocrit 46.7 % (40-54); Lymphocyte % 13.4 % (19-41); Mean Corp Hgb Conc 32.1 g/dL (32-36); Mean Corpuscular Hgb 27.8 pg (27.0-32.0); Mean Corpuscular Volume 86.5 fL (80-94); Mean Platelet Vol. 10.2 fl (6.2-12.0); Monocyte# 1.42 X10^3/uL; Monocyte% 8.7 % (0-10); NRBC Flagged by Analyzer 0 % (0-5); Neutrophil # 11.98 X10^3/uL (2.7-7.7); Platelet Count 259 K/mm3 (150-450); RBC Distribution Width CV 13.2 % (11.6-14.6); RBC Distribution Width SD 41.2 fl (35.1-43.9); White Blood Count 16.4 K/mm3 (4.4-11.0)
[2021-06-23 08:17] LABS: Anion Gap 8 (5-15); BUN 64 mg/dL (7-18); Calcium,Total 9.3 mg/dL (8.5-10.1); Chloride 101 mmol/L (98-107); Creatinine, Serum 2.67 mg/dL (0.70-1.30); EST Glomerular Filtration Rate 26 mL/min (>60); Est Glom Filt Rate - Afr Amer 32 mL/min (>60); Glucose 168 mg/dL (74-106); Potassium 3.2 mmol/L (3.5-5.1); Sodium Level 134 mmol/L (136-145)
[2021-06-25 20:35] LABS: Tacrolimus (FK506) 4.9 ng/mL (2.0-20.0)
== END 2021-06-23 18:00 | disposition home or self-care (01) ==
LOC: LAB 07:27
PROVIDERS: PCP Family Medicine
DX: Z48.298 Encounter for aftercare following other organ transplant (principal); B34.8 Other viral infections of unspecified site; R79.9 Abnormal finding of blood chemistry, unspecified; Z94.0 Kidney transplant status; Z79.899 Other long term (current) drug therapy
CPT/HCPCS: 36415; 80048; 80053; 80158; 80197; 83735; 84075; 84100; 84450; 84460; 84550; 85025

== ENCOUNTER 2021-07-11 07:52 | Outpatient (RCR) | payer MEDICARE, SELFPAY ==
[2020-10-15 09:25] VITALS: BMI 28.1
[2021-06-27 08:30] LABS: Absolute Lymphocyte Count 1.83 X10^3/uL (0.83-4.51); Absolute Neutrophil Count 10.1 X10^3/uL (2.0-7.7); Basophil% 0.7 % (0-1); Eosinophil# 0.25 X10^3/uL; Eosinophils% 1.8 % (0-5); Hematocrit 45.9 % (40-54); Hemoglobin 14.3 g/dL (13.0-16.5); Lymphocyte # 1.83 X10^3/ul (0.83-4.51); Lymphocyte % 13.3 % (19-41); Mean Corp Hgb Conc 31.2 g/dL (32-36); Mean Corpuscular Hgb 27.4 pg (27.0-32.0); Mean Corpuscular Volume 87.9 fL (80-94); Mean Platelet Vol. 10.6 fl (6.2-12.0); Monocyte# 1.31 X10^3/uL; Monocyte% 9.5 % (0-10); NRBC Flagged by Analyzer 0 % (0-5); Neutrophil # 10.07 X10^3/uL (2.7-7.7); Platelet Count 250 K/mm3 (150-450); RBC Distribution Width CV 13.2 % (11.6-14.6); RBC Distribution Width SD 42.5 fl (35.1-43.9); Red Blood Count 5.22 M/mm3 (4.6-6.2); White Blood Count 13.8 K/mm3 (4.4-11.0)
[2021-06-27 08:59] LABS: Anion Gap 8 (5-15); BUN 77 mg/dL (7-18); BUN/Creat Ratio 26.6 RATIO (10-20); Calcium,Total 9.1 mg/dL (8.5-10.1); Chloride 101 mmol/L (98-107); EST Glomerular Filtration Rate 24 mL/min (>60); Est Glom Filt Rate - Afr Amer 29 mL/min (>60); Glucose 177 mg/dL (74-106); Potassium 3.2 mmol/L (3.5-5.1); Sodium Level 136 mmol/L (136-145)
[2021-06-29 16:41] LABS: Tacrolimus (FK506) 5.2 ng/mL (2.0-20.0)
[2021-06-30 09:01] LABS: Absolute Lymphocyte Count 1.03 X10^3/uL (0.83-4.51); Absolute Neutrophil Count 8.4 X10^3/uL (2.0-7.7); Basophil# 0.08 X10^3/uL; Basophil% 0.7 % (0-1); Eosinophil# 0.22 X10^3/uL; Hematocrit 44.3 % (40-54); Hemoglobin 13.9 g/dL (13.0-16.5); Lymphocyte # 1.03 X10^3/ul (0.83-4.51); Lymphocyte % 9.2 % (19-41); Mean Corp Hgb Conc 31.4 g/dL (32-36); Mean Corpuscular Hgb 27.6 pg (27.0-32.0); Mean Corpuscular Volume 87.9 fL (80-94); Mean Platelet Vol. 10.7 fl (6.2-12.0); Monocyte# 1.29 X10^3/uL; Monocyte% 11.5 % (0-10); NRBC Flagged by Analyzer 0 % (0-5); Neutrophil # 8.36 X10^3/uL (2.7-7.7); Neutrophil % 74.9 % (47-70); Platelet Count 213 K/mm3 (150-450); RBC Distribution Width CV 13.2 % (11.6-14.6); RBC Distribution Width SD 42.6 fl (35.1-43.9); Red Blood Count 5.04 M/mm3 (4.6-6.2); White Blood Count 11.2 K/mm3 (4.4-11.0)
[2021-06-30 09:14] LABS: Anion Gap 9 (5-15); BUN 65 mg/dL (7-18); BUN/Creat Ratio 24.6 RATIO (10-20); Calcium,Total 9.4 mg/dL (8.5-10.1); Chloride 102 mmol/L (98-107); Creatinine, Serum 2.64 mg/dL (0.70-1.30); EST Glomerular Filtration Rate 27 mL/min (>60); Est Glom Filt Rate - Afr Amer 32 mL/min (>60); Glucose 159 mg/dL (74-106); Potassium 3.4 mmol/L (3.5-5.1); Sodium Level 137 mmol/L (136-145)
[2021-07-03 07:35] LABS: Tacrolimus (FK506) 3.5 ng/mL (2.0-20.0)
[2021-07-04 07:54] LABS: Absolute Lymphocyte Count 1.59 X10^3/uL (0.83-4.51); Absolute Neutrophil Count 5.6 X10^3/uL (2.0-7.7); Basophil# 0.04 X10^3/uL; Basophil% 0.5 % (0-1); Eosinophil# 0.17 X10^3/uL; Hemoglobin 13.9 g/dL (13.0-16.5); Lymphocyte # 1.59 X10^3/ul (0.83-4.51); Lymphocyte % 18.9 % (19-41); Mean Corp Hgb Conc 31.6 g/dL (32-36); Mean Corpuscular Hgb 27.6 pg (27.0-32.0); Mean Corpuscular Volume 87.5 fL (80-94); Mean Platelet Vol. 10.7 fl (6.2-12.0); Monocyte# 0.83 X10^3/uL; Monocyte% 9.9 % (0-10); NRBC Flagged by Analyzer 0 % (0-5); Neutrophil # 5.62 X10^3/uL (2.7-7.7); Neutrophil % 66.8 % (47-70); Platelet Count 170 K/mm3 (150-450); RBC Distribution Width CV 13.5 % (11.6-14.6); RBC Distribution Width SD 43.5 fl (35.1-43.9); Red Blood Count 5.03 M/mm3 (4.6-6.2); White Blood Count 8.4 K/mm3 (4.4-11.0)
[2021-07-04 08:20] LABS: Anion Gap 9 (5-15); BUN 59 mg/dL (7-18); BUN/Creat Ratio 21.8 RATIO (10-20); Calcium,Total 8.8 mg/dL (8.5-10.1); Chloride 104 mmol/L (98-107); Creatinine, Serum 2.71 mg/dL (0.70-1.30); EST Glomerular Filtration Rate 26 mL/min (>60); Est Glom Filt Rate - Afr Amer 31 mL/min (>60); Glucose 160 mg/dL (74-106); Potassium 3.5 mmol/L (3.5-5.1); Sodium Level 137 mmol/L (136-145)
[2021-07-06 15:49] LABS: Tacrolimus (FK506) 5.8 ng/mL (2.0-20.0)
[2021-07-11 08:29] LABS: Absolute Lymphocyte Count 1.55 X10^3/uL (0.83-4.51); Absolute Neutrophil Count 6.2 X10^3/uL (2.0-7.7); Basophil# 0.03 X10^3/uL; Basophil% 0.3 % (0-1); Eosinophil# 0.05 X10^3/uL; Eosinophils% 0.6 % (0-5); Hematocrit 45.9 % (40-54); Hemoglobin 14.7 g/dL (13.0-16.5); Lymphocyte # 1.55 X10^3/ul (0.83-4.51); Lymphocyte % 17.4 % (19-41); Mean Corpuscular Hgb 27.9 pg (27.0-32.0); Mean Corpuscular Volume 87.3 fL (80-94); Mean Platelet Vol. 10.6 fl (6.2-12.0); Monocyte# 0.85 X10^3/uL; Monocyte% 9.5 % (0-10); NRBC Flagged by Analyzer 0 % (0-5); Neutrophil % 69.5 % (47-70); Platelet Count 144 K/mm3 (150-450); Red Blood Count 5.26 M/mm3 (4.6-6.2); White Blood Count 8.9 K/mm3 (4.4-11.0)
[2021-07-11 08:54] LABS: Anion Gap 10 (5-15); BUN 62 mg/dL (7-18); BUN/Creat Ratio 21.8 RATIO (10-20); Calcium,Total 8.4 mg/dL (8.5-10.1); Chloride 100 mmol/L (98-107); Creatinine, Serum 2.85 mg/dL (0.70-1.30); EST Glomerular Filtration Rate 24 mL/min (>60); Est Glom Filt Rate - Afr Amer 29 mL/min (>60); Glucose 191 mg/dL (74-106); Potassium 3.9 mmol/L (3.5-5.1); Sodium Level 133 mmol/L (136-145)
[2021-07-13 16:22] LABS: Tacrolimus (FK506) 7.7 ng/mL (2.0-20.0)
== END 2021-07-11 18:00 | disposition home or self-care (01) ==
LOC: LAB 07:52
PROVIDERS: PCP Family Medicine
DX: Z48.298 Encounter for aftercare following other organ transplant (principal); B34.8 Other viral infections of unspecified site; R79.9 Abnormal finding of blood chemistry, unspecified; Z94.0 Kidney transplant status; Z79.899 Other long term (current) drug therapy
CPT/HCPCS: 36415; 80048; 80197; 85025

== ENCOUNTER 2021-08-22 07:41 | Outpatient (RCR) | payer MEDICARE, SELFPAY ==
[2021-07-25 23:24] VITALS: BMI 28.1
[2021-08-22 08:13] LABS: Absolute Lymphocyte Count 1.13 X10^3/uL (0.83-4.51); Absolute Neutrophil Count 8.6 X10^3/uL (2.0-7.7); Basophil# 0.07 X10^3/uL; Basophil% 0.6 % (0-1); Eosinophils% 1.8 % (0-5); Hematocrit 43.7 % (40-54); Lymphocyte # 1.13 X10^3/ul (0.83-4.51); Lymphocyte % 9.9 % (19-41); Mean Corpuscular Hgb 28.1 pg (27.0-32.0); Mean Corpuscular Volume 87.8 fL (80-94); Mean Platelet Vol. 10.2 fl (6.2-12.0); Monocyte# 1.08 X10^3/uL; Monocyte% 9.5 % (0-10); NRBC Flagged by Analyzer 0 % (0-5); Neutrophil # 8.59 X10^3/uL (2.7-7.7); Neutrophil % 75.6 % (47-70); Platelet Count 208 K/mm3 (150-450); RBC Distribution Width CV 15.3 % (11.6-14.6); RBC Distribution Width SD 49.2 fl (35.1-43.9); Red Blood Count 4.98 M/mm3 (4.6-6.2); White Blood Count 11.4 K/mm3 (4.4-11.0)
[2021-08-22 08:23] LABS: Protein, Urine (Random) 10.9 mg/dL (<11.9); Protein:Creat Ratio 189 mg/g CRE (0-200)
[2021-08-22 08:42] LABS: Hemoglobin A1c 9.4 % (3.8-5.6)
[2021-08-22 08:44] LABS: ALB/GLOB Ratio 0.9 RATIO (0.9-2.4); AST(SGOT) 11 U/L (15-37); Alanine Aminotransfer ALT/SGPT 18 U/L (16-61); Albumin, Serum 3.1 g/dL (3.2-5.0); Alkaline Phosphatase 89 U/L (45-117); Anion Gap 14 (5-15); BUN 54 mg/dL (7-18); BUN/Creat Ratio 24.8 RATIO (10-20); Calcium,Total 8.7 mg/dL (8.5-10.1); Chloride 105 mmol/L (98-107); Cholesterol 161 mg/dL (200); Creatinine, Serum 2.18 mg/dL (0.70-1.30); EST Glomerular Filtration Rate 33 mL/min (>60); Est Glom Filt Rate - Afr Amer 40 mL/min (>60); Ferritin 641 ng/mL (26-388); Globulin 3.3 g/dL (2.2-4.2); Glucose 224 mg/dL (74-106); High Density Lipoprotein 33 mg/dL; Iron 82 ug/dL (65-175); Iron Binding Capacity,Total 216 ug/dL (250-450); Magnesium 1.4 mg/dL (1.6-2.6); Phosphorus 3.6 mg/dL (2.5-4.9); Potassium 3.4 mmol/L (3.5-5.1); Protein, Total 6.4 g/dL (6.4-8.2); Sodium Level 141 mmol/L (136-145); Triglycerides 270 mg/dL; Uric Acid 11.4 mg/dL (3.5-7.2); Very Low Density Lipoprotein 54 mg/dL (5-40)
[2021-08-22 08:52] LABS: T4 Free Direct 1.07 ng/dL (0.76-1.46); Thyroid Stim Hormone (TSH) 0.96 uIU/mL (0.358-3.74)
[2021-08-25 10:18] LABS: Tacrolimus (FK506) 5.1 ng/mL (2.0-20.0); Transferrin 177 mg/dL (177-329)
== END 2021-08-22 18:00 | disposition home or self-care (01) ==
LOC: LAB 07:41
PROVIDERS: PCP Family Medicine
DX: Z48.298 Encounter for aftercare following other organ transplant (principal); B34.8 Other viral infections of unspecified site; D84.9 Immunodeficiency, unspecified; D50.0 Iron deficiency anemia secondary to blood loss (chronic); E11.9 Type 2 diabetes mellitus without complications; E03.9 Hypothyroidism, unspecified; R79.9 Abnormal finding of blood chemistry, unspecified; R68.89 Other general symptoms and signs; Z12.5 Encounter for screening for malignant neoplasm of prostate; Z94.0 Kidney transplant status; Z79.899 Other long term (current) drug therapy
CPT/HCPCS: 36415; 80053; 80061; 80197; 82570; 82728; 83036; 83540; 83550; 83735; 84100; 84153; 84156; 84439; 84443; 84466; 84550; 85025; G0103

== ENCOUNTER 2021-10-10 07:35 | Outpatient (RCR) | payer MEDICARE, SELFPAY ==
[2021-08-24 20:45] VITALS: BMI 28.1
== END 2021-10-24 18:00 | disposition home or self-care (01) ==
LOC: LAB 07:35
PROVIDERS: PCP Family Medicine
DX: D84.9 Immunodeficiency, unspecified (principal); Z48.298 Encounter for aftercare following other organ transplant; Z94.0 Kidney transplant status; Z79.899 Other long term (current) drug therapy; R79.9 Abnormal finding of blood chemistry, unspecified; R68.89 Other general symptoms and signs
CPT/HCPCS: 36415

== ENCOUNTER 2021-11-10 07:32 | Outpatient (RCR) | payer MEDICARE, SELFPAY ==
[2021-10-25 03:25] VITALS: BMI 28.1
[2021-11-10 08:12] LABS: Absolute Lymphocyte Count 0.82 X10^3/uL (0.83-4.51); Absolute Neutrophil Count 7.5 X10^3/uL (2.0-7.7); Basophil# 0.08 X10^3/uL; Basophil% 0.8 % (0-1); Eosinophil# 0.27 X10^3/uL; Eosinophils% 2.7 % (0-5); Hematocrit 48.3 % (40-54); Hemoglobin 15.4 g/dL (13.0-16.5); Lymphocyte # 0.82 X10^3/ul (0.83-4.51); Lymphocyte % 8.1 % (19-41); Mean Corp Hgb Conc 31.9 g/dL (32-36); Mean Corpuscular Hgb 28.5 pg (27.0-32.0); Mean Corpuscular Volume 89.3 fL (80-94); Mean Platelet Vol. 10.4 fl (6.2-12.0); Monocyte# 1.28 X10^3/uL; Monocyte% 12.7 % (0-10); NRBC Flagged by Analyzer 0 % (0-5); Neutrophil # 7.53 X10^3/uL (2.7-7.7); Neutrophil % 74.4 % (47-70); Platelet Count 190 K/mm3 (150-450); RBC Distribution Width CV 14.3 % (11.6-14.6); RBC Distribution Width SD 47.1 fl (35.1-43.9); Red Blood Count 5.41 M/mm3 (4.6-6.2); White Blood Count 10.1 K/mm3 (4.4-11.0)
[2021-11-10 08:33] LABS: Anion Gap 9 (5-15); BUN 47 mg/dL (7-18); Chloride 107 mmol/L (98-107); Creatinine, Serum 2.33 mg/dL (0.70-1.30); EST Glomerular Filtration Rate 31 mL/min (>60); Est Glom Filt Rate - Afr Amer 37 mL/min (>60); Glucose 231 mg/dL (74-106); Potassium 3.6 mmol/L (3.5-5.1); Sodium Level 141 mmol/L (136-145)
[2021-11-13 20:07] LABS: Tacrolimus (FK506) 7.1 ng/mL (2.0-20.0)
== END 2021-11-25 18:00 | disposition home or self-care (01) ==
LOC: LAB 07:32
PROVIDERS: PCP Family Medicine
DX: D84.9 Immunodeficiency, unspecified (principal); Z48.298 Encounter for aftercare following other organ transplant; Z94.0 Kidney transplant status; Z79.899 Other long term (current) drug therapy; R79.9 Abnormal finding of blood chemistry, unspecified; R68.89 Other general symptoms and signs; D50.0 Iron deficiency anemia secondary to blood loss (chronic)
CPT/HCPCS: 36415; 80051; 80197; 82565; 82947; 84520; 85025

== ENCOUNTER 2022-01-29 07:37 | Outpatient (RCR) | payer MEDICARE, SELFPAY ==
[2021-11-26 04:22] VITALS: BMI 28.1
[2022-01-29 08:09] LABS: Absolute Lymphocyte Count 1.23 X10^3/uL (0.83-4.51); Absolute Neutrophil Count 7.8 X10^3/uL (2.0-7.7); Basophil# 0.07 X10^3/uL; Basophil% 0.7 % (0-1); Eosinophil# 0.21 X10^3/uL; Hematocrit 48.3 % (40-54); Hemoglobin 15.5 g/dL (13.0-16.5); Lymphocyte # 1.23 X10^3/ul (0.83-4.51); Lymphocyte % 11.9 % (19-41); Mean Corp Hgb Conc 32.1 g/dL (32-36); Mean Corpuscular Hgb 28.2 pg (27.0-32.0); Mean Platelet Vol. 10.2 fl (6.2-12.0); Monocyte% 7.8 % (0-10); NRBC Flagged by Analyzer 0 % (0-5); Neutrophil # 7.81 X10^3/uL (2.7-7.7); Neutrophil % 75.9 % (47-70); Platelet Count 204 K/mm3 (150-450); RBC Distribution Width CV 13.7 % (11.6-14.6); RBC Distribution Width SD 43.9 fl (35.1-43.9); Red Blood Count 5.49 M/mm3 (4.6-6.2); White Blood Count 10.3 K/mm3 (4.4-11.0)
[2022-01-29 08:24] LABS: Protein, Urine (Random) 9.5 mg/dL (<11.9); Protein:Creat Ratio 217 mg/g CRE (0-200)
[2022-01-29 08:57] LABS: ALB/GLOB Ratio 1.1 RATIO (0.9-2.4); AST(SGOT) 12 U/L (15-37); Alanine Aminotransfer ALT/SGPT 24 U/L (16-61); Albumin, Serum 3.3 g/dL (3.2-5.0); Alkaline Phosphatase 94 U/L (45-117); Anion Gap 7 (5-15); BUN 46 mg/dL (7-18); Calcium,Total 8.8 mg/dL (8.5-10.1); Chloride 111 mmol/L (98-107); Cholesterol 139 mg/dL (200); EST Glomerular Filtration Rate 31 mL/min (>60); Est Glom Filt Rate - Afr Amer 38 mL/min (>60); Ferritin 525 ng/mL (26-388); Glucose 237 mg/dL (74-106); High Density Lipoprotein 31 mg/dL; Iron 60 ug/dL (65-175); Iron Binding Capacity,Total 228 ug/dL (250-450); Magnesium 1.7 mg/dL (1.6-2.6); Phosphorus 3.2 mg/dL (2.5-4.9); Potassium 3.7 mmol/L (3.5-5.1); Protein, Total 6.3 g/dL (6.4-8.2); Sodium Level 141 mmol/L (136-145); Triglycerides 253 mg/dL; Uric Acid 10.5 mg/dL (3.5-7.2); Very Low Density Lipoprotein 51 mg/dL (5-40)
[2022-01-31 18:30] LABS: Transferrin 172 mg/dL (177-329)
== END 2022-02-22 18:00 | disposition home or self-care (01) ==
LOC: LAB 07:37
PROVIDERS: PCP Family Medicine; Visit Provider Internal Medicine Nephrology
DX: D84.9 Immunodeficiency, unspecified (principal); Z48.298 Encounter for aftercare following other organ transplant; Z94.0 Kidney transplant status; Z79.899 Other long term (current) drug therapy; R79.9 Abnormal finding of blood chemistry, unspecified; R68.89 Other general symptoms and signs; D50.0 Iron deficiency anemia secondary to blood loss (chronic)
CPT/HCPCS: 80053; 80061; 80197; 82570; 82728; 83540; 83550; 83735; 84100; 84156; 84466; 84550; 85025

== ENCOUNTER → 2022-02-16 10:31 | Outpatient (CLI) | payer MEDICARE, SELFPAY | PROVIDERS: PCP Family Medicine | DX: Z09 Encounter for follow-up examination after completed treatment for conditions other than malignant neoplasm (principal); D72.9 Disorder of white blood cells, unspecified; R79.9 Abnormal finding of blood chemistry, unspecified; Z94.0 Kidney transplant status | CPT/HCPCS: 36415 ==

== ENCOUNTER → 2022-04-04 | Outpatient (CLI) | payer MEDICARE, SELFPAY ==
--- NOTE | 2022-04-04 16:20 | CT_ITS ---
STUDY: CT ABDOMEN AND PELVIS WITHOUT CONTRAST REASON FOR EXAM: Male, 61 years old. SUSPECTED HERNIA RLQ RADIATION DOSAGE (If Supplied By Facility): CTDIvol = ( 16.20 ) mGy, DLP = ( 890.18 ) mGycm TECHNIQUE: Transaxial images were obtained from the dome of the diaphragm to the symphysis pubis without oral contrast, and without intravenous contrast. Sagittal and coronal images were reconstructed. Individualized dose optimization techniques were used for this CT. COMPARISON: None. FINDINGS: The visualized lung bases are unremarkable. There are coronary artery atherosclerotic calcifications. Normal liver. There are multiple gallstones. Normal spleen. Normal pancreas. Normal bilateral adrenal glands. There is severe cortical atrophy of the right kidney, consistent with chronic medical renal disease. There is severe cortical atrophy of the left kidney, consistent with chronic medical renal disease. Right lower quadrant renal transplant present. Normal visualized stomach. No dilated loops of small bowel. No colon wall thickening. There is non-visualization of the appendix. There is diffuse atherosclerotic calcification of the abdominal aorta, without a demonstrated aneurysm. Normal inferior vena cava. Normal retroperitoneum. Nondistended urinary bladder. Eventration of the right lower anterior/lateral abdominal wall between the rectus muscle and oblique muscles with small amount of protruding fat. There are loops of small bowel adjacent to the defect but do not extend into the hernia sac. There are diffuse degenerative changes of the visualized lumbar spine. Grade 1 anterolisthesis L5-S1 due to bilateral L5 spondylolysis. CT/Abdomen/Pelvis without Cont IMPRESSION: 1. Right lower quadrant anterolateral/Spigelian fat-containing hernia, small Electronically Signed: Ilya Vazquez MD ([place]) at 22:49 EDT Reading Location ID and State: [facility] / [place] , Service support ,
== END | disposition home or self-care (01) ==
LOC: CT 16:15
PROVIDERS: PCP Family Medicine
DX: R79.9 Abnormal finding of blood chemistry, unspecified (principal); D84.9 Immunodeficiency, unspecified; Z94.0 Kidney transplant status; Z79.899 Other long term (current) drug therapy; Z48.298 Encounter for aftercare following other organ transplant; R68.89 Other general symptoms and signs
CPT/HCPCS: 74176

== ENCOUNTER 2022-04-07 15:36 | Inpatient (IN) | payer MEDICARE, SELFPAY ==
[2022-04-07] VITALS (8 sets, daily range): BP systolic 129–142; BP diastolic 71–78; PULSE 66–86; RESP 16–18; TEMP 36.3–37.1; O2SAT 95–97; BMI 30.1; BMI 29.5
--- NOTE | 2022-04-07 16:01 | EDS_ITS ---
HPI History of Present Illness Chief Complaint: Wound Check Informant: patient Onset/Context/Timing Onset: Weeks Current Severity: Moderate Maximum Severity: Moderate Narrative Narrative: Patient presents secondary to left great toe infection. About 10 days ago he used his fingernail trimmers to open a callus that had formed on his left great toe. [facility] Medical History (Updated 04/07/22 @ 17:[address] Adwoa Corado MD) Acute respiratory failure Acute respiratory failure with hypoxia Anemia Chronic systolic (congestive) heart failure Cough with hemoptysis Diffuse pulmonary alveolar hemorrhage Dilated cardiomyopathy End stage renal disease on dialysis Healthcare-associated pneumonia Hemoptysis Hyperlipidemia Hypertension Hypothyroidism Left ventricular hypertrophy Lymphadenopathy DAVID (obstructive sleep apnea) Problem with dialysis access Sinus bradycardia Type II diabetes mellitus Gee's granulomatosis with renal involvement Home Medications atorvastatin 10 mg PO DAILY 01/19/19 [History Last Taken 02/04/19] citalopram 40 mg PO DAILY 01/19/19 [History Last Taken 02/04/19] carvedilol 6.25 mg tablet 12.5 mg PO DAILY 01/27/19 [History Last Taken 05/29/19] insulin lispro See Protocol SQ PRN PRN 05/29/19 [History Last Taken Unknown] cyclosporine modified 25 mg PO BID 10/15/20 [History Last Taken Unknown] levothyroxine 175 mcg PO DAILY 10/15/20 [History Last Taken Unknown] pantoprazole 40 mg PO DAILY 10/15/20 [History Last Taken Unknown] Trulicity 0.75 mg/0.5 mL subcutaneous pen injector 0.75 mg SUBCUT QWEEK #6 ml NS 03/01/22 [Rx Last Taken Unknown] flash glucose scanning reader #1 ea 03/08/22 [Rx Last Taken Unknown] flash glucose sensor #2 ea 03/08/22 [Rx Last Taken Unknown] blood sugar diagnostic #120 ea 03/12/22 [Rx Last Taken Unknown] prednisone 10 mg tablet 7.5 mg PO DAILY tab 04/05/22 [History Last Taken Unknown] Envarsus XR 0.75 mg PO/SL DAILY 04/07/22 [History Last Taken Unknown] calcitriol 0.25 mcg PO DAILY 04/07/22 [History Last Taken Unknown] hydralazine 25 mg PO BID 04/07/22 [History Last Taken Unknown] mycophenolate sodium 360 mg PO BID 04/07/22 [History Last Taken Unknown] Allergy/AdvReac Type Severity Reaction Status Date / Time losartan Allergy Severe Hives Verified 04/07/22 15:39 epoetin beta [From Mircera] AdvReac back pain Verified 04/07/22 15:39 Family History Father CAD (coronary artery disease) Myocardial infarction, Onset Age: 56 Stented coronary artery Surgical History H/O hernia repair Presence of surgically created arteriovenous shunt for hemodialysis S/P arteriovenous (AV) fistula repair S/P nasal surgery Social History Smoking Status: Former smoker alcohol intake: never ROS ROS ED Constitutional Constitutional ED: Reports chills; Denies fever(s) Eyes Eyes: Denies blurry vision ENT ENT ED: Denies rhinorrhea or sore throat Cardiovascular Cardiovascular: Denies chest pain or palpitations Respiratory/Chest Respiratory/Chest: Denies dyspnea Gastrointestinal Gastrointestinal: Denies abdominal pain, nausea or vomiting Musculoskeletal Musculoskeletal: Denies back pain Integumentary Denies rash Neurologic Neurologic: Denies headache(s) Allergic/Immunologic Allergic/Immunologic ED: Denies urticaria EXAM Physical Exam Const Vital Signs: 04/07/22 15:37 04/07/22 15:38 04/07/22 16:38 Temperature 98.7 F 98.7 F 97.4 F L Temperature Source Temporal Temporal Temporal Pulse Rate 86 86 72 Respiratory Rate 18 18 16 Blood Pressure 135/78 H 135/78 H 129/74 H Blood Pressure Mean 97 97 92 Pulse Ox 96 96 95 Oxygen Delivery Method Room Air Room Air Room Air 04/07/22 17:00 Temperature 97.4 F L Temperature Source Temporal Pulse Rate 69 Respiratory Rate 16 Blood Pressure 129/74 H Blood Pressure Mean 92 Pulse Ox 96 Oxygen Delivery Method Room Air Positive well nourished and well developed General Appearance ED: well developed HEENT Reports moist mucous membranes Eyes PERRL and EOMs intact bilaterally Neck supple Chest Wall inspection of chest normal and palpation of chest normal Resp normal respiratory effort and clear to auscultation bilaterally Cardio regular rate and regular rhythm GI normal to inspection, nondistended, normoactive bowel sounds and non-tender Palpation: soft Extremity Extremity Narrative: Left great toe with ulcerated lesion on the undersurface. Toe is erythematous and edematous. No lymphangitic streak noted at this time. Neuro oriented x3 Sensorium / Orientation: alert Psych mental status grossly normal MDM MDM MDM Narrative Medical decision making narrative: Lab work and left foot x-rays obtained. Patient given Zosyn and vancomycin for diabetic foot infection. Lab Data Attestation: I reviewed the patient's lab results. Labs: Laboratory Results - last 24 hr 04/07/22 04/07/22 04/07/22 16:00 16:00 16:00 WBC 14.9 H RBC 5.33 Hgb 14.7 Hct 46.0 MCV 86.3 MCH 27.6 MCHC 32.0 RDW Std Deviation 42.3 RDW Coeff of Carmina 13.5 Plt Count 255 MPV 9.8 Immature Gran % (Auto) 0.600 Neut % (Auto) 83.5 H Lymph % (Auto) 6.4 L Cameron % (Auto) 8.8 Eos % (Auto) 0.4 Baso % (Auto) 0.3 Absolute Neuts (auto) 12.4 H Absolute Lymphs (auto) 0.95 Nucleated RBC % 0 Sodium 139 Potassium 3.8 Chloride 106 Carbon Dioxide 23.0 Anion Gap 10 BUN 37 H Creatinine 2.08 H Estim Creat Clear Calc 39.48 Est GFR (MDRD) Af Amer 42 L Est GFR (MDRD) Non-Af 35 L BUN/Creatinine Ratio 17.8 Glucose 139 H Lactic Acid 0.9 Calcium 9.0 Radiography Diagnostic Testing: Clinical Impression(s) from Imaging Studies Foot X-Ray 04/07/22 16:22 IMPRESSION: No demonstrated fracture or malalignment. First digit soft tissue swelling. No osseous erosion. Electronically Signed: Ilya Vazquez MD ([place]) at 16:56 EDT , Treatment and Re-Evaluation Narrative: Lab work reveals an elevated white count at 14.9 with left shift. Chemistry studies largely unremarkable. Glucose 139. Lactic acid is normal. Left foot x-ray per my interpretation reveals no acute bony abnormality. Radiologist interpretation is reviewed and agrees. Patient is on Zosyn and vancomycin. I do feel that he will require admission for IV antibiotics given the degree of erythema and swelling. Hospitalist will be contacted for admission. Discharge Plan Dx/Rx/DC Orders Clinical Impression: Diabetic foot infection Disposition Disposition: Acute Care Hospital [facility] Discharge Date/Time: 04/07/22 18:24
[2022-04-07 16:21] LABS: Absolute Lymphocyte Count 0.95 X10^3/uL (0.83-4.51); Absolute Neutrophil Count 12.4 X10^3/uL (2.0-7.7); Basophil# 0.05 X10^3/uL; Basophil% 0.3 % (0-1); Eosinophil# 0.06 X10^3/uL; Eosinophils% 0.4 % (0-5); Hemoglobin 14.7 g/dL (13.0-16.5); Lymphocyte # 0.95 X10^3/ul (0.83-4.51); Lymphocyte % 6.4 % (19-41); Mean Corpuscular Hgb 27.6 pg (27.0-32.0); Mean Corpuscular Volume 86.3 fL (80-94); Mean Platelet Vol. 9.8 fl (6.2-12.0); Monocyte% 8.8 % (0-10); NRBC Flagged by Analyzer 0 % (0-5); Neutrophil % 83.5 % (47-70); Platelet Count 255 K/mm3 (150-450); RBC Distribution Width CV 13.5 % (11.6-14.6); RBC Distribution Width SD 42.3 fl (35.1-43.9); Red Blood Count 5.33 M/mm3 (4.6-6.2); White Blood Count 14.9 K/mm3 (4.4-11.0)
[2022-04-07] MEDS: 0.9% Normal Saline 1,000 ML 150 ML IV (16:22)
--- NOTE | 2022-04-07 16:22 | RAD_ITS ---
STUDY: X-RAY - LEFT FOOT CLINICAL: Male, 61 years old. WOUND TO LEFT FOOT, BIG TOE. INCREASED REDNESS AND PAIN. TECHNIQUE: 3 view(s) of the foot. COMPARISON: None. FINDINGS: Normal talus, calcaneus, and tarsal bones. Normal visualized subtalar, talonavicular, calcaneocuboid, tarsal and tarsometatarsal articulations. Normal metatarsi. There is degenerative arthrosis of the metatarsophalangeal joint of the hallux . Normal tibial and fibular sesamoid bones. Normal interphalangeal joint of the great toe. Normal phalanges of the great toe. Normal second through fifth metatarsophalangeal joints. Normal interphalangeal joints and phalanges of the lesser toes. Atherosclerosis. There is soft tissue swelling of the first digit. RAD/Foot min 3 Views IMPRESSION: No demonstrated fracture or malalignment. First digit soft tissue swelling. No osseous erosion. Electronically Signed: Ilya Vazquez MD ([place]) at 16:56 EDT ,
[2022-04-07 16:25] LABS: Anion Gap 10 (5-15); BUN 37 mg/dL (7-18); BUN/Creat Ratio 17.8 RATIO (10-20); Chloride 106 mmol/L (98-107); Creatinine, Serum 2.08 mg/dL (0.70-1.30); EST Glomerular Filtration Rate 35 mL/min (>60); Est Glom Filt Rate - Afr Amer 42 mL/min (>60); Estimated Creatinine Clearance 39.48 ml/min; Glucose 139 mg/dL (74-106); Potassium 3.8 mmol/L (3.5-5.1); Sodium Level 139 mmol/L (136-145)
[2022-04-07 16:47] LABS: Lactic Acid 0.9 mmol/L (0.4-1.9)
--- NOTE | 2022-04-07 17:42 | PCM.HP.STD ---
HPI - General General Date of Admission: 04/07/22 HPI Narrative ROBERT DIEZ, is a 61 M who presents with a worsening infection of his left toe, that started 10 days ago when he used nail clippers to take a callus off. The area became red and the patient went to the primary care physician who tried to liz wound for culture but could not express any pus and the patient was put on amoxicillin. This was yesterday. Over the last day the patient has been felt more tired with chills and no documented fever. He was feeling slow and did have 1 episode of nonbloody emesis, and together he and his just came into the ED for further evaluation. In the ED the patient did have a slight increase of leukocytosis 14.9, and the patient was given vancomycin and Zosyn due to concerns of immunocompromise from diabetes and previous kidney transplant. Patient had a transplant 2 years ago and also has a history of Gee's granulomatosis, and is on mycophenolate and Envarsus and prednisone for kidney transplant. [facility] Medical History (Updated 04/07/22 @ 17:[address] Adwoa Corado MD) Acute respiratory failure Acute respiratory failure with hypoxia Anemia Chronic systolic (congestive) heart failure Cough with hemoptysis Diffuse pulmonary alveolar hemorrhage Dilated cardiomyopathy End stage renal disease on dialysis Healthcare-associated pneumonia Hemoptysis Hyperlipidemia Hypertension Hypothyroidism Left ventricular hypertrophy Lymphadenopathy DAVID (obstructive sleep apnea) Problem with dialysis access Sinus bradycardia Type II diabetes mellitus Gee's granulomatosis with renal involvement Home Medications atorvastatin 10 mg PO DAILY 01/19/19 [History Last Taken 02/04/19] citalopram 40 mg PO DAILY 01/19/19 [History Last Taken 02/04/19] carvedilol 6.25 mg tablet 12.5 mg PO DAILY 01/27/19 [History Last Taken 05/29/19] insulin lispro See Protocol SQ PRN PRN 05/29/19 [History Last Taken Unknown] cyclosporine modified 25 mg PO BID 10/15/20 [History Last Taken Unknown] levothyroxine 175 mcg PO DAILY 10/15/20 [History Last Taken Unknown] pantoprazole 40 mg PO DAILY 10/15/20 [History Last Taken Unknown] Trulicity 0.75 mg/0.5 mL subcutaneous pen injector 0.75 mg SUBCUT QWEEK #6 ml NS 03/01/22 [Rx Last Taken Unknown] flash glucose scanning reader #1 ea 03/08/22 [Rx Last Taken Unknown] flash glucose sensor #2 ea 03/08/22 [Rx Last Taken Unknown] blood sugar diagnostic #120 ea 03/12/22 [Rx Last Taken Unknown] prednisone 10 mg tablet 7.5 mg PO DAILY tab 04/05/22 [History Last Taken Unknown] Envarsus XR 0.75 mg PO/SL DAILY 04/07/22 [History Last Taken Unknown] calcitriol 0.25 mcg PO DAILY 04/07/22 [History Last Taken Unknown] hydralazine 25 mg PO BID 04/07/22 [History Last Taken Unknown] mycophenolate sodium 360 mg PO BID 04/07/22 [History Last Taken Unknown] Allergy/AdvReac Type Severity Reaction Status Date / Time losartan Allergy Severe Hives Verified 04/07/22 15:39 epoetin beta [From Mircera] AdvReac back pain Verified 04/07/22 15:39 Family History Father CAD (coronary artery disease) Myocardial infarction, Onset Age: 56 Stented coronary artery Surgical History H/O hernia repair Presence of surgically created arteriovenous shunt for hemodialysis S/P arteriovenous (AV) fistula repair S/P nasal surgery Social History Smoking Status: Former smoker alcohol intake: never ROS ROS Narrative 10 point review of systems was reviewed and negative positives in HPI Vital Signs Vital Signs Vital Signs: 04/07/22 15:37 04/07/22 15:38 04/07/22 16:38 Temperature 98.7 F 98.7 F 97.4 F L Temperature Source Temporal Temporal Temporal Pulse Rate 86 86 72 Respiratory Rate 18 18 16 Blood Pressure 135/78 H 135/78 H 129/74 H Blood Pressure Mean 97 97 92 Pulse Ox 96 96 95 Oxygen Delivery Method Room Air Room Air Room Air 04/07/22 17:00 Temperature 97.4 F L Temperature Source Temporal Pulse Rate 69 Respiratory Rate 16 Blood Pressure 129/74 H Blood Pressure Mean 92 Pulse Ox 96 Oxygen Delivery Method Room Air Weight Weight: 210 lb Body Mass Index (BMI) 30.1 Physical Exam Narrative Const alert HEENT normocephalic and head/scalp atraumatic HEENT Narrative: wet membranes Eyes PERRL and EOMs intact bilaterally Resp normal respiratory effort Cardio regular rate and regular rhythm GI normal to inspection, nondistended, normoactive bowel sounds, soft to palpation and non-tender - hernia RLQ Extremity Extremity Narrative: Skin papules on dorsum of hand The toe has erythema and has an open wound -appears to be a small amount of purulence underneath. This wound does not have any eschar and looks fresh. Neuro Sensorium / Orientation: awake and alert Leg with Results Lab / Micro Data Result Diagrams: 04/07/22 16:00 04/07/22 16:00 Labs: Laboratory Results - last 24 hr 04/07/22 16:00: WBC 14.9 H, RBC 5.33, Hgb 14.7, Hct 46.0, MCV 86.3, MCH 27.6, MCHC 32.0, RDW Std Deviation 42.3, RDW Coeff of Carmina 13.5, Plt Count 255, MPV 9.8, Immature Gran % (Auto) 0.600, Neut % (Auto) 83.5 H, Lymph % (Auto) 6.4 L, [place] % (Auto) 8.8, Eos % (Auto) 0.4, Baso % (Auto) 0.3, Absolute Neuts (auto) 12.4 H, Absolute Lymphs (auto) 0.95, Nucleated RBC % 0 04/07/22 16:00: Sodium 139, Potassium 3.8, Chloride 106, Carbon Dioxide 23.0, Anion Gap 10, BUN 37 H, Creatinine 2.08 H, Estim Creat Clear Calc 39.48, Est GFR (MDRD) Af Amer 42 L, Est GFR (MDRD) Non-Af 35 L, BUN/Creatinine Ratio 17.8, Glucose 139 H, Calcium 9.0 04/07/22 16:00: Lactic Acid 0.9 Radiology Impression Foot X-Ray 04/07/22 16:22 IMPRESSION: No demonstrated fracture or malalignment. First digit soft tissue swelling. No osseous erosion. Electronically Signed: Ilya Vazquez MD ([place]) at 16:56 EDT Reading Location ID and State: [facility] / [place] , Service support , Assessment & Plan Assessment/Plan (1) Chronic kidney disease: QUALIFIERS: Chronic kidney disease stage: stage 3 (moderate) Chronic kidney disease stage 3 subtype: stage 3b (GFR 30-44) Qualified Code(s): N18.32 - Chronic kidney disease, stage 3b (2) Diabetic foot infection: (3) Hypertension: QUALIFIERS: Hypertension type: essential hypertension Qualified Code(s): I10 - Essential (primary) hypertension (4) Type II diabetes mellitus: QUALIFIERS: Diabetes mellitus complication status: with unspecified complications Diabetes mellitus supervisor intermediates insulin use: without assisted use Qualified Code(s): E11.8 - 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 unspecified complications PLAN: Diabetic foot wound Nausea and vomiting - Admitted to observation due to concerns of diabetes and chronic immunosuppresion. - We will continue vancomycin and Zosyn, taper and transition to oral antibiotics. - Continue wound care, wound care is consulted - No signs of sepsis at this point. Chronic kidney disease with previous Kidney Transplant - Monitor on BMP - Resume and Enversus prednisone and mycophenolate For diabetes we will resume glucose checks, diabetic diet and short acting insulin 14 units per meal. 28 units long-acting at night time. HTN- Resume home medications Full code and discussed with patient Charges/Coding Visit Charges OBSV E&M: 20189 Initial observation care L3
[2022-04-07] MEDS: Insulin Lispro 100 UNIT/ML INSULN.PEN 14 UNIT SC (18:55)
--- NOTE | 2022-04-07 18:57 | PCM.RX.CS ---
Consult Pharmacy has been consulted to manage selected antiobiotic: Vancomycin Type of Consult: New start Prior Doses of Antibiotics Received/Current Regimen: Medications Discontinued Medications Vancomycin HCl 1,500 mg/ (Sodium Chloride) 530 mls @ 250 mls/hr IV X1 ONE Stop: 04/07/22 17:58 Last Admin: 04/07/22 18:42 Dose: 250 mls/hr Documented by: Labs: Sodium 139 mmol/L (136-145) 04/07/22 16:00 Potassium 3.8 mmol/L (3.5-5.1) 04/07/22 16:00 Chloride 106 mmol/L (98-107) 04/07/22 16:00 Carbon Dioxide 23.0 mmol/L (21.0-32.0) 04/07/22 16:00 Anion Gap 10 (5-15) 04/07/22 16:00 BUN 37 mg/dL (7-18) H 04/07/22 16:00 Creatinine 2.08 mg/dL (0.70-1.30) H 04/07/22 16:00 Est GFR (MDRD) Af Amer 42 mL/min (>60) L 04/07/22 16:00 Est GFR (MDRD) Non-Af 35 mL/min (>60) L 04/07/22 16:00 BUN/Creatinine Ratio 17.8 RATIO (10-20) 04/07/22 16:00 Glucose 139 mg/dL (74-106) H 04/07/22 16:00 Weight used for dosin kg Estimated Creatinine Clearance: 39 Goal Trough: 15-20 mcg/mL Pharmacy Plan for Drug Dosinmg IV x1 given in ED. 1250mg q24h with trough prior to 3rd dose per policy. Patient has hx of renal disease but SCr currently near baseline. Pharmacy Service will continue to monitor and adjust dosing as required. Follow-Up Labs: Trough Vancomycin - 04/09 @ 1630
[2022-04-07] MEDS: Atorvastatin Calcium 10 MG Tablet PO (22:16)
[2022-04-07] MEDS: CYCLOSPORINE MODIFIED 25 MG PO (22:16)
[2022-04-07] MEDS: hydrALAZINE 25 MG Tablet PO (22:16)
[2022-04-07] MEDS: Insulin Glargine-YFGN 100 UNIT/ML Pen 28 UNIT SC (22:16)
[2022-04-07 22:35] LABS: Bedside Glucose 207 mg/dL (74-106)
[2022-04-08] MEDS: Levothyroxine 175 MCG Tablet PO (05:40)
[2022-04-08] MEDS: Pantoprazole Sodium 40 MG Tablet PO ×2 (05:40→08:13)
[2022-04-08 06:20] LABS: Absolute Lymphocyte Count 0.86 X10^3/uL (0.83-4.51); Basophil# 0.04 X10^3/uL; Basophil% 0.4 % (0-1); Eosinophil# 0.12 X10^3/uL; Eosinophils% 1.3 % (0-5); Hematocrit 37.1 % (40-54); Hemoglobin 11.5 g/dL (13.0-16.5); Lymphocyte # 0.86 X10^3/ul (0.83-4.51); Lymphocyte % 9.4 % (19-41); Mean Corpuscular Hgb 27.2 pg (27.0-32.0); Mean Corpuscular Volume 87.7 fL (80-94); Mean Platelet Vol. 9.6 fl (6.2-12.0); Monocyte# 1.03 X10^3/uL; Monocyte% 11.2 % (0-10); NRBC Flagged by Analyzer 0 % (0-5); Neutrophil # 7.04 X10^3/uL (2.7-7.7); Neutrophil % 76.9 % (47-70); Platelet Count 197 K/mm3 (150-450); RBC Distribution Width CV 13.4 % (11.6-14.6); RBC Distribution Width SD 43.4 fl (35.1-43.9); Red Blood Count 4.23 M/mm3 (4.6-6.2); White Blood Count 9.2 K/mm3 (4.4-11.0)
[2022-04-08 06:57] LABS: Anion Gap 8 (5-15); BUN 29 mg/dL (7-18); BUN/Creat Ratio 18.8 RATIO (10-20); Calcium,Total 6.5 mg/dL (8.5-10.1); Chloride 117 mmol/L (98-107); Creatinine, Serum 1.54 mg/dL (0.70-1.30); EST Glomerular Filtration Rate 49 mL/min (>60); Est Glom Filt Rate - Afr Amer 60 mL/min (>60); Estimated Creatinine Clearance 53.33 ml/min; Glucose 133 mg/dL (74-106); Potassium 2.6 mmol/L (3.5-5.1); Sodium Level 145 mmol/L (136-145)
[2022-04-08 08:10] VITALS: PULSE 66
[2022-04-08] MEDS: hydrALAZINE 25 MG Tablet PO ×2 (08:10→21:39)
[2022-04-08] MEDS: CYCLOSPORINE MODIFIED 25 MG PO ×2 (08:10→21:39)
[2022-04-08] MEDS: Carvedilol 12.5 MG Tablet PO (08:11)
[2022-04-08] MEDS: predniSONE 5 MG Tablet 7.5 MG PO (08:12)
[2022-04-08] MEDS: Calcitriol 0.25 MCG Capsule PO (08:13)
[2022-04-08] MEDS: Citalopram 40 MG TABLET PO (08:13)
[2022-04-08] MEDS: Insulin Lispro 100 UNIT/ML INSULN.PEN 14 UNIT SC ×3 (08:19→16:02)
[2022-04-08 09:00] VITALS: BP 151/61; PULSE 97; RESP 16; TEMP 36.9; O2SAT 96
[2022-04-08 09:07] LABS: AST(SGOT) 9 U/L (15-37); Alanine Aminotransfer ALT/SGPT 11 U/L (16-61); Albumin, Serum 2.2 g/dL (3.2-5.0); Alkaline Phosphatase 51 U/L (45-117); Bilirubin, Direct 0.11 mg/dL (0.00-0.30); Globulin 2.1 g/dL (2.2-4.2); Magnesium 1.2 mg/dL (1.6-2.6); Protein, Total 4.3 g/dL (6.4-8.2)
--- NOTE | 2022-04-08 09:32 | PN.HOSP_ITS ---
Subjective Subjective Follow-up on cellulitis/infected left plantar toe ulcer: Patient seen and examined. No acute events overnight. He denied any nausea or vomiting. He has been having some loose stools, not new, denied any pain in the foot. Objective Data Objective Data Vital Signs: Vital Signs Temp Pulse Resp BP Pulse Ox 98 F 66 16 139/78 H 97 04/07/22 22:15 04/08/22 08:10 04/07/22 22:15 04/07/22 22:16 04/07/22 22:15 Oxygen Delivery Method Room Air Weight: 93.4 kg Body Mass Index (BMI) 29.5 Intake & Output: Intake and Output for Last 24 Hours 04/06/22 04/07/22 04/08/22 23:59 23:59 23:59 Intake Total 1580.00 / 1580.00 50 / 50 Balance 1580.00 / 1580.00 50 / 50 Lab / Micro Data Result Diagrams: 04/08/22 05:06 04/08/22 05:06 Labs: Laboratory Results - last 24 hr 04/07/22 16:00: WBC 14.9 H, RBC 5.33, Hgb 14.7, Hct 46.0, MCV 86.3, MCH 27.6, MCHC 32.0, RDW Std Deviation 42.3, RDW Coeff of Carmina 13.5, Plt Count 255, MPV 9.8, Immature Gran % (Auto) 0.600, Neut % (Auto) 83.5 H, Lymph % (Auto) 6.4 L, [place] % (Auto) 8.8, Eos % (Auto) 0.4, Baso % (Auto) 0.3, Absolute Neuts (auto) 12.4 H, Absolute Lymphs (auto) 0.95, Nucleated RBC % 0 04/07/22 16:00: Sodium 139, Potassium 3.8, Chloride 106, Carbon Dioxide 23.0, A nion Gap 10, BUN 37 H, Creatinine 2.08 H, Estim Creat Clear Calc 39.48, Est GFR (MDRD) Af Amer 42 L, Est GFR (MDRD) Non-Af 35 L, BUN/Creatinine Ratio 17.8, Glucose 139 H, Calcium 9.0 04/07/22 16:00: Lactic Acid 0.9 04/07/22 22:12: POC Glucose 207 H 04/08/22 05:06: WBC 9.2, RBC 4.23 L, Hgb 11.5 L, Hct 37.1 L, MCV 87.7, MCH 27.2, MCHC 31.0 L, RDW Std Deviation 43.4, RDW Coeff of Carmina 13.4, Plt Count 197, MPV 9.6, Immature Gran % (Auto) 0.800, Neut % (Auto) 76.9 H, Lymph % (Auto) 9.4 L, [place] % (Auto) 11.2 H, Eos % (Auto) 1.3, Baso % (Auto) 0.4, Absolute Neuts (auto) 7.0, Absolute Lymphs (auto) 0.86, Nucleated RBC % 0 04/08/22 05:06: Sodium 145, Potassium 2.6 L*, Chloride 117 H, Carbon Dioxide 20.0 L, Anion Gap 8, BUN 29 H, Creatinine 1.54 H, Estim Creat Clear Calc 53.33, Est GFR (MDRD) Af Amer 60, Est GFR (MDRD) Non-Af 49 L, BUN/Creatinine Ratio 18.8, Glucose 133 H, Calcium 6.5 L* 04/08/22 05:06: Magnesium 1.2 L, Total Bilirubin 0.50, Direct Bilirubin 0.11, AST 9 L, ALT 11 L, Alkaline Phosphatase 51, Total Protein 4.3 L, Albumin 2.2 L, Globulin 2.1 L Radiography Diagnostic Testing: Radiology Impression Foot X-Ray 04/07/22 16:22 IMPRESSION: No demonstrated fracture or malalignment. First digit soft tissue swelling. No osseous erosion. Electronically Signed: Ilya Vazquez MD ([place]) at 16:56 EDT Reading Location ID and State: [facility] / [place] , Service support , Physical Exam Narrative Physical exam: General: Alert, Oriented x3, Cooperative, No apparent distress, Well developed HEENT: Atraumatic Oral: Moist Mucosa Neck: Supple Lungs: Clear to auscultation Cardiovascular: HS I+II, regular, no murmurs Abdomen: Obese, bowel Sounds Present, Soft, Non Tender Extremities: Trace bilateral edema right first toe plantar ulcer, erythema of the first toe, persistent, erythema of the foot improved Assessment & Plan Assessment/Plan (1) Chronic kidney disease: QUALIFIERS: Chronic kidney disease stage: stage 3 (moderate) Chronic kidney disease stage 3 subtype: stage 3b (GFR 30-44) Qualified Code(s): N18.32 - Chronic kidney disease, stage 3b (2) Diabetic foot infection: (3) Hypertension: QUALIFIERS: Hypertension type: essential hypertension Qualified Code(s): I10 - Essential (primary) hypertension (4) Type II diabetes mellitus: QUALIFIERS: Diabetes mellitus complication status: with unspecified complications Diabetes mellitus exterminator insulin use: without mcfp use Qualified Code(s): E11.8 - 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 unspecified complications PLAN: 1. Acute left plantar diabetic ulcer/cellulitis Continue IV vancomycin and Zosyn Podiatry consulted; follow-up on recommendations, wound RN consulted 2. Acute severe hypokalemia/hypomagnesemia, likely secondary to the nausea and vomiting Replaced, recheck in a.m. 3. CKD stage IIIa, patient with kidney transplant platelets improved today to 1.54, from 2.08 Continue IV fluids, repeat blood work in a.m. Continue on prednisone, Enversus, cyclosporine, mycophenolate 4. Type II DM, blood sugars fairly uncontrolled, increase Lantus to 30 units nightly, continue on Premeal lispro 14 units as well as insulin sliding scale 5. Hypertension, controlled, continue carvedilol 6. DVT PPx- Lovenox SC Charges/Coding Visit Charges Inpatient E&M: 57557 Subs Hosp L2
[2022-04-08] MEDS: Potassium Chloride 10mEq/100mL 10 MEQ/100 ML IV.SOLN. 100 MEQ IV BOLUS ×4 (10:03→13:12)
--- NOTE | 2022-04-08 11:47 | ART_ITS ---
Reason For Study: ulcer Procedure A bilateral lower extremity continuous wave Doppler with analog waveform analysis,segmental pressures,and ankle brachial indexes without exercise. Left Segmental Pressures Left dorsalis pedis artery = 197mmHg. Left digit = 148 mmHg. RN SUPPORT SERVICES is noncompressible. Right Segmental Pressures Right brachial= 163mmHg. Right digit = 122 mmHg. RN SUPPORT SERVICES and DPA are noncompressible. The right dorsalis pedis waveforms are triphasic. The right posterior tibial artery waveforms are triphasic. Indices The right digital-brachial index is .75. RN SUPPORT SERVICES and DPA are noncompressible. The left ankle brachial index by the dorsalis pedis is 1.21. The left digital-brachial index is .91. RN SUPPORT SERVICES is noncompressible. VL/Lower Ext Art Exam w/o Exercis Interpretation Summary Triphasic Doppler waveforms are noted at ankle level bilaterally. Pulse-volume recordings appear satisfactory at all levels bilaterally. The resting right ankle-brachial index could not be determined due to the non-compressibility of the vasculature at ankle level on the right. The resting left ankle-brachial index is normal. Digital-brachial indices are julio l bilaterally. There is evidence of arterial calcification at ankle level on the right. There is no evidence of significant arterial occlusive disease in the lower extremities bilaterally. Ordering Physician: Jarad Brand Performed By: Fercho Webber RVT
--- NOTE | 2022-04-08 12:04 | CON.PCM_ITS ---
Assessment & Plan Assessment/Plan (1) Cellulitis of left lower limb: PLAN: Evaluation performed. Reviewed diagnostic data. Patient did have elevated WBC yesterday. Xrays left foot reviewed and no gas or evidence of oste omyelitis. The left 1st toe ulceration was debrided using a 15 blade in excisional fashion. No anesthesia was needed due to patient's neuropathy. Hemostasis achieved with pressure and gauze. Wound does not probe to bone or deep tissue. A culture was obtained from left 1st toe ulceration and sent to microbiology for further evaluation. LEAS were ordered for further evaluation of LE arterial flow. Clinically patient has good arterial flow to toe and foot. Continue with IV antibiotic therapy. Reviewed importance of strict offloading of the ulcer site to help optimize healing. Sx shoe was ordered. Reviewed importance of proper blood sugar control to also help optimize healing. Podiatry will continue to follow. Thank you for consultation. (2) Diabetic peripheral neuropathy: (3) 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 foot ulcer: (4) Non-pressure chronic ulcer of other part of left foot with fat layer exposed: HPI Consult Data Date of Consult: 04/08/22 HPI Narrative HPI Narrative: ROBERT DIEZ, is a 61 M who presents with left 1st toe wound and infection. Patient relates he clipped some callus from left 1st toe using a toenail clipper about a week ago. Toe is now red and swollen. He relates his last ha1c was about 8.5. He has hx of kidney transplant and on immunosuppressive medication. He has been admitted for further treatment, he is on Vancomycin and Zosyn. Podiatry was consulted for further evaluation. Patient with no fever, chills, nausea or vomiting at this time. [facility] Medical History (Updated 04/08/22 @ 12:[address] Jarad Brand, [place]) Acute respiratory failure Acute respiratory failure with hypoxia Anemia Chronic systolic (congestive) heart failure Congestive heart failure (CHF) Cough with hemoptysis CPAP (continuous positive airway pressure) dependence Diffuse pulmonary alveolar hemorrhage Dilated cardiomyopathy End stage renal disease on dialysis Healthcare-associated pneumonia Hemoptysis History of immunosuppression therapy Hyperlipidemia Hypertension Hypothyroidism Kidney disease Left ventricular hypertrophy Lymphadenopathy DAVID (obstructive sleep apnea) Problem with dialysis access Sinus bradycardia Sleep apnea Type II diabetes mellitus Gee's granulomatosis with renal involvement Home Medications atorvastatin 10 mg PO DAILY 01/19/19 [History Last Taken 02/04/19] citalopram 40 mg PO DAILY 01/19/19 [History Last Taken 02/04/19] carvedilol 6.25 mg tablet 12.5 mg PO DAILY 01/27/19 [History Last Taken 05/29/19] insulin lispro See Protocol SQ PRN PRN 05/29/19 [History Last Taken Unknown] cyclosporine modified 25 mg PO BID 10/15/20 [History Last Taken Unknown] levothyroxine 175 mcg PO DAILY 10/15/20 [History Last Taken Unknown] pantoprazole 40 mg PO DAILY 10/15/20 [History Last Taken Unknown] Trulicity 0.75 mg/0.5 mL subcutaneous pen injector 0.75 mg SUBCUT QWEEK #6 ml NS 03/01/22 [Rx Last Taken Unknown] flash glucose scanning reader #1 ea 03/08/22 [Rx Last Taken Unknown] flash glucose sensor #2 ea 03/08/22 [Rx Last Taken Unknown] blood sugar diagnostic #120 ea 03/12/22 [Rx Last Taken Unknown] prednisone 10 mg tablet 7.5 mg PO DAILY tab 04/05/22 [History Last Taken Unknown] Envarsus XR 0.75 mg PO/SL DAILY 04/07/22 [History Last Taken Unknown] calcitriol 0.25 mcg PO DAILY 04/07/22 [History Last Taken Unknown] hydralazine 25 mg PO BID 04/07/22 [History Last Taken Unknown] mycophenolate sodium 360 mg PO BID 04/07/22 [History Last Taken Unknown] Allergy/AdvReac Type Severity Reaction Status Date / Time losartan Allergy Severe Hives Verified 04/07/22 15:39 epoetin beta [From Mircera] AdvReac back pain Verified 04/07/22 15:39 Family History Father CAD (coronary artery disease) Myocardial infarction, Onset Age: 56 Stented coronary artery Surgical History H/O hernia repair Presence of surgically created arteriovenous shunt for hemodialysis S/P arteriovenous (AV) fistula repair S/P nasal surgery Social History Smoking Status: Former smoker alcohol intake: never ROS Constitutional Constitutional: Denies chills or fever(s) Gastrointestinal Gastrointestinal: Denies nausea or vomiting Physical Exam Const alert, oriented x3 and no apparent distress Extremity Extremity Narrative: Left 1st toe with erythema and edema, there is ulceration plantar medial IPJ with overlying callus and fibrotic tissue. No other ulcerations bilateral foot. CFT < 2 seconds to all toes bilateral. Toenails intact 1-5 bilateral. No maloder, no fluctuance, no crepitus, no visible abscess bilateral foot. DP and PT pulses palpable bilateral. Calf soft and supple bilateral. Sensation appears diminished to forefoot bilateral. Motor function intact bilateral foot. No evidence of charcot neuroarthropathy bilateral foot or ankle. No m/s POP or pain on ROM to the foot or ankle. Lab / Micro Data Result Diagrams: 04/08/22 05:06 04/08/22 05:06 Labs: Laboratory Results - last 24 hr 04/07/22 16:00: WBC 14.9 H, RBC 5.33, Hgb 14.7, Hct 46.0, MCV 86.3, MCH 27.6, MCHC 32.0, RDW Std Deviation 42.3, RDW Coeff of Carmina 13.5, Plt Count 255, MPV 9.8, Immature Gran % (Auto) 0.600, Neut % (Auto) 83.5 H, Lymph % (Auto) 6.4 L, [place] % (Auto) 8.8, Eos % (Auto) 0.4, Baso % (Auto) 0.3, Absolute Neuts (auto) 12.4 H, Absolute Lymphs (auto) 0.95, Nucleated RBC % 0 04/07/22 16:00: Sodium 139, Potassium 3.8, Chloride 106, Carbon Dioxide 23.0, Anion Gap 10, BUN 37 H, Creatinine 2.08 H, Estim Creat Clear Calc 39.48, Est GFR (MDRD) Af Amer 42 L, Est GFR (MDRD) Non-Af 35 L, BUN/Creatinine Ratio 17.8, Glucose 139 H, Calcium 9.0 04/07/22 16:00: Lactic Acid 0.9 04/07/22 22:12: POC Glucose 207 H 04/08/22 05:06: WBC 9.2, RBC 4.23 L, Hgb 11.5 L, Hct 37.1 L, MCV 87.7, MCH 27.2, MCHC 31.0 L, RDW Std Deviation 43.4, RDW Coeff of Carmina 13.4, Plt Count 197, MPV 9.6, Immature Gran % (Auto) 0.800, Neut % (Auto) 76.9 H, Lymph % (Auto) 9.4 L, [place] % (Auto) 11.2 H, Eos % (Auto) 1.3, Baso % (Auto) 0.4, Absolute Neuts (auto) 7.0, Absolute Lymphs (auto) 0.86, Nucleated RBC % 0 04/08/22 05:06: Sodium 145, Potassium 2.6 L*, Chloride 117 H, Carbon Dioxide 20.0 L, Anion Gap 8, BUN 29 H, Creatinine 1.54 H, Estim Creat Clear Calc 53.33, Est GFR (MDRD) Af Amer 60, Est GFR (MDRD) Non-Af 49 L, BUN/Creatinine Ratio 18.8, Glucose 133 H, Calcium 6.5 L* 04/08/22 05:06: Magnesium 1.2 L, Total Bilirubin 0.50, Direct Bilirubin 0.11, AST 9 L, ALT 11 L, Alkaline Phosphatase 51, Total Protein 4.3 L, Albumin 2.2 L, Globulin 2.1 L Radiology Impression Foot X-Ray 04/07/22 16:22 IMPRESSION: No demonstrated fracture or malalignment. First digit soft tissue swelling. No osseous erosion. Electronically Signed: Ilya Vazquez MD ([place]) at 16:56 EDT Reading Location ID and State: [facility] / [place] , Service support ,
[2022-04-08 13:24] LABS: M R Staph aureus DNA By PCR Negative (Negative); Probe Check PASS; Specimen Processing Control PASS; Staph aureus DNA By PCR NEGATIVE (Negative)
[2022-04-08] MEDS: Magnesium Sulfate 4gm/100mL 4 GM/100 ML IV.SOLN. IV (14:06)
[2022-04-08 15:00] VITALS: BP 144/81; PULSE 71; RESP 20; TEMP 36.8; O2SAT 97
[2022-04-08] MEDS: Potassium Chloride Oral Tablet 20 MEQ 40 MEQ PO (16:02)
[2022-04-08 21:00] VITALS: BP 139/79; PULSE 64; RESP 16; TEMP 36.6; O2SAT 98
[2022-04-08 21:39] VITALS: BP 139/74; PULSE 64
[2022-04-08] MEDS: Atorvastatin Calcium 10 MG Tablet PO (21:39)
[2022-04-08] MEDS: Insulin Glargine-YFGN 100 UNIT/ML Pen 30 UNIT SC (21:42)
[2022-04-09 03:00] VITALS: BP 133/62; PULSE 60; RESP 18; TEMP 36.7; O2SAT 97
[2022-04-09 05:53] LABS: Absolute Lymphocyte Count 0.91 X10^3/uL (0.83-4.51); Absolute Neutrophil Count 8.4 X10^3/uL (2.0-7.7); Basophil# 0.04 X10^3/uL; Basophil% 0.4 % (0-1); Eosinophil# 0.08 X10^3/uL; Eosinophils% 0.8 % (0-5); Hematocrit 45.2 % (40-54); Hemoglobin 13.9 g/dL (13.0-16.5); Lymphocyte # 0.91 X10^3/ul (0.83-4.51); Lymphocyte % 8.7 % (19-41); Mean Corp Hgb Conc 30.8 g/dL (32-36); Mean Corpuscular Hgb 27.4 pg (27.0-32.0); Mean Platelet Vol. 9.7 fl (6.2-12.0); Monocyte# 0.93 X10^3/uL; Monocyte% 8.9 % (0-10); NRBC Flagged by Analyzer 0 % (0-5); Neutrophil # 8.43 X10^3/uL (2.7-7.7); Neutrophil % 80.5 % (47-70); Platelet Count 222 K/mm3 (150-450); RBC Distribution Width CV 13.2 % (11.6-14.6); RBC Distribution Width SD 43.2 fl (35.1-43.9); Red Blood Count 5.08 M/mm3 (4.6-6.2); White Blood Count 10.5 K/mm3 (4.4-11.0)
[2022-04-09] MEDS: Levothyroxine 175 MCG Tablet PO (06:32)
[2022-04-09 06:34] LABS: AST(SGOT) 11 U/L (15-37); Alanine Aminotransfer ALT/SGPT 16 U/L (16-61); Alkaline Phosphatase 68 U/L (45-117); Anion Gap 9 (5-15); BUN 31 mg/dL (7-18); BUN/Creat Ratio 16.8 RATIO (10-20); Calcium,Total 8.8 mg/dL (8.5-10.1); Chloride 110 mmol/L (98-107); Creatinine, Serum 1.85 mg/dL (0.70-1.30); EST Glomerular Filtration Rate 40 mL/min (>60); Est Glom Filt Rate - Afr Amer 48 mL/min (>60); Estimated Creatinine Clearance 44.39 ml/min; Glucose 135 mg/dL (74-106); Magnesium 2.6 mg/dL (1.6-2.6); Sodium Level 140 mmol/L (136-145)
--- NOTE | 2022-04-09 06:47 | PCM.PROGNOTE ---
Subjective Subjective This 61-year-old male was seen bedside for follow-up of left great toe ulcer with cellulitis extending into the top of the foot. He denies pain. He denies fever, nausea, vomiting. He does have some intermittent chills. He got his surgical shoe and this is bedside. Objective Data Objective Data Vital Signs: Vital Signs Temp Pulse Resp BP Pulse Ox 98.0 F 60 18 133/62 H 97 04/09/22 03:00 04/09/22 03:00 04/09/22 03:00 04/09/22 03:00 04/09/22 03:00 Oxygen Delivery Method Room Air Weight: 93.4 kg Body Mass Index (BMI) 29.5 Intake & Output: Intake and Output for Last 24 Hours 04/07/22 04/08/22 04/09/22 23:59 23:59 23:59 Intake Total 1580.00 / 1580.00 866.67 / 866.67 50 / 50 Balance 1580.00 / 1580.00 866.67 / 866.67 50 / 50 Lab / Micro Data Result Diagrams: 04/09/22 04:15 04/09/22 04:15 Labs: Laboratory Results - last 24 hr 04/08/22 05:06: Sodium 145, Potassium 2.6 L*, Chloride 117 H, Carbon Dioxide 20.0 L, Anion Gap 8, BUN 29 H, Creatinine 1.54 H, Estim Creat Clear Calc 53.33, Est GFR (MDRD) Af Amer 60, Est GFR (MDRD) Non-Af 49 L, BUN/Creatinine Ratio 18.8, Glucose 133 H, Calcium 6.5 L* 04/08/22 05:06: Magnesium 1.2 L, Total Bilirubin 0.50, Direct Bilirubin 0.11, AST 9 L, ALT 11 L, Alkaline Phosphatase 51, Total Protein 4.3 L, Albumin 2.2 L, Globulin 2.1 L 04/08/22 11:50: S.aureus Protein A PCR NEGATIVE, MRSA (PCR) Negative 04/09/22 04:15: WBC 10.5, RBC 5.08, Hgb 13.9, Hct 45.2, MCV 89.0, MCH 27.4, MCHC 30.8 L, RDW Std Deviation 43.2, RDW Coeff of Carmina 13.2, Plt Count 222, MPV 9.7, Immature Gran % (Auto) 0.700, Neut % (Auto) 80.5 H, Lymph % (Auto) 8.7 L, Sebastian % (Auto) 8.9, Eos % (Auto) 0.8, Baso % (Auto) 0.4, Absolute Neuts (auto) 8.4 H, Absolute Lymphs (auto) 0.91, Nucleated RBC % 0 04/09/22 04:15: Sodium 140, Potassium 4.0, Chloride 110 H, Carbon Dioxide 21.0, Anion Gap 9, BUN 31 H, Creatinine 1.85 H, Estim Creat Clear Calc 44.39, Est GFR (MDRD) Af Amer 48 L, Est GFR (MDRD) Non-Af 40 L, BUN/Creatinine Ratio 16.8, Glucose 135 H, Calcium 8.8, Magnesium 2.6, Total Bilirubin 0.50, AST 11 L, ALT 16, Alkaline Phosphatase 68, Total Protein 6.0 L, Albumin 3.0 L, Globulin 3.0, Albumin/Globulin Ratio 1.0 Physical Exam Const alert, oriented x3 and no apparent distress Extremity Extremity Narrative: Left 1st toe with erythema only on hallux (subjectively less intense and less expanded per marker line on foot) and decreased edema. There is ulceration plantar medial IPJ with granular / fibrotic base (80:20%). No other ulcerations bilateral foot. CFT < 2 seconds to all toes bilateral. No maloder, no fluctuance, no crepitus, no visible abscess bilateral foot. DP and PT pulses palpable bilateral. Calf soft and supple bilateral. Sensation appears diminished to forefoot bilateral via light touch. Motor function intact bilateral foot. No evidence of charcot neuroarthropathy bilateral foot or ankle. No m/s POP or pain on ROM to the foot or ankle. Assessment & Plan Assessment/Plan (1) Cellulitis of left lower limb: (2) Diabetic peripheral neuropathy: (3) 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 foot ulcer: (4) Non-pressure chronic ulcer of other part of left foot with fat layer exposed: PLAN: Evaluation performed. Reviewed diagnostic data. Xrays left foot reviewed and no gas or evidence of osteomyelitis. WBC 10.5. Wound does not probe to bone or deep tissue. Clinically it appears his condition is improving. A culture was obtained from left 1st toe ulceration and sent to microbiology for further evaluation; still pending. LEAS were ordered for further evaluation of LE arterial flow; test pending. Clinically patient has good arterial flow to toe and foot. Continue with IV antibiotic therapy; on broad-spectrum vancomycin and Zosyn. Reviewed importance of strict offloading of the ulcer site to help optimize healing. To heel weightbearing surgical shoe. I recommend nutritional supplementation to optimize healing; Yousif ordered. I recommend continued glycemic control and diabetes management to optimize healing well. His A1c is 8.9%. Medical management and DVT prophylaxis per hospitalist is appreciated. Podiatry will continue to follow while in house. Please do not hesitate to call if you have any questions. If he has noted lack of improvement, an MRI will be considered. It is noted this wound has not present for approximately 1 week. Melissa Wellington DPM, [facility] [phone]
--- NOTE | 2022-04-09 07:36 | PN.HOSP_ITS ---
Subjective Subjective Patient is a 61-year-old gentleman with a history of diabetes mellitus type 2 admitted with diabetic foot ulcer with cellulitis Objective Data Objective Data Vital Signs: Vital Signs Temp Pulse Resp BP Pulse Ox 98.0 F 60 18 133/62 H 97 04/09/22 03:00 04/09/22 03:00 04/09/22 03:00 04/09/22 03:00 04/09/22 03:00 Oxygen Delivery Method Room Air Weight: 93.4 kg Body Mass Index (BMI) 29.5 Intake & Output: Intake and Output for Last 24 Hours 04/07/22 04/08/22 04/09/22 23:59 23:59 23:59 Intake Total 1580.00 / 1580.00 866.67 / 866.67 355.25 / 355.25 Balance 1580.00 / 1580.00 866.67 / 866.67 355.25 / 355.25 Lab / Micro Data Result Diagrams: 04/09/22 04:15 04/09/22 04:15 Labs: Laboratory Results - last 24 hr 04/08/22 05:06: Magnesium 1.2 L, Total Bilirubin 0.50, Direct Bilirubin 0.11, AST 9 L, ALT 11 L, Alkaline Phosphatase 51, Total Protein 4.3 L, Albumin 2.2 L, Globulin 2.1 L 04/08/22 11:50: S.aureus Protein A PCR NEGATIVE, MRSA (PCR) Negative 04/09/22 04:15: WBC 10.5, RBC 5.08, Hgb 13.9, Hct 45.2, MCV 89.0, MCH 27.4, MCHC 30.8 L, RDW Std Deviation 43.2, RDW Coeff of Carmina 13.2, Plt Count 222, MPV 9.7, Immature Gran % (Auto) 0.700, Neut % (Auto) 80.5 H, Lymph % (Auto) 8.7 L, Terrell % (Auto) 8.9, Eos % (Auto) 0.8, Baso % (Auto) 0.4, Absolute Neuts (auto) 8.4 H, Absolute Lymphs (auto) 0.91, Nucleated RBC % 0 04/09/22 04:15: Sodium 140, Potassium 4.0, Chloride 110 H, Carbon Dioxide 21.0, Anion Gap 9, BUN 31 H, Creatinine 1.85 H, Estim Creat Clear Calc 44.39, Est GFR (MDRD) Af Amer 48 L, Est GFR (MDRD) Non-Af 40 L, BUN/Creatinine Ratio 16.8, Glucose 135 H, Calcium 8.8, Magnesium 2.6, Total Bilirubin 0.50, AST 11 L, ALT 16, Alkaline Phosphatase 68, Total Protein 6.0 L, Albumin 3.0 L, Globulin 3.0, Albumin/Globulin Ratio 1.0 Physical Exam Narrative GENERAL: cooperative HEENT: Atraumatic; EYES; Anicteric, Normal Conjunctiva NECK; supple, normal thyroid, RESPIRATORY: Diminished to auscultation CARDIOVASCULAR: Regular S1 S2, GI: soft, normoactive bowel sounds, : No Renal angle tenderness; EXTREMITIES: Left foot in dressing wound not exposed but pictures reviewed MUSCULOSKELETAL: no muscle wasting NEURO: Awake; no lateralizing signs. SKIN: No Rash PSYCH; Flat affect Assessment & Plan Assessment/Plan (1) Chronic kidney disease: QUALIFIERS: Chronic kidney disease stage: stage 3 (moderate) Chronic kidney disease stage 3 subtype: stage 3b (GFR 30-44) Qualified Code(s): N18.32 - Chronic kidney disease, stage 3b (2) Diabetic foot infection: (3) Hypertension: QUALIFIERS: Hypertension type: essential hypertension Qualified Code(s): I10 - Essential (primary) hypertension (4) Type II diabetes mellitus: QUALIFIERS: Diabetes mellitus complication status: with unspecified complications Diabetes mellitus detention insulin use: without exterminator use Qualified Code(s): E11.8 - 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 unspecified complications PLAN: Patient is a 61-year-old gentleman with a history of diabetes mellitus type 2 admitted with diabetic foot ulcer with cellulitis 1. Acute left plantar diabetic foot ulcer with cellulitis ? Admitted to regular nursing floor started on broad-spectrum antibiotic therapy with vancomycin and piperacillin/tazobactam and consult placed to podiatry as well as ID given patient's immunosuppressive state 2. Chronic kidney disease stage IIIa ? Patient has previous history of kidney transplant currently on immunosuppressant agents including prednisone,Envarsus cyclosporine and mycophenolate did continue 3. Hypokalemia ? Corrected per protocol 4. Hypomagnesemia ? Corrected per protocol 5. Diabetes mellitus type 2 ? Uncontrolled with hyperglycemia patient is on long-acting insulin dose adjusted scheduled Premeal short acting insulin added to her regimen 6. Hypertension - Blood pressure controlled, home medications continued with dose adjustment as needed 7. Dyslipidemia -Patient is on statin therapy, continued at home dose 8. DVT prophylaxis ? SC Lovenox Charges/Coding Visit Charges Inpatient E&M: 01941 Subs Hosp L2
[2022-04-09] MEDS: Potassium Chloride Oral Tablet 20 MEQ 40 MEQ PO (07:57)
[2022-04-09] MEDS: predniSONE 5 MG Tablet 7.5 MG PO (07:58)
[2022-04-09] MEDS: Insulin Lispro 100 UNIT/ML INSULN.PEN 14 UNIT SC ×3 (08:47→17:18)
[2022-04-09 09:00] VITALS: BP 138/74; PULSE 66; RESP 18; TEMP 37; O2SAT 98
--- NOTE | 2022-04-09 09:58 | CASEMGMT ---
SILVANA PHAM Assessment: Face to Face with pt for initial transition planning/care coordination assessment. RN ANKIT introduced self and role at [facility], pt voices understanding and consents to assessment. Pt is A/O x4 and answers all questions appropriately at this time. Pt sitting up in chair. He states he does not need anything from the RN CM but is agreeable to answering questions. Care providers, pharmacy, and demographics verified/updated. Admitting Dx: cellulitis of foot PCP:Edilberto Specialists:marcelino Contreras; Maki, rheum; [facility] transplant team Preferred Pharmacy: [facility] Insurance: [employer] [facility] Prescription Benefit: yes LW/HPOA: Pt denies having a LW/DPOA and denies need for info regarding AD. LNOK: Sally Mccrary Living Arrangements: Pt lives with in a single story house with a couple of steps to enter. Pt reports he is I in ADL's and denies concerns at home. Pt seen ambulating in the halls indep. Transportation: Pt drives self and denies concerns with transportation. DME/HHC/SNF: Pt has a CPAP, Javed 2 which he checks his blood sugars every 2 hours. Pt has the appropriate supplies for this. Pt also takes insulin and has supplies and insulin. Pt has had HHC in the past but is unsure of the name of the agency. Pt has been to a SNF in [place] but cannot recall the name of the SNF. Pt states no concerns with going home at time of dc. Pt states he or his is able to complete wound care. He states he feels this is overboard. He denies needs for HHC. Pt states no further concerns/needs. CM to follow. Advised pt to ask CM if any further question/concerns/needs arise, voices understanding. Pt Goal: Home Plan: Home
[2022-04-09 10:07] VITALS: PULSE 74
[2022-04-09] MEDS: Enoxaparin 40 MG/0.4 ML Syringe SC (10:07)
[2022-04-09] MEDS: hydrALAZINE 25 MG Tablet PO ×2 (10:07→20:13)
[2022-04-09] MEDS: Calcitriol 0.25 MCG Capsule PO (10:08)
[2022-04-09] MEDS: Citalopram 40 MG TABLET PO (10:08)
[2022-04-09] MEDS: Pantoprazole Sodium 40 MG Tablet PO (10:08)
[2022-04-09] MEDS: CYCLOSPORINE MODIFIED 25 MG PO (10:08)
[2022-04-09] MEDS: Carvedilol 12.5 MG Tablet PO (10:09)
--- NOTE | 2022-04-09 13:59 | PCM.CONS.GEN ---
Assessment & Plan Assessment/Plan (1) Diabetic foot infection: PLAN: Kidney transplant 06/2020. L 1st toe improving, cont vanc/zosyn. Wound cx with strep. Planning on narrowing abx tomorrow. Will follow, thank you, d/w Dr. Turpin (2) History of immunosuppression therapy: HPI Consult Data Date of Consult: 04/09/22 HPI Narrative HPI Narrative: ROBERT DIEZ, is a 61 M with kidney transplant at [facility] 06/2020, on stable immunosuppression. Postop course complicated by incision infection, no other h/o infection/rejection. Came to ED with one week of progressive L 1st toe pain, redness, swelling after cutting a callus at home. Mild chills, was started on amox by PCP on 04/06. Admitted here on vanc/zosyn, seen by podiatry, feeling better. Covid vaccine x3. Full ROS performed and neg except as noted above. [facility] Medical History (Updated 04/09/22 @ 14:[address] Pedro Echeverria MD) Acute respiratory failure Acute respiratory failure with hypoxia Anemia Chronic systolic (congestive) heart failure Congestive heart failure (CHF) Cough with hemoptysis CPAP (continuous positive airway pressure) dependence Diffuse pulmonary alveolar hemorrhage Dilated cardiomyopathy End stage renal disease on dialysis Healthcare-associated pneumonia Hemoptysis History of immunosuppression therapy Hyperlipidemia Hypertension Hypothyroidism Kidney disease Left ventricular hypertrophy Lymphadenopathy DAVID (obstructive sleep apnea) Problem with dialysis access Sinus bradycardia Sleep apnea Type II diabetes mellitus Gee's granulomatosis with renal involvement Home Medications atorvastatin 10 mg PO DAILY 01/19/19 [History Last Taken 02/04/19] citalopram 40 mg PO DAILY 01/19/19 [History Last Taken 02/04/19] carvedilol 6.25 mg tablet 12.5 mg PO DAILY 01/27/19 [History Last Taken 05/29/19] insulin lispro See Protocol SQ PRN PRN 05/29/19 [History Last Taken Unknown] cyclosporine modified 25 mg PO BID 10/15/20 [History Last Taken Unknown] levothyroxine 175 mcg PO DAILY 10/15/20 [History Last Taken Unknown] pantoprazole 40 mg PO DAILY 10/15/20 [History Last Taken Unknown] Trulicity 0.75 mg/0.5 mL subcutaneous pen injector 0.75 mg SUBCUT QWEEK #6 ml NS 03/01/22 [Rx Last Taken Unknown] flash glucose scanning reader #1 ea 03/08/22 [Rx Last Taken Unknown] flash glucose sensor #2 ea 03/08/22 [Rx Last Taken Unknown] blood sugar diagnostic #120 ea 03/12/22 [Rx Last Taken Unknown] prednisone 10 mg tablet 7.5 mg PO DAILY tab 04/05/22 [History Last Taken Unknown] Envarsus XR 0.75 mg PO/SL DAILY 04/07/22 [History Last Taken Unknown] calcitriol 0.25 mcg PO DAILY 04/07/22 [History Last Taken Unknown] hydralazine 25 mg PO BID 04/07/22 [History Last Taken Unknown] mycophenolate sodium 360 mg PO BID 04/07/22 [History Last Taken Unknown] Allergy/AdvReac Type Severity Reaction Status Date / Time losartan Allergy Severe Hives Verified 04/07/22 15:39 epoetin beta [From Mircera] AdvReac back pain Verified 04/07/22 15:39 Family History Father CAD (coronary artery disease) Myocardial infarction, Onset Age: 56 Stented coronary artery Surgical History H/O hernia repair Presence of surgically created arteriovenous shunt for hemodialysis S/P arteriovenous (AV) fistula repair S/P nasal surgery Social History Smoking Status: Former smoker alcohol intake: never Physical Exam Const alert, oriented x3 and no apparent distress General Appearance: cooperative Exam Limitations: no limitations HEENT normocephalic and head/scalp atraumatic Eyes PERRL and EOMs intact bilaterally Neck supple and No nodes Resp normal air movement and clear to auscultation bilaterally Cardio regular rate and regular rhythm GI soft to palpation, non-tender and non-distended Extremity no clubbing, cyanosis or edema Skin Skin Narrative: L toe wrapped Lab / Micro Data Result Diagrams: 04/09/22 04:15 04/09/22 04:15 Labs: Laboratory Results - last 24 hr 04/09/22 04:15: WBC 10.5, RBC 5.08, Hgb 13.9, Hct 45.2, MCV 89.0, MCH 27.4, MCHC 30.8 L, RDW Std Deviation 43.2, RDW Coeff of Carmina 13.2, Plt Count 222, MPV 9.7, Immature Gran % (Auto) 0.700, Neut % (Auto) 80.5 H, Lymph % (Auto) 8.7 L, Coryell % (Auto) 8.9, Eos % (Auto) 0.8, Baso % (Auto) 0.4, Absolute Neuts (auto) 8.4 H, Absolute Lymphs (auto) 0.91, Nucleated RBC % 0 04/09/22 04:15: Sodium 140, Potassium 4.0, Chloride 110 H, Carbon Dioxide 21.0, Anion Gap 9, BUN 31 H, Creatinine 1.85 H, Estim Creat Clear Calc 44.39, Est GFR (MDRD) Af Amer 48 L, Est GFR (MDRD) Non-Af 40 L, BUN/Creatinine Ratio 16.8, Glucose 135 H, Calcium 8.8, Magnesium 2.6, Total Bilirubin 0.50, AST 11 L, ALT 16, Alkaline Phosphatase 68, Total Protein 6.0 L, Albumin 3.0 L, Globulin 3.0, Albumin/Globulin Ratio 1.0 Micro: Microbiology 04/08/22 11:50 Wound - Toe Wound Culture - Preliminary Beta streptococcus
--- NOTE | 2022-04-09 15:34 | CHAPLAIN ---
Type of Pastoral Visit _x__ Initial Visit ___ Follow-up Visit ___ On-call Visit ___ General Patient Visit ___ Spiritual Assessment ___ Family Conference ___ Bereavement ___ Rapid Response ___ Code Blue ___ Other (describe below) Pastoral Care Referral From _x__ Patient ___ Family ___ Nurse ___ Physician ___ Conference Producer ___ Dining Room Attendant Cafeteria ___ Other (describe below) Sacrament/Intervention _x__ Active listening ___ Anointing ___ Rastafarian ___ Bereavement ___ Communion _x__ Aide exploration ___ _x__ Life review _x__ Prayer ___ Reconciliation ___ Sacrament of Sick ___ Supportive presence ___ Wedding ___ Other (describe below) Pastoral Comments patient talks about his situation and health; pt has had many opportunities to receive healthcare and surgeries, etc.; pt displays good attitude and ability to express himself; prayer received
[2022-04-09 16:14] VITALS: BP 132/75; PULSE 62; RESP 18; TEMP 36.6; O2SAT 98
[2022-04-09 17:07] LABS: Vancomycin, Trough Level 15.2 ug/mL (5.0-15.0)
--- NOTE | 2022-04-09 17:19 | PCM.RX.CS ---
Consult Pharmacy has been consulted to manage selected antiobiotic: Vancomycin Type of Consult: Follow-up Prior Doses of Antibiotics Received/Current Regimen: Medications Vancomycin HCl 1,250 mg/ (Sodium Chloride) 275 mls @ 167 mls/hr IV Q24H ROCKY Last Admin: 04/08/22 17:56 Dose: Infused Documented by: Labs: Sodium 140 mmol/L (136-145) 04/09/22 04:15 Potassium 4.0 mmol/L (3.5-5.1) 04/09/22 04:15 Chloride 110 mmol/L (98-107) H 04/09/22 04:15 Carbon Dioxide 21.0 mmol/L (21.0-32.0) 04/09/22 04:15 Anion Gap 9 (5-15) 04/09/22 04:15 BUN 31 mg/dL (7-18) H 04/09/22 04:15 Creatinine 1.85 mg/dL (0.70-1.30) H 04/09/22 04:15 Est GFR (MDRD) Af Amer 48 mL/min (>60) L 04/09/22 04:15 Est GFR (MDRD) Non-Af 40 mL/min (>60) L 04/09/22 04:15 BUN/Creatinine Ratio 16.8 RATIO (10-20) 04/09/22 04:15 Glucose 135 mg/dL (74-106) H 04/09/22 04:15 Vancomycin Trough 15.2 ug/mL (5.0-15.0) H 04/09/22 16:29 Microbiology: Microbiology 04/08/22 11:50 Wound - Toe Wound Culture - Preliminary Beta streptococcus Goal Trough: 15-20 mcg/mL Pharmacy Plan for Drug Dosing: Trough in goal range. SCr elevated slightly from previous but still below baseline. ID plans to narrow tomorrow. Recommend to recheck in 48 hours if still active considering level already in goal range after 2 doses and considering patient's hx. Pharmacy Service will continue to monitor and adjust dosing as required. Follow-Up Labs: Trough Vancomycin - 04/11 @ 1630
[2022-04-09 20:03] VITALS: BP 148/81; PULSE 70; RESP 18; TEMP 36.4; O2SAT 99
[2022-04-09 20:13] VITALS: PULSE 70
[2022-04-09] MEDS: Atorvastatin Calcium 10 MG Tablet PO (20:13)
[2022-04-09] MEDS: Insulin Glargine-YFGN 100 UNIT/ML Pen 30 UNIT SC (21:29)
--- NOTE | 2022-04-09 21:34 | NURSING ---
blood sugar per freestyle herve: 177
[2022-04-10 02:38] VITALS: BP 154/81; PULSE 60; RESP 18; TEMP 36.6; O2SAT 98
[2022-04-10] MEDS: Levothyroxine 175 MCG Tablet PO (05:57)
[2022-04-10 06:11] LABS: Absolute Lymphocyte Count 1.11 X10^3/uL (0.83-4.51); Absolute Neutrophil Count 9.2 X10^3/uL (2.0-7.7); Basophil# 0.07 X10^3/uL; Basophil% 0.6 % (0-1); Eosinophil# 0.07 X10^3/uL; Eosinophils% 0.6 % (0-5); Hematocrit 43.9 % (40-54); Hemoglobin 13.7 g/dL (13.0-16.5); Lymphocyte # 1.11 X10^3/ul (0.83-4.51); Lymphocyte % 9.6 % (19-41); Mean Corp Hgb Conc 31.2 g/dL (32-36); Mean Corpuscular Hgb 27.5 pg (27.0-32.0); Mean Platelet Vol. 9.5 fl (6.2-12.0); Monocyte# 1.01 X10^3/uL; Monocyte% 8.7 % (0-10); NRBC Flagged by Analyzer 0 % (0-5); Neutrophil # 9.23 X10^3/uL (2.7-7.7); Neutrophil % 79.6 % (47-70); Platelet Count 251 K/mm3 (150-450); RBC Distribution Width CV 13.3 % (11.6-14.6); RBC Distribution Width SD 42.7 fl (35.1-43.9); Red Blood Count 4.99 M/mm3 (4.6-6.2); White Blood Count 11.6 K/mm3 (4.4-11.0)
--- NOTE | 2022-04-10 06:29 | PN_ITS ---
Subjective Subjective This 61-year-old male was seen bedside for follow-up of left great toe ulcer with cellulitis extending into the top of the foot. He denies pain. He denies fever, nausea, chills, vomiting. Objective Data Objective Data Vital Signs: Vital Signs Temp Pulse Resp BP Pulse Ox 97.8 F 60 18 154/81 H 98 04/10/22 02:38 04/10/22 02:38 04/10/22 02:38 04/10/22 02:38 04/10/22 02:38 Oxygen Delivery Method Room Air Weight: 93.4 kg Body Mass Index (BMI) 29.5 Intake & Output: Intake and Output for Last 24 Hours 04/08/22 04/09/22 04/10/22 23:59 23:59 23:59 Intake Total 866.67 / 866.67 2267.00 / 2267.00 650 / 650 Balance 866.67 / 866.67 2267.00 / 2267.00 650 / 650 Lab / Micro Data Result Diagrams: 04/10/22 04:41 04/10/22 04:41 Labs: Laboratory Results - last 24 hr 04/09/22 04:15: Sodium 140, Potassium 4.0, Chloride 110 H, Carbon Dioxide 21.0, Anion Gap 9, BUN 31 H, Creatinine 1.85 H, Estim Creat Clear Calc 44.39, Est GFR (MDRD) Af Amer 48 L, Est GFR (MDRD) Non-Af 40 L, BUN/Creatinine Ratio 16.8, Glucose 135 H, Calcium 8.8, Magnesium 2.6, Total Bilirubin 0.50, AST 11 L, ALT 16, Alkaline Phosphatase 68, Total Protein 6.0 L, Albumin 3.0 L, Globulin 3.0, Albumin/Globulin Ratio 1.0 04/09/22 16:29: Vancomycin Trough 15.2 H 04/10/22 04:41: WBC 11.6 H, RBC 4.99, Hgb 13.7, Hct 43.9, MCV 88.0, MCH 27.5, MCHC 31.2 L, RDW Std Deviation 42.7, RDW Coeff of Carmina 13.3, Plt Count 251, MPV 9.5, Immature Gran % (Auto) 0.900, Neut % (Auto) 79.6 H, Lymph % (Auto) 9.6 L, Highland % (Auto) 8.7, Eos % (Auto) 0.6, Baso % (Auto) 0.6, Absolute Neuts (auto) 9. 2 H, Absolute Lymphs (auto) 1.11, Nucleated RBC % 0 Micro: Microbiology 04/08/22 11:50 Wound - Toe Wound Culture - Preliminary Beta streptococcus Radiography Diagnostic Testing: Radiology Impression Extremity Arterial Study 04/08/22 11:47 Interpretation Summary Triphasic Doppler waveforms are noted at ankle level bilaterally. Pulse-volume recordings appear satisfactory at all levels bilaterally. The resting right ankle-brachial index could not be determined due to the non-compressibility of the vasculature at ankle level on the right. The resting left ankle-brachial index is normal. Digital-brachial indices are normal bilaterally. There is evidence of arterial calcification at ankle level on the right. There is no evidence of significant arterial occlusive disease in the lower extremities bilaterally. Ordering Physician: Jarad Brand Performed By: Fercho Webber, RVT Physical Exam Const alert, oriented x3 and no apparent distress Extremity Extremity Narrative: Left 1st toe with erythema only on hallux (decreased) and decreased edema. There is ulceration plantar medial IPJ with granular / fibrotic base (80:20%). No other ulcerations bilateral foot. CFT < 2 seconds to all toes bilateral. No maloder, no fluctuance, no crepitus, no visible abscess bilateral foot. DP and PT pulses palpable bilateral. Calf soft and supple bilateral. Sensation appears diminished to forefoot bilateral via light touch. Motor function intact bilateral foot. No evidence of charcot neuroarthropathy bilateral foot or ankle. No m/s POP or pain on ROM to the foot or ankle. Assessment & Plan Assessment/Plan (1) Cellulitis of left lower limb: (2) Diabetic peripheral neuropathy: (3) 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 foot ulcer: (4) Non-pressure chronic ulcer of other part of left foot with fat layer exposed: PLAN: Evaluation performed. Reviewed diagnostic data. Xrays left foot reviewed and no gas or evidence of osteomyelitis. WBC > 11. Wound does not probe to bone or deep tissue. Clinically it appears his condition is improving. A culture was obtained from left 1st toe ulceration and sent to microbiology for further evaluation; still pending. LEAS were ordered for further evaluation of LE arterial flow. There is some non compressibility noted. Left DANIELLA and toe pressures normal with triphasic waveform. Referral will be considered if lack of healing noted in outpatient setting. Continue with IV antibiotic therapy; on broad-spectrum vancomycin and Zosyn. ID consult is appreciated. Narrowing AB will be considered today. Strep noted. Reviewed importance of strict offloading of the ulcer site to help optimize healing. To heel weightbearing surgical shoe. Will consider total contact cast application with wound care center follow up. I recommend nutritional supplementation to optimize healing; Yousif ordered. I recommend continued glycemic control and diabetes management to optimize healing well. His A1c is 8.9%. Medical management and DVT prophylaxis per hospitalist is appreciated. Podiatry will continue to follow while in house. Please do not hesitate to call if you have any questions. F/u wound care center at time of discharge. Ok to d/c from a podiatry [facility]. Melissa Wellington DPM, [facility] [phone]
[2022-04-10 06:40] LABS: Anion Gap 8 (5-15); BUN 34 mg/dL (7-18); BUN/Creat Ratio 17.5 RATIO (10-20); Calcium,Total 9.1 mg/dL (8.5-10.1); Chloride 110 mmol/L (98-107); Creatinine, Serum 1.94 mg/dL (0.70-1.30); EST Glomerular Filtration Rate 38 mL/min (>60); Est Glom Filt Rate - Afr Amer 46 mL/min (>60); Estimated Creatinine Clearance 42.33 ml/min; Glucose 126 mg/dL (74-106); Potassium 4.4 mmol/L (3.5-5.1); Sodium Level 139 mmol/L (136-145)
--- NOTE | 2022-04-10 06:56 | WOUNDNOTE ---
wound photo: left great toe
--- NOTE | 2022-04-10 07:19 | WOUNDNOTE ---
skin photo: left great toe
[2022-04-10 07:45] VITALS: BP 167/79; PULSE 61
[2022-04-10] MEDS: hydrALAZINE 25 MG Tablet PO (07:45)
[2022-04-10] MEDS: predniSONE 5 MG Tablet 7.5 MG PO (07:45)
[2022-04-10] MEDS: Carvedilol 12.5 MG Tablet PO (07:46)
--- NOTE | 2022-04-10 07:50 | PCM.PN.HOSP ---
Subjective Subjective Patient seen plan for patient to be for possible discharge once evaluated by ID Objective Data Objective Data Vital Signs: Vital Signs Temp Pulse Resp BP Pulse Ox 97.8 F 61 18 167/79 H 98 04/10/22 02:38 04/10/22 07:45 04/10/22 02:38 04/10/22 07:45 04/10/22 02:38 Oxygen Delivery Method Room Air Weight: 93.4 kg Body Mass Index (BMI) 29.5 Intake & Output: Intake and Output for Last 24 Hours 04/08/22 04/09/22 04/10/22 23:59 23:59 23:59 Intake Total 866.67 / 866.67 2267.00 / 2267.00 650 / 650 Balance 866.67 / 866.67 2267.00 / 2267.00 650 / 650 Lab / Micro Data Result Diagrams: 04/10/22 04:41 04/10/22 04:41 Labs: Laboratory Results - last 24 hr 04/09/22 16:29: Vancomycin Trough 15.2 H 04/10/22 04:41: WBC 11.6 H, RBC 4.99, Hgb 13.7, Hct 43.9, MCV 88.0, MCH 27.5, MCHC 31.2 L, RDW Std Deviation 42.7, RDW Coeff of Carmina 13.3, Plt Count 251, MPV 9.5, Immature Gran % (Auto) 0.900, Neut % (Auto) 79.6 H, Lymph % (Auto) 9.6 L, Heard % (Auto) 8.7, Eos % (Auto) 0.6, Baso % (Auto) 0.6, Absolute Neuts (auto) 9.2 H, Absolute Lymphs (auto) 1.11, Nucleated RBC % 0 04/10/22 04:41: Sodium 139, Potassium 4.4, Chloride 110 H, Carbon Dioxide 21.0, Anion Gap 8, BUN 34 H, Creatinine 1.94 H, Estim Creat Clear Calc 42.33, Est GFR (MDRD) Af Amer 46 L, Est GFR (MDRD) Non-Af 38 L, BUN/Creatinine Ratio 17.5, Glucose 126 H, Calcium 9.1 Micro: Microbiology 04/08/22 11:50 Wound - Toe Wound Culture - Preliminary Beta streptococcus Radiography Diagnostic Testing: Radiology Impression Extremity Arterial Study 04/08/22 11:47 Interpretation Summary Triphasic Doppler waveforms are noted at ankle level bilaterally. Pulse-volume recordings appear satisfactory at all levels bilaterally. The resting right ankle-brachial index could not be determined due to the non-compressibility of the vasculature at ankle level on the right. The resting left ankle-brachial index is normal. Digital-brachial indices are normal bilaterally. There is evidence of arterial calcification at ankle level on the right. There is no evidence of significant arterial occlusive disease in the lower extremities bilaterally. Ordering Physician: Jarad Brand Performed By: Fercho Webber, RVT Physical Exam Narrative GENERAL: cooperative HEENT: Atraumatic; EYES; Anicteric, Normal Conjunctiva NECK; supple, normal thyroid, RESPIRATORY: Diminished to auscultation CARDIOVASCULAR: Regular S1 S2, GI: soft, normoactive bowel sounds, : No Renal angle tenderness; EXTREMITIES: Left foot in dressing wound not exposed but pictures reviewed MUSCULOSKELETAL: no muscle wasting NEURO: Awake; no lateralizing signs. 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 Acute left plantar diabetic foot ulcer with cellulitis ? Admitted to regular nursing floor started on broad-spectrum antibiotic therapy with vancomycin and piperacillin/tazobactam and consult placed to podiatry as well as ID given patient's immunosuppressive state ? 04/10/2022 plans for patient to be discharged home following evaluation by ID 2. Chronic kidney disease stage IIIa ? Patient has previous history of kidney transplant currently on immunosuppressant agents including prednisone,Envarsus cyclosporine and mycophenolate did continue 3. Hypokalemia ? Corrected per protocol 4. Hypomagnesemia ? Corrected per protocol 5. Diabetes mellitus type 2 ? Uncontrolled with hyperglycemia patient is on long-acting insulin dose adjusted scheduled Premeal short acting insulin added to her regimen 6. Hypertension - Blood pressure controlled, home medications continued with dose adjustment as needed 7. Dyslipidemia -Patient is on statin therapy, continued at home dose 8. DVT prophylaxis ? SC Lovenox Charges/Coding Visit Charges Inpatient E&M: 23204 Subs Hosp L2
[2022-04-10 08:00] VITALS: RESP 18
[2022-04-10] MEDS: Insulin Lispro 100 UNIT/ML INSULN.PEN 14 UNIT SC (08:19)
[2022-04-10 08:30] VITALS: BP 167/79; PULSE 61; RESP 18; TEMP 36.6; O2SAT 98
[2022-04-10] MEDS: CYCLOSPORINE MODIFIED 25 MG PO ×2 (10:06→10:07)
[2022-04-10] MEDS: Citalopram 40 MG TABLET PO (10:06)
--- NOTE | 2022-04-10 10:06 | PCM.PN.ID ---
Physical Exam Narrative Feeling better, no fever, toe improved. Const alert and no apparent distress General Appearance: cooperative Resp normal air movement and clear to auscultation bilaterally Cardio regular rate and regular rhythm GI soft to palpation, non-tender and non-distended Skin Skin Narrative: reviewed photos ID ID: Route of nutrition/ use of supplements: [] Nutritional Intake: [] IV Site: [] Walsh Catheter: [] Assessment & Plan Assessment/Plan (1) Diabetic foot infection: PLAN: Kidney transplant 06/2020. L 1st toe improving. Wound cx with strep. Will narrow to unasyn, ok for home with po augmentin 875mg bid for one more week. Will follow (2) History of immunosuppression therapy:
[2022-04-10] MEDS: Calcitriol 0.25 MCG Capsule PO (10:07)
[2022-04-10] MEDS: Pantoprazole Sodium 40 MG Tablet PO (10:07)
[2022-04-10 10:53] VITALS: BP 156/87; PULSE 66; RESP 18; TEMP 36.8; O2SAT 98
--- NOTE | 2022-04-10 10:54 | DS.PCM_ITS ---
Providers Date of Admission: 04/08/22 Primary Care Physician: Dr. Marques Casanova MD Consultations 04/07/22 18:34 Consult: Onc/Wound/chief librarian extension department Routine Comment: Consult: Podiatry Routine Consulting Provider: Jarad Brand Reason for Consult: evaluation of foot wound. EMERGENT Consult: No Notified: Yes Date Notified: 04/08/22 Time Notified: 08:13 Method of Notification: Text 04/09/22 09:49 Consult: Infectious Disease Routine Consulting Provider: Pedro Echeverria Reason for Consult: diabetic foot infection EMERGENT Consult: No Notified: Yes Date Notified: 04/09/22 Time Notified: 10:22 Method of Notification: Text Reason For Visit: CELLLULITIS OF FOOT Diagnosis Discharge Diagnosis (1) Chronic kidney disease: Status: Chronic Code(s): N18.9 - Chronic kidney disease, unspecified Qualifiers: Chronic kidney disease stage: stage 3 (moderate) Chronic kidney disease stage 3 subtype: stage 3b (GFR 30-44) Qualified Code(s): N18.32 - Chronic kidney disease, stage 3b (2) Diabetic foot infection: Status: Acute Code(s): E11.628 - 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 other skin complications; L08.9 - Local infection of the skin and subcutaneous tissue, unspecified (3) Hypertension: Status: Chronic Code(s): I10 - Essential (primary) hypertension Qualifiers: Hypertension type: essential hypertension Qualified Code(s): I10 - Essential (primary) hypertension (4) Type II diabetes mellitus: Status: Chronic Code(s): E11.9 - 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out complications Qualifiers: Diabetes mellitus complication status: with unspecified complications 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: without penitentiary use Qualified Code(s): E11.8 - 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 unspecified complications Medications at Discharge Home Medications atorvastatin 10 mg PO DAILY 01/19/19 citalopram 40 mg PO DAILY 01/19/19 carvedilol 6.25 mg tablet 12.5 mg PO DAILY 01/27/19 insulin lispro See Protocol SQ PRN PRN 05/29/19 levothyroxine 175 mcg PO DAILY 10/15/20 pantoprazole 40 mg PO DAILY 10/15/20 Trulicity 0.75 mg/0.5 mL subcutaneous pen injector 0.75 mg SUBCUT QWEEK #6 ml NS 03/01/22 flash glucose scanning reader #1 ea 03/08/22 flash glucose sensor #2 ea 03/08/22 blood sugar diagnostic #120 ea 03/12/22 prednisone 10 mg tablet 7.5 mg PO DAILY tab 04/05/22 Envarsus XR 0.75 mg PO/SL DAILY 04/07/22 calcitriol 0.25 mcg PO DAILY 04/07/22 hydralazine 25 mg PO BID 04/07/22 mycophenolate sodium 360 mg PO BID 04/07/22 amoxicillin-pot clavulanate 1 tab PO BID #14 tab 04/10/22 Hospital Course Summary of Care Provided Minutes Spent on Discharge: 35 Hospital Course: Patient is a 61-year-old gentleman with a history of diabetes mellitus type 2 admitted with diabetic foot ulcer with cellulitis 1. Acute left plantar diabetic foot ulcer with cellulitis with Streptococcus group G ? Admitted to regular nursing floor started on broad-spectrum antibiotic therapy with vancomycin and piperacillin/tazobactam and consult placed to podiatry as well as ID given patient's immunosuppressive state ? 04/10/2022; cultures came back positive for Streptococcus pyogenes. Case was discussed with Dr. Echeverria patient discharged home on Augmentin 875 p.o. twice daily for 1 additional week 2. Chronic kidney disease stage IIIa ? Patient has previous history of kidney transplant currently on im munosuppressant agents including prednisone,Envarsus cyclosporine and mycophenolate did continue 3. Hypokalemia ? Corrected per protocol 4. Hypomagnesemia ? Corrected per protocol 5. Diabetes mellitus type 2 ? Uncontrolled with hyperglycemia patient is on long-acting insulin dose adjusted scheduled Premeal short acting insulin added to her regimen 6. Hypertension - Blood pressure controlled, home medications continued with dose adjustment as needed 7. Dyslipidemia -Patient is on statin therapy, continued at home dose 8. DVT prophylaxis ? SC Lovenox Physical Exam Narrative GENERAL: cooperative HEENT: Atraumatic; EYES; Anicteric, Normal Conjunctiva NECK; supple, normal thyroid, RESPIRATORY: Diminished to auscultation CARDIOVASCULAR: Regular S1 S2, GI: soft, normoactive bowel sounds, : No Renal angle tenderness; EXTREMITIES: Left foot in dressing wound not exposed but pictures reviewed MUSCULOSKELETAL: no muscle wasting NEURO: Awake; no lateralizing signs. SKIN: No Rash PSYCH; Flat affect Weight / BMI Weight Weight: 93.4 kg Body Mass Index (BMI) 29.5 ABG / Lab / Microbiology Data Result Diagrams: 04/10/22 04:41 04/10/22 04:41 Laboratory: Laboratory Results - last 24 hr 04/09/22 16:29: Vancomycin Trough 15.2 H 04/10/22 04:41: WBC 11.6 H, RBC 4.99, Hgb 13.7, Hct 43.9, MCV 88.0, MCH 27.5, MCHC 31.2 L, RDW Std Deviation 42.7, RDW Coeff of Carmina 13.3, Plt Count 251, MPV 9.5, Immature Gran % (Auto) 0.900, Neut % (Auto) 79.6 H, Lymph % (Auto) 9.6 L, M rdead % (Auto) 8.7, Eos % (Auto) 0.6, Baso % (Auto) 0.6, Absolute Neuts (auto) 9.2 H, Absolute Lymphs (auto) 1.11, Nucleated RBC % 0 04/10/22 04:41: Sodium 139, Potassium 4.4, Chloride 110 H, Carbon Dioxide 21.0, Anion Gap 8, BUN 34 H, Creatinine 1.94 H, Estim Creat Clear Calc 42.33, Est GFR (MDRD) Af Amer 46 L, Est GFR (MDRD) Non-Af 38 L, BUN/Creatinine Ratio 17.5, Glucose 126 H, Calcium 9.1 Microbiology: Microbiology 04/08/22 11:50 Wound - Toe Wound Culture - Final Streptococcus group G 04/08/22 11:50 Wound - Toe Anaerobic Culture - Preliminary Radiography Diagnostic Testing: Radiology Impression Extremity Arterial Study 04/08/22 11:47 Interpretation Summary Triphasic Doppler waveforms are noted at ankle level bilaterally. Pulse-volume recordings appear satisfactory at all levels bilaterally. The resting right ankle-brachial index could not be determined due to the non-compressibility of the vasculature at ankle level on the right. The resting left ankle-brachial index is normal. Digital-brachial indices are normal bilaterally. There is evidence of arterial calcification at ankle level on the right. There is no evidence of significant arterial occlusive disease in the lower extremities bilaterally. Ordering Physician: Jarad Brand Performed By: Fercho Webber RVT D/C Instructions Discharge Diet: No restrictions Discharge Activity: Return to Normal Activity Call your doctor if you observe: Fever of 101 or Higher, Shortness of breath, Fainting spells and Chest pain Meaningful Use Info Meaningful Use Diagnoses (Choose all that apply): None applicable Discharge Plan Admission Admit Date/Time: 04/08/22 17:46 Attending Provider: Jhon Turpin Primary Care Provider: Marques Casanova Consulting Providers: Jarad Brand ; Moriah Aldridge ; Pedro Echeverria Instructions Additional Instructions / Restrictions: Wash foot with soap and water. Avoid soaking. Change dressing to left great toe daily with hydrogel and gauze. Heel weight-bear to left foot with a surgical shoe in place to keep pressure off of the ulcer site. Discharge Orders/Prescriptions Prescriptions: New amoxicillin-pot clavulanate 875-125 mg tablet 1 tab PO BID Qty: 14 RF: 0 Continued carvedilol [Coreg] 6.25 mg tablet 12.5 mg PO DAILY RF: 0 prednisone 10 mg tablet 7.5 mg PO DAILY RF: 0 citalopram 40 MG tablet 40 mg PO DAILY RF: 0 atorvastatin 10 MG tablet 10 mg PO DAILY RF: 0 insulin lispro 100 UNIT/ML cartridge See Protocol unit SQ PRN PRN (Reason: Blood sugar) RF: 0 levothyroxine 175 MCG tablet 175 mcg PO DAILY RF: 0 pantoprazole 40 MG tablet 40 mg PO DAILY RF: 0 hydralazine 25 mg Tablet 25 mg PO BID RF: 0 calcitriol 0.25 mcg Capsule 0.25 mcg PO DAILY RF: 0 mycophenolate sodium 180 mg Tablet,Delayed Release (Dr/Ec) 360 mg PO BID RF: 0 Envarsus XR 0.75 mg PO/SL DAILY RF: 0 Trulicity 0.75 mg/0.5 mL pen injector 0.75 mg subcut QWEEK Qty: 6 RF: 0 (DME) FreeStyle Javed 2 Sensor Kit See Rx Instructions .ROUTE .MEDSUPPLY Qty: 2 RF: 6 (DME) FreeStyle Javed 2 [place] Misc See Rx Instructions .ROUTE .MEDSUPPLY Qty: 1 RF: 0 (DME) True Metrix Glucose Test Strip Strip See Rx Instructions .ROUTE .MEDSUPPLY Qty: 120 RF: 6 Referrals / Follow Up: Melissa Wellington DPM [STAFF PHYSICIAN] - In 1 Week ([facility] at [facility]. Call to schedule at [phone].) Marques Casanova MD [Primary Care Provider] - In 1 Week Disposition Disposition (needs filled in before D/C Order can be placed): Home, Self Care Charges/Coding Visit Charges Inpatient E&M: 84377 Disch Hosp
[2022-04-10 12:58] VITALS: BP 145/96; PULSE 77; RESP 18; TEMP 37; O2SAT 98
== END 2022-04-10 12:30 | disposition home or self-care (01) | DRG 623 ==
LOC: ED 17:04 → MS3 17:57
PROVIDERS: Internal Medicine; Podiatrist; Admitting Provider Hospitalist; Emergency Provider Emergency Medicine; PCP Family Medicine; Visit Provider Internal Medicine
DX: E11.621 Type 2 diabetes mellitus with foot ulcer (principal); L03.116 Cellulitis of left lower limb; I13.0 Hypertensive heart and chronic kidney disease with heart failure and stage 1 through stage 4 chronic kidney disease, or unspecified chronic kidney disease; I42.0 Dilated cardiomyopathy; I50.22 Chronic systolic (congestive) heart failure; Z94.0 Kidney transplant status; E11.22 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 diabetic chronic kidney disease; L97.522 Non-pressure chronic ulcer of other part of left foot with fat layer exposed; Z79.4 Long term (current) use of insulin; E11.40 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 diabetic neuropathy, unspecified; N18.32 Chronic kidney disease, stage 3b; E78.5 Hyperlipidemia, unspecified; E87.6 Hypokalemia; E83.42 Hypomagnesemia; E03.9 Hypothyroidism, unspecified; G47.33 Obstructive sleep apnea (adult) (pediatric); Z79.890 Hormone replacement therapy; Z79.52 Long term (current) use of systemic steroids; Z79.899 Other long term (current) drug therapy; Z87.891 Personal history of nicotine dependence
CPT/HCPCS: 36415; 73630; 80048; 80053; 80076; 80202; 82962; 83605; 83735; 85025; 87070; 87075; 87077; 87205; 87640; 93923; 97802; 99284; J7030; J7040; J7050; A4216; J0295

== ENCOUNTER 2022-04-24 10:15 | Outpatient (RCR) | payer MEDICARE, SELFPAY ==
[2022-04-17 10:04] VITALS: BP 143/76; PULSE 62; RESP 16; TEMP 36.1; BMI 30.1
--- NOTE | 2022-04-17 11:48 | HP.PCM_ITS ---
History of Present Illness Date of Service: 04/17/22 Progress of Wound: This 61-year-old male presents to clinic after recently being discharged from the hospital for a left hallux wound. Patient is a type II diabetic with previous end-stage renal disease which was treated with a renal transplant. Patient does note recent A1c of 8.9 and notes that he is attempting to better control his blood sugar. Patient denies any constitutional symptoms at this time and has been taking Augmentin for a left hallux cellulitis. Patient has been wearing a surgical shoe and attempting heel weightbearing, but has continued working at his daily job at [employer]. He notes some resolution of his redness and swelling to the wound site and denies any other complaints at this time. [facility] Medical History (Updated 04/17/22 @ 11:[address] Santo Esparza DPM) Acute respiratory failure Acute respiratory failure with hypoxia Anemia Chronic systolic (congestive) heart failure Congestive heart failure (CHF) Cough with hemoptysis CPAP (continuous positive airway pressure) dependence Diffuse pulmonary alveolar hemorrhage Dilated cardiomyopathy End stage renal disease on dialysis Healthcare-associated pneumonia Hemoptysis History of immunosuppression therapy Hyperlipidemia Hypertension Hypothyroidism Kidney disease Left ventricular hypertrophy Lymphadenopathy DAVID (obstructive sleep apnea) Problem with dialysis access Sinus bradycardia Sleep apnea Type II diabetes mellitus Gee's granulomatosis with renal involvement Home Medications atorvastatin 10 mg PO DAILY 01/19/19 [History Last Taken 02/04/19] citalopram 40 mg PO DAILY 01/19/19 [History Last Taken 02/04/19] carvedilol 6.25 mg tablet 12.5 mg PO DAILY 01/27/19 [History Last Taken 05/29/19] insulin lispro See Protocol SQ PRN PRN 05/29/19 [History Last Taken Unknown] levothyroxine 175 mcg PO DAILY 10/15/20 [History Last Taken Unknown] pantoprazole 40 mg PO DAILY 10/15/20 [History Last Taken Unknown] Trulicity 0.75 mg/0.5 mL subcutaneous pen injector 0.75 mg SUBCUT QWEEK #6 ml NS 03/01/22 [Rx Last Taken Unknown] flash glucose scanning reader #1 ea 03/08/22 [Rx Last Taken Unknown] flash glucose sensor #2 ea 03/08/22 [Rx Last Taken Unknown] blood sugar diagnostic #120 ea 03/12/22 [Rx Last Taken Unknown] prednisone 10 mg tablet 7.5 mg PO DAILY tab 04/05/22 [History Last Taken Unknown] Envarsus XR 0.75 mg PO/SL DAILY 04/07/22 [History Last Taken Unknown] calcitriol 0.25 mcg PO DAILY 04/07/22 [History Last Taken Unknown] hydralazine 25 mg PO BID 04/07/22 [History Last Taken Unknown] mycophenolate sodium 360 mg PO BID 04/07/22 [History Last Taken Unknown] amoxicillin-pot clavulanate 1 tab PO BID #14 tab 04/10/22 [Rx Last Taken Unknown] Allergy/AdvReac Type Severity Reaction Status Date / Time losartan Allergy Severe Hives Verified 04/17/22 10:16 epoetin beta [From Mircera] AdvReac back pain Verified 04/17/22 10:16 Family History Father CAD (coronary artery disease) Myocardial infarction, Onset Age: 56 Stented coronary artery Surgical History H/O hernia repair Presence of surgically created arteriovenous shunt for hemodialysis S/P arteriovenous (AV) fistula repair S/P nasal surgery Social History Smoking Status: Former smoker alcohol intake: never ROS Constitutional Constitutional: Denies change in weight, chills or daytime sleepiness Eyes Eyes: Denies acute decrease in peripheral vision, change in eye color or discongugate gaze ENT HEENT: Denies bleeding gums, change in voice or ear pain Cardiovascular Cardiovascular: Denies abdominal edema, abdominal pain or arrhythmia on telemetry Respiratory/Chest Respiratory/Chest: Denies change in mental status, change in phlegm color or difficulty clearing secretions Genitourinary Genitourinary: Denies abdominal discomfort, anuria or difficulty urinating Musculoskeletal Musculoskeletal: Denies arthralgias, atrophy or back pain Integumentary Integumentary: Denies bleeding lesions, change in hair or jaundice Neurologic Neurologic: Denies abnormal hearing, abnormal movements or convulsions Vital Signs Vital Signs Vital Signs: 04/17/22 10:04 Temperature 96.9 F L Temperature Source Temporal Pulse Rate 62 Respiratory Rate 16 Blood Pressure 143/76 H Blood Pressure Mean 98 Blood Pressure Source Monitor Blood Pressure Position Sitting Blood Pressure Location Right Forearm Oxygen Delivery Method Room Air Weight Weight: 95.254 kg Body Mass Index (BMI) 30.1 Physical Exam Narrative Patient is alert oriented to person place and time. Patient is ambulating in a surgical shoe to his left lower extremity. Normal shoe gear on the right side. Vascular: Dorsalis pedis and posterior tibial pulses palpable 2 out of 4 to bilateral lower extremity. Capillary fill time brisk to lesser digits. Digital hair growth noted. No atrophic skin changes noted. Resolving edema to the left foot. Some increased warmth the left hallux. Neurologic: Light touch protective sensation diminished bilateral feet. Dermatologic: Full-thickness ulceration to plantar medial left hallux IPJ. Mild periwound erythema and edema. No underlying fluctuance or crepitance deep probing. No undermining. Wound base granular pre and postdebridement. Pre and postdebridement measurements document nursing notes. Musculoskeletal: Left hallux rigidus deformity which is likely contributory to the left medial hallucal IPJ ulceration. Muscular strength full to bilateral lower extremity compartments. Debridement Note Debridement Note Post-Debridement Measurements and Additional Note: Post-Debridement Measurements/Treatment - Nurse 1 - General Ulcer Assessment Start: 04/17/22 10:00 Freq: Status: Active Protocol: [email or web address] Activity Type Activity Date Activity User E-Sign Co-Sign Detail Recorded Client Recorded Date Recorded By Document 04/17/22 10:04 [facility] [id number] 04/17/22 10:15 [facility] 04/17/22 10:04 - Today's Visit Information Type of service Initial Visit Arrival Mode Ambulatory Transfer Assistance None Accompanied by Patient Identification Verified (Name & Yes ) Patient Requires Transmission-Based No Precautions Finger Stick Blood Sugar(mg/dl) (if 111 indicated): Blood Sugar Stated by Patient Height and Weight Height 5 ft 10 in Weight 95.254 kg Weight in Pounds 210.0 lbs Body Mass Index (BMI) 30.1 BMI Classification Obese BSA - Jesse 2.13 Vital Signs Temperature (97.8 F-99.1 F) 96.9 F L Temperature Source Temporal Pulse Rate (60-100) 62 Pulse Location Monitor Respiratory Rate (12-18) 16 Respiratory rate source Observation Oxygen Delivery Method Room Air Blood Pressure (90/60-120/80) 143/76 H Blood Pressure Mean 98 Source Monitor Position Sitting Blood Pressure Location Right Forearm History Since Last Visit- (Skip if this is Patient's initial visit) Left Footwear Surgical Shoe with pressure relief insole Right Footwear Regular Shoe Pain Scale: 0-10 Numeric Is Patient Pain Free? Yes Lower Extremity Assessment/ Foot Assessment/ Toe Nail Assessment Right -Lower Extremity Comment (If N/A Above PT HAD ) ARTERIALS LAST WEEK Left -Lower Extremity Comment (If N/A Above PT HAD ) ARTERIALS LAST WEEK Neuropathy Assessment Feet - Top Side and Bottom <Entered> (a) Communication Assessment Preferred language Fijian Help Desk Operator Required No Able to Read Yes Able to Write Yes Communication Tools None Right Hearing Abillity Normal Left Hearing Abillity Normal Visual Assistive Devices Glasses Teaching Assessment Preferences Verbal,Written, Audio/Visual, Demonstration Barriers to Learning None Readiness To Learn Excellent Willingness to Engage in Self Management High Activies Readiness to Engage in Self Management High Activities Anxiety Level Calm Cooperation Cooperative Perception Coherent Interest in Health Problem Asks Questions Education Importance Acknowledges Need Does Patient Smoke tobacco or other No substances Smoking Status Former smoker Is Patient Diabetic Yes Functional Assessment Recent Decline in Ability to Perform Denies Any Declines Culture/Baptism/Special Inspector Cultural/Baptism Needs that may affect No Treatment Plan Teaching: Wound Center *Welcome to the Wound Center -Person Taught Patient, Significant Other -Teaching Method Discussion -Response to teaching Verbalize understanding Welcome to the Wound Care Center Fijian (a) 1 - + - Nurse 1 - General Ulcer Measurement Start: 04/17/22 10:00 Freq: Status: Active Protocol: Activity Type Activity Date Activity User E-Sign Co-Sign Detail Recorded Client Recorded Date Recorded By Document 04/17/22 10:04 [facility] [id number] 04/17/22 10:15 [facility] 04/17/22 10:04 Wound Center Nurse 1 #1- L GR TOE -Combined with other wound No -Current Size (cm) - Length 0.3 -Current Size (cm) - Width 0.4 -Current Size (cm) - Depth 0.3 -Total Square Cm 0.12 -Date of Last Picture (Recall this 04/17/22 field) -Photo Taken Yes -Epithelialization None Present -Tunneling No -Undermining/Tunneling Yes -Undermining/Tunneling Starts (O'clock 12 ) -Undermining/Tunneling Ends (O'clock) 1 -Maximum Distance (cm) 0.2 -Circular Undermining No -Exudate Amt Small -Exudate Type Serous -Wound Margin Distinct, Outline Attached -Granulation Amt Small (1-33%) -Granulation Quality [place] -Slough/Fibrin Yes -Necrosis Amt Medium (34-66%) -Necrotic Tissue Type Adherent Slough -Texture (Angie-wound Skin Appearance) Assessed,Callus ,Scarring -Moisture (Angie-wound Skin Appearance) Assessed -Color (Angie-wound Skin Appearance) Assessed -Temperature (Angie-wound Skin No Abnormality Appearance) (Pt Warm) -Tenderness on Palpation (Angie-wound No Skin Appearance) -Ulcer Cleansing Rinsed/ Irrigated with Saline -Foul Odor after Cleansing No -Anesthetic Used 5% Lidocaine Gel Lower Limb Edema Present No Right Calf (cm) 33.8 Right Ankle (cm) 21.7 Left Calf (cm) 34 Left Ankle (cm) 21.3 WC - Nurse 2 - General Ulcer CM Notes Start: 04/17/22 10:00 Freq: Status: Active Protocol: Activity Type Activity Date Activity User E-Sign Co-Sign Detail Recorded Client Recorded Date Recorded By Document 04/17/22 10:37 [id number] 04/17/22 10:53 04/17/22 10:37 Wound Center Nurse 2 #1- L GR TOE -Time 10:52 -Correct Patient Yes -Correct Side, Site, Position Yes -Correct Procedure Yes -Procedure Performed Yes -Type of Procedure Debridement -Clinical Debridement Subcutaneous -Tissue Removed Subcutaneous -Post Debridement (cm) - Length 0.3 -Post Debridement (cm) - Width 0.6 -Post Debridement (cm) - Depth 0.2 -Total Square (Post) (cm) 0.18 -Area of Debridement (cm) - Length 0.3 -Area of Debridement (cm) - Width 0.6 -Total Square (Area) (cm) 0.18 -Tunneling No -Undermining/Tunneling No -Circular Undermining No -Wound/Ulcer Outcome Not Healed -Ulcer Cleansing Rinsed/ Irrigated with Saline -Foul Odor after Cleansing No -Bioengineered Tissue No -Bleeding Controlled with Pressure -Treatment Response Procedure Tolerated Well -Offloading Yes -Type of Offloading Surgical Shoe -Debridement - Subq, 1st 20sq cm Yes Pain Scale: 0-10 Numeric Is Patient Pain Free? Yes WC - Nurse 3 - General Ulcer D/C NN Start: 04/17/22 10:00 Freq: Status: Active Protocol: Activity Type Activity Date Activity User E-Sign Co-Sign Detail Recorded Client Recorded Date Recorded By Document 04/17/22 10:53 [facility]AD [id number] 04/17/22 10:54 [facility] 04/17/22 10:53 Wound Care Nurse 3 #1- L GR TOE -Ulcer Cleansing Rinsed/ Irrigated with Saline -Foul Odor after Cleansing No -Primary Dressing Applied C Hydrogel ($) -Primary Dressing Covered/Secured with Dry Gauze, Secured with Tape Pain Scale: 0-10 Numeric Is Patient Pain Free? Yes WC - Visit Discharge Discharge Condition Stable Ambulatory Status Ambulatory Transportation Private Auto Medication Reconcilliation completed & Yes provided to patient/care provider Clinical Summary of Care Provided Yes Assessment/Plan Assessment/Plan (1) 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 diabetic polyneuropathy: CODE(S): E11.42 - 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 diabetic polyneuropathy QUALIFIERS: Diabetes mellitus watermaster insulin use: unspecified half-way insulin use status Qualified Code(s): E11.42 - 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 diabetic polyneuropathy (2) Non-pressure chronic ulcer of other part of left foot with fat layer exposed: CODE(S): L97.522 - Non-pressure chronic ulcer of other part of left foot with fat layer exposed PLAN: Patient examined evaluated, all findings cussed patient detail. Patient was discharged from the hospital 1 week prior and placed on p.o. Augmentin 875 twice daily for a group B strep infection being managed by infectious disease. His last white count was 11.6. Patient has low albumin levels at 2.2, but we will avoid any aggressive nutritional supplementation as to not overload his renal transplant. Patient has elevated BUN and creatinine likely related to transplant. Wound appears red swollen edematous at this point, this is improved per patient and his . I recommend continuation of his Augmentin for an additional week we will order this. His previous vascular studies and x-rays were reviewed. TBI's on the left side were 0.91 and on the right side 0.75 indicative of good blood flow. X-rays were negative of any obvious signs of bone infection. Wound was excisionally debrided down to including level of subcutaneous tissue of all nonviable tissue using a 15 blade and pickups. Pre and postdebridement measurements document nursing notes. Hemostasis obtained with light c ompression. Patient tolerated procedure well. State no anesthesia used due to neuropathy. This was performed aseptically. Wounds will continue to be cleansed with soap and water washes drying and a pplication of hydrogel 4 x 4 and tape We will increase the patient's offloading status I have created a offloading pad for the hallux he will continue with surgical shoe over the next week. I recommended discontinuing working to the patient patient deferred at this time. I did discuss performing an elective arthroplasty of the hallux IPJ to to allow healing of the wound as well as prevent recurrence in the future, patient defers at this time. Upon follow-up we will consider total contact casting, MRI, advanced wound care products or surgical intervention upon follow-up if there are any delays in healing. Follow-up in 1 week. More than 30 minutes was spent managing the case both [id number] and [id number] contact
[2022-04-24 10:20] VITALS: BP 119/75; PULSE 74; TEMP 36.1; BMI 30.1
--- NOTE | 2022-04-24 10:46 | PCM.WC.PN ---
History of Present Illness Date of Service: 04/24/22 Progress of Wound: This 61-year-old male presents to clinic after recently being discharged from the hospital for a left hallux wound. Patient is a type II diabetic with previous end-stage renal disease which was treated with a renal transplant. Patient does note recent A1c of 8.9 and notes that he is attempting to better control his blood sugar. Patient denies any constitutional symptoms at this time and has been taking Augmentin for a left hallux cellulitis. Patient has been wearing a surgical shoe and attempting heel weightbearing, but has continued working at his daily job at [employer]. Patient has been taking Augmentin and notes continued resolution of his left great toe infection. Objective Data Objective Data Vital Signs: Vital Signs Temp Pulse Resp BP 97.0 F L 74 16 119/75 04/24/22 10:20 04/24/22 10:20 04/17/22 10:04 04/24/22 10:20 Oxygen Delivery Method Room Air Weight: 95.254 kg Body Mass Index (BMI) 30.1 Physical Exam Narrative Patient is alert oriented to person place and time. Patient is ambulating in a surgical shoe to his left lower extremity. Normal shoe gear on the right side. Vascular: Dorsalis pedis and posterior tibial pulses palpable 2 out of 4 to bilateral lower extremity. Capillary fill time brisk to lesser digits. Digital hair growth noted. No atrophic skin changes noted. Resolving edema to the left foot. Some increased warmth the left hallux. Neurologic: Light touch protective sensation diminished bilateral feet. Dermatologic: Full-thickness ulceration to plantar medial left hallux IPJ. Mild periwound erythema and edema. No underlying fluctuance or crepitance deep probing. No undermining. Wound base granular pre and postdebridement. Pre and postdebridement measurements document nursing notes. Musculoskeletal: Left hallux rigidus deformity which is likely contributory to the left medial hallucal IPJ ulceration. Muscular strength full to bilateral lower extremity compartments. Debridement Note Debridement Note Post-Debridement Measurements and Additional Note: Post-Debridement Measurements/Treatment WC - Nurse 1 - General Ulcer Assessment Start: 04/17/22 10:00 Freq: Status: Active Protocol: OLIVIER.LOWEXT Activity Type Activity Date Activity User E-Sign Co-Sign Detail Recorded Client Recorded Date Recorded By Document 04/17/22 10:04 [facility] [id number] 04/17/22 10:15 BMF Document 04/24/22 10:20 KR [id number] 04/24/22 10:21 KR 04/17/22 04/24/22 10:04 10:20 WC - Today's Visit Information Type of service Initial Visit Follow-up Visit (Physician/CENTER CUSTOMER SERVICE ASSOCIATE ) Arrival Mode Ambulatory Ambulatory Transfer Assistance None Accompanied by Patient Identification Verified (Name & Yes Yes ) Patient Requires Transmission-Based No Precautions Finger Stick Blood Sugar(mg/dl) (if 111 indicated): Blood Sugar Stated by Patient Height and Weight Height 5 ft 10 in Weight 95.254 kg Weight in Pounds 210.0 lbs Body Mass Index (BMI) 30.1 30.1 BMI Classification Obese Obese BSA - Jesse 2.13 Vital Signs Temperature (97.8 F-99.1 F) 96.9 F L 97.0 F L Temperature Source Temporal Temporal Pulse Rate (60-100) 62 74 Pulse Location Monitor Monitor Respiratory Rate (12-18) 16 Respiratory rate source Observation Oxygen Delivery Method Room Air Blood Pressure (90/60-120/80) 143/76 H 119/75 Blood Pressure Mean (mm Hg) 98 89 Source Monitor Monitor Position Sitting Semi-Fowlers Blood Pressure Location Right Forearm Left Arm Have you changed medications since your No last visit? Any new allergies or adverse reactions No Had a fall/change in ADL's that may No increase risk of falls Signs or symptoms of abuse and/or No neglect since last visit Have you been in the hospital since your No last visit? Has dressing in place as prescribed Yes Has compression in place as prescribed Yes Has offloadiing in place as prescribed Yes Experienced any changes in pain level or No management History Since Last Visit- (Skip if this is Patient's initial visit) Left Footwear Surgical Shoe with pressure relief insole Right Footwear Regular Shoe Pain Scale: 0-10 Numeric Is Patient Pain Free? Yes Yes Lower Extremity Assessment/ Foot Assessment/ Toe Nail Assessment Right -Lower Extremity Comment (If N/A Above PT HAD ) ARTERIALS LAST WEEK Left -Lower Extremity Comment (If N/A Above PT HAD ) ARTERIALS LAST WEEK Neuropathy Assessment Feet - Top Side and Bottom <Entered> (a) Communication Assessment Preferred language [place] Last Turner Required No Able to Read Yes Able to Write Yes Communication Tools None Right Hearing Abillity Normal Left Hearing Abillity Normal Visual Assistive Devices Glasses Teaching Assessment Preferences Verbal,Written, Audio/Visual, Demonstration Barriers to Learning None Readiness To Learn Excellent Willingness to Engage in Self Management High Activies Readiness to Engage in Self Management High Activities Anxiety Level Calm Cooperation Cooperative Perception Coherent Interest in Health Problem Asks Questions Education Importance Acknowledges Need Does Patient Smoke tobacco or other No substances Smoking Status Former smoker Is Patient Diabetic Yes Functional Assessment Recent Decline in Ability to Perform Denies Any Declines 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 Cultural/[place] Needs that may affect No Treatment Plan Teaching: Wound Center *Welcome to the Wound Center -Person Taught Patient, Significant Other -Teaching Method Discussion -Response to teaching Verbalize understanding Welcome to the Wound Care Center [place]ian (a) 1 - + WC - Nurse 1 - General Ulcer Measurement Start: 04/17/22 10:00 Freq: Status: Active Protocol: Activity Type Activity Date Activity User E-Sign Co-Sign Detail Recorded Client Recorded Date Recorded By Document 04/17/22 10:04 [facility] [id number] 04/17/22 10:15 [facility] Document 04/24/22 10:20 [id number] 04/24/22 10:21 KR 04/17/22 04/24/22 10:04 10:20 Wound Center Nurse 1 #1- L GR TOE -Combined with other wound No -Current Size (cm) - Length 0.3 0.5 -Current Size (cm) - Width 0.4 0.6 -Current Size (cm) - Depth 0.3 0.1 -Total Square Cm 0.12 0.30 -Date of Last Picture (Recall this 04/17/22 field) -Photo Taken Yes -Epithelialization None Present -Tunneling No -Undermining/Tunneling Yes -Undermining/Tunneling Starts (O'clock 12 ) -Undermining/Tunneling Ends (O'clock) 1 -Maximum Distance (cm) 0.2 -Circular Undermining No -Exudate Amt Small None Present -Exudate Type Serous -Wound Margin Distinct, Distinct, Outline Outline Attached Attached -Granulation Amt Small (1-33%) Small (1-33%) -Granulation Quality [place] -Slough/Fibrin Yes -Necrosis Amt Medium (34-66%) None Present (0 %) -Necrotic Tissue Type Adherent Slough -Texture (Angie-wound Skin Appearance) Assessed,Callus Assessed, ,Scarring Scarring -Moisture (Angie-wound Skin Appearance) Assessed No Abnormality, Assessed -Color (Angie-wound Skin Appearance) Assessed No Abnormality, Assessed -Temperature (Angie-wound Skin No Abnormality No Abnormality Appearance) (Pt Warm) (Pt Warm) -Tenderness on Palpation (Angie-wound No No Skin Appearance) -Ulcer Cleansing Rinsed/ Rinsed/ Irrigated with Irrigated with Saline Saline -Foul Odor after Cleansing No No -Anesthetic Used 5% Lidocaine 5% Lidocaine Gel Gel Lower Limb Edema Present No Right Calf (cm) 33.8 Right Ankle (cm) 21.7 Left Calf (cm) 34 Left Ankle (cm) 21.3 WC - Nurse 2 - General Ulcer CM Notes Start: 04/17/22 10:00 Freq: Status: Active Protocol: Activity Type Activity Date Activity User E-Sign Co-Sign Detail Recorded Client Recorded Date Recorded By Document 04/17/22 10:37 [id number] 04/17/22 10:53 Document 04/24/22 10:42 [id number] 04/24/22 10:46 04/17/22 04/24/22 10:37 10:42 Wound Center Nurse 2 #1- L GR TOE -Time 10:52 10:43 -Correct Patient Yes Yes -Correct Side, Site, Position Yes Yes -Correct Procedure Yes Yes -Procedure Performed Yes Yes -Type of Procedure Debridement Debridement -Clinical Debridement Subcutaneous Subcutaneous -Tissue Removed Subcutaneous Subcutaneous -Post Debridement (cm) - Length 0.3 0.2 -Post Debridement (cm) - Width 0.6 0.8 -Post Debridement (cm) - Depth 0.2 0.1 -Total Square (Post) (cm) 0.18 0.16 -Area of Debridement (cm) - Length 0.3 0.2 -Area of Debridement (cm) - Width 0.6 0.8 -Total Square (Area) (cm) 0.18 0.16 -Tunneling No No -Undermining/Tunneling No No -Circular Undermining No No -Wound/Ulcer Outcome Not Healed Not Healed -Ulcer Cleansing Rinsed/ Rinsed/ Irrigated with Irrigated with Saline Saline -Foul Odor after Cleansing No No -Bioengineered Tissue No No -Bleeding Controlled with Pressure Pressure -Treatment Response Procedure Procedure Tolerated Well Tolerated Well -Offloading Yes Yes -Type of Offloading Surgical Shoe Surgical Shoe -Debridement - Subq, 1st 20sq cm Yes Yes Pain Scale: 0-10 Numeric Is Patient Pain Free? Yes Yes - Nurse 3 - General Ulcer D/C NN Start: 04/17/22 10:00 Freq: Status: Active Protocol: Activity Type Activity Date Activity User E-Sign Co-Sign Detail Recorded Client Recorded Date Recorded By Document 04/17/22 10:53 [id number] 04/17/22 10:54 SAAD 04/17/22 10:53 Wound Care Nurse 3 #1- L GR TOE -Ulcer Cleansing Rinsed/ Irrigated with Saline -Foul Odor after Cleansing No -Primary Dressing Applied C Hydrogel ($) -Primary Dressing Covered/Secured with Dry Gauze, Secured with Tape Pain Scale: 0-10 Numeric Is Patient Pain Free? Yes WC - Visit Discharge Discharge Condition Stable Ambulatory Status Ambulatory Transportation Private Auto Medication Reconcilliation completed & Yes provided to patient/care provider Clinical Summary of Care Provided Yes Assessment/Plan Assessment/Plan (1) 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 diabetic polyneuropathy: CODE(S): E11.42 - 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 diabetic polyneuropathy QUALIFIERS: Diabetes mellitus usp insulin use: unspecified watermelon inspector insulin use status Qualified Code(s): E11.42 - 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 diabetic polyneuropathy (2) Non-pressure chronic ulcer of other part of left foot with fat layer exposed: CODE(S): L97.522 - Non-pressure chronic ulcer of other part of left foot with fat layer exposed PLAN: Patient examined evaluated, all findings cussed patient detail. Patient will complete course of Augmentin, if there is any residual signs of infection will refer back to infectious disease. Patient is instructed to contact us or present to the ED if he notes any worsening of his left foot infection. Wound significantly improving today erythema edema warmth improved as well.. His previous vascular studies and x-rays were reviewed. TBI's on the left side were 0.91 and on the right side 0.75 indicative of good blood flow. X-rays were negative of any obvious signs of bone infection. Left hallux wound was excisionally debrided down to including level of subcutaneous tissue of all nonviable tissue using a 15 blade and pickups. Pre and postdebridement measurements document nursing notes. Hemostasis obtained with light compression. Patient tolerated procedure well. State no anesthesia used due to neuropathy. This was performed aseptically. Wounds will continue to be cleansed with soap and water washes drying and application of hydrogel 4 x 4 and tape We will increase the patient's offloading status I have created a offloading pad for the hallux he will continue with surgical shoe over the next week. I recommended discontinuing working to the patient patient deferred at this time. I did discuss performing an elective arthroplasty of the hallux IPJ to to allow healing of the wound as well as prevent recurrence in the future, patient defers at this time. Patient offloading site with surgical shoe and hallux offloading pad. Upon follow-up we will consider total contact casting, MRI, advanced wound care products or surgical intervention upon follow-up if there are any delays in healing. Follow-up in 1 week. Continue current treatment.
== END 2022-04-24 23:59 | disposition home or self-care (01) ==
LOC: WC 10:15
PROVIDERS: PCP Family Medicine; Visit Provider Podiatrist
DX: E11.621 Type 2 diabetes mellitus with foot ulcer (principal); L97.522 Non-pressure chronic ulcer of other part of left foot with fat layer exposed; I11.0 Hypertensive heart disease with heart failure; I42.0 Dilated cardiomyopathy; I50.22 Chronic systolic (congestive) heart failure; E11.42 Type 2 diabetes mellitus with diabetic polyneuropathy; Z79.4 Long term (current) use of insulin; E78.5 Hyperlipidemia, unspecified; Z87.891 Personal history of nicotine dependence; Z79.899 Other long term (current) drug therapy; Z79.52 Long term (current) use of systemic steroids; Z94.0 Kidney transplant status; L03.032 Cellulitis of left toe
CPT/HCPCS: 11042; 99213; G0463

== ENCOUNTER 2022-05-02 07:14 | Outpatient (RCR) | payer MEDICARE, SELFPAY ==
[2022-02-23 02:31] VITALS: BMI 28.1
[2022-05-02 09:04] LABS: Erythrocyte Sedimentation Rate 16 mm/hr (0-20)
[2022-05-02 09:09] LABS: Absolute Lymphocyte Count 0.92 X10^3/uL (0.83-4.51); Absolute Neutrophil Count 9.4 X10^3/uL (2.0-7.7); Basophil# 0.04 X10^3/uL; Basophil% 0.3 % (0-1); Eosinophil# 0.12 X10^3/uL; Hematocrit 49.8 % (40-54); Hemoglobin 15.3 g/dL (13.0-16.5); Lymphocyte # 0.92 X10^3/ul (0.83-4.51); Mean Corp Hgb Conc 30.7 g/dL (32-36); Mean Platelet Vol. 10.3 fl (6.2-12.0); Monocyte# 0.96 X10^3/uL; Monocyte% 8.4 % (0-10); NRBC Flagged by Analyzer 0 % (0-5); Neutrophil # 9.36 X10^3/uL (2.7-7.7); Neutrophil % 81.8 % (47-70); Platelet Count 209 K/mm3 (150-450); RBC Distribution Width CV 13.5 % (11.6-14.6); RBC Distribution Width SD 43.3 fl (35.1-43.9); Red Blood Count 5.66 M/mm3 (4.6-6.2); White Blood Count 11.5 K/mm3 (4.4-11.0)
[2022-05-02 09:29] LABS: ALB/GLOB Ratio 1.1 RATIO (0.9-2.4); AST(SGOT) 8 U/L (15-37); Alanine Aminotransfer ALT/SGPT 19 U/L (16-61); Albumin, Serum 3.5 g/dL (3.2-5.0); Alkaline Phosphatase 96 U/L (45-117); Anion Gap 10 (5-15); BUN 47 mg/dL (7-18); BUN/Creat Ratio 22.1 RATIO (10-20); Chloride 105 mmol/L (98-107); Creatinine, Serum 2.13 mg/dL (0.70-1.30); EST Glomerular Filtration Rate 34 mL/min (>60); Est Glom Filt Rate - Afr Amer 41 mL/min (>60); Globulin 3.1 g/dL (2.2-4.2); Glucose 168 mg/dL (74-106); Potassium 3.2 mmol/L (3.5-5.1); Protein, Total 6.6 g/dL (6.4-8.2); Sodium Level 139 mmol/L (136-145)
[2022-05-07 19:24] LABS: Tacrolimus (FK506) 6.5 ng/mL (2.0-20.0)
== END 2022-05-02 23:59 | disposition home or self-care (01) ==
LOC: LAB 07:14
PROVIDERS: PCP Family Medicine
DX: L97.522 Non-pressure chronic ulcer of other part of left foot with fat layer exposed; Z94.0 Kidney transplant status; R79.9 Abnormal finding of blood chemistry, unspecified; Z09 Encounter for follow-up examination after completed treatment for conditions other than malignant neoplasm; B17.10 Acute hepatitis C without hepatic coma; D84.9 Immunodeficiency, unspecified; Z79.899 Other long term (current) drug therapy; D50.0 Iron deficiency anemia secondary to blood loss (chronic); Z48.298 Encounter for aftercare following other organ transplant; R68.89 Other general symptoms and signs
CPT/HCPCS: 36415; 80053; 80197; 85025; 85652; 86140

== ENCOUNTER 2022-05-02 11:20 | Observation (INO) | payer MEDICARE, SELFPAY ==
[2022-05-02 11:21] VITALS: BP 141/87; PULSE 70; RESP 16; TEMP 36.4; O2SAT 99; BMI 30.1
--- NOTE | 2022-05-02 11:40 | RAD_ITS ---
STUDY: X-RAY - LEFT FOOT CLINICAL: Male, 61 years old. Great toe pain TECHNIQUE: 3 view(s) of the foot. COMPARISON: None. FINDINGS: There is an enthesophyte involving the posterior superior calcaneus at the site of insertion of the Achilles tendon. Normal visualized subtalar, talonavicular, calcaneocuboid, tarsal and tarsometatarsal articulations. Normal metatarsi. Normal metatarsophalangeal joint of the great toe. Normal tibial and fibular sesamoid bones. Normal interphalangeal joint of the great toe. Normal phalanges of the great toe. Normal second through fifth metatarsophalangeal joints. Normal interphalangeal joints and phalanges of the lesser toes. Soft tissue swelling overlying the great toe. Prostate calcification. RAD/Foot min 3 Views IMPRESSION: Soft tissue swelling of the great toe. Vascular calcification. Electronically Signed: Godwin Palmer MD at 13:15 EDT ,
--- NOTE | 2022-05-02 11:44 | EX.ED.DYSGE1 ---
HPI <TAMEKA Nickerson - Last Filed: 05/02/22 13:32> History of Present Illness Chief Complaint: Wound Check Narrative Narrative: 61-year-old male with history of type 2 diabetes, 2 years ago renal transplant presents to the emergency department with concern for infection to his left great toe. Patient was admitted 1 month ago for a wound on his left great toe and has been seeing Dr. Esparza in the wound center. Patient's toe became more red swollen, he followed up at the wound center, yesterday, they put him on Augmentin he has not taken any antibiotics yet. He states this morning he was scheduled for a x-ray however he is here for an x-ray as well as to discuss his blood work that was also done this morning. He denies any fevers or chills. States he does have pain with walking and palpation. PFSH <TAMEKA Nickerson - Last Filed: 05/02/22 13:32> [facility] Medical History Acute respiratory failure Acute respiratory failure with hypoxia Anemia Chronic systolic (congestive) heart failure Congestive heart failure (CHF) Cough with hemoptysis CPAP (continuous positive airway pressure) dependence Diffuse pulmonary alveolar hemorrhage Dilated cardiomyopathy End stage renal disease on dialysis Healthcare-associated pneumonia Hemoptysis History of immunosuppression therapy Hyperlipidemia Hypertension Hypothyroidism Kidney disease Left ventricular hypertrophy Lymphadenopathy DAVID (obstructive sleep apnea) Problem with dialysis access Sinus bradycardia Sleep apnea Type II diabetes mellitus Gee's granulomatosis with renal involvement Home Medications atorvastatin 10 mg PO DAILY 01/19/19 [History Last Taken 02/04/19] citalopram 40 mg PO DAILY 01/19/19 [History Last Taken 02/04/19] carvedilol 6.25 mg tablet 12.5 mg PO DAILY 01/27/19 [History Last Taken 05/29/19] insulin lispro See Protocol SQ PRN PRN 05/29/19 [History Last Taken Unknown] levothyroxine 175 mcg PO DAILY 10/15/20 [History Last Taken Unknown] pantoprazole 40 mg PO DAILY 10/15/20 [History Last Taken Unknown] Trulicity 0.75 mg/0.5 mL subcutaneous pen injector 0.75 mg SUBCUT QWEEK #6 ml NS 03/01/22 [Rx Last Taken Unknown] flash glucose scanning reader #1 ea 03/08/22 [Rx Last Taken Unknown] flash glucose sensor #2 ea 03/08/22 [Rx Last Taken Unknown] blood sugar diagnostic #120 ea 03/12/22 [Rx Last Taken Unknown] prednisone 10 mg tablet 7.5 mg PO DAILY tab 04/05/22 [History Last Taken Unknown] Envarsus XR 0.75 mg PO/SL DAILY 04/07/22 [History Last Taken Unknown] calcitriol 0.25 mcg PO DAILY 04/07/22 [History Last Taken Unknown] hydralazine 25 mg PO BID 04/07/22 [History Last Taken Unknown] mycophenolate sodium 360 mg PO BID 04/07/22 [History Last Taken Unknown] amoxicillin-pot clavulanate 1 tab PO BID #28 tab 05/01/22 [Rx Last Taken Unknown] Allergy/AdvReac Type Severity Reaction Status Date / Time losartan Allergy Severe Hives Verified 05/02/22 11:22 epoetin beta [From Mircera] AdvReac back pain Verified 05/02/22 11:22 Family History Father CAD (coronary artery disease) Myocardial infarction, Onset Age: 56 Stented coronary artery Surgical History H/O hernia repair Presence of surgically created arteriovenous shunt for hemodialysis S/P arteriovenous (AV) fistula repair S/P nasal surgery Social History Smoking Status: Former smoker alcohol intake: never ROS <TAMEKA Nickerson - Last Filed: 05/02/22 13:32> ROS ED ROS Narrative Constitutional: Negative for fever, chills, weight loss, weakness Eyes: Negative for vision loss, vision change, double vision ENT: Negative for any sore throat, ear pain, congestion Cardiovascular: Negative for any chest pain, tightness, palpitations Respiratory: Negative for any cough, sputum production, hemoptysis, dyspnea, dyspnea on exertion, orthopnea Gastrointestinal: Negative for any abdominal pain, nausea, vomiting, diarrhea, constipation, blood in stool, blood in vomit : Negative for any urinary frequency, dysuria, retention, blood in urine Muscle skeletal: Negative for any muscle joint pain, stiffness, myalgias, arthralgias, neck pain, back pain. Positive left great toe pain, redness, edema Neurological: Negative for any headache, syncope, numbness or tingling, dizziness Skin: Negative for any rashes, lumps, itching, abrasions, lacerations Psychiatric: Negative for any depression, anxiety, stress, suicidal ideation, homicidal ideation Hematologic: Negative for any easy bruising, excessive bruising, easy bleeding Allergies: Negative for any eczema, hives, rash EXAM <TAMEKA Nickerson - Last Filed: 05/02/22 13:32> Physical Exam Narrative Exam Narrative: Vital signs reviewed. HEET: Head normocephalic atraumatic, TMs clear bilaterally. Posterior pharynx is clear, moist mucous membranes. Nares clear bilaterally. Neck: Supple with no lymphadenopathy or tenderness. No signs of meningismus, negative jolt sign. Cardiac: Regular rate and rhythm no murmurs gallops or rubs, equal peripheral pulses bilaterally. Respiratory: Lungs clear to auscultation bilaterally. No chest tenderness. Abdomen: Soft, nontender, nondistended. No abdominal bruit or pulsatile masses. No hepatosplenomegaly Extremities: Patient's left great toe is erythemic, warm to the touch, edematous. There is a wound on the plantar aspect however there is no drainage noted. Patient does have pain on palpation. +2 pedal pulse. No streaking up the foot. Neuro: Cranial nerves II through XII intact, no focal neurological deficits. Skin: Clean dry and intact with no rash, purpura, petechiae, vesicles or pustules. Backs/flank: No CVA tenderness, no midline spinal tenderness, no deformity. Psych: Normal mood and affect. No SI, HI or acute psychosis. Const Vital Signs: 05/02/22 11:21 Temperature 97.5 F L Temperature Source Temporal Pulse Rate 70 Respiratory Rate 16 Blood Pressure 141/87 H Blood Pressure Mean 105 Pulse Ox 99 Oxygen Delivery Method Room Air Positive well nourished and well developed General Appearance ED: well developed <Dr. Kp Seay MD - Last Filed: 05/02/22 12:43> Physical Exam Const Vital Signs: 05/02/22 11:21 Temperature 97.5 F L Temperature Source Temporal Pulse Rate 70 Respiratory Rate 16 Blood Pressure 141/87 H Blood Pressure Mean 105 Pulse Ox 99 Oxygen Delivery Method Room Air [facility] <TAMEKA Nickerson - Last Filed: 05/02/22 13:32> [facility] Narrative Medical decision making narrative: Patient appears well, patient appears nontoxic vital signs are stable. Patient presents to the emergency department for cellulitis, swelling to the left great toe. He does have history of infection and was admitted for this 1 month ago. Patient did receive some laboratory values done outpatient today, it showed a slight leukocytosis with white blood count of 11, with slight increase in CRP. Due to the patient's history of diabetes, renal transplant 2 years ago, and history of infection of this foot, patient request admission for IV antibiotics to ensure does not get worse. Patient did receive an x-ray of the foot which showed soft tissue swelling however no acute process. We did speak with the hospitalist, patient will be admitted to the hospital for IV antibiotics. Patient stable Radiography Diagnostic Testing: Clinical Impression(s) from Imaging Studies Foot X-Ray 05/02/22 11:40 IMPRESSION: Soft tissue swelling of the great toe. Vascular calcification. Electronically Signed: Godwin Palmer MD at 13:15 EDT , <Dr. Kp Seay MD - Last Filed: 05/02/22 12:43> [facility] Narrative Medical decision making narrative: I have personally performed a face to face assessment of the patient and have reviewed the NIKKO Note. I performed a substantive portion of the visit including all aspects of the following. My joy findings include: History is [61-year-old male history of diabetes and prior renal transplant that I am evaluated with our nurse practitioner. Patient has a history of month ago of a left great toe cellulitis and need to be admitted for IV antibiotics. He now has a 5-day history of left great toe pain, redness and swelling to 3 infected. He has had outpatient labs showing an elevated CRP. Today was sent in for an x-ray and patient's requesting admission for IV antibiotics.] Exam is [alert male no acute distress vital signs stable afebrile. Lungs are clear. Heart regular rhythm. Abdomen soft nontender. Moving all 4 extremities. The left great toe is significantly swollen, red with cellulitis and tender. There is no lymphangitic streaking. There is no inguinal lymphadenopathy. This is consistent with a cellulitis.] Medical Decision Making [outpatient labs showed a white count of 11.5. Elevated CRP. X-ray today shows soft tissue swelling but no obvious signs of osteomyelitis but I explained to the patient that he may need further imaging to actually determine that.] Other additions or changes: [None] Lab Data Attestation: I reviewed the patient's lab results. Radiography Diagnostic Testing: Clinical Impression(s) from Imaging Studies Foot X-Ray 05/02/22 11:40 IMPRESSION: Soft tissue swelling of the great toe. Vascular calcification. Electronically Signed: Godwin Palmer MD at 13:15 EDT , Left foot x-ray. Soft tissue swelling of the great toe. Chronic changes. No obvious signs of osteomyelitis. 3 views. Interpreted by myself. No fracture. Discharge Plan Triage Chief Complaint: Wound Check ED Midlevel Provider: Deven Danielle ED Provider: Kp Seay Dx/Rx/DC Orders Clinical Impression: Cellulitis of great toe, left, History of diabetes mellitus, History of kidney transplant Prescriptions: No Action carvedilol [Coreg] 6.25 mg tablet 12.5 mg PO DAILY RF: 0 prednisone 10 mg tablet 7.5 mg PO DAILY RF: 0 citalopram 40 MG tablet 40 mg PO DAILY RF: 0 atorvastatin 10 MG tablet 10 mg PO DAILY RF: 0 insulin lispro 100 UNIT/ML cartridge See Protocol unit SQ PRN PRN (Reason: Blood sugar) RF: 0 levothyroxine 175 MCG tablet 175 mcg PO DAILY RF: 0 pantoprazole 40 MG tablet 40 mg PO DAILY RF: 0 hydralazine 25 mg Tablet 25 mg PO BID RF: 0 calcitriol 0.25 mcg Capsule 0.25 mcg PO DAILY RF: 0 mycophenolate sodium 180 mg Tablet,Delayed Release (Dr/Ec) 360 mg PO BID RF: 0 Envarsus XR 0.75 mg PO/SL DAILY RF: 0 amoxicillin-pot clavulanate 875-125 mg tablet 1 tab PO BID Qty: 28 RF: 0 Trulicity 0.75 mg/0.5 mL pen injector 0.75 mg subcut QWEEK Qty: 6 RF: 0 (DME) FreeStyle Javed 2 Sensor Kit See Rx Instructions .ROUTE .MEDSUPPLY Qty: 2 RF: 6 (DME) FreeStyle Javed 2 [place] Misc See Rx Instructions .ROUTE .MEDSUPPLY Qty: 1 RF: 0 (DME) True Metrix Glucose Test Strip Strip See Rx Instructions .ROUTE .MEDSUPPLY Qty: 120 RF: 6 Primary Care Provider: Marques Casanova Referrals: Marques Casanova MD [Primary Care Provider] - Disposition Disposition: Acute Care Hospital [facility]
--- NOTE | 2022-05-02 13:22 | MRI_ITS ---
STUDY: MRI LEFT FOREFOOT WITHOUT CONTRAST REASON FOR EXAM: Male, 61 years old. left great toe cellulitis TECHNIQUE: Standardized fat and water weighted pulse sequences were obtained in all 3 orthogonal planes. COMPARISON: X-ray earlier today FINDINGS: Normal metatarsophalangeal joint of the hallux. Normal tibial and fibular sesamoids, with normal sesamoids-first metatarsal articulations. Normal interphalangeal joint of the hallux. Normal proximal and distal phalanges of the great toe. Normal medial and lateral heads of the flexor hallucis brevis tendons. Normal flexor and extensor hallucis longus tendons. Normal second through fifth metatarsophalangeal (MTP) joints. Normal interphalangeal joints of the second through fifth toes. Normal proximal, middle and distal phalanges of the second through fifth toes. Normal first through fourth intermetatarsal spaces. Normal flexor and extensor tendons of the second through fifth toes. Normal visualized metatarsi. Normal intrinsic muscles of the forefoot. There is some skin thickening and edema of the subcutaneous fat of the first digit consistent with known cellulitis. Delayed fluid collection to suggest abscess. MRI/Lower Ext/No Jt/w/o IMPRESSION: Cellulitis of the first digit. No abscess or osteomyelitis. Electronically Signed: Barry Casillas MD at 15:26 EDT ,
--- NOTE | 2022-05-02 13:24 | HP.PCM.HOS_ITS ---
[facility] - General General Date of Service: 05/02/22 Chief Complaint: left great toe cellulitis HPI Narrative ROBERT DIEZ, is a 61 M who presents with left great toe cellulitis. He had complained of recurrent redness in his toe past 2 days. Saw the podiatry adeline brice and received a script for Augmentin, but he had not taken it yet. Similar, but less severe than in March. Symptoms began at that time when he cut off callus on left great toe. [facility] Medical History Acute respiratory failure Acute respiratory failure with hypoxia Anemia Chronic systolic (congestive) heart failure Congestive heart failure (CHF) Cough with hemoptysis CPAP (continuous positive airway pressure) dependence Diffuse pulmonary alveolar hemorrhage Dilated cardiomyopathy End stage renal disease on dialysis Healthcare-associated pneumonia Hemoptysis History of immunosuppression therapy Hyperlipidemia Hypertension Hypothyroidism Kidney disease Left ventricular hypertrophy Lymphadenopathy DAVID (obstructive sleep apnea) Problem with dialysis access Sinus bradycardia Sleep apnea Type II diabetes mellitus Gee's granulomatosis with renal involvement Home Medications atorvastatin 10 mg PO DAILY 01/19/19 [History Last Taken 02/04/19] citalopram 40 mg PO DAILY 01/19/19 [History Last Taken 02/04/19] carvedilol 6.25 mg tablet 12.5 mg PO DAILY 01/27/19 [History Last Taken 05/29/19] insulin lispro See Protocol SQ PRN PRN 05/29/19 [History Last Taken Unknown] levothyroxine 175 mcg PO DAILY 10/15/20 [History Last Taken Unknown] pantoprazole 40 mg PO DAILY 10/15/20 [History Last Taken Unknown] Trulicity 0.75 mg/0.5 mL subcutaneous pen injector 0.75 mg SUBCUT QWEEK #6 ml NS 03/01/22 [Rx Last Taken Unknown] flash glucose scanning reader #1 ea 03/08/22 [Rx Last Taken Unknown] flash glucose sensor #2 ea 03/08/22 [Rx Last Taken Unknown] blood sugar diagnostic #120 ea 03/12/22 [Rx Last Taken Unknown] prednisone 10 mg tablet 7.5 mg PO DAILY tab 04/05/22 [History Last Taken Unknown] Envarsus XR 0.75 mg PO/SL DAILY 04/07/22 [History Last Taken Unknown] calcitriol 0.25 mcg PO DAILY 04/07/22 [History Last Taken Unknown] hydralazine 25 mg PO BID 04/07/22 [History Last Taken Unknown] mycophenolate sodium 360 mg PO BID 04/07/22 [History Last Taken Unknown] amoxicillin-pot clavulanate 1 tab PO BID #28 tab 05/01/22 [Rx Last Taken Unknown] Allergy/AdvReac Type Severity Reaction Status Date / Time losartan Allergy Severe Hives Verified 05/02/22 11:22 epoetin beta [From Mircera] AdvReac back pain Verified 05/02/22 11:22 Family History Father CAD (coronary artery disease) Myocardial infarction, Onset Age: 56 Stented coronary artery Surgical History H/O hernia repair Presence of surgically created arteriovenous shunt for hemodialysis S/P arteriovenous (AV) fistula repair S/P nasal surgery Social History Smoking Status: Former smoker alcohol intake: never ROS ROS Narrative All review of systems were negative except as mentioned above in the history of present illness and the other review of systems. Vital Signs Vital Signs Vital Signs: 05/02/22 11:21 Temperature 36.4 C L Temperature Source Temporal Pulse Rate 70 Respiratory Rate 16 Blood Pressure 141/87 H Blood Pressure Mean 105 Pulse Ox 99 Oxygen Delivery Method Room Air Weight Weight: 95.254 kg Body Mass Index (BMI) 30.1 Physical Exam Const alert General Appearance: cooperative Resp normal respiratory effort, no retractions, no use of accessory muscles and clear to auscultation bilaterally Cardio regular rate, regular rhythm, S1 normal heart sound and S2 normal heart sound GI normal to inspection, nondistended, normoactive bowel sounds, soft to palpation, non-tender and non-distended Extremity normal to inspection Neuro Sensorium / Orientation: awake and alert Results Radiology Impression Foot X-Ray 05/02/22 11:40 IMPRESSION: Soft tissue swelling of the great toe. Vascular calcification. Electronically Signed: Godwin Palmer MD at 13:15 EDT , Assessment & Plan Assessment/Plan (1) Cellulitis of great toe, left: PLAN: 1. Left great toe cellulitis * Recurrent * No obvious abscess * X-ray was unremarkable except for soft tissue swelling * Check MRI to rule out osteomyelitis * Vancomycin * Culture performed on the seventh thus far growing out staph aureus * if abscess or osteomyeltitis, consult podiatry 2. Diabetes mellitus type 2 * Complicating care * SSI 3. S/P Renal transplant * on mycophenolate and prednisone * stable 4. Granulomatosis w polyangiitis and microscopic polyangiitis * stable * etiology of his renal failure * no current pulmonary issues Charges/Coding Visit Charges OBSV E&M: 46393 Initial observation care L2
[2022-05-02 13:47] VITALS: BP 139/67; PULSE 74; RESP 18; TEMP 36.7; O2SAT 99
[2022-05-02 15:07] VITALS: BMI 29.7
[2022-05-02 15:16] VITALS: BP 146/70; PULSE 63; RESP 16; TEMP 36.3; O2SAT 95
[2022-05-02] MEDS: Insulin Lispro 100 UNIT/ML INSULN.PEN SC (15:58)
[2022-05-02 16:06] LABS: Bedside Glucose 176 mg/dL (74-106)
--- NOTE | 2022-05-02 18:05 | PCM.RX.CS ---
Consult Pharmacy has been consulted to manage selected antiobiotic: Vancomycin Type of Consult: New start Suspected Infection: Skin/Soft tissue Goal Trough: 10-15 mcg/mL Pharmacy Plan for Drug Dosing: NEW START IV VANCOMYCIN Consulting Physician: Dr. Crisostomo Indication: foot infection Goal Trough: 10-15 SrCr: 2.13 CrCl: 42 mL/min Comments: Initial dose 1500mg IV x1 ordered and administered 05/02/22 @1714 Vancomcyin Dose: 1250mg IV Q24h to start 05/03/22 @1700 Pending Level: 05/04/22 @1630, prior to 3rd total dose per protocol Pharmacy Service will continue to monitor and adjust dosing as required.
[2022-05-02 21:44] VITALS: BP 144/85; PULSE 65; RESP 18; TEMP 36.6; O2SAT 98
[2022-05-02] MEDS: Atorvastatin Calcium 10 MG Tablet PO (21:47)
[2022-05-02 21:48] VITALS: BP 144/85; PULSE 65
[2022-05-02] MEDS: hydrALAZINE 25 MG Tablet PO (21:48)
[2022-05-02] MEDS: 0.9% Saline Lock 10 ML Syringe IV (21:48)
[2022-05-02] MEDS: MYCOPHENOLATE SODIUM 180 MG TABLET.DR 360 MG PO (21:48)
[2022-05-02 22:05] LABS: Bedside Glucose 174 mg/dL (74-106)
[2022-05-03 03:55] VITALS: BP 130/57; PULSE 61; RESP 18; TEMP 36.6; O2SAT 97
[2022-05-03] MEDS: Levothyroxine 175 MCG Tablet PO (06:19)
[2022-05-03] MEDS: Insulin Lispro 100 UNIT/ML INSULN.PEN SC ×2 (06:19→11:20)
[2022-05-03 06:20] LABS: Absolute Lymphocyte Count 1.13 X10^3/uL (0.83-4.51); Basophil# 0.05 X10^3/uL; Basophil% 0.4 % (0-1); Eosinophil# 0.15 X10^3/uL; Eosinophils% 1.3 % (0-5); Hematocrit 46.7 % (40-54); Lymphocyte # 1.13 X10^3/ul (0.83-4.51); Lymphocyte % 9.7 % (19-41); Mean Corp Hgb Conc 32.1 g/dL (32-36); Mean Corpuscular Hgb 27.4 pg (27.0-32.0); Mean Corpuscular Volume 85.4 fL (80-94); Mean Platelet Vol. 9.8 fl (6.2-12.0); Monocyte# 1.19 X10^3/uL; Monocyte% 10.2 % (0-10); NRBC Flagged by Analyzer 0 % (0-5); Neutrophil # 9.04 X10^3/uL (2.7-7.7); Neutrophil % 77.7 % (47-70); Platelet Count 194 K/mm3 (150-450); RBC Distribution Width CV 13.5 % (11.6-14.6); RBC Distribution Width SD 42.3 fl (35.1-43.9); Red Blood Count 5.47 M/mm3 (4.6-6.2); White Blood Count 11.6 K/mm3 (4.4-11.0)
[2022-05-03 06:45] LABS: Bedside Glucose 168 mg/dL (74-106)
[2022-05-03 06:47] LABS: Anion Gap 9 (5-15); BUN 44 mg/dL (7-18); BUN/Creat Ratio 20.5 RATIO (10-20); Calcium,Total 8.8 mg/dL (8.5-10.1); Chloride 107 mmol/L (98-107); Creatinine, Serum 2.15 mg/dL (0.70-1.30); EST Glomerular Filtration Rate 34 mL/min (>60); Est Glom Filt Rate - Afr Amer 41 mL/min (>60); Glucose 145 mg/dL (74-106); Potassium 3.4 mmol/L (3.5-5.1); Sodium Level 139 mmol/L (136-145)
--- NOTE | 2022-05-03 07:59 | PN.HOSP_ITS ---
Subjective Subjective Feeling well. Left great toe red. Objective Data Objective Data Vital Signs: Vital Signs Temp Pulse Resp BP Pulse Ox 36.6 C 61 18 130/57 H 97 05/03/22 03:55 05/03/22 03:55 05/03/22 03:55 05/03/22 03:55 05/03/22 03:55 Oxygen Delivery Method Room Air Weight: 94.075 kg Body Mass Index (BMI) 29.7 Intake & Output: Intake and Output for Last 24 Hours 05/01/22 05/02/22 05/03/22 23:59 23:59 23:59 Intake Total 1010 / 1010 Balance 1010 / 1010 Lab / Micro Data Result Diagrams: 05/03/22 06:04 05/03/22 06:04 Labs: Laboratory Results - last 24 hr 05/02/22 15:56: POC Glucose 176 H 05/02/22 21:42: POC Glucose 174 H 05/03/22 06:04: WBC 11.6 H, RBC 5.47, Hgb 15.0, Hct 46.7, MCV 85.4, MCH 27.4, MCHC 32.1, RDW Std Deviation 42.3, RDW Coeff of Carmina 13.5, Plt Count 194, MPV 9.8, Immature Gran % (Auto) 0.700, Neut % (Auto) 77.7 H, Lymph % (Auto) 9.7 L, Emanuel % (Auto) 10.2 H, Eos % (Auto) 1.3, Baso % (Auto) 0.4, Absolute Neuts (auto) 9.0 H, Absolute Lymphs (auto) 1.13, Nucleated RBC % 0 05/03/22 06:04: Sodium 139, Potassium 3.4 L, Chloride 107, Carbon Dioxide 23.0, Anion Gap 9, BUN 44 H, Creatinine 2.15 H, Estim Creat Clear Calc 38.20, Est GFR (MDRD) Af Amer 41 L, Est GFR (MDRD) Non-Af 34 L, BUN/Creatinine Ratio 20.5 H, Glucose 145 H, Calcium 8.8 05/03/22 06:17: POC Glucose 168 H Radiography Diagnostic Testing: Radiology Impression Foot X-Ray 05/02/22 11:40 IMPRESSION: Soft tissue swelling of the great toe. Vascular calcification. Electronically Signed: Godwin Palmer MD at 13:15 EDT , Lower Extremity MRI 05/02/22 13:22 IMPRESSION: Cellulitis of the first digit. No abscess or osteomyelitis. Electronically Signed: Barry Casillas MD at 15:26 EDT , Physical Exam Const alert and no apparent distress Skin Skin Narrative: slightly improved redness on left great toe. Assessment & Plan Assessment/Plan (1) Cellulitis of great toe, left: PLAN: 1. Left great toe cellulitis * Recurrent * Vancomycin * MSSA * MRI negative for osteomyelitis and abscess * doxycycline for 1 week. * pt to follow up with Dr. Esparza on 05/08. 2. Diabetes mellitus type 2 * Complicating care * SSI 3. S/P Renal transplant * on mycophenolate and prednisone * stable 4. Granulomatosis w polyangiitis and microscopic polyangiitis * stable * etiology of his renal failure * no current pulmonary issues
[2022-05-03 09:15] VITALS: BP 140/71; PULSE 66; RESP 16; TEMP 36.5; O2SAT 96
[2022-05-03] MEDS: hydrALAZINE 25 MG Tablet PO (09:15)
[2022-05-03] MEDS: MYCOPHENOLATE SODIUM 180 MG TABLET.DR 360 MG PO (09:15)
[2022-05-03] MEDS: Pantoprazole Sodium 40 MG Tablet PO (09:15)
[2022-05-03] MEDS: Calcitriol 0.25 MCG Capsule PO (09:16)
[2022-05-03] MEDS: predniSONE 5 MG Tablet 7.5 MG PO (09:16)
[2022-05-03] MEDS: Carvedilol 12.5 MG Tablet PO (09:16)
[2022-05-03] MEDS: Citalopram 40 MG TABLET PO (09:16)
[2022-05-03 11:25] LABS: Bedside Glucose 185 mg/dL (74-106)
[2022-05-03] MEDS: Potassium Chloride Oral Tablet 20 MEQ 40 MEQ PO (12:04)
--- NOTE | 2022-05-03 13:30 | DCINST_ITS ---
Discharge Instructions Diet Discharge Diet: 2000 Calorie Control Diet Activity Return to work on:: 05/09/22 Dressing / Incision Call your doctor if your incision/area has: Continuous Slow Oozing, Increased Pain/ Swelling and Increased Redness Follow Up Care Test Results: Test results from this visit will be discussed in further detail at your follow-up appointment, if applicable. Discharge Plan Admission Admit Date/Time: 05/02/22 13:18 Primary Reason for Your Visit: left great toe cellulitis Attending Provider: Liam Crisostomo Primary Care Provider: Marques Casanova Discharge Orders/Prescriptions Prescriptions: New doxycycline hyclate 100 mg capsule 100 mg PO BID Qty: 14 RF: 0 Continued citalopram 40 MG tablet 40 mg PO DAILY RF: 0 insulin lispro 100 UNIT/ML cartridge See Protocol unit SQ PRN PRN (Reason: Blood sugar) RF: 0 levothyroxine 175 MCG tablet 175 mcg PO DAILY RF: 0 pantoprazole 40 MG tablet 40 mg PO DAILY RF: 0 hydralazine 25 mg Tablet 25 mg PO BID RF: 0 calcitriol 0.25 mcg Capsule 0.25 mcg PO DAILY RF: 0 mycophenolate sodium 180 mg Tablet,Delayed Release (Dr/Ec) 360 mg PO BID RF: 0 atorvastatin 20 mg tablet 20 mg PO QHS RF: 0 carvedilol 12.5 mg tablet 12.5 mg PO BID RF: 0 torsemide 20 mg tablet 40 mg PO DAILY RF: 0 amlodipine 10 mg tablet 10 mg PO DAILY RF: 0 prednisone 2.5 mg tablet 7.5 mg PO DAILY RF: 0 Envarsus XR 0.75 mg tablet extended release 24 hr 0.75 mg PO DAILY RF: 0 Trulicity 0.75 mg/0.5 mL pen injector 0.75 mg subcut TU RF: 0 Levemir FlexTouch U-100 Insuln 100 unit/mL (3 mL) insulin pen 28 unit SUBCUT QHS RF: 0 (DME) FreeStyle Javed 2 Sensor Kit See Rx Instructions .ROUTE .MEDSUPPLY Qty: 2 RF: 6 (DME) FreeStyle Javed 2 [place] Misc See Rx Instructions .ROUTE .MEDSUPPLY Qty: 1 RF: 0 (DME) True Metrix Glucose Test Strip Strip See Rx Instructions .ROUTE .MEDSUPPLY Qty: 120 RF: 6 Discontinued amoxicillin-pot clavulanate 875-125 mg tablet 1 tab PO BID Qty: 28 RF: 0 Referrals / Follow Up: Santo Esparza DPM [STAFF PHYSICIAN] - 05/08/22 Marques Casanova MD [Primary Care Provider] - Within 2 Weeks Disposition Disposition (needs filled in before D/C Order can be placed): Home, Self Care
--- NOTE | 2022-05-03 13:34 | PCM.DC.SUM ---
Providers Date of Admission: 05/02/22 Primary Care Physician: Dr. Marques Casanova MD Reason For Visit: left foot wound Diagnosis Discharge Diagnosis (1) Cellulitis of great toe, left: Status: Acute Code(s): L03.032 - Cellulitis of left toe Medications at Discharge Home Medications citalopram 40 mg PO DAILY 01/19/19 insulin lispro See Protocol SQ PRN PRN 05/29/19 levothyroxine 175 mcg PO DAILY 10/15/20 pantoprazole 40 mg PO DAILY 10/15/20 flash glucose scanning reader #1 ea 03/08/22 flash glucose sensor #2 ea 03/08/22 blood sugar diagnostic #120 ea 03/12/22 calcitriol 0.25 mcg PO DAILY 04/07/22 hydralazine 25 mg PO BID 04/07/22 mycophenolate sodium 360 mg PO BID 04/07/22 Envarsus XR 0.75 mg PO DAILY 05/02/22 Levemir FlexTouch U-100 Insuln 28 unit SUBCUT QHS 05/02/22 Trulicity 0.75 mg SUBCUT TU 05/02/22 amlodipine 10 mg PO DAILY 05/02/22 atorvastatin 20 mg PO QHS 05/02/22 carvedilol 12.5 mg PO BID 05/02/22 prednisone 7.5 mg PO DAILY 05/02/22 torsemide 40 mg PO DAILY 05/02/22 doxycycline hyclate 100 mg PO BID #14 cap 05/03/22 Hospital Course Operations None Procedures None Summary of Care Provided Minutes Spent on Discharge: 28 Hospital Course: 1. Left great toe cellulitis Recurrent Vancomycin MSSA MRI negative for osteomyelitis and abscess doxycycline for 1 week. pt to follow up with Dr. Esparza on 05/08. 2. Diabetes mellitus type 2 Complicating care SSI 3. S/P Renal transplant on mycophenolate and prednisone stable 4. Granulomatosis w polyangiitis and microscopic polyangiitis stable etiology of his renal failure no current pulmonary issues Weight / BMI Weight Weight: 94.075 kg Body Mass Index (BMI) 29.7 ABG / Lab / Microbiology Data Result Diagrams: 05/03/22 06:04 05/03/22 06:04 Laboratory: Laboratory Results - last 24 hr 05/02/22 15:56: POC Glucose 176 H 05/02/22 21:42: POC Glucose 174 H 05/03/22 06:04: WBC 11.6 H, RBC 5.47, Hgb 15.0, Hct 46.7, MCV 85.4, MCH 27.4, MCHC 32.1, RDW Std Deviation 42.3, RDW Coeff of Carmina 13.5, Plt Count 194, MPV 9.8, Immature Gran % (Auto) 0.700, Neut % (Auto) 77.7 H, Lymph % (Auto) 9.7 L, [place] % (Auto) 10.2 H, Eos % (Auto) 1.3, Baso % (Auto) 0.4, Absolute Neuts (auto) 9.0 H, Absolute Lymphs (auto) 1.13, Nucleated RBC % 0 05/03/22 06:04: Sodium 139, Potassium 3.4 L, Chloride 107, Carbon Dioxide 23.0, Anion Gap 9, BUN 44 H, Creatinine 2.15 H, Estim Creat Clear Calc 38.20, Est GFR (MDRD) Af Amer 41 L, Est GFR (MDRD) Non-Af 34 L, BUN/Creatinine Ratio 20.5 H, Glucose 145 H, Calcium 8.8 05/03/22 06:17: POC Glucose 168 H 05/03/22 11:19: POC Glucose 185 H Radiography Diagnostic Testing: Radiology Impression Lower Extremity MRI 05/02/22 13:22 IMPRESSION: Cellulitis of the first digit. No abscess or osteomyelitis. Electronically Signed: Barry Casillas MD at 15:26 EDT Reading Location ID and State: [address] [place] [address] Tel , Service support , D/C Instructions Discharge Diet: 2000 Calorie Control Diet Return to work on: 05/09/22 Call your doctor if your incision/area has: Continuous Slow Oozing, Increased Pain/ Swelling and Increased Redness Meaningful Use Info Meaningful Use Diagnoses (Choose all that apply): None applicable Discharge Plan Admission Admit Date/Time: 05/02/22 13:18 Primary Reason for Your Visit: left great toe cellulitis Attending Provider: Liam Crisostomo Primary Care Provider: Marques Casanova Discharge Orders/Prescriptions Prescriptions: New doxycycline hyclate 100 mg capsule 100 mg PO BID Qty: 14 RF: 0 Continued citalopram 40 MG tablet 40 mg PO DAILY RF: 0 insulin lispro 100 UNIT/ML cartridge See Protocol unit SQ PRN PRN (Reason: Blood sugar) RF: 0 levothyroxine 175 MCG tablet 175 mcg PO DAILY RF: 0 pantoprazole 40 MG tablet 40 mg PO DAILY RF: 0 hydralazine 25 mg Tablet 25 mg PO BID RF: 0 calcitriol 0.25 mcg Capsule 0.25 mcg PO DAILY RF: 0 mycophenolate sodium 180 mg Tablet,Delayed Release (Dr/Ec) 360 mg PO BID RF: 0 atorvastatin 20 mg tablet 20 mg PO QHS RF: 0 carvedilol 12.5 mg tablet 12.5 mg PO BID RF: 0 torsemide 20 mg tablet 40 mg PO DAILY RF: 0 amlodipine 10 mg tablet 10 mg PO DAILY RF: 0 prednisone 2.5 mg tablet 7.5 mg PO DAILY RF: 0 Envarsus XR 0.75 mg tablet extended release 24 hr 0.75 mg PO DAILY RF: 0 Trulicity 0.75 mg/0.5 mL pen injector 0.75 mg subcut TU RF: 0 Levemir FlexTouch U-100 Insuln 100 unit/mL (3 mL) insulin pen 28 unit SUBCUT QHS RF: 0 (DME) FreeStyle Javed 2 Sensor Kit See Rx Instructions .ROUTE .MEDSUPPLY Qty: 2 RF: 6 (DME) FreeStyle Javed 2 [place] Misc See Rx Instructions .ROUTE .MEDSUPPLY Qty: 1 RF: 0 (DME) True Metrix Glucose Test Strip Strip See Rx Instructions .ROUTE .MEDSUPPLY Qty: 120 RF: 6 Discontinued amoxicillin-pot clavulanate 875-125 mg tablet 1 tab PO BID Qty: 28 RF: 0 Referrals / Follow Up: Santo Esparza DPM [STAFF PHYSICIAN] - 05/08/22 Marques Casanova MD [Primary Care Provider] - Within 2 Weeks Disposition Disposition (needs filled in before D/C Order can be placed): Home, Self Care Charges/Coding Visit Charges OBSV E&M: 44088 Observation care discharge
--- NOTE | 2022-05-03 14:45 | CASEMGMT ---
This RN ANKIT to room with GODINEZ form, explanation done-pt voices understanding, and signs GODINEZ form. Original to chart and copy to pt. Pt voices no further questions/concerns/needs. SStaten SILVANA CM
[2022-05-03 15:00] VITALS: BP 147/75; PULSE 64; RESP 16; TEMP 36.6; O2SAT 96
== END 2022-05-03 13:33 | disposition home or self-care (01) ==
LOC: ED 13:32 → PCU 15:06
PROVIDERS: Emergency Provider Emergency Medicine; PCP Family Medicine
DX: L03.032 Cellulitis of left toe (principal); I13.2 Hypertensive heart and chronic kidney disease with heart failure and with stage 5 chronic kidney disease, or end stage renal disease; M31.31 Wegener's granulomatosis with renal involvement; I42.0 Dilated cardiomyopathy; I50.22 Chronic systolic (congestive) heart failure; E11.22 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 diabetic chronic kidney disease; N18.6 End stage renal disease; Z79.4 Long term (current) use of insulin; E78.5 Hyperlipidemia, unspecified; Z87.891 Personal history of nicotine dependence; Z94.0 Kidney transplant status; E03.9 Hypothyroidism, unspecified; Z79.899 Other long term (current) drug therapy; Z79.890 Hormone replacement therapy; G47.33 Obstructive sleep apnea (adult) (pediatric)
CPT/HCPCS: 36415; 73630; 73718; 80048; 80053; 80197; 82962; 85025; 85652; 86140; 96365; 96366; 99218; 99283; J7040; A4216; G0378

== ENCOUNTER 2022-05-22 09:00 | Outpatient (RCR) | payer MEDICARE, SELFPAY ==
[2022-04-25 01:17] VITALS: BP 119/75; PULSE 74; RESP 16; TEMP 36.1; BMI 30.1
[2022-05-01 10:30] VITALS: BP 137/70; PULSE 67; TEMP 36.1; BMI 30.1
--- NOTE | 2022-05-01 11:17 | PN.PCM_ITS ---
History of Present Illness Date of Service: 05/01/22 Progress of Wound: This 61-year-old male presents to clinic after recently being discharged from the hospital for a left hallux wound. Patient is a type II diabetic with previous end-stage renal disease which was treated with a renal transplant. Patient does note recent A1c of 8.9 and notes that he is attempting to better control his blood sugar. Patient denies any constitutional symptoms at this time and has been taking Augmentin for a left hallux cellulitis. Patient has been wearing a surgical shoe and attempting heel weightbearing, but has continued working at his daily job at [employer]. Patient has been taking Augmentin and notes continued resolution of his left great toe infection. Objective Data Objective Data Vital Signs: Vital Signs Temp Pulse Resp BP 96.9 F L 67 16 137/70 H 05/01/22 10:30 05/01/22 10:30 04/25/22 01:17 05/01/22 10:30 Weight: 95.254 kg Body Mass Index (BMI) 30.1 Physical Exam Narrative Patient is alert oriented to person place and time. Patient is ambulating in a surgical shoe to his left lower extremity. Normal shoe gear on the right side. Vascular: Dorsalis pedis and posterior tibial pulses palpable 2 out of 4 to bila teral lower extremity. Capillary fill time brisk to lesser digits. Digital hair growth noted. No atrophic skin changes noted. Resolving edema to the left foot. Some increased warmth the left hallux. Neurologic: Light touch protective sensation diminished bilateral feet. Dermatologic: Full-thickness ulceration to plantar medial left hallux IPJ. Mild periwound erythema and edema. No underlying fluctuance or crepitance deep probing. No undermining. Wound base granular pre and postdebridement. Pre and postdebridement measurements document nursing notes. Musculoskeletal: Left hallux rigidus deformity which is likely contributory to the left medial hallucal IPJ ulceration. Muscular strength full to bilateral lower extremity compartments. Debridement Note Debridement Note Post-Debridement Measurements and Additional Note: Post-Debridement Measurements/Treatment OLIVIER - Nurse 1 - General Ulcer Assessment Start: 05/01/22 10:30 Freq: Status: Active Protocol: OLIVIER.LOWEXT Activity Type Activity Date Activity User E-Sign Co-Sign Detail Recorded Client Recorded Date Recorded By Document 05/01/22 10:30 CT [id number] 05/01/22 10:32 CT 05/01/22 10:30 - Today's Visit Information Type of service Follow-up Visit (Physician/ELECTRONIC WARFARE SPECIALIST ) Arrival Mode Ambulatory Patient Identification Verified (Name & Yes ) Patient Requires Transmission-Based No Precautions Safety Precautions NA Height and Weight Body Mass Index (BMI) 30.1 BMI Classification Obese Vital Signs Temperature (97.8 F-99.1 F) 96.9 F L Temperature Source Temporal Pulse Rate (60-100) 67 Pulse Location Monitor Blood Pressure (90/60-120/80) 137/70 H Blood Pressure Mean (mm Hg) 92 Source Monitor History Since Last Visit- (Skip if this is Patient's initial visit) Have you changed medications since your No last visit? Any new allergies or adverse reactions No Had a fall/change in ADL's that may No increase risk of falls Signs or symptoms of abuse and/or No neglect since last visit Have you been in the hospital since your Yes last visit? Has dressing in place as prescribed Yes Has compression in place as prescribed No Has offloadiing in place as prescribed No Experienced any changes in pain level or No management Left Footwear Surgical Shoe with pressure relief insole Right Footwear Regular Shoe Pain Scale: 0-10 Numeric Is Patient Pain Free? Yes - Nurse 1 - General Ulcer Measurement Start: 05/01/22 10:30 Freq: Status: Active Protocol: Activity Type Activity Date Activity User E-Sign Co-Sign Detail Recorded Client Recorded Date Recorded By Document 05/01/22 10:30 LAZARO [id number] 05/01/22 10:32 CT 05/01/22 10:30 Wound Center Nurse 1 #1- L GR TOE -Combined with other wound No -Current Size (cm) - Length 0.2 -Current Size (cm) - Width 0.7 -Current Size (cm) - Depth 0.8 -Total Square Cm 0.14 -Photo Taken No -Epithelialization None Present -Tunneling No -Undermining/Tunneling No -Circular Undermining No -Change in Wound Grade/Stage No -Exudate Amt Small -Exudate Type Serosanguineous -Wound Margin Distinct, Outline Attached -Granulation Amt Small (1-33%) -Granulation Quality N/A -Slough/Fibrin No -Necrosis Amt Small (1-33%) -Necrotic Tissue Type Adherent Slough -Structure Exposed N/A -Texture (Angie-wound Skin Appearance) Assessed,Callus -Moisture (Angie-wound Skin Appearance) Assessed, Maceration -Color (Angie-wound Skin Appearance) No Abnormality, Assessed -Temperature (Angie-wound Skin No Abnormality Appearance) (Pt Warm) -Tenderness on Palpation (Angie-wound No Skin Appearance) -Ulcer Cleansing Rinsed/ Irrigated with Saline -Foul Odor after Cleansing No -Anesthetic Used 4% Lidocaine Solution WC - Nurse 2 - General Ulcer CM Notes Start: 05/01/22 10:30 Freq: Status: Active Protocol: Activity Type Activity Date Activity User E-Sign Co-Sign Detail Recorded Client Recorded Date Recorded By Document 05/01/22 10:57 [id number] 05/01/22 10:58 JF 05/01/22 10:57 Wound Center Nurse 2 -Time 10:57 -Correct Patient Yes -Correct Side, Site, Position Yes -Correct Procedure Yes -Procedure Performed Yes -Type of Procedure Debridement -Clinical Debridement Subcutaneous -Tissue Removed Subcutaneous -Post Debridement (cm) - Length 0.3 -Post Debridement (cm) - Width 0.6 -Post Debridement (cm) - Depth 1.4 -Total Square (Post) (cm) 0.18 -Area of Debridement (cm) - Length 0.3 -Area of Debridement (cm) - Width 0.6 -Total Square (Area) (cm) 0.18 -Tunneling No -Undermining/Tunneling No -Circular Undermining No -Wound/Ulcer Outcome Not Healed -Ulcer Cleansing Rinsed/ Irrigated with Saline -Foul Odor after Cleansing No -Bioengineered Tissue No -Bleeding Controlled with Pressure -Treatment Response Procedure Tolerated Well -Offloading Yes -Type of Offloading Surgical Shoe -Debridement - Subq, 1st 20sq cm Yes Pain Scale: 0-10 Numeric Is Patient Pain Free? Yes OLIVIER - Nurse 3 - General Ulcer D/C NN Start: 05/01/22 10:30 Freq: Status: Active Protocol: Activity Type Activity Date Activity User E-Sign Co-Sign Detail Recorded Client Recorded Date Recorded By Document 05/01/22 11:08 [place] [id number] 05/01/22 11:09 AK 05/01/22 11:08 Wound Care Nurse 3 #1- L GR TOE -Ulcer Cleansing Rinsed/ Irrigated with Saline -Primary Dressing Applied Aquacel AG 4x4 -Primary Dressing Covered/Secured with Dry Gauze & Roll Gauze, Secured with Tape -Aquacel AG 4x4 1 Pain Scale: 0-10 Numeric Is Patient Pain Free? Yes WC - Visit Discharge Discharge Condition Stable Ambulatory Status Ambulatory Transportation Private Auto Medication Reconcilliation completed & Yes provided to patient/care provider Clinical Summary of Care Provided Yes Assessment/Plan Assessment/Plan (1) Non-pressure chronic ulcer of other part of left foot with fat layer exposed: CODE(S): L97.522 - Non-pressure chronic ulcer of other part of left foot with fat layer exposed PLAN: Patient examined evaluated, all findings discussed with patient in detail. There is increased redness and swelling to the left hallux. Increased probing and drainage noted as well. I believe there is a cellulitis. I have ordered left foot x-rays and lab work including CBC, CMP, ESR, CRP. Wound today was excisionally debrided down to including level of subcutaneous tissue of all nonviable tissue using a #15 blade without incident. Hemostasis obtained with light compression no anesthesia required due to neuropathy. Patient tolerated procedure well. Pre and postdebridement measurements document nursing notes. This was performed at the level of the left hallux. Wound was flushed with copious amounts normal sterile saline and swab cultures were taken. Prescription for Augmentin 875 mg twice daily sent to [facility] in [place] as previous cultures demonstrated sensitivity to this. Patient was referred back to infectious disease for additional work-up and management. I discussed with patient in detail performing an hallux IPJ arthroplasty plus minus addition of antibiotic consent meant beads. Patient will consider this over the course of the next week. I recommended this as a procedure to eliminate any infected bone and allow for offloading of the wound mechanically which would act to accelerate healing. Patient has at risk ultimately of losing his big toe part of his foot or even his leg if infection cannot get under control. If there is no improvement or worsening on his follow-up we will consider hospital admission at that time. Patient will follow up in 1 week. He will continue offloading with surgical shoe and offloading pad. (2) Peripheral vascular disease, unspecified: CODE(S): I73.9 - Peripheral vascular disease, unspecified (3) 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 diabetic polyneuropathy: CODE(S): E11.42 - 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 diabetic polyneuropathy QUALIFIERS: Diabetes mellitus [facility] insulin use: unspecified superintendent container terminal insulin use status Qualified Code(s): E11.42 - 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 diabetic polyneuropathy
[2022-05-01 15:57] LABS: M R Staph aureus DNA By PCR Negative (Negative); Probe Check PASS; Specimen Processing Control PASS; Staph aureus DNA By PCR POSITIVE (Negative)
[2022-05-08 11:12] VITALS: BP 127/69; PULSE 63; RESP 16; TEMP 36.2; BMI 30.1
--- NOTE | 2022-05-08 11:31 | PCM.WC.PN ---
History of Present Illness Date of Service: 05/08/22 Progress of Wound: This 61-year-old male presents to clinic after recently being discharged from the hospital for a left hallux wound. Patient is a type II diabetic with previous end-stage renal disease which was treated with a renal transplant. Patient does note recent A1c of 8.9 and notes that he is attempting to better control his blood sugar. Patient denies any constitutional symptoms at this time and has been taking Augmentin for a left hallux cellulitis. Patient has been wearing a surgical shoe and attempting heel weightbearing, but has continued working at his daily job at [employer]. Patient has been taking Augmentin and notes continued resolution of his left great toe infection. Objective Data Objective Data Vital Signs: Vital Signs Temp Pulse Resp BP 97.1 F L 63 16 127/69 H 05/08/22 11:12 05/08/22 11:12 05/08/22 11:12 05/08/22 11:12 Weight: 95.254 kg Body Mass Index (BMI) 30.1 Lab / Micro Data Micro: Microbiology 05/01/22 10:55 Wound Abcess - Toe Gram Stain - Final 05/01/22 10:55 Wound Abcess - Toe Wound Culture - Final Staphylococcus aureus 05/01/22 10:55 Wound Abcess - Toe Anaerobic Culture - Final No anaerobic bacteria isolated. Debridement Note Debridement Note Post-Debridement Measurements and Additional Note: Post-Debridement Measurements/Treatment - Nurse 1 - General Ulcer Assessment Start: 05/01/22 10:30 Freq: Status: Active Protocol: .LOWJACINTO Activity Type Activity Date Activity User E-Sign Co-Sign Detail Recorded Client Recorded Date Recorded By Document 05/01/22 10:30 AK [id number] 05/01/22 10:32 AK Document 05/08/22 11:12 ML [id number] 05/08/22 11:15 ML 05/01/22 05/08/22 10:30 11:12 - Today's Visit Information Type of service Follow-up Visit Follow-up Visit (Physician/TIMBER SUPERVISOR (Physician/TIMBER SUPERVISOR ) ) Arrival Mode Ambulatory Ambulatory Transfer Assistance None Patient Identification Verified (Name & Yes Yes ) Patient Requires Transmission-Based No No Precautions Safety Precautions NA NA Finger Stick Blood Sugar(mg/dl) (if 96 indicated): Blood Sugar Done During this Visit Height and Weight Body Mass Index (BMI) 30.1 30.1 BMI Classification Obese Obese Vital Signs Temperature (97.8 F-99.1 F) 96.9 F L 97.1 F L Temperature Source Temporal Temporal Pulse Rate (60-100) 67 63 Pulse Location Monitor Monitor Respiratory Rate (12-18) 16 Respiratory rate source Observation Blood Pressure (90/60-120/80) 137/70 H 127/69 H Blood Pressure Mean (mm Hg) 92 88 Source Monitor Monitor Position Sitting Blood Pressure Location Left Arm History Since Last Visit- (Skip if this is Patient's initial visit) Have you changed medications since your No No last visit? Any new allergies or adverse reactions No No Had a fall/change in ADL's that may No No increase risk of falls Signs or symptoms of abuse and/or No No neglect since last visit Have you been in the hospital since your Yes No last visit? Has dressing in place as prescribed Yes Yes Has compression in place as prescribed No No Has offloadiing in place as prescribed No Yes Experienced any changes in pain level or No No management Left Footwear Surgical Shoe Regular Shoe with pressure relief insole Right Footwear Regular Shoe Surgical Shoe with pressure relief insole Pain Scale: 0-10 Numeric Is Patient Pain Free? Yes Yes WC - Nurse 1 - General Ulcer Measurement Start: 05/01/22 10:30 Freq: Status: Active Protocol: Activity Type Activity Date Activity User E-Sign Co-Sign Detail Recorded Client Recorded Date Recorded By Document 05/01/22 10:30 AK [id number] 05/01/22 10:32 AK Document 05/08/22 11:12 ML [id number] 05/08/22 11:15 ML 05/01/22 05/08/22 10:30 11:12 Wound Center Nurse 1 #1- L GR TOE -Combined with other wound No -Current Size (cm) - Length 0.2 0.3 -Current Size (cm) - Width 0.7 0.2 -Current Size (cm) - Depth 0.8 0.5 -Total Square Cm 0.14 0.06 -Photo Taken No -Epithelialization None Present -Tunneling No -Undermining/Tunneling No -Circular Undermining No -Change in Wound Grade/Stage No -Exudate Amt Small Medium -Exudate Type Serosanguineous Serous -Wound Margin Distinct, Distinct, Outline Outline Attached Attached -Granulation Amt Small (1-33%) Medium (34-66%) -Granulation Quality N/A [place] -Slough/Fibrin No Yes -Necrosis Amt Small (1-33%) Small (1-33%) -Necrotic Tissue Type Adherent Slough Adherent Slough -Structure Exposed N/A -Texture (Angie-wound Skin Appearance) Assessed,Callus Assessed -Moisture (Angie-wound Skin Appearance) Assessed, Assessed Maceration -Color (Angie-wound Skin Appearance) No Abnormality, Assessed Assessed -Temperature (Angie-wound Skin No Abnormality No Abnormality Appearance) (Pt Warm) (Pt Warm) -Tenderness on Palpation (Angie-wound No No Skin Appearance) -Ulcer Cleansing Rinsed/ Rinsed/ Irrigated with Irrigated with Saline Saline -Foul Odor after Cleansing No No -Anesthetic Used 4% Lidocaine 5% Lidocaine Solution Gel WC - Nurse 2 - General Ulcer CM Notes Start: 05/01/22 10:30 Freq: Status: Active Protocol: Activity Type Activity Date Activity User E-Sign Co-Sign Detail Recorded Client Recorded Date Recorded By Document 05/01/22 10:57 [id number] 05/01/22 10:58 Document 05/08/22 11:23 [id number] 05/08/22 11:31 05/01/22 05/08/22 10:57 11:23 Wound Center Nurse 2 #1- L GR TOE -Time 10:57 11:23 -Correct Patient Yes Yes -Correct Side, Site, Position Yes Yes -Correct Procedure Yes Yes -Procedure Performed Yes Yes -Type of Procedure Debridement Debridement -Clinical Debridement Subcutaneous Subcutaneous -Tissue Removed Subcutaneous Subcutaneous -Post Debridement (cm) - Length 0.3 0.3 -Post Debridement (cm) - Width 0.6 0.8 -Post Debridement (cm) - Depth 1.4 0.2 -Total Square (Post) (cm) 0.18 0.24 -Area of Debridement (cm) - Length 0.3 0.3 -Area of Debridement (cm) - Width 0.6 0.8 -Total Square (Area) (cm) 0.18 0.24 -Tunneling No No -Undermining/Tunneling No No -Circular Undermining No No -Wound/Ulcer Outcome Not Healed Not Healed -Ulcer Cleansing Rinsed/ Rinsed/ Irrigated with Irrigated with Saline Saline -Foul Odor after Cleansing No No -Bioengineered Tissue No No -Bleeding Controlled with Pressure Pressure -Treatment Response Procedure Procedure Tolerated Well Tolerated Well -Offloading Yes Yes -Type of Offloading Surgical Shoe Total Contact Cast (TCC) - Left ($) -Debridement - Subq, 1st 20sq cm Yes Yes Pain Scale: 0-10 Numeric Is Patient Pain Free? Yes Yes - Nurse 3 - General Ulcer D/C NN Start: 05/01/22 10:30 Freq: Status: Active Protocol: Activity Type Activity Date Activity User E-Sign Co-Sign Detail Recorded Client Recorded Date Recorded By Document 05/01/22 11:08 [email or web address] [id number] 05/01/22 11:09 LAZRAO 05/01/22 11:08 Wound Care Nurse 3 #1- L GR TOE -Ulcer Cleansing Rinsed/ Irrigated with Saline -Primary Dressing Applied Aquacel AG 4x4 -Primary Dressing Covered/Secured with Dry Gauze & Roll Gauze, Secured with Tape -Aquacel AG 4x4 1 Pain Scale: 0-10 Numeric Is Patient Pain Free? Yes - Visit Discharge Discharge Condition Stable Ambulatory Status Ambulatory Transportation Private Auto Medication Reconcilliation completed & Yes provided to patient/care provider Clinical Summary of Care Provided Yes Assessment/Plan Assessment/Plan (1) Diabetic foot infection: CODE(S): E11.628 - 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 other skin complications; L08.9 - Local infection of the skin and subcutaneous tissue, unspecified (2) Diabetic peripheral neuropathy: CODE(S): E11.42 - 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 diabetic polyneuropathy (3) 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 foot ulcer: CODE(S): E11.621 - 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 foot ulcer; L97.509 - Non-pressure chronic ulcer of other part of unspecified foot with unspecified severity QUALIFIERS: Diabetes mellitus fdc insulin use: unspecified manufacturers service representative insulin use status Qualified Code(s): E11.621 - 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 foot ulcer; L97.509 - Non-pressure chronic ulcer of other part of unspecified foot with unspecified severity (4) Non-pressure chronic ulcer of other part of left foot with fat layer exposed: CODE(S): L97.522 - Non-pressure chronic ulcer of other part of left foot with fat layer exposed PLAN: Patient examined evaluated, all findings cussed patient detail. Patient over the past week was admitted to the hospital for IV antibiotics and MRI. MRI was negative for osteomyelitis. Patient discharged on oral antibiotics. Doxycycline for MSSA. Patient awaiting infectious disease follow-up. It was discussed in detail with patient performing an elective arthroplasty of the hallux IPJ to offload the IPJ ulceration and allow the wound to heal more quickly and prevent recurrence in the future. Patient wishes to proceed with this at this time. We will initiate the process in getting him medically cleared and authorizing his procedure. This is to the left side. Wound today was excisionally debrided down to including level subcutaneous tissue of all nonviable tissue without incident patient tolerated procedure well. Was performed with a 15 blade. Hemostasis obtained with light compression. No anesthesia due to neuropathy. A well-padded total contact cast was applied to left lower extremity to protect the site and prevent any worsening. Patient will follow up in 1 week.
[2022-05-15 08:20] VITALS: BP 142/76; PULSE 70; TEMP 35.7; BMI 30.1
--- NOTE | 2022-05-15 08:54 | PN.PCM_ITS ---
History of Present Illness Date of Service: 05/15/22 Progress of Wound: This 61-year-old male presents to clinic after recently being discharged from the hospital for a left hallux wound. Patient is a type II diabetic with previous end-stage renal disease which was treated with a renal transplant. Patient does note recent A1c of 8.9 and notes that he is attempting to better control his blood sugar. Patient denies any constitutional symptoms at this time and has been taking Augmentin for a left hallux cellulitis. Patient has been wearing a surgical shoe and attempting heel weightbearing, but has continued working at his daily job at [employer]. Patient has been taking Augmentin and notes continued resolution of his left great toe infection. Objective Data Objective Data Vital Signs: Vital Signs Temp Pulse Resp BP 96.2 F L 70 16 142/76 H 05/15/22 08:20 05/15/22 08:20 05/08/22 11:12 05/15/22 08:20 Weight: 95.254 kg Body Mass Index (BMI) 30.1 Lab / Micro Data Micro: Microbiology 05/01/22 10:55 Wound Abcess - Toe Gram Stain - Final 05/01/22 10:55 Wound Abcess - Toe Wound Culture - Final Staphylococcus aureus 05/01/22 10:55 Wound Abcess - Toe Anaerobic Culture - Final No anaerobic bacteria isolated. Physical Exam Narrative Patient is alert oriented to person place and time. Patient is ambulating in a surgical shoe to his left lower extremity. Normal shoe gear on the right side. Vascular: Dorsalis pedis and posterior tibial pulses palpable 2 out of 4 to bilateral lower extremity. Capillary fill time brisk to lesser digits. Digital hair growth noted. No atrophic skin changes noted. Resolving edema to the left foot. Some increased warmth the left hallux. Neurologic: Light touch protective sensation diminished bilateral feet. Dermatologic: Full-thickness ulceration to plantar medial left hallux IPJ. Mild periwound erythema and edema. No underlying fluctuance or crepitance deep probing. No undermining. Wound base granular pre and postdebridement. Pre and postdebridement measurements document nursing notes. Musculoskeletal: Left hallux rigidus deformity which is likely contributory to the left medial hallucal IPJ ulceration. Muscular strength full to bilateral lower extremity compartments. Debridement Note Debridement Note Post-Debridement Measurements and Additional Note: Post-Debridement Measurements/Treatment WC - Nurse 1 - General Ulcer Assessment Start: 05/01/22 10:30 Freq: Status: Active Protocol: [email or web address] Activity Type Activity Date Activity User E-sign Co-sign Detail Recorded Client Recorded Date Recorded By Document 05/01/22 10:30 AK [id number] 05/01/22 10:32 AK Document 05/08/22 11:12 ML [id number] 05/08/22 11:15 ML Document 05/15/22 08:20 AK [id number] 05/15/22 08:28 AK 05/01/22 05/08/22 05/15/22 10:30 11:12 08:20 WC - Today's Visit Information Type of service Follow-up Visit Follow-up Visit Follow-up Visit (Physician/PHARMACY DISTRICT MANAGER (Physician/PHARMACY DISTRICT MANAGER (Physician/PHARMACY DISTRICT MANAGER ) ) ) Arrival Mode Ambulatory Ambulatory Ambulatory Transfer Assistance None Patient Identification Verified (Name & Yes Yes Yes ) Patient Requires Transmission-Based No No No Precautions Safety Precautions NA NA NA Finger Stick Blood Sugar(mg/dl) (if 96 indicated): Blood Sugar Done During this Visit Height and Weight Body Mass Index (BMI) 30.1 30.1 30.1 BMI Classification Obese Obese Obese Vital Signs Temperature (97.8 F-99.1 F) 96.9 F L 97.1 F L 96.2 F L Temperature Source Temporal Temporal Temporal Pulse Rate (60-100) 67 63 70 Pulse Location Monitor Monitor Monitor Respiratory Rate (12-18) 16 Respiratory rate source Observation Blood Pressure (90/60-120/80) 137/70 H 127/69 H 142/76 H Blood Pressure Mean (mm Hg) 92 88 98 Source Monitor Monitor Monitor Position Sitting Blood Pressure Location Left Arm History Since Last Visit- (Skip if this is Patient's initial visit) Have you changed medications since your No No No last visit? Any new allergies or adverse reactions No No No Had a fall/change in ADL's that may No No No increase risk of falls Signs or symptoms of abuse and/or No No No neglect since last visit Have you been in the hospital since your Yes No No last visit? Has dressing in place as prescribed Yes Yes Yes Has compression in place as prescribed No No Yes Has offloadiing in place as prescribed No Yes Yes Experienced any changes in pain level or No No No management Left Footwear Surgical Shoe Regular Shoe Regular Shoe with pressure relief insole Right Footwear Regular Shoe Surgical Shoe Removable Cast with pressure Walker/Walking relief insole Boot Pain Scale: 0-10 Numeric Is Patient Pain Free? Yes Yes Yes WC - Nurse 1 - General Ulcer Measurement Start: 05/01/22 10:30 Freq: Status: Active Protocol: Activity Type Activity Date Activity User E-sign Co-sign Detail Recorded Client Recorded Date Recorded By Document 05/01/22 10:30 AK [id number] 05/01/22 10:32 AK Document 05/08/22 11:12 ML [id number] 05/08/22 11:15 ML Document 05/15/22 08:20 AK [id number] 05/15/22 08:28 AK 05/01/22 05/08/22 05/15/22 10:30 11:12 08:20 Wound Center Nurse 1 #1- L GR TOE -Combined with other wound No No -Current Size (cm) - Length 0.2 0.3 0.1 -Current Size (cm) - Width 0.7 0.2 0.3 -Current Size (cm) - Depth 0.8 0.5 0.2 -Total Square Cm 0.14 0.06 0.03 -Date of Last Picture (Recall this 05/15/22 field) -Photo Taken No Yes -Epithelialization None Present -Tunneling No No -Undermining/Tunneling No No -Circular Undermining No No -Change in Wound Grade/Stage No No -Exudate Amt Small Medium Small -Exudate Type Serosanguineous Serous Serosanguineous -Wound Margin Distinct, Distinct, Distinct, Outline Outline Outline Attached Attached Attached -Granulation Amt Small (1-33%) Medium (34-66%) Small (1-33%) -Granulation Quality N/A [place] N/A -Slough/Fibrin No Yes Yes -Necrosis Amt Small (1-33%) Small (1-33%) None Present (0 %) -Necrotic Tissue Type Adherent Slough Adherent Slough -Structure Exposed N/A N/A -Texture (Angie-wound Skin Appearance) Assessed,Callus Assessed Assessed,Callus -Moisture (Angie-wound Skin Appearance) Assessed, Assessed No Abnormality, Maceration Assessed -Color (Angie-wound Skin Appearance) No Abnormality, Assessed No Abnormality, Assessed Assessed -Temperature (Angie-wound Skin No Abnormality No Abnormality No Abnormality Appearance) (Pt Warm) (Pt Warm) (Pt Warm) -Tenderness on Palpation (Angie-wound No No No Skin Appearance) -Ulcer Cleansing Rinsed/ Rinsed/ Soap and Water Irrigated with Irrigated with Saline Saline -Foul Odor after Cleansing No No No -Anesthetic Used 4% Lidocaine 5% Lidocaine 4% Lidocaine Solution Gel Solution Left Calf (cm) 34.4 Left Ankle (cm) 21.5 WC - Nurse 2 - General Ulcer CM Notes Start: 05/01/22 10:30 Freq: Status: Active Protocol: Activity Type Activity Date Activity User E-sign Co-sign Detail Recorded Client Recorded Date Recorded By Document 05/01/22 10:57 [id number] 05/01/22 10:58 Document 05/08/22 11:23 [id number] 05/08/22 11:31 Document 05/15/22 08:51 [id number] 05/15/22 08:53 05/01/22 05/08/22 05/15/22 10:57 11:23 08:51 Wound Center Nurse 2 #1- L GR TOE -Time 10:57 11:23 08:51 -Correct Patient Yes Yes Yes -Correct Side, Site, Position Yes Yes Yes -Correct Procedure Yes Yes Yes -Procedure Performed Yes Yes Yes -Type of Procedure Debridement Debridement Debridement -Clinical Debridement Subcutaneous Subcutaneous Subcutaneous -Tissue Removed Subcutaneous Subcutaneous Subcutaneous -Post Debridement (cm) - Length 0.3 0.3 0.4 -Post Debridement (cm) - Width 0.6 0.8 0.5 -Post Debridement (cm) - Depth 1.4 0.2 0.2 -Total Square (Post) (cm) 0.18 0.24 0.20 -Area of Debridement (cm) - Length 0.3 0.3 0.4 -Area of Debridement (cm) - Width 0.6 0.8 0.5 -Total Square (Area) (cm) 0.18 0.24 0.20 -Tunneling No No No -Undermining/Tunneling No No No -Circular Undermining No No No -Wound/Ulcer Outcome Not Healed Not Healed Not Healed -Ulcer Cleansing Rinsed/ Rinsed/ Rinsed/ Irrigated with Irrigated with Irrigated with Saline Saline Saline -Foul Odor after Cleansing No No No -Bioengineered Tissue No No No -Bleeding Controlled with Pressure Pressure Pressure -Treatment Response Procedure Procedure Procedure Tolerated Well Tolerated Well Tolerated Well -Offloading Yes Yes Yes -Type of Offloading Surgical Shoe Total Contact Total Contact Cast (TCC) - Cast (TCC) - Left ($) Left ($) -Debridement - Subq, 1st 20sq cm Yes Yes Yes Pain Scale: 0-10 Numeric Is Patient Pain Free? Yes Yes Yes - Nurse 3 - General Ulcer D/C NN Start: 05/01/22 10:30 Freq: Status: Active Protocol: Activity Type Activity Date Activity User E-sign Co-sign Detail Recorded Client Recorded Date Recorded By Document 05/01/22 11:08 LAZARO [id number] 05/01/22 11:09 LAZARO 05/01/22 11:08 Wound Care Nurse 3 #1- L GR TOE -Ulcer Cleansing Rinsed/ Irrigated with Saline -Primary Dressing Applied Aquacel AG 4x4 -Primary Dressing Covered/Secured with Dry Gauze & Roll Gauze, Secured with Tape -Aquacel AG 4x4 1 Pain Scale: 0-10 Numeric Is Patient Pain Free? Yes WC - Visit Discharge Discharge Condition Stable Ambulatory Status Ambulatory Transportation Private Auto Medication Reconcilliation completed & Yes provided to patient/care provider Clinical Summary of Care Provided Yes Assessment/Plan Assessment/Plan (1) Diabetic foot infection: CODE(S): E11.628 - 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 other skin complications; L08.9 - Local infection of the skin and subcutaneous tissue, unspecified (2) Diabetic peripheral neuropathy: CODE(S): E11.42 - 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 diabetic polyneuropathy (3) 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 foot ulcer: CODE(S): E11.621 - 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 foot ulcer; L97.509 - Non-pressure chronic ulcer of other part of unspecified foot with unspecified severity QUALIFIERS: Diabetes mellitus correction insulin use: unspecified correction insulin use status Qualified Code(s): E11.621 - 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 foot ulcer; L97.509 - Non-pressure chronic ulcer of other part of unspecified foot with unspecified severity (4) Non-pressure chronic ulcer of other part of left foot with fat layer exposed: CODE(S): L97.522 - Non-pressure chronic ulcer of other part of left foot with fat layer exposed PLAN: Patient examined evaluated, all findings cussed patient detail. Patient over the past week was admitted to the hospital for IV antibiotics and MRI. MRI was negative for osteomyelitis. Patient discharged on oral antibiotics. Doxycycline for MSSA. Patient awaiting infectious disease follow-up. It was discussed in detail with patient performing an elective arthroplasty of the hallux IPJ to offload the IPJ ulceration and allow the wound to heal more quickly and prevent recurrence in the future. Patient wishes to proceed with this at this time. We will initiate the process in getting him medically cleared and authorizing his procedure. This is to the left side. Wound today was excisionally debrided down to including level subcutaneous tissue of all nonviable tissue without incident patient tolerated procedure well. Was performed with a 15 blade. Hemostasis obtained with light compression. No anesthesia due to neuropathy. A well-padded total contact cast was applied to left lower extremity to protect the site and prevent any worsening. Patient will follow up in 1 week.
[2022-05-22 08:44] VITALS: BP 147/72; PULSE 62; RESP 17; TEMP 35.9; BMI 30.1
--- NOTE | 2022-05-22 09:25 | PN.PCM_ITS ---
History of Present Illness Date of Service: 05/22/22 Progress of Wound: This 61-year-old male presents to clinic for a left hallux ulceration. Patient is a type II diabetic with previous end-stage renal disease which was treated with a renal transplant. Patient does note recent A1c of 8.9 and notes that he is attempting to better control his blood sugar. Patient denies any constitutional symptoms at this time and has been taking Augmentin for a left hallux cellulitis. Patient has been a total contact cast. Patient off antibiotics denies any recurrence of infection at this time. Objective Data Objective Data Vital Signs: Vital Signs Temp Pulse Resp BP 96.7 F L 62 17 147/72 H 05/22/22 08:44 05/22/22 08:44 05/22/22 08:44 05/22/22 08:44 Weight: 95.254 kg Body Mass Index (BMI) 30.1 Lab / Micro Data Micro: Microbiology 05/01/22 10:55 Wound Abcess - Toe Gram Stain - Final 05/01/22 10:55 Wound Abcess - Toe Wound Culture - Final Staphylococcus aureus 05/01/22 10:55 Wound Abcess - Toe Anaerobic Culture - Final No anaerobic bacteria isolated. Physical Exam Narrative Patient is alert oriented to person place and time. Patient is ambulating in a surgical shoe to his left lower extremity. Normal shoe gear on the right side. Vascular: Dorsalis pedis and posterior tibial pulses palpable 2 out of 4 to bilateral lower extremity. Capillary fill time brisk to lesser digits. Digital hair growth noted. No atrophic skin changes noted. Resolving edema to the left foot. Some increased warmth the left hallux. Neurologic: Light touch protective sensation diminished bilateral feet. Dermatologic: Full-thickness ulceration to plantar medial left hallux IPJ. Mild periwound erythema and edema. No underlying fluctuance or crepitance deep probing. No undermining. Wound base granular pre and postdebridement. Pre and postdebridement measurements document nursing notes. Musculoskeletal: Left hallux rigidus deformity which is likely contributory to the left medial hallucal IPJ ulceration. Muscular strength full to bilateral lower extremity compartments. Debridement Note Debridement Note Post-Debridement Measurements and Additional Note: Post-Debridement Measurements/Treatment OLIVIER - Nurse 1 - General Ulcer Assessment Start: 05/01/22 10:30 Freq: Status: Active Protocol: WC.LOWEXT Activity Type Activity Date Activity User E-sign Co-sign Detail Recorded Client Recorded Date Recorded By Document 05/01/22 10:30 AK [id number] 05/01/22 10:32 AK Document 05/08/22 11:12 ML [id number] 05/08/22 11:15 ML Document 05/15/22 08:20 AK [id number] 05/15/22 08:28 AK Document 05/22/22 08:44 ML [id number] 05/22/22 08:56 ML 05/01/22 05/08/22 05/15/22 10:30 11:12 08:20 WC - Today's Visit Information Type of service Follow-up Visit Follow-up Visit Follow-up Visit (Physician/SEWER AND INSPECTOR (Physician/SEWER AND INSPECTOR (Physician/SEWER AND INSPECTOR ) ) ) Arrival Mode Ambulatory Ambulatory Ambulatory Transfer Assistance None Patient Identification Verified (Name & Yes Yes Yes ) Patient Requires Transmission-Based No No No Precautions Safety Precautions NA NA NA Finger Stick Blood Sugar(mg/dl) (if 96 indicated): Blood Sugar Done During this Visit Height and Weight Body Mass Index (BMI) 30.1 30.1 30.1 BMI Classification Obese Obese Obese Vital Signs Temperature (97.8 F-99.1 F) 96.9 F L 97.1 F L 96.2 F L Temperature Source Temporal Temporal Temporal Pulse Rate (60-100) 67 63 70 Pulse Location Monitor Monitor Monitor Respiratory Rate (12-18) 16 Respiratory rate source Observation Blood Pressure (90/60-120/80) 137/70 H 127/69 H 142/76 H Blood Pressure Mean (mm Hg) 92 88 98 Source Monitor Monitor Monitor Position Sitting Blood Pressure Location Left Arm History Since Last Visit- (Skip if this is Patient's initial visit) Have you changed medications since your No No No last visit? Any new allergies or adverse reactions No No No Had a fall/change in ADL's that may No No No increase risk of falls Signs or symptoms of abuse and/or No No No neglect since last visit Have you been in the hospital since your Yes No No last visit? Has dressing in place as prescribed Yes Yes Yes Has compression in place as prescribed No No Yes Has offloadiing in place as prescribed No Yes Yes Experienced any changes in pain level or No No No management Left Footwear Surgical Shoe Regular Shoe Regular Shoe with pressure relief insole Right Footwear Regular Shoe Surgical Shoe Removable Cast with pressure Walker/Walking relief insole Boot Pain Scale: 0-10 Numeric Is Patient Pain Free? Yes Yes Yes 05/22/22 08:44 WC - Today's Visit Information Type of service Follow-up Visit (Physician/SEWER AND INSPECTOR ) Arrival Mode Ambulatory Transfer Assistance None Patient Identification Verified (Name & Yes ) Patient Requires Transmission-Based No Precautions Safety Precautions NA Finger Stick Blood Sugar(mg/dl) (if indicated): Blood Sugar Height and Weight Body Mass Index (BMI) 30.1 BMI Classification Obese Vital Signs Temperature (97.8 F-99.1 F) 96.7 F L Temperature Source Temporal Pulse Rate (60-100) 62 Pulse Location Monitor Respiratory Rate (12-18) 17 Respiratory rate source Observation Blood Pressure (90/60-120/80) 147/72 H Blood Pressure Mean (mm Hg) 97 Source Monitor Position Sitting Blood Pressure Location Right Arm History Since Last Visit- (Skip if this is Patient's initial visit) Have you changed medications since your No last visit? Any new allergies or adverse reactions No Had a fall/change in ADL's that may No increase risk of falls Signs or symptoms of abuse and/or No neglect since last visit Have you been in the hospital since your No last visit? Has dressing in place as prescribed Yes Has compression in place as prescribed Yes Has offloadiing in place as prescribed Yes Experienced any changes in pain level or No management Left Footwear Regular Shoe Right Footwear Regular Shoe Pain Scale: 0-10 Numeric Is Patient Pain Free? Yes - Nurse 1 - General Ulcer Measurement Start: 05/01/22 10:30 Freq: Status: Active Protocol: Activity Type Activity Date Activity User E-sign Co-sign Detail Recorded Client Recorded Date Recorded By Document 05/01/22 10:30 AK [id number] 05/01/22 10:32 AK Document 05/08/22 11:12 ML [id number] 05/08/22 11:15 ML Document 05/15/22 08:20 AK [id number] 05/15/22 08:28 AK Document 05/22/22 08:44 ML [id number] 05/22/22 08:56 ML 05/01/22 05/08/22 05/15/22 10:30 11:12 08:20 Wound Center Nurse 1 #1- L GR TOE -Combined with other wound No No -Current Size (cm) - Length 0.2 0.3 0.1 -Current Size (cm) - Width 0.7 0.2 0.3 -Current Size (cm) - Depth 0.8 0.5 0.2 -Total Square Cm 0.14 0.06 0.03 -Date of Last Picture (Recall this 05/15/22 field) -Photo Taken No Yes -Epithelialization None Present -Tunneling No No -Undermining/Tunneling No No -Circular Undermining No No -Change in Wound Grade/Stage No No -Exudate Amt Small Medium Small -Exudate Type Serosanguineous Serous Serosanguineous -Wound Margin Distinct, Distinct, Distinct, Outline Outline Outline Attached Attached Attached -Granulation Amt Small (1-33%) Medium (34-66%) Small (1-33%) -Granulation Quality N/A [place] N/A -Slough/Fibrin No Yes Yes -Necrosis Amt Small (1-33%) Small (1-33%) None Present (0 %) -Necrotic Tissue Type Adherent Slough Adherent Slough -Structure Exposed N/A N/A -Texture (Angie-wound Skin Appearance) Assessed,Callus Assessed Assessed,Callus -Moisture (Angie-wound Skin Appearance) Assessed, Assessed No Abnormality, Maceration Assessed -Color (Angie-wound Skin Appearance) No Abnormality, Assessed No Abnormality, Assessed Assessed -Temperature (Angie-wound Skin No Abnormality No Abnormality No Abnormality Appearance) (Pt Warm) (Pt Warm) (Pt Warm) -Tenderness on Palpation (Angie-wound No No No Skin Appearance) -Ulcer Cleansing Rinsed/ Rinsed/ Soap and Water Irrigated with Irrigated with Saline Saline -Foul Odor after Cleansing No No No -Anesthetic Used 4% Lidocaine 5% Lidocaine 4% Lidocaine Solution Gel Solution Right Calf (cm) Right Ankle (cm) Left Calf (cm) 34.4 Left Ankle (cm) 21.5 05/22/22 08:44 Wound Center Nurse 1 #1- L GR TOE -Combined with other wound -Current Size (cm) - Length 0.1 -Current Size (cm) - Width 0.1 -Current Size (cm) - Depth 0.1 -Total Square Cm 0.01 -Date of Last Picture (Recall this field) -Photo Taken -Epithelialization -Tunneling -Undermining/Tunneling -Circular Undermining -Change in Wound Grade/Stage -Exudate Amt None Present -Exudate Type -Wound Margin Distinct, Outline Attached -Granulation Amt None Present (0 %) -Granulation Quality -Slough/Fibrin No -Necrosis Amt None Present (0 %) -Necrotic Tissue Type Adherent Slough -Structure Exposed -Texture (Angie-wound Skin Appearance) Assessed -Moisture (Angie-wound Skin Appearance) Assessed -Color (Angie-wound Skin Appearance) Assessed -Temperature (Angie-wound Skin No Abnormality Appearance) (Pt Warm) -Tenderness on Palpation (Angie-wound No Skin Appearance) -Ulcer Cleansing Rinsed/ Irrigated with Saline -Foul Odor after Cleansing No -Anesthetic Used 4% Lidocaine Solution Right Calf (cm) 34.5 Right Ankle (cm) 27 Left Calf (cm) Left Ankle (cm) WC - Nurse 2 - General Ulcer CM Notes Start: 05/01/22 10:30 Freq: Status: Active Protocol: Activity Type Activity Date Activity User E-sign Co-sign Detail Recorded Client Recorded Date Recorded By Document 05/01/22 10:57 [id number] 05/01/22 10:58 Document 05/08/22 11:23 [id number] 05/08/22 11:31 Document 05/15/22 08:51 [id number] 05/15/22 08:53 Document 05/22/22 09:12 [id number] 05/22/22 09:16 05/01/22 05/08/22 05/15/22 10:57 11:23 08:51 Wound Center Nurse 2 #1- L GR TOE -Time 10:57 11:23 08:51 -Correct Patient Yes Yes Yes -Correct Side, Site, Position Yes Yes Yes -Correct Procedure Yes Yes Yes -Procedure Performed Yes Yes Yes -Type of Procedure Debridement Debridement Debridement -Clinical Debridement Subcutaneous Subcutaneous Subcutaneous -Tissue Removed Subcutaneous Subcutaneous Subcutaneous -Post Debridement (cm) - Length 0.3 0.3 0.4 -Post Debridement (cm) - Width 0.6 0.8 0.5 -Post Debridement (cm) - Depth 1.4 0.2 0.2 -Total Square (Post) (cm) 0.18 0.24 0.20 -Area of Debridement (cm) - Length 0.3 0.3 0.4 -Area of Debridement (cm) - Width 0.6 0.8 0.5 -Total Square (Area) (cm) 0.18 0.24 0.20 -Tunneling No No No -Undermining/Tunneling No No No -Circular Undermining No No No -Wound/Ulcer Outcome Not Healed Not Healed Not Healed -Ulcer Cleansing Rinsed/ Rinsed/ Rinsed/ Irrigated with Irrigated with Irrigated with Saline Saline Saline -Foul Odor after Cleansing No No No -Bioengineered Tissue No No No -Bleeding Controlled with Pressure Pressure Pressure -Treatment Response Procedure Procedure Procedure Tolerated Well Tolerated Well Tolerated Well -Offloading Yes Yes Yes -Type of Offloading Surgical Shoe Total Contact Total Contact Cast (TCC) - Cast (TCC) - Left ($) Left ($) -Debridement - Subq, 1st 20sq cm Yes Yes Yes Pain Scale: 0-10 Numeric Is Patient Pain Free? Yes Yes Yes 05/22/22 09:12 Wound Center Nurse 2 #1- L GR TOE -Time 09:13 -Correct Patient Yes -Correct Side, Site, Position Yes -Correct Procedure Yes -Procedure Performed No -Type of Procedure -Clinical Debridement -Tissue Removed -Post Debridement (cm) - Length 0.1 -Post Debridement (cm) - Width 0.1 -Post Debridement (cm) - Depth 0.1 -Total Square (Post) (cm) 0.01 -Area of Debridement (cm) - Length -Area of Debridement (cm) - Width -Total Square (Area) (cm) -Tunneling No -Undermining/Tunneling No -Circular Undermining No -Wound/Ulcer Outcome Not Healed -Ulcer Cleansing -Foul Odor after Cleansing -Bioengineered Tissue -Bleeding Controlled with -Treatment Response -Offloading -Type of Offloading -Debridement - Subq, 1st 20sq cm Pain Scale: 0-10 Numeric Is Patient Pain Free? Yes WC - Nurse 3 - General Ulcer D/C NN Start: 05/01/22 10:30 Freq: Status: Active Protocol: Activity Type Activity Date Activity User E-sign Co-sign Detail Recorded Client Recorded Date Recorded By Document 05/01/22 11:08 AK [id number] 05/01/22 11:09 AK Document 05/15/22 09:31 MW [id number] 05/15/22 09:32 MW Document 05/22/22 09:22 AK [id number] 05/22/22 09:25 AK 05/01/22 05/15/22 05/22/22 11:08 09:31 09:22 Wound Care Nurse 3 #1- L GR TOE -Ulcer Cleansing Rinsed/ Rinsed/ Rinsed/ Irrigated with Irrigated with Irrigated with Saline Saline Saline -Foul Odor after Cleansing No No -Negative Pressure Wound Therapy N/A N/A -Primary Dressing Applied Aquacel AG 4x4 Aquacel AG 2x2 -Primary Dressing Covered/Secured with Dry Gauze & Dry Gauze, Dry Gauze Roll Gauze, Secured with Secured with Tape Tape -Other Covering TCC -Aquacel AG 4x4 1 -Aquacel AG 2x2 1 Left -Lotion applied to leg before Yes No compression wrap -Stockings No -Other TCC Treatment Response Procedure Tolerated Well Pain Scale: 0-10 Numeric Is Patient Pain Free? Yes Yes Yes Teaching: Wound Center Dressing Your Wound -Person Taught Patient -Teaching Method Discussion -Response to teaching Verbalize understanding WC - Visit Discharge Discharge Condition Stable Stable Stable Ambulatory Status Ambulatory Ambulatory Ambulatory Transportation Private Auto Private Auto Private Auto Accompanied by Medication Reconcilliation completed & Yes No Yes provided to patient/care provider Clinical Summary of Care Provided Yes Yes Yes Assessment/Plan Assessment/Plan (1) Diabetic foot infection: CODE(S): E11.628 - 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 other skin complications; L08.9 - Local infection of the skin and subcutaneous tissue, unspecified (2) Diabetic peripheral neuropathy: CODE(S): E11.42 - 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 diabetic polyneuropathy (3) 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 foot ulcer: CODE(S): E11.621 - 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 foot ulcer; L97.509 - Non-pressure chronic ulcer of other part of unspecified foot with unspecified severity QUALIFIERS: Diabetes mellitus ad terminal makeup operator insulin use: unspecified penitentiary insulin use status Qualified Code(s): E11.621 - 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 foot ulcer; L97.509 - Non-pressure chronic ulcer of other part of unspecified foot with unspecified severity (4) Non-pressure chronic ulcer of other part of left foot with fat layer exposed: CODE(S): L97.522 - Non-pressure chronic ulcer of other part of left foot with fat layer exposed PLAN: Patient examined evaluated, all findings cussed patient detail. Wound improved significantly today, nearly healed. Patient patient wishes to delay any surgical intervention at this time. Total contact cast was discontinued. Wound site redressed with Betadine paint gauze and paper tape. Patient will perform this dressing change daily. Patient will offload left hallux ulceration using surgical shoe with a custom cut offloading pad to offload the distal medial hallux. Patient will follow up in 1 week. We will have our office contact patient regarding fitting for diabetic shoes.
== END 2022-05-24 23:59 | disposition home or self-care (01) ==
LOC: WC 09:00
PROVIDERS: PCP Family Medicine; Visit Provider Podiatrist
DX: E11.621 Type 2 diabetes mellitus with foot ulcer (principal); E11.51 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 diabetic peripheral angiopathy without gangrene; L97.522 Non-pressure chronic ulcer of other part of left foot with fat layer exposed; E11.42 Type 2 diabetes mellitus with diabetic polyneuropathy; E11.22 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 diabetic chronic kidney disease; E11.628 Type 2 diabetes mellitus with other skin complications; N18.6 End stage renal disease; Z94.0 Kidney transplant status; L08.9 Local infection of the skin and subcutaneous tissue, unspecified
CPT/HCPCS: 11042; 29445; 87070; 87075; 87077; 87186; 87205; 87640; 99213; G0463

== ENCOUNTER 2022-06-19 09:00 | Outpatient (RCR) | payer MEDICARE, SELFPAY ==
[2022-05-25 00:43] VITALS: BP 147/72; PULSE 62; RESP 17; TEMP 35.9; BMI 30.1
[2022-05-29 08:25] VITALS: BP 126/61; PULSE 67; RESP 16; TEMP 36.1; BMI 30.1
--- NOTE | 2022-05-29 08:50 | PN.PCM_ITS ---
History of Present Illness Date of Service: 05/29/22 Progress of Wound: This 61-year-old male presents to clinic for a left hallux ulceration. Patient is a type II diabetic with previous end-stage renal disease which was treated with a renal transplant. Patient does note recent A1c of 8.9 and notes that he is attempting to better control his blood sugar. Patient denies any constitutional symptoms at this time and has been taking Augmentin for a left hallux cellulitis. Patient has been offloading in a surgical shoe. Notes that this has not been working well. Patient notes he called the on-call captain fishing vessel on Saturday this past weekend due to some redness. No antibiotics given. Denies constitutional's notes minimal drainage from site. Objective Data Objective Data Vital Signs: Vital Signs Temp Pulse Resp BP O2 Del Method 96.9 F L 67 16 126/61 H Room Air 05/29/22 08:25 05/29/22 08:25 05/29/22 08:25 05/29/22 08:25 05/29/22 08:25 Oxygen Delivery Method Room Air Weight: 95.254 kg Body Mass Index (BMI) 30.1 Physical Exam Narrative Patient is alert oriented to person place and time. Patient is ambulating in a surgical shoe to his left lower extremity. Normal shoe gear on the right side. Vascular: Dorsalis pedis and posterior tibial pulses palpable 2 out of 4 to bilateral lower extremity. Capillary fill time brisk to lesser digits. Digital hair growth noted. No atrophic skin changes noted. Resolving edema to the left foot. Some increased warmth the left hallux. Neurologic: Light touch protective sensation diminished bilateral feet. Dermatologic: Full-thickness ulceration to plantar medial left hallux IPJ. Mild periwound erythema and edema. No underlying fluctuance or crepitance deep probing. No undermining. Wound base granular pre and postdebridement. Pre and postdebridement measurements document nursing notes. Musculoskeletal: Left hallux rigidus deformity which is likely contributory to the left medial hallucal IPJ ulceration. Muscular strength full to bilateral lower extremity compartments. Debridement Note Debridement Note Post-Debridement Measurements and Additional Note: Post-Debridement Measurements/Treatment OLIVIER - Nurse 1 - General Ulcer Assessment Start: 05/29/22 08:25 Freq: Status: Active Protocol: KALINEXT Activity Type Activity Date Activity User E-sign Co-sign Detail Recorded Client Recorded Date Recorded By Document 05/29/22 08:[address] [facility] [id number] 05/29/22 08:[address] [facility] 05/29/22 08:25 - Today's Visit Information Type of service Follow-up Visit (Physician/SUPERVISOR HAND SILVERING ) Arrival Mode Ambulatory Transfer Assistance None Accompanied by Patient Identification Verified (Name & Yes ) Patient Requires Transmission-Based No Precautions Height and Weight Body Mass Index (BMI) 30.1 BMI Classification Obese Vital Signs Temperature (97.8 F-99.1 F) 96.9 F L Temperature Source Temporal Pulse Rate (60-100) 67 Pulse Location Monitor Respiratory Rate (12-18) 16 Respiratory rate source Observation Oxygen Delivery Method Room Air Blood Pressure (90/60-120/80) 126/61 H Blood Pressure Mean (mm Hg) 82 Source Monitor Position Sitting Blood Pressure Location Right Arm History Since Last Visit- (Skip if this is Patient's initial visit) Have you changed medications since your No last visit? Any new allergies or adverse reactions No Had a fall/change in ADL's that may No increase risk of falls Signs or symptoms of abuse and/or No neglect since last visit Have you been in the hospital since your No last visit? Has dressing in place as prescribed Yes Has compression in place as prescribed N/A Has offloadiing in place as prescribed Yes Experienced any changes in pain level or No management Left Footwear Surgical Shoe with pressure relief insole Right Footwear Regular Shoe Pain Scale: 0-10 Numeric Is Patient Pain Free? Yes - Nurse 1 - General Ulcer Measurement Start: 05/29/22 08:25 Freq: Status: Active Protocol: Activity Type Activity Date Activity User E-sign Co-sign Detail Recorded Client Recorded Date Recorded By Document 05/29/22 08:[address] [facility] [id number] 05/29/22 08:[address] [facility] 05/29/22 08:25 Wound Center Nurse 1 #1- L GR TOE -Combined with other wound No -Current Size (cm) - Length 0.1 -Current Size (cm) - Width 0.4 -Current Size (cm) - Depth 0.3 -Total Square Cm 0.04 -Epithelialization None Present -Tunneling No -Undermining/Tunneling No -Circular Undermining No -Exudate Amt Medium -Exudate Type Serosanguineous -Wound Margin Distinct, Outline Attached -Granulation Amt Large (67-100%) -Granulation Quality Red -Slough/Fibrin No -Necrosis Amt None Present (0 %) -Texture (Angie-wound Skin Appearance) Assessed, Localized Edema ,Scarring -Moisture (Angie-wound Skin Appearance) Assessed, Maceration -Color (Angie-wound Skin Appearance) Assessed, Erythema,Palor -Temperature (Angie-wound Skin No Abnormality Appearance) (Pt Warm) -Tenderness on Palpation (Angie-wound No Skin Appearance) -Ulcer Cleansing Rinsed/ Irrigated with Saline -Foul Odor after Cleansing No -Anesthetic Used 4% Lidocaine Solution WC - Nurse 2 - General Ulcer CM Notes Start: 05/29/22 08:25 Freq: Status: Active Protocol: Activity Type Activity Date Activity User E-sign Co-sign Detail Recorded Client Recorded Date Recorded By Document 05/29/22 08:41 MW [id number] 05/29/22 08:48 MW 05/29/22 08:41 Wound Center Nurse 2 -Time 08:42 -Correct Patient Yes -Correct Side, Site, Position Yes -Correct Procedure Yes -Procedure Performed Yes -Type of Procedure Debridement -Clinical Debridement Subcutaneous -Tissue Removed Subcutaneous -Post Debridement (cm) - Length 0.2 -Post Debridement (cm) - Width 0.6 -Post Debridement (cm) - Depth 0.3 -Total Square (Post) (cm) 0.12 -Area of Debridement (cm) - Length 0.2 -Area of Debridement (cm) - Width 0.6 -Total Square (Area) (cm) 0.12 -Tunneling No -Undermining/Tunneling No -Circular Undermining No -Wound/Ulcer Outcome Not Healed -Ulcer Cleansing Rinsed/ Irrigated with Saline -Foul Odor after Cleansing No -Bioengineered Tissue No -Bleeding Controlled with Pressure -Treatment Response Procedure Tolerated Well -Offloading No -Debridement - Subq, 1st 20sq cm Yes Pain Scale: 0-10 Numeric Is Patient Pain Free? Yes Assessment/Plan Assessment/Plan (1) Diabetic foot infection: CODE(S): E11.628 - 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 other skin complications; L08.9 - Local infection of the skin and subcutaneous tissue, unspecified (2) Diabetic peripheral neuropathy: CODE(S): E11.42 - 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 diabetic polyneuropathy (3) 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 foot ulcer: CODE(S): E11.621 - 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 foot ulcer; L97.509 - Non-pressure chronic ulcer of other part of unspecified foot with unspecified severity QUALIFIERS: Diabetes mellitus buttermaker insulin use: unspecified residential insulin use status Qualified Code(s): E11.621 - 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 foot ulcer; L97.509 - Non-pressure chronic ulcer of other part of unspecified foot with unspecified severity (4) Non-pressure chronic ulcer of other part of left foot with fat layer ex posed: CODE(S): L97.522 - Non-pressure chronic ulcer of other part of left foot with fat layer exposed PLAN: Patient examined evaluated, all findings cussed patient detail. Wound improved significantly today, nearly healed. Wound was excisionally debrided down to including level of subcutaneous tissue to left hallux of all nonviable tissue pre and postdebridement measurements document nursing note hemostasis today with light compression anesthesia not required due to neuropathy patient tolerated procedure well. Patient patient wishes to delay any surgical intervention at this time. Total contact cast was applied at this time. Wound site redressed with Betadine paint gauze and paper tape. Patient will perform this dressing change daily. Patient will offload left hallux ulceration with total contact cast. Patient will follow up in 1 week. We will have our office contact patient regarding fitting for diabetic shoes.
[2022-06-05 09:01] VITALS: BP 135/63; PULSE 70; TEMP 35.7; BMI 30.1
--- NOTE | 2022-06-05 09:53 | PCM.WC.PN ---
History of Present Illness Date of Service: 06/05/22 Progress of Wound: This 61-year-old male presents to clinic for a left hallux ulceration. Patient is a type II diabetic with previous end-stage renal disease which was treated with a renal transplant. Patient does note recent A1c of 8.9 and notes that he is attempting to better control his blood sugar. Patient denies any constitutional symptoms at this time and has been taking Augmentin for a left hallux cellulitis. Patient has been offloading in a surgical shoe. Notes that this has not been working well. Patient notes he called the on-call hand compositor on Saturday this past weekend due to some redness. No antibiotics given. Denies constitutional's notes minimal drainage from site. Objective Data Objective Data Vital Signs: Vital Signs Temp Pulse Resp BP O2 Del Method 96.2 F L 70 16 135/63 H Room Air 06/05/22 09:01 06/05/22 09:01 05/29/22 08:25 06/05/22 09:01 05/29/22 08:25 Oxygen Delivery Method Room Air Weight: 95.254 kg Body Mass Index (BMI) 30.1 Physical Exam Narrative Patient is alert oriented to person place and time. Patient is ambulating in a surgical shoe to his left lower extremity. Normal shoe gear on the right side. Vascular: Dorsalis pedis and posterior tibial pulses palpable 2 out of 4 to bilateral lower extremity. Capillary fill time brisk to lesser digits. Digital hair growth noted. No atrophic skin changes noted. Resolving edema to the left foot. Some increased warmth the left hallux. Neurologic: Light touch protective sensation diminished bilateral feet. Dermatologic: Full-thickness ulceration to plantar medial left hallux IPJ. Mild periwound erythema and edema. No underlying fluctuance or crepitance deep probing. No undermining. Wound base granular pre and postdebridement. Pre and postdebridement measurements document nursing notes. Musculoskeletal: Left hallux rigidus deformity which is likely contributory to the left medial hallucal IPJ ulceration. Muscular strength full to bilateral lower extremity compartments. Debridement Note Debridement Note Post-Debridement Measurements and Additional Note: Post-Debridement Measurements/Treatment OLIVIER - Nurse 1 - General Ulcer Assessment Start: 05/29/22 08:25 Freq: Status: Active Protocol: KALINEXT Activity Type Activity Date Activity User E-sign Co-sign Detail Recorded Client Recorded Date Recorded By Document 05/29/22 08:25 [facility] [id number] 05/29/22 08:28 [facility] Document 06/05/22 09:01 [place] [id number] 06/05/22 09:07 [place] 05/29/22 06/05/22 08:25 09:01 - Today's Visit Information Type of service Follow-up Visit Follow-up Visit (Physician/INSPECTION SUPERVISOR (Physician/INSPECTION SUPERVISOR ) ) Arrival Mode Ambulatory Ambulatory Transfer Assistance None Accompanied by Patient Identification Verified (Name & Yes Yes ) Patient Requires Transmission-Based No No Precautions Safety Precautions NA Height and Weight Body Mass Index (BMI) 30.1 30.1 BMI Classification Obese Obese Vital Signs Temperature (97.8 F-99.1 F) 96.9 F L 96.2 F L Temperature Source Temporal Temporal Pulse Rate (60-100) 67 70 Pulse Location Monitor Monitor Respiratory Rate (12-18) 16 Respiratory rate source Observation Oxygen Delivery Method Room Air Blood Pressure (90/60-120/80) 126/61 H 135/63 H Blood Pressure Mean (mm Hg) 82 87 Source Monitor Monitor Position Sitting Blood Pressure Location Right Arm History Since Last Visit- (Skip if this is Patient's initial visit) Have you changed medications since your No No last visit? Any new allergies or adverse reactions No No Had a fall/change in ADL's that may No No increase risk of falls Signs or symptoms of abuse and/or No No neglect since last visit Have you been in the hospital since your No No last visit? Has dressing in place as prescribed Yes Yes Has compression in place as prescribed N/A Yes Has offloadiing in place as prescribed Yes Yes Experienced any changes in pain level or No No management Left Footwear Surgical Shoe Removable Cast with pressure Walker/Walking relief insole Boot Right Footwear Regular Shoe Regular Shoe Pain Scale: 0-10 Numeric Is Patient Pain Free? Yes Yes - Nurse 1 - General Ulcer Measurement Start: 05/29/22 08:25 Freq: Status: Active Protocol: Activity Type Activity Date Activity User E-sign Co-sign Detail Recorded Client Recorded Date Recorded By Document 05/29/22 08:25 [facility] [id number] 05/29/22 08:28 [facility] Document 06/05/22 09:01 SD [id number] 06/05/22 09:07 [place] 05/29/22 06/05/22 08:25 09:01 Wound Center Nurse 1 #1- L GR TOE -Combined with other wound No No -Current Size (cm) - Length 0.1 0.1 -Current Size (cm) - Width 0.4 0.4 -Current Size (cm) - Depth 0.3 0.3 -Total Square Cm 0.04 0.04 -Date of Last Picture (Recall this 06/05/22 field) -Photo Taken Yes -Epithelialization None Present -Tunneling No No -Undermining/Tunneling No No -Circular Undermining No No -Change in Wound Grade/Stage No -Exudate Amt Medium Medium -Exudate Type Serosanguineous Serosanguineous -Wound Margin Distinct, Distinct, Outline Outline Attached Attached -Granulation Amt Large (67-100%) Small (1-33%) -Granulation Quality Red N/A -Slough/Fibrin No Yes -Necrosis Amt None Present (0 Medium (34-66%) %) -Structure Exposed N/A -Texture (Angie-wound Skin Appearance) Assessed, Assessed,Callus Localized Edema ,Scarring -Moisture (Nagie-wound Skin Appearance) Assessed, No Abnormality, Maceration Assessed -Color (Angie-wound Skin Appearance) Assessed, No Abnormality, Erythema,Palor Assessed -Temperature (Angie-wound Skin No Abnormality No Abnormality Appearance) (Pt Warm) (Pt Warm) -Tenderness on Palpation (Angie-wound No No Skin Appearance) -Ulcer Cleansing Rinsed/ Rinsed/ Irrigated with Irrigated with Saline Saline -Foul Odor after Cleansing No No -Anesthetic Used 4% Lidocaine 5% Lidocaine Solution Gel WC - Nurse 2 - General Ulcer CM Notes Start: 05/29/22 08:25 Freq: Status: Active Protocol: Activity Type Activity Date Activity User E-sign Co-sign Detail Recorded Client Recorded Date Recorded By Document 05/29/22 08:41 MW [id number] 05/29/22 08:48 MW Edit Result 05/29/22 08:41 MW (1) [id number] 05/30/22 06:53 PL Document 06/05/22 09:21 SAAD [id number] 06/05/22 09:25 JF Edit Result 06/05/22 09:21 JF (2) [id number] 06/05/22 09:49 JF (1) #1- L GR TOE - Type of Offloading => Total Contact Cast => (TCC) - Left ($) (2) #1- L GR TOE - Type of Offloading Total Contact Cast => Camwalker (TCC) - Left ($) => 05/29/22 06/05/22 08:41 09:21 Wound Center Nurse 2 #1- L GR TOE -Time 08:42 09:22 -Correct Patient Yes Yes -Correct Side, Site, Position Yes Yes -Correct Procedure Yes Yes -Procedure Performed Yes Yes -Type of Procedure Debridement Debridement -Clinical Debridement Subcutaneous Subcutaneous -Tissue Removed Subcutaneous Subcutaneous -Post Debridement (cm) - Length 0.2 0.1 -Post Debridement (cm) - Width 0.6 0.2 -Post Debridement (cm) - Depth 0.3 0.1 -Total Square (Post) (cm) 0.12 0.02 -Area of Debridement (cm) - Length 0.2 0.1 -Area of Debridement (cm) - Width 0.6 0.2 -Total Square (Area) (cm) 0.12 0.02 -Tunneling No No -Undermining/Tunneling No No -Circular Undermining No No -Wound/Ulcer Outcome Not Healed Not Healed -Ulcer Cleansing Rinsed/ Rinsed/ Irrigated with Irrigated with Saline Saline -Foul Odor after Cleansing No No -Bioengineered Tissue No No -Bleeding Controlled with Pressure Pressure -Treatment Response Procedure Procedure Tolerated Well Tolerated Well -Offloading No Yes -Type of Offloading Total Contact Camwalker Cast (TCC) - Left ($) -Debridement - Subq, 1st 20sq cm Yes Yes Pain Scale: 0-10 Numeric Is Patient Pain Free? Yes Yes - Nurse 3 - General Ulcer D/C NN Start: 05/29/22 08:25 Freq: Status: Active Protocol: Activity Type Activity Date Activity User E-sign Co-sign Detail Recorded Client Recorded Date Recorded By Document 05/29/22 09:00 [facility] [id number] 05/29/22 09:01 BM Document 06/05/22 09:38 [facility] [id number] 06/05/22 09:39 BM 05/29/22 06/05/22 09:00 09:38 Wound Care Nurse 3 #1- L GR TOE -Ulcer Cleansing Rinsed/ Rinsed/ Irrigated with Irrigated with Saline Saline -Foul Odor after Cleansing No No -Primary Dressing Applied Aquacel AG 2x2, C Hydrogel ($) Mepilex Border -Primary Dressing Covered/Secured with Dry Gauze, Secured with Tape -Other Covering tcc undercast size 3 -Aquacel AG 2x2 1 -Mepilex Border 1 Treatment Response Procedure Procedure Tolerated Well Tolerated Well Pain Scale: 0-10 Numeric Is Patient Pain Free? Yes Yes WC - Visit Discharge Discharge Condition Stable Stable Ambulatory Status Ambulatory Ambulatory Transportation Private Auto Private Auto Accompanied by Assessment/Plan Assessment/Plan (1) Diabetic foot infection: CODE(S): E11.628 - 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 other skin complications; L08.9 - Local infection of the skin and subcutaneous tissue, unspecified (2) Diabetic peripheral neuropathy: CODE(S): E11.42 - 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 diabetic polyneuropathy (3) 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 foot ulcer: CODE(S): E11.621 - 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 foot ulcer; L97.509 - Non-pressure chronic ulcer of other part of unspecified foot with unspecified severity QUALIFIERS: Diabetes mellitus jail insulin use: unspecified jail insulin use status Qualified Code(s): E11.621 - 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 foot ulcer; L97.509 - Non-pressure chronic ulcer of other part of unspecified foot with unspecified severity (4) Non-pressure chronic ulcer of other part of left foot with fat layer exposed: CODE(S): L97.522 - Non-pressure chronic ulcer of other part of left foot with fat layer exposed PLAN: Patient examined evaluated, all findings cussed patient detail. Wound improved significantly today, nearly healed. Wound was excisionally debrided down to including level of subcutaneous tissue to left hallux of all nonviable tissue pre and postdebridement measurements document nursing note hemostasis today with light compression anesthesia not required due to neuropathy patient tolerated procedure well. Patient patient wishes to delay any surgical intervention at this time. Recommend better blood glucose control this was discussed with patient. Patient will transition to a cam walking boot for offloading purposes this will be dispensed by at my office of [phone]. Wound site redressed with Betadine paint gauze and paper tape. Patient will perform this dressing change daily. Patient will offload left hallux ulceration with total contact cast. Patient will follow up in 1 week. Patient was fitted for diabetic shoes and will transition to those upon wound healing.
[2022-06-19 09:01] VITALS: BP 115/59; PULSE 69; RESP 16; TEMP 35.9; BMI 30.1
--- NOTE | 2022-06-19 09:32 | PCM.WC.PN ---
History of Present Illness Date of Service: 06/19/22 Progress of Wound: This 61-year-old male presents to clinic for a left hallux ulceration. Patient is a type II diabetic with previous end-stage renal disease which was treated with a renal transplant. Patient does note recent A1c of 6.6 improved from 8.9 and notes that he is attempting to better control his blood sugar. Patient denies any constitutional symptoms at this time and has been taking Augmentin for a left hallux cellulitis. Patient has been offloading in a surgical shoe. Notes that this has not been working well. Denies constitutional's. No other complaints. Objective Data Objective Data Vital Signs: Vital Signs Temp Pulse Resp BP O2 Del Method 96.7 F L 69 16 115/59 L Room Air 06/19/22 09:01 06/19/22 09:01 06/19/22 09:01 06/19/22 09:01 06/19/22 09:01 Oxygen Delivery Method Room Air Weight: 95.254 kg Body Mass Index (BMI) 30.1 Physical Exam Narrative Patient is alert oriented to person place and time. Patient is ambulating in a surgical shoe to his left lower extremity. Normal shoe gear on the right side. Vascular: Dorsalis pedis and posterior tibial pulses palpable 2 out of 4 to bilateral lower extremity. Capillary fill time brisk to lesser digits. Digital hair growth noted. No atrophic skin changes noted. Resolving edema to the left foot. Some increased warmth the left hallux. Neurologic: Light touch protective sensation diminished bilateral feet. Dermatologic: Full-thickness ulceration to plantar medial left hallux IPJ. Mild periwound erythema and edema. No underlying fluctuance or crepitance deep probing. No undermining. Wound base granular pre and postdebridement. Pre and postdebridement measurements document nursing notes. Musculoskeletal: Left hallux rigidus deformity which is likely contributory to the left medial hallucal IPJ ulceration. Muscular strength full to bilateral lower extremity compartments. Debridement Note Debridement Note Post-Debridement Measurements and Additional Note: Post-Debridement Measurements/Treatment OLIVIER - Nurse 1 - General Ulcer Assessment Start: 05/29/22 08:25 Freq: Status: Active Protocol: OLIVIER.LOWEXT Activity Type Activity Date Activity User E-sign Co-sign Detail Recorded Client Recorded Date Recorded By Document 05/29/22 08:25 [facility] [id number] 05/29/22 08:28 BM Document 06/05/22 09:01 [place] [id number] 06/05/22 09:07 [place] Document 06/19/22 09:01 MW [id number] 06/19/22 09:09 MW 05/29/22 06/05/22 06/19/22 08:25 09:01 09:01 WC - Today's Visit Information Type of service Follow-up Visit Follow-up Visit Follow-up Visit (Physician/ELECTRONIC WARFARE SPECIALIST (Physician/ELECTRONIC WARFARE SPECIALIST (Physician/ELECTRONIC WARFARE SPECIALIST ) ) ) Arrival Mode Ambulatory Ambulatory Ambulatory Transfer Assistance None None Accompanied by Patient Identification Verified (Name & Yes Yes Yes ) Patient Requires Transmission-Based No No No Precautions Safety Precautions NA NA Finger Stick Blood Sugar(mg/dl) (if 117 indicated): Blood Sugar Stated by Patient Height and Weight Body Mass Index (BMI) 30.1 30.1 30.1 BMI Classification Obese Obese Obese Vital Signs Temperature (97.8 F-99.1 F) 96.9 F L 96.2 F L 96.7 F L Temperature Source Temporal Temporal Temporal Pulse Rate (60-100) 67 70 69 Pulse Location Monitor Monitor Monitor Respiratory Rate (12-18) 16 16 Respiratory rate source Observation Observation Oxygen Delivery Method Room Air Room Air Blood Pressure (90/60-120/80) 126/61 H 135/63 H 115/59 L Blood Pressure Mean (mm Hg) 82 87 77 Source Monitor Monitor Monitor Position Sitting Sitting Blood Pressure Location Right Arm Right Arm History Since Last Visit- (Skip if this is Patient's initial visit) Have you changed medications since your No No No last visit? Any new allergies or adverse reactions No No No Had a fall/change in ADL's that may No No No increase risk of falls Signs or symptoms of abuse and/or No No No neglect since last visit Have you been in the hospital since your No No No last visit? Has dressing in place as prescribed Yes Yes Yes Has compression in place as prescribed N/A Yes N/A Has offloadiing in place as prescribed Yes Yes Yes Experienced any changes in pain level or No No management Left Footwear Surgical Shoe Removable Cast Removable Cast with pressure Walker/Walking Walker/Walking relief insole Boot Boot Right Footwear Regular Shoe Regular Shoe Regular Shoe Pain Scale: 0-10 Numeric Is Patient Pain Free? Yes Yes Yes WC - Nurse 1 - General Ulcer Measurement Start: 05/29/22 08:25 Freq: Status: Active Protocol: Activity Type Activity Date Activity User E-sign Co-sign Detail Recorded Client Recorded Date Recorded By Document 05/29/22 08:25 [facility] [id number] 05/29/22 08:28 BM Document 06/05/22 09:01 AK [id number] 06/05/22 09:07 AK Document 06/19/22 09:01 MW [id number] 06/19/22 09:09 MW 05/29/22 06/05/22 06/19/22 08:25 09:01 09:01 Wound Center Nurse 1 #1- L GR TOE -Combined with other wound No No No -Current Size (cm) - Length 0.1 0.1 0.1 -Current Size (cm) - Width 0.4 0.4 0.1 -Current Size (cm) - Depth 0.3 0.3 0.1 -Total Square Cm 0.04 0.04 0.01 -Date of Last Picture (Recall this 06/05/22 06/19/22 field) -Photo Taken Yes Yes -Epithelialization None Present None Present -Tunneling No No No -Undermining/Tunneling No No No -Circular Undermining No No No -Change in Wound Grade/Stage No -Exudate Amt Medium Medium Small -Exudate Type Serosanguineous Serosanguineous Sanguineous -Wound Margin Distinct, Distinct, Outline Outline Attached Attached -Granulation Amt Large (67-100%) Small (1-33%) None Present (0 %) -Granulation Quality Red N/A N/A -Slough/Fibrin No Yes No -Necrosis Amt None Present (0 Medium (34-66%) Large (67-100%) %) -Necrotic Tissue Type Adherent Slough -Structure Exposed N/A N/A -Texture (Angie-wound Skin Appearance) Assessed, Assessed,Callus Assessed,Callus Localized Edema ,Scarring -Moisture (Angie-wound Skin Appearance) Assessed, No Abnormality, Assessed,Dry/ Maceration Assessed Scaly -Color (Angie-wound Skin Appearance) Assessed, No Abnormality, No Abnormality, Erythema,Palor Assessed Assessed -Temperature (Angie-wound Skin No Abnormality No Abnormality No Abnormality Appearance) (Pt Warm) (Pt Warm) (Pt Warm) -Tenderness on Palpation (Angie-wound No No No Skin Appearance) -Ulcer Cleansing Rinsed/ Rinsed/ Rinsed/ Irrigated with Irrigated with Irrigated with Saline Saline Saline -Foul Odor after Cleansing No No No -Anesthetic Used 4% Lidocaine 5% Lidocaine 4% Lidocaine Solution Gel Solution Lower Limb Edema Present Yes Left Calf (cm) 33.5 Left Ankle (cm) 21.0 WC - Nurse 2 - General Ulcer CM Notes Start: 05/29/22 08:25 Freq: Status: Active Protocol: Activity Type Activity Date Activity User E-sign Co-sign Detail Recorded Client Recorded Date Recorded By Document 05/29/22 08:41 MW [id number] 05/29/22 08:48 MW Edit Result 05/29/22 08:41 MW (1) [id number] 05/30/22 06:53 PL Document 06/05/22 09:21 JF [id number] 06/05/22 09:25 JF Edit Result 06/05/22 09:21 JF (2) [id number] 06/05/22 09:49 JF Document 06/19/22 09:26 JF [id number] 06/19/22 09:31 JF (1) #1- L GR TOE - Type of Offloading => Total Contact Cast => (TCC) - Left ($) (2) #1- L GR TOE - Type of Offloading Total Contact Cast => Camwalker (TCC) - Left ($) => 05/29/22 06/05/22 06/19/22 08:41 09:21 09:26 Wound Center Nurse 2 #1- L GR TOE -Time 08:42 09:22 09:26 -Correct Patient Yes Yes Yes -Correct Side, Site, Position Yes Yes Yes -Correct Procedure Yes Yes Yes -Procedure Performed Yes Yes Yes -Type of Procedure Debridement Debridement Debridement -Clinical Debridement Subcutaneous Subcutaneous Subcutaneous -Tissue Removed Subcutaneous Subcutaneous Subcutaneous -Post Debridement (cm) - Length 0.2 0.1 0.3 -Post Debridement (cm) - Width 0.6 0.2 0.2 -Post Debridement (cm) - Depth 0.3 0.1 0.1 -Total Square (Post) (cm) 0.12 0.02 0.06 -Area of Debridement (cm) - Length 0.2 0.1 0.3 -Area of Debridement (cm) - Width 0.6 0.2 0.2 -Total Square (Area) (cm) 0.12 0.02 0.06 -Tunneling No No No -Undermining/Tunneling No No No -Circular Undermining No No No -Wound/Ulcer Outcome Not Healed Not Healed Not Healed -Ulcer Cleansing Rinsed/ Rinsed/ Rinsed/ Irrigated with Irrigated with Irrigated with Saline Saline Saline -Foul Odor after Cleansing No No No -Bioengineered Tissue No No No -Bleeding Controlled with Pressure Pressure Pressure -Treatment Response Procedure Procedure Procedure Tolerated Well Tolerated Well Tolerated Well -Offloading No Yes Yes -Type of Offloading Total Contact Camwalker Camwalker Cast (TCC) - Left ($) -Debridement - Subq, 1st 20sq cm Yes Yes Yes Pain Scale: 0-10 Numeric Is Patient Pain Free? Yes Yes Yes - Nurse 3 - General Ulcer D/C NN Start: 05/29/22 08:25 Freq: Status: Active Protocol: Activity Type Activity Date Activity User E-sign Co-sign Detail Recorded Client Recorded Date Recorded By Document 05/29/22 09:00 [facility] [id number] 05/29/22 09:01 [facility] Document 06/05/22 09:38 [facility] [id number] 06/05/22 09:39 [facility] 05/29/22 06/05/22 09:00 09:38 Wound Care Nurse 3 #1- L GR TOE -Ulcer Cleansing Rinsed/ Rinsed/ Irrigated with Irrigated with Saline Saline -Foul Odor after Cleansing No No -Primary Dressing Applied Aquacel AG 2x2, C Hydrogel ($) Mepilex Border -Primary Dressing Covered/Secured with Dry Gauze, Secured with Tape -Other Covering tcc undercast size 3 -Aquacel AG 2x2 1 -Mepilex Border 1 Treatment Response Procedure Procedure Tolerated Well Tolerated Well Pain Scale: 0-10 Numeric Is Patient Pain Free? Yes Yes - Visit Discharge Discharge Condition Stable Stable Ambulatory Status Ambulatory Ambulatory Transportation Private Auto Private Auto Accompanied by Assessment/Plan Assessment/Plan (1) Diabetic foot infection: CODE(S): E11.628 - 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 other skin complications; L08.9 - Local infection of the skin and subcutaneous tissue, unspecified (2) Diabetic peripheral neuropathy: CODE(S): E11.42 - 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 diabetic polyneuropathy (3) 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 foot ulcer: CODE(S): E11.621 - 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 foot ulcer; L97.509 - Non-pressure chronic ulcer of other part of unspecified foot with unspecified severity QUALIFIERS: Diabetes mellitus pastrycook's assistant insulin use: unspecified detention insulin use status Qualified Code(s): E11.621 - 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 foot ulcer; L97.509 - Non-pressure chronic ulcer of other part of unspecified foot with unspecified severity (4) Non-pressure chronic ulcer of other part of left foot with fat layer exposed: CODE(S): L97.522 - Non-pressure chronic ulcer of other part of left foot with fat layer exposed PLAN: Patient examined evaluated, all findings cussed patient detail. Wound improved significantly today, nearly healed. Wound was excisionally debrided down to including level of subcutaneous tissue to left hallux of all nonviable tissue pre and postdebridement measurements document nursing note hemostasis today with light compression anesthesia not required due to neuropathy patient tolerated procedure well. Patient patient wishes to delay any surgical intervention at this time. Recommend better blood glucose control this was discussed with patient. Patient will continue heel weightbearing in cam boot.. Wound site redressed with Betadine paint gauze and paper tape. Patient will perform this dressing change daily. Patient will offload left hallux ulceration with total contact cast. Patient will follow up in 1 week. Patient was fitted for diabetic shoes and will transition to those upon wound healing. Discussed with patient performing elective hallux IPJ arthroplasty to offload the wound site. This would be an elective procedure. Inherent risks benefits discussed with patient. Patient will contact our office if he wishes to proceed.
== END 2022-06-24 23:59 | disposition home or self-care (01) ==
LOC: WC 09:00
PROVIDERS: PCP Family Medicine; Visit Provider Podiatrist
DX: E11.621 Type 2 diabetes mellitus with foot ulcer (principal); E11.51 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 diabetic peripheral angiopathy without gangrene; L97.522 Non-pressure chronic ulcer of other part of left foot with fat layer exposed; E11.42 Type 2 diabetes mellitus with diabetic polyneuropathy; E11.22 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 diabetic chronic kidney disease; E11.628 Type 2 diabetes mellitus with other skin complications; N18.6 End stage renal disease; Z94.0 Kidney transplant status; L08.9 Local infection of the skin and subcutaneous tissue, unspecified
CPT/HCPCS: 11042; 29445

== ENCOUNTER 2022-07-18 07:04 | Outpatient (RCR) | payer MEDICARE, SELFPAY ==
[2022-05-25 07:04] VITALS: BMI 28.1
[2022-07-18 07:48] LABS: Absolute Lymphocyte Count 1.22 X10^3/uL (0.83-4.51); Basophil# 0.07 X10^3/uL; Basophil% 0.6 % (0-1); Eosinophil# 0.23 X10^3/uL; Hematocrit 47.1 % (40-54); Hemoglobin 14.6 g/dL (13.0-16.5); Lymphocyte # 1.22 X10^3/ul (0.83-4.51); Lymphocyte % 10.5 % (19-41); Mean Corpuscular Hgb 26.3 pg (27.0-32.0); Mean Corpuscular Volume 84.7 fL (80-94); Mean Platelet Vol. 10.5 fl (6.2-12.0); Monocyte% 8.6 % (0-10); NRBC Flagged by Analyzer 0 % (0-5); Neutrophil # 9.03 X10^3/uL (2.7-7.7); Neutrophil % 77.4 % (47-70); Platelet Count 227 K/mm3 (150-450); RBC Distribution Width SD 43.1 fl (35.1-43.9); Red Blood Count 5.56 M/mm3 (4.6-6.2); White Blood Count 11.7 K/mm3 (4.4-11.0)
[2022-07-18 08:30] LABS: Protein, Urine (Random) 11.2 mg/dL (<11.9); Protein:Creat Ratio 203 mg/g CRE (0-200)
[2022-07-18 08:35] LABS: ALB/GLOB Ratio 1.1 RATIO (0.9-2.4); AST(SGOT) 12 U/L (15-37); Alanine Aminotransfer ALT/SGPT 21 U/L (16-61); Albumin, Serum 3.4 g/dL (3.2-5.0); Alkaline Phosphatase 116 U/L (45-117); Anion Gap 10 (5-15); BUN 46 mg/dL (7-18); Calcium,Total 8.4 mg/dL (8.5-10.1); Chloride 109 mmol/L (98-107); Cholesterol 121 mg/dL (200); Creatinine, Serum 2.09 mg/dL (0.70-1.30); EST Glomerular Filtration Rate 35 mL/min (>60); Est Glom Filt Rate - Afr Amer 42 mL/min (>60); Ferritin 382 ng/mL (26-388); Glucose 123 mg/dL (74-106); High Density Lipoprotein 30 mg/dL; Iron 44 ug/dL (65-175); Iron Binding Capacity,Total 223 ug/dL (250-450); Magnesium 1.6 mg/dL (1.6-2.6); Phosphorus 3.9 mg/dL (2.5-4.9); Potassium 3.2 mmol/L (3.5-5.1); Protein, Total 6.4 g/dL (6.4-8.2); Sodium Level 141 mmol/L (136-145); Triglycerides 190 mg/dL; Uric Acid 10.1 mg/dL (3.5-7.2); Very Low Density Lipoprotein 38 mg/dL (5-40)
[2022-07-21 13:45] LABS: Tacrolimus (FK506) 6.6 ng/mL (2.0-20.0); Transferrin 185 mg/dL (177-329)
== END 2022-07-18 18:00 | disposition home or self-care (01) ==
LOC: LAB 07:04
PROVIDERS: PCP Family Medicine
DX: Z09 Encounter for follow-up examination after completed treatment for conditions other than malignant neoplasm; E78.2 Mixed hyperlipidemia; D64.9 Anemia, unspecified; D72.9 Disorder of white blood cells, unspecified; R79.9 Abnormal finding of blood chemistry, unspecified; Z94.0 Kidney transplant status
CPT/HCPCS: 80053; 80061; 80197; 82570; 82728; 83540; 83550; 83735; 84100; 84156; 84466; 84550; 85025

== ENCOUNTER 2022-07-24 14:00 | Outpatient (RCR) | payer MEDICARE, SELFPAY ==
[2022-06-25 00:32] VITALS: BP 115/59; PULSE 69; RESP 16; TEMP 35.9; BMI 30.1
[2022-07-03 11:20] VITALS: BP 128/65; PULSE 73; RESP 18; TEMP 36.8; BMI 30.1
--- NOTE | 2022-07-03 12:07 | PN.PCM_ITS ---
History of Present Illness Date of Service: 07/03/22 Progress of Wound: This 61-year-old male presents to clinic for a left hallux ulceration. Patient is a type II diabetic with previous end-stage renal disease which was treated with a renal transplant. Patient does note recent A1c of 6.6 improved from 8.9 and notes that he is attempting to better control his blood sugar. Patient denies any constitutional symptoms at this time and has been taking Augmentin for a left hallux cellulitis. Patient has been offloading in a surgical shoe. Notes that this has not been working well. Denies constitutional's. No other complaints. Objective Data Objective Data Vital Signs: Vital Signs Temp Pulse Resp BP O2 Del Method 98.3 F 73 18 128/65 H Room Air 07/03/22 11:20 07/03/22 11:20 07/03/22 11:20 07/03/22 11:20 07/03/22 11:20 Oxygen Delivery Method Room Air Weight: 95.254 kg Body Mass Index (BMI) 30.1 Physical Exam Narrative Patient is alert oriented to person place and time. Patient is ambulating in a surgical shoe to his left lower extremity. Normal shoe gear on the right side. Vascular: Dorsalis pedis and posterior tibial pulses palpable 2 out of 4 to bilateral lower extremity. Capillary fill time brisk to lesser digits. Digital hair growth noted. No atrophic skin changes noted. Resolving edema to the left foot. Some increased warmth the left hallux. Neurologic: Light touch protective sensation diminished bilateral feet. Dermatologic: Full-thickness ulceration to plantar medial left hallux IPJ. Mild periwound erythema and edema. No underlying fluctuance or crepitance deep probing. No undermining. Wound base granular pre and postdebridement. Pre and postdebridement measurements document nursing notes. Musculoskeletal: Left hallux rigidus deformity which is likely contributory to the left medial hallucal IPJ ulceration. Muscular strength full to bilateral lower extremity compartments. Debridement Note Debridement Note Post-Debridement Measurements and Additional Note: Post-Debridement Measurements/Treatment OLIVIER - Nurse 1 - General Ulcer Assessment Start: 07/03/22 11:20 Freq: Status: Active Protocol: OLIVIER.LOWEXT Activity Type Activity Date Activity User E-sign Co-sign Detail Recorded Client Recorded Date Recorded By Document 07/03/22 11:20 MW Desktop 07/03/22 11:27 07/03/22 11:20 - Today's Visit Information Type of service Follow-up Visit (Physician/PATIENT FINANCIAL SERVICES SPECIALIST ) Arrival Mode Ambulatory Transfer Assistance None Accompanied by Patient Identification Verified (Name & Yes ) Patient Requires Transmission-Based No Precautions Height and Weight Body Mass Index (BMI) 30.1 BMI Classification Obese Vital Signs Temperature (97.8 F-99.1 F) 98.3 F Temperature Source Temporal Pulse Rate (60-100) 73 Pulse Location Monitor Respiratory Rate (12-18) 18 Respiratory rate source Observation Oxygen Delivery Method Room Air Blood Pressure (90/60-120/80) 128/65 H Blood Pressure Mean (mm Hg) 86 Source Monitor Position Sitting Blood Pressure Location Right Arm History Since Last Visit- (Skip if this is Patient's initial visit) Have you changed medications since your No last visit? Any new allergies or adverse reactions No Had a fall/change in ADL's that may No increase risk of falls Signs or symptoms of abuse and/or No neglect since last visit Have you been in the hospital since your No last visit? Has dressing in place as prescribed Yes Has compression in place as prescribed N/A Has offloadiing in place as prescribed N/A Experienced any changes in pain level or No management Left Footwear Regular Shoe Right Footwear Regular Shoe Pain Scale: 0-10 Numeric Is Patient Pain Free? Yes - Nurse 1 - General Ulcer Measurement Start: 07/03/22 11:20 Freq: Status: Active Protocol: Activity Type Activity Date Activity User E-sign Co-sign Detail Recorded Client Recorded Date Recorded By Document 07/03/22 11:20 [employer] 07/03/22 11:27 07/03/22 11:20 Wound Center Nurse 1 #1- L GR TOE -Combined with other wound No -Current Size (cm) - Length 0.1 -Current Size (cm) - Width 0.1 -Current Size (cm) - Depth 0.1 -Total Square Cm 0.01 -Photo Taken No -Epithelialization None Present -Tunneling No -Undermining/Tunneling No -Circular Undermining No -Exudate Amt Small -Exudate Type Sanguineous -Wound Margin Flat & Intact -Granulation Amt None Present (0 %) -Granulation Quality N/A -Slough/Fibrin Yes -Necrosis Amt Large (67-100%) -Necrotic Tissue Type Adherent Slough -Structure Exposed N/A -Texture (Angie-wound Skin Appearance) Assessed,Callus ,Scarring -Moisture (Angie-wound Skin Appearance) No Abnormality, Assessed -Color (Angie-wound Skin Appearance) No Abnormality, Assessed -Temperature (Angie-wound Skin No Abnormality Appearance) (Pt Warm) -Tenderness on Palpation (Angie-wound Yes Skin Appearance) -Ulcer Cleansing Rinsed/ Irrigated with Saline -Foul Odor after Cleansing No -Anesthetic Used 5% Lidocaine Gel Lower Limb Edema Present No WC - Nurse 2 - General Ulcer CM Notes Start: 07/03/22 11:20 Freq: Status: Active Protocol: Activity Type Activity Date Activity User E-sign Co-sign Detail Recorded Client Recorded Date Recorded By Document 07/03/22 11:38 [id number] 07/03/22 11:42 SAAD 07/03/22 11:38 Wound Center Nurse 2 #1- L GR TOE -Time 11:38 -Correct Patient Yes -Correct Side, Site, Position Yes -Correct Procedure Yes -Procedure Performed Yes -Type of Procedure Debridement -Clinical Debridement Subcutaneous -Tissue Removed Subcutaneous -Post Debridement (cm) - Length 0.2 -Post Debridement (cm) - Width 0.4 -Post Debridement (cm) - Depth 0.5 -Total Square (Post) (cm) 0.08 -Area of Debridement (cm) - Length 0.2 -Area of Debridement (cm) - Width 0.4 -Total Square (Area) (cm) 0.08 -Tunneling No -Undermining/Tunneling No -Circular Undermining No -Wound/Ulcer Outcome Not Healed -Ulcer Cleansing Rinsed/ Irrigated with Saline -Foul Odor after Cleansing No -Bioengineered Tissue No -Bleeding Controlled with Pressure -Treatment Response Procedure Tolerated Well -Offloading Yes -Type of Offloading Total Contact Cast (TCC) - Left ($) -Debridement - Subq, 1st 20sq cm Yes Pain Scale: 0-10 Numeric Is Patient Pain Free? Yes - Nurse 3 - General Ulcer D/C NN Start: 07/03/22 11:20 Freq: Status: Active Protocol: Activity Type Activity Date Activity User E-sign Co-sign Detail Recorded Client Recorded Date Recorded By Document 07/03/22 11:51 [facility] [id number] 07/03/22 11:52 [facility] 07/03/22 11:51 Wound Care Nurse 3 #1- L GR TOE -Ulcer Cleansing Rinsed/ Irrigated with Saline -Foul Odor after Cleansing No -Primary Dressing Applied Aquacel AG 2x2 -Other Dressing DRSG PER MW RN, TCC UNDERCAST SIZE 3 -Aquacel AG 2x2 1 Treatment Response Procedure Tolerated Well Pain Scale: 0-10 Numeric Is Patient Pain Free? Yes WC - Visit Discharge Discharge Condition Stable Ambulatory Status Ambulatory Transportation Private Auto Accompanied by Assessment/Plan Assessment/Plan (1) Diabetic foot infection: CODE(S): E11.628 - 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 other skin complications; L08.9 - Local infection of the skin and subcutaneous tissue, unspecified (2) Diabetic peripheral neuropathy: CODE(S): E11.42 - 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 diabetic polyneuropathy (3) 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 foot ulcer: CODE(S): E11.621 - 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 foot ulcer; L97.509 - Non-pressure chronic ulcer of other part of unspecified foot with unspecified severity QUALIFIERS: Diabetes mellitus fdc insulin use: unspecified fdc insulin use status Qualified Code(s): E11.621 - 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 foot ulcer; L97.509 - Non-pressure chronic ulcer of other part of unspecified foot with unspecified severity (4) Non-pressure chronic ulcer of other part of left foot with fat layer exp osed: CODE(S): L97.522 - Non-pressure chronic ulcer of other part of left foot with fat layer exposed PLAN: Patient examined evaluated, all findings cussed patient detail. Wound improved significantly today, nearly healed. Wound was excisionally debrided down to including level of subcutaneous tissue to left hallux of all nonviable tissue pre and postdebridement measurements document nursing note hemostasis today with light compression anesthesia not required due to neuropathy patient tolerated procedure well. Patient patient wishes to delay any surgical intervention at this time. Patient improving his blood sugar control. Total contact cast applied to left lower extremity today. Wound site redressed with Betadine paint gauze and paper tape. Patient will perform this dressing change daily. Patient will follow up in 1 week. Patient awaiting diabetic shoes. Discussed with patient performing elective hallux IPJ arthroplasty to offload the wound site. This would be an elective procedure. Inherent risks benefits discussed with patient. Patient will contact our office if he wishes to proceed.
[2022-07-10 11:20] VITALS: TEMP 36.2; BMI 30.1
--- NOTE | 2022-07-10 11:37 | PN.PCM_ITS ---
History of Present Illness Date of Service: 07/10/22 Progress of Wound: This 61-year-old male presents to clinic for a left hallux ulceration. Patient is a type II diabetic with previous end-stage renal disease which was treated with a renal transplant. Patient does note recent A1c of 6.6 improved from 8.9 and notes that he is attempting to better control his blood sugar. Patient denies any constitutional symptoms at this time and has been taking Augmentin for a left hallux cellulitis. Patient has been offloading in a surgical shoe. Notes that this has not been working well. Denies constitutional's. No other complaints. Objective Data Objective Data Vital Signs: Vital Signs Temp Pulse Resp BP O2 Del Method 97.2 F L 73 18 128/65 H Room Air 07/10/22 11:20 07/03/22 11:20 07/03/22 11:20 07/03/22 11:20 07/03/22 11:20 Oxygen Delivery Method Room Air Weight: 95.254 kg Body Mass Index (BMI) 30.1 Lab / Micro Data Micro: Microbiology 07/03/22 11:45 Wound Abcess - Toe Gram Stain - Final 07/03/22 11:45 Wound Abcess - Toe Wound Culture - Final Streptococcus group G Staphylococcus aureus 07/03/22 11:45 Wound Abcess - Toe Anaerobic Culture - Final No anaerobic bacteria isolated. Physical Exam Narrative Patient is alert oriented to person place and time. Patient is ambulating in a surgical shoe to his left lower extremity. Normal shoe gear on the right side. Vascular: Dorsalis pedis and posterior tibial pulses palpable 2 out of 4 to bilateral lower extremity. Capillary fill time brisk to lesser digits. Digital hair growth noted. No atrophic skin changes noted. Resolving edema to the left foot. Some increased warmth the left hallux. Neurologic: Light touch protective sensation diminished bilateral feet. Dermatologic: Full-thickness ulceration to plantar medial left hallux IPJ. Mild periwound erythema and edema. No underlying fluctuance or crepitance deep probing. No undermining. Wound base granular pre and postdebridement. Pre and postdebridement measurements document nursing notes. Musculoskeletal: Left hallux rigidus deformity which is likely contributory to the left medial hallucal IPJ ulceration. Muscular strength full to bilateral lower extremity compartments. Debridement Note Debridement Note Post-Debridement Measurements and Additional Note: Post-Debridement Measurements/Treatment WC - Nurse 1 - General Ulcer Assessment Start: 07/03/22 11:20 Freq: Status: Active Protocol: ARMANDO Activity Type Activity Date Activity User E-sign Co-sign Detail Recorded Client Recorded Date Recorded By Document 07/03/22 11:20 MW Desktop 07/03/22 11:27 MW Document 07/10/22 11:20 [facility] [id number] 07/10/22 11:22 LAZARO 07/03/22 07/10/22 11:20 11:20 WC - Today's Visit Information Type of service Follow-up Visit Follow-up Visit (Physician/DIRECTOR OF CASEWORK (Physician/DIRECTOR OF CASEWORK ) ) Arrival Mode Ambulatory Ambulatory Transfer Assistance None Accompanied by Patient Identification Verified (Name & Yes Yes ) Patient Requires Transmission-Based No No Precautions Safety Precautions NA Height and Weight Body Mass Index (BMI) 30.1 30.1 BMI Classification Obese Obese Vital Signs Temperature (97.8 F-99.1 F) 98.3 F 97.2 F L Temperature Source Temporal Temporal Pulse Rate (60-100) 73 Pulse Location Monitor Respiratory Rate (12-18) 18 Respiratory rate source Observation Oxygen Delivery Method Room Air Blood Pressure (90/60-120/80) 128/65 H Blood Pressure Mean (mm Hg) 86 Source Monitor Position Sitting Blood Pressure Location Right Arm History Since Last Visit- (Skip if this is Patient's initial visit) Have you changed medications since your No No last visit? Any new allergies or adverse reactions No No Had a fall/change in ADL's that may No No increase risk of falls Signs or symptoms of abuse and/or No No neglect since last visit Have you been in the hospital since your No No last visit? Has dressing in place as prescribed Yes No Has compression in place as prescribed N/A Yes Has offloadiing in place as prescribed N/A Yes Experienced any changes in pain level or No No management Left Footwear Regular Shoe Regular Shoe Right Footwear Regular Shoe Removable Cast Walker/Walking Boot Pain Scale: 0-10 Numeric Is Patient Pain Free? Yes Yes OLIVIER - Nurse 1 - General Ulcer Measurement Start: 07/03/22 11:20 Freq: Status: Active Protocol: Activity Type Activity Date Activity User E-sign Co-sign Detail Recorded Client Recorded Date Recorded By Document 08/09/22 11:20 MW Desktop 07/03/22 11:27 MW Document 07/10/22 11:20 [place] [id number] 07/10/22 11:22 AK 07/03/22 07/10/22 11:20 11:20 Wound Center Nurse 1 #1- L GR TOE -Combined with other wound No No -Current Size (cm) - Length 0.1 0.1 -Current Size (cm) - Width 0.1 0.1 -Current Size (cm) - Depth 0.1 0.1 -Total Square Cm 0.01 0.01 -Photo Taken No No -Epithelialization None Present -Tunneling No No -Undermining/Tunneling No No -Circular Undermining No No -Change in Wound Grade/Stage No -Exudate Amt Small Small -Exudate Type Sanguineous Serosanguineous -Wound Margin Flat & Intact Distinct, Outline Attached -Granulation Amt None Present (0 Small (1-33%) %) -Granulation Quality N/A N/A -Slough/Fibrin Yes No -Necrosis Amt Large (67-100%) None Present (0 %) -Necrotic Tissue Type Adherent Slough -Structure Exposed N/A N/A -Texture (Angie-wound Skin Appearance) Assessed,Callus No Abnormality, ,Scarring Assessed -Moisture (Angie-wound Skin Appearance) No Abnormality, No Abnormality, Assessed Assessed -Color (Angie-wound Skin Appearance) No Abnormality, No Abnormality, Assessed Assessed -Temperature (Angie-wound Skin No Abnormality No Abnormality Appearance) (Pt Warm) (Pt Warm) -Tenderness on Palpation (Angie-wound Yes No Skin Appearance) -Ulcer Cleansing Rinsed/ Rinsed/ Irrigated with Irrigated with Saline Saline -Foul Odor after Cleansing No No -Anesthetic Used 5% Lidocaine 5% Lidocaine Gel Gel Lower Limb Edema Present No WC - Nurse 2 - General Ulcer CM Notes Start: 07/03/22 11:20 Freq: Status: Active Protocol: Activity Type Activity Date Activity User E-sign Co-sign Detail Recorded Client Recorded Date Recorded By Document 07/03/22 11:38 [id number] 07/03/22 11:42 Document 07/10/22 11:35 [id number] 07/10/22 11:37 07/03/22 07/10/22 11:38 11:35 Wound Center Nurse 2 #1- L GR TOE -Time 11:38 11:35 -Correct Patient Yes Yes -Correct Side, Site, Position Yes Yes -Correct Procedure Yes Yes -Procedure Performed Yes Yes -Type of Procedure Debridement Debridement -Clinical Debridement Subcutaneous Subcutaneous -Tissue Removed Subcutaneous Subcutaneous -Post Debridement (cm) - Length 0.2 0.2 -Post Debridement (cm) - Width 0.4 0.2 -Post Debridement (cm) - Depth 0.5 0.2 -Total Square (Post) (cm) 0.08 0.04 -Area of Debridement (cm) - Length 0.2 0.2 -Area of Debridement (cm) - Width 0.4 0.2 -Total Square (Area) (cm) 0.08 0.04 -Tunneling No No -Undermining/Tunneling No No -Circular Undermining No No -Wound/Ulcer Outcome Not Healed Not Healed -Ulcer Cleansing Rinsed/ Rinsed/ Irrigated with Irrigated with Saline Saline -Foul Odor after Cleansing No No -Bioengineered Tissue No No -Bleeding Controlled with Pressure Pressure -Treatment Response Procedure Procedure Tolerated Well Tolerated Well -Offloading Yes Yes -Type of Offloading Total Contact Total Contact Cast (TCC) - Cast (TCC) - Left ($) Left ($) -Debridement - Subq, 1st 20sq cm Yes Yes Pain Scale: 0-10 Numeric Is Patient Pain Free? Yes Yes - Nurse 3 - General Ulcer D/C NN Start: 07/03/22 11:20 Freq: Status: Active Protocol: Activity Type Activity Date Activity User E-sign Co-sign Detail Recorded Client Recorded Date Recorded By Document 07/03/22 11:51 [facility] [id number] 07/03/22 11:52 [facility] 07/03/22 11:51 Wound Care Nurse 3 #1- L GR TOE -Ulcer Cleansing Rinsed/ Irrigated with Saline -Foul Odor after Cleansing No -Primary Dressing Applied Aquacel AG 2x2 -Other Dressing DRSG PER MW RN, TCC UNDERCAST SIZE 3 -Aquacel AG 2x2 1 Treatment Response Procedure Tolerated Well Pain Scale: 0-10 Numeric Is Patient Pain Free? Yes WC - Visit Discharge Discharge Condition Stable Ambulatory Status Ambulatory Transportation Private Auto Accompanied by Assessment/Plan Assessment/Plan (1) Diabetic foot infection: CODE(S): E11.628 - 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 other skin complications; L08.9 - Local infection of the skin and subcutaneous tissue, unspecified (2) Diabetic peripheral neuropathy: CODE(S): E11.42 - 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 diabetic polyneuropathy (3) 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 foot ulcer: CODE(S): E11.621 - 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 foot ulcer; L97.509 - Non-pressure chronic ulcer of other part of unspecified foot with unspecified severity QUALIFIERS: Diabetes mellitus truck terminal manager insulin use: unspecified truck terminal manager insulin use status Qualified Code(s): E11.621 - 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 foot ulcer; L97.509 - Non-pressure chronic ulcer of other part of unspecified foot with unspecified severity (4) Non-pressure chronic ulcer of other part of left foot with fat layer exposed: CODE(S): L97.522 - Non-pressure chronic ulcer of other part of left foot with fat layer exposed PLAN: Patient examined evaluated, all findings cussed patient detail. Wound improved significantly today, nearly healed. Wound was excisionally debrided down to including level of subcutaneous tissue to left hallux of all nonviable tissue pre and postdebridement measurements document nursing note hemostasis today with light compression anesthesia not required due to neuropathy patient tolerated procedure well. Patient patient wishes to delay any surgical intervention at this time. Patient improving his blood sugar control. Total contact cast applied to left lower extremity today. Wound site redressed with Betadine paint gauze and paper tape. Patient will perform this dressing change daily. Patient will follow up in 1 week. Patient awaiting diabetic shoes. Discussed with patient performing elective hallux IPJ arthroplasty to offload the wound site. This would be an elective procedure. Inherent risks benefits discussed with patient. Patient will contact our office if he wishes to proceed.
[2022-07-11 14:06] VITALS: RESP 20; BMI 30.1
--- NOTE | 2022-07-11 15:37 | PN.PCM_ITS ---
History of Present Illness Date of Service: 07/11/22 Chief Complaint: cast evaluation Progress of Wound: This 61-year-old male presents to clinic for a left hallux ulceration. He had a total contact cast applied yesterday that is causing some irritation to his brown. He presents today for reevaluation and application of the cast. This is a courtesy visit for Dr. Esparza. Objective Data Objective Data Vital Signs: Vital Signs Temp Pulse Resp BP O2 Del Method 97.2 F L 73 20 H 128/65 H Room Air 07/10/22 11:20 07/03/22 11:20 07/11/22 14:06 07/03/22 11:20 07/03/22 11:20 Oxygen Delivery Method Room Air Weight: 95.254 kg Body Mass Index (BMI) 30.1 Lab / Micro Data Micro: Microbiology 07/03/22 11:45 Wound Abcess - Toe Gram Stain - Final 07/03/22 11:45 Wound Abcess - Toe Wound Culture - Final Streptococcus group G Staphylococcus aureus 07/03/22 11:45 Wound Abcess - Toe Anaerobic Culture - Final No anaerobic bacteria isolated. Physical Exam Skin Skin Narrative: ulcer left hallux, no infection Debridement Note Debridement Note Post-Debridement Measurements and Additional Note: Post-Debridement Measurements/Treatment - Nurse 1 - General Ulcer Assessment Start: 07/03/22 11:20 Freq: Status: Active Protocol: ARMANDO Activity Type Activity Date Activity User E-sign Co-sign Detail Recorded Client Recorded Date Recorded By Document 07/03/22 11:20 MW Desktop 07/03/22 11:27 MW Document 07/10/22 11:20 AK [id number] 07/10/22 11:22 AK Document 07/11/22 14:06 DL [id number] 07/11/22 14:18 DL 07/03/22 07/10/22 07/11/22 11:20 11:20 14:06 - Today's Visit Information Type of service Follow-up Visit Follow-up Visit Nurse-only (Physician/BRICK CHIMNEY SUPERVISOR (Physician/BRICK CHIMNEY SUPERVISOR Visit ) ) Arrival Mode Ambulatory Ambulatory Ambulatory Transfer Assistance None None Accompanied by Patient Identification Verified (Name & Yes Yes Yes ) Patient Requires Transmission-Based No No No Precautions Safety Precautions NA Height and Weight Body Mass Index (BMI) 30.1 30.1 30.1 BMI Classification Obese Obese Obese Vital Signs Temperature (97.8 F-99.1 F) 98.3 F 97.2 F L Temperature Source Temporal Temporal Pulse Rate (60-100) 73 Pulse Location Monitor Respiratory Rate (12-18) 18 20 H Respiratory rate source Observation Observation Oxygen Delivery Method Room Air Blood Pressure (90/60-120/80) 128/65 H Blood Pressure Mean (mm Hg) 86 Source Monitor Position Sitting Blood Pressure Location Right Arm History Since Last Visit- (Skip if this is Patient's initial visit) Have you changed medications since your No No No last visit? Any new allergies or adverse reactions No No No Had a fall/change in ADL's that may No No No increase risk of falls Signs or symptoms of abuse and/or No No No neglect since last visit Have you been in the hospital since your No No No last visit? Has dressing in place as prescribed Yes No No Has compression in place as prescribed N/A Yes Yes Has offloadiing in place as prescribed N/A Yes Yes Experienced any changes in pain level or No No No management Left Footwear Regular Shoe Regular Shoe Total Contact Cast Right Footwear Regular Shoe Removable Cast Walker/Walking Boot Pain Scale: 0-10 Numeric Is Patient Pain Free? Yes Yes Yes WC - Nurse 1 - General Ulcer Measurement Start: 07/03/22 11:20 Freq: Status: Active Protocol: Activity Type Activity Date Activity User E-sign Co-sign Detail Recorded Client Recorded Date Recorded By Document 07/03/22 11:20 MW Desktop 07/03/22 11:27 MW Document 07/10/22 11:20 AK [id number] 07/10/22 11:22 AK Document 07/11/22 14:06 DL [id number] 07/11/22 14:18 DL 07/03/22 07/10/22 07/11/22 11:20 11:20 14:06 Wound Center Nurse 1 #1- L GR TOE -Combined with other wound No No -Current Size (cm) - Length 0.1 0.1 -Current Size (cm) - Width 0.1 0.1 -Current Size (cm) - Depth 0.1 0.1 -Total Square Cm 0.01 0.01 -Photo Taken No No -Epithelialization None Present -Tunneling No No -Undermining/Tunneling No No -Circular Undermining No No -Change in Wound Grade/Stage No -Exudate Amt Small Small Medium -Exudate Type Sanguineous Serosanguineous Serosanguineous -Wound Margin Flat & Intact Distinct, Distinct, Outline Outline Attached Attached -Granulation Amt None Present (0 Small (1-33%) Small (1-33%) %) -Granulation Quality N/A N/A [place],Red -Slough/Fibrin Yes No -Necrosis Amt Large (67-100%) None Present (0 None Present (0 %) %) -Necrotic Tissue Type Adherent Slough -Structure Exposed N/A N/A N/A -Texture (Angie-wound Skin Appearance) Assessed,Callus No Abnormality, No Abnormality ,Scarring Assessed -Moisture (Angie-wound Skin Appearance) No Abnormality, No Abnormality, No Abnormality Assessed Assessed -Color (Angie-wound Skin Appearance) No Abnormality, No Abnormality, No Abnormality Assessed Assessed -Temperature (Angie-wound Skin No Abnormality No Abnormality No Abnormality Appearance) (Pt Warm) (Pt Warm) (Pt Warm) -Tenderness on Palpation (Angie-wound Yes No Skin Appearance) -Ulcer Cleansing Rinsed/ Rinsed/ Soap and Water Irrigated with Irrigated with Saline Saline -Foul Odor after Cleansing No No No -Anesthetic Used 5% Lidocaine 5% Lidocaine Gel Gel Lower Limb Edema Present No WC - Nurse 2 - General Ulcer CM Notes Start: 07/03/22 11:20 Freq: Status: Active Protocol: Activity Type Activity Date Activity User E-sign Co-sign Detail Recorded Client Recorded Date Recorded By Document 07/03/22 11:38 [id number] 07/03/22 11:42 Document 07/10/22 11:35 [id number] 07/10/22 11:37 07/03/22 07/10/22 11:38 11:35 Wound Center Nurse 2 #1- L GR TOE -Time 11:38 11:35 -Correct Patient Yes Yes -Correct Side, Site, Position Yes Yes -Correct Procedure Yes Yes -Procedure Performed Yes Yes -Type of Procedure Debridement Debridement -Clinical Debridement Subcutaneous Subcutaneous -Tissue Removed Subcutaneous Subcutaneous -Post Debridement (cm) - Length 0.2 0.2 -Post Debridement (cm) - Width 0.4 0.2 -Post Debridement (cm) - Depth 0.5 0.2 -Total Square (Post) (cm) 0.08 0.04 -Area of Debridement (cm) - Length 0.2 0.2 -Area of Debridement (cm) - Width 0.4 0.2 -Total Square (Area) (cm) 0.08 0.04 -Tunneling No No -Undermining/Tunneling No No -Circular Undermining No No -Wound/Ulcer Outcome Not Healed Not Healed -Ulcer Cleansing Rinsed/ Rinsed/ Irrigated with Irrigated with Saline Saline -Foul Odor after Cleansing No No -Bioengineered Tissue No No -Bleeding Controlled with Pressure Pressure -Treatment Response Procedure Procedure Tolerated Well Tolerated Well -Offloading Yes Yes -Type of Offloading Total Contact Total Contact Cast (TCC) - Cast (TCC) - Left ($) Left ($) -Debridement - Subq, 1st 20sq cm Yes Yes Pain Scale: 0-10 Numeric Is Patient Pain Free? Yes Yes WC - Nurse 3 - General Ulcer D/C NN Start: 07/03/22 11:20 Freq: Status: Active Protocol: Activity Type Activity Date Activity User E-sign Co-sign Detail Recorded Client Recorded Date Recorded By Document 07/03/22 11:51 [facility] [id number] 07/03/22 11:52 [facility] Document 07/10/22 11:49 [facility] [id number] 07/10/22 11:50 [facility] Document 07/11/22 14:06 DL [id number] 07/11/22 14:18 DL 07/03/22 07/10/22 07/11/22 11:51 11:49 14:06 Wound Care Nurse 3 #1- L GR TOE -Ulcer Cleansing Rinsed/ Rinsed/ Soap and Water Irrigated with Irrigated with Saline Saline -Foul Odor after Cleansing No No No -Primary Dressing Applied Aquacel AG 2x2 Aquacel AG 2x2 Aquacel AG 2x2 -Other Dressing DRSG PER MW RN, TCC UNDERCAST SIZE 3 -Primary Dressing Covered/Secured with Dry Gauze, Secured with Tape -Other Covering tcc size 3 tcc undercast undercasting -Aquacel AG 2x2 1 1 1 Treatment Response Procedure Procedure Procedure Tolerated Well Tolerated Well Tolerated Well Vital Signs Respiratory Rate (12-18) 20 H Respiratory rate source Observation Pain Scale: 0-10 Numeric Is Patient Pain Free? Yes Yes Yes WC - Visit Discharge Discharge Condition Stable Stable Stable Ambulatory Status Ambulatory Ambulatory Ambulatory Transportation Private Auto Private Auto Private Auto Accompanied by Notes: Cast reapplied per Bharath Wei CNP. Pt c/o of cast rubbing is brown and back of leg from yesterdays application. 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 He does not have any signs of infection. I offered to apply a total contact cast today and verbal consent was obtained. This was applied according to standard protocol in a rectus, well-padded manner to the left lower extremity. He tolerated this well. To keep clean, dry, and intact until follow-up next week. He will follow-up with Dr. Esparza.
[2022-07-17 11:13] VITALS: BP 128/72; PULSE 63; RESP 20; TEMP 36.6; BMI 30.1
--- NOTE | 2022-07-17 11:54 | PCM.WC.PN ---
History of Present Illness Date of Service: 07/17/22 Chief Complaint: cast evaluation Progress of Wound: This 61-year-old male presents to clinic for a left hallux ulceration. He had a total contact cast applied yesterday that is causing some irritation to his brown. He presents today for reevaluation and application of the cast. This is a courtesy visit for Dr. Esparza. Objective Data Objective Data Vital Signs: Vital Signs Temp Pulse Resp BP O2 Del Method 97.8 F 63 20 H 128/72 H Room Air 07/17/22 11:13 07/17/22 11:13 07/17/22 11:13 07/17/22 11:13 07/03/22 11:20 Oxygen Delivery Method Room Air Weight: 95.254 kg Body Mass Index (BMI) 30.1 Lab / Micro Data Micro: Microbiology 07/03/22 11:45 Wound Abcess - Toe Gram Stain - Final 07/03/22 11:45 Wound Abcess - Toe Wound Culture - Final Streptococcus group G Staphylococcus aureus 07/03/22 11:45 Wound Abcess - Toe Anaerobic Culture - Final No anaerobic bacteria isolated. Physical Exam Narrative Patient is alert oriented to person place and time. Patient is ambulating in a surgical shoe to his left lower extremity. Normal shoe gear on the right side. Vascular: Dorsalis pedis and posterior tibial pulses palpable 2 out of 4 to bilateral lower extremity. Capillary fill time brisk to lesser digits. Digital hair growth noted. No atrophic skin changes noted. Resolving edema to the left foot. Some increased warmth the left hallux. Neurologic: Light touch protective sensation diminished bilateral feet. Dermatologic: Full-thickness ulceration to plantar medial left hallux IPJ. Mild periwound erythema and edema. No underlying fluctuance or crepitance deep probing. No undermining. Wound base granular pre and postdebridement. Pre and postdebridement measurements document nursing notes. Musculoskeletal: Left hallux rigidus deformity which is likely contributory to the left medial hallucal IPJ ulceration. Muscular strength full to bilateral lower extremity compartments. Skin Skin Narrative: ulcer left hallux, no infection Debridement Note Debridement Note Post-Debridement Measurements and Additional Note: Post-Debridement Measurements/Treatment OLIVIER - Nurse 1 - General Ulcer Assessment Start: 07/03/22 11:20 Freq: Status: Active Protocol: OLIVIER.LOWEXT Activity Type Activity Date Activity User E-sign Co-sign Detail Recorded Client Recorded Date Recorded By Document 07/03/22 11:20 MW Desktop 07/03/22 11:27 MW Document 07/10/22 11:20 AK [id number] 07/10/22 11:22 AK Document 07/11/22 14:06 DL [id number] 07/11/22 14:18 DL Document 07/17/22 11:13 DL [id number] 07/17/22 11:24 DL 07/03/22 07/10/22 07/11/22 11:20 11:20 14:06 WC - Today's Visit Information Type of service Follow-up Visit Follow-up Visit Nurse-only (Physician/CLIENT FINANCE ANALYST (Physician/CLIENT FINANCE ANALYST Visit ) ) Arrival Mode Ambulatory Ambulatory Ambulatory Transfer Assistance None None Accompanied by Patient Identification Verified (Name & Yes Yes Yes ) Patient Requires Transmission-Based No No No Precautions Safety Precautions NA Finger Stick Blood Sugar(mg/dl) (if indicated): Blood Sugar Height and Weight Body Mass Index (BMI) 30.1 30.1 30.1 BMI Classification Obese Obese Obese Vital Signs Temperature (97.8 F-99.1 F) 98.3 F 97.2 F L Temperature Source Temporal Temporal Pulse Rate (60-100) 73 Pulse Location Monitor Respiratory Rate (12-18) 18 20 H Respiratory rate source Observation Observation Oxygen Delivery Method Room Air Blood Pressure (90/60-120/80) 128/65 H Blood Pressure Mean (mm Hg) 86 Source Monitor Position Sitting Blood Pressure Location Right Arm History Since Last Visit- (Skip if this is Patient's initial visit) Have you changed medications since your No No No last visit? Any new allergies or adverse reactions No No No Had a fall/change in ADL's that may No No No increase risk of falls Signs or symptoms of abuse and/or No No No neglect since last visit Have you been in the hospital since your No No No last visit? Has dressing in place as prescribed Yes No No Has compression in place as prescribed N/A Yes Yes Has offloadiing in place as prescribed N/A Yes Yes Experienced any changes in pain level or No No No management Left Footwear Regular Shoe Regular Shoe Total Contact Cast Right Footwear Regular Shoe Removable Cast Walker/Walking Boot Pain Scale: 0-10 Numeric Is Patient Pain Free? Yes Yes Yes 07/17/22 11:13 WC - Today's Visit Information Type of service Follow-up Visit (Physician/CLIENT FINANCE ANALYST ) Arrival Mode Ambulatory Transfer Assistance None Accompanied by Patient Identification Verified (Name & Yes ) Patient Requires Transmission-Based Precautions Safety Precautions Finger Stick Blood Sugar(mg/dl) (if 150 indicated): Blood Sugar Stated by Patient Height and Weight Body Mass Index (BMI) 30.1 BMI Classification Obese Vital Signs Temperature (97.8 F-99.1 F) 97.8 F Temperature Source Temporal Pulse Rate (60-100) 63 Pulse Location Monitor Respiratory Rate (12-18) 20 H Respiratory rate source Observation Oxygen Delivery Method Blood Pressure (90/60-120/80) 128/72 H Blood Pressure Mean (mm Hg) 90 Source Position Blood Pressure Location History Since Last Visit- (Skip if this is Patient's initial visit) Have you changed medications since your No last visit? Any new allergies or adverse reactions No Had a fall/change in ADL's that may No increase risk of falls Signs or symptoms of abuse and/or No neglect since last visit Have you been in the hospital since your No last visit? Has dressing in place as prescribed Yes Has compression in place as prescribed N/A Has offloadiing in place as prescribed Yes Experienced any changes in pain level or management Left Footwear Total Contact Cast Right Footwear Pain Scale: 0-10 Numeric Is Patient Pain Free? Yes - Nurse 1 - General Ulcer Measurement Start: 07/03/22 11:20 Freq: Status: Active Protocol: Activity Type Activity Date Activity User E-sign Co-sign Detail Recorded Client Recorded Date Recorded By Document 07/03/22 11:20 MW Desktop 07/03/22 11:27 MW Document 07/10/22 11:20 AK [id number] 07/10/22 11:22 AK Document 07/11/22 14:06 DL [id number] 07/11/22 14:18 DL Document 07/17/22 11:13 DL [id number] 07/17/22 11:24 DL 07/03/22 07/10/22 07/11/22 11:20 11:20 14:06 Wound Center Nurse 1 #1- L GR TOE -Combined with other wound No No -Current Size (cm) - Length 0.1 0.1 -Current Size (cm) - Width 0.1 0.1 -Current Size (cm) - Depth 0.1 0.1 -Total Square Cm 0.01 0.01 -Photo Taken No No -Epithelialization None Present -Tunneling No No -Undermining/Tunneling No No -Maximum Distance #2 (cm) -Circular Undermining No No -Change in Wound Grade/Stage No -Exudate Amt Small Small Medium -Exudate Type Sanguineous Serosanguineous Serosanguineous -Wound Margin Flat & Intact Distinct, Distinct, Outline Outline Attached Attached -Granulation Amt None Present (0 Small (1-33%) Small (1-33%) %) -Granulation Quality N/A N/A [place],Red -Slough/Fibrin Yes No -Necrosis Amt Large (67-100%) None Present (0 None Present (0 %) %) -Necrotic Tissue Type Adherent Slough -Structure Exposed N/A N/A N/A -Texture (Angie-wound Skin Appearance) Assessed,Callus No Abnormality, No Abnormality ,Scarring Assessed -Moisture (Angie-wound Skin Appearance) No Abnormality, No Abnormality, No Abnormality Assessed Assessed -Color (Angie-wound Skin Appearance) No Abnormality, No Abnormality, No Abnormality Assessed Assessed -Temperature (Angie-wound Skin No Abnormality No Abnormality No Abnormality Appearance) (Pt Warm) (Pt Warm) (Pt Warm) -Tenderness on Palpation (Angie-wound Yes No Skin Appearance) -Ulcer Cleansing Rinsed/ Rinsed/ Soap and Water Irrigated with Irrigated with Saline Saline -Foul Odor after Cleansing No No No -Anesthetic Used 5% Lidocaine 5% Lidocaine Gel Gel Lower Limb Edema Present No 07/17/22 11:13 Wound Center Nurse 1 #1- L GR TOE -Combined with other wound -Current Size (cm) - Length 0.2 -Current Size (cm) - Width 0.2 -Current Size (cm) - Depth 0.2 -Total Square Cm 0.04 -Photo Taken No -Epithelialization -Tunneling -Undermining/Tunneling -Maximum Distance #2 (cm) 0.2 -Circular Undermining Yes -Change in Wound Grade/Stage -Exudate Amt None Present -Exudate Type -Wound Margin Thickened -Granulation Amt Small (1-33%) -Granulation Quality Pale -Slough/Fibrin -Necrosis Amt None Present (0 %) -Necrotic Tissue Type -Structure Exposed N/A -Texture (Angie-wound Skin Appearance) Callus,Scarring -Moisture (Angie-wound Skin Appearance) Dry/Scaly -Color (Angie-wound Skin Appearance) No Abnormality -Temperature (Angie-wound Skin No Abnormality Appearance) (Pt Warm) -Tenderness on Palpation (Angie-wound No Skin Appearance) -Ulcer Cleansing Soap and Water -Foul Odor after Cleansing No -Anesthetic Used 5% Lidocaine Gel Lower Limb Edema Present WC - Nurse 2 - General Ulcer CM Notes Start: 07/03/22 11:20 Freq: Status: Active Protocol: Activity Type Activity Date Activity User E-sign Co-sign Detail Recorded Client Recorded Date Recorded By Document 07/03/22 11:38 [id number] 07/03/22 11:42 Document 07/10/22 11:35 [id number] 07/10/22 11:37 Document 07/17/22 11:39 [id number] 07/17/22 11:40 07/03/22 07/10/22 07/17/22 11:38 11:35 11:39 Wound Center Nurse 2 #1- L GR TOE -Time 11:38 11:35 11:39 -Correct Patient Yes Yes Yes -Correct Side, Site, Position Yes Yes Yes -Correct Procedure Yes Yes Yes -Procedure Performed Yes Yes Yes -Type of Procedure Debridement Debridement Debridement -Clinical Debridement Subcutaneous Subcutaneous Subcutaneous -Tissue Removed Subcutaneous Subcutaneous Subcutaneous -Post Debridement (cm) - Length 0.2 0.2 0.1 -Post Debridement (cm) - Width 0.4 0.2 0.2 -Post Debridement (cm) - Depth 0.5 0.2 0.1 -Total Square (Post) (cm) 0.08 0.04 0.02 -Area of Debridement (cm) - Length 0.2 0.2 0.1 -Area of Debridement (cm) - Width 0.4 0.2 0.2 -Total Square (Area) (cm) 0.08 0.04 0.02 -Tunneling No No No -Undermining/Tunneling No No No -Circular Undermining No No No -Wound/Ulcer Outcome Not Healed Not Healed Not Healed -Ulcer Cleansing Rinsed/ Rinsed/ Rinsed/ Irrigated with Irrigated with Irrigated with Saline Saline Saline -Foul Odor after Cleansing No No No -Bioengineered Tissue No No No -Bleeding Controlled with Pressure Pressure Pressure -Treatment Response Procedure Procedure Procedure Tolerated Well Tolerated Well Tolerated Well -Offloading Yes Yes Yes -Type of Offloading Total Contact Total Contact Total Contact Cast (TCC) - Cast (TCC) - Cast (TCC) - Left ($) Left ($) Left ($) -Debridement - Subq, 1st 20sq cm Yes Yes Yes Pain Scale: 0-10 Numeric Is Patient Pain Free? Yes Yes Yes - Nurse 3 - General Ulcer D/C NN Start: 07/03/22 11:20 Freq: Status: Active Protocol: Activity Type Activity Date Activity User E-sign Co-sign Detail Recorded Client Recorded Date Recorded By Document 07/03/22 11:51 [facility] [id number] 07/03/22 11:52 [facility] Document 07/10/22 11:49 [facility] [id number] 07/10/22 11:50 [facility] Document 07/11/22 14:06 DL [id number] 07/11/22 14:18 DL 07/03/22 07/10/22 07/11/22 11:51 11:49 14:06 Wound Care Nurse 3 #1- L GR TOE -Ulcer Cleansing Rinsed/ Rinsed/ Soap and Water Irrigated with Irrigated with Saline Saline -Foul Odor after Cleansing No No No -Primary Dressing Applied Aquacel AG 2x2 Aquacel AG 2x2 Aquacel AG 2x2 -Other Dressing DRSG PER MW RN, TCC UNDERCAST SIZE 3 -Primary Dressing Covered/Secured with Dry Gauze, Secured with Tape -Other Covering tcc size 3 tcc undercast undercasting -Aquacel AG 2x2 1 1 1 Treatment Response Procedure Procedure Procedure Tolerated Well Tolerated Well Tolerated Well Vital Signs Respiratory Rate (12-18) 20 H Respiratory rate source Observation Pain Scale: 0-10 Numeric Is Patient Pain Free? Yes Yes Yes - Visit Discharge Discharge Condition Stable Stable Stable Ambulatory Status Ambulatory Ambulatory Ambulatory Transportation Private Auto Private Auto Private Auto Accompanied by Notes: Cast reapplied per Bharath Wei CNP. Pt c/o of cast rubbing is brown and back of leg from yesterdays application. Assessment/Plan Assessment/Plan (1) Diabetic peripheral neuropathy: CODE(S): E11.42 - 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 diabetic polyneuropathy (2) 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 foot ulcer: CODE(S): E11.621 - 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 foot ulcer; L97.509 - Non-pressure chronic ulcer of other part of unspecified foot with unspecified severity QUALIFIERS: Diabetes mellitus penitentiary insulin use: unspecified penitentiary insulin use status Qualified Code(s): E11.621 - 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 foot ulcer; L97.509 - Non-pressure chronic ulcer of other part of unspecified foot with unspecified severity (3) Non-pressure chronic ulcer of other part of left foot with fat layer exposed: CODE(S): L97.522 - Non-pressure chronic ulcer of other part of left foot with fat layer exposed PLAN: Patient examined evaluated. Patient is diabetic with neuropathy. Patient has a hallux IPJ wound on the left great toe. This wound is significantly improved since previous visit and is a small punctate ulceration with mild hyperkeratosis to the periwound area. Patient had a total contact cast applied to left lower extremity on previous visit. This had to be removed the next day due to poor fit of the cast. A different provider will applied a new total contact cast. The left hallux IPJ wound was excisionally debrided down to including level of subcutaneous tissue of all nonviable tissue using a 15 blade without incident. Oral consent obtained prior to procedure. Patient tolerated procedure well. Hemostasis obtained with light compression. Pre and postdebridement measurements document nursing notes. Wound dressed with Betadine paint periwound areas and silver. Total contact cast applied to left lower extremity. Patient will follow up in 1 week. Will consider hallux IPJ arthroplasty if we are unable to heal the wound. Recommend nutritional supplementation with Yousif.
[2022-07-24 14:35] VITALS: BMI 30.1
--- NOTE | 2022-07-24 14:46 | PN.PCM_ITS ---
History of Present Illness Date of Service: 07/24/22 Chief Complaint: cast evaluation History of Wound: This 61-year-old male presents to clinic for a left hallux ulceration. He had a total contact cast applied. He presents today for reevaluation and potential application of the cast. He thinks it might be healed today and denies illness. He is already scheduled for a follow-up in the outpatient setting with Dr. Esparza and may still consider having surgical curative intervention. He also reports his diabetic shoes are ready [facility]. He is with his family member today. Progress of Wound: healed Objective Data Objective Data Vital Signs: Vital Signs Temp Pulse Resp BP O2 Del Method 97.8 F 63 20 H 128/72 H Room Air 07/17/22 11:13 07/17/22 11:13 07/17/22 11:13 07/17/22 11:13 07/03/22 11:20 Oxygen Delivery Method Room Air Weight: 95.254 kg Body Mass Index (BMI) 30.1 Lab / Micro Data Micro: Microbiology 07/03/22 11:45 Wound Abcess - Toe Gram Stain - Final 07/03/22 11:45 Wound Abcess - Toe Wound Culture - Final Streptococcus group G Staphylococcus aureus 07/03/22 11:45 Wound Abcess - Toe Anaerobic Culture - Final No anaerobic bacteria isolated. Physical Exam Narrative Patient is alert oriented to person place and time. Normal shoe gear on the right side. Total contact cast noted to left foot. Vascular: Dorsalis pedis and posterior tibial pulses palpable 2 out of 4 to bilateral lower extremity. Capillary fill time brisk to lesser digits. Digital hair growth noted. No atrophic skin changes noted. Resolving edema to the left foot. No increased warmth the left hallux. Neurologic: Light touch protective sensation diminished bilateral feet. Dermatologic: Left hallux ulcer site is healed with full epithelialization. There is some minor callus formation noted Musculoskeletal: Left hallux rigidus deformity which is likely contributory to the left medial hallucal IPJ ulceration. Muscular strength full to bilateral lower extremity compartments. Skin Skin Narrative: ulcer left hallux, no infection Debridement Note Debridement Note Post-Debridement Measurements and Additional Note: Post-Debridement Measurements/Treatment OLIVIER - Nurse 1 - General Ulcer Assessment Start: 07/03/22 11:20 Freq: Status: Active Protocol: LOWEXT Activity Type Activity Date Activity User E-sign Co-sign Detail Recorded Client Recorded Date Recorded By Document 07/03/22 11:20 MW Desktop 07/03/22 11:27 MW Document 07/10/22 11:20 AK [id number] 07/10/22 11:22 AK Document 07/11/22 14:06 DL [id number] 07/11/22 14:18 DL Document 07/17/22 11:13 DL [id number] 07/17/22 11:24 DL Document 07/24/22 14:35 PL [id number] 07/24/22 14:37 PL 07/03/22 07/10/22 07/11/22 11:20 11:20 14:06 WC - Today's Visit Information Type of service Follow-up Visit Follow-up Visit Nurse-only (Physician/CNA PCT (Physician/CNA PCT Visit ) ) Arrival Mode Ambulatory Ambulatory Ambulatory Transfer Assistance None None Accompanied by Patient Identification Verified (Name & Yes Yes Yes ) Patient Requires Transmission-Based No No No Precautions Safety Precautions NA Finger Stick Blood Sugar(mg/dl) (if indicated): Blood Sugar Height and Weight Body Mass Index (BMI) 30.1 30.1 30.1 BMI Classification Obese Obese Obese Vital Signs Temperature (97.8 F-99.1 F) 98.3 F 97.2 F L Temperature Source Temporal Temporal Pulse Rate (60-100) 73 Pulse Location Monitor Respiratory Rate (12-18) 18 20 H Respiratory rate source Observation Observation Oxygen Delivery Method Room Air Blood Pressure (90/60-120/80) 128/65 H Blood Pressure Mean (mm Hg) 86 Source Monitor Position Sitting Blood Pressure Location Right Arm History Since Last Visit- (Skip if this is Patient's initial visit) Have you changed medications since your No No No last visit? Any new allergies or adverse reactions No No No Had a fall/change in ADL's that may No No No increase risk of falls Signs or symptoms of abuse and/or No No No neglect since last visit Have you been in the hospital since your No No No last visit? Has dressing in place as prescribed Yes No No Has compression in place as prescribed N/A Yes Yes Has offloadiing in place as prescribed N/A Yes Yes Experienced any changes in pain level or No No No management Left Footwear Regular Shoe Regular Shoe Total Contact Cast Right Footwear Regular Shoe Removable Cast Walker/Walking Boot Pain Scale: 0-10 Numeric Is Patient Pain Free? Yes Yes Yes 07/17/22 07/24/22 11:13 14:35 - Today's Visit Information Type of service Follow-up Visit Follow-up Visit (Physician/CNA PCT (Physician/CNA PCT ) ) Arrival Mode Ambulatory Ambulatory Transfer Assistance None None Accompanied by Patient Identification Verified (Name & Yes No ) Patient Requires Transmission-Based No Precautions Safety Precautions NA Finger Stick Blood Sugar(mg/dl) (if 150 indicated): Blood Sugar Stated by Patient Height and Weight Body Mass Index (BMI) 30.1 30.1 BMI Classification Obese Obese Vital Signs Temperature (97.8 F-99.1 F) 97.8 F Temperature Source Temporal Pulse Rate (60-100) 63 Pulse Location Monitor Respiratory Rate (12-18) 20 H Respiratory rate source Observation Oxygen Delivery Method Blood Pressure (90/60-120/80) 128/72 H Blood Pressure Mean (mm Hg) 90 Source Position Blood Pressure Location History Since Last Visit- (Skip if this is Patient's initial visit) Have you changed medications since your No No last visit? Any new allergies or adverse reactions No No Had a fall/change in ADL's that may No No increase risk of falls Signs or symptoms of abuse and/or No No neglect since last visit Have you been in the hospital since your No No last visit? Has dressing in place as prescribed Yes Yes Has compression in place as prescribed N/A Yes Has offloadiing in place as prescribed Yes Yes Experienced any changes in pain level or No management Left Footwear Total Contact Cast Right Footwear Pain Scale: 0-10 Numeric Is Patient Pain Free? Yes Yes - Nurse 1 - General Ulcer Measurement Start: 07/03/22 11:20 Freq: Status: Active Protocol: Activity Type Activity Date Activity User E-sign Co-sign Detail Recorded Client Recorded Date Recorded By Document 07/03/22 11:20 MW Desktop 07/03/22 11:27 MW Document 07/10/22 11:20 AK [id number] 07/10/22 11:22 AK Document 07/11/22 14:06 DL [id number] 07/11/22 14:18 DL Document 07/17/22 11:13 DL [id number] 07/17/22 11:24 DL Document 07/24/22 14:35 PL [id number] 07/24/22 14:37 PL 07/03/22 07/10/22 07/11/22 11:20 11:20 14:06 Wound Center Nurse 1 #1- L GR TOE -Combined with other wound No No -Current Size (cm) - Length 0.1 0.1 -Current Size (cm) - Width 0.1 0.1 -Current Size (cm) - Depth 0.1 0.1 -Total Square Cm 0.01 0.01 -Photo Taken No No -Epithelialization None Present -Tunneling No No -Undermining/Tunneling No No -Maximum Distance #2 (cm) -Circular Undermining No No -Change in Wound Grade/Stage No -Exudate Amt Small Small Medium -Exudate Type Sanguineous Serosanguineous Serosanguineous -Wound Margin Flat & Intact Distinct, Distinct, Outline Outline Attached Attached -Granulation Amt None Present (0 Small (1-33%) Small (1-33%) %) -Granulation Quality N/A N/A [place],Red -Slough/Fibrin Yes No -Necrosis Amt Large (67-100%) None Present (0 None Present (0 %) %) -Necrotic Tissue Type Adherent Slough -Structure Exposed N/A N/A N/A -Texture (Angie-wound Skin Appearance) Assessed,Callus No Abnormality, No Abnormality ,Scarring Assessed -Moisture (Angie-wound Skin Appearance) No Abnormality, No Abnormality, No Abnormality Assessed Assessed -Color (Angie-wound Skin Appearance) No Abnormality, No Abnormality, No Abnormality Assessed Assessed -Temperature (Angie-wound Skin No Abnormality No Abnormality No Abnormality Appearance) (Pt Warm) (Pt Warm) (Pt Warm) -Tenderness on Palpation (Angie-wound Yes No Skin Appearance) -Ulcer Cleansing Rinsed/ Rinsed/ Soap and Water Irrigated with Irrigated with Saline Saline -Foul Odor after Cleansing No No No -Anesthetic Used 5% Lidocaine 5% Lidocaine Gel Gel Lower Limb Edema Present No 07/17/22 07/24/22 11:13 14:35 Wound Center Nurse 1 #1- L GR TOE -Combined with other wound No -Current Size (cm) - Length 0.2 0.1 -Current Size (cm) - Width 0.2 0.1 -Current Size (cm) - Depth 0.2 0.1 -Total Square Cm 0.04 0.01 -Photo Taken No No -Epithelialization -Tunneling No -Undermining/Tunneling No -Maximum Distance #2 (cm) 0.2 -Circular Undermining Yes No -Change in Wound Grade/Stage -Exudate Amt None Present Small -Exudate Type Serosanguineous -Wound Margin Thickened -Granulation Amt Small (1-33%) Medium (34-66%) -Granulation Quality Pale Pale -Slough/Fibrin Yes -Necrosis Amt None Present (0 Medium (34-66%) %) -Necrotic Tissue Type Adherent Slough -Structure Exposed N/A -Texture (Angie-wound Skin Appearance) Callus,Scarring -Moisture (Angie-wound Skin Appearance) Dry/Scaly -Color (Angie-wound Skin Appearance) No Abnormality -Temperature (Angie-wound Skin No Abnormality Appearance) (Pt Warm) -Tenderness on Palpation (Angie-wound No Skin Appearance) -Ulcer Cleansing Soap and Water -Foul Odor after Cleansing No -Anesthetic Used 5% Lidocaine Gel Lower Limb Edema Present WC - Nurse 2 - General Ulcer CM Notes Start: 07/03/22 11:20 Freq: Status: Active Protocol: Activity Type Activity Date Activity User E-sign Co-sign Detail Recorded Client Recorded Date Recorded By Document 07/03/22 11:38 [id number] 07/03/22 11:42 Document 07/10/22 11:35 [id number] 07/10/22 11:37 Document 07/17/22 11:39 [id number] 07/17/22 11:40 07/03/22 07/10/22 07/17/22 11:38 11:35 11:39 Wound Center Nurse 2 #1- L GR TOE -Time 11:38 11:35 11:39 -Correct Patient Yes Yes Yes -Correct Side, Site, Position Yes Yes Yes -Correct Procedure Yes Yes Yes -Procedure Performed Yes Yes Yes -Type of Procedure Debridement Debridement Debridement -Clinical Debridement Subcutaneous Subcutaneous Subcutaneous -Tissue Removed Subcutaneous Subcutaneous Subcutaneous -Post Debridement (cm) - Length 0.2 0.2 0.1 -Post Debridement (cm) - Width 0.4 0.2 0.2 -Post Debridement (cm) - Depth 0.5 0.2 0.1 -Total Square (Post) (cm) 0.08 0.04 0.02 -Area of Debridement (cm) - Length 0.2 0.2 0.1 -Area of Debridement (cm) - Width 0.4 0.2 0.2 -Total Square (Area) (cm) 0.08 0.04 0.02 -Tunneling No No No -Undermining/Tunneling No No No -Circular Undermining No No No -Wound/Ulcer Outcome Not Healed Not Healed Not Healed -Ulcer Cleansing Rinsed/ Rinsed/ Rinsed/ Irrigated with Irrigated with Irrigated with Saline Saline Saline -Foul Odor after Cleansing No No No -Bioengineered Tissue No No No -Bleeding Controlled with Pressure Pressure Pressure -Treatment Response Procedure Procedure Procedure Tolerated Well Tolerated Well Tolerated Well -Offloading Yes Yes Yes -Type of Offloading Total Contact Total Contact Total Contact Cast (TCC) - Cast (TCC) - Cast (TCC) - Left ($) Left ($) Left ($) -Debridement - Subq, 1st 20sq cm Yes Yes Yes Pain Scale: 0-10 Numeric Is Patient Pain Free? Yes Yes Yes - Nurse 3 - General Ulcer D/C NN Start: 07/03/22 11:20 Freq: Status: Active Protocol: Activity Type Activity Date Activity User E-sign Co-sign Detail Recorded Client Recorded Date Recorded By Document 07/03/22 11:51 [facility] [id number] 07/03/22 11:52 [facility] Document 07/10/22 11:49 [facility] [id number] 07/10/22 11:50 [facility] Document 07/11/22 14:06 DL [id number] 07/11/22 14:18 DL Document 07/17/22 12:01 [facility] [id number] 07/17/22 12:01 [facility] 07/03/22 07/10/22 07/11/22 11:51 11:49 14:06 Wound Care Nurse 3 #1- L GR TOE -Ulcer Cleansing Rinsed/ Rinsed/ Soap and Water Irrigated with Irrigated with Saline Saline -Foul Odor after Cleansing No No No -Primary Dressing Applied Aquacel AG 2x2 Aquacel AG 2x2 Aquacel AG 2x2 -Other Dressing DRSG PER MW RN, TCC UNDERCAST SIZE 3 -Primary Dressing Covered/Secured with Dry Gauze, Secured with Tape -Other Covering tcc size 3 tcc undercast undercasting -Aquacel AG 2x2 1 1 1 Treatment Response Procedure Procedure Procedure Tolerated Well Tolerated Well Tolerated Well Vital Signs Respiratory Rate (12-18) 20 H Respiratory rate source Observation Pain Scale: 0-10 Numeric Is Patient Pain Free? Yes Yes Yes WC - Visit Discharge Discharge Condition Stable Stable Stable Ambulatory Status Ambulatory Ambulatory Ambulatory Transportation Private Auto Private Auto Private Auto Accompanied by Notes: Cast reapplied per Bharath Wei CNP. Pt c/o of cast rubbing is brown and back of leg from yesterdays application. 07/17/22 12:01 Wound Care Nurse 3 #1- L GR TOE -Ulcer Cleansing Rinsed/ Irrigated with Saline -Foul Odor after Cleansing No -Primary Dressing Applied Aquacel AG 2x2 -Other Dressing TCC UNDERCAST SIZE 4 -Primary Dressing Covered/Secured with -Other Covering -Aquacel AG 2x2 1 Treatment Response Procedure Tolerated Well Vital Signs Respiratory Rate (12-18) Respiratory rate source Pain Scale: 0-10 Numeric Is Patient Pain Free? Yes WC - Visit Discharge Discharge Condition Stable Ambulatory Status Ambulatory Transportation Private Auto Accompanied by Notes: Assessment/Plan Assessment/Plan (1) Diabetic peripheral neuropathy: CODE(S): E11.42 - 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 diabetic polyneuropathy (2) 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 foot ulcer: CODE(S): E11.621 - 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 foot ulcer; L97.509 - Non-pressure chronic ulcer of other part of unspecified foot with unspecified severity QUALIFIERS: Diabetes mellitus usp insulin use: unspecified usp insulin use status Qualified Code(s): E11.621 - 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 foot ulcer; L97.509 - Non-pressure chronic ulcer of other part of unspecified foot with unspecified severity (3) Non-pressure chronic ulcer of other part of left foot with fat layer exposed: CODE(S): L97.522 - Non-pressure chronic ulcer of other part of left foot with fat layer exposed PLAN: Patient examined evaluated. Patient is diabetic with neuropathy. His A1c is now less than 7% and he was advised on the importance of keeping this in the safe range to prevent recurrent ulcers and other diabetic problems. Patient has a hallux IPJ wound on the left great toe. This is healed today and is peripheral callus was gently debrided with a 15 blade scalpel. Full epithelialization is noted without local signs of infection. I recommend gentle transition back to an extra-depth diabetic shoe. He will schedule to get fitted for this at the foot and ankle center including offloading Plastizote liners/inserts. To avoid overdoing it with activity while on his upcoming vacation. He leaves next week. He needs to wear protective and supportive shoes. He understands he is at risk for reoccurrence especially the next couple weeks. To discontinue dressing care because the ulcer is healed. He was discharged from the wound healing center today and will follow up with Dr. Esparza for healed wound check and he also has questions about potential curative surgical intervention. To wash feet daily with soap and water. To apply lotion to adjacent skin to keep integrity intact. The medical decision making level is low. There is noted low risk of morbidity after considering this treatment plan and diagnostic data. The problems addressed require a low medical decision making level which includes two or more minor problems, a stable chronic illness, or an acute uncomplicated illness or injury. (4) Hallux limitus of left foot: CODE(S): M20.5X2 - Other deformities of toe(s) (acquired), left foot
== END 2022-07-24 15:21 | disposition home or self-care (01) ==
LOC: WC 14:00
PROVIDERS: PCP Family Medicine; Visit Provider Podiatrist
DX: E11.621 Type 2 diabetes mellitus with foot ulcer (principal); L97.522 Non-pressure chronic ulcer of other part of left foot with fat layer exposed; E11.42 Type 2 diabetes mellitus with diabetic polyneuropathy; E11.22 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 diabetic chronic kidney disease; N18.6 End stage renal disease; M20.5X2 Other deformities of toe(s) (acquired), left foot
CPT/HCPCS: 11042; 29445; 87070; 87075; 87077; 87186; 87205; 99213; G0463

== ENCOUNTER → 2022-08-23 | Outpatient (CLI) | payer MEDICARE, SELFPAY ==
--- NOTE | 2022-08-23 16:12 | MRI_ITS ---
ACR Level 3 findings have been noted. An addendum which confirms receipt of the report will follow. STUDY: MRI LEFT FOREFOOT WITHOUT CONTRAST REASON FOR EXAM: Pain/swelling of the great toe and across metatarsals, history of previous wound, diabetic, evaluate osteomyelitis. TECHNIQUE: Standardized fat and water weighted pulse sequences were obtained in all 3 orthogonal planes. COMPARISON: MRI images 04/26/2022, radiographs 05/02/2022. FINDINGS: There is inflammation of the joint capsule of the metatarsophalangeal joint of the hallux (inversion recovery short axis image 21). There is interval development of bone edema of the head and distal diaphysis of the first metatarsal and of the base and diaphysis of the first proximal phalanx (inversion recovery sagittal images 21-25) with corresponding decreased T1 bone marrow signal in the head/neck of the first metatarsal at the dorsal aspect of the first proximal phalanx with a pathologic fracture of the first metatarsal head (T1 sagittal images 21-24). Normal tibial and fibular sesamoids, with normal sesamoids-first metatarsal articulations. Normal interphalangeal joint of the hallux. Normal distal phalanx of the great toe. Normal medial and lateral heads of the flexor hallucis brevis tendons. Normal flexor and extensor hallucis longus tendons. There is interval development of bone edema of the head and distal diaphysis of the second metatarsal (inversion recovery sagittal images 15, 16) with corresponding decreased T1 bone marrow signal in the head of the first metatarsal and a pathologic fracture of the second metatarsal head (T1 sagittal images 15, 16). Normal third through fifth metatarsophalangeal (MTP) joints. Normal interphalangeal joints of the second through fifth toes. Normal proximal, middle and distal phalanges of the second through fifth toes. There is a small intermetatarsal neuroma of the second webspace (T1 short axis image 26) measuring 0.25 cm in transverse dimension. Normal flexor and extensor tendons of the second through fifth toes. There is a small focus of bone edema in the plantar aspect of the fourth metatarsal head (inversion recovery sagittal image 8) corresponding decreased T1 bone marrow signal (T1 sagittal image 8), possibly representing early osteomyelitis. There is mild edema in the intrinsic muscles of the forefoot. There is edema in the subcutis adipose space without focal fluid collection to indicate soft tissue abscess. MRI/Lower Ext/No Jt/w/o IMPRESSION: Interval development of signal alteration of the distal first metatarsal and first proximal phalanx suggestive of osteomyelitis with pathologic fracture of the first metatarsal head. Interval development of signal alteration of the second metatarsal head suggestive of osteomyelitis with pathologic fracture of the second metatarsal head. Interval development of small signal alteration of the plantar aspect of the head of the fourth metatarsal, possibly representing early osteomyelitis. Small intermetatarsal neuroma of the second webspace. Edema in the subcutis adipose space without demonstrated soft tissue abscess. Electronically Signed: Terence oRlle MD at 9:26 EDT ,
== END | disposition home or self-care (01) ==
LOC: MRI 16:04
PROVIDERS: PCP Family Medicine; Visit Provider Podiatrist
DX: M86.172 Other acute osteomyelitis, left ankle and foot (principal)
CPT/HCPCS: 73718

== ENCOUNTER → 2022-08-27 | Outpatient (CLI) | payer MEDICARE, SELFPAY ==
--- NOTE | 2022-08-27 | FLU_PTH ---
PATIENT: ROBERT DIEZ LOC: [facility] U#:[id number] AGE/SX: 62/M ROOM: RE08/27/[address]: Dr. Santo Esparza DPM : 1960 BED: DIS: 08/27/2022 SPEC #: [id number] RECD: 08/27/22 11:00 STATUS: REY BRUCE #: [id number] BILLIE: 08/27/22 00:[address]: Santo Esparza DEPT: CYTOLOGY RECD BY: Gail Woods ENTERED: 08/29/22 07:35 SP TYPE: Fluid OTHR DR: Dr. Marques Casanova MD Tissues: Synovial fluid Procedures: Special Stain Group II Surgery Specimen Level IV Cytospin Fluid HEADER OPERATION: Not noted PRE-OP DIAGNOSIS: M77.52 TISSUE SUBMITTED: Joint fluid for cytology DIAGNOSIS CYTOLOGY Joint fluid for cytology (cytospin and cell block): Negative for malignant cells. See comment. SJ:stacey 08/30/2022 COMMENT The specimen is bloody and paucicellular. A minute fragment of bone is also noted. Correlation with clinical findings and appropriate follow up are necessary. CYTOLOGY STUDY Slides are reviewed. CYTOLOGY GROSS Received is <1 ml of cloudy red fluid labeled with the patient's name and and designated per the requisition as joint. Submitted for cytology preparation including cell block. / stacey 08/29/2022 TC:5 CPT: 42604, 76912
[2022-08-27 17:44] LABS: Cytology, Body Fluid / CSF SEE PATHOLOGY REPORT
== END | disposition home or self-care (01) ==
PROVIDERS: PCP Family Medicine; Visit Provider Podiatrist
DX: M77.52 Other enthesopathy of left foot and ankle (principal)
CPT/HCPCS: 87070; 87075; 87205; 88108; 88305; 88313

== ENCOUNTER 2022-09-04 07:42 | Outpatient (RCR) | payer MEDICARE, SELFPAY ==
[2022-07-25 23:06] VITALS: BMI 28.1
[2022-09-04 08:36] LABS: Absolute Lymphocyte Count 1.12 X10^3/uL (0.83-4.51); Absolute Neutrophil Count 6.5 X10^3/uL (2.0-7.7); Basophil# 0.06 X10^3/uL; Basophil% 0.7 % (0-1); Eosinophil# 0.24 X10^3/uL; Eosinophils% 2.7 % (0-5); Hematocrit 46.7 % (40-54); Hemoglobin 14.3 g/dL (13.0-16.5); Lymphocyte # 1.12 X10^3/ul (0.83-4.51); Lymphocyte % 12.6 % (19-41); Mean Corp Hgb Conc 30.6 g/dL (32-36); Mean Corpuscular Volume 84.9 fL (80-94); Mean Platelet Vol. 10.5 fl (6.2-12.0); Monocyte# 0.87 X10^3/uL; Monocyte% 9.8 % (0-10); NRBC Flagged by Analyzer 0 % (0-5); Neutrophil # 6.53 X10^3/uL (2.7-7.7); Neutrophil % 73.2 % (47-70); Platelet Count 225 K/mm3 (150-450); RBC Distribution Width CV 14.3 % (11.6-14.6); RBC Distribution Width SD 43.8 fl (35.1-43.9); White Blood Count 8.9 K/mm3 (4.4-11.0)
[2022-09-04 08:49] LABS: Erythrocyte Sedimentation Rate 10 mm/hr (0-20)
[2022-09-04 08:50] LABS: ALB/GLOB Ratio 1.2 RATIO (0.9-2.4); AST(SGOT) 13 U/L (15-37); Alanine Aminotransfer ALT/SGPT 20 U/L (16-61); Albumin, Serum 3.4 g/dL (3.2-5.0); Alkaline Phosphatase 114 U/L (45-117); Anion Gap 9 (5-15); BUN 38 mg/dL (7-18); BUN/Creat Ratio 16.5 RATIO (10-20); CRP 3.95 mg/L (0.0-3.0); Calcium,Total 8.4 mg/dL (8.5-10.1); Chloride 107 mmol/L (98-107); Creatinine, Serum 2.31 mg/dL (0.70-1.30); EST Glomerular Filtration Rate 31 mL/min (>60); Est Glom Filt Rate - Afr Amer 37 mL/min (>60); Globulin 2.8 g/dL (2.2-4.2); Glucose 129 mg/dL (74-106); Magnesium 1.6 mg/dL (1.6-2.6); Phosphorus 4.3 mg/dL (2.5-4.9); Potassium 3.3 mmol/L (3.5-5.1); Protein, Total 6.2 g/dL (6.4-8.2); Sodium Level 141 mmol/L (136-145)
== END 2022-09-04 18:00 | disposition home or self-care (01) ==
LOC: LAB 07:42
PROVIDERS: PCP Family Medicine
DX: Z09 Encounter for follow-up examination after completed treatment for conditions other than malignant neoplasm (principal); E78.2 Mixed hyperlipidemia; D64.9 Anemia, unspecified; D72.9 Disorder of white blood cells, unspecified; R79.9 Abnormal finding of blood chemistry, unspecified; Z94.0 Kidney transplant status
CPT/HCPCS: 36415; 80053; 80197; 83735; 84100; 85025; 85652; 86140

== ENCOUNTER → 2022-10-12 | Outpatient (CLI) | payer MEDICARE, SELFPAY ==
--- NOTE | 2022-10-12 12:59 | VDLE_ITS ---
Reason For Study: LEG SWELLING RIGHT LEFT GSV is normal. GSV is normal. CFV is compressible, spontaneous, phasic, CFV is compressible, spontaneous, phasic, competent and demonstrates normal competent, and demonstrates normal augmentation. augmentation. FV is compressible, spontaneous, phasic, FV is compressible, spontaneous, phasic, competent and demonstrates normal competent and demonstrates normal augmentation. augmentation. POP V is compressible, spontaneous, phasic, POP V is compressible, spontaneous, phasic, competent and demonstrates normal competent and demonstrates normal augmentation. augmentation. T/P Trunk is compressible. T/P Trunk is compressible. PTV is compressible. PTV is compressible. RT PerV is compressible. LT PerV is compressible. Procedure This is a venous duplex using B-mode, color flow and spectral Doppler. Exam performed in department. The exam was diagnostic. A preliminary report was called and/or faxed to Dr. Esparza. VL/Venous Duplex US - Zen Extrem Interpretation Summary No evidence for acute deep venous thrombosis bilateral lower extremities with p atent and compressible bilateral great saphenous veins. Ordering Physician: Marques Casanova Referring Physician: Santo Esparza Performed By: Shahid Senior RVT
== END | disposition home or self-care (01) ==
PROVIDERS: PCP Family Medicine; Referring Provider Podiatrist; Visit Provider Podiatrist
DX: R22.43 Localized swelling, mass and lump, lower limb, bilateral (principal); M79.89 Other specified soft tissue disorders
CPT/HCPCS: 93970

== ENCOUNTER 2022-11-12 07:30 | Outpatient (RCR) | payer MEDICARE, SELFPAY ==
[2022-09-25 09:40] VITALS: BMI 28.1
[2022-11-12 08:17] LABS: Absolute Lymphocyte Count 0.81 X10^3/uL (0.83-4.51); Absolute Neutrophil Count 6.8 X10^3/uL (2.0-7.7); Basophil# 0.05 X10^3/uL; Basophil% 0.6 % (0-1); Eosinophil# 0.18 X10^3/uL; Hematocrit 46.9 % (40-54); Hemoglobin 14.4 g/dL (13.0-16.5); Lymphocyte # 0.81 X10^3/ul (0.83-4.51); Mean Corp Hgb Conc 30.7 g/dL (32-36); Mean Corpuscular Hgb 25.7 pg (27.0-32.0); Mean Corpuscular Volume 83.8 fL (80-94); Monocyte# 1.11 X10^3/uL; Monocyte% 12.4 % (0-10); NRBC Flagged by Analyzer 0 % (0-5); Neutrophil # 6.78 X10^3/uL (2.7-7.7); Neutrophil % 75.4 % (47-70); Platelet Count 189 K/mm3 (150-450); RBC Distribution Width CV 14.3 % (11.6-14.6); RBC Distribution Width SD 43.4 fl (35.1-43.9)
[2022-11-12 08:44] LABS: Anion Gap 7 (5-15); BUN 43 mg/dL (7-18); Chloride 107 mmol/L (98-107); Creatinine, Serum 2.17 mg/dL (0.70-1.30); EST Glomerular Filtration Rate 33 mL/min (>60); Est Glom Filt Rate - Afr Amer 40 mL/min (>60); Glucose 142 mg/dL (74-106); Potassium 3.3 mmol/L (3.5-5.1); Sodium Level 142 mmol/L (136-145)
[2022-11-14 13:35] LABS: Tacrolimus (FK506) 5.2 ng/mL (2.0-20.0)
== END 2022-11-12 18:00 | disposition home or self-care (01) ==
LOC: LAB 07:30
PROVIDERS: PCP Family Medicine
DX: Z09 Encounter for follow-up examination after completed treatment for conditions other than malignant neoplasm (principal); E78.2 Mixed hyperlipidemia; D64.9 Anemia, unspecified; D72.9 Disorder of white blood cells, unspecified; R79.9 Abnormal finding of blood chemistry, unspecified; Z94.0 Kidney transplant status
CPT/HCPCS: 36415; 80051; 80197; 82565; 82947; 84520; 85025

== ENCOUNTER → 2022-11-29 | Outpatient (CLI) | payer MEDICARE, SELFPAY ==
[2022-11-29 18:31] LABS: ALB/GLOB Ratio 1.6 RATIO (0.9-2.4); AST(SGOT) 12 U/L (15-37); Alanine Aminotransfer ALT/SGPT 27 U/L (16-61); Albumin, Serum 4.1 g/dL (3.2-5.0); Alkaline Phosphatase 152 U/L (45-117); Anion Gap 9 (5-15); BUN 39 mg/dL (7-18); BUN/Creat Ratio 16.9 RATIO (10-20); Chloride 106 mmol/L (98-107); Creatinine, Serum 2.31 mg/dL (0.70-1.30); EST Glomerular Filtration Rate 31 mL/min (>60); Est Glom Filt Rate - Afr Amer 37 mL/min (>60); Globulin 2.5 g/dL (2.2-4.2); Glucose 187 mg/dL (74-106); Potassium 3.6 mmol/L (3.5-5.1); Protein, Total 6.6 g/dL (6.4-8.2); Sodium Level 140 mmol/L (136-145)
== END | disposition home or self-care (01) ==
LOC: MFPLAB 16:58
PROVIDERS: PCP Family Medicine; Visit Provider Family Medicine
DX: N28.9 Disorder of kidney and ureter, unspecified (principal)
CPT/HCPCS: 36415; 80053

== ENCOUNTER 2022-12-31 07:44 | Outpatient (RCR) | payer MEDICARE, SELFPAY ==
[2022-12-26 07:40] VITALS: BMI 28.1
[2022-12-31 09:06] LABS: Absolute Lymphocyte Count 1.03 X10^3/uL (0.83-4.51); Basophil# 0.05 X10^3/uL; Basophil% 0.4 % (0-1); Eosinophil# 0.13 X10^3/uL; Eosinophils% 1.1 % (0-5); Hematocrit 47.1 % (40-54); Hemoglobin 14.5 g/dL (13.0-16.5); Lymphocyte # 1.03 X10^3/ul (0.83-4.51); Lymphocyte % 9.1 % (19-41); Mean Corp Hgb Conc 30.8 g/dL (32-36); Mean Corpuscular Volume 84.4 fL (80-94); Mean Platelet Vol. 10.5 fl (6.2-12.0); Monocyte# 1.01 X10^3/uL; Monocyte% 8.9 % (0-10); NRBC Flagged by Analyzer 0 % (0-5); Neutrophil # 9.02 X10^3/uL (2.7-7.7); Neutrophil % 79.5 % (47-70); Platelet Count 245 K/mm3 (150-450); RBC Distribution Width CV 14.6 % (11.6-14.6); RBC Distribution Width SD 44.3 fl (35.1-43.9); Red Blood Count 5.58 M/mm3 (4.6-6.2); White Blood Count 11.4 K/mm3 (4.4-11.0)
[2022-12-31 09:49] LABS: ALB/GLOB Ratio 1.3 RATIO (0.9-2.4); AST(SGOT) 13 U/L (15-37); Alanine Aminotransfer ALT/SGPT 26 U/L (16-61); Albumin, Serum 3.6 g/dL (3.2-5.0); Alkaline Phosphatase 131 U/L (45-117); Anion Gap 11 (5-15); BUN 45 mg/dL (7-18); BUN/Creat Ratio 19.2 RATIO (10-20); Calcium,Total 8.8 mg/dL (8.5-10.1); Chloride 107 mmol/L (98-107); Cholesterol 120 mg/dL (200); Creatinine, Serum 2.34 mg/dL (0.70-1.30); EST Glomerular Filtration Rate 30 mL/min (>60); Est Glom Filt Rate - Afr Amer 37 mL/min (>60); Ferritin 264 ng/mL (26-388); Globulin 2.8 g/dL (2.2-4.2); Glucose 144 mg/dL (74-106); High Density Lipoprotein 27 mg/dL; Iron 70 ug/dL (65-175); Iron Binding Capacity,Total 256 ug/dL (250-450); Magnesium 1.5 mg/dL (1.6-2.6); Phosphorus 3.5 mg/dL (2.5-4.9); Potassium 3.2 mmol/L (3.5-5.1); Protein, Total 6.4 g/dL (6.4-8.2); Sodium Level 143 mmol/L (136-145); Triglycerides 251 mg/dL; Very Low Density Lipoprotein 50 mg/dL (5-40)
[2023-01-02 18:47] LABS: Tacrolimus (FK506) 6.8 ng/mL (2.0-20.0); Transferrin 190 mg/dL (177-329)
== END 2022-12-31 18:00 | disposition home or self-care (01) ==
LOC: LAB 07:44
PROVIDERS: PCP Family Medicine
DX: Z09 Encounter for follow-up examination after completed treatment for conditions other than malignant neoplasm (principal); E78.2 Mixed hyperlipidemia; D64.9 Anemia, unspecified; D72.9 Disorder of white blood cells, unspecified; R79.9 Abnormal finding of blood chemistry, unspecified; Z94.0 Kidney transplant status
CPT/HCPCS: 36415; 80053; 80061; 80197; 82728; 83540; 83550; 83735; 84100; 84466; 84550; 85025

== ENCOUNTER → 2023-01-22 | Outpatient (CLI) | payer MEDICARE, SELFPAY ==
--- NOTE | 2023-01-22 12:50 | RAD_ITS ---
STUDY: X-RAY CHEST REASON FOR EXAM: Male, 62 years old. Persistent cough; sob -- STAT TECHNIQUE: PA and lateral views of the chest. COMPARISON: Comparison is made with prior study from 10/15/2020. FINDINGS: Mild elevation of the right hemidiaphragm. Increased markings are seen at the lung bases slightly more prominent on the left side suggestive of bibasilar atelectasis. There is no demonstrated pleural abnormality. Normal size heart. Normal mediastinum and kieran. Normal visualized pulmonary arteries. There is atherosclerotic calcification of the aortic arch with tortuosity. Normal visualized thoracic spine. Healed left rib fractures. There is no demonstrated abnormality of the visualized soft tissue structures of the upper abdomen. RAD/Chest PA and Lateral IMPRESSION: Findings suggestive of mild degree of bibasilar atelectasis more prominent on the left side. Electronically Signed: Godwin Palmer MD at 14:11 EST ,
[2023-01-22 16:24] LABS: Vitamin D,25 Hydroxy 16.7 ng/mL
[2023-01-22 16:26] LABS: ALB/GLOB Ratio 1.2 RATIO (0.9-2.4); AST(SGOT) 16 U/L (15-37); Alanine Aminotransfer ALT/SGPT 23 U/L (16-61); Albumin, Serum 3.8 g/dL (3.2-5.0); Alkaline Phosphatase 136 U/L (45-117); Anion Gap 11 (5-15); BUN 33 mg/dL (7-18); BUN/Creat Ratio 15.5 RATIO (10-20); Calcium,Total 9.3 mg/dL (8.5-10.1); Chloride 107 mmol/L (98-107); Cholesterol 139 mg/dL (200); Creatinine, Serum 2.13 mg/dL (0.70-1.30); EST Glomerular Filtration Rate 34 mL/min (>60); Est Glom Filt Rate - Afr Amer 41 mL/min (>60); Globulin 3.2 g/dL (2.2-4.2); Glucose 91 mg/dL (74-106); High Density Lipoprotein 32 mg/dL; Potassium 3.6 mmol/L (3.5-5.1); Sodium Level 142 mmol/L (136-145); Triglycerides 226 mg/dL; Very Low Density Lipoprotein 45 mg/dL (5-40)
[2023-01-22 16:43] LABS: Calcium,Total 9.5 mg/dL (8.5-10.1); T4 Free Direct 1.22 ng/dL (0.76-1.46); Thyroid Stim Hormone (TSH) 0.38 uIU/mL (0.358-3.74)
[2023-01-23 08:46] LABS: PTHIN 393.1 pg/mL (18.4-80.1)
[2023-01-25 15:56] LABS: Vitamin D 1,25-Dihydroxy 50.8 pg/mL (24.8-81.5)
== END | disposition home or self-care (01) ==
LOC: MTLAB 12:45
PROVIDERS: PCP Family Medicine; Referring Provider Nurse Practitioner Family; Visit Provider Nurse Practitioner Family
DX: R06.02 Shortness of breath (principal); E11.69 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 other specified complication; E11.22 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 diabetic chronic kidney disease; E55.9 Vitamin D deficiency, unspecified; N18.9 Chronic kidney disease, unspecified; I12.9 Hypertensive chronic kidney disease with stage 1 through stage 4 chronic kidney disease, or unspecified chronic kidney disease; R05.3 Chronic cough
CPT/HCPCS: 36415; 71046; 80053; 80061; 82306; 82310; 82652; 83036; 83970; 84439; 84443

== ENCOUNTER 2023-02-12 07:43 | Outpatient (RCR) | payer MEDICARE, SELFPAY ==
[2023-01-22 23:03] VITALS: BMI 28.1
[2023-02-12 09:28] LABS: Absolute Lymphocyte Count 1.24 X10^3/uL (0.83-4.51); Absolute Neutrophil Count 7.5 X10^3/uL (2.0-7.7); Basophil# 0.05 X10^3/uL; Basophil% 0.5 % (0-1); Eosinophil# 0.17 X10^3/uL; Eosinophils% 1.7 % (0-5); Hematocrit 45.8 % (40-54); Hemoglobin 14.2 g/dL (13.0-16.5); Lymphocyte # 1.24 X10^3/ul (0.83-4.51); Lymphocyte % 12.5 % (19-41); Mean Corpuscular Hgb 26.3 pg (27.0-32.0); Mean Platelet Vol. 10.4 fl (6.2-12.0); Monocyte# 0.94 X10^3/uL; Monocyte% 9.4 % (0-10); NRBC Flagged by Analyzer 0 % (0-5); Neutrophil # 7.51 X10^3/uL (2.7-7.7); Neutrophil % 75.5 % (47-70); Platelet Count 225 K/mm3 (150-450); RBC Distribution Width CV 14.4 % (11.6-14.6); Red Blood Count 5.39 M/mm3 (4.6-6.2)
[2023-02-12 09:44] LABS: Anion Gap 8 (5-15); BUN 37 mg/dL (7-18); Chloride 109 mmol/L (98-107); Creatinine, Serum 2.11 mg/dL (0.70-1.30); EST Glomerular Filtration Rate 34 mL/min (>60); Est Glom Filt Rate - Afr Amer 41 mL/min (>60); Glucose 128 mg/dL (74-106); Potassium 3.4 mmol/L (3.5-5.1); Sodium Level 142 mmol/L (136-145)
[2023-02-14 20:24] LABS: Tacrolimus (FK506) 6.9 ng/mL (2.0-20.0)
== END 2023-03-24 01:22 | disposition home or self-care (01) ==
LOC: LAB 07:43
PROVIDERS: PCP Family Medicine
DX: Z09 Encounter for follow-up examination after completed treatment for conditions other than malignant neoplasm (principal); E78.2 Mixed hyperlipidemia; D64.9 Anemia, unspecified; D72.9 Disorder of white blood cells, unspecified; R79.9 Abnormal finding of blood chemistry, unspecified; Z94.0 Kidney transplant status
CPT/HCPCS: 36415; 80051; 80197; 82565; 82947; 84520; 85025

== ENCOUNTER → 2023-02-12 | Outpatient (CLI) | payer MEDICARE, SELFPAY ==
--- NOTE | 2023-02-12 08:22 | BD_ITS ---
STUDY: DUAL ENERGY X-RAY ABSORPTIOMETRY / DXA REASON FOR EXAM: Male, 62 years old. Screening TECHNIQUE: Bone Mineral Density (BMD) measurements of lumbar spine and left hip were obtained. COMPARISON: None. FINDINGS: Lumbar Spine (L1-L4): g/cm2 (0.794) / T-score (-2.7) / Z-score (-2.1) Findings are suggestive of osteoporosis with a high fracture risk. Left Femur Total: g/cm2 (0.748) / T-score (-1.9) / Z-score (-1.4) Left Femoral Neck: g/cm2 (0.572) / T-score (-2.6) / Z-score (-1.7) BD/Dexa Bone Density Study IMPRESSION: The patient is considered osteoporotic as outlined below according to World Mandeep Organization (WHO) criteria with a high fracture risk. Reference Information: The T-score is the number of standard deviations above or below the standard which is normal for young adults at their peak bone mineral density. The World Health Organization (WHO) interprets the T-scores as follows: Above -1 Normal bone density Between -1 and -2.5 Osteopenia Equal to / or below -2.5 Osteoporosis As a practical clinical guideline, osteopenia may be graded as follows: Mild -1 through -1.5 Moderate -1.6 through -2.0 Severe -2.1 through -2.4 The Z-score is the number of standard deviations above or below age-matched controls. A Z-score of less than -1.5 would be considered abnormal. References: 1. NIH Osteoporosis and Related Bone Diseases www osteo.org 2. International Society for Clinical Densitometry www iscd.org 3. National Osteoporosis Foundation www nof.org Electronically Signed: Godwin Palmer MD at 11:17 EDT ,
== END | disposition home or self-care (01) ==
LOC: OPBD 08:05
PROVIDERS: PCP Family Medicine; Referring Provider Internal Medicine Endocrinology, Diabetes & Metabolism; Visit Provider Internal Medicine Endocrinology, Diabetes & Metabolism
DX: E21.3 Hyperparathyroidism, unspecified (principal); N18.32 Chronic kidney disease, stage 3b; D64.9 Anemia, unspecified; D72.9 Disorder of white blood cells, unspecified; R79.9 Abnormal finding of blood chemistry, unspecified; E78.2 Mixed hyperlipidemia; Z94.0 Kidney transplant status; Z09 Encounter for follow-up examination after completed treatment for conditions other than malignant neoplasm
CPT/HCPCS: 36415; 77080; 80051; 80197; 82565; 82947; 84520; 85025

== ENCOUNTER → 2023-03-05 | Outpatient (CLI) | payer MEDICARE, SELFPAY ==
[2023-03-05 14:46] VITALS: BP 134/68; PULSE 71; RESP 16; O2SAT 97; BMI 30.1
[2023-03-05] MEDS: DENOSUMAB 60 MG/ML SC (14:50)
== END | disposition home or self-care (01) ==
LOC: MEDOUTP 14:36
PROVIDERS: PCP Family Medicine; Referring Provider Nurse Practitioner Family; Visit Provider Nurse Practitioner Family
DX: M81.0 Age-related osteoporosis without current pathological fracture (principal)
CPT/HCPCS: 96372; J0897

== ENCOUNTER 2023-04-08 07:11 | Outpatient (RCR) | payer MEDICARE, SELFPAY ==
[2023-03-24 01:22] VITALS: BMI 28.1
[2023-04-08 08:08] LABS: Absolute Lymphocyte Count 1.37 X10^3/uL (0.83-4.51); Absolute Neutrophil Count 9.1 X10^3/uL (2.0-7.7); Basophil# 0.08 X10^3/uL; Basophil% 0.7 % (0-1); Eosinophil# 0.27 X10^3/uL; Eosinophils% 2.2 % (0-5); Hematocrit 46.6 % (40-54); Hemoglobin 14.6 g/dL (13.0-16.5); Lymphocyte # 1.37 X10^3/ul (0.83-4.51); Lymphocyte % 11.3 % (19-41); Mean Corp Hgb Conc 31.3 g/dL (32-36); Mean Corpuscular Hgb 26.6 pg (27.0-32.0); Mean Platelet Vol. 10.1 fl (6.2-12.0); Monocyte# 1.28 X10^3/uL; Monocyte% 10.6 % (0-10); NRBC Flagged by Analyzer 0 % (0-5); Neutrophil # 9.05 X10^3/uL (2.7-7.7); Neutrophil % 74.6 % (47-70); Platelet Count 236 K/mm3 (150-450); RBC Distribution Width CV 14.4 % (11.6-14.6); RBC Distribution Width SD 44.4 fl (35.1-43.9); Red Blood Count 5.48 M/mm3 (4.6-6.2); White Blood Count 12.1 K/mm3 (4.4-11.0)
[2023-04-08 08:29] LABS: Anion Gap 10 (5-15); BUN 38 mg/dL (7-18); BUN/Creat Ratio 19.5 RATIO (10-20); Calcium,Total 8.4 mg/dL (8.5-10.1); Chloride 105 mmol/L (98-107); Creatinine, Serum 1.95 mg/dL (0.70-1.30); EST Glomerular Filtration Rate 37 mL/min (>60); Est Glom Filt Rate - Afr Amer 45 mL/min (>60); Glucose 136 mg/dL (74-106); Magnesium 1.6 mg/dL (1.6-2.6); Phosphorus 3.5 mg/dL (2.5-4.9); Potassium 3.4 mmol/L (3.5-5.1); Sodium Level 141 mmol/L (136-145)
[2023-04-10 12:05] LABS: Hemoglobin A1c 6.8 % (3.8-5.6)
[2023-04-11 02:07] LABS: Tacrolimus (FK506) 6.8 ng/mL (2.0-20.0)
== END 2023-04-24 18:00 | disposition home or self-care (01) ==
LOC: LAB 07:11
PROVIDERS: Nurse Practitioner Family; PCP Family Medicine
DX: Z09 Encounter for follow-up examination after completed treatment for conditions other than malignant neoplasm (principal); E78.2 Mixed hyperlipidemia; D64.9 Anemia, unspecified; D72.9 Disorder of white blood cells, unspecified; R79.9 Abnormal finding of blood chemistry, unspecified; Z94.0 Kidney transplant status
CPT/HCPCS: 36415; 80048; 80197; 83036; 83735; 84100; 85025

== ENCOUNTER → 2023-05-20 | Outpatient (CLI) | payer MEDICARE, SELFPAY ==
--- NOTE | 2023-05-21 08:29 | PFT ---
INTRODUCTION: The patient is a 62-year-old male that presents for pulmonary function studies secondary to a diagnosis of ANCA vasculitis. Respiratory therapy reported good patient effort. Bronchodilators were used during testing. INTERPRETATION: Forced expiration spirometry demonstrates no evidence of a large airways obstructive ventilatory defect. There was no significant response to aerosolized bronchodilators. Spirograms are of good quality and plateau normally. The respiratory flow-volume loop is normal. Body plethysmography was performed and revealed lung volumes to be within normal limits. Diffusing capacity by single breath CO was also within normal limits. IMPRESSION: Grossly normal pulmonary function studies.
== END | disposition home or self-care (01) ==
LOC: PSN 13:11
PROVIDERS: PCP Family Medicine
DX: I77.82 Antineutrophilic cytoplasmic antibody [ANCA] vasculitis (principal)
CPT/HCPCS: 94060; 94726; 94729

== ENCOUNTER → 2023-06-10 | Outpatient (CLI) | payer MEDICARE, SELFPAY ==
--- NOTE | 2023-06-12 16:53 | STRESSREP ---
Stress Test Report Pharmacologic myocardial perfusion stress test. 63-year-old male with a history of chest pain Resting EKG demonstrates sinus rhythm with a rate of 65 bpm. Resting blood pressure is 118/60 mmHg. 0.4 mg of regadenoson was infused per usual protocol followed by rapid intravenous saline flush injection. Continuous EKG monitoring was performed. The maximum heart rate was 93 bpm which was 58% of max impacted heart rate the maximum workload was 1 metabolic equivalent. At rest there were no ST or T wave changes noted to suggest ischemia and at peak infusion nonspecific ST changes were noted which did not meet the criteria for ischemia. No clinical angina is noted. The final blood pressure was 124/64 mmHg. Myocardial perfusion protocol. 11.9 mCi of technetium 99m sestamibi was injected at rest. 0.4 mg of regadenoson was infused per usual protocol. At peak infusion 35.2 mCi of technetium 99m sestamibi was injected stress images were obtained stress and rest images were reconstructed and compared in the short axis vertical long and horizontal long axis. Gated images were also obtained. Perfusion SPECT analysis: Review of the stress images demonstrate normal uptake of tracer noted in all areas of the myocardium. The resting images similar demonstrated normal uptake of tracer noted in all areas of the myocardium. No areas of reversibility are noted to suggest ischemia and no previous infarct is noted. Gated SPECT analysis: The gated ejection fraction is 66. Conclusion: Normal pharmacologic myocardial perfusion stress test. Preserved ejection fraction.
== END | disposition home or self-care (01) ==
LOC: CVS 06:07
PROVIDERS: PCP Family Medicine; Referring Provider Internal Medicine Cardiovascular Disease; Visit Provider Internal Medicine Cardiovascular Disease
DX: R01.1 Cardiac murmur, unspecified (principal); I25.10 Atherosclerotic heart disease of native coronary artery without angina pectoris
CPT/HCPCS: 78452; 93017; A9500; A4216; J2785

== ENCOUNTER → 2023-06-17 | Outpatient (CLI) | payer MEDICARE, SELFPAY ==
--- NOTE | 2023-06-17 14:50 | ECHOD_ITS ---
Reason For Study: Murmur Procedure This was a 2D Doppler, Color Flow transthoracic echocardiogram. Did not use Definity due to kidney transplant. Exam performed in department. Left Ventricle Normal LV size. Left ventricular systolic function is normal. The estimated ejection fraction is 60 %. Right Ventricle Normal RV size. Normal systolic function. Atria Normal left atrium. Normal right atrium. Mitral Valve Normal mitral valve. Tricuspid Valve Normal tricuspid valve. Aortic Valve The aortic valve is not well visualized. Mild focal aortic valve calcification. Peak aortic valve gradient 17 mmHg. Mean aortic valve gradient 10 mmHg. Mild (1+) aortic valve insufficiency. Pulmonic Valve The pulmonic valve is not well visualized. Great Vessels Normal aortic root. The pulmonary artery is normal size. Normal inferior vena cava. Pericardium/Pleural No pericardial effusion. MMode/2D Measurements & Calculations LVIDd: 4.1 cm IVSd: 1.4 cm LVOT diam: 2.1 cm LVIDs: 2.8 cm LVPWd: 1.4 cm LVOT area: 3.5 cm2 RVDd: 3.2 cm FS: 31.1 % Ao root diam: 3.3 cm LAV(MOD-bp): 32.3 ml LA A4 area: 14.5 cm2 LAV(MOD-bp) Indexed: 14.9 ml/m2 LAV(MOD-sp2): 27.9 ml LAV(MOD-sp4): 37.3 ml LA dimension(2D): 4.1 cm RA A4 area: 11.2 cm2 Time Measurements MV dec time: 0.26 sec Doppler Measurements & Calculations MV E max zak: 70.5 cm/sec Lat Peak E' Zak: 7.9 cm/sec Med Peak E' Zak: 5.9 cm/sec MV A max zak: 91.2 cm/sec E/E' lat: 8.9 E/E' med: 12.0 MV E/A: 0.77 MV dec slope: 267.2 cm/sec2 Ao V2 max: 211.6 cm/sec AI max zak: 291.7 cm/sec Ao max P.9 mmHg AI max P.1 mmHg Ao V2 mean: 152.8 cm/sec AI dec slope: 153.2 cm/sec2 Ao mean P.1 mmHg AI P1/2t: 557.8 msec Ao V2 VTI: 44.8 cm AV (velocity ratio): 0.56 ADITI(I,D): 2.0 cm2 ADITI(V,D): 1.8 cm2 LV V1 max: 108.9 cm/sec SV(LVOT): 87.7 ml PA V2 max: 75.5 cm/sec LV V1 max P.8 mmHg LV V1 mean P.0 mmHg LV V1 mean: 83.2 cm/sec LV V1 VTI: 24.9 cm ECHO/Echo Complete Interpretation Summary Normal LV size. Left ventricular systolic function is normal. The estimated ejection fraction is 60 %. Mild focal aortic valve calcification. Compared to previous study, the left ventricular systolic function is the same. . Ordering Physician: George Braswell Referring Physician: Marques Casanova Performed By: Marleen Atkinson, SAMANTHA, RVT
== END | disposition home or self-care (01) ==
LOC: CVS 14:49
PROVIDERS: PCP Family Medicine; Referring Provider Internal Medicine Cardiovascular Disease; Visit Provider Internal Medicine Cardiovascular Disease
DX: R01.1 Cardiac murmur, unspecified (principal)
CPT/HCPCS: 93306

== ENCOUNTER 2023-07-03 07:08 | Outpatient (RCR) | payer MEDICARE, SELFPAY ==
[2023-04-25 09:43] VITALS: BMI 28.1
[2023-07-03 07:40] LABS: Absolute Lymphocyte Count 1.29 X10^3/uL (0.83-4.51); Absolute Neutrophil Count 9.6 X10^3/uL (2.0-7.7); Basophil# 0.11 X10^3/uL; Basophil% 0.9 % (0-1); Eosinophil# 0.22 X10^3/uL; Eosinophils% 1.7 % (0-5); Hematocrit 48.4 % (40-54); Lymphocyte # 1.29 X10^3/ul (0.83-4.51); Lymphocyte % 10.2 % (19-41); Mean Corpuscular Hgb 26.7 pg (27.0-32.0); Mean Corpuscular Volume 86.1 fL (80-94); Mean Platelet Vol. 10.2 fl (6.2-12.0); Monocyte# 1.38 X10^3/uL; Monocyte% 10.9 % (0-10); NRBC Flagged by Analyzer 0 % (0-5); Neutrophil # 9.58 X10^3/uL (2.7-7.7); Neutrophil % 75.5 % (47-70); Platelet Count 221 K/mm3 (150-450); RBC Distribution Width CV 14.3 % (11.6-14.6); RBC Distribution Width SD 44.9 fl (35.1-43.9); Red Blood Count 5.62 M/mm3 (4.6-6.2); White Blood Count 12.7 K/mm3 (4.4-11.0)
[2023-07-03 08:00] LABS: Protein, Urine (Random) 9.1 mg/dL (<11.9); Protein:Creat Ratio 101 mg/g CRE (0-200)
[2023-07-03 08:42] LABS: Cholesterol 115 mg/dL (200); High Density Lipoprotein 32 mg/dL; Phosphorus 4.2 mg/dL (2.5-4.9); Triglycerides 290 mg/dL; Very Low Density Lipoprotein 58 mg/dL (5-40)
[2023-07-03 12:16] LABS: ALB/GLOB Ratio 1.4 RATIO (0.9-2.4); AST(SGOT) 12 U/L (15-37); Alanine Aminotransfer ALT/SGPT 23 U/L (16-61); Albumin, Serum 3.9 g/dL (3.2-5.0); Alkaline Phosphatase 83 U/L (45-117); Anion Gap 13 (5-15); BUN 36 mg/dL (7-18); BUN/Creat Ratio 13.6 RATIO (10-20); Calcium,Total 9.5 mg/dL (8.5-10.1); Chloride 103 mmol/L (98-107); Cholesterol 113 mg/dL (200); Creatinine, Serum 2.65 mg/dL (0.70-1.30); EST Glomerular Filtration Rate 26 mL/min (>60); Est Glom Filt Rate - Afr Amer 32 mL/min (>60); Globulin 2.8 g/dL (2.2-4.2); Glucose 136 mg/dL (74-106); High Density Lipoprotein 28 mg/dL; Potassium 3.2 mmol/L (3.5-5.1); Protein, Total 6.7 g/dL (6.4-8.2); Sodium Level 141 mmol/L (136-145); T4 Free Direct 1.17 ng/dL (0.76-1.46); Thyroid Stim Hormone (TSH) 1.73 uIU/mL (0.358-3.74); Triglycerides 288 mg/dL; Very Low Density Lipoprotein 58 mg/dL (5-40)
[2023-07-06 09:08] LABS: Tacrolimus (FK506) 6.8 ng/mL (2.0-20.0)
== END 2023-07-03 18:00 | disposition home or self-care (01) ==
LOC: LAB 07:08
PROVIDERS: PCP Family Medicine
DX: D72.9 Disorder of white blood cells, unspecified; Z94.0 Kidney transplant status; Z09 Encounter for follow-up examination after completed treatment for conditions other than malignant neoplasm; R79.9 Abnormal finding of blood chemistry, unspecified
CPT/HCPCS: 80053; 80061; 80197; 82570; 83036; 83735; 83970; 84100; 84156; 84439; 84443; 85025

== ENCOUNTER 2023-08-12 07:36 | Outpatient (RCR) | payer MEDICARE, SELFPAY ==
[2023-07-25 22:58] VITALS: BMI 28.1
[2023-08-12 08:18] LABS: Absolute Lymphocyte Count 1.23 X10^3/uL (0.83-4.51); Absolute Neutrophil Count 8.7 X10^3/uL (2.0-7.7); Basophil# 0.08 X10^3/uL; Basophil% 0.7 % (0-1); Eosinophil# 0.18 X10^3/uL; Eosinophils% 1.6 % (0-5); Hematocrit 48.4 % (40-54); Hemoglobin 15.3 g/dL (13.0-16.5); Lymphocyte # 1.23 X10^3/ul (0.83-4.51); Mean Corp Hgb Conc 31.6 g/dL (32-36); Mean Corpuscular Hgb 27.2 pg (27.0-32.0); Mean Platelet Vol. 10.1 fl (6.2-12.0); Monocyte# 0.92 X10^3/uL; Monocyte% 8.2 % (0-10); NRBC Flagged by Analyzer 0 % (0-5); Neutrophil # 8.65 X10^3/uL (2.7-7.7); Neutrophil % 77.3 % (47-70); Platelet Count 217 K/mm3 (150-450); RBC Distribution Width CV 14.1 % (11.6-14.6); RBC Distribution Width SD 44.1 fl (35.1-43.9); Red Blood Count 5.63 M/mm3 (4.6-6.2); White Blood Count 11.2 K/mm3 (4.4-11.0)
[2023-08-12 08:31] LABS: Anion Gap 6 (5-15); BUN 38 mg/dL (7-18); BUN/Creat Ratio 15.3 RATIO (10-20); Calcium,Total 8.8 mg/dL (8.5-10.1); Chloride 108 mmol/L (98-107); Creatinine, Serum 2.48 mg/dL (0.70-1.30); EST Glomerular Filtration Rate 28 mL/min (>60); Est Glom Filt Rate - Afr Amer 34 mL/min (>60); Glucose 136 mg/dL (74-106); Magnesium 1.9 mg/dL (1.6-2.6); Phosphorus 2.9 mg/dL (2.5-4.9); Potassium 3.3 mmol/L (3.5-5.1); Sodium Level 140 mmol/L (136-145)
[2023-08-15 00:07] LABS: Tacrolimus (FK506) 7.1 ng/mL (2.0-20.0)
== END 2023-08-12 18:00 | disposition home or self-care (01) ==
LOC: LAB 07:36
PROVIDERS: PCP Family Medicine
DX: L97.522 Non-pressure chronic ulcer of other part of left foot with fat layer exposed; Z94.0 Kidney transplant status; D72.9 Disorder of white blood cells, unspecified; R79.9 Abnormal finding of blood chemistry, unspecified; Z09 Encounter for follow-up examination after completed treatment for conditions other than malignant neoplasm
CPT/HCPCS: 36415; 80048; 80197; 83735; 84100; 85025; 87070; 87075; 87205

== ENCOUNTER → 2023-10-07 | Outpatient (CLI) | payer MEDICARE, SELFPAY ==
--- NOTE | 2023-10-07 12:31 | US_ITS ---
STUDY: RENAL ULTRASOUND - COMPLETE REASON FOR EXAM: Male, 63 years old. KIDNEY TRANSPLANT TECHNIQUE: Ultrasound evaluation of the kidneys was performed with real-time and static mills-scale imaging. COMPARISON: 10/13/2018. FINDINGS: RIGHT KIDNEY: Normal location of the right kidney, which is decreased in size. The right kidney measures 9.7 x 4.3 x 3.9 cm. There is diffuse thinning of the renal cortex. The renal cortex measures 0.8 cm. There is no right renal mass or cyst. There are no right renal calculi. There is no right hydronephrosis. Nonspecific increased echogenicity seen diffusely. DISTAL RIGHT URETER: There is non-visualization of the distal right ureter. There is no demonstrated right ureterovesical junction calculus. There is no demonstrated right ureteral jet. LEFT KIDNEY: Normal location of the left kidney, which is decreased in size. The left kidney measures 9.6 x 3.7 x 4.3 cm. There is diffuse thinning of the renal cortex. The renal cortex measures 0.8 cm. There is no left renal mass or cyst. There are no left renal calculi. There is no left hydronephrosis. There is nonspecific increased echogenicity DISTAL LEFT URETER: There is non-visualization of the distal left ureter. There is no demonstrated left ureterovesical junction calculus. There is no demonstrated left ureteral jet. There is a right-sided transplanted kidney measuring 12.6 x 7.3 cm. Normal renal cortex measuring 1.9 cm. Normal flow. No hydronephrosis. BLADDER: The urinary bladder has a volume of 7.1 ml. The There is a normal wall thickness of the distended urinary bladder. There is no demonstrated mass within the urinary bladder. There are no demonstrated bladder calculi. US/Kidney and Bladder IMPRESSION: Severe atrophy involving the bilateral manzan[place] kidneys. Right-sided transplanted kidney, within normal limits. No evidence of hydronephrosis, mass or stone. Electronically Signed: Denise Vazquez MD at 20:51 EST ,
== END | disposition home or self-care (01) ==
PROVIDERS: PCP Family Medicine
DX: Z94.0 Kidney transplant status (principal); D84.9 Immunodeficiency, unspecified; R79.9 Abnormal finding of blood chemistry, unspecified; Z79.899 Other long term (current) drug therapy
CPT/HCPCS: 76770

== ENCOUNTER 2023-10-24 12:55 | Outpatient (CLI) | payer MEDICARE, SELFPAY ==
[2023-10-24 13:25] VITALS: BP 159/77; PULSE 77; RESP 16; TEMP 36.5; O2SAT 97; BMI 30.4
[2023-10-24] MEDS: DENOSUMAB 60 MG/ML SC (13:30)
== END 2023-10-24 12:56 | disposition home or self-care (01) ==
LOC: MEDOUTP 12:55
PROVIDERS: PCP Family Medicine; Referring Provider Nurse Practitioner Family; Visit Provider Nurse Practitioner Family
DX: M81.0 Age-related osteoporosis without current pathological fracture (principal)
CPT/HCPCS: 96372; J0897

== ENCOUNTER → 2023-11-05 | Outpatient (CLI) | payer MEDICARE, SELFPAY ==
[2023-11-05 12:13] LABS: Anion Gap 5 (5-15); BUN 34 mg/dL (7-18); BUN/Creat Ratio 13.8 RATIO (10-20); Calcium,Total 9.2 mg/dL (8.5-10.1); Chloride 107 mmol/L (98-107); Creatinine, Serum 2.47 mg/dL (0.70-1.30); EST Glomerular Filtration Rate 28 mL/min (>60); Est Glom Filt Rate - Afr Amer 34 mL/min (>60); Glucose 127 mg/dL (74-106); Potassium 4.3 mmol/L (3.5-5.1); Sodium Level 137 mmol/L (136-145)
== END | disposition home or self-care (01) ==
LOC: LAB 10:55
PROVIDERS: PCP Family Medicine
DX: Z09 Encounter for follow-up examination after completed treatment for conditions other than malignant neoplasm (principal); D72.9 Disorder of white blood cells, unspecified; R79.9 Abnormal finding of blood chemistry, unspecified; Z94.0 Kidney transplant status
CPT/HCPCS: 36415; 80048; 80197

== ENCOUNTER 2023-12-31 09:13 | Outpatient (RCR) | payer MEDICARE, SELFPAY ==
[2023-08-25 02:48] VITALS: BMI 28.1
[2023-12-31 10:08] LABS: Absolute Lymphocyte Count 0.93 X10^3/uL (0.83-4.51); Absolute Neutrophil Count 10.7 X10^3/uL (2.0-7.7); Basophil# 0.05 X10^3/uL; Basophil% 0.4 % (0-1); Eosinophil# 0.13 X10^3/uL; Hematocrit 49.8 % (40-54); Hemoglobin 15.4 g/dL (13.0-16.5); Lymphocyte # 0.93 X10^3/ul (0.83-4.51); Lymphocyte % 7.2 % (19-41); Mean Corp Hgb Conc 30.9 g/dL (32-36); Mean Corpuscular Hgb 26.8 pg (27.0-32.0); Mean Corpuscular Volume 86.8 fL (80-94); Mean Platelet Vol. 10.3 fl (6.2-12.0); Monocyte# 0.99 X10^3/uL; Monocyte% 7.7 % (0-10); NRBC Flagged by Analyzer 0 % (0-5); Neutrophil # 10.67 X10^3/uL (2.7-7.7); Neutrophil % 82.9 % (47-70); Platelet Count 197 K/mm3 (150-450); RBC Distribution Width CV 13.5 % (11.6-14.6); RBC Distribution Width SD 42.5 fl (35.1-43.9); Red Blood Count 5.74 M/mm3 (4.6-6.2); White Blood Count 12.9 K/mm3 (4.4-11.0)
[2023-12-31 10:58] LABS: Anion Gap 5 (5-15); BUN 28 mg/dL (7-18); BUN/Creat Ratio 12.7 RATIO (10-20); Calcium,Total 9.5 mg/dL (8.5-10.1); Chloride 107 mmol/L (98-107); EST Glomerular Filtration Rate 32 mL/min (>60); Est Glom Filt Rate - Afr Amer 39 mL/min (>60); Glucose 132 mg/dL (74-106); Sodium Level 134 mmol/L (136-145)
[2024-01-03 13:07] LABS: Tacrolimus (FK506) 6.5 ng/mL (2.0-20.0)
== END 2024-01-23 18:00 | disposition home or self-care (01) ==
LOC: LAB 09:13
PROVIDERS: PCP Family Medicine
DX: Z09 Encounter for follow-up examination after completed treatment for conditions other than malignant neoplasm (principal); Z94.0 Kidney transplant status; R79.9 Abnormal finding of blood chemistry, unspecified; B17.10 Acute hepatitis C without hepatic coma; Z48.298 Encounter for aftercare following other organ transplant; D84.9 Immunodeficiency, unspecified; Z79.899 Other long term (current) drug therapy; I10 Essential (primary) hypertension; E78.2 Mixed hyperlipidemia
CPT/HCPCS: 36415; 80048; 80197; 85025

== ENCOUNTER → 2024-03-24 | Outpatient (CLI) | payer MEDICARE, SELFPAY ==
--- NOTE | 2024-03-24 10:27 | RAD_ITS ---
INDICATION: Pain. EXAMINATION/TECHNIQUE: X-RAY - XR Hips Bilateral with Pelvis when performed; Min 5 Views COMPARISON: No relevant prior comparison study available FINDINGS: PELVIC BONES: No displaced fracture, destructive or sclerotic lesions. Note that overlapping bowel shadows may however obscure fine detail. Sacroiliac joints are unremarkable. No widening of the pubic symphysis. HIPS: There is minimal degenerative arthrosis of the hip joints bilaterally. No displaced fracture seen. SOFT TISSUES: There are atherosclerotic calcifications. There are surgical clips in the right pelvis. No soft tissue swelling or gas. RAD/Hips B/L min 2 views w/ Pelvis IMPRESSION: Minimal degenerative arthrosis of the hip joints bilaterally. No evidence of displaced pelvic or hip fracture. Electronically Signed: Zhao Blakely MD at 9:43 EDT ,
[2024-03-24 12:41] LABS: Absolute Lymphocyte Count 0.91 X10^3/uL (0.83-4.51); Absolute Neutrophil Count 13.5 X10^3/uL (2.0-7.7); Basophil# 0.07 X10^3/uL; Basophil% 0.4 % (0-1); Eosinophil# 0.13 X10^3/uL; Eosinophils% 0.8 % (0-5); Hemoglobin 15.2 g/dL (13.0-16.5); Lymphocyte # 0.91 X10^3/ul (0.83-4.51); Lymphocyte % 5.7 % (19-41); Mean Corpuscular Hgb 27.2 pg (27.0-32.0); Mean Corpuscular Volume 87.7 fL (80-94); Mean Platelet Vol. 10.7 fl (6.2-12.0); Monocyte# 1.22 X10^3/uL; Monocyte% 7.6 % (0-10); NRBC Flagged by Analyzer 0 % (0-5); Neutrophil # 13.48 X10^3/uL (2.7-7.7); Neutrophil % 84.6 % (47-70); Platelet Count 224 K/mm3 (150-450); RBC Distribution Width CV 13.9 % (11.6-14.6); RBC Distribution Width SD 44.6 fl (35.1-43.9); Red Blood Count 5.59 M/mm3 (4.6-6.2)
[2024-03-24 13:42] LABS: ALB/GLOB Ratio 1.3 RATIO (0.9-2.4); AST(SGOT) 14 U/L (15-37); Alanine Aminotransfer ALT/SGPT 23 U/L (16-61); Albumin, Serum 3.8 g/dL (3.2-5.0); Alkaline Phosphatase 72 U/L (45-117); Anion Gap 6 (5-15); BUN 29 mg/dL (7-18); BUN/Creat Ratio 13.1 RATIO (10-20); Chloride 109 mmol/L (98-107); Cholesterol 104 mg/dL (200); Creatinine, Serum 2.21 mg/dL (0.70-1.30); EST Glomerular Filtration Rate 32 mL/min (>60); Est Glom Filt Rate - Afr Amer 39 mL/min (>60); Glucose 163 mg/dL (74-106); High Density Lipoprotein 34 mg/dL; Potassium 4.3 mmol/L (3.5-5.1); Protein, Total 6.8 g/dL (6.4-8.2); Sodium Level 138 mmol/L (136-145); T4 Free Direct 1.42 ng/dL (0.76-1.46); Triglycerides 113 mg/dL; Very Low Density Lipoprotein 23 mg/dL (5-40)
== END | disposition home or self-care (01) ==
LOC: MTLAB 10:27
PROVIDERS: PCP Family Medicine; Referring Provider Family Medicine; Visit Provider Family Medicine
DX: E11.69 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 other specified complication (principal); E03.9 Hypothyroidism, unspecified; M25.551 Pain in right hip; M25.552 Pain in left hip
CPT/HCPCS: 36415; 73521; 80053; 80061; 84439; 84443; 85025

== ENCOUNTER 2024-08-10 09:34 | Outpatient (RCR) | payer MEDICARE, SELFPAY ==
[2024-01-23 23:50] VITALS: BMI 28.1
[2024-08-10 09:53] LABS: Bacteria 0 SEEN /hpf (None Seen); Mucous, Urine 0 SEEN /hpf (<or=2+); Red Blood Cells-Urine 0 SEEN /hpf (0-5); White Blood Cells 0 SEEN /hpf (0-5)
[2024-08-10 10:16] LABS: Absolute Lymphocyte Count 0.98 X10^3/uL (0.83-4.51); Basophil% 0.7 % (0-1); Eosinophil# 0.22 X10^3/uL; Eosinophils% 1.5 % (0-5); Hematocrit 50.8 % (40-54); Hemoglobin 15.7 g/dL (13.0-16.5); Lymphocyte # 0.98 X10^3/ul (0.83-4.51); Lymphocyte % 6.7 % (19-41); Mean Corp Hgb Conc 30.9 g/dL (32-36); Mean Corpuscular Hgb 26.5 pg (27.0-32.0); Mean Corpuscular Volume 85.7 fL (80-94); Mean Platelet Vol. 10.3 fl (6.2-12.0); Monocyte# 1.27 X10^3/uL; Monocyte% 8.7 % (0-10); NRBC Flagged by Analyzer 0 % (0-5); Neutrophil # 11.97 X10^3/uL (2.7-7.7); Neutrophil % 81.5 % (47-70); Platelet Count 208 K/mm3 (150-450); RBC Distribution Width CV 14.3 % (11.6-14.6); RBC Distribution Width SD 44.5 fl (35.1-43.9); Red Blood Count 5.93 M/mm3 (4.6-6.2); White Blood Count 14.7 K/mm3 (4.4-11.0)
[2024-08-10 10:18] LABS: Color, Urine Yellow (Yellow); Glucose, Dipstick 250 mg/dl (Normal); Ketone-Dipstick Negative (Negative); Leukocyte Esterase-Dipstick Negative /ul (Negative); Nitrite-Dipstick Negative (Negative); Occult Blood-Urine Negative /ul (Negative); Protein-Dipstick 15 mg/dl (Negative); Urine Bilirubin Dipstick Negative (Negative); Urine Clarity Clear (Clear); Urine Urobilinogen Normal (Normal)
[2024-08-10 10:33] LABS: Squamous Epithelial Cells - UA 0-5 SEEN /hpf (0-5)
[2024-08-10 10:45] LABS: Hemoglobin A1c 6.5 % (3.8-5.6)
[2024-08-10 10:47] LABS: ALB/GLOB Ratio 1.2 RATIO (0.9-2.4); AST(SGOT) 7 U/L (15-37); Alanine Aminotransfer ALT/SGPT 21 U/L (16-61); Albumin, Serum 3.6 g/dL (3.2-5.0); Alkaline Phosphatase 66 U/L (45-117); Anion Gap 9 (5-15); BUN 29 mg/dL (7-18); BUN/Creat Ratio 14.4 RATIO (10-20); Calcium,Total 9.8 mg/dL (8.5-10.1); Chloride 105 mmol/L (98-107); Cholesterol 128 mg/dL (200); Creatinine, Serum 2.02 mg/dL (0.70-1.30); EST Glomerular Filtration Rate 36 mL/min (>60); Est Glom Filt Rate - Afr Amer 43 mL/min (>60); Globulin 2.9 g/dL (2.2-4.2); Glucose 125 mg/dL (74-106); High Density Lipoprotein 37 mg/dL; Protein, Total 6.5 g/dL (6.4-8.2); Sodium Level 137 mmol/L (136-145); T4 Free Direct 1.27 ng/dL (0.76-1.46); Triglycerides 191 mg/dL; Very Low Density Lipoprotein 38 mg/dL (5-40)
[2024-08-10 11:01] LABS: Magnesium 1.8 mg/dL (1.6-2.6); Phosphorus 3.2 mg/dL (2.5-4.9)
[2024-08-12 19:07] LABS: Tacrolimus (FK506) 5.6 ng/mL (2.0-20.0)
== END 2024-08-10 18:00 | disposition home or self-care (01) ==
LOC: LAB 09:34
PROVIDERS: PCP Family Medicine
DX: Z94.0 Kidney transplant status (principal); R79.9 Abnormal finding of blood chemistry, unspecified; Z09 Encounter for follow-up examination after completed treatment for conditions other than malignant neoplasm; B17.10 Acute hepatitis C without hepatic coma; Z48.298 Encounter for aftercare following other organ transplant; D84.9 Immunodeficiency, unspecified; Z79.899 Other long term (current) drug therapy; I10 Essential (primary) hypertension; E78.2 Mixed hyperlipidemia; E03.9 Hypothyroidism, unspecified; E11.59 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 other circulatory complications
CPT/HCPCS: 36415; 80053; 80061; 80197; 81001; 83036; 83735; 84100; 84439; 84443; 85025

== ENCOUNTER → 2024-11-10 | Outpatient (CLI) | payer MEDICARE, SELFPAY ==
--- NOTE | 2024-11-10 09:46 | RAD_ITS ---
STUDY: X-RAY CHEST REASON FOR EXAM: Male, 64 years old. acute bronchitis TECHNIQUE: PA and lateral views of the chest. COMPARISON: 01/22/2023 FINDINGS: The lungs are clear and expanded. There is no demonstrated pleural abnormality. Normal size heart. Normal mediastinum and kieran. Normal visualized pulmonary arteries. Normal visualized aortic arch and descending thoracic aorta. Normal visualized thoracic spine. Healed fracture left clavicle. There is no demonstrated abnormality of the visualized soft tissue structures of the upper abdomen. RAD/Chest PA and Lateral IMPRESSION: No active disease. Electronically Signed: Barry Casillas MD at 11:25 [facility] ,
[2024-11-10 12:31] LABS: Absolute Lymphocyte Count 0.76 X10^3/uL (0.83-4.51); Absolute Neutrophil Count 8.9 X10^3/uL (2.0-7.7); Basophil# 0.08 X10^3/uL; Basophil% 0.7 % (0-1); Eosinophil# 0.44 X10^3/uL; Eosinophils% 3.8 % (0-5); Hematocrit 49.1 % (40-54); Hemoglobin 15.2 g/dL (13.0-16.5); Lymphocyte # 0.76 X10^3/ul (0.83-4.51); Lymphocyte % 6.6 % (19-41); Mean Corpuscular Hgb 26.6 pg (27.0-32.0); Mean Platelet Vol. 10.5 fl (6.2-12.0); Monocyte# 1.32 X10^3/uL; Monocyte% 11.4 % (0-10); NRBC Flagged by Analyzer 0 % (0-5); Neutrophil # 8.87 X10^3/uL (2.7-7.7); Neutrophil % 76.9 % (47-70); Platelet Count 192 K/mm3 (150-450); RBC Distribution Width CV 14.3 % (11.6-14.6); RBC Distribution Width SD 44.6 fl (35.1-43.9); Red Blood Count 5.71 M/mm3 (4.6-6.2); White Blood Count 11.5 K/mm3 (4.4-11.0)
[2024-11-10 13:30] LABS: ALB/GLOB Ratio 1.1 RATIO (0.9-2.4); AST(SGOT) 15 U/L (15-37); Alanine Aminotransfer ALT/SGPT 28 U/L (16-61); Albumin, Serum 3.4 g/dL (3.2-5.0); Alkaline Phosphatase 57 U/L (45-117); Anion Gap 8 (5-15); BUN 18 mg/dL (7-18); BUN/Creat Ratio 8.8 RATIO (10-20); Calcium,Total 9.5 mg/dL (8.5-10.1); Chloride 110 mmol/L (98-107); Cholesterol 146 mg/dL (200); Creatinine, Serum 2.05 mg/dL (0.70-1.30); EST Glomerular Filtration Rate 35 mL/min (>60); Est Glom Filt Rate - Afr Amer 43 mL/min (>60); Glucose 101 mg/dL (74-106); High Density Lipoprotein 45 mg/dL; Potassium 3.7 mmol/L (3.5-5.1); Protein, Total 6.4 g/dL (6.4-8.2); Sodium Level 141 mmol/L (136-145); T4 Free Direct 1.24 ng/dL (0.76-1.46); Triglycerides 117 mg/dL; Very Low Density Lipoprotein 23 mg/dL (5-40)
== END | disposition home or self-care (01) ==
PROVIDERS: PCP Family Medicine; Referring Provider Family Medicine; Visit Provider Family Medicine
DX: E03.9 Hypothyroidism, unspecified (principal); E11.69 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 other specified complication; J20.9 Acute bronchitis, unspecified
CPT/HCPCS: 36415; 71046; 80053; 80061; 84439; 84443; 85025

== ENCOUNTER → 2024-12-21 | Outpatient (CLI) | payer MEDICARE, SELFPAY ==
[2024-12-21 12:30] VITALS: PULSE 63; PULSE 68; PULSE 73; PULSE 76; PULSE 77; PULSE 78; O2SAT 91; O2SAT 92; O2SAT 93; O2SAT 95
--- NOTE | 2024-12-30 13:27 | PCM.PSN.6M ---
PSN 6 Minute Walk Test 6 Minute Walk Test 6 Minute Walk Test: 6 Minute Walk Test PSN:6-Minute Walk Test Start: 12/21/24 12:41 Freq: Status: Active Protocol: [id number].[id number] Document 12/21/24 12:30 AEH (Rec: 12/21/24 12:45 AEH [id number]) 6 Minute Walk Test Date Performed 12/21/24 Time Performed 12:30 Height 5 ft 10 in Weight: 220 lb Weight in Pounds 220.[address]: Za Assistive device None used: Pre-test Oxygen Delivery Room Air Method Pulse Ox (%) 95 Pulse Rate (60-100 63 beats/min) Dyspnea Alexandr Scale ( 2 0-10) Exertion Alexandr Scale 6 (6-20) 1st minute Oxygen Delivery Room Air Method Pulse Ox (%) 93 Pulse Rate (60-100 73 beats/min) 2nd minute Oxygen Delivery Room Air Method Pulse Ox (%) 92 Pulse Rate (60-100 76 beats/min) 3rd minute Oxygen Delivery Room Air Method Pulse Ox (%) 93 Pulse Rate (60-100 77 beats/min) 4th minute Oxygen Delivery Room Air Method Pulse Ox (%) 93 Pulse Rate (60-100 78 beats/min) 5th minute Oxygen Delivery Room Air Method Pulse Ox (%) 91 Pulse Rate (60-100 78 beats/min) 6th minute Oxygen Delivery Room Air Method Pulse Ox (%) 92 Pulse Rate (60-100 77 beats/min) Dyspnea Alexandr Scale ( 3 0-10) Exertion Alexandr Scale 12 (6-20) Post-test Oxygen Delivery Room Air Method Pulse Ox (%) 95 Pulse Rate (60-100 68 beats/min) Full Laps Walked 16 Partial Lap, Number 7 of Tiles Walked Total Distance 951 Walked (ft) Interpretation Interpretation: The patient ambulated 951 feet over the course of 6 minutes beginning on room air without assistive devices. Pretesting oxygen saturation was noted to be 95% on room air. With ambulation, the amira oxygen saturation was 91%. This represents a significant exertional oxygen desaturation, consistent with a pulmonary limitation to exercise tolerance. Recommendations Recommendations: There is no indication for the use of supplemental oxygen at this time. However, close interval follow-up is recommended, given the degree of oxygen desaturation noted during the study.
== END | disposition home or self-care (01) ==
LOC: PSN 12:16
PROVIDERS: PCP Family Medicine; Referring Provider Nurse Practitioner Family; Visit Provider Nurse Practitioner Family
DX: J45.901 Unspecified asthma with (acute) exacerbation (principal)
CPT/HCPCS: 94618

== ENCOUNTER → 2024-12-25 | Outpatient (CLI) | payer MEDICARE, SELFPAY | END | disposition home or self-care (01) | LOC: SL 20:02 | PROVIDERS: PCP Family Medicine; Referring Provider Nurse Practitioner Family; Visit Provider Nurse Practitioner Family | DX: G47.33 Obstructive sleep apnea (adult) (pediatric) (principal) | CPT/HCPCS: 95811 ==

== ENCOUNTER → 2025-01-01 | Outpatient (CLI) | payer MEDICARE, SELFPAY | END | disposition home or self-care (01) | LOC: PSN 09:21 | PROVIDERS: PCP Family Medicine; Referring Provider Nurse Practitioner Family; Visit Provider Nurse Practitioner Family | DX: J45.901 Unspecified asthma with (acute) exacerbation (principal) | CPT/HCPCS: 94060; 94726; 94729 ==

== ENCOUNTER → 2025-01-11 | Outpatient (CLI) | payer MEDICARE, SELFPAY | END | disposition home or self-care (01) | LOC: SL 11:43 | PROVIDERS: PCP Family Medicine; Visit Provider Nurse Practitioner Family | DX: Z00.00 Encounter for general adult medical examination without abnormal findings (principal) ==

== ENCOUNTER → 2025-02-10 | Outpatient (CLI) | payer MEDICARE, SELFPAY ==
--- NOTE | 2025-02-10 16:49 | CT_ITS ---
PROCEDURE: CHEST WITHOUT CONTRAST ([facility]), 02/10/2025 REASON FOR EXAM: SHORTNESS OF BREATH TECHNIQUE: CT chest was performed in prone positioning without IV contrast. Multiplanar reformats were generated. RADIATION DOSE SUMMARY: CTDlvol: 18.71 mGy DLP: 778.48 mGycm One or more dose reduction techniques were used (e.g., Automated exposure control, adjustment of the mA and/or kV according to patient size, use of iterative reconstruction technique). COMPARISON: No prior CT chest FINDINGS: Note that evaluation of the vasculature, kieran, and soft tissues is limited in the absence of IV contrast. Mild motion limitation. Heart/pericardium: Severe three-vessel coronary atherosclerosis and/or stents. Aortic and mild mitral annular calcification. Aorta: Mild/moderate calcific atherosclerosis. Pulmonary arteries: Mildly enlarged central pulmonary arteries which may indicate pulmonary arterial hypertension. Lymph nodes: No overt thoracic lymphadenopathy evident in the absence of IV contrast. Mild mediastinal lipomatosis. Lungs/pleura: Mild lingular and RIGHT middle lobe likely atelectasis/scarring. Suspected punctate calcified granuloma in the LEFT lower lobe. No significant architectural distortion, appreciable honeycombing, ground-glass abnormality, or reticulation. Airways: Unremarkable. No bronchiectasis Chest wall: Unremarkable. Upper abdomen: Cholelithiasis. Atrophic end-stage appearance of the kidneys. Musculoskeletal: Mild spondylosis. Numerous old LEFT rib fractures. CT/Chest without Contrast IMPRESSION: 1. No acute noncontrast findings. 2. Additional description as above. Reading Location: [id number]
== END | disposition home or self-care (01) ==
LOC: CT 16:49
PROVIDERS: PCP Family Medicine; Referring Provider Nurse Practitioner Family; Visit Provider Nurse Practitioner Family
DX: R06.02 Shortness of breath (principal)
CPT/HCPCS: 71250

== ENCOUNTER 2025-03-23 10:12 | Outpatient (RCR) | payer MEDICARE, SELFPAY ==
[2024-08-25 04:12] VITALS: BMI 28.1
[2025-03-23 11:08] LABS: Absolute Lymphocyte Count 1.01 X10^3/uL (0.83-4.51); Absolute Neutrophil Count 13.2 X10^3/uL (2.0-7.7); Basophil# 0.06 X10^3/uL; Basophil% 0.4 % (0-1); Eosinophil# 0.04 X10^3/uL; Eosinophils% 0.3 % (0-5); Hematocrit 45.9 % (40-54); Hemoglobin 14.5 g/dL (13.0-16.5); Lymphocyte # 1.01 X10^3/ul (0.83-4.51); Lymphocyte % 6.7 % (19-41); Mean Corp Hgb Conc 31.6 g/dL (32-36); Mean Corpuscular Hgb 26.8 pg (27.0-32.0); Mean Corpuscular Volume 84.7 fL (80-94); Mean Platelet Vol. 10.3 fl (6.2-12.0); Monocyte# 0.75 X10^3/uL; NRBC Flagged by Analyzer 0 % (0-5); Neutrophil # 13.15 X10^3/uL (2.7-7.7); Platelet Count 217 K/mm3 (150-450); RBC Distribution Width CV 14.3 % (11.6-14.6); Red Blood Count 5.42 M/mm3 (4.6-6.2); White Blood Count 15.1 K/mm3 (4.4-11.0)
[2025-03-23 11:59] LABS: Protein, Urine (Random) 13.5 mg/dL (0.0-12.0); Protein:Creat Ratio 123 mg/g CRE (0-200)
[2025-03-23 12:02] LABS: ALB/GLOB Ratio 1.8 RATIO (0.9-2.4); AST(SGOT) 16 U/L (<=37); Alanine Aminotransfer ALT/SGPT 14 U/L (<=46); Alkaline Phosphatase 68 U/L (40-129); Anion Gap 13 (5-15); BUN 31 mg/dL (4-19); BUN/Creat Ratio 14.6 RATIO (10-20); Calcium,Total 9.8 mg/dL (7.6-11.0); Carbon Dioxide 21.8 mmol/L (21.0-32.0); Chloride 103 mmol/L (98-108); Cholesterol 114 mg/dL (<=200); Creatinine, Serum 2.14 mg/dL (0.70-1.20); EST Glomerular Filtration Rate 34 (>60); Globulin 2.3 g/dL (2.2-4.2); Glucose 180 mg/dL (70-99); High Density Lipoprotein 34 mg/dL; Low Density Lipoprotein Calc. 56 mg/dL; Magnesium 1.5 mg/dL (1.5-2.2); Phosphorus 2.8 mg/dL (2.7-4.5); Potassium 4.1 mmol/L (3.3-5.1); Protein, Total 6.3 g/dL (5.9-8.4); Sodium Level 138 mmol/L (133-145); Total Bilirubin 0.56 mg/dL (0.00-1.30); Triglycerides 119 mg/dL; Very Low Density Lipoprotein 24 mg/dL (5-40); cholesterol:hdl ratio screen 3.37
[2025-03-26 18:08] LABS: Tacrolimus (FK506) 9.1 ng/mL (5.0-20.0)
== END 2025-03-24 18:00 | disposition home or self-care (01) ==
LOC: LAB 10:12
PROVIDERS: PCP Family Medicine
DX: Z94.0 Kidney transplant status (principal); R79.9 Abnormal finding of blood chemistry, unspecified; Z48.298 Encounter for aftercare following other organ transplant; D84.9 Immunodeficiency, unspecified; Z79.899 Other long term (current) drug therapy
CPT/HCPCS: 36415; 80053; 80061; 80197; 82570; 83735; 84100; 84156; 85025

== ENCOUNTER → 2025-05-04 | Outpatient (CLI) | payer MEDICARE, SELFPAY ==
[2025-05-04 11:49] LABS: Microalbumin,Random Urine 66.1 mg/L (NO RANGE EST.)
[2025-05-04 13:00] LABS: ALB/GLOB Ratio 1.6 RATIO (0.9-2.4); AST(SGOT) 17 U/L (<=37); Alanine Aminotransfer ALT/SGPT 15 U/L (<=46); Alkaline Phosphatase 68 U/L (40-129); Anion Gap 14 (5-15); BUN 24 mg/dL (4-19); BUN/Creat Ratio 12.8 RATIO (10-20); Calcium,Total 9.7 mg/dL (7.6-11.0); Carbon Dioxide 20.1 mmol/L (21.0-32.0); Chloride 104 mmol/L (98-108); Cholesterol 123 mg/dL (<=200); EST Glomerular Filtration Rate 39 (>60); Globulin 2.5 g/dL (2.2-4.2); Glucose 175 mg/dL (70-99); High Density Lipoprotein 36 mg/dL; Low Density Lipoprotein Calc. 55 mg/dL; Potassium 3.7 mmol/L (3.3-5.1); Protein, Total 6.5 g/dL (5.9-8.4); Sodium Level 138 mmol/L (133-145); Total Bilirubin 0.55 mg/dL (0.00-1.30); Triglycerides 160 mg/dL; Very Low Density Lipoprotein 32 mg/dL (5-40)
== END | disposition home or self-care (01) ==
LOC: MTLAB 09:06
PROVIDERS: PCP Family Medicine; Referring Provider Family Medicine; Visit Provider Family Medicine
DX: E11.69 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 other specified complication (principal); E03.9 Hypothyroidism, unspecified
CPT/HCPCS: 36415; 80053; 80061; 82043; 84439; 84443

== ENCOUNTER → 2025-06-21 | Outpatient (CLI) | payer MEDICARE, SELFPAY ==
--- NOTE | 2025-06-21 07:03 | ECHOD_ITS ---
Reason For Study Reason For Study: Dyspnea/SOB Procedure This was a 2D Doppler, Color Flow transthoracic echocardiogram. The study was technically difficult. Unable to utilize Definity due to patients kidney transplant. Exam performed in department. Left Ventricle Normal LV size. Severe concentric left ventricular hypertrophy. Left ventricular systolic function is normal. The left ventricular ejection fraction is 65 %. Stage 1 diastolic dysfunction. No regional wall motion abnormalities noted. Right Ventricle Normal RV size. Normal systolic function. Atria Normal left atrium. Normal right atrium. Mitral Valve Normal mitral valve. Tricuspid Valve Normal tricuspid valve. Aortic Valve Trisinus/trileaflet aortic valve. Mild focal aortic valve calcification. Peak aortic valve gradient 22 mmHg. Mean aortic valve gradient 11 mmHg. Mild aortic stenosis. Pulmonic Valve Normal pulmonic valve. Great Vessels Normal aortic root. The pulmonary artery is normal size. Inferior vena cava collapse with respiration. Pericardium/Pleural No pericardial effusion. Medication NO DEFINITY, KIDNEY TRANSPLANT. MMode/2D Measurements & Calculations LVIDd: 4.6 cm IVSd: 2.1 cm LVOT diam: 2.1 cm LVIDs: 2.9 cm LVPWd: 1.5 cm RVDd: 3.9 cm FS: 37.8 % LVOT area: 3.5 cm2 Ao root diam: 3.6 cm LAV(MOD-bp): 48.9 ml LA A4 area: 18.7 cm2 LAV(MOD-bp) Indexed: 22.6 ml/m2 LAV(MOD-sp2): 45.1 ml LAV(MOD-sp4): 50.9 ml LA dimension(2D): 4.7 cm TAPSE: 1.7 cm RA A4 area: 14.5 cm2 Time Measurements MV dec time: 0.26 sec Doppler Measurements & Calculations MV E max zak: 72.9 cm/sec Lat Peak E' Zak: 9.0 cm/sec Med Peak E' Zak: 7.9 cm/sec MV A max zak: 96.5 cm/sec E/E' lat: 8.1 E/E' med: 9.3 MV E/A: 0.75 MV V2 max: 108.4 cm/sec MV P1/2t max zak: 86.8 cm/sec Ao V2 max: 234.7 cm/sec MV max P.7 mmHg MV P1/2t: 97.4 msec Ao max P.0 mmHg MV V2 mean: 57.7 cm/sec MV dec slope: 261.2 cm/sec2 Ao V2 mean: 156.5 cm/sec MV mean P.6 mmHg Ao mean P.4 mmHg MV V2 VTI: 32.3 cm MVA(P1/2t): 2.3 cm2 Ao V2 VTI: 57.2 cm MVA(VTI): 3.0 cm2 AV (velocity ratio): 0.49 ADITI(I,D): 1.7 cm2 ADITI(V,D): 1.6 cm2 LV V1 max: 110.8 cm/sec SV(LVOT): 97.8 ml PA V2 max: 104.6 cm/sec LV V1 max P.9 mmHg PA V2 mean: 75.7 cm/sec LV V1 mean P.9 mmHg LV V1 mean: 79.2 cm/sec LV V1 VTI: 28.2 cm ECHO/Echo Complete Interpretation Summary Normal LV size. Left ventricular systolic function is normal. The left ventricular ejection fraction is 65 %. Stage 1 diastolic dysfunction. Mild focal aortic valve calcification. Mean aortic valve gradient 11 mmHg. Mild aortic stenosis. Severe concentric left ventricular hypertrophy. Ordering Physician: Alysa Solomon Referring Physician: Alysa Solomon Performed By: Jose Villa RCS
--- OUTSIDE RECORDS SUMMARY | 2025-06-21 07:05 | XMS RPT_ITS | CCD ---
Author Organization [facility] Care Team Providers Care Nurse Companion Name Role Phone Hasmukh RONNIE, Nuzhat K Unavailable Unavailable Pedro SCRIPT EDITOR, Jackie L Unavailable Unavailable TETYUK, JOSE L Unavailable Unavailable TANPHAICHITR, NATTHAVAT M Unavailable Unavai HILLARY Burgos Unavailable Unavail able TETYUK, JOSE L Unavailable Unavailable Marques Reveles Unavailable Unavailable MARV GALEAS Unavailable Unavailable HILLARY SANDHU Unavailable Unavail able TANPHAICHITR, NATTHAVAT Unavailable Unavaila AMANDA Haney Unavailable Unavailable Pedro SCRIPT EDITOR, Jackie L Unavailable Unavailable Marques Casanova MD Primary Care Provider Marlene ALVAREZ, Carleen Carr Unavailable Vinny COLON, Megan Lo Unavailable Ana Maria Bai MD Unavailable Dr. Marques Casanova Primary Care Provider Dr. Marques Casanova Referring Provider TAMEKA Contreras Attending Provider Dr. Adwoa Corado Emergency Provider [phone] Dr. Christiano Hogan Admit Provider Dr. Christiano Hogan Attending Provider [phone] Dr. Christiano Hogan Other Provider [phone] Moriah Aldridge Attending Provider [phone] Moriah Aldridge Other Provider Dr. Jarad Brand Other Provider Dr. Hillary Turpin Attending Provider Unavailable Dr. Hillary Turpin Other Provider Unavailable Dr. Pedro Echeverria Other Provider Dr. pK Seay Emergency Provider Dr. Liam Crisostomo Attending Provider Dr. Liam Crisostomo Admit Provider Dr. Liam Crisostomo Other Provider TAMEKA Contreras Attending Provider Dr. Marques Casanova Primary Care Provider [phone] Dr. Marques Casanova Referring Provider TAMEKA Contreras Attending Provider Dr. Marques Casanova Primary Care Provider Dr. Marques Casanova Referring Provider TAMEKA Contreras Attending Provider Dr. Marques Casanova Primary Care Provider Dr. Kp Seay Emergency Provider Dr. Liam Crisostomo Attending Provider Marques Casanova MD Primary Care Provider [phone] Marlene ALVAREZ, Carleen Carr Unavailable Vinny COLON, Megan Lo Unavailable Bhumika COLON, Ana Maria Oconnor Unavailable [phone] Marques Casanova Primary Care Provider Dr. Marques Casanova Primary Care Provider Dr. Marques Casanova Referring Provider [phone] TAMEKA Contreras Attending Provider Dr. Pedro Owens Attending Provider Dr. Santo Esparza Referring Provider Dr. Marques Casanova Primary Care Provider Dr. Marques Casanova Referring Provider TAMEKA Contreras Attending Provider Dr. Marques Casanova Primary Care Provider [phone] Dr. Marques Casanova Referring Provider TAMEKA Contreras Attending Provider MEGAN CANALES Referring Provider MEGAN CANALES Other Provider Dr. Gerson Prasad Attending Provider Edilberto COLON, Marques Primary Care Provider Marlene ALVAREZ, [place] J Unavailable Vinny COLON, Megan S Unavailable Bhumika COLON, Ana Maria Oconnor Unavailable Dr. George Braswell Attending Provider Dr. George Braswell Referring Provider Dr. George Braswell Other Provider Reddy Lopez DO, Christine Unavailable Marques Dumont(Historical) Primary Care Provider Unavailable Dr. Marques Casanova Primary Care Provider [phone] Dr. Marques Casanova Referring Provider TAMEKA Contreras Attending Provider Dr. Marques Casanova Primary Care Provider [phone] Dr. George Braswell Attending Provider Dr. George Braswell Referring Provider Dr. George Braswell Other Provider Dr. Marques Casanova Referring Provider TAMEKA Contreras Attending Provider Dr. Marques Casanova Primary Care Provider [phone] Dr. Marques Casanova Primary Care Provider [phone] Dr. Marques Casanova Referring Provider [phone] SHARMIN Contreras-C Ami Attending Provider [phone] Marlene COLON, KIM, [place] J Unavailable Dr. Marques Casanova Primary Care Provider Dr. Marques Casanova Referring Provider SHARMIN Contreras-C Ami Attending Provider [phone] Marques Dumont(Historical) Primary Care Provider Unavailable Vinny COLON, Megan S Unavailable Dr. Marques Casanova MD Primary Care Provider [phone] Edilberto COLON, Dr. Marques Diaz Attending Provider [phone] Dr. Marques Casanova MD Referring Provider Gita FINNEY-CAmi Attending Provider Kavon FINNEY-CChikis Attending Provider Homer Link Attending Provider Alysa Leroy Attending Provider Kavon FINNEY-CChikis Referring Provider Kavon FINNEY-CChikis Other Provider Dr. Gerson Prasad DO Attending Provider [phone] Dr. Marques Casanova MD Primary Care Provider Dr. Marques Casanova MD Referring Provider Kavon HORSE FARM MANAGER-CChikis Attending Provider Gita FINNEY-CAmi Attending Provider Yury FINNEY-Erika Lopez Attending Provider Isaias DAVALOS, Dr. Blanchard Other Provider ARMANDO JACK Attending Provider ARMANDO JACK Referring Provider TOÑO JOYCE Other Provider Edilberto COLON, Dr. Marques Diaz Primary Care Provider [phone] Kavon FINNEY-CChikis Attending Provider Edilberto COLON, Dr. Marques Diaz Referring Provider Kavon FINNEY-CChikis Referring Provider Edilberto COLON, Dr. Marques Diaz Attending Provider Edilberto COLON, Dr. Marques Diaz Primary Care Provider Kavon FINNEY-CChikis Attending Provider Alysa Leroy Attending Provider Edilberto COLON, Dr. Marques Diaz Primary Care Provider [phone] Chikis Gutierrez Attending Provider Edilberto COLON, Dr. Marques Diaz Referring Provider MARQUES CASANOVA Primary Care Unavailable GRACE REVELES Attending Unavailable SELF, SELF Referring Unavailable MARQUES CASANOVA Primary Care Unavailable CARLEEN ROSARIO Referring Unavailable MACY DAMON Attending Unavailable MARQUES CASANOVA Primary Care Unavailable CARLEEN ROSARIO Referring Unavailable MACY DAMON Attending Unavailable Marques Casanova Referring Unavailable Ami Contreras Attending Unavailable Marques Casanova Primary Care Unavailable Ami Contreras Attending Unavailable Marques Casanova Referring Unavailable Marques Casanova Primary Care Unavailable Chikis Jacobson Attending Unavailable Marques Casanova Primary Care Unavailable Marques Casanova Referring Unavailable Chikis Jacobson Attending Unavailable Marques Casanova Primary Care Unavailable Marques Casanova Referring Unavailable Santo Esparza Consulting Unavailable Marques Casanova Primary Care Unavailable SALTIS, LAWANCE Referring Unavailable SALTIS, LAWANCE Attending Unavailable SALTCED, LAWANCE Consulting Unavailable Marques Casanova Primary Care Unavailable Alysa Leroy Referring Unavail able Alysa Leroy Attending Unavail able Santo Esparza Consulting Unavailable Marques Casanova Primary Care Unavailable SALTIS, LAWANCE Referring Unavailable SALTIS, LAWANCE Attending Unavailable SALTIS, LAWANCE Consulting Unavailable Marques Casanova Attending Unavailable Schinbry, Marques E Primary Care Unavailable SchinMarques londono E Referring Unavailable RuChikis hernandez Attending Unavailable SchinMarques londono E Primary Care Unavailable SchinnerMarques E Referring Unavailable Schinner, Marques E Primary Care Unavailable Alysa Leroy Attending Unavail able Gerson Prasad Attending Unavailable Chikis Jacobson Referring Unavailable SchMarques horton E Primary Care Unavailable Gerson Prasad Attending Unavailable Chikis Jacobson Consulting Unavailable Chikis Jacobson Referring Unavailable Schinner, Marques E Primary Care Unavailable Schinner, Marques E Referring Unavailable Ami Contreras Attending Unavailable Marques Casanova Primary Care Unavailable Chikis Jacobson Attending Unavailable SchinMarques londono E Referring Unavailable Schinner, Marques E Primary Care Unavailable Schinner, Marques E Primary Care Unavailable Schinbry, Marques E Referring Unavailable Homer Link Attending Unavailable SchMarques horton E Primary Care Unavailable SchMarques horton Referring Unavailable Alysa Leroy Attending Unavail able Schinbry, Marques E Primary Care Unavailable Erika Cotton Attending Unavailable Marques Casanova E Referring Unavailable Chikis Jacobson Attending Unavailable Chikis Jacobson Attending Unavailable Chikis Jacobson Referring Unavailable SchMarques horton E Primary Care Unavailable Chikis Jacobson Attending Unavailable Chikis Jacobson Referring Unavailable Schinbry, Marques E Primary Care Unavailable Santo Esparza Consulting Unavailable Schclifford, Marques E Primary Care Unavailable JACKY CANTOR Referring Unavailable JACKY CANTOR Attending Unavailable JACKY CANTOR Consulting Unavailable Schclifford, Marques E Referring Unavailable SchMarques horton E Attending Unavailable Marques Casanova E Primary Care Unavailable Chikis Jacobson Attending Unavailable Chikis Jacobson Referring Unavailable SchinMarques londono E Primary Care Unavailable Ami Contreras Attending Unavailable Schinbry, Marques E Primary Care Unavailable Schinbry, Marques E Referring Unavailable Allergies Allergy Classification Reported Allergen(s) Allergy Type Date of Onset Reaction(s) Facility Angiotensin 2 Receptor Blockers (ARB) (1 source) Losartan Drug Allergy 11-11-2018 Hives [facility] Methoxy polyethylene glycol-epoetin beta (1 source) Methoxy polyethylene glycol-epoetin beta Drug Allergy 02-02-2019 Pain [facility] (20 sources) epoetin beta Drug Allergy 10-15-2020 back pain [facility] (20 sources) Losartan Drug Allergy 11-11-2018 Hives [facility] (19 sources) Methoxy polyethylene glycol-epoetin beta Drug Allergy 02-02-2019 Pain [facility] (19 sources) Methoxy polyethylene glycol-epoetin beta Drug Allergy 02-02-2019 Pain [facility] (1 source) epoetin beta Drug Allergy 05-24-2025 [facility] Repository (1 source) Losartan Drug Allergy 05-24-2025 [facility] Repository Medications Current Medications Medication Drug Class(es) Dates Sig (Normalized) Sig (Original) amLODIPine 10 mg oral tablet (20 sources) Dihydropyridine Calcium Channel Gabby Start: 05-02-2022 take 1 tablet by mouth once daily Amlodipine 10 mg tablet Active 10 mg PO DAILY May 02, 2022 12:00am BP Start: 01-08-2018 End: 05-08-2018 take 1 tablet by mouth once daily Amlodipine 10 MG tablet Discontinued 10 mg PO DAILY 30 0 January 08, 2018 1:00am May 08, 2018 11:21am Comment on above: Take 10 mg by mouth once daily. aspirin 81 mg chewable tablet (1 source) Platelet Aggregation Inhibitor, Nonsteroidal Anti-inflammatory Drug Start: 10-15-20 take 81 mg by mouth once daily Aspirin Active 81 MG PO DAILY October 15, 2020 11:08am atorvastatin 40 mg oral tablet (20 sources) HMG-CoA Reductase Inhibitor Start: 05-20-20 23 take 1 tablet by mouth at bedtime Atorvastatin 40 mg tablet Active 40 mg PO AT BEDTIME May 20, 2023 12:00am Start: 05-02-2022 End: 05-20-2023 take 1 tablet by mouth at bedtime Atorvastatin 20 mg tablet Discontinued 20 mg PO AT BEDTIME May 02, 2022 12:00am May 20, 2023 4:12pm CHOLESTEROL Start: 01-19-2019 take 10 mg by mouth once daily Atorvastatin Active 10 MG PO DAILY January 19, 2019 9:42pm End: 11-13-2024 take 4 tablets by mouth once daily atorvastatin 10 MG Tab tablet Take 4 tablets by mouth daily. Take two 10mg tabs at night for a total of 20mg 11/13/2024 Discontinued atorvastatin 10 MG Tab tablet Take 40 mg by mouth daily. Take two 10mg tabs at night for a total of 20mg 0 Active Blood-Glucose Sensor (Dexcom G7 Sensor) device (10 sources) Start: 09-16-2023 Blood-Glucose Sensor (Dexcom G7 Sensor) device Active 0 .Route 9 September 16, 2023 12:00am Diabetes mellitus 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 hyperglycemia nursing home (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 1 sensor q 10 days Start: 09-16-2023 Blood-Glucose Sensor (Dexcom G7 Sensor) device Active 0 .Route September 16, 2023 12:00am 1 sensor q 10 days Start: 09-16-2023 Blood-Glucose Sensor (Dexcom G7 Sensor) device Active 0 .Route September 15, 2023 11:00pm 1 sensor q 10 days calcitriol 0.92640 mg oral capsule (20 sources) Vitamin D3 Analog Start: 06-27-2021 take 1 capsule by mouth once daily Calcitriol 0.25 mcg Capsule Active 0.25 ug PO DAILY April 07, 2022 12:00am bone health Start: 06-12-2021 take 1 capsule by mo [facility] once daily calcitRIOL 0.25 MCG capsule Take 1 capsule by mouth daily. 30 capsule 3 06/12/2021 Active calcium citrate 1500 mg / cholecalciferol 250 unt oral tablet (1 source) Vitamin D Start: 11-17-2020 take 2 tablets by mouth once daily calcium citrate-vitamin D 315-250 MG-UNIT tablet Take 2 tablets by mouth daily. 180 tablet 0 11/17/2020 Active carvedilol 12.5 mg oral tablet (20 sources) alpha-Adrener gic Gabby, beta-Adrenerg ic Gabby Start: 07-04-2020 take 1 tablet by mouth twice daily Carvedilol 12.5 mg tablet Active 12.5 mg PO TWICE A DAY May 02, 2022 12:00am HEART Start: 01-27-2019 take 2 tablets by mo ut once daily Carvedilol (Coreg) 6.25 mg tablet Active 12.5 MG PO DAILY January 27, 2019 2:35pm Comment on above: Take 12.5 mg by mout h. citalopram 40 mg oral tablet (20 sources) Serotonin Reuptake Inhibitor Start: 12-18-2024 take 1 tablet by mouth once daily Citalopram 40 mg tablet Active 40 mg PO DAILY December 18, 2024 1:00am Start: 08-12-2018 End: 04-06-2024 take 1 tablet by mouth once daily Citalopram 40 MG tablet Discontinued 40 mg PO DAILY January 19, 2019 1:00am April 06, 2024 11:12am DEPRESSION Comment on above: Take 40 mg by mouth once daily. CPAP/BIPAP/OTHER (7 sources) Start: 06-17-2023 End: 11-01-2050 CPAP/BIPAP/OTHER Supplies: Settings IPAP 16, EPAP 10, PS 6 cm H2O, suitable mask per pt preference, chin strap, head gear, humidity, tubing, lifetime supplies. G47.33 DAVID 1 Each 06/17/2023 11/01/2050 Active Start: 06-17-2023 End: 11-01-2050 CPAP/BIPAP/OTHER Supplies: S ettings IPAP 16, EPAP 10, PS 6 cm H2O, suitable mask per pt preference, chin strap, head gear, humidity, tubing, lifetime supplies. G47.33 DAVID 1 Each 0 06/17/2023 11/01/2050 Active Comment on above: Supplies: Settings I PAP 16, EPAP 10, PS 6 cm H2O, suitable mask per pt preference, chin strap, head gear, humidity, tubing, lifetime supplies. G47.33 DAVID CUSTOM MEDICATION (4 sources) Start: 12-01-19 CUSTOM MEDICATION Please obtain Chem-10 and CBC twice weekly, as well as BK PCR once weekly, and have results faxed to Waylon Kulkarni MD at [phone]. 1 Each 0 12/01/2020 Active cycloSPORINE, modified 25 mg oral capsule (2 sources) Calcineurin Inhibitor Immunosuppressant Start: 10-15-20 20 take 25 mg by mouth twice daily Cyclosporine Modified Active 25 MG PO TWICE A DAY October 15, 2020 11:08am 1 ml denosumab 60 mg/ml prefilled syringe (20 sources) RANK Ligand Inhibitor Start: 02-14-20 23 Denosumab (Prolia) 60 mg/mL syringe Active 60 mg SC every 6 months 11 25February 13, 2023 12:00am Osteoporosis Age-related osteoporosis without current pathological fracture inject 1 mL by subcutaneous inje ction once denosumab (PROLIA) 60 MG/ML SOSY injection Inject 1 mL under the skin once. Active Comment on above: Inject 60 mg subcuta neously. dulaglutide (TRULICITY) 4.5 mg/0.5 mL pen injector (2 sources) inject 4.5 mg by subcutaneous injection every week dulaglutide (TRULICITY) 4.5 mg/0.5 mL pen injector Inject 4.5 mg subcutaneously one time a week. Active 0.8 ml filgrastim-sndz 0.6 mg/ml prefilled syringe (1 source) Leukocyte Growth Factor Start: 020 Filgrastim-Sndz Active 480 MCG IJ DAILY October 15, 2020 11:08am Flash Glucose Sensor (Freestyle Javed 2 Sensor) kit (20 sources) Start: 022 Flash Glucose Sensor (Freestyle Javed 2 Sensor) kit Active 0 .ROUTE .MEDSUPPLY 2 March 08, 2022 7:59am As directed Start: 03-08-2022 End: 08-13-2024 Flash Glucose Sensor (Freest yle Javed 2 Sensor) kit Discontinued 0 .ROUTE .MEDSUPPLY 2 March 08, 2022 12:00am August 13, 2024 11:15am As directed Start: 03-08-2022 End: 08-13-2024 Flash Glucose Sensor (Freest yle Javed 2 Sensor) kit Discontinued 0 .ROUTE .MEDSUPPLY 2 March 08, 2022 12:00am August 13, 2024 11:15am As directed Start: 03-08-2022 Flash Glucose Sensor (Freestyle Javed 2 Sensor) kit Active 0 .ROUTE .MEDSUPPLY 2 March 07, 2022 11:00pm As directed Start: 03-08-2022 Flash Glucose Sensor (Freestyle Javed 2 Sensor) kit Active 0 .ROUTE .MEDSUPPLY 2 March 08, 2022 12:00am As directed Start: 03-01-2022 End: 03-08-2022 Flash Glucose Sensor (Freest yle Javed 2 Sensor) kit Discontinued 0 .ROUTE .MEDSUPPLY 2 March 01, 2022 4:19pm March 08, 2022 7:59am As directed Start: 03-01-2022 End: 03-08-2022 Flash Glucose Sensor (Freest yle Javed 2 Sensor) kit Discontinued 0 .ROUTE .MEDSUPPLY 2 March 01, 2022 12:00am March 08, 2022 7:59am As directed Start: 03-01-2022 End: 03-08-2022 Flash Glucose Sensor (Freest yle Javed 2 Sensor) kit Discontinued 0 .ROUTE .MEDSUPPLY 2 February 28, 2022 11:00pm March 08, 2022 6:59am As directed Start: 03-01-2022 End: 03-08-2022 Flash Glucose Sensor (Freest yle Javed 2 Sensor) kit Discontinued 0 .ROUTE .MEDSUPPLY 2 March 01, 2022 12:00am March 08, 2022 7:59am As directed hydrALAZINE hydrochloride 25 mg oral tablet (20 sources) Arteriolar Vasodilator Start: 06-27-2021 take 1 tablet by mouth twice daily Hydralazine 25 mg Tablet Active 25 mg PO TWICE A DAY April 07, 2022 12:00am blood pressure Start: 06-12-2021 take 1 tablet by robe twice daily hydrALAZINE 25 MG tablet Take 1 tablet by mouth 2 times daily. 60 tablet 11 06/12/2021 Active Start: 01-27-2019 End: 04-17-2019 take 3 tablets by mouth three times daily Hydralazine 25 mg tablet Discontinued 75 mg PO THREE TIMES A DAY January 27, 2019 2:36pm April 17, 2019 1:45pm Start: 01-27-2019 End: 04-17-2019 take 75 mg by mouth three times daily Hydralazine Discontinued 75 MG PO THREE TIMES A DAY January 27, 2019 2:36pm April 17, 2019 1:45pm Start: 01-19-2019 End: 01-27-2019 take 1 tablet by mouth three times daily Hydralazine 25 MG tablet Discontinued 25 mg PO THREE TIMES A DAY January 19, 2019 1:00am January 27, 2019 2:38pm Start: 01-08-2018 End: 05-08-2018 take 1 tablet by mouth three times daily Hydralazine 25 MG tablet Discontinued 25 mg PO THREE TIMES A DAY 90 0 January 08, 2018 1:00am May 08, 2018 11:22am Comment on above: Take 25 mg by mouth three times daily. 3 ml insulin aspart, human 100 unt/ml pen injector (7 sources) Insulin Analog Start: 01-18-2025 NOVOLOG FLEXPEN U-100 INSULIN 100 unit/mL (3 mL) INJECT 25 UNITS SUBCUTANEOUSLY THREE TIMES A DAY 01/18/2025 Active Start: 01-18-2025 End: 05-18-2025 Insulin Aspart U-100 (Novolo g Flexpen U-100 Insulin) 100 unit/mL (3 mL) insulin pen Discontinued 25 U SC THREE TIMES A DAY 22.5 0 January 18, 2025 1:00am May 18, 2025 2:55pm Diabetes mellitus 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 hyperglycemia nursing home (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 3 ml insulin glargine 100 unt/ml pen injector (5 sources) Insulin Analog Start: 10-01-2024 Insulin Glargi ne (Basaglar Kwikpen U-100 Insulin) 100 unit/mL (3 mL) insulin pen Active 20 U SC EVERY MORNING 18 2 October 01, 2024 1:00am 3 ml insulin lispro 100 unt/ml pen injector (20 sources) Insulin Analog Start: 09-29-2024 Insulin Lispro (Humalog Kwikpen Insulin) 100 unit/mL insulin pen Active 20 U SC THREE TIMES A DAY 60 1 September 29, 2024 1:00am Start: 05-29-2019 End: 12-18-2024 Insulin Lispro 100 UNIT/ML cartridge Discontinued 0 U SQ NEEDED as needed for Blood sugar May 29, 2019 12:00am December 18, 2024 11:43am Please contact the information source for Protocol details. Start: 05-29-2019 Insulin Lispro Active 0 UNIT SQ NEEDED May 29, 2019 12:00am End: 11-13-2024 inject 12-18 [IU] by subcutaneous injection three times daily, then inject 12 [IU] by subcutaneous injection before mealtime, then inject 12 [IU] by subcutaneous injection at breakfast, then inject 18 [IU] by subcutaneous injection at dinner Insulin Lispro, 1 Unit Dial, 100 UNIT/ML Solution Pen-injector Inject 12-18 Units under the skin 3 times daily (take before meals). Take 12 units with breakfast, 12 units with lunch, 18 units with dinner 11/13/2024 Discontinued isopropyl alcohol 0.7 ml/ml medicated pad (4 sources) Start: 11-17-2020 Alcohol Swabs Pads Use to cleanse fingertip before each blood glucose test. 200 Each 1 11/17/2020 Active levothyroxine sodium 0.175 mg oral tablet (20 sources) l-Thyroxi ne Start: 11-30-2018 take 1 tablet by mouth once daily Levothyroxine 175 MCG tablet Active 175 ug PO DAILY October 15, 2020 1:00am thyroid Start: 09-24-2012 SYNTHROID 150 mcg tablet 175 mcg once daily. 09/24/2012 Active SYNTHROID 150 MC G TABS qd LEVOTHYROXINE SODIUM [id number] Jackie Vasquez LPN SYNTHROID 150 MC G TABS qd LEVOTHYROXINE SODIUM [id number] Jackie Vasquez LPN Comment on above: 175 mcg once daily. linagliptin 5 mg oral tablet (1 source) Dipeptidyl Peptidase 4 Inhibitor take 1 tablet by mouth once daily linaGLIPtin 5 MG tablet Take 5 mg by mouth daily. 0 Active mycophenolic acid 180 mg delayed release oral tablet (20 sources) Antimetabolite Immunosuppressant Start: take 2 tablets by mouth every twelve hours Mycophenolate sodium (MYFORTIC) [address] Indications: Kidney replaced by transplant Take 2 tablets by mouth every 12 hours. 360 tablet 1 11/09/2024 Active Start: 10-09-2024 take 2 tablets by mo uth every twelve hours Mycophenolate sodium (MYFORTIC) [address] Indications: Kidney replaced by transplant Take 2 tablets by mouth every 12 hours. 120 tablet 1 10/09/2024 Active Start: 03-04-2024 take 2 tablets by mo uth every twelve hours Mycophenolate sodium (MYFORTIC) [address] Indications: Kidney replaced by transplant Take 2 tablets by mouth every 12 hours. 120 tablet 6 03/04/2024 Active Start: 05-24-[address] (MYFORTIC) 180 mg EC tablet 05/24/2023 Active Start: 03-07-2023 take 2 tablets by mo uth every twelve hours Mycophenolate sodium (MYFORTIC) [address] Indications: Kidney replaced by transplant Take 2 tablets by mouth every 12 hours. 120 tablet 11 03/07/2023 Active Start: 04-07-2022 take 2 tablets by mo uth twice daily Mycophenolate Sodium 180 mg Tablet,Delayed Release (Dr/Ec) Active 360 mg PO TWICE A DAY April 07, 2022 12:00am antirejection Start: 04-07-2022 take 360 mg by mouth twice daily Mycophenolate Sodium Active 360 MG PO TWICE A DAY April 07, 2022 12:00am Start: 03-02-20[address] [facility] every twelve hours Mycophenolate sodium (MYFORTIC) [address] Indications: Kidney replaced by transplant Take 2 tablets by mouth every 12 hours. 120 tablet 11 03/02/2022 Active OZEMPIC 2 mg/dose (8 mg/3 mL) pen injector (2 sources) Start: 01-18-2025 inject 2 mg by subcutaneous injection every week OZEMPIC 2 mg/dose (8 mg/3 mL) pen injector INJECT 2 MG (0.75 ML) SUBCUTANEOUSLY EVERY WEEK 01/18/2025 Active pantoprazole 40 mg delayed release oral tablet (20 sources) Proton Pump Inhibitor Start: 08-12-2018 take 1 tablet by mouth once daily Pantoprazole 40 MG tablet Active 40 mg PO DAILY October 15, 2020 1:00am reflux Comment on above: Take 40 mg by mouth once daily. polysaccharide iron complex 150 mg oral capsule (1 source) Start: 06-12-2021 take 1 capsule by mouth once daily iron polysaccharides 150 MG capsule Take 1 capsule by mouth daily. 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 Start: 01-18-2025 Semaglutide (O zempic) 2 mg/dose (8 mg/3 mL) pen injector Active 2 mg SC EVERY WEEK 3 January 18, 2025 1:00am SITagliptin 25 mg oral tablet (1 source) Dipeptidyl Peptidase 4 Inhibitor Start: 10-15-2020 take 25 mg by mouth once daily Sitagliptin Active 25 MG PO DAILY October 15, 2020 11:08am sofosbuvir 400 mg / velpatasvir 100 mg oral tablet (1 source) Hepatitis C Virus NS5A Inhibitor, Hepatitis C Virus Nucleotide Analog NS5B Polymerase Inhibitor Start: 10-15-2020 take 1 tablet by mouth once daily Sofosbuvir-Velpa tasvir Active 1 TABLET PO DAILY October 15, 2020 11:08am sulfamethoxazole 800 mg / trimethoprim 160 mg oral tablet (1 source) Dihydrofolate Reductase Inhibitor Antibacterial, Sulfonamide Antimicrobial Start: 02-04-2019 Sulfamethoxazole -Trimethoprim Active 1 TABLET PO MOWEFR February 04, 2019 5:38pm 24 hr tacrolimus 0.75 mg extended release oral tablet (20 sources) Calcineurin Inhibitor Immunosuppressant Start: 09-27-2023 take 1 tablet by mouth every twenty-four hours Tacrolimus (ENVARSUS XR) 0.75 MG Tab SR 24 HR Take 1 tablet by mouth daily. 90 tablet 3 09/27/2023 Active Start: 06-21-2023 take 1 tablet by robe th every twenty-four hours Tacrolimus (ENVARSUS XR) 0.75 MG Tab SR 24 HR Take 1 tablet by mouth daily. 90 tablet 0 06/21/2023 Active Start: 01-10-2023 take 1 tablet by robe th every twenty-four hours Tacrolimus (ENVARSUS XR) 0.75 MG Tab SR 24 HR Take 1 tablet by mouth daily. 90 tablet 1 01/10/2023 Active Start: 05-02-2022 take 1 tablet by robe th once daily, then take 1 tablet by mouth every twenty-four hours Tacrolimus (Envarsus Xr) 0.75 mg tablet extended release 24 hr Active 0.75 mg PO DAILY May 02, 2022 12:00am TRANSPLANT Start: 04-07-2022 take 0.75 mg by mouth once frantz ly Envarsus XR Active 0.75 MG SL/PO DAILY April 07, 2022 3:51pm Start: 02-05-2022 take 1 tablet by robe th every twenty-four hours Tacrolimus (Envarsus XR) 0.75 MG Tab SR 24 HR Take 1 tablet by mouth daily. 90 tablet 3 02/05/2022 Active Start: 06-12-2021 End: 06-22-2021 take 1 capsule by mouth once daily tacrolimus (generic) 0.5 MG capsule Indications: Renal transplant recipient Take 1 capsule by mouth daily. 30 capsule 11 06/12/2021 06/22/2021 Discontinued (Reorder) Comment on above: Take 1 tablet by robe th once daily. Completed/Discontinued Medications Medication Drug Class(es) Dates Sig (Normalized) Sig (Original) acetaminophen 325 mg / HYDROcodone bitartrate 5 mg oral tablet (20 sources) Opioid Agonist Start: 05-29-2019 End: 05-31-2019 Hydrocodone-Acetamino phen 1 TABLET tablet Discontinued 1 {tbl} PO EVERY 6 HOURS NEEDED as needed for Pain 5 2 0 May 29, 2019 May 30, 2019 12:00am May 31, 2019 12:09am Postoperative pain Other acute postprocedural pain Start: 05-29-2019 End: 05-31-2019 take 1 tablet by mouth every six hours as needed Hydrocodone-Acetaminophen Discontinued 1 TABLET PO EVERY 6 HOURS NEEDED 5 2 May 29, 2019 May 30, 2019 11:09pm acitretin 10 mg oral capsule (8 sources) Retinoid Start: 12-17-2022 End: 04-02-2023 take 1 capsule by mouth once daily at dinner Acitretin (Soriatane) 10 MG capsule Take 1 capsule by mouth Daily (with dinner). 30 capsule 2 12/17/2022 04/02/2023 Discontinued (Cost of medication) albuterol 0.833 mg/ml / ipratropium bromide 0.167 mg/ml inhalation solution (20 sources) Anticholinergic , beta2-Adrenergi c Agonist Start: 12-24-2018 End: 01-03-2019 take 1 mL by inhalation every six hours Ipratropium-Albute rol 3 ML Ampul.Neb Discontinued 3 mL INHALATION EVERY 6 HOURS WHILE AWAKE December 24, 2018 1:00am January 02, 2019 1:00am January 03, 2019 1:08am Pneumonia Pneumonia, unspecified organism Start: 12-24-2018 End: 01-03-2019 take 1 mL by inhalation every six hours Ipratropium-Albuterol Discontinued 3 ML INHALATION EVERY 6 HOURS WHILE AWAKE 12 04December 24, 2018 1:00am January 03, 2019 1:08am amoxicillin 875 mg / clavulanate 125 mg oral tablet (20 sources) Penicillin-class Antibacterial Start: 02-20-2025 End: 02-25-2025 Amoxicillin-Pot Clavulanate 875-125 mg tablet Discontinued 1 {tbl} PO TWICE A DAY 10 5 0 February 20, 2025 12:00am February 24, 2025 12:00am February 25, 2025 12:14am Start: 04-10-2022 End: 05-03-2022 Amoxicillin-Pot Clavulanate 875-125 mg tablet Discontinued 1 {tbl} PO TWICE A DAY 28 0 May 01, 2022 12:00am May 03, 2022 1:31pm Start: 04-10-2022 End: 05-03-2022 take 1 tablet by mouth twice daily Amoxicillin-Pot Clavulanate Discontinued 1 TABLET PO TWICE A DAY April 30, 2022 11:00pm May 03, 2022 12:31pm azithromycin 250 mg oral tablet (14 sources) Macrolide Antimicrobial Start: 04-07-2025 End: 04-13-2025 Azithromycin 250 mg tablet Discontinued 250 mg PO As Directed April 07, 2025 12:00am April 13, 2025 9:52am Start: 04-22-2024 End: 08-13-2024 Azithromycin 250 mg tablet Discontinued 250 mg PO daily 6 April 22, 2024 12:00am August 13, 2024 11:15am 2 tablets today, then 1 tablet daily on days 2 through 5 Start: 04-01-2024 End: 04-06-2024 take 2-5 tablets by mouth once daily Azithromycin 250 mg tablet Discontinued 0 PO .COMPLEX 6 April 01, 2024 12:00am April 06, 2024 11:11am take 500 mg today (day 1), then 250 mg for 4 days (days 2-5) PO benzonatate 200 mg oral capsule (10 sources) Non-narcotic Antitussive Start: 12-14-2024 End: 05-18-2025 take 1 capsule by mouth three times daily as needed for cough Benzonatate 200 mg capsule Discontinued 200 mg PO THREE TIMES A DAY as needed for cough 20 0 December 14, 2024 1:00am May 18, 2025 2:54pm Start: 04-01-2024 End: 04-06-2024 take 2 capsules by mouth three times daily as needed for cough Benzonatate 100 mg capsule Discontinued 200 mg PO THREE TIMES A DAY as needed for cough 30 0 April 01, 2024 12:00am April 06, 2024 11:11am BLOOD GLUCOSE MONITORING SUPPL (2 sources) [employer] 2 w/Device KIT check BG bid BLOOD GLUCOSE MONITORING SUPPL [id number] Jackie Vasquez LPN BLOOD GLUCOSE MONITORING SUPPL (1 source) iSOCOTOUCH ULTRA 2 w/Device KIT check BG bid BLOOD GLUCOSE MONITORING SUPPL [id number] Jackie Junior Vasquez LPN calcium acetate 667 mg oral capsule (20 sources) Start: 01-19-2019 End: 12-22-2019 Calcium Acetate(Phosphat Bind) 667 MG capsule Discontinued 2000 NMA PO 3 TIMES DAILY WITH MEALS January 19, 2019 1:00am December 22, 2019 2:53pm nadine albicans allergenic extract 1000 unt/ml injectable solution (3 sources) Non-Standardized Food Allergenic Extract, Non-Standardized Fungal Allergenic Extract Start: 10-21-2023 End: 10-21-2023 nadine albicans skin test injection 0.3 mL Start: 09-19-2023 End: 09-20-2023 nadine albicans skin test i njection 0.3 mL cefuroxime 500 mg oral tablet (3 sources) Cephalosporin Antibacterial Start: 04-13-2025 End: 05-18-2025 take 1 tablet by mouth every twelve hours Cefuroxime Axetil 500 mg tablet Discontinued 500 mg PO Q12H 20 0 April 13, 2025 12:00am May 18, 2025 2:54pm Moderate persistent asthma Bronchiectasis Moderate persistent asthma, uncomplicated Bronchiectasis, uncomplicated cyclophosphamide 25 mg oral capsule (20 sources) Alkylating Drug Start: 01-27-2019 End: 04-17-2019 take 100 mg by mouth at bedtime Cyclophosphamide Discontinued 100 MG PO BEDTIME January 27, 2019 2:36pm April 17, 2019 1:43pm Start: 01-19-2019 End: 04-17-2019 take 1 capsule by mouth at bedtime Cyclophosphamide 25 mg capsule Discontinued 100 mg PO BEDTIME January 27, 2019 2:36pm April 17, 2019 1:43pm dapagliflozin 10 mg oral tablet (20 sources) Sodium-Glucose Cotransporter 2 Inhibitor Start: 07-24-2023 End: 11-26-2024 take 1 tablet by mouth once daily Dapagliflozin Propanediol (Farxiga) 10 mg tablet Discontinued 10 mg PO DAILY 90 3 August 02, 2023 10:03am November 26, 2024 6:49pm Chronic kidney disease Diabetes mellitus Microalbuminuria Chronic kidney disease, stage 3b 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 hyperglycemia nursing home (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 Proteinuria, unspecified doxycycline hyclate 100 mg oral capsule (20 sources) Tetracycline-class Drug Start: 05-03-2022 End: 05-20-2023 take 1 capsule by mouth twice daily Doxycycline Hyclate 100 mg capsule Discontinued 100 mg PO TWICE A DAY 14 0 May 03, 2022 12:00am May 20, 2023 4:18pm Dulaglutide (20 sources) GLP-1 Receptor Agonist Start: 08-13-2024 End: 01-18-2025 Dulaglutide (Trulicity) 4.5 mg/0.5 mL pen injector Discontinued 4.5 mg SC EVERY WEEK August 13, 2024 12:00am January 18, 2025 8:53am Start: 05-20-2023 End: 08-13-2024 Dulaglutide (Trulicity) 3 mg /0.5 mL pen injector Discontinued 3 mg SC EVERY WEEK May 20, 2023 12:00am August 13, 2024 11:11am Start: 05-20-2023 Dulaglutide (T rulicity) 3 mg/0.5 mL pen injector Active 3 MG SC EVERY WEEK May 19, 2023 11:00pm Start: 05-20-2023 Dulaglutide (T rulicity) 3 mg/0.5 mL pen injector Active 3 MG SC EVERY WEEK May 20, 2023 12:00am Start: 06-07-2022 End: 10-10-2022 Dulaglutide (Trulicity) 1.5 mg/0.5 mL pen injector Discontinued 1.5 mg SC EVERY WEEK 2 0 June 07, 2022 12:00am October 10, 2022 4:55pm Start: 05-02-2022 End: 06-07-2022 Dulaglutide (Trulicity) 0.75 mg/0.5 mL pen injector Discontinued 0.75 mg SC May 02, 2022 1:48pm June 07, 2022 3:58pm DM Start: 03-01-2022 End: 05-02-2022 Dulaglutide (Trulicity) 0.75 mg/0.5 mL pen injector Discontinued 0.75 mg SC EVERY WEEK 6 0 March 01, 2022 4:31pm May 02, 2022 1:49pm inject 0.75 mg by rojas bcutaneous injection every week Dulaglutide (TRULICITY SC) Inject 0.75 mg under the skin once a week. Active inject 0.75 mg by rojas bcutaneous injection every week Dulaglutide (TRULICITY SC) Inject 0.75 mg under the skin once a week. 0 Active End: 07-03-2017 TRULICITY 1.5 MG/0.5ML SOPN 1 ml q d DULAGLUTIDE [id number] Jackie Vasquez SCRIPT EDITOR TRULICITY 1.5 MG /0.5ML SOPN 1 ml q d DULAGLUTIDE [id number] Jackie Vasquez SCRIPT EDITOR TRULICITY 1.5 MG /0.5ML SOPN 1 ml q d DULAGLUTIDE [id number] Jackie Vasquez SCRIPT EDITOR Flash Glucose Scanning Reade r (Freestyle Javed 2 Cascade) misc (20 sources) Start: 09-12-2023 End: 08-13-2024 Flash Glucose Scanning Reade r (Freestyle Javed 2 Cascade) misc Discontinued 0 .ROUTE .MEDSUPPLY 1 September 12, 2023 7:37am August 13, 2024 11:15am Type 2 diabetes mellitus nursing home current use of insulin 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 unspecified complications nursing home (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 As directed Start: 09-12-2023 End: 08-13-2024 Flash Glucose Scanning Reade r (Freestyle Javed 2 Cascade) misc Discontinued 0 .ROUTE .MEDSUPPLY September 12, 2023 7:37am August 13, 2024 11:15am As directed Start: 09-12-2023 Flash Glucose Scanning Cascade (Freestyle Javed 2 Cascade) misc Active 0 .ROUTE .MEDSUPPLY September 12, 2023 7:37am As directed Start: 09-12-2023 Flash Glucose Scanning Cascade (Freestyle Javed 2 Cascade) misc Active 0 .ROUTE .MEDSUPPLY September 12, 2023 6:37am As directed Start: 09-11-2023 End: 08-13-2024 Flash Glucose Scanning Reade r (Freestyle Javed 2 Cascade) misc Discontinued 0 .Route 1 September 11, 2023 3:57pm August 13, 2024 11:15am Diabetes mellitus 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 hyperglycemia 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 As directed Start: 09-11-2023 End: 08-13-2024 Flash Glucose Scanning Reade r (Freestyle Javed 2 Cascade) misc Discontinued 0 .Route 1 September 11, 2023 3:57pm August 13, 2024 11:15am As directed Start: 09-11-2023 Flash Glucose Scanning Cascade (Freestyle Javed 2 Cascade) misc Active 0 .Route 1 September 11, 2023 3:57pm As directed Start: 09-11-2023 Flash Glucose Scanning Cascade (Freestyle Javed 2 Cascade) misc Active 0 .Route 1 September 11, 2023 2:57pm As directed Start: 09-06-2023 End: 09-11-2023 Flash Glucose Scanning Reade r (Freestyle Javed 2 Cascade) misc Discontinued 0 .Route 1 September 06, 2023 12:00am September 11, 2023 3:57pm As directed Start: 09-06-2023 End: 09-11-2023 Flash Glucose Scanning Reade r (Freestyle Javed 2 Cascade) misc Discontinued 0 .Route 1 September 06, 2023 12:00am September 11, 2023 3:57pm As directed Start: 09-06-2023 End: 09-11-2023 Flash Glucose Scanning Reade r (Freestyle Javed 2 Cascade) misc Discontinued 0 .Route 1 September 05, 2023 11:00pm September 11, 2023 2:57pm As directed Start: 03-08-2022 Flash Glucose Scanning Cascade (Freestyle Javed 2 Cascade) misc Active 0 .ROUTE .MEDSUPPLY 1 March 08, 2022 7:59am As directed Start: 03-08-2022 End: 09-12-2023 Flash Glucose Scanning Reade r (Freestyle Javed 2 Cascade) misc Discontinued 0 .ROUTE .MEDSUPPLY 1 0 March 08, 2022 12:00am September 12, 2023 7:37am Type 2 diabetes mellitus 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 unspecified complications As directed Start: 03-08-2022 End: 09-12-2023 Flash Glucose Scanning Reade r (Freestyle Javed 2 Cascade) misc Discontinued 0 .ROUTE .MEDSUPPLY 1 March 08, 2022 12:00am September 12, 2023 7:37am As directed Start: 03-08-2022 End: 09-12-2023 Flash Glucose Scanning Reade r (Freestyle Javed 2 Cascade) misc Discontinued 0 .ROUTE .MEDSUPPLY 1 March 07, 2022 11:00pm September 12, 2023 6:37am As directed Start: 03-08-2022 Flash Glucose Scanning Cascade (Freestyle Javed 2 Cascade) misc Active 0 .ROUTE .MEDSUPPLY 1 March 07, 2022 11:00pm As directed Start: 03-08-2022 Flash Glucose Scanning Cascade (Freestyle Javed 2 Cascade) misc Active 0 .ROUTE .MEDSUPPLY 1 March 08, 2022 12:00am As directed Start: 03-01-2022 End: 03-08-2022 Flash Glucose Scanning Reade r (Freestyle Javed 2 Cascade) misc Discontinued 0 .ROUTE .MEDSUPPLY 1 March 01, 2022 4:19pm March 08, 2022 7:59am As directed Start: 03-01-2022 End: 03-08-2022 Flash Glucose Scanning Reade r (Freestyle Javed 2 Cascade) misc Discontinued 0 .ROUTE .MEDSUPPLY 1 0 March 01, 2022 12:00am March 08, 2022 7:59am As directed Start: 03-01-2022 End: 03-08-2022 Flash Glucose Scanning Reade r (Freestyle Javed 2 Cascade) misc Discontinued 0 .ROUTE .MEDSUPPLY 1 February 28, 2022 11:00pm March 08, 2022 6:59am As directed Start: 03-01-2022 End: 03-08-2022 Flash Glucose Scanning Reade r (Freestyle Javed 2 Cascade) misc Discontinued 0 .ROUTE .MEDSUPPLY March 01, 2022 12:00am March 08, 2022 7:59am As directed furosemide 80 mg oral tablet (20 sources) Loop Diuretic Start: 02-04-2019 End: 05-20-2019 take 1 tablet by mouth once daily Furosemide 80 MG tablet Discontinued 80 mg PO DAILY February 04, 2019 12:00am May 20, 2019 12:59pm fluid GLUCOSE BLOOD (4 sources) Start: 07-03-2017 End: 10-03-2025 ONETOUCH ULTRA BLUE STRP check BG 6 times daily GLUCOSE BLOOD [id number] Nuvia Lilly Shi [employer] ONETOUCH ULTRA B LUE STRP check BG bid GLUCOSE BLOOD [id number] Jackie Vasquez SCRIPT EDITOR GLUCOSE BLOOD (1 source) ONETOUCH ULTRA B LUE STRP check BG bid GLUCOSE BLOOD [id number] Jackie Vasquez SCRIPT EDITOR Insulin Degludec (Tresiba Flextouch U-100) 100 unit/mL (3 mL) insulin pen (5 sources) Start: 01-18-2025 End: 02-20-2025 Insulin Degludec (Tresiba Flextouch U-100) 100 unit/mL (3 mL) insulin pen Discontinued 20 U SC AT BEDTIME 6 January 18, 2025 1:00am February 20, 2025 11:37am Diabetes mellitus 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 hyperglycemia 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 Start: 01-18-2025 End: 02-20-2025 Insulin Degludec (Tresiba Fl extouch U-100) 100 unit/mL (3 mL) insulin pen Discontinued 20 U SC AT BEDTIME 6 January 18, 2025 1:00am February 20, 2025 11:37am Start: 01-18-2025 Insulin Deglud ec (Tresiba Flextouch U-100) 100 unit/mL (3 mL) insulin pen Active 20 U SC AT BEDTIME 6 January 18, 2025 1:00am 3 ml insulin detemir 100 unt/ml pen injector (20 sources) Insulin Analog Start: 05-02-2022 End: 05-20-2023 Insulin Detemir U-100 (Levemir Flextouch U100 Insulin) 100 unit/mL (3 mL) insulin pen Discontinued 28 U SC AT BEDTIME May 02, 2022 12:00am May 20, 2023 4:18pm diabetes Start: 12-01-2020 inject 10 [IU] by rojas bcutaneous injection at bedtime insulin detemir 100 UNIT/ML Solution Pen-injector injection Inject 10 Units under the skin at bedtime. Or as instructed by your PCP. 1 Prefilled Pen/Syringe 3 12/01/2020 Active Start: 10-28-2015 End: 01-08-2018 Insulin Detemir U-100 (Levem ir Flextouch U100 Insulin) 100 UNITS/ML Insuln.Pen Discontinued 45 U SC TWICE A DAY October 28, 2015 1:00am January 08, 2018 2:49pm DIABETES Start: 10-28-2015 End: 01-08-2018 Insulin Detemir U-100 (Levem ir Flextouch U-100 Insuln) 100 UNITS/ML Insuln.Pen Discontinued 45 UNITS SC TWICE A DAY October 28, 2015 1:00am January 08, 2018 2:49pm LEVEMIR FLEXTOUC H 100 UNIT/ML SOPN sq 45U bid INSULIN DETEMIR [id number] Jackie Vasquez SCRIPT EDITOR LEVEMIR FLEXTOUC H 100 UNIT/ML SOPN sq 45U bid INSULIN DETEMIR [id number] Jackie Vasquez SCRIPT EDITOR Insulin Detemir U-100 (Levem ir Flextouch U100 Insulin) 100 unit/mL (3 mL) insulin pen (13 sources) Start: 05-20-2023 End: 10-01-2024 Insulin Detemir U-100 (Levem ir Flextouch U100 Insulin) 100 unit/mL (3 mL) insulin pen Discontinued 22 U SC DAILY May 20, 2023 4:13pm October 01, 2024 11:19am diabetes Start: 05-20-2023 End: 10-01-2024 Insulin Detemir U-100 (Levem ir Flextouch U100 Insulin) 100 unit/mL (3 mL) insulin pen Discontinued 22 U SC DAILY May 20, 2023 4:13pm October 01, 2024 11:19am Start: 05-20-2023 Insulin Detemi r U-100 (Levemir Flextouch U100 Insulin) 100 unit/mL (3 mL) insulin pen Active 22 UNIT SC DAILY May 20, 2023 3:13pm Start: 05-20-2023 Insulin Detemi r U-100 (Levemir Flextouch U100 Insulin) 100 unit/mL (3 mL) insulin pen Active 22 UNIT SC DAILY May 20, 2023 4:13pm Insulin lispro 100 UNIT/ML Solution (10 sources) End: 11-13-2024 inject 14 [IU] by subcutaneous injection at bedtime Insulin lispro 100 UNIT/ML Solution Inject 14 Units under the skin before meals & at bedtime. 11/13/2024 Discontinued inject 14 [IU] by rojas bcutaneous injection at bedtime Insulin lispro 100 UNIT/ML Solution Inject 14 Units under the skin before meals & at bedtime. Active INSULIN PEN NEEDLE (2 sources) PEN NEEDLES 16 31G X 8 MM [facility] PEN NEEDLE [id number] Jackie Vasquez LPN ipratropium bromide 0.042 mg/actuat metered dose nasal spray (12 sources) Anticholinergic Start: 04-07-2025 End: 05-18-2025 Ipratropium [place] 42 mcg (0.06 %) spray,non-aerosol Discontinued INTRANASAL April 07, 2025 12:00am May 18, 2025 2:55pm Start: 05-20-2023 End: 05-29-2023 Ipratropium [place] Disconti nued 2 SPRAY INTRANASAL EVERY 6 HOURS May 19, 2023 11:00pm May 29, 2023 2:32pm Start: 05-20-2023 End: 05-29-2023 Ipratropium [place] Disconti nued 2 SPRAY INTRANASAL EVERY 6 HOURS May 20, 2023 12:00am May 29, 2023 3:32pm Start: 05-20-2023 Ipratropium Br omide Active 2 SPRAY INTRANASAL EVERY 6 HOURS May 20, 2023 12:00am Ipratropium [place] 21 mcg (0.03 %) spray,non-aerosol (5 sources) Start: 05-20-2023 End: 05-29-2023 Ipratropium [place] 21 mcg (0.03 %) spray,non-aerosol Discontinued 2 NMA INTRANASAL EVERY 6 HOURS as needed May 20, 2023 12:00am May 29, 2023 3:32pm 24 hr isosorbide mononitrate 30 mg extended release oral tablet (20 sources) Nitrate Vasodilator Start: 01-19-2019 End: 04-17-2019 take 1 tablet by mouth once daily Isosorbide Mononitrate 30 MG tablet Discontinued 30 mg PO DAILY January 19, 2019 1:00am April 17, 2019 1:44pm ketorolac tromethamine 10 mg oral tablet (20 sources) Nonsteroidal Anti-inflammatory Drug, Cyclooxygenase Inhibitor Start: 12-24-2018 End: 12-26-2018 take 1 tablet by mouth every eight hours Ketorolac 10 MG tablet Discontinued 10 mg PO Q8H 6 2 0 December 24, 2018 1:00am December 25, 2018 1:00am December 26, 2018 1:09am LANCETS (2 sources) LANCETS MISC bandar ck BG bid LANCETS [id number] Jackie Vasquez LPN 200 actuat levalbuterol 0.045 mg/actuat metered dose inhaler (5 sources) beta2-Adrenergic Agonist Start: 11-26-2024 End: 02-20-2025 Levalbuterol Tartrate (Xopenex Hfa) 45 mcg/actuation HFA aerosol inhaler Discontinued 2 NMA INHALATION EVERY 6 HOURS 15 2 November 26, 2024 1:00am February 20, 2025 11:37am levoFLOXacin 500 mg oral tablet (20 sources) Quinolone Antimicrobial Start: 12-10-2018 End: 12-24-2018 Levofloxacin 500 MG tablet Discontinued 500 mg PO Q48H 4 December 10, 2018 1:00am December 24, 2018 10:28am next dose 12/12/2018 lisinopril 10 mg oral tablet (20 sources) Angiotensin Converting Enzyme Inhibitor Start: 10-28-2015 End: 01-08-2018 take 1 tablet by mouth once daily Lisinopril 10 MG tablet Discontinued 10 mg PO DAILY October 28, 2015 1:00am January 08, 2018 2:49pm BLOOD PRESSURE metFORMIN hydrochloride 1000 mg oral tablet (20 sources) Biguanide Start: 01-03-2018 End: 01-08-2018 take 1 tablet by mouth twice daily Metformin 1000 MG tablet Discontinued 1000 mg PO TWICE A DAY January 03, 2018 1:00am January 08, 2018 2:49pm DIABETES METFORMIN HCL 10 00 MG TABS bid METFORMIN HCL [id number] Jackie Vasquez LPN methylPREDNISolone 4 mg oral tablet (10 sources) Corticosteroid Start: 12-14-2024 End: 12-18-2024 take 1 tablet by mouth once Methylprednisolone (Medrol (Srinivas)) 4 mg tablets,dose pack Discontinued 0 PO per package directions 21 December 14, 2024 1:00am December 18, 2024 11:43am PO PER PKG DIR Start: 04-22-2024 End: 08-13-2024 take 1 tablet by mouth once Methylprednisolone (Medrol (Srinivas)) 4 mg tablets,dose pack Discontinued 0 PO per package directions 21 0 April 22, 2024 12:00am August 13, 2024 11:13am PO PER PKG DIR oxyCODONE hydrochloride 5 mg oral tablet (20 sources) Opioid Agonist Start: 12-24-2018 End: 12-26-2018 take 5-10 mg by mouth every four hours as needed for pain Oxycodone 5 MG tablet Discontinued 5 - 10 mg PO EVERY 4 HOURS NEEDED as needed for Severe Pain (6-10/10) 20 2 0 December 24, 2018 1:00am December 25, 2018 1:00am December 26, 2018 1:09am Pleurodynia Pleurodynia microencapsulated potassium chloride 20 meq extended release oral tablet (4 sources) Start: 05-04-2022 End: 09-17-2022 take 1 tablet by mouth once daily potassium chloride 20 MEQ Tab CR tablet Take 1 tablet by mouth daily. PCP/passenger representative will follow up future prescriptions for non-transplant medications. 90 tablet 0 05/04/2022 09/17/2022 Discontinued (Therapy completed) predniSONE 20 mg oral tablet (20 sources) Start: 04-07-2025 End: 05-18-2025 take 1 tablet by mouth twice daily Prednisone 20 mg tablet Discontinued 20 mg PO TWICE A DAY April 07, 2025 12:00am May 18, 2025 2:55pm Start: 05-20-2023 End: 12-18-2024 take 2 tablets by mouth once daily Prednisone 2.5 mg tablet Discontinued 5 mg PO DAILY May 20, 2023 4:16pm December 18, 2024 11:44am TRANSPLANT Start: 05-20-2023 take 5 mg by mouth once daily Prednisone Active 5 MG PO DAILY May 20, 2023 4:16pm Start: 09-17-2022 End: 03-16-2023 take 2 tablets by mouth once daily predniSONE 2.5 MG tablet Take 2 tablets by mouth daily. 60 tablet 5 09/17/2022 Active Start: 05-02-2022 End: 05-20-2023 take 7.5 mg by mouth once daily Prednisone Discontinue d 7.5 MG PO DAILY May 02, 2022 12:00am May 20, 2023 4:18pm Start: 04-05-2022 take 7.5 mg by mouth once marlo y Prednisone Active 7.5 MG PO DAILY April 05, 2022 2:18pm Start: 03-19-2022 End: 05-20-2023 take 3 tablets by mouth once daily Prednisone 2.5 mg tablet Discontinued 7.5 mg PO DAILY May 02, 2022 12:00am May 20, 2023 4:18pm TRANSPLANT Start: 03-02-2022 End: 03-19-2022 take 2 tablets by mouth once daily predniSONE 2.5 MG tablet Take 2 tablets by mouth daily. 180 tablet 3 03/02/2022 03/19/2022 Discontinued (Reorder) Start: 03-31-2021 take 3 tablets by mo uth once daily predniSONE 2.5 MG tablet Take 3 tablets by mouth daily. Obtain one year prescription at your next clinic appointment. 270 tablet 1 03/31/2021 Active Start: 05-21-2019 End: 04-05-2022 take 5 mg by mouth once daily Prednisone 10 mg tablet Discontinued 5 mg PO DAILY May 21, 2019 4:28pm April 05, 2022 2:19pm Start: 05-21-2019 End: 04-05-2022 take 5 mg by mouth once daily Prednisone Discontinued 5 MG PO DAILY May 21, 2019 4:28pm April 05, 2022 2:19pm Start: 02-04-2019 End: 05-21-2019 take 3 tablets by mouth once daily Prednisone 10 MG tablet Discontinued 30 mg PO DAILY February 04, 2019 12:00am May 21, 2019 4:29pm breathing Start: 02-04-2019 End: 05-21-2019 take 30 mg by mouth once daily Prednisone Discontinued 30 MG PO DAILY February 04, 2019 12:00am May 21, 2019 4:29pm Start: 01-19-2019 take 1 tablet by robe th once daily Prednisone 5 mg tablet Active 5 mg PO daily December 18, 2024 1:00am Start: 01-19-2019 End: 01-27-2019 take 3 tablets by mouth once daily Prednisone 20 MG tablet Discontinued 60 mg PO DAILY January 19, 2019 1:00am January 27, 2019 2:38pm Start: 01-19-2019 End: 01-27-2019 take 60 mg by mouth once daily Prednisone Discontinued 60 MG PO DAILY January 19, 2019 1:00am January 27, 2019 2:38pm Comment on above: Take 1 tablet by robe th once daily. sertraline 100 mg oral tablet (5 sources) Serotonin Reuptake Inhibitor Start: 04-06-20 End: 08-13-20 take 1 tablet by mouth once daily Sertraline 100 mg tablet Discontinued 100 mg PO daily April 06, 2024 12:00am August 13, 2024 11:15am simvastatin 20 mg oral tablet (20 sources) HMG-CoA Reductase Inhibitor Start: 09-24-20 End: 01-28-20 take 1 tablet by mouth once daily Simvastatin 20 MG tablet Discontinued 20 mg PO DAILY January 19, 2019 1:00am January 27, 2019 2:38pm Comment on above: once daily. tadalafil 20 mg oral tablet (5 sources) Phosphodiesterase 5 Inhibitor End: 07-03-20 CIALIS 20 MG TABS qd TADALAFIL [id number] Jackie Vasquez LPN torsemide 20 mg oral tablet (20 sources) Loop Diuretic Start: 04-08-20 End: 05-29-20 take 1 tablet by mouth three times daily Torsemide 20 mg tablet Discontinued 20 mg PO THREE TIMES A DAY May 20, 2023 4:14pm May 29, 2023 3:32pm FLUID Start: 04-08-2023 End: 12-18-2024 take 1 tablet by mouth twice daily Torsemide 20 mg tablet Discontinued 20 mg PO TWICE A DAY May 29, 2023 3:32pm December 18, 2024 11:45am FLUID Start: 05-02-2022 End: 05-20-2023 take 40 mg by mouth once daily Torsemide Discontinued 40 MG PO DAILY May 02, 2022 12:00am May 20, 2023 4:18pm Start: 06-27-2021 End: 09-24-2023 take 2 tablets by mouth once daily Torsemide 20 mg tablet Discontinued 40 mg PO DAILY May 02, 2022 12:00am May 20, 2023 4:18pm FLUID Start: 06-12-2021 take 3 tablets by mo [facility] once daily in the morning, then take 1 tablet by mouth once daily in the evening torsemide 20 MG tablet Take 3 tablets by mouth daily every morning AND 1 tablet every evening. 120 tablet 11 06/12/2021 Active Problems Active Problems Problem Classification Problem Date Documented Date Episodic/Chronic Acquired foot deformities (20 sources) Metatarsophalangeal joint stiff; Translations: [Other deformities of toe(s) (acquired), left foot] Episodic Acute bronchitis (5 sources) Acute bronchitis; Translations: [Acute bronchitis, unspecified] 04-01-2024 Episodic Allergic reactions (1 source) Solar degeneration; Translations: [Other skin changes due to chronic exposure to nonionizing radiation] Episodic Asthma (16 sources) Asthmatic bronchitis; Translations: [Unspecified asthma with (acute) exacerbation] Onset: 5 11-26-2024 Chronic Cardiac dysrhythmias (4 sources) Sinus bradycardia; Translations: [Bradycardia, unspecified] Episodic Chronic kidney disease (20 sources) End stage renal disease; Translations: [End stage renal disease] Onset: 8 01-05-2019 Chronic Chronic kidney disease (1 source) Chronic kidney disease; Translations: [Chronic kidney disease, stage 3b] Onset: 5 Chronic ulcer of skin (9 sources) Chronic ulcer of foot; Translations: [Non-pressure chronic ulcer of other part of left foot with fat layer exposed] Chronic Coagulation and hemorrhagic disorders (20 sources) Platelet count below reference range; Translations: [Thrombocytopenia, unspecified] Onset: 1 11-28-2020 Chronic Complication of device; implant or graft (20 sources) Dialysis finding; Translations: [Other specified complication of vascular prosthetic devices, implants and grafts, initial encounter] Onset: 0 11-16-2020 Chronic Congestive heart failure; nonhypertensive (4 sources) Chronic systolic heart failure; Translations: [Chronic systolic (congestive) heart failure] Chronic Coronary atherosclerosis and other heart disease (7 sources) Coronary arteriosclerosis; Translations: [Atherosclerotic heart disease of [place] coronary artery without angina pectoris] Onset: 5 Chronic Deficiency and other anemia (1 source) Iron deficiency anemia secondary to blood loss (chronic); Translations: [Iron deficiency anemia secondary to blood loss (chronic)] Onset: 8 Chronic Deficiency and other anemia (7 sources) Anemia due to blood loss; Translations: [Iron deficiency anemia secondary to blood loss (chronic)] Onset: 8 08-03-2018 Chronic Diabetes mellitus with complications (20 sources) Infection of foot due to diabetes mellitus; Translations: [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 other skin complications] Onset: 8 Resolved: 8 Chronic Diabetes mellitus without complication (20 sources) Type 2 diabetes mellitus; Translations: [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out complications] Onset: 7 07-08-2017 Chronic Disorders of lipid metabolism (20 sources) Hyperlipidemia; Translations: [Hyperlipidemia, unspecified] Onset: 9 01-05-2019 Chronic Essential hypertension (20 sources) Hypertensive disorder; Translations: [Essential (primary) hypertension] Onset: 7 07-08-2017 Chronic Genitourinary symptoms and ill-defined conditions (19 sources) Microalbuminuria; Translations: [Proteinuria, unspecified] 07-24-2023 Episodic Heart valve disorders (20 sources) Heart murmur; Translations: [Cardiac murmur, unspecified] Onset: 5 01-10-2023 Episodic Hypertension with complications and secondary hypertension (20 sources) Hypertensive heart disease without congestive heart failure; Translations: [Hypertensive heart disease without heart failure] Onset: 9 03-26-2019 Chronic Immunity disorders (20 sources) Common variable agammaglobulinemia; 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, unspecified] Onset: 9 03-24-2019 Chronic Lymphadenitis (4 sources) Lymphadenopathy; Translations: [Generalized enlarged lymph nodes] Episodic Neoplasms of unspecified nature or uncertain behavior (1 source) Neoplasm of uncertain behavior of skin; Translations: [Neoplasm of uncertain behavior of skin] Episodic Nonspecific chest pain (20 sources) Chest pain; Translations: [Chest pain, unspecified] Onset: 5 10-16-2020 Episodic Nutritional deficiencies (20 sources) Vitamin D deficiency; Translations: [Vitamin D deficiency, unspecified] Onset: 5 01-10-2023 Chronic Osteoporosis (20 sources) Osteoporosis; Translations: [Age-related osteoporosis without current pathological fracture] Onset: 5 02-13-2023 Chronic Other aftercare (4 sources) Transplant follow-up; Translations: [Encounter for aftercare following other organ transplant] Chronic Other aftercare (1 source) Long-term current use of immunosuppressive drug; Translations: [Other exhibitions curator (current) drug therapy] Episodic Other aftercare (3 sources) Taking high risk medication; Translations: [Other exhibitions curator (current) drug therapy] Episodic Other aftercare (1 source) 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; Translations: [nursing home (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] Onset: 5 Episodic Other and ill-defined heart disease (4 sources) Left ventricular hypertrophy; Translations: [Cardiomegaly] Chronic Other and unspecified benign neoplasm (1 source) Melanocytic nevus of trunk; Translations: [Melanocytic nevi of trunk] Episodic Other circulatory disease (20 sources) Antineutrophil cytoplasmic antibody positive vasculitis; 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, unspecified] Onset: 9 07-21-2020 Chronic Other circulatory disease (2 sources) H/O: heart failure; Translations: [Personal history of other diseases of the circulatory system] Episodic Other connective tissue disease (1 source) Swelling of left lower limb; Translations: [Other specified soft tissue disorders] Episodic Other endocrine disorders (19 sources) Hyperparathyroidism; Translations: [Hyperparathyroidism, unspecified] 01-28-2023 Chronic Other lower respiratory disease (20 sources) Pulmonary edema; Translations: [Chronic pulmonary edema] Onset: 9 02-05-2019 Chronic Other lower respiratory disease (2 sources) Dyspnea on exertion; Translations: [Other forms of dyspnea] Episodic Other lower respiratory disease (1 source) Cough; Translations: [Acute cough] 01-22-2025 Episodic Other lower respiratory disease (5 sources) Dyspnea; Translations: [Shortness of breath] 01-20-2025 Episodic Other lower respiratory disease (2 sources) Shortness of breath; Translations: [Shortness of breath] Onset: 5 Episodic Other nervous system disorders (2 sources) Skin sensation disturbance; Translations: [Unspecified disturbances of skin sensation] 09-19-2023 Episodic Other nutritional; endocrine; and metabolic disorders (20 sources) Obese class I; Translations: [Obesity, unspecified] Onset: 9 07-21-2020 Chronic Other nutritional; endocrine; and metabolic disorders (3 sources) Obesity; Translations: [Obesity, unspecified] Chronic Other nutritional; endocrine; and metabolic disorders (20 sources) Obesity, unspecified; Translations: [Obesity, unspecified] Onset: 5 Chronic Other nutritional; endocrine; and metabolic disorders (1 source) H/O: diabetes mellitus; Translations: [Personal history of other endocrine, nutritional and metabolic disease] Episodic Other nutritional; endocrine; and metabolic disorders (1 source) Personal history of other endocrine, nutritional and metabolic disease; Translations: [Personal history of other endocrine, metabolic, and immunity disorders] Episodic Other nutritional; endocrine; and metabolic disorders (20 sources) Body mass index 25-29 - overweight; Translations: [Overweight] 06-07-2022 Episodic Other nutritional; endocrine; and metabolic disorders (5 sources) Overweight; Translations: [Overweight] Episodic Other screening for suspected conditions (not mental disorders or infectious disease) (3 sources) Blood chemistry abnormal; Translations: [Abnormal finding of blood chemistry, unspecified] Episodic Other screening for suspected conditions (not mental disorders or infectious disease) (1 source) No current problems or disability 06-13-2017 Other skin disorders (1 source) Seborrheic keratosis; Translations: [Other seborrheic keratosis] Episodic Other skin disorders (1 source) Sebaceous gland hypertrophy; Translations: [Other specified follicular disorders] Episodic Other skin disorders (1 source) Eruption; Translations: [Rash and other nonspecific skin eruption] Episodic Angie-; endo-; and myocarditis; cardiomyopathy (except that caused by tuberculosis or sexually transmitted disease) (4 sources) Dilated cardiomyopathy; Translations: [Dilated cardiomyopathy] Chronic Peripheral and visceral atherosclerosis (3 sources) Peripheral vascular disease; Translations: [Peripheral vascular disease, unspecified] Chronic Pneumonia (except that caused by tuberculosis or sexually transmitted disease) (4 sources) Infective pneumonia; Translations: [Pneumonia, unspecified organism] Episodic Residual codes; unclassified (20 sources) Obstructive sleep apnea syndrome; Translations: [Obstructive sleep apnea (adult) (pediatric)] Onset: 9 11-10-2019 Chronic Residual codes; unclassified (20 sources) Awaiting transplantation of kidney; Translations: [Awaiting organ transplant status] Onset: 0 07-21-2020 Chronic Residual codes; unclassified (1 source) H/O: tissue/organ recipient; Translations: [Other transplanted organ and tissue status] 11-16-2023 Chronic Residual codes; unclassified (14 sources) Hypoxia; Translations: [Idiopathic sleep related nonobstructive alveolar hypoventilation] 11-26-2024 Chronic Residual codes; unclassified (1 source) Obstructive sleep apnea (adult) (pediatric); Translations: [Obstructive sleep apnea (adult) (pediatric)] Onset: 5 Chronic Residual codes; unclassified (1 source) Other general symptoms and signs; Translations: [Other general symptoms] Episodic Residual codes; unclassified (3 sources) History of immunosuppressive therapy; Translations: [Personal history of immunosupression therapy] Episodic Residual codes; unclassified (2 sources) Personal history of immunosupression therapy; Translations: [Personal history of immunosuppressive therapy] Episodic Respiratory failure; insufficiency; arrest (adult) (20 sources) [id number] respiratory failure; Translations: [Acute and chronic respiratory failure with hypoxia] Onset: 9 02-11-2019 Chronic Respiratory failure; insufficiency; arrest (adult) (8 sources) Acute respiratory failure; Translations: [Acute respiratory failure with hypoxia] Episodic Skin and subcutaneous tissue infections (20 sources) Cellulitis of lower limb; Translations: [Cellulitis of left lower limb] Episodic Systemic lupus erythematosus and connective tissue disorders (20 sources) Granulomatosis with polyangiitis; Translations: [Gee's granulomatosis with renal involvement] Onset: 9 07-21-2020 Chronic Thyroid disorders (20 sources) Hypothyroidism; Translations: [Hypothyroidism, unspecified] Onset: 8 Chronic Unclassified (1 source) Unknown / UNK(Unknown) Onset: 8 Unclassified (3 sources) New Patient Onset: 4 09-17-2024 Unclassified (3 sources) Access to Medication(s) Onset: 4 09-17-2024 Unclassified (3 sources) Safety: Avoid toxicity that would cause discontinuation Onset: 4 09-17-2024 Unclassified (3 sources) Identify and eliminate barriers to patient adherence Onset: 4 09-17-2024 Unclassified (3 sources) Ensure that patient is receiving therapeutic benefit Onset: 4 09-17-2024 Unclassified (3 sources) MyChart Onset: 4 09-17-2024 Unclassified (1 source) Antineutrophilic cytoplasmic antibody (ANCA) vasculitis; 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] Onset: 0 Viral infection (5 sources) Verruca vulgaris; Translations: [Other viral warts] 09-19-2023 Episodic Past or Other Problems Problem Classification Problem Date Documented Da te Episodic/Chronic Abdominal hernia (7 sources) Umbilical hernia; Translations: [Umbilical hernia without obstruction or gangrene] Onset: 2 08-06-2018 Episodic Acute posthemorrhagic anemia (8 sources) Acute posthemorrhagic anemia; Translations: [Acute posthemorrhagic anemia] Onset: 8 08-06-2018 Episodic Bacterial infection; unspecified site (1 source) Other specified bacterial agents as the cause of diseases classified elsewhere; Translations: [Other specified bacterial agents as the cause of diseases classified elsewhere] Onset: 5 Episodic Deficiency and other anemia (20 sources) Anemia; Translations: [Anemia, unspecified] Onset: 9 07-21-2020 Episodic Diabetes mellitus without complication (20 sources) Steroid-induced hyperglycemia; Translations: [Hyperglycemia, unspecified] Onset: 0 11-16-2020 Episodic Fever of unknown origin (2 sources) Fever; Translations: [Fever, unspecified] Onset: 5 01-22-2025 Episodic Fluid and electrolyte disorders (20 sources) Disorder of electrolytes; Translations: [Other disorders of electrolyte and fluid balance, not elsewhere classified] Onset: 9 01-05-2019 Episodic Gastrointestinal hemorrhage (7 sources) Melena; Translations: [Melena] Onset: 8 08-06-2018 Episodic Immunizations and screening for infectious disease (1 source) Encounter for immunization; Translations: [Encounter for immunization] Onset: 5 Episodic Other diseases of kidney and ureters (20 sources) Kidney disease; Translations: [Disorder of kidney and ureter, unspecified] Onset: 9 01-05-2019 Episodic Other gastrointestinal disorders (7 sources) Occult blood in stools; Translations: [Other fecal abnormalities] Onset: 8 08-06-2018 Episodic Other lower respiratory disease (20 sources) Hemorrhage from other sites in respiratory passages; Translations: [Diffuse pulmonary alveolar hemorrhage] Onset: 9 01-05-2019 Episodic Other lower respiratory disease (20 sources) Hemoptysis; Translations: [Hemoptysis] Onset: 9 12-26-2018 Episodic Other lower respiratory disease (6 sources) Hypoxia; Translations: [Hypoxemia] Onset: 8 Resolved: 8 08-06-2018 Episodic Other upper respiratory infections (9 sources) Bacterial upper respiratory infection; Translations: [Acute upper respiratory infection, unspecified] Onset: 5 02-20-2025 Episodic Sexually transmitted infections (not HIV or hepatitis) (20 sources) Congenital syphilitic osteochondritis; 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] Onset: 0 Episodic Thyroid disorders (2 sources) Disorder of thyroid gland; Translations: [Disorder of thyroid, unspecified] Onset: 7 07-08-2017 Episodic Unclassified (1 source) Antineutrophilic cytoplasmic antibody (ANCA) vasculitis; 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] Onset: 5 Results Test Name Value Interpretation Reference Range Facility ALP ALT Tanvir 06-14-2025 ALP [Catalytic activity/Vol] 63 U/L Normal 32-126 [facility] Comment on above: Performed By: #### E NZ3, BCR, CRP #### [facility] (DEFAULT) [address] [address] ALT [Catalytic activity/Vol] 12 U/L Normal 10-52 [facility] Comment on above: Performed By: #### E NZ3, BCR, CRP #### [facility] (DEFAULT) [address] [address] AST [Catalytic activity/Vol] 11 U/L Normal 10-39 [facility] Comment on above: Performed By: #### E NZ3, BCR, CRP #### [facility] (DEFAULT) [address] [address] ANTI NEUTROPHIL CYTOPLASMIC ANTIBODYon 06-14-2025 Neutrophil Cytoplasmic Antibody Negative Normal Negative [facility] Comment on above: Performed By: #### M PO, PR3AB, ANCA #### [facility] (DEFAULT) [address] [address] ANTI-PROTEINASE 3 ABon 06-14 Proteinase 3 Antibodies Negative Normal Negative [facility] Comment on above: Performed By: #### M PO, PR3AB, ANCA #### [facility] (DEFAULT) [address] [place] [address] BUN CREAon 06-14-2025 Creatinine [Mass/Vol] 1.92 mg/dL High 0.70-1.30 [facility] Comment on above: Performed By: #### E NZ3, BCR, CRP #### [facility] (DEFAULT) [address] [place] [address] GFR/1.73 sq M.predicted among non-blacks MDRD (S/P/Bld) [Vol rate/Area] 39 mL/min/{1.73_m2} Low >=60 [facility] Comment on above: Result Comment: Repo rted eGFR is based on the CKD-EPI 2020 equation using creatinine, age, and sex. Performed By: #### E NZ3, BCR, CRP #### [facility] (DEFAULT) [address] [place] [address] Urea nitrogen [Mass/Vol] 25 mg/dL Normal 7-25 [facility] Comment on above: Performed By: #### E NZ3, BCR, CRP #### [facility] (DEFAULT) [address] [place] [address] Urea nitrogen/Creatinine [Mass ratio] 13 mg/mg Normal [facility] Comment on above: Performed By: #### E NZ3, BCR, CRP #### [facility] (DEFAULT) [address] [place] [address] C REACTIVE PROTEINon 025 CRP [Mass/Vol] 16.18 mg/L High <10.00 [facility] Comment on above: Performed By: #### E NZ3, BCR, CRP #### [facility] (DEFAULT) [address] [place] [address] CBC AND ELECTRONIC DIFFon Basophils (Bld) [#/Vol] 0.07 10*3/uL Normal 0.00-0.09 [facility] Comment on above: Performed By: #### L [id number] #### [facility] (DEFAULT) [address] [address] Basophils/100 WBC (Bld) 0.5 % Normal [facility] Comment on above: Performed By: #### L [id number] #### [facility] (DEFAULT) [address] [address] DIFF STATUS Electronic Differential Normal [facility] Comment on above: Performed By: #### L [id number] #### [facility] (DEFAULT) [address] [address] Eosinophils (Bld) [#/Vol] 0.19 10*3/uL Normal 0.00-0.48 [facility] Comment on above: Performed By: #### L [id number] #### [facility] (DEFAULT) [address] [address] Eosinophils/100 WBC (Bld) 1.3 % Normal [facility] Comment on above: Performed By: #### L [id number] #### [facility] (DEFAULT) [address] [address] Hematocrit (Bld) [Volume fraction] 48.5 % Normal 39.6-48.8 [facility] Comment on above: Performed By: #### L [id number] #### [facility] (DEFAULT) [address] [address] Hemoglobin (Bld) [Mass/Vol] 14.7 g/dL Normal 13.4-16.8 [facility] Comment on above: Performed By: #### L [id number] #### [facility] (DEFAULT) [address] [address] Immature Grans % 1.0 % Normal [facility] Comment on above: Performed By: #### L [id number] #### [facility] (DEFAULT) [address] [place] [address] Immature Grans Absolute 0.15 K/uL High <=0.07 [facility] Comment on above: Performed By: #### L [id number] #### [facility] (DEFAULT) [address] [place] [address] Lymphocytes (Bld) [#/Vol] 1.19 10*3/uL Normal 0.83-3.57 [facility] Comment on above: Performed By: #### L [id number] #### [facility] (DEFAULT) [address] [place] [address] Lymphocytes/100 WBC (Bld) 8.0 % Normal [facility] Comment on above: Performed By: #### L [id number] #### [facility] (DEFAULT) [address] [place] [address] MCV (RBC) [Entitic vol] 86.9 fL Normal 79.0-94.5 [facility] Comment on above: Performed By: #### L [id number] #### [facility] (DEFAULT) [address] [place] [address] Mean Cell Hgb 26.3 pg Normal 26.1-33.3 [facility] Comment on above: Performed By: #### L [id number] #### [facility] (DEFAULT) [address] [place] [address] Mean Cell Hgb Conc 30.3 g/dL Low 31.9-36.5 [facility] Comment on above: Performed By: #### L [id number] #### [facility] (DEFAULT) [address] [place] [address] Monocytes (Bld) [#/Vol] 1.49 10*3/uL High 0.24-0.93 [facility] Comment on above: Performed By: #### L [id number] #### [facility] (DEFAULT) [address] [place] [address] Monocytes/100 WBC (Bld) 10.0 % Normal [facility] Comment on above: Performed By: #### L [id number] #### [facility] (DEFAULT) [address] [place] [address] Nucleated RBC 0.0 /100 WBC Normal <=0.2 [facility] Comment on above: Performed By: #### L [id number] #### [facility] (DEFAULT) [address] [place] [address] Platelet mean volume (Bld) [Entitic vol] 10.2 fL Normal 8.7-12.3 [facility] Comment on above: Performed By: #### L [id number] #### [facility] (DEFAULT) [address] [place] [address] Platelets (Bld) [#/Vol] 208 10*3/uL Normal 146-337 [facility] Comment on above: Performed By: #### L [id number] #### [facility] (DEFAULT) [address] [place] [address] RBC (Bld) [#/Vol] 5.58 10*6/uL Normal 4.38-5.83 [facility] Comment on above: Performed By: #### L [id number] #### [facility] (DEFAULT) [address] [place] [address] RBC Distribution 14.1 % Normal 10.9-14.3 [facility] Comment on above: Performed By: #### L [id number] #### [facility] (DEFAULT) [address] [place] [address] Segs + Bands Auto 79.2 % Normal [facility] Comment on above: Performed By: #### L [id number] #### [facility] (DEFAULT) [address] [place] [address] Segs + Bands,Absolute Auto 11.86 K/uL High 1.57-6.19 [facility] Comment on above: Performed By: #### L [id number] #### [facility] (DEFAULT) [address] [place] [address] WBC (Bld) [#/Vol] 14.95 10*3/uL High 3.73-10.10 [facility] Comment on above: Performed By: #### L [id number] #### [facility] (DEFAULT) [address] [place] [address] MYELOPEROXIDASE ANTIBODIESon 06-14-2025 Myeloperoxidase Antibodies Negative Normal Negative [facility] Comment on above: Performed By: #### M PO, PR3AB, ANCA #### [facility] (DEFAULT) [address] [place] [address] SEDIMENTATION RATE, AUTOMATE Don 06-14-2025 ESR Westergren 2 mm/hr Normal <20 [facility] Comment on above: Performed By: #### E SR #### [facility] (DEFAULT) [address] [place] [address] URINALYSISon 06-14-2025 Appearance (U) Clear Normal Clear [facility] Comment on above: Performed By: #### U RIN #### [facility] (DEFAULT) [address] [place] [address] Bacteria ABSENT Normal ABSENT [facility] Comment on above: Performed By: #### U RIN #### [facility] (DEFAULT) [address] [place] [address] Blood Urine Negative Normal Negative [facility] Comment on above: Performed By: #### U RIN #### [facility] (DEFAULT) [address] [place] [address] Color (U) Yellow Normal Yellow [facility] Comment on above: Performed By: #### U RIN #### [facility] (DEFAULT) [address] [place] [address] Glucose Ql (U) >=1000 mg/dL Abnormal Negative [facility] Comment on above: Performed By: #### U RIN #### [facility] (DEFAULT) [address] [place] [address] Ketones Ql (U) Negative Normal Negative [facility] Comment on above: Performed By: #### U RIN #### [facility] (DEFAULT) [address] [place] [address] Leukocyte esterase Test strip Ql (U) Negative Normal Negative [facility] Comment on above: Performed By: #### U RIN #### [facility] (DEFAULT) [address] [place] [address] Nitrites Urine Negative Normal Negative [facility] Comment on above: Performed By: #### U RIN #### [facility] (DEFAULT) [address] [place] [address] 26979 pH (U) 6.5 [pH] Normal 5.0-7.0 [facility] Comment on above: Performed By: #### U RIN #### [facility] (DEFAULT) [address] [place] [address] 77535 Protein Urine Trace Abnormal Negative [facility] Comment on above: Performed By: #### U RIN #### [facility] (DEFAULT) [address] [place] [address] 21085 RBC Urine 3-5 Abnormal 0-2 [facility] Comment on above: Performed By: #### U RIN #### [facility] (DEFAULT) [address] [place] [address] 26872 Specific [place] Urine 1.020 Normal 1.001-1.03 5 [facility] Comment on above: Performed By: #### U RIN #### [facility] (DEFAULT) [address] [place] [address] 12371 Squamous/Epithelial Cells, Urine 0-2/hpf Normal 0-2/hpf, 3-5/hpf = 1+ [facility] Comment on above: Performed By: #### U RIN #### [facility] (DEFAULT) [address] [place] [address] 35283 Urobilinogen Urine 0.2 E.U./dL Normal 0.2 E.U/dL, 1.0 E.U/dL [facility] Comment on above: Performed By: #### U RIN #### [facility] (DEFAULT) [address] [place] [address] 91264 WBC Urine 0 - 5 Normal 0 - 5 [facility] Comment on above: Performed By: #### U RIN #### [facility] (DEFAULT) [address] [place] [address] 67667 URINE PROTEIN/CREA RATIO, RA NDOMon 06-14-2025 Creatinine (U) [Mass/Vol] 84.51 mg/dL Normal [facility] Comment on above: Performed By: #### U PCR #### [facility] (DEFAULT) [address] [place] [address] 97332 Prot/Creat Ratio 0.284 mg/mg Normal [facility] Comment on above: Performed By: #### U PCR #### [facility] (DEFAULT) [address] [place] [address] 38265 Protein Ql (U) 24 mg/dL Normal [facility] Comment on above: Performed By: #### U PCR #### [facility] (DEFAULT) [address] [place] [address] 03213 Endocrinology Visit Reporton 05-24-2025 Endocrinology Visit Report [facility] [address] [place] [address]. [address] [place] [address] OFFICE VISIT Date of Service: 05/24/25 MR#: [id number] Acct: [id number] Name: ROBERT MCCRARY Rep #: [id number] : 1960 Provider: TAMEKA eng Age/Sex: 64/M Location: [facility] [place] Status: Signed Intake Vital Signs 02/11/25 11:45 04/07/25 06:06 05/18/25 13:53 05/24/25 14:05 Height 5 ft 10 in 5 ft 10 in 5 ft 10 in 5 ft 10 in Weight: 215 lb 217 lb BMI 30.8 31.1 BP 154/79 H 134/72 H Blood Pressure Location Rt brachial Lt brachial Position Sitting Sitting Respiration 20 H Pulse 67 60 Pulse Source Monitor Monitor Temp 97.5 F L Pulse Oximetry (%) 96 96 Oxygen Delivery Method room air room air Intake Visit Reasons: 3 M FU Chief Complaint: f/u diabetes Linen Aide Required: No Accompanied by: Self Is patient in pain?: No Allergies losartan Allergy (Severe, Verified 05/24/25 14:04) Hives epoetin beta (From Mircera) Adverse Reaction (Verified 05/24/25 14:04) back pain Medications ???Medication ???Instructions ???Recorded ???Confirmed ???Type levothyroxine 175 mcg tablet 175 mcg PO DAILY thyroid 10/15/20 05/24/25 History pantoprazole 40 mg tablet,delayed 40 mg PO DAILY reflux 10/15/20 History release calcitriol 0.25 mcg capsule 0.25 mcg PO DAILY bone health 03/2505/24/25 History hydralazine 25 mg tablet 25 mg PO BID blood pressure 05/24/25 History mycophenolate sodium 180 mg 360 mg PO BID antirejection 05/24/25 History tablet,delayed release amlodipine 10 mg tablet 10 mg PO DAILY BP 05/02/22 5 History carvedilol 12.5 mg tablet 12.5 mg PO BID HEART 05/02/2204/27 History tacrolimus 0.75 mg tablet,extended 0.75 mg PO DAILY TRANSPLANT 07/1605/24/25 History release 24 hr (Envarsus XR) blood sugar diagnostic (True #120 ea 05/14/22 05/24/25 Rx Metrix Glucose Test Strip) denosumab 60 mg/mL subcutaneous 60 mg subcut [id number] #1 mL 05/24/25 Rx syringe (Prolia) atorvastatin 40 mg tablet 40 mg PO QHS 05/20/23 05/24/25 His tory blood-glucose sensor ([employer] G7 #9 ea 09/16/23 05/24/25 Rx Sensor device) Humalog KwikPen Insulin 100 20 unit (0.2 mL) subcut TID #60 mL 09/29/24 05/24/25 Rx unit/mL subcutaneous (insulin lispro) insulin glargine 100 unit/mL (3 20 unit (0.2 mL) subcut QAM #18 mL 10/01/24 05/24/25 Rx mL) subcutaneous pen (Basaglar KwikPen U-100 Insulin) dapagliflozin propanediol 10 mg 10 mg PO DAILY #90 tabs 11/26/24 0 05/24/25 Rx tablet (Farxiga) citalopram 40 mg tablet 40 mg PO DAILY 12/18/24 05/24/25 H istory prednisone 5 mg tablet 5 mg PO QDAY 12/18/24 05/24/25 His tory pen needle, diabetic 32 gauge x #120 ea 01/18/25 05/24/25 Rx (BD Ultra-Fine Meaghan Pen Needle) semaglutide 2 mg/dose (8 mg/3 mL) 2 mg (0.75 mL) subcut QWEEK #3 mL 01/18/25 05/24/25 Rx subcutaneous pen injector (Ozempic) [facility] Medical History (Updated 05/24/25 @ 15:15 by Ami Contreras NP-John) Coronary artery calcification seen on CAT scan Asthmatic bronchitis with exacerbation Essential hypertension Hyperparathyroidism Vitamin D deficiency Anxiety Diabetes BiPAP (biphasic positive airway pressure) dependence Asthma Cellulitis of great toe, left Non-pressure chronic ulcer of other part of left foot with fat layer exposed Peripheral vascular disease, unspecified 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 foot ulcer Diabetic peripheral neuropathy Cellulitis of left lower limb History of immunosuppression therapy Kidney disease Sleep apnea CPAP (continuous positive airway pressure) dependence Congestive heart failure (CHF) Diabetic foot infection Obesity Chronic kidney disease Sinus bradycardia Chronic systolic (congestive) heart failure Dilated cardiomyopathy Left ventricular hypertrophy Gee's granulomatosis with renal involvement Cough with hemoptysis Acute respiratory failure with hypoxia Acute respiratory failure Diffuse pulmonary alveolar hemorrhage Hemoptysis Healthcare-associated pneumonia End stage renal disease on dialysis DAVID (obstructive sleep apnea) Problem with dialysis access Anemia Lymphadenopathy Hyperlipidemia Hypothyroidism Type II diabetes mellitus Surgical History History of kidney transplant S/P arteriovenous (AV) fistula repair Presence of surgically created arteriovenous shunt for hemodialysis S/P nasal surgery H/O hernia repair Family History Father CAD (coronary artery diseas (more content not included)... Normal [facility] Cardiology Visit Reporton Cardiology Visit Report [facility] [address] [place] [address] OFFICE VISIT Date of Service: 05/18/25 MR#: [id number] Acct: [id number] Name: ROBERT MCCRARY Rep #: [id number] : 1960 Provider: PADMINI Bernal Age/Sex: 64/M Location: [facility] Status: Signed HPI HPI History of Present Illness Details: 64-year-old man with a history of Gee's granulomatosis polyarteritis vasculitis and end-stage renal disease who was on dialysis and subsequently had a kidney transplant in June 2020. He also has a history of obstructive sleep apnea. He was noted to have a murmur and cardiology was asked to see him for further evaluation and management. Echocardiogram in 2022 demonstrated an ejection fraction of 60% with mild focal aortic valve calcification. Stress test in 2022 was negative for ischemia. His most recent renal profile in December 2022 demonstrated creatinine of 2.3. He is on statin carvedilol hydralazine and torsemide with his lipid profile demonstrating an LDL of 43. He had a CT scan done and coronary calcium was noted. He notes that he does have chest discomfort across his chest. It feels like reflux. He notes that this is more frequent since he is aware of his CT scan. He does have SOB with exertion. He feels that this could be worse than previous. He is fatigued. He does sometimes have edema. He does have some lightheadedness. Intake Vital Signs 04/07/25 06:06 05/18/25 13:53 Height 5 ft 10 in 5 ft 10 in Weight: 215 lb 221 lb BMI 30.8 31.7 BP 154/79 H 139/62 H Blood Pressure Location Rt brachial Lt brachial Position Sitting Sitting Respiration 20 H 18 Pulse 67 63 Pulse Source Monitor NIBP Temp 97.5 F L Temperature Source Temporal Artery Pulse Oximetry (%) 96 Oxygen Delivery Method room air Intake Visit Reasons: SEE NOTES Linen Aide Required: No Is patient in pain?: No Allergies losartan Allergy (Severe, Verified 05/18/25 14:53) Hives epoetin beta (From Mircera) Adverse Reaction (Verified 05/18/25 14:53) back pain Medications ???Medication ???Instructions ???Recorded ???Confirmed ???Type levothyroxine 175 mcg tablet 175 mcg PO DAILY thyroid 10/15/20 05/18/25 History pantoprazole 40 mg tablet,delayed 40 mg PO DAILY reflux 10/15/20 History release calcitriol 0.25 mcg capsule 0.25 mcg PO DAILY bone health 03/2505/18/25 History hydralazine 25 mg tablet 25 mg PO BID blood pressure 05/18/25 History mycophenolate sodium 180 mg 360 mg PO BID antirejection 05/18/25 History tablet,delayed release amlodipine 10 mg tablet 10 mg PO DAILY BP 05/02/22 5 History carvedilol 12.5 mg tablet 12.5 mg PO BID HEART 05/02/2204/26 History tacrolimus 0.75 mg tablet,extended 0.75 mg PO DAILY TRANSPLANT 07/1605/18/25 History release 24 hr (Envarsus XR) blood sugar diagnostic (True #120 ea 05/14/22 04/07/25 Rx Metrix Glucose Test Strip) denosumab 60 mg/mL subcutaneous 60 mg subcut [id number] #1 mL 05/18/25 Rx syringe (Prolia) atorvastatin 40 mg tablet 40 mg PO QHS 05/20/23 05/18/25 His tory blood-glucose sensor ([employer] G7 #9 ea 09/16/23 04/07/25 Rx Sensor device) Humalog KwikPen Insulin 100 20 unit (0.2 mL) subcut TID #60 mL 09/29/24 05/18/25 Rx unit/mL subcutaneous (insulin lispro) insulin glargine 100 unit/mL (3 20 unit (0.2 mL) subcut QAM #18 mL 10/01/24 05/18/25 Rx mL) subcutaneous pen (Basaglar KwikPen U-100 Insulin) dapagliflozin propanediol 10 mg 10 mg PO DAILY #90 tabs 11/26/24 0 05/18/25 Rx tablet (Farxiga) citalopram 40 mg tablet 40 mg PO DAILY 12/18/24 05/18/25 H istory prednisone 5 mg tablet 5 mg PO QDAY 12/18/24 05/18/25 His tory pen needle, diabetic 32 gauge x #120 ea 01/18/25 04/07/25 Rx (BD Ultra-Fine Meaghan Pen Needle) semaglutide 2 mg/dose (8 mg/3 mL) 2 mg (0.75 mL) subcut QWEEK #3 mL 01/18/25 05/18/25 Rx subcutaneous pen injector (Ozempic) Ejection fraction %: 60 Have you fallen in the past year?: No [facility] Medical History (Updated 05/18/25 @ 15:20 by Alysa Solomon PA, PA) Coronary artery calcification seen on CAT scan Asthmatic bronchitis with exacerbation Essential hypertension Hyperparathyroidism Vitamin D deficiency Anxiety Diabetes BiPAP (biphasic positive airway pressure) dependence Asthma Cellulitis of great toe, left Non-pressure chronic ulcer of other part of left foot with fat layer exposed Peripheral vascular disease, unspecified 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 During your visit today, we recorded the following information about you: Adwoa Reveles MA 05/05/2025 11:59 AM Signed Received alicia prescription of medical necessity for CPAP needs signed and fax back to [phone] Adwoa Reveles MA 05/07/2025 10:46 AM Signed Order has been fax back to [facility] along with electronically signed note Allergies As of Date: 05/05/2025 Noted Allergy Reaction LOSARTAN 11/11/2018 4 - Hives Date Reviewed: 01/22/2025 Reviewed by: Becki Piper MA - Fully Assessed Reason for Visit: Patient Update [1234] Cmt: [facility] CPAP Prescriptions as of 05/12/2025 - NOVOLOG FLEXPEN U-100 INSULIN 100 unit/mL (3 mL) INJECT 25 UNITS SUBCUTANEOUSLY THREE TIMES A DAY - OZEMPIC 2 mg/dose (8 mg/3 mL) pen injector INJECT 2 MG (0.75 ML) SUBCUTANEOUSLY EVERY WEEK - dulaglutide (TRULICITY) 4.5 mg/0.5 mL pen injector Inject 4.5 mg subcutaneously one time a week. - atorvastatin (LIPITOR) 40 mg tablet - calcitriol (ROCALTROL) 0.25 mcg capsule - carvedilol (COREG) 12.5 mg tablet Take 12.5 mg by mouth. - denosumab (PROLIA) 60 mg/mL Inject 60 mg subcutaneously. - mycophenolate sodium DR (MYFORTIC) 180 mg EC tablet - predniSONE (DELTASONE) 5 mg tablet Take 1 tablet by mouth once daily. - tacrolimus ER (ENVARSUS XR) 0.75 mg tablet Take 1 tablet by mouth once daily. - torsemide (DEMADEX) 20 mg tablet - CPAP/BIPAP/OTHER Supplies: Settings IPAP 16, EPAP 10, PS 6 cm H2O, suitable mask per pt preference, chin strap, head gear, humidity, tubing, lifetime supplies. G47.33 DAVID - citalopram (CELEXA) 40 mg tablet Take 40 mg by mouth once daily. - pantoprazole DR (PROTONIX) 40 mg tablet Take 40 mg by mouth once daily. - hydrALAZINE (APRESOLINE) 25 mg tablet Take 25 mg by mouth three times daily. - amLODIPine (NORVASC) 10 mg tablet Take 10 mg by mouth once daily. - SIMVASTATIN 20 mg tablet once daily. - SYNTHROID 150 mcg tablet 175 mcg once daily. Problem List As Of Date 05/05/2025 Noted Resolved Umbilical hernia without mention of obstruction*11/03/2012 Melena [K92.1] 08/02/2018 Acute blood loss anemia [D62] 08/02/2018 ESRD (end stage renal disease) (HCC) [N18.6] 08/02/2018 DM (diabetes mellitus), type 1 with neurologica*08/02/2018 09/03/2018 Essential hypertension [I10] 08/02/2018 Blood loss anemia [D50.0] 08/02/2018 Hypothyroidism [E03.9] 08/03/2018 Hypoxia [R09.02] 08/03/2018 08/06/2018 Positive fecal occult blood test [R19.5] 08/06/2018 Controlled type 2 diabetes mellitus without com*09/03/2018 DAVID (obstructive sleep apnea) [G47.33] 09/24/2019 Encounter Status:Closed by ADWOA REVELES on 05/12/25 Normal [facility] Anion gap in Serum or Plasma Ordered By: Marques Casanova on 05-04-2025 Anion gap [Moles/Vol] 14 mmol/L 04-08 [facility] BUN/creatinine ratioOrdered By: Marques Casanova on 05-04-2025 Urea nitrogen/Creatinine [Mass ratio] 12.8 mg/mg 09-13 [facility] Bilirubin, totalOrdered By: Marques Casanova on 05-04-2025 Bilirubin [Mass/Vol] 0.55 mg/dL Normal 0.00-1.30 [facility] Comment on above: Order Comment: Order Date: 05/04/25Order Info: [id number] - CMPOrder Info: [id number] - LIPIDOrder Info: [id number] - TSHOrder Info: [id number] - T4F Performed By: #### L 500.4050, L500.4100, L502.0500, L501.9520, L506.0400 ####[facility] [address] [place], [address] Calculated very low density lipoprotein (VLDL) cholesterol measurementOrdered By: Marques Casanova on 05-04-2025 Calculated very low density lipoprotein (VLDL) cholesterol measurement 32 mg/dL [facility] Carbon dioxide, total [Moles /volume] in Central venous bloodOrdered By: Marques Casanova on 05-04-2025 CO2 [Moles/Vol] 20.1 mmol/L Low 21.0-32.0 [facility] Comment on above: Order Comment: Order Date: 05/04/25Order Info: [id number] - CMPOrder Info: [id number] - LIPIDOrder Info: [id number] - TSHOrder Info: [id number] - T4F Performed By: #### L 500.4050, L500.4100, L502.0500, L501.9520, L506.0400 ####[facility] [address] [place], [address] Chloride assayOrdered By: Sarah Casanova on 05-04-2025 Chloride [Moles/Vol] 104 mmol/L Normal 98-108 [facility] Comment on above: Order Comment: Order Date: 05/04/25Order Info: [id number] - CMPOrder Info: [id number] - LIPIDOrder Info: 3 - TSHOrder Info: 4-7 - T4F Performed By: #### L 500.4050, L500.4100, L502.0500, L501.9520, L506.0400 ####[facility] [address] [place], [address] Comprehensive Metabolic Prof ilon 05-04-2025 ALK PHOS 68 U/L Normal 40-129 [facility] Comment on above: Order Comment: Order Date: 05/04/25Order Info: [id number] - CMPOrder Info: [id number] - LIPIDOrder Info: [id number] - TSHOrder Info: [id number] - T4F Performed By: #### L 500.4050, L500.4100, L502.0500, L501.9520, L506.0400 ####[facility] [address] [place], [address] BUN/CRE 12.8 RATIO Normal 10-20 [facility] Comment on above: Order Comment: Order Date: 05/04/25Order Info: [id number] - CMPOrder Info: [id number] - LIPIDOrder Info: 6-3 - TSHOrder Info: [id number] - T4F Performed By: #### L 500.4050, L500.4100, L502.0500, L501.9520, L506.0400 ####[facility] [address] [place], [address] GAP 14 Normal 5-15 [facility] Comment on above: Order Comment: Order Date: 05/04/25Order Info: 86-1 - CMPOrder Info: [id number] - LIPIDOrder Info: [id number] - TSHOrder Info: [id number] - T4F Performed By: #### L 500.4050, L500.4100, L502.0500, L501.9520, L506.0400 ####[facility] [address] [place], [address] Potassium [Moles/Vol] 3.7 mmol/L Normal 3.3-5.1 [facility] Comment on above: Order Comment: Order Date: 05/04/25Order Info: 86-1 - CMPOrder Info: [id number] - LIPIDOrder Info: 3 - TSHOrder Info: [id number] - T4F Performed By: #### L 500.4050, L500.4100, L502.0500, L501.9520, L506.0400 ####[facility] [address] [place], [address] T PROT 6.5 g/dL Normal 5.9-8.4 [facility] Comment on above: Order Comment: Order Date: 05/04/25Order Info: [id number] - CMPOrder Info: [id number] - LIPIDOrder Info: [id number] - TSHOrder Info: [id number] - T4F Performed By: #### L 500.4050, L500.4100, L502.0500, L501.9520, L506.0400 ####[facility] [address] [place], [address] Comprehensive Metabolic Prof ilOrdered By: Marques Casanova on 05-04-2025 AST [Catalytic activity/Vol] 17 U/L Normal <=37 [facility] Comment on above: Order Comment: Order Date: 05/04/25Order Info: [id number] - CMPOrder Info: - LIPIDOrder Info: [id number] - TSHOrder Info: [id number] T4F Performed By: #### L 500.4050, L500.4100, L502.0500, L501.9520, L506.0400 ####[facility] [address] [place], [place], [id number] Glomerular filtration rate ( GFR) estimation/1.73 sq m using serum, plasma, or whole bOrdered By: Marques Casanova on 05-04-2025 GFR/1.73 sq M.predicted among non-blacks MDRD (S/P/Bld) [Vol rate/Area] 39 mL/min/{1.73_m2} Low >60 [facility] Comment on above: mL/min/1.73m2 CKD-EP I Creatinine Equation (2020) Order Comment: Order Date: 05/04/25Order Info: [id number] - CMPOrder Info: - LIPIDOrder Info: [id number] - TSHOrder Info: [id number] T4F Result Comment: mL/m in/1.73m2 CKD-EPI Creatinine Equation (2020) Performed By: #### L 500.4050, L500.4100, L502.0500, L501.9520, L506.0400 ####[facility] [address] [place], [place], [id number] LDL calc ser/plasOrdered By: Marques Casanova on 05-04-2025 Cholesterol in LDL [Mass/Vol] 55 mg/dL Normal [facility] Comment on above: Xynzlocggs=923-301 m g/dL & Higher Bjvz=391 mg/dL or greater Order Comment: Order Date: 05/04/25Order Info: [id number] - CMPOrder Info: - LIPIDOrder Info: [id number] - TSHOrder Info: [id number] - T4F Result Comment: Bord ysmdtu=252-326 mg/dL Higher Ygfh=183 mg/dL or greater Performed By: #### L 500.4050, L500.4100, L502.0500, L501.9520, L506.0400 ####[facility] [address] [place], [address] Lipid Profileon 05-04-2025 CHOL:HDL 3.40 Normal [facility] Comment on above: Order Comment: Order Date: 05/04/25Order Info: [id number] - CMPOrder Info: [id number] - LIPIDOrder Info: [id number] - TSHOrder Info: [id number] - T4F Performed By: #### L 500.4050, L500.4100, L502.0500, L501.9520, L506.0400 ####[facility] [address] [place], [address] Cholesterol in VLDL [Mass/Vol] 32 mg/dL Normal 5-40 [facility] Comment on above: Order Comment: Order Date: 05/04/25Order Info: [id number] - CMPOrder Info: [id number] - LIPIDOrder Info: 6-3 - TSHOrder Info: 47 - T4F Performed By: #### L 500.4050, L500.4100, L502.0500, L501.9520, L506.0400 ####[facility] [address] [place], [address] Microalbumin,Random Urineon 05-04-2025 MICROALBUMIN,UR 66.1 mg/L Normal NO RANGE EST. [facility] Comment on above: Order Comment: Order Date: 05/04/25Order Info: [id number] - MIALB Performed By: #### L 500.4050, L500.4100, L502.0500, L501.9520, L506.0400 ####[facility] [address] [place], [address] Potassium measurement (mass/ volume)Ordered By: Marques Casanova on 05-04-2025 Potassium (Unsp spec) [Mass/Vol] 3.7 mmol/L 3.3-5.1 [facility] Screening total cholesterol/ high density lipoprotein (HDL) cholesterol ratioOrdered By: Marques Casanova on 05-04-2025 Cholesterol.total/Cho lesterol in HDL [Mass ratio] 3.40 {ratio} [facility] Serum creatinine measurement (mass/volume)Ordered By: Marques Casanova on 05-04-2025 Creatinine [Mass/Vol] 1.90 mg/dL High 0.70-1.20 [facility] Comment on above: Order Comment: Order Date: 05/04/25Order Info: [id number] - CMPOrder Info: [id number] - LIPIDOrder Info: 3 - TSHOrder Info: [id number] - T4F Performed By: #### L 500.4050, L500.4100, L502.0500, L501.9520, L506.0400 ####[facility] [address] [place], [place], [phone] Serum globulin measurementOr dered By: Marques Casanova on 05-04-2025 Globulin (S) [Mass/Vol] 2.5 g/dL Normal 2.2-4.2 [facility] Comment on above: Order Comment: Order Date: 05/04/25Order Info: [id number] - CMPOrder Info: [id number] - LIPIDOrder Info: 3 - TSHOrder Info: 7 - T4F Performed By: #### L 500.4050, L500.4100, L502.0500, L501.9520, L506.0400 ####[facility] [address] [place], [place], [id number] Serum glucose measurement (m ass/volume)Ordered By: Marques Casanova on 05-04-2025 Glucose [Mass/Vol] 175 mg/dL High 70-99 [facility] Comment on above: Order Comment: Order Date: 05/04/25Order Info: [id number] - CMPOrder Info: [id number] - LIPIDOrder Info: 3 - TSHOrder Info: 7 - T4F Performed By: #### L 500.4050, L500.4100, L502.0500, L501.9520, L506.0400 ####[facility] [address] [place], [address] Serum or plasma alanine mckinley otransferase (ALT) measurementOrdered By: Marques Casanova on 05-04-2025 ALT [Catalytic activity/Vol] 15 U/L Normal <=46 [facility] Comment on above: Order Comment: Order Date: 05/04/25Order Info: [id number] - CMPOrder Info: - LIPIDOrder Info: 3 - TSHOrder Info: 7 - T4F Performed By: #### L 500.4050, L500.4100, L502.0500, L501.9520, L506.0400 ####[facility] [address] [place], [address] Serum or plasma albumin ayana urement (mass/volume)Ordered By: Marques Casanova on 05-04-2025 Albumin [Mass/Vol] 4.0 g/dL Normal 3.4-4.8 [facility] Comment on above: Order Comment: Order Date: 05/04/25Order Info: [id number]- - CMPOrder Info: - LIPIDOrder Info: 3 - TSHOrder Info: 7 - T4F Performed By: #### L 500.4050, L500.4100, L502.0500, L501.9520, L506.0400 ####[facility] [address] [place], [address] Serum or plasma albumin/glob ulin mass ratioOrdered By: Marques Casanova on 05-04-2025 Albumin/Globulin [Mass ratio] 1.6 {ratio} Normal 0.9-2.4 [facility] Comment on above: Order Comment: Order Date: 05/04/25Order Info: [id number] - CMPOrder Info: [id number] - LIPIDOrder Info: [id number] - TSHOrder Info: [id number] - T4F Performed By: #### L 500.4050, L500.4100, L502.0500, L501.9520, L506.0400 ####[facility] [address] [place], [place], [address] Serum or plasma alkaline jenny sphatase measurementOrdered By: Marques Casanova on 05-04-2025 ALP [Catalytic activity/Vol] 68 U/L 40-129 [facility] Serum or plasma calcium ayana urement (mass/volume)Ordered By: Marques Casanova on 05-04-2025 Calcium [Mass/Vol] 9.7 mg/dL Normal 7.6-11.0 [facility] Comment on above: Order Comment: Order Date: 05/04/25Order Info: [id number] - CMPOrder Info: [id number] - LIPIDOrder Info: [id number] - TSHOrder Info: [id number] - T4F Performed By: #### L 500.4050, L500.4100, L502.0500, L501.9520, L506.0400 ####[facility] [facility] [address] [place], [place], [address] Serum or plasma cholesterol in HDL measurement (mass/volume)Ordered By: Marques Casanova on 05-04-2025 Cholesterol in HDL [Mass/Vol] 36 mg/dL Low [facility] Comment on above: National Cholesterol Education Program (NCEP) guidelines:<40 mg/dL: Low HDL-cholesterol (major risk factor for CHD)>= 60 mg/dL: High HDL-cholesterol (negative risk factor for CHD)HDL-cholesterol is affected by a number of factors, e.g. smoking, exercise, hormones, sex and age. Order Comment: Order Date: 05/04/25Order Info: [id number] - CMPOrder Info: [id number] - LIPIDOrder Info: [id number] - TSHOrder Info: [id number] - T4F Result Comment: aCridad onal Cholesterol Education Program (NCEP) guidelines: <40 mg/dL: Low HDL-cholesterol (major risk factor for CHD) >= 60 mg/dL: High HDL-cholesterol (negative risk factor for CHD) HDL-cholesterol is affected by a number of factors, e.g. smoking, exercise, hormones, sex and age. Performed By: #### L 500.4050, L500.4100, L502.0500, L501.9520, L506.0400 ####[facility] [address] [facility] [id number] Serum or plasma cholesterol measurement (mass/volume)Ordered By: Marques Casanova on 05-04-2025 Cholesterol [Mass/Vol] 123 mg/dL Normal <=200 [facility] Comment on above: Cholesterol level, D esirable <200 mg/dLBorderline high cholesterol 200-239 mg/dLHigh cholesterol >=240 mg/dLRecommendations of the NCEP Adult Treatment Panel for the following risk-cutoff thresholds for the [place] population. Order Comment: Order Date: 05/04/25Order Info: [id number] - CMPOrder Info: [id number] - LIPIDOrder Info: [id number] - TSHOrder Info: [id number] - T4F Result Comment: Chol esterol level, Desirable <200 mg/dL Borderline high cholesterol 200-239 mg/dL High cholesterol >=240 mg/dL Recommendations of the NCEP Adult Treatment Panel for the following risk-cutoff thresholds for the [place] population. Performed By: #### L 500.4050, L500.4100, L502.0500, L501.9520, L506.0400 ####[facility] [address] [place], [place], [id number] Serum or plasma urea nitroge n measurement (mass/volume)Ordered By: Marques Casanova on 05-04-2025 Urea nitrogen [Mass/Vol] 24 mg/dL High 4-19 [facility] Comment on above: Order Comment: Order Date: 05/04/25Order Info: [id number] - CMPOrder Info: [id number] - LIPIDOrder Info: [id number] - TSHOrder Info: 7 - T4F Performed By: #### L 500.4050, L500.4100, L502.0500, L501.9520, L506.0400 ####[facility] [address] [facility] [id number] Sodium levelOrdered By: Marques Casanova on 05-04-2025 Sodium [Moles/Vol] 138 mmol/L Normal 133-145 [facility] Comment on above: Order Comment: Order Date: 05/04/25Order Info: [id number] - CMPOrder Info: [id number] - LIPIDOrder Info: 3 - TSHOrder Info: [id number] - T4F Performed By: #### L 500.4050, L500.4100, L502.0500, L501.9520, L506.0400 ####[facility] [address] [place], [place], [id number] T4 Free Directon 05-04-2025 T4 FREE DIRECT 1.30 ng/dL Normal 0.76-1.46 [facility] Comment on above: Order Comment: Order Date: 05/04/25Order Info: 07 - CMPOrder Info: [id number] - LIPIDOrder Info: [id number] - TSHOrder Info: [id number] - T4F Performed By: #### L 500.4050, L500.4100, L502.0500, L501.9520, L506.0400 ####[facility] [address] [place], [place], [address] T4 freeOrdered By: Marques cartagena on 05-04-2025 Free T4 [Mass/Vol] 1.30 ng/dL 0.76-1.46 [facility] TSH DL <= 0.005 mIU/L QnOrde red By: Marques Casanova on 05-04-2025 TSH Qn 3.900 uIU/mL 0.300-4.20 0 [facility] Thyroid Stim Hormone (TSH)on 05-04-2025 TSH 3.900 uIU/mL Normal 0.300-4.20 0 [facility] Comment on above: Order Comment: Order Date: 05/04/25Order Info: [id number] - CMPOrder Info: [id number] - LIPIDOrder Info: [id number] - TSHOrder Info: [id number] - T4F Performed By: #### L 500.4050, L500.4100, L502.0500,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 cholesterol in HDL measurement (mass/volume)on 03-23-2025 Cholesterol in HDL [Mass/Vol] 34 mg/dL Low >40 [facility] Comment on above: National Cholesterol Education Program (NCEP) guidelines:<40 mg/dL: Low HDL-cholesterol (major risk factor for CHD)>= 60 mg/dL: High HDL-cholesterol (negative risk factor for CHD)HDL-cholesterol is affected by a number of factors, e.g. smoking, exercise, hormones, sex and age. Serum or plasma cholesterol measurement (mass/volume)on 03-23-2025 Cholesterol [Mass/Vol] 114 mg/dL <201 [facility] Comment on above: Cholesterol level, D esirable <200 mg/dLBorderline high cholesterol 200-239 mg/dLHigh cholesterol >=240 mg/dLRecommendations of the NCEP Adult Treatment Panel for the following risk-cutoff thresholds for the [place] population. Serum or plasma urea nitroge n measurement (mass/volume)on 03-23-2025 Urea nitrogen [Mass/Vol] 31 mg/dL High 4-19 [facility] Sodium levelon 03-23-2025 Sodium [Moles/Vol] 138 mmol/L 133-145 [facility] Total proteinon 03-23-2025 Protein [Mass/Vol] 6.3 g/dL 5.9-8.4 [facility] Triglycerides measurementon 03-23-2025 Triglyceride [Mass/Vol] 119 mg/dL <199 [facility] Comment on above: The drugs N-Acetylcy steine and Metamizole may falsely depress this assay. Normal range: <150 mg/dLBorderline High: 150-199 mg/dLHigh: 200-499 mg/dLVery High: >500 mg/dL Urine protein measurement (m ass/volume)on 03-23-2025 Protein (U) [Mass/Vol] 13.5 mg/dL High 0.0-12.0 [facility] Urine protein/creatinine mas s ratioon 03-23-2025 Protein/Creatinine (U) [Mass ratio] 123 mg/g CRE 0-200 [facility] White blood cell (WBC) count on 03-23-2025 WBC (Bld) [#/Vol] 15.1 10*3/uL High 4.4-11.0 [facility] Urgent Care Visit Reporton 0 3-29-2025 Urgent Care Visit Report [facility] [address], [address] [place] [address] OFFICE VISIT Date of Service: 02/20/25 MR#: [id number] Acct: [id number] Name: ROBERT MCCRARY Rep #: [id number] : 1960 Provider: TAMEKA Cotton Age/Sex: 64/M Location: [facility] Status: Signed Intake Vital Signs 02/11/25 11:45 02/20/25 11:39 Height 5 ft 10 in 5 ft 10 in Weight: 229 lb 234 lb BMI 32.8 33.5 BP 142/76 H 146/64 H Blood Pressure Location Rt brachial Rt brachial Position Sitting Sitting Respiration 18 Pulse 69 63 Pulse Source Monitor Monitor Temp 97.8 F Temp Source Temporal Pulse Oximetry (%) 97 97 Oxygen Delivery Method room air room air Intake Visit Reasons: Cough Chief Complaint: Ongoing Cough Is patient in pain?: No Allergies losartan Allergy (Severe, Verified 02/20/25 12:02) Hives epoetin beta (From Mircera) Adverse Reaction (Verified 02/20/25 12:02) back pain Medications ???Medication ???Instructions ???Recorded ???Confirmed ???Type levothyroxine 175 mcg tablet 175 mcg PO DAILY thyroid 10/15/20 02/20/25 History pantoprazole 40 mg tablet,delayed 40 mg PO DAILY reflux 10/15/20 History release calcitriol 0.25 mcg capsule 0.25 mcg PO DAILY bone health 03/2502/20/25 History hydralazine 25 mg tablet 25 mg PO BID blood pressure 02/20/25 History mycophenolate sodium 180 mg 360 mg PO BID antirejection 02/20/25 History tablet,delayed release amlodipine 10 mg tablet 10 mg PO DAILY BP 05/02/22 5 History carvedilol 12.5 mg tablet 12.5 mg PO BID HEART 05/02/2201/24 History tacrolimus 0.75 mg tablet,extended 0.75 mg PO DAILY TRANSPLANT 07/1602/20/25 History release 24 hr (Envarsus XR) blood sugar diagnostic (True #120 ea 05/14/22 02/20/25 Rx Metrix Glucose Test Strip) denosumab 60 mg/mL subcutaneous 60 mg subcut [id number] #1 mL 02/20/25 Rx syringe (Prolia) atorvastatin 40 mg tablet 40 mg PO QHS 05/20/23 02/20/25 His tory blood-glucose sensor (Dexcom G7 #9 ea 09/16/23 02/20/25 Rx Sensor device) Humalog KwikPen Insulin 100 20 unit (0.2 mL) subcut TID #60 mL 09/29/24 02/20/25 Rx unit/mL subcutaneous (insulin lispro) insulin glargine 100 unit/mL (3 20 unit (0.2 mL) subcut QAM #18 mL 10/01/24 02/20/25 Rx mL) subcutaneous pen (Basaglar KwikPen U-100 Insulin) dapagliflozin propanediol 10 mg 10 mg PO DAILY #90 tabs 11/26/24 0 02/20/25 Rx tablet (Farxiga) benzonatate 200 mg capsule 200 mg PO TID PRN cough #20 caps 0 12/14/24 02/20/25 Rx citalopram 40 mg tablet 40 mg PO DAILY 12/18/24 02/20/25 H istory prednisone 5 mg tablet 5 mg PO QDAY 12/18/24 02/20/25 His tory insulin aspart U-100 100 unit/mL 25 unit (0.25 mL) subcut TID #22.5 01/18/25 02/20/25 Rx (3 mL) subcutaneous pen (Novolog mL FlexPen U-100 Insulin aspart) pen needle, diabetic 32 gauge x #120 ea 01/18/25 02/20/25 Rx 32 (BD Ultra-Fine Meaghan Pen Needle) semaglutide 2 mg/dose (8 mg/3 mL) 2 mg (0.75 mL) subcut QWEEK #3 mL 01/18/25 02/20/25 Rx subcutaneous pen injector (Ozempic) amoxicillin 875 mg-potassium 1 tab PO BID 5 days #10 tabs 02/2002/20/25 Rx clavulanate 125 mg tablet PFSH Medical History Asthmatic bronchitis with exacerbation Essential hypertension Hyperparathyroidism Vitamin D deficiency Anxiety Diabetes BiPAP (biphasic positive airway pressure) dependence Asthma Cellulitis of great toe, left Non-pressure chronic ulcer of other part of left foot with fat layer exposed Peripheral vascular disease, unspecified 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 foot ulcer Diabetic peripheral neuropathy Cellulitis of left lower limb History of immunosuppression therapy Kidney disease Sleep apnea CPAP (continuous positive airway pressure) dependence Congestive heart failure (CHF) Diabetic foot infection Obesity Chronic kidney disease Sinus bradycardia Chronic systolic (congestive) heart failure Dilated cardiomyopathy Left ventricular hypertrophy Gee's granulomatosis with renal involvement Cough with hemoptysis Acute respiratory failure with hypoxia Acute respiratory failure Diffuse pulmonary alveolar hemorrhage Hemoptysis Healthcare-associated pneumonia End stage renal disease on dialysis DAVID (obstructive sleep apnea) Problem with dialysis access Anemia Lymphadenopathy Hyperlipidemia Hypothyroidism Type II diabetes mellitus Surgical History History of kidney transplant S/P arteriovenous (AV) fistula repair Presence (more content not included)... Normal [facility] Endocrinology Visit Reporton 02-11-2025 Endocrinology Visit Report [facility] [address] [place] [id number] OFFICE VISIT Date of Service: 02/11/25 MR#: [id number] Acct: [id number] Name: ROBERT MCCRARY Rep #: [id number] : 1960 Provider: TAMEKA eng Age/Sex: 64/M Location: [facility] Status: Signed Intake Vital Signs 11/12/24 11:41 01/20/25 08:40 02/11/25 11:45 Height 5 ft 10 in 5 ft 10 in 5 ft 10 in Weight: 229 lb BMI 32.8 BP 142/76 H Blood Pressure Location Rt brachial Position Sitting Pulse 69 Pulse Source Monitor Pulse Oximetry (%) 97 Oxygen Delivery Method room air Intake Visit Reasons: 3 M FU Chief Complaint: f/u diabetes Allergies losartan Allergy (Severe, Verified 02/11/25 11:48) Hives epoetin beta (From Mircera) Adverse Reaction (Verified 02/11/25 11:48) back pain Medications ???Medication ???Instructions ???Recorded ???Confirmed ???Type levothyroxine 175 mcg tablet 175 mcg PO DAILY thyroid 10/15/20 02/11/25 History pantoprazole 40 mg tablet,delayed 40 mg PO DAILY reflux 10/15/20 History release calcitriol 0.25 mcg capsule 0.25 mcg PO DAILY bone health 03/2502/11/25 History hydralazine 25 mg tablet 25 mg PO BID blood pressure 02/11/25 History mycophenolate sodium 180 mg 360 mg PO BID antirejection 02/11/25 History tablet,delayed release amlodipine 10 mg tablet 10 mg PO DAILY BP 05/02/22 5 History carvedilol 12.5 mg tablet 12.5 mg PO BID HEART 05/02/2201/24 History tacrolimus 0.75 mg tablet,extended 0.75 mg PO DAILY TRANSPLANT 07/1602/11/25 History release 24 hr (Envarsus XR) blood sugar diagnostic (True #120 ea 05/14/22 02/11/25 Rx Metrix Glucose Test Strip) denosumab 60 mg/mL subcutaneous 60 mg subcut [id number] #1 mL 02/11/25 Rx syringe (Prolia) atorvastatin 40 mg tablet 40 mg PO QHS 05/20/23 02/11/25 His tory blood-glucose sensor (Dexcom G7 #9 ea 09/16/23 02/11/25 Rx Sensor device) Humalog KwikPen Insulin 100 20 unit (0.2 mL) subcut TID #60 mL 09/29/24 02/11/25 Rx unit/mL subcutaneous (insulin lispro) insulin glargine 100 unit/mL (3 20 unit (0.2 mL) subcut QAM #18 mL 10/01/24 02/11/25 Rx mL) subcutaneous pen (Basaglar KwikPen U-100 Insulin) dapagliflozin propanediol 10 mg 10 mg PO DAILY #90 tabs 11/26/24 0 02/11/25 Rx tablet (Farxiga) levalbuterol tartrate 45 2 inh inhalation Q6H #15 grams 01/1902/11/25 Rx mcg/actuation aerosol inhaler (Xopenex HFA) benzonatate 200 mg capsule 200 mg PO TID PRN cough #20 caps 0 12/14/24 02/11/25 Rx citalopram 40 mg tablet 40 mg PO DAILY 12/18/24 02/11/25 H istory prednisone 5 mg tablet 5 mg PO QDAY 12/18/24 02/11/25 His tory insulin aspart U-100 100 unit/mL 25 unit (0.25 mL) subcut TID #22.5 01/18/25 02/11/25 Rx (3 mL) subcutaneous pen (Novolog mL FlexPen U-100 Insulin aspart) insulin degludec 100 unit/mL (3 20 unit (0.2 mL) subcut QHS #6 mL 01/18/25 02/11/25 Rx mL) subcutaneous pen (Tresiba FlexTouch U-100 insulin) pen needle, diabetic 32 gauge x #120 ea 01/18/25 02/11/25 Rx 5/32 (BD Ultra-Fine Meaghan Pen Needle) semaglutide 2 mg/dose (8 mg/3 mL) 2 mg (0.75 mL) subcut QWEEK #3 mL 01/18/25 02/11/25 Rx subcutaneous pen injector (Ozempic) 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 foot ulcer Diabetic peripheral neuropathy Cellulitis of left lower limb History of immunosuppression therapy Kidney disease Sleep apnea CPAP (continuous positive airway pressure) dependence Congestive heart failure (CHF) Diabetic foot infection Obesity Chronic kidney disease Sinus bradycardia Chronic systolic (congestive) heart failure Dilated cardiomyopathy Left ventricular hypertrophy Gee's granulomatosis with renal involvement Cough with hemoptysis Acute respiratory failure with hypoxia Acute respiratory failure Diffuse pulmonary alveolar hemorrhage Hemoptysis Healthcare-associated pneumonia End stage renal disease on dialysis DAVID (obstructive sleep apnea) Problem with dialysis access Anemia Lymphadenopathy Hyperlipidemia Hypothyroidism Type II diabetes mellitus Surgical History ... Normal [facility] Laboratory - Hematology and Cell countsOrdered By: Ami Contreras on 02-11-2025 HbA1c (Bld) [Mass fraction] 6.6 % High 4.2-6.3 [facility] Chest without Contraston Chest without Contrast [facility] Services [address] [place], [place] [address] Chest without Contrast MR#: [id number] Acct: [id number] Name: ROBERT MCCRARY Rep #: [id number] : 1960 M 64 From: Sae Wakefield MD PCP: Dr. Marques Casanova MD Status: REG CLI Study: Chest without Contrast Date of Exam: 02/10/25 Exam# [id number] Ordering Dr: Chikis Jacobson [employer]- C PROCEDURE: CHEST WITHOUT CONTRAST (CTCH), 02/10/2025 REASON FOR EXAM: SHORTNESS OF BREATH TECHNIQUE: CT chest was performed in prone positioning without IV contrast. Multiplanar reformats were generated. RADIATION DOSE SUMMARY: CTDlvol: 18.71 mGy DLP: 778.48 mGycm One or more dose reduction techniques were used (e.g., Automated exposure control, adjustment of the mA and/or kV according to patient size, use of iterative reconstruction technique). COMPARISON: No prior CT chest FINDINGS: Note that evaluation of the vasculature, kieran, and soft tissues is limited in the absence of IV contrast. Mild motion limitation. Heart/pericardium: Severe three-vessel coronary atherosclerosis and/or stents. Aortic and mild mitral annular calcification. Aorta: Mild/moderate calcific atherosclerosis. Pulmonary arteries: Mildly enlarged central pulmonary arteries which may indicate pulmonary arterial hypertension. Lymph nodes: No overt thoracic lymphadenopathy evident in the absence of IV contrast. Mild mediastinal lipomatosis. Lungs/pleura: Mild lingular and RIGHT middle lobe likely atelectasis/scarring. Suspected punctate calcified granuloma in the LEFT lower lobe. No significant architectural distortion, appreciable honeycombing, ground-glass abnormality, or reticulation. Airways: Unremarkable. No bronchiectasis Chest wall: Unremarkable. Upper abdomen: Cholelithiasis. Atrophic end-stage appearance of the kidneys. Musculoskeletal: Mild spondylosis. Numerous old LEFT rib fractures. CT/Chest without Contrast IMPRESSION: 1. No acute noncontrast findings. 2. Additional description as above. Reading Location: [facility] CC: Dr. Marques Casanova MD; Chikis Jacobson NP Member Of Congress: Signed Normal [facility] COVID & INFLUENZA A/B & RSV PCR, ROUTINEon 01-23-2025 FLUAV RNA GABINO+probe Ql (Unsp spec) Not detected Not Detected [facility] FLUBV RNA GABINO+probe Ql (Unsp spec) Not detected Not Detected [facility] Interpretation and review of laboratory results Normal [facility] RSV A RNA GABINO+probe Ql (Unsp spec) Not detected Not Detected [facility] SARS-CoV-2 (COVID-19) RNA GABINO+probe Ql (Unsp spec) Not detected See comment [facility] Reference Range (the expected result in uninfected individuals): Not detected [facility] CNOVon 01-22-2025 CNOV Office Visit (UCWSTR ) ROBERT MCCRARY ([id number]) 1960 M Date Time Provider Department 01/22/25 7:30 PM JARAD CHAMPION [facility] During your visit today, we recorded the following information about you: Temperature Pulse Respiration Blood pressure 101.1 degrees 90/minute 18/minute 152/75 Weight 102.5 kg Jarad Champion APRN.DEMURRAGE CLERK 01/23/2025 8:09 AM Signed Subjective HPI Nontoxic-appearing 64-year-old male presents urgent care chief complaint flulike symptoms. Duration symptoms today. Associated symptoms fever vomiting body aches chills fatigue. States symptoms started abruptly. 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 OTC medications none recently. States he did vomit 1 time today. No blood. Is able to stay hydrated. Denies any chest pain shortness of breath or hemoptysis. Risk factors renal transplant patient. On immunosuppressive medications. .Patient presents with: Flu Like Symptoms: Fever, vomiting, diarrhea, chills x today PAST MEDICAL HISTORY Diagnosis Date Anemia Depression DM (diabetes mellitus) (HCC) ESRD (end stage renal disease) (HCC) HTN (hypertension) Hyperlipidemia Hyperparathyroidism due to renal insufficiency (HCC) Hyperphosphatemia Hypothyroid Iron deficiency Vitamin D deficiency PAST SURGICAL HISTORY Procedure Laterality Date FISTULA HERNIA REPAIR HX 1983 inguinal RPR UMBILICAL HRNA 5 YRS/> REDUCIBLE 11/19/12 with mesh ALLERGIES Losartan MEDICATIONS atorvastatin (LIPITOR) 40 mg tablet calcitriol (ROCALTROL) 0.25 mcg capsule carvedilol (COREG) 12.5 mg tablet Take 12.5 mg by mouth. denosumab (PROLIA) 60 mg/mL Inject 60 mg subcutaneously. mycophenolate sodium DR (MYFORTIC) 180 mg EC tablet predniSONE (DELTASONE) 5 mg tablet Take 1 tablet by mouth once daily. tacrolimus ER (ENVARSUS XR) 0.75 mg tablet Take 1 tablet by mouth once daily. torsemide (DEMADEX) 20 mg tablet CPAP/BIPAP/OTHER Supplies: Settings IPAP 16, EPAP 10, PS 6 cm H2O, suitable mask per pt preference, chin strap, head gear, humidity, tubing, lifetime supplies. G47.33 DAVID citalopram (CELEXA) 40 mg tablet Take 40 mg by mouth once daily. pantoprazole DR (PROTONIX) 40 mg tablet Take 40 mg by mouth once daily. hydrALAZINE (APRESOLINE) 25 mg tablet Take 25 mg by mouth three times daily. amLODIPine (NORVASC) 10 mg tablet Take 10 mg by mouth once daily. SIMVASTATIN 20 mg tablet once daily. (Patient not taking: Reported on 06/17/2023) SYNTHROID 150 mcg tablet 175 mcg once daily. FAMILY HISTORY Problem Relation Age of Onset Alcohol/Drug Sister Stroke Father Heart Father Colon Cancer Father Diabetes Mother Hypertension Mother Arthritis Mother Social History Tobacco Use Smoking status: Never Smokeless tobacco: Current Types: Snuff Substance Use Topics Alcohol use: No Comment: 1/month Review of Systems Constitutional: Positive for chills, fever and malaise/fatigue. HENT: Negative for congestion, ear discharge, ear pain, sinus pain and sore throat. Eyes: Negative for blurred vision, pain, discharge and redness. Respiratory: Positive for cough. Negative for hemoptysis, sputum production, shortness of breath, wheezing and stridor. Cardiovascular: Negative for chest pain. Gastrointestinal: Positive for nausea and vomiting. Negative for abdominal pain and diarrhea. Musculoskeletal: Positive for myalgias. Skin: Negative for itching and rash. Neurological: Positive for headaches. Negative for dizziness. Objective Physical Exam Constitutional: General: He is not in acute distress. Appearance: He is not diaphoretic. HENT: Head: Normocephalic. Jaw: No trismus, tenderness, swelling or pain on movement. Nose: Congestion present. Mouth/Throat: Mouth: Mucous membranes are moist. Pharynx: Oropharynx is clear. Uvula midline. No pharyngeal swelling, oropharyngeal exudate, posterior oropharyngeal erythema or uvula swelling. Eyes: Conjunctiva/sclera: Conjunctivae normal. Pupils: Pupils are equal, round, and reactive to light. Cardiovascular: Rate and Rhythm: Normal rate and regular rhythm. Heart sounds: Normal heart sounds. Pulmonary: Effort: Pulmonary effort is normal. No tachypnea, accessory muscle usage or respiratory distress. Breath sounds: Normal breath sounds. No stridor. No wheezing, rhonchi or rales. Abdominal: General: There is no distension. Palpations: Abdomen is soft. Tenderness: There is no abdominal tenderness. There is no guarding or rebound. Musculoskeletal: Cervical back: Normal range of motion and neck supple. No edema, erythema, rigidity or tenderness. No pain with movement. Normal range of motion. Lymphadenopathy: Cervical: No cervical adenopathy. Skin: General: Skin is warm and dry. Neurological: Mental Status: He is alert and oriented to person, place, and time. ASSESSMENT/PLAN: 1. Fever, unspecified feve (more content not included)... [facility] Pulmonary Visit Reporton Pulmonary Visit Report [facility] Pulmonary Medicine of [place] [address] [place] [address] OFFICE VISIT Date of Service: 01/20/25 MR#: [id number] Acct: [id number] Name: ROBERT MCCRARY Rep #: [id number] : 1960 Provider: Chikis Jacobson NP Age/Sex: 64/M Location: [facility] Status: Signed Assessment and Plan Assessment and Plan (1) DAVID (obstructive sleep apnea): Status: Chronic Plan: Recent titration recommend alternative pressures and the addition of supplemental oxygen. The patient has adapted to this regimen without difficulty. He has felt improvement in regards to his daytime functioning since adding the supplemental oxygen. The apnea is well-controlled at current settings. I recommend obtaining a nocturnal oximetry prior to follow-up with the current settings of BiPAP 14 over 8 cm and 3 L supplemental oxygen blended into the device. (2) Asthmatic bronchitis with exacerbation: Status: Chronic Qualifiers: Asthma persistence: unspecified Asthma severity: unspecified severity Qualified Code(s): J45.901 - Unspecified asthma with (acute) exacerbation Plan: There is unexplained isolated worsening gas transfer abnormality. I do not suspect that this is because he had a bad day as the spirometry would also reflect worsening functioning if this was the case. The gas transfer abnormality could be due to granulomatosis with polyangiitis causing interstitial lung disease or the nocturnal hypoxemia that has now been treated with use of both BiPAP and supplemental oxygen blended into it. I have recommended a CT to look for interstitial disease and an echocardiogram to evaluate for the pulmonary artery pressure at this time. This was discussed with Dr. Prasad today. (3) Nocturnal hypoxemia: Status: Acute Plan: Repeat Nocturnal oximetry through vendor on Bipap 14/8 with 3L/min supplemental oxygen. Orders: Orders Chest without Contrast Today R06.02 - Shortness of breath Echo Complete W/ Contrast Today R06.02 - Shortness of breath Plan Details Follow Up: 3 Months (LMR) HPI HPI Comments Details: Patient is a 64-year-old male who presents today for follow-up. He has a history of sleep apnea. 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 He is ambulatory and currently on room air. He is a patient of Dr. Dumont and is referred by him to this practice. He had underwent a titration study from 2019 which recommended a starting bilevel therapy at 20/16 but even at that pressure the apnea was not controlled. He was set up with PAP therapy and then had a 30 pound weight loss so his pressure was reduced. During the study PLMD was also identified and the recommendation was to consider use of Requip. DOMINGO Galvin is managing [employer]. Alpine Guide Dr. Macy Damon through [facility] is managing [employer]. The patient is now using BiPAP 14 over 8 cm with 3 L supplemental oxygen blended into the device without significant air leak or snore. He is struggling with oral dryness despite using a nasal mask with a chinstrap. There are no concerns about the air pressure. He does feel rested on awakening. He believes that adding the supplemental oxygen has provided him with a significant benefit. The patient is reporting good compliance. He is reporting daytime hypersomnia is present. ESS is 10. He does experience some oral dryness and some morning headache. He reports that he is a shallow breather even during the daytime and will noticed that he has stopped breathing then will take a few breaths to catch up. The patient reports shortness of breath on exertion, productive cough, and wheeze is present at times. He denies chest pain chest tightness and palpitations. He denies fever, chills, body aches. He is a lifetime non-smoker. History of childhood asthma. He does completed doxycycline on Saturday for acute bronchitis. He was given albuterol but reports that he experiences jitteriness with using this inhaler. 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 He reports there was lung involvement in 2019 and had hemoptysis and was send to [facility]. Since last PFT he was sick in September, October, and November. DOMINGO Galvin is managing [employer]. Alpine Guide Dr. Macy Damon through [facility] is managing [employer]. The below testing is reviewed with patient today: December 25, 2024 he underwent a titration study which recommended a BiPAP of 14 over 8 cm with 3 L supplemental oxygen blended into the device. Compliance downloads from January 18, 2025 for the last 30 days shows 100% compliance with therapy. There are 2 reports available. 1 report shows use of the auto and the second report shows use of BiPAP at 14/8. The second report and current settings shows AHI is 1.3. Minimal air leak is identified. 6-minute walk test from December 21, 2024 shows significant exertional oxygen desa (more content not included)... [facility] 6 Minute Walk Teston 12-30- 025 6 Minute Walk Test y [facility] Pulmonary Services/Neurology [address] [place] [address] MR#: [id number] Acct: [id number] Name: ROBERT MCCRARY Rep #: [id number] : 1960 64 From: Gerson Prasad DO Referring Dr: Chikis Jacobson HORSE FARM MANAGER-C Status: REG CLI Location: PSN Date: Sex: M C PSN 6 Minute Walk Test 6 Minute Walk Test 6 Minute Walk Test: 6 Minute Walk Test PSN:6-Minute Walk Test Start: 12/21/24 12:41 Freq: Status: Active Protocol: [id number] Document 12/21/24 12:30 AEH (Rec: 12/21/24 12:45 AEH [id number]) 6 Minute Walk Test Date Performed 12/21/24 Time Performed 12:30 Height 5 ft 10 in Weight: 220 lb Weight in Pounds 220.[address]: Za Assistive device None used: Pre-test Oxygen Delivery Room Air Method Pulse Ox (%) 95 Pulse Rate (60-100 63 beats/min) Dyspnea Alexandr Scale ( 2 0-10) Exertion Alexandr Scale 6 (6-20) 1st minute Oxygen Delivery Room Air Method Pulse Ox (%) 93 Pulse Rate (60-100 73 beats/min) 2nd minute Oxygen Delivery Room Air Method Pulse Ox (%) 92 Pulse Rate (60-100 76 beats/min) 3rd minute Oxygen Delivery Room Air Method Pulse Ox (%) 93 Pulse Rate (60-100 77 beats/min) 4th minute Oxygen Delivery Room Air Method Pulse Ox (%) 93 Pulse Rate (60-100 78 beats/min) 5th minute Oxygen Delivery Room Air Method Pulse Ox (%) 91 Pulse Rate (60-100 78 beats/min) 6th minute Oxygen Delivery Room Air Method Pulse Ox (%) 92 Pulse Rate (60-100 77 beats/min) Dyspnea Alexandr Scale ( 3 0-10) Exertion Alexandr Scale 12 (6-20) Post-test Oxygen Delivery Room Air Method Pulse Ox (%) 95 Pulse Rate (60-100 68 beats/min) Full Laps Walked 16 Partial Lap, Number 7 of Tiles Walked Total Distance 951 Walked (ft) Interpretation Interpretation: The patient ambulated 951 feet over the course of 6 minutes beginning on room air without assistive devices. Pretesting oxygen saturation was noted to be 95% on room air. With ambulation, the amira oxygen saturation was 91%. This represents a significant exertional oxygen desaturation, consistent with a pulmonary limitation to exercise tolerance. Recommendations Recommendations: There is no indication for the use of supplemental oxygen at this time. However, close interval follow-up is recommended, given the degree of oxygen desaturation noted during the study. 12/30/247 Date Gerson Prasad DO CC: Date Dictated: 12/30/241326 Date Transcribed: 12/30/241326 Member Of Congress: Dr. Gerson Prasad DO Signed [facility] Cardiology Visit Reporton Cardiology Visit Report [facility] [address] [place] [address] OFFICE VISIT Date of Service: 12/18/24 MR#: [id number] Acct: [id number] Name: ROBERT MCCRARY Rep #: [id number] : 1960 Provider: PADMINI Bernal Age/Sex: 64/M Location: [facility] Status: Signed HPI HPI History of Present Illness Details: 64-year-old man with a history of Gee's granulomatosis polyarteritis vasculitis and end-stage renal disease who was on dialysis and subsequently had a kidney transplant in June 2020. He also has a history of obstructive sleep apnea. He was noted to have a murmur and cardiology was asked to see him for further evaluation and management. Echocardiogram in 2022 demonstrated an ejection fraction of 60% with mild focal aortic valve calcification. Stress test in 2022 was negative for ischemia. His most recent renal profile in December 2022 demonstrated creatinine of 2.3. He is on statin carvedilol hydralazine and torsemide with his lipid profile demonstrating an LDL of 43. From a cardiac standpoint he is doing well. He does not have any chest pain or shortness of breath. He does not any palpitations that he is aware of. He does not have any lightheadedness or dizziness. He does not have any lower extremity edema. Intake Vital Signs 04/06/24 11:13 11/26/24 08:17 12/18/24 10:38 Height 5 ft 10 in 5 ft 10 in 5 ft 10 in Weight: 229 lb BMI 32.8 BP 119/66 Blood Pressure Location Rt brachial Position Sitting Respiration 18 Pulse 59 L Pulse Source NIBP Intake Visit Reasons: 1 Y FU Linen Aide Required: No Accompanied by: Allergies losartan Allergy (Severe, Verified 12/18/24 10:41) Hives epoetin beta (From Mircera) Adverse Reaction (Verified 12/18/24 10:41) back pain Medications ???Medication ???Instructions ???Recorded ???Confirmed ???Type levothyroxine 175 mcg tablet 175 mcg PO DAILY thyroid 10/15/20 12/18/24 History pantoprazole 40 mg tablet,delayed 40 mg PO DAILY reflux 10/15/20 12/18/24 History release calcitriol 0.25 mcg capsule 0.25 mcg PO DAILY bone health 04/07/22 12/18/24 History hydralazine 25 mg tablet 25 mg PO BID blood pressure 04/07/22 12/18/24 History mycophenolate sodium 180 mg 360 mg PO BID antirejection 04/07/22 12/18/24 History tablet,delayed release amlodipine 10 mg tablet 10 mg PO DAILY BP 05/02/22 12/18/24 History carvedilol 12.5 mg tablet 12.5 mg PO BID HEART 05/02/22 12/18/24 History tacrolimus 0.75 mg tablet,extended 0.75 mg PO DAILY TRANSPLANT 05/02/22 12/18/24 History release 24 hr (Envarsus XR) blood sugar diagnostic (True #120 ea 05/14/22 12/14/24 Rx Metrix Glucose Test Strip) pen needle, diabetic 32 gauge x #400 ea 10/29/22 12/14/24 Rx /32 (BD Ultra-Fine Meaghan Pen Needle) denosumab 60 mg/mL subcutaneous 60 mg subcut [id number] #1 mL 02/13/23 12/18/24 Rx syringe (Prolia) atorvastatin 40 mg tablet 40 mg PO QHS 05/20/23 12/18/24 History blood-glucose sensor (Dexcom G7 #9 ea 09/16/23 12/14/24 Rx Sensor device) dulaglutide 4.5 mg/0.5 mL 4.5 mg subcut QWEEK 08/13/24 12/18/24 History subcutaneous pen injector (Trulicity) Humalog KwikPen Insulin 100 20 unit (0.2 mL) subcut TID #60 mL 09/29/24 12/18/24 Rx unit/mL subcutaneous (insulin lispro) insulin glargine 100 unit/mL (3 20 unit (0.2 mL) subcut QAM #18 mL 10/01/24 12/18/24 Rx mL) subcutaneous pen (Basaglar KwikPen U-100 Insulin) dapagliflozin propanediol 10 mg 10 mg PO DAILY #90 tabs 11/26/24 12/18/24 Rx tablet (Farxiga) levalbuterol tartrate 45 2 inh inhalation Q6H #15 grams 11/26/24 12/18/24 Rx mcg/actuation aerosol inhaler (Xopenex HFA) benzonatate 200 mg capsule 200 mg PO TID PRN cough #20 caps 12/14/24 12/18/24 Rx citalopram 40 mg tablet 40 mg PO DAILY 12/18/24 12/18/24 History prednisone 5 mg tablet 5 mg PO QDAY 12/18/24 12/18/24 History Ejection fraction %: 60 Have you fallen in the past year?: No PFSH Medical History Asthmatic bronchitis with exacerbation Essential hypertension Hyperparathyroidism Vitamin D deficiency Anxiety Diabetes BiPAP (biphasic positive airway pressure) dependence Asthma Cellulitis of great toe, left Non-pressure chronic ulcer of other part of left foot with fat layer exposed Peripheral vascular disease, unspecified 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 [facility] Laboratory - Microbiology an d Antimicrobial susceptibilityon 12-14-2024 SARS-CoV-2 (COVID-19) RNA GABINO+probe Ql (Unsp spec) Not detected [facility] No Panel Informationon 12-14 Influenza Types A,B Rapid (Clinic) Detected [facility] Urgent Care Visit Reporton 0 12-14-2024 Urgent Care Visit Report [facility] [address], [address] [place] [id number] OFFICE VISIT Date of Service: 12/14/24 MR#: [id number] Acct: [id number] Name: ROBERT MCCRARY Rep #: [id number] : 1960 Provider: PADMINI Gomez Age/Sex: 64/M Location: [facility] Status: Signed Intake Vital Signs 11/26/24 08:17 12/14/24 14:53 Height 5 ft 10 in Weight: 226 lb BMI 32.4 BP 149/85 H 118/62 Blood Pressure Location Rt brachial Rt brachial Position Sitting Sitting Respiration 20 H 12 Pulse 69 68 Pulse Source Monitor NIBP Temp 97.2 F L 98.2 F Temp Source Oral Pulse Oximetry (%) 96 95 Oxygen Delivery Method room air room air Intake Visit Reasons: FEVER/COUGH Chief Complaint: fever/cough Allergies losartan Allergy (Severe, Verified 12/14/24 14:54) Hives epoetin beta (From Mircera) Adverse Reaction (Verified 12/14/24 14:54) back pain Medications ???Medication ???Instructions ???Recorded ???Confirmed ???Type insulin lispro 100 unit/mL See Protocol SQ PRN PRN Blood sugar 05/29/19 12/14/24 History subcutaneous cartridge levothyroxine 175 mcg tablet 175 mcg PO DAILY thyroid 10/15/20 12/14/24 History pantoprazole 40 mg tablet,delayed 40 mg PO DAILY reflux 10/15/20 12/14/24 History release calcitriol 0.25 mcg capsule 0.25 mcg PO DAILY bone health 04/07/22 12/14/24 History hydralazine 25 mg tablet 25 mg PO BID blood pressure 04/07/22 12/14/24 History mycophenolate sodium 180 mg 360 mg PO BID antirejection 04/07/22 12/14/24 History tablet,delayed release amlodipine 10 mg tablet 10 mg PO DAILY BP 05/02/22 12/14/24 History carvedilol 12.5 mg tablet 12.5 mg PO BID HEART 05/02/22 12/14/24 History tacrolimus 0.75 mg tablet,extended 0.75 mg PO DAILY TRANSPLANT 05/02/22 12/14/24 History release 24 hr (Envarsus XR) blood sugar diagnostic (True #120 ea 05/14/22 12/14/24 Rx Metrix Glucose Test Strip) pen needle, diabetic 32 gauge x #400 ea 10/29/22 12/14/24 Rx 5/32 (BD Ultra-Fine Meaghan Pen Needle) denosumab 60 mg/mL subcutaneous 60 mg subcut [id number] #1 mL 02/13/23 12/14/24 Rx syringe (Prolia) atorvastatin 40 mg tablet 40 mg PO QHS 05/20/23 12/14/24 History prednisone 2.5 mg tablet 5 mg PO DAILY TRANSPLANT 05/20/23 12/14/24 History torsemide 20 mg tablet 20 mg PO BID FLUID 05/29/23 12/14/24 History blood-glucose sensor (Dexcom G7 #9 ea 09/16/23 12/14/24 Rx Sensor device) dulaglutide 4.5 mg/0.5 mL 4.5 mg subcut QWEEK 08/13/24 12/14/24 History subcutaneous pen injector (Trulicity) Humalog KwikPen Insulin 100 20 unit (0.2 mL) subcut TID #60 mL 09/29/24 12/14/24 Rx unit/mL subcutaneous (insulin lispro) insulin glargine 100 unit/mL (3 20 unit (0.2 mL) subcut QAM #18 mL 10/01/24 12/14/24 Rx mL) subcutaneous pen (Basaglar KwikPen U-100 Insulin) dapagliflozin propanediol 10 mg 10 mg PO DAILY #90 tabs 11/26/24 12/14/24 Rx tablet (Farxiga) levalbuterol tartrate 45 2 inh inhalation Q6H #15 grams 11/26/24 12/14/24 Rx mcg/actuation aerosol inhaler (Xopenex HFA) benzonatate 200 mg capsule 200 mg PO TID PRN cough #20 caps 12/14/24 12/14/24 Rx methylprednisolone 4 mg tablets in See Rx Instructions PO PER PKG DIR 12/14/24 12/14/24 Rx a dose pack (Medrol (Srinivas)) #21 tabs Have you fallen in the past year?: No Nurse's Note: Patient here for fever and cough x4 days. Ran venecia covid/flu test. 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 foot ulcer Diabetic peripheral neuropathy Cellulitis of left lower limb History of immunosuppression therapy Kidney disease Sleep apnea CPAP (continuous positive airway pressure) dependence Congestive heart failure (CHF) Diabetic foot infection Obesity Chronic kidney disease Sinus bradycardia Chronic systolic (congestive) heart failure Dilated cardiomyopathy Left ventricular hypertrophy Gee's granulomatosis with renal involvement Cough with hemoptysis Acute respiratory failure with hypoxia Acute respiratory failure Diffuse pulmonary alveolar hemorrhage Hemoptysis Healthcare-associated pneumonia End stage renal disease on dialysis DAVID (obstructive sleep apnea) Problem with dialysis access Anemia Lymphadenopathy Hyperlipidemia Hypothyroidism Type II diabetes mellitus S (more content not included)... [facility] Pulmonary Visit Reporton Pulmonary Visit Report [facility] Pulmonary Medicine of [address] [place] [address] OFFICE VISIT Date of Service: 11/26/24 MR#: [id number] Acct: [id number] Name: ROBERT MCCRARY Rep #: [id number] : 1960 Provider: Chikis Jacobson NP Age/Sex: 64/M Location: [facility] Status: Signed Assessment and Plan Assessment and Plan (1) DAVID (obstructive sleep apnea): Status: Chronic Comment: Titration from October 21, 2019 shows AHI 60.3 at 20/16 cm Plan: Although the compliance download indicates that the apnea is controlled I am concerned that this disease process is suboptimally treated. Nocturnal desaturations were seen on nocturnal oximetry from November 05, 2024. I have recommended a re-titration study, the patient may have developed central sleep apnea. From last titration study in 2019, AHI was not controlled even at the highest pressures. Since then there has been weight change as well. I have encouraged him to utilize A D ointment to the right nare. I have discussed proper care and hygiene of his PAP supplies. (2) Asthmatic bronchitis with exacerbation: Status: Chronic Qualifiers: Asthma persistence: unspecified Asthma severity: unspecified severity Qualified Code(s): J45.901 - Unspecified asthma with (acute) exacerbation Plan: The patient does encounter bronchitis on a yearly basis for which she has just completed a round of antibiotics. He has trouble with use of albuterol so I have recommended switching him to Xopenex. And have encouraged him to use this inhaler as prescribed. He does have some tendency for bronchospasm on today's exam with a slight wheeze on forced expiration but otherwise no wheezing throughout normal breathing. I have recommended a PFT and a 6-minute walk test. Given his history of Gee's granulomatosis I will also be comparing this pulmonary function test to the previous one from 2022 to determine if there has been a change in lung volumes and gas transfer. (3) Nocturnal hypoxemia: Status: Acute Plan: The nocturnal hypoxemia is currently unexplained. The patient indicates that he was not sick during this time of testing and that he did utilize his BiPAP device. Await retitration study and PFT/6- minute walk test. He does have adequate oxygenation on room air today. Orders: Orders Influenza Immunization Today Z23 - Encounter for immunization Polysomnography with PAP Today G47.33 - Obstructive sleep apnea (adult) (pediatric) PFT Complete - DLCO, Spirometry b/a bronchodilators, lung volumes 12/17/24 J45.901 - Unspecified asthma with (acute) exacerbation Simple Pulmonary Exercise Test 12/21/24 J45.901 - Unspecified asthma with (acute) exacerbation Medications: New levalbuterol tartrate 45 mcg/actuation (Xopenex HFA) 2 inhalations inhalation Q6H 15 grams 2RF Plan Details Follow Up: 6 to 8 weeks (LMR) HPI HPI Comments Details: This 64-year-old male patient presents today as a new patient for sleep apnea consultation. 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 He is ambulatory and currently on room air. His accompanies him to the visit today. He is a patient of Dr. Dumont and is referred by him to this practice. He had underwent a titration study from 2019 which recommended a starting bilevel therapy at 20/16 but even at that pressure the apnea was not controlled. He was set up with PAP therapy and then had a 30 pound weight loss so his pressure was reduced. During the study PLMD was also identified and the recommendation was to consider use of Requip. The patient is using VAuto without significant air leak or snore. He is struggling with oral dryness despite using a nasal mask with a chinstrap. There are no concerns about the air pressure. Sleep is not refreshing. The patient is reporting good compliance. He is reporting daytime hypersomnia is present. ESS is 10. He denies morning headaches. He reports that he is a shallow breather even during the daytime and will noticed that he has stopped breathing then will take a few breaths to catch up. He is not washing his mask. He does replace it frequently. The patient reports shortness of breath on exertion, productive cough, and wheeze is present at times. He denies chest pain chest tightness and palpitations. He denies fever, chills, body aches. He is a lifetime non-smoker. History of childhood asthma. He does completed doxycycline on Saturday for acute bronchitis. He was given albuterol but reports that he experiences jitteriness with using this inhaler. 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 The below testing is reviewed with patient today: Compliance download from November 23, 2024 for the last 3 days shows 100% compliance with therapy, using the device 8 teodoro (more content not included)... Normal [facility] Endocrinology Visit Reporton 11-12-2024 Endocrinology Visit Report [facility] [address] [place] [address]. [address] [place] [address] OFFICE VISIT Date of Service: 11/12/24 MR#: [id number] Acct: [id number] Name: ROBERT MCCRARY Rep #: [id number] : 1960 Provider: HORSE FARM MANAGER-C Ami Mendel rson Age/Sex: 64/M Location: [facility] Status: Signed Intake Vital Signs 08/13/24 11:05 11/12/24 11:41 Height 5 ft 10 in 5 ft 10 in Weight: 227 lb 2 oz 235 lb BMI 32.5 33.7 BP 149/73 H 159/83 H Blood Pressure Location Rt brachial Position Sitting Pulse 63 66 Pulse Source Monitor Pulse Oximetry (%) 95 95 Oxygen Delivery Method room air Intake Visit Reasons: 3 M FU/Prolia - B B Chief Complaint: Diabetes Is patient in pain?: No Allergies losartan Allergy (Severe, Verified 11/12/24 11:50) Hives epoetin beta (From Mircera) Adverse Reaction (Verified 11/12/24 11:50) back pain Medications ???Medication ???Instructions ???Recorded ???Confirmed ???Type insulin lispro 100 unit/mL See Protocol SQ PRN PRN Blood sugar 05/29/19 11/12/24 History subcutaneous cartridge levothyroxine 175 mcg tablet 175 mcg PO DAILY thyroid 10/15/20 11/12/24 History pantoprazole 40 mg tablet,delayed 40 mg PO DAILY reflux 10/15/20 11/12/24 History release calcitriol 0.25 mcg capsule 0.25 mcg PO DAILY bone health 04/07/22 11/12/24 History hydralazine 25 mg tablet 25 mg PO BID blood pressure 04/07/22 11/12/24 History mycophenolate sodium 180 mg 360 mg PO BID antirejection 04/07/22 11/12/24 History tablet,delayed release amlodipine 10 mg tablet 10 mg PO DAILY BP 05/02/22 11/12/24 History carvedilol 12.5 mg tablet 12.5 mg PO BID HEART 05/02/22 11/12/24 History tacrolimus 0.75 mg tablet,extended 0.75 mg PO DAILY TRANSPLANT 05/02/22 11/12/24 History release 24 hr (Envarsus XR) blood sugar diagnostic (True #120 ea 05/14/22 11/12/24 Rx Metrix Glucose Test Strip) pen needle, diabetic 32 gauge x #400 ea 10/29/22 11/12/24 Rx 5/32 (BD Ultra-Fine Meaghan Pen Needle) denosumab 60 mg/mL subcutaneous 60 mg subcut [id number] #1 mL 02/13/23 11/12/24 Rx syringe (Prolia) atorvastatin 40 mg tablet 40 mg PO QHS 05/20/23 11/12/24 History prednisone 2.5 mg tablet 5 mg PO DAILY TRANSPLANT 05/20/23 11/12/24 History torsemide 20 mg tablet 20 mg PO BID FLUID 05/29/23 11/12/24 History dapagliflozin propanediol 10 mg 10 mg PO DAILY #90 tabs 08/02/23 11/12/24 Rx tablet (Farxiga) blood-glucose sensor (Dexcom G7 #9 ea 09/16/23 11/12/24 Rx Sensor device) dulaglutide 4.5 mg/0.5 mL 4.5 mg subcut QWEEK 08/13/24 11/12/24 History subcutaneous pen injector (Trulicity) Humalog KwikPen Insulin 100 20 unit (0.2 mL) subcut TID #60 mL 09/29/24 11/12/24 Rx unit/mL subcutaneous (insulin lispro) insulin glargine 100 unit/mL (3 20 unit (0.2 mL) subcut QAM #18 mL 10/01/24 11/12/24 Rx mL) subcutaneous pen (Basaglar KwikPen U-100 Insulin) 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 foot ulcer Diabetic peripheral neuropathy Cellulitis of left lower limb History of immunosuppression therapy Kidney disease Sleep apnea CPAP (continuous positive airway pressure) dependence Congestive heart failure (CHF) Diabetic foot infection Obesity Chronic kidney disease Sinus bradycardia Chronic systolic (congestive) heart failure Dilated cardiomyopathy Left ventricular hypertrophy Gee's granulomatosis with renal involvement Cough with hemoptysis Acute respiratory failure with hypoxia Acute respiratory failure Diffuse pulmonary alveolar hemorrhage Hemoptysis Healthcare-associated pneumonia End stage renal disease on dialysis DAVID (obstructive sleep apnea) Problem with dialysis access Anemia Lymphadenopathy Hyperlipidemia Hypothyroidism Type II diabetes mellitus Surgical History History of kidney transplant S/P arteriovenous (AV) fistula repair Presence of surgically created arteriovenous shunt for hemodialysis S/P nasal surgery H/O hernia repair Family History Father CAD (coronary artery disease) Myocardial infarction, Onset Age: 56 Stented coronary artery Grandfather Heart disease Grandmother Heart disease Soci (more content not included)... Normal [facility] Laboratory - Hematology and Cell countson 11-12-2024 HbA1c (Bld) [Mass fraction] 7.3 % High 4.2-6.3 [facility] Absolute neutrophil countOrd ered By: Marques Casanova on 11-10-2024 Neutrophils (Bld) [#/Vol] 8.9 10*3/uL High 2.0-7.7 [facility] Albumin to globulin ratioOrd ered By: Marques Casanova on 11-10-2024 Albumin/Globulin [Mass ratio] 1.1 {ratio} 0.9-2.4 [facility] Basophil percentageOrdered B y: Marques Casanova on 11-10-2024 Basophils/100 WBC (Bld) 0.7 % 0-1 [facility] Bilirubin, totalOrdered By: Marques Casanova on 11-10-2024 Bilirubin [Mass/Vol] 0.60 mg/dL 0.20-1.00 [facility] Comment on above: For patients on eltr ombopag therapy, use of Dimension [place] TBIL is not recommended. Blood urea nitrogen (BUN)/cr eatinine ratioOrdered By: Marques Casanova on 11-10-2024 Urea nitrogen/Creatinine [Mass ratio] 8.8 mg/mg Low 10-20 [facility] CBC W/Diff, Automatedon 10-25 Absolute Lymph 0.76 X10 3/uL Low 0.83-4.51 [facility] Comment on above: Performed By: #### L 100.0100, L506.0400, L500.4050, L501.9520, L500.4100 ####[facility] [address] [place], [address] Absolute Neut 8.9 X10 3/uL High 2.0-7.7 [facility] Comment on above: Performed By: #### L 100.0100, L506.0400, L500.4050, L501.9520, L500.4100 ####[facility] [address] [place], [address] Basophils/100 WBC (Bld) 0.7 % Normal 0-1 [facility] Comment on above: Performed By: #### L 100.0100, L506.0400, L500.4050, L501.9520, L500.4100 ####[facility] [address] [place], [address] Eosinophils/100 WBC (Bld) 3.8 % Normal 0-5 [facility] Comment on above: Performed By: #### L 100.0100, L506.0400, L500.4050, L501.9520, L500.4100 ####[facility] [address] [place], [address] Erythrocyte distribution width (RBC) [Ratio] 14.3 % Normal 11.6-14.6 [facility] Comment on above: Performed By: #### L 100.0100, L506.0400, L500.4050, L501.9520, L500.4100 ####[facility] [address] [place], [address] Hematocrit (Bld) [Volume fraction] 49.1 % Normal 40-54 [facility] Comment on above: Performed By: #### L 100.0100, L506.0400, L500.4050, L501.9520, L500.4100 ####[facility] [address] [place], [address] Hemoglobin (Bld) [Mass/Vol] 15.2 g/dL Normal 13.0-16.5 [facility] Comment on above: Performed By: #### L 100.0100, L506.0400, L500.4050, L501.9520, L500.4100 ####[facility] [address] [place], [address] IG% 0.600 Normal 0.0-0.9 [facility] Comment on above: Result Comment: IG% - Immature Granulocytes (promyelocytes, myelocytes and metamyelocytes) > 1% indicates that a LEFT SHIFT is Present. Performed By: #### L 100.0100, L506.0400, L500.4050, L501.9520, L500.4100 ####[facility] [address] [place], [address] Lymphocytes/100 WBC (Bld) 6.6 % Low 19-41 [facility] Comment on above: Performed By: #### L 100.0100, L506.0400, L500.4050, L501.9520, L500.4100 ####[facility] [address] [place], [address] MCH (RBC) [Entitic mass] 26.6 pg Low 27.0-32.0 [facility] Comment on above: Performed By: #### L 100.0100, L506.0400, L500.4050, L501.9520, L500.4100 ####[facility] [address] [place], [address] MCHC (RBC) [Mass/Vol] 31.0 g/dL Low 32-36 [facility] Comment on above: Performed By: #### L 100.0100, L506.0400, L500.4050, L501.9520, L500.4100 ####[facility] [address] [place], [address] MCV (RBC) [Entitic vol] 86.0 fL Normal 80-94 [facility] Comment on above: Performed By: #### L 100.0100, L506.0400, L500.4050, L501.9520, L500.4100 ####[facility] [address] [place], [address] Monocytes/100 WBC (Bld) 11.4 % High 0-10 [facility] Comment on above: Performed By: #### L 100.0100, L506.0400, L500.4050, L501.9520, L500.4100 ####[facility] [address] [place], [address] Neutrophils/100 WBC (Bld) 76.9 % High 47-70 [facility] Comment on above: Performed By: #### L 100.0100, L506.0400, L500.4050, L501.9520, L500.4100 ####[facility] [address] [place], [address] Nucleated RBC (Bld) [#/Vol] 0 10*3/uL Normal 0-5 [facility] Comment on above: Performed By: #### L 100.0100, L506.0400, L500.4050, L501.9520, L500.4100 ####[facility] [address] [place], [address] Platelet mean volume (Bld) [Entitic vol] 10.5 fL Normal 6.2-12.0 [facility] Comment on above: Performed By: #### L 100.0100, L506.0400, L500.4050, L501.9520, L500.4100 ####[facility] [address] [place], [address] Platelets (Bld) [#/Vol] 192 10*3/uL Normal 150-450 [facility] Comment on above: Performed By: #### L 100.0100, L506.0400, L500.4050, L501.9520, L500.4100 ####[facility] [address] [place], [address] RBC (Bld) [#/Vol] 5.71 10*6/uL Normal 4.6-6.2 [facility] Comment on above: Performed By: #### L 100.0100, L506.0400, L500.4050, L501.9520, L500.4100 ####[facility] [address] [place], [address] RDW SD 44.6 fl High 35.1-43.9 [facility] Comment on above: Performed By: #### L 100.0100, L506.0400, L500.4050, L501.9520, L500.4100 ####[facility] [address] [place], [address] WBC (Bld) [#/Vol] 11.5 10*3/uL High 4.4-11.0 [facility] Comment on above: Performed By: #### L 100.0100, L506.0400, L500.4050, L501.9520, L500.4100 ####[facility] [address] [place], [address] Carbon dioxide measurementOr dered By: Marques Casanova on 11-10-2024 CO2 [Moles/Vol] 23.0 mmol/L 21.0-32.0 [facility] Chest PA and Lateralon 11-10 Chest PA and Lateral [facility] [address] [place] [address] Chest PA and Lateral MR#: [id number] Acct: [id number] Name: ROBERT MCCRARY Rep #: [id number] : 1960 M 64 From: Barry Casillas MD PCP: Dr. Marques Casanova MD Status: REG CLI Study: Chest PA and Lateral Date of Exam: 11/10/24 Exam# [id number] Ordering Dr: Marques Casanova MD :[id number] STUDY: X-RAY CHEST REASON FOR EXAM: Male, 64 years old. acute bronchitis TECHNIQUE: PA and lateral views of the chest. COMPARISON: 01/22/2023 FINDINGS: The lungs are clear and expanded. There is no demonstrated pleural abnormality. Normal size heart. Normal mediastinum and kieran. Normal visualized pulmonary arteries. Normal visualized aortic arch and descending thoracic aorta. Normal visualized thoracic spine. Healed fracture left clavicle. There is no demonstrated abnormality of the visualized soft tissue structures of the upper abdomen. RAD/Chest PA and Lateral IMPRESSION: No active disease. Electronically Signed: Barry Casillas MD at 11:25 EST , CC: Dr. Marques Casanova MD Member Of Congress: Signed Normal [facility] Chloride measurementOrdered By: Marques Casanova on 11-10-2024 Chloride [Moles/Vol] 110 mmol/L High 98-107 [facility] Comprehensive Metabolic Prof ilon 11-10-2024 Albumin [Mass/Vol] 3.4 g/dL Normal 3.2-5.0 [facility] Comment on above: Performed By: #### L 100.0100, L506.0400, L500.4050, L501.9520, L500.4100 ####[facility] [address] [place], [place], [address] Albumin/Globulin [Mass ratio] 1.1 {ratio} Normal 0.9-2.4 [facility] Comment on above: Performed By: #### L 100.0100, L506.0400, L500.4050, L501.9520, L500.4100 ####[facility] [address] [place], [address] ALK P 57 U/L Normal 45-117 [facility] Comment on above: Performed By: #### L 100.0100, L506.0400, L500.4050, L501.9520, L500.4100 ####[facility] [address] [place], [address] ALT [Catalytic activity/Vol] 28 U/L Normal 16-61 [facility] Comment on above: Performed By: #### L 100.0100, L506.0400, L500.4050, L501.9520, L500.4100 ####[facility] [address] [place], [address] AST [Catalytic activity/Vol] 15 U/L Normal 15-37 [facility] Comment on above: Performed By: #### L 100.0100, L506.0400, L500.4050, L501.9520, L500.4100 ####[facility] [address] [place], [address] Bilirubin [Mass/Vol] 0.60 mg/dL Normal 0.20-1.00 [facility] Comment on above: Result Comment: For patients on eltrombopag therapy, use of Dimension [place] TBIL is not recommended. Performed By: #### L 100.0100, L506.0400, L500.4050, L501.9520, L500.4100 ####[facility] [address] [place], [address] BUN/CRE 8.8 RATIO Low 10-20 [facility] Comment on above: Performed By: #### L 100.0100, L506.0400, L500.4050, L501.9520, L500.4100 ####[facility] [address] [place], [address] CA,Total 9.5 mg/dL Normal 8.5-10.1 [facility] Comment on above: Performed By: #### L 100.0100, L506.0400, L500.4050, L501.9520, L500.4100 ####[facility] [address] [place], [address] Chloride [Moles/Vol] 110 mmol/L High 98-107 [facility] Comment on above: Performed By: #### L 100.0100, L506.0400, L500.4050, L501.9520, L500.4100 ####[facility] [address] [place], [address] CO2 [Moles/Vol] 23.0 mmol/L Normal 21.0-32.0 [facility] Comment on above: Performed By: #### L 100.0100, L506.0400, L500.4050, L501.9520, L500.4100 ####[facility] [address] [place], [address] Creatinine [Mass/Vol] 2.05 mg/dL High 0.70-1.30 [facility] Comment on above: Result Comment: The validity of the calculated GFR GFRAA in patients over 70 years has not been determined. Clinical correlation is essential. Performed By: #### L 100.0100, L506.0400, L500.4050, L501.9520, L500.4100 ####[facility] [address] [place], [address] EST GFR - AA 43 mL/min Low >60 [facility] Comment on above: Result Comment: Afri can Slovak GFR Calc Performed By: #### L 100.0100, L506.0400, L500.4050, L501.9520, L500.4100 ####[facility] [address] [place], [address] GAP 8 Normal 5-15 [facility] Comment on above: Performed By: #### L 100.0100, L506.0400, L500.4050, L501.9520, L500.4100 ####[facility] [address] [place], [address] GFR/1.73 sq M.predicted among non-blacks MDRD (S/P/Bld) [Vol rate/Area] 35 mL/min/{1.73_m2} Low >60 [facility] Comment on above: Result Comment: Non- GFR Calc Performed By: #### L 100.0100, L506.0400, L500.4050, L501.9520, L500.4100 ####[facility] [address] [place], [address] Globulin (S) [Mass/Vol] 3.0 g/dL Normal 2.2-4.2 [facility] Comment on above: Performed By: #### L 100.0100, L506.0400, L500.4050, L501.9520, L500.4100 ####[facility] [address] [place], [address] Glucose [Mass/Vol] 101 mg/dL Normal 74-106 [facility] Comment on above: Result Comment: Fast ing Glucose result from 100 to 125 mg/dL suggests IMPAIRED HOMEOSTASIS per A.D.A. criteria. Performed By: #### L 100.0100, L506.0400, L500.4050, L501.9520, L500.4100 ####[facility] [address] [place], [address] Potassium [Moles/Vol] 3.7 mmol/L Normal 3.5-5.1 [facility] Comment on above: Performed By: #### L 100.0100, L506.0400, L500.4050, L501.9520, L500.4100 ####[facility] [address] [place], [address] Sodium [Moles/Vol] 141 mmol/L Normal 136-145 [facility] Comment on above: Performed By: #### L 100.0100, L506.0400, L500.4050, L501.9520, L500.4100 ####[facility] [address] [place], [address] T PROT 6.4 g/dL Normal 6.4-8.2 [facility] Comment on above: Performed By: #### L 100.0100, L506.0400, L500.4050, L501.9520, L500.4100 ####[facility] [address] [place], [address] Urea nitrogen [Mass/Vol] 18 mg/dL Normal 7-18 [facility] Comment on above: Performed By: #### L 100.0100, L506.0400, L500.4050, L501.9520, L500.4100 ####[facility] [address] [place], [address] Direct serum free thyroxine (FT4) measurementOrdered By: Marques Casanova on 11-10-2024 Free T4 [Mass/Vol] 1.24 ng/dL 0.76-1.46 [facility] Eosinophil percentageOrdered By: Marques Casanova on 11-10-2024 Eosinophils/100 WBC (Bld) 3.8 % 0-5 [facility] Erythrocyte distribution wid th ratioOrdered By: aMrques Casanova on 11-10-2024 Erythrocyte distribution width (RBC) [Ratio] 14.3 % 11.6-14.6 [facility] Erythrocyte distribution wid th standard deviationOrdered By: Marques Casanova on 11-10-2024 Erythrocyte distribution width (RBC) [Entitic vol] 44.6 fL High 35.1-43.9 [facility] Estimated glomerular filtrat ion rate (GFR) AmericanOrdered By: Marques Casanova on 11-10-2024 Estimated GFR (MDRD) Amer 43 mL/min Low >60 [facility] Comment on above: GFR Calc Glomerular filtration rate ( GFR) estimationOrdered By: Marques Casanova on 11-10-2024 Estimated GFR (MDRD) Non-Af Amer 35 mL/min Low >60 [facility] Comment on above: Non- GFR Calc Glucose measurementOrdered B y: Marques Casanova on 11-10-2024 Glucose [Mass/Vol] 101 mg/dL 74-106 [facility] Comment on above: Fasting Glucose resu lt from 100 to 125 mg/dL suggests IMPAIRED HOMEOSTASIS per A.D.A. criteria. Hematocrit Auto (Bld) [Volum e fraction]Ordered By: Marques Casanova on 11-10-2024 Hematocrit (Bld) [Volume fraction] 49.1 % 40-54 [facility] Hemoglobin measurementOrdere d By: Marques Casanova on 11-10-2024 Hemoglobin (Bld) [Mass/Vol] 15.2 g/dL 13.0-16.5 [facility] High density lipoprotein (HD L) measurementOrdered By: Marques Casanova on 11-10-2024 Cholesterol in HDL [Mass/Vol] 45 mg/dL >40 [facility] Comment on above: The drugs N-Acetylcy steine and Metamizole may falsely depress this assay. Reference Range HDL <40 mg/dL Low HDL Cholesterol HDL >or= 60 mg/dL High HDL Cholesterol Immature granulocytes/100 WB C Auto (Bld)Ordered By: Marques Casanova on 11-10-2024 Immature granulocytes/100 WBC (Bld) 0.600 % 0.0-0.9 [facility] Comment on above: IG% - Immature Granu locytes (promyelocytes, myelocytes and metamyelocytes) > 1% indicates that a LEFT SHIFT is Present. Laboratory - Chemistry and C hemistry - challengeOrdered By: Marques Casanova on 11-10-2024 AST [Catalytic activity/Vol] 15 U/L 15-37 [facility] Lipid Profileon 11-10-2024 Cholesterol [Mass/Vol] 146 mg/dL Normal 200 [facility] Comment on above: Result Comment: <200 mg/dL Desirable 200-240 mg/dL Borderline >240 mg/dL High Risk Performed By: #### L 100.0100, L506.0400, L500.4050, L501.9520, L500.4100 ####[facility] [address] [place], [address] Cholesterol in HDL [Mass/Vol] 45 mg/dL Normal [facility] Comment on above: Result Comment: The drugs N-Acetylcysteine and Metamizole may falsely depress this assay. Reference Range HDL <40 mg/dL Low HDL Cholesterol HDL >or= 60 mg/dL High HDL Cholesterol Performed By: #### L 100.0100, L506.0400, L500.4050, L501.9520, L500.4100 ####[facility] [address] [place], [address] Cholesterol in LDL [Mass/Vol] 78 mg/dL Normal 0-130 [facility] Comment on above: Performed By: #### L 100.0100, L506.0400, L500.4050, L501.9520, L500.4100 ####[facility] [address] [place], [address] Cholesterol in VLDL [Mass/Vol] 23 mg/dL Normal 5-40 [facility] Comment on above: Performed By: #### L 100.0100, L506.0400, L500.4050, L501.9520, L500.4100 ####[facility] [address] [place], [address] Triglyceride [Mass/Vol] 117 mg/dL Normal [facility] Comment on above: Result Comment: The drugs N-Acetylcysteine and Metamizole may falsely depress this assay. Serum Triglycerides Reference Interval Normal <150 mg/dL Borderline high 150 - 199 mg/dL High 200 - 499 mg/dL Very High > or = 500 mg/dL Performed By: #### L 100.0100, L506.0400, L500.4050, L501.9520, L500.4100 ####[facility] [address] [place], [address] Low density lipoprotein (LDL ) cholesterol measurementOrdered By: Marques Casanova on 11-10-2024 Cholesterol in LDL [Mass/Vol] 78 mg/dL 0-130 [facility] Lymphocytes Auto (Unsp spec) [#/Vol]Ordered By: Marques Casanova on 11-10-2024 Lymphocytes (Bld) [#/Vol] 0.76 10*3/uL Low 0.83-4.51 [facility] Lymphocytes/100 WBC Auto (Un sp spec)Ordered By: Marques Casanova on 11-10-2024 Lymphocytes/100 WBC (Bld) 6.6 % Low 19-41 [facility] MCV (mean corpuscular volume ) determinationOrdered By: Marques Casanova on 11-10-2024 MCV (RBC) [Entitic vol] 86.0 fL 80-94 [facility] Mean corpuscular hemoglobin (MCH) determinationOrdered By: Marques Casanova on 11-10-2024 MCH (RBC) [Entitic mass] 26.6 pg Low 27.0-32.0 [facility] Mean corpuscular hemoglobin concentration (MCHC) determinationOrdered By: Marques Casanova on 11-10-2024 MCHC (RBC) [Mass/Vol] 31.0 g/dL Low 32-36 [facility] Mean platelet volume determi nationOrdered By: Marques Casanova on 11-10-2024 Platelet mean volume (Bld) [Entitic vol] 10.5 fL 6.2-12.0 [facility] Monocyte percentageOrdered B y: Marques Casanova on 11-10-2024 Monocytes/100 WBC (Bld) 11.4 % High 0-10 [facility] Neutrophil percentageOrdered By: Marques Casanova on 11-10-2024 Neutrophils/100 WBC (Bld) 76.9 % High 47-70 [facility] Nucleated red blood cell per centageOrdered By: Marques Casanova on 11-10-2024 Nucleated RBC/100 WBC (Bld) [Ratio] 0 % 0-5 [facility] Platelet countOrdered By: Sarah Casanova on 11-10-2024 Platelets (Bld) [#/Vol] 192 10*3/uL 150-450 [facility] Potassium measurementOrdered By: Marques Casanova on 11-10-2024 Potassium [Moles/Vol] 3.7 mmol/L 3.5-5.1 [facility] RBC Auto (Bld) [#/Vol]Ordere d By: Marques Casanova on 11-10-2024 RBC (Bld) [#/Vol] 5.71 10*6/uL 4.6-6.2 [facility] Serum anion gap measurementO rdered By: Marques Casanova on 11-10-2024 Anion gap [Moles/Vol] 8 mmol/L 5-15 [facility] Serum globulin measurementOr dered By: Marques Casanova on 11-10-2024 Globulin (S) [Mass/Vol] 3.0 g/dL 2.2-4.2 [facility] Serum or plasma alanine mckinley otransferase (ALT) measurementOrdered By: Marques Casanova on 11-10-2024 ALT [Catalytic activity/Vol] 28 U/L 16-61 [facility] Serum or plasma albumin ayana urement (mass/volume)Ordered By: Marques Casanova on 11-10-2024 Albumin [Mass/Vol] 3.4 g/dL 3.2-5.0 [facility] Serum or plasma alkaline jenny sphatase measurementOrdered By: Marques Casanova on 11-10-2024 ALP [Catalytic activity/Vol] 57 U/L 45-117 [facility] Serum or plasma calcium ayana urement (mass/volume)Ordered By: Marques Casanova on 11-10-2024 Calcium [Mass/Vol] 9.5 mg/dL 8.5-10.1 [facility] Serum or plasma cholesterol measurement (mass/volume)Ordered By: Marques Casanova on 11-10-2024 Cholesterol [Mass/Vol] 146 mg/dL <200 [facility] Comment on above: <200 mg/dL Desirable 200-240 mg/dL Borderline >240 mg/dL High Risk Serum or plasma creatinine m easurement (mass/volume)Ordered By: Marques Casanova on 11-10-2024 Creatinine [Mass/Vol] 2.05 mg/dL High 0.70-1.30 [facility] Comment on above: The validity of the calculated GFR & GFRAA in patients over 70 years has not been determined. Clinical correlation is essential. Serum or plasma urea nitroge n measurement (mass/volume)Ordered By: Marques Casanova on 11-10-2024 Urea nitrogen [Mass/Vol] 18 mg/dL 7-18 [facility] Sodium levelOrdered By: Marques Casanova on 11-10-2024 Sodium [Moles/Vol] 141 mmol/L 136-145 [facility] T4 Free Directon 11-10-2024 T4 FREE DIRECT 1.24 ng/dL Normal 0.76-1.46 [facility] Comment on above: Performed By: #### L 100.0100, L506.0400, L500.4050, L501.9520, L500.4100 ####[facility] [address] [place], [address] TSH QnOrdered By: Marques londono on 11-10-2024 Thyroid Stimulating Hormone (TSH) 1.590 uIU/mL 0.358-3.74 0 [facility] Thyroid Stim Hormone (TSH)on 11-10-2024 TSH 1.590 uIU/mL Normal 0.358-3.74 0 [facility] Comment on above: Performed By: #### L 100.0100, L506.0400, L500.4050, L501.9520, L500.4100 ####[facility] [address] [place], [place], [id number] Total proteinOrdered By: Willy Casanova on 11-10-2024 Protein [Mass/Vol] 6.4 g/dL 6.4-8.2 [facility] Triglycerides measurementOrd ered By: Marques Casanova on 11-10-2024 Triglyceride [Mass/Vol] 117 mg/dL <199 [facility] Comment on above: The drugs N-Acetylcy steine and Metamizole may falsely depress this assay.Serum Triglycerides Reference Interval Normal <150 mg/dL Borderline high 150 - 199 mg/dL High 200 - 499 mg/dL Very High > or = 500 mg/dL Very low density lipoprotein (VLDL) cholesterol measurementOrdered By: Marques Casanova on 11-10-2024 VLDL Cholesterol 23 mg/dL 5-40 [facility] White blood cell (WBC) count Ordered By: Marques Casanova on 11-10-2024 WBC (Bld) [#/Vol] 11.5 10*3/uL High 4.4-11.0 [facility] Endocrinology Visit Reporton 08-13-2024 Endocrinology Visit Report [facility] [address] [place] [address] OFFICE VISIT Date of Service: 08/13/24 MR#: [id number] Acct: [id number] Name: ROBERT MCCRARY Rep #: [id number] : 1960 Provider: TAMEKA eng Age/Sex: 64/M Location: [facility] Status: Signed Intake Vital Signs 04/06/24 11:13 08/13/24 11:05 Height 5 ft 10 in 5 ft 10 in Weight: 227 lb 2 oz BMI 32.5 BP 149/73 H Pulse 63 Pulse Oximetry (%) 95 Intake Visit Reasons: 4 M FU Chief Complaint: Diabetes Accompanied by: Self Is patient in pain?: Yes (tailbone) Pain scale (1-10): 6 Allergies losartan Allergy (Severe, Verified 04/22/24 10:22) Hives epoetin beta (From Mircera) Adverse Reaction (Verified 04/22/24 10:22) back pain Medications ???Medication ???Instructions ???Recorded ???Confirmed ???Type insulin lispro 100 unit/mL See Protocol SQ PRN PRN Blood sugar 05/29/19 08/13/24 History subcutaneous cartridge levothyroxine 175 mcg tablet 175 mcg PO DAILY thyroid 10/15/20 08/13/24 History pantoprazole 40 mg tablet,delayed 40 mg PO DAILY reflux 10/15/20 08/13/24 History release calcitriol 0.25 mcg capsule 0.25 mcg PO DAILY bone health 04/07/22 08/13/24 History hydralazine 25 mg tablet 25 mg PO BID blood pressure 04/07/22 08/13/24 History mycophenolate sodium 180 mg 360 mg PO BID antirejection 04/07/22 08/13/24 History tablet,delayed release amlodipine 10 mg tablet 10 mg PO DAILY BP 05/02/22 08/13/24 History carvedilol 12.5 mg tablet 12.5 mg PO BID HEART 05/02/22 08/13/24 History tacrolimus 0.75 mg tablet,extended 0.75 mg PO DAILY TRANSPLANT 05/02/22 08/13/24 History release 24 hr (Envarsus XR) blood sugar diagnostic (True #120 ea 05/14/22 04/22/24 Rx Metrix Glucose Test Strip) pen needle, diabetic 32 gauge x #400 ea 10/29/22 04/22/24 Rx 5/32 (BD Ultra-Fine Meaghan Pen Needle) denosumab 60 mg/mL subcutaneous 60 mg subcut [id number] #1 mL 02/13/23 08/13/24 Rx syringe (Prolia) atorvastatin 40 mg tablet 40 mg PO QHS 05/20/23 08/13/24 History insulin detemir U-100 100 unit/mL 22 unit subcut DAILY diabetes 05/20/23 08/13/24 History (3 mL) subcutaneous pen (Levemir FlexTouch U-100 Insulin) prednisone 2.5 mg tablet 5 mg PO DAILY TRANSPLANT 05/20/23 08/13/24 History torsemide 20 mg tablet 20 mg PO BID FLUID 05/29/23 08/13/24 History dapagliflozin propanediol 10 mg 10 mg PO DAILY #90 tabs 08/02/23 08/13/24 Rx tablet (Farxiga) blood-glucose sensor (Dexcom G7 #9 ea 09/16/23 04/22/24 Rx Sensor device) dulaglutide 4.5 mg/0.5 mL 4.5 mg subcut QWEEK 08/13/24 08/13/24 History subcutaneous [facility] ([facility] Have you fallen in the past year?: Yes Nurse's Note: Tripped over dog 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 foot ulcer Diabetic peripheral neuropathy Cellulitis of left lower limb History of immunosuppression therapy Kidney disease Sleep apnea CPAP (continuous positive airway pressure) dependence Congestive heart failure (CHF) Diabetic foot infection Obesity Chronic kidney disease Sinus bradycardia Chronic systolic (congestive) heart failure Dilated cardiomyopathy Left ventricular hypertrophy Gee's granulomatosis with renal involvement Cough with hemoptysis Acute respiratory failure with hypoxia Acute respiratory failure Diffuse pulmonary alveolar hemorrhage Hemoptysis Healthcare-associated pneumonia End stage renal disease on dialysis DAVID (obstructive sleep apnea) Problem with dialysis access Anemia Lymphadenopathy Hyperlipidemia Hypothyroidism Type II diabetes mellitus Surgical History History of kidney transplant S/P arteriovenous (AV) fistula repair Presence of surgically created arteriovenous shunt for hemodialysis S/P nasal surgery H/O hernia repair Family History Father CAD (coronary artery disease) Myocardial infarction, Onset Age: 56 Stented coronary artery Grandfather Heart disease Grandmother Heart disease Social History Smoking Status: Former smoker alcohol intake: never HPI HPI Chief Complaint: Di (more content not included)... Normal [facility] Tacrolimus (Prograf)on 08-12 Tacrolimus (Bld) [Mass/Vol] 5.6 ng/mL Normal 2.0-20.0 [facility] Comment on above: Order Comment: Test( s) [id number] (FK506), Bloodwas developed and its performance characteristicsdetermined by [employer]. It has not been cleared or approvedby the Food and Drug Administration. Result Comment: Trou gh (immediately following transplant) 15.0 Trough (steady state, 2 weeks or more after transplant): 3.0 - 8.0 Performed by LC-MS/MS technology. Performed at: [address] [id number] Traffic Control Supervisor: Leticia Tee MD, Phone: [phone] Performed By: #### L 558.0642, [id number], D705.3454 ####[facility] [address] [place], [place], [phone]([phone] CBC W/Diff, Automatedon -11 30-2023 Absolute Lymph 0.98 X10 3/uL Normal 0.83-4.51 [facility] Comment on above: Order Comment: DR. Teresita SORTO ORDERED BMP,TACRO,CBCD,MG,CA,PHOS Order Date: 06/26/24 Order Info: 018- - CBCD Performed By: #### L 500.4050, L506.0400, L501.9985, L501.9520, L100.0100, L500.4100 #### [facility] [address] [place], [address] Absolute Neut 12.0 X10 3/uL High 2.0-7.7 [facility] Comment on above: Order Comment: DR. Teresita SORTO ORDERED BMP,TACRO,CBCD,MG,CA,PHOS Order Date: 06/26/24 Order Info: [id number] - CBCD Performed By: #### L 500.4050, L506.0400, L501.9985, L501.9520, L100.0100, L500.4100 #### [facility] [address] [place], [address] Basophils/100 WBC (Bld) 0.7 % Normal 0-1 [facility] Comment on above: Order Comment: DR. Teresita SORTO ORDERED BMP,TACRO,CBCD,MG,CA,PHOS Order Date: 06/26/24 Order Info: [id number] - CBCD Performed By: #### L 500.4050, L506.0400, L501.9985, L501.9520, L100.0100, L500.4100 #### [facility] [address] [place], [address] Eosinophils/100 WBC (Bld) 1.5 % Normal 0-5 [facility] Comment on above: Order Comment: DR. Teresita SORTO ORDERED BMP,TACRO,CBCD,MG,CA,PHOS Order Date: 06/26/24 Order Info: 183-11 - CBCD Performed By: #### L 500.4050, L506.0400, L501.9985, L501.9520, L100.0100, L500.4100 #### [facility] [address] [place], [address] Erythrocyte distribution width (RBC) [Ratio] 14.3 % Normal 11.6-14.6 [facility] Comment on above: Order Comment: DR. Teresita SORTO ORDERED BMP,TACRO,CBCD,MG,CA,PHOS Order Date: 06/26/24 Order Info: 183-11 - CBCD Performed By: #### L 500.4050, L506.0400, L501.9985, L501.9520, L100.0100, L500.4100 #### [facility] [address] [place], [place], [phone] ([phone] Hematocrit (Bld) [Volume fraction] 50.8 % Normal 40-54 [facility] Comment on above: Order Comment: DR. Teresita SORTO ORDERED BMP,TACRO,CBCD,MG,CA,PHOS Order Date: 06/26/24 Order Info: 183-11 - CBCD Performed By: #### L 500.4050, L506.0400, L501.9985, L501.9520, L100.0100, L500.4100 #### [facility] [address] [place], [address] Hemoglobin (Bld) [Mass/Vol] 15.7 g/dL Normal 13.0-16.5 [facility] Comment on above: Order Comment: DR. Teresita SORTO ORDERED BMP,TACRO,CBCD,MG,CA,PHOS Order Date: 06/26/24 Order Info: 183-11 - CBCD Performed By: #### L 500.4050, L506.0400, L501.9985, L501.9520, L100.0100, L500.4100 #### [facility] [address] [place], [address] IG% 0.900 Normal 0.0-0.9 [facility] Comment on above: Order Comment: DR. Teresita SORTO ORDERED BMP,TACRO,CBCD,MG,CA,PHOS Order Date: 06/26/24 Order Info: 183- - CBCD Result Comment: IG% - Immature Granulocytes (promyelocytes, myelocytes and metamyelocytes) > 1% indicates that a LEFT SHIFT is Present. Performed By: #### L 500.4050, L506.0400, L501.9985, L501.9520, L100.0100, L500.4100 #### [facility] [address] [place], [address] Lymphocytes/100 WBC (Bld) 6.7 % Low 19-41 [facility] Comment on above: Order Comment: DR. Teresita SORTO ORDERED BMP,TACRO,CBCD,MG,CA,PHOS Order Date: 06/26/24 Order Info: 01802-23 - CBCD Performed By: #### L 500.4050, L506.0400, L501.9985, L501.9520, L100.0100, L500.4100 #### [facility] [address] [place], [address] MCH (RBC) [Entitic mass] 26.5 pg Low 27.0-32.0 [facility] Comment on above: Order Comment: DR. Teresita SORTO ORDERED BMP,TACRO,CBCD,MG,CA,PHOS Order Date: 06/26/24 Order Info: 018- - CBCD Performed By: #### L 500.4050, L506.0400, L501.9985, L501.9520, L100.0100, L500.4100 #### [facility] [address] [place], [address] MCHC (RBC) [Mass/Vol] 30.9 g/dL Low 32-36 [facility] Comment on above: Order Comment: DR. Teresita SORTO ORDERED BMP,TACRO,CBCD,MG,CA,PHOS Order Date: 06/26/24 Order Info: 018- - CBCD Performed By: #### L 500.4050, L506.0400, L501.9985, L501.9520, L100.0100, L500.4100 #### [facility] [address] [place], [address] MCV (RBC) [Entitic vol] 85.7 fL Normal 80-94 [facility] Comment on above: Order Comment: DR. Teresita SORTO ORDERED BMP,TACRO,CBCD,MG,CA,PHOS Order Date: 06/26/24 Order Info: 01802-23 - CBCD Performed By: #### L 500.4050, L506.0400, L501.9985, L501.9520, L100.0100, L500.4100 #### [facility] [address] [place], [address] Monocytes/100 WBC (Bld) 8.7 % Normal 0-10 [facility] Comment on above: Order Comment: DR. Teresita SORTO ORDERED BMP,TACRO,CBCD,MG,CA,PHOS Order Date: 06/26/24 Order Info: 01802-23 - CBCD Performed By: #### L 500.4050, L506.0400, L501.9985, L501.9520, L100.0100, L500.4100 #### [facility] [address] [place], [address] Neutrophils/100 WBC (Bld) 81.5 % High 47-70 [facility] Comment on above: Order Comment: DR. Teresita SORTO ORDERED BMP,TACRO,CBCD,MG,CA,PHOS Order Date: 06/26/24 Order Info: 01802-23 - CBCD Performed By: #### L 500.4050, L506.0400, L501.9985, L501.9520, L100.0100, L500.4100 #### [facility] [address] [place], [address] Nucleated RBC (Bld) [#/Vol] 0 10*3/uL Normal 0-5 [facility] Comment on above: Order Comment: DR. Teresita SORTO ORDERED BMP,TACRO,CBCD,MG,CA,PHOS Order Date: 06/26/24 Order Info: 018- - CBCD Performed By: #### L 500.4050, L506.0400, L501.9985, L501.9520, L100.0100, L500.4100 #### [facility] [address] [place], [address] Platelet mean volume (Bld) [Entitic vol] 10.3 fL Normal 6.2-12.0 [facility] Comment on above: Order Comment: DR. Teresita SORTO ORDERED BMP,TACRO,CBCD,MG,CA,PHOS Order Date: 06/26/24 Order Info: 018- - CBCD Performed By: #### L 500.4050, L506.0400, L501.9985, L501.9520, L100.0100, L500.4100 #### [facility] [address] [place], [address] Platelets (Bld) [#/Vol] 208 10*3/uL Normal 150-450 [facility] Comment on above: Order Comment: DR. Teresita SORTO ORDERED BMP,TACRO,CBCD,MG,CA,PHOS Order Date: 06/26/24 Order Info: 018- - CBCD Performed By: #### L 500.4050, L506.0400, L501.9985, L501.9520, L100.0100, L500.4100 #### [facility] [address] [place], [address] RBC (Bld) [#/Vol] 5.93 10*6/uL Normal 4.6-6.2 [facility] Comment on above: Order Comment: DR. Teresita SORTO ORDERED BMP,TACRO,CBCD,MG,CA,PHOS Order Date: 06/26/24 Order Info: 01802-23 - CBCD Performed By: #### L 500.4050, L506.0400, L501.9985, L501.9520, L100.0100, L500.4100 #### [facility] [address] [place], [address] RDW SD 44.5 fl High 35.1-43.9 [facility] Comment on above: Order Comment: DR. Teresita SORTO ORDERED BMP,TACRO,CBCD,MG,CA,PHOS Order Date: 06/26/24 Order Info: 183-11 - CBCD Performed By: #### L 500.4050, L506.0400, L501.9985, L501.9520, L100.0100, L500.4100 #### [facility] [address] [place], [address] WBC (Bld) [#/Vol] 14.7 10*3/uL High 4.4-11.0 [facility] Comment on above: Order Comment: DR. Teresita SORTO ORDERED BMP,TACRO,CBCD,MG,CA,PHOS Order Date: 06/26/24 Order Info: 01802-23 - CBCD Performed By: #### L 500.4050, L506.0400, L501.9985, L501.9520, L100.0100, L500.4100 #### [facility] [address] [place], [address] Comprehensive Metabolic Prof ilon 08-10-2024 Albumin [Mass/Vol] 3.6 g/dL Normal 3.2-5.0 [facility] Comment on above: Order Comment: DR. Teresita SORTO ORDERED BMP,TACRO,CBCD,MG,CA,PHOS Order Date: 06/26/24 Order Info: 0786-1 - CMP Order Info: [id number] - LIPID Order Info: 3016-3 - TSH Order Info: 3024-7 - T4F Performed By: #### L 500.4050, L506.0400, L501.9985, L501.9520, L100.0100, L500.4100 #### [facility] [address] [place], [address] Albumin/Globulin [Mass ratio] 1.2 {ratio} Normal 0.9-2.4 [facility] Comment on above: Order Comment: DR. Teresita SORTO ORDERED BMP,TACRO,CBCD,MG,CA,PHOS Order Date: 06/26/24 Order Info: 86-1 - CMP Order Info: [id number] - LIPID Order Info: 3 - TSH Order Info: 7 - T4F Performed By: #### L 500.4050, L506.0400, L501.9985, L501.9520, L100.0100, L500.4100 #### [facility] [address] [place], [address] ALK P 66 U/L Normal 45-117 [facility] Comment on above: Order Comment: DR. Teresita SORTO ORDERED BMP,TACRO,CBCD,MG,CA,PHOS Order Date: 06/26/24 Order Info: 86-1 - CMP Order Info: [id number] - LIPID Order Info: [id number] - TSH Order Info: 3027 - T4F Performed By: #### L 500.4050, L506.0400, L501.9985, L501.9520, L100.0100, L500.4100 #### [facility] [address] [place], [address] ALT [Catalytic activity/Vol] 21 U/L Normal 16-61 [facility] Comment on above: Order Comment: DR. Teresita SORTO ORDERED BMP,TACRO,CBCD,MG,CA,PHOS Order Date: 06/26/24 Order Info: 86-1 - CMP Order Info: [id number] - LIPID Order Info: [id number] - TSH Order Info: 3024-7 - T4F Performed By: #### L 500.4050, L506.0400, L501.9985, L501.9520, L100.0100, L500.4100 #### [facility] [address] [place], [place], [phone] AST [Catalytic activity/Vol] 7 U/L Low 15-37 [facility] Comment on above: Order Comment: DR. Teresita SORTO ORDERED BMP,TACRO,CBCD,MG,CA,PHOS Order Date: 06/26/24 Order Info: 86-1 - CMP Order Info: [id number] - LIPID Order Info: 3013 - TSH Order Info: 3024-05 - T4F Performed By: #### L 500.4050, L506.0400, L501.9985, L501.9520, L100.0100, L500.4100 #### [facility] [address] [place], [address] Bilirubin [Mass/Vol] 0.80 mg/dL Normal 0.20-1.00 [facility] Comment on above: Order Comment: DR. Teresita SORTO ORDERED BMP,TACRO,CBCD,MG,CA,PHOS Order Date: 06/26/24 Order Info: 785-1 - CMP Order Info: [id number] - LIPID Order Info: 3 - TSH Order Info: 3027 - T4F Result Comment: For patients on eltrombopag therapy, use of Dimension [place] TBIL is not recommended. Performed By: #### L 500.4050, L506.0400, L501.9985, L501.9520, L100.0100, L500.4100 #### [facility] [address] [place], [address] BUN/CRE 14.4 RATIO Normal 10-20 [facility] Comment on above: Order Comment: DR. Teresita SORTO ORDERED BMP,TACRO,CBCD,MG,CA,PHOS Order Date: 06/26/24 Order Info: 86-1 - CMP Order Info: [id number] - LIPID Order Info: 3013 - TSH Order Info: 7 - T4F Performed By: #### L 500.4050, L506.0400, L501.9985, L501.9520, L100.0100, L500.4100 #### [facility] [address] [place], [address] CA,Total 9.8 mg/dL Normal 8.5-10.1 [facility] Comment on above: Order Comment: DR. Teresita SORTO ORDERED BMP,TACRO,CBCD,MG,CA,PHOS Order Date: 06/26/24 Order Info: 785- - CMP Order Info: - LIPID Order Info: [id number] - TSH Order Info: 7 - T4F Performed By: #### L 500.4050, L506.0400, L501.9985, L501.9520, L100.0100, L500.4100 #### [facility] [address] [place], [address] Chloride [Moles/Vol] 105 mmol/L Normal 98-107 [facility] Comment on above: Order Comment: DR. Teresita SORTO ORDERED BMP,TACRO,CBCD,MG,CA,PHOS Order Date: 06/26/24 Order Info: 785-11 - CMP Order Info: [id number] - LIPID Order Info: [id number] - TSH Order Info: 7 - T4F Performed By: #### L 500.4050, L506.0400, L501.9985, L501.9520, L100.0100, L500.4100 #### [facility] [address] [place], [address] CO2 [Moles/Vol] 23.0 mmol/L Normal 21.0-32.0 [facility] Comment on above: Order Comment: DR. Teresita SORTO ORDERED BMP,TACRO,CBCD,MG,CA,PHOS Order Date: 06/26/24 Order Info: 86-1 - CMP Order Info: [id number] - LIPID Order Info: [id number] - TSH Order Info: 3024-05 T4F Performed By: #### L 500.4050, L506.0400, L501.9985, L501.9520, L100.0100, L500.4100 #### [facility] [address] [place], [address] Creatinine [Mass/Vol] 2.02 mg/dL High 0.70-1.30 [facility] Comment on above: Order Comment: DR. Teresita SORTO ORDERED BMP,TACRO,CBCD,MG,CA,PHOS Order Date: 06/26/24 Order Info: 785-11 - CMP Order Info: [id number] - LIPID Order Info: 3016-01 TSH Order Info: 3024-05 T4F Result Comment: The validity of the calculated GFR GFRAA in patients over 70 years has not been determined. Clinical correlation is essential. Performed By: #### L 500.4050, L506.0400, L501.9985, L501.9520, L100.0100, L500.4100 #### [facility] [address] [place], [address] EST GFR - AA 43 mL/min Low >60 [facility] Comment on above: Order Comment: DR. Teresita SORTO ORDERED BMP,TACRO,CBCD,MG,CA,PHOS Order Date: 06/26/24 Order Info: 785-11 - CMP Order Info: [id number] - LIPID Order Info: [id number] - TSH Order Info: 3024-05 T4F Result Comment: Afri can Slovak GFR Calc Performed By: #### L 500.4050, L506.0400, L501.9985, L501.9520, L100.0100, L500.4100 #### [facility] [address] [place], [address] GAP 9 Normal 5-15 [facility] Comment on above: Order Comment: DR. Teresita SORTO ORDERED BMP,TACRO,CBCD,MG,CA,PHOS Order Date: 06/26/24 Order Info: 785-11 - CMP Order Info: [id number] - LIPID Order Info: 3 - TSH Order Info: 7 - T4F Performed By: #### L 500.4050, L506.0400, L501.9985, L501.9520, L100.0100, L500.4100 #### [facility] [address] [place], [address] GFR/1.73 sq M.predicted among non-blacks MDRD (S/P/Bld) [Vol rate/Area] 36 mL/min/{1.73_m2} Low >60 [facility] Comment on above: Order Comment: DR. Teresita SORTO ORDERED BMP,TACRO,CBCD,MG,CA,PHOS Order Date: 06/26/24 Order Info: 785-11 - CMP Order Info: - LIPID Order Info: [id number] - TSH Order Info: 3024-05 - T4F Result Comment: Non- GFR Calc Performed By: #### L 500.4050, L506.0400, L501.9985, L501.9520, L100.0100, L500.4100 #### [facility] [address] [place], [address] Globulin (S) [Mass/Vol] 2.9 g/dL Normal 2.2-4.2 [facility] Comment on above: Order Comment: DR. Teresita SORTO ORDERED BMP,TACRO,CBCD,MG,CA,PHOS Order Date: 06/26/24 Order Info: 785-11 - CMP Order Info: - LIPID Order Info: 3 - TSH Order Info: 3024-05 - T4F Performed By: #### L 500.4050, L506.0400, L501.9985, L501.9520, L100.0100, L500.4100 #### [facility] [address] [place], [address] Glucose [Mass/Vol] 125 mg/dL High 74-106 [facility] Comment on above: Order Comment: DR. Teresita SORTO ORDERED BMP,TACRO,CBCD,MG,CA,PHOS Order Date: 06/26/24 Order Info: 785-11 - CMP Order Info: [id number] - LIPID Order Info: [id number] - TSH Order Info: 3027 - T4F Result Comment: Fast ing Glucose result from 100 to 125 mg/dL suggests IMPAIRED HOMEOSTASIS per A.D.A. criteria. Performed By: #### L 500.4050, L506.0400, L501.9985, L501.9520, L100.0100, L500.4100 #### [facility] [address] [place], [address] Potassium [Moles/Vol] 4.0 mmol/L Normal 3.5-5.1 [facility] Comment on above: Order Comment: DR. Teresita SORTO ORDERED BMP,TACRO,CBCD,MG,CA,PHOS Order Date: 06/26/24 Order Info: 785-11 - CMP Order Info: - LIPID Order Info: [id number] - TSH Order Info: 7 - T4F Performed By: #### L 500.4050, L506.0400, L501.9985, L501.9520, L100.0100, L500.4100 #### [facility] [address] [place], [address] Sodium [Moles/Vol] 137 mmol/L Normal 136-145 [facility] Comment on above: Order Comment: DR. Teresita SORTO ORDERED BMP,TACRO,CBCD,MG,CA,PHOS Order Date: 06/26/24 Order Info: 785-11 - CMP Order Info: [id number] - LIPID Order Info: [id number] - TSH Order Info: 3027 - T4F Performed By: #### L 500.4050, L506.0400, L501.9985, L501.9520, L100.0100, L500.4100 #### [facility] [address] [place], [address] T PROT 6.5 g/dL Normal 6.4-8.2 [facility] Comment on above: Order Comment: DR. Teresita SORTO ORDERED BMP,TACRO,CBCD,MG,CA,PHOS Order Date: 06/26/24 Order Info: 07 - CMP Order Info: - LIPID Order Info: 3 - TSH Order Info: 3027 - T4F Performed By: #### L 500.4050, L506.0400, L501.9985, L501.9520, L100.0100, L500.4100 #### [facility] [address] [place], [place], [id number] Urea nitrogen [Mass/Vol] 29 mg/dL High 7- [facility] Comment on above: Order Comment: DR. Teresita SORTO ORDERED BMP,TACRO,CBCD,MG,CA,PHOS Order Date: 06/26/24 Order Info: 785-11 - CMP Order Info: - LIPID Order Info: [id number] - TSH Order Info: 7 - T4F Performed By: #### L 500.4050, L506.0400, L501.9985, L501.9520, L100.0100, L500.4100 #### [facility] [address] [place], [address] Hemoglobin A1con 08-10-2024 HbA1c (Bld) [Mass fraction] 6.5 % High 3.8-5.6 [facility] Comment on above: Order Comment: DR. Teresita SORTO ORDERED BMP,TACRO,CBCD,MG,CA,PHOS Order Date: 06/26/24 Order Info: 4548-4 - A1C Result Comment: Norm al < 5.7 % Prediabetic 5.7 - 6.4 % Diabetic >or= 6.5 % Please note range changes. Performed By: #### L 500.4050, L506.0400, L501.9985, L501.9520, L100.0100, L500.4100 #### [facility] [address] [place], [place], [address] Lipid Profileon 08-10-2024 Cholesterol [Mass/Vol] 128 mg/dL Normal 200 [facility] [facility] Comment on above: Order Comment: DR. Teresita SORTO ORDERED BMP,TACRO,CBCD,MG,CA,PHOSOrder Date: 06/26/24Order Info: [id number] - CMPOrder Info: [id number] - LIPIDOrder Info: [id number] - TSHOrder Info: [id number] - T4F Result Comment: <200 mg/dL Desirable 200-240 mg/dL Borderline >240 mg/dL High Risk Performed By: #### L 500.4050, L506.0400, L501.9985, L501.9520, L100.0100, L500.4100 ####[facility] [address] [place], [address] Cholesterol in HDL [Mass/Vol] 37 mg/dL Low [facility] Comment on above: Order Comment: DR. Teresita SORTO ORDERED BMP,TACRO,CBCD,MG,CA,PHOSOrder Date: 06/26/24Order Info: [id number] - CMPOrder Info: [id number] - LIPIDOrder Info: [id number] - TSHOrder Info: [id number] - T4F Result Comment: The drugs N-Acetylcysteine and Metamizole may falsely depress this assay. Reference Range HDL <40 mg/dL Low HDL Cholesterol HDL >or= 60 mg/dL High HDL Cholesterol Performed By: #### L 500.4050, L506.0400, L501.9985, L501.9520, L100.0100, L500.4100 ####[facility] [address] [place], [address] Cholesterol in LDL [Mass/Vol] 53 mg/dL Normal 0-130 [facility] Comment on above: Order Comment: DR. Teresita SORTO ORDERED BMP,TACRO,CBCD,MG,CA,PHOSOrder Date: 06/26/24Order Info: [id number] - CMPOrder Info: [id number] - LIPIDOrder Info: [id number] - TSHOrder Info: [id number] - T4F Performed By: #### L 500.4050, L506.0400, L501.9985, L501.9520, L100.0100, L500.4100 ####[facility] [address] [place], [address] Cholesterol in VLDL [Mass/Vol] 38 mg/dL Normal 5-40 [facility] Comment on above: Order Comment: DR. eTresita SORTO ORDERED BMP,TACRO,CBCD,MG,CA,PHOSOrder Date: 06/26/24Order Info: [id number] - CMPOrder Info: [id number] - LIPIDOrder Info: [id number] - TSHOrder Info: [id number] - T4F Performed By: #### L 500.4050, L506.0400, L501.9985, L501.9520, L100.0100, L500.4100 ####[facility] [address] [place], [place], [id number](077) Triglyceride [Mass/Vol] 191 mg/dL Normal [facility] Comment on above: Order Comment: DR. Teresita SORTO ORDERED BMP,TACRO,CBCD,MG,CA,PHOSOrder Date: 06/26/24Order Info: [id number] - CMPOrder Info: [id number] - LIPIDOrder Info: [id number] - TSHOrder Info: [id number] - T4F Result Comment: The drugs N-Acetylcysteine and Metamizole may falsely depress this assay. Serum Triglycerides Reference Interval Normal <150 mg/dL Borderline high 150 - 199 mg/dL High 200 - 499 mg/dL Very High > or = 500 mg/dL Performed By: #### L 500.4050, L506.0400, L501.9985, L501.9520, L100.0100, L500.4100 ####[facility] [address] [place], [address] Magnesiumon 08-10-2024 Magnesium [Mass/Vol] 1.8 mg/dL Normal 1.6-2.6 [facility] Comment on above: Order Comment: DR. Teresita SORTO ORDERED BMP,TACRO,CBCD,MG,CA,PHOS Performed By: #### L 501.2300, L3380.1000, L501.5200 ####[facility] [address] [place], [address] Phosphoruson 08-10-2024 Phosphate [Mass/Vol] 3.2 mg/dL Normal 2.5-4.9 [facility] Comment on above: Order Comment: DR. Teresita SORTO ORDERED BMP,TACRO,CBCD,MG,CA,PHOS Performed By: #### L 501.2300, L3380.1000, L501.5200 ####[facility] [address] [place], [address] T4 Free Directon 08-10-2024 T4 FREE DIRECT 1.27 ng/dL Normal 0.76-1.46 [facility] Comment on above: Order Comment: DR. Teresita SORTO ORDERED BMP,TACRO,CBCD,MG,CA,PHOSOrder Date: 06/26/24Order Info: [id number] - CMPOrder Info: [id number] - LIPIDOrder Info: [id number] - TSHOrder Info: [id number] - T4F Performed By: #### L 500.4050, L506.0400, L501.9985, L501.9520, L100.0100, L500.4100 ####[facility] [address] [place], [address] Thyroid Stim Hormone (TSH)on 08-10-2024 TSH 1.650 uIU/mL Normal 0.358-3.74 0 [facility] Comment on above: Order Comment: DR. Teresita SORTO ORDERED BMP,TACRO,CBCD,MG,CA,PHOSOrder Date: 06/26/24Order Info: [id number] - CMPOrder Info: [id number] - LIPIDOrder Info: [id number] - TSHOrder Info: [id number] - T4F Performed By: #### L 500.4050, L506.0400, L501.9985, L501.9520, L100.0100, L500.4100 ####[facility] [address] [place], [address] Urinalysis, Completeon 08-10 EPI,SQUAMOUS 0-5 SEEN Normal 0-5 [facility] Comment on above: Order Comment: DR. Teresita SORTO ORDERED BMP,TACRO,CBCD,MG,CA,PHOS CLEAN CATCH Performed By: #### L 400.0001 #### [facility] [address] [place], [address] BACTERIA 0 SEEN Normal None Seen [facility] Comment on above: Order Comment: DR. Teresita SORTO ORDERED BMP,TACRO,CBCD,MG,CA,PHOS CLEAN CATCH Performed By: #### L 400.0001 #### [facility] [address] [place], [address] Mucus Ql (Urine sed) 0 SEEN Normal [facility] Comment on above: Order Comment: DR. Teresita SORTO ORDERED BMP,TACRO,CBCD,MG,CA,PHOS CLEAN CATCH Performed By: #### L 400.0001 #### [facility] [address] [place], [address] RBC 0 SEEN Normal 0-5 [facility] Comment on above: Order Comment: DR. Teresita SORTO ORDERED BMP,TACRO,CBCD,MG,CA,PHOS CLEAN CATCH Performed By: #### L 400.0001 #### [facility] [address] [place], [address] WBC 0 SEEN Normal 0-5 [facility] Comment on above: Order Comment: DR. Teresita SORTO ORDERED BMP,TACRO,CBCD,MG,CA,PHOS CLEAN CATCH Performed By: #### L 400.0001 #### [facility] [address] [place], [address] CNPNon 06-15-2024 CNPN Telephone (INOCENCIO) ROBERT MCCRARY ([id number]) 1960 M Date Time Provider Department 06/15/24 SHELL KRUGER During your visit today, we recorded the following information about you: Yasmeen Mcintohs OCCA 06/15/2024 2:05 PM Signed Faxed signed CPAP Rx and e-signed office note to Alicia Junior at [phone]. Allergies As of Date: 06/15/2024 (No Known Allergies) Date Reviewed: 06/17/2023 Reviewed by: Shell Kruger APRN.DEMURRAGE CLERK - Fully Assessed Reason for Visit: Orders [681] Cmt: Faxed signed CPAP Rx and e-signed office note to Alicia Junior at [phone]. Prescriptions as of 06/15/2024 - atorvastatin (LIPITOR) 40 mg tablet - calcitriol (ROCALTROL) 0.25 mcg capsule - carvedilol (COREG) 12.5 mg tablet Take 12.5 mg by mouth. - denosumab (PROLIA) 60 mg/mL Inject 60 mg subcutaneously. - mycophenolate sodium DR (MYFORTIC) 180 mg EC tablet - predniSONE (DELTASONE) 5 mg tablet Take 1 tablet by mouth once daily. - tacrolimus ER (ENVARSUS XR) 0.75 mg tablet Take 1 tablet by mouth once daily. - torsemide (DEMADEX) 20 mg tablet - CPAP/BIPAP/OTHER Supplies: Settings IPAP 16, EPAP 10, PS 6 cm H2O, suitable mask per pt preference, chin strap, head gear, humidity, tubing, lifetime supplies. G47.33 DAVID - citalopram (CELEXA) 40 mg tablet Take 40 mg by mouth once daily. - pantoprazole DR (PROTONIX) 40 mg tablet Take 40 mg by mouth once daily. - hydrALAZINE (APRESOLINE) 25 mg tablet Take 25 mg by mouth three times daily. - amLODIPine (NORVASC) 10 mg tablet Take 10 mg by mouth once daily. - SIMVASTATIN 20 mg tablet once daily. - SYNTHROID 150 mcg tablet 175 mcg once daily. 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/02/2018 09/03/2018 Essential hypertension [I10] 08/02/2018 Blood loss anemia [D50.0] 08/02/2018 Hypothyroidism [E03.9] 08/03/2018 Hypoxia [R09.02] 08/03/2018 08/06/2018 Positive fecal occult blood test [R19.5] 08/06/2018 Controlled type 2 diabetes mellitus without com*09/03/2018 DAVID (obstructive sleep apnea) [G47.33] 09/24/2019 Encounter Status:Closed by YASMEEN MCINTOSH on 06/15/24 [facility] ROBERT MCCRARY ([id number]) 1960 M Date Time Provider Department 06/12/24 SHELL KRUGER During your visit today, we recorded the following information about you: Yasmeen Mcintosh OCCA 06/12/2024 10:43 AM Signed Received faxed CPAP order and signed office note request from Alicia. Placed on Shell's desk for review and signature. Allergies As of Date: 06/12/2024 (No Known Allergies) Date Reviewed: 06/17/2023 Reviewed by: Shell Kruger APRN.DEMURRAGE CLERK - Fully Assessed Reason for Visit: Orders [681] Cmt: Received faxed CPAP order and signed office note request from Alicia. Placed on Shell's desk for review and signature. Prescriptions as of 06/12/2024 - atorvastatin (LIPITOR) 40 mg tablet - calcitriol (ROCALTROL) 0.25 mcg capsule - carvedilol (COREG) 12.5 mg tablet Take 12.5 mg by mouth. - denosumab (PROLIA) 60 mg/mL Inject 60 mg subcutaneously. - mycophenolate sodium DR (MYFORTIC) 180 mg EC tablet - predniSONE (DELTASONE) 5 mg tablet Take 1 tablet by mouth once daily. - tacrolimus ER (ENVARSUS XR) 0.75 mg tablet Take 1 tablet by mouth once daily. - torsemide (DEMADEX) 20 mg tablet - CPAP/BIPAP/OTHER Supplies: Settings IPAP 16, EPAP 10, PS 6 cm H2O, suitable mask per pt preference, chin strap, head gear, humidity, tubing, lifetime supplies. G47.33 DAVID - citalopram (CELEXA) 40 mg tablet Take 40 mg by mouth once daily. - pantoprazole DR (PROTONIX) 40 mg tablet Take 40 mg by mouth once daily. - hydrALAZINE (APRESOLINE) 25 mg tablet Take 25 mg by mouth three times daily. - amLODIPine (NORVASC) 10 mg tablet Take 10 mg by mouth once daily. - SIMVASTATIN 20 mg tablet once daily. - SYNTHROID 150 mcg tablet 175 mcg once daily. 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 09/03/2018 Essential hypertension [I10] 08/02/2018 Blood loss anemia [D50.0] 08/02/2018 Hypothyroidism [E03.9] 08/03/2018 Hypoxia [R09.02] 08/03/2018 08/06/2018 Positive fecal occult blood test [R19.5] 08/06/2018 Controlled type 2 diabetes mellitus without com*09/03/2018 DAVID (obstructive sleep apnea) [G47.33] 09/24/2019 Encounter Status:Closed by YASMEEN MCINTOSH on 06/12/24 [facility] Absolute lymphocyte countOrd ered By: Marques Casanova on 03-24-2024 Lymphocytes Auto (Unsp spec) [#/Vol] 0.91 10*3/uL 0.83-4.51 [facility] Automated lymphocyte count a s percentage of total leukocytesOrdered By: Marques Casanova on 03-24-2024 Lymphocytes/100 WBC Auto (Unsp spec) 5.7 % 19-41 [facility] Basophil percentageOrdered B y: Marques Casanova on 03-24-2024 Basophils/100 WBC (Bld) 0.4 % 0-1 [facility] Bilirubin [Mass/Vol] 0.70 mg/dL 0.20-1.00 [facility] Comment on above: For patients on eltr ombopag therapy, use of Dimension [place] TBIL is not recommended. Chloride [Moles/Vol] 109 mmol/L 98-107 [facility] Cholesterol [Mass/Vol] 104 mg/dL <200 [facility] Comment on above: <200 mg/dL Desirable 200-240 mg/dL Borderline >240 mg/dL High Risk Eosinophils/100 WBC (Bld) 0.8 % 0-5 [facility] Glucose [Mass/Vol] 163 mg/dL 74-106 [facility] Comment on above: Fasting Glucose resu lt greater than or equal to 126 mg/dL suggests DIABETES MELLITUS per A.D.A. criteria. Hemoglobin (Bld) [Mass/Vol] 15.2 g/dL 13.0-16.5 [facility] Monocytes/100 WBC (Bld) 7.6 % 0-10 [facility] Neutrophils (Bld) [#/Vol] 13.5 10*3/uL 2.0-7.7 [facility] Neutrophils/100 WBC (Bld) 84.6 % 47-70 [facility] Potassium [Moles/Vol] 4.3 mmol/L 3.5-5.1 [facility] Protein [Mass/Vol] 6.8 g/dL 6.4-8.2 [facility] Sodium [Moles/Vol] 138 mmol/L 136-145 [facility] Triglyceride [Mass/Vol] 113 mg/dL <199 [facility] Comment on above: The drugs N-Acetylcy steine and Metamizole may falsely depress this assay.Serum Triglycerides Reference Interval Normal <150 mg/dL Borderline high 150 - 199 mg/dL High 200 - 499 mg/dL Very High > or = 500 mg/dL WBC (Bld) [#/Vol] 16.0 10*3/uL 4.4-11.0 [facility] Determination of erythrocyte mean corpuscular volume (MCV)Ordered By: Marques Casanova on 03-24-2024 MCV (RBC) [Entitic vol] 87.7 fL 80-94 [facility] Erythrocyte distribution wid th ratioOrdered By: Marques Casanova on 03-24-2024 Erythrocyte distribution width (RBC) [Ratio] 13.9 % 11.6-14.6 [facility] Erythrocyte distribution wid th standard deviationOrdered By: Marques Casanova on 03-24-2024 Erythrocyte distribution width (RBC) [Entitic vol] 44.6 fL 35.1-43.9 [facility] Hematocrit Auto (Bld) [Volum e fraction]Ordered By: Marques Casanova on 03-24-2024 Hematocrit (Bld) [Volume fraction] 49.0 % 40-54 [facility] Immature granulocytes/100 WB C Auto (Bld)Ordered By: Marques Casanova on 03-24-2024 Immature granulocytes/100 WBC (Bld) 0.900 % 0.0-0.9 [facility] Comment on above: IG% - Immature Granu locytes (promyelocytes, myelocytes and metamyelocytes) > 1% indicates that a LEFT SHIFT is Present. Laboratory - Chemistry and C hemistry - challengeOrdered By: Marques Casanova on 03-24-2024 Albumin/Globulin [Mass ratio] 1.3 {ratio} 0.9-2.4 [facility] ALP [Catalytic activity/Vol] 72 U/L 45-117 [facility] ALT [Catalytic activity/Vol] 23 U/L 16-61 [facility] Cholesterol in HDL [Mass/Vol] 34 mg/dL >40 [facility] Comment on above: The drugs N-Acetylcy steine and Metamizole may falsely depress this assay. Reference Range HDL <40 mg/dL Low HDL Cholesterol HDL >or= 60 mg/dL High HDL Cholesterol Cholesterol in LDL [Mass/Vol] 47 mg/dL 0-130 [facility] CO2 [Moles/Vol] 23.0 mmol/L 21.0-32.0 [facility] Globulin (S) [Mass/Vol] 3.0 g/dL 2.2-4.2 [facility] Urea nitrogen/Creatinine [Mass ratio] 13.1 mg/mg 10-20 [facility] - Hematology and Cell countsOrdered By: Marques Casanova on 03-24-2024 MCH (RBC) [Entitic mass] 27.2 pg 27.0-32.0 [facility] MCHC (RBC) [Mass/Vol] 31.0 g/dL 32-36 [facility] Nucleated RBC/100 WBC (Bld) [Ratio] 0 % 0-5 [facility] Platelet mean volume (Bld) [Entitic vol] 10.7 fL 6.2-12.0 [facility] Platelets (Bld) [#/Vol] 224 10*3/uL 150-450 [facility] No Panel InformationOrdered By: Marques Casanova on 03-24-2024 Estimated GFR (MDRD) Amer 39 mL/min >60 [facility] Comment on above: GFR Calc Estimated GFR (MDRD) Non-Af Amer 32 mL/min >60 [facility] Comment on above: Non- GFR Calc VLDL Cholesterol 23 mg/dL 5-40 [facility] RBC Auto (Bld) [#/Vol]Ordere d By: Marques Casanova on 03-24-2024 RBC (Bld) [#/Vol] 5.59 10*6/uL 4.6-6.2 [facility] Serum or plasma calcium ayana urement (mass/volume)Ordered By: Marques Casanova on 03-24-2024 Calcium [Mass/Vol] 10.0 mg/dL 8.5-10.1 [facility] Serum or plasma creatinine m easurement (mass/volume)Ordered By: Marques Casanova on 03-24-2024 Creatinine [Mass/Vol] 2.21 mg/dL 0.70-1.30 [facility] Comment on above: The validity of the calculated GFR & GFRAA in patients over 70 years has not been determined. Clinical correlation is essential. Serum or plasma thyroid stim ulating hormone (TSH) measurement (units/volume)Ordered By: Marques Casanova on 03-24-2024 TSH Qn 0.40 uIU/mL 0.358-3.74 [facility] Serum or plasma urea nitroge n measurement (mass/volume)Ordered By: Marques Casanova on 03-24-2024 Urea nitrogen [Mass/Vol] 29 mg/dL 7-18 [facility] Thin prep Papanicolaou smear with manual screeningOrdered By: Marques Casanova on 03-24-2024 Thin prep Papanicolaou smear with manual screening 3.8 g/dL 3.2-5.0 [facility] Thin prep Papanicolaou smear with manual screening 14 U/L 15-37 [facility] Thin prep Papanicolaou smear with manual screening 6 5-15 [facility] Thin prep Papanicolaou smear with manual screening 1.42 ng/dL 0.76-1.46 [facility] C REACTIVE PROTEINon 024 CRP High sensitivity method [Mass/Vol] 5.72 mg/L NINF - 10.00 mg/L [facility] CALCIUMon 02-24-2024 Calcium [Mass/Vol] 9.8 mg/dL 8.6 - 10. 5 mg/dL [facility] HEPATIC FUNCTION PANELon Albumin [Mass/Vol] 4.3 g/dL 3.5 - 5.0 g/dL [facility] ALP [Catalytic activity/Vol] 63 U/L 32 - 126 U/L [facility] ALT [Catalytic activity/Vol] 11 U/L 10 - 52 U/L [facility] AST [Catalytic activity/Vol] 12 U/L 10 - 39 U/L [facility] Bilirubin [Mass/Vol] 0.6 mg/dL NINF - 1.5 [facility] [Mass/Vol] 0.2 mg/dL NINF - 0.3 mg/dL [facility] Protein [Mass/Vol] 6.8 g/dL 6.4 - 8.3 g/dL [facility] No Panel Informationon 02-23 Interpretation and review of laboratory results Normal [facility] PHOSPHATE, INORGANICon 02-23 Interpretation and review of laboratory results Normal [facility] Phosphate [Mass/Vol] 3.2 mg/dL 2.2 - 4 .6 mg/dL [facility] PTH INTACTOrdered By: Tamera Nielsen on 02-24-2024 Interpretation and review of laboratory results Normal [facility] Parathyrin.intact [Mass/Vol] 63.8 pg/mL 14.0 - 72.0 pg/mL [facility] SEDIMENTATION RATE, AUTOMATE Don 02-24-2024 ESR (Bld) [Velocity] 2 mm/h [facility] Interpretation and review of laboratory results Normal [facility] VITAMIN D (25-HYDROXY,TOTAL) on 02-24-2024 Interpretation and review of laboratory results Normal [facility] Vitamin D+Metabolites [Mass/Vol] 45.1 ng/mL 30.0 - 100.0 ng/mL [facility] Comment on above: <10 Deficiency 10-29 Insufficiency 30-100 Optimal Level >100 Possible Toxicity Vitamin D values hav e been shown to be falsely decreased in lipemic samples and should be interpreted with caution. [facility] Absolute lymphocyte counton 12-31-2023 Lymphocytes Auto (Unsp spec) [#/Vol] 0.93 10*3/uL 0.83-4.51 [facility] Automated lymphocyte count a s percentage of total leukocyteson 12-31-2023 Lymphocytes/100 WBC Auto (Unsp spec) 7.2 % 19-41 [facility] Basophil percentageon 2023 Basophils/100 WBC (Bld) 0.4 % 0-1 [facility] Chloride [Moles/Vol] 107 mmol/L 98-107 [facility] Eosinophils/100 WBC (Bld) 1.0 % 0-5 [facility] Glucose [Mass/Vol] 132 mg/dL 74-106 [facility] Comment on above: Fasting Glucose resu lt greater than or equal to 126 mg/dL suggests DIABETES MELLITUS per A.D.A. criteria. Hemoglobin (Bld) [Mass/Vol] 15.4 g/dL 13.0-16.5 [facility] Monocytes/100 WBC (Bld) 7.7 % 0-10 [facility] Neutrophils (Bld) [#/Vol] 10.7 10*3/uL 2.0-7.7 [facility] Neutrophils/100 WBC (Bld) 82.9 % 47-70 [facility] Potassium [Moles/Vol] 4.0 mmol/L 3.5-5.1 [facility] Sodium [Moles/Vol] 134 mmol/L 136-145 [facility] WBC (Bld) [#/Vol] 12.9 10*3/uL 4.4-11.0 [facility] Determination of erythrocyte mean corpuscular volume (MCV)on 12-31-2023 MCV (RBC) [Entitic vol] 86.8 fL 80-94 [facility] Erythrocyte distribution wid th ratioon 12-31-2023 Erythrocyte distribution width (RBC) [Ratio] 13.5 % 11.6-14.6 [facility] Erythrocyte distribution wid th standard deviationon 12-31-2023 Erythrocyte distribution width (RBC) [Entitic vol] 42.5 fL 35.1-43.9 [facility] Hematocrit Auto (Bld) [Volum e fraction]on 12-31-2023 Hematocrit (Bld) [Volume fraction] 49.8 % 40-54 [facility] Immature granulocytes/100 WB C Auto (Bld)on 12-31-2023 Immature granulocytes/100 WBC (Bld) 0.800 % 0.0-0.9 [facility] Comment on above: IG% - Immature Granu locytes (promyelocytes, myelocytes and metamyelocytes) > 1% indicates that a LEFT SHIFT is Present. Laboratory - Chemistry and C hemistry - challengeon 12-31-2023 CO2 [Moles/Vol] 22.0 mmol/L 21.0-32.0 [facility] Urea nitrogen/Creatinine [Mass ratio] 12.7 mg/mg 10-20 [facility] - Hematology and Cell countson 12-31-2023 MCH (RBC) [Entitic mass] 26.8 pg 27.0-32.0 [facility] MCHC (RBC) [Mass/Vol] 30.9 g/dL 32-36 [facility] Nucleated RBC/100 WBC (Bld) [Ratio] 0 % 0-5 [facility] Platelet mean volume (Bld) [Entitic vol] 10.3 fL 6.2-12.0 [facility] Platelets (Bld) [#/Vol] 197 10*3/uL 150-450 [facility] No Panel Informationon 12-31 Estimated GFR (MDRD) Amer 39 mL/min >60 [facility] Comment on above: GFR Calc Estimated GFR (MDRD) Non-Af Amer 32 mL/min >60 [facility] Comment on above: Non- GFR Calc Tacrolimus (Prograf) Level 6.5 ng/mL 2.0-20.0 [facility] Comment on above: Trough (immediately following transplant) 15.0 Trough (steady state, 2 weeks or more after transplant): 3.0 - 8.0 Performed by LC-MS/MS technology.Performed at: [facility] [address] [id number] Director: Leticia Tee MD, Phone: [phone] RBC Auto (Bld) [#/Vol]on RBC (Bld) [#/Vol] 5.74 10*6/uL 4.6-6.2 [facility] Serum or plasma calcium ayana urement (mass/volume)on 12-31-2023 Calcium [Mass/Vol] 9.5 mg/dL 8.5-10.1 [facility] Serum or plasma creatinine m easurement (mass/volume)on 12-31-2023 Creatinine [Mass/Vol] 2.20 mg/dL 0.70-1.30 [facility] Comment on above: The validity of the calculated GFR & GFRAA in patients over 70 years has not been determined. Clinical correlation is essential. Serum or plasma urea nitroge n measurement (mass/volume)on 12-31-2023 Urea nitrogen [Mass/Vol] 28 mg/dL 7-18 [facility] Thin prep Papanicolaou smear with manual screeningon 12-31-2023 Thin prep Papanicolaou smear with manual screening 5 5-15 [facility] - Hematology and Cell countson 12-23-2023 HbA1c (Bld) [Mass fraction] 7.6 % 4.2-6.3 [facility] Basophil percentageon 2022 Chloride [Moles/Vol] 107 mmol/L 98-107 [facility] Glucose [Mass/Vol] 127 mg/dL 74-106 [facility] Comment on above: Fasting Glucose resu lt greater than or equal to 126 mg/dL suggests DIABETES MELLITUS per A.D.A. criteria. Potassium [Moles/Vol] 4.3 mmol/L 3.5-5.1 [facility] Sodium [Moles/Vol] 137 mmol/L 136-145 [facility] - Chemistry and C hemistry - challengeon 11-05-2023 CO2 [Moles/Vol] 25.0 mmol/L 21.0-32.0 [facility] Urea nitrogen/Creatinine [Mass ratio] 13.8 mg/mg 10-20 [facility] No Panel Informationon 11-05 Estimated GFR (MDRD) Amer 34 mL/min >60 [facility] Comment on above: GFR Calc Estimated GFR (MDRD) Non-Af Amer 28 mL/min >60 [facility] Comment on above: Non- GFR Calc Tacrolimus (Prograf) Level 6.0 ng/mL 2.0-20.0 [facility] Comment on above: Trough (immediately following transplant) 15.0 Trough (steady state, 2 weeks or more after transplant): 3.0 - 8.0 Performed by LC-MS/MS technology.Performed at: [employer] [id number] Director: Leticia Tee MD, Phone: [phone] Serum or plasma calcium ayana urement (mass/volume)on 11-05-2023 Calcium [Mass/Vol] 9.2 mg/dL 8.5-10.1 [facility] Serum or plasma creatinine m easurement (mass/volume)on 11-05-2023 Creatinine [Mass/Vol] 2.47 mg/dL 0.70-1.30 [facility] Comment on above: The validity of the calculated GFR & GFRAA in patients over 70 years has not been determined. Clinical correlation is essential. Serum or plasma urea nitroge n measurement (mass/volume)on 11-05-2023 Urea nitrogen [Mass/Vol] 34 mg/dL 7-18 [facility] Thin prep Papanicolaou smear with manual screeningon 11-05-2023 Thin prep Papanicolaou smear with manual screening 5 5-15 [facility] C REACTIVE PROTEINon 023 CRP High sensitivity method [Mass/Vol] 4.64 mg/L NINF - 10.00 mg/L [facility] HEPATIC FUNCTION PANELon Albumin [Mass/Vol] 4.5 g/dL 3.5 - 5.0 g/dL [facility] ALP [Catalytic activity/Vol] 61 U/L 32 - 126 U/L [facility] ALT [Catalytic activity/Vol] 12 U/L 10 - 52 U/L [facility] AST [Catalytic activity/Vol] 11 U/L 10 - 39 U/L [facility] Bilirubin [Mass/Vol] 0.7 mg/[facility] Bilirubin.direct [Mass/Vol] 0.2 mg/dL NINF - 0.3 mg/dL [facility] Protein [Mass/Vol] 6.7 g/dL 6.4 - 8.3 g/dL [facility] No Panel Informationon 10-21 Interpretation and review of laboratory results Normal [facility] SEDIMENTATION RATE, AUTOMATE Don 10-21-2023 ESR (Bld) [Velocity] 6 mm/h [facility] Interpretation and review of laboratory results Normal [facility] ALDOSTERONEon 09-24-2023 Aldosterone [Mass/Vol] 14.50 ng/dL NINF - 35.30 ng/dL [facility] Comment on above: Reference Range: Plasma Upright: <35.30 ng/dL Plasma Supine: <23.60 ng/dL Serum Upright: <39.20 ng/dL Serum Supine: <23.20 ng/dL Samples with low levels of Aldosterone have been shown to be falsely decreased by hemolysis and should be interpreted with caution. Interpretation and review of laboratory results Normal [facility] RENINon 09-24-2023 Interpretation and review of laboratory results Normal [facility] Renin (P) [Mass/Vol] 28.1 pg/mL 3.6 - 8 1.6 pg/mL [facility] Comment on above: Direct Renin Referen ce Range: Upright: Age 40 (3.6-81.6 pg/mL) Supine: Age 40 (2.5-45.1 pg/mL) [facility] CBC,PLATELETSon 09-23-2023 Erythrocyte distribution width (RBC) [Ratio] 14.5 % High 10.9 - 14.3 % [facility] Hematocrit (Bld) [Volume fraction] 48.1 % 39.6 - 48.8 % [facility] Hemoglobin (Bld) [Mass/Vol] 15.2 g/dL 13.4 - 16.8 g/dL [facility] Interpretation and review of laboratory results Abnormal [facility] MCH (RBC) [Entitic mass] 26.9 pg 26.1 - 33.3 pg [facility] MCHC (RBC) [Mass/Vol] 31.6 g/dL Low 31.9 - 36.5 g/dL [facility] MCV (RBC) [Entitic vol] 85.0 fL 79.0 - 94.5 fL [facility] Platelet mean volume (Bld) [Entitic vol] 10.6 fL 8.7 - 12.3 fL [facility] Platelets (Bld) [#/Vol] 220 10*3/uL 146 - 337 K/uL [facility] RBC (Bld) [#/Vol] 5.66 10*6/uL [facility] WBC (Bld) [#/Vol] 13.74 10*3/uL High 3.73 - 10.10 K/uL [facility] CHEM 7 (LYTES,BUN,CREA,GLUC) on 09-23-2023 Anion gap [Moles/Vol] 16 mmol/L 7 - 17 mmol/L [facility] Chloride [Moles/Vol] 107 mmol/L 98 - 10 8 mmol/L [facility] CO2 [Moles/Vol] 20 mmol/L Low 21 - 31 mmol/L [facility] Creatinine [Mass/Vol] 1.99 mg/dL High 0.70 - 1.30 mg/dL [facility] eGFR, CKD-EPI, Male 39 Low - PINF [facility] Comment on above: Reported eGFR is bas ed on the CKD-EPI 2020 equation using creatinine, age, and sex. Glucose [Mass/Vol] 154 mg/dL High 70 - 99 mg/dL [facility] Interpretation and review of laboratory results Abnormal [facility] Osmolality Calc [Osmolality] 299 [facility] Potassium [Moles/Vol] 4.1 mmol/L 3.5 - 5.0 mmol/L [facility] Sodium [Moles/Vol] 139 mmol/L 135 - 145 mmol/L [facility] Urea nitrogen [Mass/Vol] 24 mg/dL 7 - 25 mg/dL [facility] Urea nitrogen/Creatinine [Mass ratio] 12 mg/mg [facility] Anaerobic cultureOrdered By: Santo Esparza on 08-13-2023 Bacteria identified Anaer cx Nom (Unsp spec) No growth in 5 days. [facility] Gram stain for investigation of transfusion reactionOrdered By: Santo Esparza on 08-13-2023 Microscopic observation Gram stain Nom (Unsp spec) [facility] Routine wound cultureOrdered By: Santo Esparza on 08-13-2023 Bacteria identified Cx Nom (Wound) No growth aerobically. [facility] Absolute lymphocyte counton 08-12-2023 Lymphocytes Auto (Unsp spec) [#/Vol] 1.23 10*3/uL 0.83-4.51 [facility] Anaerobic cultureOrdered By: Santo Esparza on 08-12-2023 Bacteria identified Anaer cx Nom (Unsp spec) No growth in 5 days. [facility] Basophil percentageon 2022 Basophil percentage 2.9 mg/dL 2.5-4.9 [facility] Basophils/100 WBC (Bld) 0.7 % 0-1 [facility] Chloride [Moles/Vol] 108 mmol/L 98-107 [facility] Eosinophils/100 WBC (Bld) 1.6 % 0-5 [facility] Glucose [Mass/Vol] 136 mg/dL 74-106 [facility] Comment on above: Fasting Glucose resu lt greater than or equal to 126 mg/dL suggests DIABETES MELLITUS per A.D.A. criteria. Neutrophils (Bld) [#/Vol] 8.7 10*3/uL 2.0-7.7 [facility] Neutrophils/100 WBC (Bld) 77.3 % 47-70 [facility] Potassium [Moles/Vol] 3.3 mmol/L 3.5-5.1 [facility] Sodium [Moles/Vol] 140 mmol/L 136-145 [facility] WBC (Bld) [#/Vol] 11.2 10*3/uL 4.4-11.0 [facility] Blood erythrocytes count (nu mber/volume)on 08-12-2023 RBC (Bld) [#/Vol] 5.63 10*6/uL 4.6-6.2 [facility] Blood hemoglobin measurement (mass/volume)on 08-12-2023 Hemoglobin (Bld) [Mass/Vol] 15.3 g/dL 13.0-16.5 [facility] Blood lymphocytes/100 leukoc yteson 08-12-2023 Lymphocytes/100 WBC (Bld) 11.0 % 19-41 [facility] Blood monocytes/100 leukocyt eson 08-12-2023 Monocytes/100 WBC (Bld) 8.2 % 0-10 [facility] Blood platelet mean volumeon 08-12-2023 Platelet mean volume (Bld) [Entitic vol] 10.1 fL 6.2-12.0 [facility] Determination of erythrocyte mean corpuscular volume (MCV)on 08-12-2023 MCV (RBC) [Entitic vol] 86.0 fL 80-94 [facility] Gram stain for investigation of transfusion reactionOrdered By: Santo Esparza on 08-12-2023 Microscopic observation Gram stain Nom (Unsp spec) [facility] Hematocrit Auto (Bld) [Volum e fraction]on 08-12-2023 Hematocrit (Bld) [Volume fraction] 48.4 % 40-54 [facility] Laboratory - Chemistry and C hemistry - challengeon 08-12-2023 CO2 [Moles/Vol] 26.0 mmol/L 21.0-32.0 [facility] Magnesium [Mass/Vol] 1.9 mg/dL 1.6-2.6 [facility] Urea nitrogen/Creatinine [Mass ratio] 15.3 mg/mg 10-20 [facility] Laboratory - Hematology and Cell countson 08-12-2023 Erythrocyte distribution width (RBC) [Entitic vol] 44.1 fL 35.1-43.9 [facility] Erythrocyte distribution width (RBC) [Ratio] 14.1 % 11.6-14.6 [facility] Immature granulocytes/100 WBC (Bld) 1.200 % 0.0-0.9 [facility] Comment on above: IG% - Immature Granu locytes (promyelocytes, myelocytes and metamyelocytes) > 1% indicates that a LEFT SHIFT is Present. MCH (RBC) [Entitic mass] 27.2 pg 27.0-32.0 [facility] Nucleated RBC/100 WBC (Bld) [Ratio] 0 % 0-5 [facility] MCHC Auto (RBC) [Mass/Vol]on 08-12-2023 MCHC (RBC) [Mass/Vol] 31.6 g/dL 32-36 [facility] No Panel Informationon 08-12 Estimated GFR (MDRD) Amer 34 mL/min >60 [facility] Comment on above: GFR Calc Estimated GFR (MDRD) Non-Af Amer 28 mL/min >60 [facility] Comment on above: Non- GFR Calc Tacrolimus (Prograf) Level 7.1 ng/mL 2.0-20.0 [facility] Comment on above: Trough (immediately following transplant) 15.0 Trough (steady state, 2 weeks or more after transplant): 3.0 - 8.0 Performed by LC-MS/MS technology.Performed at: [facility] [address] [id number] Director: Leticia Tee MD, Phone: [phone] Platelets bldon 08-12-2023 Platelets (Bld) [#/Vol] 217 10*3/uL 150-450 [facility] Routine wound cultureOrdered By: Santo Esparza on 08-12-2023 Bacteria identified Cx Nom (Wound) No growth aerobically. [facility] Serum or plasma calcium ayana urement (mass/volume)on 08-12-2023 Calcium [Mass/Vol] 8.8 mg/dL 8.5-10.1 [facility] Serum or plasma creatinine m easurement (mass/volume)on 08-12-2023 Creatinine [Mass/Vol] 2.48 mg/dL 0.70-1.30 [facility] Comment on above: The validity of the calculated GFR & GFRAA in patients over 70 years has not been determined. Clinical correlation is essential. Serum or plasma urea nitroge n measurement (mass/volume)on 08-12-2023 Urea nitrogen [Mass/Vol] 38 mg/dL 06-11 [facility] Thin prep Papanicolaou smear with manual screeningon 08-12-2023 Thin prep Papanicolaou smear with manual screening 6 - [facility] Absolute lymphocyte countOrd ered By: Marques Casanova on 07-03-2023 Lymphocytes Auto (Unsp spec) [#/Vol] 1.29 10*3/uL 0.83-4.51 [facility] Basophil percentageon 2022 Basophil percentage 4.2 mg/dL 2.5-4.9 [facility] Cholesterol [Mass/Vol] 115 mg/dL <200 [facility] Comment on above: <200 mg/dL Desirable 200-240 mg/dL Borderline >240 mg/dL High Risk Triglyceride [Mass/Vol] 290 mg/dL <199 [facility] Comment on above: The drugs N-Acetylcy steine and Metamizole may falsely depress this assay.Serum Triglycerides Reference Interval Normal <150 mg/dL Borderline high 150 - 199 mg/dL High 200 - 499 mg/dL Very High > or = 500 mg/dL Basophil percentageOrdered B y: Marques Casanova on 07-03-2023 Basophils/100 WBC (Bld) 0.9 % 0-1 [facility] Bilirubin [Mass/Vol] 0.70 mg/dL 0.20-1.00 [facility] Comment on above: For patients on eltr ombopag therapy, use of Dimension [place] TBIL is not recommended. Chloride [Moles/Vol] 103 mmol/L 98-107 [facility] Eosinophils/100 WBC (Bld) 1.7 % 0-5 [facility] Glucose [Mass/Vol] 136 mg/dL 74-106 [facility] Comment on above: Fasting Glucose resu lt greater than or equal to 126 mg/dL suggests DIABETES MELLITUS per A.D.A. criteria. Neutrophils (Bld) [#/Vol] 9.6 10*3/uL 2.0-7.7 [facility] Neutrophils/100 WBC (Bld) 75.5 % 47-70 [facility] Potassium [Moles/Vol] 3.2 mmol/L 3.5-5.1 [facility] Protein [Mass/Vol] 6.7 g/dL 6.4-8.2 [facility] Sodium [Moles/Vol] 141 mmol/L 136-145 [facility] WBC (Bld) [#/Vol] 12.7 10*3/uL 4.4-11.0 [facility] Blood erythrocytes count (nu mber/volume)Ordered By: Marques Casanova on 07-03-2023 RBC (Bld) [#/Vol] 5.62 10*6/uL 4.6-6.2 [facility] Blood hemoglobin measurement (mass/volume)Ordered By: Marques Casanova on 07-03-2023 Hemoglobin (Bld) [Mass/Vol] 15.0 g/dL 13.0-16.5 [facility] Blood lymphocytes/100 leukoc ytesOrdered By: Marques Casanova on 07-03-2023 Lymphocytes/100 WBC (Bld) 10.2 % 19-41 [facility] Blood monocytes/100 leukocyt esOrdered By: Marques Casanova on 07-03-2023 Monocytes/100 WBC (Bld) 10.9 % 0-10 [facility] Blood platelet mean volumeOr dered By: Marques Casanova on 07-03-2023 Platelet mean volume (Bld) [Entitic vol] 10.2 fL 6.2-12.0 [facility] Determination of erythrocyte mean corpuscular volume (MCV)Ordered By: Marques Casanova on 07-03-2023 MCV (RBC) [Entitic vol] 86.1 fL 80-94 [facility] Hematocrit Auto (Bld) [Volum e fraction]Ordered By: Marques Casanova on 07-03-2023 Hematocrit (Bld) [Volume fraction] 48.4 % 40-54 [facility] Laboratory - Chemistry and C hemistry - challengeon 07-03-2023 Magnesium [Mass/Vol] 2.0 mg/dL 1.6-2.6 [facility] Laboratory - Chemistry and C hemistry - challengeOrdered By: Marques Casanova on 07-03-2023 ALP [Catalytic activity/Vol] 83 U/L 45-117 [facility] ALT [Catalytic activity/Vol] 23 U/L 16-61 [facility] CO2 [Moles/Vol] 25.0 mmol/L 21.0-32.0 [facility] Free T4 [Mass/Vol] 1.17 ng/dL 0.76-1.46 [facility] Globulin (S) [Mass/Vol] 2.8 g/dL 2.2-4.2 [facility] Urea nitrogen/Creatinine [Mass ratio] 13.6 mg/mg 10-20 [facility] Laboratory - Hematology and Cell countsOrdered By: Marques Casanova on 07-03-2023 Erythrocyte distribution width (RBC) [Entitic vol] 44.9 fL 35.1-43.9 [facility] Erythrocyte distribution width (RBC) [Ratio] 14.3 % 11.6-14.6 [facility] Immature granulocytes/100 WBC (Bld) 0.800 % 0.0-0.9 [facility] Comment on above: IG% - Immature Granu locytes (promyelocytes, myelocytes and metamyelocytes) > 1% indicates that a LEFT SHIFT is Present. MCH (RBC) [Entitic mass] 26.7 pg 27.0-32.0 [facility] Nucleated RBC/100 WBC (Bld) [Ratio] 0 % 0-5 [facility] MCHC Auto (RBC) [Mass/Vol]Or dered By: Marques Casanova on 07-03-2023 MCHC (RBC) [Mass/Vol] 31.0 g/dL 32-36 [facility] No Panel Informationon 07-03 Parathyroid Hormone (Intact) 166.0 pg/mL 18.4-80.1 [facility] Tacrolimus (Prograf) Level 6.8 ng/mL 2.0-20.0 [facility] Comment on above: Trough (immediately following transplant) 15.0 Trough (steady state, 2 weeks or more after transplant): 3.0 - 8.0 Performed by LC-MS/MS technology.Performed at: [employer] [id number] Director: Leticia Tee MD, Phone: [phone] No Panel InformationOrdered By: Marques Casanova on 07-03-2023 Estimated GFR (MDRD) Amer 32 mL/min >60 [facility] Comment on above: GFR Calc Estimated GFR (MDRD) Non-Af Amer 26 mL/min >60 [facility] Comment on above: Non- GFR Calc Thyroid Stimulating Hormone (TSH) 1.73 uIU/mL 0.358-3.74 [facility] Platelets bldOrdered By: Willy Casanova on 07-03-2023 Platelets (Bld) [#/Vol] 221 10*3/uL 150-450 [facility] Serum or plasma albumin ayana urement (mass/volume)Ordered By: Marques Casanova on 07-03-2023 Albumin [Mass/Vol] 3.9 g/dL 3.2-5.0 [facility] Serum or plasma albumin/glob ulin mass ratioOrdered By: Marques Casanova on 07-03-2023 Albumin/Globulin [Mass ratio] 1.4 {ratio} 0.9-2.4 [facility] Serum or plasma calcium ayana urement (mass/volume)Ordered By: Marques Casanova on 07-03-2023 Calcium [Mass/Vol] 9.5 mg/dL 8.5-10.1 [facility] Serum or plasma cholesterol in HDL measurement (mass/volume)on 07-03-2023 Cholesterol in HDL [Mass/Vol] 32 mg/dL >40 [facility] Comment on above: The drugs N-Acetylcy steine and Metamizole may falsely depress this assay. Reference Range HDL <40 mg/dL Low HDL Cholesterol HDL >or= 60 mg/dL High HDL Cholesterol Serum or plasma cholesterol in VLDL measurement (mass/volume)on 07-03-2023 Cholesterol in VLDL [Mass/Vol] 58 mg/dL 5-40 [facility] Serum or plasma creatinine m easurement (mass/volume)Ordered By: Marques Casanova on 07-03-2023 Creatinine [Mass/Vol] 2.65 mg/dL 0.70-1.30 [facility] Comment on above: The validity of the calculated GFR & GFRAA in patients over 70 years has not been determined. Clinical correlation is essential. Serum or plasma low density lipoprotein (LDL) cholesterol measurement (mass/volume)on 07-03-2023 Cholesterol in LDL [Mass/Vol] 25 mg/dL 0-130 [facility] Serum or plasma urea nitroge n measurement (mass/volume)Ordered By: Marques Casanova on 07-03-2023 Urea nitrogen [Mass/Vol] 36 mg/dL 7-18 [facility] Thin prep Papanicolaou smear with manual screeningOrdered By: Marques Casanova on 07-03-2023 Thin prep Papanicolaou smear with manual screening 12 U/L 15-37 [facility] Thin prep Papanicolaou smear with manual screening 13 5-15 [facility] Urine creatinine measurement (mass/volume)on 07-03-2023 Creatinine (U) [Mass/Vol] 90.50 mg/dL NO RANGE EST. [facility] Urine protein measurement (m ass/volume)on 07-03-2023 Protein (U) [Mass/Vol] 9.1 mg/dL 0.0-11.8 [facility] Urine protein/creatinine mas s ratioon 07-03-2023 Protein/Creatinine (U) [Mass ratio] 101 mg/g CRE 0-200 [facility] Whole blood hemoglobin A1c/t otal hemoglobin ratio (mass fraction)on 07-03-2023 HbA1c (Bld) [Mass fraction] 7.0 % 3.8-5.6 [facility] Comment on above: Normal < 5.7 % Predi abetic 5.7 - 6.4 % Diabetic >or= 6.5 % Please note range changes. Absolute lymphocyte counton 04-08-2023 Lymphocytes Auto (Unsp spec) [#/Vol] 1.37 10*3/uL 0.83-4.51 [facility] Basophil percentageon 2022 Basophil percentage 3.5 mg/dL 2.5-4.9 [facility] Basophils/100 WBC (Bld) 0.7 % 0-1 [facility] Chloride [Moles/Vol] 105 mmol/L 98-107 [facility] Eosinophils/100 WBC (Bld) 2.2 % 0-5 [facility] Glucose [Mass/Vol] 136 mg/dL 74-106 [facility] Comment on above: Fasting Glucose resu lt greater than or equal to 126 mg/dL suggests DIABETES MELLITUS per A.D.A. criteria. Neutrophils (Bld) [#/Vol] 9.1 10*3/uL 2.0-7.7 [facility] Neutrophils/100 WBC (Bld) 74.6 % 47-70 [facility] Potassium [Moles/Vol] 3.4 mmol/L 3.5-5.1 [facility] Sodium [Moles/Vol] 141 mmol/L 136-145 [facility] WBC (Bld) [#/Vol] 12.1 10*3/uL 4.4-11.0 [facility] Blood erythrocytes count (nu mber/volume)on 04-08-2023 RBC (Bld) [#/Vol] 5.48 10*6/uL 4.6-6.2 [facility] Blood hemoglobin measurement (mass/volume)on 04-08-2023 Hemoglobin (Bld) [Mass/Vol] 14.6 g/dL 13.0-16.5 [facility] Blood lymphocytes/100 leukoc yteson 04-08-2023 Lymphocytes/100 WBC (Bld) 11.3 % 19-41 [facility] Blood monocytes/100 leukocyt eson 04-08-2023 Monocytes/100 WBC (Bld) 10.6 % 0-10 [facility] Blood platelet mean volumeon 04-08-2023 Platelet mean volume (Bld) [Entitic vol] 10.1 fL 6.2-12.0 [facility] Determination of erythrocyte mean corpuscular volume (MCV)on 04-08-2023 MCV (RBC) [Entitic vol] 85.0 fL 80-94 [facility] Hematocrit Auto (Bld) [Volum e fraction]on 04-08-2023 Hematocrit (Bld) [Volume fraction] 46.6 % 40-54 [facility] Laboratory - Chemistry and C hemistry - challengeon 04-08-2023 CO2 [Moles/Vol] 26.0 mmol/L 21.0-32.0 [facility] Magnesium [Mass/Vol] 1.6 mg/dL 1.6-2.6 [facility] Urea nitrogen/Creatinine [Mass ratio] 19.5 mg/mg 10-20 [facility] Laboratory - Hematology and Cell countson 04-08-2023 Erythrocyte distribution width (RBC) [Entitic vol] 44.4 fL 35.1-43.9 [facility] Erythrocyte distribution width (RBC) [Ratio] 14.4 % 11.6-14.6 [facility] Immature granulocytes/100 WBC (Bld) 0.600 % 0.0-0.9 [facility] Comment on above: IG% - Immature Granu locytes (promyelocytes, myelocytes and metamyelocytes) > 1% indicates that a LEFT SHIFT is Present. MCH (RBC) [Entitic mass] 26.6 pg 27.0-32.0 [facility] Nucleated RBC/100 WBC (Bld) [Ratio] 0 % 0-5 [facility] MCHC Auto (RBC) [Mass/Vol]on 04-08-2023 MCHC (RBC) [Mass/Vol] 31.3 g/dL 32-36 [facility] No Panel Informationon 04-08 Estimated GFR (MDRD) Amer 45 mL/min >60 [facility] Comment on above: GFR Calc Estimated GFR (MDRD) Non-Af Amer 37 mL/min >60 [facility] Comment on above: Non- GFR Calc Tacrolimus (Prograf) Level 6.8 ng/mL 2.0-20.0 [facility] Comment on above: Trough (immediately following transplant) 15.0 Trough (steady state, 2 weeks or more after transplant): 3.0 - 8.0 Performed by LC-MS/MS technology.Performed at: [employer] [id number] Director: Leticia Tee MD, Phone: [phone] Platelets bldon 04-08-2023 Platelets (Bld) [#/Vol] 236 10*3/uL 150-450 [facility] Serum or plasma calcium ayana urement (mass/volume)on 04-08-2023 Calcium [Mass/Vol] 8.4 mg/dL 8.5-10.1 [facility] Serum or plasma creatinine m easurement (mass/volume)on 04-08-2023 Creatinine [Mass/Vol] 1.95 mg/dL 0.70-1.30 [facility] Comment on above: The validity of the calculated GFR & GFRAA in patients over 70 years has not been determined. Clinical correlation is essential. Serum or plasma urea nitroge n measurement (mass/volume)on 04-08-2023 Urea nitrogen [Mass/Vol] 38 mg/dL 7-18 [facility] Thin prep Papanicolaou smear with manual screeningon 04-08-2023 Thin prep Papanicolaou smear with manual screening 10 - [facility] Whole blood hemoglobin A1c/t otal hemoglobin ratio (mass fraction)Ordered By: Ami Contreras on 04-08-2023 HbA1c (Bld) [Mass fraction] 6.8 % 3.8-5.6 [facility] Comment on above: Normal < 5.7 % Predi abetic 5.7 - 6.4 % Diabetic >or= 6.5 % Please note range changes. Absolute lymphocyte counton 02-12-2023 Lymphocytes Auto (Unsp spec) [#/Vol] 1.24 10*3/uL 0.83-4.51 [facility] Basophil percentageon 2022 Basophils/100 WBC (Bld) 0.5 % 0-1 [facility] Chloride [Moles/Vol] 109 mmol/L 98-107 [facility] Eosinophils/100 WBC (Bld) 1.7 % 0-5 [facility] Glucose [Mass/Vol] 128 mg/dL 74-106 [facility] Comment on above: Fasting Glucose resu lt greater than or equal to 126 mg/dL suggests DIABETES MELLITUS per A.D.A. criteria. Neutrophils (Bld) [#/Vol] 7.5 10*3/uL 2.0-7.7 [facility] Neutrophils/100 WBC (Bld) 75.5 % 47-70 [facility] Potassium [Moles/Vol] 3.4 mmol/L 3.5-5.1 [facility] Sodium [Moles/Vol] 142 mmol/L 136-145 [facility] WBC (Bld) [#/Vol] 10.0 10*3/uL 4.4-11.0 [facility] Blood erythrocytes count (nu mber/volume)on 02-12-2023 RBC (Bld) [#/Vol] 5.39 10*6/uL 4.6-6.2 [facility] Blood hemoglobin measurement (mass/volume)on 02-12-2023 Hemoglobin (Bld) [Mass/Vol] 14.2 g/dL 13.0-16.5 [facility] Blood lymphocytes/100 leukoc yteson 02-12-2023 Lymphocytes/100 WBC (Bld) 12.5 % 19-41 [facility] Blood monocytes/100 leukocyt eson 02-12-2023 Monocytes/100 WBC (Bld) 9.4 % 0-10 [facility] Blood platelet mean volumeon 02-12-2023 Platelet mean volume (Bld) [Entitic vol] 10.4 fL 6.2-12.0 [facility] Determination of erythrocyte mean corpuscular volume (MCV)on 02-12-2023 MCV (RBC) [Entitic vol] 85.0 fL 80-94 [facility] Hematocrit Auto (Bld) [Volum e fraction]on 02-12-2023 Hematocrit (Bld) [Volume fraction] 45.8 % 40-54 [facility] Laboratory - Chemistry and C hemistry - challengeon 02-12-2023 CO2 [Moles/Vol] 25.0 mmol/L 21.0-32.0 [facility] Laboratory - Hematology and Cell countson 02-12-2023 Erythrocyte distribution width (RBC) [Entitic vol] 44.0 fL 35.1-43.9 [facility] Erythrocyte distribution width (RBC) [Ratio] 14.4 % 11.6-14.6 [facility] Immature granulocytes/100 WBC (Bld) 0.400 % 0.0-0.9 [facility] Comment on above: IG% - Immature Granu locytes (promyelocytes, myelocytes and metamyelocytes) > 1% indicates that a LEFT SHIFT is Present. MCH (RBC) [Entitic mass] 26.3 pg 27.0-32.0 [facility] Nucleated RBC/100 WBC (Bld) [Ratio] 0 % 0-5 [facility] MCHC Auto (RBC) [Mass/Vol]on 02-12-2023 MCHC (RBC) [Mass/Vol] 31.0 g/dL 32-36 [facility] No Panel Informationon 02-12 Estimated GFR (MDRD) Amer 41 mL/min >60 [facility] Comment on above: GFR Calc Estimated GFR (MDRD) Non-Af Amer 34 mL/min >60 [facility] Comment on above: Non- GFR Calc Tacrolimus (Prograf) Level 6.9 ng/mL 2.0-20.0 [facility] Comment on above: Trough (immediately following transplant) 15.0 Trough (steady state, 2 weeks or more after transplant): 3.0 - 8.0 Performed by LC-MS/MS technology.Performed at: [employer] [address] [id number] Director: Leticia Tee MD, Phone: [phone] Platelets bldon 02-12-2023 Platelets (Bld) [#/Vol] 225 10*3/uL 150-450 [facility] Serum or plasma creatinine m easurement (mass/volume)on 02-12-2023 Creatinine [Mass/Vol] 2.11 mg/dL 0.70-1.30 [facility] Comment on above: The validity of the calculated GFR & GFRAA in patients over 70 years has not been determined. Clinical correlation is essential. Serum or plasma urea nitroge n measurement (mass/volume)on 02-12-2023 Urea nitrogen [Mass/Vol] 37 mg/dL 7-18 [facility] Thin prep Papanicolaou smear with manual screeningon 02-12-2023 Thin prep Papanicolaou smear with manual screening 8 5-15 [facility] Basophil percentageOrdered B y: Dr. Casanova on 01-22-2023 Bilirubin [Mass/Vol] 0.70 mg/dL 0.20-1.00 [facility] Comment on above: For patients on eltr ombopag therapy, use of Dimension [place] TBIL is not recommended. Chloride [Moles/Vol] 107 mmol/L 98-107 [facility] Cholesterol [Mass/Vol] 139 mg/dL <200 [facility] Comment on above: <200 mg/dL Desirable 200-240 mg/dL Borderline >240 mg/dL High Risk Glucose [Mass/Vol] 91 mg/dL 74-106 [facility] Potassium [Moles/Vol] 3.6 mmol/L 3.5-5.1 [facility] Protein [Mass/Vol] 7.0 g/dL 6.4-8.2 [facility] Sodium [Moles/Vol] 142 mmol/L 136-145 [facility] Triglyceride [Mass/Vol] 226 mg/dL <199 [facility] Comment on above: The drugs N-Acetylcy steine and Metamizole may falsely depress this assay.Serum Triglycerides Reference Interval Normal <150 mg/dL Borderline high 150 - 199 mg/dL High 200 - 499 mg/dL Very High > or = 500 mg/dL Laboratory - Chemistry and C hemistry - challengeOrdered By: Dr. Casanova on 01-22-2023 ALP [Catalytic activity/Vol] 136 U/L 45-117 [facility] ALT [Catalytic activity/Vol] 23 U/L 16-61 [facility] CO2 [Moles/Vol] 24.0 mmol/L 21.0-32.0 [facility] Globulin (S) [Mass/Vol] 3.2 g/dL 2.2-4.2 [facility] Urea nitrogen/Creatinine [Mass ratio] 15.5 mg/mg 10-20 [facility] Laboratory - Chemistry and C hemistry - challengeOrdered By: Ami Contreras on 01-22-2023 Free T4 [Mass/Vol] 1.22 ng/dL 0.76-1.46 [facility] No Panel InformationOrdered By: Dr. Casanova on 01-22-2023 Estimated GFR (MDRD) Amer 41 mL/min >60 [facility] Comment on above: GFR Calc Estimated GFR (MDRD) Non-Af Amer 34 mL/min >60 [facility] Comment on above: Non- GFR Calc No Panel InformationOrdered By: Ami Contreras on 01-22-2023 Parathyroid Hormone (Intact) 393.1 pg/mL 18.4-80.1 [facility] Thyroid Stimulating Hormone (TSH) 0.38 uIU/mL 0.358-3.74 [facility] Vitamin D 25-Hydroxy 16.7 ng/mL [facility] Comment on above: Vitamin D 25(OH) Sta tus Range Deficiency <20 ng/mL (50nmol/L) Insufficiency 20 - 30 ng/mL (50 - 75 nmol/L) Sufficiency 30 - 100 ng/mL (75 - 250 nmol/L) Toxicity >100 ng/mL (>250 nmol/L) Serum or plasma albumin ayana urement (mass/volume)Ordered By: Dr. Casanova on 01-22-2023 Albumin [Mass/Vol] 3.8 g/dL 3.2-5.0 [facility] Serum or plasma albumin/glob ulin mass ratioOrdered By: Dr. Casanova on 01-22-2023 Albumin/Globulin [Mass ratio] 1.2 {ratio} 0.9-2.4 [facility] Serum or plasma calcitriol m easurement (mass/volume)Ordered By: Ami Contreras on 01-22-2023 1,25-dihydroxyvitamin D3 [Mass/Vol] 50.8 pg/mL 24.8-81.5 [facility] Comment on above: Performed at: [address] [id number] Director: Leticia Tee MD, Phone: [phone] Serum or plasma calcium ayana urement (mass/volume)Ordered By: Dr. Casanova on 01-22-2023 Calcium [Mass/Vol] 9.3 mg/dL 8.5-10.1 [facility] Serum or plasma cholesterol in HDL measurement (mass/volume)Ordered By: Dr. Casanova on 01-22-2023 Cholesterol in HDL [Mass/Vol] 32 mg/dL >40 [facility] Comment on above: The drugs N-Acetylcy steine and Metamizole may falsely depress this assay. Reference Range HDL <40 mg/dL Low HDL Cholesterol HDL >or= 60 mg/dL High HDL Cholesterol Serum or plasma cholesterol in VLDL measurement (mass/volume)Ordered By: Dr. Casanova on 01-22-2023 Cholesterol in VLDL [Mass/Vol] 45 mg/dL 5-40 [facility] Serum or plasma creatinine m easurement (mass/volume)Ordered By: Dr. Casanova on 01-22-2023 Creatinine [Mass/Vol] 2.13 mg/dL 0.70-1.30 [facility] Comment on above: The validity of the calculated GFR & GFRAA in patients over 70 years has not been determined. Clinical correlation is essential. Serum or plasma low density lipoprotein (LDL) cholesterol measurement (mass/volume)Ordered By: Dr. Casanova on 01-22-2023 Cholesterol in LDL [Mass/Vol] 62 mg/dL 0-130 [facility] Serum or plasma urea nitroge n measurement (mass/volume)Ordered By: Dr. Casanova on 01-22-2023 Urea nitrogen [Mass/Vol] 33 mg/dL 7-18 [facility] Thin prep Papanicolaou smear with manual screeningOrdered By: Dr. Casanova on 01-22-2023 Thin prep Papanicolaou smear with manual screening 16 U/L 15-37 [facility] Thin prep Papanicolaou smear with manual screening 11 5-15 [facility] Whole blood hemoglobin A1c/t otal hemoglobin ratio (mass fraction)Ordered By: Dr. Casanova on 01-22-2023 HbA1c (Bld) [Mass fraction] 7.0 % 3.8-5.6 [facility] Comment on above: Normal < 5.7 % Predi abetic 5.7 - 6.4 % Diabetic >or= 6.5 % Please note range changes. Laboratory - Hematology and Cell countson 01-10-2023 HbA1c (Bld) [Mass fraction] 7.2 % [facility] Absolute lymphocyte counton 02-06-2023 Lymphocytes Auto (Unsp spec) [#/Vol] 1.03 10*3/uL 0.83-4.51 [facility] Basophil percentageon 2022 Basophil percentage 3.5 mg/dL 2.5-4.9 [facility] Basophils/100 WBC (Bld) 0.4 % 0-1 [facility] Bilirubin [Mass/Vol] 0.60 mg/dL 0.20-1.00 [facility] Comment on above: For patients on eltr ombopag therapy, use of Dim[place] TBIL is not recommended. Chloride [Moles/Vol] 107 mmol/L 98-107 [facility] Cholesterol [Mass/Vol] 120 mg/dL <200 [facility] Comment on above: <200 mg/dL Desirable 200-240 mg/dL Borderline >240 mg/dL High Risk Eosinophils/100 WBC (Bld) 1.1 % 0-5 [facility] Glucose [Mass/Vol] 144 mg/dL 74-106 [facility] Comment on above: Fasting Glucose resu lt greater than or equal to 126 mg/dL suggests DIABETES MELLITUS per A.D.A. criteria. Neutrophils (Bld) [#/Vol] 9.0 10*3/uL 2.0-7.7 [facility] Neutrophils/100 WBC (Bld) 79.5 % 47-70 [facility] Potassium [Moles/Vol] 3.2 mmol/L 3.5-5.1 [facility] Protein [Mass/Vol] 6.4 g/dL 6.4-8.2 [facility] Sodium [Moles/Vol] 143 mmol/L 136-145 [facility] Triglyceride [Mass/Vol] 251 mg/dL <199 [facility] Comment on above: The drugs N-Acetylcy steine and Metamizole may falsely depress this assay.Serum Triglycerides Reference Interval Normal <150 mg/dL Borderline high 150 - 199 mg/dL High 200 - 499 mg/dL Very High > or = 500 mg/dL WBC (Bld) [#/Vol] 11.4 10*3/uL 4.4-11.0 [facility] Blood erythrocytes count (nu mber/volume)on 12-31-2022 RBC (Bld) [#/Vol] 5.58 10*6/uL 4.6-6.2 [facility] Blood hemoglobin measurement (mass/volume)on 12-31-2022 Hemoglobin (Bld) [Mass/Vol] 14.5 g/dL 13.0-16.5 [facility] Blood lymphocytes/100 leukoc yteson 12-31-2022 Lymphocytes/100 WBC (Bld) 9.1 % 19-41 [facility] Blood monocytes/100 leukocyt eson 12-31-2022 Monocytes/100 WBC (Bld) 8.9 % 0-10 [facility] Blood platelet mean volumeon 12-31-2022 Platelet mean volume (Bld) [Entitic vol] 10.5 fL 6.2-12.0 [facility] Determination of erythrocyte mean corpuscular volume (MCV)on 12-31-2022 MCV (RBC) [Entitic vol] 84.4 fL 80-94 [facility] Hematocrit Auto (Bld) [Volum e fraction]on 12-31-2022 Hematocrit (Bld) [Volume fraction] 47.1 % 40-54 [facility] Iron measurement (mass/mass) on 12-31-2022 Iron (Unsp spec) [Mass/Mass] 70 ug/dL 65-175 [facility] Laboratory - Chemistry and C hemistry - challengeon 12-31-2022 ALP [Catalytic activity/Vol] 131 U/L 45-117 [facility] ALT [Catalytic activity/Vol] 26 U/L 16-61 [facility] CO2 [Moles/Vol] 25.0 mmol/L 21.0-32.0 [facility] Globulin (S) [Mass/Vol] 2.8 g/dL 2.2-4.2 [facility] Magnesium [Mass/Vol] 1.5 mg/dL 1.6-2.6 [facility] Transferrin [Mass/Vol] 190 mg/dL 177-329 [facility] Comment on above: Performed at: [facility] [address] [id number] Director: Leticia Tee MD, Phone: [phone] at: [facility] [id number] Director: Mitchell Hale PhD, Phone: [phone] Urea nitrogen/Creatinine [Mass ratio] 19.2 mg/mg 10-20 [facility] Laboratory - Hematology and Cell countson 12-31-2022 Erythrocyte distribution width (RBC) [Entitic vol] 44.3 fL 35.1-43.9 [facility] Erythrocyte distribution width (RBC) [Ratio] 14.6 % 11.6-14.6 [facility] Immature granulocytes/100 WBC (Bld) 1.000 % 0.0-0.9 [facility] Comment on above: IG% - Immature Granu locytes (promyelocytes, myelocytes and metamyelocytes) > 1% indicates that a LEFT SHIFT is Present. MCH (RBC) [Entitic mass] 26.0 pg 27.0-32.0 [facility] Nucleated RBC/100 WBC (Bld) [Ratio] 0 % 0-5 [facility] MCHC Auto (RBC) [Mass/Vol]on 12-31-2022 MCHC (RBC) [Mass/Vol] 30.8 g/dL 32-36 [facility] No Panel Informationon 12-31 Estimated GFR (MDRD) Amer 37 mL/min >60 [facility] Comment on above: GFR Calc Estimated GFR (MDRD) Non-Af Amer 30 mL/min >60 [facility] Comment on above: Non- GFR Calc Miscellaneous Test See comment [facility] Comment on above: TEST RESULTS LIMITSB KV Quant PCRBKV DNA, Quant PCR, Plasma Negative IU/mL NegativeNo BK DNA detected.The linear range of the assay is 22 - 100,000,000 IU/mL. [facility] ORIGINAL REPORT ON FILE IN LAB CONTAINS ADDITIONAL TEST SITE INFORMATION. Tacrolimus (Prograf) Level 6.8 ng/mL 2.0-20.0 [facility] Comment on above: Trough (immediately following transplant) 15.0 Trough (steady state, 2 weeks or more after transplant): 3.0 - 8.0 Performed by LC-MS/MS technology. Total Iron Binding Capacity 256 ug/dL 250-450 [facility] Platelets bldon 12-31-2022 Platelets (Bld) [#/Vol] 245 10*3/uL 150-450 [facility] Serum or plasma albumin ayana urement (mass/volume)on 12-31-2022 Albumin [Mass/Vol] 3.6 g/dL 3.2-5.0 [facility] Serum or plasma albumin/glob ulin mass ratioon 12-31-2022 Albumin/Globulin [Mass ratio] 1.3 {ratio} 0.9-2.4 [facility] Serum or plasma calcium ayana urement (mass/volume)on 12-31-2022 Calcium [Mass/Vol] 8.8 mg/dL 8.5-10.1 [facility] Serum or plasma cholesterol in HDL measurement (mass/volume)on 12-31-2022 Cholesterol in HDL [Mass/Vol] 27 mg/dL >40 [facility] Comment on above: The drugs N-Acetylcy steine and Metamizole may falsely depress this assay. Reference Range HDL <40 mg/dL Low HDL Cholesterol HDL >or= 60 mg/dL High HDL Cholesterol Serum or plasma cholesterol in VLDL measurement (mass/volume)on 12-31-2022 Cholesterol in VLDL [Mass/Vol] 50 mg/dL 5-40 [facility] Serum or plasma creatinine m easurement (mass/volume)on 12-31-2022 Creatinine [Mass/Vol] 2.34 mg/dL 0.70-1.30 [facility] Comment on above: The validity of the calculated GFR & GFRAA in patients over 70 years has not been determined. Clinical correlation is essential. Serum or plasma ferritin uri surement (mass/volume)on 12-31-2022 Ferritin [Mass/Vol] 264 ng/mL 26-388 [facility] Serum or plasma low density lipoprotein (LDL) cholesterol measurement (mass/volume)on 12-31-2022 Cholesterol in LDL [Mass/Vol] 43 mg/dL 0-130 [facility] Serum or plasma urea nitroge n measurement (mass/volume)on 12-31-2022 Urea nitrogen [Mass/Vol] 45 mg/dL 7-18 [facility] Serum or plasma uric acid me asurement (mass/volume)on 12-31-2022 Urate [Mass/Vol] 12.0 mg/dL 3.5-7.2 [facility] Comment on above: The drugs N-Acetylcy steine and Metamizole may falsely depress this assay. Thin prep Papanicolaou smear with manual screeningon 12-31-2022 Thin prep Papanicolaou smear with manual screening 13 U/L 15-37 [facility] Thin prep Papanicolaou smear with manual screening 11 5-15 [facility] Basophil percentageOrdered B y: Dr. Casanova on 11-29-2022 Bilirubin [Mass/Vol] 0.80 mg/dL 0.20-1.00 [facility] Comment on above: For patients on eltr ombopag therapy, use of [place] TBIL is not recommended. Chloride [Moles/Vol] 106 mmol/L 98-107 [facility] Glucose [Mass/Vol] 187 mg/dL 74-106 [facility] Comment on above: Fasting Glucose resu lt greater than or equal to 126 mg/dL suggests DIABETES MELLITUS per A.D.A. criteria. Potassium [Moles/Vol] 3.6 mmol/L 3.5-5.1 [facility] Protein [Mass/Vol] 6.6 g/dL 6.4-8.2 [facility] Sodium [Moles/Vol] 140 mmol/L 136-145 [facility] Laboratory - Chemistry and C hemistry - challengeOrdered By: Dr. Casanova on 11-29-2022 ALP [Catalytic activity/Vol] 152 U/L 45-117 [facility] ALT [Catalytic activity/Vol] 27 U/L 16-61 [facility] CO2 [Moles/Vol] 25.0 mmol/L 21.0-32.0 [facility] Globulin (S) [Mass/Vol] 2.5 g/dL 2.2-4.2 [facility] Urea nitrogen/Creatinine [Mass ratio] 16.9 mg/mg 10-20 [facility] No Panel InformationOrdered By: Dr. Casanova on 11-29-2022 Estimated GFR (MDRD) Amer 37 mL/min >60 [facility] Comment on above: GFR Calc Estimated GFR (MDRD) Non-Af Amer 31 mL/min >60 [facility] Comment on above: Non- GFR Calc Serum or plasma albumin ayana urement (mass/volume)Ordered By: Dr. Casanova on 11-29-2022 Albumin [Mass/Vol] 4.1 g/dL 3.2-5.0 [facility] Serum or plasma albumin/glob ulin mass ratioOrdered By: Dr. Casanova on 11-29-2022 Albumin/Globulin [Mass ratio] 1.6 {ratio} 0.9-2.4 [facility] Serum or plasma calcium ayana urement (mass/volume)Ordered By: Dr. Casanova on 11-29-2022 Calcium [Mass/Vol] 9.0 mg/dL 8.5-10.1 [facility] Serum or plasma creatinine m easurement (mass/volume)Ordered By: Dr. Casanova on 11-29-2022 Creatinine [Mass/Vol] 2.31 mg/dL 0.70-1.30 [facility] Comment on above: The validity of the calculated GFR & GFRAA in patients over 70 years has not been determined. Clinical correlation is essential. Serum or plasma urea nitroge n measurement (mass/volume)Ordered By: Dr. Casanova on 11-29-2022 Urea nitrogen [Mass/Vol] 39 mg/dL 7-18 [facility] Thin prep Papanicolaou smear with manual screeningOrdered By: Dr. Casanova on 11-29-2022 Thin prep Papanicolaou smear with manual screening 12 U/L 15-37 [facility] Thin prep Papanicolaou smear with manual screening 9 5-15 [facility] Absolute lymphocyte counton 11-12-2022 Lymphocytes Auto (Unsp spec) [#/Vol] 0.81 10*3/uL 0.83-4.51 [facility] Basophil percentageon 2021 Basophils/100 WBC (Bld) 0.6 % 0-1 [facility] Chloride [Moles/Vol] 107 mmol/L 98-107 [facility] Eosinophils/100 WBC (Bld) 2.0 % 0-5 [facility] Glucose [Mass/Vol] 142 mg/dL 74-106 [facility] Comment on above: Fasting Glucose resu lt greater than or equal to 126 mg/dL suggests DIABETES MELLITUS per A.D.A. criteria. Neutrophils (Bld) [#/Vol] 6.8 10*3/uL 2.0-7.7 [facility] Neutrophils/100 WBC (Bld) 75.4 % 47-70 [facility] Potassium [Moles/Vol] 3.3 mmol/L 3.5-5.1 [facility] Sodium [Moles/Vol] 142 mmol/L 136-145 [facility] WBC (Bld) [#/Vol] 9.0 10*3/uL 4.4-11.0 [facility] Blood erythrocytes count (nu mber/volume)on 11-12-2022 RBC (Bld) [#/Vol] 5.60 10*6/uL 4.6-6.2 [facility] Blood hemoglobin measurement (mass/volume)on 11-12-2022 Hemoglobin (Bld) [Mass/Vol] 14.4 g/dL 13.0-16.5 [facility] Blood lymphocytes/100 leukoc yteson 11-12-2022 Lymphocytes/100 WBC (Bld) 9.0 % 19-41 [facility] Blood monocytes/100 leukocyt eson 11-12-2022 Monocytes/100 WBC (Bld) 12.4 % 0-10 [facility] Blood platelet mean volumeon 11-12-2022 Platelet mean volume (Bld) [Entitic vol] 10.0 fL 6.2-12.0 [facility] Determination of erythrocyte mean corpuscular volume (MCV)on 11-12-2022 MCV (RBC) [Entitic vol] 83.8 fL 80-94 [facility] Hematocrit Auto (Bld) [Volum e fraction]on 11-12-2022 Hematocrit (Bld) [Volume fraction] 46.9 % 40-54 [facility] Laboratory - Chemistry and C hemistry - challengeon 11-12-2022 CO2 [Moles/Vol] 28.0 mmol/L 21.0-32.0 [facility] Laboratory - Hematology and Cell countson 11-12-2022 Erythrocyte distribution width (RBC) [Entitic vol] 43.4 fL 35.1-43.9 [facility] Erythrocyte distribution width (RBC) [Ratio] 14.3 % 11.6-14.6 [facility] Immature granulocytes/100 WBC (Bld) 0.600 % 0.0-0.9 [facility] Comment on above: IG% - Immature Granu locytes (promyelocytes, myelocytes and metamyelocytes) > 1% indicates that a LEFT SHIFT is Present. MCH (RBC) [Entitic mass] 25.7 pg 27.0-32.0 [facility] Nucleated RBC/100 WBC (Bld) [Ratio] 0 % 0-5 [facility] MCHC Auto (RBC) [Mass/Vol]on 11-12-2022 MCHC (RBC) [Mass/Vol] 30.7 g/dL 32-36 [facility] No Panel Informationon 11-12 Estimated GFR (MDRD) Amer 40 mL/min >60 [facility] Comment on above: GFR Calc Estimated GFR (MDRD) Non-Af Amer 33 mL/min >60 [facility] Comment on above: Non- GFR Calc Tacrolimus (Prograf) Level 5.2 ng/mL 2.0-20.0 [facility] Comment on above: Trough (immediately following transplant) 15.0 Trough (steady state, 2 weeks or more after transplant): 3.0 - 8.0 Performed by LC-MS/MS technology.Performed at: [address] [id number] Director: Leticia Tee MD, Phone: [phone] Platelets bldon 11-12-2022 Platelets (Bld) [#/Vol] 189 10*3/uL 150-450 [facility] Serum or plasma creatinine m easurement (mass/volume)on 11-12-2022 Creatinine [Mass/Vol] 2.17 mg/dL 0.70-1.30 [facility] Comment on above: The validity of the calculated GFR & GFRAA in patients over 70 years has not been determined. Clinical correlation is essential. Serum or plasma urea nitroge n measurement (mass/volume)on 11-12-2022 Urea nitrogen [Mass/Vol] 43 mg/dL 7-18 [facility] Thin prep Papanicolaou smear with manual screeningon 11-12-2022 Thin prep Papanicolaou smear with manual screening 7 -15 [facility] Laboratory - Hematology and Cell countson 10-08-2022 HbA1c (Bld) [Mass fraction] 6.7 % [facility] URINE PROTEIN/CREA RATIO, RA NDOMon 09-17-2022 Creatinine (24H U) [Mass/Vol] 43.31 mg/dL [facility] Protein Unsp time (U) [Mass/Vol] 5 mg/dL [facility] Protein/Creatinine (U) [Mass ratio] [facility] Absolute lymphocyte counton 09-04-2022 Lymphocytes Auto (Unsp spec) [#/Vol] 1.12 10*3/uL 0.83-4.51 [facility] Basophil percentageon 2021 Basophil percentage 4.3 mg/dL 2.5-4.9 [facility] Basophils/100 WBC (Bld) 0.7 % 0-1 [facility] Bilirubin [Mass/Vol] 0.40 mg/dL 0.20-1.00 [facility] Comment on above: For patients on eltr ombopag therapy, use of Dimension [place] TBIL is not recommended. Chloride [Moles/Vol] 107 mmol/L 98-107 [facility] Eosinophils/100 WBC (Bld) 2.7 % 0-5 [facility] Glucose [Mass/Vol] 129 mg/dL 74-106 [facility] Comment on above: Fasting Glucose resu lt greater than or equal to 126 mg/dL suggests DIABETES MELLITUS per A.D.A. criteria. Neutrophils (Bld) [#/Vol] 6.5 10*3/uL 2.0-7.7 [facility] Neutrophils/100 WBC (Bld) 73.2 % 47-70 [facility] Potassium [Moles/Vol] 3.3 mmol/L 3.5-5.1 [facility] Protein [Mass/Vol] 6.2 g/dL 6.4-8.2 [facility] Sodium [Moles/Vol] 141 mmol/L 136-145 [facility] WBC (Bld) [#/Vol] 8.9 10*3/uL 4.4-11.0 [facility] Blood erythrocytes count (nu mber/volume)on 09-04-2022 RBC (Bld) [#/Vol] 5.50 10*6/uL 4.6-6.2 [facility] Blood hemoglobin measurement (mass/volume)on 09-04-2022 Hemoglobin (Bld) [Mass/Vol] 14.3 g/dL 13.0-16.5 [facility] Blood lymphocytes/100 leukoc yteson 09-04-2022 Lymphocytes/100 WBC (Bld) 12.6 % 19-41 [facility] Blood monocytes/100 leukocyt eson 09-04-2022 Monocytes/100 WBC (Bld) 9.8 % 0-10 [facility] Blood platelet mean volumeon 09-04-2022 Platelet mean volume (Bld) [Entitic vol] 10.5 fL 6.2-12.0 [facility] Determination of erythrocyte mean corpuscular volume (MCV)on 09-04-2022 MCV (RBC) [Entitic vol] 84.9 fL 80-94 [facility] Erythrocyte sedimentation ra gisselle 09-04-2022 ESR (Bld) [Velocity] 10 mm/h 0-20 [facility] Hematocrit Auto (Bld) [Volum e fraction]on 09-04-2022 Hematocrit (Bld) [Volume fraction] 46.7 % 40-54 [facility] Laboratory - Chemistry and C hemistry - challengeon 09-04-2022 ALP [Catalytic activity/Vol] 114 U/L 45-117 [facility] ALT [Catalytic activity/Vol] 20 U/L 16-61 [facility] CO2 [Moles/Vol] 25.0 mmol/L 21.0-32.0 [facility] Globulin (S) [Mass/Vol] 2.8 g/dL 2.2-4.2 [facility] Magnesium [Mass/Vol] 1.6 mg/dL 1.6-2.6 [facility] Urea nitrogen/Creatinine [Mass ratio] 16.5 mg/mg 10-20 [facility] Laboratory - Hematology and Cell countson 09-04-2022 Erythrocyte distribution width (RBC) [Entitic vol] 43.8 fL 35.1-43.9 [facility] Erythrocyte distribution width (RBC) [Ratio] 14.3 % 11.6-14.6 [facility] Immature granulocytes/100 WBC (Bld) 1.000 % 0.0-0.9 [facility] Comment on above: IG% - Immature Granu locytes (promyelocytes, myelocytes and metamyelocytes) > 1% indicates that a LEFT SHIFT is Present. MCH (RBC) [Entitic mass] 26.0 pg 27.0-32.0 [facility] Nucleated RBC/100 WBC (Bld) [Ratio] 0 % 0-5 [facility] MCHC Auto (RBC) [Mass/Vol]on 09-04-2022 MCHC (RBC) [Mass/Vol] 30.6 g/dL 32-36 [facility] No Panel Informationon 09-04 Estimated GFR (MDRD) Amer 37 mL/min >60 [facility] Comment on above: GFR Calc Estimated GFR (MDRD) Non-Af Amer 31 mL/min >60 [facility] Comment on above: Non- GFR Calc Tacrolimus (Prograf) Level 5.0 ng/mL 2.0-20.0 [facility] Comment on above: Trough (immediately following transplant) 15.0 Trough (steady state, 2 weeks or more after transplant): 3.0 - 8.0 Performed by LC-MS/MS technology.Performed at: [address] [id number] Director: Leticia Tee MD, Phone: [phone] Platelets bldon 09-04-2022 Platelets (Bld) [#/Vol] 225 10*3/uL 150-450 [facility] Serum or plasma C reactive p rotein measurement (mass/volume)on 09-04-2022 CRP [Mass/Vol] 3.95 mg/L 0.0-3.0 [facility] Comment on above: C-Reactive Protein ( CRP) provides useful information for thediagnosis, therapy and monitoring of inflammatory processesand associated diseases. For the evaluation of Relative Riskfor Cardiovascular Disease, a High Sensitivity CRP (HSCRP)should be ordered. Serum or plasma albumin ayana urement (mass/volume)on 09-04-2022 Albumin [Mass/Vol] 3.4 g/dL 3.2-5.0 [facility] Serum or plasma albumin/glob ulin mass ratioon 09-04-2022 Albumin/Globulin [Mass ratio] 1.2 {ratio} 0.9-2.4 [facility] Serum or plasma calcium ayana urement (mass/volume)on 09-04-2022 Calcium [Mass/Vol] 8.4 mg/dL 8.5-10.1 [facility] Serum or plasma creatinine m easurement (mass/volume)on 09-04-2022 Creatinine [Mass/Vol] 2.31 mg/dL 0.70-1.30 [facility] [place] Comment on above: The validity of the calculated GFR & GFRAA in patients over 70 years has not been determined. Clinical correlation is essential. Serum or plasma urea nitroge n measurement (mass/volume)on 09-04-2022 Urea nitrogen [Mass/Vol] 38 mg/dL 7-18 [facility] Thin prep Papanicolaou smear with manual screeningon 09-04-2022 Thin prep Papanicolaou smear with manual screening 13 U/L 15-37 [facility] Thin prep Papanicolaou smear with manual screening 9 5-15 [facility] Anaerobic cultureOrdered By: Dr. Esparza on 09-03-2022 Bacteria identified Anaer cx Nom (Unsp spec) [facility] Bacterial body fluid culture Ordered By: Dr. Esparza on 09-02-2022 Bacteria identified Cx Nom (Body fld) No growth aerobically. [facility] Gram stain for investigation of transfusion reactionOrdered By: Dr. Esparza on 08-29-2022 Microscopic observation Gram stain Nom (Unsp spec) [facility] Cytology report of Body flui d Cyto stainOrdered By: Dr. Esparza on 08-27-2022 Cytology report Cyto stain Doc (Body fld) SEE PATHOLOGY REPORT [facility] Comment on above: Specimen submitted t o Anatomical Pathology Department for testing. Absolute lymphocyte counton 07-18-2022 Lymphocytes Auto (Unsp spec) [#/Vol] 1.22 10*3/uL 0.83-4.51 [facility] Work Phone: Basophil percentageon 2021 Basophil percentage 3.9 mg/dL 2.5-4.9 [facility] Work Phone: Basophils/100 WBC (Bld) 0.6 % 0-1 [facility] Work Phone: Bilirubin [Mass/Vol] 0.40 mg/dL 0.20-1.00 [facility] Work Phone: Comment on above: For patients on eltr ombopag therapy, use of Dimension [place] TBIL is not recommended. Chloride [Moles/Vol] 109 mmol/L 98-107 [facility] Work Phone: Cholesterol [Mass/Vol] 121 mg/dL <200 [facility] Work Phone: Comment on above: <200 mg/dL Desirable 200-240 mg/dL Borderline >240 mg/dL High Risk Eosinophils/100 WBC (Bld) 2.0 % 0-5 [facility] Work Phone: Glucose [Mass/Vol] 123 mg/dL 74-106 [facility] Work Phone: Comment on above: Fasting Glucose resu lt from 100 to 125 mg/dL suggests IMPAIRED HOMEOSTASIS per A.D.A. criteria. Neutrophils (Bld) [#/Vol] 9.0 10*3/uL 2.0-7.7 [facility] Work Phone: Neutrophils/100 WBC (Bld) 77.4 % 47-70 [facility] Work Phone: Potassium [Moles/Vol] 3.2 mmol/L 3.5-5.1 [facility] [place] Work Phone: Protein [Mass/Vol] 6.4 g/dL 6.4-8.2 [facility] Work Phone: Sodium [Moles/Vol] 141 mmol/L 136-145 [facility] Work Phone: Triglyceride [Mass/Vol] 190 mg/dL <199 [facility] Work Phone: Comment on above: The drugs N-Acetylcy steine and Metamizole may falsely depress this assay.Serum Triglycerides Reference Interval Normal <150 mg/dL Borderline high 150 - 199 mg/dL High 200 - 499 mg/dL Very High > or = 500 mg/dL WBC (Bld) [#/Vol] 11.7 10*3/uL 4.4-11.0 [facility] Work Phone: Blood erythrocytes count (nu mber/volume)on 07-18-2022 RBC (Bld) [#/Vol] 5.56 10*6/uL 4.6-6.2 [facility] Work Phone: Blood hemoglobin measurement (mass/volume)on 07-18-2022 Hemoglobin (Bld) [Mass/Vol] 14.6 g/dL 13.0-16.5 [facility] Work Phone: Blood lymphocytes/100 leukoc yteson 07-18-2022 Lymphocytes/100 WBC (Bld) 10.5 % 19-41 [facility] Work Phone: Blood monocytes/100 leukocyt eson 07-18-2022 Monocytes/100 WBC (Bld) 8.6 % 0-10 [facility] Work Phone: Blood platelet mean volumeon 07-18-2022 Platelet mean volume (Bld) [Entitic vol] 10.5 fL 6.2-12.0 [facility] Work Phone: Determination of erythrocyte mean corpuscular volume (MCV)on 07-18-2022 MCV (RBC) [Entitic vol] 84.7 fL 80-94 [facility] Work Phone: Hematocrit Auto (Bld) [Volum e fraction]on 07-18-2022 Hematocrit (Bld) [Volume fraction] 47.1 % 40-54 [facility] Work Phone: Iron measurement (mass/mass) on 07-18-2022 Iron (Unsp spec) [Mass/Mass] 44 ug/dL 65-175 [facility] Work Phone: Laboratory - Chemistry and C hemistry - challengeon 07-18-2022 ALP [Catalytic activity/Vol] 116 U/L 45-117 [facility] Work Phone: ALT [Catalytic activity/Vol] 21 U/L 16-61 [facility] Work Phone: CO2 [Moles/Vol] 22.0 mmol/L 21.0-32.0 [facility] Work Phone: Globulin (S) [Mass/Vol] 3.0 g/dL 2.2-4.2 [facility] Work Phone: Magnesium [Mass/Vol] 1.6 mg/dL 1.6-2.6 [facility] Work Phone: Transferrin [Mass/Vol] 185 mg/dL 177-329 [facility] Work Phone: Comment on above: Performed at: [address] [id number] Director: Leticia Tee MD, Phone: [phone] at: - [facility] [id number] Director: Mitchell Hale PhD, Phone: [phone] Urea nitrogen/Creatinine [Mass ratio] 22.0 mg/mg 10-20 [facility] Work Phone: Laboratory - Hematology and Cell countson 07-18-2022 Erythrocyte distribution width (RBC) [Entitic vol] 43.1 fL 35.1-43.9 [facility] Work Phone: Erythrocyte distribution width (RBC) [Ratio] 14.0 % 11.6-14.6 [facility] Work Phone: Immature granulocytes/100 WBC (Bld) 0.900 % 0.0-0.9 [facility] Work Phone: Comment on above: IG% - Immature Granu locytes (promyelocytes, myelocytes and metamyelocytes) > 1% indicates that a LEFT SHIFT is Present. MCH (RBC) [Entitic mass] 26.3 pg 27.0-32.0 [facility] Work Phone: Nucleated RBC/100 WBC (Bld) [Ratio] 0 % 0-5 [facility] Work Phone: MCHC Auto (RBC) [Mass/Vol]on 07-18-2022 MCHC (RBC) [Mass/Vol] 31.0 g/dL 32-36 [facility] [place] Work Phone: No Panel Informationon 07-18 Estimated GFR (MDRD) Amer 42 mL/min >60 [facility] Work Phone: Comment on above: GFR Calc Estimated GFR (MDRD) Non-Af Amer 35 mL/min >60 [facility] Work Phone: Comment on above: Non- GFR Calc Miscellaneous Test See [facility] Comment on above: TEST RESULT LIMITSBK V Quant PCR Negative IU/mL Negative No BK DNA detected. The linear range of the assay is 22 - 100,000,000 IU/mL. TESTING PERFORMED AT [facility]. ORIGINAL REPORT ON FILE IN LAB CONTAINS ADDITIONAL TEST SITE INFORMATION. Tacrolimus (Prograf) Level 6.6 ng/mL 2.0-20.0 [facility] Work Phone: Comment on above: Trough (immediately following transplant) 15.0 Trough (steady state, 2 weeks or more after transplant): 3.0 - 8.0 Performed by LC-MS/MS technology. Total Iron Binding Capacity 223 ug/dL 250-450 [facility] Work Phone: Platelets bldon 07-18-2022 Platelets (Bld) [#/Vol] 227 10*3/uL 150-450 [facility] Work Phone: Serum or plasma albumin ayana urement (mass/volume)on 07-18-2022 Albumin [Mass/Vol] 3.4 g/dL 3.2-5.0 [facility] Work Phone: Serum or plasma albumin/glob ulin mass ratioon 07-18-2022 Albumin/Globulin [Mass ratio] 1.1 {ratio} 0.9-2.4 [facility] Work Phone: Serum or plasma calcium ayana urement (mass/volume)on 07-18-2022 Calcium [Mass/Vol] 8.4 mg/dL 8.5-10.1 [facility] Work Phone: Serum or plasma cholesterol in HDL measurement (mass/volume)on 07-18-2022 Cholesterol in HDL [Mass/Vol] 30 mg/dL >40 [facility] Work Phone: Comment on above: The drugs N-Acetylcy steine and Metamizole may falsely depress this assay. Reference Range HDL <40 mg/dL Low HDL Cholesterol HDL >or= 60 mg/dL High HDL Cholesterol Serum or plasma cholesterol in VLDL measurement (mass/volume)on 07-18-2022 Cholesterol in VLDL [Mass/Vol] 38 mg/dL 5-40 [facility] Work Phone: Serum or plasma creatinine m easurement (mass/volume)on 07-18-2022 Creatinine [Mass/Vol] 2.09 mg/dL 0.70-1.30 [facility] [place] Work Phone: Comment on above: The validity of the calculated GFR & GFRAA in patients over 70 years has not been determined. Clinical correlation is essential. Serum or plasma ferritin uri surement (mass/volume)on 07-18-2022 Ferritin [Mass/Vol] 382 ng/mL 26-388 [facility] Work Phone: Serum or plasma low density lipoprotein (LDL) cholesterol measurement (mass/volume)on 07-18-2022 Cholesterol in LDL [Mass/Vol] 53 mg/dL 0-130 [facility] Work Phone: Serum or plasma urea nitroge n measurement (mass/volume)on 07-18-2022 Urea nitrogen [Mass/Vol] 46 mg/dL 7-18 [facility] Work Phone: Serum or plasma uric acid me asurement (mass/volume)on 07-18-2022 Urate [Mass/Vol] 10.1 mg/dL 3.5-7.2 [facility] Work Phone: Comment on above: The drugs N-Acetylcy steine and Metamizole may falsely depress this assay. Thin prep Papanicolaou smear with manual screeningon 07-18-2022 Thin prep Papanicolaou smear with manual screening 12 U/L 15-37 [facility] Work Phone: Thin prep Papanicolaou smear with manual screening 10 5-15 [facility] Work Phone: Urine creatinine measurement (mass/volume)on 07-18-2022 Creatinine (U) [Mass/Vol] 55.10 mg/dL NO RANGE EST. [facility] Work Phone: Urine protein measurement (m ass/volume)on 07-18-2022 Protein (U) [Mass/Vol] 11.2 mg/dL 0.0-11.8 [facility] Work Phone: Urine protein/creatinine mas s ratioon 07-18-2022 Protein/Creatinine (U) [Mass ratio] 203 mg/g CRE 0-200 [facility] Work Phone: Laboratory - Hematology and Cell countson 06-07-2022 HbA1c (Bld) [Mass fraction] 6.6 % [facility] Work Phone: Absolute lymphocyte counton 05-03-2022 Lymphocytes Auto (Unsp spec) [#/Vol] 1.13 10*3/uL 0.83-4.51 [facility] Work Phone: Basophil percentageon 2021 Basophils/100 WBC (Bld) 0.4 % 0-1 [facility] Work Phone: Chloride [Moles/Vol] 107 mmol/L 98-107 [facility] Work Phone: Eosinophils/100 WBC (Bld) 1.3 % 0-5 [facility] Work Phone: Glucose [Mass/Vol] 145 mg/dL 74-106 [facility] Work Phone: Comment on above: Fasting Glucose resu lt greater than or equal to 126 mg/dL suggests DIABETES MELLITUS per A.D.A. criteria. Neutrophils (Bld) [#/Vol] 9.0 10*3/uL 2.0-7.7 [facility] Work Phone: Neutrophils/100 WBC (Bld) 77.7 % 47-70 [facility] Work Phone: [phone] Potassium [Moles/Vol] 3.4 mmol/L 3.5-5.1 [facility] Work [facility]: Sodium [Moles/Vol] 139 mmol/L 136-145 [facility] Work Phone: [phone] WBC (Bld) [#/Vol] 11.6 10*3/uL 4.4-11.0 [facility] Work Phone: Blood erythrocytes count (nu mber/volume)on 05-03-2022 RBC (Bld) [#/Vol] 5.47 10*6/uL 4.6-6.2 [facility] Work Phone: Blood hemoglobin measurement (mass/volume)on 05-03-2022 Hemoglobin (Bld) [Mass/Vol] 15.0 g/dL 13.0-16.5 [facility] Work Phone: [phone] Blood lymphocytes/100 leukoc yteson 05-03-2022 Lymphocytes/100 WBC (Bld) 9.7 % 19-41 [facility] Work Phone: Blood monocytes/100 leukocyt eson 05-03-2022 Monocytes/100 WBC (Bld) 10.2 % 0-10 [facility] Work Phone: Blood platelet mean volumeon 05-03-2022 Platelet mean volume (Bld) [Entitic vol] 9.8 fL 6.2-12.0 [facility] Work Phone: Determination of erythrocyte mean corpuscular volume (MCV)on 05-03-2022 MCV (RBC) [Entitic vol] 85.4 fL 80-94 [facility] Work Phone: Glucose Glucometer (BldC) [M ass/Vol]on 05-03-2022 Glucose [Mass/Vol] 185 mg/dL 74-106 [facility] Work Phone: Comment on above: MANAGEMENT OF PATIEN T CARE PER NURSING PROTOCOL Hematocrit Auto (Bld) [Volum e fraction]on 05-03-2022 Hematocrit (Bld) [Volume fraction] 46.7 % 40-54 [facility] Work Phone: Laboratory - Chemistry and C hemistry - challengeon 05-03-2022 CO2 [Moles/Vol] 23.0 mmol/L 21.0-32.0 [facility] Work Phone: Urea nitrogen/Creatinine [Mass ratio] 20.5 mg/mg 10-20 [facility] Work Phone: Laboratory - Hematology and Cell countson 05-03-2022 Erythrocyte distribution width (RBC) [Entitic vol] 42.3 fL 35.1-43.9 [facility] Work Phone: Erythrocyte distribution width (RBC) [Ratio] 13.5 % 11.6-14.6 [facility] Work Phone: Immature granulocytes/100 WBC (Bld) 0.700 % 0.0-0.9 [facility] Work Phone: Comment on above: IG% - Immature Granu locytes (promyelocytes, myelocytes and metamyelocytes) > 1% indicates that a LEFT SHIFT is Present. MCH (RBC) [Entitic mass] 27.4 pg 27.0-32.0 [facility] Work Phone: Nucleated RBC/100 WBC (Bld) [Ratio] 0 % 0-5 [facility] Work Phone: MCHC Auto (RBC) [Mass/Vol]on 05-03-2022 MCHC (RBC) [Mass/Vol] 32.1 g/dL 32-36 [facility] [place] Work Phone: No Panel Informationon 05-03 Estimated Creatinine Clearance Calc 38.20 ml/min [facility] Work Phone: Estimated GFR (MDRD) Amer 41 mL/min >60 [facility] Work Phone: Comment on above: GFR Calc Estimated GFR (MDRD) Non-Af Amer 34 mL/min >60 [facility] Work Phone: Comment on above: Non- GFR Calc Platelets bldon 05-03-2022 Platelets (Bld) [#/Vol] 194 10*3/uL 150-450 [facility] Work Phone: Serum or plasma calcium ayana urement (mass/volume)on 05-03-2022 Calcium [Mass/Vol] 8.8 mg/dL 8.5-10.1 [facility] Work Phone: Serum or plasma creatinine m easurement (mass/volume)on 05-03-2022 Creatinine [Mass/Vol] 2.15 mg/dL 0.70-1.30 [facility] [place] Work Phone: Comment on above: The validity of the calculated GFR & GFRAA in patients over 70 years has not been determined. Clinical correlation is essential. Serum or plasma urea nitroge n measurement (mass/volume)on 05-03-2022 Urea nitrogen [Mass/Vol] 44 mg/dL 7-18 [facility] Work Phone: Thin prep Papanicolaou smear with manual screeningon 05-03-2022 Thin prep Papanicolaou smear with manual screening 9 5-15 [facility] Work Phone: Absolute lymphocyte counton 05-02-2022 Lymphocytes Auto (Unsp spec) [#/Vol] 0.92 10*3/uL 0.83-4.51 [facility] Work Phone: Basophil percentageon 2021 Basophils/100 WBC (Bld) 0.3 % 0-1 [facility] Work Phone: Bilirubin [Mass/Vol] 0.70 mg/dL 0.20-1.00 [facility] Work Phone: Comment on above: For patients on eltr ombopag therapy, use of Dimension [place] TBIL is not recommended. Chloride [Moles/Vol] 105 mmol/L 98-107 [facility] Work Phone: Eosinophils/100 WBC (Bld) 1.0 % 0-5 [facility] Work Phone: Glucose [Mass/Vol] 168 mg/dL 74-106 [facility] Work Phone: [phone] Comment on above: Fasting Glucose resu lt greater than or equal to 126 mg/dL suggests DIABETES MELLITUS per A.D.A. criteria. Neutrophils (Bld) [#/Vol] 9.4 10*3/uL 2.0-7.7 [facility] Work Phone: Neutrophils/100 WBC (Bld) 81.8 % 47-70 [facility] Work Phone: Potassium [Moles/Vol] 3.2 mmol/L 3.5-5.1 [facility] [place] Work Phone: Protein [Mass/Vol] 6.6 g/dL 6.4-8.2 [facility] Work Phone: Sodium [Moles/Vol] 139 mmol/L 136-145 [facility] Work Phone: [phone] WBC (Bld) [#/Vol] 11.5 10*3/uL 4.4-11.0 [facility] Work Phone: Blood erythrocytes count (nu mber/volume)on 05-02-2022 RBC (Bld) [#/Vol] 5.66 10*6/uL 4.6-6.2 [facility] Work Phone: Blood hemoglobin measurement (mass/volume)on 05-02-2022 Hemoglobin (Bld) [Mass/Vol] 15.3 g/dL 13.0-16.5 [facility] Work Phone: Blood lymphocytes/100 leukoc yteson 05-02-2022 Lymphocytes/100 WBC (Bld) 8.0 % 19-41 [facility] Work Phone: Blood monocytes/100 leukocyt eson 05-02-2022 Monocytes/100 WBC (Bld) 8.4 % 0-10 [facility] Work Phone: Blood platelet mean volumeon 05-02-2022 Platelet mean volume (Bld) [Entitic vol] 10.3 fL 6.2-12.0 [facility] Work Phone: Determination of erythrocyte mean corpuscular volume (MCV)on 05-02-2022 MCV (RBC) [Entitic vol] 88.0 fL 80-94 [facility] Work Phone: Erythrocyte sedimentation ra gisselle 05-02-2022 ESR (Bld) [Velocity] 16 mm/h 0-20 [facility] Work Phone: Hematocrit Auto (Bld) [Volum e fraction]on 05-02-2022 Hematocrit (Bld) [Volume fraction] 49.8 % 40-54 [facility] Work Phone: Laboratory - Chemistry and C hemistry - challengeon 05-02-2022 ALP [Catalytic activity/Vol] 96 U/L 45-117 [facility] Work Phone: ALT [Catalytic activity/Vol] 19 U/L 16-61 [facility] Work Phone: CO2 [Moles/Vol] 24.0 mmol/L 21.0-32.0 [facility] Work Phone: [phone] Globulin (S) [Mass/Vol] 3.1 g/dL 2.2-4.2 [facility] Work Phone: Urea nitrogen/Creatinine [Mass ratio] 22.1 mg/mg 10-20 [facility] Work Phone: Laboratory - Hematology and Cell countson 05-02-2022 Erythrocyte distribution width (RBC) [Entitic vol] 43.3 fL 35.1-43.9 [facility] Work Phone: Erythrocyte distribution width (RBC) [Ratio] 13.5 % 11.6-14.6 [facility] Work Phone: Immature granulocytes/100 WBC (Bld) 0.500 % 0.0-0.9 [facility] Work Phone: Comment on above: IG% - Immature Granu locytes (promyelocytes, myelocytes and metamyelocytes) > 1% indicates that a LEFT SHIFT is Present. MCH (RBC) [Entitic mass] 27.0 pg 27.0-32.0 [facility] Work Phone: Nucleated RBC/100 WBC (Bld) [Ratio] 0 % 0-5 [facility] Work Phone: MCHC Auto (RBC) [Mass/Vol]on 05-02-2022 MCHC (RBC) [Mass/Vol] 30.7 g/dL 32-36 [facility] [place] Work Phone: No Panel Informationon 05-02 Estimated GFR (MDRD) Amer 41 mL/min >60 [facility] Work Phone: Comment on above: GFR Calc Estimated GFR (MDRD) Non-Af Amer 34 mL/min >60 [facility] Work Phone: Comment on above: Non- GFR Calc Tacrolimus (Prograf) Level 6.5 ng/mL 2.0-20.0 [facility] Work Phone: Comment on above: Trough (immediately following transplant) 15.0 Trough (steady state, 2 weeks or more after transplant): 3.0 - 8.0 Performed by LC-MS/MS technology.Performed at: [address] [id number] Director: Leticia Tee MD, Phone: [phone] Platelets bldon 05-02-2022 Platelets (Bld) [#/Vol] 209 10*3/uL 150-450 [facility] Work Phone: Serum or plasma C reactive p rotein measurement (mass/volume)on 05-02-2022 CRP [Mass/Vol] 27.70 mg/L 0.0-3.0 [facility] Work Phone: Comment on above: C-Reactive Protein ( CRP) provides useful information for thediagnosis, therapy and monitoring of inflammatory processesand associated diseases. For the evaluation of Relative Riskfor Cardiovascular Disease, a High Sensitivity CRP (HSCRP)should be ordered. Serum or plasma albumin ayana urement (mass/volume)on 05-02-2022 Albumin [Mass/Vol] 3.5 g/dL 3.2-5.0 [facility] Work Phone: Serum or plasma albumin/glob ulin mass ratioon 05-02-2022 Albumin/Globulin [Mass ratio] 1.1 {ratio} 0.9-2.4 [facility] Work Phone: Serum or plasma calcium ayana urement (mass/volume)on 05-02-2022 Calcium [Mass/Vol] 9.0 mg/dL 8.5-10.1 [facility] Work Phone: Serum or plasma creatinine m easurement (mass/volume)on 05-02-2022 Creatinine [Mass/Vol] 2.13 mg/dL 0.70-1.30 [facility] [place] Work Phone: Comment on above: The validity of the calculated GFR & GFRAA in patients over 70 years has not been determined. Clinical correlation is essential. Serum or plasma urea nitroge n measurement (mass/volume)on 05-02-2022 Urea nitrogen [Mass/Vol] 47 mg/dL 7-18 [facility] Work Phone: Thin prep Papanicolaou smear with manual screeningon 05-02-2022 Thin prep Papanicolaou smear with manual screening 8 U/L 15-37 [facility] Work Phone: Thin prep Papanicolaou smear with manual screening 10 5-15 [facility] Work Phone: Bacteria identified Cx Nom ( Wound)on 05-01-2022 Wound Culture Staphylococcus aureus [facility] Work Phone: Gram stain for investigation of transfusion reactionon 05-01-2022 Microscopic observation Gram stain Nom (Unsp spec) [facility] Work Phone: No Panel Informationon 05-01 Methicillin-Resist S.aureus DNA PCR Negative Negative [facility] Work Phone: Staphylococcus aureus DNA de tection by probe and target amplification methodon 05-01-2022 S. aureus DNA GABINO+probe Ql (Unsp spec) Positive Negative [facility] Work Phone: Absolute lymphocyte counton 04-10-2022 Lymphocytes Auto (Unsp spec) [#/Vol] 1.11 10*3/uL 0.83-4.51 [facility] Work Phone: Basophil percentageon 2021 Basophils/100 WBC (Bld) 0.6 % 0-1 [facility] Work Phone: Chloride [Moles/Vol] 110 mmol/L 98-107 [facility] Work Phone: Eosinophils/100 WBC (Bld) 0.6 % 0-5 [facility] Work Phone: Glucose [Mass/Vol] 126 mg/dL 74-106 [facility] Work Phone: Comment on above: Fasting Glucose resu lt greater than or equal to 126 mg/dL suggests DIABETES MELLITUS per A.D.A. criteria. Neutrophils (Bld) [#/Vol] 9.2 10*3/uL 2.0-7.7 [facility] Work Phone: Neutrophils/100 WBC (Bld) 79.6 % 47-70 [facility] Work Phone: Potassium [Moles/Vol] 4.4 mmol/L 3.5-5.1 [facility] [place] Work Phone: Sodium [Moles/Vol] 139 mmol/L 136-145 [facility] Work Phone: WBC (Bld) [#/Vol] 11.6 10*3/uL 4.4-11.0 [facility] Work Phone: Blood erythrocytes count (nu mber/volume)on 04-10-2022 RBC (Bld) [#/Vol] 4.99 10*6/uL 4.6-6.2 [facility] Work Phone: Blood hemoglobin measurement (mass/volume)on 04-10-2022 Hemoglobin (Bld) [Mass/Vol] 13.7 g/dL 13.0-16.5 [facility] Work Phone: Blood lymphocytes/100 leukoc yteson 04-10-2022 Lymphocytes/100 WBC (Bld) 9.6 % 19-41 [facility] Work Phone: Blood monocytes/100 leukocyt eson 04-10-2022 Monocytes/100 WBC (Bld) 8.7 % 0-10 [facility] Work Phone: Blood platelet mean volumeon 04-10-2022 Platelet mean volume (Bld) [Entitic vol] 9.5 fL 6.2-12.0 [facility] Work Phone: Determination of erythrocyte mean corpuscular volume (MCV)on 04-10-2022 MCV (RBC) [Entitic vol] 88.0 fL 80-94 [facility] Work Phone: Hematocrit Auto (Bld) [Volum e fraction]on 04-10-2022 Hematocrit (Bld) [Volume fraction] 43.9 % 40-54 [facility] Work Phone: Laboratory - Chemistry and C hemistry - challengeon 04-10-2022 CO2 [Moles/Vol] 21.0 mmol/L 21.0-32.0 [facility] Work Phone: Urea nitrogen/Creatinine [Mass ratio] 17.5 mg/mg 10-20 [facility] Work Phone: Laboratory - Hematology and Cell countson 04-10-2022 Erythrocyte distribution width (RBC) [Entitic vol] 42.7 fL 35.1-43.9 [facility] Work Phone: Erythrocyte distribution width (RBC) [Ratio] 13.3 % 11.6-14.6 [facility] Work Phone: Immature granulocytes/100 WBC (Bld) 0.900 % 0.0-0.9 [facility] Work Phone: Comment on above: IG% - Immature Granu locytes (promyelocytes, myelocytes and metamyelocytes) > 1% indicates that a LEFT SHIFT is Present. MCH (RBC) [Entitic mass] 27.5 pg 27.0-32.0 [facility] Work Phone: Nucleated RBC/100 WBC (Bld) [Ratio] 0 % 0-5 [facility] Work Phone: MCHC Auto (RBC) [Mass/Vol]on 04-10-2022 MCHC (RBC) [Mass/Vol] 31.2 g/dL 32-36 [facility] [place] Work Phone: No Panel Informationon 04-10 Estimated Creatinine Clearance Calc 42.33 ml/min [facility] Work Phone: Estimated GFR (MDRD) Amer 46 mL/min >60 [facility] Work Phone: Comment on above: GFR Calc Estimated GFR (MDRD) Non-Af Amer 38 mL/min >60 [facility] Work Phone: Comment on above: Non- GFR Calc Platelets bldon 04-10-2022 Platelets (Bld) [#/Vol] 251 10*3/uL 150-450 [facility] Work Phone: Serum or plasma calcium ayana urement (mass/volume)on 04-10-2022 Calcium [Mass/Vol] 9.1 mg/dL 8.5-10.1 [facility] Work Phone: Serum or plasma creatinine m easurement (mass/volume)on 04-10-2022 Creatinine [Mass/Vol] 1.94 mg/dL 0.70-1.30 [facility] [place] Work Phone: Comment on above: The validity of the calculated GFR & GFRAA in patients over 70 years has not been determined. Clinical correlation is essential. Serum or plasma urea nitroge n measurement (mass/volume)on 04-10-2022 Urea nitrogen [Mass/Vol] 34 mg/dL 7-18 [facility] Work Phone: Thin prep Papanicolaou smear with manual screeningon 04-10-2022 Thin prep Papanicolaou smear with manual screening 8 5-15 [facility] Work Phone: Basophil percentageon 2021 Bilirubin [Mass/Vol] 0.50 mg/dL 0.20-1.00 [facility] Work Phone: Comment on above: For patients on eltr ombopag therapy, use of Dimension [place] TBIL is not recommended. Protein [Mass/Vol] 6.0 g/dL 6.4-8.2 [facility] Work Phone: Laboratory - Chemistry and C hemistry - challengeon 04-09-2022 ALP [Catalytic activity/Vol] 68 U/L 45-117 [facility] Work Phone: ALT [Catalytic activity/Vol] 16 U/L 16-61 [facility] Work Phone: Globulin (S) [Mass/Vol] 3.0 g/dL 2.2-4.2 [facility] Work Phone: Magnesium [Mass/Vol] 2.6 mg/dL 1.6-2.6 [facility] Work Phone: Serum or plasma albumin ayana urement (mass/volume)on 04-09-2022 Albumin [Mass/Vol] 3.0 g/dL 3.2-5.0 [facility] Work Phone: Serum or plasma albumin/glob ulin mass ratioon 04-09-2022 Albumin/Globulin [Mass ratio] 1.0 {ratio} 0.9-2.4 [facility] Work Phone: Thin prep Papanicolaou smear with manual screeningon 04-09-2022 Thin prep Papanicolaou smear with manual screening 11 U/L 15-37 [facility] Work Phone: Vancomycin troughon 04-09-20 22 Vancomycin trough [Mass/Vol] 15.2 ug/mL 5.0-15.0 [facility] Work Phone: Comment on above: VANCOMYCIN STANDARED DRUG THERAPY TROUGH LEVEL: 5.0 - 15.0 mg/L VANCOMYCIN HIGH INTENSITY THERAPY TROUGH LEVEL: 15.0 - 20.0 mg/L High Intensity therapy recommended for serious lifethreatening infections include:- Uqwfkmcudn-Awsbpgnwpzww-Kdvyqcnen (Ventilator/Healtcare Associated)-Sepsis PLEASE CONTACT PHARMACY SERVICES (#[id number]) FOR INTERPRETATIONOF RESULTS. Bacteria identified Anaer cx Nom (Unsp spec)on 04-08-2022 Anaerobic microbial culture No anaerobic bacteria isolated. [facility] Work Phone: Bacteria identified Cx Nom ( Wound)on 04-08-2022 Wound Culture Streptococcus group G [facility] Work Phone: Direct bilirubinon 2 Bilirubin.direct [Mass/Vol] 0.11 mg/dL 0.00-0.30 [facility] Work Phone: Gram stain for investigation of transfusion reactionon 04-08-2022 Microscopic observation Gram stain Nom (Unsp spec) [facility] Work Phone: No Panel Informationon 04-08 Methicillin-Resist S.aureus DNA PCR Negative Negative [facility] Work Phone: Staphylococcus aureus DNA de tection by probe and target amplification methodon 04-08-2022 S. aureus DNA GABINO+probe Ql (Unsp spec) Negative Negative [facility] Work Phone: Absolute lymphocyte counton 04-07-2022 Lymphocytes Auto (Unsp spec) [#/Vol] 0.95 10*3/uL 0.83-4.51 [facility] Work Phone: Basophil percentageon 2021 Basophils/100 WBC (Bld) 0.3 % 0-1 [facility] Work Phone: Chloride [Moles/Vol] 106 mmol/L 98-107 [facility] Work Phone: Eosinophils/100 WBC (Bld) 0.4 % 0-5 [facility] Work Phone: [phone] Glucose [Mass/Vol] 139 mg/dL 74-106 [facility] Work Phone: Comment on above: Fasting Glucose resu lt greater than or equal to 126 mg/dL suggests DIABETES MELLITUS per A.D.A. criteria. Lactate [Moles/Vol] 0.9 mmol/L 0.4-2.0 [facility] Work Phone: [phone] Neutrophils (Bld) [#/Vol] 12.4 10*3/uL 2.0-7.7 [facility] Work Phone: Neutrophils/100 WBC (Bld) 83.5 % 47-70 [facility] Work Phone: [phone] Potassium [Moles/Vol] 3.8 mmol/L 3.5-5.1 [facility] Work Phone: Sodium [Moles/Vol] 139 mmol/L 136-145 [facility] Work Phone: [phone] WBC (Bld) [#/Vol] 14.9 10*3/uL 4.4-11.0 [facility] Work Phone: Blood erythrocytes count (nu mber/volume)on 04-07-2022 RBC (Bld) [#/Vol] 5.33 10*6/uL 4.6-6.2 [facility] Work Phone: Blood hemoglobin measurement (mass/volume)on 04-07-2022 Hemoglobin (Bld) [Mass/Vol] 14.7 g/dL 13.0-16.5 [facility] Work Phone: [phone] Blood lymphocytes/100 leukoc yteson 04-07-2022 Lymphocytes/100 WBC (Bld) 6.4 % 19-41 [facility] Work Phone: Blood monocytes/100 leukocyt eson 04-07-2022 Monocytes/100 WBC (Bld) 8.8 % 0-10 [facility] Work Phone: Blood platelet mean volumeon 04-07-2022 Platelet mean volume (Bld) [Entitic vol] 9.8 fL 6.2-12.0 [facility] Work Phone: Determination of erythrocyte mean corpuscular volume (MCV)on 04-07-2022 MCV (RBC) [Entitic vol] 86.3 fL 80-94 [facility] Work Phone: Glucose Glucometer (dC) [M ass/Vol]on 04-07-2022 Glucose [Mass/Vol] 207 mg/dL 74-106 [facility] Work Phone: Comment on above: MANAGEMENT OF PATIEN T CARE PER NURSING PROTOCOL Hematocrit Auto (Bld) [Volum e fraction]on 04-07-2022 Hematocrit (Bld) [Volume fraction] 46.0 % 40-54 [facility] Work Phone: Laboratory - Chemistry and C hemistry - challengeon 04-07-2022 CO2 [Moles/Vol] 23.0 mmol/L 21.0-32.0 [facility] Work Phone: Urea nitrogen/Creatinine [Mass ratio] 17.8 mg/mg 10-20 [facility] Work Phone: Laboratory - Hematology and Cell countson 04-07-2022 Erythrocyte distribution width (RBC) [Entitic vol] 42.3 fL 35.1-43.9 [facility] Work Phone: Erythrocyte distribution width (RBC) [Ratio] 13.5 % 11.6-14.6 [facility] Work Phone: Immature granulocytes/100 WBC (Bld) 0.600 % 0.0-0.9 [facility] Work Phone: Comment on above: IG% - Immature Granu locytes (promyelocytes, myelocytes and metamyelocytes) > 1% indicates that a LEFT SHIFT is Present. MCH (RBC) [Entitic mass] 27.6 pg 27.0-32.0 [facility] Work Phone: Nucleated RBC/100 WBC (Bld) [Ratio] 0 % 0-5 [facility] Work Phone: MCHC Auto (RBC) [Mass/Vol]on 04-07-2022 MCHC (RBC) [Mass/Vol] 32.0 g/dL 32-36 [facility] Work Phone: No Panel Informationon 04-07 Estimated Creatinine Clearance Calc 39.48 ml/min [facility] Work Phone: Estimated GFR (MDRD) Amer 42 mL/min >60 [facility] Work Phone: Comment on above: GFR Calc Estimated GFR (MDRD) Non-Af Amer 35 mL/min >60 [facility] Work Phone: Comment on above: Non- GFR Calc Platelets bldon 04-07-2022 Platelets (Bld) [#/Vol] 255 10*3/uL 150-450 [facility] Work Phone: Serum or plasma calcium ayana urement (mass/volume)on 04-07-2022 Calcium [Mass/Vol] 9.0 mg/dL 8.5-10.1 [facility] Work Phone: Serum or plasma creatinine m easurement (mass/volume)on 04-07-2022 Creatinine [Mass/Vol] 2.08 mg/dL 0.70-1.30 [facility] Work Phone: Comment on above: The validity of the calculated GFR & GFRAA in patients over 70 years has not been determined. Clinical correlation is essential. Serum or plasma urea nitroge n measurement (mass/volume)on 04-07-2022 Urea nitrogen [Mass/Vol] 37 mg/dL 7-18 [facility] Work Phone: Thin prep Papanicolaou smear with manual screeningon 04-07-2022 Thin prep Papanicolaou smear with manual screening 10 5-15 [facility] Work Phone: CBC,PLATELETSon 03-19-2022 Erythrocyte distribution width (RBC) [Ratio] 13.7 % 10.9 - 14.3 % [facility] Hematocrit (Bld) [Volume fraction] 48.5 % 39.6 - 48.8 % [facility] Hemoglobin (Bld) [Mass/Vol] 15.4 g/dL 13.4 - 16.8 g/dL [facility] Interpretation and review of laboratory results Abnormal [facility] MCH (RBC) [Entitic mass] 27.5 pg 26.1 - 33.3 pg [facility] MCHC (RBC) [Mass/Vol] 31.8 g/dL Low 31.9 - 36.5 g/dL [facility] MCV (RBC) [Entitic vol] 86.6 fL 79.0 - 94.5 fL [facility] Platelet mean volume (Bld) [Entitic vol] 10.6 fL 8.7 - 12.3 fL [facility] Platelets (Bld) [#/Vol] 272 10*3/uL 146 - 337 K/uL [facility] RBC (Bld) [#/Vol] 5.60 10*6/uL [facility] WBC (Bld) [#/Vol] 16.17 10*3/uL High 3.73 - 10.10 K/uL [facility] CHEM 7 (LYTES,BUN,CREA,GLUC) on 03-19-2022 Anion gap [Moles/Vol] 22 mmol/L High 7 - 17 mmol/L [facility] Chloride [Moles/Vol] 100 mmol/L 98 - 10 8 mmol/L [facility] CO2 [Moles/Vol] 20 mmol/L Low 21 - 31 mmol/L [facility] Creatinine [Mass/Vol] 2.66 mg/dL High 0.70 - 1.30 mg/dL [facility] GFR/1.73 sq M.predicted CKD-EPI (S/P/Bld) [Vol rate/Area] 27 Low >=60 mL/min/1.7 3m2 [facility] Comment on above: Reported eGFR is bas ed on the CKD-EPI 2020 equation using creatinine, age, and sex. Glucose [Mass/Vol] 107 mg/dL High 70 - 99 mg/dL [facility] Interpretation and review of laboratory results Abnormal [facility] Osmolality Calc [Osmolality] 305 [facility] Potassium [Moles/Vol] 3.0 mmol/L Low 3.5 - 5.0 mmol/L [facility] Sodium [Moles/Vol] 139 mmol/L 135 - 145 mmol/L [facility] Urea nitrogen [Mass/Vol] 55 mg/dL High 7 - 25 mg/dL [facility] Urea nitrogen/Creatinine [Mass ratio] 21 mg/mg [facility] TACROLIMUS LEVEL, TROUGH (UT E DRUG LEVEL)Ordered By: Rossy Stiles on 03-19-2022 Interpretation and review of laboratory results Normal [facility] Tacrolimus (Bld) [Mass/Vol] 5.6 ng/mL Bone Marrow Transplant : 4.0-12.0, Therapeuti c: 5.0-15.0 [facility] Method performed is a chemiluminescent microparticle immunoasssay on the [employer] i2000. The range is based on experience at [facility] and users should be aware that target concentrations vary widely depending on concomitant therapy, time post-transplant, and desired degree of immunosuppression. [facility] URINE DIPSTICK WITH REFLEX M ICROSCOPYon 03-19-2022 Appearance (U) Clear Clear [facility] Color (U) Yellow Yellow [facility] Glucose Test strip (U) [Mass/Vol] Negative Negative [facility] Interpretation and review of laboratory results Normal [facility] Ketones (U) [Mass/Vol] Negative Negative [facility] Leukocyte esterase Test strip Ql (U) Negative Negative [facility] Nitrite Ql (U) Negative Negative [facility] pH (U) 6.0 [pH] 5.0 - 7.0 [facility] Protein (U) [Mass/Vol] Negative Negative [facility] RBC (U) [#/Vol] Negative Negative [facility] Specific gravity (U) [Rel density] 1.008 [facility] Urobilinogen (U) [Mass/Vol] 0.2 E.U./dL 0.2 E.U/dL, 1.0 E.U/dL [facility] URINE PROTEIN/CREA RATIO, RA NDOMon 03-19-2022 Creatinine (24H U) [Mass/Vol] 39.11 mg/dL [facility] Protein Unsp time (U) [Mass/Vol] 6 mg/dL [facility] Protein/Creatinine (U) [Mass ratio] 0.153 mg/g [facility] Laboratory - Hematology and Cell countson 02-28-2022 HbA1c (Bld) [Mass fraction] 8.9 % 4.2-6.3 [facility] Work Phone: No Panel Informationon 02-16 Miscellaneous Test See comment [facility] Work Phone: Comment on above: TEST RESULT LIMITSBK V Quant PCR BKV DNA,Quant PCR,Plasma Negative IU/mL Negative No BK DNA detected. The linear range of the assay is 22-100,000,000 IU/mL TESTING PERFORMED AT [facility]. ORIGINAL REPORT ON FILE IN LAB CONTAINS ADDITIONAL TEST SITE INFORMATION. Sent directly to [facility] per ordering physician. Absolute lymphocyte counton 01-29-2022 Lymphocytes Auto (Unsp spec) [#/Vol] 1.23 10*3/uL 0.83-4.51 [facility] Work Phone: Basophil percentageon 2021 Basophil percentage 3.2 mg/dL 2.5-4.9 [facility] Work Phone: Basophils/100 WBC (Bld) 0.7 % 0-1 [facility] Work Phone: Bilirubin [Mass/Vol] 0.30 mg/dL 0.20-1.00 [facility] Work Phone: Comment on above: For patients on eltr ombopag therapy, use of Dimension [place] TBIL is not recommended. Chloride [Moles/Vol] 111 mmol/L 98-107 [facility] Work Phone: Cholesterol [Mass/Vol] 139 mg/dL <200 [facility] Work Phone: Comment on above: <200 mg/dL Desirable 200-240 mg/dL Borderline >240 mg/dL High Risk Eosinophils/100 WBC (Bld) 2.0 % 0-5 [facility] Work Phone: Glucose [Mass/Vol] 237 mg/dL 74-106 [facility] Work Phone: Comment on above: Glucose result great er than or equal to 200 mg/dLsuggests DIABETES MELLITUS per A.D.A. criteria. Neutrophils (Bld) [#/Vol] 7.8 10*3/uL 2.0-7.7 [facility] Work Phone: Neutrophils/100 WBC (Bld) 75.9 % 47-70 [facility] Work Phone: Potassium [Moles/Vol] 3.7 mmol/L 3.5-5.1 [facility] Work Phone: Protein [Mass/Vol] 6.3 g/dL 6.4-8.2 [facility] Work Phone: Sodium [Moles/Vol] 141 mmol/L 136-145 [facility] Work Phone: Triglyceride [Mass/Vol] 253 mg/dL <199 [facility] Work Phone: Comment on above: The drugs N-Acetylcy steine and Metamizole may falsely depress this assay.Serum Triglycerides Reference Interval Normal <150 mg/dL Borderline high 150 - 199 mg/dL High 200 - 499 mg/dL Very High > or = 500 mg/dL WBC (Bld) [#/Vol] 10.3 10*3/uL 4.4-11.0 [facility] Work Phone: Blood erythrocytes count (nu mber/volume)on 01-29-2022 RBC (Bld) [#/Vol] 5.49 10*6/uL 4.6-6.2 [facility] Work Phone: Blood hemoglobin measurement (mass/volume)on 01-29-2022 Hemoglobin (Bld) [Mass/Vol] 15.5 g/dL 13.0-16.5 [facility] Work Phone: Blood lymphocytes/100 leukoc yteson 01-29-2022 Lymphocytes/100 WBC (Bld) 11.9 % 19-41 [facility] Work Phone: Blood monocytes/100 leukocyt eson 01-29-2022 Monocytes/100 WBC (Bld) 7.8 % 0-10 [facility] Work Phone: Blood platelet mean volumeon 01-29-2022 Platelet mean volume (Bld) [Entitic vol] 10.2 fL 6.2-12.0 [facility] Work Phone: Determination of erythrocyte mean corpuscular volume (MCV)on 01-29-2022 MCV (RBC) [Entitic vol] 88.0 fL 80-94 [facility] Work Phone: Hematocrit Auto (Bld) [Volum e fraction]on 01-29-2022 Hematocrit (Bld) [Volume fraction] 48.3 % 40-54 [facility] Work Phone: Iron measurement (mass/mass) on 01-29-2022 Iron (Unsp spec) [Mass/Mass] 60 ug/dL 65-175 [facility] Work Phone: Laboratory - Chemistry and C hemistry - challengeon 01-29-2022 ALP [Catalytic activity/Vol] 94 U/L 45-117 [facility] Work Phone: ALT [Catalytic activity/Vol] 24 U/L 16-61 [facility] Work Phone: CO2 [Moles/Vol] 23.0 mmol/L 21.0-32.0 [facility] Work Phone: Globulin (S) [Mass/Vol] 3.0 g/dL 2.2-4.2 [facility] Work Phone: Magnesium [Mass/Vol] 1.7 mg/dL 1.6-2.6 [facility] Work Phone: Transferrin [Mass/Vol] 172 mg/dL 177-329 [facility] Work Phone: Comment on above: Performed at: - [address] [id number] Director: Leticia Tee MD, Phone: [phone] at: - [facility] [address] [id number] Director: Mitchell Hale PhD, Phone: [phone] Urea nitrogen/Creatinine [Mass ratio] 20.0 mg/mg 10-20 [facility] Work Phone: Laboratory - Hematology and Cell countson 01-29-2022 Erythrocyte distribution width (RBC) [Entitic vol] 43.9 fL 35.1-43.9 [facility] Work Phone: Erythrocyte distribution width (RBC) [Ratio] 13.7 % 11.6-14.6 [facility] Work Phone: Immature granulocytes/100 WBC (Bld) 1.700 % 0.0-0.9 [facility] Work Phone: Comment on above: IG% - Immature Granu locytes (promyelocytes, myelocytes and metamyelocytes) > 1% indicates that a LEFT SHIFT is Present. MCH (RBC) [Entitic mass] 28.2 pg 27.0-32.0 [facility] Work Phone: Nucleated RBC/100 WBC (Bld) [Ratio] 0 % 0-5 [facility] Work Phone: MCHC Auto (RBC) [Mass/Vol]on 01-29-2022 MCHC (RBC) [Mass/Vol] 32.1 g/dL 32-36 [facility] Work Phone: No Panel Informationon 01-29 Estimated GFR (MDRD) Amer 38 mL/min >60 [facility] Work Phone: Comment on above: GFR Calc Estimated GFR (MDRD) Non-Af Amer 31 mL/min >60 [facility] Work Phone: Comment on above: Non- GFR Calc Miscellaneous Test See comment [facility] Work [facility]: Comment on above: TEST RESULT LIMITSBK V DNA Quant PCR, Plasma Negative IU/mL Negative No BK DNA detected. The linear range of the assay is 22 - 100,000,000 IU/mL. [facility] ORIGINAL REPORT ON FILE IN LAB CONTAINS ADDITIONAL TEST SITE INFORMATION. Tacrolimus (Prograf) Level 8.0 ng/mL 2.0-20.0 [facility] Work Phone: Comment on above: Trough (immediately following transplant) 15.0 Trough (steady state, 2 weeks or more after transplant): 3.0 - 8.0 Performed by LC-MS/MS technology. Total Iron Binding Capacity 228 ug/dL 250-450 [facility] Work Phone: Platelets bldon 01-29-2022 Platelets (Bld) [#/Vol] 204 10*3/uL 150-450 [facility] Work Phone: Serum or plasma albumin ayana urement (mass/volume)on 01-29-2022 Albumin [Mass/Vol] 3.3 g/dL 3.2-5.0 [facility] Work Phone: Serum or plasma albumin/glob ulin mass ratioon 01-29-2022 Albumin/Globulin [Mass ratio] 1.1 {ratio} 0.9-2.4 [facility] Work Phone: Serum or plasma calcium ayana urement (mass/volume)on 01-29-2022 Calcium [Mass/Vol] 8.8 mg/dL 8.5-10.1 [facility] Work Phone: Serum or plasma cholesterol in HDL measurement (mass/volume)on 01-29-2022 Cholesterol in HDL [Mass/Vol] 31 mg/dL >40 [facility] Work Phone: Comment on above: The drugs N-Acetylcy steine and Metamizole may falsely depress this assay. Reference Range HDL <40 mg/dL Low HDL Cholesterol HDL >or= 60 mg/dL High HDL Cholesterol Serum or plasma cholesterol in VLDL measurement (mass/volume)on 01-29-2022 Cholesterol in VLDL [Mass/Vol] 51 mg/dL 5-40 [facility] Work Phone: Serum or plasma creatinine m easurement (mass/volume)on 01-29-2022 Creatinine [Mass/Vol] 2.30 mg/dL 0.70-1.30 [facility] Work Phone: Comment on above: The validity of the calculated GFR & GFRAA in patients over 70 years has not been determined. Clinical correlation is essential. Serum or plasma ferritin uri surement (mass/volume)on 01-29-2022 Ferritin [Mass/Vol] 525 ng/mL 26-388 [facility] Work Phone: Serum or plasma low density lipoprotein (LDL) cholesterol measurement (mass/volume)on 01-29-2022 Cholesterol in LDL [Mass/Vol] 57 mg/dL 0-130 [facility] Work Phone: Serum or plasma urea nitroge n measurement (mass/volume)on 01-29-2022 Urea nitrogen [Mass/Vol] 46 mg/dL 7-18 [facility] Work Phone: Serum or plasma uric acid me asurement (mass/volume)on 01-29-2022 Urate [Mass/Vol] 10.5 mg/dL 3.5-7.2 [facility] Work Phone: Comment on above: The drugs N-Acetylcy steine and Metamizole may falsely depress this assay. Thin prep Papanicolaou smear with manual screeningon 01-29-2022 Thin prep Papanicolaou smear with manual screening 12 U/L 15-37 [facility] Work Phone: Thin prep Papanicolaou smear with manual screening 7 5-15 [facility] Work Phone: Urine creatinine measurement (mass/volume)on 01-29-2022 Creatinine (U) [Mass/Vol] 43.80 mg/dL NO RANGE EST. [facility] Work Phone: Urine protein measurement (m ass/volume)on 01-29-2022 Protein (U) [Mass/Vol] 9.5 mg/dL 0.0-11.8 [facility] Work Phone: Urine protein/creatinine mas s ratioon 01-29-2022 Protein/Creatinine (U) [Mass ratio] 217 mg/g CRE 0-200 [facility] Work Phone: Absolute lymphocyte counton 11-10-2021 Lymphocytes Auto (Unsp spec) [#/Vol] 0.82 10*3/uL 0.83-4.51 [facility] Work Phone: Basophil percentageon 2020 Chloride [Moles/Vol] 107 mmol/L 98-107 [facility] Work Phone: Eosinophils/100 WBC (Bld) 2.7 % 0-5 [facility] Work Phone: Glucose [Mass/Vol] 231 mg/dL 74-106 [facility] Work Phone: Comment on above: Glucose result great er than or equal to 200 mg/dLsuggests DIABETES MELLITUS per A.D.A. criteria.Please note revised GLUCOSE reference range effective 2017. Neutrophils (Bld) [#/Vol] 7.5 10*3/uL 2.0-7.7 [facility] Work Phone: Potassium [Moles/Vol] 3.6 mmol/L 3.5-5.1 [facility] Work Phone: Sodium [Moles/Vol] 141 mmol/L 136-145 [facility] Work Phone: WBC (Bld) [#/Vol] 10.1 10*3/uL 4.4-11.0 [facility] Work Phone: Blood erythrocytes count (nu mber/volume)on 11-10-2021 RBC (Bld) [#/Vol] 5.41 10*6/uL 4.6-6.2 [facility] Work Phone: Blood hemoglobin measurement (mass/volume)on 11-10-2021 Hemoglobin (Bld) [Mass/Vol] 15.4 g/dL 13.0-16.5 [facility] Work Phone: Blood lymphocytes/100 leukoc yteson 11-10-2021 Lymphocytes/100 WBC (Bld) 8.1 % 19-41 [facility] Work Phone: Blood monocytes/100 leukocyt eson 11-10-2021 Monocytes/100 WBC (Bld) 12.7 % 0-10 [facility] Work Phone: Blood platelet mean volumeon 11-10-2021 Platelet mean volume (Bld) [Entitic vol] 10.4 fL 6.2-12.0 [facility] Work Phone: Determination of erythrocyte mean corpuscular volume (MCV)on 11-10-2021 MCV (RBC) [Entitic vol] 89.3 fL 80-94 [facility] Work Phone: Hematocrit Auto (Bld) [Volum e fraction]on 11-10-2021 Hematocrit (Bld) [Volume fraction] 48.3 % 40-54 [facility] Work Phone: Laboratory - Chemistry and C hemistry - challengeon 11-10-2021 CO2 [Moles/Vol] 25.0 mmol/L 21.0-32.0 [facility] Work Phone: Laboratory - Hematology and Cell countson 11-10-2021 Basophils/100 WBC (Unsp spec) 0.8 % 0-1 [facility] Work Phone: Erythrocyte distribution width (RBC) [Entitic vol] 47.1 fL 35.1-43.9 [facility] Work Phone: Erythrocyte distribution width (RBC) [Ratio] 14.3 % 11.6-14.6 [facility] Work Phone: Immature granulocytes/100 WBC (Bld) 1.300 % 0.0-0.9 [facility] Work Phone: Comment on above: IG% - Immature Granu locytes (promyelocytes, myelocytes and metamyelocytes) > 1% indicates that a LEFT SHIFT is Present. MCH (RBC) [Entitic mass] 28.5 pg 27.0-32.0 [facility] Work Phone: Neutrophils/100 WBC (Bld) 74.4 % 47-70 [facility] Work Phone: Nucleated RBC/100 WBC (Bld) [Ratio] 0 % 0-5 [facility] Work Phone: MCHC Auto (RBC) [Mass/Vol]on 11-10-2021 MCHC (RBC) [Mass/Vol] 31.9 g/dL 32-36 [facility] Work Phone: No Panel Informationon 11-10 Estimated GFR (MDRD) Amer 37 mL/min >60 [facility] Work Phone: Comment on above: GFR Calc Estimated GFR (MDRD) Non-Af Amer 31 mL/min >60 [facility] Work Phone: Comment on above: Non- GFR Calc Tacrolimus (Prograf) Level 7.1 ng/mL [facility] Work Phone: Comment on above: Trough (immediately following transplant) 15.0 Trough (steady state, 2 weeks or more after transplant): 3.0 - 8.0 Performed by LC-MS/MS technology.Performed at: [address] [id number] Director: Leticia Tee MD, Phone: [phone] Miscellaneous Test See comment [facility] Work Phone: Comment on above: TEST RESULT LIMITSBK Quant PCR (Plasma/Serum) BK Quantitation PCR Negative copies/mL Negative No BK DNA detected. The quantitative range of this assay is 200 to 10 million copies/mL.This test was developed and its performance characteristics determined by [employer]. It has not been cleared or approved by the Food and Drug Administration. The FDA has determined that such clearance or approval is not necessary.log10 BK Qn PCR Unable to calculate result since non-numeric result obtained for component test. [facility] ORIGINAL REPORT ON FILE IN LAB CONTAINS ADDITIONAL TEST SITE INFORMATION. Platelets bldon 11-10-2021 Platelets (Bld) [#/Vol] 190 10*3/uL 150-450 [facility] Work Phone: Serum or plasma creatinine m easurement (mass/volume)on 11-10-2021 Creatinine [Mass/Vol] 2.33 mg/dL 0.70-1.30 [facility] Work Phone: Comment on above: The validity of the calculated GFR & GFRAA in patients over 70 years has not been determined. Clinical correlation is essential. Serum or plasma urea nitroge n measurement (mass/volume)on 11-10-2021 Urea nitrogen [Mass/Vol] 47 mg/dL 7-18 [facility] Work Phone: Thin prep Papanicolaou smear with manual screeningon 11-10-2021 Thin prep Papanicolaou smear with manual screening 9 5-15 [facility] Work Phone: MRI HIP W/O CONTRAST LEFTon 05-17-2020 MRI HIP W/O CONTRAST LEFT ORIGINAL MRI of the LEFT hip without contrast HISTORY: Increasing pain, injured one week ago COMPARISON: [X-ray 05/08/2020, CT scan 05/08/2020 FINDINGS: There is a small hip joint effusion present. There is abnormal increased STIR signal within the obturator externus muscle, probably extending as well to the adjacent adductor leslie and brevis. Additionally, there is bone marrow edema identified at the anterior column of the acetabulum, at the very proximal portion of the superior ischio pubic ramus. There is also bone marrow edema identified at the LEFT inferior ischio pubic ramus centrally. These areas are compatible with nondisplaced fractures. The LEFT femoral head and neck show no bone marrow edema. The intertrochanteric area is unremarkable as well. No additional contributory abnormality is identified. IMPRESSION: 1. No fracture of the LEFT femoral head or neck seen. 2. Bone marrow edema indicating nondisplaced fractures at the very proximal portion of the LEFT superior ischio pubic ramus extending to the anterior column of the acetabulum. 3. Nondisplaced fracture at the midportion of the LEFT inferior ischio pubic ramus. 4. Muscle edema indicating strain/partial tear at the adductors, especially the obturator externus. 5. Small hip joint effusion. Interpreted By: Lobito Schwartz MD Preliminary Report By: Lobito Schwartz MD Electronically Signed By: Lobito Schwartz MD Dictated Date: 05/17/2020 4:49:27 PM Prelim Date: 05/17/2020 4:49:27 PM Sign Date: 05/17/2020 4:56:00 PM Ordering Provider:Pedro Toussaint [facility] ([place]) .Auto Diffon 05-13-2020 Ammonia (P) [Mass/Vol] 1.20 10 3/mcL Normal 0.09-1.40 [facility] ([place]) Comment on above: Performed By: #### C BC, ADIFF, ANEU, BMP, GFR ####[address] [address] Basophils (Bld) [#/Vol] 0.00 10 3/mcL Normal 0.00-0.27 [facility] ([place]) Comment on above: Performed By: #### C BC, ADIFF, ANEU, BMP, GFR ####[address] [address] Basophils/100 WBC (Bld) 0.4 % Normal 0.0-2.5 [facility] ([place]) Comment on above: Performed By: #### C BC, ADIFF, ANEU, BMP, GFR ####[address] [address] Eosinophils (Bld) [#/Vol] 0.20 10 3/mcL Normal 0.00-0.65 [facility] ([place]) Comment on above: Performed By: #### C BC, ADIFF, ANEU, BMP, GFR ####[address] [address] Eosinophils/100 WBC (Bld) 2.0 % Normal 0.0-6.0 [facility] ([place]) Comment on above: Performed By: #### C BC, ADIFF, ANEU, BMP, GFR ####[address] [address] Lymphocytes (Bld) [#/Vol] 0.90 10 3/mcL Normal 0.90-4.32 [facility] ([place]) Comment on above: Performed By: #### C BC, ADIFF, ANEU, BMP, GFR ####[address] [address] Lymphocytes/100 WBC (Bld) 9.2 % Low 20.0-40.0 [facility] ([place] Comment on above: Performed By: #### C BC, ADIFF, ANEU, BMP, GFR ####[address] [address] Monocytes/100 WBC (Bld) 11.8 % Normal 2.0-13.0 [facility] ([place]) Comment on above: Performed By: #### C BC, ADIFF, ANEU, BMP, GFR ####[address] [address] Neutrophils/100 WBC (Bld) 76.6 % High 50.0-75.0 [facility] ([place] Comment on above: Performed By: #### C BC, ADIFF, ANEU, BMP, GFR ####[address] [address] .GFRon 05-13-2020 GFR 8 ml/min/1.73sqm Normal [facility] ([place]) Comment on above: Result Comment: GFR Population mean for , Non- Americans Ages 20-29 = 116 mL/min/1.73 sq.m. Ages 30-39 = 107 mL/min/1.73 sq.m. Ages 40-49 = 99 mL/min/1.73 sq.m. Ages 50-59 = 93 mL/min/1.73 sq.m. Ages 60-69 = 85 mL/min/1.73 sq.m. Ages 70+ = 75 mL/min/1.73 sq.m. Chronic Kidney Disease: Less than 60 mL/min/1.73 square meters End Stage Renal Disease: Less than 15 mL/min/1.73 square meters Performed By: #### C BC, ADIFF, ANEU, BMP, GFR ####[address] [address] GFR Non- 7 ml/min/1.73sqm Normal [facility] ([place]) Comment on above: Result Comment: GFR Population mean for , Non- Americans Ages 20-29 = 116 mL/min/1.73 sq.m. Ages 30-39 = 107 mL/min/1.73 sq.m. Ages 40-49 = 99 mL/min/1.73 sq.m. Ages 50-59 = 93 mL/min/1.73 sq.m. Ages 60-69 = 85 mL/min/1.73 sq.m. Ages 70+ = 75 mL/min/1.73 sq.m. Chronic Kidney Disease: Less than 60 mL/min/1.73 square meters End Stage Renal Disease: Less than 15 mL/min/1.73 square meters Performed By: #### C BC, ADIFF, ANEU, BMP, GFR ####[address] [address] .NEUABSon 05-13-2020 Neutrophils (Bld) [#/Vol] 7.60 10 3/mcL Normal 2.25-8.10 [facility] ([place] Comment on above: Performed By: #### C BC, ADIFF, ANEU, BMP, GFR ####[place] [address] BMPon 05-13-2020 Creatinine [Mass/Vol] 8.11 mg/dL High 0.60-1.40 [facility] ([place]) Comment on above: Performed By: #### C BC, ADIFF, ANEU, BMP, GFR ####[place] [address] Urea nitrogen/Creatinine [Mass ratio] 7.5 ratio Low 10.0-22.0 [facility] ([place] Comment on above: Performed By: #### C BC, ADIFF, ANEU, BMP, GFR ####[address] [address] Calcium [Mass/Vol] 8.3 mg/dL Low 8.4-10.1 [facility] ([place] Comment on above: Performed By: #### C BC, ADIFF, ANEU, BMP, GFR ####[address] [address] Chloride [Moles/Vol] 96 mmol/L Low 98-110 [facility] ([place] Comment on above: Performed By: #### C BC, ADIFF, ANEU, BMP, GFR ####[address] [address] CO2 [Moles/Vol] 28 mmol/L Normal 22-32 [facility] ([place] Comment on above: Performed By: #### C BC, ADIFF, ANEU, BMP, GFR ####[place] [address] Electrolyte Balance 10.0 mEq/L Normal 4.0-15.0 [facility] ([place] Comment on above: Performed By: #### C BC, ADIFF, ANEU, BMP, GFR ####[place] [address] Glucose [Mass/Vol] 110 mg/dL Normal 70-110 [facility] ([place] Comment on above: Performed By: #### C BC, ADIFF, ANEU, BMP, GFR ####[place] [address] Potassium [Moles/Vol] 4.8 mmol/L Normal 3.5-5.0 [facility] ([place] Comment on above: Performed By: #### C BC, ADIFF, ANEU, BMP, GFR ####[place] [address] Sodium [Moles/Vol] 134 mmol/L Low 136-145 [facility] ([place] Comment on above: Performed By: #### C BC, ADIFF, ANEU, BMP, GFR ####[place] [address] Urea nitrogen [Mass/Vol] 61.0 mg/dL High 8.0-22.0 [facility] ([place] Comment on above: Performed By: #### C BC, ADIFF, ANEU, BMP, GFR ####[place] [address] CBCon 05-13-2020 Erythrocyte distribution width (RBC) [Ratio] 15.8 % High 11.5-15.5 [facility] ([place] Comment on above: Performed By: #### C BC, ADIFF, ANEU, BMP, GFR ####[place] [address] Hematocrit (Bld) [Volume fraction] 25.6 % Low 40.0-52.0 [facility] ([place] Comment on above: Performed By: #### C BC, ADIFF, ANEU, BMP, GFR ####[place] [address] Hemoglobin (Bld) [Mass/Vol] 8.9 G/dL Low 13.0-17.5 [facility] ([place] Comment on above: Performed By: #### C BC, ADIFF, ANEU, BMP, GFR ####[place] [address] MCH (RBC) [Entitic mass] 32.9 pg Normal 27.0-33.0 [facility] ([place] Comment on above: Performed By: #### C BC, ADIFF, ANEU, BMP, GFR ####[place] [address] MCHC (RBC) [Mass/Vol] 35.0 G/dL Normal 32.0-36.0 [facility] ([place] Comment on above: Performed By: #### C BC, ADIFF, ANEU, BMP, GFR ####[place] [address] MCV (RBC) [Entitic vol] 93.9 fL Normal 81.0-100.0 [facility] ([place] Comment on above: Performed By: #### C BC, ADIFF, ANEU, BMP, GFR ####[place] [address] Platelet mean volume (Bld) [Entitic vol] 7.2 fL Normal 6.4-10.5 [facility] ([place] Comment on above: Performed By: #### C BC, ADIFF, ANEU, BMP, GFR ####[place] [address] Platelets (Bld) [#/Vol] 200 10 3/mcL Normal 150-450 [facility] ([place] Comment on above: Performed By: #### C BC, ADIFF, ANEU, BMP, GFR ####[place] [address] RBC (Bld) [#/Vol] 2.72 10 6/mcL Low 4.50-6.00 [facility] ([place] Comment on above: Performed By: #### C BC, ADIFF, ANEU, BMP, GFR ####[address] [address] WBC (Bld) [#/Vol] 9.90 10 3/mcL Normal 4.50-10.80 [facility] ([place] Comment on above: Performed By: #### C BC, ADIFF, ANEU, BMP, GFR ####[address] [address] .Auto Diffon 05-12-2020 Ammonia (P) [Mass/Vol] 1.00 10 3/mcL Normal 0.09-1.40 [facility] ([place] Comment on above: Performed By: #### C BC, ADIFF, ANEU, GFR, BMP ####[address] [address] Basophils (Bld) [#/Vol] 0.10 10 3/mcL Normal 0.00-0.27 [facility] ([place] Comment on above: Performed By: #### C BC, ADIFF, ANEU, GFR, BMP ####[address] [address] Basophils/100 WBC (Bld) 0.5 % Normal 0.0-2.5 [facility] ([place] Comment on above: Performed By: #### C BC, ADIFF, ANEU, GFR, BMP ####[address] [address] Eosinophils (Bld) [#/Vol] 0.10 10 3/mcL Normal 0.00-0.65 [facility] ([place] Comment on above: Performed By: #### C BC, ADIFF, ANEU, GFR, BMP ####[address] [address] Eosinophils/100 WBC (Bld) 1.2 % Normal 0.0-6.0 [facility] ([place] Comment on above: Performed By: #### C BC, ADIFF, ANEU, GFR, BMP ####[address] [address] Lymphocytes (Bld) [#/Vol] 0.80 10 3/mcL Low 0.90-4.32 [facility] ([place] Comment on above: Performed By: #### C BC, ADIFF, ANEU, GFR, BMP ####[address] [address] Lymphocytes/100 WBC (Bld) 7.6 % Low 20.0-40.0 [facility] ([place]) Comment on above: Performed By: #### C BC, ADIFF, ANEU, GFR, BMP ####[address] [address] Monocytes/100 WBC (Bld) 9.8 % Normal 2.0-13.0 [facility] ([place] Comment on above: Performed By: #### C BC, ADIFF, ANEU, GFR, BMP ####[address] [address] Neutrophils/100 WBC (Bld) 80.9 % High 50.0-75.0 [facility] ([place] Comment on above: Performed By: #### C BC, ADIFF, ANEU, GFR, BMP ####[address] [address] .GFRon 05-12-2020 GFR 11 ml/min/1.73sqm Normal [facility] ([place] Comment on above: Result Comment: GFR Population mean for , Non- Americans Ages 20-29 = 116 mL/min/1.73 sq.m. Ages 30-39 = 107 mL/min/1.73 sq.m. Ages 40-49 = 99 mL/min/1.73 sq.m. Ages 50-59 = 93 mL/min/1.73 sq.m. Ages 60-69 = 85 mL/min/1.73 sq.m. Ages 70+ = 75 mL/min/1.73 sq.m. Chronic Kidney Disease: Less than 60 mL/min/1.73 square meters End Stage Renal Disease: Less than 15 mL/min/1.73 square meters Performed By: #### C BC, ADIFF, ANEU, GFR, BMP ####[address] [address] GFR Non- 9 ml/min/1.73sqm Normal [facility] ([place]) Comment on above: Result Comment: GFR Population mean for , Non- Americans Ages 20-29 = 116 mL/min/1.73 sq.m. Ages 30-39 = 107 mL/min/1.73 sq.m. Ages 40-49 = 99 mL/min/1.73 sq.m. Ages 50-59 = 93 mL/min/1.73 sq.m. Ages 60-69 = 85 mL/min/1.73 sq.m. Ages 70+ = 75 mL/min/1.73 sq.m. Chronic Kidney Disease: Less than 60 mL/min/1.73 square meters End Stage Renal Disease: Less than 15 mL/min/1.73 square meters Performed By: #### C BC, ADIFF, ANEU, GFR, BMP ####[address] [address] .NEUABSon 05-12-2020 Neutrophils (Bld) [#/Vol] 8.60 10 3/mcL High 2.25-8.10 [facility] ([place] Comment on above: Performed By: #### C BC, ADIFF, ANEU, GFR, BMP ####[address] [address] BMPon 05-12-2020 Urea nitrogen [Mass/Vol] 39.0 mg/dL High 8.0-22.0 [facility] ([place] Comment on above: Performed By: #### C BC, ADIFF, ANEU, GFR, BMP ####[address] [address] Urea nitrogen/Creatinine [Mass ratio] 6.2 ratio Low 10.0-22.0 [facility] ([place] Comment on above: Performed By: #### C BC, ADIFF, ANEU, GFR, BMP ####[address] [address] Creatinine [Mass/Vol] 6.30 mg/dL High 0.60-1.40 [facility] ([place] Comment on above: Performed By: #### C BC, ADIFF, ANEU, GFR, BMP ####[address] [address] Calcium [Mass/Vol] 8.4 mg/dL Normal 8.4-10.1 [facility] ([place] Comment on above: Performed By: #### C BC, ADIFF, ANEU, GFR, BMP ####[address] [address] Chloride [Moles/Vol] 98 mmol/L Normal 98-110 [facility] ([place] Comment on above: Performed By: #### C BC, ADIFF, ANEU, GFR, BMP ####[address] [address] CO2 [Moles/Vol] 30 mmol/L Normal 22-32 [facility] ([place] Comment on above: Performed By: #### C BC, ADIFF, ANEU, GFR, BMP ####[address] [address] Electrolyte Balance 8.0 mEq/L Normal 4.0-15.0 [facility] [place] Comment on above: Performed By: #### C BC, ADIFF, ANEU, GFR, BMP ####[place] [address] Glucose [Mass/Vol] 110 mg/dL Normal 70-110 [facility] ([place] Comment on above: Performed By: #### C BC, ADIFF, ANEU, GFR, BMP ####[address] [address] Potassium [Moles/Vol] 4.8 mmol/L Normal 3.5-5.0 [facility] ([place] Comment on above: Performed By: #### C BC, ADIFF, ANEU, GFR, BMP ####[address] [address] Sodium [Moles/Vol] 136 mmol/L Normal 136-145 [facility] ([place] Comment on above: Performed By: #### C BC, ADIFF, ANEU, GFR, BMP ####[address] [address] CBCon 05-12-2020 Erythrocyte distribution width (RBC) [Ratio] 15.8 % High 11.5-15.5 [facility] ([place] Comment on above: Performed By: #### C BC, ADIFF, ANEU, GFR, BMP ####[place] [address] Hematocrit (Bld) [Volume fraction] 25.0 % Low 40.0-52.0 [facility] ([place] Comment on above: Performed By: #### C BC, ADIFF, ANEU, GFR, BMP ####[place] [address] Hemoglobin (Bld) [Mass/Vol] 8.4 G/dL Low 13.0-17.5 [facility] ([place] Comment on above: Performed By: #### C BC, ADIFF, ANEU, GFR, BMP ####[place] [address] MCH (RBC) [Entitic mass] 31.9 pg Normal 27.0-33.0 [facility] ([place] Comment on above: Performed By: #### C BC, ADIFF, ANEU, GFR, BMP ####[place] [address] MCHC (RBC) [Mass/Vol] 33.6 G/dL Normal 32.0-36.0 [facility] ([place] Comment on above: Performed By: #### C BC, ADIFF, ANEU, GFR, BMP ####[place] [address] MCV (RBC) [Entitic vol] 95.0 fL Normal 81.0-100.0 [facility] ([place] Comment on above: Performed By: #### C BC, ADIFF, ANEU, GFR, BMP ####[place] [address] Platelet mean volume (Bld) [Entitic vol] 7.7 fL Normal 6.4-10.5 [facility] ([place] Comment on above: Performed By: #### C BC, ADIFF, ANEU, GFR, BMP ####[place] [address] Platelets (Bld) [#/Vol] 168 10 3/mcL Normal 150-450 [facility] ([place] Comment on above: Performed By: #### C BC, ADIFF, ANEU, GFR, BMP ####[address] [address] RBC (Bld) [#/Vol] 2.63 10 6/mcL Low 4.50-6.00 [facility] ([place] Comment on above: Performed By: #### C BC, ADIFF, ANEU, GFR, BMP ####[address] [address] WBC (Bld) [#/Vol] 10.60 10 3/mcL Normal 4.50-10.80 [facility] ([place] Comment on above: Performed By: #### C BC, ADIFF, ANEU, GFR, BMP ####[address] [address] .Auto Diffon 05-11-2020 Ammonia (P) [Mass/Vol] 1.10 10 3/mcL Normal 0.09-1.40 [facility] ([place] Comment on above: Performed By: #### C BC, ADIFF, ANEU, BMP, GFR ####[address] [address] Basophils (Bld) [#/Vol] 0.00 10 3/mcL Normal 0.00-0.27 [facility] ([place] Comment on above: Performed By: #### C BC, ADIFF, ANEU, BMP, GFR ####[address] [address] Basophils/100 WBC (Bld) 0.5 % Normal 0.0-2.5 [facility] ([place] Comment on above: Performed By: #### C BC, ADIFF, ANEU, BMP, GFR ####[address] [address] Eosinophils (Bld) [#/Vol] 0.20 10 3/mcL Normal 0.00-0.65 [facility] ([place] Comment on above: Performed By: #### C BC, ADIFF, ANEU, BMP, GFR ####[address] [address] Eosinophils/100 WBC (Bld) 1.7 % Normal 0.0-6.0 [facility] ([place] Comment on above: Performed By: #### C BC, ADIFF, ANEU, BMP, GFR ####[address] [address] Lymphocytes (Bld) [#/Vol] 0.60 10 3/mcL Low 0.90-4.32 [facility] ([place] Comment on above: Performed By: #### C BC, ADIFF, ANEU, BMP, GFR ####[address] [address] Lymphocytes/100 WBC (Bld) 6.4 % Low 20.0-40.0 [facility] ([place] Comment on above: Performed By: #### C BC, ADIFF, ANEU, BMP, GFR ####[address] [address] Monocytes/100 WBC (Bld) 11.0 % Normal 2.0-13.0 [facility] ([place] Comment on above: Performed By: #### C BC, ADIFF, ANEU, BMP, GFR ####[address] [address] Neutrophils/100 WBC (Bld) 80.4 % High 50.0-75.0 [facility] ([place] Comment on above: Performed By: #### C BC, ADIFF, ANEU, BMP, GFR ####[address] [address] .GFRon 05-11-2020 GFR 16 ml/min/1.73sqm Normal [facility] ([place]) Comment on above: Result Comment: GFR Population mean for , Non- Americans Ages 20-29 = 116 mL/min/1.73 sq.m. Ages 30-39 = 107 mL/min/1.73 sq.m. Ages 40-49 = 99 mL/min/1.73 sq.m. Ages 50-59 = 93 mL/min/1.73 sq.m. Ages 60-69 = 85 mL/min/1.73 sq.m. Ages 70+ = 75 mL/min/1.73 sq.m. Chronic Kidney Disease: Less than 60 mL/min/1.73 square meters End Stage Renal Disease: Less than 15 mL/min/1.73 square meters Performed By: #### C BC, ADIFF, ANEU, BMP, GFR ####[address] [address] GFR Non- 13 ml/min/1.73sqm Normal [facility] ([place]) Comment on above: Result Comment: GFR Population mean for , Non- Americans Ages 20-29 = 116 mL/min/1.73 sq.m. Ages 30-39 = 107 mL/min/1.73 sq.m. Ages 40-49 = 99 mL/min/1.73 sq.m. Ages 50-59 = 93 mL/min/1.73 sq.m. Ages 60-69 = 85 mL/min/1.73 sq.m. Ages 70+ = 75 mL/min/1.73 sq.m. Chronic Kidney Disease: Less than 60 mL/min/1.73 square meters End Stage Renal Disease: Less than 15 mL/min/1.73 square meters Performed By: #### C BC, ADIFF, ANEU, BMP, GFR ####[place] [address] .NEUABSon 05-11-2020 Neutrophils (Bld) [#/Vol] 8.00 10 3/mcL Normal 2.25-8.10 [facility] ([place] Comment on above: Performed By: #### C BC, ADIFF, ANEU, BMP, GFR ####[address] [address] BMPon 05-11-2020 Calcium [Mass/Vol] 8.4 mg/dL Normal 8.4-10.1 [facility] ([place]) Comment on above: Performed By: #### C BC, ADIFF, ANEU, BMP, GFR ####[address] [address] Chloride [Moles/Vol] 101 mmol/L Normal 98-110 [facility] ([place] Comment on above: Performed By: #### C BC, ADIFF, ANEU, BMP, GFR ####[address] [address] CO2 [Moles/Vol] 29 mmol/L Normal 22-32 [facility] ([place] Comment on above: Performed By: #### C BC, ADIFF, ANEU, BMP, GFR ####[address] [address] Creatinine [Mass/Vol] 4.71 mg/dL High 0.60-1.40 [facility] ([place] Comment on above: Performed By: #### C BC, ADIFF, ANEU, BMP, GFR ####[address] [address] Electrolyte Balance 8.0 mEq/L Normal 4.0-15.0 [facility] [place] Comment on above: Performed By: #### C BC, ADIFF, ANEU, BMP, GFR ####[address] [address] Glucose [Mass/Vol] 105 mg/dL Normal 70-110 [facility] ([place] Comment on above: Performed By: #### C BC, ADIFF, ANEU, BMP, GFR ####[address] [address] Potassium [Moles/Vol] 4.2 mmol/L Normal 3.5-5.0 [facility] ([place] Comment on above: Performed By: #### C BC, ADIFF, ANEU, BMP, GFR ####[address] [address] Sodium [Moles/Vol] 138 mmol/L Normal 136-145 [facility] ([place] Comment on above: Performed By: #### C BC, ADIFF, ANEU, BMP, GFR ####[address] [address] Urea nitrogen [Mass/Vol] 21.0 mg/dL Normal 8.0-22.0 [facility] ([place] Comment on above: Performed By: #### C BC, ADIFF, ANEU, BMP, GFR ####[address] [address] Urea nitrogen/Creatinine [Mass ratio] 4.5 ratio Low 10.0-22.0 [facility] ([place] Comment on above: Performed By: #### C BC, ADIFF, ANEU, BMP, GFR ####[place] [address] CBCon 05-11-2020 Erythrocyte distribution width (RBC) [Ratio] 15.8 % High 11.5-15.5 [facility] ([place] Comment on above: Performed By: #### C BC, ADIFF, ANEU, BMP, GFR ####[place] [address] Hematocrit (Bld) [Volume fraction] 27.0 % Low 40.0-52.0 [facility] ([place] Comment on above: Performed By: #### C BC, ADIFF, ANEU, BMP, GFR ####[place] [address] Hemoglobin (Bld) [Mass/Vol] 9.2 G/dL Low 13.0-17.5 [facility] ([place] Comment on above: Performed By: #### C BC, ADIFF, ANEU, BMP, GFR ####[place] [address] MCH (RBC) [Entitic mass] 32.0 pg Normal 27.0-33.0 [facility] ([place] Comment on above: Performed By: #### C BC, ADIFF, ANEU, BMP, GFR ####[place] [address] MCHC (RBC) [Mass/Vol] 33.9 G/dL Normal 32.0-36.0 [facility] ([place] Comment on above: Performed By: #### C BC, ADIFF, ANEU, BMP, GFR ####[place] [address] MCV (RBC) [Entitic vol] 94.4 fL Normal 81.0-100.0 [facility] ([place] Comment on above: Performed By: #### C BC, ADIFF, ANEU, BMP, GFR ####[place] [address] Platelet mean volume (Bld) [Entitic vol] 7.5 fL Normal 6.4-10.5 [facility] ([place]) Comment on above: Performed By: #### C BC, ADIFF, ANEU, BMP, GFR ####[place] [address] [place] [address] Platelets (Bld) [#/Vol] 173 10 3/mcL Normal 150-450 [facility] ([place] Comment on above: Performed By: #### C BC, ADIFF, ANEU, BMP, GFR ####[place] [address] [place] [address] RBC (Bld) [#/Vol] 2.86 10 6/mcL Low 4.50-6.00 [facility] ([place] Comment on above: Performed By: #### C BC, ADIFF, ANEU, BMP, GFR ####[place] [address] [place] [address] WBC (Bld) [#/Vol] 10.00 10 3/mcL Normal 4.50-10.80 [facility] ([place] Comment on above: Performed By: #### C BC, ADIFF, ANEU, BMP, GFR ####[address] [address] XR CHEST 1 VIEWon 05-11-2020 XR CHEST 1 VIEW ORIGINAL XR CHEST 1 VIEW CLINICAL STATEMENT: hypoxia, shortness of breath. COMPARISON: 05/09/2020 FINDINGS: Lung volumes are low and examination is compromised by patient body habitus. The cardiomediastinal silhouette appears unchanged. There is linear airspace disease the bases bilaterally which favors atelectasis or scarring. No large effusion. Pulmonary vascular markings appear unchanged. No pneumothorax is seen. LEFT clavicle fracture noted. IMPRESSION: Hypoventilatory changes. Interpreted By: Keiko Baldwin MD Preliminary Report By: Keiko Baldwin MD Electronically Signed By: Keiko Baldwin MD Dictated Date: 05/11/2020 3:02:26 PM Prelim Date: 05/11/2020 3:02:26 PM Sign Date: 05/11/2020 3:04:29 PM Ordering Provider:Orestes Toussaint [facility] ([place]) .Auto Diffon 05-10-2020 Ammonia (P) [Mass/Vol] 1.40 10 3/mcL Normal 0.09-1.40 [facility] ([place]) Comment on above: Performed By: #### C BC, ADIFF, ANEU, BMP, GFR ####[address] [address] Basophils (Bld) [#/Vol] 0.10 10 3/mcL Normal 0.00-0.27 [facility] ([place] Comment on above: Performed By: #### C BC, ADIFF, ANEU, BMP, GFR ####[address] [address] Basophils/100 WBC (Bld) 0.5 % Normal 0.0-2.5 [facility] ([place] Comment on above: Performed By: #### C BC, ADIFF, ANEU, BMP, GFR ####[address] [address] Eosinophils (Bld) [#/Vol] 0.20 10 3/mcL Normal 0.00-0.65 [facility] ([place] Comment on above: Performed By: #### C BC, ADIFF, ANEU, BMP, GFR ####[address] [address] Eosinophils/100 WBC (Bld) 1.2 % Normal 0.0-6.0 [facility] ([place] Comment on above: Performed By: #### C BC, ADIFF, ANEU, BMP, GFR ####[address] [address] Lymphocytes (Bld) [#/Vol] 1.00 10 3/mcL Normal 0.90-4.32 [facility] ([place] Comment on above: Performed By: #### C BC, ADIFF, ANEU, BMP, GFR ####[address] [address] Lymphocytes/100 WBC (Bld) 6.2 % Low 20.0-40.0 [facility] ([place] Comment on above: Performed By: #### C BC, ADIFF, ANEU, BMP, GFR ####[address] [address] Monocytes/100 WBC (Bld) 8.4 % Normal 2.0-13.0 [facility] ([place] Comment on above: Performed By: #### C BC, ADIFF, ANEU, BMP, GFR ####[address] [address] Neutrophils/100 WBC (Bld) 83.7 % High 50.0-75.0 [facility] ([place] Comment on above: Performed By: #### C BC, ADIFF, ANEU, BMP, GFR ####[address] [address] .GFRon 05-10-2020 GFR 9 ml/min/1.73sqm Normal [facility] ([place]) Comment on above: Result Comment: GFR Population mean for , Non- Americans Ages 20-29 = 116 mL/min/1.73 sq.m. Ages 30-39 = 107 mL/min/1.73 sq.m. Ages 40-49 = 99 mL/min/1.73 sq.m. Ages 50-59 = 93 mL/min/1.73 sq.m. Ages 60-69 = 85 mL/min/1.73 sq.m. Ages 70+ = 75 mL/min/1.73 sq.m. Chronic Kidney Disease: Less than 60 mL/min/1.73 square meters End Stage Renal Disease: Less than 15 mL/min/1.73 square meters Performed By: #### C BC, ADIFF, ANEU, BMP, GFR ####[address] [address] GFR Non- 8 ml/min/1.73sqm Normal [facility] ([place]) Comment on above: Result Comment: GFR Population mean for , Non- Americans Ages 20-29 = 116 mL/min/1.73 sq.m. Ages 30-39 = 107 mL/min/1.73 sq.m. Ages 40-49 = 99 mL/min/1.73 sq.m. Ages 50-59 = 93 mL/min/1.73 sq.m. Ages 60-69 = 85 mL/min/1.73 sq.m. Ages 70+ = 75 mL/min/1.73 sq.m. Chronic Kidney Disease: Less than 60 mL/min/1.73 square meters End Stage Renal Disease: Less than 15 mL/min/1.73 square meters Performed By: #### C BC, ADIFF, ANEU, BMP, GFR ####[address] [address] .NEUABSon 05-10-2020 Neutrophils (Bld) [#/Vol] 13.70 10 3/mcL High 2.25-8.10 [facility] ([place] Comment on above: Performed By: #### C BC, ADIFF, ANEU, BMP, GFR ####[address] [address] BMPon 05-10-2020 Creatinine [Mass/Vol] 7.40 mg/dL High 0.60-1.40 [facility], [facility] ([place]) Comment on above: Performed By: #### C BC, ADIFF, ANEU, BMP, GFR ####[place] [address] Urea nitrogen/Creatinine [Mass ratio] 5.4 ratio Low 10.0-22.0 [facility] ([place]) Comment on above: Performed By: #### C BC, ADIFF, ANEU, BMP, GFR ####[place] [address] Calcium [Mass/Vol] 8.2 mg/dL Low 8.4-10.1 [facility] ([place]) Comment on above: Performed By: #### C BC, ADIFF, ANEU, BMP, GFR ####[place] [address] Chloride [Moles/Vol] 98 mmol/L Normal 98-110 [facility] ([place] Comment on above: Performed By: #### C BC, ADIFF, ANEU, BMP, GFR ####[place] [address] CO2 [Moles/Vol] 29 mmol/L Normal 22-32 [facility] ([place]) Comment on above: Performed By: #### C BC, ADIFF, ANEU, BMP, GFR ####[place] [address] Electrolyte Balance 7.0 mEq/L Normal 4.0-15.0 [facility] ([place] Comment on above: Performed By: #### C BC, ADIFF, ANEU, BMP, GFR ####[address] [address] Glucose [Mass/Vol] 113 mg/dL High 70-110 [facility] ([place] Comment on above: Performed By: #### C BC, ADIFF, ANEU, BMP, GFR ####[place] [address] Potassium [Moles/Vol] 4.8 mmol/L Normal 3.5-5.0 [facility] ([place] Comment on above: Performed By: #### C BC, ADIFF, ANEU, BMP, GFR ####[place] [address] Sodium [Moles/Vol] 134 mmol/L Low 136-145 [facility] ([place] Comment on above: Performed By: #### C BC, ADIFF, ANEU, BMP, GFR ####[place] [address] Urea nitrogen [Mass/Vol] 40.0 mg/dL High 8.0-22.0 [facility] ([place]) Comment on above: Performed By: #### C BC, ADIFF, ANEU, BMP, GFR ####[place] [address] CBCon 05-10-2020 Erythrocyte distribution width (RBC) [Ratio] 15.7 % High 11.5-15.5 [facility] ([place]) Comment on above: Performed By: #### C BC, ADIFF, ANEU, BMP, GFR ####[place] [address] Hematocrit (Bld) [Volume fraction] 27.4 % Low 40.0-52.0 [facility] ([place]) Comment on above: Performed By: #### C BC, ADIFF, ANEU, BMP, GFR ####[place] [address] Hemoglobin (Bld) [Mass/Vol] 9.1 G/dL Low 13.0-17.5 [facility] ([place]) Comment on above: Performed By: #### C BC, ADIFF, ANEU, BMP, GFR ####[address] [place] [address] MCH (RBC) [Entitic mass] 31.9 pg Normal 27.0-33.0 [facility] ([place]) Comment on above: Performed By: #### C BC, ADIFF, ANEU, BMP, GFR ####[address] [address] MCHC (RBC) [Mass/Vol] 33.4 G/dL Normal 32.0-36.0 [facility] ([place] Comment on above: Performed By: #### C BC, ADIFF, ANEU, BMP, GFR ####[place] [id number] MCV (RBC) [Entitic vol] 95.3 fL Normal 81.0-100.0 [facility] ([place]) Comment on above: Performed By: #### C BC, ADIFF, ANEU, BMP, GFR ####[place] [address] Platelet mean volume (Bld) [Entitic vol] 7.8 fL Normal 6.4-10.5 [facility] ([place]) Comment on above: Performed By: #### C BC, ADIFF, ANEU, BMP, GFR ####[place] [id number] Platelets (Bld) [#/Vol] 158 10 3/mcL Normal 150-450 [facility] ([place]) Comment on above: Performed By: #### C BC, ADIFF, ANEU, BMP, GFR ####[place] [id number] RBC (Bld) [#/Vol] 2.87 10 6/mcL Low 4.50-6.00 [facility] ([place]) Comment on above: Performed By: #### C BC, ADIFF, ANEU, BMP, GFR ####[place] [id number] WBC (Bld) [#/Vol] 16.30 10 3/mcL High 4.50-10.80 [facility] ([place]) Comment on above: Performed By: #### C BC, ADIFF, ANEU, BMP, GFR ####[address] [address] RESCVIDon 06-16-2020 Adenovirus Not Detected Normal Not Detected [facility] ([place]) Comment on above: Performed By: #### R ESCVID ####[place] [address] Bordetella Parapertussis Not Detected Normal Not Detected [facility] ([place] Comment on above: Performed By: #### R ESCVID ####[place] [address] Bordetella Pertussis Not Detected Normal Not Detected [facility] ([place] Comment on above: Performed By: #### R ESCVID ####[place] [address] Chlamydophila pneumoniae Not Detected Normal Not Detected [facility] ([place] Comment on above: Performed By: #### R ESCVID ####[place] [address] Coronavirus 229E (Not COVID-19) Not Detected Normal Not Detected [facility] ([place] Comment on above: Performed By: #### R ESCVID ####[place] [address] Coronavirus HKU1 (Not COVID-19) Not Detected Normal Not Detected [facility] ([place] Comment on above: Performed By: #### R ESCVID ####[place] [address] Coronavirus NL63 (Not COVID-19) Not Detected Normal Not Detected [facility] ([place] Comment on above: Performed By: #### R ESCVID ####[place] [address] Coronavirus OC43 (Not COVID-19) Not Detected Normal Not Detected [facility] ([place] Comment on above: Performed By: #### R ESCVID ####[place] [address] Human Metapneumovirus Not Detected Normal Not Detected [facility] ([place] Comment on above: Performed By: #### R ESCVID ####[place] [address] Influenza A Not Detected Normal Not Detected [facility] ([place]) Comment on above: Performed By: #### R ESCVID ####[facility] [place] [address] Influenza B Not Detected Normal Not Detected [facility] ([place]) Comment on above: Performed By: #### R ESCVID ####[facility] [place] [address] Mycoplasma pneumoniae Not Detected Normal Not Detected [facility] ([place]) Comment on above: Performed By: #### R ESCVID ####[facility] [place] [address] Parainfluenza 1 Not Detected Normal Not Detected [facility] ([place]) Comment on above: Performed By: #### R ESCVID ####[place] [address] Parainfluenza 2 Not Detected Normal Not Detected [facility] ([place]) Comment on above: Performed By: #### R ESCVID ####[place] [address] Parainfluenza 3 Not Detected Normal Not Detected [facility] ([place]) Comment on above: Performed By: #### R ESCVID ####[facility] [place] [address] Parainfluenza 4 Not Detected Normal Not Detected [facility] ([place]) Comment on above: Performed By: #### R ESCVID ####[facility] [place] [address] Respiratory Syncytial Virus Not Detected Normal Not Detected [facility] ([place]) Comment on above: Performed By: #### R ESCVID ####[facility] [place] [address] Rhinovirus/Enteroviru s Not Detected Normal Not Detected [facility] ([place]) Comment on above: Performed By: #### R ESCVID ####[facility] [place] [address] SARS-CoV-2 Not Detected Normal Not Detected [facility] ([place]) Comment on above: Result Comment: This test is being used under the FDA EUA procedure. This assay has been validated in the [facility] for use with nasopharyngeal specimens in [facility]. If a non-validated specimen or test collection method was used, please interpret the results with caution, especially if the test result is negative. A positive test result for COVID-19 indicates that RNA from SARS-CoV-2 was detected, and the patient is infected with the virus and presumed to be contagious. Laboratory test results should always be considered in the context of clinical observations and epidemiological data in making a final diagnosis and patient management decisions. Patient management should follow current CDC guidelines. A negative test result for this test means that SARS-CoV-2 RNA was not present in the specimen above the limit of detection. However, a negative result does not rule out COVID-19 and should not be used as the sole basis for treatment or patient management decisions. A negative result does not exclude the possibility of COVID-19. When diagnostic testing is negative, the possibility of a false negative result should be considered in the context of a patient?s recent exposures and the presence of clinical signs and symptoms consistent with COVID-19. The possibility of a false negative result should especially be considered if the patient?s recent exposures or clinical presentation indicate that COVID-19 is likely, and diagnostic tests for other causes of illness (e.g., other respiratory illness) are negative. If COVID-19 is still suspected based on exposure history together with other clinical findings, re-testing should be considered by healthcare providers in consultation with public health authorities. Performed By: #### R ESCVID ####[place] [address] .Auto Diffon 05-09-2020 Ammonia (P) [Mass/Vol] 1.30 10 3/mcL Normal 0.09-1.40 [facility] ([place]) Comment on above: Performed By: #### C BC, ADIFF, ANEU, BMP, GFR ####[address] [address] Basophils (Bld) [#/Vol] 0.00 10 3/mcL Normal 0.00-0.27 [facility] ([place]) Comment on above: Performed By: #### C BC, ADIFF, ANEU, BMP, GFR ####[address] [address] Basophils/100 WBC (Bld) 0.3 % Normal 0.0-2.5 [facility] ([place]) Comment on above: Performed By: #### C BC, ADIFF, ANEU, BMP, GFR ####[address] [address] Eosinophils (Bld) [#/Vol] 0.20 10 3/mcL Normal 0.00-0.65 [facility] ([place]) Comment on above: Performed By: #### C BC, ADIFF, ANEU, BMP, GFR ####[address] [address] Eosinophils/100 WBC (Bld) 1.3 % Normal 0.0-6.0 [facility] ([place]) Comment on above: Performed By: #### C BC, ADIFF, ANEU, BMP, GFR ####[address] [address] Lymphocytes (Bld) [#/Vol] 1.20 10 3/mcL Normal 0.90-4.32 [facility] ([place]) Comment on above: Performed By: #### C BC, ADIFF, ANEU, BMP, GFR ####[address] [address] Lymphocytes/100 WBC (Bld) 8.8 % Low 20.0-40.0 [facility] ([place] Comment on above: Performed By: #### C BC, ADIFF, ANEU, BMP, GFR ####[address] [address] Monocytes/100 WBC (Bld) 9.9 % Normal 2.0-13.0 [facility] ([place] Comment on above: Performed By: #### C BC, ADIFF, ANEU, BMP, GFR ####[address] [address] Neutrophils/100 WBC (Bld) 79.7 % High 50.0-75.0 [facility] ([place] Comment on above: Performed By: #### C BC, ADIFF, ANEU, BMP, GFR ####[address] [address] .GFRon 05-09-2020 GFR Non- 6 ml/min/1.73sqm Normal [facility] ([place]) Comment on above: Result Comment: GFR Population mean for , Non- Americans Ages 20-29 = 116 mL/min/1.73 sq.m. Ages 30-39 = 107 mL/min/1.73 sq.m. Ages 40-49 = 99 mL/min/1.73 sq.m. Ages 50-59 = 93 mL/min/1.73 sq.m. Ages 60-69 = 85 mL/min/1.73 sq.m. Ages 70+ = 75 mL/min/1.73 sq.m. Chronic Kidney Disease: Less than 60 mL/min/1.73 square meters End Stage Renal Disease: Less than 15 mL/min/1.73 square meters Performed By: #### C BC, ADIFF, ANEU, BMP, GFR ####[place] [address] GFR 7 ml/min/1.73sqm Normal [facility] ([place]) Comment on above: Result Comment: GFR Population mean for , Non- Americans Ages 20-29 = 116 mL/min/1.73 sq.m. Ages 30-39 = 107 mL/min/1.73 sq.m. Ages 40-49 = 99 mL/min/1.73 sq.m. Ages 50-59 = 93 mL/min/1.73 sq.m. Ages 60-69 = 85 mL/min/1.73 sq.m. Ages 70+ = 75 mL/min/1.73 sq.m. Chronic Kidney Disease: Less than 60 mL/min/1.73 square meters End Stage Renal Disease: Less than 15 mL/min/1.73 square meters Performed By: #### C BC, ADIFF, ANEU, BMP, GFR ####[place] [id number] .NEUABSon 05-09-2020 Neutrophils (Bld) [#/Vol] 10.50 10 3/mcL High 2.25-8.10 [facility] ([place]) Comment on above: Performed By: #### C BC, ADIFF, ANEU, BMP, GFR ####[address] [address] BMPon 05-09-2020 Calcium [Mass/Vol] 7.5 mg/dL Low 8.4-10.1 [facility] ([place]) Comment on above: Performed By: #### C BC, ADIFF, ANEU, BMP, GFR ####[address] [address] CO2 [Moles/Vol] 27 mmol/L Normal 22-32 [facility] ([place]) Comment on above: Performed By: #### C BC, ADIFF, ANEU, BMP, GFR ####[address] [address] Creatinine [Mass/Vol] 9.72 mg/dL High 0.60-1.40 [facility] ([place]) Comment on above: Performed By: #### C BC, ADIFF, ANEU, BMP, GFR ####[place] [address] Electrolyte Balance 11.0 mEq/L Normal 4.0-15.0 [facility] ([place] Comment on above: Performed By: #### C BC, ADIFF, ANEU, BMP, GFR ####[place] [address] Glucose [Mass/Vol] 92 mg/dL Normal 70-110 [facility] ([place]) Comment on above: Result Comment: No n ormals available. Specimen drawm from IV arm. Performed By: #### C BC, ADIFF, ANEU, BMP, GFR ####[place] [address] Potassium [Moles/Vol] 5.7 mmol/L High 3.5-5.0 [facility] ([place]) Comment on above: Performed By: #### C BC, ADIFF, ANEU, BMP, GFR ####[place] [address] Urea nitrogen [Mass/Vol] 55.0 mg/dL High 8.0-22.0 [facility] ([place]) Comment on above: Performed By: #### C BC, ADIFF, ANEU, BMP, GFR ####[place] [address] Urea nitrogen/Creatinine [Mass ratio] 5.7 ratio Low 10.0-22.0 [facility] ([place]) Comment on above: Performed By: #### C BC, ADIFF, ANEU, BMP, GFR ####[place] [address] Chloride [Moles/Vol] 100 mmol/L Normal 98-110 [facility] ([place]) Comment on above: Performed By: #### C BC, ADIFF, ANEU, BMP, GFR ####[place] [address] Sodium [Moles/Vol] 138 mmol/L Normal 136-145 [facility] ([place]) Comment on above: Performed By: #### C BC, ADIFF, ANEU, BMP, GFR ####[place] [address] CBCon 05-09-2020 Erythrocyte distribution width (RBC) [Ratio] 16.0 % High 11.5-15.5 [facility] ([place]) Comment on above: Performed By: #### C BC, ADIFF, ANEU, BMP, GFR ####[place] [address] Hematocrit (Bld) [Volume fraction] 26.9 % Low 40.0-52.0 [facility] ([place]) Comment on above: Performed By: #### C BC, ADIFF, ANEU, BMP, GFR ####[place] [address] Hemoglobin (Bld) [Mass/Vol] 9.1 G/dL Low 13.0-17.5 [facility] ([place]) Comment on above: Performed By: #### C BC, ADIFF, ANEU, BMP, GFR ####[place] [address] MCH (RBC) [Entitic mass] 32.1 pg Normal 27.0-33.0 [facility] ([place]) Comment on above: Performed By: #### C BC, ADIFF, ANEU, BMP, GFR ####[place] [address] MCHC (RBC) [Mass/Vol] 33.7 G/dL Normal 32.0-36.0 [facility] ([place]) Comment on above: Performed By: #### C BC, ADIFF, ANEU, BMP, GFR ####[address] [address] MCV (RBC) [Entitic vol] 95.1 fL Normal 81.0-100.0 [facility] ([place]) Comment on above: Performed By: #### C BC, ADIFF, ANEU, BMP, GFR ####[address] [address] Platelet mean volume (Bld) [Entitic vol] 7.6 fL Normal 6.4-10.5 [facility] ([place]) Comment on above: Performed By: #### C BC, ADIFF, ANEU, BMP, GFR ####[address] [address] Platelets (Bld) [#/Vol] 173 10 3/mcL Normal 150-450 [facility] ([place]) Comment on above: Performed By: #### C BC, ADIFF, ANEU, BMP, GFR ####[address] [address] RBC (Bld) [#/Vol] 2.82 10 6/mcL Low 4.50-6.00 [facility] ([place]) Comment on above: Performed By: #### C BC, ADIFF, ANEU, BMP, GFR ####[address] [address] WBC (Bld) [#/Vol] 13.20 10 3/mcL High 4.50-10.80 [facility] ([place] Comment on above: Performed By: #### C BC, ADIFF, ANEU, BMP, GFR ####[address] [address] XR CHEST 1 VIEWon 05-09-2020 XR CHEST 1 VIEW ORIGINAL XR CHEST 1 VIEW 6:50 AM CLINICAL STATEMENT: Chest Pain. COMPARISON: 05/08/2020 FINDINGS: Cardiomediastinal silhouette is unchanged. The lung volumes are low. There is subsegmental atelectasis in the LEFT lung base. There is no vascular congestion. There is no visible pneumothorax. IMPRESSION: Low lung volumes. Subsegmental atelectasis LEFT lung base. Interpreted By: Julia Thacker MD Preliminary Report By: Julia Thacker MD Electronically Signed By: Julia Thacker MD Dictated Date: 05/09/2020 7:53:55 AM Prelim Date: 05/09/2020 7:53:55 AM Sign Date: 05/09/2020 7:59:51 AM Ordering Provider:[facility] ([place]) XR CLAVICLE LEFTon 0 XR CLAVICLE LEFT ORIGINAL XR CLAVICLE LEFT, 2 views Clinical Statement: Fracture, fall injury There is a overlapping fracture of the mid clavicle. The ac and glenohumeral joints are intact. No additional shoulder fracture. IMPRESSION: Overlapping mid clavicular fracture. Interpreted By: Jaylen Aragon DO Preliminary Report By: Jaylen Aragon DO Electronically Signed By: Jaylen Aragon DO Dictated Date: 05/09/2020 2:12:56 PM Prelim Date: 05/09/2020 2:12:56 PM Sign Date: 05/09/2020 2:14:41 PM Ordering Provider:[facility] ([place]) .Auto Diffon 05-08-2020 Ammonia (P) [Mass/Vol] 1.10 10 3/mcL Normal 0.09-1.40 [facility] ([place]) Comment on above: Performed By: #### C BC, ADIFF, ANEU, ABOM, GFR, CMP, TROPI, APTT, PRO, ANTIS #### [address] [address] Basophils (Bld) [#/Vol] 0.00 10 3/mcL Normal 0.00-0.27 [facility] ([place]) Comment on above: Performed By: #### C BC, ADIFF, ANEU, ABOM, GFR, CMP, TROPI, APTT, PRO, ANTIS #### [address] [address] Basophils/100 WBC (Bld) 0.3 % Normal 0.0-2.5 [facility] ([place]) Comment on above: Performed By: #### C BC, ADIFF, ANEU, ABOM, GFR, CMP, TROPI, APTT, PRO, ANTIS #### [address] [address] Eosinophils (Bld) [#/Vol] 0.10 10 3/mcL Normal 0.00-0.65 [facility] ([place] Comment on above: Performed By: #### C BC, ADIFF, ANEU, ABOM, GFR, CMP, TROPI, APTT, PRO, ANTIS #### [address] [address] Eosinophils/100 WBC (Bld) 0.5 % Normal 0.0-6.0 [facility] ([place] Comment on above: Performed By: #### C BC, ADIFF, ANEU, ABOM, GFR, CMP, TROPI, APTT, PRO, ANTIS #### [address] [address] Lymphocytes (Bld) [#/Vol] 0.80 10 3/mcL Low 0.90-4.32 [facility] ([place] Comment on above: Performed By: #### C BC, ADIFF, ANEU, ABOM, GFR, CMP, TROPI, APTT, PRO, ANTIS #### [address] [address] Lymphocytes/100 WBC (Bld) 5.2 % Low 20.0-40.0 [facility] ([place] Comment on above: Performed By: #### C BC, ADIFF, ANEU, ABOM, GFR, CMP, TROPI, APTT, PRO, ANTIS #### [address] [address] Monocytes/100 WBC (Bld) 6.8 % Normal 2.0-13.0 [facility] ([place] Comment on above: Performed By: #### C BC, ADIFF, ANEU, ABOM, GFR, CMP, TROPI, APTT, PRO, ANTIS #### [address] [address] Neutrophils/100 WBC (Bld) 87.2 % High 50.0-75.0 [facility] ([place] Comment on above: Performed By: #### C BC, ADIFF, ANEU, ABOM, GFR, CMP, TROPI, APTT, PRO, ANTIS #### [address] [address] .GFRon 05-08-2020 GFR Non- 6 ml/min/1.73sqm Normal [facility] ([place]) Comment on above: Result Comment: GFR Population mean for , Non- Americans Ages 20-29 = 116 mL/min/1.73 sq.m. Ages 30-39 = 107 mL/min/1.73 sq.m. Ages 40-49 = 99 mL/min/1.73 sq.m. Ages 50-59 = 93 mL/min/1.73 sq.m. Ages 60-69 = 85 mL/min/1.73 sq.m. Ages 70+ = 75 mL/min/1.73 sq.m. Chronic Kidney Disease: Less than 60 mL/min/1.73 square meters End Stage Renal Disease: Less than 15 mL/min/1.73 square meters Performed By: #### C BC, ADIFF, ANEU, ABOM, GFR, CMP, TROPI, APTT, PRO, ANTIS ####[address] [address] GFR 8 ml/min/1.73sqm Normal [facility] ([place]) Comment on above: Result Comment: GFR Population mean for , Non- Americans Ages 20-29 = 116 mL/min/1.73 sq.m. Ages 30-39 = 107 mL/min/1.73 sq.m. Ages 40-49 = 99 mL/min/1.73 sq.m. Ages 50-59 = 93 mL/min/1.73 sq.m. Ages 60-69 = 85 mL/min/1.73 sq.m. Ages 70+ = 75 mL/min/1.73 sq.m. Chronic Kidney Disease: Less than 60 mL/min/1.73 square meters End Stage Renal Disease: Less than 15 mL/min/1.73 square meters Performed By: #### C BC, ADIFF, ANEU, ABOM, GFR, CMP, TROPI, APTT, PRO, ANTIS ####[address] [address] .NEUABSon 05-08-2020 Neutrophils (Bld) [#/Vol] 13.80 10 3/mcL High 2.25-8.10 [facility] ([place] Comment on above: Performed By: #### C BC, ADIFF, ANEU, ABOM, GFR, CMP, TROPI, APTT, PRO, ANTIS #### [place] [id number] APTTon 05-08-2020 aPTT Coag (Bld) [Time] 32.8 s Normal 25.0-35.0 [facility] ([place]) Comment on above: Result Comment: For Heparin anticoagulation therapy, the recommended therapeutic range is: 54-77 seconds (APTT Correlation with Anti-Xa therapeutic range of 0.3-0.7 units/ml). PLEASE REFERENCE THE PHARMACY PROTOCOL FOR DOSING. Performed By: #### C BC, ADIFF, ANEU, ABOM, GFR, CMP, TROPI, APTT, PRO, ANTIS ####[place] [address] aPTT Coag (Bld) [Time] None Normal [facility] ([place]) Comment on above: Performed By: #### C BC, ADIFF, ANEU, ABOM, GFR, CMP, TROPI, APTT, PRO, ANTIS ####[place] [address] CBCon 05-08-2020 Erythrocyte distribution width (RBC) [Ratio] 16.1 % High 11.5-15.5 [facility] ([place]) Comment on above: Performed By: #### C BC, ADIFF, ANEU, ABOM, GFR, CMP, TROPI, APTT, PRO, ANTIS #### [place] [address] Hematocrit (Bld) [Volume fraction] 27.7 % Low 40.0-52.0 [facility] ([place]) Comment on above: Performed By: #### C BC, ADIFF, ANEU, ABOM, GFR, CMP, TROPI, APTT, PRO, ANTIS #### [place] [address] Hemoglobin (Bld) [Mass/Vol] 9.2 G/dL Low 13.0-17.5 [facility] ([place]) Comment on above: Performed By: #### C BC, ADIFF, ANEU, ABOM, GFR, CMP, TROPI, APTT, PRO, ANTIS #### [address] [address] MCH (RBC) [Entitic mass] 31.4 pg Normal 27.0-33.0 [facility] ([place] Comment on above: Performed By: #### C BC, ADIFF, ANEU, ABOM, GFR, CMP, TROPI, APTT, PRO, ANTIS #### [address] [address] MCHC (RBC) [Mass/Vol] 33.1 G/dL Normal 32.0-36.0 [facility] ([place] Comment on above: Performed By: #### C BC, ADIFF, ANEU, ABOM, GFR, CMP, TROPI, APTT, PRO, ANTIS #### [place] [id number] MCV (RBC) [Entitic vol] 95.1 fL Normal 81.0-100.0 [facility] ([place]) Comment on above: Performed By: #### C BC, ADIFF, ANEU, ABOM, GFR, CMP, TROPI, APTT, PRO, ANTIS #### [place] [id number] Platelet mean volume (Bld) [Entitic vol] 7.3 fL Normal 6.4-10.5 [facility] ([place]) Comment on above: Performed By: #### C BC, ADIFF, ANEU, ABOM, GFR, CMP, TROPI, APTT, PRO, ANTIS #### [place] [id number] Platelets (Bld) [#/Vol] 197 10 3/mcL Normal 150-450 [facility] ([place] Comment on above: Performed By: #### C BC, ADIFF, ANEU, ABOM, GFR, CMP, TROPI, APTT, PRO, ANTIS #### [place] [id number] RBC (Bld) [#/Vol] 2.92 10 6/mcL Low 4.50-6.00 [facility] ([place] Comment on above: Performed By: #### C BC, ADIFF, ANEU, ABOM, GFR, CMP, TROPI, APTT, PRO, ANTIS #### [address] [address] WBC (Bld) [#/Vol] 15.90 10 3/mcL High 4.50-10.80 [facility] ([place] Comment on above: Performed By: #### C BC, ADIFF, ANEU, ABOM, GFR, CMP, TROPI, APTT, PRO, ANTIS #### [place] [address] CMPon 05-08-2020 Albumin/Globulin [Mass ratio] 1.0 {ratio} Normal 0.9-1.6 [facility] ([place]) Comment on above: Performed By: #### C BC, ADIFF, ANEU, ABOM, GFR, CMP, TROPI, APTT, PRO, ANTIS ####[place] [address] ALP [Catalytic activity/Vol] 75 U/L Normal 38-126 [facility] ([place]) Comment on above: Performed By: #### C BC, ADIFF, ANEU, ABOM, GFR, CMP, TROPI, APTT, PRO, ANTIS ####[place] [address] Bili Total 0.4 mg/dL Normal 0.2-1.2 [facility] ([place]) Comment on above: Result Comment: Use of this assay is not recommended for patients undergoing treatment with eltrombopag due to the potential for falsely elevated results. Performed By: #### C BC, ADIFF, ANEU, ABOM, GFR, CMP, TROPI, APTT, PRO, ANTIS ####[place] [address] Globulin (S) [Mass/Vol] 3.1 G/dL Normal 1.5-3.8 [facility] ([place]) Comment on above: Performed By: #### C BC, ADIFF, ANEU, ABOM, GFR, CMP, TROPI, APTT, PRO, ANTIS ####[address] [id number] Protein [Mass/Vol] 6.3 G/dL Normal 6.0-8.5 [facility] ([place]) Comment on above: Performed By: #### C BC, ADIFF, ANEU, ABOM, GFR, CMP, TROPI, APTT, PRO, ANTIS ####[address] [address] Albumin [Mass/Vol] 3.2 G/dL Normal 3.2-4.8 [facility] ([place]) Comment on above: Performed By: #### C BC, ADIFF, ANEU, ABOM, GFR, CMP, TROPI, APTT, PRO, ANTIS ####[address] [address] ALT [Catalytic activity/Vol] 24 U/L Normal 12-55 [facility] ([place]) Comment on above: Performed By: #### C BC, ADIFF, ANEU, ABOM, GFR, CMP, TROPI, APTT, PRO, ANTIS ####[address] [address] AST [Catalytic activity/Vol] 16 U/L Normal 8-34 [facility] ([place]) Comment on above: Performed By: #### C BC, ADIFF, ANEU, ABOM, GFR, CMP, TROPI, APTT, PRO, ANTIS ####[address] [address] Calcium [Mass/Vol] 7.5 mg/dL Low 8.4-10.1 [facility] ([place] Comment on above: Performed By: #### C BC, ADIFF, ANEU, ABOM, GFR, CMP, TROPI, APTT, PRO, ANTIS ####[address] [address] Chloride [Moles/Vol] 100 mmol/L Normal 98-110 [facility] ([place]) Comment on above: Performed By: #### C BC, ADIFF, ANEU, ABOM, GFR, CMP, TROPI, APTT, PRO, ANTIS ####[address] [address] CO2 [Moles/Vol] 29 mmol/L Normal 22-32 [facility] ([place]) Comment on above: Performed By: #### C BC, ADIFF, ANEU, ABOM, GFR, CMP, TROPI, APTT, PRO, ANTIS ####[address] [address] Creatinine [Mass/Vol] 8.66 mg/dL High 0.60-1.40 [facility] ([place]) Comment on above: Performed By: #### C BC, ADIFF, ANEU, ABOM, GFR, CMP, TROPI, APTT, PRO, ANTIS ####[address] [address] Electrolyte Balance 9.0 mEq/L Normal 4.0-15.0 [facility] ([place] Comment on above: Performed By: #### C BC, ADIFF, ANEU, ABOM, GFR, CMP, TROPI, APTT, PRO, ANTIS ####[address] [address] Glucose [Mass/Vol] 140 mg/dL High 70-110 [facility] ([place]) Comment on above: Performed By: #### C BC, ADIFF, ANEU, ABOM, GFR, CMP, TROPI, APTT, PRO, ANTIS ####[address] [address] Potassium [Moles/Vol] 4.9 mmol/L Normal 3.5-5.0 [facility] ([place]) Comment on above: Performed By: #### C BC, ADIFF, ANEU, ABOM, GFR, CMP, TROPI, APTT, PRO, ANTIS ####[address] [address] Sodium [Moles/Vol] 138 mmol/L Normal 136-145 [facility] ([place]) Comment on above: Performed By: #### C BC, ADIFF, ANEU, ABOM, GFR, CMP, TROPI, APTT, PRO, ANTIS ####[address] [address] Urea nitrogen [Mass/Vol] 50.0 mg/dL High 8.0-22.0 [facility] ([place]) Comment on above: Performed By: #### C BC, ADIFF, ANEU, ABOM, GFR, CMP, TROPI, APTT, PRO, ANTIS ####[place] [address] [place] [address] Urea nitrogen/Creatinine [Mass ratio] 5.8 ratio Low 10.0-22.0 [facility] ([place]) Comment on above: Performed By: #### C BC, ADIFF, ANEU, ABOM, GFR, CMP, TROPI, APTT, PRO, ANTIS ####[facility] [place] [address] [address] ABD/PELVIS W/ IV CONTRAST ONLYon 05-08-2020 CT ABD/PELVIS W/ IV CONTRAST ONLY ORIGINAL CT ABD/PELVIS W/ IV CONTRAST ONLY CLINICAL STATEMENT: pain; trauma patient COMPARISON: None TECHNIQUE: Axial images were obtained from the lung bases through the pubic symphysis. Coronal reformatted images were generated from the axial dataset. This exam was performed according to our departmental dose optimization program, and includes the following measures where applicable: automated exposure control, adjustment of the mAs and/or kVp according to patient size and/or exam, and an iterative reconstruction algorithm. FINDINGS: CT thorax is reported separately. The liver, spleen, adrenal glands, and pancreas are within normal limits. Gallstones are noted. The kidneys are bilaterally atrophic. There is no hydronephrosis. The bladder is mildly distended. Delayed bladder images demonstrates no significant contrast within the urinary bladder, likely relating to renal atrophy and decreased function. The visualized esophagus and stomach are within normal limits. There is no small bowel or colonic dilatation or wall thickening. The appendix is normal. No free intraperitoneal fluid or air is identified. The aorta is normal in caliber. There is no lymphadenopathy. The prostate is enlarged with dystrophic calcifications. There are mild multilevel degenerative changes of the spine. There are bilateral lateral L5 pars defects with grade 1 anterolisthesis of L5 on S1. There is no aggressive osseous lesion. Previously noted LEFT rib fractures are again seen and more accurately described on same day CT thorax. IMPRESSION: 1. No acute traumatic finding within the abdomen or pelvis. 2. Already described LEFT rib fractures. 3. Cholelithiasis. 4. Bilateral renal atrophy with delayed/decreased function. I have personally reviewed the images of this examination and agree with the resident's findings and interpretation. Interpreted By: Lobito Elias MD Preliminary Report By: Hillary Rodriguez DO Electronically Signed By: Lobito Elias MD Dictated Date: 05/08/2020 4:43:55 PM Prelim Date: 05/08/2020 4:48:26 PM Sign Date: 05/08/2020 5:12:27 PM Ordering Provider:[facility]) CT HEAD OR BRAIN W/O CONTRAS Ton 05-08-2020 CT HEAD OR BRAIN W/O CONTRAST ORIGINAL CT HEAD OR BRAIN W/O CONTRAST CLINICAL STATEMENT: Pain; trauma patient TECHNIQUE: Axial CT images from skull base to vertex without IV contrast. This exam was performed according to our departmental dose optimization program, and includes the following measures where applicable: automated exposure control, adjustment of the mAs and/or kVp according to patient size and/or exam, and an iterative reconstruction algorithm. COMPARISON: None. FINDINGS: There is no intracranial hemorrhage, mass, mass effect or abnormal extra-axial fluid collection. No evidence of an acute territorial infarct is identified. There is no hydrocephalus. Atherosclerotic calcifications are present in the larger arteries. The skull base and calvarium demonstrate no abnormality. There are scattered ethmoid air cell mucosal disease. No air-fluid levels within the sinuses. IMPRESSION: No acute intracranial abnormality. I have personally reviewed the images of this examination and agree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 Medications Ordered in Epic:pantoprazole DR 40 mg tab(s) (PROTONIX) 40 mg ORAL DAILY (6 AM) Suzy(Asset Protection Agent) [place] 40 mg at 08/06/18 0616hydrALAZINE 25 mg tab(s) (APRESOLINE) 25 mg ORAL TID Carlos Mei 25 mgat 08/06/18 0826amLODIPine 10 mg tab(s) (NORVASC) 10 mg ORAL DAILY Carlos Mei 10 mgat 08/06/18 0826calcium acetate 1,334 mg tab(s) (CALPHRON) 1,334 mg ORAL TID w MEALSJosetori Mei 1,334 mg at 08/06/18 0826ipratropium-albuterol 3 mL nebulizer solution (DUONEB) 3 mL INHALATION q 4H PRN Carlos Mei 3 mL at 08/03/18 0927heparin 1,000 unit/mL 3,200 Units injection 3,200 Units INTRALUMINAL PRNDIALYSIS Morissteveritesh Dasarilisinopril 10 mg tab(s) (ZESTRIL, PRINIVIL) 10 mg ORAL DAILY NataliaTetyuk 10 mg at 08/06/18 0826citalopram 20 mg tab(s) (CeleXA) 20 mg ORAL DAILY Jose L Tety[place] 20 mg at08/06/18 0826levothyroxine 150 mcg (SYNTHROID) 150 mcg ORAL DAILY (6 AM) Jose L Eytjiv511 mcg at 08/06/18 0616ondansetron 4 mg tab(s) (ZOFRAN) 4 mg ORAL q 6 H PRN Jose L TetyukOrondansetron (PF) 4 mg injection (ZOFRAN) 4 mg INTRAVENOUS q 6 H PRNNatalia Tetyukacetaminophen 650 mg tab(s) (TYLENOL) 650 mg ORAL q 6 H PRN Jose L TetyuksitaGLIPtin 50 mg tab(s) (JANUVIA) 50 mg ORAL DAILY WITH BREAKFAST NataliaTetyuk 50 mg at 08/06/18 0826atorvastatin 10 mg tab(s) (LIPITOR) 10 mg ORAL AT BEDTIME Jose L Odyyvr57 mg at 08/05/18 2104Current Outpatient Prescriptions Ordered in Epic:calcium acetate 667 mg (169 mg calcium)/5 mL soln Take 2 tablets by mouththree times daily with meals. Disp: Rfl:ergocalciferol, vitamin D2, (VITAMIN D) 50,000 unit capsule Take 50,000Units by mouth once each week. saturday Disp: Rfl:hydrALAZINE (APRESOLINE) 25 mg tablet Take 25 mg by mouth three timesdaily. Disp: Rfl:amLODIPine (NORVASC) 10 mg tablet Take 10 mg by mouth once daily. Disp:Rfl:pantoprazole DR (PROTONIX) 20 mg tablet Take 20 mg by mouth once daily.06 Disp: Rfl:B Complex-Vitamin C-Folic Acid (SJ-GERARDO) 0.8 mg tab Take 0.8 mg by mouthdaily with dinner. Every evening Disp: Rfl:acetaminophen-HYDROcodon e 5-500 mg tablet Take 1-2 tablets by mouth every4 hours as needed. Disp: 40 tablet Rfl: 1SIMVASTATIN 20 mg tablet once daily. Disp: Rfl:LISINOPRIL 10 mg tablet once daily. Disp: Rfl:SYNTHROID 150 mcg tablet once daily. Disp: Rfl:CITALOPRAM 20 mg tablet once daily. Disp: Rfl:KOMBIGLYZE XR 2.5-1,000 mg TM24 twice daily. Disp: Rfl:Vitals:BP 128/65 Pulse 78 Temp 36.7 ?C (98.1 ?F) (Oral) Resp 18 Ht177.8 cm (5' 10) Wt 81.1 kg (178 lb 12.8 oz) SpO2 97% BMI 25.66kg/m?BLOOD PRESSURE RANGE: Systolic (24hrs), Av , Min:116 , Max:131; Diastolic (24hrs), Av, Min:60, Max:6524HR INTAKE/OUTPUT:Intake/Output Summary (Last 24 hours) at 08/06/18 1725Last data filed at 08/06/18 1300 Gross per 24 hourIntake 600 mlOutput 0 mlNet 600 mlPhysical exam:Constitutional: NADSkin: no rash, turgor wnlHeent: mmmNeck: no bruits or jvd notedCardiovascular: S1, S2 normalRespiratory: CTABAbdomen: +bs, soft, nt, ndExt: no lower extremity edemaData:Labs:Recent Labs 08/06/1802WBC -- 9.62* --HB 7.6* 7.2* 7.1*HCT 23.9* 23.1* 22.8*MCV -- 87.5 --PLT -- 377* --Recent Labs 08/05/1802NA 131* 132* 133*K 3.6 4.3 4.3CO2 27 24 25BUN 37* 55* 47*CREAT 5.76* 8.26* 7.59*CA 8.0* 8.2* 8.7Assessment and Plan?1. ESRD. Usually dialyzes on TTS at [facility]. Dr. Gallardo his primary passenger representative.Will arrange for dialysis tomorrow on his usual schedule if notdischarged.No need for dialysis today.?2. Dyspnea. Improved. Back to baseline.Will continue O>I with HD tomorrow. Echo (from [facility]) did notshow systolic dysfunction per Dr. Acosta.Suspect pulmonary edema may be due to volume OL. Will continue more UFwith dialysis tomorrow. Will need to establish a new TW (Current TW is 87kg at [facility]).?3. Anemia. Likely partly due to CKD. Continue ARSH with HD.Has a history of melena but EGD did not show active bleed.Will continue to hold heparin with HD until Hgb is stable.Further work up for anemia as per hospitalist.?4. HTN. BP is controlled. Continue current med (lisinopril).Watch BP as we establish new TW.Please do not hesitate to contact me at [phone] if there is anyquestion or concern.Erwin Moctezuma MD (Marco Antonio Rodney) Normal [facility] Protein mass conc HNO ID: [id number] thor: Hillary Juleservice: [facility] MedicineAuthor Type: PhysicianType: Progress NotesFiled: 08/06/2018 2:43 PMNote Text:DEPARTMENT OF HOSPITAL MEDICINESOUND PHYSICIANSPROGRESS NOTE- HOSPITAL DAY 4SERVICE DATE: 08/06/2018 2:36 PMHospital Medicine/Primary Attending: Hillary Sandhu MD CHIEF COMPLAINT: Acute blood loss anemiaOVERNIGHT EVENTS: NoneINTERVAL HISTORY OF PRESENT ILLNESS: Patient doing well overall, stillfatigued, but not nearly like pre-transfusion. EGD did not reveal sourceof bleeding, nor did RBC scan. Patient is anxious to be discharged and isin favor of outpatient hematology consultation for further evaluation ofrecurrent anemia requiring transfusion.REVIEW OF SYSTEMSGENERAL: SEE HPIHEENT: NegativeNECK: NegativeRESPIRATORY: NegativeCARDIOVASCULAR: NegativeGI: SEE HPIGU: Negative for dysuria, frequency and incontinenceMUSCULOSKELETAL: Negative for joint pain or swelling, back pain, andmuscle pain.SKIN: NegativeNEURO: NegativePHYSICAL EXAM:GENERAL: Alert, no distress, cooperativeSKIN: Skin color, texture, turgor normal. No rashes or lesions. Areaaround right IJ tunneled cath site without erythemaOROPHARYNX: Lips, mucosa, and tongue are normal.Teeth and gums, normal.Oropharynx normal.NECK: No jugulovenous distention, No carotid bruits, Carotid pulse normalcontour, SuppleLUNGS: Lungs clear to auscultation. Good diaphragmatic excursion.CARDIAC: Normal S1 and S2; no rubs, murmurs, or gallopsABDOMEN: Abdomen soft, non-tender, BS normal, No masses or organomegalyEXTREMITIES: Extremities normal, no deformities, edema, clubbing or skindiscoloration. Good capillary refill., No ulcersNEURO: Alert, oriented X 3, Cranial nerves II-XII intactPULSES: 2+ radial, 2+ dorsalis pedis, 2+ carotid, left forearm AV Fistulawith good thrillPatient Vitals for the past 24 hrs: BP Temp Temp src Pulse Resp [id number]/06/18 1400 128/65 36.7 ?C (98.1 ?F) Oral 78 18 97 %08/06/18 1145 117/60 - - 80 - -08/06/18 0613 131/64 36.5 ?C (97.7 ?F) Oral 72 18 97 %08/05/18 2103 124/62 36.5 ?C (97.7 ?F) Temporal Art 76 18 96 %08/05/18 1800 116/62 36.7 ?C (98.1 ?F) Tympanic 82 18 98 %Temp (24hrs), Av.6 ?C (97.9 ?F), Min:36.5 ?C (97.7 ?F), Max:36.7 ?C(98.1 ?F)Pain Score: 0/10 (08/06/18 0826) ASSESSMENT AND PLANPrincipal Problem: Acute blood loss anemia POA: Yes Assessment AND Plan: s/p 3 units PRBC at [place] prior to transfer, andsource of bleeding has not been found. May need VCE as outpatient, orblood loss may not be the source of anemia. Recommend outpatienthematology consultation for consideration of other causes of chronicanemia.Active Problems: Positive fecal occult blood test POA: Yes Assessment AND Plan: as above, no source found ESRD (end stage renal disease) (HCC) POA: Yes Assessment AND Plan: maintenance HD to resume at discharge DM (diabetes mellitus), type 1 with neurological complications (HCC)POA: Yes Assessment AND Plan: continue home insulin regimen Essential hypertension POA: Yes Assessment AND Plan: controlledResolved Problems: Hypoxia POA: Yes CODE STATUS: FullPLANNED DISPOSITION: HomePlan of care discussed with: Patient, Family/Other: and RNI spent 30 minutes in the visit, including chart review and discussionwith other care providers, with more than 50% of the total gkno-hz-vfhgjeub of the visit in counseling / coordination of care.Diagnostic tests reviewed for today's visit:Most recent labs and imaging results.Most recent EKGTELEMETRY: NSRLABSCBC:Recent Labs WBC 9.62*HB 7.2*PLT 377*CMP:Recent Labs NA 131*K 3.6CHLOR 93*CO2 27BUN 37*CREAT 5.76*GLUC 152*CA 8.0*RADIOLOGY08/05/2018 ?4:52 PM - Radiology, [facility] LABELLED GI BLEED SCAN?CLINICAL HISTORY: Assess for acute gastrointestinal bleed.?TECHNIQUE: 20 mCi Tc 99m labelled RBC's. ?Sequential imaging of the abdomen for 90 minutes was obtained.?FINDINGS:?There is normal physiologic distribution of the labelled red blood cellswithoutevidence of any abnormal accumulation of the RBCs.?IMPRESSION:?NO EVIDENCE OF AN ACUTE GASTROINTESTINAL BLEED. MEDICATI ONS:Current hospital medications:pantoprazole DR 40 mg tab(s) (PROTONIX) 40 mg ORAL DAILY (6 AM)hydrALAZINE 25 mg tab(s) (APRESOLINE) 25 mg ORAL TIDamLODIPine 10 mg tab(s) (NORVASC) 10 mg ORAL DAILYcalcium acetate 1,334 mg tab(s) (CALPHRON) 1,334 mg ORAL TID w MEALSipratropium-albuterol 3 mL nebulizer solution (DUONEB) 3 mL INHALATION q 4H PRNheparin 1,000 unit/mL 3,200 Units injection 3,200 Units INTRALUMINAL PRNDIALYSISlisinopril 10 mg tab(s) (ZESTRIL, PRINIVIL) 10 mg ORAL DAILYcitalopram 20 mg tab(s) (CeleXA) 20 mg ORAL DAILYlevothyroxine 150 mcg (SYNTHROID) 150 mcg ORAL DAILY (6 AM)ondansetron 4 mg tab(s) (ZOFRAN) 4 mg ORAL q 6 H PRNondansetron (PF) 4 mg injection (ZOFRAN) 4 mg INTRAVENOUS q 6 H PRNacetaminophen 650 mg tab(s) (TYLENOL) 650 mg ORAL q 6 H PRNsitaGLIPtin 50 mg tab(s) (JANUVIA) 50 mg ORAL DAILY WITH BREAKFASTatorvastatin 10 mg tab(s) (LIPITOR) 10 mg ORAL AT BEDTIMEMedications Discontinued During This EncounterMedication Reason- saxagliptin-metFORMIN 2.5-1,000 mg TM24 1 tablet Not on Formulary- simvastatin 20 mg tab(s) (ZOCOR) Not on Formulary- HYDROcodone 5 mg - acetaminophen 325 mg tablet (NORCO) Other- furosemide 40 mg injection (LASIX)- metFORMIN 1,000 mg tab(s) (GLUCOPHAGE)- furosemide 80 mg injection (LASIX)- heparin 5,000 Units injection- lactated ringers infusion Auto DC with change in level of care.- pantoprazole 40 mg injection (PROTONIX)SIGNATURE: Hillary Sandhu MD PATIENT NAME: Robert Hallman: August 06, 2018 : 2:36 PM PAGER/CONTACT #: [phone] AND WEEKEND COVERAGE: After 7pm please page [phone] Normal [facility] ACUTE GASTRIC BLOOD LOSS CHANTAL DYon 08-05-2018 RBC Auto #/vol (Bld) Performed at [facility] APPROVED BY: LIBRA AGUIRRE MD RBC LABELLED GI BLEED SCAN CLINICAL HISTORY: Assess for acute gastrointestinal bleed. TECHNIQUE: 20 mCi Tc 99m labelled RBC's. Sequential imaging of the abdomen for 90 minutes was obtained. FINDINGS: There is normal physiologic distribution of the labelled red blood cells without evidence of any abnormal accumulation of the RBCs. IMPRESSION: NO EVIDENCE OF AN ACUTE GASTROINTESTINAL BLEED. Normal [facility] CASE MANAGEMon 08-05-2018 CASE MANAGEM HNO ID: [id number] thor: Brynn FaustinRnLeandra Monzon, ETELVINAervice: Care ManagementAuthor Type: Registered NurseType: Care Mgt Progress NoteFiled: 08/05/2018 4:17 PMNote Text:CARE MANAGEMENT PROGRESS NOTESERVICE DATE: 08/05/2018SERVICE TIME: 4:16 PM LOS: 3 daysProgress noteUnable to assess patient- at Test- Nuc med- CM to continue to follow fortransitional care needs.SIGNATURE: Brynn Monzon RN PATIENT NAME: Robert Hallman: August 05, 2018 : 4:16 PM PAGER/CONTACT #: [phone] Normal [facility] CONSULT PROGon 08-05-2018 Protein mass conc HNO ID: [id number] thor: Suzy (Asset Protection Agent) Teresaervice: GastroenterologyAuthor Type: Nurse SpecialistType: Consult Progress NoteFiled: 08/05/2018 3:11 PMNote Text:GI CONSULT PROGRESS NOTESERVICE DATE: 08/05/2018SERVICE TIME: 2:59 PMCONSULTING SERVICE: GastroenterologySubjectiveIN TERVAL HISTORY: S/p EGD. Currently off the unit for bleeding scan. Hgbdown to 7.1 today. No documentation of bloody BMs. Confirmed with staff RNMEDICATIONS:Current hospital medications:hydrALAZINE 25 mg tab(s) (APRESOLINE) 25 mg ORAL TIDamLODIPine 10 mg tab(s) (NORVASC) 10 mg ORAL DAILYcalcium acetate 1,334 mg tab(s) (CALPHRON) 1,334 mg ORAL TID w MEALSpantoprazole 40 mg injection (PROTONIX) 40 mg INTRAVENOUS DAILY (6 AM)ipratropium-albuterol 3 mL nebulizer solution (DUONEB) 3 mL INHALATION q 4H PRNheparin 1,000 unit/mL 3,200 Units injection 3,200 Units INTRALUMINAL PRNDIALYSISlisinopril 10 mg tab(s) (ZESTRIL, PRINIVIL) 10 mg ORAL DAILYcitalopram 20 mg tab(s) (CeleXA) 20 mg ORAL DAILYlevothyroxine 150 mcg (SYNTHROID) 150 mcg ORAL DAILY (6 AM)ondansetron 4 mg tab(s) (ZOFRAN) 4 mg ORAL q 6 H PRNondansetron (PF) 4 mg injection (ZOFRAN) 4 mg INTRAVENOUS q 6 H PRNacetaminophen 650 mg tab(s) (TYLENOL) 650 mg ORAL q 6 H PRNsitaGLIPtin 50 mg tab(s) (JANUVIA) 50 mg ORAL DAILY WITH BREAKFASTatorvastatin 10 mg tab(s) (LIPITOR) 10 mg ORAL AT BEDTIMEObjectivePHYSICAL EXAM:VITALS:BP 150/73 Pulse 81 Temp 36.4 ?C (97.5 ?F) Resp 18 Ht177.8 cm (5' 10) Wt 81.1 kg (178 lb 12.8 oz) SpO2 100% BMI 25.66kg/m?ABDOMEN: Unable to assess. Patient off unitDATA:Diagnostic tests reviewed for today's visit:Most recent labs and imaging results.CBC, Coags, BMP, Mg, PhosRecent Labs 08/04/1815WBC -- -- -- -- 19.26* 15.73*HB 7.1* 8.7* 7.7* < > 8.4* 8.5*HCT 22.8* 28.2* 24.4* < > 27.2* 26.7*PLT -- -- -- -- 384* 356NA 132* 133* -- -- 135* 138K 4.3 4.3 -- -- 4.7 3.7CHLOR 97* 98 -- -- 101 99CO2 24 25 -- -- 25 30BUN 55* 47* -- -- 22* 14CREAT 8.26* 7.59* -- -- 4.72* 4.09*GLUC 100* 73 -- -- 116* 134*CA 8.2* 8.7 -- -- 8.5 8.5< > = values in this interval not displayed.CSF AND DilantinLiver Function, Amylase, AND LipaseRecent Labs 08/04/1815TPROT 6.8 7.6ALB 2.2* 2.3*ALT 14 16AST 14 17ALKPHOS 47 58TBILI 1.0 1.0Cardiac EnzymesABGsRecent Labs PH 7.476*PCO2 38.2PO2 66.6*BE 3.7Bleeding scan - pendingEGD 08/04 - patulous GE junction. Small hiatal hernia. Undigested food inthe stomach consistent with gastroparesis. Normal duodenum and duodenalbulbImpression/Recom mendationsAcute normocytic anemia - no overt signs of GI bleeding - but had occultpositive stool. Had recent colonoscopy that showed grade II-IIIhemorrhoids. EGD showed visible blood in posterior pharynx (? Epistaxis orhemoptysis) with no bleeding in esophagus, stomach or duodenum- Advance diet as tolerated- Monitor Hgb/Hct - transfuse as needed- Recommend ENT evaluation for visualized blood in posterior pharynx (seenin EGD)GI will continue to followSIGNATURE: Suzy Jauregui APRN.QA SPECIALIST PATIENT NAME: Robert JacquesATE: August 05, 2018 : 2:59 PM PAGER/CONTACT #: [phone] Normal [facility] Comprehensive Panelon 2017 ALP enzyme act/vol 47 U/L Normal 46-116 [facility] Comment on above: Performed By: #### G FR ####[address] [address] Bilirubin mass conc 1.0 mg/dL Normal 0.2-1.0 [facility] Comment on above: Performed By: #### G FR ####[address] [address] Protein mass conc 6.8 g/dL Normal 6.4-8.2 [facility] Comment on above: Performed By: #### G FR ####[address] [address] Creatinine mass conc 8.26 mg/dL High 0.67-1.17 [facility] Comment on above: Performed By: #### G FR ####[address] [address] AST enzyme act/vol 14 U/L Normal 9-37 [facility] Comment on above: Performed By: #### G FR ####[address] [address] ALT enzyme act/vol 14 U/L Normal 12-78 [facility] Comment on above: Performed By: #### G FR ####[address] [address] Albumin mass conc 2.2 g/dL Low 3.4-5.0 [facility] Comment on above: Performed By: #### G FR ####[address] [address] Anion gap 3 molar conc 15 mmol/L Normal 8-16 [facility] Comment on above: Performed By: #### G FR ####[facility] [place], [place] [address] Calcium mass conc 8.2 mg/dL Low 8.5-10.1 [facility] Comment on above: Performed By: #### G FR ####[facility] [place], [place] [address] CO2 molar conc 24 mmol/L Normal 21-32 [facility] Comment on above: Performed By: #### G FR ####[facility] [place], [place] [address] Glucose mass conc 100 mg/dL High 70-99 [facility] Comment on above: Performed By: #### G FR ####[facility] [place], [place] [address] Urea nitrogen mass conc 55 mg/dL High 7-18 [facility] Comment on above: Performed By: #### G FR ####[facility] [place], [place] [address] Chloride molar conc 97 mmol/L Low 98-107 [facility] Comment on above: Performed By: #### G FR ####[facility] [place], [place] [address] Potassium molar conc 4.3 mmol/L Normal 3.5-5.1 [facility] Comment on above: Performed By: #### G FR ####[address] [address] Sodium molar conc 132 mmol/L Low 136-145 [facility] Comment on above: Performed By: #### G FR ####[facility] [place], [place] [address] [place] 08-05-2018 Hematocrit Auto Volume Fraction (Bld) 22.8 % Low 40.1-51.0 [facility] Comment on above: Performed By: #### G FR ####[facility] [place], [place] [address] Hgbon 08-05-2018 Hemoglobin mass conc (Bld) 7.1 g/dL Low 13.7-17.5 [facility] Comment on above: Performed By: #### G FR ####[address], [place] [address] NURSING PROGon 08-05-2018 Protein mass conc HNO ID: [id number] Author: Escobar (Rn) Orta, RN Service: Dialysis Author Type: Registered Nurse Type: Nursing Progress Note Filed: 08/05/2018 12:29 PM Note Text: Hemodialysis completed 4 hrs. TUF -3000ml, LAVF worked well. Tolerated tx. well Normal [facility] PROGRESSon 08-05-2018 Protein mass conc HNO ID: [id number] thor: Carlos RobinColumbia Regional Hospitalice: [facility] MedicineAuthor Type: PhysicianType: Progress NotesFiled: 08/05/2018 8:55 PMNote Text:INPATIENT PROGRESS NOTEAfter 7pm, please call cross cover pager #[phone] DATE: August 05, 2018SERVICE TIME: 8:49 PMPRIMARY SERVICE: Hospital MedicineSubjectiveCHIEF COMPLAINT: Here for : problems listed belowActive Hospital Problems Diagnosis Date Noted- Melena 08/02/2018- Hypothyroidism 08/03/2018- Hypoxia 08/03/2018- Acute blood loss anemia 08/02/2018- ESRD (end stage renal disease) ([facility]) 08/02/2018- DM (diabetes mellitus), type 1 with neurological complications ([facility])08/02/2018- Essential hypertension 08/02/2018INTERVAL HPI:Denies any sobHEENT: Negative for nasal congestion and post-nasal dripCARDIOVASCULAR: Negative for palpitationsGI: negative for nausea/ emesisGU: negative for dysuria, urgency , frequencyMUSCULOSKELETAL: negative for pains/achesSKIN: Negative for rashPSYCH: Negative for active stressors, depression and anxietyENDOCRINE: Negative for polyuria and polydipsiaNEURO: Negative for cognitive changes and morning headachesAll other review of systems reviewed and are negative unless other wisestated in the HPI or the ROSCurrent hospital medications:[START ON 08/06/2018] pantoprazole DR 40 mg tab(s) (PROTONIX) 40 mg ORALDAILY (6 AM)hydrALAZINE 25 mg tab(s) (APRESOLINE) 25 mg ORAL TIDamLODIPine 10 mg tab(s) (NORVASC) 10 mg ORAL DAILYcalcium acetate 1,334 mg tab(s) (CALPHRON) 1,334 mg ORAL TID w MEALSipratropium-albuterol 3 mL nebulizer solution (DUONEB) 3 mL INHALATION q 4H PRNheparin 1,000 unit/mL 3,200 Units injection 3,200 Units INTRALUMINAL PRNDIALYSISlisinopril 10 mg tab(s) (ZESTRIL, PRINIVIL) 10 mg ORAL DAILYcitalopram 20 mg tab(s) (CeleXA) 20 mg ORAL DAILYlevothyroxine 150 mcg (SYNTHROID) 150 mcg ORAL DAILY (6 AM)ondansetron 4 mg tab(s) (ZOFRAN) 4 mg ORAL q 6 H PRNondansetron (PF) 4 mg injection (ZOFRAN) 4 mg INTRAVENOUS q 6 H PRNacetaminophen 650 mg tab(s) (TYLENOL) 650 mg ORAL q 6 H PRNsitaGLIPtin 50 mg tab(s) (JANUVIA) 50 mg ORAL DAILY WITH BREAKFASTatorvastatin 10 mg tab(s) (LIPITOR) 10 mg ORAL AT BEDTIMEObjectivePHYSICAL EXAM:BP 116/62 Pulse 82 Temp (Src) 98.1 (Tympanic) Resp 18 Ht 5' 10(1.78m) Wt 178 lb 12.8 oz (81.1kg) SpO2 98% BMI 25.66 kg/(m2).Constitutional - Vitals as above, not in acute distressResp - Clear to auscultate both sides, no wheezes, crackles or rales, nolabored breathingCVS- RRR. No murmur, gallop or rub, pulse 2+GI - NTND, bowel sounds normally heard, no mass palpableCNS- cranial nerves 2 to 12 grossly intact, no focal motor or sensorydeficits noted, speech normal/Psych- A ANDO x 3, mood normalSkin- Normal tugor, no ulcers or rashesDATA:Diagnostic tests reviewed for today's visit:Most recent labs and imaging results.Hemoglobin (g/dL)Date Value11/03/2012 13.4 HGB (g/dL)Date Value08/05/2018 7.1 Hematocrit (%)Date Value08/05/2018 22.8 WBC (thou/cmm)Date Value08/0307/2018 19.26 Glucose (mg/dL)Date 08/05/2018 100 Potassium (mEq/L)08/05/2018 4.3 Sodium (mEq/L)Date 08/05/2018 132 Chloride (mEq/L)08/05/2018 97 CO2 (mEq/L)08/05/2018 24 Creatinine (mg/dL)Date 08/05/2018 8.26 BUN (mg/dL)08/05/2018 55 Anion Gap (no units)Date 08/05/2018 15 Calcium (mg/dL)08/05/2018 8.2 Protein, Total (g/dL)08/05/2018 6.8 Albumin (g/dL)08/05/2018 2.2 Bilirubin, Total (mg/dL)08/05/2018 1.0 Alkaline Phosphatase (U/L)08/05/2018 47 AST (U/L)08/05/2018 14 ALT (U/L)08/05/2018 14 Assessment/PlanP rincipal Problem:Acute hypoxic respiratory failure : I have ordered an extensive workupincluding EKG and chest x-ray ventilation/perfusion scan ABGs. It seemsthat the patient on chest x-ray has pulmonary edema. I asked the patientif he has any cardiac condition he stated that there was an echo doneapproximately 3 days ago when he was in was temperature that showedpossible heart failure. At a conversation with the passenger representative regardingdiuresing the patient. He ordered Lasix 80 mg IV, and the patient will goto dialysis today and they will try to remove 3-4 L of fluids.Graciously, passenger representative also has access to records, he will present tothe echocardiogram and place it on the chart tomorrow. This could beeither CHF exacerbation or fluid overload.I placed him on continuous pulseox and monitor monitoring for now also.August 04, 2018----> echo results sent by nephrology , Normal EF, no DD. Most likely wasfluid overloaded. . I will attempt to wean O2 today.------> August 05, 2018 : completely off O2 today Melena POA: Yes Assessment AND Plan: gastroenterology on board, every 8 hourshemoglobinand hematocrit shows decreasehe status post 3 units of PRBCs. We'llcontinue to monitor for bleeding. I I've sent for type and screen againand we'll consent the patient tonight.*------>August 04, 2018 , patient went for EGD today , awaiting GI recs,H/H stable-----August 05, 2018 : H/H , EGD unremarkable, tagged RBC negative. Noidentifiable source of bleeding. Will wait on GI final recs tomorrow. ESRD (end stage renal disease) (HCC) POA: Yes Assessment AND Plan: dialysis today per nephrology DM (diabetes mellitus), type 1 with neurological complications (HCC)POA: Yes Assessment AND Plan: continue home Januvia every 4 checks of bloodglucose. for now appears to be close to normal glycemic Essential hypertension POA: Yes Assessment AND Plan: mildly hypertensive today, however he will undergodialysis we'll reevaluate tomorrowSept2017----> restarted home meds today Hypothyroidism POA: Unknown Assessment AND Plan: continue home medicationsResolved Problems: * No resolved hospital problems. *Medication and Non-Pharmacologic VTE Prophylaxis/AnticoagulantsAn ticoagulant AND Antiplatelet Medications Start Dose Route Frequency Ordered Stop 08/03/18 1335 heparin 1,000 unit/mL 3,200 Units injection 3,200 Units INTRALUMINAL PRN DIALYSIS 08/03/18 1336 --08/03/18 0030 pneumatic compression stockings (hi,dc)08/02/181999 vte non-pharmacologic prophylaxis - none indicated (hi,[place])08/02/181999 activity - mobilize patient ([place])VTE Prophylaxis: reviewed the heparin protocol, have DC'd the heparin 5000twice a day due to active bleeding.Dispo: pending GI recommendationsSIGNATURE: Carlos Mei MD PATIENT NAME: Robert JacquesATE: August 05, 2018 : 8:54 PM PAGER: emma Coffman , After 7pm, please call cross cover pager #[phone] Normal [facility] Protein mass conc HNO ID: [id number] thor: Umang (Rt) Nikkie ShellService: RadiologyAuthor Type: TechnicianType: Progress NotesFiled: 08/05/2018 4:50 PMNote Text: RADIOLOGY SERVICE PROGRESS NOTESERVICE DATE: 08/05/2018SERVICE TIME: 4:49 PMPATIENT IDENTITY VERIFICATION COMPLETED USING TWO (2) METHODS: Patientconfirmed name and Date of verbally.PATIENT GENDER DATA: .male: NoALLERGIES: Reviewed and unchangedMEDICATIONS REVIEWED: YesPATIENT RELEVANT IMPLANT DATA REVIEWED: Not ApplicableCREATININE:Creatin ineDate Value Ref Range Muyjrj2908/05/2018 8.26 (H) 0.67 - 1.17 mg/dL Final08/04/2018 7.59 (H) 0.67 - 1.17 mg/dL Final08/03/2018 4.72 (H) 0.67 - 1.17 mg/dL Final eGFR-All Other RacesDate Value Ref Range Qbyvmf6111/03/2012 >60 . FinalComment:eGFR (Estimated GFR) Units of measure: mL/min/1.73 meters squaredeGFR is derived from the reexpressed MDRD Study equation using thefollowing parameters: serum creatinine, age, gender and race. Thecreatinine assay has been calibrated to be traceable to IDMS.An eGFR <60 mL/min/1.73m2 for >3 months is consistent with chronickidney disease. Refer to KDOQI guidelines for clinical interpretation. eGF R- AmericanDate Value Ref Range Admrbf1611/03/2012 >60 Final P.O.C.T. RESULTS: N/A August 05, 2018DIAGNOSTIC CT PERFORMED: NoIV SITE: Inpatient - refer to [facility] documentationPOST EXAM PIV STATUS: Left in for next appointmentPROCEDURE TYPE: NM INJECT: GI BLEED SCAN. 20 mCi Tc99m ULTRATAG. No othermedications given..ADMINISTRATION TIME: 2PATIENT DISCHARGED TO: Patient taken to IP transport area for return toRNF/ICU/ED.A Diagnostic radioactive procedure has taken place, with no furtherprecautions necessary other than routine body substance precautions. Moreinformation regarding radiation safety can be found using this link:[email or web address]%20Nuclear%20Me dicine%[email or web address] ASA: RT Tyson PATIENT NAME: Robert JacquesATE: August 05, 2018 : 4:49 PM PAGER/CONTACT #: Normal [facility] Protein mass conc HNO ID: [id number] thor: Sky DasHamervice: NephrologyAuthor Type: PhysicianType: Progress NotesFiled: 08/05/2018 9:28 AMNote Text:Patient was seen on dialysisDiagnosis. ESRDAccess. Left arm AVF, still has RIJ TDC inBlood flow 350BP 135/65UF 3-4 LNo complaints.Hb dropped again. UGI endoscopy negative. [facility] No significant findings except for grade 2-3hemorrhoids. Normal [facility] ABO/Rh Confirmationon 2017 ABO group Nom (Bld) A Normal [facility] Comment on above: Performed By: #### P 8 ####[facility] [place] [address] RH Type Positive Normal [facility] Comment on above: Performed By: #### P 8 ####[place] [id number] ANES Hillary 08-04-2018 ANES POST HNO ID: [id number] thor: Lobito Yanes: AnesthesiologyAuthor Type: PhysicianType: Anesthesia PostOpFiled: 08/04/2018 10:36 AMNote Text:POST ANESTHESIA EVALUATION NOTESERVICE DATE: 08/04/2018SERVICE TIME: 10:36 AMDOB: 1960Vitals: 08/03/1821Temp: 36.8 ?C (98.2 ?F) 36.6 ?C (97.9 ?F) 36.8 ?C (98.2 ?F) 36.6 ?C (97.9?F) 08/04/18073BP: 147/69 149/74 (!) 140/38 130/53 08/04/18073Pulse: 79 80 76 73 08/04/1809Resp: 18 18 18 16 08/04/1809SpO2: 100% (!) 85% 92% 98%Validated Vital Signs: YesPOST ANES STATUS: No apparent anesthetic complications. The patient isappropriately hydrated with stable respiratory and cardiovascular status.Patient has safe and adequate airway control. The patient has appropriatepain relief and no significant post operative nausea or vomiting. Thepatient has achieved baseline mental status.Intra-Operative Events: No Significant Anesthesia EventsFurther assessment by Anesthesia Service: NoneOther Remarks:SIGNATURE: Lobito Moraes MD PATIENT NAME: Robert JacquesATE: August 04, 2018 : 10:36 AM PAGER/CONTACT #: [phone] [facility] ANES PREOPon 08-04-2018 ANES PREOP HNO ID: [id number] thor: Lobito MoraesService: AnesthesiologyAuthor Type: PhysicianType: Anesthesia PreOpFiled: 08/04/2018 8:19 AMNote Text: ANESTHESIOLOGY DAY OF SURGERY NOTESERVICE DATE: 08/04/2018SERVICE TIME: 8:17 AMDOB: 2Procedure(s) (LRB):EGD (Left)Surgeon(s):Jadiel RaeEstimated body mass index is 25.66 kg/m? as calculated from the following: Height as of this encounter: 177.8 cm (5' 10). Weight as of this encounter: 81.1 kg (178 lb 12.8 oz).Most recent hematocrit and potassium results:Hematocrit 24.4 08/04/2018Potassium 4.7 08/03/2018ANES DOS/PREOP NOTE:Vitals: 08/04/1806BP: 146/71 138/67 147/69 149/74Pulse: 74 79 79 80Resp: 18 18 18 18Temp: 36.8 ?C (98.2 ?F) 36.6 ?C (97.9 ?F)TempSrc: Oral OralSpO2: 95% 97% 100% 100%Weight:Height:ACTIVE PROBLEM LISTUmbilical Hernia Without Mention of Obstruction Or GangreneMelenaAcute Blood Loss AnemiaEsrd (End Stage Renal Disease) (Hcc)Dm (Diabetes Mellitus), Type 1 With Neurological Complications (Hcc)Essential HypertensionBlood Loss AnemiaHypothyroidismHypoxiaP AST MEDICAL HISTORYDiagnosis Date- Depression- DM (diabetes mellitus) (HCC)- ESRD (end stage renal disease) (HCC)- HTN (hypertension)- Hyperlipidemia- HypothyroidPAST SURGICAL HISTORYProcedure Laterality Date- HERNIA REPAIR HX 1983 inguinal- REPAIR UMBILICAL JAMES,5+Y/O,REDUC 11/19/12 with meshFAMILY HISTORYProblem Relation Age of Onset- Alcohol/Drug Sister- Stroke Father- Heart FatherSocial History:Social HistorySubstance Use Topics- Smoking status: Never Smoker- Smokeless tobacco: Current User Types: Snuff- Alcohol use Not on file Comment: 1/monthNo current facility-administered medications on file prior to encounter.Current Outpatient Prescriptions on File Prior to Encounter:acetaminophen-HYDR Ocodone 5-500 mg tablet Take 1-2 tablets by mouth every4 hours as needed.SIMVASTATIN 20 mg tablet once daily.LISINOPRIL 10 mg tablet once daily.SYNTHROID 150 mcg tablet once daily.CITALOPRAM 20 mg tablet once daily.KOMBIGLYZE XR 2.5-1,000 mg TM24 twice daily.Current Facility-Administered Medications:pantoprazole 40 mg injection (PROTONIX) 40 mg INTRAVENOUS DAILY (6 AM)Jose L Tetyuk 40 mg at 08/04/18 0604ipratropium-albuterol 3 mL nebulizer solution (DUONEB) 3 mL INHALATION q 4H PRN Carlos Mei 3 mL at 08/03/18 0927heparin 1,000 unit/mL 3,200 Units injection 3,200 Units INTRALUMINAL PRNDIALYSIS Manuelprakasofi Dasarilisinopril 10 mg tab(s) (ZESTRIL, PRINIVIL) 10 mg ORAL DAILY NataliaTetyuk 10 mg at 08/03/18 0807citalopram 20 mg tab(s) (CeleXA) 20 mg ORAL DAILY Jose L Tetyuk 20 mg at08/03/18 0807levothyroxine 150 mcg (SYNTHROID) 150 mcg ORAL DAILY (6 AM) Jose L Jwfcgv648 mcg at 08/04/18 0604ondansetron 4 mg tab(s) (ZOFRAN) 4 mg ORAL q 6 H PRN Jose L TetyukOrondansetron (PF) 4 mg injection (ZOFRAN) 4 mg INTRAVENOUS q 6 H PRNNatalia Tetyukacetaminophen 650 mg tab(s) (TYLENOL) 650 mg ORAL q 6 H PRN Jose L TetyuksitaGLIPtin 50 mg tab(s) (JANUVIA) 50 mg ORAL DAILY WITH BREAKFAST NataliaTetyuk 50 mg at 08/03/18 0806atorvastatin 10 mg tab(s) (LIPITOR) 10 mg ORAL AT BEDTIME Jose L Khskxb53 mg at 08/03/18 1956Allergies: ALLERGIESNo Known AllergiesDOS EXAM: Adequate NPO status: YesAnesthetic risks, benefits, alternatives, personnel and consent discussed:YesPatient agrees to proceed: YesPrevious Anesthesia: No history of adverse event.Airway Assessment: MP 2; Neck ROM: Full ROM without neurologic symptoms;Airway Evaluation: No significant abnormalitiesSymptoms of Sleep Apnea: Hypertension, Age over 50 (58 year old) and MalegenderDentition: Teeth intact. Denies loose teeth or capsAdditional Physical Exam:Lungs: Patient health status unchanged since recent history and physical.See history and physical for exam findings.Cardiac: Patient health status unchanged since recent history andphysical. See history and physical for exam findings.Additional Pertinent Findings: N/ABlood Products: Not anticipated for this procedure.Anesthetic Plan: MAC with SedationPain Management Plan: Parenteral or OralASA Class: 4Other Medical Problems: GIB, anemia s/p 3 units PRBC (Hgb 5.9 to 7.7 thisAM), ESRD s/p HD/UF yesterday, pulmonary edema likely 2/2 volume overloadthat improved with diuresis, DM2, HTN, DAVID on BIPAP, hypothyroidChronic Beta Gabby medication administered within 24 hours: N/AI have interviewed and examined the patient. I have reviewed the medicalrecord and/or the pre-anesthesia evaluation, pertinent labs, and testresults.Significant changes in the patient's condition since the History andPhysical, not otherwise documented in primary service progress notes: NoThis contains updated information obtained within 48 hours ofSurgery/Procedure.SIGNATUR E: Lobito Moraes MD PATIENT NAME: Robert JacquesATE: August 04, 2018 : 8:17 AM CSN: [id number] [facility] BRIEF OP NOTon 08-04-2018 BRIEF OP NOT HNO ID: [id number] thor: Jadiel RaeService: GastroenterologyAuthor Type: PhysicianType: Brief Op NoteFiled: 08/04/2018 9:37 AMNote Text:BRIEF OPERATIVE / PROCEDURE NOTELOG ID: [id number]/PROCEDURE DATE: 08/04/2018INCISION/PROCEDURE START TIME: 9:24 AMINCISION CLOSE/PROCEDURE END TIME: 9:27 AMSURGEON(S)/PROCEDURALIST(S ) AND READING RECOVERY TEACHER(S):Surgeon(s) and Role: * Jadiel Rae - PrimaryJina Additional StaffPROCEDURE(S): EGD +/- Dilatation and BiopsyANESTHESIA: Monitored Anesthesia CareFINDINGS: patulous GE junction, and undigested food in stomach reflectiveof gastroparesis. Blood noted in posterior pharynx epistaxis vshemoptysis. No definite UGI source of bleedingESTIMATED BLOOD LOSS: MinimalSPECIMENS: * No specimens in log *COMPLICATIONS: NonePRE-OP/PRE-PROCEDURE DIAGNOSIS: AnemiaPOST-OP/POST-PROCEDURE DIAGNOSIS: * No post-op diagnosis entered *SIGNATURE: Jadiel Rae MD PATIENT NAME: Robert JacquesATE: August 04, 2018 : 9:33 AM PAGER/CONTACT #: Normal [facility] Comprehensive Panelon 2017 ALP enzyme act/vol 58 U/L Normal 46-116 [facility] Comment on above: Performed By: #### G FR ####[facility] [place], [place] [address] Bilirubin mass conc 1.0 mg/dL Normal 0.2-1.0 [facility] Comment on above: Performed By: #### G FR ####[address] [address] Protein mass conc 7.6 g/dL Normal 6.4-8.2 [facility] Comment on above: Performed By: #### G FR ####[address] [address] AST enzyme act/vol 17 U/L Normal 9-37 [facility] Comment on above: Performed By: #### G FR ####[address] [address] Creatinine mass conc 7.59 mg/dL High 0.67-1.17 [facility] Comment on above: Performed By: #### G FR ####[address] [address] ALT enzyme act/vol 16 U/L Normal 12-78 [facility] Comment on above: Performed By: #### G FR ####[address] [address] Albumin mass conc 2.3 g/dL Low 3.4-5.0 [facility] Comment on above: Performed By: #### G FR ####[address] [address] Anion gap 3 molar conc 14 mmol/L Normal 8-16 [facility] Comment on above: Performed By: #### G FR ####[facility] [place], [place] [address] Calcium mass conc 8.7 mg/dL Normal 8.5-10.1 [facility] Comment on above: Performed By: #### G FR ####[facility] [place], [place] [address] CO2 molar conc 25 mmol/L Normal 21-32 [facility] Comment on above: Performed By: #### G FR ####[facility] [place], [place] [address] Glucose mass conc 73 mg/dL Normal 70-99 [facility] Comment on above: Performed By: #### G FR ####[address] [address] Urea nitrogen mass conc 47 mg/dL High 7-18 [facility] Comment on above: Performed By: #### G FR ####[address] [address] Chloride molar conc 98 mmol/L Normal 98-107 [facility] Comment on above: Performed By: #### G FR ####[address] [address] Potassium molar conc 4.3 mmol/L Normal 3.5-5.1 [facility] Comment on above: Performed By: #### G FR ####[address] [address] Sodium molar conc 133 mmol/L Low 136-145 [facility] Comment on above: Performed By: #### G FR ####[address] [address] [place] 08-04-2018 Hematocrit Auto Volume Fraction (Bld) 28.2 % Low 40.1-51.0 [facility] Comment on above: Performed By: #### G FR ####[address] [address] Hematocrit Auto Volume Fraction (Bld) 24.4 % Low 40.1-51.0 [facility] Comment on above: Performed By: #### P 8 ####[place] [address] Hematocrit Auto Volume Fraction (Bld) 25.9 % Low 40.1-51.0 [facility] Comment on above: Performed By: #### P 8 ####[address] [address] [place] 08-04-2018 Hemoglobin mass conc (Bld) 8.7 g/dL Low 13.7-17.5 [facility] Comment on above: Performed By: #### G FR ####[place] [address] Hemoglobin mass conc (Bld) 7.7 g/dL Low 13.7-17.5 [facility] Comment on above: Performed By: #### P 8 ####[place] [id number] Hemoglobin mass conc (Bld) 8.1 g/dL Low 13.7-17.5 [facility] Comment on above: Performed By: #### P 8 ####[place] [address] OPERATIVE NOon 08-04-2018 OPERATIVE NO HNO ID: [id number] thor: Jadiel RaeService: GastroenterologyAuthor Type: PhysicianType: Operative ReportFiled: 08/12/2018 9:33 AMNote Text:[facility] - Operative ReportSURGEON: DEMETRIUS GambinoATIENT NAME: ROBERT MCCRARY RMRN: [id number] CSN: [id number] OF SURGERY: 08/04/2018DATE OF : 1960 SEX/AGE: M/58PATIENT TYPE: I HOSP SVC: INTM LOCATION: [id number] OF SURGERY: 08/04/2018SURGEON: Jadiel Rae MDNAME OF PROCEDURE: Esophagogastroduodenoscopy.I NDICATION: Anemia.POSTPROCEDURE DIAGNOSES:1. Blood noted in the posterior pharynx, hence epistaxis versus hemoptysiscannot be ruled out.2. Patulous gastroesophageal junction.3. Small hiatal hernia.4. Gastroparesis.5. No obvious source of upper gastrointestinal bleeding.PROCEDURE NOTE: An informed consent was obtained after discussing risks.Among risks discussed were not limited to perforation, bleeding,infection, and effects of sedation. The patient was placed in leftdecubitus position. Sedation was provided per Anesthesia. An EGD scopepassed per oral route and advanced under direct visualization to thedescending duodenum. Following are the findings. 1. Esophagus: GEjunction noted to be patulous. There was also a small hiatal hernia noted.2. Stomach: In the body of the stomach and fundus, there were undigestedfood reflective of gastroparesis. No gross blood noted. No gross bleedingin the stomach seen.3. Duodenal bulb normal.4. Descending duodenum normal.ASSESSMENT:1. In view of blood in the posterior pharynx, an epistaxis, posteriornasal bleeding and hemoptysis may have to be ruled out.2. Gastroparesis.3. Patulous gastroesophageal junction.PLAN: To keep the patient on clear liquid diet to monitor hemoglobin andhematocrit and to pursue other sources of bleeding as mentioned above.Jadiel Rae MDGastroenterologySMA:modlD: 08/04/2018 09:40:29T: 08/04/2018 20:20:17Job #: [id number]:Jadiel Rae MD [facility] PROGRESSon 08-04-2018 Protein mass conc HNO ID: [id number] thor: Carlos Robinervice: [facility] MedicineAuthor Type: PhysicianType: Progress NotesFiled: 08/04/2018 5:22 PMNote Text:INPATIENT PROGRESS NOTEAfter 7pm, please call cross cover pager #[phone] DATE: August 04, 2018SERVICE TIME: 5:13 PMPRIMARY SERVICE: Hospital MedicineSubjectiveCHIEF COMPLAINT: Here for : problems listed belowActive Hospital Problems Diagnosis Date Noted- Melena 08/02/2018- Hypothyroidism 08/03/2018- Hypoxia 08/03/2018- Acute blood loss anemia 08/02/2018- ESRD (end stage renal disease) (HCC) 08/02/2018- DM (diabetes mellitus), type 1 with neurological complications (HCC)08/02/2018- Essential hypertension 08/02/2018INTERVAL HPI:SOB improved after dialysis, attempting to wean O2 todayHEENT: Negative for nasal congestion and post-nasal dripCARDIOVASCULAR: Negative for palpitationsGI: negative for nausea/ emesisGU: negative for dysuria, urgency , frequencyMUSCULOSKELETAL: negative for pains/achesSKIN: Negative for rashPSYCH: Negative for active stressors, depression and anxietyENDOCRINE: Negative for polyuria and polydipsiaNEURO: Negative for cognitive changes and morning headachesAll other review of systems reviewed and are negative unless other wisestated in the HPI or the ROSCurrent hospital medications:pantoprazole 40 mg injection (PROTONIX) 40 mg INTRAVENOUS DAILY (6 AM)ipratropium-albuterol 3 mL nebulizer solution (DUONEB) 3 mL INHALATION q 4H PRNheparin 1,000 unit/mL 3,200 Units injection 3,200 Units INTRALUMINAL PRNDIALYSISlisinopril 10 mg tab(s) (ZESTRIL, PRINIVIL) 10 mg ORAL DAILYcitalopram 20 mg tab(s) (CeleXA) 20 mg ORAL DAILYlevothyroxine 150 mcg (SYNTHROID) 150 mcg ORAL DAILY (6 AM)ondansetron 4 mg tab(s) (ZOFRAN) 4 mg ORAL q 6 H PRNondansetron (PF) 4 mg injection (ZOFRAN) 4 mg INTRAVENOUS q 6 H PRNacetaminophen 650 mg tab(s) (TYLENOL) 650 mg ORAL q 6 H PRNsitaGLIPtin 50 mg tab(s) (JANUVIA) 50 mg ORAL DAILY WITH BREAKFASTatorvastatin 10 mg tab(s) (LIPITOR) 10 mg ORAL AT BEDTIMEObjectivePHYSICAL EXAM:BP 134/74 Pulse 85 Temp (Src) 97.9 (Oral) Resp 16 Ht 5' 10(1.78m) Wt 178 lb 12.8 oz (81.1kg) SpO2 97% BMI 25.66 kg/(m2).Constitutional - Vitals as above, not in acute distressResp - Clear to auscultate both sides, no wheezes, crackles or rales, nolabored breathingCVS- RRR. No murmur, gallop or rub, pulse 2+GI - NTND, bowel sounds normally heard, no mass palpableCNS- cranial nerves 2 to 12 grossly intact, no focal motor or sensorydeficits noted, speech normal/Psych- A ANDO x 3, mood normalSkin- Normal tugor, no ulcers or rashesDATA:Diagnostic tests reviewed for today's visit:Most recent labs and imaging results.Hemoglobin (g/dL)Date 11/03/2012 13.4 HGB (g/dL)Date 08/04/2018 8.7 Hematocrit (%)Date 08/04/2018 28.2 WBC (thou/cmm)Date 08/03/2018 19.26 Glucose (mg/dL)Date 08/04/2018 73 Potassium (mEq/L)Date 08/04/2018 4.3 Sodium (mEq/L)08/04/2018 133 Chloride (mEq/L)08/04/2018 98 CO2 (mEq/L)08/04/2018 25 Creatinine (mg/dL)08/04/2018 7.59 BUN (mg/dL)08/04/2018 47 Anion Gap (no units)08/04/2018 14 Calcium (mg/dL)08/04/2018 8.7 Protein, Total (g/dL)08/04/2018 7.6 Albumin (g/dL)08/04/2018 2.3 Bilirubin, Total (mg/dL)Date 08/04/2018 1.0 Alkaline Phosphatase (U/L)08/04/2018 58 AST (U/L)08/04/2018 17 ALT (U/L)08/04/2018 16 Assessment/PlanP rincipal Problem:Acute hypoxic respiratory failure : I have ordered an extensive workupincluding EKG and chest x-ray ventilation/perfusion scan ABGs. It seemsthat the patient on chest x-ray has pulmonary edema. I asked the patientif he has any cardiac condition he stated that there was an echo doneapproximately 3 days ago when he was in was temperature that showedpossible heart failure. At a conversation with the passenger representative regardingdiuresing the patient. He ordered Lasix 80 mg IV, and the patient will goto dialysis today and they will try to remove 3-4 L of fluids.Graciously, passenger representative also has access to records, he will present tothe echocardiogram and place it on the chart tomorrow. This could beeither CHF exacerbation or fluid overload.I placed him on continuous pulseox and monitor monitoring for now also.August 04, 2018----> echo results sent by nephrology , Normal EF, no DD. Most likely wasfluid overloaded. . I will attempt to wean O2 today. Melena POA: Yes Assessment AND Plan: gastroenterology on board, every 8 hourshemoglobinand hematocrit shows decreasehe status post 3 units of PRBCs. We'llcontinue to monitor for bleeding. I I've sent for type and screen againand we'll consent the patient tonight.*------>August 04, 2018 , patient went for EGD today , awaiting GI recs,H/H stable ESRD (end stage renal disease) ([facility]) POA: Yes Assessment AND Plan: dialysis today per nephrology DM (diabetes mellitus), type 1 with neurological complications ([facility])POA: Yes Assessment AND Plan: continue home Januvia every 4 checks of bloodglucose. for now appears to be close to normal glycemic Essential hypertension POA: Yes Assessment AND Plan: mildly hypertensive today, however he will undergodialysis we'll reevaluate tomorrowSept2017----> restarted home meds today Hypothyroidism POA: Unknown Assessment AND Plan: continue home medicationsResolved Problems: * No resolved hospital problems. *Medication and Non-Pharmacologic VTE Prophylaxis/AnticoagulantsAn ticoagulant AND Antiplatelet Medications Start Dose Route Frequency Ordered Stop 08/03/18 1335 heparin 1,000 unit/mL 3,200 Units injection 3,200 Units INTRALUMINAL PRN DIALYSIS 08/03/18 1336 --08/03/18 0030 pneumatic compression stockings (hi,dc)08/02/181999 vte non-pharmacologic prophylaxis - none indicated (hi,dc)08/02/181999 activity - mobilize patient (hi,dc)VTE Prophylaxis: reviewed the heparin protocol, have DC'd the heparin 5000twice a day due to active bleeding.Dispo: pending GI recommendationsSIGNATURE: Carlos Mei MD PATIENT NAME: Robert JacquesATE: August 04, 2018 : 5:21 PM PAGER: emma Coffman , After 7pm, please call cross coverpager #[phone] [facility] Protein mass conc HNO ID: [id number] thor: Marco Antonio Ramos: NephrologyAuthor Type: PhysicianType: Progress NotesFiled: 08/04/2018 11:02 AMNote Text:Nephrology Progress NoteFollowing for ESRD.Pt denies CP. SOB is better.No increase in edema.Current Inpatient Medications:Current Facility-Administered Medications Ordered in Epic:pantoprazole 40 mg injection (PROTONIX) 40 mg INTRAVENOUS DAILY (6 AM)Jose L Tetyuk 40 mg at 08/04/18 0604ipratropium-albuterol 3 mL nebulizer solution (DUONEB) 3 mL INHALATION q 4H PRN Carlos Mei 3 mL at 08/03/18 0927heparin 1,000 unit/mL 3,200 Units injection 3,200 Units INTRALUMINAL PRNDIALYSIS Sky Dasarilisinopril 10 mg tab(s) (ZESTRIL, PRINIVIL) 10 mg ORAL DAILY NataliaTetyuk 10 mg at 08/03/18 0807citalopram 20 mg tab(s) (CeleXA) 20 mg ORAL DAILY Jose L Tetyuk 20 mg at08/03/18 0807levothyroxine 150 mcg (SYNTHROID) 150 mcg ORAL DAILY (6 AM) Jose L Gsyrpn196 mcg at 08/04/18 0604ondansetron 4 mg tab(s) (ZOFRAN) 4 mg ORAL q 6 H PRN Jose L TetyukOrondansetron (PF) 4 mg injection (ZOFRAN) 4 mg INTRAVENOUS q 6 H PRNNatalia Tetyukacetaminophen 650 mg tab(s) (TYLENOL) 650 mg ORAL q 6 H PRN Jose L TetyuksitaGLIPtin 50 mg tab(s) (JANUVIA) 50 mg ORAL DAILY WITH BREAKFAST NataliaTetyuk 50 mg at 08/03/18 0806atorvastatin 10 mg tab(s) (LIPITOR) 10 mg ORAL AT BEDTIME Jose L Etkigq97 mg at 08/03/18 1956No current [facility]-ordered outpatient prescriptions on file.Vitals:BP 130/53 Pulse 73 Temp 36.6 ?C (97.9 ?F) (Oral) Resp 16 Ht177.8 cm (5' 10) Wt 81.1 kg (178 lb 12.8 oz) SpO2 98% BMI 25.66kg/m?BLOOD PRESSURE RANGE: Systolic (24hrs), Av , Min:130 , Max:162; Diastolic (24hrs), Av, Min:38, Max:8224HR INTAKE/OUTPUT:Intake/Output Summary (Last 24 hours) at 08/04/18 1046Last data filed at 08/04/18 0937 Gross per 24 hourIntake 860 mlOutput 3700 mlNet -2840 mlPhysical exam:Constitutional: NADSkin: no rash, turgor wnlHeent: mmmNeck: no bruits or jvd notedCardiovascular: S1, S2 normalRespiratory: CTABAbdomen: +bs, soft, nt, ndExt: no lower extremity edemaData:Labs:Recent Labs 08/03/1822WBC -- -- -- 19.26* 15.73*HB 7.7* 8.1* 7.4* 8.4* 8.5*HCT 24.4* 25.9* 24.0* 27.2* 26.7*MCV -- -- -- 88.0 86.1PLT -- -- -- 384* 356Recent Labs 08/02/1820NA 135* 138K 4.7 3.7CO2 25 30BUN 22* 14CREAT 4.72* 4.09*CA 8.5 8.5Assessment and Plan1. ESRD. Usually dialyzes on TTS at [facility]. Dr. Gallardo his primary passenger representative.Will arrange for dialysis tomorrow on his usual schedule.No need for dialysis today.2. Dyspnea. Improved but not back to baseline.Will continue O>I with HD tomorrow. Echo (from [facility]) did notshow systolic dysfunction per Dr. Acosta.Suspect pulmonary edema may be due to volume OL. Will continue more UFwith dialysis tomorrow. Will need to establish a new TW (Current TW is 87kg at out dialysis center).3. Anemia. Likely partly due to CKD. Continue ARSH with HD.Has a history of melena but EGD did not show active bleed.Will continue to hold heparin with HD since Hgb is still declining.Further work up for anemia as per hospitalist.4. HTN. BP is controlled. Continue current med (lisinopril).Watch BP as we establish new TW.Please do not hesitate to contact me at [phone] if there is anyquestion or concern.Erwin Moctezuma MD (Marco Antonio Rodney) [facility] PT EDon 08-04-2018 PT ED HNO ID: [id number] thor: Keiko (Rn) ETELVINA Valdezervice: (none)Author Type: Registered NurseType: Patient EducationFiled: 08/04/2018 7:45 AMNote Text:PRE OP LEARNING ASSESSMENTPROCEDURE/SURGERY: GI PROCEDURES: EGDREADINESS TO LEARNCOGNITIVE ABILITY: Alert and orientedMOTIVATION TO LEARN: InterestedFAMILY SUPPORT: Unable to assess - Family not presentPATIENT LEARNS BEST BY: Verbal InstructionFACTORS AFFECTING LEARNING: NonePHYSICAL LIMITATIONS AFFECTING LEARNING: NoneElectronically Signed By: Keiko Valdez RN In Department: [place] 3200TCU/MED [facility] Basic Panelon 08-03-2018 Anion gap 3 molar conc 14 mmol/L Normal 8-16 [facility] Comment on above: Performed By: #### P 8 ####[place] [address] Potassium molar conc 4.7 mmol/L Normal 3.5-5.1 [facility] Comment on above: Result Comment: SPEC IMEN SLIGHTLY HEMOLYZED Performed By: #### P 8 ####[facility] [place], [place] [address] Creatinine mass conc 4.72 mg/dL High 0.67-1.17 [facility] Comment on above: Performed By: #### P 8 ####[address] [address] CO2 molar conc 25 mmol/L Normal 21-32 [facility] Comment on above: Performed By: #### P 8 ####[address] [address] Glucose mass conc 116 mg/dL High 70-99 [facility] Comment on above: Performed By: #### P 8 ####[address] [address] Urea nitrogen mass conc 22 mg/dL High 7-18 [facility] Comment on above: Performed By: #### P 8 ####[address] [address] Calcium mass conc 8.5 mg/dL Normal 8.5-10.1 [facility] Comment on above: Performed By: #### P 8 ####[address] [address] Chloride molar conc 101 mmol/L Normal 98-107 [facility] Comment on above: Performed By: #### P 8 ####[address] [address] Sodium molar conc 135 mmol/L Low 136-145 [facility] Comment on above: Performed By: #### P 8 ####[address] [address] Blood Gas Arterialon 018 Base Excess 3.7 mEq/L Normal -2.5 to 2.5 [facility] Comment on above: Performed By: #### A BG ####[address] [address] FIO2 40 % Normal [facility] Comment on above: Performed By: #### A BG ####[facility] [place] [address] HCO3 molar conc (Bld) 27.6 mmol/L High 22.0-26.0 [facility] Comment on above: Performed By: #### A BG ####[facility] [place], [place] [address] O2% Sat Arterial 94.8 % Low 95.0-98.0 [facility] Comment on above: Performed By: #### A BG ####[facility] [place] [address] PCO2 Arterial 38.2 mm Hg Normal 36.0-46.0 [facility] Comment on above: Performed By: #### A BG ####[place] [address] pH Arterial 7.476 High 7.350-7.45 0 [facility] Comment on above: Performed By: #### A BG ####[place] [address] PO2 Arterial 66.6 mm Hg Low 85.0-96.0 [facility] Comment on above: Performed By: #### A BG ####[place] [address] Body temperature 37 Normal [facility] Comment on above: Performed By: #### A BG ####[place] [address] CHEST 1 VIEWon 08-03-2018 Protein mass conc Performed at [facility] APPROVED BY: Pam Garcia MD EXAM TITLE: CHEST 1 VIEW DATE: 08/03/2018 09:22 INDICATION: Acute respiratory distress COMPARISON: None. FINDINGS: There is diffuse interstitial and airspace disease in a pattern that is suggestive of pulmonary edema. Heart size is within normal range. There is a right-sided dialysis type catheter with its tip near the cavoatrial junction. Bony structures are intact. IMPRESSION: Pulmonary edema Normal [facility] CONSULTon 08-03-2018 CONSULT HNO ID: [id number] thor: Sky DasariService: NephrologyAuthor Type: PhysicianType: ConsultsFiled: 08/03/2018 12:23 PMNote Text:Robert Mccrary is a 58 yo male presented to hospital with severe anemia.Renal service consulted for ESRD.ESRD on HD TTS schedule. [place] Received PRBC overnight. Currentlycomplains of dyspneaRecent colonoscopy done [place] - apparently was negativeSeen by GI. Likely EGD tomorrow on saturday.PAST MEDICAL HISTORYDiagnosis Date- Depression- DM (diabetes mellitus) (HCC)- ESRD (end stage renal disease) (HCC)- HTN (hypertension)- Hyperlipidemia- HypothyroidPAST SURGICAL HISTORYProcedure Laterality Date- HERNIA REPAIR HX 1983 inguinal- REPAIR UMBILICAL JAMES,5+Y/O,REDUC 11/19/12 with meshSocial History Marital status: Spouse name: Years of education: Number of children:Social History Main Topics Smoking status: Never Smoker Smokeless tobacco: Current User Types: SnuffCurrent Facility-Administered Medications:pantoprazole 40 mg injection (PROTONIX) 40 mg INTRAVENOUS DAILY (6 AM)Jose L Tetyuk 40 mg at 08/03/18 0557ipratropium-albuterol 3 mL nebulizer solution (DUONEB) 3 mL INHALATION q 4H PRN Carlos Mei 3 mL at 08/03/18 0927furosemide 80 mg injection (LASIX) 80 mg INTRAVENOUS ONCE JayaprakashDasarilisinopril 10 mg tab(s) (ZESTRIL, PRINIVIL) 10 mg ORAL DAILY NataliaTetyuk 10 mg at 08/03/18 0807citalopram 20 mg tab(s) (CeleXA) 20 mg ORAL DAILY Jose L Tetyuk 20 mg at08/03/18 0807levothyroxine 150 mcg (SYNTHROID) 150 mcg ORAL DAILY (6 AM) Jose L Rqrukn514 mcg at 08/03/18 0557ondansetron 4 mg tab(s) (ZOFRAN) 4 mg ORAL q 6 H PRN Jose L TetyukOrondansetron (PF) 4 mg injection (ZOFRAN) 4 mg INTRAVENOUS q 6 H PRNNatalia Tetyukacetaminophen 650 mg tab(s) (TYLENOL) 650 mg ORAL q 6 H PRN Jose L Tetyukheparin 5,000 Units injection 5,000 Units SUBCUTANEOUS q 12 H NataliaTetyuk 5,000 Units at 08/03/18 0807sitaGLIPtin 50 mg tab(s) (JANUVIA) 50 mg ORAL DAILY WITH BREAKFAST NataliaTetyuk 50 mg at 08/03/18 0806atorvastatin 10 mg tab(s) (LIPITOR) 10 mg ORAL AT BEDTIME Jose L Myjroi65 mg at 08/02/18 2053Prescriptions Prior to Admission:acetaminophen-HYDR Ocodone 5-500 mg tablet Take 1-2 tablets by mouth every4 hours as needed. Disp: 40 tablet Rfl: 1SIMVASTATIN 20 mg tablet once daily. Disp: Rfl:LISINOPRIL 10 mg tablet once daily. Disp: Rfl:SYNTHROID 150 mcg tablet once daily. Disp: Rfl:CITALOPRAM 20 mg tablet once daily. Disp: Rfl:KOMBIGLYZE XR 2.5-1,000 mg TM24 twice daily. Disp: Rfl:ALLERGIESNo Known Allergies 08/03/18097BP: 162/70Pulse: 82 82 84Resp: 18 18 18Temp:TempSrc:SpO2: 95% 96% 94%Weight:Height:General. No obvious distressHEENT. No pallor, icterus, JVDHeart S1, X0Ohkyz clearAbdomen softNo edemaNo cyanosisNo rashAAO x 3Recent Labs 08/02/1820WBC 19.26* 15.73*HB 8.4* 8.5*HCT 27.2* 26.7*PLT 384* 356NA 135* 138K 4.7 3.7CHLOR 101 99CO2 25 30CREAT 4.72* 4.09*BUN 22* 14GLUC 116* 134*CA 8.5 8.5Assessment/PlanESRD. Last HD yesterday. Continue as per scheduleAnemia. Due to GI bleed. S/p PRBCDyspnea. CXR is pretty wet. Will do a UF treatment today for 3-4 L fluidremoval. Will give lasix 80 mg IV x once. He says he still makes goodamount of urine.Called dialysis staff. They will be here this afternoon for treatment Normal [facility] CONSULT HNO ID: [id number] thor: Bethel (Jeannette) Alessioe: (none)Author Type: PhysicianType: ConsultsFiled: 08/03/2018 6:26 PMNote Text:Gastroenterology Consult ServiceDepartment of Gastroenterology AND HepatologyDunn Memorial Hospital/ [facility] CampusINITIAL CONSULT NOTEPlease call [facility] cell phone [phone] directly if you havequestions till 5 PM today. After [address]Jon Rich.Case will be discussed with at 2:[address] Hendricks go for EGD on Saturday. Epic orders placed. NPO after MN tonightSERVICE DATE: 08/03/2018SERVICE TIME: 8:07 AMOpinion/advice regarding: AnemiaIMPRESSION AND PLANhis is a 58 year old male with history of ESRD-HD, DM2, HTN presented [facility] yesterday morning with sob, found to have a Hgb of 5.9,positive occult blood.Apparently recent cscope was normal.1) Anemia: corrected after 3 units of PRBC. Apparently recent C-scope 2-3months back was normal. FOBT was positive. Denies any clinically evidentGI bleed.Plan:Asked him to remind his to bring the reports of Cscope. If this isindeed normal then will need a non emergent EGD Saturday or Saturday. Hb roseappropriately after transfusion. Will keep you posted about the exacttiming of scope and will order in epic# Resusucitation measures:Maintain 2 large bore IV lines 18G size at least at all timesTransfuse to keep Hb >/+ 7 g/dl. If any history of CAD Keep Hb >/= 9 g/dl protonix 40 mg IV BIDAdmit to ICU if BP <90/60, HR >100 /orthostatic hypotensionTake vitals every 4 hours on RNF, Cycle CBc dailyAvoid all NSAIDS. If NSAIDS are indicated for any reasons pleas euse GUERRA-2inhibitors at low dose and overlap w their use with po PPIs.CC: AnemiaHPI:This is a 58 year old male with history of ESRD-HD, DM2, HTN presented [facility] yesterday morning with sob, found to have a Hgb of 5.9 (per primary team H and P review), positive occult blood. He had 3U PRBCstransfused, sent to [facility] for GI evaluation. Patient had a colonoscopy doneone month ago by Dr. Owens, no acute findings. has reports and willbring them in todayHe denies any obvious GI bleed in form of melena , hemetemsis, BRBPR. Nopain abdomen?Results for ROBERT MCCRARY ( ) as of 08/03/2018 08:08 Ref. Range 11/03/2012 15:56 08/02/2018 20:50 08/03/2018 06:05WBC Latest Ref Range: 4.23 - 9.07 thou/cmm 10.59 15.73 (H) 19.26 (H)RBC Latest Ref Range: 4.63 - 6.08 mil/cmm 4.84 3.10 (L) 3.09 (L)HGB Latest Ref Range: 13.7 - 17.5 g/dL 8.5 (L) 8.4 (L)Pertinent Review of Systems:GENERAL: No weight loss, malaise or fevers. SEE HPINECK: Negative for lumps, goiter, pain and significant neck swellingRESPIRATORY: shortness of breath.CARDIOVASCULAR: Negative for chest pain, leg swelling or palpitations.GI: See HPIMUSCULOSKELETAL: Negative for joint pain or swelling, back pain or musclepain.HEMATOLOGY/LYMPHO LOGY Negative for prolonged bleeding, bruising easily orswollen nodes.ENDOCRINE: Negative for cold or heat intolerance, polyuria, polydipsia andgoiter.NEURO: No history of headaches, syncope, paralysis, seizures or tremorsAll other reviewed and negative other than HPI.PAST MEDICAL HISTORY:PAST MEDICAL HISTORYDiagnosis Date- Depression- DM (diabetes mellitus) (HCC)- ESRD (end stage renal disease) (HCC)- HTN (hypertension)- Hyperlipidemia- HypothyroidPAST SURGICAL HISTORY:PAST SURGICAL HISTORYProcedure Laterality Date- HERNIA REPAIR HX 1983 inguinal- REPAIR UMBILICAL JAMES,5+Y/O,REDUC 11/19/12 with meshFAMILY HISTORY:FAMILY HISTORYProblem Relation Age of Onset- Alcohol/Drug Sister- Stroke Father- Heart FatherSOCIAL HISTORY:Social HistorySubstance Use Topics- Smoking status: Never Smoker- Smokeless tobacco: Current User Types: Snuff- Alcohol use Not on file Comment: 1/monthMEDICATIONS:Prior to Admission Medications:acetaminophen-HY DROcodone 5-500 mg tablet Take 1-2 tablets by mouth every4 hours as needed.SIMVASTATIN 20 mg tablet once daily.LISINOPRIL 10 mg tablet once daily.SYNTHROID 150 mcg tablet once daily.CITALOPRAM 20 mg tablet once daily.KOMBIGLYZE XR 2.5-1,000 mg TM24 twice daily.Current hospital medications:pantoprazole 40 mg injection (PROTONIX) 40 mg INTRAVENOUS DAILY (6 AM)lisinopril 10 mg tab(s) (ZESTRIL, PRINIVIL) 10 mg ORAL DAILYcitalopram 20 mg tab(s) (CeleXA) 20 mg ORAL DAILYlevothyroxine 150 mcg (SYNTHROID) 150 mcg ORAL DAILY (6 AM)ondansetron 4 mg tab(s) (ZOFRAN) 4 mg ORAL q 6 H PRNondansetron (PF) 4 mg injection (ZOFRAN) 4 mg INTRAVENOUS q 6 H PRNacetaminophen 650 mg tab(s) (TYLENOL) 650 mg ORAL q 6 H PRNheparin 5,000 Units injection 5,000 Units SUBCUTANEOUS q 12 HsitaGLIPtin 50 mg tab(s) (JANUVIA) 50 mg ORAL DAILY WITH BREAKFASTmetFORMIN 1,000 mg tab(s) (GLUCOPHAGE) 1,000 mg ORAL DAILY WITH BREAKFASTatorvastatin 10 mg tab(s) (LIPITOR) 10 mg ORAL AT BEDTIMEALLERGIES:ALLERGIESNo Known AllergiesOBJECTIVE:PHYSICAL EXAM:BP 163/69 Pulse 91 Temp (Src) 97.9 (Oral) Resp 20 Ht 5' 10(1.78m) Wt 185 lb (83.9kg) SpO2 95% BMI 26.54 kg/(m2).General appearance: JBs9Riqs: Skin color, texture, turgor normal, no rash.Eyes: Anicteric sclera. No palor.Oropharynx: Lips, mucosa, and tongue normal.Lungs: lungs clear to auscultation, no wheezing or rhonchiHeart: RRRAbdomen soft, non-tender. Bowel sounds normal. No masses or organomegaly.Mild umbilical pouting from hernia repairExtremities: Extremities normal. No deformities, No edema.DATA:CBC, Coags, BMP, Mg, PhosRecent Labs 08/02/1820WBC 19.26* 15.73*HB 8.4* 8.5*HCT 27.2* 26.7*PLT 384* 356NA 135* 138K 4.7 3.7CHLOR 101 99CO2 25 30BUN 22* 14CREAT 4.72* 4.09*GLUC 116* 134*CA 8.5 8.5Liver Function, Amylase, AND LipaseThis note is not final till staffed by GI attendingBethel Potter in [facility]astroenterology and HepatologyGen[facility] Hospital pager: [phone] Memorial Hospital Cell phone: [phone]: Bethel Lagunas MD PATIENT NAME: Robert JacquesATE: August 03, 2018 : 8:07 AM PAGER/CONTACT #: [phone]/ [facility] cellphone:[phone] Normal [facility] EKG (AK,AV,EU,FV,HL,MIL,MM,SP )on 08-03-2018 Protein mass conc NAME : ROBERT MCCRARY PID : [id number] : 1960 Gender : MaleRace : CaucasianORD : [id number] Procedure Date : Aug 03 2018 09:16Edit Date : Aug 04 2018 10:15 Diagnosis:NORMAL SINUS RHYTHMNORMAL ECGConfirmed by MD Whalen Vinay ([id number]) on 08/04/2018 10:15:03 AM Ventricular Rate : 81 BPMAtrial Rate : 81 BPMP-R Interval : 132 msQRS Duration : 80 msQ-T Interval : 412 msQTC Calculation(Bezet) : 478 msP Evergreen : 53 degreesR Evergreen : 12 degreesT Evergreen : 31 degrees Test Reason : Cough Location : 183 : TCU POOL Overread By : MD Whalen VinayEditted By : MD Whalen VinayReferred By : CARLOS MEIAcquired by : Macy Hays [facility] Hcton 08-03-2018 Hematocrit Auto Volume Fraction (Bld) 24.0 % Low 40.1-51.0 [facility] Comment on above: Performed By: #### P 8 ####[place] [address] Hemogramon 08-03-2018 Erythrocyte distribution width Auto Ratio (RBC) 15.4 % High 11.6-14.4 [facility] Comment on above: Performed By: #### C BC1 ####[place] [address] Hematocrit Auto Volume Fraction (Bld) 27.2 % Low 40.1-51.0 [facility] Comment on above: Performed By: #### C BC1 ####[place] [address] Hemoglobin mass conc (Bld) 8.4 g/dL Low 13.7-17.5 [facility] Comment on above: Performed By: #### C BC1 ####[place] [address] MCH Auto Entitic mass (RBC) 27.2 pg Normal 25.7-32.2 [facility] Comment on above: Performed By: #### C BC1 ####[place] [address] MCHC Auto mass conc (RBC) 30.9 % Low 32.3-36.5 [facility] Comment on above: Performed By: #### C BC1 ####[place] [address] MCV Auto Entitic volume (RBC) 88.0 fL Normal 83.2-95.6 [facility] Comment on above: Performed By: #### C BC1 ####[place] [address] Platelet mean volume Auto Entitic volume (Bld) 9.0 fL Normal 8.7-12.0 [facility] Comment on above: Performed By: #### C BC1 ####[place] [address] Platelets Auto #/vol (Bld) 384 thou/cmm High 141-365 [facility] Comment on above: Performed By: #### C BC1 ####[address] [address] RBC Auto #/vol (Bld) 3.09 mil/cmm Low 4.63-6.08 [facility] Comment on above: Performed By: #### C BC1 ####[facility] [place] [address] RDW SD 48.5 fl High 36.1-45.8 [facility] Comment on above: Performed By: #### C BC1 ####[facility] [place] [address] WBC Auto #/vol (Bld) 19.26 thou/cmm High 4.23-9.07 [facility] Comment on above: Performed By: #### C BC1 ####[place] [address] Hgbon 08-03-2018 Hemoglobin mass conc (Bld) 7.4 g/dL Low 13.7-17.5 [facility] Comment on above: Performed By: #### P 8 ####[place] [address] LUNG VENTILATIONon 8 Protein mass conc Performed at [facility] APPROVED BY: LIBRA AGUIRRE MD LUNG SCAN CLINICAL HISTORY: Assess for pulmonary embolism. TECHNIQUE: 35.5 mCi Tc 99m DTPA aerosol inhaled5.7 mCi Tc 99m MAA IV Comparison chest x-ray: .... RESULTS: Multiple matched ventilation/perfusion abnormalities are identified in both lungs.No mismatched perfusion defects are seen. IMPRESSION: THE STUDY IS MOST CONSISTENT WITH A LOW PROBABILITY OF PULMONARY EMBOLISM. Normal [facility] NURSING PROGon 08-03-2018 Protein mass conc HNO ID: [id number] Author: Caitlin Cid) SCOTT Cornejo Service: (none) Author Type: Registered Nurse Type: Nursing Progress Note Filed: 08/03/2018 5:08 PM Note Text: Dr Mei notified of sepsis advisory note Normal [facility] Protein mass conc HNO ID: [id number] Author: Caitlin Cid) SCOTT Cornejo Service: (none) Author Type: Registered Nurse Type: Nursing Progress Note Filed: 08/03/2018 3:11 PM Note Text: Dr Mei notified of hgb 7.4 Normal [facility] Protein mass conc HNO ID: [id number] Author: Caitlin FaustinRn) SCOTT Cornejo Service: (none) Author Type: Registered Nurse Type: Nursing Progress Note Filed: 08/03/2018 1:12 PM Note Text: Dialysis at bedside to dialize patient. Order from dr Ford to d/c lasix 80 mg iv x1 Normal [facility] Protein mass conc HNO ID: [id number] Author: Caitlin (Rn) SCOTT Cornejo Service: (none) Author Type: Registered Nurse Type: Nursing Progress Note Filed: 08/03/2018 11:04 AM Note Text: Pt sent for VQ scan via cart Normal [facility] Protein mass conc HNO ID: [id number] Author: Caitlin FaustinRn) SCOTT Cornejo Service: (none) Author Type: Registered Nurse Type: Nursing Progress Note Filed: 08/03/2018 9:52 AM Note Text: Dr Mei notified of ABG results Normal [facility] Protein mass conc HNO ID: [id number] Author: Caitlni FaustinRn) SCOTT Cornejo Service: (none) Author Type: Registered Nurse Type: Nursing Progress Note Filed: 08/03/2018 9:37 AM Note Text: Troponin obtained and sent to lab. Pt sent to u/s of bilat lower ext Normal [facility] Protein mass conc HNO ID: [id number] thor: Caitlin Cid) Chantal, RNService: (none)Author Type: Registered NurseType: Nursing Progress NoteFiled: 08/03/2018 9:18 AMNote Text: Dr Mei aware of pt needing o2 at 5 l nc. Stat ekg and cxr done. Ptplaced on tele showing nsr Normal [facility] PROGRESSon 08-03-2018 Protein mass conc HNO ID: [id number] thor: Stormy FaustinRn) ETELVINA Hopkinservice: DialysisAuthor Type: Registered NurseType: Progress NotesFiled: 08/03/2018 4:56 PMNote Text:IUF completed x 2.5 hrs. 3500ml fluid removal. Access via right chest HDcath. Pt stable post tx. See HD flowsheet on chart for details. Normal [facility] Protein mass conc HNO ID: [id number] thor: Carlos Radhaervice: [facility] MedicineAuthor Type: PhysicianType: Progress NotesFiled: 08/03/2018 4:51 PMNote Text:INPATIENT PROGRESS NOTEAfter 7pm, please call cross cover pager #[phone] DATE: 08/03/2018SERVICE TIME: 4:43 PMPRIMARY SERVICE: Hospital MedicineSubjectiveCHIEF COMPLAINT: Here for : problems listed belowActive Hospital Problems Diagnosis Date Noted- Melena 08/02/2018- Hypothyroidism 08/03/2018- Acute blood loss anemia 08/02/2018- ESRD (end stage renal disease) ([facility]) 08/02/2018- DM (diabetes mellitus), type 1 with neurological complications ([facility])08/02/2018- Essential hypertension 08/02/2018INTERVAL HPI:Last night started having sob , walked in and patient was using 5 L [id number]: Negative for nasal congestion and post-nasal dripCARDIOVASCULAR: Negative for palpitationsGI: negative for nausea/ emesisGU: negative for dysuria, urgency , frequencyMUSCULOSKELETAL: negative for pains/achesSKIN: Negative for rashPSYCH: Negative for active stressors, depression and anxietyENDOCRINE: Negative for polyuria and polydipsiaNEURO: Negative for cognitive changes and morning headachesAll other review of systems reviewed and are negative unless other wisestated in the HPI or the ROSCurrent hospital medications:pantoprazole 40 mg injection (PROTONIX) 40 mg INTRAVENOUS DAILY (6 AM)ipratropium-albuterol 3 mL nebulizer solution (DUONEB) 3 mL INHALATION q 4H PRNNaCl 0.9% iv infusion 50-200 mL INTRAVENOUS PRN DIALYSISheparin 1,000 unit/mL 3,200 Units injection 3,200 Units INTRALUMINAL PRNDIALYSISlisinopril 10 mg tab(s) (ZESTRIL, PRINIVIL) 10 mg ORAL DAILYcitalopram 20 mg tab(s) (CeleXA) 20 mg ORAL DAILYlevothyroxine 150 mcg (SYNTHROID) 150 mcg ORAL DAILY (6 AM)ondansetron 4 mg tab(s) (ZOFRAN) 4 mg ORAL q 6 H PRNondansetron (PF) 4 mg injection (ZOFRAN) 4 mg INTRAVENOUS q 6 H PRNacetaminophen 650 mg tab(s) (TYLENOL) 650 mg ORAL q 6 H PRNheparin 5,000 Units injection 5,000 Units SUBCUTANEOUS q 12 HsitaGLIPtin 50 mg tab(s) (JANUVIA) 50 mg ORAL DAILY WITH BREAKFASTatorvastatin 10 mg tab(s) (LIPITOR) 10 mg ORAL AT BEDTIMEObjectivePHYSICAL EXAM:BP 156/82 Pulse 81 Temp (Src) 97.9 (Oral) Resp 18 Ht 5' 10(1.78m) Wt 185 lb (83.9kg) SpO2 99% BMI 26.54 kg/(m2).Constitutional - Vitals as above, not in acute distressResp - Clear to auscultate both sides, no wheezes, crackles or rales, nolabored breathingCVS- RRR. No murmur, gallop or rub, pulse 2+GI - NTND, bowel sounds normally heard, no mass palpableCNS- cranial nerves 2 to 12 grossly intact, no focal motor or sensorydeficits noted, speech normal/Psych- A ANDO x 3, mood normalSkin- Normal tugor, no ulcers or rashesDATA:Diagnostic tests reviewed for today's visit:Most recent labs and imaging results.Hemoglobin (g/dL)Date Value11/03/2012 13.4 HGB (g/dL)Date Value08/03/2018 7.4 Hematocrit (%)Date Value08/03/2018 24.0 WBC (thou/cmm)Date Value08/03/2018 19.26 Glucose (mg/dL)Date Value08/03/2018 116 Potassium (mEq/L)Date Value08/03/2018 4.7 Sodium (mEq/L)Date Value08/03/2018 135 Chloride (mEq/L)Date Value08/03/2018 101 CO2 (mEq/L)Date Value08/03/2018 25 Creatinine (mg/dL)Date Value08/03/2018 4.72 BUN (mg/dL)Date Value08/03/2018 22 Anion Gap (no units)Date Value08/03/2018 14 Calcium (mg/dL)Date Value08/03/2018 8.5 Protein, Total (g/dL)Date Value11/03/2012 7.8 Albumin (g/dL)Date Value11/03/2012 4.1 Bilirubin, Total (mg/dL)Date Value11/03/2012 0.2 Alkaline Phosphatase (U/L)Date Value11/03/2012 55 AST (U/L)Date Value11/03/2012 32 ALT (U/L)Date Value11/03/2012 62 Assessment/PlanP rincipal Problem:Hypoxia: I have ordered an extensive workup including EKG and chest x-rayventilation/perfusion scan ABGs. It seems that the patient on chest x-rayhas pulmonary edema. I asked the patient if he has any cardiac conditionhe stated that there was an echo done approximately 3 days ago when he wasin was temperature that showed possible heart failure. At a conversationwith the passenger representative regarding diuresing the patient. He ordered Lasix80 mg IV, and the patient will go to dialysis today and they will try toremove 3-4 L of fluids. Graciously, passenger representative also has access torecords, he will present to the echocardiogram and place it on the charttomorrow. This could be either CHF exacerbation or fluid overload.Iplaced him on continuous pulse ox and monitor monitoring for now also. Melena POA: Yes Assessment AND Plan: gastroenterology on board, every 8 hourshemoglobinand hematocrit shows decreasehe status post 3 units of PRBCs. We'llcontinue to monitor for bleeding. I I've sent for type and screen againand we'll consent the patient tonight.*per GI he will go for EGD on Saturday (tomorrow ESRD (end stage renal disease) (HCC) POA: Yes Assessment AND Plan: dialysis today per nephrology DM (diabetes mellitus), type 1 with neurological complications (HCC)POA: Yes Assessment AND Plan: continue home Januvia every 4 checks of bloodglucose. for now appears to be close to normal glycemic Essential hypertension POA: Yes Assessment AND Plan: mildly hypertensive today, however he will undergodialysis we'll reevaluate tomorrow Hypothyroidism POA: Unknown Assessment AND Plan: continue home medicationsResolved Problems: * No resolved hospital problems. *Medication and Non-Pharmacologic VTE Prophylaxis/AnticoagulantsAn ticoagulant AND Antiplatelet Medications Start Dose Route Frequency Ordered Stop 08/03/18 1335 heparin 1,000 unit/mL 3,200 Units injection 3,200 Units INTRALUMINAL PRN DIALYSIS 08/03/18 1336 -- 08/02/181999 heparin 5,000 Units injection (Medical At Risk ) 5,000 Units SUBCUTANEOUS EVERY 12 HOURS 08/02/18 1949 --08/03/18 0030 pneumatic compression stockings (hi,oh)08/02/181999 vte non-pharmacologic prophylaxis - none indicated (hi,oh)08/02/181999 activity - mobilize patient (hi,dc)VTE Prophylaxis: reviewed the heparin protocol, have DC'd the heparin 5000twice a day due to active bleeding.Dispo: pending GI recommendationsSIGNATURE: Carlos Mei MD PATIENT NAME: Robert JacquesATE: August 03, 2018 : 4:43 PM PAGER: Meghna, emma , After 7pm, please call cross coverpager #[phone] Normal [facility] Protein mass conc HNO ID: [id number] thor: Hillary (Rt) Elaina Polancoe: (none)Author Type: TechnicianType: Progress NotesFiled: 08/03/2018 11:39 AMNote Text: RADIOLOGY SERVICE PROGRESS NOTESERVICE DATE: 08/03/2018SERVICE TIME: 11:38 AMPATIENT IDENTITY VERIFICATION COMPLETED USING TWO (2) METHODS: Patientconfirmed name and Date of verbally.PATIENT GENDER DATA: .maleALLERGIES: Reviewed and unchangedMEDICATIONS REVIEWED: YesPATIENT RELEVANT IMPLANT DATA REVIEWED: Not ApplicableCREATININE:Creatin ineDate Value Ref Range Rpxgml8208/03/2018 4.72 (H) 0.67 - 1.17 mg/dL Final08/02/2018 4.09 (H) 0.67 - 1.17 mg/dL Final11/03/2012 0.84 0.70 - 1.40 mg/dL Final eGFR-All Other RacesDate Value Ref Range Gahgra4711/03/2012 >60 . FinalComment:eGFR (Estimated GFR) Units of measure: mL/min/1.73 meters squaredeGFR is derived from the reexpressed MDRD Study equation using thefollowing parameters: serum creatinine, age, gender and race. Thecreatinine assay has been calibrated to be traceable to IDMS.An eGFR <60 mL/min/1.73m2 for >3 months is consistent with chronickidney disease. Refer to KDOQI guidelines for clinical interpretation. eGF R- AmericanDate Value Ref Range Wxrpvm0211/03/2012 >60 Final P.O.C.T. RESULTS: N/A August 03, 2018DIAGNOSTIC CT PERFORMED: NoIV SITE: Inpatient - refer to [facility] documentationPOST EXAM PIV STATUS: Inpatient see [facility] documentationPROCEDURE TYPE: VQ Scan: 0.8 mCi of Tc99m DTPA was inhaled. 5.7 mCi cdKz06h MAA was administered IV.ADMINISTRATION TIME: 11;30PATIENT DISCHARGED TO: Patient taken to IP transport area for return toRNF/ICU/ED.A Diagnostic radioactive procedure has taken place, with no furtherprecautions necessary other than routine body substance precautions. Moreinformation regarding radiation safety can be found using this link:[email or web address] [email or web address] BRAY: RT Grover PATIENT NAME: Robert JacquesATE: August 03, 2018 : 11:38 AM PAGER/CONTACT #: Normal [facility] Troponin Ion 08-03-2018 Troponin I.cardiac mass conc 0.028 ng/mL Normal 0.015-0.04 5 [facility] Comment on above: Performed By: #### P 8 ####[facility] [place] [address] Troponin I.cardiac mass conc 0.020 ng/mL Normal 0.015-0.04 5 [facility] Comment on above: Performed By: #### P 8 ####[facility] [place] [address] Troponin I.cardiac mass conc 0.018 ng/mL Normal 0.015-0.04 5 [facility] Comment on above: Performed By: #### T ROP ####[place] [address] Type and Screenon 08-03-2018 ABO group Nom (Bld) A Normal [facility] Comment on above: Performed By: #### P 8 ####[place] [address] Antibody Screen Negative Normal [facility] Comment on above: Performed By: #### P 8 ####[place] [address] Comment See Below Normal [facility] Comment on above: Result Comment: Scre en &/or Xmatch expires in 3 days at 12 midnight. Redrawpatient at that time. Performed By: #### P 8 ####[place] [address] RH Type Positive Normal [facility] Comment on above: Performed By: #### P 8 ####[place] [address] US DVT LOWER BILATERALon Protein mass conc Performed at [facility] APPROVED BY: Tani Stephenson MD Exam: Ultrasound of the right and left lower extremity with Power and Color Doppler. Date: 08/03/2018 09:50. Indication: Acute respiratory failure. Comparison: None. Technique: Real time ultrasound with grade compression and distal augmentation, as well as Doppler and color Doppler imaging of the right and left common femoral, femoral and popliteal veins were performed. Findings:No intraluminal echogenic material is noted.The venous structures demonstrate normal compressibility throughout their course.There is spontaneous flow and normal augmentation with distal compression at all levels. IMPRESSION: No evidence of deep venous thrombosis within either the right or left common femoral vein, femoral vein or popliteal vein. Normal [facility] Basic Panelon 08-02-2018 Creatinine mass conc 4.09 mg/dL High 0.67-1.17 [facility] Comment on above: Performed By: #### P 8 ####[facility] [place], [place] [address] Anion gap 3 molar conc 13 mmol/L Normal 8-16 [facility] Comment on above: Performed By: #### P 8 ####[facility] [place], [place] [address] CO2 molar conc 30 mmol/L Normal 21-32 [facility] Comment on above: Performed By: #### P 8 ####[address] [address] Glucose mass conc 134 mg/dL High 70-99 [facility] Comment on above: Performed By: #### P 8 ####[facility] [place], [place] [address] Urea nitrogen mass conc 14 mg/dL Normal 7-18 [facility] Comment on above: Performed By: #### P 8 ####[address] [address] Calcium mass conc 8.5 mg/dL Normal 8.5-10.1 [facility] Comment on above: Performed By: #### P 8 ####[facility] [place], [place] [address] Chloride molar conc 99 mmol/L Normal 98-107 [facility] Comment on above: Performed By: #### P 8 ####[address] [address] Potassium molar conc 3.7 mmol/L Normal 3.5-5.1 [facility] Comment on above: Performed By: #### P 8 ####[address] [address] Sodium molar conc 138 mmol/L Normal 136-145 [facility] Comment on above: Performed By: #### P 8 ####[place] [id number] HISTORY PHYSICALon 8 HISTORY PHYSICAL HNO ID: [id number] thor: Jose L Ospina: Hospital MedicineAuthor Type: PhysicianType: HANDPFiled: 08/02/2018 8:22 PMNote Text:[facility] MEDICINEHISTORY AND PHYSICAL EXAMSERVICE DATE: 08/02/2018SERVICE TIME: 7:49 PMPrimary Care Physician: Marques Reveles MDNIGHT AND WEEKEND COVERAGE:After 7pm, please call cross cover pager #[phone] COMPLAINT: AnemiaHPI: This is a 58 year old male with history of ESRD-HD, DM2, [facility], found to have aHgb of 5.9, positive occult blood. He had 3U PRBCs transfused, [facility] Patient had a colonoscopy done one month ago byDr. Owens, no acute findings.PAST MEDICAL HISTORYDiagnosis Date- Depression- DM (diabetes mellitus) (HCC)- ESRD (end stage renal disease) (HCC)- HTN (hypertension)- Hyperlipidemia- HypothyroidPAST SURGICAL HISTORYProcedure Laterality Date- HERNIA REPAIR HX 1983 inguinal- REPAIR UMBILICAL JAMES,5+Y/O,REDUC 11/19/12 with meshFAMILY HISTORYProblem Relation Age of Onset- Alcohol/Drug Sister- Stroke Father- Heart FatherSocial HistorySubstance Use Topics- Smoking status: Never Smoker- Smokeless tobacco: Current User Types: Snuff- Alcohol use Not on file Comment: 1/monthMEDICATIONS: ReviewedALLERGIESNo Known AllergiesREVIEW OF SYSTEM:GENERAL: No weight loss, malaise or feversHEENT: Negative for frequent or significant headaches, No changes inhearing or vision, no nose bleeds or other nasal problemsNECK: Negative for lumps, goiter, pain and significant neck swellingRESPIRATORY: Negative for cough, hemoptysis, wheezing, COPD, dyspnea orshortness of breathCARDIOVASCULAR: Negative for chest pain, leg swelling, hypertension, CHFor palpitationsGI: No nausea, vomiting, or diarrhea +melenaGU: No history of dysuria, frequency or incontinenceMUSCULOSKELETAL: Negative for joint pain or swelling, back pain or musclepainSKIN: Negative for lesions, rash, and itchingPSYCH: Negative for sleep disturbance, mood disorder and recentpsychosocial stressorsHEMATOLOGY/LYMPHOLO GY: Negative for prolonged bleeding, bruising easily orswollen nodesENDOCRINE: Negative for cold or heat intolerance, polyuria, polydipsia andgoiterNEURO: No history of headaches, syncope, paralysis, seizures or tremorsObjectivePHYSICAL EXAM:BP 165/73 Pulse 74 Temp (Src) 98.1 (Temporal Artery) Resp 18 Ht 5'10 (1.78m) Wt 185 lb (83.9kg) SpO2 92% BMI 26.54 kg/(m2).GENERAL: Alert, no distress, cooperativeSKIN: Skin color, texture, turgor normal. No rashes or lesions.HEENT: normocephalic, atraumatic, EOMI, VESTA, sclerae anictericNECK: No jugulovenous distention. Supple, no thyromegaly orlymphadenopathy. Trachea midline.LUNGS: Lungs clear to auscultation b/l, no wheezes, rhonchi or crackles.Good respiratory effort.CARDIAC: Normal S1 and S2; no rubs, murmurs, or gallopsABDOMEN: Abdomen soft, non-tender, BS normal, No masses or organomegalyEXTREMITIES: Extremities normal, no deformities, edema, clubbing or skindiscoloration. Good capillary refill., No ulcersDATA:Diagnostic tests reviewed for today's visit:Most recent labs and imaging results.Assessment/PlanActiv e Problems: Acute blood loss anemia, likely due to GI loss, positive occult bloodPOA: Yes Assessment AND Plan: s/p transfusion-monitor HANDH-consult GI for EGD ESRD (end stage renal disease) ([facility]) POA: Yes Assessment AND Plan:-consult nephrology for HD( Saturday, , DM (diabetes mellitus), POA: Yes Assessment AND Plan:-accucheck achs-continue home medications Essential hypertension POA: Yes Assessment AND Plan:-continue LisinoprilHypothyroidism-con tinue SynthroidVTE Prophylaxis: Heparin 5000 units Sub Q BIDDisposition: HomePlan of care discussed with: PatientSIGNATURE: Jose L Burns MD PATIENT NAME: Robert JacquesATE: August 02, 2018 : 7:49 PM PAGER/CONTACT #: Norbert [facility] HOSPon 08-02-2018 HOSP Patient:Callum Mccrary RMRN: Height:5' 10(1.778 m)Weight:178 lb 12.8 oz (81.103 kg)Outpatient Medications as of 08/04/18:acetaminophen-HYDROc odone 5-500 mg tabletSIMVASTATIN 20 mg tabletLISINOPRIL 10 mg tabletSYNTHROID 150 mcg tabletCITALOPRAM 20 mg tabletKOMBIGLYZE XR 2.5-1,000 mg SU98Pfokxxqzo/Clinic Administered Medications as of 08/04/18:pantoprazole 40 mg injection (PROTONIX)ipratropium-albute rol 3 mL nebulizer solution (DUONEB)heparin 1,000 unit/mL 3,200 Units injectionlisinopril 10 mg tab(s) (ZESTRIL, PRINIVIL)citalopram 20 mg tab(s) (CeleXA)levothyroxine 150 mcg (SYNTHROID)ondansetron 4 mg tab(s) (ZOFRAN)ondansetron (PF) 4 mg injection (ZOFRAN)acetaminophen 650 mg tab(s) (TYLENOL)sitaGLIPtin 50 mg tab(s) (JANUVIA)atorvastatin 10 mg tab(s) (LIPITOR)Problem List:Umbilical hernia without mention of obstruction or gangrene [K42.9]Melena [K92.1]Acute blood loss anemia [D62]ESRD (end stage renal disease) (HCC) [N18.6]DM (diabetes mellitus), 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]Essential hypertension [I10]Blood loss anemia [D50.0]Hypothyroidism [E03.9]Hypoxia [R09.02]Allergies:No Known AllergiesDate Verified:08/04/18Lab ValuesLab Value Units Date High LowPOTA* 4.7 mEq/L 08/03/2018 5.1 3.5HEMA* 24.4 % 08/04/2018 51.0 40.1Progress Notes ():Jose L Burns MD 08/02/2018 8:22 PM SignedDEPARTMENT OF [facility] MEDICINEHISTORY AND PHYSICAL EXAMSERVICE DATE: 08/02/2018SERVICE TIME: 7:49 [facility] Care Physician: Marques Reveles MDNIGHT AND WEEKEND COVERAGE:After 7pm, please call cross cover pager #[phone] COMPLAINT: AnemiaHPI: This is a 58 year old male with history of ESRD-HD, DM2, HTN presented [facility] yesterday morning with sob, found to have a Hgb of 5.9,positive occult blood. He had 3U PRBCs transfused, [facility]. Patient had a colonoscopy done one month ago by Dr. Owens, no acutefindings.PAST MEDICAL HISTORYDiagnosis Date- Depression- DM (diabetes mellitus) (HCC)- ESRD (end stage renal disease) (HCC)- HTN (hypertension)- Hyperlipidemia- HypothyroidPAST SURGICAL HISTORYProcedure Laterality Date- HERNIA REPAIR HX 1983 inguinal- REPAIR UMBILICAL JAMES,5+Y/O,REDUC 11/19/12 with meshFAMILY HISTORYProblem Relation Age of Onset- Alcohol/Drug Sister- Stroke Father- Heart FatherSocial HistorySubstance Use Topics- Smoking status: Never Smoker- Smokeless tobacco: Current User Types: Snuff- Alcohol use Not on file Comment: 1/monthMEDICATIONS: ReviewedALLERGIESNo Known AllergiesREVIEW OF SYSTEM:GENERAL: No weight loss, malaise or feversHEENT: Negative for frequent or significant headaches, No changes in hearing orvision, no nose bleeds or other nasal problemsNECK: Negative for lumps, goiter, pain and significant neck swellingRESPIRATORY: Negative for cough, hemoptysis, wheezing, COPD, dyspnea orshortness of breathCARDIOVASCULAR: Negative for chest pain, leg swelling, hypertension, CHF orpalpitationsGI: No nausea, vomiting, or diarrhea +melenaGU: No history of dysuria, frequency or incontinenceMUSCULOSKELETAL: Negative for joint pain or swelling, back pain or muscle painSKIN: Negative for lesions, rash, and itchingPSYCH: Negative for sleep disturbance, mood disorder and recent psychosocialstressorsHEMATOL OGY/LYMPHOLOGY: Negative for prolonged bleeding, bruising easily orswollen nodesENDOCRINE: Negative for cold or heat intolerance, polyuria, polydipsia andgoiterNEURO: No history of headaches, syncope, paralysis, seizures or tremorsObjectivePHYSICAL EXAM:BP 165/73 Pulse 74 Temp (Src) 98.1 (Temporal Artery) Resp 18 Ht 5' 10(1.78m) Wt 185 lb (83.9kg) SpO2 92% BMI 26.54 kg/(m2).GENERAL: Alert, no distress, cooperativeSKIN: Skin color, texture, turgor normal. No rashes or lesions.HEENT: normocephalic, atraumatic, EOMI, VESTA, sclerae anictericNECK: No jugulovenous distention. Supple, no thyromegaly or lymphadenopathy.Trachea midline.LUNGS: Lungs clear to auscultation b/l, no wheezes, rhonchi or crackles. Goodrespiratory effort.CARDIAC: Normal S1 and S2; no rubs, murmurs, or gallopsABDOMEN: Abdomen soft, non-tender, BS normal, No masses or organomegalyEXTREMITIES: Extremities normal, no deformities, edema, clubbing or skindiscoloration. Good capillary refill., No ulcersDATA:Diagnostic tests reviewed for today's visit:Most recent labs and imaging results.Assessment/PlanActiv e Problems: Acute blood loss anemia, likely due to GI loss, positive occult blood POA:Yes Assessment AND Plan: s/p transfusion-monitor HANDH-consult GI for EGD ESRD (end stage renal disease) (HCC) POA: Yes Assessment AND Plan:-consult nephrology for HD( Saturday, , Saturday0 DM (diabetes mellitus), POA: Yes Assessment AND Plan:-accucheck achs-continue home medications Essential hypertension POA: Yes Assessment AND Plan:-continue LisinoprilHypothyroidism-con tinue SynthroidVTE Prophylaxis: Heparin 5000 units Sub Q BIDDisposition: HomePlan of care discussed with: PatientSIGNATURE: Jose L Burns MD PATIENT NAME: Robert JacquesATE: August 02, 2018 : 7:49 PM PAGER/CONTACT #:Bethel Lagunas MD 08/03/2018 6:26 PM AddendumGastroenterology Consult ServiceDepartment of Gastroenterology AND HepatologyDunn [facility]/ [facility] HospitalINITIAL CONSULT NOTEPlease call [facility] cell phone [phone] directly if you havequestions till 5 PM today. After [address]Jon Rich.Case will be discussed with at 2:[address] Hendricks go for EGD on Saturday. Epic orders placed. NPO after MN tonightSERVICE DATE: 08/03/2018SERVICE TIME: 8:07 AMOpinion/advice regarding: AnemiaIMPRESSION AND PLANhis is a 58 year old male with history of ESRD-HD, DM2, HTN presented to [facility] yesterday morning with sob, found to have a Hgb of 5.9, positive occultblood.Apparently recent cscope was normal.1) Anemia: corrected after 3 units of PRBC. Apparently recent C-scope 2-3months back was normal. FOBT was positive. Denies any clinically evident GIbleed.Plan:Asked him to remind his to bring the reports of Cscope. If this is indeednormal then will need a non emergent EGD Saturday or Saturday. Hb roseappropriately after transfusion. Will keep you posted about the exact timing ofscope and will order in epic# Resusucitation measures:Maintain 2 large bore IV lines 18G size at least at all timesTransfuse to keep Hb >/+ 7 g/dl. If any history of CAD Keep Hb >/= 9 g/dl protonix 40 mg IV BIDAdmit to ICU if BP <90/60, HR >100 /orthostatic hypotensionTake vitals every 4 hours on RNF, Cycle CBc dailyAvoid all NSAIDS. If NSAIDS are indicated for any reasons pleas euse GUERRA-2inhibitors at low dose and overlap w their use with po PPIs.CC: AnemiaHPI:This is a 58 year old male with history of ESRD-HD, DM2, HTN presented [facility] yesterday morning with sob, found to have a Hgb of 5.9 ( perprimary team H and P review), positive occult blood. He had 3U PRBCs transfused,sent to [facility] for GI evaluation. Patient had a colonoscopy done one month ago byDr. Owens, no acute findings. has reports and will bring them in todayHe denies any obvious GI bleed in form of melena , hemetemsis, BRBPR. No painabdomen?Results for ROBERT MCCRARY ( ) as of 08/03/2018 08:08 Ref. Range 11/03/2012 15:56 08/02/2018 20:50 08/03/2018 06:05WBC Latest Ref Range: 4.23 - 9.07 thou/cmm 10.59 15.73 (H) 19.26 (H)RBC Latest Ref Range: 4.63 - 6.08 mil/cmm 4.84 3.10 (L) 3.09 (L)HGB Latest Ref Range: 13.7 - 17.5 g/dL 8.5 (L) 8.4 (L)Pertinent Review of Systems:GENERAL: No weight loss, malaise or fevers. SEE HPINECK: Negative for lumps, goiter, pain and significant neck swellingRESPIRATORY: shortness of breath.CARDIOVASCULAR: Negative for chest pain, leg swelling or palpitations.GI: See HPIMUSCULOSKELETAL: Negative for joint pain or swelling, back pain or muscle pain.HEMATOLOGY/LYMPHOLOGY Negative for prolonged bleeding, bruising easily orswollen nodes.ENDOCRINE: Negative for cold or heat intolerance, polyuria, polydipsia andgoiter.NEURO: No history of headaches, syncope, paralysis, seizures or tremorsAll other reviewed and negative other than HPI.PAST MEDICAL HISTORY:PAST MEDICAL HISTORYDiagnosis Date- Depression- DM (diabetes mellitus) (HCC)- ESRD (end stage renal disease) (HCC)- HTN (hypertension)- Hyperlipidemia- HypothyroidPAST SURGICAL HISTORY:PAST SURGICAL HISTORYProcedure Laterality Date- HERNIA REPAIR HX 1983 inguinal- REPAIR UMBILICAL JAMES,5+Y/O,REDUC 11/19/12 with meshFAMILY HISTORY:FAMILY HISTORYProblem Relation Age of Onset- Alcohol/Drug Sister- Stroke Father- Heart FatherSOCIAL HISTORY:Social HistorySubstance Use Topics- Smoking status: Never Smoker- Smokeless tobacco: Current User Types: Snuff- Alcohol use Not on file Comment: 1/monthMEDICATIONS:Prior to Admission Medications:acetaminophen-HY DROcodone 5-500 mg tablet Take 1-2 tablets by mouth every 4hours as needed.SIMVASTATIN 20 mg tablet once daily.LISINOPRIL 10 mg tablet once daily.SYNTHROID 150 mcg tablet once daily.CITALOPRAM 20 mg tablet once daily.KOMBIGLYZE XR 2.5-1,000 mg TM24 twice daily.Current hospital medications:pantoprazole 40 mg injection (PROTONIX) 40 mg INTRAVENOUS DAILY (6 AM)lisinopril 10 mg tab(s) (ZESTRIL, PRINIVIL) 10 mg ORAL DAILYcitalopram 20 mg tab(s) (CeleXA) 20 mg ORAL DAILYlevothyroxine 150 mcg (SYNTHROID) 150 mcg ORAL DAILY (6 AM)ondansetron 4 mg tab(s) (ZOFRAN) 4 mg ORAL q 6 H PRNondansetron (PF) 4 mg injection (ZOFRAN) 4 mg INTRAVENOUS q 6 H PRNacetaminophen 650 mg tab(s) (TYLENOL) 650 mg ORAL q 6 H PRNheparin 5,000 Units injection 5,000 Units SUBCUTANEOUS q 12 HsitaGLIPtin 50 mg tab(s) (JANUVIA) 50 mg ORAL DAILY WITH BREAKFASTmetFORMIN 1,000 mg tab(s) (GLUCOPHAGE) 1,000 mg ORAL DAILY WITH BREAKFASTatorvastatin 10 mg tab(s) (LIPITOR) 10 mg ORAL AT BEDTIMEALLERGIES:ALLERGIESNo Known AllergiesOBJECTIVE:PHYSICAL EXAM:BP 163/69 Pulse 91 Temp (Src) 97.9 (Oral) Resp 20 Ht 5' 10 (1.78m) Wt185 lb (83.9kg) SpO2 95% BMI 26.54 kg/(m2).General appearance: [id number]: Skin color, texture, turgor normal, no rash.Eyes: Anicteric sclera. No palor.Oropharynx: Lips, mucosa, and tongue normal.Lungs: lungs clear to auscultation, no wheezing or rhonchiHeart: RRRAbdomen soft, non-tender. Bowel sounds normal. No masses or organomegaly. Mildumbilical pouting from hernia repairExtremities: Extremities normal. No deformities, No edema.DATA:CBC, Coags, BMP, Mg, PhosRecent Labs 050WBC 19.26* 15.73*HB 8.4* 8.5*HCT 27.2* 26.7*PLT 384* 356NA 135* 138K 4.7 3.7CHLOR 101 99CO2 25 30BUN 22* 14CREAT 4.72* 4.09*GLUC 116* 134*CA 8.5 8.5Liver Function, Amylase, AND LipaseThis note is not final till staffed by GI attendingBethel Potter in [facility]astroenter[facility] and HepatologyGen[facility] Hospital pager: [phone] Memorial Hospital Cell phone: [phone]: Bethel Lagunas MD PATIENT NAME: Robert JacquesATE: August 03, 2018 : 8:07 AM PAGER/CONTACT #: [id number]/ [facility] cell phone:[phone] VersionCaitlin Cornejo RN, RN 08/03/2018 9:[address] Mei aware of pt needing o2 at 5 l nc. Stat ekg and cxr done. Ptplaced on tele showing nsrCaitlin Cornejo RN, RN 08/03/2018 9:37 AM SignedTroponin obtained and sent to lab. Pt sent to u/s of bilat lower extCaitlin Cornejo RN, RN 08/03/2018 9:52 [address]ignedDr Mei notified of ABG resultsCaitlin Cornejo RN, RN 08/03/2018 11:04 AM SignedPt sent for VQ scan via RT Reddy Tech 08/03/2018 11:39 AM Signed RADIOLOGY SERVICE PROGRESS NOTESERVICE DATE: 08/03/2018SERVICE TIME: 11:38 AMPATIENT IDENTITY VERIFICATION COMPLETED USING TWO (2) METHODS: Patientconfirmed name and Date of verbally.PATIENT GENDER DATA: .maleALLERGIES: Reviewed and unchangedMEDICATIONS REVIEWED: YesPATIENT RELEVANT IMPLANT DATA REVIEWED: Not ApplicableCREATININE:Creatin ineDate Value Ref Range Wlgdtv4708/03/2018 4.72 (H) 0.67 - 1.17 mg/dL Final08/02/2018 4.09 (H) 0.67 - 1.17 mg/dL Final11/03/2012 0.84 0.70 - 1.40 mg/dL Final eGFR-All Other RacesDate Value Ref Range Cbvuwd4011/03/2012 >60 . FinalComment:eGFR (Estimated GFR) Units of measure: mL/min/1.73 meters squaredeGFR is derived from the reexpressed MDRD Study equation using thefollowing parameters: serum creatinine, age, gender and race. Thecreatinine assay has been calibrated to be traceable to IDMS.An eGFR <60 mL/min/1.73m2 for >3 months is consistent with chronickidney disease. Refer to KDOQI guidelines for clinical interpretation. eGF R- AmericanDate Value Ref Range Euikwd5111/03/2012 >60 Final P.O.C.T. RESULTS: N/A August 03, 2018DIAGNOSTIC CT PERFORMED: NoIV SITE: Inpatient - refer to [facility] documentationPOST EXAM PIV STATUS: Inpatient see [facility] documentationPROCEDURE TYPE: VQ Scan: 0.8 mCi of Tc99m DTPA was inhaled. 5.7 mCi of Jr48xZOD was administered IV.ADMINISTRATION TIME: 11;30PATIENT DISCHARGED TO: Patient taken to IP transport area for return toRNF/ICU/ED.A Diagnostic radioactive procedure has taken place, with no further precautionsnecessary other than routine body substance precautions. More informationregarding radiation safety can be found using this link:[email or web address] [email or web address] ASA: RT Grover PATIENT NAME: Robert JacquesATE: August 03, 2018 : 11:38 AM PAGER/CONTACT #:Sky Acosta MD 08/03/2018 12:23 PM SignedPagabo Mccrary is a 58 yo male presented to hospital with severe anemia. Renalservice consulted for ESRD.ESRD on HD TTS schedule. [place] Received PRBC overnight. Currentlycomplains of dyspneaRecent colonoscopy [place] - apparently was negativeSeen by GI. Likely EGD tomorrow on saturday.PAST MEDICAL HISTORYDiagnosis Date- Depression- DM (diabetes mellitus) (HCC)- ESRD (end stage renal disease) (HCC)- HTN (hypertension)- Hyperlipidemia- HypothyroidPAST SURGICAL HISTORYProcedure Laterality Date- HERNIA REPAIR HX 1983 inguinal- REPAIR UMBILICAL JAMES,5+Y/O,REDUC 11/19/12 with meshSocial History Marital status: Spouse name: Years of education: Number of children:Social History Main Topics Smoking status: Never Smoker Smokeless tobacco: Current User Types: SnuffCurrent Facility-Administered Medications:pantoprazole 40 mg injection (PROTONIX) 40 mg INTRAVENOUS DAILY (6 AM) NataliaTetyuk 40 mg at 08/03/18 0557ipratropium-albuterol 3 mL nebulizer solution (DUONEB) 3 mL INHALATION q 4 H PRNJoseph Mei 3 mL at 08/03/18 0927furosemide 80 mg injection (LASIX) 80 mg INTRAVENOUS ONCE Sky Dasarilisinopril 10 mg tab(s) (ZESTRIL, PRINIVIL) 10 mg ORAL DAILY Jose L Tetyuk 10mg at 08/03/18 0807citalopram 20 mg tab(s) (CeleXA) 20 mg ORAL DAILY Jose L Tetyuk 20 mg at08/03/18 0807levothyroxine 150 mcg (SYNTHROID) 150 mcg ORAL DAILY (6 AM) Jose L Tetyuk 150mcg at 08/03/18 0557ondansetron 4 mg tab(s) (ZOFRAN) 4 mg ORAL q 6 H PRN Jose L TetyukOrondansetron (PF) 4 mg injection (ZOFRAN) 4 mg INTRAVENOUS q 6 H PRN NataliaTetyukacetaminophen 650 mg tab(s) (TYLENOL) 650 mg ORAL q 6 H PRN Jose L Tetyukheparin 5,000 Units injection 5,000 Units SUBCUTANEOUS q 12 H Jose L Tetyuk5,000 Units at 08/03/18 0807sitaGLIPtin 50 mg tab(s) (JANUVIA) 50 mg ORAL DAILY WITH BREAKFAST NataliaTetyuk 50 mg at 08/03/18 0806atorvastatin 10 mg tab(s) (LIPITOR) 10 mg ORAL AT BEDTIME Jose L Tetyuk 10 mgat 08/02/18 2053Prescriptions Prior to Admission:acetaminophen-HYDR Ocodone 5-500 mg tablet Take 1-2 tablets by mouth every 4hours as needed. Disp: 40 tablet Rfl: 1SIMVASTATIN 20 mg tablet once daily. Disp: Rfl:LISINOPRIL 10 mg tablet once daily. Disp: Rfl:SYNTHROID 150 mcg tablet once daily. Disp: Rfl:CITALOPRAM 20 mg tablet once daily. Disp: Rfl:KOMBIGLYZE XR 2.5-1,000 mg TM24 twice daily. Disp: Rfl:ALLERGIESNo Known Allergies 08/03/18097BP: 162/70Pulse: 82 82 84Resp: 18 18 18Temp:TempSrc:SpO2: 95% 96% 94%Weight:Height:General. No obvious distressHEENT. No pallor, icterus, JVDHeart S1, F8Ungar clearAbdomen softNo edemaNo cyanosisNo rashAAO x 3Recent Labs 08/02/1820WBC 19.26* 15.73*HB 8.4* 8.5*HCT 27.2* 26.7*PLT 384* 356NA 135* 138K 4.7 3.7CHLOR 101 99CO2 25 30CREAT 4.72* 4.09*BUN 22* 14GLUC 116* 134*CA 8.5 8.5Assessment/PlanESRD. Last HD yesterday. Continue as per scheduleAnemia. Due to GI bleed. S/p PRBCDyspnea. CXR is pretty wet. Will do a UF treatment today for 3-4 L fluidremoval. Will give lasix 80 mg IV x once. He says he still makes good amount ofurine.Called dialysis staff. They will be here this afternoon for treatmentCaitlin Cornejo RN, RN 08/03/2018 1:12 PM SignedDialysis at bedside to dialize patient. Order from dr Ford to d/c lasix 80 mgiv t2SifcdCaitlin Cornejo RN, RN 08/03/2018 3:11 PM Yaneli eMi notified of hgb 7.4Josampson Mei MD 08/03/2018 4:51 PM AddendumINPATIENT PROGRESS NOTEAfter 7pm, please call cross cover pager #[phone] DATE: 08/03/2018SERVICE TIME: 4:43 PMPRIMARY SERVICE: Hospital MedicineSubjectiveCHIEF COMPLAINT: Here for : problems listed belowActive Hospital Problems Diagnosis Date Noted- Melena 08/02/2018- Hypothyroidism 08/03/2018- Acute blood loss anemia 08/02/2018- ESRD (end stage renal disease) ([facility]) 08/02/2018- DM (diabetes mellitus), type 1 with neurological complications ([facility])08/02/2018- Essential hypertension 08/02/2018INTERVAL HPI:Last night started having sob , walked in and patient was using 5 L B9MSIWO: Negative for nasal congestion and post-nasal dripCARDIOVASCULAR: Negative for palpitationsGI: negative for nausea/ emesisGU: negative for dysuria, urgency , frequencyMUSCULOSKELETAL: negative for pains/achesSKIN: Negative for rashPSYCH: Negative for active stressors, depression and anxietyENDOCRINE: Negative for polyuria and polydipsiaNEURO: Negative for cognitive changes and morning headachesAll other review of systems reviewed and are negative unless other darby statedin the HPI or the ROSCurrent hospital medications:pantoprazole 40 mg injection (PROTONIX) 40 mg INTRAVENOUS DAILY (6 AM)ipratropium-albuterol 3 mL nebulizer solution (DUONEB) 3 mL INHALATION q 4 H PRNNaCl 0.9% iv infusion 50-200 mL INTRAVENOUS PRN DIALYSISheparin 1,000 unit/mL 3,200 Units injection 3,200 Units INTRALUMINAL PRNDIALYSISlisinopril 10 mg tab(s) (ZESTRIL, PRINIVIL) 10 mg ORAL DAILYcitalopram 20 mg tab(s) (CeleXA) 20 mg ORAL DAILYlevothyroxine 150 mcg (SYNTHROID) 150 mcg ORAL DAILY (6 AM)ondansetron 4 mg tab(s) (ZOFRAN) 4 mg ORAL q 6 H PRNondansetron (PF) 4 mg injection (ZOFRAN) 4 mg INTRAVENOUS q 6 H PRNacetaminophen 650 mg tab(s) (TYLENOL) 650 mg ORAL q 6 H PRNheparin 5,000 Units injection 5,000 Units SUBCUTANEOUS q 12 HsitaGLIPtin 50 mg tab(s) (JANUVIA) 50 mg ORAL DAILY WITH BREAKFASTatorvastatin 10 mg tab(s) (LIPITOR) 10 mg ORAL AT BEDTIMEObjectivePHYSICAL EXAM:BP 156/82 Pulse 81 Temp (Src) 97.9 (Oral) Resp 18 Ht 5' 10 (1.78m) Wt185 lb (83.9kg) SpO2 99% BMI 26.54 kg/(m2).Constitutional - Vitals as above, not in acute distressResp - Clear to auscultate both sides, no wheezes, crackles or rales, no laboredbreathingCVS- RRR. No murmur, gallop or rub, pulse 2+GI - NTND, bowel sounds normally heard, no mass palpableCNS- cranial nerves 2 to 12 grossly intact, no focal motor or sensory deficitsnoted, speech normal/Psych- A ANDO x 3, mood normalSkin- Normal tugor, no ulcers or rashesDATA:Diagnostic tests reviewed for today's visit:Most recent labs and imaging results.Hemoglobin (g/dL)Date Value11/03/2012 13.4 HGB (g/dL)Date Value08/03/2018 7.4 Hematocrit (%)Date Value08/03/2018 24.0 WBC (thou/cmm)Date Value08/03/2018 19.26 Glucose (mg/dL)Date Value08/03/2018 116 Potassium (mEq/L)Date 08/03/2018 4.7 Sodium (mEq/L)Date 08/03/2018 135 Chloride (mEq/L)Date 08/03/2018 101 CO2 (mEq/L)Date Value08/03/2018 25 Creatinine (mg/dL)Date Value08/03/2018 4.72 BUN (mg/dL)Date Value08/03/2018 22 Anion Gap (no units)Date Value08/03/2018 14 Calcium (mg/dL)Date Value08/03/2018 8.5 Protein, Total (g/dL)Date Value11/03/2012 7.8 Albumin (g/dL)Date Value11/03/2012 4.1 Bilirubin, Total (mg/dL)Date Value11/03/2012 0.2 Alkaline Phosphatase (U/L)Date Value11/03/2012 55 AST (U/L)Date Value11/03/2012 32 ALT (U/L)Date Value11/03/2012 62 Assessment/PlanP rincipal Problem:Hypoxia: I have ordered an extensive workup including EKG and chest x-rayventilation/perfusion scan ABGs. It seems that the patient on chest x-ray haspulmonary edema. I asked the patient if he has any cardiac condition he statedthat there was an echo done approximately 3 days ago when he was in wastemperature that showed possible heart failure. At a conversation with thenephrologist regarding diuresing the patient. He ordered Lasix 80 mg IV, andthe patient will go to dialysis today and they will try to remove 3-4 L offluids. Graciously, passenger representative also has access to records, he will present tothe echocardiogram and place it on the chart tomorrow. This could be either CHFexacerbation or fluid overload.I placed him on continuous pulse ox and monitormonitoring for now also. Melena POA: Yes Assessment AND Plan: gastroenterology on board, every 8 hourshemoglobin andhematocrit shows decreasehe status post 3 units of PRBCs. We'll continue tomonitor for bleeding. I I've sent for type and screen again and we'll consentthe patient tonight.*per GI he will go for EGD on Saturday (tomorrow ESRD (end stage renal disease) (HCC) POA: Yes Assessment AND Plan: dialysis today per nephrology DM (diabetes mellitus), type 1 with neurological complications (HCC) POA: Yes Assessment AND Plan: continue home Januvia every 4 checks of blood glucose.for now appears to be close to normal glycemic Essential hypertension POA: Yes Assessment AND Plan: mildly hypertensive today, however he will undergodialysis we'll reevaluate tomorrow Hypothyroidism POA: Unknown Assessment AND Plan: continue home medicationsResolved Problems: * No resolved hospital problems. *Medication and Non-Pharmacologic VTE Prophylaxis/AnticoagulantsAn ticoagulant AND Antiplatelet Medications Start Dose Route Frequency Ordered Stop 08/03/18 1335 heparin 1,000 unit/mL 3,200 Units injection 3,200 Units INTRALUMINAL PRN DIALYSIS 08/03/18 1336 -- 08/02/181999 heparin 5,000 Units injection (Medical At Risk ) 5,000 Units SUBCUTANEOUS EVERY 12 HOURS 08/02/18 1949 --08/03/18 0030 pneumatic compression stockings (hi,dc)08/02/181999 vte non-pharmacologic prophylaxis - none indicated ([place], [place])08/02/181999 activity - mobilize patient ([place])VTE Prophylaxis: reviewed the heparin protocol, have DC'd the heparin 5000 twicea day due to active bleeding.Dispo: pending GI recommendationsSIGNATURE: Carlos Mei MD PATIENT NAME: Robert JacquesATE: August 03, 2018 : 4:43 PM PAGER: emma Coffman , After 7pm, please call cross cover pager#[phone] Nelli Hopkins RN, RN 08/03/2018 4:56 PM SignedIUF completed x 2.5 hrs. 3500ml fluid removal. Access via right chest HD cath.Pt stable post tx. See HD flowsheet on chart for details.Caitlin Cornejo RN, RN 08/03/2018 5:[address] Mei notified of sepsis advisory Adriane Valdez RN, RN 08/04/2018 7:45 AM SignedPRE OP LEARNING ASSESSMENTPROCEDURE/SURGERY: GI PROCEDURES: EGDREADINESS TO LEARNCOGNITIVE ABILITY: Alert and orientedMOTIVATION TO LEARN: InterestedFAMILY SUPPORT: Unable to assess - Family not presentPATIENT LEARNS BEST BY: Verbal InstructionFACTORS AFFECTING LEARNING: NonePHYSICAL LIMITATIONS AFFECTING LEARNING: NoneElectronically Signed By: Keiko Valdez RN In Department: [facility] 3200 TCU/Ford Moraes MD 08/04/2018 8:19 AM Signed ANESTHESIOLOGY DAY OF SURGERY NOTESERVICE DATE: 08/04/2018SERVICE TIME: 8:17 AMDOB: 2Procedure(s) (LRB):EGD (Left)Surgeon(s):Jadiel RaeEstimated body mass index is 25.66 kg/m? as calculated from the following: Height as of this encounter: 177.8 cm (5' 10). Weight as of this encounter: 81.1 kg (178 lb 12.8 oz).Most recent hematocrit and potassium results:Hematocrit 24.4 08/04/2018Potassium 4.7 08/03/2018ANES DOS/PREOP NOTE:Vitals: 08/04/1806BP: 146/71 138/67 147/69 149/74Pulse: 74 79 79 80Resp: 18 18 18 18Temp: 36.8 ?C (98.2 ?F) 36.6 ?C (97.9 ?F)TempSrc: Oral OralSpO2: 95% 97% 100% 100%Weight:Height:ACTIVE PROBLEM LISTUmbilical Hernia Without Mention of Obstruction Or GangreneMelenaAcute Blood Loss AnemiaEsrd (End Stage Renal Disease) (Hcc)Dm (Diabetes Mellitus), Type 1 With Neurological Complications (Hcc)Essential HypertensionBlood Loss AnemiaHypothyroidismHypoxiaP AST MEDICAL HISTORYDiagnosis Date- Depression- DM (diabetes mellitus) (HCC)- ESRD (end stage renal disease) (HCC)- HTN (hypertension)- Hyperlipidemia- HypothyroidPAST SURGICAL HISTORYProcedure Laterality Date- HERNIA REPAIR HX 1983 inguinal- REPAIR UMBILICAL JAMES,5+Y/O,REDUC 11/19/12 with meshFAMILY HISTORYProblem Relation Age of Onset- Alcohol/Drug Sister- Stroke Father- Heart FatherSocial History:Social HistorySubstance Use Topics- Smoking status: Never Smoker- Smokeless tobacco: Current User Types: Snuff- Alcohol use Not on file Comment: 1/monthNo current facility-administered medications on file prior to encounter.Current Outpatient Prescriptions on File Prior to Encounter:acetaminophen-HYDR Ocodone 5-500 mg tablet Take 1-2 tablets by mouth every 4hours as needed.SIMVASTATIN 20 mg tablet once daily.LISINOPRIL 10 mg tablet once daily.SYNTHROID 150 mcg tablet once daily.CITALOPRAM 20 mg tablet once daily.KOMBIGLYZE XR 2.5-1,000 mg TM24 twice daily.Current Facility-Administered Medications:pantoprazole 40 mg injection (PROTONIX) 40 mg INTRAVENOUS DAILY (6 AM) NataliaTetyuk 40 mg at 08/04/18 0604ipratropium-albuterol 3 mL nebulizer solution (DUONEB) 3 mL INHALATION q 4 H PRNJoseph Mei 3 mL at 08/03/18 0927heparin 1,000 unit/mL 3,200 Units injection 3,200 Units INTRALUMINAL PRNDIALYSIS Jayaprakash Dasarilisinopril 10 mg tab(s) (ZESTRIL, PRINIVIL) 10 mg ORAL DAILY Jose L Tetyuk 10mg at 08/03/18 0807citalopram 20 mg tab(s) (CeleXA) 20 mg ORAL DAILY Jose L Tetyuk 20 mg at08/03/18 0807levothyroxine 150 mcg (SYNTHROID) 150 mcg ORAL DAILY (6 AM) Jose L Tetyuk 150mcg at 08/04/18 0604ondansetron 4 mg tab(s) (ZOFRAN) 4 mg ORAL q 6 H PRN Jose L TetyukOrondansetron (PF) 4 mg injection (ZOFRAN) 4 mg INTRAVENOUS q 6 H PRN NataliaTetyukacetaminophen 650 mg tab(s) (TYLENOL) 650 mg ORAL q 6 H PRN Jose L TetyuksitaGLIPtin 50 mg tab(s) (JANUVIA) 50 mg ORAL DAILY WITH BREAKFAST NataliaTetyuk 50 mg at 08/03/18 0806atorvastatin 10 mg tab(s) (LIPITOR) 10 mg ORAL AT BEDTIME Jose L Tetyuk 10 mgat 08/03/18 1956Allergies: ALLERGIESNo Known AllergiesDOS EXAM: Adequate NPO status: YesAnesthetic risks, benefits, alternatives, personnel and consent discussed: YesPatient agrees to proceed: YesPrevious Anesthesia: No history of adverse event.Airway Assessment: MP 2; Neck ROM: Full ROM without neurologic symptoms; AirwayEvaluation: No significant abnormalitiesSymptoms of Sleep Apnea: Hypertension, Age over 50 (58 year old) and Male genderDentition: Teeth intact. Denies loose teeth or capsAdditional Physical Exam:Lungs: Patient health status unchanged since recent history and physical. Seehistory and physical for exam findings.Cardiac: Patient health status unchanged since recent history and physical. Seehistory and physical for exam findings.Additional Pertinent Findings: N/ABlood Products: Not anticipated for this procedure.Anesthetic Plan: MAC with SedationPain Management Plan: Parenteral or OralASA Class: 4Other Medical Problems: GIB, anemia s/p 3 units PRBC (Hgb 5.9 to 7.7 this AM),ESRD s/p HD/UF yesterday, pulmonary edema likely 2/2 volume overload thatimproved with diuresis, DM2, HTN, DAVID on BIPAP, hypothyroidChronic Beta Gabby medication administered within 24 hours: N/AI have interviewed and examined the patient. I have reviewed the medical recordand/or the pre-anesthesia evaluation, pertinent labs, and test results.Significant changes in the patient's condition since the History and Physical,not otherwise documented in primary service progress notes: NoTmeade [facility] contains updated information obtained within 48 hours of Surgery/Procedure.SIGNATURE: Lobito Moraes MD PATIENT NAME: Robert JacquesATE: August 04, 2018 : 8:17 AM CSN: [id number] Notes (TRAC TXP CTR ANGELA):Ban Bermudez Melvin 07/11/2018 1:10 PM SignedSuccessful attempt to reach patient regarding upcoming appointments fnifvuofb66/15/18. Patient verbalized and confirmed understanding. Call back [phone].Ban Bermudez Melvin Normal [facility] Hemogram/Diffon 08-02-2018 Abs Immature Grans 0.08 thou/cmm High 0.00-0.05 [facility] Comment on above: Performed By: #### C BCD1 ####[place] [address] Abs. Baso 0.05 thou/cmm Normal 0.01-0.08 [facility] Comment on above: Result Comment: Smea r scanned; tech agrees with automated differential Performed By: #### C BCD1 ####[place] [address] Abs. [place] 0.88 thou/cmm High 0.30-0.82 [facility] Comment on above: Performed By: #### C BCD1 ####[facility] [place], [place] [address] Abs. Neut (ANC) 13.48 thou/cmm High 1.78-5.38 [facility] Comment on above: Performed By: #### C BCD1 ####[address] [address] Basophils/100 WBC Auto (Bld) 0.3 % Normal [facility] Comment on above: Performed By: #### C BCD1 ####[address] [address] Eosinophils Auto #/vol (Bld) 0.17 thou/cmm Normal 0.04-0.54 [facility] Comment on above: Performed By: #### C BCD1 ####[address] [address] Eosinophils/100 WBC Auto (Bld) 1.1 % Normal [facility] Comment on above: Performed By: #### C BCD1 ####[address] [address] Immature Grans 0.50 % Normal [facility] Comment on above: Performed By: #### C BCD1 ####[address] [address] Lymphocytes Auto #/vol (Bld) 1.07 thou/cmm Normal 0.84-2.85 [facility] Comment on above: Performed By: #### C BCD1 ####[address] [address] Lymphocytes/100 WBC Auto (Bld) 6.8 % Normal [facility] Comment on above: Performed By: #### C BCD1 ####[address] [address] Monocytes/100 WBC Auto (Bld) 5.6 % Normal [facility] Comment on above: Performed By: #### C BCD1 ####[address] [address] Seg Neutrophil 85.7 % Normal [facility] Comment on above: Performed By: #### C BCD1 ####[address] [address] Erythrocyte distribution width Auto Ratio (RBC) 15.2 % High 11.6-14.4 [facility] Comment on above: Performed By: #### C BCD1 ####[place] [address] Hematocrit Auto Volume Fraction (Bld) 26.7 % Low 40.1-51.0 [facility] Comment on above: Performed By: #### C BCD1 ####[place] [address] Hemoglobin mass conc (Bld) 8.5 g/dL Low 13.7-17.5 [facility] Comment on above: Performed By: #### C BCD1 ####[place] [address] MCH Auto Entitic mass (RBC) 27.4 pg Normal 25.7-32.2 [facility] Comment on above: Performed By: #### C BCD1 ####[place] [address] MCHC Auto mass conc (RBC) 31.8 % Low 32.3-36.5 [facility] Comment on above: Performed By: #### C BCD1 ####[address] [address] MCV Auto Entitic volume (RBC) 86.1 fL Normal 83.2-95.6 [facility] Comment on above: Performed By: #### C BCD1 ####[address] [address] Platelet mean volume Auto Entitic volume (Bld) 9.0 fL Normal 8.7-12.0 [facility] Comment on above: Performed By: #### C BCD1 ####[place] [address] Platelets Auto #/vol (Bld) 356 thou/cmm Normal 141-365 [facility] Comment on above: Performed By: #### C BCD1 ####[facility] [place], [place] [address] RBC Auto #/vol (Bld) 3.10 mil/cmm Low 4.63-6.08 [facility] Comment on above: Performed By: #### C BCD1 ####[facility] [place], [place] [address] RDW SD 47.8 fl High 36.1-45.8 [facility] Comment on above: Performed By: #### C BCD1 ####[facility] [place], [place] [address] WBC Auto #/vol (Bld) 15.73 thou/cmm High 4.23-9.07 [facility] Comment on above: Performed By: #### C BCD1 ####[facility] [place], [place] [address] Office Visiton 07-03-2017 Adult depression screening assessment Adult depression screening assessment Invalid Interpretation Code [facility] Work Phone: Documentation of current medications (procedure) Done Invalid Interpretation Code [facility] Work Phone: Tobacco smoking status NHIS Never Invalid Interpretation Code [facility] Work Phone: Tobacco use CPHS Never smoker Invalid Interpretation Code [facility] Work Phone: Bacteria identified Anaer cx Nom (Unsp spec) Anaerobic microbial culture No anaerobic bacteria isolated. [facility] Work Phone: Bacteria identified Cx Nom ( Wound) Wound Culture Streptococcus group G [facility] Work Phone: Wound Culture Staphylococcus aureus [facility] Work Phone: Gram stain for investigation of transfusion reaction Microscopic observation Gram stain Nom (Unsp spec) [facility] Work Phone: Vital Signs Date Time Vital Sign Value Performing Clinician Facility 05-24-2025 [id number] Body height 177.[address] Marques Casanova MD Work Phone: [facility] 05-24-2025 14:05-0400 Body mass index (BMI) [Ratio] 31.1 kg/m2 Dr. Marques Casanova MD Work Phone: [facility] 05-24-2025 14:05-0400 Body weight 98.[address] Marques Casanova MD Work Phone: [facility] 05-24-2025 14:05-0400 Diastolic blood pressure 72 mm[Hg] Dr. Marques Casanova MD Work Phone: 5(257)366-976095 [place] [address] 05-24-2025 14:05-0400 Heart rate 60 /min Dr. Marques Casanova MD Work Phone: 0(535)238-514195 [place] [address] 05-24-2025 14:05-0400 SaO2% (BldA) [Mass fraction] 96 % Dr. Marques Casanova MD Work Phone: 8(070)803-414295 [place] [address] 05-24-2025 14:05-0400 Systolic blood pressure 134 mm[Hg] Dr. Marques Casanova MD Work Phone: 5(401)192-695495 [place] [address] 05-18-2025 13:53-0400 Body mass index (BMI) [Ratio] 31.7 kg/m2 Dr. Marques Casanova MD Work Phone: 7(074)345-693202 [address] 05-18-2025 13:53-0400 Body weight 100.[address] Marques Casanova MD Work Phone: 0(360)256-806295 [place] [address] 05-18-2025 13:53-0400 Diastolic blood pressure 62 mm[Hg] Dr. Marques Casanova MD Work Phone: 1(580)508-274795 [place] [address] 05-18-2025 13:53-0400 Heart rate 63 /min Dr. Marques Casanova MD Work Phone: 8(323)830-851295 [place] [address] 05-18-2025 13:53-0400 Respiratory rate 18 /min Dr. Marques Casanova MD Work Phone: 6(836)644-392895 [place] [address] 05-18-2025 13:53-0400 Systolic blood pressure 139 mm[Hg] Dr. Marques Casanova MD Work Phone: 7(286)557-247795 [place] [address] 04-07-2025 06:06-0400 Body mass index (BMI) [Ratio] 30.8 kg/m2 Dr. Marques Casanova MD Work Phone: [facility] 04-07-2025 06:06-0400 Body temperature 97.5 [degF] Dr. Marques Casanova MD Work Phone: [facility] 04-07-2025 06:06-0400 Body weight 97.[address] Marques Casanova MD Work Phone: [facility] 04-07-2025 06:06-0400 Diastolic blood pressure 79 mm[Hg] Dr. Marques Casanova MD Work Phone: 9(313)515-221095 [place] [address] 04-07-2025 06:06-0400 Heart rate 67 /min Dr. Marques Casanova MD Work Phone: [facility] 04-07-2025 06:06-0400 Respiratory rate 20 /min Dr. Marques Casanova MD Work Phone: [facility] 04-07-2025 06:06-0400 SaO2% (BldA) [Mass fraction] 96 % Dr. Marques Casanova MD Work Phone: [facility] 04-07-2025 06:06-0400 Systolic blood pressure 154 mm[Hg] Dr. Marques Casanova MD Work Phone: [facility] 02-20-2025 11:39-0400 Body height 177.[address] Marques Casanova MD Work Phone: [facility] 02-20-2025 11:39-0400 Body mass index (BMI) [Ratio] 33.5 kg/m2 Dr. Marques Casanova MD Work Phone: [facility] 02-20-2025 11:39-0400 Body temperature 97.8 [degF] Dr. Marques Casanova MD Work Phone: [facility] 02-20-2025 11:39-0400 Body weight 106.[address] Marques Casanova MD Work Phone: [facility] 02-20-2025 11:39-0400 Diastolic blood pressure 64 mm[Hg] Dr. Marques Casanova MD Work Phone: 3(243)121-739795 [place] [address] 02-20-2025 11:39-0400 Heart rate 63 /min Dr. Marques Casanova MD Work Phone: 4(789)853-722995 [place] [address] 02-20-2025 11:39-0400 Respiratory rate 18 /min Dr. Marques Casanova MD Work Phone: 2(832)914-808495 [place] [address] 02-20-2025 11:39-0400 SaO2% (BldA) [Mass fraction] 97 % Dr. Marques Casanova MD Work Phone: 0(617)832-277035 [place] [address] 02-20-2025 11:39-0400 Systolic blood pressure 146 mm[Hg] Dr. Marques Casanova MD Work Phone: 3(522)020-547135 [place] [address] 02-11-2025 11:45-0400 Body height 177.[address] Marques Casanova MD Work Phone: 3(058)960-110835 [place] [address] 02-11-2025 11:45-0400 Body mass index (BMI) [Ratio] 32.8 kg/m2 Dr. Marques Casanova MD Work Phone: 9(823)501-883295 [place] [address] 02-11-2025 11:45-0400 Body weight 103.[address] Marques Casanova MD Work Phone: 8(454)782-195535 [place] [address] 02-11-2025 11:45-0400 Diastolic blood pressure 76 mm[Hg] Dr. Marques Casanova MD Work Phone: 1(630)776-378495 [place] [address] 02-11-2025 11:45-0400 Heart rate 69 /min Dr. Marques Casanova MD Work Phone: 1(055)226-051495 [place] [address] 02-11-2025 11:45-0400 SaO2% (BldA) [Mass fraction] 97 % Dr. Marques Casanova MD Work Phone: 3(925)059-323895 [place] [address] 02-11-2025 11:45-0400 Systolic blood pressure 142 mm[Hg] Dr. Marques Casanoav MD Work Phone: 8(720)506-525095 [place] [address] 01-22-2025 19:39-0500 Body mass index (BMI) [Ratio] 32.42 kg/m2 [facility] TRAVELING REPAIR ACCOUNTANT.DEMURRAGE CLERK Work Phone: [facility] 01-22-2025 19:39-0500 Body temperature 101.1 [degF] [facility] TRAVELING REPAIR ACCOUNTANT.DEMURRAGE CLERK Work Phone: [facility] 01-22-2025 19:39-0500 Body weight 102.5 kg [facility] TRAVELING REPAIR ACCOUNTANT.DEMURRAGE CLERK Work Phone: [facility] 01-22-2025 19:39-0500 Diastolic blood pressure 75 mm[Hg] [facility] TRAVELING REPAIR ACCOUNTANT.DEMURRAGE CLERK Work Phone: [facility] 01-22-2025 19:39-0500 Heart rate 90 /min [facility] TRAVELING REPAIR ACCOUNTANT.DEMURRAGE CLERK Work Phone: [facility] 01-22-2025 19:39-0500 Respiratory rate 18 /min [facility] TRAVELING REPAIR ACCOUNTANT.DEMURRAGE CLERK Work Phone: [facility] 01-22-2025 19:39-0500 SaO2% (BldA) [Mass fraction] 96 % [facility] TRAVELING REPAIR ACCOUNTANT.DEMURRAGE CLERK Work Phone: [facility] 01-22-2025 19:39-0500 Systolic blood pressure 152 mm[Hg] [facility] TRAVELING REPAIR ACCOUNTANT.DEMURRAGE CLERK Work Phone: [facility] 01-20-2025 08:40-0500 Body mass index (BMI) [Ratio] 32.5 kg/m2 Dr. Marques Casanova MD Work Phone: [facility] 01-20-2025 08:40-0500 Body temperature 97.2 [degF] Dr. Marques Casanova MD Work Phone: [facility] 01-20-2025 08:40-0500 Body weight 102.[address] Marques Casanova MD Work Phone: [facility] 01-20-2025 08:40-0500 Diastolic blood pressure 71 mm[Hg] Dr. Marques Casanova MD Work Phone: [facility] 01-20-2025 08:40-0500 Heart rate 61 /min Dr. Marques Casanova MD Work Phone: 1(421)207-057795 [place] [address] 01-20-2025 08:40-0500 Respiratory rate 20 /min Dr. Marques Casanova MD Work Phone: 4(137)222-027035 [place] [address] 01-20-2025 08:40-0500 SaO2% (BldA) [Mass fraction] 97 % Dr. Marques Casanova MD Work Phone: 4(698)674-924335 [place] [address] 01-20-2025 08:40-0500 Systolic blood pressure 144 mm[Hg] Dr. Marques Casanova MD Work Phone: 0(220)152-783435 [place] [address] 12-21-2024 12:30-0500 Body weight 99.[address] Marques Casanova MD Work Phone: 4(312)209-801335 [place] [address] 12-21-2024 12:30-0500 Heart rate 63 /min Dr. Marques Casanova MD Work Phone: 2(831)506-568335 [place] [address] 12-21-2024 12:30-0500 SaO2% (BldA) [Mass fraction] 95 % Dr. Marques Casanova MD Work Phone: 9(942)395-992395 [place] [address] 12-18-2024 10:38-0500 Body mass index (BMI) [Ratio] 32.8 kg/m2 Dr. Marques Casanova MD Work Phone: 9(293)796-355095 [place] [address] 12-18-2024 10:38-0500 Body weight 103.[address] Marques Casanova MD Work Phone: 2(358)640-714395 [place] [address] 12-18-2024 10:38-0500 Diastolic blood pressure 66 mm[Hg] Dr. Marques Casanova MD Work Phone: 1(417)411-738395 [place] [address] 12-18-2024 10:38-0500 Heart rate 59 /min Dr. Marques Casanova MD Work Phone: 6(164)501-264995 [place] [address] 12-18-2024 10:38-0500 Respiratory rate 18 /min Dr. Marques Casanova MD Work Phone: [facility] 12-18-2024 10:38-0500 Systolic blood pressure 119 mm[Hg] Dr. Marques Casanova MD Work Phone: 1(308)996-849795 [place] [address] 12-14-2024 14:53-0500 Body temperature 98.2 [degF] Dr. Marques Casanova MD Work Phone: 2(168)406-744002 [address] 12-14-2024 14:53-0500 Diastolic blood pressure 62 mm[Hg] Dr. Marques Casanova MD Work Phone: 9(215)607-803935 [place] [address] 12-14-2024 14:53-0500 Heart rate 68 /min Dr. Marques Casanova MD Work Phone: 0(329)481-953335 [place] [address] 12-14-2024 14:53-0500 Respiratory rate 12 /min Dr. Marques Casanova MD Work Phone: 2(140)711-731635 [place] [address] 12-14-2024 14:53-0500 SaO2% (BldA) [Mass fraction] 95 % Dr. Marques Casanova MD Work Phone: 3(514)049-197902 [address] 12-14-2024 14:53-0500 Systolic blood pressure 118 mm[Hg] Dr. Marques Casanova MD Work Phone: 9(949)854-917102 [address] 11-26-2024 08:17-0500 Body mass index (BMI) [Ratio] 32.4 kg/m2 Dr. Marques Casanova MD Work Phone: 3(082)469-868295 [place] [address] 11-26-2024 08:17-0500 Body temperature 97.2 [degF] Dr. Marques Casanova MD Work Phone: 3(261)686-379002 [address] 11-26-2024 08:17-0500 Body weight 102.[address] Marques Casanova MD Work Phone: 5(321)166-195195 [place] [address] 11-26-2024 08:17-0500 Diastolic blood pressure 85 mm[Hg] Dr. Marques Casanova MD Work Phone: 9(971)570-766595 [place] [address] 11-26-2024 08:17-0500 Heart rate 69 /min Dr. Marques Casanova MD Work Phone: [facility] 11-26-2024 08:17-0500 Respiratory rate 20 /min Dr. Marques Casanova MD Work Phone: [facility] 11-26-2024 08:17-0500 SaO2% (BldA) [Mass fraction] 96 % Dr. Marques Casanova MD Work Phone: [facility] 11-26-2024 08:17-0500 Systolic blood pressure 149 mm[Hg] Dr. Marques Casanova MD Work Phone: [facility] 11-13-2024 11:17-0500 Body mass index (BMI) [Ratio] 32.83 kg/m2 Gracesa Reveles TRAVELING REPAIR ACCOUNTANT-DEMURRAGE CLERK Work Phone: [facility] 11-13-2024 11:17-0500 Body temperature 97.5 [degF] Grace Reveles TRAVELING REPAIR ACCOUNTANT-DEMURRAGE CLERK Work Phone: [facility] 11-13-2024 11:17-0500 Body weight 103.78 kg Grace Reveles TRAVELING REPAIR ACCOUNTANT-DEMURRAGE CLERK Work Phone: [facility] 11-13-2024 11:17-0500 Diastolic blood pressure 68 mm[Hg] Grace Reveles TRAVELING REPAIR ACCOUNTANT-DEMURRAGE CLERK Work Phone: [facility] 11-13-2024 11:17-0500 Heart rate 64 /min Grace Reveles TRAVELING REPAIR ACCOUNTANT-DEMURRAGE CLERK Work Phone: [facility] 11-13-2024 11:17-0500 Systolic blood pressure 138 mm[Hg] Grace Reveles TRAVELING REPAIR ACCOUNTANT-DEMURRAGE CLERK Work Phone: [facility] 11-12-2024 11:41-0500 Body mass index (BMI) [Ratio] 33.7 kg/m2 Dr. Marques Casanova MD Work Phone: [facility] 11-12-2024 11:41-0500 Body weight 106.[address] Marques Casanova MD Work Phone: [facility] 11-12-2024 11:41-0500 Diastolic blood pressure 83 mm[Hg] Dr. Marques Casanova MD Work Phone: [facility] 11-12-2024 11:41-0500 Heart rate 66 /min Dr. Marques Casanova MD Work Phone: [facility] 11-12-2024 11:41-0500 SaO2% (BldA) [Mass fraction] 95 % Dr. Marques Casanova MD Work Phone: [facility] 11-12-2024 11:41-0500 Systolic blood pressure 159 mm[Hg] Dr. Marques Casanova MD Work Phone: [facility] 08-25-2024 04:12-0400 Body mass index (BMI) [Ratio] 28.1 kg/m2 Dr. Marques Casanova MD Work Phone: [facility] 02-24-2024 09:27-0400 Body height 177.8 cm Macy Damon DO Work Phone: [facility] 02-24-2024 09:27-0400 Body mass index (BMI) [Ratio] 31.42 kg/m2 Macy Damon DO Work Phone: [facility] 02-24-2024 09:27-0400 Body temperature 97.9 [degF] Macy Damon DO Work Phone: [facility] 02-24-2024 09:27-0400 Body weight 99.34 kg Macy Damon DO Work Phone: [facility] 02-24-2024 09:27-0400 Diastolic blood pressure 74 mm[Hg] Macy Damon DO Work Phone: [facility] 02-24-2024 09:27-0400 Heart rate 66 /min Macy Damon DO Work Phone: [facility] 02-24-2024 09:27-0400 Respiratory rate 18 /min Macy Damon DO Work Phone: [facility] 02-24-2024 09:27-0400 SaO2% (BldA) [Mass fraction] 99 % Macy Damon DO Work Phone: [facility] 02-24-2024 09:27-0400 Systolic blood pressure 132 mm[Hg] Macy Damon DO Work Phone: [facility] 02-24-2024 09:20-0400 Body height 177.8 cm KMI Watters MD Work Phone: [facility] 02-24-2024 09:20-0400 Body mass index (BMI) [Ratio] 31.42 kg/m2 KIM Watters MD Work Phone: 5(159)185-059248 [place] [address] 02-24-2024 09:20-0400 Body temperature 97.9 [degF] KIM Watters MD Work Phone: 5(614)855-979348 [place] [address] 02-24-2024 09:20-0400 Body weight 99.34 kg KIM Watters MD Work Phone: [facility] 02-24-2024 09:20-0400 Diastolic blood pressure 74 mm[Hg] KIM Watters MD Work Phone: 4(784)900-377748 [place] [address] 02-24-2024 09:20-0400 Heart rate 66 /min KIM Watters MD Work Phone: 6(354)999-180548 [place] [address] 02-24-2024 09:20-0400 Respiratory rate 18 /min KIM Watters MD Work Phone: [facility] 02-24-2024 09:20-0400 SaO2% (BldA) [Mass fraction] 99 % KIM Watters MD Work Phone: [facility] 02-24-2024 09:20-0400 Systolic blood pressure 132 mm[Hg] KIM Watters MD Work Phone: [facility] 12-23-2023 11:03-0500 Body height 177.[address] Marques Casanova Work Phone: [facility] 12-23-2023 11:03-0500 Body mass index (BMI) [Ratio] 32 kg/m2 Dr. Marques Casanova Work Phone: [facility] 12-23-2023 11:03-0500 Body temperature 98.2 [degF] Dr. Marques Casanova Work Phone: [facility] 12-23-2023 11:03-0500 Body weight 101.[address] Marques Casanova Work Phone: [facility] 12-23-2023 11:03-0500 Diastolic blood pressure 75 mm[Hg] Dr. Marques Casanova Work Phone: [facility] 12-23-2023 11:03-0500 Heart rate 66 /min Dr. Marques Casanova Work Phone: [facility] 12-23-2023 11:03-0500 SaO2% (BldA) [Mass fraction] 97 % Dr. Marques Casanova Work Phone: [facility] 12-23-2023 11:03-0500 Systolic blood pressure 137 mm[Hg] Dr. Marques Casanova Work Phone: [facility] 10-24-2023 13:25-0500 Body height 177.[address] Marques Casanova Work Phone: [facility] 10-24-2023 13:25-0500 Body mass index (BMI) [Ratio] 30.4 kg/m2 Dr. Marques Casanova Work Phone: [facility] 10-24-2023 13:25-0500 Body temperature 97.7 [degF] Dr. Marques Casanova Work Phone: [facility] 10-24-2023 13:25-0500 Body weight 96.[address] Marques Casanova Work Phone: [facility] 10-24-2023 13:25-0500 Diastolic blood pressure 77 mm[Hg] Dr. Marques Casanova Work Phone: [facility] 10-24-2023 13:25-0500 Heart rate 77 /min Dr. Marques Casanova Work Phone: [facility] 10-24-2023 13:25-0500 Respiratory rate 16 /min Dr. Marques Casanova Work Phone: [facility] 10-24-2023 13:25-0500 SaO2% (BldA) [Mass fraction] 97 % Dr. Marques Casanova Work Phone: [facility] 10-24-2023 13:25-0500 Systolic blood pressure 159 mm[Hg] Dr. Marques Casanova Work Phone: [facility] 10-21-2023 09:20-0500 Body height 177.8 cm Macyjason Damon DO Work Phone: [facility] 10-21-2023 09:20-0500 Body mass index (BMI) [Ratio] 32.5 kg/m2 Macyjason Damon DO Work Phone: [facility] 10-21-2023 09:20-0500 Body weight 102.74 kg Macyjason Damon DO Work Phone: [facility] 10-21-2023 09:20-0500 Diastolic blood pressure 64 mm[Hg] Macy Damon DO Work Phone: [facility] 10-21-2023 09:20-0500 Heart rate 64 /min Macy Damon DO Work Phone: [facility] 10-21-2023 09:20-0500 SaO2% (BldA) [Mass fraction] 97 % Macy Damon DO Work Phone: [facility] 10-21-2023 09:20-0500 Systolic blood pressure 128 mm[Hg] Macy Damon DO Work Phone: [facility] 09-23-2023 13:50-0400 Body mass index (BMI) [Ratio] 31.8 kg/m2 KIM Ahn MD Work Phone: [facility] 09-23-2023 13:50-0400 Body temperature 97 [degF] KIM Ahn MD Work Phone: [facility] 09-23-2023 13:50-0400 Body weight 100.52 kg KIM Ahn MD Work Phone: [facility] 09-23-2023 13:50-0400 Diastolic blood pressure 64 mm[Hg] KIM Ahn MD Work Phone: [facility] 09-23-2023 13:50-0400 Heart rate 70 /min KIM Ahn MD Work Phone: [facility] 09-23-2023 13:50-0400 Systolic blood pressure 137 mm[Hg] KIM Ahn MD Work Phone: [facility] 08-25-2023 02:48-0400 Body mass index (BMI) [Ratio] 28.1 kg/m2 Dr. Marques Casanova Work Phone: [facility] 07-25-2023 22:58-0400 Body mass index (BMI) [Ratio] 28.1 kg/m2 Dr. Marques Casanova Work Phone: [facility] 07-22-2023 14:09-0400 Body height 177.[address] Marques Casanova Work Phone: [facility] 07-22-2023 14:09-0400 Body mass index (BMI) [Ratio] 31 kg/m2 Dr. Marques Casanova Work Phone: [facility] 07-22-2023 14:09-0400 Body temperature 98 [degF] Dr. Marques Casanova Work Phone: [facility] 07-22-2023 14:09-0400 Body weight 98.[address] Marques Casanova Work Phone: [facility] 07-22-2023 14:09-0400 Diastolic blood pressure 76 mm[Hg] Dr. Marques Casanova Work Phone: [facility] 07-22-2023 14:09-0400 Heart rate 76 /min Dr. Marques Casanova Work Phone: [facility] 07-22-2023 14:09-0400 Respiratory rate 16 /min Dr. Marques Casanova Work Phone: [facility] 07-22-2023 14:09-0400 SaO2% (BldA) [Mass fraction] 97 % Dr. Marques Casanova Work Phone: [facility] 07-22-2023 14:09-0400 Systolic blood pressure 156 mm[Hg] Dr. Marques Casanova Work Phone: [facility] 05-29-2023 15:35-0400 Body weight 96.[address] Marques Casanova Work Phone: [facility] 05-29-2023 15:35-0400 Diastolic blood pressure 59 mm[Hg] Dr. Marques Casanova Work Phone: [facility] 05-29-2023 15:35-0400 Heart rate 69 /min Dr. Marques Casanova Work Phone: [facility] 05-29-2023 15:35-0400 Respiratory rate 20 /min Dr. Marques Casanova Work Phone: [facility] 05-29-2023 15:35-0400 Systolic blood pressure 105 mm[Hg] Dr. Marques Casanova Work Phone: [facility] 05-29-2023 08:57-0400 Body height 177.[address] Marques Casanova Work Phone: [facility] 04-25-2023 09:43-0400 Body mass index (BMI) [Ratio] 28.1 kg/m2 Dr. Marques Casanova Work Phone: [facility] 04-15-2023 13:02-0400 Body height 177.[address] Marques Casanova Work Phone: 3(932)534-329995 [place] [address] 04-15-2023 13:02-0400 Body mass index (BMI) [Ratio] 30.8 kg/m2 Dr. Marques Casanova Work Phone: 0(915)037-182195 [place] [address] 04-15-2023 13:02-0400 Body temperature 98.4 [degF] Dr. Marques Casanova Work Phone: [facility] 04-15-2023 13:02-0400 Body weight 97.[address] Marques Casanova Work Phone: [facility] 04-15-2023 13:02-0400 Diastolic blood pressure 76 mm[Hg] Dr. Marques Casanova Work Phone: [facility] 04-15-2023 13:02-0400 Heart rate 72 /min Dr. Marques Casanova Work Phone: [facility] 04-15-2023 13:02-0400 Respiratory rate 20 /min Dr. Marques Casanova Work Phone: [facility] 04-15-2023 13:02-0400 SaO2% (BldA) [Mass fraction] 95 % Dr. Marques Casanova Work Phone: [facility] 04-15-2023 13:02-0400 Systolic blood pressure 162 mm[Hg] Dr. Marques Casanova Work Phone: [facility] 03-24-2023 01:22-0400 Body mass index (BMI) [Ratio] 28.1 kg/m2 Dr. Marques Casanova Work Phone: [facility] 03-21-2023 14:35-0400 Body height 177.8 cm Stacie Manrique MD Work Phone: 1(915)315-429489 [place] [address] 03-21-2023 14:35-0400 Body mass index (BMI) [Ratio] 30.85 kg/m2 tSacie Manrique MD Work Phone: 3(767)318-683589 [place] [address] 03-21-2023 14:35-0400 Body weight 97.52 kg Stacie Manrique MD Work Phone: 8(051)078-593489 [place] [address] 03-21-2023 14:35-0400 Diastolic blood pressure 58 mm[Hg] Stacie Manrique MD Work Phone: 7(700)265-485989 [place] [address] 03-21-2023 14:35-0400 Heart rate 75 /min Stacie Manrique MD Work Phone: 8(501)947-375389 [place] [address] 03-21-2023 14:35-0400 Respiratory rate 18 /min Stacie Manrique MD Work Phone: 8(701)936-804789 [place] [address] 03-21-2023 14:35-0400 SaO2% (BldA) [Mass fraction] 97 % Stacie Manrique MD Work Phone: 4(154)327-256489 [place] [address] 03-21-2023 14:35-0400 Systolic blood pressure 126 mm[Hg] Stacie Manrique MD Work Phone: 9(154)046-565789 [place] [address] 03-05-2023 14:46-0400 Body height 177.[address] Marques Casanova Work Phone: [facility] 03-05-2023 14:46-0400 Body mass index (BMI) [Ratio] 30.1 kg/m2 Dr. Marques Casanova Work Phone: [facility] 03-05-2023 14:46-0400 Body weight 95.[address] Marques Casanova Work Phone: [facility] 03-05-2023 14:46-0400 Diastolic blood pressure 68 mm[Hg] Dr. Marques Casanova Work Phone: [facility] 03-05-2023 14:46-0400 Heart rate 71 /min Dr. Marques Casanova Work Phone: [facility] 03-05-2023 14:46-0400 Respiratory rate 16 /min Dr. Marques Casanova Work Phone: [facility] 03-05-2023 14:46-0400 SaO2% (BldA) [Mass fraction] 97 % Dr. Marques Casanova Work Phone: [facility] 03-05-2023 14:46-0400 Systolic blood pressure 134 mm[Hg] Dr. Marques Casanova Work Phone: [facility] 01-28-2023 15:10-0500 Body height 177.8 cm Megan Canales MD Work Phone: [facility] 01-28-2023 15:10-0500 Body mass index (BMI) [Ratio] 31.14 kg/m2 Megan Canales MD Work Phone: [facility] 01-28-2023 15:10-0500 Body weight 98.43 kg Megan Canales MD Work Phone: [facility] 01-28-2023 15:10-0500 Diastolic blood pressure 70 mm[Hg] Megan Canales MD Work Phone: [facility] 01-28-2023 15:10-0500 Heart rate 70 /min Megan Canales MD Work Phone: [facility] 01-28-2023 15:10-0500 SaO2% (BldA) [Mass fraction] 90 % Megan Canales MD Work Phone: [facility] 01-28-2023 15:10-0500 Systolic blood pressure 138 mm[Hg] Megan Canales MD Work Phone: [facility] 01-22-2023 23:03-0500 Body mass index (BMI) [Ratio] 28.1 kg/m2 Dr. Marques Casanova Work Phone: [facility] 01-10-2023 13:06-0500 Body height 177.[address] Marques Casanova Work Phone: [facility] 01-10-2023 13:06-0500 Body mass index (BMI) [Ratio] 30.9 kg/m2 Dr. Marques Casanova Work Phone: [facility] 01-10-2023 13:06-0500 Body temperature 96.6 [degF] Dr. Marques Casanova Work Phone: [facility] 01-10-2023 13:06-0500 Body weight 97.[address] Marques Casanova Work Phone: [facility] 01-10-2023 13:06-0500 Diastolic blood pressure 69 mm[Hg] Dr. Marques Casanova Work Phone: [facility] 01-10-2023 13:06-0500 Heart rate 67 /min Dr. Marques Casanova Work Phone: [facility] 01-10-2023 13:06-0500 Respiratory rate 20 /min Dr. Marques Casanova Work Phone: [facility] 01-10-2023 13:06-0500 SaO2% (BldA) [Mass fraction] 94 % Dr. Marques Casanova Work Phone: [facility] 01-10-2023 13:06-0500 Systolic blood pressure 127 mm[Hg] Dr. Marques Casanova Work Phone: [facility] 12-26-2022 07:40-0500 Body mass index (BMI) [Ratio] 28.1 kg/m2 Dr. Marques Casanova Work Phone: [facility] 10-08-2022 08:11-0500 Body height 177.[address] Marques Casanova Work Phone: [facility] 10-08-2022 08:11-0500 Body mass index (BMI) [Ratio] 32 kg/m2 Dr. Marques Casanova Work Phone: [facility] 10-08-2022 08:11-0500 Body temperature 96.6 [degF] Dr. Marques Casanova Work Phone: [facility] 10-08-2022 08:11-0500 Body weight 101.[address] Marques Casanova Work Phone: [facility] 10-08-2022 08:11-0500 Diastolic blood pressure 68 mm[Hg] Dr. Marques Casanova Work Phone: [facility] 10-08-2022 08:11-0500 Heart rate 71 /min Dr. Marques Casanova Work Phone: [facility] 10-08-2022 08:11-0500 Respiratory rate 18 /min Dr. Marques Casanova Work Phone: [facility] 10-08-2022 08:11-0500 SaO2% (BldA) [Mass fraction] 96 % Dr. Marques Casanova Work Phone: [facility] 10-08-2022 08:11-0500 Systolic blood pressure 123 mm[Hg] Dr. Marques Casanova Work Phone: [facility] 09-25-2022 09:40-0400 Body mass index (BMI) [Ratio] 28.1 kg/m2 Dr. Marques Casanova Work Phone: [facility] 09-17-2022 13:03-0400 Body mass index (BMI) [Ratio] 30.99 kg/m2 Armando ALVAREZ Work Phone: [facility] 09-17-2022 13:03-0400 Body temperature 97.9 [degF] Armando Jack [facility] Work Phone: [facility] 09-17-2022 13:03-0400 Body weight 97.98 kg Armando Jack [facility] Work Phone: [facility] 09-17-2022 13:03-0400 Diastolic blood pressure 72 mm[Hg] Armando Jack [facility] Work Phone: [facility] 09-17-2022 13:03-0400 Heart rate 65 /min Armando Jack [facility] Work Phone: [facility] 09-17-2022 13:03-0400 Systolic blood pressure 144 mm[Hg] Armando Jack [facility] Work Phone: [facility] 07-25-2022 23:06-0400 Body mass index (BMI) [Ratio] 28.1 kg/m2 Dr. Marques Casanova Work Phone: [facility] 07-24-2022 14:35-0400 Body mass index (BMI) [Ratio] 30.1 kg/m2 Dr. Marques Casanova Work Phone: [facility] Work Phone: 07-17-2022 11:13-0400 Body temperature 97.8 [degF] Dr. Marques Casanova Work Phone: [facility] Work Phone: 07-17-2022 11:13-0400 Diastolic blood pressure 72 mm[Hg] Dr. Marques Casanova Work Phone: [facility] Work Phone: 07-17-2022 11:13-0400 Heart rate 63 /min Dr. Marques Casanova Work Phone: [facility] Work Phone: 07-17-2022 11:13-0400 Respiratory rate 20 /min Dr. Marques Casanova Work Phone: [facility] Work Phone: 07-17-2022 11:13-0400 Systolic blood pressure 128 mm[Hg] Dr. Marques Casanova Work Phone: [facility] Work Phone: 06-25-2022 00:32-0400 Body weight 95.[address] Marques Casanova Work Phone: [facility] Work Phone: 06-19-2022 09:01-0400 Body mass index (BMI) [Ratio] 30.1 kg/m2 Dr. Marques Casanova Work Phone: [facility] Work Phone: 06-19-2022 09:01-0400 Body temperature 96.7 [degF] Dr. Marques Casanova Work Phone: [facility] Work Phone: 06-19-2022 09:01-0400 Diastolic blood pressure 59 mm[Hg] Dr. Marques Casanova Work Phone: [facility] Work Phone: 06-19-2022 09:01-0400 Heart rate 69 /min Dr. Marques Casanova Work Phone: [facility] Work Phone: 06-19-2022 09:01-0400 Respiratory rate 16 /min Dr. Marques Casanova Work Phone: [facility] Work Phone: 06-19-2022 09:01-0400 Systolic blood pressure 115 mm[Hg] Dr. Marques Casanova Work Phone: [facility] Work Phone: 06-07-2022 13:17-0400 Body height 177.[address] Marques Casanova Work Phone: [facility] Work Phone: 06-07-2022 13:17-0400 Body mass index (BMI) [Ratio] 29.7 kg/m2 Dr. Marques Casanova Work Phone: [facility] Work Phone: 06-07-2022 13:17-0400 Body temperature 96.8 [degF] Dr. Marques Casanova Work Phone: [facility] Work Phone: 06-07-2022 13:17-0400 Body weight 93.[address] Marques Casanova Work Phone: [facility] Work Phone: 06-07-2022 13:17-0400 Diastolic blood pressure 70 mm[Hg] Dr. Marques Casanova Work Phone: [facility] Work Phone: 06-07-2022 13:17-0400 Heart rate 70 /min Dr. Marques Casanova Work Phone: [facility] Work Phone: 06-07-2022 13:17-0400 Respiratory rate 18 /min Dr. Marques Casanova Work Phone: [facility] Work Phone: 06-07-2022 13:17-0400 SaO2% (BldA) [Mass fraction] 98 % Dr. Marques Casanova Work Phone: [facility] Work Phone: 06-07-2022 13:17-0400 Systolic blood pressure 136 mm[Hg] Dr. Marques Casanova Work Phone: [facility] Work Phone: 05-25-2022 07:04-0400 Body mass index (BMI) [Ratio] 28.1 kg/m2 Dr. Marques Casanova Work Phone: [facility] Work Phone: 05-25-2022 00:43-0400 Body weight 95.[address] Marques Casanova Work Phone: [facility] Work Phone: 05-23-2022 14:00-0400 Body mass index (BMI) [Ratio] 31.41 kg/m2 Pierre Hung MD Work Phone: [facility] 05-23-2022 14:00-0400 Body temperature 98.4 [degF] Pierre Hung MD Work Phone: [facility] 05-23-2022 14:00-0400 Body weight 96.48 kg Pierre Hung MD Work Phone: [facility] 05-23-2022 14:00-0400 Diastolic blood pressure 61 mm[Hg] Pierre Hung MD Work Phone: [facility] 05-23-2022 14:00-0400 Heart rate 65 /min Pierre Hung MD Work Phone: [facility] 05-23-2022 14:00-0400 Systolic blood pressure 129 mm[Hg] Pierre Hung MD Work Phone: [facility] 05-22-2022 08:44-0400 Body mass index (BMI) [Ratio] 30.1 kg/m2 Dr. Marques Casanova Work Phone: [facility] Work Phone: 05-22-2022 08:44-0400 Body temperature 96.7 [degF] Dr. Marques Casanova Work Phone: [facility] Work Phone: 05-22-2022 08:44-0400 Diastolic blood pressure 72 mm[Hg] Dr. Marques Casanova Work Phone: [facility] Work Phone: 05-22-2022 08:44-0400 Heart rate 62 /min Dr. Marques Casanova Work Phone: [facility] Work Phone: 05-22-2022 08:44-0400 Respiratory rate 17 /min Dr. Marques Casanova Work Phone: [facility] Work Phone: 05-22-2022 08:44-0400 Systolic blood pressure 147 mm[Hg] Dr. Marques Casanova Work Phone: [facility] Work Phone: 05-03-2022 15:00-0400 Body temperature 97.8 [degF] Dr. Marques Casanova Work Phone: [facility] Work Phone: 05-03-2022 15:00-0400 Diastolic blood pressure 75 mm[Hg] Dr. Marques Casanova Work Phone: [facility] Work Phone: 05-03-2022 15:00-0400 Heart rate 64 /min Dr. Marques Casanova Work Phone: [facility] Work Phone: 05-03-2022 15:00-0400 Systolic blood pressure 147 mm[Hg] Dr. Marques Casanova Work Phone: [facility] Work Phone: 05-03-2022 09:15-0400 Body temperature 97.7 [degF] Dr. Marques Casanova Work Phone: [facility] Work Phone: 05-03-2022 09:15-0400 Diastolic blood pressure 71 mm[Hg] Dr. Marques Casanova Work Phone: [facility] Work Phone: 05-03-2022 09:15-0400 Heart rate 66 /min Dr. Marques Casanova Work Phone: [facility] Work Phone: 05-03-2022 09:15-0400 Respiratory rate 16 /min Dr. Marques Casanova Work Phone: [facility] Work Phone: 05-03-2022 09:15-0400 SaO2% (BldA) [Mass fraction] 96 % Dr. Marques Casanova Work Phone: [facility] Work Phone: 05-03-2022 09:15-0400 Systolic blood pressure 140 mm[Hg] Dr. Marques Casanova Work Phone: [facility] Work Phone: 05-02-2022 15:07-0400 Body height 177.[address] Marques Casanova Work Phone: [facility] Work Phone: 05-02-2022 15:07-0400 Body mass index (BMI) [Ratio] 29.7 kg/m2 Dr. Marques Casanova Work Phone: [facility] Work Phone: 05-02-2022 15:07-0400 Body weight 94.[address] Marques Casanova Work Phone: [facility] Work Phone: 05-01-2022 10:30-0400 Body mass index (BMI) [Ratio] 30.1 kg/m2 Dr. Marques Casanova Work Phone: [facility] Work Phone: 05-01-2022 10:30-0400 Body temperature 96.9 [degF] Dr. Marques Casanova Work Phone: [facility] Work Phone: 05-01-2022 10:30-0400 Diastolic blood pressure 70 mm[Hg] Dr. Marques Casanova Work Phone: [facility] Work Phone: 05-01-2022 10:30-0400 Heart rate 67 /min Dr. Marques Casanova Work Phone: [facility] Work Phone: 05-01-2022 10:30-0400 Systolic blood pressure 137 mm[Hg] Dr. Marques Casanova Work Phone: [facility] Work Phone: 04-25-2022 01:17-0400 Body weight 95.[address] Marques Casanova Work Phone: [facility] Work Phone: 04-25-2022 01:17-0400 Respiratory rate 16 /min Dr. Marques Casanova Work Phone: [facility] Work Phone: 04-24-2022 10:20-0400 Body mass index (BMI) [Ratio] 30.1 kg/m2 Dr. Marques Casanova Work Phone: [facility] Work Phone: 04-24-2022 10:20-0400 Body temperature 97 [degF] Dr. Marques Casanova Work Phone: [facility] Work Phone: 04-24-2022 10:20-0400 Diastolic blood pressure 75 mm[Hg] Dr. Marques Casanova Work Phone: [facility] Work Phone: 04-24-2022 10:20-0400 Heart rate 74 /min Dr. Marques Casanova Work Phone: [facility] Work Phone: 04-24-2022 10:20-0400 Systolic blood pressure 119 mm[Hg] Dr. Marques Casanova Work Phone: [facility] Work Phone: 04-17-2022 10:04-0400 Body height 177.[address] Marques Casanova Work Phone: [facility] Work Phone: 04-17-2022 10:04-0400 Body weight 95.[address] Marques Casanova Work Phone: [facility] Work Phone: 04-17-2022 10:04-0400 Respiratory rate 16 /min Dr. Marques Casanvoa Work Phone: [facility] Work Phone: 04-10-2022 12:58-0400 Body temperature 98.6 [degF] Dr. Marques Casanova Work Phone: [facility] Work Phone: 04-10-2022 12:58-0400 Diastolic blood pressure 96 mm[Hg] Dr. Marques Casanova Work Phone: [facility] Work Phone: 04-10-2022 12:58-0400 Heart rate 77 /min Dr. Marques Casanova Work Phone: [facility] Work Phone: 04-10-2022 12:58-0400 Respiratory rate 18 /min Dr. Marques Casanova Work Phone: [facility] Work Phone: 04-10-2022 12:58-0400 SaO2% (BldA) [Mass fraction] 98 % Dr. Marques Casanova Work Phone: [facility] Work Phone: 04-10-2022 12:58-0400 Systolic blood pressure 145 mm[Hg] Dr. Marques Casanova Work Phone: [facility] Work Phone: 04-08-2022 09:48-0400 Body weight 93.[address] Marques Casanova Work Phone: [facility] Work Phone: 04-07-2022 18:27-0400 Body mass index (BMI) [Ratio] 29.5 kg/m2 Dr. Marques Casanova Work Phone: [facility] Work Phone: 04-07-2022 18:23-0400 Body temperature 97.4 [degF] Dr. Marques Casanova Work Phone: [facility] Work Phone: 04-07-2022 18:23-0400 Diastolic blood pressure 74 mm[Hg] Dr. Marques Casanova Work Phone: [facility] Work Phone: 04-07-2022 18:23-0400 Heart rate 69 /min Dr. Marques Casanova Work Phone: [facility] Work Phone: 04-07-2022 18:23-0400 Respiratory rate 16 /min Dr. Marques Casanova Work Phone: [facility] Work Phone: 04-07-2022 18:23-0400 SaO2% (BldA) [Mass fraction] 96 % Dr. Marques Casanova Work Phone: [facility] Work Phone: 04-07-2022 18:23-0400 Systolic blood pressure 129 mm[Hg] Dr. Marques Casanova Work Phone: [facility] Work Phone: 04-07-2022 15:37-0400 Body height 177.[address] Marques Casanova Work Phone: [facility] Work Phone: 04-07-2022 15:37-0400 Body mass index (BMI) [Ratio] 30.1 kg/m2 Dr. Marques Casanova Work Phone: [facility] Work Phone: 04-07-2022 15:37-0400 Body weight 95.[address] Marques Casanova Work Phone: [facility] Work Phone: 04-05-2022 14:15-0400 Body mass index (BMI) [Ratio] 30.4 kg/m2 Dr. Marques Casanova Work Phone: [facility] Work Phone: 04-05-2022 14:15-0400 Body temperature 96.6 [degF] Dr. Marques Casanova Work Phone: [facility] Work Phone: 04-05-2022 14:15-0400 Body weight 96.[address] Marques Casanova Work Phone: [facility] Work Phone: 04-05-2022 14:15-0400 Diastolic blood pressure 60 mm[Hg] Dr. Marques Casanova Work Phone: [facility] Work Phone: 04-05-2022 14:15-0400 Heart rate 77 /min Dr. Marques Casanova Work Phone: [facility] Work Phone: 04-05-2022 14:15-0400 Respiratory rate 16 /min Dr. Marques Casanova Work Phone: [facility] Work Phone: 04-05-2022 14:15-0400 SaO2% (BldA) [Mass fraction] 96 % Dr. Marques Casanova Work Phone: [facility] Work Phone: 04-05-2022 14:15-0400 Systolic blood pressure 120 mm[Hg] Dr. Marques Casanova Work Phone: [facility] Work Phone: 04-05-2022 14:15-0400 Body mass index (BMI) [Ratio] 30.4 kg/m2 Dr. Marques Casanova Work Phone: [facility] Work Phone: 04-05-2022 14:15-0400 Body temperature 96.6 [degF] Dr. Marques Casanova Work Phone: [facility] Work Phone: 04-05-2022 14:15-0400 Body weight 96.[address] Marques Casanova Work Phone: [facility] Work Phone: 04-05-2022 14:15-0400 Diastolic blood pressure 60 mm[Hg] Dr. Marques Casanova Work Phone: [facility] Work Phone: 04-05-2022 14:15-0400 Heart rate 77 /min Dr. Marques Casanova Work Phone: [facility] Work Phone: 04-05-2022 14:15-0400 Respiratory rate 16 /min Dr. Marques Casanova Work Phone: [facility] Work Phone: 04-05-2022 14:15-0400 SaO2% (BldA) [Mass fraction] 96 % Dr. Marques Casanova Work Phone: [facility] Work Phone: 04-05-2022 14:15-0400 Systolic blood pressure 120 mm[Hg] Dr. Marques Casanova Work Phone: [facility] Work Phone: 03-19-2022 09:29-0400 Body mass index (BMI) [Ratio] 31.34 kg/m2 Al Carroll MD Work Phone: [facility] 03-19-2022 09:29-0400 Body temperature 97.59 [degF] Al Carroll MD Work Phone: [facility] 03-19-2022 09:29-0400 Body weight 96.25 kg Al Carroll MD Work Phone: [facility] 03-19-2022 09:29-0400 Diastolic blood pressure 76 mm[Hg] Al Carroll MD Work Phone: [facility] 03-19-2022 09:29-0400 Heart rate 67 /min Al Carroll MD Work Phone: [facility] 03-19-2022 09:29-0400 Systolic blood pressure 145 mm[Hg] Al Carroll MD Work Phone: [facility] 02-28-2022 16:31-0400 Body mass index (BMI) [Ratio] 31.4 kg/m2 Dr. Marques Casanova Work Phone: [facility] Work Phone: 02-28-2022 16:31-0400 Body temperature 96.8 [degF] Dr. Marques Casanova Work Phone: [facility] Work Phone: 02-28-2022 16:31-0400 Body weight 99.[address] Marques Casanova Work Phone: [facility] Work Phone: 02-28-2022 16:31-0400 Diastolic blood pressure 78 mm[Hg] Dr. Marques Casanova Work Phone: [facility] Work Phone: 02-28-2022 16:31-0400 Heart rate 68 /min Dr. Marques Casanova Work Phone: [facility] Work Phone: 02-28-2022 16:31-0400 Respiratory rate 17 /min Dr. Marques Casanova Work Phone: [facility] Work Phone: 02-28-2022 16:31-0400 SaO2% (BldA) [Mass fraction] 98 % Dr. Marques Casanova Work Phone: [facility] Work Phone: 02-28-2022 16:31-0400 Systolic blood pressure 150 mm[Hg] Dr. Marques Casanova Work Phone: [facility] Work Phone: 02-28-2022 16:31-0400 Body mass index (BMI) [Ratio] 31.4 kg/m2 Dr. Marques Casanova Work Phone: [facility] Work Phone: 02-28-2022 16:31-0400 Body temperature 96.8 [degF] Dr. Marques Casanova Work Phone: [facility] Work Phone: 02-28-2022 16:31-0400 Body weight 99.[address] Marques Casanova Work Phone: [facility] Work Phone: 02-28-2022 16:31-0400 Diastolic blood pressure 78 mm[Hg] Dr. Marques Casanova Work Phone: [facility] Work Phone: 02-28-2022 16:31-0400 Heart rate 68 /min Dr. Marques Casanova Work Phone: [facility] Work Phone: 02-28-2022 16:31-0400 Respiratory rate 17 /min Dr. Marques Casanova Work Phone: [facility] Work Phone: 02-28-2022 16:31-0400 SaO2% (BldA) [Mass fraction] 98 % Dr. Marques Casanova Work Phone: [facility] Work Phone: 02-28-2022 16:31-0400 Systolic blood pressure 150 mm[Hg] Dr. Marques Casanova Work Phone: [facility] Work Phone: 02-23-2022 02:31-0400 Body mass index (BMI) [Ratio] 28.1 kg/m2 Dr. Marques Casanova Work Phone: [facility] Work Phone: 11-26-2021 04:22-0500 Body mass index (BMI) [Ratio] 28.1 kg/m2 Dr. Marques Casanova Work Phone: [facility] Work Phone: 11-26-2021 03:22-0500 Body mass index (BMI) [Ratio] 28.1 kg/m2 [facility] Work Phone: 10-25-2021 02:25-0500 Body mass index (BMI) [Ratio] 28.1 kg/m2 [facility] Work Phone: 06-19-2021 12:58-0400 Body mass index (BMI) [Ratio] 31.07 kg/m2 Megan Canales MD Work Phone: [facility] 06-19-2021 12:58-0400 Body weight 101.06 kg Megan Canales MD Work Phone: [facility] 06-19-2021 12:58-0400 Diastolic blood pressure 62 mm[Hg] Megan Canales MD Work Phone: [facility] 06-19-2021 12:58-0400 Heart rate 69 /min Megan Canales MD Work Phone: [facility] 06-19-2021 12:58-0400 SaO2% (BldA) [Mass fraction] 97 % Megan Canales MD Work Phone: [facility] 06-19-2021 12:58-0400 Systolic blood pressure 118 mm[Hg] Megan Canales MD Work Phone: [facility] 07-03-2017 14:42-0400 BMI (Body Mass Index) 31.22 kg/m2 [facility] Work Phone: 07-03-2017 14:42-0400 Body Temperature 98.2 [degF] [facility] Work Phone: 07-03-2017 14:42-0400 BP Diastolic 80 mm[Hg] [facility] Work Phone: 07-03-2017 14:42-0400 BP Systolic 132 mm[Hg] Jackie Vasquez LPN [facility] Work Phone: 07-03-2017 14:42-0400 Height 177.8 cm Jackie Vasquez [facility]PN [facility] Work Phone: 07-03-2017 14:42-0400 Pulse (Heart Rate) 68 /min Jackie Vasquez [facility] Work Phone: 07-03-2017 14:42-0400 Respiratory Rate 18 /min [facility] Work Phone: 07-03-2017 14:42-0400 Weight 98.7 kg Jackie Vasquez [facility] Work Phone: Encounters Encounter Date Encounter Type Care Provider Facility Start: 06-14-2025 ambulatory MARQUES CASANOVA Facility: [facility] Start: 05-24-2025 End: 05-24-2025 Patient encounter procedure Ami Contreras NP-C -[facility] Work Phone: Start: 05-24-2025 End: 05-24-[address] Marques Casanova MD Work Phone: -[facility] Start: 05-18-2025 End: 05-18-2025 Patient encounter procedure Alysa Solomon PA -[facility] Work Phone: Start: 05-18-2025 End: 05-18-[address] Marques Casanova MD Work Phone: [facility] Work Phone: Start: 05-05-2025 End: 05-12-2025 Telephone encounter Shell Kruger APRN.CNP Work Phone: [facility] Comment on above: Patient Update ([facility] michelle CPAP ) Start: 05-04-2025 End: 05-04-[address] Marques Casanova MD Work Phone: [facility] Work Phone: Start: 05-04-2025 End: 05-04-[address] Marques Casanova MD -[facility] [place] Work Phone: Start: 05-04-2025 End: 05-04-2025 ambulatory Marques Casanova Facility:[facility] Start: 04-07-2025 End: 04-07-2025 Patient encounter procedure SHARMIN Jacobson -[facility] Work Phone: Start: 04-07-2025 End: 04-07-[address] Marques Casanova MD Work Phone: [facility] Work Phone: Start: 03-25-2025 ambulatory [facility] Facility :[facility] Start: 03-23-2025 End: 03-24-[address] Marques Casanova MD Work Phone: -Laboratory Work Phone: Start: 03-23-2025 End: 03-24-2025 ambulatory [facility] Facility:[facility] Start: 02-20-2025 End: 02-20-2025 Patient encounter procedure Erika Cotton [employer] MANAGER-C -[facility] Work Phone: Start: 02-20-2025 End: 02-20-2025 ambulatory Marques Casanova Facility:[facility] Start: 02-11-2025 End: 02-11-2025 Patient encounter procedure Ami Contreras HORSE FARM MANAGER-C -[facility] Work Phone: Start: 02-11-2025 End: 02-11-2025 ambulatory Ami Contreras Facility:[facility] Start: 02-10-2025 End: 02-10-[address] Marques Casanova MD Work Phone: [facility] Work Phone: Start: 02-10-2025 End: 02-10-2025 Patient encounter procedure SHARMIN Jacobson -[facility] Work Phone: Start: 02-10-2025 End: 02-10-2025 ambulatory Chikis Jacobson Facility:[facility] Start: 01-22-2025 End: 01-22-2025 ambulatory Facility:[facility] Start: 01-22-2025 End: 01-22-2025 Office outpatient visit 15 minutes Jarad Jaycee [employer]OSTERDEMURRAGE CLERK Work Phone: [facility] Comment on above: Fever, unspecified f ever cause (Primary Dx); Viral illness; Acute cough Start: 01-22-2025 Encounter for genera l adult medical examination without abnormal findings Chikis Jacobson [facility] Start: 01-20-2025 End: 01-20-2025 Patient encounter procedure SHARMIN Jacobson -[facility] Work Phone: Start: 01-20-2025 End: 01-20-2025 ambulatory Chikis Jacobson Facility[facility] Start: 01-11-2025 End: 01-11-2025 Patient encounter procedure H[employer]SE FARM MANAGER Chikis Jacobson -[facility] Work Phone: Start: 01-11-2025 End: 01-11-2025 ambulatory Chikis Jacobson Facility:[facility] Start: 01-01-2025 End: 01-01-2025 Patient encounter procedure SHARMIN Jacobson -Pulmonary Services/Neurology Work Phone: Start: 01-01-2025 End: 01-01-2025 ambulatory Gerson Prasad Facility:[facility] Start: 12-30-2024 ambulatory Gerson Prasad [facility] Start: 12-30-2024 Non-patient / Non-visit Dr. Gerson liz DO -[facility] Start: 12-25-2024 End: 12-25-2024 Patient encounter procedure SHARMIN Jacobson -Sleep Lab Work Phone: Start: 12-25-2024 End: 12-25-2024 ambulatory Chikis Jacobson Facility:[facility] Start: 12-21-2024 End: 12-21-2024 Patient encounter procedure SHARMIN Jacobson -Pulmonary Services/Neurology Work Phone: Start: 12-21-2024 End: 12-21-2024 ambulatory Chikis Jacobson Facility:[facility] Start: 12-18-2024 End: 12-18-2024 Patient encounter procedure Alysa [place] -[facility] Work Phone: Start: 12-18-2024 End: 12-18-2024 ambulatory Marques Casanova Facility:[facility] Start: 12-14-2024 End: 12-14-2024 Patient encounter procedure Homer Chapin PA -[facility] Work Phone: Start: 12-14-2024 End: 12-14-2024 ambulatory Marques Casanova Facility:[facility] Start: 11-26-2024 End: 11-26-2024 Patient encounter procedure H[employer]SE FARM MANAGER Chikis Jacobson -[facility] Work Phone: Start: 11-26-2024 End: 11-26-2024 ambulatory Chikis Jacobson [facility] Start: 11-13-2024 End: 11-13-2024 Office outpatient visit 25 minutes Grace Reveles TRAVELING REPAIR ACCOUNTANT-DEMURRAGE CLERK Work Phone: [facility] Comment on above: Kidney replaced by t ransplant (Primary Dx) Start: 11-13-2024 ambulatory MARQUES CASANOVA Facility: [facility] Start: 11-12-2024 End: 11-12-2024 Patient encounter procedure Ami Contreras HORSE FARM MANAGER-C -[facility] Work Phone: Start: 11-12-2024 End: 11-12-2024 ambulatory Ami Contreras Facility:[facility] Start: 11-10-2024 End: 11-10-[address] Marques Casanova MD -Laboratory, [place] Work Phone: Start: 11-10-2024 End: 11-10-2024 ambulatory Marques Casanova Facility:[facility] Start: 10-13-2024 End: 10-13-2024 ambulatory Jacob Suarez RPh,PharmD [facility] Start: 10-13-2024 End: 10-13-2024 Patient encounter procedure Jacob Suarez RPh,PharmD [facility] Start: 09-15-2024 End: 09-15-2024 ambulatory Jacob Erick Goldsmith,PharmD [facility] Start: 09-15-2024 End: 09-15-2024 Patient encounter procedure Jacob Erick RPh,PharmD [facility] Start: 08-13-2024 End: 08-13-2024 ambulatory Marques Casanova [facility] Start: 08-10-2024 End: 08-10-2024 ambulatory Santo Esparza Facility:[facility] Start: 06-15-2024 Telephone encounter Shell Bhatti APRN.DEMURRAGE CLERK Work Phone: Neurology Comment on above: Orders (Faxed signed CPAP Rx and e-signed office note to Alicia Junior at [phone]./) Start: 06-12-2024 Telephone encounter Shell Bhatti APRN.DEMURRAGE CLERK Work Phone: Neurology Comment on above: Orders (Received fax ed CPAP order and signed office note request from Alicia. Placed on Shell's desk for review and signature. ) Start: 05-01-2024 End: 05-01-2024 ambulatory Jakub Young RPh,PharmD [facility] Start: 05-01-2024 End: 05-01-2024 Patient encounter procedure Jakub Young RPh,PharmD [facility] Start: 04-14-2024 Telephone encounter Shell Bhatti APRN.DEMURRAGE CLERK Work Phone: [facility] Comment on above: Contact Order Proble m; PSG order problem Start: 04-01-2024 End: 04-01-2024 ambulatory Shell Kruger APRN.DEMURRAGE CLERK Work Phone: Neurology Start: 04-01-2024 Follow-up encounter Shell Bhatti APRN.DEMURRAGE CLERK Work Phone: Neurology Comment on above: Failed sleepp study follow up Start: 04-01-2024 End: 04-01-2024 Patient encounter procedure Jakubteresita Young RPh,PharmD [facility] Start: 03-24-2024 End: 03-24-[address] Marques Casanova Work Phone: [facility] Work Phone: Start: 03-24-2024 End: 03-24-[address] Marques Casanova Work Phone: [facility] Work Phone: Start: 02-24-2024 End: 02-24-2024 Office outpatient visit 25 minutes Macy Damon DO Work Phone: [facility] Comment on above: ANCA-associated vasc ulitis (Primary Dx) Start: 02-24-2024 End: 02-24-2024 Office outpatient visit 40 minutes Carleen Rosario MD, MBGLEN Work Phone: [facility] Comment on above: ANCA-associated vasc ulitis (Primary Dx); Renal transplant recipient; Chronic kidney disease-mineral and bone disorder; Hypertension, renal disease, stage 1-4 or unspecified chronic kidney disease Start: 01-23-2024 End: 01-23-2024 ambulatory Jacob Suarez RPh,PharmD [facility] Start: 01-23-2024 End: 01-23-2024 Patient encounter procedure Jacob Suarez RPh,PharmD [facility] Start: 12-31-2023 End: 01-23-[address] Marques Casanova Work Phone: [facility] Work Phone: Start: 12-31-2023 End: 01-23-[address] [facility] Start: 12-27-2023 ambulatory Jakub Young RPh,PharmD [facility] Start: 12-27-2023 Patient encounter procedure Jakub Young RPh,PharmD [facility] Start: 12-23-2023 End: 12-23-[address] Marques Casanova Work Phone: [facility] Work Phone: Start: 11-27-2023 ambulatory Cele Cailin calvillo [facility] Start: 11-27-2023 Patient encounter procedure Cele Souza [facility] Start: 11-16-2023 End: 11-16-2023 Subsequent hospital visit by physician Armando ALVAREZ Work Phone: [facility] [place] Comment on above: Arrived Start: 11-05-2023 End: 11-05-[address] Marques Casanova Work Phone: [facility] Work Phone: Start: 11-05-2023 End: 11-05-[address] Marques Casanova Work Phone: [facility] Work Phone: Start: 10-24-2023 End: 10-24-[address] Marques Casanova Work Phone: [facility] Work Phone: Start: 10-24-2023 End: 10-24-[address] Marques Casanova Work Phone: [facility]-Medical Out Work Phone: Start: 10-21-2023 End: 10-21-2023 Patient encounter procedure Adwoa Evans MD Work Phone: [facility] [place] [facility] Comment on above: Verruca plana (Prima ry Dx); Other viral warts; Disturbance of skin sensation Start: 10-21-2023 End: 10-21-2023 Office outpatient visit 25 minutes Adwoa Evans MD Work Phone: [facility] Comment on above: ANCA-associated vasc ulitis (Primary Dx) Start: 10-07-2023 End: 10-07-[address] Marques Casanova Work Phone: [facility] Work Phone: Start: 10-07-2023 End: 10-07-[address] Marques Casanova Work Phone: [facility], [facility] Work Phone: Start: 09-23-2023 End: 09-23-2023 Office outpatient visit 40 minutes Armando ALVAREZ Work Phone: [facility] Comment on above: Kidney replaced by t ransplant (Primary Dx); Abnormal blood chemistry; Aftercare following organ transplant; Immunosuppressed status; High risk medication use Start: 09-19-2023 End: 09-19-2023 Patient encounter procedure Adwoa Evans MD Work Phone: [facility] Comment on above: Other viral warts (P rimary Dx); Disturbance of skin sensation; Verruca plana Start: 08-12-2023 End: 08-12-[address] Marques Casanova Work Phone: [facility] Work Phone: Start: 08-12-2023 End: 08-12-[address] Marques Casanova Work Phone: [facility]-Laboratory Work Phone: Start: 07-22-2023 End: 07-22-[address] Marques Casanova Work Phone: [facility] Work Phone: Start: 07-08-2023 ambulatory Shell milligan APRN.DEMURRAGE CLERK Work Phone: Neurology Comment on above: Sleep study Start: 07-03-2023 End: 07-03-[address] Marques Casanova Work Phone: [facility]Laboratory Work Phone: Start: 06-17-2023 Non-patient / Non-visit Dr. Sarah Casanova Work Phone: [facility] Start: 06-17-2023 End: 06-17-[address] Marques Casanova Work Phone: [facility] Work Phone: Start: 06-17-2023 End: 06-17-[address] Marques Casanova [facility] Work Phone: Start: 06-12-2023 Non-patient / Non-visit Dr. Sarah Casanova Work Phone: [facility] Start: 06-10-2023 End: 06-10-[address] Marques Casanova [facility] Work Phone: Start: 05-29-2023 End: 05-29-[address] Marques Casanova Work Phone: [facility] Work Phone: Start: 05-21-2023 Non-patient / Non-visit Dr. Sarah Casanova Work Phone: [facility] Start: 05-20-2023 End: 05-20-2023 Subsequent hospital visit by physician Stacie Manrique MD Work Phone: [facility] [place] Comment on above: Canceled (Patient De clined) Start: 05-20-2023 End: 05-20-[address] Marques Casanova Work Phone: [facility] Work Phone: Start: 05-20-2023 End: 05-20-[address] Marques Casanova Work Phone: [facility]-Pulmonary Services/Neurology Work Phone: Start: 04-15-2023 End: 04-15-[address] Marques Casanova Work Phone: [facility] Endocrin[facility] Start: 04-08-2023 End: 04-24-[address] Marques Casanova Work Phone: [facility] Work Phone: Start: 04-08-2023 End: 04-24-[address] Marques Casanova Work Phone: [facility]-Laboratory Start: 04-01-2023 ambulatory Jacob Suarez RPh,PharmD [facility] Start: 04-01-2023 Patient encounter procedure Jacob Dianae RPh,PharmD [facility] Start: 03-21-2023 End: 03-21-2023 Office outpatient [address] Stacie Manrique MD Work Phone: [facility] [place] Comment on above: Coronary artery dise ase involving [place] coronary artery of [place] heart without angina pectoris (Primary Dx); Murmur; ANCA-associated vasculitis; History of heart failure; Essential hypertension; Hyperlipidemia, unspecified hyperlipidemia type; THOMASON (dyspnea on exertion) Start: 03-07-2023 ambulatory Jacob Fete RPh,PharmD [facility] Start: 03-07-2023 Patient encounter procedure Jacob Suarez RPh,PharmD [facility] Start: 03-05-2023 End: 03-05-[address] Marques Casanova Work Phone: [facility] Work Phone: Start: 03-05-2023 End: 03-05-[address] Marques Casanova Work Phone: [facility]-Medical Out Start: 02-12-2023 End: 02-12-[address] Marques Casanova Work Phone: [facility]-Outpatient Bone Densitometry Start: 02-12-2023 End: 03-24-[address] Marques Casanova Work Phone: [facility] Work Phone: Start: 02-12-2023 End: 03-24-[address] [facility] Start: 02-12-[address] Marques Casanova Work Phone: [facility] Start: 01-28-2023 End: 01-28-2023 Office outpatient visit 25 minutes Zhao Lin MD Work Phone: [facility] [place] Comment on above: ANCA-associated vasc ulitis (Primary Dx) Start: 01-22-2023 End: 01-22-[address] Marques Casanova Work Phone: [facility] Work Phone: Start: 01-22-2023 End: 01-22-[address] Marques Casanova Work Phone: [facility] Start: 01-14-2023 ambulatory Jacob Fete RPh,PharmD [facility] Start: 01-14-2023 Patient encounter procedure Jacob Fete RPh,PharmD [facility] Start: 01-10-2023 End: 01-10-[address] Marques Casanova Work Phone: [facility] Endocrinology Start: 12-31-2022 End: 12-31-[address] Marques Casanova Work Phone: [facility] Work Phone: Start: 12-31-2022 End: 12-31-[address] Marques Casanova Work Phone: [facility] Start: 12-19-2022 Telephone encounter Nicolasa Unger [facility] Comment on above: Insurance Start: 12-14-2022 ambulatory Jacob Fete RPh,PharmD [facility] Start: 12-14-2022 Patient encounter procedure Jacob Fete RPh,PharmD [facility] Start: 11-29-2022 End: 11-29-[address] Marques Casanova Work Phone: [facility] Work Phone: Start: 11-29-2022 End: 11-29-[address] Marques Casanova Work Phone: [facility]-Laboratory, [facility] Start: 11-15-2022 End: 11-15-2022 Office outpatient new 30 minutes Adwoa Evans MD Work Phone: [facility] Comment on above: Actinic skin damage (Primary Dx); SK (seborrheic keratosis); H/O immunosuppressive therapy; Melanocytic nevi of trunk; Sebaceous hyperplasia; Neoplasm of uncertain behavior of skin; Rash and nonspecific skin eruption Start: 11-12-2022 End: 11-12-[address] Marques Casanova Work Phone: [facility] Work Phone: Start: 11-12-2022 End: 11-12-[address] [facility] Start: 11-12-[address] Marques Casanova Work Phone: [facility] Start: 10-24-2022 ambulatory Jacob Dianae RPh,PharmD [facility] Start: 10-24-2022 Patient encounter procedure Jacob Dianae RPh,PharmD [facility] Start: 10-12-2022 Non-patient / Non-visit Dr. Sarah Casanova Work Phone: [facility] Start: 10-12-2022 End: 10-12-[address] Marques Casanova Work Phone: [facility] Work Phone: Start: 10-12-2022 End: 10-12-[address] Marques Casanova Work Phone: [facility]-Cardiovascula r Services Start: 10-08-2022 End: 10-08-[address] Marques Casanova Work Phone: [facility]in[facility] Start: 09-17-2022 End: 09-17-2022 Office outpatient visit 40 minutes Armando ALVAREZ Work Phone: [facility] Comment on above: Kidney replaced by t ransplant (Primary Dx); Abnormal blood chemistry; Aftercare following organ transplant; Immunosuppressed status; High risk medication use; Left leg swelling Start: 09-04-2022 End: 09-04-[address] Marques Casanova Work Phone: [facility] Work Phone: Start: 09-04-2022 End: 09-04-[address] Marques Casanova Work Phone: [facility]-Laboratory Start: 08-27-2022 End: 08-27-[address] Marques Casanova Work Phone: [facility] Work Phone: Start: 08-27-2022 End: 08-27-[address] Marques Casanova Work Phone: [facility]-Laboratory, Specimen Start: 08-23-2022 End: 08-23-[address] Marques Casanova Work Phone: [facility] Work Phone: Start: 08-23-2022 End: 08-23-[address] Marques Casanova Work Phone: [facility] Start: 07-24-2022 End: 07-24-[address] Marques Casanova Work Phone: [facility] Work Phone: Start: 07-24-2022 End: 07-24-[address] Marques Casanova Work Phone: [facility] Start: 07-18-2022 ambulatory Jacob Suarez [facility],PharmD [facility] Start: 07-18-2022 Patient encounter procedure Jacob Suarez [facility],PharmD [facility] Start: 07-18-2022 End: 07-18-[address] Marques Casanova Work Phone: [facility]-Laboratory Start: 07-18-[address] [facility] Start: 06-19-2022 End: 06-24-[address] Marques Casanova Work Phone: [facility] Start: 06-07-2022 End: 06-07-[address] Marques Casanova Work Phone: [facility] Start: 05-23-2022 End: 05-29-2022 Postop follow up visit related to original px Pierre Hung MD Work Phone: [facility] Comment on above: Kidney transplant re cipient (Primary Dx) Start: 05-22-2022 End: 05-24-[address] Marques Casanova Work Phone: [facility] Start: 05-17-2022 ambulatory Dimitry Jackson [facility] Pha rmacy Outpatient [facility] Start: 05-17-2022 Patient encounter procedure Dimitry Jackson [facility] Pharm[facility] Start: 05-03-2022 Non-patient / Non-visit Dr. Sarah Casanova Work Phone: [facility] Inpatient Physicians Start: 05-02-2022 Non-patient / Non-visit Dr. Sarah Casanova Work Phone: [facility] Start: 05-02-2022 End: 05-03-2022 Evaluation and management of inpatient Dr. Marques Casanova Work Phone: [facility]-Progressive Care Unit Start: 05-02-2022 End: 05-02-[address] Marques Casanova Work Phone: [facility]-Laboratory Start: 05-02-[address] Marques Casanova Work Phone: [facility] Start: 05-01-[address] [facility] Start: 04-24-2022 End: 04-24-[address] Marques Casanova Work Phone: [facility] Start: 04-10-2022 Non-patient / Non-visit Dr. Sarah Casanova Work Phone: [facility] Start: 04-09-2022 Non-patient / Non-visit Dr. Sarah Casanova Work Phone: [facility] Start: 04-08-2022 End: 04-10-2022 Evaluation and management of inpatient Dr. Marques Casanova [facility] Start: 04-08-2022 Non-patient / Non-visit Dr. Sarah Casanova Work Phone: [facility] Start: 04-07-2022 Non-patient / Non-visit Dr. Sarah Casanova Work Phone: [facility] Start: 04-07-2022 Evaluation and manag ement of inpatient Dr. Marques Casanova [facility] Start: 04-05-2022 End: 04-05-[address] Marques Casanova Work Phone: [facility] Endocrin[facility] Start: 04-04-2022 End: 04-04-[address] Marques Casanova Work Phone: [facility] Start: 03-19-2022 End: 04-17-2022 Office outpatient visit 25 minutes Lisa Ballesteros MD Work Phone: [facility] Comment on above: Kidney replaced by t ransplant (Primary Dx); Long-term use of immunosuppressant medication; Aftercare following organ transplant; Abnormal blood chemistry; Immunosuppressed status; High risk medication use; Other general symptoms and signs; Other complication of kidney transplant; Hyperlipidemia, unspecified hyperlipidemia type; HTN (hypertension), benign Start: 02-28-2022 End: 02-28-[address] 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 Procedures Date Procedure Procedure Detail Performing Clinician Start: 03-23-2025 [address] inorganic phosphate measurement Dr[address] Marques Casanova MD Work Phone: Start: 03-23-[address] Marques Casanova MD Work Phone: Comment on above: Target steady state trough concentration forTacrolimus varies based on type of organ transplantimmunosuppressive protocol and other patient specificfactors. Tacrolimus trough concentrations should beinterpreted in conjunction with clinical assessmentsof rejection and tolerability. Values obtained withdifferent assay methods cannot be used interchangeablydue to differences in assay methods and cross-reactivtywith metabolites, nor should correction factors beapplied. Therefore, consistent use of one assay forindividual patients is recommended.Detection Limit = 0.5 ng/mLPerformed by LC-MS/MS technology Please note reference interval changePerformed at: [address] [id number] Director: Leticia Tee MD, Phone: [phone] Start: 02-10-2025 CT of chest without contrast Dr. Marques limon MD Work Phone: Start: 01-22-2025 COVID & INFLUENZA A/B & RSV PCR, ROUTINE Jarad Champion APRN.DEMURRAGE CLERK Work Phone: Start: 11-10-2024 X-ray of chest, PA and lateral views Dr. Marques Casanova MD Work Phone: Start: 03-24-2024 Plain x-ray of pelvis and lower extremity Dr. Marques Casanova Work Phone: Start: 10-07-[address] Marques Casanova Work Phone: Start: 09-23-2023 Assay of renin Toño Joyce MD, MBBS Work Phone: Start: 08-12-[address] Marques horton Work Phone: Start: 08-12-2023 Investigation of transfusion reaction Dr. Marques Casanova Work Phone: Start: 08-12-2023 Microbial culture, routine Dr. Marques cartagena Work Phone: Start: 06-10-2023 Cardiovascular stress test using pharmacologic stress agent Dr. Marques Casanova Work Phone: Start: 02-12-2023 Dual energy X-ray absorptiometry Dr. Willy Casanova Work Phone: Start: 01-22-2023 Plain chest X-ray Dr. Marques Casanova Work Phone: Start: 09-17-2022 Creatinine other source Luisanastevebebetoshalonda Andreina ALVAREZ Work Phone: Start: 08-23-2022 MRI of lower extremity Dr. Marques Casanova Work Phone: Start: 05-02-2022 MRI of lower extremity Dr. Marques Casanova Work Phone: Start: 05-02-2022 X-ray of both feet Dr. Marques Casanova Work Phone: Start: 05-01-2022 Investigation of transfusion reaction Dr. Marques Casanova Work Phone: Start: 05-01-2022 Microbial culture, routine Dr. Marques cartagena Work Phone: Start: 04-08-[address] Marques horton Work Phone: Start: 04-08-2022 Investigation of transfusion reaction Dr. Marques Casanova Work Phone: Start: 04-08-2022 Microbial culture, routine Dr. Marques cartagena Work Phone: Start: 04-07-2022 X-ray of both feet Dr. Marques Casanova Work Phone: Start: 04-04-2022 CT of abdomen and pelvis without contrast Dr. Marques Casanova Work Phone: Start: 03-19-2022 Creatinine blood Al Carroll MD Work Phone: Start: 03-19-2022 Drug screen quantitative tacrolimus Al Carroll MD Work Phone: Start: 03-19-2022 Urnls dip stick/tablet rgnt auto w/o microscopy Al Carroll MD Work Phone: Start: 07-21-2020 History of renal transplant Renal transplant recipient 07/17/2020 Megan Canales MD Work Phone: Anaerobic microbial culture Dr. Marques Casanova Work Phone: Anaerobic microbial culture Dr. Marques Casanova Work Phone: Bacterial culture Dr. Marques palencia Work Phone: Bacterial culture Dr. Marques palencia Work Phone: History of renal transplant Kidn ey replaced by transplant Lisa Ballesteros MD Work Phone: History of renal transplant Hist ory of kidney transplant Dr. Marques Casanova Work Phone: History of renal transplant Kidn ey transplant recipient Pierre Hung MD Work Phone: History of renal transplant Kidn ey replaced by transplant Armando Jack [facility] Work Phone: History of renal transplant Kidn ey replaced by transplant Armando Jack [facility] Work Phone: History of renal transplant Kidn ey replaced by transplant Armando Jack [facility] Work Phone: History of renal transplant Sj l transplant recipient Carleen Rosario MD, MB Work Phone: History of renal transplant Kidn ey replaced by transplant Grace Reveles TRAVELING REPAIR ACCOUNTANT-DEMURRAGE CLERK Work Phone: Investigation of tra nsfusion reaction Dr. Marques Casanova Work Phone: Investigation of tra nsfusion reaction Dr. Marques Casanova Work Phone: Microbial culture, routine D buck Casanova Work Phone: Plan of Treatment Date Care Activity Detail Author Start: 11-23-2025 End: 11-23-2025 Patient encounter procedure 11/23/2025 11:30 AM EST [facility] Visit [facility] [address] [place] [address] Grace Reveles, TRAVELING REPAIR ACCOUNTANT-DEMURRAGE CLERK [address] [place] [address] [facility] Start: 08-10-2025 Thyroid stimulating hormone measurement TSH [facility] Start: 06-21-2025 ambulatory Ambulatory Facility:[facility] Start: 03-17-2025 End: 03-17-2025 Patient encounter procedure 03/17/2025 2:00 PM EDT Office [facility] [address] [place] [address] Carleen Rosario MBBS [address] [place] [address] [facility] Start: 03-01-2025 End: 03-01-2025 Patient encounter procedure [facility] Start: 02-23-2025 Creatinine measurement Serum Creatinine [facility] Start: 02-23-2025 Lipid panel LIPIDS [facility] Start: 02-07-2025 Hemoglobin A1c measurement [facility] Start: 01-12-2025 PROSTATE CANCER SCREENING DISCUSSION PROSTATE CANCER SCREENING DISCUSSION [facility] Start: 01-12-2025 Prostate specific antigen measurement Prostate Cancer Screening Discussion [facility] Start: 11-25-2024 Medicare Advantage Annual Wellness Visit Medicare Advantage Annual Wellness Visit [facility] Start: 11-13-2024 End: 11-13-2024 Patient encounter procedure 11/13/2024 11:30 AM EST Office Visit [facility] [address] [place] [address] Grace Reveles, TRAVELING REPAIR ACCOUNTANT-DEMURRAGE CLERK [address] [place] [address] [facility] Start: 10-16-2024 End: 10-16-2024 Patient encounter procedure [facility] Start: 09-23-2024 Potassium [Moles/volume] in Serum or Plasma POTASSIUM [facility] Start: 08-12-2024 Potassium [Moles/volume] in Serum or Plasma POTASSIUM [facility] Start: 07-26-2024 Covid-19 Vaccine () Covid-19 Vaccine () [facility] Start: 07-26-2024 Influenza vaccination [facility] Start: 07-03-2024 Complete blood count Hemoglobin/Hematocrit [facility] Start: 07-03-2024 Creatinine measurement Serum Creatinine [facility] Start: 07-03-2024 Hepatitis B screening Urine Albumin:Creatinine Ratio [facility] Start: 07-03-2024 Thyroid stimulating hormone measurement TSH [facility] Start: 06-17-2024 BP CONTROLLED (<130/80) BP CONTROLLED (<130/80) [facility] Start: 05-25-2024 End: 05-25-2024 Patient encounter procedure 05/25/2024 10:40 AM EDT Office Visit [facility] [address] [place] [address] [place] [address] [place] [address] [place] [address] [facility] Start: 04-08-2024 Potassium [Moles/volume] in Serum or Plasma POTASSIUM [facility] Start: 02-24-2024 End: 02-23-2025 ANTI NEUTROPHIL CYTOPLASMIC ANTIBODY [facility] Comment on above: Expected: 02/24/2024, Expires: Start: 02-24-2024 End: 02-23-2025 URINE DIPSTICK WITH REFLEX MICROSCOPY URINE DIPSTICK WITH REFLEX MICROSCOPY Fluids Routine ANCA-associated vasculitis Renal transplant recipient Expected: 02/24/2024, Expires: 02/23/2025 [facility] Comment on above: Expected: 02/24/2024, Expires: Start: 02-24-2024 End: 02-23-2025 URINE PROTEIN/CREA RATIO, RANDOM URINE PROTEIN/CREA RATIO, RANDOM Fluids Routine ANCA-associated vasculitis Renal transplant recipient Expected: 02/24/2024, Expires: 02/23/2025 [facility] Work Phone: Comment on above: Expected: 02/24/2024, Expires: Start: 02-24-2024 End: 02-24-2024 Patient encounter procedure 02/24/2024 10:40 AM EDT Office Visit [facility] [address] [place] [address] Macy Damon DO [address] [place] [address] [place], [place] [id number] [facility] Start: 02-24-2024 End: 02-24-2024 Patient encounter procedure [facility] Start: 01-03-2024 Hemoglobin A1c measurement [facility] Start: 12-31-2023 Potassium [Moles/volume] in Serum or Plasma POTASSIUM [facility] Start: 12-20-2023 End: 12-20-2023 Patient encounter procedure 12/20/2023 11:30 AM EST Office Visit [facility] [address] [place] [address] Bruno Roper MD [address] [facility] [address] [place] [address] [facility] Start: 11-25-2023 Behavioral Health Screening Behavioral Health Screening [facility] Start: 11-13-2023 End: 11-13-2023 Patient encounter procedure [facility] Start: 11-12-2023 Potassium [Moles/volume] in Serum or Plasma POTASSIUM [facility] Start: 10-21-2023 End: 10-21-2023 Patient encounter procedure 10/21/2023 11:45 AM EST Office Visit [facility] [address] [place] [address] Adwoa Evans MD [address] [id number] [facility] Start: 10-21-2023 End: 10-21-2023 Patient encounter procedure 10/21/2023 9:20 AM EST Office Visit [facility] [address] [place] [address] Macy Damon, DO [address] [place] [address] [facility] Start: 09-23-2023 End: 09-23-2024 US for transplanted kidney limited US RENAL TRANSPLANT SCAN Imaging Routine Kidney replaced by transplant Abnormal blood chemistry Aftercare following organ transplant Immunosuppressed status High risk medication use Expected: 09/23/2023, Expires: 09/23/2024 [facility] Comment on above: Expected: 09/23/2023, Expires: Start: 09-23-2023 End: 09-23-2024 US Kidney US RENAL Imaging Routine Kidney replaced by transplant Abnormal blood chemistry Aftercare following organ transplant Immunosuppressed status High risk medication use Expected: 09/23/2023, Expires: 09/23/2024 [facility] Comment on above: Expected: 09/23/2023, Expires: Start: 09-23-2023 End: 09-23-2023 Patient encounter procedure [facility] Start: 09-19-2023 End: 09-19-2024 ALLOSCREEN RECIPIENT (POST TX PRA) ALLOSCREEN RECIPIENT (POST TX PRA) Lab Routine Kidney replaced by transplant Abnormal blood chemistry Aftercare following organ transplant Immunosuppressed status High risk medication use Expected: 09/19/2023, Expires: 09/19/2024 [facility] Comment on above: Expected: 09/19/2023, Expires: Start: 09-19-2023 End: 09-19-2024 URINE PROTEIN/CREA RATIO, RANDOM URINE PROTEIN/CREA RATIO, RANDOM Fluids Routine Kidney replaced by transplant Abnormal blood chemistry Aftercare following organ transplant Immunosuppressed status High risk medication use Expected: 09/19/2023, Expires: 09/19/2024 [facility] Comment on above: Expected: 09/19/2023, Expires: Start: 09-19-2023 End: 09-19-2023 Patient encounter procedure 09/19/2023 11:00 AM EDT Office Visit [facility] [address] [place] [phone] Adwoa Evans MD [address] [place] [address] [facility] [place] Start: 09-04-2023 Potassium [Moles/volume] in Serum or Plasma POTASSIUM [facility] Start: 08-15-2023 End: 08-15-2023 Patient encounter procedure 08/15/2023 Office Visit Cardiovascular Medicine Stacie Manrique MD [address] [place] [address] [facility] Start: 07-26-2023 Covid-19 Vaccine () Covid-19 Vaccine () [facility] Start: 07-26-2023 Influenza vaccination [facility] Start: 07-18-2023 Potassium [Moles/volume] in Serum or Plasma POTASSIUM [facility] Start: 06-04-2023 End: 06-04-2023 Patient encounter procedure 06/04/2023 Office Visit Dermatology Adwoa Evans MD [address] [place] [address] [facility] [place] Start: 05-20-2023 End: 05-20-2023 Patient encounter procedure [facility] Start: 05-06-2023 End: 05-06-2023 Patient encounter procedure 05/06/2023 Office Visit Rheumatology Megan Canales MD [address] [place] [address] [address] [place] [address] [facility] Start: 05-02-2023 Potassium [Moles/volume] in Serum or Plasma POTASSIUM [facility] Start: 04-17-2023 End: 04-17-2023 Patient encounter procedure 04/17/2023 Appointment Nuclear Medicine Stacie Manrique MD [address] [address] [facility] Start: 04-17-2023 End: 04-17-2023 Patient encounter procedure 04/17/2023 Appointment Echocardiography Stacie Manrique MD [address] [address] [facility] Start: 04-15-2023 Patient referral [facility] Work Phone: Start: 04-10-2023 Potassium [Moles/volume] in Serum or Plasma POTASSIUM [facility] Start: 04-02-2023 End: 04-02-2023 Patient encounter procedure 04/02/2023 Office Visit Dermatology Adwoa Evans MD [address] [phone] [facility] Start: 03-21-2023 End: 03-21-2023 Patient encounter procedure 03/21/2023 Office Visit Cardiovascular Medicine Stacie Manrique MD [address] [address] [facility] Start: 03-21-2023 End: 03-21-2024 Echocardiography ECHOCARDIOGRAM Echocardiography Routine 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 Murmur History of heart failure Expected: 03/21/2023, Expires: 03/21/2024 [facility] Comment on above: Expected: 03/21/2023, Expires: Start: 03-21-2023 End: 03-21-2024 SPECT Heart perfusion at rest and W stress and W radionuclide IV NUC MYOCARD PERF STRESS MIBI PHARM Cardiac Nuclear Medicine Routine THOMASON (dyspnea on exertion) Expected: 03/21/2023, Expires: 03/21/2024 [facility] Comment on above: Expected: 03/21/2023, Expires: Start: 01-29-2023 End: 01-29-2023 Patient encounter procedure 01/29/2023 Office Visit Dermatology Adwoa Evans MD [address] [place] [address] [facility] Start: 01-28-2023 End: 01-28-2023 Patient encounter procedure 01/28/2023 Office Visit Rheumatology Megan Canales MD [address] [place] [address] [facility] Start: 01-22-2023 Vitamin D, 1,25-dihydroxy measurement [facility] Start: 01-22-2023 [facility] Start: 12-31-2022 Procedure [facility] Start: 11-25-2022 DEPRESSION ASSESSMENT DEPRESSION ASSESSMENT [facility] Start: 11-15-2022 End: 11-15-2022 Patient encounter procedure 11/15/2022 Office Visit Dermatology Adwoa Evans MD [address] [place] [phone] [facility] Start: 09-18-2022 Lipid panel LIPIDS [facility] Start: 09-18-2022 LIPIDS LIPIDS [facility] Start: 09-17-2022 End: 09-17-2023 US.doppler Lower extremity vein - left VASC DUPLEX VENOUS EXTREMITY LOWER LEFT Imaging Routine Kidney replaced by transplant Abnormal blood chemistry Aftercare following organ transplant Immunosuppressed status High risk medication use Left leg swelling Expected: 09/17/2022, Expires: 09/17/2023 [facility] Comment on above: Expected: 09/17/2022, Expires: Start: 09-17-2022 End: 09-17-2022 Patient encounter procedure [facility] Start: 09-14-2022 End: 09-14-2023 ALLOSCREEN RECIPIENT (POST TX PRA) ALLOSCREEN RECIPIENT (POST TX PRA) Lab Routine Kidney replaced by transplant Abnormal blood chemistry Aftercare following organ transplant Immunosuppressed status High risk medication use Expected: 09/14/2022, Expires: 09/14/2023 [facility] Comment on above: Expected: 09/14/2022, Expires: Start: 08-22-2022 Prostate specific antigen measurement PROSTATE CANCER SCREENING DISCUSSION [facility] Start: 08-22-2022 Thyroid stimulating hormone measurement TSH [facility] Start: 07-26-2022 Influenza vaccination [facility] Start: 07-09-2022 End: 07-09-2022 Patient encounter procedure 07/09/2022 Office Visit Rheumatology Megan Canales MD [address] [address] [facility] Start: 07-09-2022 End: 07-09-2022 Telemedicine consultation with patient 07/09/2022 Telemedicine Rheumatology Megan Canales MD [address] [address] [facility] Start: 06-20-2022 Potassium [Moles/volume] in Serum or Plasma POTASSIUM [facility] Start: 06-12-2022 LIPIDS LIPIDS [facility] Start: 2022 RSV Vaccine (1 - 1-dose 60+ series) RSV Vaccine (1 - 1-dose 60+ series) [facility] Start: 2022 RSV Vaccine (1 - Risk 60-74 years 1-dose series) RSV Vaccine (1 - Risk 60-74 years 1-dose series) [facility] Start: 05-23-2022 End: 05-23-2022 Patient encounter procedure 05/23/2022 Office Visit Transplant Surgery Pierre Hung MD [address] [place] [address] [facility] Start: 05-03-2022 Patient discharge [facility] Work Phone: Start: 05-02-2022 Following clinical pathway protocol [facility] Work Phone: Start: 05-02-2022 Ambulation without limitation [facility] Work Phone: Start: 05-02-2022 Assessment of risk of venous thromboembolism [facility] Work Phone: Start: 05-02-2022 Care regimes management [facility] Work Phone: Start: 05-02-2022 Insertion of catheter into peripheral vein [facility] Work Phone: Start: 05-02-2022 Notification of physician [facility] Work Phone: Start: 05-02-2022 Providing care according to standard [facility] Work Phone: Start: 05-02-2022 [facility] Work Phone: Start: 05-02-2022 Admission procedure [facility] Work Phone: Start: 05-01-2022 Anaerobic microbial culture Anaerobic Culture [facility] Work Phone: Start: 04-10-2022 Patient discharge [facility] Work Phone: Start: 04-09-2022 Consultation [facility] Work Phone: Start: 04-09-2022 Provision of activity privileges [facility] Work Phone: Start: 04-09-2022 Wound care [facility] Work Phone: Start: 04-08-2022 Admission procedure [facility] Work Phone: Start: 04-08-2022 [facility] Work Phone: Start: 04-08-2022 Care regimes management [facility] Work Phone: Start: 04-08-2022 Notification of physician [facility] Work Phone: Start: 04-08-2022 [facility] Work Phone: Start: 04-07-2022 Following clinical pathway protocol [facility] Work Phone: Start: 04-07-2022 Assessment of risk of venous thromboembolism [facility] Work Phone: Start: 04-07-2022 Consultation for treatment [facility] Work Phone: Start: 04-07-2022 Insertion of catheter into peripheral vein [facility] Work Phone: Start: 04-07-2022 Providing care according to standard [facility] Work Phone: Start: 04-07-2022 Referral to oyster bed worker [facility] Work Phone: Start: 04-07-2022 [facility] Work Phone: Start: 04-07-2022 Admission procedure [facility] Work Phone: Start: 04-07-2022 Patient referral to dietitian [facility] Work Phone: Start: 03-19-2022 End: 03-19-2023 CT Abdomen and Pelvis WO contrast CT ABDOMEN/PELVIS WITHOUT CONTRAST Imaging Routine Kidney replaced by transplant Long-term use of immunosuppressant medication Aftercare following organ transplant Abnormal blood chemistry Immunosuppressed status High risk medication use Other general symptoms and signs Expected: 03/19/2022, Expires: 03/19/2023 [facility] Work Phone: Comment on above: Expected: 03/19/2022, Expires: Start: 03-19-2022 Hemoglobin A1c measurement HBA1C TEST [facility] Start: 12-13-2021 Hemoglobin A1c measurement HBA1C TEST [facility] Start: 11-20-2021 COVID-19 VACCINE (5 - Pfizer risk series) COVID-19 VACCINE (5 - Pfizer risk series) [facility] Start: 11-12-2021 Microalbumin measurement, urine, quantitative URINE MICROALBUMIN TEST [facility] Start: 11-12-2021 Urine screening for protein URINE MICROALBUMIN TEST [facility] Start: 09-18-2021 End: 09-18-2021 Patient encounter procedure 09/18/2021 Office Visit Rheumatology Megan Canales MD [address] [place] [address] [facility] Start: 09-18-2021 End: 09-18-2021 Patient encounter procedure 09/18/2021 Office Visit Transplant Surgery Lisa Ballesteros MD [address] [place] [address] [facility] Start: 09-16-2021 COVID-19 VACCINE (3 - Pfizer risk series) COVID-19 VACCINE (3 - Pfizer risk series) [facility] Start: 08-11-2021 Thyroid stimulating hormone measurement TSH [facility] Start: 07-26-2021 Influenza vaccination INFLUENZA VACCINE (#1) [facility] Start: 01-12-2021 Prostate specific antigen measurement PROSTATE CANCER SCREENING DISCUSSION [facility] Start: 07-12-2020 Hemoglobin A1c/Hemoglobin.total in Blood HBA1C [facility] Start: 07-06-2020 Hepatitis B vaccination HEP B VACCINE (2 of 3 - 19+ 3-dose series) [facility] Start: 06-26-2020 Pneumococcal vaccination Pneumococcal Vaccine (2 of 2 - PCV) [facility] Start: 06-26-2020 PNEUMOCOCCAL VACCINE SERIES (2 - PCV) PNEUMOCOCCAL VACCINE SERIES (2 - PCV) [facility] Start: 06-26-2020 PNEUMOCOCCAL VACCINE SERIES (2 of 2 - PCV) PNEUMOCOCCAL VACCINE SERIES (2 of 2 - PCV) [facility] Start: 06-26-2020 Pneumococcal Vaccine: 50+ (2 of 2 - PCV) Pneumococcal Vaccine: 50+ (2 of 2 - PCV) [facility] Start: 09-08-2019 HEMOGLOBIN/HEMATOCRIT HEMOGLOBIN/HEMATOCRIT [facility] Start: 09-08-2019 SERUM CREATININE SERUM CREATININE [facility] Start: 06-24-2019 Colonoscopy COLORECTAL CANCER SCREENING DISCUSSION [facility] Start: 06-24-2019 Screening for malignant neoplasm of colon COLORECTAL CANCER SCREENING DISCUSSION [facility] Start: 07-03-2017 End: 07-03-2017 Appointment Appointment [facility] Work Phone: Start: 2012 Zoster vaccine hzv live for subcutaneous use ZOSTER (SHINGLES) VACCINE (1 of 2) [facility] Start: 2007 COLOGUARD (FIT-DNA) COLOGUARD (FIT-DNA) [facility] Start: 2007 Colonoscopy COLONOSCOPY [facility] Start: 2007 COLORECTAL CANCER SCREENING COLORECTAL CANCER SCREENING [facility] Start: [address] COLONOGRAPHY [facility] Start: 2007 FECAL OCCULT BLOOD FECAL OCCULT BLOOD [facility] Start: 2007 Screening for malignant neoplasm of colon [facility] Start: 2007 SIGMOIDOSCOPY SIGMOIDOSCOPY [facility] Start: 1981 SHINGRIX VACCINE (1 of 2) SHINGRIX VACCINE (1 of 2) [facility] Start: 1981 Third diphtheria, tetanus and acellular pertussis (DTaP) vaccination TDAP (ADULT) [facility] Start: 1981 Urine microalbumin profile [facility] Start: 1981 Zoster vaccine hzv live for subcutaneous use ZOSTER (SHINGLES) VACCINE (1 of 2) [facility] Start: 1980 ANNUAL PCP TEAM CHRONIC DISEASE VISIT ANNUAL PCP TEAM CHRONIC DISEASE VISIT [facility] Start: 1980 Anxiety Screening Anxiety Screening [facility] Start: 1980 BP Controlled (<130/80) BP Controlled (<130/80) [facility] Start: 1980 Depression Screening Depression Screening [facility] Start: 1980 Hepatitis B surface antibody level LDL CHOLESTEROL [facility] Start: 1980 Tetanus vaccination TETANUS [facility] Start: 1974 COVID-19 VACCINE (1) COVID-19 VACCINE (1) [facility] Start: 1972 3 comp foot exam completed DIABETIC FOOT EXAM [facility] Start: 1972 Diabetic foot examination Diabetic Foot Exam [facility] Start: 1972 Glaucoma screening Dilated Retinal Exam [facility] Start: 1972 Hepatitis C antibody, confirmatory test DILATED RETINAL EXAM [facility] Start: 1968 PNEUMOCOCCAL (1 - PCV) PNEUMOCOCCAL (1 - PCV) [facility] Start: 1968 PNEUMOCOCCAL VACCINE SERIES (1 - PCV) PNEUMOCOCCAL VACCINE SERIES (1 - PCV) [facility] Start: 1967 COVID-19 VACCINE (#1) COVID-19 VACCINE (#1) [facility] Start: 1962 Diabetic foot examination [facility] Start: 1962 Diabetic retinal eye exam [facility] Start: 1962 Glaucoma screening EYE EXAM [facility] Start: 1962 Tetanus vaccination TETANUS [facility] ALLOSCREEN RECIPIENT (POST TX PRA) ALLOSCREEN RECIPIENT (POST TX PRA) Lab Routine Kidney replaced by transplant Abnormal blood chemistry Aftercare following organ transplant Immunosuppressed status High risk medication use 09/17/2022 2:39 PM EDT [facility] ALLOSCREEN RECIPIENT (POST TX PRA) ALLOSCREEN RECIPIENT (POST TX PRA) Lab Routine Kidney replaced by transplant Abnormal blood chemistry Aftercare following organ transplant Immunosuppressed status High risk medication use 09/23/2023 2:58 PM EDT [facility]: Bacteria identified in Unspecified specimen by Anaerobe culture [facility] Work Phone: Bacterial culture Body Fluid Culture [facility] Work Phone: End: 11-16-2023 CT Abdomen and Pelvis WO contrast [facility] Comment on above: 1 Occurrences starting 11/16/2023 until 11/16/2023 End: 11-16-2023 CT Chest WO contrast [facility] Work Phone: Comment on above: 1 Occurrences starting 11/16/2023 until 11/16/2023 Destruction benign lesions 15/> UT DESTRUC BENIGN LESION, 15 OR MORE UT Charge Routine Other viral warts Disturbance of skin sensation Ordered: 09/19/2023 [facility] Comment on above: Ordered: 09/19/2023 Destruction benign lesions 15/> UT DESTRUC BENIGN LESION, 15 OR MORE UT Charge Routine Verruca plana Other viral warts Disturbance of skin sensation Ordered: 10/21/2023 [facility] Comment on above: Ordered: 10/21/2023 Ecg routine ecg w/le ast 12 lds w/i&r UT ELECTROCARDIOGRAM, COMPLETE UT - OFFICE PERFORMED Routine 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 Ordered: 03/21/2023 [facility] Comment on above: Ordered: 03/21/2023 INFLUENZA A&B MOLECU LAR (POC) INFLUENZA A&B MOLECULAR (POC) Microbiology Routine Fever, unspecified fever cause Ordered: 01/22/2025 [facility] Work Phone: Comment on above: Ordered: 01/22/2025 Injection intralesio nal up to & includ 7 lesions UT INJECTION, INTRALESIONAL, UP TO AND INCLUDING 7 LESIONS UT Charge Routine Other viral warts Disturbance of skin sensation Verruca plana Ordered: 09/19/2023 [facility] Comment on above: Ordered: 09/19/2023 Injection intralesio nal up to & includ 7 lesions UT INJECTION, INTRALESIONAL, UP TO AND INCLUDING 7 LESIONS UT Charge Routine Verruca plana Other viral warts Disturbance of skin sensation Ordered: 10/21/2023 [facility] Comment on above: Ordered: 10/21/2023 NM Heart Views W str ess and W radionuclide IV [facility] Parathyroid hormone measurement [facility] Patient referral [facility] Work Phone: Polysomnogram POLYSOMNOGRAM (P SG) Procedures Routine DAVID (obstructive sleep apnea) Ordered: 04/02/2024 [facility] Work Phone: Comment on above: Ordered: 04/02/2024 SURG PATH REQUEST SURG PATH REQU EST Surg Path Routine Neoplasm of uncertain behavior of skin 11/15/2022 3:16 PM EST [facility] T4 free measurement [facility] Work Phone: T4 free measurement [facility] Tangential biopsy sk in single lesion UT TANGENTIAL BIOPSY SKIN SINGLE LESION UT Charge Routine Rash and nonspecific skin eruption Ordered: 11/15/2022 [facility] Comment on above: Ordered: 11/15/2022 Thyroid stimulating hormone measurement [facility] Work Phone: Thyroid stimulating hormone measurement [facility] Vitamin D, 25-hydrox y measurement [facility] End: 01-23-2025 XR Chest PA and Lateral XR CHEST 2V FRONTAL/LAT Radiology STAT Fever, unspecified fever cause Acute cough 1 Occurrences starting 01/22/2025 until 01/23/2025 [facility] Comment on above: 1 Occurrences starting 01/22/2025 until 01/23/2025 [facility] Work Phone: Immunizations Immunization Date Immunization Notes Care Provider Fa [facility] 11-26-2024 influenza, injectabl e, madin christian canine kidney, preservative free Dr. Marques Casanova MD Work Phone: [facility] 09-25-2021 Covid (Pfizer) Dr. Marques Gannon nner Work Phone: [facility] 08-19-2021 COVID-19 vaccine, MRNA, Pfizer, 0.3 ML Dimitry [employer] [facility] 06-24-2021 COVID-19 vaccine, MRNA, Pfizer, 0.3 ML Dimitry [facility] 05-25-2021 Covid (Pfizer) Dr. Marques cartagena Work Phone: [facility] 08-21-2019 influenza virus vaccine, unspecified formulation Al Carroll MD Work Phone: [facility] 01-13-2019 influenza virus vaccine, unspecified formulation Shell Kruger APRN.CNP Work Phone: [facility] Payers Date Payer Category Payer Self-pay [id number] 2023 Medicare (Managed Care) [employer] G [employer] Member Subscriber Plan / Payer (Effective 2023-Present) Name: Robert Mccrary Relation to Subscriber: Self Name: Robert Mccrary Payer ID: [id number] ([facility]) Type: HMO Address: [place] [id number] 2020 Medicare MEDICARE HU[employer] HMO PPO MEDICARE [employer] HMO PPO [id number] 2020-Present [address] [place] [address] [id number] 2020 Medicare [id number]. [id number] 2020 Medicare [id number] 2006 Unknown [id number] 1960 Unknown [id number] 2.0.1.629433.3.579. 2.594 1960 Unknown [id number] 2.0.1.686946.3.579. 2.594 1960 Unknown [id number] .0.1.576444.3.579. 2.594 Medicare [id number] Medicare [id number] Unknown [id number] 2.840.1.634443.3.579. 2.462 Unknown [id number] 2.16.840.1.476123.3.579. 2.462 Unknown [id number] 2.16.840.1.062383.3.579. 2.462 Unknown [id number] 2.16.840.1.328415.3.579. 2.462 Unknown [id number] 2.16.840.1.067065.3.579. 2.462 Unknown [id number] 2.16.840.1.158846.3.579. 2.462 Unknown [id number] 2.16.840.1.580720.3.579. 2.462 Unknown [id number] 2.840.1.471754.3.579. 2.462 Unknown [id number] 2.840.1.915874.3.579. 2.462 Unknown [id number] 2.840.1.173139.3.579. 2.462 Unknown [id number] 2.840.1.607174.3.579. 2.462 Unknown [id number] 2.840.1.895176.3.579. 2.462 Unknown [id number] 2.16.840.1.960786.3.579. 2.462 Unknown [id number] 2.16840.1.693557.3.579. 2.462 Unknown [id number] 2.840.1.022148.3.579. 2.462 Unknown [id number] 2.16840.1.553819.3.579. 2.462 Unknown [id number] 2.16.840.1.649925.3.579. 2.462 Unknown [id number] 2.16.840.1.049414.3.579. 2.462 Unknown [id number] 2.16.840.1.333813.3.579. 2.462 Unknown [id number] 2.16840.1.622489.3.579. 2.462 Unknown [id number] 2.16.840.1.573431.3.579. 2.462 Unknown [id number] 2.16.840.1.469356.3.579. 2.462 Unknown [id number] 2.16.840.1.092412.3.579. 2.462 Unknown [id number] 2.840.1.053536.3.579. 2.462 Social History Date Type Detail Facility Start: 10-15-2020 End: 07-22-2023 Tobacco smoking status UTIS Unknown if ever smoked [facility] Start: 12-23-2018 None [facility] Start: 01-19-2019 Spouse/ Significant Other [facility] Start: 12-24-2019 Chew [facility] Start: 1960 Sex Assigned At Male [facility] Start: 02-02-2019 End: 02-20-2025 Tobacco smoking status NHIS Never smoker [facility] Start: 02-02-2019 End: 09-17-2022 Tobacco use and exposure Former user [facility] End: 12-05-2018 History of tobacco use Snuff User [facility] Start: 02-06-2021 End: 05-25-2024 Alcohol intake Lifetime non-drinker (finding) [facility] Start: 07-17-2020 History SDOH Alcohol Frequency 1 [facility] Start: 02-06-2021 End: 09-17-2022 Tobacco Comment 02/06/21 [facility] Start: 1960 Sex Assigned At Not on file [facility] Exposure to SARS-CoV -2 (event) Not sure [facility] Start: 02-16-2022 End: 01-29-2023 Exposure to SARS-CoV-2 (event) Unable to assess [facility] Start: 07-17-2020 End: 06-17-2023 History of Social function [facility] Start: 07-17-2020 End: 06-17-2023 Alcohol Use Disorder Identification Test - Consumption [AUDIT-C] [facility] How often to you hav e a drink containing alcohol? Never [facility] Average Number of Drinks Not on file [facility] Start: 12-25-2018 Gender identity Identifies as male gender (finding) [facility] Start: 06-17-2023 Tobacco use and exposure User of smokeless tobacco [facility] Start: 06-17-2023 End: 01-22-2025 Alcohol intake Current non-drinker of alcohol (finding) [facility] Start: 11-12-2024 Sexual orientation Choose not to disclose [facility] Start: 11-26-2024 Tobacco smoking status NHIS Ex-smoker (finding) [facility] Start: 02-17-2025 Sex Male (finding) [facility] Medical Equipment Procedure Code Equipment Code Equipment Origin al Text Equipment Identifier Dates INSULIN PEN NEEDLE [id number] , [id number], [id number] Start: 11-17-2020 CATHETER, CVD PLNDRME 19CM FDA Start: 01-14-2018 SUTURE,LIGA CLIP MED LT200 FDA Start: 05-15-2018 SUTURE,LIGA CLIP MED LT200 FDA Start: 05-15-2018 SUTURE,LIGA CLIP SM LT-100 FDA Start: 05-15-2018 SUTURE,LIGA CLIP SM LT-100 FDA Start: 05-15-2018 SUTURE,LIGA CLIP SM LT-100 FDA Start: 05-15-2018 SUTURE,LIGA CLIP SM LT-100 FDA Start: 05-15-2018 CATHETER, CVD PLNDRME 19CM FDA Start: 10-31-2018 SUTURE,LIGA CLIP MED LT200 FDA Start: 10-31-2018 SUTURE,LIGA CLIP MED LT200 FDA Start: 10-31-2018 SUTURE,LIGA CLIP SM LT-100 FDA Start: 10-31-2018 SUTURE,LIGA CLIP SM LT-100 FDA Start: 10-31-2018 SUTURE,LIGA CLIP SM LT-100 FDA Start: 10-31-2018 SUTURE,LIGA CLIP SM LT-100 FDA Start: 10-31-2018 SUTURE,LIGA CLIP SM LT-100 FDA Start: 10-31-2018 SUTURE,LIGA CLIP MED LT200 FDA Start: 11-06-2018 SUTURE,LIGA CLIP MED LT200 FDA Start: 11-06-2018 SUTURE,LIGA CLIP SM LT-100 FDA Start: 11-06-2018 SUTURE,LIGA CLIP SM LT-100 FDA Start: 11-06-2018 SUTURE,LIGA CLIP SM LT-100 FDA Start: 11-06-2018 SUTURE,LIGA CLIP SM LT-100 FDA Start: 11-06-2018 SUTURE,LIGA CLIP MED LT200 FDA Start: 05-29-2019 SUTURE,LIGA CLIP MED LT200 FDA Start: 05-29-2019 SUTURE,LIGA CLIP MED LT200 FDA Start: 05-29-2019 SUTURE,LIGA CLIP SM LT-100 FDA Start: 05-29-2019 SUTURE,LIGA CLIP SM LT-100 FDA Start: 05-29-2019 SUTURE,LIGA CLIP SM LT-100 FDA Start: 05-29-2019 SUTURE,LIGA CLIP SM LT-100 FDA Start: 05-29-2019 CATHETER, CVD PLNDRME 19CM FDA Start: 01-14-2018 SUTURE,LIGA CLIP MED LT200 FDA Start: 05-15-2018 SUTURE,LIGA CLIP MED LT200 FDA Start: 05-15-2018 SUTURE,LIGA CLIP SM LT-100 FDA Start: 05-15-2018 SUTURE,LIGA CLIP SM LT-100 FDA Start: 05-15-2018 SUTURE,LIGA CLIP SM LT-100 FDA Start: 05-15-2018 SUTURE,LIGA CLIP SM LT-100 FDA Start: 05-15-2018 CATHETER, CVD PLNDRME 19CM FDA Start: 10-31-2018 SUTURE,LIGA CLIP MED LT200 FDA Start: 10-31-2018 SUTURE,LIGA CLIP MED LT200 FDA Start: 10-31-2018 SUTURE,LIGA CLIP SM LT-100 FDA Start: 10-31-2018 SUTURE,LIGA CLIP SM LT-100 FDA Start: 10-31-2018 SUTURE,LIGA CLIP SM LT-100 FDA Start: 10-31-2018 SUTURE,LIGA CLIP SM LT-100 FDA Start: 10-31-2018 SUTURE,LIGA CLIP SM LT-100 FDA Start: 10-31-2018 SUTURE,LIGA CLIP MED LT200 FDA Start: 11-06-2018 SUTURE,LIGA CLIP MED LT200 FDA Start: 11-06-2018 SUTURE,LIGA CLIP SM LT-100 FDA Start: 11-06-2018 SUTURE,LIGA CLIP SM LT-100 FDA Start: 11-06-2018 SUTURE,LIGA CLIP SM LT-100 FDA Start: 11-06-2018 SUTURE,LIGA CLIP SM LT-100 FDA Start: 11-06-2018 SUTURE,LIGA CLIP MED LT200 FDA Start: 05-29-2019 SUTURE,LIGA CLIP MED LT200 FDA Start: 05-29-2019 SUTURE,LIGA CLIP MED LT200 FDA Start: 05-29-2019 SUTURE,LIGA CLIP SM LT-100 FDA Start: 05-29-2019 SUTURE,LIGA CLIP SM LT-100 FDA Start: 05-29-2019 SUTURE,LIGA CLIP SM LT-100 FDA Start: 05-29-2019 SUTURE,LIGA CLIP SM LT-100 FDA Start: 05-29-2019 Blood Sugar Diagnostic (True Metrix Glucose Test Strip) strip Start: 03-12-2022 CATHETER, CVD PLNDRME 19CM FDA Start: 01-14-2018 SUTURE,LIGA CLIP MED LT200 FDA Start: 05-15-2018 SUTURE,LIGA CLIP MED LT200 FDA Start: 05-15-2018 SUTURE,LIGA CLIP SM LT-100 FDA Start: 05-15-2018 SUTURE,LIGA CLIP SM LT-100 FDA Start: 05-15-2018 SUTURE,LIGA CLIP SM LT-100 FDA Start: 05-15-2018 SUTURE,LIGA CLIP SM LT-100 FDA Start: 05-15-2018 CATHETER, CVD PLNDRME 19CM FDA Start: 10-31-2018 SUTURE,LIGA CLIP MED LT200 FDA Start: 10-31-2018 SUTURE,LIGA CLIP MED LT200 FDA Start: 10-31-2018 SUTURE,LIGA CLIP SM LT-100 FDA Start: 10-31-2018 SUTURE,LIGA CLIP SM LT-100 FDA Start: 10-31-2018 SUTURE,LIGA CLIP SM LT-100 FDA Start: 10-31-2018 SUTURE,LIGA CLIP SM LT-100 FDA Start: 10-31-2018 SUTURE,LIGA CLIP SM LT-100 FDA Start: 10-31-2018 SUTURE,LIGA CLIP MED LT200 FDA Start: 11-06-2018 SUTURE,LIGA CLIP MED LT200 FDA Start: 11-06-2018 SUTURE,LIGA CLIP SM LT-100 FDA Start: 11-06-2018 SUTURE,LIGA CLIP SM LT-100 FDA Start: 11-06-2018 SUTURE,LIGA CLIP SM LT-100 FDA Start: 11-06-2018 SUTURE,LIGA CLIP SM LT-100 FDA Start: 11-06-2018 SUTURE,LIGA CLIP MED LT200 FDA Start: 05-29-2019 SUTURE,LIGA CLIP MED LT200 FDA Start: 05-29-2019 SUTURE,LIGA CLIP MED LT200 FDA Start: 05-29-2019 SUTURE,LIGA CLIP SM LT-100 FDA Start: 05-29-2019 SUTURE,LIGA CLIP SM LT-100 FDA Start: 05-29-2019 SUTURE,LIGA CLIP SM LT-100 FDA Start: 05-29-2019 SUTURE,LIGA CLIP SM LT-100 FDA Start: 05-29-2019 Blood Sugar Diagnostic (True Metrix Glucose Test Strip) strip Start: 03-12-2022 CATHETER, CVD PLNDRME 19CM FDA Start: 01-14-2018 SUTURE,LIGA CLIP MED LT200 FDA Start: 05-15-2018 SUTURE,LIGA CLIP MED LT200 FDA Start: 05-15-2018 SUTURE,LIGA CLIP SM LT-100 FDA Start: 05-15-2018 SUTURE,LIGA CLIP SM LT-100 FDA Start: 05-15-2018 SUTURE,LIGA CLIP SM LT-100 FDA Start: 05-15-2018 SUTURE,LIGA CLIP SM LT-100 FDA Start: 05-15-2018 CATHETER, CVD PLNDRME 19CM FDA Start: 10-31-2018 SUTURE,LIGA CLIP MED LT200 FDA Start: 10-31-2018 SUTURE,LIGA CLIP MED LT200 FDA Start: 10-31-2018 SUTURE,LIGA CLIP SM LT-100 FDA Start: 10-31-2018 SUTURE,LIGA CLIP SM LT-100 FDA Start: 10-31-2018 SUTURE,LIGA CLIP SM LT-100 FDA Start: 10-31-2018 SUTURE,LIGA CLIP SM LT-100 FDA Start: 10-31-2018 SUTURE,LIGA CLIP SM LT-100 FDA Start: 10-31-2018 SUTURE,LIGA CLIP MED LT200 FDA Start: 11-06-2018 SUTURE,LIGA CLIP MED LT200 FDA Start: 11-06-2018 SUTURE,LIGA CLIP SM LT-100 FDA Start: 11-06-2018 SUTURE,LIGA CLIP SM LT-100 FDA Start: 11-06-2018 SUTURE,LIGA CLIP SM LT-100 FDA Start: 11-06-2018 SUTURE,LIGA CLIP SM LT-100 FDA Start: 11-06-2018 SUTURE,LIGA CLIP MED LT200 FDA Start: 05-29-2019 SUTURE,LIGA CLIP MED LT200 FDA Start: 05-29-2019 SUTURE,LIGA CLIP MED LT200 FDA Start: 05-29-2019 SUTURE,LIGA CLIP SM LT-100 FDA Start: 05-29-2019 SUTURE,LIGA CLIP SM LT-100 FDA Start: 05-29-2019 SUTURE,LIGA CLIP SM LT-100 FDA Start: 05-29-2019 SUTURE,LIGA CLIP SM LT-100 FDA Start: 05-29-2019 Blood Sugar Diagnostic (True Metrix Glucose Test Strip) strip Start: 03-12-2022 CATHETER, CVD PLNDRME 19CM FDA Start: 01-14-2018 SUTURE,LIGA CLIP MED LT200 FDA Start: 05-15-2018 SUTURE,LIGA CLIP MED LT200 FDA Start: 05-15-2018 SUTURE,LIGA CLIP SM LT-100 FDA Start: 05-15-2018 SUTURE,LIGA CLIP SM LT-100 FDA Start: 05-15-2018 SUTURE,LIGA CLIP SM LT-100 FDA Start: 05-15-2018 SUTURE,LIGA CLIP SM LT-100 FDA Start: 05-15-2018 CATHETER, CVD PLNDRME 19CM FDA Start: 10-31-2018 SUTURE,LIGA CLIP MED LT200 FDA Start: 10-31-2018 SUTURE,LIGA CLIP MED LT200 FDA Start: 10-31-2018 SUTURE,LIGA CLIP SM LT-100 FDA Start: 10-31-2018 SUTURE,LIGA CLIP SM LT-100 FDA Start: 10-31-2018 SUTURE,LIGA CLIP SM LT-100 FDA Start: 10-31-2018 SUTURE,LIGA CLIP SM LT-100 FDA Start: 10-31-2018 SUTURE,LIGA CLIP SM LT-100 FDA Start: 10-31-2018 SUTURE,LIGA CLIP MED LT200 FDA Start: 11-06-2018 SUTURE,LIGA CLIP MED LT200 FDA Start: 11-06-2018 SUTURE,LIGA CLIP SM LT-100 FDA Start: 11-06-2018 SUTURE,LIGA CLIP SM LT-100 FDA Start: 11-06-2018 SUTURE,LIGA CLIP SM LT-100 FDA Start: 11-06-2018 SUTURE,LIGA CLIP SM LT-100 FDA Start: 11-06-2018 SUTURE,LIGA CLIP MED LT200 FDA Start: 05-29-2019 SUTURE,LIGA CLIP MED LT200 FDA Start: 05-29-2019 SUTURE,LIGA CLIP MED LT200 FDA Start: 05-29-2019 SUTURE,LIGA CLIP SM LT-100 FDA Start: 05-29-2019 SUTURE,LIGA CLIP SM LT-100 FDA Start: 05-29-2019 SUTURE,LIGA CLIP SM LT-100 FDA Start: 05-29-2019 SUTURE,LIGA CLIP SM LT-100 FDA Start: 05-29-2019 Blood Sugar Diagnostic (True Metrix Glucose Test Strip) strip Start: 05-14-2022 Blood Sugar Diagnostic (True Metrix Glucose Test Strip) strip Start: 03-12-2022 End: 05-14-2022 CATHETER, CVD PLNDRME 19CM FDA Start: 01-14-2018 SUTURE,LIGA CLIP MED LT200 FDA Start: 05-15-2018 SUTURE,LIGA CLIP MED LT200 FDA Start: 05-15-2018 SUTURE,LIGA CLIP SM LT-100 FDA Start: 05-15-2018 SUTURE,LIGA CLIP SM LT-100 FDA Start: 05-15-2018 SUTURE,LIGA CLIP SM LT-100 FDA Start: 05-15-2018 SUTURE,LIGA CLIP SM LT-100 FDA Start: 05-15-2018 CATHETER, CVD PLNDRME 19CM FDA Start: 10-31-2018 SUTURE,LIGA CLIP MED LT200 FDA Start: 10-31-2018 SUTURE,LIGA CLIP MED LT200 FDA Start: 10-31-2018 SUTURE,LIGA CLIP SM LT-100 FDA Start: 10-31-2018 SUTURE,LIGA CLIP SM LT-100 FDA Start: 10-31-2018 SUTURE,LIGA CLIP SM LT-100 FDA Start: 10-31-2018 SUTURE,LIGA CLIP SM LT-100 FDA Start: 10-31-2018 SUTURE,LIGA CLIP SM LT-100 FDA Start: 10-31-2018 SUTURE,LIGA CLIP MED LT200 FDA Start: 11-06-2018 SUTURE,LIGA CLIP MED LT200 FDA Start: 11-06-2018 SUTURE,LIGA CLIP SM LT-100 FDA Start: 11-06-2018 SUTURE,LIGA CLIP SM LT-100 FDA Start: 11-06-2018 SUTURE,LIGA CLIP SM LT-100 FDA Start: 11-06-2018 SUTURE,LIGA CLIP SM LT-100 FDA Start: 11-06-2018 SUTURE,LIGA CLIP MED LT200 FDA Start: 05-29-2019 SUTURE,LIGA CLIP MED LT200 FDA Start: 05-29-2019 SUTURE,LIGA CLIP MED LT200 FDA Start: 05-29-2019 SUTURE,LIGA CLIP SM LT-100 FDA Start: 05-29-2019 SUTURE,LIGA CLIP SM LT-100 FDA Start: 05-29-2019 SUTURE,LIGA CLIP SM LT-100 FDA Start: 05-29-2019 SUTURE,LIGA CLIP SM LT-100 FDA Start: 05-29-2019 Blood Sugar Diagnostic (True Metrix Glucose Test Strip) strip Start: 05-14-2022 Blood Sugar Diagnostic (True Metrix Glucose Test Strip) strip Start: 03-12-2022 End: 05-14-2022 CATHETER, CVD PLNDRME 19CM FDA Start: 01-14-2018 SUTURE,LIGA CLIP MED LT200 FDA Start: 05-15-2018 SUTURE,LIGA CLIP MED LT200 FDA Start: 05-15-2018 SUTURE,LIGA CLIP SM LT-100 FDA Start: 05-15-2018 SUTURE,LIGA CLIP SM LT-100 FDA Start: 05-15-2018 SUTURE,LIGA CLIP SM LT-100 FDA Start: 05-15-2018 SUTURE,LIGA CLIP SM LT-100 FDA Start: 05-15-2018 CATHETER, CVD PLNDRME 19CM FDA Start: 10-31-2018 SUTURE,LIGA CLIP MED LT200 FDA Start: 10-31-2018 SUTURE,LIGA CLIP MED LT200 FDA Start: 10-31-2018 SUTURE,LIGA CLIP SM LT-100 FDA Start: 10-31-2018 SUTURE,LIGA CLIP SM LT-100 FDA Start: 10-31-2018 SUTURE,LIGA CLIP SM LT-100 FDA Start: 10-31-2018 SUTURE,LIGA CLIP SM LT-100 FDA Start: 10-31-2018 SUTURE,LIGA CLIP SM LT-100 FDA Start: 10-31-2018 SUTURE,LIGA CLIP MED LT200 FDA Start: 11-06-2018 SUTURE,LIGA CLIP MED LT200 FDA Start: 11-06-2018 SUTURE,LIGA CLIP SM LT-100 FDA Start: 11-06-2018 SUTURE,LIGA CLIP SM LT-100 FDA Start: 11-06-2018 SUTURE,LIGA CLIP SM LT-100 FDA Start: 11-06-2018 SUTURE,LIGA CLIP SM LT-100 FDA Start: 11-06-2018 SUTURE,LIGA CLIP MED LT200 FDA Start: 05-29-2019 SUTURE,LIGA CLIP MED LT200 FDA Start: 05-29-2019 SUTURE,LIGA CLIP MED LT200 FDA Start: 05-29-2019 SUTURE,LIGA CLIP SM LT-100 FDA Start: 05-29-2019 SUTURE,LIGA CLIP SM LT-100 FDA Start: 05-29-2019 SUTURE,LIGA CLIP SM LT-100 FDA Start: 05-29-2019 SUTURE,LIGA CLIP SM LT-100 FDA Start: 05-29-2019 Blood Sugar Diagnostic (True Metrix Glucose Test Strip) strip Start: 05-14-2022 Blood Sugar Diagnostic (True Metrix Glucose Test Strip) strip Start: 03-12-2022 End: 05-14-2022 CATHETER, CVD PLNDRME 19CM FDA Start: 01-14-2018 SUTURE,LIGA CLIP MED LT200 FDA Start: 05-15-2018 SUTURE,LIGA CLIP MED LT200 FDA Start: 05-15-2018 SUTURE,LIGA CLIP SM LT-100 FDA Start: 05-15-2018 SUTURE,LIGA CLIP SM LT-100 FDA Start: 05-15-2018 SUTURE,LIGA CLIP SM LT-100 FDA Start: 05-15-2018 SUTURE,LIGA CLIP SM LT-100 FDA Start: 05-15-2018 CATHETER, CVD PLNDRME 19CM FDA Start: 10-31-2018 SUTURE,LIGA CLIP MED LT200 FDA Start: 10-31-2018 SUTURE,LIGA CLIP MED LT200 FDA Start: 10-31-2018 SUTURE,LIGA CLIP SM LT-100 FDA Start: 10-31-2018 SUTURE,LIGA CLIP SM LT-100 FDA Start: 10-31-2018 SUTURE,LIGA CLIP SM LT-100 FDA Start: 10-31-2018 SUTURE,LIGA CLIP SM LT-100 FDA Start: 10-31-2018 SUTURE,LIGA CLIP SM LT-100 FDA Start: 10-31-2018 SUTURE,LIGA CLIP MED LT200 FDA Start: 11-06-2018 SUTURE,LIGA CLIP MED LT200 FDA Start: 11-06-2018 SUTURE,LIGA CLIP SM LT-100 FDA Start: 11-06-2018 SUTURE,LIGA CLIP SM LT-100 FDA Start: 11-06-2018 SUTURE,LIGA CLIP SM LT-100 FDA Start: 11-06-2018 SUTURE,LIGA CLIP SM LT-100 FDA Start: 11-06-2018 SUTURE,LIGA CLIP MED LT200 FDA Start: 05-29-2019 SUTURE,LIGA CLIP MED LT200 FDA Start: 05-29-2019 SUTURE,LIGA CLIP MED LT200 FDA Start: 05-29-2019 SUTURE,LIGA CLIP SM LT-100 FDA Start: 05-29-2019 SUTURE,LIGA CLIP SM LT-100 FDA Start: 05-29-2019 SUTURE,LIGA CLIP SM LT-100 FDA Start: 05-29-2019 SUTURE,LIGA CLIP SM LT-100 FDA Start: 05-29-2019 Blood Sugar Diagnostic (True Metrix Glucose Test Strip) strip Start: 05-14-2022 Blood Sugar Diagnostic (True Metrix Glucose Test Strip) strip Start: 03-12-2022 End: 05-14-2022 CATHETER, CVD PLNDRME 19CM FDA Start: 01-14-2018 SUTURE,LIGA CLIP MED LT200 FDA Start: 05-15-2018 SUTURE,LIGA CLIP MED LT200 FDA Start: 05-15-2018 SUTURE,LIGA CLIP SM LT-100 FDA Start: 05-15-2018 SUTURE,LIGA CLIP SM LT-100 FDA Start: 05-15-2018 SUTURE,LIGA CLIP SM LT-100 FDA Start: 05-15-2018 SUTURE,LIGA CLIP SM LT-100 FDA Start: 05-15-2018 CATHETER, CVD PLNDRME 19CM FDA Start: 10-31-2018 SUTURE,LIGA CLIP MED LT200 FDA Start: 10-31-2018 SUTURE,LIGA CLIP MED LT200 FDA Start: 10-31-2018 SUTURE,LIGA CLIP SM LT-100 FDA Start: 10-31-2018 SUTURE,LIGA CLIP SM LT-100 FDA Start: 10-31-2018 SUTURE,LIGA CLIP SM LT-100 FDA Start: 10-31-2018 SUTURE,LIGA CLIP SM LT-100 FDA Start: 10-31-2018 SUTURE,LIGA CLIP SM LT-100 FDA Start: 10-31-2018 SUTURE,LIGA CLIP MED LT200 FDA Start: 11-06-2018 SUTURE,LIGA CLIP MED LT200 FDA Start: 11-06-2018 SUTURE,LIGA CLIP SM LT-100 FDA Start: 11-06-2018 SUTURE,LIGA CLIP SM LT-100 FDA Start: 11-06-2018 SUTURE,LIGA CLIP SM LT-100 FDA Start: 11-06-2018 SUTURE,LIGA CLIP SM LT-100 FDA Start: 11-06-2018 SUTURE,LIGA CLIP MED LT200 FDA Start: 05-29-2019 SUTURE,LIGA CLIP MED LT200 FDA Start: 05-29-2019 SUTURE,LIGA CLIP MED LT200 FDA Start: 05-29-2019 SUTURE,LIGA CLIP SM LT-100 FDA Start: 05-29-2019 SUTURE,LIGA CLIP SM LT-100 FDA Start: 05-29-2019 SUTURE,LIGA CLIP SM LT-100 FDA Start: 05-29-2019 SUTURE,LIGA CLIP SM LT-100 FDA Start: 05-29-2019 Blood Sugar Diagnostic (True Metrix Glucose Test Strip) strip Start: 05-14-2022 Blood Sugar Diagnostic (True Metrix Glucose Test Strip) strip Start: 03-12-2022 End: 05-14-2022 CATHETER, CVD PLNDRME 19CM FDA Start: 01-14-2018 SUTURE,LIGA CLIP MED LT200 FDA Start: 05-15-2018 SUTURE,LIGA CLIP MED LT200 FDA Start: 05-15-2018 SUTURE,LIGA CLIP SM LT-100 FDA Start: 05-15-2018 SUTURE,LIGA CLIP SM LT-100 FDA Start: 05-15-2018 SUTURE,LIGA CLIP SM LT-100 FDA Start: 05-15-2018 SUTURE,LIGA CLIP SM LT-100 FDA Start: 05-15-2018 CATHETER, CVD PLNDRME 19CM FDA Start: 10-31-2018 SUTURE,LIGA CLIP MED LT200 FDA Start: 10-31-2018 SUTURE,LIGA CLIP MED LT200 FDA Start: 10-31-2018 SUTURE,LIGA CLIP SM LT-100 FDA Start: 10-31-2018 SUTURE,LIGA CLIP SM LT-100 FDA Start: 10-31-2018 SUTURE,LIGA CLIP SM LT-100 FDA Start: 10-31-2018 SUTURE,LIGA CLIP SM LT-100 FDA Start: 10-31-2018 SUTURE,LIGA CLIP SM LT-100 FDA Start: 10-31-2018 SUTURE,LIGA CLIP MED LT200 FDA Start: 11-06-2018 SUTURE,LIGA CLIP MED LT200 FDA Start: 11-06-2018 SUTURE,LIGA CLIP SM LT-100 FDA Start: 11-06-2018 SUTURE,LIGA CLIP SM LT-100 FDA Start: 11-06-2018 SUTURE,LIGA CLIP SM LT-100 FDA Start: 11-06-2018 SUTURE,LIGA CLIP SM LT-100 FDA Start: 11-06-2018 SUTURE,LIGA CLIP MED LT200 FDA Start: 05-29-2019 SUTURE,LIGA CLIP MED LT200 FDA Start: 05-29-2019 SUTURE,LIGA CLIP MED LT200 FDA Start: 05-29-2019 SUTURE,LIGA CLIP SM LT-100 FDA Start: 05-29-2019 SUTURE,LIGA CLIP SM LT-100 FDA Start: 05-29-2019 SUTURE,LIGA CLIP SM LT-100 FDA Start: 05-29-2019 SUTURE,LIGA CLIP SM LT-100 FDA Start: 05-29-2019 Blood Sugar Diagnostic (True Metrix Glucose Test Strip) strip Start: 05-14-2022 Blood Sugar Diagnostic (True Metrix Glucose Test Strip) strip Start: 03-12-2022 End: 05-14-2022 CATHETER, CVD PLNDRME 19CM FDA Start: 01-14-2018 SUTURE,LIGA CLIP MED LT200 FDA Start: 05-15-2018 SUTURE,LIGA CLIP MED LT200 FDA Start: 05-15-2018 SUTURE,LIGA CLIP SM LT-100 FDA Start: 05-15-2018 SUTURE,LIGA CLIP SM LT-100 FDA Start: 05-15-2018 SUTURE,LIGA CLIP SM LT-100 FDA Start: 05-15-2018 SUTURE,LIGA CLIP SM LT-100 FDA Start: 05-15-2018 CATHETER, CVD PLNDRME 19CM FDA Start: 10-31-2018 SUTURE,LIGA CLIP MED LT200 FDA Start: 10-31-2018 SUTURE,LIGA CLIP MED LT200 FDA Start: 10-31-2018 SUTURE,LIGA CLIP SM LT-100 FDA Start: 10-31-2018 SUTURE,LIGA CLIP SM LT-100 FDA Start: 10-31-2018 SUTURE,LIGA CLIP SM LT-100 FDA Start: 10-31-2018 SUTURE,LIGA CLIP SM LT-100 FDA Start: 10-31-2018 SUTURE,LIGA CLIP SM LT-100 FDA Start: 10-31-2018 SUTURE,LIGA CLIP MED LT200 FDA Start: 11-06-2018 SUTURE,LIGA CLIP MED LT200 FDA Start: 11-06-2018 SUTURE,LIGA CLIP SM LT-100 FDA Start: 11-06-2018 SUTURE,LIGA CLIP SM LT-100 FDA Start: 11-06-2018 SUTURE,LIGA CLIP SM LT-100 FDA Start: 11-06-2018 SUTURE,LIGA CLIP SM LT-100 FDA Start: 11-06-2018 SUTURE,LIGA CLIP MED LT200 FDA Start: 05-29-2019 SUTURE,LIGA CLIP MED LT200 FDA Start: 05-29-2019 SUTURE,LIGA CLIP MED LT200 FDA Start: 05-29-2019 SUTURE,LIGA CLIP SM LT-100 FDA Start: 05-29-2019 SUTURE,LIGA CLIP SM LT-100 FDA Start: 05-29-2019 SUTURE,LIGA CLIP SM LT-100 FDA Start: 05-29-2019 SUTURE,LIGA CLIP SM LT-100 FDA Start: 05-29-2019 Blood Sugar Diagnostic (True Metrix Glucose Test Strip) strip Start: 05-14-2022 Blood Sugar Diagnostic (True Metrix Glucose Test Strip) strip Start: 03-12-2022 End: 05-14-2022 CATHETER, CVD PLNDRME 19CM FDA Start: 01-14-2018 SUTURE,LIGA CLIP MED LT200 FDA Start: 05-15-2018 SUTURE,LIGA CLIP MED LT200 FDA Start: 05-15-2018 SUTURE,LIGA CLIP SM LT-100 FDA Start: 05-15-2018 SUTURE,LIGA CLIP SM LT-100 FDA Start: 05-15-2018 SUTURE,LIGA CLIP SM LT-100 FDA Start: 05-15-2018 SUTURE,LIGA CLIP SM LT-100 FDA Start: 05-15-2018 CATHETER, CVD PLNDRME 19CM FDA Start: 10-31-2018 SUTURE,LIGA CLIP MED LT200 FDA Start: 10-31-2018 SUTURE,LIGA CLIP MED LT200 FDA Start: 10-31-2018 SUTURE,LIGA CLIP SM LT-100 FDA Start: 10-31-2018 SUTURE,LIGA CLIP SM LT-100 FDA Start: 10-31-2018 SUTURE,LIGA CLIP SM LT-100 FDA Start: 10-31-2018 SUTURE,LIGA CLIP SM LT-100 FDA Start: 10-31-2018 SUTURE,LIGA CLIP SM LT-100 FDA Start: 10-31-2018 SUTURE,LIGA CLIP MED LT200 FDA Start: 11-06-2018 SUTURE,LIGA CLIP MED LT200 FDA Start: 11-06-2018 SUTURE,LIGA CLIP SM LT-100 FDA Start: 11-06-2018 SUTURE,LIGA CLIP SM LT-100 FDA Start: 11-06-2018 SUTURE,LIGA CLIP SM LT-100 FDA Start: 11-06-2018 SUTURE,LIGA CLIP SM LT-100 FDA Start: 11-06-2018 SUTURE,LIGA CLIP MED LT200 FDA Start: 05-29-2019 SUTURE,LIGA CLIP MED LT200 FDA Start: 05-29-2019 SUTURE,LIGA CLIP MED LT200 FDA Start: 05-29-2019 SUTURE,LIGA CLIP SM LT-100 FDA Start: 05-29-2019 SUTURE,LIGA CLIP SM LT-100 FDA Start: 05-29-2019 SUTURE,LIGA CLIP SM LT-100 FDA Start: 05-29-2019 SUTURE,LIGA CLIP SM LT-100 FDA Start: 05-29-2019 Blood Sugar Diagnostic (True Metrix Glucose Test Strip) strip Start: 05-14-2022 Blood Sugar Diagnostic (True Metrix Glucose Test Strip) strip Start: 03-12-2022 End: 05-14-2022 CATHETER, CVD PLNDRME 19CM FDA Start: 01-14-2018 SUTURE,LIGA CLIP MED LT200 FDA Start: 05-15-2018 SUTURE,LIGA CLIP MED LT200 FDA Start: 05-15-2018 SUTURE,LIGA CLIP SM LT-100 FDA Start: 05-15-2018 SUTURE,LIGA CLIP SM LT-100 FDA Start: 05-15-2018 SUTURE,LIGA CLIP SM LT-100 FDA Start: 05-15-2018 SUTURE,LIGA CLIP SM LT-100 FDA Start: 05-15-2018 CATHETER, CVD PLNDRME 19CM FDA Start: 10-31-2018 SUTURE,LIGA CLIP MED LT200 FDA Start: 10-31-2018 SUTURE,LIGA CLIP MED LT200 FDA Start: 10-31-2018 SUTURE,LIGA CLIP SM LT-100 FDA Start: 10-31-2018 SUTURE,LIGA CLIP SM LT-100 FDA Start: 10-31-2018 SUTURE,LIGA CLIP SM LT-100 FDA Start: 10-31-2018 SUTURE,LIGA CLIP SM LT-100 FDA Start: 10-31-2018 SUTURE,LIGA CLIP SM LT-100 FDA Start: 10-31-2018 SUTURE,LIGA CLIP MED LT200 FDA Start: 11-06-2018 SUTURE,LIGA CLIP MED LT200 FDA Start: 11-06-2018 SUTURE,LIGA CLIP SM LT-100 FDA Start: 11-06-2018 SUTURE,LIGA CLIP SM LT-100 FDA Start: 11-06-2018 SUTURE,LIGA CLIP SM LT-100 FDA Start: 11-06-2018 SUTURE,LIGA CLIP SM LT-100 FDA Start: 11-06-2018 SUTURE,LIGA CLIP MED LT200 FDA Start: 05-29-2019 SUTURE,LIGA CLIP MED LT200 FDA Start: 05-29-2019 SUTURE,LIGA CLIP MED LT200 FDA Start: 05-29-2019 SUTURE,LIGA CLIP SM LT-100 FDA Start: 05-29-2019 SUTURE,LIGA CLIP SM LT-100 FDA Start: 05-29-2019 SUTURE,LIGA CLIP SM LT-100 FDA Start: 05-29-2019 SUTURE,LIGA CLIP SM LT-100 FDA Start: 05-29-2019 Blood Sugar Diagnostic (True Metrix Glucose Test Strip) strip Start: 05-14-2022 Pen Needle, Diabetic (Bd Ultra-Fine Meaghan Pen Needle) 32 gauge x 5/32 needle Start: 10-29-2022 Blood Sugar Diagnostic (True Metrix Glucose Test Strip) strip Start: 03-12-2022 End: 05-14-2022 CATHETER, CVD PLNDRME 19CM FDA Start: 01-14-2018 SUTURE,LIGA CLIP MED LT200 FDA Start: 05-15-2018 SUTURE,LIGA CLIP MED LT200 FDA Start: 05-15-2018 SUTURE,LIGA CLIP SM LT-100 FDA Start: 05-15-2018 SUTURE,LIGA CLIP SM LT-100 FDA Start: 05-15-2018 SUTURE,LIGA CLIP SM LT-100 FDA Start: 05-15-2018 SUTURE,LIGA CLIP SM LT-100 FDA Start: 05-15-2018 CATHETER, CVD PLNDRME 19CM FDA Start: 10-31-2018 SUTURE,LIGA CLIP MED LT200 FDA Start: 10-31-2018 SUTURE,LIGA CLIP MED LT200 FDA Start: 10-31-2018 SUTURE,LIGA CLIP SM LT-100 FDA Start: 10-31-2018 SUTURE,LIGA CLIP SM LT-100 FDA Start: 10-31-2018 SUTURE,LIGA CLIP SM LT-100 FDA Start: 10-31-2018 SUTURE,LIGA CLIP SM LT-100 FDA Start: 10-31-2018 SUTURE,LIGA CLIP SM LT-100 FDA Start: 10-31-2018 SUTURE,LIGA CLIP MED LT200 FDA Start: 11-06-2018 SUTURE,LIGA CLIP MED LT200 FDA Start: 11-06-2018 SUTURE,LIGA CLIP SM LT-100 FDA Start: 11-06-2018 SUTURE,LIGA CLIP SM LT-100 FDA Start: 11-06-2018 SUTURE,LIGA CLIP SM LT-100 FDA Start: 11-06-2018 SUTURE,LIGA CLIP SM LT-100 FDA Start: 11-06-2018 SUTURE,LIGA CLIP MED LT200 FDA Start: 05-29-2019 SUTURE,LIGA CLIP MED LT200 FDA Start: 05-29-2019 SUTURE,LIGA CLIP MED LT200 FDA Start: 05-29-2019 SUTURE,LIGA CLIP SM LT-100 FDA Start: 05-29-2019 SUTURE,LIGA CLIP SM LT-100 FDA Start: 05-29-2019 SUTURE,LIGA CLIP SM LT-100 FDA Start: 05-29-2019 SUTURE,LIGA CLIP SM LT-100 FDA Start: 05-29-2019 Blood Sugar Diagnostic (True Metrix Glucose Test Strip) strip Start: 05-14-2022 Pen Needle, Diabetic (Bd Ultra-Fine Meaghan Pen Needle) 32 gauge x 5/32 needle Start: 10-29-2022 Blood Sugar Diagnostic (True Metrix Glucose Test Strip) strip Start: 03-12-2022 End: 05-14-2022 CATHETER, CVD PLNDRME 19CM FDA Start: 01-14-2018 SUTURE,LIGA CLIP MED LT200 FDA Start: 05-15-2018 SUTURE,LIGA CLIP MED LT200 FDA Start: 05-15-2018 SUTURE,LIGA CLIP SM LT-100 FDA Start: 05-15-2018 SUTURE,LIGA CLIP SM LT-100 FDA Start: 05-15-2018 SUTURE,LIGA CLIP SM LT-100 FDA Start: 05-15-2018 SUTURE,LIGA CLIP SM LT-100 FDA Start: 05-15-2018 CATHETER, CVD PLNDRME 19CM FDA Start: 10-31-2018 SUTURE,LIGA CLIP MED LT200 FDA Start: 10-31-2018 SUTURE,LIGA CLIP MED LT200 FDA Start: 10-31-2018 SUTURE,LIGA CLIP SM LT-100 FDA Start: 10-31-2018 SUTURE,LIGA CLIP SM LT-100 FDA Start: 10-31-2018 SUTURE,LIGA CLIP SM LT-100 FDA Start: 10-31-2018 SUTURE,LIGA CLIP SM LT-100 FDA Start: 10-31-2018 SUTURE,LIGA CLIP SM LT-100 FDA Start: 10-31-2018 SUTURE,LIGA CLIP MED LT200 FDA Start: 11-06-2018 SUTURE,LIGA CLIP MED LT200 FDA Start: 11-06-2018 SUTURE,LIGA CLIP SM LT-100 FDA Start: 11-06-2018 SUTURE,LIGA CLIP SM LT-100 FDA Start: 11-06-2018 SUTURE,LIGA CLIP SM LT-100 FDA Start: 11-06-2018 SUTURE,LIGA CLIP SM LT-100 FDA Start: 11-06-2018 SUTURE,LIGA CLIP MED LT200 FDA Start: 05-29-2019 SUTURE,LIGA CLIP MED LT200 FDA Start: 05-29-2019 SUTURE,LIGA CLIP MED LT200 FDA Start: 05-29-2019 SUTURE,LIGA CLIP SM LT-100 FDA Start: 05-29-2019 SUTURE,LIGA CLIP SM LT-100 FDA Start: 05-29-2019 SUTURE,LIGA CLIP SM LT-100 FDA Start: 05-29-2019 SUTURE,LIGA CLIP SM LT-100 FDA Start: 05-29-2019 Blood Sugar Diagnostic (True Metrix Glucose Test Strip) strip Start: 05-14-2022 Pen Needle, Diabetic (Bd Ultra-Fine Meaghan Pen Needle) 32 gauge x 5/32 needle Start: 10-29-2022 Blood Sugar Diagnostic (True Metrix Glucose Test Strip) strip Start: 03-12-2022 End: 05-14-2022 CATHETER, CVD PLNDRME 19CM FDA Start: 01-14-2018 SUTURE,LIGA CLIP MED LT200 FDA Start: 05-15-2018 SUTURE,LIGA CLIP MED LT200 FDA Start: 05-15-2018 SUTURE,LIGA CLIP SM LT-100 FDA Start: 05-15-2018 SUTURE,LIGA CLIP SM LT-100 FDA Start: 05-15-2018 SUTURE,LIGA CLIP SM LT-100 FDA Start: 05-15-2018 SUTURE,LIGA CLIP SM LT-100 FDA Start: 05-15-2018 CATHETER, CVD PLNDRME 19CM FDA Start: 10-31-2018 SUTURE,LIGA CLIP MED LT200 FDA Start: 10-31-2018 SUTURE,LIGA CLIP MED LT200 FDA Start: 10-31-2018 SUTURE,LIGA CLIP SM LT-100 FDA Start: 10-31-2018 SUTURE,LIGA CLIP SM LT-100 FDA Start: 10-31-2018 SUTURE,LIGA CLIP SM LT-100 FDA Start: 10-31-2018 SUTURE,LIGA CLIP SM LT-100 FDA Start: 10-31-2018 SUTURE,LIGA CLIP SM LT-100 FDA Start: 10-31-2018 SUTURE,LIGA CLIP MED LT200 FDA Start: 11-06-2018 SUTURE,LIGA CLIP MED LT200 FDA Start: 11-06-2018 SUTURE,LIGA CLIP SM LT-100 FDA Start: 11-06-2018 SUTURE,LIGA CLIP SM LT-100 FDA Start: 11-06-2018 SUTURE,LIGA CLIP SM LT-100 FDA Start: 11-06-2018 SUTURE,LIGA CLIP SM LT-100 FDA Start: 11-06-2018 SUTURE,LIGA CLIP MED LT200 FDA Start: 05-29-2019 SUTURE,LIGA CLIP MED LT200 FDA Start: 05-29-2019 SUTURE,LIGA CLIP MED LT200 FDA Start: 05-29-2019 SUTURE,LIGA CLIP SM LT-100 FDA Start: 05-29-2019 SUTURE,LIGA CLIP SM LT-100 FDA Start: 05-29-2019 SUTURE,LIGA CLIP SM LT-100 FDA Start: 05-29-2019 SUTURE,LIGA CLIP SM LT-100 FDA Start: 05-29-2019 Blood Sugar Diagnostic (True Metrix Glucose Test Strip) strip Start: 05-14-2022 Pen Needle, Diabetic (Bd Ultra-Fine Meaghan Pen Needle) 32 gauge x 5/32 needle Start: 10-29-2022 Blood Sugar Diagnostic (True Metrix Glucose Test Strip) strip Start: 03-12-2022 End: 05-14-2022 CATHETER, CVD PLNDRME 19CM FDA Start: 01-14-2018 SUTURE,LIGA CLIP MED LT200 FDA Start: 05-15-2018 SUTURE,LIGA CLIP MED LT200 FDA Start: 05-15-2018 SUTURE,LIGA CLIP SM LT-100 FDA Start: 05-15-2018 SUTURE,LIGA CLIP SM LT-100 FDA Start: 05-15-2018 SUTURE,LIGA CLIP SM LT-100 FDA Start: 05-15-2018 SUTURE,LIGA CLIP SM LT-100 FDA Start: 05-15-2018 CATHETER, CVD PLNDRME 19CM FDA Start: 10-31-2018 SUTURE,LIGA CLIP MED LT200 FDA Start: 10-31-2018 SUTURE,LIGA CLIP MED LT200 FDA Start: 10-31-2018 SUTURE,LIGA CLIP SM LT-100 FDA Start: 10-31-2018 SUTURE,LIGA CLIP SM LT-100 FDA Start: 10-31-2018 SUTURE,LIGA CLIP SM LT-100 FDA Start: 10-31-2018 SUTURE,LIGA CLIP SM LT-100 FDA Start: 10-31-2018 SUTURE,LIGA CLIP SM LT-100 FDA Start: 10-31-2018 SUTURE,LIGA CLIP MED LT200 FDA Start: 11-06-2018 SUTURE,LIGA CLIP MED LT200 FDA Start: 11-06-2018 SUTURE,LIGA CLIP SM LT-100 FDA Start: 11-06-2018 SUTURE,LIGA CLIP SM LT-100 FDA Start: 11-06-2018 SUTURE,LIGA CLIP SM LT-100 FDA Start: 11-06-2018 SUTURE,LIGA CLIP SM LT-100 FDA Start: 11-06-2018 SUTURE,LIGA CLIP MED LT200 FDA Start: 05-29-2019 SUTURE,LIGA CLIP MED LT200 FDA Start: 05-29-2019 SUTURE,LIGA CLIP MED LT200 FDA Start: 05-29-2019 SUTURE,LIGA CLIP SM LT-100 FDA Start: 05-29-2019 SUTURE,LIGA CLIP SM LT-100 FDA Start: 05-29-2019 SUTURE,LIGA CLIP SM LT-100 FDA Start: 05-29-2019 SUTURE,LIGA CLIP SM LT-100 FDA Start: 05-29-2019 Blood Sugar Diagnostic (True Metrix Glucose Test Strip) strip Start: 05-14-2022 Pen Needle, Diabetic (Bd Ultra-Fine Meaghan Pen Needle) 32 gauge x 5/32 needle Start: 10-29-2022 Blood Sugar Diagnostic (True Metrix Glucose Test Strip) strip Start: 03-12-2022 End: 05-14-2022 CATHETER, CVD PLNDRME 19CM FDA Start: 01-14-2018 SUTURE,LIGA CLIP MED LT200 FDA Start: 05-15-2018 SUTURE,LIGA CLIP MED LT200 FDA Start: 05-15-2018 SUTURE,LIGA CLIP SM LT-100 FDA Start: 05-15-2018 SUTURE,LIGA CLIP SM LT-100 FDA Start: 05-15-2018 SUTURE,LIGA CLIP SM LT-100 FDA Start: 05-15-2018 SUTURE,LIGA CLIP SM LT-100 FDA Start: 05-15-2018 CATHETER, CVD PLNDRME 19CM FDA Start: 10-31-2018 SUTURE,LIGA CLIP MED LT200 FDA Start: 10-31-2018 SUTURE,LIGA CLIP MED LT200 FDA Start: 10-31-2018 SUTURE,LIGA CLIP SM LT-100 FDA Start: 10-31-2018 SUTURE,LIGA CLIP SM LT-100 FDA Start: 10-31-2018 SUTURE,LIGA CLIP SM LT-100 FDA Start: 10-31-2018 SUTURE,LIGA CLIP SM LT-100 FDA Start: 10-31-2018 SUTURE,LIGA CLIP SM LT-100 FDA Start: 10-31-2018 SUTURE,LIGA CLIP MED LT200 FDA Start: 11-06-2018 SUTURE,LIGA CLIP MED LT200 FDA Start: 11-06-2018 SUTURE,LIGA CLIP SM LT-100 FDA Start: 11-06-2018 SUTURE,LIGA CLIP SM LT-100 FDA Start: 11-06-2018 SUTURE,LIGA CLIP SM LT-100 FDA Start: 11-06-2018 SUTURE,LIGA CLIP SM LT-100 FDA Start: 11-06-2018 SUTURE,LIGA CLIP MED LT200 FDA Start: 05-29-2019 SUTURE,LIGA CLIP MED LT200 FDA Start: 05-29-2019 SUTURE,LIGA CLIP MED LT200 FDA Start: 05-29-2019 SUTURE,LIGA CLIP SM LT-100 FDA Start: 05-29-2019 SUTURE,LIGA CLIP SM LT-100 FDA Start: 05-29-2019 SUTURE,LIGA CLIP SM LT-100 FDA Start: 05-29-2019 SUTURE,LIGA CLIP SM LT-100 FDA Start: 05-29-2019 Blood Sugar Diagnostic (True Metrix Glucose Test Strip) strip Start: 05-14-2022 Pen Needle, Diabetic (Bd Ultra-Fine Meaghan Pen Needle) 32 gauge x 5/32 needle Start: 10-29-2022 Blood Sugar Diagnostic (True Metrix Glucose Test Strip) strip Start: 03-12-2022 End: 05-14-2022 CATHETER, CVD PLNDRME 19CM FDA Start: 01-14-2018 SUTURE,LIGA CLIP MED LT200 FDA Start: 05-15-2018 SUTURE,LIGA CLIP MED LT200 FDA Start: 05-15-2018 SUTURE,LIGA CLIP SM LT-100 FDA Start: 05-15-2018 SUTURE,LIGA CLIP SM LT-100 FDA Start: 05-15-2018 SUTURE,LIGA CLIP SM LT-100 FDA Start: 05-15-2018 SUTURE,LIGA CLIP SM LT-100 FDA Start: 05-15-2018 CATHETER, CVD PLNDRME 19CM FDA Start: 10-31-2018 SUTURE,LIGA CLIP MED LT200 FDA Start: 10-31-2018 SUTURE,LIGA CLIP MED LT200 FDA Start: 10-31-2018 SUTURE,LIGA CLIP SM LT-100 FDA Start: 10-31-2018 SUTURE,LIGA CLIP SM LT-100 FDA Start: 10-31-2018 SUTURE,LIGA CLIP SM LT-100 FDA Start: 10-31-2018 SUTURE,LIGA CLIP SM LT-100 FDA Start: 10-31-2018 SUTURE,LIGA CLIP SM LT-100 FDA Start: 10-31-2018 SUTURE,LIGA CLIP MED LT200 FDA Start: 11-06-2018 SUTURE,LIGA CLIP MED LT200 FDA Start: 11-06-2018 SUTURE,LIGA CLIP SM LT-100 FDA Start: 11-06-2018 SUTURE,LIGA CLIP SM LT-100 FDA Start: 11-06-2018 SUTURE,LIGA CLIP SM LT-100 FDA Start: 11-06-2018 SUTURE,LIGA CLIP SM LT-100 FDA Start: 11-06-2018 SUTURE,LIGA CLIP MED LT200 FDA Start: 05-29-2019 SUTURE,LIGA CLIP MED LT200 FDA Start: 05-29-2019 SUTURE,LIGA CLIP MED LT200 FDA Start: 05-29-2019 SUTURE,LIGA CLIP SM LT-100 FDA Start: 05-29-2019 SUTURE,LIGA CLIP SM LT-100 FDA Start: 05-29-2019 SUTURE,LIGA CLIP SM LT-100 FDA Start: 05-29-2019 SUTURE,LIGA CLIP SM LT-100 FDA Start: 05-29-2019 Blood Sugar Diagnostic (True Metrix Glucose Test Strip) strip Start: 05-14-2022 Pen Needle, Diabetic (Bd Ultra-Fine Meaghan Pen Needle) 32 gauge x 5/32 needle Start: 10-29-2022 Blood Sugar Diagnostic (True Metrix Glucose Test Strip) strip Start: 03-12-2022 End: 05-14-2022 CATHETER, CVD PLNDRME 19CM FDA Start: 01-14-2018 SUTURE,LIGA CLIP MED LT200 FDA Start: 05-15-2018 SUTURE,LIGA CLIP MED LT200 FDA Start: 05-15-2018 SUTURE,LIGA CLIP SM LT-100 FDA Start: 05-15-2018 SUTURE,LIGA CLIP SM LT-100 FDA Start: 05-15-2018 SUTURE,LIGA CLIP SM LT-100 FDA Start: 05-15-2018 SUTURE,LIGA CLIP SM LT-100 FDA Start: 05-15-2018 CATHETER, CVD PLNDRME 19CM FDA Start: 10-31-2018 SUTURE,LIGA CLIP MED LT200 FDA Start: 10-31-2018 SUTURE,LIGA CLIP MED LT200 FDA Start: 10-31-2018 SUTURE,LIGA CLIP SM LT-100 FDA Start: 10-31-2018 SUTURE,LIGA CLIP SM LT-100 FDA Start: 10-31-2018 SUTURE,LIGA CLIP SM LT-100 FDA Start: 10-31-2018 SUTURE,LIGA CLIP SM LT-100 FDA Start: 10-31-2018 SUTURE,LIGA CLIP SM LT-100 FDA Start: 10-31-2018 SUTURE,LIGA CLIP MED LT200 FDA Start: 11-06-2018 SUTURE,LIGA CLIP MED LT200 FDA Start: 11-06-2018 SUTURE,LIGA CLIP SM LT-100 FDA Start: 11-06-2018 SUTURE,LIGA CLIP SM LT-100 FDA Start: 11-06-2018 SUTURE,LIGA CLIP SM LT-100 FDA Start: 11-06-2018 SUTURE,LIGA CLIP SM LT-100 FDA Start: 11-06-2018 SUTURE,LIGA CLIP MED LT200 FDA Start: 05-29-2019 SUTURE,LIGA CLIP MED LT200 FDA Start: 05-29-2019 SUTURE,LIGA CLIP MED LT200 FDA Start: 05-29-2019 SUTURE,LIGA CLIP SM LT-100 FDA Start: 05-29-2019 SUTURE,LIGA CLIP SM LT-100 FDA Start: 05-29-2019 SUTURE,LIGA CLIP SM LT-100 FDA Start: 05-29-2019 SUTURE,LIGA CLIP SM LT-100 FDA Start: 05-29-2019 Blood Sugar Diagnostic (True Metrix Glucose Test Strip) strip Start: 05-14-2022 Pen Needle, Diabetic (Bd Ultra-Fine Meaghan Pen Needle) 32 gauge x 5/32 needle Start: 10-29-2022 Blood Sugar Diagnostic (True Metrix Glucose Test Strip) strip Start: 03-12-2022 End: 05-14-2022 CATHETER, CVD PLNDRME 19CM FDA Start: 01-14-2018 SUTURE,LIGA CLIP MED LT200 FDA Start: 05-15-2018 SUTURE,LIGA CLIP MED LT200 FDA Start: 05-15-2018 SUTURE,LIGA CLIP SM LT-100 FDA Start: 05-15-2018 SUTURE,LIGA CLIP SM LT-100 FDA Start: 05-15-2018 SUTURE,LIGA CLIP SM LT-100 FDA Start: 05-15-2018 SUTURE,LIGA CLIP SM LT-100 FDA Start: 05-15-2018 CATHETER, CVD PLNDRME 19CM FDA Start: 10-31-2018 SUTURE,LIGA CLIP MED LT200 FDA Start: 10-31-2018 SUTURE,LIGA CLIP MED LT200 FDA Start: 10-31-2018 SUTURE,LIGA CLIP SM LT-100 FDA Start: 10-31-2018 SUTURE,LIGA CLIP SM LT-100 FDA Start: 10-31-2018 SUTURE,LIGA CLIP SM LT-100 FDA Start: 10-31-2018 SUTURE,LIGA CLIP SM LT-100 FDA Start: 10-31-2018 SUTURE,LIGA CLIP SM LT-100 FDA Start: 10-31-2018 SUTURE,LIGA CLIP MED LT200 FDA Start: 11-06-2018 SUTURE,LIGA CLIP MED LT200 FDA Start: 11-06-2018 SUTURE,LIGA CLIP SM LT-100 FDA Start: 11-06-2018 SUTURE,LIGA CLIP SM LT-100 FDA Start: 11-06-2018 SUTURE,LIGA CLIP SM LT-100 FDA Start: 11-06-2018 SUTURE,LIGA CLIP SM LT-100 FDA Start: 11-06-2018 SUTURE,LIGA CLIP MED LT200 FDA Start: 05-29-2019 SUTURE,LIGA CLIP MED LT200 FDA Start: 05-29-2019 SUTURE,LIGA CLIP MED LT200 FDA Start: 05-29-2019 SUTURE,LIGA CLIP SM LT-100 FDA Start: 05-29-2019 SUTURE,LIGA CLIP SM LT-100 FDA Start: 05-29-2019 SUTURE,LIGA CLIP SM LT-100 FDA Start: 05-29-2019 SUTURE,LIGA CLIP SM LT-100 FDA Start: 05-29-2019 Blood Sugar Diagnostic (True Metrix Glucose Test Strip) strip Start: 05-14-2022 Pen Needle, Diabetic (Bd Ultra-Fine Meaghan Pen Needle) 32 gauge x 5/32 needle Start: 10-29-2022 Blood Sugar Diagnostic (True Metrix Glucose Test Strip) strip Start: 03-12-2022 End: 05-14-2022 CATHETER, CVD PLNDRME 19CM FDA Start: 01-14-2018 SUTURE,LIGA CLIP MED LT200 FDA Start: 05-15-2018 SUTURE,LIGA CLIP MED LT200 FDA Start: 05-15-2018 SUTURE,LIGA CLIP SM LT-100 FDA Start: 05-15-2018 SUTURE,LIGA CLIP SM LT-100 FDA Start: 05-15-2018 SUTURE,LIGA CLIP SM LT-100 FDA Start: 05-15-2018 SUTURE,LIGA CLIP SM LT-100 FDA Start: 05-15-2018 CATHETER, CVD PLNDRME 19CM FDA Start: 10-31-2018 SUTURE,LIGA CLIP MED LT200 FDA Start: 10-31-2018 SUTURE,LIGA CLIP MED LT200 FDA Start: 10-31-2018 SUTURE,LIGA CLIP SM LT-100 FDA Start: 10-31-2018 SUTURE,LIGA CLIP SM LT-100 FDA Start: 10-31-2018 SUTURE,LIGA CLIP SM LT-100 FDA Start: 10-31-2018 SUTURE,LIGA CLIP SM LT-100 FDA Start: 10-31-2018 SUTURE,LIGA CLIP SM LT-100 FDA Start: 10-31-2018 SUTURE,LIGA CLIP MED LT200 FDA Start: 11-06-2018 SUTURE,LIGA CLIP MED LT200 FDA Start: 11-06-2018 SUTURE,LIGA CLIP SM LT-100 FDA Start: 11-06-2018 SUTURE,LIGA CLIP SM LT-100 FDA Start: 11-06-2018 SUTURE,LIGA CLIP SM LT-100 FDA Start: 11-06-2018 SUTURE,LIGA CLIP SM LT-100 FDA Start: 11-06-2018 SUTURE,LIGA CLIP MED LT200 FDA Start: 05-29-2019 SUTURE,LIGA CLIP MED LT200 FDA Start: 05-29-2019 SUTURE,LIGA CLIP MED LT200 FDA Start: 05-29-2019 SUTURE,LIGA CLIP SM LT-100 FDA Start: 05-29-2019 SUTURE,LIGA CLIP SM LT-100 FDA Start: 05-29-2019 SUTURE,LIGA CLIP SM LT-100 FDA Start: 05-29-2019 SUTURE,LIGA CLIP SM LT-100 FDA Start: 05-29-2019 Blood Sugar Diagnostic (True Metrix Glucose Test Strip) strip Start: 05-14-2022 Pen Needle, Diabetic (Bd Ultra-Fine Meaghan Pen Needle) 32 gauge x 5/32 needle Start: 10-29-2022 Blood Sugar Diagnostic (True Metrix Glucose Test Strip) strip Start: 03-12-2022 End: 05-14-2022 Mesh Srg Prc 6.4x6.4cm [facility] [id number] Start: 11-19-2012 Comment on above: Description: Proceed Ventral Patch CATHETER, CVD PLNDRME 19CM FDA Start: 01-14-2018 SUTURE,LIGA CLIP MED LT200 FDA Start: 05-15-2018 SUTURE,LIGA CLIP MED LT200 FDA Start: 05-15-2018 SUTURE,LIGA CLIP SM LT-100 FDA Start: 05-15-2018 SUTURE,LIGA CLIP SM LT-100 FDA Start: 05-15-2018 SUTURE,LIGA CLIP SM LT-100 FDA Start: 05-15-2018 SUTURE,LIGA CLIP SM LT-100 FDA Start: 05-15-2018 CATHETER, CVD PLNDRME 19CM FDA Start: 10-31-2018 SUTURE,LIGA CLIP MED LT200 FDA Start: 10-31-2018 SUTURE,LIGA CLIP MED LT200 FDA Start: 10-31-2018 SUTURE,LIGA CLIP SM LT-100 FDA Start: 10-31-2018 SUTURE,LIGA CLIP SM LT-100 FDA Start: 10-31-2018 SUTURE,LIGA CLIP SM LT-100 FDA Start: 10-31-2018 SUTURE,LIGA CLIP SM LT-100 FDA Start: 10-31-2018 SUTURE,LIGA CLIP SM LT-100 FDA Start: 10-31-2018 SUTURE,LIGA CLIP MED LT200 FDA Start: 11-06-2018 SUTURE,LIGA CLIP MED LT200 FDA Start: 11-06-2018 SUTURE,LIGA CLIP SM LT-100 FDA Start: 11-06-2018 SUTURE,LIGA CLIP SM LT-100 FDA Start: 11-06-2018 SUTURE,LIGA CLIP SM LT-100 FDA Start: 11-06-2018 SUTURE,LIGA CLIP SM LT-100 FDA Start: 11-06-2018 SUTURE,LIGA CLIP MED LT200 FDA Start: 05-29-2019 SUTURE,LIGA CLIP MED LT200 FDA Start: 05-29-2019 SUTURE,LIGA CLIP MED LT200 FDA Start: 05-29-2019 SUTURE,LIGA CLIP SM LT-100 FDA Start: 05-29-2019 SUTURE,LIGA CLIP SM LT-100 FDA Start: 05-29-2019 SUTURE,LIGA CLIP SM LT-100 FDA Start: 05-29-2019 SUTURE,LIGA CLIP SM LT-100 FDA Start: 05-29-2019 Blood Sugar Diagnostic (True Metrix Glucose Test Strip) strip Start: 05-14-2022 Pen Needle, Diabetic (Bd Ultra-Fine Meaghan Pen Needle) 32 gauge x 5/32 needle Start: 10-29-2022 Blood Sugar Diagnostic (True Metrix Glucose Test Strip) strip Start: 03-12-2022 End: 05-14-2022 CATHETER, CVD PLNDRME 19CM FDA Start: 01-14-2018 SUTURE,LIGA CLIP MED LT200 FDA Start: 05-15-2018 SUTURE,LIGA CLIP MED LT200 FDA Start: 05-15-2018 SUTURE,LIGA CLIP SM LT-100 FDA Start: 05-15-2018 SUTURE,LIGA CLIP SM LT-100 FDA Start: 05-15-2018 SUTURE,LIGA CLIP SM LT-100 FDA Start: 05-15-2018 SUTURE,LIGA CLIP SM LT-100 FDA Start: 05-15-2018 CATHETER, CVD PLNDRME 19CM FDA Start: 10-31-2018 SUTURE,LIGA CLIP MED LT200 FDA Start: 10-31-2018 SUTURE,LIGA CLIP MED LT200 FDA Start: 10-31-2018 SUTURE,LIGA CLIP SM LT-100 FDA Start: 10-31-2018 SUTURE,LIGA CLIP SM LT-100 FDA Start: 10-31-2018 SUTURE,LIGA CLIP SM LT-100 FDA Start: 10-31-2018 SUTURE,LIGA CLIP SM LT-100 FDA Start: 10-31-2018 SUTURE,LIGA CLIP SM LT-100 FDA Start: 10-31-2018 SUTURE,LIGA CLIP MED LT200 FDA Start: 11-06-2018 SUTURE,LIGA CLIP MED LT200 FDA Start: 11-06-2018 SUTURE,LIGA CLIP SM LT-100 FDA Start: 11-06-2018 SUTURE,LIGA CLIP SM LT-100 FDA Start: 11-06-2018 SUTURE,LIGA CLIP SM LT-100 FDA Start: 11-06-2018 SUTURE,LIGA CLIP SM LT-100 FDA Start: 11-06-2018 SUTURE,LIGA CLIP MED LT200 FDA Start: 05-29-2019 SUTURE,LIGA CLIP MED LT200 FDA Start: 05-29-2019 SUTURE,LIGA CLIP MED LT200 FDA Start: 05-29-2019 SUTURE,LIGA CLIP SM LT-100 FDA Start: 05-29-2019 SUTURE,LIGA CLIP SM LT-100 FDA Start: 05-29-2019 SUTURE,LIGA CLIP SM LT-100 FDA Start: 05-29-2019 SUTURE,LIGA CLIP SM LT-100 FDA Start: 05-29-2019 Blood Sugar Diagnostic (True Metrix Glucose Test Strip) strip Start: 05-14-2022 Pen Needle, Diabetic (Bd Ultra-Fine Meaghan Pen Needle) 32 gauge x 5/32 needle Start: 10-29-2022 Blood Sugar Diagnostic (True Metrix Glucose Test Strip) strip Start: 03-12-2022 End: 05-14-2022 CATHETER, CVD PLNDRME 19CM FDA Start: 01-14-2018 SUTURE,LIGA CLIP MED LT200 FDA Start: 05-15-2018 SUTURE,LIGA CLIP MED LT200 FDA Start: 05-15-2018 SUTURE,LIGA CLIP SM LT-100 FDA Start: 05-15-2018 SUTURE,LIGA CLIP SM LT-100 FDA Start: 05-15-2018 SUTURE,LIGA CLIP SM LT-100 FDA Start: 05-15-2018 SUTURE,LIGA CLIP SM LT-100 FDA Start: 05-15-2018 CATHETER, CVD PLNDRME 19CM FDA Start: 10-31-2018 SUTURE,LIGA CLIP MED LT200 FDA Start: 10-31-2018 SUTURE,LIGA CLIP MED LT200 FDA Start: 10-31-2018 SUTURE,LIGA CLIP SM LT-100 FDA Start: 10-31-2018 SUTURE,LIGA CLIP SM LT-100 FDA Start: 10-31-2018 SUTURE,LIGA CLIP SM LT-100 FDA Start: 10-31-2018 SUTURE,LIGA CLIP SM LT-100 FDA Start: 10-31-2018 SUTURE,LIGA CLIP SM LT-100 FDA Start: 10-31-2018 SUTURE,LIGA CLIP MED LT200 FDA Start: 11-06-2018 SUTURE,LIGA CLIP MED LT200 FDA Start: 11-06-2018 SUTURE,LIGA CLIP SM LT-100 FDA Start: 11-06-2018 SUTURE,LIGA CLIP SM LT-100 FDA Start: 11-06-2018 SUTURE,LIGA CLIP SM LT-100 FDA Start: 11-06-2018 SUTURE,LIGA CLIP SM LT-100 FDA Start: 11-06-2018 SUTURE,LIGA CLIP MED LT200 FDA Start: 05-29-2019 SUTURE,LIGA CLIP MED LT200 FDA Start: 05-29-2019 SUTURE,LIGA CLIP MED LT200 FDA Start: 05-29-2019 SUTURE,LIGA CLIP SM LT-100 FDA Start: 05-29-2019 SUTURE,LIGA CLIP SM LT-100 FDA Start: 05-29-2019 SUTURE,LIGA CLIP SM LT-100 FDA Start: 05-29-2019 SUTURE,LIGA CLIP SM LT-100 FDA Start: 05-29-2019 Blood Sugar Diagnostic (True Metrix Glucose Test Strip) strip Start: 05-14-2022 Pen Needle, Diabetic (Bd Ultra-Fine Meaghan Pen Needle) 32 gauge x 5/32 needle Start: 10-29-2022 Blood Sugar Diagnostic (True Metrix Glucose Test Strip) strip Start: 03-12-2022 End: 05-14-2022 CATHETER, CVD PLNDRME 19CM FDA Start: 01-14-2018 SUTURE,LIGA CLIP MED LT200 FDA Start: 05-15-2018 SUTURE,LIGA CLIP MED LT200 FDA Start: 05-15-2018 SUTURE,LIGA CLIP SM LT-100 FDA Start: 05-15-2018 SUTURE,LIGA CLIP SM LT-100 FDA Start: 05-15-2018 SUTURE,LIGA CLIP SM LT-100 FDA Start: 05-15-2018 SUTURE,LIGA CLIP SM LT-100 FDA Start: 05-15-2018 CATHETER, CVD PLNDRME 19CM FDA Start: 10-31-2018 SUTURE,LIGA CLIP MED LT200 FDA Start: 10-31-2018 SUTURE,LIGA CLIP MED LT200 FDA Start: 10-31-2018 SUTURE,LIGA CLIP SM LT-100 FDA Start: 10-31-2018 SUTURE,LIGA CLIP SM LT-100 FDA Start: 10-31-2018 SUTURE,LIGA CLIP SM LT-100 FDA Start: 10-31-2018 SUTURE,LIGA CLIP SM LT-100 FDA Start: 10-31-2018 SUTURE,LIGA CLIP SM LT-100 FDA Start: 10-31-2018 SUTURE,LIGA CLIP MED LT200 FDA Start: 11-06-2018 SUTURE,LIGA CLIP MED LT200 FDA Start: 11-06-2018 SUTURE,LIGA CLIP SM LT-100 FDA Start: 11-06-2018 SUTURE,LIGA CLIP SM LT-100 FDA Start: 11-06-2018 SUTURE,LIGA CLIP SM LT-100 FDA Start: 11-06-2018 SUTURE,LIGA CLIP SM LT-100 FDA Start: 11-06-2018 SUTURE,LIGA CLIP MED LT200 FDA Start: 05-29-2019 SUTURE,LIGA CLIP MED LT200 FDA Start: 05-29-2019 SUTURE,LIGA CLIP MED LT200 FDA Start: 05-29-2019 SUTURE,LIGA CLIP SM LT-100 FDA Start: 05-29-2019 SUTURE,LIGA CLIP SM LT-100 FDA Start: 05-29-2019 SUTURE,LIGA CLIP SM LT-100 FDA Start: 05-29-2019 SUTURE,LIGA CLIP SM LT-100 FDA Start: 05-29-2019 Blood Sugar Diagnostic (True Metrix Glucose Test Strip) strip Start: 05-14-2022 Pen Needle, Diabetic (Bd Ultra-Fine Meaghan Pen Needle) 32 gauge x 5/32 needle Start: 10-29-2022 Blood Sugar Diagnostic (True Metrix Glucose Test Strip) strip Start: 03-12-2022 End: 05-14-2022 CATHETER, CVD PLNDRME 19CM FDA Start: 01-14-2018 SUTURE,LIGA CLIP MED LT200 FDA Start: 05-15-2018 SUTURE,LIGA CLIP MED LT200 FDA Start: 05-15-2018 SUTURE,LIGA CLIP SM LT-100 FDA Start: 05-15-2018 SUTURE,LIGA CLIP SM LT-100 FDA Start: 05-15-2018 SUTURE,LIGA CLIP SM LT-100 FDA Start: 05-15-2018 SUTURE,LIGA CLIP SM LT-100 FDA Start: 05-15-2018 CATHETER, CVD PLNDRME 19CM FDA Start: 10-31-2018 SUTURE,LIGA CLIP MED LT200 FDA Start: 10-31-2018 SUTURE,LIGA CLIP MED LT200 FDA Start: 10-31-2018 SUTURE,LIGA CLIP SM LT-100 FDA Start: 10-31-2018 SUTURE,LIGA CLIP SM LT-100 FDA Start: 10-31-2018 SUTURE,LIGA CLIP SM LT-100 FDA Start: 10-31-2018 SUTURE,LIGA CLIP SM LT-100 FDA Start: 10-31-2018 SUTURE,LIGA CLIP SM LT-100 FDA Start: 10-31-2018 SUTURE,LIGA CLIP MED LT200 FDA Start: 11-06-2018 SUTURE,LIGA CLIP MED LT200 FDA Start: 11-06-2018 SUTURE,LIGA CLIP SM LT-100 FDA Start: 11-06-2018 SUTURE,LIGA CLIP SM LT-100 FDA Start: 11-06-2018 SUTURE,LIGA CLIP SM LT-100 FDA Start: 11-06-2018 SUTURE,LIGA CLIP SM LT-100 FDA Start: 11-06-2018 SUTURE,LIGA CLIP MED LT200 FDA Start: 05-29-2019 SUTURE,LIGA CLIP MED LT200 FDA Start: 05-29-2019 SUTURE,LIGA CLIP MED LT200 FDA Start: 05-29-2019 SUTURE,LIGA CLIP SM LT-100 FDA Start: 05-29-2019 SUTURE,LIGA CLIP SM LT-100 FDA Start: 05-29-2019 SUTURE,LIGA CLIP SM LT-100 FDA Start: 05-29-2019 SUTURE,LIGA CLIP SM LT-100 FDA Start: 05-29-2019 Blood Sugar Diagnostic (True Metrix Glucose Test Strip) strip Start: 05-14-2022 Pen Needle, Diabetic (Bd Ultra-Fine Meaghan Pen Needle) 32 gauge x 5/32 needle Start: 10-29-2022 Blood Sugar Diagnostic (True Metrix Glucose Test Strip) strip Start: 03-12-2022 End: 05-14-2022 CATHETER, CVD PLNDRME 19CM FDA Start: 01-14-2018 SUTURE,LIGA CLIP MED LT200 FDA Start: 05-15-2018 SUTURE,LIGA CLIP MED LT200 FDA Start: 05-15-2018 SUTURE,LIGA CLIP SM LT-100 FDA Start: 05-15-2018 SUTURE,LIGA CLIP SM LT-100 FDA Start: 05-15-2018 SUTURE,LIGA CLIP SM LT-100 FDA Start: 05-15-2018 SUTURE,LIGA CLIP SM LT-100 FDA Start: 05-15-2018 CATHETER, CVD PLNDRME 19CM FDA Start: 10-31-2018 SUTURE,LIGA CLIP MED LT200 FDA Start: 10-31-2018 SUTURE,LIGA CLIP MED LT200 FDA Start: 10-31-2018 SUTURE,LIGA CLIP SM LT-100 FDA Start: 10-31-2018 SUTURE,LIGA CLIP SM LT-100 FDA Start: 10-31-2018 SUTURE,LIGA CLIP SM LT-100 FDA Start: 10-31-2018 SUTURE,LIGA CLIP SM LT-100 FDA Start: 10-31-2018 SUTURE,LIGA CLIP SM LT-100 FDA Start: 10-31-2018 SUTURE,LIGA CLIP MED LT200 FDA Start: 11-06-2018 SUTURE,LIGA CLIP MED LT200 FDA Start: 11-06-2018 SUTURE,LIGA CLIP SM LT-100 FDA Start: 11-06-2018 SUTURE,LIGA CLIP SM LT-100 FDA Start: 11-06-2018 SUTURE,LIGA CLIP SM LT-100 FDA Start: 11-06-2018 SUTURE,LIGA CLIP SM LT-100 FDA Start: 11-06-2018 SUTURE,LIGA CLIP MED LT200 FDA Start: 05-29-2019 SUTURE,LIGA CLIP MED LT200 FDA Start: 05-29-2019 SUTURE,LIGA CLIP MED LT200 FDA Start: 05-29-2019 SUTURE,LIGA CLIP SM LT-100 FDA Start: 05-29-2019 SUTURE,LIGA CLIP SM LT-100 FDA Start: 05-29-2019 SUTURE,LIGA CLIP SM LT-100 FDA Start: 05-29-2019 SUTURE,LIGA CLIP SM LT-100 FDA Start: 05-29-2019 Blood Sugar Diagnostic (True Metrix Glucose Test Strip) strip Start: 05-14-2022 Pen Needle, Diabetic (Bd Ultra-Fine Meaghan Pen Needle) 32 gauge x 5/32 needle Start: 10-29-2022 Blood Sugar Diagnostic (True Metrix Glucose Test Strip) strip Start: 03-12-2022 End: 05-14-2022 CATHETER, CVD PLNDRME 19CM FDA Start: 01-14-2018 SUTURE,LIGA CLIP MED LT200 FDA Start: 05-15-2018 SUTURE,LIGA CLIP MED LT200 FDA Start: 05-15-2018 SUTURE,LIGA CLIP SM LT-100 FDA Start: 05-15-2018 SUTURE,LIGA CLIP SM LT-100 FDA Start: 05-15-2018 SUTURE,LIGA CLIP SM LT-100 FDA Start: 05-15-2018 SUTURE,LIGA CLIP SM LT-100 FDA Start: 05-15-2018 CATHETER, CVD PLNDRME 19CM FDA Start: 10-31-2018 SUTURE,LIGA CLIP MED LT200 FDA Start: 10-31-2018 SUTURE,LIGA CLIP MED LT200 FDA Start: 10-31-2018 SUTURE,LIGA CLIP SM LT-100 FDA Start: 10-31-2018 SUTURE,LIGA CLIP SM LT-100 FDA Start: 10-31-2018 SUTURE,LIGA CLIP SM LT-100 FDA Start: 10-31-2018 SUTURE,LIGA CLIP SM LT-100 FDA Start: 10-31-2018 SUTURE,LIGA CLIP SM LT-100 FDA Start: 10-31-2018 SUTURE,LIGA CLIP MED LT200 FDA Start: 11-06-2018 SUTURE,LIGA CLIP MED LT200 FDA Start: 11-06-2018 SUTURE,LIGA CLIP SM LT-100 FDA Start: 11-06-2018 SUTURE,LIGA CLIP SM LT-100 FDA Start: 11-06-2018 SUTURE,LIGA CLIP SM LT-100 FDA Start: 11-06-2018 SUTURE,LIGA CLIP SM LT-100 FDA Start: 11-06-2018 SUTURE,LIGA CLIP MED LT200 FDA Start: 05-29-2019 SUTURE,LIGA CLIP MED LT200 FDA Start: 05-29-2019 SUTURE,LIGA CLIP MED LT200 FDA Start: 05-29-2019 SUTURE,LIGA CLIP SM LT-100 FDA Start: 05-29-2019 SUTURE,LIGA CLIP SM LT-100 FDA Start: 05-29-2019 SUTURE,LIGA CLIP SM LT-100 FDA Start: 05-29-2019 SUTURE,LIGA CLIP SM LT-100 FDA Start: 05-29-2019 Blood Sugar Diagnostic (True Metrix Glucose Test Strip) strip Start: 05-14-2022 Pen Needle, Diabetic (Bd Ultra-Fine Meaghan Pen Needle) 32 gauge x 5/32 needle Start: 01-18-2025 Blood Sugar Diagnostic (True Metrix Glucose Test Strip) strip Start: 03-12-2022 End: 05-14-2022 Pen Needle, Diabetic (Bd Ultra-Fine Meaghan Pen Needle) 32 gauge x 5/32 needle Start: 10-29-2022 End: 01-18-2025 CATHETER, CVD PLNDRME 19CM FDA Start: 01-14-2018 SUTURE,LIGA CLIP MED LT200 FDA Start: 05-15-2018 SUTURE,LIGA CLIP MED LT200 FDA Start: 05-15-2018 SUTURE,LIGA CLIP SM LT-100 FDA Start: 05-15-2018 SUTURE,LIGA CLIP SM LT-100 FDA Start: 05-15-2018 SUTURE,LIGA CLIP SM LT-100 FDA Start: 05-15-2018 SUTURE,LIGA CLIP SM LT-100 FDA Start: 05-15-2018 CATHETER, CVD PLNDRME 19CM FDA Start: 10-31-2018 SUTURE,LIGA CLIP MED LT200 FDA Start: 10-31-2018 SUTURE,LIGA CLIP MED LT200 FDA Start: 10-31-2018 SUTURE,LIGA CLIP SM LT-100 FDA Start: 10-31-2018 SUTURE,LIGA CLIP SM LT-100 FDA Start: 10-31-2018 SUTURE,LIGA CLIP SM LT-100 FDA Start: 10-31-2018 SUTURE,LIGA CLIP SM LT-100 FDA Start: 10-31-2018 SUTURE,LIGA CLIP SM LT-100 FDA Start: 10-31-2018 SUTURE,LIGA CLIP MED LT200 FDA Start: 11-06-2018 SUTURE,LIGA CLIP MED LT200 FDA Start: 11-06-2018 SUTURE,LIGA CLIP SM LT-100 FDA Start: 11-06-2018 SUTURE,LIGA CLIP SM LT-100 FDA Start: 11-06-2018 SUTURE,LIGA CLIP SM LT-100 FDA Start: 11-06-2018 SUTURE,LIGA CLIP SM LT-100 FDA Start: 11-06-2018 SUTURE,LIGA CLIP MED LT200 FDA Start: 05-29-2019 SUTURE,LIGA CLIP MED LT200 FDA Start: 05-29-2019 SUTURE,LIGA CLIP MED LT200 FDA Start: 05-29-2019 SUTURE,LIGA CLIP SM LT-100 FDA Start: 05-29-2019 SUTURE,LIGA CLIP SM LT-100 FDA Start: 05-29-2019 SUTURE,LIGA CLIP SM LT-100 FDA Start: 05-29-2019 SUTURE,LIGA CLIP SM LT-100 FDA Start: 05-29-2019 Blood Sugar Diagnostic (True Metrix Glucose Test Strip) strip Start: 05-14-2022 Pen Needle, Diabetic (Bd Ultra-Fine Meaghan Pen Needle) 32 gauge x 5/32 needle Start: 01-18-2025 Blood Sugar Diagnostic (True Metrix Glucose Test Strip) strip Start: 03-12-2022 End: 05-14-2022 Pen Needle, Diabetic (Bd Ultra-Fine Meaghan Pen Needle) 32 gauge x 5/32 needle Start: 10-29-2022 End: 01-18-2025 CATHETER, CVD PLNDRME 19CM FDA Start: 01-14-2018 SUTURE,LIGA CLIP MED LT200 FDA Start: 05-15-2018 SUTURE,LIGA CLIP MED LT200 FDA Start: 05-15-2018 SUTURE,LIGA CLIP SM LT-100 FDA Start: 05-15-2018 SUTURE,LIGA CLIP SM LT-100 FDA Start: 05-15-2018 SUTURE,LIGA CLIP SM LT-100 FDA Start: 05-15-2018 SUTURE,LIGA CLIP SM LT-100 FDA Start: 05-15-2018 CATHETER, CVD PLNDRME 19CM FDA Start: 10-31-2018 SUTURE,LIGA CLIP MED LT200 FDA Start: 10-31-2018 SUTURE,LIGA CLIP MED LT200 FDA Start: 10-31-2018 SUTURE,LIGA CLIP SM LT-100 FDA Start: 10-31-2018 SUTURE,LIGA CLIP SM LT-100 FDA Start: 10-31-2018 SUTURE,LIGA CLIP SM LT-100 FDA Start: 10-31-2018 SUTURE,LIGA CLIP SM LT-100 FDA Start: 10-31-2018 SUTURE,LIGA CLIP SM LT-100 FDA Start: 10-31-2018 SUTURE,LIGA CLIP MED LT200 FDA Start: 11-06-2018 SUTURE,LIGA CLIP MED LT200 FDA Start: 11-06-2018 SUTURE,LIGA CLIP SM LT-100 FDA Start: 11-06-2018 SUTURE,LIGA CLIP SM LT-100 FDA Start: 11-06-2018 SUTURE,LIGA CLIP SM LT-100 FDA Start: 11-06-2018 SUTURE,LIGA CLIP SM LT-100 FDA Start: 11-06-2018 SUTURE,LIGA CLIP MED LT200 FDA Start: 05-29-2019 SUTURE,LIGA CLIP MED LT200 FDA Start: 05-29-2019 SUTURE,LIGA CLIP MED LT200 FDA Start: 05-29-2019 SUTURE,LIGA CLIP SM LT-100 FDA Start: 05-29-2019 SUTURE,LIGA CLIP SM LT-100 FDA Start: 05-29-2019 SUTURE,LIGA CLIP SM LT-100 FDA Start: 05-29-2019 SUTURE,LIGA CLIP SM LT-100 FDA Start: 05-29-2019 Blood Sugar Diagnostic (True Metrix Glucose Test Strip) strip Start: 05-14-2022 Pen Needle, Diabetic (Bd Ultra-Fine Meaghan Pen Needle) 32 gauge x 5/32 needle Start: 01-18-2025 Blood Sugar Diagnostic (True Metrix Glucose Test Strip) strip Start: 03-12-2022 End: 05-14-2022 Pen Needle, Diabetic (Bd Ultra-Fine Meaghan Pen Needle) 32 gauge x 5/32 needle Start: 10-29-2022 End: 01-18-2025 CATHETER, CVD PLNDRME 19CM FDA Start: 01-14-2018 SUTURE,LIGA CLIP MED LT200 FDA Start: 05-15-2018 SUTURE,LIGA CLIP MED LT200 FDA Start: 05-15-2018 SUTURE,LIGA CLIP SM LT-100 FDA Start: 05-15-2018 SUTURE,LIGA CLIP SM LT-100 FDA Start: 05-15-2018 SUTURE,LIGA CLIP SM LT-100 FDA Start: 05-15-2018 SUTURE,LIGA CLIP SM LT-100 FDA Start: 05-15-2018 CATHETER, CVD PLNDRME 19CM FDA Start: 10-31-2018 SUTURE,LIGA CLIP MED LT200 FDA Start: 10-31-2018 SUTURE,LIGA CLIP MED LT200 FDA Start: 10-31-2018 SUTURE,LIGA CLIP SM LT-100 FDA Start: 10-31-2018 SUTURE,LIGA CLIP SM LT-100 FDA Start: 10-31-2018 SUTURE,LIGA CLIP SM LT-100 FDA Start: 10-31-2018 SUTURE,LIGA CLIP SM LT-100 FDA Start: 10-31-2018 SUTURE,LIGA CLIP SM LT-100 FDA Start: 10-31-2018 SUTURE,LIGA CLIP MED LT200 FDA Start: 11-06-2018 SUTURE,LIGA CLIP MED LT200 FDA Start: 11-06-2018 SUTURE,LIGA CLIP SM LT-100 FDA Start: 11-06-2018 SUTURE,LIGA CLIP SM LT-100 FDA Start: 11-06-2018 SUTURE,LIGA CLIP SM LT-100 FDA Start: 11-06-2018 SUTURE,LIGA CLIP SM LT-100 FDA Start: 11-06-2018 SUTURE,LIGA CLIP MED LT200 FDA Start: 05-29-2019 SUTURE,LIGA CLIP MED LT200 FDA Start: 05-29-2019 SUTURE,LIGA CLIP MED LT200 FDA Start: 05-29-2019 SUTURE,LIGA CLIP SM LT-100 FDA Start: 05-29-2019 SUTURE,LIGA CLIP SM LT-100 FDA Start: 05-29-2019 SUTURE,LIGA CLIP SM LT-100 FDA Start: 05-29-2019 SUTURE,LIGA CLIP SM LT-100 FDA Start: 05-29-2019 Blood Sugar Diagnostic (True Metrix Glucose Test Strip) strip Start: 05-14-2022 Pen Needle, Diabetic (Bd Ultra-Fine Meaghan Pen Needle) 32 gauge x 5/32 needle Start: 01-18-2025 Blood Sugar Diagnostic (True Metrix Glucose Test Strip) strip Start: 03-12-2022 End: 05-14-2022 Pen Needle, Diabetic (Bd Ultra-Fine Meaghan Pen Needle) 32 gauge x 5/32 needle Start: 10-29-2022 End: 01-18-2025 CATHETER, CVD PLNDRME 19CM FDA Start: 01-14-2018 SUTURE,LIGA CLIP MED LT200 FDA Start: 05-15-2018 SUTURE,LIGA CLIP MED LT200 FDA Start: 05-15-2018 SUTURE,LIGA CLIP SM LT-100 FDA Start: 05-15-2018 SUTURE,LIGA CLIP SM LT-100 FDA Start: 05-15-2018 SUTURE,LIGA CLIP SM LT-100 FDA Start: 05-15-2018 SUTURE,LIGA CLIP SM LT-100 FDA Start: 05-15-2018 CATHETER, CVD PLNDRME 19CM FDA Start: 10-31-2018 SUTURE,LIGA CLIP MED LT200 FDA Start: 10-31-2018 SUTURE,LIGA CLIP MED LT200 FDA Start: 10-31-2018 SUTURE,LIGA CLIP SM LT-100 FDA Start: 10-31-2018 SUTURE,LIGA CLIP SM LT-100 FDA Start: 10-31-2018 SUTURE,LIGA CLIP SM LT-100 FDA Start: 10-31-2018 SUTURE,LIGA CLIP SM LT-100 FDA Start: 10-31-2018 SUTURE,LIGA CLIP SM LT-100 FDA Start: 10-31-2018 SUTURE,LIGA CLIP MED LT200 FDA Start: 11-06-2018 SUTURE,LIGA CLIP MED LT200 FDA Start: 11-06-2018 SUTURE,LIGA CLIP SM LT-100 FDA Start: 11-06-2018 SUTURE,LIGA CLIP SM LT-100 FDA Start: 11-06-2018 SUTURE,LIGA CLIP SM LT-100 FDA Start: 11-06-2018 SUTURE,LIGA CLIP SM LT-100 FDA Start: 11-06-2018 SUTURE,LIGA CLIP MED LT200 FDA Start: 05-29-2019 SUTURE,LIGA CLIP MED LT200 FDA Start: 05-29-2019 SUTURE,LIGA CLIP MED LT200 FDA Start: 05-29-2019 SUTURE,LIGA CLIP SM LT-100 FDA Start: 05-29-2019 SUTURE,LIGA CLIP SM LT-100 FDA Start: 05-29-2019 SUTURE,LIGA CLIP SM LT-100 FDA Start: 05-29-2019 SUTURE,LIGA CLIP SM LT-100 FDA Start: 05-29-2019 Blood Sugar Diagnostic (True Metrix Glucose Test Strip) strip Start: 05-14-2022 Pen Needle, Diabetic (Bd Ultra-Fine Meaghan Pen Needle) 32 gauge x 5/32 needle Start: 01-18-2025 Blood Sugar Diagnostic (True Metrix Glucose Test Strip) strip Start: 03-12-2022 End: 05-14-2022 Pen Needle, Diabetic (Bd Ultra-Fine Meaghan Pen Needle) 32 gauge x 5/32 needle Start: 10-29-2022 End: 01-18-2025 Goals Date Patient Goal Desired Activity /State Personal health goal Functional Status Date Assessment Result Facility 05-03-2022 Functional status Ambulates;Up ad maria de jesus [facility] Work Phone: 04-10-2022 Functional status Ambulates [facility] Work Phone: 08-06-2018 Are you deaf, or do you have serious difficulty hearing No 08/06/2018 3:42 PM Ed Rojas APRN.DEMURRAGE CLERK No [facility] Work Phone: 08-06-2018 Are you blind, or do you have serious difficulty seeing, even when wearing glasses No 08/06/2018 3:42 PM Ed Rojas APRN.DEMURRAGE CLERK No [facility] 08-06-2018 Do you have serious difficulty walking or climbing stairs No 08/06/2018 3:42 PM Ed Rojas APRN.IMAN No [facility] 08-06-2018 Do you have difficul ty dressing or bathing No 08/06/2018 3:42 PM Ed Rojas APRN.DEMURRAGE CLERK No [facility] 08-06-2018 Because of a physica l, mental, or emotional condition, do you have difficulty doing errands alone such as visiting a physician's office or shopping No 08/06/2018 3:42 PM Ed Rojas APRN.DEMURRAGE CLERK No [facility] Mental Status Date Assessment Result Facility 10-24-2023 Cognitive function Awake;Alert;A ppropriate; Follows Commands [facility] Work Phone: 03-05-2023 Cognitive function Voice/Name [facility] Work Phone: 05-03-2022 Cognitive function Voice/Name [facility] Work Phone: 04-10-2022 Cognitive function Voice/Name [facility] Work Phone: 08-06-2018 Because of a physica l, mental, or emotional condition, do you have serious difficulty concentrating, remembering, or making decisions No 08/06/2018 3:42 PM Ed Rojas APRN.DEMURRAGE CLERK No [facility] Clinical Notes 08-03-2018 to 05-07-2025 Telephone Encounter - Adwoa Reveles MA - 05/07/2025 10:22 AM EDTTelephone Encounter - Adwoa Reveles MA - 05/07/2025 10:22 AM EDT Note Date & Type Note Facility 05-07-2025 Telephone encount er Note Order has been fax back to alicia along with electronically signed note [facility] 05-07-2025 Miscellaneous Notes Formattin g of this note might be different from the original. Order has been fax back to alicia along with electronically signed note Received freshaire prescription of medical necessity for CPAP needs signed and fax back to [phone] documented in this encounter [facility] 05-05-2025 Telephone encount er Note Received freshaire prescription of medical necessity for CPAP needs signed and fax back to [phone] [facility] 02-11-2025 Evaluation note Diagnosis Onset Date Resolution Chronic kidney disease chronic [facility] 2024 11:35am Diabetes chronic February 11 11:35am Essential hypertension chronic [facility] 2024 11:35am Hyperlipidemia chronic January 11:35am Hypothyroidism chronic January 11:35am Microalbuminuria chronic February 112024 11:35am Obesity (BMI 30.0-34.9) chronic [facility] 2024 11:35am Osteoporosis chronic February 11, 2025 11:35am Vitamin D deficiency chronic [facility] 2024 11:35am Bacterial URI acute February 20, 2025 11:19am Hypertension chronic February 20, 2025 11:19am Nocturnal hypoxemia acute March 252024 9:34am Asthmatic bronchitis with exacerbation chronic April 07, 2025 9:34am DAVID (obstructive sleep apnea) chronic April 07, 2025 9:34am Coronary artery calcification seen on CAT scan acute May 18, 2025 2:38pm Essential hypertension chronic [facility] 2024 2:38pm Heart murmur chronic May 18 025 2:38pm Hyperlipidemia chronic May 18, 2025 2:38pm [facility] Work Phone: 1(581) 266-759103-19-2025 Radiology Diagnostic study note [facility] Imaging Services [address] [place] [address] Chest without Contrast MR#: [id number] Acct: [id number] Name: ROBERT MCCRARY Rep #: [id number] : 1960 M 64 From: Shira Wakefield MD PCP: Dr. Marques Casanvoa MD Status: RE G CLI Study:Chest without Contrast Date of Exam: 02/10/25 Exam# [id number] Ordering Dr: Chikis Jacobson [employer] PROCEDURE: CHEST WITHOUT CONTRAST ([facility]), 02/10/2025 REASON FOR EXAM: SHORTNESS OF BREATH TECHNIQUE: CT chest was performed in prone positioning without IV contrast. Multiplanar reformats were generated. RADIATION DOSE SUMMARY: CTDlvol: 18.71 mGy DLP: 778.48 mGycm One or more dose reduction techniques were used (e.g., Automated exposure control, adjustment of the mA and/or kV according to patient size, use of iterative reconstruction technique). COMPARISON: No prior CT chest FINDINGS: Note that evaluation of the vasculature, kieran, and soft tissues is limited in the absence of IV contrast. Mild motion limitation. Heart/pericardium: Severe three-vessel coronary atherosclerosis and/or stents. Aortic and mild mitral annular calcification. Aorta: Mild/moderate calcific atherosclerosis. Pulmonary arteries: Mildly enlarged central pulmonary arteries which may indicate pulmonary arterial hypertension. Lymph nodes: No overt thoracic lymphadenopathy evident in the absence of IV contrast. Mild mediastinal lipomatosis. Lungs/pleura: Mild lingular and RIGHT middle lobe likely atelectasis/scarring. Suspected punctate calcified granuloma in the LEFT lower lobe. No significant architectural distortion, appreciable honeycombing, ground-glass abnormality, or reticulation. Airways: Unremarkable. No bronchiectasis Chest wall: Unremarkable. Upper abdomen: Cholelithiasis. Atrophic end-stage appearance of the kidneys. Musculoskeletal: Mild spondylosis. Numerous old LEFT rib fractures. CT/Chest without Contrast IMPRESSION: 1. No acute noncontrast findings. 2. Additional description as above. Reading Location: [id number] CC: Dr. Marques Casanova MD; Chikis Jacobson NP ~ Member Of Congress: Signed [facility]02-28-2025 [id number] (AGENT OF COVID-19) RNA: Not detected INFLUENZA A RNA: Not detected INFLUENZA B RNA: Not detected RESPIRATORY SYNCYTIAL VIRUS (RSV) RNA: Not detectedRegional Medical CenterComment on above:Performed By: #### [id number] #### [facility] CLIA [id number] [address] [place] [address] [id number] NoteHNO ID: [id number] Author: JARAD CHAMPION APRN.DEMURRAGE CLERK Service: ? Author Type: Nurse Practitioner Type: Progress Notes Filed: 01/23/2025 08:09 Note Text: Subjective HPI Nontoxic-appearing 64-year-old male presents urgent care chief complaint flulike symptoms. Duration symptoms today. Associated symptoms fever vomiting body aches chills fatigue. States symptoms started abruptly. 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 OTC medications none recently. States he did vomit 1 time today. No blood. Is able to stay hydrated. Denies any chest pain shortness of breath or hemoptysis. Risk factors renal transplant patient. On immunosuppressive medications. .Patient presents with: Flu Like Symptoms: Fever, vomiting, diarrhea, chills x today PAST MEDICAL HISTORY Diagnosis Date Anemia Depression DM (diabetes mellitus) (HCC) ESRD (end stage renal disease) (HCC) HTN (hypertension) Hyperlipidemia Hyperparathyroidism due to renal insufficiency (HCC) Hyperphosphatemia Hypothyroid Iron deficiency Vitamin D deficiency PAST SURGICAL HISTORY Procedure Laterality Date FISTULA HERNIA REPAIR HX 1983 inguinal RPR UMBILICAL HRNA 5 YRS/> REDUCIBLE 11/19/12 with mesh ALLERGIES Losartan MEDICATIONS atorvastatin (LIPITOR) 40 mg tablet calcitriol (ROCALTROL) 0.25 mcg capsule carvedilol (COREG) 12.5 mg tablet Take 12.5 mg by mouth. denosumab (PROLIA) 60 mg/mL Inject 60 mg subcutaneously. mycophenolate sodium DR (MYFORTIC) 180 mg EC tablet predniSONE (DELTASONE) 5 mg tablet Take 1 tablet by mouth once daily. tacrolimus ER (ENVARSUS XR) 0.75 mg tablet Take 1 tablet by mouth once daily. torsemide (DEMADEX) 20 mg tablet CPAP/BIPAP/OTHER Supplies: Settings IPAP 16, EPAP 10, PS 6 cm H2O, suitable mask per pt preference, chin strap, head gear, humidity, tubing, lifetime supplies. G47.33 DAVID citalopram (CELEXA) 40 mg tablet Take 40 mg by mouth once daily. pantoprazole DR (PROTONIX) 40 mg tablet Take 40 mg by mouth once daily. hydrALAZINE (APRESOLINE) 25 mg tablet Take 25 mg by mouth three times daily. amLODIPine (NORVASC) 10 mg tablet Take 10 mg by mouth once daily. SIMVASTATIN 20 mg tablet once daily. (Patient not taking: Reported on 06/17/2023) SYNTHROID 150 mcg tablet 175 mcg once daily. FAMILY HISTORY Problem Relation Age of Onset Alcohol/Drug Sister Stroke Father Heart Father Colon Cancer Father Diabetes Mother Hypertension Mother Arthritis Mother Social History Tobacco Use Smoking status: Never Smokeless tobacco: Current Types: Snuff Substance Use Topics Alcohol use: No Comment: 1/month Review of Systems Constitutional: Positive for chills, fever and malaise/fatigue. HENT: Negative for congestion, ear discharge, ear pain, sinus pain and sore throat. Eyes: Negative for blurred vision, pain, discharge and redness. Respiratory: Positive for cough. Negative for hemoptysis, sputum production, shortness of breath, wheezing and stridor. Cardiovascular: Negative for chest pain. Gastrointestinal: Positive for nausea and vomiting. Negative for abdominal pain and diarrhea. Musculoskeletal: Positive for myalgias. Skin: Negative for itching and rash. Neurological: Positive for headaches. Negative for dizziness. Objective Physical Exam Constitutional: General: He is not in acute distress. Appearance: He is not diaphoretic. HENT: Head: Normocephalic. Jaw: No trismus, tenderness, swelling or pain on movement. Nose: Congestion present. Mouth/Throat: Mouth: Mucous membranes are moist. Pharynx: Oropharynx is clear. Uvula midline. No pharyngeal swelling, oropharyngeal exudate, posterior oropharyngeal erythema or uvula swelling. Eyes: Conjunctiva/sclera: Conjunctivae normal. Pupils: Pupils are equal, round, and reactive to light. Cardiovascular: Rate and Rhythm: Normal rate and regular rhythm. Heart sounds: Normal heart sounds. Pulmonary: Effort: Pulmonary effort is normal. No tachypnea, accessory muscle usage or respiratory distress. Breath sounds: Normal breath sounds. No stridor. No wheezing, rhonchi or rales. Abdominal: General: There is no distension. Palpations: Abdomen is soft. Tenderness: There is no abdominal tenderness. There is no guarding or rebound. Musculoskeletal: Cervical back: Normal range of motion and neck supple. No edema, erythema, rigidity or tenderness. No pain with movement. Normal range of motion. Lymphadenopathy: Cervical: No cervical adenopathy. Skin: General: Skin is warm and dry. Neurological: Mental Status: He is alert and oriented to person, place, and time. ASSESSMENT/PLAN: 1. Fever, unspecified fever cause - ICD9: 780.60, ICD10: R50.9 (primary diagnosis) - INFLUENZA AANDB MOLECULAR (POC) - COVID AND INFLUENZA A/B AND RSV PCR, ROUTINE - XR CHEST 2V FRONTAL/LAT 2. Viral illness - ICD9: 079.99, ICD10: B34.9 - COVID AND INFLUENZA A/B AND RSV PCR, ROUTINE 3. Acute cough - ICD9: 786 (more content not included)...[facility] of Present illness Narrative* Jarad Champion APRN.[facility] - 01/22/2025 7:35 PM EST Subjective HPI Nontoxic-appearing 64-year-old male presents urgent care chief complaint flulike symptoms. Durationsymptoms today. Associated symptoms fever vomiting body aches chills fatigue. States symptoms started abruptly. 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 OTC medications none recently. States he did vomit 1 time today. No blood. Is able to stay hydrated. Denies any chest pain shortness of breath or hemoptysis. Risk factors renal transplant patient. On immunosuppressive medications. .Patient presents with: Flu Like Symptoms: Fever, vomiting, diarrhea, chills x today PAST MEDICAL HISTORY Diagnosis Date Anemia Depression DM (diabetes mellitus) (HCC) ESRD (end stage renal disease) (HCC) HTN (hypertension) Hyperlipidemia Hyperparathyroidism due to renal insufficiency (HCC) Hyperphosphatemia Hypothyroid Iron deficiency Vitamin D deficiency PAST SURGICAL HISTORY Procedure Laterality Date FISTULA HERNIA REPAIR HX 1983 inguinal RPR UMBILICAL HRNA 5 YRS/> REDUCIBLE 11/19/12 with mesh ALLERGIES Losartan MEDICATIONS atorvastatin (LIPITOR) 40 mg tablet calcitriol (ROCALTROL) 0.25 mcg capsule carvedilol (COREG) 12.5 mg tablet Take 12.5 mg by mouth. denosumab (PROLIA) 60 mg/mL Inject 60 mg subcutaneously. mycophenolate sodium DR (MYFORTIC) 180 mg EC tablet predniSONE (DELTASONE) 5 mg tablet Take 1 tablet by mouth once daily. tacrolimus ER (ENVARSUS XR) 0.75 mg tablet Take 1 tablet by mouth once daily. torsemide (DEMADEX) 20 mg tablet CPAP/BIPAP/OTHER Supplies: Settings IPAP 16, EPAP 10, PS 6 cm H2O, suitable mask per pt preference,chin strap, head gear, humidity, tubing, lifetime supplies. G47.33 DAVID citalopram (CELEXA) 40 mg tablet Take 40 mg by mouth once daily. pantoprazole DR (PROTONIX) 40 mg tablet Take 40 mg by mouth once daily. hydrALAZINE (APRESOLINE) 25 mg tablet Take 25 mg by mouth three times daily. amLODIPine (NORVASC) 10 mg tablet Take 10 mg by mouth once daily. SIMVASTATIN 20 mg tablet once daily. (Patient not taking: Reported on 06/17/2023) SYNTHROID 150 mcg tablet 175 mcg once daily. FAMILY HISTORY Problem Relation Age of Onset Alcohol/Drug Sister Stroke Father Heart Father Colon Cancer Father Diabetes Mother Hypertension Mother Arthritis Mother Social History Tobacco Use Smoking status: Never Smokeless tobacco: Current Types: Snuff Substance Use Topics Alcohol use: No Comment: 1/month Review of Systems Constitutional: Positive for chills, fever and malaise/fatigue. HENT: Negative for congestion, ear discharge, ear pain, sinus pain and sore throat. Eyes: Negative for blurred vision, pain, discharge and redness. Respiratory: Positive for cough. Negative for hemoptysis, sputum production, shortness of breath, wheezing and stridor. Cardiovascular: Negative for chest pain. Gastrointestinal: Positive for nausea and vomiting. Negative for abdominal pain and diarrhea. Musculoskeletal: Positive for myalgias. Skin: Negative for itching and rash. Neurological: Positive for headaches. Negative for dizziness. Objective Physical Exam Constitutional: General: He is not in acute distress. Appearance: He is not diaphoretic. HENT: Head: Normocephalic. Jaw: No trismus, tenderness, swelling or pain on movement. Nose: Congestion present. Mouth/Throat: Mouth: Mucous membranes are moist. Pharynx: Oropharynx is clear. Uvula midline. No pharyngeal swelling, oropharyngeal exudate, posterior oropharyngeal erythema or uvula swelling. Eyes: Conjunctiva/sclera: Conjunctivae normal. Pupils: Pupils are equal, round, and reactive to light. Cardiovascular: Rate and Rhythm: Normal rate and regular rhythm. Heart sounds: Normal heart sounds. Pulmonary: Effort: Pulmonary effort is normal. No tachypnea, accessory muscle usage or respiratory distress. Breath sounds: Normal breath sounds. No stridor. No wheezing, rhonchi or rales. Abdominal: General: There is no distension. Palpations: Abdomen is soft. Tenderness: There is no abdominal tenderness. There is no guarding or rebound. Musculoskeletal: Cervical back: Normal range of motion and neck supple. No edema, erythema, rigidity or tenderness. No pain with movement. Normal range of motion. Lymphadenopathy: Cervical: No cervical adenopathy. Skin: General: Skin is warm and dry. Neurological: Mental Status: He is alert and oriented to person, place, and time. ASSESSMENT/PLAN: 1. Fever, unspecified fever cause - ICD9: 780.60, ICD10: R50.9 (primary diagnosis) - INFLUENZA A&B MOLECULAR (POC) - COVID & INFLUENZA A/B & RSV PCR, ROUTINE - XR CHEST 2V FRONTAL/LAT 2. Viral illness - ICD9: 079.99, ICD10: B34.9 - COVID & INFLUENZA A/B & RSV PCR, ROUTINE 3. Acute cough - ICD9: 786.2, ICD10: R05.1 - XR CHEST 2V FRONTAL/LAT POC flu invalid. COVID RSV influenza sent to lab. If positive is a candidate for antiviral therapies due to immunosuppression medication. Return tomorrow for chest x-ray. If fever persist COVID influenza RSV negative recommended following up for reevaluation with PCP or contacting transplant team. Patient was educated on supportive therapies. Patient will follow up with primary care provider as needed. Patient was instructed to immediately proceed to emergency room for any new, worsening, or symptoms lasting longer than anticipated. The patient's clinical presentation is otherwise unremarkable at this time. Based on exam and clinical finding, the patient is stable for discharge. Plan of care was discussed with patient. Patient verbalizes understanding and agrees to plan of care. This notewas generated using [employer] software. It may contain errors in wording, punctuation, or spelling. Jarad Champion APRN.IMAN documented [facility] Evaluation note* Diagnosis Onset Date Resolution Status Admit Date Nocturnal hypoxemia acute Febru 2024 9:41am Asthmatic bronchitis with exacerbation chronic January 20 9:41am DAVID (obstructive sleep apnea) chroni c January 20, 2025 9:41am Chronic kidney disease chronic [facility] 2024 11:35am Diabetes chronic February 11 11:35am Essential hypertension [facility] 2024 11:35am Hyperlipidemia chronic January 11:35am Hypothyroidism chronic January 11:35am Microalbuminuria chronic February 112024 11:35am Obesity (BMI 30.0-34.9) [facility] 2024 11:35am Osteoporosis chronic February 11, 2025 11:35am Vitamin D deficiency [facility] 2024 11:35am Bacterial URI acute February 20, 2025 11:19am Hypertension chronic February 20, 2025 11:19am Nocturnal hypoxemia acute March 252024 9:34am Asthmatic bronchitis with exacerbation chronic April 07, 2025 9 :34am DAVID (obstructive sleep apnea) chroni c April 07, 2025 9:34am [facility] Work Phone: 1(493) 407-609702-26-2025 Evaluation note* Diagnosis Onset Date Resolution Status Admit Date Nocturnal hypoxemia acute Febru 2024 9:41am Asthmatic bronchitis with exacerbation chronic January 20 9:41am DAVID (obstructive sleep apnea) chroni c January 20, 2025 9:41am Chronic kidney disease chronic [facility] 2024 11:35am Diabetes chronic February 11 11:35am Essential hypertension chronic [facility] 2024 11:35am Hyperlipidemia chronic January 11:35am Hypothyroidism chronic January 11:35am Microalbuminuria chronic February 112024 11:35am Obesity (BMI 30.0-34.9) chronic [facility] 2024 11:35am Osteoporosis chronic February 11, 2025 11:35am Vitamin D deficiency chronic [facility] 2024 11:35am Bacterial URI acute February 20, 2025 11:19am Hypertension chronic February 20, 2025 11:19am Nocturnal hypoxemia acute March 252024 9:34am Asthmatic bronchitis with exacerbation chronic April 07, 2025 9 :34am DAVID (obstructive sleep apnea) chroni c April 07, 2025 9:34am Coronary artery calcificatio n seen on CAT scan acute May 18, 2025 2:38pm Essential hypertension chronic 2024 2:38pm Heart murmur chronic May 18, 025 2:38pm Hyperlipidemia chronic May 18, 2025 2:38pm [facility] Work Phone: 1(997) 363-680401-24-2025 Evaluation note* Diagnosis Onset Date Resolution Status Admit Date Essential hypertension chronic [facility] 2024 10:20am Heart murmur chronic November 10:20am Hyperlipidemia chronic December 182024 10:20am Nocturnal hypoxemia acute 2024 9:41am Asthmatic bronchitis with exacerbation chronic January 20, 025 9:41am DAVID (obstructive sleep apnea) chroni c January 20, 2025 9:41am Chronic kidney disease chronic [facility] 2024 11:35am Diabetes chronic February 11 11:35am Essential hypertension chronic [facility] 2024 11:35am Hyperlipidemia chronic January 11:35am Hypothyroidism chronic January 11:35am Microalbuminuria chronic February 112024 11:35am Obesity (BMI 30.0-34.9) chronic [facility] 2024 11:35am Osteoporosis chronic February 11, 2025 11:35am Vitamin D deficiency chronic [facility] 2024 11:35am Bacterial URI acute February 20, 2025 11:19am Hypertension chronic February 20, 2025 11:19am Nocturnal hypoxemia acute March 252024 9:34am Asthmatic bronchitis with exacerbation chronic April 07, 2025 9 :34am DAVID (obstructive sleep apnea) chroni c April 07, 2025 9:34[address] [facility] Work Phone: 1(333) 918-512112-20-2024 History of Present illness Narrative* Grace Reveles, TRAVELING REPAIR ACCOUNTANT-DEMURRAGE CLERK - 11/13/2024 11:30 AM EST Images from the original note were not included. Robert Mccrary is a 64 y.o. 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 The HLA mismatch was 2A, 2B, 1DR. No longer follows with a local passenger representative. History of Present Illness: Since Robert was most recently evaluated in clinic on 09/23/2023, he has not had any hospitalizations, surgeries, or infections. Notable(s) since transplant: Acceptance of kidney from donor Hepatitis C LUIS + BK noted 08/22/2020, max 494,740; not detected 01/30/2021 Low level CMV Review of Systems Constitutional: negative for fever or fatigue Cardiovascular: negative shortness of breath on exertion or swelling +wheezing cough for about a month. 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 Body mass index is 32.83 kg/m . Cardiovascular: no swelling, RRR Pulmonary: CTA Neuro: no gross focal neurological deficit Allergies: Allergies Allergen Reactions Losartan Hives Mircera [Methoxy Polyethylene Glycol-Epoetin Beta] Pain Back pain Medications: Current Outpatient Medications Medication Sig amLODIPine 10 MG tablet Atorvastatin 40 MG tablet Take 1 tablet by mouth daily. calcitRIOL 0.25 MCG capsule Take 1 capsule by mouth daily. Obtain one year prescription at your next clinic appointment. carveDILOL 12.5 MG tablet Take 1 tablet by mouth 2 times daily with meals. citalopram 40 MG Tab Take 1 tablet by mouth daily. dapagliflozin (Farxiga) 10 MG tablet Take 1 tablet by mouth daily. denosumab (PROLIA) 60 MG/ML SOSY injection Inject 1 mL under the skin once. Dulaglutide (TRULICITY SC) Inject 0.75 mg under the skin once a week. hydrALAZINE 25 MG tablet Take 1 tablet by mouth 2 times daily. PCP/passenger representative will follow up future prescriptions for non-transplant medications. insulin detemir 100 UNIT/ML Solution Pen-injector injection Inject 10 Units under the skin at bedtime. Or as instructed by your PCP. (Patient taking differently: Inject 16 Units under the skin at bedtime. Or as instructed by your PCP.) levothyroxine 175 MCG tablet Take 1 tablet by mouth daily every morning. Mycophenolate sodium (MYFORTIC) [address] Take 2 tablets by mouth every 12 hours. pantoprazole [address] tablet DR Take 1 tablet by mouth daily. predniSONE 5 MG tablet Take 1 tablet by mouth daily. Tacrolimus (ENVARSUS XR) 0.75 MG tablet XR Take 1 tablet by mouth daily. Labs: Lab Results Component Value Date WBC 14.7 08/10/2024 HGB 15.7 08/10/2024 HCT 50.8 08/10/2024 PLATELET 208 08/10/2024 Lab Results Component Value Date SODIUM 137 08/10/2024 CHLORIDE 105 08/10/2024 BUN 29 08/10/2024 POTASSIUM 4.0 08/10/2024 CREATSERUM 2.02 08/10/2024 GLUCOSE 125 08/10/2024 Prot/Creat Ratio Date Value Ref Range Status 10/21/2023 0.316 mg/mg Final Lab Results Component Value Date TACROLIMUS 5.6 08/10/2024 Care Everywhere Review 11/10/2024 Sodium 141 mmol/L Potassium 3.7 mmol/L Carbon dioxide 23 mmol/L Creatinine 2.05 mg/dL Calcium 9.5 mg/dL WBC 11.5 10*3/uL Hgb 15.2 g/dL Creatinine over the past 2 year(s): Current Immunosuppressive Medication(s) Immunosuppressive Agents Mycophenolate sodium (MYFORTIC) [address] Take 2 tablets by mouth every 12 hours. Tacrolimus (ENVARSUS XR) 0.75 MG tablet XR Take 1 tablet by mouth daily. His insurance will stay the same, but his copay for medications is going to increase 11/25/2024. He doesn't want to make any changes now, but he may be calling in December 2024 to make the changes. Discuss with OTTONIEL Zarate if would be cheaper for mycophenolate 360 mg twice daily, mycophenolate 500 mg twice daily, or continue his current prescriptions of taking two 180 mg tablets twice daily. He was started on Envarsus 02/02/2022 because on tacrolimus 0.5 mg twice daily, his level remained above goal. May try to change Envarsus back to tacrolimus and check a level a week later. Assessment and Recommendations Kidney transplant function- Stable Tacrolimus - no change in dose; goal 4 to 6 ng/dL Mycophenolate - no change No longer taking prophylaxis for pneumocystis jiroveci pneumonia (PJP) Essential Hypertension - controlled ANCA vasculitis - follows with rheumatology, prednisone 5 mg daily Glycemic Control - diabetes mellitus type II - HgbA1c 7.3% on 11/12/2024 Prescriptions for immunosuppression medications were sent electronically and labs were ordered. Mr. Mccrary has been asked to return to the clinic in 1 year and labs to be drawn every 3 month(s) however we will see the patient earlier should the need arise. The data reviewed and analyzed for the above problems included medical records and lab results. Grace Reveles MSN, RN, TRAVELING REPAIR ACCOUNTANT-BC, CCTN Certified Nurse Practitioner [facility] [address] [facility] [id number] documented in this encounterMiami [facility]12-20-2024 Instructions* Patient Instructions* JONES Samayoa - 11/13/2024 11:30 AM EST No change in immunosuppression. documented in this [facility]12-19-2024 Evaluation note * Diagnosis Onset Date Resolution Status Admit Date Diabetes chronic November 12, 2024 11:41am Essential hypertension chronic De cember 2023 11:41am Hyperlipidemia chronic October 252023 11:41am Hyperparathyroidism chronic Decem aleah 2023 11:41am Hypothyroidism chronic October 252023 11:41am Microalbuminuria chronic November 12, 2024 11:41am Obesity (BMI 30.0-34.9) chronic D ecember 2023 11:41am Osteoporosis chronic October 11:41am Vitamin D deficiency chronic Dece mber 2023 11:41am Nocturnal hypoxemia acute Janua 2024 9:08am Asthmatic bronchitis with exacerbation chronic November 26 9:08am DAVID (obstructive sleep apnea) chroni c November 26, 2024 9:08am Essential hypertension chronic Ja nuary 2024 10:20am Heart murmur chronic November 10:20am Hyperlipidemia chronic December 182024 10:20am Nocturnal hypoxemia acute Febru jaime 2024 9:41am Asthmatic bronchitis with exacerbation chronic January 20, 9:41am DAVID (obstructive sleep apnea) chroni c January 20, 2025 9:41am Chronic kidney disease chronic [facility] 2024 11:35am Diabetes chronic February 11 11:35am Essential hypertension chronic [facility] 2024 11:35am Hyperlipidemia chronic January 11:35am Hypothyroidism chronic January 11:35am Microalbuminuria chronic February 112024 11:35am Obesity (BMI 30.0-34.9) chronic [facility] 2024 11:35am Osteoporosis chronic February 11, 2025 11:35am Vitamin D deficiency chronic [facility] 2024 11:35am [facility] Work Phone: 1(106) 636-961011-19-2024 History of Present illness Narrative* Phyllis Rodriguez - 10/13/2024 9:37 AM EST [facility] RX OUTREACH ADVANC[facility]: Shipping/Pickup: Patient has affirmed needing a refill of the following medications for Ship : Med Name: Myco sod 180mg Contact Info: Specialty ([place]) [phone] [facility] [phone] [facility] [phone] T[facility] [phone] Bedside Delivery ([facility]) [phone] documented in this encounterMiami [facility] Hospital10-22-2024 History of Present illness Narrative* Donna Villarreal - 09/15/2024 9:25 AM EDT [facility]RE[facility]: Call Information: Date and Time of Contact: 09/15/2024 9:26 AM Method of Contact: By Phone Contact Type: Prescriptions Contactor: Patient Contactee: [facility] OP Shipping/Pickup: Medicare B Refill?: No Medication Name: Envarsus XR 0.75mg tabs, Mycophenolate 180 mg tabs Delivery Method: Ship Delivery Location: Home Signature Required: No Receive/Pickup Date: 09/17/2024 Shipping Address: [address] [place] [address] Contact Info: Specialty ([place]) [phone] [facility] [phone] [facility] [phone] Tani [phone] Bedside Delivery ([facility]) [phone] * Cele Souza [facility] - 09/15/2024 9:25 AM EDT [facility]REACH [facility]: Pre-Verification/Specialty Assessment/Disease Mgt: Medication(s) Name: Tacrolimus and mycophenolate Lab Review: CBC w/diff, Drug level and Chem 6 (with GFR) Assessment type (Select either Initial or Re-Assessment): Re-Assessment Specialty Assessment Review: Name, Age, Sex Demographics Therapeutic Goals Pertinent Medical History Adverse Effects with Enrolled (and related) Medications Recent Labs Medications (dose, route, frequency, and interactions) Allergies Patient Comprehension Appropriate Use Adherence Specialty Medication Management Financial Resources Health Problems/Diagnoses Care Plan Activities Completed: Updated Assessment Findings: Patient is 64 year old male who is s/p kidney transplant on 07/17/20. Current IS meds: Envarsus 0.75mg daily Mycophenolate 360mg BID Prednisone 5mg daily Most recent labs: 08/10/24 Most recent transplant appointment:07/22/24 Next scheduled transplant appointment:10/16/24 No adherence, safety, or efficacy issues identified. Monitoring Parameter Review: Within normal limits Contact Info: Specialty ([place]) [phone] [place] [phone] [facility] [phone] Tani [phone] Bedside Delivery ([facility]) [phone] documented in this encounterOS[facility] Telephone encounter Note* Telephone Encounter - Yasmeen Mcintosh OCCA - 06/15/2024 2:04 PM EDT Faxed signed CPAP Rx and e-signed office note to Alicia Junior at [phone]. [facility] Miscellaneous Notes* Telephone Encounter - Yasmeen Mcintosh OCCA - 06/15/2024 2:04 PM EDT Faxed signed CPAP Rx and e-signed office note to Alicia Junior at [phone]. documented in this encounterGenesis Hospital07-19-2024 Telephone encounter Note * Telephone Encounter - Yasmeen Mcintosh OCCA - 06/12/2024 10:41 AM EDT Received faxed CPAP order and signed office note request from Alicia. Placed on Shell's desk for review and signature. [facility]07-19-[facility] Miscellaneous Notes* Telephone Encounter - Yasmeen Mcintosh OCCA - 06/12/2024 10:41 AM EDT Received faxed CPAP order and signed office note request from Alicia. Placed on Shell's desk for review and signature. documented in this encounterGenesis Hospital06-07-2024 History of Present illness Narrative* Linda Jimenez - 05/01/2024 11:39 AM EDT [facility]: Call Information: Date and Time of Contact: 05/01/2024 11:41 AM Method of Contact: By Phone Contact Type: Prescriptions Contactor: [facility] Contactee: Patient Contact Outcome: Unable to leave message and Follow-up Shipping/Pickup: Medication Name: Envarsus 0.75mg, mycophenolate 180mg Contact Info: Specialty ([place]) [phone] [facility] [phone] [facility] [phone] Tani [phone] Bedside Delivery ([facility]) [phone] * Tamera Schulz - 05/01/2024 11:39 AM EDT [facility]REACH [facility]: Call Information: Date and Time of Contact: 05/05/2024 2:29 PM Method of Contact: By Phone Contact Type: Prescriptions Contactor: [facility] OP Contactee: Patient Shipping/Pickup: Medicare B Refill?: No Medication Name: Mycophenolate 180mg Delivery Method: Ship Delivery Location: Home Signature Required: No Receive/Pickup Date: 05/08/2024 Shipping Address: [address] [place] [address] Contact Info: Specialty ([place]) [phone] [facility] [phone] [facility] [phone] [facility] [phone] Bedside Delivery ([facility]) [phone] * Tamera Schulz - 05/01/2024 11:39 AM EDT [facility]REACH [facility]: Call Information: Date and Time of Contact: 05/05/2024 2:36 PM Method of Contact: By Phone Contact Type: Prescriptions Contactor: [facility] Contactee: Patient Contact Outcome: Patient declined to fill and Follow-up Patient Declined Fill Detail/Reason: Patient thinks he has between 2-3 weeks on hand. Will follow up next week. Shipping/Pickup: Medication Name: Envarsus XR 0.75mg Contact Info: Specialty ([place]) [phone] [facility] [phone] [facility] [phone] [facility] [phone] Bedside Delivery ([facility]) [phone] documented in this encounterMiami [facility] Hospital06-07-2024 History of Present illness Narrative* Linda Jimenez - 05/01/2024 11:39 AM EDT [facility] OUTREACH ADVANCED: Call Information: Date and Time of Contact: 05/01/2024 11:41 AM Method of Contact: By Phone Contact Type: Prescriptions Contactor: [facility] Contactee: Patient Contact Outcome: Unable to leave message and Follow-up Shipping/Pickup: Medication Name: Envarsus 0.75mg, mycophenolate 180mg Contact Info: Specialty ([place]) [phone] [facility] [phone] [facility] [phone] [facility] [phone] Bedside Delivery ([facility]) [phone] * Tamera Schulz - 05/01/2024 11:39 AM EDT [facility] OUTREACH ADVANCED: Call Information: Date and Time of Contact: 05/05/2024 2:29 PM Method of Contact: By Phone Contact Type: Prescriptions Contactor: [facility] Contactee: Patient Shipping/Pickup: Medicare B Refill?: No Medication Name: Mycophenolate 180mg Delivery Method: Ship Delivery Location: Home Signature Required: No Receive/Pickup Date: 05/08/2024 Shipping Address: [address] [place] [address] Contact Info: Specialty ([place]) [phone] [facility] [phone] [facility] [phone] T[facility] [phone] Bedside Delivery ([facility]) [phone] * Tamera Schulz - 05/01/2024 11:39 AM EDT [facility] OUTREACH ADVANCED: Call Information: Date and Time of Contact: 05/05/2024 2:36 PM Method of Contact: By Phone Contact Type: Prescriptions Contactor: [facility] Contactee: Patient Contact Outcome: Patient declined to fill and Follow-up Patient Declined Fill Detail/Reason: Patient thinks he has between 2-3 weeks on hand. Will follow up next week. Shipping/Pickup: Medication Name: Envarsus XR 0.75mg Contact Info: Specialty ([place]) [phone] [facility] [phone] [facility] [phone] T[facility] [phone] Bedside Delivery ([facility]) [phone] * Tamera Schulz - 05/01/2024 11:39 AM EDT [facility] RX OUTREACH ADVANCED: Call Information: Date and Time of Contact: 05/08/2024 1:24 PM Method of Contact: By Phone Contact Type: Prescriptions Contactor: [facility] Contactee: Patient Contact Outcome: Patient declined to fill and Follow-up Patient Declined Fill Detail/Reason: Has 15 days of Myco and 30 days of Envarsus Shipping/Pickup: Medication Name: Mycophenolate 180mg and Envarsus XR 0.75 mg Contact Info: Specialty ([place]) [phone] [facility] [phone] [facility] [phone] T[facility] [phone] Bedside Delivery ([facility]) [phone] documented in this encounterMi[facility] History of Present illness Narrative* Linda Tony - 05/01/2024 11:39 AM EDT [facility]: Call Information: Date and Time of Contact: 05/01/2024 11:41 AM Method of Contact: By Phone Contact Type: Prescriptions Contactor: [facility] Contactee: Patient Contact Outcome: Unable to leave message and Follow-up Shipping/Pickup: Medication Name: Envarsus 0.75mg, mycophenolate 180mg Contact Info: Specialty ([place]) [phone] [facility] [phone] [facility] [phone] [place] [phone] Bedside Delivery ([facility]) [phone] * Tamera Schulz - 05/01/2024 11:39 AM EDT [facility]RE[facility]: Call Information: Date and Time of Contact: 05/05/2024 2:29 PM Method of Contact: By Phone Contact Type: Prescriptions Contactor: [facility] Contactee: Patient Shipping/Pickup: Medicare B Refill?: No Medication Name: Mycophenolate 180mg Delivery Method: Ship Delivery Location: Home Signature Required: No Receive/Pickup Date: 05/08/2024 Shipping Address: [address] [place] [address] Contact Info: Specialty ([place]) [phone] [facility] [phone] [facility] [phone] Tani [phone] Bedside Delivery ([facility]) [phone] * Tamera Schulz - 05/01/2024 11:39 AM EDT [facility]: Call Information: Date and Time of Contact: 05/05/2024 2:36 PM Method of Contact: By Phone Contact Type: Prescriptions Contactor: [facility] Contactee: Patient Contact Outcome: Patient declined to fill and Follow-up Patient Declined Fill Detail/Reason: Patient thinks he has between 2-3 weeks on hand. Will follow up next week. Shipping/Pickup: Medication Name: Envarsus XR 0.75mg Contact Info: Specialty ([place]) [phone] [facility] [phone] [facility] [phone] Tani [phone] Bedside Delivery ([facility]) [phone] * Tamera Schulz - 05/01/2024 11:39 AM EDT [facility]REACH [facility]: Call Information: Date and Time of Contact: 05/08/2024 1:24 PM Method of Contact: By Phone Contact Type: Prescriptions Contactor: [facility] Contactee: Patient Contact Outcome: Patient declined to fill and Follow-up Patient Declined Fill Detail/Reason: Has 15 days of Myco and 30 days of Envarsus Shipping/Pickup: Medication Name: Mycophenolate 180mg and Envarsus XR 0.75 mg Contact Info: Specialty ([place]) [phone] [place] [phone] [facility] [phone] Tani [phone] Bedside Delivery ([facility]) [phone] * Noris Vivas - 05/01/2024 11:39 AM EDT [facility]REACH [facility]: Call Information: Date and Time of Contact: 05/13/2024 2:08 PM Method of Contact: By Phone Contact Type: Prescriptions Contactor: [facility] Contactee: Patient Shipping/Pickup: Medicare B Refill?: No Medication Name: Mycophenolate 180mg Delivery Method: Ship Delivery Location: Home Signature Required: No Receive/Pickup Date: 05/18/2024 Shipping Address: [address] [place] [address] Contact Info: Specialty ([place]) [phone] [place] [phone] [facility] [phone] Tani [phone] Bedside Delivery ([facility]) [phone] [facility] Telephone encounter Note* Telephone Encounter - Braydon Ng RN - 04/15/2024 9:47 AM EDT TC to [facility] (Michelle): patient has already been established with [facility] and has received a supply shipment from them May 2023. She did ask that office note from 06/17/23 be refaxed, as she needs one with an electronic signature on it. Office note refaxed today, with electronic signature. [facility] Work Phone: [phone] Miscellaneous Notes* Telephone Encounter - Braydon Ng RN - 04/15/2024 9:47 AM EDT TC to [facility] (Michelle): patient has already been established with [facility] and has received a supply shipment from them May 2023. She did ask that office note from 06/17/23 be refaxed, as she needs one with an electronic signature on it. Office note refaxed today, with electronic signature. * Telephone Encounter - Shell Kruger APRN.CNP - 04/14/2024 4:01 PM EDT Patient wants to switch DME to [facility] - will the 2002 study be accepted as he is now medicare? The reason for a new sleep study was medicare requires different grading criteria: 4%. Thank you, Shell Kruger APRN.CNP * Telephone Encounter - Fátima Hand LPN - 04/14/2024 3:34 PM EDT 2003 sleep study received in [place] office and scanned to chart. Fátima Hand LPN * Telephone Encounter - Karen Jarquin LPN - 04/14/2024 2:15 PM EDT Michelle with [facility] calls for two reasons in regard to order for PSG. 1) Pt had a sleep study done at [facility] in 2002 and that meets CMS criteria. 2) A more recent face to face appt is going to be needed for insurance purposes. There is going to have to be documentation on why diagnostic needs repeated. Michelle reports she will fax 2003 report in case provider does not have it. Karen Jarquin LPN documented in this encounterGenesis Hospital05-21-2024 Telephone encounter Note * Telephone Encounter - Shell Kruger APRN.CNP - 04/14/2024 4:01 PM EDT Patient wants to switch DME to [facility] - will the 2002 study be accepted as he is now medicare? The reason for a new sleep study was medicare requires different grading criteria: 4%. Thank you, Shell Kruger APRN.IMAN [facility]05-21-20[facility] Telephone encounter Note* Telephone Encounter - Fátima Hand LPN - 04/14/2024 3:34 PM EDT 2002 sleep study received in [place] office and scanned to chart. Fátima Hand LPN [facility]05-21-[facility] Telephone encounter Note* Telephone Encounter - Karen Jarquin LPN - 04/14/2024 2:15 PM EDT Michelle with [facility] calls for two reasons in regard to order for PSG. 1) Pt had a sleep study done at [facility] in 2002 and that meets CMS criteria. 2) A more recent face to face appt is going to be needed for insurance purposes. There is going to have to be documentation on why diagnostic needs repeated. Michelle reports she will fax 2003 report in case provider does not have it. Karen Jarquin LPN [facility]05-09-2024 Telephone encounter Note* Telephone Encounter - Braydon Ng RN - 04/02/2024 12:56 PM EDT Patient updated that PSG order is now active, and number to scheduling provided. [facility] Work Phone: [phone] Miscellaneous Notes* Telephone Encounter - Braydon Ng RN - 04/02/2024 12:56 PM EDT Patient updated that PSG order is now active, and number to scheduling provided. * Telephone Encounter - Shell Kruger APRN.CNP - 04/02/2024 11:35 AM EDT HSAT Failed from the fall, order for PSG signed. Thank you, Shell Kruger APRN.DEMURRAGE CLERK * Telephone Encounter - Braydon Ng RN - 04/02/2024 9:29 AM EDT PSG order pended per patient request. I did inform him that insurance likely to require HSAT be completed prior to approving coverage for PSG. documented in this encounterGen[facility]05-09-2024 Telephone encounter Note * Telephone Encounter - Shell Kruger APRN.CNP - 04/02/2024 11:35 AM EDT HSAT Failed from the fall, order for PSG signed. Thank you, Shell Kruger APRN.DEMURRAGE CLERK [facility]05-09-2024 Telephone encounter Note* Telephone Encounter - Braydon Ng RN - 04/02/2024 9:29 AM EDT PSG order pended per patient request. I did inform him that insurance likely to require HSAT be completed prior to approving coverage for PSG. [facility]05-08-[facility] History of Present illness Narrative* Linda Jimenez - 04/01/2024 10:03 AM EDT [facility]: Call Information: Date and Time of Contact: 04/01/2024 10:05 AM Method of Contact: By Phone Contact Type: Prescriptions Contactor: [facility] Contactee: Patient Contact Outcome: Left message and Follow-up Shipping/Pickup: Medication Name: Envarsus 0.75mg, mycophenolate 180mg Contact Info: Specialty ([place]) [phone] [facility] [phone] [facility] [phone] Tani [phone] Bedside Delivery ([facility]) [phone] * Linda Jimenez - 04/01/2024 10:03 AM EDT [facility]RE[facility]: Call Information: Date and Time of Contact: 04/03/2024 9:45 AM Method of Contact: By Phone Contact Type: Prescriptions Contactor: [facility] Contactee: Patient Shipping/Pickup: Medicare B Refill?: No Medication Name: Envarsus 0.75mg, mycophenolate 180mg Delivery Method: Ship Delivery Location: Home Signature Required: No Receive/Pickup Date: 04/06/2024 Shipping Address: [address] [place] [address] Contact Info: Specialty ([place]) [phone] Har[place] [phone] [facility] [phone] Tani [phone] Bedside Delivery ([facility]) [phone] documented in this encounterMiami [facility]04-01-2024 History of Present illness Narrative* Macy Damon, DO - 02/24/2024 10:40 AM EDT Mr. Mccrary presents [facility] on 02/24/2024 for follow up of ANCA Vasculitis History of Present Illness / Interval History: At last visit he reports that he has had rash on his arms (felt to be 2/2 to warts). Since then it has been felt that his disease was realcitrant and suggested sirolumus instead of tacrolimus. Transplant wanted the patient to stay on tacrolimus. He has started on a topical ointment and that seems to be helping with treatment. He was otherwise doing well. However today he reports increassing fatigue and abdominal pain. He did get a repeat CT Chest 10/2023 noting new subtle micronodular ground glass densities lateral RLL but does not report a worsening cough until January. He and his report a mild cough. Reports: anxiety, loss of appetitie, abdominal pain, sleeping wakes at 3 am, arthritis, back trouble, No shortness of brath Positive cough in the last month a different cough by went away. Did hae a persistent cough. Abdominal pain: constant pain mid epigastric feels like gas; more of an upset to his stomach. Feel like trulicity. Worse than when on trulicity Has an infection in tooth getting resolved Vasculitis sx: Neuropathy: no Pulses: Intact b/l: yes Hemoptysis: no Sinus issues: no SOB: yes when he does any work Asthma, rhinosinusitis:no Vision sx: No - according to eye doctor no vision changes Uticaria: No GI symptoms: abdominal dull discomfort Rash: no other than his verrucous rash Raynaud's: no Oral Ulcers: no Eye Sx: no CP/Edema: CP when he gets SOB and mild swelling SOB/Cough: no Renal Issues, hematuria: no Stool issues changes - loose and constipated and hard and also urgency but no hematochezia or bright red blood per rectum. HISTORY: he first presented 12/2018 with ANCA vasculitis with DAH (12/25/18-) and + UT 3 and ANCA. He received cytoxan 100 mg po q day (01/06/2019 - 03/23/2019) total of 6100 mg 03/23/2019 starting rituximab (04/15/19) 10/20/19 06/22/2019: prednisone 5 mg, IVIG Renal biopsy: diabetic glomerulosclerosis, focal global/segmental glomerulosclerosis and subtle cellular crescentic changes in 2 glomeruli. Medications: Outpatient Medications Prior to Visit Medication Sig Dispense Refill amLODIPine 10 MG tablet atorvastatin 10 MG Tab tablet Take 4 tablets by mouth daily. Take two 10mg tabs at night for a total of 20mg calcitRIOL 0.25 MCG capsule Take 1 capsule by mouth daily. Obtain one year prescription at your next clinic appointment. 90 capsule 1 carveDILOL 12.5 MG tablet Take 1 tablet by mouth 2 times daily with meals. citalopram 40 MG Tab Take 1 tablet by mouth daily. dapagliflozin (Farxiga) 10 MG tablet Take 1 tablet by mouth daily. denosumab (PROLIA) 60 MG/ML SOSY injection Inject 1 mL under the skin once. Dulaglutide (TRULICITY SC) Inject 0.75 mg under the skin once a week. hydrALAZINE 25 MG tablet Take 1 tablet by mouth 2 times daily. PCP/passenger representative will follow up future prescriptions for non-transplant medications. 180 tablet 0 insulin detemir 100 UNIT/ML Solution Pen-injector injection Inject 10 Units under the skin at bedtime. Or as instructed by your PCP. (Patient taking differently: Inject 16 Units under the skin at bedtime. Or as instructed by your PCP.) 1 Prefilled Pen/Syringe 3 Insulin lispro 100 UNIT/ML Solution Inject 14 Units under the skin before meals & at bedtime. Insulin Lispro, 1 Unit Dial, 100 UNIT/ML Solution Pen-injector Inject 12-18 Units under the skin 3 times daily (take before meals). Take 12 units with breakfast, 12 units with lunch, 18 units with dinner levothyroxine 175 MCG tablet Take 1 tablet by mouth daily every morning. 11 Mycophenolate sodium (MYFORTIC) [address] Take 2 tablets by mouth every 12 hours. 120 tablet 11 pantoprazole [address] tablet DR Take 1 tablet by mouth daily. 30 tablet 11 predniSONE 5 MG tablet Take 1 tablet by mouth daily. 90 tablet 3 Tacrolimus (ENVARSUS XR) 0.75 MG Tab SR 24 HR Take 1 tablet by mouth daily. 90 tablet 3 No facility-administered medications prior to visit. 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 ESRD (end stage renal disease) on dialysis IHD T/Th/Sat - Left fistula Hyperglycemia Hyperlipidemia Hypertension Hypogammaglobulinemia Hypothyroidism AR (myocardial infarction) Pt reports he was told he had an AR in 2019 DAVID (obstructive sleep apnea) on BiPaP Gee's granulomatosis Family History Problem Relation Age of Onset Arthritis - Rheumatoid Mother Diabetes Mother Heart Failure Father Myocardial Infarction Father 56 Colorectal Cancer Father Heart Failure Maternal Grandmother Myocardial Infarction Maternal Grandmother Heart Failure Maternal Grandfather Myocardial Infarction Maternal Grandfather Heart Failure Paternal Grandmother Myocardial Infarction Paternal Grandmother Heart Disease - Other Paternal Grandmother Heart Failure Paternal Grandfather Myocardial Infarction Paternal Grandfather Heart Disease - Other Paternal Grandfather Arrhythmia Neg Hx Social History Socioeconomic History Marital status: Spouse name: Not on file Number of children: Not on file Years of education: Not on file Highest education level: Not on file Occupational History Not on file Tobacco Use Smoking status: Never Smokeless tobacco: Former Types: Snuff Quit date: 12/05/2018 Tobacco comments: 02/06/21 Vaping Use Vaping status: Never Used Substance and Sexual Activity Alcohol use: Never Comment: 02/06/21 Drug use: Never Comment: 02/06/21 Sexual activity: Not on file Other Topics Concern Not on file Social History Narrative Not on file Social Determinants of Health Financial Resource Strain: Not on file Food Insecurity: Not on file Transportation Needs: Not on file Physical Activity: Not on file Stress: Not on file Social Connections: Not on file Intimate Partner Violence: Not on file Housing Stability: Not on file Review of Systems: A complete review of systems was done and was negative except for what was noted in the HPI. Physical Examination: Blood pressure 132/74, pulse 66, temperature 97.9 F (36.6 C), temperature source Infrared, resp. rate 18, height 1.778 m (5' 10), weight 99.3 kg (219 lb), SpO2 99%. Body mass index is 31.42 kg/m . GENERAL: appears in no apparent distress. HEENT: No oral ulcers, malar rash, or uveitis noted. SKIN: (LIMITED), areas of scarring on arms no petechiae noted. LUNGS: Clear to auscultation, no crackles appreciated MUSCULOSKELETAL: Hand: no synovitis Elbow: full ROM no tenderness NEUROLOGIC: Alert and oriented, Diagnostic Data: Lab Encounter on 02/24/2024 Component Date Value Ref Range Status C Reactive Protein 02/24/2024 5.72 <10.00 mg/L Final ESR Westergren 02/24/2024 2 <20 mm/hr Final Albumin 02/24/2024 4.3 3.5 - 5.0 g/dL Final Bilirubin Direct 02/24/2024 0.2 <0.3 mg/dL Final Bilirubin Total 02/24/2024 0.6 <1.5 mg/dL Final ALP 02/24/2024 63 32 - 126 U/L Final ALT 02/24/2024 11 10 - 52 U/L Final AST 02/24/2024 12 10 - 39 U/L Final Total Protein 02/24/2024 6.8 6.4 - 8.3 g/dL Final Intact PTH 02/24/2024 63.8 14.0 - 72.0 pg/mL Final 25-OH Vitamin D Total 02/24/2024 45.1 30.0 - 100.0 ng/mL Final <10 Deficiency 10-29 Insufficiency 30-100 Optimal Level >100 Possible Toxicity Phosphorous 02/24/2024 3.2 2.2 - 4.6 mg/dL Final Calcium 02/24/2024 9.8 8.6 - 10.5 mg/dL Final WBC Count 02/24/2024 14.55 (H) 3.73 - 10.10 K/uL Final RBC Count 02/24/2024 6.15 (H) 4.38 - 5.83 M/uL Final Hemoglobin 02/24/2024 16.5 13.4 - 16.8 g/dL Final Hematocrit 02/24/2024 51.7 (H) 39.6 - 48.8 % Final Mean Cell Volume 02/24/2024 84.1 79.0 - 94.5 fL Final Mean Cell Hgb 02/24/2024 26.8 26.1 - 33.3 pg Final Mean Cell Hgb Conc 02/24/2024 31.9 31.9 - 36.5 g/dL Final RBC Distribution 02/24/2024 14.1 10.9 - 14.3 % Final Platelet Count 02/24/2024 233 146 - 337 K/uL Final Mean Platelet Volume 02/24/2024 10.6 8.7 - 12.3 fL Final LDL Cholesterol - Direct Measure 02/24/2024 63 <100 mg/dL Final [<100 mg/dL: Optimal] [100-129 mg/dL: Near Optimal] [130-159 mg/dL: Borderline High] [160-189 mg/dL: High] [>189 mg/dL: Very High] HDL Cholesterol 02/24/2024 33 (L) >=40 mg/dL Final [<40 mg/dL: Low (High Risk)] [>59 mg/dL: High (Low Risk)] Cholesterol 02/24/2024 109 <200 mg/dL Final [<200 mg/dL: Desirable] [200-239 mg/dL: Borderline High] [>239 mg/dL: High] Triglycerides 02/24/2024 105 <150 mg/dL Final [<150 mg/dL: Desirable] [150-199 mg/dL: Borderline] [200-499 mg/dL: High] [>500 mg/dL: Very High] Magnesium 02/24/2024 1.6 1.6 - 2.6 mg/dL Final Sodium 02/24/2024 139 135 - 145 mmol/L Final Potassium 02/24/2024 3.9 3.5 - 5.0 mmol/L Final Chloride 02/24/2024 103 98 - 108 mmol/L Final CO2 02/24/2024 23 21 - 31 mmol/L Final Glucose 02/24/2024 90 70 - 99 mg/dL Final BUN 02/24/2024 31 (H) 7 - 25 mg/dL Final Creatinine 02/24/2024 1.89 (H) 0.70 - 1.30 mg/dL Final Bun/Crea Ratio 02/24/2024 16 Final Osmolality (Calculated) 02/24/2024 297 278 - 305 mOsm/kg Final Anion Gap 02/24/2024 17 7 - 17 mmol/L Final eGFR, CKD-EPI, Male 02/24/2024 40 (L) >=60 mL/min/1.73m2 Final Reported eGFR is based on the CKD-EPI 2020 equation using creatinine, age, and sex. Assessment: and Plans: Mr. Mccrary presents to [facility] on 02/24/2024 for follow up of ANCA vasculitis doing well on rituximab in remission with transplant. Today he reports increase fatiguewith mild abdominal pain. ANCA Vasculitis with ESRD s/p kidney transplant with DAH now improved and in remission; PR3/ANCA positive - previously on rituximab. Last dose was 04/26/2020 - myfortic and tacrolimus for renal transplant but today reporting abdominal pain and fatigue whichhe reports symptoms feel like when he was first diagnosed but patient denies hemoptysis. He is reporting a cough that started in January. 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 Macy Damon DO * Sandra Prasad - 02/24/2024 10:40 AM EDT This service writer verified the patient's name and . [facility] History of Present illness Narrative* Robert Claloway DO - 02/24/2024 9:30 AM EDT Nephrology Glomerulonephritis, Lupus, Vasculitis Clinic Follow Up Note I recently had the pleasure of seeing Robert Mccrary at the [facility]asculitis [facility] for follow up. As you know, he is a 63 y.o. male who we are following for ANCA vasculitis. He received DCD KT 07/17/2020 and has been following up with Transplant Nephrology at [facility] since then. Re-presents for post-transplant follow-up. 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 Has not had any recurrent rejections since, allograft function stable with S Cr ~2 in last year or so but has fluctuated often between 1.5-2.5 in last few years. At the time of his clinic visit, he denies any cardiopulmonary or uremic complaints. The patient denies CP, SOB, diarrhea, constipation, dysuria, hematuria, joint aches/swelling, mouth ulcers. He is however having abdominal pain and fatigue, notes cramping abdominal pain which he notes he had before with vasculitis diagnosis. Also notes mild lower extremity edema. He has bilateral upper extremity warts which he is seeing Dermatology for, he denies any new rashes. Review Of Systems: Pertinent review of systems is as above. All other systems are negative. Vasculitis History: Biopsy date: 01/21/2018 Antibody: PR3 Clinical phenotype: GPA Induction: cytoxan started 01/02/19 Steroid Protocol: low dose pexivas Maintenance: MAINRITSAN rituximab on 04/15/19, 750mg on 10/20/19. Off since Dialysis/Transplant 2019, remains on low dose prednisone on top of IS for renal transplant Current Outpatient Medications Medication Sig Dispense Refill amLODIPine 10 MG tablet atorvastatin 10 MG Tab tablet Take 4 tablets by mouth daily. Take two 10mg tabs at night for a total of 20mg calcitRIOL 0.25 MCG capsule Take 1 capsule by mouth daily. Obtain one year prescription at your next clinic appointment. 90 capsule 1 carveDILOL 12.5 MG tablet Take 1 tablet by mouth 2 times daily with meals. citalopram 40 MG Tab Take 1 tablet by mouth daily. dapagliflozin (Farxiga) 10 MG tablet Take 1 tablet by mouth daily. denosumab (PROLIA) 60 MG/ML SOSY injection Inject 1 mL under the skin once. Dulaglutide (TRULICITY SC) Inject 0.75 mg under the skin once a week. hydrALAZINE 25 MG tablet Take 1 tablet by mouth 2 times daily. PCP/passenger representative will follow up future prescriptions for non-transplant medications. 180 tablet 0 insulin detemir 100 UNIT/ML Solution Pen-injector injection Inject 10 Units under the skin at bedtime. Or as instructed by your PCP. (Patient taking differently: Inject 16 Units under the skin at bedtime. Or as instructed by your PCP.) 1 Prefilled Pen/Syringe 3 Insulin lispro 100 UNIT/ML Solution Inject 14 Units under the skin before meals & at bedtime. Insulin Lispro, 1 Unit Dial, 100 UNIT/ML Solution Pen-injector Inject 12-18 Units under the skin 3 times daily (take before meals). Take 12 units with breakfast, 12 units with lunch, 18 units with dinner levothyroxine 175 MCG tablet Take 1 tablet by mouth daily every morning. 11 Mycophenolate sodium (MYFORTIC) [address] Take 2 tablets by mouth every 12 hours. 120 tablet 11 predniSONE 5 MG tablet Take 1 tablet by mouth daily. 90 tablet 3 Tacrolimus (ENVARSUS XR) 0.75 MG Tab SR 24 HR Take 1 tablet by mouth daily. 90 tablet 3 pantoprazole [address] tablet DR Take 1 tablet by mouth daily. 30 tablet 11 No current facility-administered medications for this visit. Physical Examination: Blood pressure 132/74, pulse 66, temperature 97.9 F (36.6 C), temperature source Infrared, resp. rate 18, height 1.778 m (5' 10), weight 99.3 kg (219 lb), SpO2 99%. Gen: NAD HEENT: NC. MMM. EOMI. Anicteric. oropharynx clear without lesions Neck: no JVD, no carotid bruits Heart: RRR, normal S1, S2, no m/g/r, trace edema Lungs: CTAB, no w/r/r Abd: soft, NT, + bowel sounds, no bruits. NTTP over RLQ, transplant kidney site LE: warm, no cyanosis Skin: warts on bilateral upper extremities Neuro: A and O x3, grossly intact, no astrexis MSK: no CVA tenderness Labs and Diagnostic Data: Lab Results Component Value Date SODIUM 134 12/31/2023 POTASSIUM 4.0 12/31/2023 CHLORIDE 107 12/31/2023 CO2 22 12/31/2023 BUN 28 12/31/2023 CREATSERUM 2.2 12/31/2023 Lab Results Component Value Date WBC 12.9 12/31/2023 HGB 15.4 12/31/2023 HCT 49.8 12/31/2023 PLATELET 197 12/31/2023 MCV 85.6 10/21/2023 Lab Results Component Value Date PTH 166.0 07/03/2023 CALCIUM 9.5 12/31/2023 PHOSPHORUS 2.9 08/12/2023 PHOSPHORUS 5.5 (H) 02/11/2019 No results found for: SHARON, ANAQUANTITA Lab Results Component Value Date PROTEINURINE 22 10/21/2023 PROTEINURINE Trace (A) 10/21/2023 PROTEINURINE 5 09/17/2022 Lab Results Component Value Date SEDRATE 6 10/21/2023 RHEUMATOIDFR <10 12/25/2018 Urinalysis: Dipstick 02/24/24: GLU 250 mg/dL BRE Negative KET Negative SG 1.010 BLO Negative pH 6.0 URO 0.2 E.U./dL NIT Negative TANA Negative Urine Sediment Exam 02/24/24: Overall bland, Negative for acanthocytes, RBCs, WBCs, hyaline casts I have review all labs and imaging reports in this note Assessment/Plan: 1. 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 This is likely the major contributor of his renal dysfunction rather than diabetic nephropathy. He was on dialysis in 2019, then received DCD KT Jun 2020 and has been of dialysis since. Recent ANCA in Fall 2022 negative. -Repeat ANCA today -Urine microscopy performed in clinic today, negative for acute findings acanthocytes, wbcs, etc. -Following with Rheumatology today as well 2. Immunosuppression: History of rituximab on 04/15/19 and again on 10/20/19. He continues taking 5mg of predniosne. On Envarsus, Myfortic s/p KT -Continue IS as per transplant nephrology, continue yearly transplant follow up, follow up with us yearly as well so sees nephrology ~q 6 month between the two 3. ESRD 2/2 ANCA Vasculitis, UT-3 GPA phenotype s/p DCD KT 07/17/20 Complicated by acute rejection October 2020, BK viremia Since has stabilized ~ S Cr 2 -Repeat Chem today -UA, UPCR and Urine microscopy as above -Reached out to transplant nephrologists, prior concerns for transplant renal artery stenosis noted, unclear if full work up complete, consider doppler US vs CT Angio pending transplant recs 4. Hypertension Fair control on Norvasc, Coreg, 132/74 in clinic Previously on Lasix, but off of this after starting Farxiga by PCP for DM -No proteinuria on urine dipstick 5. Bone Mineral Disease of CKD 6. Osteoporosis -Currently on Prolia 2x/year as well as calcitriol daily -No recent BMD labs noted -Vit D, PTH, Ca++, Phos ordered today, will adjust calcitriol based off these labs We will follow up on the ordered tests when the results become available. Thank you for allowing usto participate in the care of him. If you have any questions, please free to contact us. Above plan discussed with attending School Psychologist Assistant and in agreement. Robert Calloway, DO Clinical Nephrology Fellow, PGY-5 [facility] attending attestation: I saw and personally examined the patient independently on 02/24/2024. Iconfirm the findings, discussed the case, review medications,and diagnostic data with the Dr Calloway. I agree with the history, physical examination, and medical decisions as outlined below with my edits added. At this point, there is no evidence of active renal vasculitis based on his urine sediment exam. Hewill see rheum today to assess any systemic vasculitis symptoms. KIM Watters, MS Attending School Psychologist Assistant documented [facility] encounter[facility] History of Present illness Narrative* Phyllis Rodriguez - 01/23/2024 4:27 PM EST [facility] RX OUTREACH ADVANCED: Call Information: Date and Time of Contact: 01/23/2024 4:28 PM Method of Contact: By Phone Contact Type: Prescriptions Contactor: [facility] OP Contactee: Patient Contact Outcome: Patient declined to fill Patient Declined Fill Detail/Reason: Pt has more than 14 days on hand; push out call back to 01/29 Shipping/Pickup: Medication Name: Envarsus XR 0.75mg, Myco 180mg Contact Info: Specialty ([place]) [phone] [facility] [phone] [facility] [phone] [facility] [phone] Bedside Delivery ([facility]) [phone] * Phyllis Rodriguez - 01/23/2024 4:27 PM EST [facility] RX OUTREACH ADVANCED: Call Information: Date and Time of Contact: 01/30/2024 9:26 AM Method of Contact: By Phone Contact Type: Prescriptions Contactor: [facility] OP Contactee: Patient Contact Outcome: Patient declined to fill and Follow-up Patient Declined Fill Detail/Reason: Pt still has more than 14 days of Myco and Envarsus on hand; requests call back 02/06 Shipping/Pickup: Medication Name: Envarsus XR 0.75mg, Myco 180mg Contact Info: Specialty ([place]) [phone] [facility] [phone] [facility] [phone] [facility] [phone] Bedside Delivery ([facility]) [phone] documented in this encounterOS[facility] History of Present illness Narrative* Phlylis Rodriguez - 01/23/2024 4:27 PM EST [facility] RX OUTREACH ADVANCED: Call Information: Date and Time of Contact: 01/23/2024 4:28 PM Method of Contact: By Phone Contact Type: Prescriptions Contactor: [facility] OP Contactee: Patient Contact Outcome: Patient declined to fill Patient Declined Fill Detail/Reason: Pt has more than 14 days on hand; push out call back to 01/29 Shipping/Pickup: Medication Name: Envarsus XR 0.75mg, Myco 180mg Contact Info: Specialty ([place]) [phone] [facility] [phone] [facility] [phone] [facility] [phone] Bedside Delivery ([facility]) [phone] * Phyllis Rodriguez - 01/23/2024 4:27 PM EST [facility] RX OUTREACH ADVANCED: Call Information: Date and Time of Contact: 01/30/2024 9:26 AM Method of Contact: By Phone Contact Type: Prescriptions Contactor: [facility] OP Contactee: Patient Contact Outcome: Patient declined to fill and Follow-up Patient Declined Fill Detail/Reason: Pt still has more than 14 days of Myco and Envarsus on hand; requests call back 02/06 Shipping/Pickup: Medication Name: Envarsus XR 0.75mg, Myco 180mg Contact Info: Specialty ([place]) [phone] [facility] [phone] [facility] [phone] [facility] [phone] Bedside Delivery ([facility]) [phone] * Phyllis Rodriguez - 01/23/2024 4:27 PM EST [facility] RX OUTREACH ADVANCED: Call Information: Date and Time of Contact: 02/07/2024 10:14 AM Method of Contact: By Phone Contact Type: Prescriptions Contactor: [facility] OP Contactee: Other Other Contactee: Sally Shipping/Pickup: Medicare B Refill?: No Medication Name: Envarsus XR 0.75mg, Myco 180mg Delivery Method: Ship Delivery Location: Home Signature Required: No Receive/Pickup Date: 02/10/2024 Shipping Address: [address] [place] [id number] Contact Info: Specialty ([place]) [phone] [facility] [phone] [facility] [phone] [facility] [phone] Bedside Delivery ([facility]) [phone] documented in this encounterOS[facility] History of Present illness Narrative* All Banks - 12/27/2023 2:04 PM EST [facility] RX OUTREACH ADVANCED: Call Information: Date and Time of Contact: 12/27/2023 2:04 PM Method of Contact: By Phone Contact Type: Prescriptions Contactor: [facility] OP Contactee: Patient Shipping/Pickup: Medicare B Refill?: No Medication Name: Myco 180, envarsus xr 0.75 Delivery Method: Ship Delivery Location: Home Signature Required: No Receive/Pickup Date: 12/31/2023 Shipping Address: [address] [place] [address] Contact Info: Specialty ([place]) [phone] [facility] [phone] [facility] [phone] [facility] [phone] Bedside Delivery ([facility]) [phone] documented in this encounterOSGood [facility]01-03-[facility]24 History of Present illness Narrative* Tamera Schulz - 11/27/2023 10:05 AM EST [facility] RX OUTREACH ADVANCED: Call Information: Date and Time of Contact: 11/27/2023 10:06 AM Method of Contact: By Phone Contact Type: Prescriptions Contactor: [facility] Contactee: Patient Contact Outcome: Patient declined to fill and Follow-up Patient Declined Fill Detail/Reason: Patient wants a call back on Saturday, thinks he has little over2 weeks Shipping/Pickup: Medication Name: Envarsus XR 0.75mg and Myco 180mg Contact Info: Specialty ([place]) [phone] [facility] [phone] [facility] [phone] [facility] [phone] Bedside Delivery ([facility]) [phone] * Tamera Schulz - 11/27/2023 10:05 AM EST [facility] RX OUTREACH ADVANCED: Call Information: Date and Time of Contact: 12/03/2023 1:19 PM Method of Contact: By Phone Contact Type: Prescriptions Contactor: [facility] OP Contactee: Patient Shipping/Pickup: Medicare B Refill?: No Medication Name: Envarsus XR 0.75mg and Mycophenolate 180mg Delivery Method: Ship Delivery Location: Home Signature Required: No Receive/Pickup Date: 12/04/2023 Shipping Address: [address] [place] [address] Contact Info: Specialty ([place]) [phone] [facility] [phone] [facility] [phone] [facility] [phone] Bedside Delivery ([facility]) [phone] documented in this encounterU [facility]11[facility] History of Present illness Narrative* Adwoa Evans MD - 10/21/2023 11:45 AM EST CC: Chief Complaint Patient presents with Warts I, Adwoa Eric CMA , served as a scribe and medical weatherization specialist for this encounter on 10/21/2023 I have reviewed this documentation scribed by Adwoa Eric CMA and it is accurate. This encounter was conducted by Adwoa Evans MD in the presence of a medical weatherization specialist. HPI: Robert Mccrary is an 63 y.o. year old male who presents for: Duration: 4 weeks Location: bilateral arms and legs Associated Symptoms: warts Severity: severe Current treatment: cryo and nadine Past/Failed treatment (if applicable): Rx'ed: acitretin. Covered by insurance but $100 copay. 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 Physical Exam: Exam included: R arm L arm R leg L leg All normal except: Verrucous papules located on bilateral arms, hands and on shins Impression/Plan: ICD-10-CM 1. Verruca plana B07.8 UT INJECTION, INTRALESIONAL, UP TO AND INCLUDING 7 LESIONS nadine albicans skin test injection 0.3 mL UT DESTRUC BENIGN LESION, 15 OR MORE 2. Other viral warts B07.8 UT INJECTION, INTRALESIONAL, UP TO AND INCLUDING 7 LESIONS nadine albicans skin test injection 0.3 mL UT DESTRUC BENIGN LESION, 15 OR MORE 3. Disturbance of skin sensation R20.9 UT INJECTION, INTRALESIONAL, UP TO AND INCLUDING 7 LESIONS nadine albicans skin test injection 0.3 mL UT DESTRUC BENIGN LESION, 15 OR MORE Overall improved but still active and numerous Nadine injection 0.3 cc after swabbing skin with rubbing alcohol. Treated to right hand today. Nadine injection # 5 0.3 mL administered Lot: [id number] Ex: 08/16/2024 [facility]: [id number] Ln2 #5 The patient would like to proceed with cryotherapy. Treated with cryosurgery x~60 on bilateral hands and right forearm, bilateral Shins after risks/benefits/alternatives discussed, consent obtained. Lot [id number] Exp: 11/06/2024 [facility]: [id number] Return to clinic precautions discussed with patient No follow-ups on file. Adwoa Evans MD Policeman Department of Dermatology [facility] documented in this encounterOS[facility]11-27-2023 Instructions* Patient Instructions* Adwoa Eric - 10/21/2023 11:45 AM EST The side-effects of cryotherapy including blistering, skin discoloration, infection, non-healing, reoccurrence and rarely scarring. CRYOSURGERY Cryosurgery involves the use of liquid nitrogen to remove or treat skin growths. When liquid nitrogen is applied, the skin turns white and then slowly reddens. Stinging during the treatment is common, but this should subside within the hour. Throbbing discomfort may occur a few hours after treatment. Taking Tylenol, elevating the treatment site, and the use of cool water compresses can help relive the discomfort. A welt will form following treatment and may become a blister. Swelling may occur 24-28 hours after cryosurgery. Keep the area clean after treatment. Please use the following steps: 1. Clean the area with soap and water 1-2 times a day. Use gentle soap and water to the area. Avoid scrubbing the area with washcloth, loofah, scrubbing brush 2. If the areas open, scab, become itchy or irritated- Apply Vaseline and a bandage 1-2 times a day. Avoid picking the area. 3. If a blister forms, it is ok to pop the blister. You can apply pressure on the blister or use a needle that has been heated with a flame or cleaned with alcohol. Do not rip off the blister skin. 4. Call the office if you are concerned about infection. Signs of infection include severe pain, redness that spreads an inch or more outside of the healing site or pus. If the wound opens or a blister pops, it is normal to have a rim of redness around the healing area with a yellow base within thehealing area. documented in this encounterMi[facility]11-27-2023 History of Present illness Narrative* Macy Damon DO - 10/21/2023 9:20 AM EST Mr. Mccrary presents [facility] on 10[facility]22/2023 for follow up of ANCA Vasculitis History of Present Illness / Interval History: In clinic 10/22/2023 Robert Mccrary says that he is doing well. He is tolerating his kidney transplant well and has been 2 years since He has been doing well with his transplant - he continues on myfotic 360mg bid and tacromilus For the past year has developed rash on the arms and follows with Dermatology - felt to be secondary to warts He denies sinus issues, hemoptysis, recent illness, no mouth sores but will get gum infection. He remains active. He denies cough or worsening shortness of breath. Medications: Outpatient Medications Prior to Visit Medication Sig Dispense Refill amLODIPine 10 MG tablet atorvastatin 10 MG Tab tablet Take 4 tablets by mouth daily. Take two 10mg tabs at night for a total of 20mg calcitRIOL 0.25 MCG capsule Take 1 capsule by mouth daily. Obtain one year prescription at your next clinic appointment. 90 capsule 1 carveDILOL 12.5 MG tablet Take 1 tablet by mouth 2 times daily with meals. citalopram 40 MG Tab Take 1 tablet by mouth daily. dapagliflozin (Farxiga) 10 MG tablet Take 1 tablet by mouth daily. denosumab (PROLIA) 60 MG/ML SOSY injection Inject 1 mL under the skin once. Dulaglutide (TRULICITY SC) Inject 0.75 mg under the skin once a week. hydrALAZINE 25 MG tablet Take 1 tablet by mouth 2 times daily. PCP/passenger representative will follow up future prescriptions for non-transplant medications. 180 tablet 0 insulin detemir 100 UNIT/ML Solution Pen-injector injection Inject 10 Units under the skin at bedtime. Or as instructed by your PCP. (Patient taking differently: Inject 16 Units under the skin at bedtime. Or as instructed by your PCP.) 1 Prefilled Pen/Syringe 3 Insulin Lispro, 1 Unit Dial, 100 UNIT/ML Solution Pen-injector Inject 12-18 Units under the skin 3 times daily (take before meals). Take 12 units with breakfast, 12 units with lunch, 18 units with dinner levothyroxine 175 MCG tablet Take 1 tablet by mouth daily every morning. 11 Mycophenolate sodium (MYFORTIC) [address] Take 2 tablets by mouth every 12 hours. 120 tablet 11 pantoprazole [address] tablet DR Take 1 tablet by mouth daily. 30 tablet 11 predniSONE 5 MG tablet Take 1 tablet by mouth daily. 90 tablet 3 Tacrolimus (ENVARSUS XR) 0.75 MG Tab SR 24 HR Take 1 tablet by mouth daily. 90 tablet 3 No facility-administered medications prior to visit. 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 ESRD (end stage renal disease) on dialysis IHD T/Th/Sat - Left fistula Hyperglycemia Hyperlipidemia Hypertension Hypogammaglobulinemia Hypothyroidism AR (myocardial infarction) Pt reports he was told he had an AR in 2019 DAVID (obstructive sleep apnea) on BiPaP Gee's granulomatosis Family History Problem Relation Age of Onset Arthritis - Rheumatoid Mother Diabetes Mother Heart Failure Father Myocardial Infarction Father 56 Colorectal Cancer Father Heart Failure Maternal Grandmother Myocardial Infarction Maternal Grandmother Heart Failure Maternal Grandfather Myocardial Infarction Maternal Grandfather Heart Failure Paternal Grandmother Myocardial Infarction Paternal Grandmother Heart Disease - Other Paternal Grandmother Heart Failure Paternal Grandfather Myocardial Infarction Paternal Grandfather Heart Disease - Other Paternal Grandfather Arrhythmia Neg Hx Social History Socioeconomic History Marital status: Spouse name: Not on file Number of children: Not on file Years of education: Not on file Highest education level: Not on file Occupational History Not on file Tobacco Use Smoking status: Never Smokeless tobacco: Former Types: Snuff Quit date: 12/05/2018 Tobacco comments: 02/06/21 Vaping Use Vaping Use: Never used Substance and Sexual Activity Alcohol use: Never Comment: 02/06/21 Drug use: Never Comment: 02/06/21 Sexual activity: Not on file Other Topics Concern Not on file Social History Narrative Not on file Social Determinants of Health Financial Resource Strain: Not on file Food Insecurity: Not on file Transportation Needs: Not on file Physical Activity: Not on file Stress: Not on file Social Connections: Not on file Intimate Partner Violence: Not on file Housing Stability: Not on file Review of Systems: A complete review of systems was done and was negative except for what was noted in the HPI. Physical Examination: Blood pressure 128/64, pulse 64, height 1.778 m (5' 10), weight 102.7 kg (226 lb 8 oz), SpO2 97 %.Body mass index is 32.5 kg/m . GENERAL: appears in no apparent distress. HEENT: No oral ulcers, malar rash, parotid gland enlargement, or uveitis noted. SKIN: (LIMITED), areas of scaling and papules on arms no petechiae noted. LUNGS: Clear to auscultation, no crackles appreciated MUSCULOSKELETAL: Hand: no synovitis Elbow: full ROM no tenderness NEUROLOGIC: Alert and oriented, Diagnostic Data: Lab Encounter on 10/21/2023 Component Date Value Ref Range Status C Reactive Protein 10/21/2023 4.64 <10.00 mg/L Final ESR [place] 10/21/2023 6 <20 mm/hr Final Albumin 10/21/2023 4.5 3.5 - 5.0 g/dL Final Bilirubin Direct 10/21/2023 0.2 <0.3 mg/dL Final Bilirubin Total 10/21/2023 0.7 <1.5 mg/dL Final ALP 10/21/2023 61 32 - 126 U/L Final ALT 10/21/2023 12 10 - 52 U/L Final AST 10/21/2023 11 10 - 39 U/L Final Total Protein 10/21/2023 6.7 6.4 - 8.3 g/dL Final Sodium 10/21/2023 140 135 - 145 mmol/L Final Potassium 10/21/2023 4.0 3.5 - 5.0 mmol/L Final Chloride 10/21/2023 104 98 - 108 mmol/L Final CO2 10/21/2023 24 21 - 31 mmol/L Final Glucose 10/21/2023 98 70 - 99 mg/dL Final BUN 10/21/2023 34 (H) 7 - 25 mg/dL Final Creatinine 10/21/2023 2.08 (H) 0.70 - 1.30 mg/dL Final Bun/Crea Ratio 10/21/2023 16 Final Osmolality (Calculated) 10/21/2023 300 278 - 305 mOsm/kg Final Anion Gap 10/21/2023 16 7 - 17 mmol/L Final eGFR, CKD-EPI, Male 10/21/2023 36 (L) >=60 mL/min/1.73m2 Final Reported eGFR is based on the CKD-EPI 2020 equation using creatinine, age, and sex. LD Total 10/21/2023 182 100 - 190 U/L Final WBC Count 10/21/2023 15.83 (H) 3.73 - 10.10 K/uL Final RBC Count 10/21/2023 5.78 4.38 - 5.83 M/uL Final Hemoglobin 10/21/2023 15.5 13.4 - 16.8 g/dL Final Hematocrit 10/21/2023 49.5 (H) 39.6 - 48.8 % Final Mean Cell Volume 10/21/2023 85.6 79.0 - 94.5 fL Final Mean Cell Hgb 10/21/2023 26.8 26.1 - 33.3 pg Final Mean Cell Hgb Conc 10/21/2023 31.3 (L) 31.9 - 36.5 g/dL Final RBC Distribution 10/21/2023 14.2 10.9 - 14.3 % Final Platelet Count 10/21/2023 221 146 - 337 K/uL Final Mean Platelet Volume 10/21/2023 10.4 8.7 - 12.3 fL Final DIFF STATUS 10/21/2023 Electronic Differential Final Segs + Bands Auto 10/21/2023 81.9 % Final Immature Grans % 10/21/2023 0.9 % Final Lymphocyte % Auto 10/21/2023 7.3 % Final Monocyte % Auto 10/21/2023 8.6 % Final Eosinophil % Auto 10/21/2023 0.9 % Final Basophil % Auto 10/21/2023 0.4 % Final Nucleated RBC 10/21/2023 0.0 <=0.2 /100 WBC Final Segs + Bands,Absolute Auto 10/21/2023 12.94 (H) 1.57 - 6.19 K/uL Final Immature Grans Absolute 10/21/2023 0.15 (H) <=0.07 K/uL Final Abs Lymph Auto 10/21/2023 1.16 0.83 - 3.57 K/uL Final Abs [place] Auto 10/21/2023 1.36 (H) 0.24 - 0.93 K/uL Final Abs Eos Auto 10/21/2023 0.15 0.00 - 0.48 K/uL Final Abs Baso Auto 10/21/2023 0.07 0.00 - 0.09 K/uL Final Urine Creatinine 10/21/2023 69.63 mg/dL Final Urine Protein 10/21/2023 22 mg/dL Final Prot/Creat Ratio 10/21/2023 0.316 mg/mg Final Color 10/21/2023 Yellow Yellow Final Appearance Urine 10/21/2023 Clear Clear Final Glucose Urine 10/21/2023 500 mg/dL (A) Negative Final Ketones Urine 10/21/2023 Negative Negative Final Specific [place] Urine 10/21/2023 1.015 1.001 - 1.035 Final Blood Urine 10/21/2023 Negative Negative Final pH Urine 10/21/2023 6.5 5.0 - 7.0 Final Protein Urine 10/21/2023 Trace (A) Negative Final Urobilinogen Urine 10/21/2023 0.2 E.U./dL 0.2 E.U/dL, 1.0 E.U/dL Final Nitrites Urine 10/21/2023 Negative Negative Final Leukocyte Esterase 10/21/2023 Negative Negative Final RBC Urine 10/21/2023 0-2 0 - 2 /HPF Final WBC Urine 10/21/2023 0 - 5 0 - 5 /HPF Final Squamous/Epithelial Cells 10/21/2023 0-2/hpf 0-2/hpf, 3-5/hpf = 1+ Final Bacteria 10/21/2023 ABSENT ABSENT Final Assessment: and Plans: Mr. Mccrary presents to [facility] on 10/22/2023 for follow up of ANCA vasculitis doing well on rituximab in remission with transplant Had aviral URI in December with continued cough - will order PFTs and may need updated imaging ANCA Vasculitis with ESRD s/p kidney transplant with DAH now improved and in remission - previously on rituximab. 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 Macy Damon DO documented in this encounterMiami [facility]10-30-2023 History of Present illness Narrative* Carlos Villela RN - 09/23/2023 2:00 PM EDT Images from the original note were not included. PREP SHEET FOR NEPHROLOGY CLINIC Patient Name: Robert Mccrary [employer] Support Specialist: Alma Keating Date of Kidney Transplant: 07/17/2020 Primary Disease: Gee's Granulomatosis Transplant School Psychologist Assistant: Armando Jack Primary Care physician: Marques Casanova Last Transplant Appointment: 01/18/2022 MONITORING: DGF no HLA Match: A 2, B 2, DR 1 Living Donor? no [place] Recipient? no Increased Risk donor? yes Done 08/18/2020 EBV IgG Donor / Recipient R+/D- CMV IgG Donor / Recipient: D+/R+ Valcyte DC'd 07/18/20 On Valcyte or frequent labs? yes Ureteral Stent? yes Removed / Removal Sched? yes When? 08/16/2020-done Hepatitis C+/LUIS- donor? no Hepatitis C+/LUIS+ donor? yes Sae Status In Protocol Box yes Has recipient converted to Hep C+? yes HCV genotype for PA 07/20/2020- 2217 PA for HCV submitted? yes Submitted on 08/02/2020-received Patient started treatment? no 08/26/2020 Hep C PCR at completion of HCV therapy collected on: NA 11/24/2020 Hep C PCR 3 months post completion collected on: NA 02/22/2021 Hep C PCR 6 months post completion collected on: NA 05/23/2021 IMMUNOSUPPRESSION AND LABS: Current Immunosuppressive Medication(s) Immunosuppressive Agents Mycophenolate sodium (MYFORTIC) [address] Take 2 tablets by mouth every 12 hours. Tacrolimus (ENVARSUS XR) 0.75 MG Tab SR 24 HR Take 1 tablet by mouth daily. I/S levels: Lab Results Component Value Date CYCLOSPORIN2 379 06/12/2021 CYCLOSPORIN2 492 04/12/2021 CYCLOSPORIN2 672 01/30/2021 [id number] 330 06/05/2021 [id number] 504 05/22/2021 [id number] 321 05/08/2021 No components found for: CYCLOSPORINE, 2HR POST No results found for: SIROLIMUS, RAPAMUNE, RAPAMYCIN No results found for: EVEROLIMUS, EVRLMSTRGH, EVERTRGHMANE, EVRLMSRND Lab Results Component Value Date TACROLIMUS 5.6 03/19/2022 TACROLIMUS 7.1 09/18/2021 TACROLIMUS 32.3 (H) 08/04/2020 TACROTRGHMAN 6.8 07/03/2023 TACROTRGHMAN 6.8 12/31/2022 TACROTRGHMAN 5.2 11/12/2022 CHEMISTRY: Lab Results Component Value Date CREATSERUM 2.48 08/12/2023 CREATSERUM 2.65 07/03/2023 CREATSERUM 1.95 04/08/2023 HEMATOLOGY: Lab Results Component Value Date WBC 11.2 08/12/2023 WBC 12.7 07/03/2023 WBC 12.1 04/08/2023 Lab Results Component Value Date HGB 15.3 08/12/2023 HGB 15.0 07/03/2023 HGB 14.6 04/08/2023 IMMUNOLOGY: Lab Results Component Value Date CMVPCR no DNA detected 01/16/2021 CMVPCR negative 01/09/2021 CMVPCR no DNA detected 01/02/2021 EBVBYPCR <1,000 11/30/2020 EBVBYPCR <1,000 11/07/2020 EBVDNAVLME negative 12/12/2020 EBVDNAVLME negative 10/17/2020 EBVDNAVLME negative 08/22/2020 BKVIRALP <500 09/18/2021 BKVIRALP <500 06/12/2021 BKVIRALP <500 04/12/2021 CURRENT MEDICATIONS: Atorvastatin, Citalopram, Dulaglutide, Insulin lispro (1 Unit Dial), Mycophenolate sodium, Pantoprazole, Tacrolimus, Torsemide, amLODIPine, calcitRIOL, carveDILOL, denosumab, hydrALAZINE, insulin detemir, levothyroxine, and predniSONE None Specified Change in lab frequency / new order today: SLO - in letters Labs needed in clinic today? yes enter orders & screen shot Alloscreen, [facility] [place] COORDIN[place] NOTES: * Trisha Penaloza RN - 09/23/2023 2:00 PM EDT Images from the original note were not included. Nursing Assessment In Clinic Patient is accompanied to clinic today by: significant other Did patient require a wheelchair or medical transport for appointment: no Insurance information correct: yes VITALS BP Readings from Last 3 Encounters: 09/23/23 137/64 05/06/23 122/68 03/21/23 126/58 Pulse Readings from Last 3 Encounters: 09/23/23 70 05/06/23 68 03/21/23 75 Wt Readings from Last 6 Encounters: 09/23/23 100.5 kg (221 lb 9.6 oz) 05/06/23 96.2 kg (212 lb) 03/21/23 97.5 kg (215 lb) 01/28/23 98.4 kg (217 lb) 09/17/22 98 kg (216 lb) 07/09/22 90.7 kg (200 lb) Body mass index is 31.8 kg/m . Lab Results Component Value Date GLUCOSE 136 08/12/2023 Lab Results Component Value Date HGBA1C 7.0 07/03/2023 IMMUNOSUPPRESSION Current Immunosuppressive Medication(s) Immunosuppressive Agents Mycophenolate sodium (MYFORTIC) [address] Take 2 tablets by mouth every 12 hours. Tacrolimus (ENVARSUS XR) 0.75 MG Tab SR 24 HR Take 1 tablet by mouth daily. PREFERRED LAB AND PHARMACY: None Specified [facility] [place] [address] [facility] [address] [id number] [id number] [place] [address] [address] [facility] [address] [facility] [address] [facility] [address] [facility] [address] [facility] [address] [address] [facility] (Now [facility]) [place] [address] [facility] [address] [id number] ROS and SCREEN: Chest Pain: negative Cough: negative SOB: negative Abd Pain: negative Nausea: negative Vomiting: negative Diarrhea: negative Constipation: negative Dysuria: negative Edema: negative Tremors: negative Headaches: negative Skin issues: positive; warts on arms and legs for about 2 years, following with audio production manager QUESTIONS OR CONCERNS TO ADDRESS WITH PHYSICIAN: * Toño Joyce MD, MBBS - 09/23/2023 2:00 PM EDT Images from the original note were not included. Date: 09/23/23 Patient: Robert Mccrary Transplant Date: 07/17/20 Organ(s) @Kidney@ [place] organ diagnosis: Gee's Granulomatosis Days from Transplant: 1163 History of Present Illness: Robert Mccrary is a 63 y.o.male with hx of ESRD due to Gee's Granulomatosis, now s/p Donation after Circulatory donor Kidney transplant on 07/17/20, comes for a 1163 post transplant follow up. Wt Readings from Last 3 Encounters: 09/23/23 100.5 kg (221 lb 9.6 oz) 05/06/23 96.2 kg (212 lb) 03/21/23 97.5 kg (215 lb) Interim summary: - no CMV/no BK, no DSA - patient was started on Dapagliflozin for DM by his woods manager and he is not taking Torsemideanymore Missed medicine dose: No Missed appointment: No Problem getting refills: No Problem with insurance: No Hospitalizations since last visit: No New Allergy: No Functional capacity: (UNOS required until 5 years post txp): 100% ROS: Denies fevers, chills, nausea, vomiting, diarrhea, abd pain, chest pain, sob, graft tenderness,. All other review of systems were negative. 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 Take two 10mg tabs at night for a total of 20mg calcitRIOL 0.25 MCG capsule Take 1 capsule by mouth daily. Obtain one year prescription at your next clinic appointment. 90 capsule 1 carveDILOL 12.5 MG tablet Take 1 tablet by mouth 2 times daily with meals. citalopram 40 MG Tab Take 1 tablet by mouth daily. dapagliflozin (Farxiga) 10 MG tablet Take 1 tablet by mouth daily. denosumab (PROLIA) 60 MG/ML SOSY injection Inject 1 mL under the skin once. Dulaglutide (TRULICITY SC) Inject 0.75 mg under the skin once a week. hydrALAZINE 25 MG tablet Take 1 tablet by mouth 2 times daily. PCP/passenger representative will follow up future prescriptions for non-transplant medications. 180 tablet 0 insulin detemir 100 UNIT/ML Solution Pen-injector injection Inject 10 Units under the skin at bedtime. Or as instructed by your PCP. (Patient taking differently: Inject 16 Units under the skin at bedtime. Or as instructed by your PCP.) 1 Prefilled Pen/Syringe 3 Insulin Lispro, 1 Unit Dial, 100 UNIT/ML Solution Pen-injector Inject 12-18 Units under the skin 3 times daily (take before meals). Take 12 units with breakfast, 12 units with lunch, 18 units with dinner levothyroxine 175 MCG tablet Take 1 tablet by mouth daily every morning. 11 Mycophenolate sodium (MYFORTIC) [address] Take 2 tablets by mouth every 12 hours. 120 tablet 11 pantoprazole [address] tablet DR Take 1 tablet by mouth daily. 30 tablet 11 predniSONE 5 MG tablet Take 1 tablet by mouth daily. 90 tablet 1 Tacrolimus (ENVARSUS XR) 0.75 MG Tab SR 24 HR Take 1 tablet by mouth daily. 90 tablet 0 torsemide 20 MG tablet Take 2 tablets by mouth daily. (Patient not taking: Reported on 09/23/2023) 180 tablet 3 No facility-administered medications prior to visit. Allergies / ADRs: Allergies Allergen Reactions Losartan Hives Mircera [Methoxy Polyethylene Glycol-Epoetin Beta] Pain Back pain PHYSICAL EXAM: Vitals: 09/23/23 1350 BP: 137/64 Pulse: 70 Temp: 97 degrees F (36.1 degrees C) TempSrc: Temporal Weight: 100.5 kg (221 lb 9.6 oz) BP Readings from Last 3 Encounters: 09/23/23 137/64 05/06/23 122/68 03/21/23 126/58 Gen - AAO x 3 in NAD Skin - No exanthem. HEENT - Mucous membranes moist. Chest: Lungs clear to ausculatation w/o wheezes/ rhonchi/ crackles. Heart - S1 and S2 clear w/o murmur, gallop, or rub. JVP not elevated. Abd - Soft. + BS. No bruit. Non tender allograft. No organomegaly. Ext - Warm. No cyanosis. No dependent edema. Labs/ Imaging: - reviewed in Epic Impression/ Plan: 1. Kidney Transplant: Has stable renal graft function, Advised patient for adequate hydration. - will monitor routine post transplant labs and urine studies Lab Results Component Value Date CREATSERUM 1.99 (H) 09/23/2023 CREATURINE 90.50 07/03/2023 UPC: PROTEIN/CREATININE RATIO, MANUAL ENTER Date Value Ref Range Status 07/03/2023 0.100 Final Prot/Creat Ratio Date Value Ref Range Status 09/17/2022 0.115 Final 2. Immunosuppression: -Tacrolimus dose will be adjusted for a goal 6-8: Lab Results Component Value Date TACROLIMUS 5.6 03/19/2022 TACROTRGHMAN 6.8 07/03/2023 Current Immunosuppressive Medication(s) Immunosuppressive Agents Mycophenolate sodium (MYFORTIC) [address] Take 2 tablets by mouth every 12 hours. Tacrolimus (ENVARSUS XR) 0.75 MG Tab SR 24 HR Take 1 tablet by mouth daily. - monitor for drug toxicities like leucopenia, hyperkalemia etc. etc. 3. Hypertension: wellControl BP, Goal <140/90 mmHg, advised him low-salt intake and increasing physical activity. -no change, check renin/aldosteronr BP Readings from Last 3 Encounters: 09/23/23 137/64 05/06/23 122/68 03/21/23 126/58 4. Infectious Prophylaxis: -PJP prophylaxis with Bactrim Lab Results Component Value Date CMVPCR no DNA detected 01/16/2021 CMVPCR negative 01/09/2021 CMVPCR no DNA detected 01/02/2021 5. 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 Post- Transplant Erythrocytosis: HCT>50 Post-transplant erythrocytosis (PTE) may develop within the first 2 years post- transplant and generally affects those with good allograft function. The incidence of PTE appears to have decreased to less than 10% concomitant with the more frequent use of ACEI and ARBs. Plan to rule out- transplant Renal Artery Stenosis and additionally the possibilities of renal cellcarcinoma in the [place] and transplanted kidneys. He would benefit with GEE/ARB if remains hypokalemic and if HCT ~50. 7. Lipid: LDL goal is <100, continue on statin and monitor Lipid profile in 6 months. 8.Cardiovascular risk reduction: Advised him to increase the physical activity. continue statin andbaby aspirin. 9. COVID-19 education: Encourage patient to follow CDC guidelines for COVID-19 prevention. 10. DM type-2: follow up with Parachute/Combatant Diver Officer. 11. Metabolic Acidosis: kidney transplant recipients are at risk for developing RTA, no evidence ofacidosis at this time. Continue w surveillance. Lab Results Component Value Date CO2 20 (L) 09/23/2023 CO2 26 08/12/2023 12. Skin cancer risk: Advised him Monthly self skin exam, daily spf 50 sunblock, annual dermatologyfollow to evaluate for skin cancer All age appropriate and post-transplant, routine health maintenance tests and screenings are strongly recommended. I have advised patient to follow up with PCP for yearly health maintenance tests andscreening. Follow-up: - per protocol With kind regards, Toño Joyce MD Machine Iii Coremaker [facility] Instructions* Patient Instructions* Trisha Penaloza RN - 09/23/2023 2:00 PM EDT - Alloscreen is due today in clinic--we will also add on renin and aldosterone. Check routine labs every 2 months. - Return to clinic in 1 year. - Ultrasounds of [place] and transplanted kidneys ordered-- [phone] - No medication changes today. documented in this [facility]10-26-2023 History of Present illness Narrative* Adwoa Evans MD - 09/19/2023 11:00 AM EDT CC: Chief Complaint Patient presents with Follow-up Follow up on warts- patient states they have worsened. Arms and legs. I, Yeimy Laws RN , served as a scribe and medical weatherization specialist for this encounter on 09/19/2023 I have reviewed this documentation scribed by Christelle Laws RN and it is accurate. This encounter was conducted by Adwoa Evans MD in the presence of a medical weatherization specialist. Duration: Year Location: Bilateral arms and legs Associated Symptoms: Warts Severity: Severe Current treatment: Cryo, nadine Rx'ed: acitretin. Covered by insurance but $100 copay. Given this and potential side effects, patient has elected not to pursue at this time PMHx: He has a past medical history of ANCA-associated vasculitis, Anxiety, Asthma, CAD (coronary artery disease), Congestive heart failure, Depression, Diabetes mellitus, Diffuse pulmonary alveolar hemorrhage (12/2018), ESRD (end stage renal disease) on dialysis, Hyperglycemia, Hyperlipidemia, Hypertension, Hypogammaglobulinemia, Hypothyroidism, AR (myocardial infarction), DAVID (obstructive sleep apnea), and Gee's granulomatosis. Physical Exam: Exam included: R arm L arm R leg L leg All normal except: Verrucous papules located on bilateral arms, hands and now on shins Impression/Plan: ICD-10-CM 1. Other viral warts B07.8 2. Disturbance of skin sensation R20.9 3. Verruca plana B07.8 Other viral warts Disturbance of skin sensation Verruca Plana Nadine injection 0.3 cc after swabbing skin with rubbing alcohol. Treated to right hand today. Nadine injection # 4 0.3 mL administered Lot: [id number] Ex: 08/16/2024 NCD: [id number] Ln2 #4 The patient would like to proceed with cryotherapy. Treated with cryosurgery x~75 on bilateral hands and right forearm, bilateral Shins after risks/benefits/alternatives discussed, consent obtained. Prescription drug management: The risks, side effects, benefits, and expected outcomes were discussed with the patient. Return to clinic precautions discussed with patient Return in about 4 weeks (around 10/17/2023). Adwoa Evans MD Policeman Department of Dermatology [facility] Instructions* Patient Instructions* Yeimy Laws - 09/19/2023 11:00 AM EDT The side-effects of cryotherapy including blistering, skin discoloration, infection, non-healing, reoccurrence and rarely scarring. CRYOSURGERY Cryosurgery involves the use of liquid nitrogen to remove or treat skin growths. When liquid nitrogen is applied, the skin turns white and then slowly reddens. Stinging during the treatment is common, but this should subside within the hour. Throbbing discomfort may occur a few hours after treatment. Taking Tylenol, elevating the treatment site, and the use of cool water compresses can help relive the discomfort. A welt will form following treatment and may become a blister. Swelling may occur 24-28 hours after cryosurgery. Keep the area clean after treatment. Please use the following steps: 1. Clean the area with soap and water 1-2 times a day. Use gentle soap and water to the area. Avoid scrubbing the area with washcloth, loofah, scrubbing brush 2. If the areas open, scab, become itchy or irritated- Apply Vaseline and a bandage 1-2 times a day. Avoid picking the area. 3. If a blister forms, it is ok to pop the blister. You can apply pressure on the blister or use a needle that has been heated with a flame or cleaned with alcohol. Do not rip off the blister skin. 4. Call the office if you are concerned about infection. Signs of infection include severe pain, redness that spreads an inch or more outside of the healing site or pus. If the wound opens or a blister pops, it is normal to have a rim of redness around the healing area with a yellow base within thehealing area. documented [facility] this [facility] Miscellaneous Notes* Telephone Encounter - Selvin Domínguez RN - 07/09/2023 1:53 PM EDT Message sent to HSAT team for review [facility]05[facility] History of Present illness Narrative* Jolynn Zhou - 04/01/2023 1:41 PM EDT [facility] OP RX OUTREACH ADVANCED: Call Information: Date and Time of Contact: 04/01/2023 1:42 PM Method of Contact: By Phone Contact Type: Prescriptions Contactor: [facility] OP Contactee: Patient Contact Outcome: Left message Shipping/Pickup: Medication Name: Envarsus mycophenolate Contact Info: Specialty ([place]) [phone] [facility] [phone] [facility] [phone] Tani [phone] Bedside Delivery ([facility]) [phone] * Monica Robin - 04/01/2023 1:41 PM EDT [facility] OP RX OUTREACH ADVANCED: Call Information: Date and Time of Contact: 04/03/2023 11:53 AM Method of Contact: By Phone Contact Type: Prescriptions Contactor: [facility] OP Contactee: Patient Shipping/Pickup: Medicare B Refill?: No Medication Name: Envarsus XR 0.75mg and Mycophenolate sodium 180mg Delivery Method: Air Delivery Location: Home Signature Required: No Mailing/Pickup Date: 04/08/2023 Shipping Address: [address] [place] [address] Contact Info: Specialty ([place]) [phone] [facility] [phone] [facility] [phone] Tani [phone] Bedside Delivery ([facility]) [phone] documented in this [facility] History of Present illness Narrative* Stacie Manrique MD - 03/21/2023 2:30 PM EDT It was my pleasure to see Mr.Patrick Jeison Mccrary, at the [facility] Cardiology NA today. As you are well aware, is a pleasant 62 y.o. male with past medical history that includes HTN, HLD, DM2, CAD, HFrEF with normalized LVEF, Gee's granulomatosis, ESRD s/p transplant (06/2020), DAVID, currently here for initial evaluation. Referred for new murmur. No chest pain. Worsening THOMASON. Rare non-limiting palpitations. Stable mild REDDY, worsening throughout the day. No other cardiac complaints: He denies orthopnea, PND, lightheadedness, dizziness, syncope. No bleeding. Chief Complaint Patient presents with New Patient Establish care with Dr. Manrique . Prior history: Patient previously followed with Dr Liu, last appointment 09/2019. Cardiac tests: ecg 02/2023: nsr, normal axis, no significant ST-T changes Nuclear stress test 03/2020: Overall: Normal pharmacological SPECT stress test without evidence of ischemia or prior myocardial infarction. Nuclear portio of the stress test 1. There is no evidence of ischemia. 2. There is no evidence of prior myocardial infarction. 3. Normal LVEF estimated at 69%. ECG portion of the stress test: Resting ECG showed normal sinus rhythm. No ischemic changes are noted at heart rate achieved. TTE 03/2020: normal left ventricular size and function. EF 55-60% normal right ventricular size and function no hemodynamically significant valvular abnormalities compared to prior study dated 01/07/19, there is further improvement in LV function. TTE 12/2018: Overall image quality is fair. The left ventricle is mildly enlarged size with moderately reduced systolic function, EF 30-35%. Diastolic function is consistent with pseudonormalization (grade II). The right ventricle is normal in size and systolic function. There is aortic sclerosis without stenosis. Unable to estimate pulmonary artery systolic pressure (PASP) No pericardial effusion No previous echo available for comparison. BP control: Appears well controlled Physical activity: Cardiac meds: Atorvastatin 10 mg od Carvedilol 12.5 mg bid Hydralazine 25 mg bid Torsemide 20 mg bid Relevant labs: TG 251, LDL 43 - 12/2022 Social history: Smoking N/A Alcohol N/A Drugs N/A Family history: Very positive for CVD Review of Systems: A full review of systems was performed with positives and pertinent negatives outlined in the history of present illness. The reminder of system review is negative. Allergy: Reviewed and updated this visit and he is allergic to losartan and mircera [methoxy polyethylene glycol-epoetin beta].. Lab Data: Lab Results Component Value Date TROP 0.16 (H) 02/12/2019 TROP 0.17 (H) 02/12/2019 TROP 0.22 (H) 02/12/2019 BNP 1,253 (H) 12/25/2018 SODIUM 143 12/31/2022 POTASSIUM 3.2 12/31/2022 GLUCOSE 144 12/31/2022 GLUCOSE 109 (H) 02/13/2019 CHLORIDE 107 12/31/2022 CO2 25.0 12/31/2022 BUN 45 12/31/2022 CREATSERUM 2.34 12/31/2022 WBC 11.4 12/31/2022 HGB 14.5 12/31/2022 HCT 47.1 12/31/2022 PLATELET 245 12/31/2022 MCV 86.6 03/19/2022 MCV 106.0 (H) 04/15/2019 Lab Results Component Value Date CHOLESTEROL 120 12/31/2022 CHOLESTEROL 121 07/18/2022 CHOLESTEROL 139 01/29/2022 TRIG 251 12/31/2022 TRIG 190 07/18/2022 TRIG 253 01/29/2022 HDL 27 12/31/2022 HDL 30 07/18/2022 HDL 31 01/29/2022 LDLCALC 43 12/31/2022 LDLCALC 53 07/18/2022 LDLCALC 57 01/29/2022 Current Medications: Current Outpatient Medications Medication Sig atorvastatin 10 MG Tab tablet Take 4 tablets by mouth daily. Take two 10mg tabs at night for a total of 20mg calcitRIOL 0.25 MCG capsule Take 1 capsule by mouth daily. Obtain one year prescription at your next clinic appointment. carveDILOL 12.5 MG tablet Take 1 tablet by mouth 2 times daily with meals. citalopram 40 MG Tab Take 1 tablet by mouth daily. denosumab (PROLIA) 60 MG/ML SOSY injection Inject 1 mL under the skin once. Dulaglutide (TRULICITY SC) Inject 0.75 mg under the skin once a week. hydrALAZINE 25 MG tablet Take 1 tablet by mouth 2 times daily. PCP/passenger representative will follow up future prescriptions for non-transplant medications. insulin detemir 100 UNIT/ML Solution Pen-injector injection Inject 10 Units under the skin at bedtime. Or as instructed by your PCP. (Patient taking differently: Inject 28 Units under the skin at bedtime. Or as instructed by your PCP.) Insulin Lispro, 1 Unit Dial, 100 UNIT/ML Solution Pen-injector Inject 12-18 Units under the skin 3 times daily (take before meals). Take 12 units with breakfast, 12 units with lunch, 18 units with dinner levothyroxine 175 MCG tablet Take 1 tablet by mouth daily every morning. Mycophenolate sodium (MYFORTIC) [address] Take 2 tablets by mouth every 12 hours. pantoprazole [address] tablet DR Take 1 tablet by mouth daily. Tacrolimus (ENVARSUS XR) 0.75 MG Tab SR 24 HR Take 1 tablet by mouth daily. torsemide 20 MG tablet Take 2 tablets by mouth daily. Acitretin (Soriatane) 10 MG capsule Take 1 capsule by mouth Daily (with dinner). predniSONE 2.5 MG tablet Take 2 tablets by mouth daily. Physical Exam: BP 126/58 (BP Location: Right arm, BP Position: Sitting) Pulse 75 Resp 18 Ht 1.778 m (5' 10) Wt 97.5 kg (215 lb) SpO2 97% BMI 30.85 kg/m Smoking Status Never Body mass index is 30.85 kg/m . General: Patient is alert and oriented x3, appears to be in no acute distress. Heent: Head is normocephalic, mucous membranes are moist Neck: is supple, no evidence of bruits, no JVD Chest: normal habitus. Lungs: clear to auscultation bilaterally. Normal chest excursion, breath sounds are equal. Abdomen: soft, no tenderness or distention. Normal bowel sounds. CV: regular rate and rhythm, quiet murmur over AV Extremities: mild lower extremity edema Skin: warm and dry without significant lesions. Lymph: no adenopathy in the neck Neuro: no focal sensory or motor deficits Psychiatric: Alert and oriented times 3. Affect is appropriate. Eye contact is appropriate. Impression / Plan: Thus, in summary, is a 62 y.o. male with HTN, HLD, DM2, CAD, HFrEF with normalized LVEF, Gee's granulomatosis, ESRD s/p transplant (06/2020), DAVID, currently here for initial evaluation. Referred for new murmur. No chest pain. Worsening THOMASON. Rare non-limiting palpitations. Stable mild REDDY, worsening throughout the day. No other cardiac complaints. HTN: appears well controlled HLD: LDL well controlled, TG elevated - we discussed the need for better DM control and necessary dietary changes HFrEF: - no symptoms -appears euvolemic -last TTE with normal LVEF -on carvedilol, hydralazine and torsemide (last GFR 37, previously <30) Murmur: -TTE ordered Worsening THOMASON: -nuclear stress test Palpitations: -rare and non-limiting - patient not interested in MCT at this point I have ordered the following: TTE Nuclear stress test Orders Placed This Encounter ECHOCARDIOGRAM UT ECG, CLINIC PERFORMED We will plan on Return in about 5 months (around 08/21/2023).. If I can be of any further assistance, please do not hesitate to contact me. Thank you for the opportunity to participate in the care of your patient. I will continue to followhim at the [facility]. In the meantime, please do not hesitate to contact me with any questions or concerns that you may have. Sincerely, Stacie Manrique M.D. * Jakub Salazar RN - 03/21/2023 2:30 PM EDT 12 Lead EKG performed per provider's order, per policy, and given to Dr. Manrique for interpretation. documented in this [facility]04-27-2023 Instructions* Patient Instructions* Stacie Manrique MD - 03/21/2023 2:30 PM EDT INSTRUCTIONS Please keep checking your blood pressure and heart rate twice a day and send me the number in 1-2 weeks. I ordered echo to take pictures of your heart. I ordered nuclear stress test to see if there are any significant blockages in your heart. Please let me know if your palpitations get worse - we will order event monitor to see if you have any abnormal heart beats. GENERAL INFORMATION SYMPTOM PRECAUTIONS: Please call our office or seek immediate medical attention (depending on the acuity) if you have increased, unrelenting, or unexpected shortness of breath, chest discomfort, syncope (passing out), fluid retention or other concerning symptoms that may have been explained during your visit. [facility]: Please ensure that you or your designee activate and check your [employer] account periodically, if possible. ([email or web address]). Most test results that are normal, satisfactory, and/or do not require management changes will be communicated via [employer]. Your medical records may be requested/downloaded via your [employer] account. MEDICATION COSTS: Please contact us if your pharmacy charges a copay that is unacceptably high. Most often, your health care team is not able to predict what you will be charged for your medications.IntY ([employer]cept[employer]) is a helpful website (not affiliated with [facility]) that can help direct you to pharmacies with the lowest prices. Sometimes, there are drug coupon or assistance programs available that can considerably reduce your medication costs, so please call our office for assistance if needed. AVAILABILITY: Due to inpatient, administrative, and teaching duties, my clinic availability is limited. If our scheduling/access team suggests the first available time for a follow up visit seems inappropriately far off, please contact our office so we can reach a solution. It was nice seeing you today. Please do not hesitate to contact our office staff with any questionsor concerns. documented in this encounterMi[facility]04-27-2023 Miscellaneous Notes* Addendum Note - Stacie Manrique MD - 03/21/2023 2:30 PM EDTAddended by: STACIE MANRIQUE on: 03/21/2023 03:31 PM Modules accepted: Orders [facility]OS[facility] Note* Addendum Note - Stacie Manrique MD - 03/21/2023 2:30 PM EDTAddended by: STACIE MANRIQUE on: 03/21/2023 03:31 PM Modules accepted: Orders [facility]04-[facility] Note* Addendum Note - Stacie Manrique MD - 03/21/2023 2:30 PM EDTAddended by: STACIE MANRIQUE on: 03/21/2023 03:31 PM Modules accepted: Orders [facility]04-13-2023 History of Present illness Narrative* Jolynn Zhou - 03/07/2023 1:26 PM EDT [facility]: Call Information: Date and Time of Contact: 03/07/2023 1:32 PM Method of Contact: By Phone Contact Type: Prescriptions Contactor: [facility] Contactee: Patient Contact Outcome: Patient to call back (patient phone kept going in and out. Service issues.Explained to clal us back - ector) Shipping/Pickup: Medication Name: Mycophenolate sod 180 mg Contact Info: Specialty ([place]) [phone] [facility] [phone] [facility] [phone] Tani [phone] Bedside Delivery ([facility]) [phone] * Vinicio Beckford - 03/07/2023 1:26 PM EDT [facility]: Call Information: Date and Time of Contact: 03/07/2023 1:38 PM Method of Contact: By Phone Contact Type: Prescriptions Contactor: [facility] Contactee: Patient Shipping/Pickup: Medicare B Refill?: No Medication Name: Mycophenolate Delivery Method: Air Delivery Location: Home Signature Required: No Mailing/Pickup Date: 03/08/2023 Shipping Address: [facility] Contact Info: Specialty ([place]) [phone] [place] [phone] [place] [phone] Tani [phone] Bedside Delivery ([facility]) [phone] documented in this encounterMiami [facility] Hospital03-06-2023 History of Present illness Narrative* Jerrod Multani - 01/28/2023 3:20 PM EST Patient has verified full name and . * Megan Canales MD - 01/28/2023 3:20 PM EST Mr. Mccrary presents [facility] on 01[facility]28/2023 for follow up of ANCA Vasculitis History of Present Illness / Interval History: In clinic 01/28/2023 Robert Mccrary says that he is doing well. He is tolerating his kidney transplant well and has been 2 years since He has been doing well with his transplant - he continues on myfotic 360mg bid and tacromilus -kidney function is stable - he cut a callous off his own fit and it got infected and he is a boot now - he is still on 5mg of prednisone He has a new CPAP machine and is sleeping well and his BP is better. -his A1c is up again and he is working - he is not exercising He is active and feels he is over doing and the really cold Is still taking Bactrim and Pantoprazole. Denies other pulmonary issues, no hemoptysis, coughing, wheezing. No sinus issues, epistaxis. Does report decreased appetite. Medications: Outpatient Medications Prior to Visit Medication Sig Dispense Refill Acitretin (Soriatane) 10 MG capsule Take 1 capsule by mouth Daily (with dinner). 30 capsule 2 atorvastatin 10 MG Tab tablet Take 4 tablets by mouth daily. Take two 10mg tabs at night for a total of 20mg calcitRIOL 0.25 MCG capsule Take 1 capsule by mouth daily. Obtain one year prescription at your next clinic appointment. 90 capsule 1 carveDILOL 12.5 MG tablet Take 1 tablet by mouth 2 times daily with meals. citalopram 40 MG Tab Take 1 tablet by mouth daily. Dulaglutide (TRULICITY SC) Inject 0.75 mg under the skin once a week. hydrALAZINE 25 MG tablet Take 1 tablet by mouth 2 times daily. PCP/passenger representative will follow up future prescriptions for non-transplant medications. 180 tablet 0 insulin detemir 100 UNIT/ML Solution Pen-injector injection Inject 10 Units under the skin at bedtime. Or as instructed by your PCP. (Patient taking differently: Inject 28 Units under the skin at bedtime. Or as instructed by your PCP.) 1 Prefilled Pen/Syringe 3 Insulin Lispro, 1 Unit Dial, 100 UNIT/ML Solution Pen-injector Inject 12-18 Units under the skin 3 times daily (take before meals). Take 12 units with breakfast, 12 units with lunch, 18 units with dinner levothyroxine 175 MCG tablet Take 1 tablet by mouth daily every morning. 11 Mycophenolate sodium (MYFORTIC) [address] Take 2 tablets by mouth every 12 hours. 120 tablet 11 pantoprazole [address] tablet DR Take 1 tablet by mouth daily. 30 tablet 11 predniSONE 2.5 MG tablet Take 2 tablets by mouth daily. 60 tablet 5 Tacrolimus (ENVARSUS XR) 0.75 MG Tab SR 24 HR Take 1 tablet by mouth daily. 90 tablet 1 torsemide 20 MG tablet Take 2 tablets by mouth daily. 180 tablet 3 No facility-administered medications prior to visit. 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 ESRD (end stage renal disease) on dialysis IHD T//Sat - Left fistula Hyperglycemia Hyperlipidemia Hypertension Hypogammaglobulinemia Hypothyroidism AR (myocardial infarction) Pt reports he was told he had an AR in 2018 DAVID (obstructive sleep apnea) on BiPaP Gee's granulomatosis Family History Problem Relation Age of Onset Arthritis - Rheumatoid Mother Diabetes Mother Myocardial Infarction Father 56 Colorectal Cancer Father Heart Disease - Other Paternal Grandmother Heart Disease - Other Paternal Grandfather Arrhythmia Neg Hx Social History Socioeconomic History Marital status: Spouse name: Not on file Number of children: Not on file Years of education: Not on file Highest education level: Not on file Occupational History Not on file Tobacco Use Smoking status: Never Smokeless tobacco: Former Types: Snuff Quit date: 12/05/2018 Tobacco comments: 02/06/21 Vaping Use Vaping Use: Never used Substance and Sexual Activity Alcohol use: Never Comment: 02/06/21 Drug use: Never Comment: 02/06/21 Sexual activity: Not on file Other Topics Concern Not on file Social History Narrative Not on file Social Determinants of Health Financial Resource Strain: Not on file Food Insecurity: Not on file Transportation Needs: Not on file Physical Activity: Not on file Stress: Not on file Social Connections: Not on file Intimate Partner Violence: Not on file Housing Stability: Not on file Review of Systems: A complete review of systems was done and was negative except for what was noted in the HPI. Physical Examination: Blood pressure 138/70, pulse 70, height 1.778 m (5' 10), weight 98.4 kg (217 lb), SpO2 90 %. Body mass index is 31.14 kg/m . GENERAL: appears in no apparent distress. HEENT: No oral ulcers, malar rash, parotid gland enlargement, or uveitis noted. SKIN: (LIMITED), no visible rashes, no petechiae noted. LUNGS: no audible wheezes MUSCULOSKELETAL: no visible synovitis NEUROLOGIC: Alert and oriented, Diagnostic Data: No visits with results within 1 Day(s) from this visit. Latest known visit with results is: Notes/Results Only on 12/31/2022 Component Date Value Ref Range Status ALBUMIN, MANUAL ENTER 12/31/2022 3.6 Final ALKALINE PHOSPHATASE, MANUAL ENTER 12/31/2022 131 Final ALT, MANUAL ENTER 12/31/2022 26 Final AST, MANUAL ENTER 12/31/2022 13 Final Bilirubin, Total, MANUAL ENTER 12/31/2022 0.6 Final CALCIUM (CA), MANUAL ENTER 12/31/2022 8.8 Final Phosphate (PO4), Manual Enter 12/31/2022 3.5 Final MAGNESIUM (MG), MANUAL ENTER 12/31/2022 1.5 Final HEMATOCRIT (HCT), MANUAL ENTER 12/31/2022 47.1 Final Hemoglobin (HGB), MANUAL ENTER 12/31/2022 14.5 Final PLATELETS, MANUAL ENTER 12/31/2022 245 Final WBC, MANUAL ENTER 12/31/2022 11.4 Final ESTIMATED GFR, NON AMER, M* 12/31/2022 30 Final ESTIMATED GFR, , M* 12/31/2022 37 Final Blood Urea Nitrogen (BUN), MANUAL * 12/31/2022 45 Final Chloride (CL), MANUAL ENTER 12/31/2022 107 Final Carbon Diox(CO2), MANUAL ENTER 12/31/2022 25.0 Final CREATININE, SERUM, MANUAL ENTER 12/31/2022 2.34 Final GLUCOSE, MANUAL ENTER 12/31/2022 144 Final POTASSIUM (K+), MANUAL ENTER 12/31/2022 3.2 Final SODIUM (NA), MANUAL ENTER 12/31/2022 143 mmol/L Final TOTAL CHOLESTERL, MANUAL ENTER 12/31/2022 120 Final TRIGLYCERIDES, MANUAL ENTER 12/31/2022 251 Final HDL, MANUAL ENTER 12/31/2022 27 Final LDL, MANUAL ENTER 12/31/2022 43 Final TRANSFERRIN, MANUAL ENTER 12/31/2022 190 Final SERUM IRON, MANUAL ENTER 12/31/2022 70 Final SERUM FERRITIN, MANUAL ENTER 12/31/2022 264 Final TIBC, MANUAL ENTER 12/31/2022 256 Final URIC ACID, SERUM, MANUAL ENTER 12/31/2022 12.0 Final BASOPHIL (DIFF), MANUAL ENTER 12/31/2022 0.4 Final EOSINOPHIL (DIFF), MANUAL ENTER 12/31/2022 1.1 Final LYMPHOCYTES (DIFF), MANUAL ENTER 12/31/2022 9.1 Final MONOCYTE (DIFF), MANUAL ENTER 12/31/2022 8.9 Final NEUTROPHILS (DIFF), MANUAL ENTER 12/31/2022 79.5 Final TACROLIMUS LEVEL(TROUGH),MANUAL EN* 12/31/2022 6.8 Final Assessment: and Plans: Mr. Mccrary presents to [facility] on 01/28/2023 for follow up of ANCA vasculitis doing well on rituximab in remission with transplant -blood work to be updated this week ANCA Vasculitis with ESRD s/p kidney transplant with DAH now improved and in remission - working on fatigue and energy by starting to exercise more - continue 5mg Predisone daily ongoing and discuss with transplant team about weaning steriods -conintue with myfortic and tac per transplant - Bactrim and pantoprazole per pulmonary Recommend he does not perform surgery on his own foot again. 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 Megan Canales MD documented in this encounterMi[facility]03-06-2023 Instructions* Patient Instructions* Megan Canales MD - 01/28/2023 3:20 PM EST Return in [address] Bai and Dr. Nunes Work on exercise!!!!!!!!!!! See cardiology documented in this encounterMiami Valley Hospital02-20-2023 History of Present illness Narrative* Alix Burns - 01/14/2023 11:14 AM EST [facility]RE[facility]: Call Information: Date and Time of Contact: 01/14/2023 11:16 AM Method of Contact: By Phone Contact Type: Prescriptions Contactor: [facility] Contactee: Patient Contact Outcome: Patient declined to fill Patient Declined Fill Detail/Reason: Patient declined to fill the mycophenolate at this time due tohaving a full bottle. Patient stated taking as prescribed but has had some hospital stays and all. Shipping/Pickup: Medicare B Refill?: No Medication Name: Envarsus Xr 0.75 mg Delivery Method: Air Delivery Location: Home Signature Required: No Mailing/Pickup Date: 01/15/2023 Shipping Address: [address] [place] [address] Contact Info: Specialty ([place]) [phone] [facility] [phone] [facility] [phone] Tani [phone] Bedside Delivery ([facility]) [phone] * All Banks - 01/14/2023 11:14 AM EST [facility]REACH [facility]VANCED: Call Information: Date and Time of Contact: 02/07/2023 2:34 PM Method of Contact: By Phone Contact Type: Prescriptions Contactor: [facility] Contactee: Patient Shipping/Pickup: Medicare B Refill?: No Medication Name: Envarsus xr 0.75, and myco 180 Delivery Method: Air Delivery Location: Home Signature Required: No Mailing/Pickup Date: 02/08/2023 Shipping Address: [address] [place] [id number] Contact Info: Specialty ([place]) [phone] [facility] [phone] [facility] [phone] Tani [phone] Bedside Delivery ([facility]) [phone] [facility] Telephone encounter Note* Telephone Encounter - Nicolasa Unger - 12/25/2022 2:23 PM EST Medication Access Team coordinated the following: [facility]: Derm Prior Authorization Per the patient's insurance provider, Raula, the prior authorization for ACITRETIN (off-label) wasapproved. Authorization number: Authorization start date: 12/24/2022 Authorization end date: 11/24/2023 Non-Specialty Prescriptions: 1, 15-20 min $100 copay. Per note on rx, [facility] spoke with patient and he is unsure if he wants to proceed. He is aware to call pharmacy if he decides that he wants to. Nicolasa Unger [facility]01-[facility] Miscellaneous Notes* Telephone Encounter - Nicolasa Unger - 12/25/2022 2:23 PM EST Medication Access Team coordinated the following: [facility] Clinics: Derm Prior Authorization Per the patient's insurance provider, [email or web address], the prior authorization for ACITRETIN (off-label) wasapproved. Authorization number: Authorization start date: 12/24/2022 Authorization end date: 11/24/2023 Non-Specialty Prescriptions: 1, 15-20 min $100 copay. Per note on rx, [facility] spoke with patient and he is unsure if he wants to proceed. He is aware to call pharmacy if he decides that he wants to. Nicolasa Unger * Telephone Encounter - Nicolasa Unger - 12/19/2022 5:56 PM EST Images from the original note were not included. Medication Access Team coordinated the following: [facility] Clin[facility]: Derm Benefit Investigation Based on a benefits investigation with the insurance company, [employer], ACITRETIN will require a prior authorization. Non-Specialty Prescriptions: 1, 8-10 min Routing to provider to clarify associated ICD10 for PA. Nicolasa Unger documented in this encounterMiami Valley Hospital01-25-2023 Telephone encounter Note* Telephone Encounter - Nicolasa Unger - 12/19/2022 5:56 PM EST Images from the original note were not included. Medication Access Team coordinated the following: [facility] Clin[facility]: Derm Benefit Investigation Based on a benefits investigation with the insurance company, [employer], ACITRETIN will require a prior authorization. Non-Specialty Prescriptions: 1, 8-10 min Routing to provider to clarify associated ICD10 for PA. Nicolasa Unger [facility]01-20-[facility] History of Present illness Narrative* Jolynn Zhou - 12/14/2022 1:49 PM EST [facility] OUTREACH ADVANC[facility]: Call Information: Date and Time of Contact: 12/14/2022 1:54 PM Method of Contact: By Phone Contact Type: Prescriptions Contactor: [facility] Contactee: Patient Shipping/Pickup: Medicare B Refill?: No Medication Name: Mycophenolate sod 180mg Delivery Method: Air Delivery Location: Home Signature Required: No Mailing/Pickup Date: 12/18/2022 Shipping Address: [address] [place] [address] Contact Info: Specialty ([place]) [phone] [facility] [phone] [facility] [phone] Tani [phone] Bedside Delivery ([facility]) [phone] documented in this encounterOS[facility] History of Present illness Narrative* Jolynn Zhou - 12/14/2022 1:49 PM EST [facility] OUTREACH ADVANCED: Call Information: Date and Time of Contact: 12/14/2022 1:54 PM Method of Contact: By Phone Contact Type: Prescriptions Contactor: [facility] Contactee: Patient Shipping/Pickup: Medicare B Refill?: No Medication Name: Mycophenolate sod 180mg Delivery Method: Air Delivery Location: Home Signature Required: No Mailing/Pickup Date: 12/18/2022 Shipping Address: [address] [place] [address] Contact Info: Specialty ([place]) [phone] [facility] [phone] [facility] [phone] Tani [phone] Bedside Delivery ([facility]) [phone] * Jolynn Zhou - 12/14/2022 1:49 PM EST [facility] RX OUTREACH ADVANCED: Call Information: Date and Time of Contact: 12/18/2022 10:50 AM Method of Contact: By Phone Contact Type: Prescriptions Contactor: [facility] Contactee: Patient Contact Outcome: Left message Shipping/Pickup: Medicare B Refill?: No Medication Name: Envarsus xr 0.5 Contact Info: Specialty ([place]) [phone] [facility] [phone] [facility] [phone] Tani [phone] Bedside Delivery ([facility]) [phone] documented in this encounterMiami Valley Hospital12-22-2022 History of Present illness Narrative* Adwoa Evans MD - 11/15/2022 2:45 PM EST Images from the original note were not included. CC: Chief Complaint Patient presents with New Patient I, Ector cabrera MA, served as a scribe and medical weatherization specialist for this encounter on 11/15/2022 at2:46 PM. I have reviewed this documentation scribed by Ector Cabrera MA and it is accurate. Duration: year Location: hands and arms Associated Symptoms: scaling Severity: mild Modifying factors/treatments tried: none Pt has hX of PSO , cleared after transplant From [place], [place]-- near Dr. Bryant Orozco whos booked out almost 1 year! Synopsis: Personal skin cancer history: none Family skin cancer history: none Skin phenotype: Type III Skin type Typical features Tanning ability I Pale white skin, blue/green eyes, blond/red hair Always sellers, does not rodney II Fair skin, blue eyes Sellers easily, tans poorly III Darker white skin Tans after initial burn IV Light brown skin Sellers minimally, tans easily V Brown skin Rarely sellers, tans darkly easily Dark brown or black skin Never sellers, always tans darkly Type of transplant: Kidney Transplant date/s: 06/2020 Current immunosuppression medications include: Current Immunosuppressive Medication(s) Immunosuppressive Agents mycophenolate sodium (MYFORTIC) [address] Take 2 tablets by mouth every 12 hours. Tacrolimus (Envarsus XR) 0.75 MG Tab SR 24 HR Take 1 tablet by mouth daily. Previous field treatment (photodynamic therapy/Aba light, topical cream, TCA peel) none Other physician visits include: Transplant Surgeon: unknown Transplant Physician: Dr. Jack Dentist: Dr. Shahid Reveles Pan Reclaim Processor: none Automotive Center Manager: n/a Status: DERMATOLOGIC HISTORY Original Hair Color: Black True Eye Color: blue Number of Peeling/Blistering Sunburns: ,rolo Age for Majority of Sunburns: 25-30 Sunscreen Use as Child: Yes Current Sunscreen Use: yes History of Dysplastic Nevi: No Tanning Bed Use: No Occupational Sun Exposure: No Hobby Sun Exposure: Yes Immunodeficiency Disorder: Yes Chemotherapy Exposure: No Radiation Therapy: No Exposure to Chemicals: No Therapeutic UV light exposure: No Service: No Performs monthly self-skin exams: No Avoids the sun during peak hours: No Wears protective clothing: No Takes vitamin D3 supplementation: No Past Medical/Surgical History Information reviewed today from written Patient Intake Form and there are no significant changes. Past Family/Social History Information reviewed today from written Patient Intake Form and there are no significant changes. Medications/Allergies/Immunizations Information reviewed today from written Patient Intake Form and there are no significant changes. Review of Systems 12 point review of systems was performed today and reviewed from written patient intake form with positive findings noted in the patient's HPI. Physical exam: Physical Exam: Exam included: Scalp Face Lips Eyelids, conj. neck Back chest abdomen buttocks R arm L arm R leg L leg Digits, nails Genitalia All normal except: Actinic damage to sun exposed areas Brown, waxy, stuck on, papules/plaques scattered on the skin surface Scarring on lower legs/ankles from blisters that came up last summer, he popped them and they have since scarred. No recurrence. Brown, regular, evenly pigmented macules and patches on: trunk Yellow, dome shaped papules on forehead Numerous pink, scaly papules on dorsal hands, forearms, neck, few on legs Assessment & Plan: Based on patient's personal history, family history, skin exam and transplantation type, we recommend skin exams every 1-2 years. ICD-10-CM 1. Actinic skin damage L57.8 2. SK (seborrheic keratosis) L82.1 3. H/O immunosuppressive therapy Z92.25 4. Melanocytic nevi of trunk D22.5 5. Sebaceous hyperplasia L73.8 6. Neoplasm of uncertain behavior of skin D48.5 Sun damaged skin- Chronic: Stable. Recommend photoprotective measures including SPF, UPF clothing, hats, and sunglasses. Recommend over the counter medication: broad spectrum SPF 50 Seborrheic keratosis: patient counseled on banal nature of lesions, continue to monitor Immunosuppressive therapy: Discussed increased risk of skin cancer with patient Discussed photoprotective measures Melanocytic nevi: banal appearing, continue to monitor. Patient counseled on photoprotection A clinical determination that a skin lesion is not cancerous was made Sebaceous hyperplasia: banal nature discussed. Patient counseled on cosmetic treatment options. Rash: Neoplasm of uncertain behavior of skin: tangential biopsy x 1 after risks, benefits, alternatives discussed. Informed consent obtained. 1. Site left wrist-- VV vs psoriasis vs other Explained the risk of scarring, bleeding, infection and wound care instructions. Area prepped with alcohol and anesthetized with 1cc intradermal 1% lidocaine with 1:100,000 epinephrine Specimen submitted to pathology <1cc estimated blood loss, procedure well-tolerated Wound covered with aquaphor and bandaid Wound care instructions given Dermatology education and resources specific to the transplant patient provided and reviewed includin. Reduce the Incidence of Skin Cancer After Organ Transplantation (AT-RISC ALLIANCE) 2. Skin Cancer After Organ Transplantation: Prevention is the Garsia (AT-RISC ALLIANCE) 3. International Transplant Skin Cancer Collaborative (ITSCC) http://www.itscc.org/ [facility] Inst[facility]* Patient Instructions* Ector Cabrera - 11/15/2022 2:45 PM EST Please remember to arrive at your appointment 15 minutes early for registration. Skin Cancer Prevention 1. Every day, apply a broad spectrum sunscreen SPF 50. Reapply every 2 hours when out in the sun for extended periods of time. 2. If possible, avoid being out in the sun during peak hours of 10am-4pm. 3. Wear protective clothing when out in the sun during sun exposure. Examples include broad-rimmed hats, long sleeved shirts, or pants. You can also purchase clothing with built in sun protection called UPF or ultraviolet protection factor. Many sports store sell clothing with this built in. Some popular brands include [employer] [place], [employer], and [place] which sell a variety of clothing with built in UPF. Sun-protective clothing also may be found at [employer] stores such as [employer]. 4. Wear protective sunglasses while out in the sun. Purchase glasses that block 99 to 100 percent of both UVA and UVB rays. Avoid sunglasses that are labeled cosmetic and those that don't offer details on UV protection. 5. Perform monthly self-skin exams. Enlist the help of a friend, family member or partner to check your back. Observe for any new lesions or moles. Watch for changes in color, shape and size. Use the handy reminder of the ABCDEs to identify potentially concerning features of your skin lesions. Look for lesions with: -Asymmetry. The left side looks different than the right. The top is different from the bottom. -Borders. The borders are irregular or resemble a fluffy cloud or a puzzle piece. -Color. The mole has variation of colors including rodney, brown, black, blue, red, pink And white. -Diameter. The mole is increasing in size or bigger than 6 mm (approx size of a pencil eraser) -Evolving. If any of your moles are changing in size, shape or color Call your audio production manager at to schedule an appointment if you detect a concerning lesion on self skin examination. Also, schedule an appointment for a check if you have any skin lesionsthat are painful, bleeding, or non-healing. These may be symptoms of non-melanoma skin cancer (squamous cell carcinoma, basal cell carcinoma). 6. If you have a history of melanoma, also examine the glands in your neck, armpits and groin. Yourdermatologist or oncologist with assist you with identifying the correct areas to examine. 7. Consider taking Vitamin D 3 supplementation of 1000 IU if practicing strict photoprotection. 8. If you have a personal or family history of melanoma, we recommend first degree relatives (your parents, your brothers and sisters and your children) receive a full skin exam by a audio production manager. 9. Please remove all makeup and nail montserratian prior to your audio production manager appointment. Makeup and nail montserratian can hide skin cancers and we recommend having full body skin exams performed with both completely removed. Wound Care for Open or Sutured Wounds Wound care is done to clean the wound, prevent infection and prevent scab formation. Wounds heal faster when scabs are not allowed to form on wounds. Biopsy and Electrodessication and Curretage (EDC) sites Leave original bandaid in place for 24 Wash the area with gentle soap and water daily. Do not use a wash cloth, loofah or scrubbing brush on area Make sure that the site is the last thing washed before getting out of the shower Pat area dry, apply a layer of Vaseline or Aquaphor using a clean q-tip and apply a bandage Do not use neosporin or polysporin to biopsy or EDC sites Repeat until healed (or until stitches are removed if stitches are placed) It is normal for the site to have a rim of redness and a yellow/red base while healing Call the office if you are concerned about infection or have severe pain, pus, redness spreading > 1 inch outside of the biopsy site We will make every effort to communicate your biopsy test results within ten business days. Certainresults may take longer, but are usually received within fourteen days. Results are autoreleased on [employer] before being reviewed by the physician. Please allow 3 businessdays after results are released for the physician to review results and determine management. Surgical Sites Leave original dressing in place for 48 hours After 48 hours, wash the area with gentle soap and water daily. Do not use a wash cloth, loofah or scrubbing brush on area Wash your hands with soap and water before removing bandage If the bandage is stuck, wet the dressing/bandage with tap water, wait 3-5 minutes and then remove it. Make sure that the surgery site is the last thing washed before getting out of the shower Avoid submerging wound in a bath tub (showers are fine) for 14 days Pat area dry, apply a layer of Vaseline or Aquaphor with a clean qtip and apply a bandage Do NOT use neosporin or polysporin to surgery sites Repeat until stitches are removed. If stitches are all under the skin, repeat for 14 days. Redness along the stitch line is normal Call the office if you are concerned about infection or have severe pain, pus, redness spreading > 1 inch outside the stitch line Avoid elevating your heart rate for atleast 3 days post surgery to prevent bleeding Avoid heavy lifting, exercise, swimming, golfing, fishing, etc until stitches removed to avoid opening wound. If all stitches are under the skin, gradually return to normal activity starting at 14 days Bleeding: Apply direct pressure firmly over the wound for 20 minutes, timed by the clock. If bleeding has notstopped, apply pressure for 20 more minutes along with ice. If bleeding still has not stopped, continue holding pressure on the wound and call your audio production manager or go to your local emergency room. Pain: Local anesthesia will wear off in approximately 1-3 hours. The area may burn, throb, feel tender orsore but should NOT be excruciatingly painful. If your wound hurts, take Tylenol or Extra-Strength Tylenol (acetaminophen) as directed on bottle, as needed. If Tylenol does not control the pain, alternate between Tylenol and Ibuprofen Call your audio production manager for pain not controlled by Tylenol and Ibuprofen, this may be a sign of infection Do not take Tylenol or Ibuprofen if instructed to avoid these medications by a Physician What to Expect after Surgery The wound may have a slight pink or brown colored fluid leaking from it. This may show on the dressing. Mild pain. Mild tenderness at the wound site, like a bruise. Mild color changes to skin, like a bruise. A black eye can appear with facial surgeries. Swelling of the eyelids may happen with facial surgeries. Swelling will get worse for the first three days before it will start to improve. To reduce the amount of swelling that may occur, you can apply an ice pack to the area once an hour for 20 minutes fly time. Call your Doctor if you have: Bleeding not controlled by pressure. Increase in redness Pain not controlled by Tylenol and Ibuprofen Swelling Increases or severe pain Drainage of pus Fever over 100.5 degrees Red streaks extending from the operative site. A marble size bump (hematoma) under the skin that is blue/purple/and/or red To reduce scarring: Silicone scar sheets can be applied to the scar or silicone scar gel can be massaged into the scar once the stitches are removed (over the counter) Who to call [facility] at for problems Saturday through Saturday in the morning or afternoon. For Urgent problems in the evenings or after hours, call the hospital filteration operator at and ask for the Library Aide test lead application testing. TEST RESULTS: We will make every effort to communicate your biopsy test results within ten business days. Certainresults may take longer, but are usually received within fourteen days. Results are autoreleased on [employer] before being reviewed by the physician. Please allow 3 businessdays after results are released for the physician to review results and determine management. Your results will be communicated to you in one of three ways; Mailed to you Syn[employer] Message Reviewed with you over the phone If you have any questions about your visit today or your tests, please call us at [phone] Option 4. Please wait 14 days prior to calling for test results [facility] History of Present illness Narrative* Alix Burns - 10/24/2022 1:09 PM EST [facility]: Call Information: Date and Time of Contact: 10/24/2022 1:10 PM Method of Contact: By Phone Contact Type: Prescriptions Contactor: [facility] Contactee: Patient Shipping/Pickup: Medicare B Refill?: No Medication Name: Envarsus Xr 0.75 mg and mycophenolate sodium 180 mg Delivery Method: Air Delivery Location: Home Signature Required: No Mailing/Pickup Date: 10/24/2022 Shipping Address: [address] [place] [address] Contact Info: Specialty (Freedom) [phone] Harvinder [phone] [facility] [phone] Tani [phone] Bedside Delivery ([facility]) [phone] * Jacob Suarez RPh,PharmD - 10/24/2022 1:09 PM EST [facility]: Pre-Verification/Specialty Assessment/Disease Mgt: Medication(s) Name: Envarsus and mycophenolate Lab Review: CBC w/diff, Drug level and Chem 6 (with GFR) Assessment type (Select either Initial or Re-Assessment): Re-Assessment Specialty Assessment Review: Name, Age, Sex Demographics Therapeutic Goals Health Problems/Diagnoses/Comorbidities Pertinent Medical History Adverse Effects with Enrolled (and related) Medications Recent Labs Medications (dose, route, frequency, and interactions) Allergies Dietary Requirements Patient Comprehension Appropriate Use Adherence Specialty Medication Management Mental Reasoning, Judgement, Orientation, and Memory Financial Resources Usual Environment Functional Limitations Emergency Contact(s) Person(s) responsible for care Care Plan Activities Completed: Updated Assessment Findings: Kidney transplant 07/17/20. Current IS: envarsus 0.75 mg and mycophenolate 360 mg BID. No adherence, safety, or efficacy issues identified. Last transplant clinic visit 09/17/22. Monitoring Parameter Review: Within normal limits Contact Info: Specialty (Freedom) [phone] [facility] [phone] [facility] [phone] [facility] [phone] Bedside Delivery ([facility]) [phone] [facility] History of Present illness Narrative* Carlos Villela RN - 09/17/2022 1:15 PM EDT Images from the original note were not included. PREP SHEET FOR NEPHROLOGY CLINIC Patient Name: Robert Mccrary Wind Farm Support Specialist: Alma Keating Date of Kidney Transplant: 07/17/2020 Primary Disease: Gee's Granulomatosis Transplant School Psychologist Assistant: Armando Jack Primary Care physician: Marques Casanova Last Transplant Appointment: 03/19/22 MONITORING: DGF no HLA Match: A 2, B 2, DR 1 Living Donor? no Campath Recipient? no Increased Risk donor? yes Done 08/18/2020 EBV IgG Donor / Recipient R+/D- CMV IgG Donor / Recipient: D+/R+ Valcyte DC'd 07/18/20 On Valcyte or frequent labs? yes Ureteral Stent? yes Removed / Removal Sched? yes When? 08/16/2020-done Hepatitis C+/LUIS- donor? no Hepatitis C+/LUIS+ donor? yes Sae Status In Protocol Box yes Has recipient converted to Hep C+? yes HCV genotype for PA 07/20/2020- 2217 PA for HCV submitted? yes Submitted on 08/02/2020-received Patient started treatment? no 08/26/2020 Hep C PCR at completion of HCV therapy collected on: NA 11/24/2020 Hep C PCR 3 months post completion collected on: NA 02/22/2021 Hep C PCR 6 months post completion collected on: NA 05/23/2021 08/18/20 09:14 11/26/20 08:50 12/15/20 09:53 02/13/21 10:58 05/22/21 08:35 Hepatitis C PCR (quantative), MANUAL ENTER [id number] not detected not detected Not Detected not detected IMMUNOSUPPRESSION AND LABS: Current Immunosuppressive Medication(s) Immunosuppressive Agents mycophenolate sodium (MYFORTIC) [address] Take 2 tablets by mouth every 12 hours. Tacrolimus (Envarsus XR) 0.75 MG Tab SR 24 HR Take 1 tablet by mouth daily. I/S levels: Lab Results Component Value Date CYCLOSPORIN2 379 06/12/2021 CYCLOSPORIN2 492 04/12/2021 CYCLOSPORIN2 672 01/30/2021 [id number] 330 06/05/2021 [id number] 504 05/22/2021 QGIPOOTTR5YY 321 05/08/2021 No components found for: CYCLOSPORINE, 2HR POST No results found for: SIROLIMUS, RAPAMUNE, RAPAMYCIN No results found for: EVEROLIMUS, EVRLMSTRGH, EVERTRGHMANE Lab Results Component Value Date TACROLIMUS 5.6 03/19/2022 TACROLIMUS 7.1 09/18/2021 TACROLIMUS 32.3 (H) 08/04/2020 TACROTRGHMAN 5.0 09/04/2022 TACROTRGHMAN 6.6 07/18/2022 TACROTRGHMAN 6.5 05/02/2022 CHEMISTRY: Lab Results Component Value Date CREATSERUM 2.31 09/04/2022 CREATSERUM 2.09 07/18/2022 CREATSERUM 2.13 05/02/2022 HEMATOLOGY: Lab Results Component Value Date WBC 8.9 09/04/2022 WBC 11.7 07/18/2022 WBC 11.5 05/02/2022 Lab Results Component Value Date HGB 14.3 09/04/2022 HGB 14.6 07/18/2022 HGB 15.3 05/02/2022 IMMUNOLOGY: Lab Results Component Value Date CMVPCR no DNA detected 01/16/2021 CMVPCR negative 01/09/2021 CMVPCR no DNA detected 01/02/2021 EBVBYPCR <1,000 11/30/2020 EBVBYPCR <1,000 11/07/2020 EBVDNAVLME negative 12/12/2020 EBVDNAVLME negative 10/17/2020 EBVDNAVLME negative 08/22/2020 BKVIRALP <500 09/18/2021 BKVIRALP <500 06/12/2021 BKVIRALP <500 04/12/2021 CURRENT MEDICATIONS: Dulaglutide, Insulin Lispro (1 Unit Dial), Tacrolimus, atorvastatin, calcitRIOL, carveDILOL, citalopram, hydrALAZINE, insulin detemir, levothyroxine, mycophenolate sodium, pantoprazole, potassium chloride, predniSONE, and torsemide None Specified Change in lab frequency / new order today: Annual lab letter- 02/07/22 Labs needed in clinic today? yes enter orders & screen shot Annabelle [facility] [place] COORD[facility] NOTES: * Trisha Penaloza RN - 09/17/2022 1:15 PM EDT Images from the original note were not included. Nursing Assessment In Clinic (see Clinic Prep Sheet for additional information) Patient is accompanied to clinic today by: Significant other Did patient require a wheelchair or medical transport for appointment: no Did front desk admin confirm current address and insurance information is correct: yes Currently employed: yes VITALS BP Readings from Last 3 Encounters: 09/17/22 144/72 05/23/22 129/61 03/19/22 145/76 Pulse Readings from Last 3 Encounters: 09/17/22 65 05/23/22 65 03/19/22 67 Wt Readings from Last 6 Encounters: 09/17/22 98 kg (216 lb) 07/09/22 90.7 kg (200 lb) 05/23/22 96.5 kg (212 lb 11.2 oz) 03/19/22 96.3 kg (212 lb 3.2 oz) 12/21/21 97.5 kg (215 lb) 09/18/21 96.2 kg (212 lb) Body mass index is 30.99 kg/m . Lab Results Component Value Date GLUCOSE 129 09/04/2022 Lab Results Component Value Date HGBA1C 8.9 (H) 09/18/2021 IMMUNOSUPPRESSION Current Immunosuppressive Medication(s) Immunosuppressive Agents mycophenolate sodium (MYFORTIC) [address] Take 2 tablets by mouth every 12 hours. Tacrolimus (Envarsus XR) 0.75 MG Tab SR 24 HR Take 1 tablet by mouth daily. PREFERRED LAB AND PHARMACY: None Specified [facility] [place] [address] [facility] [address] [facility] [address] [facility]/pharmacy #[id number] [place] [address] - [address] [facility] [address] [facility] [address] ROS and SCREEN: Chest Pain: negative Cough: negative SOB: negative Abd Pain: negative Nausea: negative Vomiting: negative Diarrhea: negative Constipation: negative Dysuria: negative Edema: Positive; left leg since wound healed about a month ago Tremors: negative Headaches: negative Wound issues: Notes left foot wound healed in July, started getting pain top of his left foot since then with swelling--was told he has a bone spur/fracture in his foot now; also notes he has spots on his hands and chin QUESTIONS OR CONCERNS TO ADDRESS WITH PHYSICIAN: As above. Would like to know if he should continue on prednisone due to foot fracture. documented in this [facility]10-24-[facility] Instructions* Patient Instructions* Trisha Penaloza RN - 09/17/2022 1:15 PM EDT - Alloscreen to be drawn today in clinic. - Return to clinic in 1 year. - Establish with local audio production manager. Let us or your PCP know if they request a referral. - Continue taking prednisone 5 mg daily for now. Talk to PCP about possibly getting bone density scan. - Duplex left leg due to swelling (to rule out blood clot). documented in this [facility] History of Present illness Narrative* Shawnee Garcia - 07/18/2022 11:11 AM EDT [facility]: Call Information: Date and Time of Contact: 07/18/2022 11:11 AM Method of Contact: By Phone Contact Type: Prescriptions Contactor: [facility] Contactee: Patient Contact Outcome: Follow-up (patient request follow up in 2 weeks due to having a supply on hand) Shipping/Pickup: Medication Name: Envarsus & myco Contact Info: Specialty (Elliot) [phone] Harvinder [phone] [facility] [phone] Tani [phone] Bedside Delivery ([facility]) [phone] * Virgilio Leung - 07/18/2022 11:11 AM EDT [facility]REACH [facility]VANC[facility]: Call Information: Date and Time of Contact: 07/31/2022 10:43 AM Method of Contact: By Phone Contact Type: Prescriptions Contactor: [facility] Contactee: Patient Shipping/Pickup: Medicare B Refill?: No Medication Name: Envarsus 0.75mg Delivery Method: Air Delivery Location: Home Signature Required: No Mailing/Pickup Date: 08/01/2022 Shipping Address: [address] [place] [address] Contact Info: Specialty (Freedom) [phone] [facility] [phone] [facility] [phone] Tani [phone] Bedside Delivery ([facility]) [phone] documented in this [facility]06-[facility]22 Instructions* Patient Instructions* Trisha Penaloza RN - 05/23/2022 2:30 PM EDT Return to clinic in August with Dr. Jack. documented in this [facility]29-[facility] History of Present illness Narrative* Trisha Penaloza RN - 05/23/2022 2:00 PM EDT Patient is here today for hernia evaluation. Notes he first noticed RLQ lump about a 6-8 months ago. Has noticed it progressively getting bigger. It is not causing him any pain. * Pierre Hung MD - 05/23/2022 2:00 PM EDT 61 year old female pt with Hx of ESRD who underwent kidney transplant 2 years ago , who is present today to the clinic for incisional hernia evaluation. No pain, or change in bowel habit . O/E:+ cough impulse , no skin change , reducible . - Ct scan : show incisional hernia at the upper part of the kidney transplant incision. - plan: for incisional hernia repair , the pt want to wait for the next year . Pierre Glover MD Transplant Surgeon. documented in this [facility]06-23-[facility]22 History of Present illness Narrative* Linda Jimenez - 05/17/2022 2:06 PM EDT [facility] OUTREACH ADVANCED: Call Information: Date and Time of Contact: 05/17/2022 2:13 PM Method of Contact: By Phone Contact Type: Prescriptions Contactor: [facility] Contactee: Patient Contact Outcome: Left message and Follow-up Shipping/Pickup: Medication Name: Mycophenolate 180mg Contact Info: Specialty (Elliot) [phone] [facility] [phone] [facility] [phone] [facility] [phone] Bedside Delivery ([facility]) [phone] * Kia Jimenez - 05/17/2022 2:06 PM EDT [facility] OUTREACH ADVANCED: Call Information: Date and Time of Contact: 05/17/2022 4:35 PM Method of Contact: By Phone Contact Type: Prescriptions Contactor: Patient Contactee: [facility] OP Shipping/Pickup: Medicare B Refill?: No Medication Name: Mycophenolate 180mg and envarsus 0.75mg Delivery Method: Air Delivery Location: Home Signature Required: No Mailing/Pickup Date: 05/25/2022 Shipping Address: [address] [place] [address] Contact Info: Specialty (Elliot) [phone] [facility] [phone] [facility] [phone] [facility] [phone] Bedside Delivery ([facility]) [phone] documented in this [facility] Instructions* Patient Instructions* Trisha Penaloza RN - 03/19/2022 9:36 AM EDT - Labs today in clinic. - Follow up in 6 months. - CT abdomen/pelvis without contrast is ordered. [phone] - Decrease prednisone to 7.5 mg daily. documented in this [facility] History of Present illness Narrative* Braydon Schofield RN - 03/19/2022 9:30 AM EDT Images from the original note were not included. PREP SHEET FOR NEPHROLOGY CLINIC Patient Name: Robert Mccrary Wind Farm Support Specialist: Alma Keating Date of Kidney Transplant: 07/17/2020 1 year 7 months Primary Disease: Gee's Granulomatosis Transplant School Psychologist Assistant: Lisa Ballesteros Primary Care physician: Marques Casanova Last Transplant Appointment: 09/18/2021 MONITORING: DGF no HLA Match: A 2, B 2, DR 1 Living Donor? no Campath Recipient? no Increased Risk donor? yes Done 08/18/2020 EBV IgG Donor / Recipient R+/D- CMV IgG Donor / Recipient: D+/R+ Valcyte DC'd 07/18/20 On Valcyte or frequent labs? yes Ureteral Stent? yes Removed / Removal Sched? yes When? 08/16/2020-done Hepatitis C+/LUIS- donor? no Hepatitis C+/LUIS+ donor? yes Sae Status In Protocol Box yes Has recipient converted to Hep C+? yes HCV genotype for PA 07/20/2020- 2217 PA for HCV submitted? yes Submitted on 08/02/2020-received Patient started treatment? no 08/26/2020 Hep C PCR at completion of HCV therapy collected on: NA 11/24/2020 Hep C PCR 3 months post completion collected on: NA 02/22/2021 Hep C PCR 6 months post completion collected on: NA 05/23/2021 IMMUNOSUPPRESSANTS AND CURRENT DRUG LEVELS: Current Immunosuppressive Medication(s) Immunosuppressive Agents mycophenolate sodium (MYFORTIC) [address] Take 2 tablets by mouth every 12 hours. Tacrolimus (Envarsus XR) 0.75 MG Tab SR 24 HR Started 02/05/2022 Take 1 tablet by mouth daily. Lab Results Component Value Date TACROLIMUS 7.1 09/18/2021 TACROLIMUS 32.3 (H) 08/04/2020 TACROLIMUS 18.5 (H) 07/21/2020 TACROTRGHMAN 8.0 01/29/2022 TACROTRGHMAN 7.1 11/10/2021 TACROTRGHMAN 5.1 08/22/2021 CHEMISTRY: Lab Results Component Value Date CREATSERUM 2.3 01/29/2022 CREATSERUM 2.61 (H) 12/21/2021 CREATSERUM 2.33 11/10/2021 HEMATOLOGY: Lab Results Component Value Date WBC 10.3 01/29/2022 WBC 15.31 (H) 12/21/2021 WBC 10.1 11/10/2021 Lab Results Component Value Date HGB 15.5 01/29/2022 HGB 14.6 12/21/2021 HGB 15.4 11/10/2021 IMMUNOLOGY: Lab Results Component Value Date CMVPCR no DNA detected 01/16/2021 CMVPCR negative 01/09/2021 CMVPCR no DNA detected 01/02/2021 EBVBYPCR <1,000 11/30/2020 EBVBYPCR <1,000 11/07/2020 EBVDNAVLME negative 12/12/2020 EBVDNAVLME negative 10/17/2020 EBVDNAVLME negative 08/22/2020 BKVIRALP <500 09/18/2021 BKVIRALP <500 06/12/2021 BKVIRALP <500 04/12/2021 CURRENT MEDICATIONS: Alcohol Swabs, CUSTOM MEDICATION, GLUCOSE MONITOR LANCETS PRESCRIPTION, GLUCOSE TEST STRIPS PRESCRIPTION, Insulin Lispro (1 Unit Dial), PEN NEEDLES 31GX5/16, Tacrolimus, atorvastatin, calcitRIOL, carveDILOL, citalopram, hydrALAZINE, insulin detemir, levothyroxine, mycophenolate sodium, pantoprazole, predniSONE, and torsemide None Specified Change in lab frequency / new order today: No Labs needed in clinic today? Yes COORDINATOR NOTES: * Trisha Penaloza RN - 03/19/2022 9:30 AM EDT Images from the original note were not included. Nursing Assessment In Clinic (see Clinic Prep Sheet for additional information) Patient is accompanied to clinic today by: Did patient require a wheelchair or medical transport for appointment: no Any changes in address or contact information: no Insurance on file correct: yes Currently employed: yes VITALS BP Readings from Last 3 Encounters: 03/19/22 145/76 12/21/21 112/52 09/18/21 135/70 Pulse Readings from Last 3 Encounters: 03/19/22 67 12/21/21 60 09/18/21 61 Wt Readings from Last 6 Encounters: 03/19/22 96.3 kg (212 lb 3.2 oz) 12/21/21 97.5 kg (215 lb) 09/18/21 96.2 kg (212 lb) 09/18/21 95.8 kg (211 lb 1.6 oz) 06/19/21 101.1 kg (222 lb 12.8 oz) 06/12/21 103.1 kg (227 lb 3.2 oz) Body mass index is 31.34 kg/m . Lab Results Component Value Date GLUCOSE 237 01/29/2022 Lab Results Component Value Date HGBA1C 8.9 (H) 09/18/2021 IMMUNOSUPPRESSION Current Immunosuppressive Medication(s) Immunosuppressive Agents mycophenolate sodium (MYFORTIC) [address] Take 2 tablets by mouth every 12 hours. Tacrolimus (Envarsus XR) 0.75 MG Tab SR 24 HR Take 1 tablet by mouth daily. PREFERRED LAB AND PHARMACY: None Specified [facility] [place] [address] [facility] [address] [facility] [address] [id number] [place] [address] [phone] [facility] [id number] ROS and SCREEN: Chest Pain: negative Cough: negative SOB: negative Abd Pain: negative Nausea: negative Vomiting: negative Diarrhea: negative Constipation: negative Dysuria: negative Edema: negative Tremors: negative Headaches: negative Wound issues: Positive; notes some spots on hands QUESTIONS OR CONCERNS TO ADDRESS WITH PHYSICIAN: Notes currently taking prednisone 10 mg daily. Takes Envarsus at 8-9 am, holding for blood draw this morning. Notes lump RLQ that has been increasing in size over time. Has not caused any pain so far. * Al Carroll MD - 03/19/2022 9:30 AM EDT Images from the original note were not included. Today we were happy to see Robert Mccrary at [facility] Post Transplant Office for evaluation and management of immunosuppression and associated conditions in the setting of solid organ transplantation. As you may be aware Mr. Mccrary is a 61 y.o. year-old male with a past medical history of ESRD. He received an organ transplant from a Donation after [facility] on 07/17/2020 (Kidney). The patient is currently 639 days out from transplantation. There has been a review of the patient s chart shows for significant events post-transplant The patient was last seen for follow-up at the [facility] on 04/17/22. The patient's recent medical history, general state of health, and any hospitalizations have been reviewed with the patient. REVIEW OF SYSTEMS: The patient currently endorses no complains and denies chest pain, shortness of breath, nausea or emesis. Otherwise all other systems are per HPI or negative. MEDICATIONS: Current Outpatient Medications Medication Sig atorvastatin 10 MG Tab tablet Take 20 mg by mouth daily. Take two 10mg tabs at night for a total of20mg calcitRIOL 0.25 MCG capsule Take 1 capsule by mouth daily. carveDILOL 12.5 MG tablet Take 12.5 mg by mouth 2 times daily with meals. citalopram 40 MG Tab Take 40 mg by mouth daily. Dulaglutide (TRULICITY SC) Inject 0.75 mg under the skin once a week. GLUCOSE MONITOR LANCETS PRESCRIPTION Use BEFORE MEALS and at BEDTIME to test Blood Sugar. GLUCOSE TEST STRIPS PRESCRIPTION Use BEFORE MEALS and at BEDTIMEto test Blood Glucose hydrALAZINE 25 MG tablet Take 1 tablet by mouth 2 times daily. insulin detemir 100 UNIT/ML Solution Pen-injector injection Inject 10 Units under the skin at bedtime. Or as instructed by your PCP. (Patient taking differently: Inject 38 Units under the skin at bedtime. Or as instructed by your PCP.) Insulin Lispro, 1 Unit Dial, 100 UNIT/ML Solution Pen-injector Inject 12-18 Units under the skin 3 times daily (take before meals). Take 12 units with breakfast, 12 units with lunch, 18 units with dinner Insulin Pen Needle (PEN NEEDLES 31GX5/16) 31G X 8 MM [facility] [place] new needle with each insulin injection. levothyroxine 175 MCG tablet Take 175 mcg by mouth daily every morning. mycophenolate sodium (MYFORTIC) [address] Take 2 tablets by mouth every 12 hours. pantoprazole [address] tablet DR Take 1 tablet by mouth daily. predniSONE 2.5 MG tablet Take 3 tablets by mouth daily. Tacrolimus (Envarsus XR) 0.75 MG Tab SR 24 HR Take 1 tablet by mouth daily. torsemide 20 MG tablet Take 2 tablets by mouth daily. (Patient taking differently: Take 20 mg by mouth daily.) Alcohol Swabs Pads Use to cleanse fingertip before each blood glucose test. CUSTOM MEDICATION Please obtain Chem-10 and CBC twice weekly, as well as BK PCR once weekly, and have results faxed to Waylon Kulkarni MD at . potassium chloride 20 MEQ Tab CR tablet Take 1 tablet by mouth daily. PHYSICAL EXAM: VITALS: Blood pressure 145/76, pulse 67, temperature 97.6 F (36.4 C), temperature source Temporal, weight 96.3 kg (212 lb 3.2 oz). GENERAL: Alert and oriented x 3 in no apparent Distress HEENT: Normocephalic, EOMI, Moist Oral Membranes, Neck Soft/Supple, No JVD or LAD CV: Regular Rhythm, Positive S1 / S2, Negative for Rubs PULM: Bilateral Breath Sounds. No Wheezes, Crackles, Rubs, Ronchi ABD: Soft, Non-Tender, Positive Bowel Sounds allograft is non-tender no hernia palpated : Transplanted Graft Palpable. Non-Tender, Erythematous, or Warm EXT: Symmetric, Mobile, No Edema, No Cyanosis or Clubbing Neuro: No tremor Skin: No rash or obvious cancers seen LABORATORY VALUES: WBC Count Date Value Ref Range Status 03/19/2022 16.17 (H) 3.73 - 10.10 K/uL Final Hemoglobin Date Value Ref Range Status 03/19/2022 15.4 13.4 - 16.8 g/dL Final Hematocrit Date Value Ref Range Status 03/19/2022 48.5 39.6 - 48.8 % Final Platelet Count Date Value Ref Range Status 03/19/2022 272 146 - 337 K/uL Final SODIUM (NA), MANUAL ENTER Date Value Ref Range Status 04/10/2022 139 mmol/L Final Chloride (CL), MANUAL ENTER Date Value Ref Range Status 04/10/2022 110 Final Blood Urea Nitrogen (BUN), MANUAL ENTER Date Value Ref Range Status 04/10/2022 34 Final POTASSIUM (K+), MANUAL ENTER Date Value Ref Range Status 04/10/2022 4.4 Final HCO3 Date Value Ref Range Status 11/12/2020 12.8 mmol/L Final CREATININE, SERUM, MANUAL ENTER Date Value Ref Range Status 04/10/2022 1.94 Final GLUCOSE, MANUAL ENTER Date Value Ref Range Status 04/10/2022 126 Final AST, MANUAL ENTER Date Value Ref Range Status 04/09/2022 11 Final ALT, MANUAL ENTER Date Value Ref Range Status 04/09/2022 16 Final GGT Date Value Ref Range Status 01/12/2020 14 8 - 64 U/L Final Bilirubin, Total, MANUAL ENTER Date Value Ref Range Status 04/09/2022 0.5 Final CALCIUM (CA), MANUAL ENTER Date Value Ref Range Status 04/10/2022 9.1 Final Phosphate (PO4), Manual Enter Date Value Ref Range Status 01/29/2022 3.2 Final MAGNESIUM (MG), MANUAL ENTER Date Value Ref Range Status 04/09/2022 2.6 Final ASSESSMENT AND PLAN: Status Post-Transplant: Stable Latest Creatinine Lab Results Component Value Date CREATSERUM 1.94 04/10/2022 CREATURINE 39.11 03/19/2022 Patient is within the usual baseline. No interventions are warranted at this time. Immunosuppression Management: Current Immunosuppressive Medication(s) Immunosuppressive Agents mycophenolate sodium (MYFORTIC) [address] Take 2 tablets by mouth every 12 hours. Tacrolimus (Envarsus XR) 0.75 MG Tab SR 24 HR Take 1 tablet by mouth daily. 2. Immunosuppression Management: We will continue close monitoring for drug levels and toxicity via regularly scheduled laboratory assays High Risk Medical Decision Making For Drug Therapy Requiring Intensive Monitoring For Toxicity given the narrow therapeutic index of the immunosuppressive drug therapy listed below. Current Immunosuppressive Medication(s) Immunosuppressive Agents mycophenolate sodium (MYFORTIC) [address] Take 2 tablets by mouth every 12 hours. Tacrolimus (Envarsus XR) 0.75 MG Tab SR 24 HR Take 1 tablet by mouth daily. Current Immunosuppressive medication(s) include: Current Immunosuppressive Medication(s) Immunosuppressive Agents mycophenolate sodium (MYFORTIC) [address] Take 2 tablets by mouth every 12 hours. Tacrolimus (Envarsus XR) 0.75 MG Tab SR 24 HR Take 1 tablet by mouth daily. I/S levels: Lab Results Component Value Date [id number] 330 06/05/2021 TACROLIMUS 5.6 03/19/2022 No Changes are warranted at this time. CT abdomen/pelvis without contrast is ordered due to abd pain, concern over hernia. [phone] - Decrease prednisone to 7.5 mg daily to reduce toxicity Will continue intensive monitoring for drug levels and toxicity via regularly scheduled laboratory assays given the narrow therapeutic index of the immunosuppressive drug therapy listed above. Hypertension: Stable Current hypertension therapy includes: As noted above Today in the clinic the blood pressure was BP Readings from Last 1 Encounters: 03/19/22 145/76 Per the patient home systolic blood pressures have been averaging in the 135 mmHg These values are acceptable. An intervention is not indicated at this time. Anemia: Stable Latest hemoglobin Hemoglobin Date Value Ref Range Status 03/19/2022 15.4 13.4 - 16.8 g/dL Final Acceptable per current post-transplant protocols. An intervention is not indicated at this time. Proteinuria: Stable Last Urine Protein/Creatinine Ratio: PROTEIN/CREATININE RATIO, MANUAL ENTER Date Value Ref Range Status 01/29/2022 0.217 Final Prot/Creat Ratio Date Value Ref Range Status 03/19/2022 0.153 Final At Goal. An intervention is not indicated at this time. Hyperphosphatemia: Stable Last Phosphorous Level: Phosphate (PO4), Manual Enter Date Value Ref Range Status 01/29/2022 3.2 Final A phosphorus binder is not indicated at this time. Hypercalcemia: Stable Last Calcium Level: CALCIUM (CA), MANUAL ENTER Date Value Ref Range Status 04/10/2022 9.1 Final No interventions are warranted at this time. Secondary Hyperparathyroidism: Stable Last PTH Intact PTH Date Value Ref Range Status 09/18/2021 159.0 (H) 14.0 - 72.0 pg/mL Final No interventions are warranted at this time. Hyperlipidemia: Stable Current lipid therapy includes: as noted above TOTAL CHOLESTERL, MANUAL ENTER Date Value Ref Range Status 01/29/2022 139 Final HDL, MANUAL ENTER Date Value Ref Range Status 01/29/2022 31 Final LDL, MANUAL ENTER Date Value Ref Range Status 01/29/2022 57 Final TRIGLYCERIDES, MANUAL ENTER Date Value Ref Range Status 01/29/2022 253 Final No results found for: TCHHDLMANENT An intervention is not indicated at this time. Counseling: I counseled the patient on: The need to avoid sun exposure and the use of sunblock while outdoors given the relatively higher risk of skin malignancy in an immunosuppressed state. The need for adherence to immunosuppression medication. Patient verbalized understanding. Follow-Up: The patient will follow-up with us in clinic in 12 months however we will see patient earlier should the need arise. We have ordered transplant specific labs per the center s guidelines to monitor and assess for toxicities from immunosuppressant drug therapy. Thank you for allowing us to partake in the care of your patient. Should you have any questions please do not hesitate to contact me. [facility] History of Present illness Narrative* Megan Canales MD - 06/19/2021 1:20 PM EDT I saw Robert Mccrary with resident, Dr. Estrada. I performed my own history and exam. We developed the plan together. I agree with the note documented by Dr. Estrada. 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 Mccrary presents [facility] on 06/19/2021 for follow up of ANCA Vasculitis History of Present Illness / Interval History: In clinic 06/19/2021 Robert Mccrary says that he is doing well. He is s/p renal transplant in June. 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 He was taken off of bactrim for thrombocytopenia and cyclosporine for gingival hyperplasia. His current regimen includes tacro 0.5 daily and prednisone 7.5 daily. Mycophenolate will be considered once he is stale on tacro per transplant neph. Since the last visit on 02/06/21, he has had no infections, hospital or ED visits. Denies hemoptysis, hematemesis, N/V, SOB, or urinary changes. Does endorse a fifteen pound weight gain which he attributes to water weight. He started Lasix last week for this. He also started PT and stats that it gets him out of the house, making him less depressed. 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 Review of Systems: A complete 10-point review of systems was done and was negative except for what was noted in the HPI. Medications: Outpatient Medications Prior to Visit Medication Sig Dispense Refill Alcohol Swabs Pads Use to cleanse fingertip before each blood glucose test. 200 Each 1 atorvastatin 10 MG Tab tablet Take 10 mg by mouth daily. calcitRIOL 0.25 MCG capsule Take 1 capsule by mouth daily. 30 capsule 3 calcium citrate-vitamin D 315-250 MG-UNIT tablet Take 2 tablets by mouth daily. 180 tablet 0 carveDILOL 12.5 MG tablet Take 12.5 mg by mouth 2 times daily with meals. citalopram 40 MG Tab Take 40 mg by mouth daily. CUSTOM MEDICATION Please obtain Chem-10 and CBC twice weekly, as well as BK PCR once weekly, and have results faxed to Waylon Kulkarni MD at [phone]. 1 Each 0 GLUCOSE MONITOR LANCETS PRESCRIPTION Use BEFORE MEALS and at BEDTIME to test Blood Sugar. 150 Each 1 GLUCOSE TEST STRIPS PRESCRIPTION Use BEFORE MEALS and at BEDTIMEto test Blood Glucose 125 strip 1 hydrALAZINE 25 MG tablet Take 1 tablet by mouth 2 times daily. 60 tablet 11 insulin detemir 100 UNIT/ML Solution Pen-injector injection Inject 10 Units under the skin at bedtime. Or as instructed by your PCP. (Patient taking differently: Inject 25 Units under the skin daily every morning. Or as instructed by your PCP.) 1 Prefilled Pen/Syringe 3 Insulin Lispro, 1 Unit Dial, 100 UNIT/ML Solution Pen-injector Inject 10-15 Units under the skin 3 times daily (take before meals). Insulin Pen Needle (PEN NEEDLES 31GX5/16) 31G X 8 MM [facility] [place] needle with each insulin injection. 100 Each 1 iron polysaccharides 150 MG capsule Take 1 capsule by mouth daily. 30 capsule 3 levothyroxine 175 MCG tablet Take 175 mcg by mouth daily every morning. 11 linaGLIPtin 5 MG tablet Take 5 mg by mouth daily. pantoprazole [address] tablet DR Take 1 tablet by mouth daily. 30 tablet 11 predniSONE 2.5 MG tablet Take 3 tablets by mouth daily. Obtain one year prescription at your next clinic appointment. 270 tablet 1 tacrolimus (generic) 0.5 MG capsule Take 1 capsule by mouth daily. 30 capsule 11 torsemide 20 MG tablet Take 3 tablets by mouth daily every morning AND 1 tablet every evening. 120 tablet 11 No facility-administered medications prior to visit. 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 ESRD (end stage renal disease) on dialysis IHD T/Th/Sat - Left fistula Hyperglycemia Hyperlipidemia Hypertension Hypogammaglobulinemia Hypothyroidism AR (myocardial infarction) Pt reports he was told he had an AR in 2019 DAVID (obstructive sleep apnea) on BiPaP Gee's granulomatosis Family History Problem Relation Age of Onset Arthritis - Rheumatoid Mother Diabetes Mother Myocardial Infarction Father 56 Colorectal Cancer Father Heart Disease - Other Paternal Grandmother Heart Disease - Other Paternal Grandfather Arrhythmia Neg Hx Social History Socioeconomic History Marital status: Spouse name: Not on file Number of children: Not on file Years of education: Not on file Highest education level: Not on file Occupational History Not on file Tobacco Use Smoking status: Never Smoker Smokeless tobacco: Former User Types: Snuff Tobacco comment: 02/06/21 Vaping Use Vaping Use: Never used Substance and Sexual Activity Alcohol use: Never Comment: 02/06/21 Drug use: Never Comment: 02/06/21 Sexual activity: Not on file Other Topics Concern Not on file Social History Narrative Not on file Social Determinants of Health Financial Resource Strain: Difficulty of Paying Living Expenses: Food Insecurity: Worried About Running Out of Food in the Last Year: Ran Out of Food in the Last Year: Transportation Needs: Lack of Transportation (Medical): Lack of Transportation (Non-Medical): Physical Activity: Days of Exercise per Week: Minutes of Exercise per Session: Stress: Feeling of Stress : Social Connections: Frequency of Communication with Friends and Family: Frequency of Social Gatherings with Friends and Family: Attends Cheondoism Services: Active Member of Clubs or Organizations: Attends Club or Organization Meetings: Marital Status: Intimate Partner Violence: Fear of Current or Ex-Partner: Emotionally Abused: Physically Abused: Sexually Abused: Physical Examination: Blood pressure 118/62, pulse 69, weight 101.1 kg (222 lb 12.8 oz), SpO2 97 %. Body mass index is 31.07 kg/m . General: Alert, cooperative, appears well, no acute distress. Eyes: Conjunctivae clear, no scleral icterus. Lungs: Breathing unlabored, no audible wheezing Heart: Regular rate and rhythm. Neuro: Strength and sensation grossly intact. MSK: no joint swelling, tenderness knees, wrists, elbows. Psychiatric: Good eye contact, normal affect. Skin: Rash bilaterally on dorsum of the hands Extremities: No cyanosis, mild LE edema Diagnostic Data: No visits with results within 1 Day(s) from this visit. Latest known visit with results is: Notes/Results Only on 06/16/2021 Component Date Value Ref Range Status HEMATOCRIT (HCT), MANUAL ENTER 06/16/2021 43.8 Final WBC, MANUAL ENTER 06/16/2021 12.4 Final Hemoglobin (HGB), MANUAL ENTER 06/16/2021 13.9 Final MONOCYTE (DIFF), MANUAL ENTER 06/16/2021 11.5 Final EOSINOPHIL (DIFF), MANUAL ENTER 06/16/2021 2.4 Final BASOPHIL (DIFF), MANUAL ENTER 06/16/2021 0.8 Final LYMPHOCYTES (DIFF), MANUAL ENTER 06/16/2021 14.1 Final NEUTROPHILS (DIFF), MANUAL ENTER 06/16/2021 69.5 Final PLATELETS, MANUAL ENTER 06/16/2021 217 Final ALKALINE PHOSPHATASE, MANUAL ENTER 06/16/2021 86 Final AST, MANUAL ENTER 06/16/2021 18 Final ALT, MANUAL ENTER 06/16/2021 31 Final CALCIUM (CA), MANUAL ENTER 06/16/2021 8.3 Final ESTIMATED GFR, NON AMER, M* 06/16/2021 21 Final ESTIMATED GFR, , M* 06/16/2021 25 Final Chloride (CL), MANUAL ENTER 06/16/2021 98 Final CREATININE, SERUM, MANUAL ENTER 06/16/2021 3.27 Final Blood Urea Nitrogen (BUN), MANUAL * 06/16/2021 61 Final GLUCOSE, MANUAL ENTER 06/16/2021 158 Final POTASSIUM (K+), MANUAL ENTER 06/16/2021 3.0 Final SODIUM (NA), MANUAL ENTER 06/16/2021 137 mmol/L Final Carbon Diox(CO2), MANUAL ENTER 06/16/2021 26.0 Final TACROLIMUS LEVEL(TROUGH),MANUAL EN* 06/16/2021 3.2 Final Assessment: and Plans: Mr. Mccrary presents to [facility] on 06/19/2021 for follow up of ANCA vasculitis. ANCA Vasculitis with ESRD ( HD) with DAH now improved - blood work ordered - transplant team is following for immunosuppression: - continue prednisone 7.5 daily - continue tacrolimus 0.5 daily - consider mycophenolate once stable on tacro - continue to hold bactrim due to thrombocytopenia - continue PT due to significant deconditioning - will not restart rituximab as things appear stable right now Return in 3 months No orders of the defined types were placed in this encounter. 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 Patient seen and discussed with attending physician Dr. Canales. Tamera Estrada MD, MPH , PGY-2 * Sandra Prasad - 06/19/2021 1:20 PM EDT This service writer verified the patient's name and . [facility] Instructions* Patient Instructions* Megan Canales MD - 06/19/2021 1:20 PM EDT Return in 3 months with me in Vasculitis clinic [email or web address] Recommend the covid vaccine [facility] History of Past illness Narrative* Problem Noted Date Diagnosed Date Resolved Date Hypoxia 08/03/2018 08/06/2018 DM (diabetes mellitus), type 1 with neurological complications 08/02/2018 09/03/2018 documented as of this encounter (statuses as of 07/10/2023) [facility] noteNo assessment information availableWProvidence [facility] Work Phone: Evaluation note* Diagnosis 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, symptomatic [facility] Diagnosis Onset Date Resolution Status Chronic kidney disease chron ic Hypertension chronic Obesity chronic Type II diabetes mellitus ch ronic Hypertension chronic Obesity chronic Type II diabetes mellitus ch ronic Diabetic foot infection acut e Chronic kidney disease chron ic Hypertension chronic Type II diabetes mellitus [facility] Work Phone: Evaluation note* Diagnosis Kidney replaced by transplant- Primary Long-term use of immunosuppressant medication Encounter for long-term (current) use of other medications Aftercare following organ transplant Abnormal blood chemistry Other abnormal blood chemistry Immunosuppressed status Unspecified disorder of immune mechanism High risk medication use Encounter for long-term (current) use of other medications Other general symptoms and signs Other complication of kidney transplant Hyperlipidemia, unspecified hyperlipidemia type HTN (hypertension), benign Essential hypertension, benign [facility] Onset Date Resolution Status Chronic kidney disease chron ic Hypertension chronic Obesity chronic Type II diabetes mellitus ch ronic Hypertension chronic Obesity chronic Type II diabetes mellitus ch ronic Cellulitis of left lower limb acute Diabetic foot infection acut e Diabetic peripheral neuropathy acute History of immunosuppression therapy acute 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 foot ulcer acute Chronic kidney disease chron ic Hypertension chronic Non-pressure chronic ulcer o f other part of left foot with fat layer exposed chronic Type II diabetes mellitus ch ronic 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 diabetic polyneuropathy acute Non-pressure chronic ulcer o f other part of left foot with fat layer exposed [facility] Work Phone: Evaluation note* Diagnosis Onset Date Resolution Status Chronic kidney disease chron ic Hypertension chronic Obesity chronic Type II diabetes mellitus ch ronic Hypertension chronic Obesity chronic Type II diabetes mellitus ch ronic Cellulitis of left lower limb acute Diabetic foot infection acut e Diabetic peripheral neuropathy acute History of immunosuppression therapy acute 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 foot ulcer acute Chronic kidney disease chron ic Hypertension chronic Non-pressure chronic ulcer o f other part of left foot with fat layer exposed chronic Type II diabetes mellitus ch ronic 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 diabetic polyneuropathy acute Non-pressure chronic ulcer o f other part of left foot with fat layer exposed chronic Peripheral vascular disease, unspecified acute 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 diabetic polyneuropathy acute Non-pressure chronic ulcer o f other part of left foot with fat layer exposed chronic Cellulitis of great toe, left acute History of diabetes mellitus acute History of kidney transplant acute [facility] Work Phone: Evaluation note* Diagnosis Onset Date Resolution Status Cellulitis of great toe, left acute [facility] Work Phone: Evaluation note* Diagnosis Kidney [facility]- [facility] Onset Date Resolution Status Chronic kidney disease chron ic Hypertension chronic Hypertension chronic Chronic kidney disease chron ic Hypertension chronic Cellulitis of great toe, left acute Chronic kidney disease chron ic Diabetes chronic Hypertension chronic Overweight (BMI 25.0-29.9) c [facility] Work Phone: Evaluation note* Diagnosis Onset Date Resolution Status Hypertension chronic Chronic kidney disease chron ic Hypertension chronic Cellulitis of great toe, left acute Chronic kidney disease chron ic Diabetes chronic Hypertension chronic Overweight (BMI 25.0-29.9) c hronic Hallux limitus of left foot acute [facility] Work Phone: Evaluation note* Diagnosis Onset Date Resolution Status Cellulitis of great toe, left acute Chronic kidney disease chron ic Diabetes chronic Hypertension chronic Overweight (BMI 25.0-29.9) c hronic Hallux limitus of left foot acute [facility] Work Phone: Evaluation note* Diagnosis Onset Date Resolution Status Chronic kidney disease chron ic Diabetes chronic Hypertension chronic Overweight (BMI 25.0-29.9) c hronic Hallux limitus of left foot acute [facility] Work Phone: Evaluation note* Diagnosis Kidney replaced by transplant- Primary Abnormal blood chemistry Other abnormal blood chemistry Aftercare following organ transplant Immunosuppressed status Unspecified disorder of immune mechanism High risk medication use Encounter for long-term (current) use of other medications Left leg swelling [facility] Diagnosis Onset Date Resolution Status Hallux limitus of left foot acute Obesity (BMI 30.0-34.9) acut e Chronic kidney disease chron ic Diabetes chronic Hypertension chronic Hypothyroidism [facility] Work Phone: Evaluation note* Diagnosis Actinic skin damage- Primary Other chronic dermatitis due to solar radiation SK (seborrheic keratosis) Other seborrheic keratosis H/O immunosuppressive therapy Personal history of immunosuppressive therapy Melanocytic nevi of trunk Benign neoplasm of skin of trunk, except scrotum Sebaceous hyperplasia Other specified disease of sebaceous glands Neoplasm of uncertain behavior of skin Rash and nonspecific skin eruption Rash and other nonspecific skin eruption [facility] Diagnosis Onset Date Resolution Status Obesity (BMI 30.0-34.9) acut e Chronic kidney disease chron ic Diabetes chronic Hypertension chronic Hypothyroidism [facility] Work Phone: Evaluation note* Diagnosis Onset Date Resolution Status Chronic kidney disease chron ic Diabetes chronic Hypertension chronic Hypothyroidism chronic Obesity (BMI 30.0-34.9) [employer] Heart murmur acute Chronic kidney disease chron ic Diabetes chronic Hypothyroidism chronic Obesity (BMI 30.0-34.9) [employer] Vitamin D deficiency [facility] Work Phone: Evaluation note* Diagnosis ANCA-associated vasculitis- Primary Other specified disorders of arteries and arterioles [facility] Diagnosis Onset Date Resolution Status Heart murmur acute Chronic kidney disease chron ic Diabetes chronic Hypothyroidism chronic Obesity (BMI 30.0-34.9) [employer] Vitamin D deficiency [facility] Work Phone: Evaluation note* Diagnosis 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- Primary Murmur Undiagnosed cardiac murmurs ANCA-associated vasculitis Other specified disorders of arteries and arterioles History of heart failure Personal history of other diseases of circulatory system Essential hypertension Unspecified essential hypertension Hyperlipidemia, unspecified hyperlipidemia type THOMASON (dyspnea on exertion) Other dyspnea and respiratory abnormality [facility] Onset Date Resolution Status Chronic kidney disease chron ic Diabetes chronic Heart murmur chronic Hypothyroidism chronic Obesity (BMI 30.0-34.9) [facility] Vitamin D deficiency chronic Osteoporosis acute Chronic kidney disease chron ic Diabetes chronic Heart murmur chronic Obesity (BMI 30.0-34.9) [facility] Work Phone: Evaluation note* Diagnosis Onset Date Resolution Status Chronic kidney disease chron ic Diabetes chronic Heart murmur chronic Obesity (BMI 30.0-34.9) [facility] Osteoporosis [facility] Work Phone: Evaluation note* Diagnosis Onset Date Resolution Status Chronic kidney disease chron ic Diabetes chronic Heart murmur chronic Obesity (BMI 30.0-34.9) [facility] Osteoporosis chronic Essential hypertension acute Heart murmur [facility] Work Phone: Evaluation note* Diagnosis Onset Date Resolution Status Essential hypertension chron ic Heart murmur chronic Chronic kidney disease chron ic Diabetes chronic Essential hypertension chron ic Obesity (BMI 30.0-34.9) [facility] Osteoporosis [facility] Work Phone: Evaluation note* Diagnosis Other viral warts- Primary Disturbance of skin sensation Verruca plana Other specified viral warts Kidney replaced by transplant- Primary Abnormal blood chemistry Other abnormal blood chemistry Aftercare following organ transplant Immunosuppressed status Unspecified disorder of immune mechanism High risk medication use Encounter for long-term (current) use of other medications [facility] Kidney replaced by transplant- Primary Abnormal blood chemistry Other abnormal blood chemistry Aftercare following organ transplant Immunosuppressed status Unspecified disorder of immune mechanism High risk medication use Encounter for long-term (current) use of other medications [facility] Diagnosis Onset Date Resolution Status Chronic kidney disease chron ic Diabetes chronic Essential hypertension chron ic Obesity (BMI 30.0-34.9) [facility] Osteoporosis [facility] Work Phone: Evaluation note* Diagnosis Verruca plana- Primary Other specified viral warts Other viral warts Disturbance of skin sensation [facility] Diagnosis ANCA-associated vasculitis- Primary Other specified disorders of arteries and arterioles [facility] Diagnosis Kidney replaced by transplant Aftercare following organ transplant Other complication of kidney transplant [facility] Diagnosis Other transplanted organ and tissue status [facility] Diagnosis Onset Date Resolution Status Diabetes chronic Hypothyroidism chronic Microalbuminuria chronic Obesity (BMI 30.0-34.9) [employer] Osteoporosis chronic Vitamin D deficiency chronic [facility] Work Phone: Evaluation note* Diagnosis ANCA-associated vasculitis- Primary Other specified disorders of arteries and arterioles Renal transplant recipient Chronic kidney disease-mineral and bone disorder Hypertension, renal disease, stage 1-4 or unspecified chronic kidney disease [facility] Diagnosis ANCA-associated vasculitis- Primary Other specified disorders of arteries and arterioles [facility]* Diagnosis DAVID (obstructive sleep apnea)- Primary Obstructive sleep apnea (adult) (pediatric) documented in this encounter [facility] note* Diagnosis Kidney replaced by transplant- Primary [facility]* Diagnosis Fever, unspecified fever cause- Primary Viral illness Unspecified viral infection, in conditions classified elsewhere and of unspecified site Acute cough documented in this encounter [facility] Discharge instructionsAmbulatory Orders* Cardiology Location: None [facility] Work Phone: Reason for referral (narrative)* Consultation (Routine) - New Request Specialty Diagnoses / Procedures Referred By Meng augustine Referred To Contact Cardiovascular Medicine Diagnoses ANCA-associated vasculitis Megan Canales MD [address] [place] [address] [address] [place] [address] Referral ID Status Reason Start Date Expiration Date V isits Requested Visits Authorized [id number] New Request 01/28/2023 02/22/2024 1 1 Scheduling Instructions Please schedule this patient in the Department of Cardiology. [facility] for referral (narrative)* Consultation (Routine) - New Request Specialty Diagnoses / Procedures Referred By Meng augustine Referred To Contact Nephrology Diagnoses ANCA-associated vasculitis Macy Damon DO [address] [place] [address] Referral ID Status Reason Start Date Expiration Date V isits Requested Visits Authorized [id number] New Request 10/21/2023 11/14/2024 1 1 [facility] for referral (narrative)No [facility] for [facility] Work [facility]: Summary Purpose Family History No Family History Records Found Relationship Condition Age at Onset Recorded Date/T khang father Coronary artery disease Unknown Myocardial infarction 58 Presence of stent in coronary artery Unkn own Relationship Condition Age at Onset Recorded Date/T khang father Coronary artery disease Unknown Myocardial infarction 58 Presence of stent in coronary artery Unkn own grandfather Cardiac disease Unknown grandmother Cardiac disease Unknown Advance Directives No Advanced Directives Records Found Advance Directive Response Recorded Date/ Time Advance Directives No December 24, 2019 11:08am Living Will No October 15, 2 020 10:59am Power of Process Development Manager No October 15, 2020 10:59am Latest Code Status on File Code Status Date Activated Date Inactivated Comments Full Code 11/28/2020 3:53 PM Full Code 11/12/2020 11:34 AM 11/28/2020 3:53 PM Full Code 07/17/2020 2:15 AM 11/12/2020 11:34 AM Full Code 02/11/2019 10:53 PM 07/17/2020 2:15 AM Full Code 02/05/2019 1:53 AM 02/11/2019 10:53 PM Advance Directive Response Recorded Date/ Time Advance Directives No December 24, 2019 11:08am Living Will No April 07, 2022 3 :44pm Power of Process Development Manager No April 07, 2022 3:44pm Latest Code Status on File Code Status Date Activated Date Inactivated Comments Full Code 11/28/2020 3:53 PM Full Code 11/12/2020 11:34 AM 11/28/2020 3:53 PM Full Code 07/17/2020 2:15 AM 11/12/2020 11:34 AM Full Code 02/11/2019 10:53 PM 07/17/2020 2:15 AM Full Code 02/05/2019 1:53 AM 02/11/2019 10:53 PM Advance Directive Response Recorded Date/ Time Advance Directives No December 24, 2019 11:08am Living Will No April 07, 2022 7 :44pm Power of Process Development Manager No April 07, 2022 7:44pm Advance Directive Response Recorded Date/ Time Advance Directives No December 24, 2019 11:08am Living Will No May 02, 2022 3 :07pm Power of Process Development Manager No May 02, 2022 3:07pm Latest Code Status on File Code Status Date Activated Date Inactivated Comments Full Code 11/28/2020 3:53 PM Code Status History Code Status Date Activated Date Inactivated Comments Full Code 11/12/2020 11:34 AM 11/28/2020 3:53 PM Full Code 07/17/2020 2:15 AM 11/12/2020 11:34 AM Full Code 02/11/2019 10:53 PM 07/17/2020 2:15 AM Full Code 02/05/2019 1:53 AM 02/11/2019 10:53 PM Advance Directive Response Recorded Date/ Time Advance Directives No December 24, 2019 10:08am Living Will No May 02, 2022 2 :07pm Power of Process Development Manager No May 02, 2022 2:07pm Latest Code Status on File Code Status Date Activated Date Inactivated Comments Full Code 11/28/2020 3:53 PM Code Status History Code Status Date Activated Date Inactivated Comments Full Code 11/12/2020 11:34 AM 11/28/2020 3:53 PM Full Code 07/17/2020 2:15 AM 11/12/2020 11:34 AM Full Code 02/11/2019 10:53 PM 07/17/2020 2:15 AM Full Code 02/05/2019 1:53 AM 02/11/2019 10:53 PM Latest Code Status on File Code Status Date Activated Date Inactivated Comments Full Code 08/04/2018 10:39 AM 08/06/2018 7:23 PM Question Answer Comments Full Code Order Discussed With: Patient Date Activated Date Inactivated Comments 08/04/2018 10:39 AM 08/06/2018 7:23 PM Question Answer Comments Full Code Order Discussed With: Patient Date Activated Date Inactivated Comments 11/28/2020 3:53 PM Date Activated Date Inactivated Comments 11/12/2020 11:34 AM 11/28/2020 3:53 PM Date Activated Date Inactivated Comments 07/17/2020 2:15 AM 11/12/2020 11:34 AM Date Activated Date Inactivated Comments 02/11/2019 10:53 PM 07/17/2020 2:15 AM Date Activated Date Inactivated Comments 02/05/2019 1:53 AM 02/11/2019 10:53 PM Advance Directive Response Recorded Date/ Time Living Will No April 01, 2024 10 :36am Do you have a Healthcare Power of Process Development Manager? 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 1 m fu CELLLULITIS OF FOOT Reason for Visit Chronic kidney disea se Hypertension Obesity Type II diabetes mellitus Hypertension Obesity Type II diabetes mellitus Diabetic foot infection Chronic kidney disease Hypertension Type II diabetes mellitus Chief Complaint S/O--FAX RESULTS/ PT HAS MONTHLY AND TWO WEEKS 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 1 m fu CELLLULITIS OF FOOT CELLLULITIS OF FOOT CELLLULITIS OF FOOT CELLLULITIS OF FOOT CELLLULITIS OF FOOT wound Reason for Visit Chronic kidney disea se Hypertension Obesity Type II diabetes mellitus Hypertension Obesity Type II diabetes mellitus Cellulitis of left lower limb Diabetic foot infection Diabetic peripheral neuropathy History of immunosuppression therapy 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 foot ulcer Chronic kidney disease Hypertension Non-pressure chronic ulcer of other part of left foot with fat layer exposed Type II diabetes mellitus 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 Chief Complaint S/O--FAX RESULTS/ PT HAS MONTHLY AND TWO WEEKS 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 1 m fu CELLLULITIS OF FOOT CELLLULITIS OF FOOT CELLLULITIS OF FOOT CELLLULITIS OF FOOT CELLLULITIS OF FOOT wound wound S/O--FAX RESULTS/ PT HAS MONTHLY AND TWO WEEKS left foot wound left foot wound left foot wound Reason for Visit Chronic kidney disea se Hypertension Obesity Type II diabetes mellitus Hypertension Obesity Type II diabetes mellitus Cellulitis of left lower limb Diabetic foot infection Diabetic peripheral neuropathy History of immunosuppression therapy 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 foot ulcer Chronic kidney disease Hypertension Non-pressure chronic ulcer of other part of left foot with fat layer exposed Type II diabetes mellitus 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 Peripheral vascular disease, unspecified 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 Cellulitis of great toe, left History of diabetes mellitus History of kidney transplant Chief Complaint S/O--FAX RESULTS/ PT HAS MONTHLY AND TWO WEEKS 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 1 m fu CELLLULITIS OF FOOT CELLLULITIS OF FOOT CELLLULITIS OF FOOT CELLLULITIS OF FOOT CELLLULITIS OF FOOT wound S/O--FAX RESULTS/ PT HAS MONTHLY AND TWO WEEKS LEFT GREAT TOE CELLULITIS left foot wound left foot wound wound Reason for Visit Cellulitis of great toe, left Chief Complaint 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 1 m fu CELLLULITIS OF FOOT CELLLULITIS OF FOOT CELLLULITIS OF FOOT CELLLULITIS OF FOOT CELLLULITIS OF FOOT wound S/O--FAX RESULTS/ PT HAS MONTHLY AND TWO WEEKS LEFT GREAT TOE CELLULITIS left foot wound left foot wound wound 2 M FU wound Reason for Visit Chronic kidney disea se Hypertension Hypertension Chronic kidney disease Hypertension Cellulitis of great toe, left Chronic kidney disease Diabetes Hypertension Overweight (BMI 25.0-29.9) Chief Complaint BACK PAIN 1 m fu CELLLULITIS OF FOOT CELLLULITIS OF FOOT CELLLULITIS OF FOOT CELLLULITIS OF FOOT CELLLULITIS OF FOOT wound S/O--FAX RESULTS/ PT HAS MONTHLY AND TWO WEEKS LEFT GREAT TOE CELLULITIS left foot wound left foot wound wound 2 M FU wound S/O--FAX RESULTS/ PT HAS MONTHLY AND TWO WEEKS wound Reason for Visit Hypertension Chronic kidney disease Hypertension Cellulitis of great toe, left Chronic kidney disease Diabetes Hypertension Overweight (BMI 25.0-29.9) Hallux limitus of left foot Chief Complaint S/O--FAX RESULTS/ PT HAS MONTHLY AND TWO WEEKS LEFT GREAT TOE CELLULITIS left foot wound left foot wound wound 2 M FU wound S/O--FAX RESULTS/ PT HAS MONTHLY AND TWO WEEKS wound Other acute osteomyelitis, left ankle and foot Reason for Visit Cellulitis of great toe, left Chronic kidney disease Diabetes Hypertension Overweight (BMI 25.0-29.9) Hallux limitus of left foot Chief Complaint left foot wound wound 2 M FU wound S/O--FAX RESULTS/ PT HAS MONTHLY AND TWO WEEKS wound Other acute osteomyelitis, left ankle and foot Reason for Visit Chronic kidney disea se Diabetes Hypertension Overweight (BMI 25.0-29.9) Hallux limitus of left foot Chief Complaint 2 M FU wound S/O--FAX RESULTS/ PT HAS MONTHLY AND TWO WEEKS wound Other acute osteomyelitis, left ankle and foot S/O--FAX RESULTS/ PT HAS MONTHLY AND TWO WEEKS Reason for Visit Chronic kidney disea se Diabetes Hypertension Overweight (BMI 25.0-29.9) Hallux limitus of left foot Chief Complaint S/O--FAX RESULTS/ PT HAS MONTHLY AND TWO WEEKS wound Other acute osteomyelitis, left ankle and foot S/O--FAX RESULTS/ PT HAS MONTHLY AND TWO WEEKS 4 M FU Localized swelling, mass and lump, lower limb, bre Reason for Visit Hallux limitus of le ft foot Obesity (BMI 30.0-34.9) Chronic kidney disease Diabetes Hypertension Hypothyroidism Chief Complaint Other acute osteomye litis, left ankle and foot S/O--FAX RESULTS/ PT HAS MONTHLY AND TWO WEEKS 4 M FU Localized swelling, mass and lump, lower limb, bre S/O--FAX RESULTS/ PT HAS MONTHLY AND TWO WEEKS Reason for Visit Obesity (BMI 30.0-34 .9) Chronic kidney disease Diabetes Hypertension Hypothyroidism Chief Complaint S/O--FAX RESULTS/ PT HAS MONTHLY AND TWO WEEKS 4 M FU Localized swelling, mass and lump, lower limb, bre S/O--FAX RESULTS/ PT HAS MONTHLY AND TWO WEEKS Reason for Visit Obesity (BMI 30.0-34 .9) Chronic kidney disease Diabetes Hypertension Hypothyroidism Chief Complaint 4 M FU Localized swelling, mass and lump, lower limb, bre S/O--FAX RESULTS/ PT HAS MONTHLY AND TWO WEEKS S/O--FAX RESULTS/ PT HAS MONTHLY AND TWO WEEKS 3 M FU E ORDER LAB Reason for Visit Chronic kidney disea se Diabetes Hypertension Hypothyroidism Obesity (BMI 30.0-34.9) Heart murmur Chronic kidney disease Diabetes Hypothyroidism Obesity (BMI 30.0-34.9) Vitamin D deficiency Chief Complaint S/O--FAX RESULTS/ PT HAS MONTHLY AND TWO WEEKS S/O--FAX RESULTS/ PT HAS MONTHLY AND TWO WEEKS 3 M FU E ORDER LAB S/O EVERY 8 WEEKS Hyperparathyroidism, unspecified Reason for Visit Heart murmur Chronic kidney disease Diabetes Hypothyroidism Obesity (BMI 30.0-34.9) Vitamin D deficiency Chief Complaint S/O--FAX RESULTS/ PT HAS MONTHLY AND TWO WEEKS S/O--FAX RESULTS/ PT HAS MONTHLY AND TWO WEEKS 3 M FU E ORDER LAB S/O EVERY 8 WEEKS Hyperparathyroidism, unspecified PROLIA Reason for Visit Heart murmur Chronic kidney disease Diabetes Hypothyroidism Obesity (BMI 30.0-34.9) Vitamin D deficiency Chief Complaint S/O--FAX RESULTS/ PT HAS MONTHLY AND TWO WEEKS 3 M FU E ORDER LAB S/O EVERY 8 WEEKS Hyperparathyroidism, unspecified PROLIA Reason for Visit Heart murmur Chronic kidney disease Diabetes Hypothyroidism Obesity (BMI 30.0-34.9) Vitamin D deficiency Chief Complaint S/O--FAX RESULTS/ PT HAS MONTHLY AND TWO WEEKS 3 M FU E ORDER LAB S/O EVERY 8 WEEKS Hyperparathyroidism, unspecified PROLIA S/O EVERY 8 WEEKS 3 M FU Reason for Visit Chronic kidney disea se Diabetes Heart murmur Hypothyroidism Obesity (BMI 30.0-34.9) Vitamin D deficiency Osteoporosis Chronic kidney disease Diabetes Heart murmur Obesity (BMI 30.0-34.9) Chief Complaint S/O EVERY 8 WEEKS Hyperparathyroidism, unspecified PROLIA S/O EVERY 8 WEEKS 3 M FU 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 [ANCA] vascu Reason for Visit Chronic kidney disea se Diabetes Heart murmur Obesity (BMI 30.0-34.9) Osteoporosis Chief Complaint PROLIA S/O EVERY 8 WEEKS 3 M FU 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 [ANCA] vascu CARDIAC MURMUR (GITA) CAD Coronary artery disease MURMUR Reason for Visit Chronic kidney disea se Diabetes Heart murmur Obesity (BMI 30.0-34.9) Osteoporosis Essential hypertension Heart murmur Chief Complaint Antineutrophilic cyt oplasmic antibody [ANCA] vascu Antineutrophilic cytoplasmic antibody [ANCA] vascu CARDIAC MURMUR (GITA) CAD Coronary artery disease MURMUR S/O EVERY 8 WEEKS 3 M FU S/O EVERY 8 WEEKS Reason for Visit Essential hypertensi on Heart murmur Chronic kidney disease Diabetes Essential hypertension Obesity (BMI 30.0-34.9) Osteoporosis Chief Complaint Coronary artery dise ase MURMUR S/O EVERY 8 WEEKS 3 M FU S/O EVERY 8 WEEKS Z94.0 KIDNEY TRANSPLANT Reason for Visit Chronic kidney disea se Diabetes Essential hypertension Obesity (BMI 30.0-34.9) Osteoporosis Chief Complaint S/O EVERY 8 WEEKS 3 M FU S/O EVERY 8 WEEKS Z94.0 KIDNEY TRANSPLANT PROLIA Reason for Visit Chronic kidney disea se Diabetes Essential hypertension Obesity (BMI 30.0-34.9) Osteoporosis Chief Complaint Z94.0 KIDNEY TRANSPL ANT PROLIA 4 M FU, RS 12/11 S/O EVERY 8 WEEKS Reason for Visit Diabetes Hypothyroidism Microalbuminuria Obesity (BMI 30.0-34.9) Osteoporosis Vitamin D deficiency Chief Complaint 4 M FU, RS 12/11 S/O EVERY 8 WEEKS pain Reason for Visit Diabetes Hypothyroidism Microalbuminuria Obesity (BMI 30.0-34.9) Osteoporosis Vitamin D deficiency Chief Complaint 3 M FU S/O EVERY 8 WEEKS Z94.0 KIDNEY TRANSPLANT PROLIA Reason for Visit Chronic kidney disea se Diabetes Essential hypertension Obesity (BMI 30.0-34.9) Osteoporosis Chief Complaint Admit Date EORDER- CXR November 10, 2024 9:20am 3 M FU/Prolia - B&B November 12, 2024 11:41am DAVID November 26, 2024 9: 08am FEVER/COUGH December 14, 2024 2 :44pm 1 Y FU December 18, 2024 1 0:20am J45.901 - Unspecified asthma with (acute ) exacerba December 21, 2024 12:15pm nocturnal desaturations on BiPAP December 25, 2024 8:02pm J45.901 - Unspecified asthma with (acute ) exacerba December 30, 2024 1:27pm J45.901 - Unspecified asthma with (acute ) exacerba January 01, 2025 9:20am BIPAP REPAP January 11, 2025 11:42am 6-8 WK FU January 20, 2025 9:41am SOB February 10, 2025 4:4 8pm 3 M FU February 11, 2025 11: 35am Reason for Visit Admit Date Diabetes November 12, 2024 11:41am Essential hypertension November 12 11:41am Hyperlipidemia November 12, 2024 11:41am Hyperparathyroidism November 12, 2024 11:41am Hypothyroidism November 12, 2024 11:41am Microalbuminuria November 12, 2024 11:41am Obesity (BMI 30.0-34.9) November 12, 2 024 11:41am Osteoporosis November 12, 2024 11:41am Vitamin D deficiency November 12, 2024 11:41am Nocturnal hypoxemia November 26, 2024 9: 08am Asthmatic bronchitis with exacerbation J anuary 2024 9:08am DAVID (obstructive sleep apnea) November 9:08am Essential hypertension December 18 10:20am Heart murmur December 18, 2024 1 0:20am Hyperlipidemia December 18, 2024 1 0:20am Nocturnal hypoxemia January 20, 2025 9:41am Asthmatic bronchitis with exacerbation F ebruary 2024 9:41am DAVID (obstructive sleep apnea) December 272024 9:41am Chronic kidney disease February 11, 2025 11:35am Diabetes February 11, 2025 11: 35am Essential hypertension February 11, 2025 11:35am Hyperlipidemia February 11, 2025 11: 35am Hypothyroidism February 11, 2025 11: 35am Microalbuminuria February 11, 2025 11: 35am Obesity (BMI 30.0-34.9) February 11, 2025 11:35am Osteoporosis February 11, 2025 11: 35am Vitamin D deficiency February 11, 2025 11 :35am Chief Complaint Admit Date FEVER/COUGH December 14, 2024 2 :44pm 1 Y FU December 18, 2024 1 0:20am J45.901 - Unspecified asthma with (acute ) exacerba December 21, 2024 12:15pm nocturnal desaturations on BiPAP December 25, 2024 8:02pm J45.901 - Unspecified asthma with (acute ) exacerba December 30, 2024 1:27pm J45.901 - Unspecified asthma with (acute ) exacerba January 01, 2025 9:20am BIPAP REPAP January 11, 2025 11:42am 6-8 WK FU January 20, 2025 9:41am SOB February 10, 2025 4:4 8pm 3 M FU February 11, 2025 11: 35am Cough February 20, 2025 11: 19am S/O EVERY 8 WEEKS March 23, 2025 10: 12am 3 M FU April 07, 2025 9:34a m Reason for Visit Admit Date Essential hypertension December 18 10:20am Heart murmur December 18, 2024 1 0:20am Hyperlipidemia December 18, 2024 1 0:20am Nocturnal hypoxemia January 20, 2025 9:41am Asthmatic bronchitis with exacerbation F ebruary 2024 9:41am DAVID (obstructive sleep apnea) December 272024 9:41am Chronic kidney disease February 11, 2025 11:35am Diabetes February 11, 2025 11: 35am Essential hypertension February 11, 2025 11:35am Hyperlipidemia February 11, 2025 11: 35am Hypothyroidism February 11, 2025 11: 35am Microalbuminuria February 11, 2025 11: 35am Obesity (BMI 30.0-34.9) February 11, 2025 11:35am Osteoporosis February 11, 2025 11: 35am Vitamin D deficiency February 11, 2025 11 :35am Bacterial URI February 20, 2025 11: 19am Hypertension February 20, 2025 11: 19am Nocturnal hypoxemia April 07, 2025 9:34a m Asthmatic bronchitis with exacerbation M 2024 9:34am DAVID (obstructive sleep apnea) April 07, 2025 9:34am Chief Complaint Admit Date BIPAP REPAP January 11, 2025 11:42am 6-8 WK FU January 20, 2025 9:41am SOB February 10, 2025 4:4 8pm 3 M FU February 11, 2025 11: 35am Cough February 20, 2025 11: 19am S/O EVERY 8 WEEKS March 23, 2025 10: 12am 3 M FU April 07, 2025 9:34a m EORDERS May 04, 2025 9:05 am Reason for Visit Admit Date Nocturnal hypoxemia January 20, 2025 9:41am Asthmatic bronchitis with exacerbation F ebruary 2024 9:41am DAVID (obstructive sleep apnea) December 272024 9:41am Chronic kidney disease February 11, 2025 11:35am Diabetes February 11, 2025 11: 35am Essential hypertension February 11, 2025 11:35am Hyperlipidemia February 11, 2025 11: 35am Hypothyroidism February 11, 2025 11: 35am Microalbuminuria February 11, 2025 11: 35am Obesity (BMI 30.0-34.9) February 11, 2025 11:35am Osteoporosis February 11, 2025 11: 35am Vitamin D deficiency February 11, 2025 11 :35am Bacterial URI February 20, 2025 11: 19am Hypertension February 20, 2025 11: 19am Nocturnal hypoxemia April 07, 2025 9:34a m Asthmatic bronchitis with exacerbation M ay 2024 9:34am DAVID (obstructive sleep apnea) April 07, 2025 9:34am Chief Complaint Admit Date 6-8 WK FU January 20, 2025 9:41am SOB February 10, 2025 4:4 8pm 3 M FU February 11, 2025 11: 35am Cough February 20, 2025 11: 19am S/O EVERY 8 WEEKS March 23, 2025 10: 12am 3 M FU April 07, 2025 9:34a m EORDERS May 04, 2025 9:05 am SEE NOTES May 18, 2025 2:38 pm Reason for Visit Admit Date Nocturnal hypoxemia January 20, 2025 9:41am Asthmatic bronchitis with exacerbation F ebruary 2024 9:41am DAVID (obstructive sleep apnea) December 272024 9:41am Chronic kidney disease February 11, 2025 11:35am Diabetes February 11, 2025 11: 35am Essential hypertension February 11, 2025 11:35am Hyperlipidemia February 11, 2025 11: 35am Hypothyroidism February 11, 2025 11: 35am Microalbuminuria February 11, 2025 11: 35am Obesity (BMI 30.0-34.9) February 11, 2025 11:35am Osteoporosis February 11, 2025 11: 35am Vitamin D deficiency February 11, 2025 11 :35am Bacterial URI February 20, 2025 11: 19am Hypertension February 20, 2025 11: 19am Nocturnal hypoxemia April 07, 2025 9:34a m Asthmatic bronchitis with exacerbation M ay 2024 9:34am DAVID (obstructive sleep apnea) April 07, 2025 9:34am Coronary artery calcification seen on CA T scan May 18, 2025 2:38pm Essential hypertension May 18, 2025 2 :38pm Heart murmur May 18, 2025 2:38 pm Hyperlipidemia May 18, 2025 2:38 pm Chief Complaint Admit Date SOB February 10, 2025 4:4 8pm 3 M FU February 11, 2025 11: 35am Cough February 20, 2025 11: 19am S/O EVERY 8 WEEKS March 23, 2025 10: 12am 3 M FU April 07, 2025 9:34a m EORDERS May 04, 2025 9:05 am SEE NOTES May 18, 2025 2:38 pm 3 M FU May 24, 2025 2:02 pm Reason for Visit Admit Date Chronic kidney disease February 11, 2025 11:35am Diabetes February 11, 2025 11: 35am Essential hypertension February 11, 2025 11:35am Hyperlipidemia February 11, 2025 11: 35am Hypothyroidism February 11, 2025 11: 35am Microalbuminuria February 11, 2025 11: 35am Obesity (BMI 30.0-34.9) February 11, 2025 11:35am Osteoporosis February 11, 2025 11: 35am Vitamin D deficiency February 11, 2025 11 :35am Bacterial URI February 20, 2025 11: 19am Hypertension February 20, 2025 11: 19am Nocturnal hypoxemia April 07, 2025 9:34a m Asthmatic bronchitis with exacerbation [facility] 2024 9:34am DAVID (obstructive sleep apnea) April 07, 2025 9:34am Coronary artery calcification seen on CA T scan May 18, 2025 2:38pm Essential hypertension May 18, 2025 2 :38pm Heart murmur May 18, 2025 2:38 pm Hyperlipidemia May 18, 2025 2:38 pm Reason for Referral Specialty Diagnoses / Procedures Referred By Meng augustine Referred To Contact Al Carroll MD [address] [place] [address] Referral ID Status Reason Start Date Expiration Date Visits Re quested Visits Authorized [id number] Closed 1 1 Specialty Diagnoses / Procedures Referred By Meng augustine Referred To Contact Diagnoses Kidney replaced by transplant Long-term use of immunosuppressant medication Aftercare following organ transplant Abnormal blood chemistry Immunosuppressed status High risk medication use Other general symptoms and signs Procedures CT ABDOMEN/PELVIS WITHOUT CONTRAST CHG CT SCAN,ABDOMENT AND PELVIS,W/O CONTRAST Pierre Hung MD [address] [place] [address] [address], [place] [address] Referral ID Status Reason Start Date Expiration Date V isits Requested Visits Authorized [id number] New Request 03/19/2022 04/13/2023 1 1 Specialty Diagnoses / Procedures Referred By Meng t Referred To Contact Armando Jack MBBS [address] [place] [address] Referral ID Status Reason Start Date Expiration Date Visits Re quested Visits Authorized [id number] Closed 1 1 Specialty Diagnoses / Procedures Referred By Meng augustine Referred To Contact Diagnoses Kidney replaced by transplant Abnormal blood chemistry Aftercare following organ transplant Immunosuppressed status High risk medication use Left leg swelling Procedures VASC DUPLEX VENOUS EXTREMITY LOWER LEFT Armando Jack MBBS [address] [place] [address] Referral ID Status Reason Start Date Expiration Date V isits Requested Visits Authorized [id number] New Request 09/17/2022 10/12/2023 1 1 Specialty Diagnoses / Procedures Referred By Meng t Referred To Contact Diagnoses THOMASON (dyspnea on exertion) Procedures NUC MYOCARD PERF STRESS MIBI PHARM UT CHG MYOCARDIAL SPECT MULTIPLE STUDIES CHG MYOCARDIAL SPECT MULTIPLE STUDIES-T UT CARDIAC STRESS TST,INTERP/REPT ONLY UT CV STRS TST XERS&/OR RX CONT ECG W/O I&R Stacie Manrique MD [address] [place] [address] Referral ID Status Reason Start Date Expiration Date V isits Requested Visits Authorized [id number] New Request 03/21/2023 04/14/2024 1 1 Specialty Diagnoses / Procedures Referred By Meng t Referred To Contact Diagnoses 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 Murmur History of heart failure Procedures ECHOCARDIOGRAM UT ECHO HEART XTHORACIC,COMPLETE W DOPPLER Stacie Manrique MD [address] [place] [address] Referral ID Status Reason Start Date Expiration Date V isits Requested Visits Authorized [id number] New Request 03/21/2023 04/14/2024 1 1 Specialty Diagnoses / Procedures Referred By Meng t Referred To Contact Diagnoses Kidney replaced by transplant Abnormal blood chemistry Aftercare following organ transplant Immunosuppressed status High risk medication use Procedures US RENAL Toño Joyce MD, KIM [address] [place] [address] Referral ID Status Reason Start Date Expiration Date V isits Requested Visits Authorized [id number] New Request 09/23/2023 10/17/2024 1 1 Specialty Diagnoses / Procedures Referred By Meng t Referred To Contact Diagnoses Kidney replaced by transplant Abnormal blood chemistry Aftercare following organ transplant Immunosuppressed status High risk medication use Procedures US RENAL TRANSPLANT SCAN Toño Joyce MD, KIM [address] [place] [address] Referral ID Status Reason Start Date Expiration Date V isits Requested Visits Authorized [id number] New Request 09/23/2023 10/17/2024 1 1 Specialty Diagnoses / Procedures Referred By Meng t Referred To Contact Diagnoses Kidney replaced by transplant Aftercare following organ transplant Other complication of kidney transplant Procedures CT ABDOMEN/PELVIS WITHOUT CONTRAST CHG CT SCAN,ABDOMENT AND PELVIS,W/O CONTRAST Armando Jack MBBS [address] [place] [address] Referral ID Status Reason Start Date Expiration Date Visits Re quested Visits Authorized [id number] Closed 10/11/2023 11/04/2024 1 1 Specialty Diagnoses / Procedures Referred By Meng t Referred To Contact Diagnoses Other transplanted organ and tissue status Procedures CT CHEST WITHOUT CONTRAST CHG DIAGNOSTIC COMPUTED TOMOGRAPHY THORAX W/O CNTRST Toño Joyce MD, MBBS [address] [place] [address] Referral ID Status Reason Start Date Expiration Date Visits Re quested Visits Authorized [id number] Closed 10/14/2023 11/07/2024 1 1 Additional Source Comments (unrecognized sect ion and content) No Status Records FoundNo Status Records FoundNo Status Records FoundNo Status Records FoundNo Status Records FoundNo Status Records FoundNo Status Records Found INFORMATION SOURCE (unrecogn ized section and content) DATE CREATED AUTHOR 09/01/2018 [facility] DATE CREATED AUTHOR AUTHOR'S ORGANIZ ATION 09/03/2018 [facility] DATE CREATED AUTHOR AUTHOR'S ORGANIZ ATION 11/02/2018 [facility] DATE CREATED AUTHOR AUTHOR'S ORGANIZ ATION 06/15/2020 [facility] ([place]) DATE CREATED AUTHOR AUTHOR'S ORGANIZ ATION 05/15/2025 [facility] DATE CREATED AUTHOR AUTHOR'S ORGANIZ ATION 06/15/2025 [facility] DATE CREATED AUTHOR AUTHOR'S ORGANIZ ATION 06/15/2025 [facility] Goals (unrecognized section and content) Goals may be documented in a n alternate sectionGoals may be documented in an alternate sectionGoals may be documented in an alternate sectionGoals may be documented in an alternate sectionGoals may be documented in an alternate sectionGoals may be documented in an alternate sectionGoals may be documented in an alternate sectionGoals may be documented in an alternate sectionGoals may be documented in an alternate sectionGoals may be documented in an alternate sectionGoals may be documented in an alternate sectionGoals may be documented in an alternate sectionGoals may be documented in an alternate sectionGoals may be documented in an alternate sectionGoals may be documented in an alternate sectionGoals may be documented in an alternate sectionGoals may be documented in an alternate sectionGoals may be documented in an alternate sectionGoals may be documented in an alternate sectionGoals may be documented in an alternate sectionGoals may be documented in an alternate sectionGoals may be documented in an alternate sectionGoals may be documented in an alternate sectionGoals may be documented in an alternate sectionGoals may be documented in an alternate sectionGoals may be documented in an alternate sectionGoals may be documented in an alternate sectionGoals may be documented in an alternate section Reason for Visit (unrecogniz ed section and content) Reason Comments Follow-up Reason Comments Kidney Recipient Follow-up Reason Comments Surgical Follow-up Reason Comments New Patient Specialty Diagnoses / Procedures Referred By Meng t Referred To Contact Dermatology Diagnoses Granulomatosis with polyangiitis, unspecified whether renal involvement Megan Canales MD [address] [address] Referral ID Status Reason Start Date Expiration Date Visits Re quested Visits Authorized [id number] Closed 09/18/2021 10/13/2022 1 1 Reason Onset Date Comments Insurance 12/19/2022 Reason Comments Follow-up Reason Comments New Patient Establish care with Dr. Manrique Specialty Diagnoses / Procedures Referred By Meng t Referred To Contact Cardiovascular Medicine Diagnoses ANCA-associated vasculitis Megan Canales MD [address] [address] Referral ID Status Reason Start Date Expiration Date V isits Requested Visits Authorized [id number] New Request 01/28/2023 02/22/2024 1 1 Specialty Diagnoses / Procedures [facility] Referred To Contact Nuclear Medicine Diagnoses THOMASON (dyspnea on exertion) Procedures NUC MYOCARD PERF STRESS MIBI PHARM UT CHG MYOCARDIAL SPECT MULTIPLE STUDIES CHG MYOCARDIAL SPECT MULTIPLE STUDIES-T UT CARDIAC STRESS TST,INTERP/REPT ONLY UT CV STRS TST XERS&/OR RX CONT ECG W/O I&R Stacie Manrique MD [address] [address] [facility] [place] [address] [place] [address] Referral ID Status Reason Start Date Expiration Date Visits Requested Visits Authorized [id number] Authorized - 03/21/2023 04/14/2024 1 1 Reason Comments Follow-up Follow up on warts- patient states they have worsened. Arms and legs. Reason Comments Warts Reason Comments Follow-up 3 Mo follow up - ANC ATOC from Dr. Canales Specialty Diagnoses / Procedures Referred By Meng t Referred To Contact Diagnoses Kidney replaced by transplant Aftercare following organ transplant Other complication of kidney transplant Procedures CT ABDOMEN/PELVIS WITHOUT CONTRAST CHG CT SCAN,ABDOMENT AND PELVIS,W/O CONTRAST Armando Jack MBBS [address] [place] [address] Referral ID Status Reason Start Date Expiration Date Visits Re quested Visits Authorized [id number] Closed 10/11/2023 11/04/2024 1 1 Specialty Diagnoses / Procedures Referred By Contac t Referred To Contact Diagnoses Other transplanted organ and tissue status Procedures CT CHEST WITHOUT CONTRAST CHG DIAGNOSTIC COMPUTED TOMOGRAPHY THORAX W/O CNTRST Toño Joyce MD, KIM [address] [place] [address] Referral ID Status Reason Start Date Expiration Date Visits Re quested Visits Authorized [id number] Closed 10/14/2023 11/07/2024 1 1 Reason Comments New Patient Re-establishing care per Dr. Damon was advised that he needs nephrology on his case. Specialty Diagnoses / Procedures Referred By Meng augustine Referred To Contact Nephrology Diagnoses ANCA-associated vasculitis Macy Damon, DO [address] [address] Referral ID Status Reason Start Date Expiration Date V isits Requested Visits Authorized [id number] New Request 10/21/2023 11/14/2024 1 1 Reason Comments Contact Order Problem PSG order problem Reason Comments Orders Received faxed CPAP order and signed office note request from [facility]. Placed on [employer]'s desk for review and signature. Reason Comments Orders Faxed signed CPAP Rx and e-signed office note to [facility] bethanie Junior at [phone]. Reason Comments Kidney Recipient Follow-up Reason Comments Flu Like Symptoms Fever, vomiting, diana rrhea, chills x today Reason Comments Patient Update [facility] CPAP Care Teams (unrecognized sec tion and content) Nurse Companion Relationship Specialty Start Date End Date Marques Casanova MD [address] [facility] [address] [place] [address] PCP - General Family Medicine 10/01/19 Carleen Rosario MBBS [address] [place] [address] School Psychologist Assistant Nephrology 02/06/19 Megan Canales MD [address] [place] [address] [employer] Rheumatology 02/06/19 Ana Maria Bai MD [address] [place] [address] Radiology Nurse Pulmonary Disease 02/06/19 Nurse Companion Relationship Specialty Start Date End Date Marques Casanova MD [address] [facility] [address] [place] [phone] PCP - General Family Medicine 10/01/19 Carleen Rosario MBBS [address] [address] School Psychologist Assistant Nephrology 02/06/19 Megan Canales MD [address] [place] [address] [employer] Rheumatology 02/06/19 Ana Maria Bai MD [address] [address] Radiology Nurse Pulmonary Disease 02/06/19 Nurse Companion Relationship Specialty Start Date End Date Marques Casanova MD [address] [place] [facility] [address] [place] [phone] PCP - General Family Medicine 10/01/19 Carleen Rosario MBBS [address] [address] School Psychologist Assistant Nephrology 02/06/19 Megan Canales MD [address] [place] [address] [employer] Rheumatology 02/06/19 Ana Maria Bai MD [address] [place] [address] Radiology Nurse Pulmonary Disease 02/06/19 Nurse Companion Relationship Specialty Start Date End Date Marques Casanova MD [address] [place] [facility] [address] [place] [phone] PCP - General Family Medicine 10/01/19 Carleen Rosario MBBS [address] [address] School Psychologist Assistant Nephrology 02/06/19 Megan Canales MD [address] [place] [address] [employer] Rheumatology 02/06/19 Ana Maria Bai MD [address] [place] [address] Radiology Nurse Pulmonary Disease 02/06/19 Nurse Companion Relationship Specialty Start Date End Date Marques Casanova MD [address] [place] [facility] [address] [place] [phone] PCP - General Family Medicine 10/01/19 Carleen Rosario MBBS [address] [place] [address] School Psychologist Assistant Nephrology 02/06/19 Megan Canales MD [address] [address] [employer] Rheumatology 02/06/19 Ana Maria Bai MD [address] [place] [address] Radiology Nurse Pulmonary Disease 02/06/19 Nurse Companion Relationship Specialty Start Date End Date Marques Casanova MD [address] [facility] [address] [place] [phone] PCP - General Family Medicine 10/01/19 Carleen Rosario MBBS [address] [address] School Psychologist Assistant Nephrology 02/06/19 Megan Canales MD [address] [place] [address] [employer] Rheumatology 02/06/19 Ana Maria Bai MD [address] [place] [address] Radiology Nurse Pulmonary Disease 02/06/19 Nurse Companion Relationship Specialty Start Date End Date Marques Casanova MD [address] [facility] [address] [place] [address] PCP - General Family Medicine 10/01/19 Carleen Rosario MBBS [address] [place] [address] School Psychologist Assistant Nephrology 02/06/19 Megan Canales MD [address] [place] [address] [employer] Rheumatology 02/06/19 Ana Maria Bai MD [address] [address] Radiology Nurse Pulmonary Disease 02/06/19 Nurse Companion Relationship Specialty Start Date End Date Marques Casanova MD [address] [phone] PCP - General Family Medicine 10/01/19 Carleen Rosario MBBS [address] [address] School Psychologist Assistant Nephrology 02/06/19 Megan Canales MD [address] [address] [employer] Rheumatology 02/06/19 Ana Maria Bai MD [address] [address] Radiology Nurse Pulmonary Disease 02/06/19 Team Status: Active Member Role Status Dates Dr. Marques Casanova MD Family Provider Active Dr. Marques Casanova MD Primary Care Provider Active Team Status: Inactive Member Role Status Dates Dr. Marques Casanova MD Primary Care Provider, Referr ing Provider Active TAMEKA Pond Attending Provider Active Team Status: Active Member Role Status Dates Dr. Marques Casanova MD Primary Care Provider Active Dr. Pedro Owens MD Attending Provider Active Dr. Santo Esparza DPM Referring Provider Active Team Status: Inactive Member Role Status Dates Dr. Marques Casanova MD Primary Care Provider Active LESLYE NUNEZ Attending Provider, Referring Provider Ac SERGEY Self Other Provider Active Dr. Santo Esparza DPM Other Provider Active Team Status: Inactive Member Role Status Dates Dr. Marques Casanova MD Primary Care Provider Active Dr. Santo Esparza DPM Attending Provider Active Team Status: Active Member Role Status Dates Dr. Marques Casanova MD Primary Care Provider Active LESLYE NUNEZ Attending Provider, Referring Provider Ac SERGEY Self Other Provider Active Dr. Santo Esparza DPM Other Provider Active Team Status: Inactive Member Role Status Dates Dr. Marques Casanova MD Primary Care Provider Active Dr. Santo Esparza DPM Attending Provider, Referring Provider Active ANDREINA RODRIGUEZ Other Provider Active Team Status: Inactive Member Role Status Dates Dr. Marques Casanova MD Primary Care Provider, Attend ing Provider Active Nurse Companion Relationship Specialty Start Date End Date Marques Casanova MD [address] [facility] [address] [place] [phone] PCP - General Family Medicine 10/01/19 Carleen Rosario MBBS [address] [phone] School Psychologist Assistant Nephrology 02/06/19 Megan Canales MD [address] [phone] Alpine Guide Rheumatology 02/06/19 Ana Maria Bai MD [address] [phone] Radiology Nurse Pulmonary Disease 02/06/19 Nurse Companion Relationship Specialty Start Date End Date Marques Casanova MD [address] [facility] [address] [place] [phone] PCP - General Family Medicine 10/01/19 Carleen Rosario MBBS [address] [address] School Psychologist Assistant Nephrology 02/06/19 Megan Canales MD [address] [address] Alpine Guide Rheumatology 02/06/19 Ana Maria Bai MD [address] [address] Radiology Nurse Pulmonary Disease 02/06/19 Team Status: Active Member Role Status Dates Dr. Marques Casanova MD Primary Care Provider Active TAMEKA Pond Attending Provider, Referring Pr ovider Active TAMEKA Alfaro Other Provider Active Team Status: Inactive Member Role Status Dates Dr. Marques Casanova MD Primary Care Provider Active TAMEKA Pond Attending Provider, Referring Pr ovider Active TAMEKA Alfaro Other Provider Active Nurse Companion Relationship Specialty Start Date End Date Marques Casanova MD [address] [facility] [address] [place] [phone] PCP - General Family Medicine 10/01/19 Carleen Rosario MBBS [address] [phone] School Psychologist Assistant Nephrology 02/06/19 Megan Canales MD [address] [address] Alpine Guide Rheumatology 02/06/19 Ana Maria Bai MD [address] [address] Radiology Nurse Pulmonary Disease 02/06/19 Nurse Companion Relationship Specialty Start Date End Date Marques Casanova MD [address] [facility] [address] [place] [phone] PCP - General Family Medicine 10/01/19 Carleen Rosario MBBS [address] [phone] School Psychologist Assistant Nephrology 02/06/19 Megan Canales MD [address] [phone] Alpine Guide Rheumatology 02/06/19 Ana Maria Bai MD [address] [phone] Radiology Nurse Pulmonary Disease 02/06/19 Team Status: Active Member Role Status Dates Dr. Marques Casanova MD Primary Care Provider Active Dr. Santo Esparza DPM Other Provider Active ANDREINA RODRIGUEZ Attending Provider Active Team Status: Inactive Member Role Status Dates Dr. Marquse Casanova MD Primary Care Provider Active Dr. Tyler Head MD Attending Provider, Referring Provi gloria Active Nurse Companion Relationship Specialty Start Date End Date Marques Casanova MD [address] [facility] [address] [place] [phone] PCP - General Family Medicine 10/01/19 Carleen Rosario MBBS [address] [phone] School Psychologist Assistant Nephrology 02/06/19 Megan Canales MD [address] [phone] Alpine Guide Rheumatology 02/06/19 Ana Maria Bai MD [address] [address] Radiology Nurse Pulmonary Disease 02/06/19 Team Status: Inactive Member Role Status Dates Dr. Marques Casanova MD Primary Care Provider Active JACQUE PondC Attending Provider, Referring Pr ovider Active Nurse Companion Relationship Specialty Start Date End Date Marques Casanova MD [address] [place] [address] [place] [phone] PCP - General Family Medicine 10/01/19 Carleen Rosario MBBS [address] [address] School Psychologist Assistant Nephrology 02/06/19 Megan Canales MD [address] [address] Alpine Guide Rheumatology 02/06/19 Ana Maria Bai MD [address] [address] Radiology Nurse Pulmonary Disease 02/06/19 Team Status: Inactive Member Role Status Dates Dr. Marques Casanova MD Primary Care Provider Active Dr. Santo Esparza DPM Other Provider Active ANDREINA RODRIGUEZ Attending Provider Active Team Status: Inactive Member Role Status Dates Dr. Marques Casanova MD Primary Care Provider Active Dr. Santo Esparza DPM Other Provider Active ANDREINA RODRIGUEZ Attending Provider, Referring Provid er Active Team Status: Active Member Role Status Dates Dr. Marques Casanova MD Primary Care Provider Active VINNY GUZMAN Referring Provider, Other Provider Active Dr. Gerson Prasad DO Attending Provider Active Team Status: Inactive Member Role Status Dates Dr. Marques Casanova MD Primary Care Provider Active VINNY GUZMAN Attending Provider, Referring Provider Ac tive Nurse Companion Relationship Specialty Start Date End Date Marques Casanova MD [address] [facility] [address] [place] [phone] PCP - General Family Medicine 10/01/19 Carleen Rosario MBBS [address] [phone] School Psychologist Assistant Nephrology 02/06/19 Megan Canales MD [address] [phone] Alpine Guide Rheumatology 02/06/19 Ana Maria Bai MD [address] [place] [address] Radiology Nurse Pulmonary Disease 02/06/19 Team Status: Inactive Member Role Status Dates Dr. Marques Casanova MD Primary Care Provider, Referr ing Provider Active Dr. George Braswell MD Attending Provider Active Team Status: Active Member Role Status Dates Dr. Marques Casanova MD Primary Care Provider Active Dr. George Braswell MD Attending Provider, Referring Provider, Other Provider Active Team Status: Active Member Role Status Dates Dr. Marques Casanova MD Primary Care Provider Active Dr. George Braswell MD Attending Provider Active Team Status: Inactive Member Role Status Dates Dr. Marques Casanova MD Primary Care Provider Active Dr. George Braswell MD Attending Provider, Referring Pro vider Active Nurse Companion Relationship Specialty Start Date End Date Marques Dumont(Historical) unknown PCP - General 10/29/19 Vannessa Blakely I, DO [address] [facility] [address] [place], [place] [id number] Physician Nephrology 05/14/18 Nurse Companion Relationship Specialty Start Date End Date Marques Casanova MD [address] [facility] [address] [place] [address] PCP - General Family Medicine 10/01/19 Carleen Rosario MBBS [address] [place] [address] School Psychologist Assistant Nephrology 02/06/19 Megan Canales MD [address] [place] [address] Alpine Guide Rheumatology 02/06/19 Ana Maria Bai MD [address] [place] [phone] Radiology Nurse Pulmonary Disease 02/06/19 Nurse Companion Relationship Specialty Start Date End Date Marques Casanova MD [address] [facility] [address] [place] [phone] PCP - General Family Medicine 10/01/19 Carleen Rosario MBBS [address] [place] [phone] School Psychologist Assistant Nephrology 02/06/19 Megan Canales MD [address] [place] [phone] Alpine Guide Rheumatology 02/06/19 Ana Maria Bai MD [address] [place] [phone] Radiology Nurse Pulmonary Disease 02/06/19 Team Status: Inactive Member Role Status Dates Dr. Marques Casanova MD Primary Care Provider Active MARIA DEL CARMEN SANDY Attending Provider, Referring Provider Ac tive Nurse Companion Relationship Specialty Start Date End Date Marques Casanova MD [address] [facility] [address] [place] [phone] PCP - General Family Medicine 10/01/19 Carleen Rosario MBBS [address] [place] [phone] School Psychologist Assistant Nephrology 02/06/19 Megan Caanles MD [address] [place] [phone] Alpine Guide Rheumatology 02/06/19 Ana Maria Bai MD [address] [place] [phone] Radiology Nurse Pulmonary Disease 02/06/19 Nurse Companion Relationship Specialty Start Date End Date Marques Casanova MD [address] [facility] [address] [place] [phone] PCP - General Family Medicine 10/01/19 Carleen Rosario MBBS [address] [place] [phone] School Psychologist Assistant Nephrology 02/06/19 Megan Canales MD [address] [place] [phone] Alpine Guide Rheumatology 02/06/19 Ana Maria Bai MD [address] [place] [phone] Radiology Nurse Pulmonary Disease 02/06/19 Nurse Companion Relationship Specialty Start Date End Date Marques Casanova MD [address] [facility] [address] [place] [phone] PCP - General Family Medicine 10/01/19 Carleen Rosario MBBS [address] [place] [phone] School Psychologist Assistant Nephrology 02/06/19 Megan Canales MD [address] [place] [address] Alpine Guide Rheumatology 02/06/19 Ana Maria Bai MD [address] [place] [phone] Radiology Nurse Pulmonary Disease 02/06/19 Nurse Companion Relationship Specialty Start Date End Date Marques Casanova MD [address] [place] [address] [place] [phone] PCP - General Family Medicine 10/01/19 Carleen Rosario MBBS [address] [place] [phone] School Psychologist Assistant Nephrology 02/06/19 Megan Canales MD [address] [place] [phone] Alpine Guide Rheumatology 02/06/19 Ana Maria Bai MD [address] [place] [phone] Radiology Nurse Pulmonary Disease 02/06/19 Nurse Companion Relationship Specialty Start Date End Date Marques Casanova MD [address] [place] [address] [place] [phone] PCP - General Family Medicine 10/01/19 Carleen Rosario MBBS [address] [place] [address] School Psychologist Assistant Nephrology 02/06/19 Megan Canales MD [address] [place] [phone] Alpine Guide Rheumatology 02/06/19 Ana Maria Bai MD [address] [place] [phone] Radiology Nurse Pulmonary Disease 02/06/19 Team Status: Inactive Member Role Status Dates Dr. Marques Casanova MD Primary Care Provider Active Dr. Santo Esparza , DPErinn Other Provider Active ANDREINA RODRIGUEZ Attending Provider, Referring Provid er Active MARIA DEL CARMEN SANDY Other Provider Active Nurse Companion Relationship Specialty Start Date End Date Marques Casanova MD [address] [facility] [address] [place] [address] PCP - General Family Medicine 10/01/19 Carleen Rosario MD, MBBS [address] [place] [phone] School Psychologist Assistant Nephrology 02/06/19 Megan Canales MD [address] [place] [phone] Alpine Guide Rheumatology 02/06/19 Ana Maria Bai MD [address] [place] [phone] Radiology Nurse Pulmonary Disease 02/06/19 Nurse Companion Relationship Specialty Start Date End Date Marques Casanova MD [address] [address] [place] [phone] PCP - General Family Medicine 10/01/19 Carleen Rosario MD, MBBS [address] [phone] School Psychologist Assistant Nephrology 02/06/19 Megan Canales MD [address] [phone] Alpine Guide Rheumatology 02/06/19 Ana Maria Bai MD [address] [phone] Radiology Nurse Pulmonary Disease 02/06/19 Nurse Companion Relationship Specialty Start Date End Date Marques Casanova MD [address] [facility] [address] [place] [phone] PCP - General Family Medicine 10/01/19 Carleen Rosario MD, MBBS [address] [phone] School Psychologist Assistant Nephrology 02/06/19 Megan Canales MD [address] [phone] Alpine Guide Rheumatology 02/06/19 Ana Maria Bai MD [address] [phone] Radiology Nurse Pulmonary Disease 02/06/19 Nurse Companion Relationship Specialty Start Date End Date Marques Casanova MD [address] [facility] [address] [place] [phone] PCP - General Family Medicine 10/01/19 Carleen Rosario MD, MBBS [address] [phone] School Psychologist Assistant Nephrology 02/06/19 Megan Canales MD [address] [phone] Alpine Guide Rheumatology 02/06/19 Ana Maria Bai MD [address] [phone] Radiology Nurse Pulmonary Disease 02/06/19 Team Status: Inactive Member Role Status Dates Dr. Marques Casanova MD Primary Care Pr ovider, Attending Provider, Referring Provider Active Nurse Companion Relationship Specialty Start Date End Date Marques Dumont(Historical) unknown PCP - General 10/29/19 Vannessa Blakely I, DO [address] [id number] Physician Nephrology 05/14/18 Nurse Companion Relationship Specialty Start Date End Date Marques Casanova MD [address] [facility] [address] [place] [phone] PCP - General Family Medicine 10/01/19 Carleen Rosario MBBS [address] [phone] School Psychologist Assistant Nephrology 02/06/19 Megan Canales MD [address] [phone] Alpine Guide Rheumatology 02/06/19 Ana Maria Bai MD [address] [phone] Radiology Nurse Pulmonary Disease 02/06/19 Nurse Companion Relationship Specialty Start Date End Date Marques Dumont(Historical) unknown PCP - General 10/29/19 Vannessa Blakely I, DO [address] [facility] [address] [place] [address] Physician Nephrology 05/14/18 Nurse Companion Relationship Specialty Start Date End Date Marques Casanova MD [address] [facility] [address] [place] [phone] PCP - General Family Medicine 10/01/19 Carleen Rosario MBBS [address] [phone] School Psychologist Assistant Nephrology 02/06/19 Megan Canales MD [address] [phone] Alpine Guide Rheumatology 02/06/19 Ana Maria Bai MD [address] [phone] Radiology Nurse Pulmonary Disease 02/06/19 Nurse Companion Relationship Specialty Start Date End Date Marques Casanova MD [address] [facility] [address] [place] [phone] PCP - General Family Medicine 10/01/19 Carleen Rosario MBBS [address] [phone] School Psychologist Assistant Nephrology 02/06/19 Megan Canales MD [address] [phone] Alpine Guide Rheumatology 02/06/19 Ana Maria Bai MD [address] [phone] Radiology Nurse Pulmonary Disease 02/06/19 Nurse Companion Relationship Specialty Start Date End Date Marques Dumont(Historical) unknown PCP - General 10/29/19 Vannessa Blakely I, DO [address] [id number] Physician Nephrology 05/14/18 Nurse Companion Relationship Specialty Start Date End Date Marques Casanova MD [address] [facility] [address] [place] [phone] PCP - General Family Medicine 10/01/19 Carleen Rosario MBBS [address] [phone] School Psychologist Assistant Nephrology 02/06/19 Megan Canales MD [address] [phone] Alpine Guide Rheumatology 02/06/19 Ana Maria Bai MD [address] [phone] Radiology Nurse Pulmonary Disease 02/06/19 Nurse Companion Relationship Specialty Start Date End Date Marques Casanova MD [address] [facility] [address] [place] [phone] PCP - General Family Medicine 10/01/19 Carleen Rosario MBBS [address] [phone] School Psychologist Assistant Nephrology 02/06/19 Megan Canales MD [address] [phone] Alpine Guide Rheumatology 02/06/19 Ana Maria Bai MD [address] [phone] Radiology Nurse Pulmonary Disease 02/06/19 Nurse Companion Relationship Specialty Start Date End Date Marques Dumont(Historical) unknown PCP - General 10/29/19 Vannessa Blakely I, DO [address] [facility] [address] [place] [address] Physician Nephrology 05/14/18 Team Status: Active Member Role Status Dates Dr. Marques Casanova MD Primary Care Provider Active Team Status: Inactive Member Role Status Dates Dr. Marques Casanova MD Primary Care Provider Active Start: November 10, 2024 End: November 10, 2024 Dr. Marques Casanova MD Attending Provider Active Start: November 10, 2024 End: November 10, 2024 Dr. Marques Casanova MD Referring Provider Active Start: November 10, 2024 End: November 10, 2024 Team Status: Inactive Member Role Status Dates Dr. Marques Casanova MD Primary Care Provider Active Start: November 12, 2024 End: November 12, 2024 Dr. Marques Casanova MD Referring Provider Active Start: November 12, 2024 End: November 12, 2024 TAMEKA Pond Attending Provider Active Start: November 12, 2024 End: November 12, 2024 Team Status: Inactive Member Role Status Dates Dr. Marques Casanova MD Primary Care Provider Active Start: November 26, 2024 End: November 26, 2024 Dr. Marques Casanova MD Referring Provider Active Start: November 26, 2024 End: November 26, 2024 TAMEKA Chatman Attending Provider Active Start: November 26, 2024 End: November 26, 2024 Team Status: Inactive Member Role Status Dates Dr. Marques Casanova MD Primary Care Provider Active Start: December 14, 2024 End: December 14, 2024 Dr. Marques Casanova MD Referring Provider Active Start: December 14, 2024 End: December 14, 2024 Homer Chapin PA, PA Attending Provider Active Start: December 14, 2024 End: December 14, 2024 Team Status: Inactive Member Role Status Dates Dr. Marques Casanova MD Primary Care Provider Active Start: December 18, 2024 End: December 18, 2024 Dr. Marques Casanova MD Referring Provider Active Start: December 18, 2024 End: December 18, 2024 Alysa Solomon PA, PA Attending Provider Active Start: December 18, 2024 End: December 18, 2024 Team Status: Inactive Member Role Status Dates Dr. Marques Casanova MD Primary Care Provider Active Start: December 21, 2024 End: December 21, 2024 TAMEKA Chatman Attending Provider Active Start: December 21, 2024 End: December 21, 2024 TAMEKA Chatman Referring Provider Active Start: December 21, 2024 End: December 21, 2024 Team Status: Inactive Member Role Status Dates Dr. Marques Casanova MD Primary Care Provider Active Start: December 25, 2024 End: December 25, 2024 TAMEKA Chatman Attending Provider Active Start: December 25, 2024 End: December 25, 2024 Chikis Jacobson NP-C Referring Provider Active Start: December 25, 2024 End: December 25, 2024 Team Status: Active Member Role Status Dates Dr. Marques Casanova MD Primary Care Provider Active Start: December 30, 2024 Chikis Jacobson NP-John Referring Provider Active Start: December 30, 2024 Chikis Jacobson NP-C Other Provider Active St art: December 30, 2024 Dr. Gerson Prasad DO Attending Provider Active S tart: December 30, 2024 Team Status: Inactive Member Role Status Dates Dr. Marques Casanova MD Primary Care Provider Active Start: January 01, 2025 End: January 01, 2025 TAMEKA Chatman Attending Provider Active Start: January 01, 2025 End: January 01, 2025 Chikis Jacobson NP-C Referring Provider Active Start: January 01, 2025 End: January 01, 2025 Team Status: Inactive Member Role Status Dates Dr. Marques Casanova MD Primary Care Provider Active Start: January 11, 2025 End: January 11, 2025 Chikis Jacobson NP-C Attending Provider Active Start: January 11, 2025 End: January 11, 2025 Team Status: Inactive Member Role Status Dates Dr. Marques Casanova MD Primary Care Provider Active Start: January 20, 2025 End: January 20, 2025 Dr. aMrques Casanova MD Referring Provider Active Start: January 20, 2025 End: January 20, 2025 Chikis Jacobson NP-C Attending Provider Active Start: January 20, 2025 End: January 20, 2025 Team Status: Inactive Member Role Status Dates Dr. Marques Casanova MD Primary Care Provider Active Start: February 10, 2025 End: February 10, 2025 TAMEKA Chatman Attending Provider Active Start: February 10, 2025 End: February 10, 2025 Chikis Jacobson NP-John Referring Provider Active Start: February 10, 2025 End: February 10, 2025 Team Status: Inactive Member Role Status Dates Dr. Marques Casanova MD Primary Care Provider Active Start: February 11, 2025 End: February 11, 2025 Dr. Marques Casanova MD Referring Provider Active Start: February 11, 2025 End: February 11, 2025 JACQUE PondC Attending Provider Active Start: February 11, 2025 End: February 11, 2025 Team Status: Inactive Member Role Status Dates Dr. Marques Casanova MD Primary Care Provider Active Start: February 20, 2025 End: February 20, 2025 Dr. Marques Casanova MD Referring Provider Active Start: February 20, 2025 End: February 20, 2025 JACQUE ShieldsC Attending Provider Active Start: February 20, 2025 End: February 20, 2025 Team Status: Inactive Member Role Status Dates Dr. Marques Casanova MD Primary Care Provider Active Start: March 23, 2025 End: March 24, 2025 Dr. Santo Esparza DPM Other Provider Active S tart: March 23, 2025 End: March 24, 2025 ANDREINA RODRIGUEZ Attending Provider Active Star t: March 23, 2025 End: March 24, 2025 ANDREINA RODRIGUEZ Referring Provider Active Star t: March 23, 2025 End: March 24, 2025 MARIA DEL CARMEN SANDY Other Provider Active Start: March 23, 2025 End: March 24, 2025 Team Status: Inactive Member Role Status Dates Dr. Marques Casanova MD Primary Care Provider Active Start: April 07, 2025 End: April 07, 2025 Dr. Marques Casanova MD Referring Provider Active Start: April 07, 2025 End: April 07, 2025 Chikis Jacobson NP-C Attending Provider Active Start: April 07, 2025 End: April 07, 2025 Team Status: Inactive Member Role Status Dates Dr. Marques Casanova MD Primary Care Provider Active Start: May 04, 2025 End: May 04, 2025 Dr. Marques Casanova MD Attending Provider Active Start: May 04, 2025 End: May 04, 2025 Dr. Marques Casanova MD Referring Provider Active Start: May 04, 2025 End: May 04, 2025 Nurse Companion Relationship Specialty Start Date End Date Marques Dumont(Historical) unknown PCP - General 10/29/19 Vannessa Blakely I, DO [address] [place] [address] Physician Nephrology 05/14/18 Team Status: Inactive Member Role Status Dates Dr. Marques Casanova MD Primary Care Provider Active Start: May 18, 2025 End: May 18, 2025 Dr. Marques Casanova MD Referring Provider Active Start: May 18, 2025 End: May 18, 2025 Alysa Solomon PA, PA Attending Provider Active Start: May 18, 2025 End: May 18, 2025 Team Status: Active Member Role/Relationship Status Dates Dr. Marques Casanova MD Primary Care Provider Active Team Status: Inactive Member Role/Relationship Status Dates Dr. Marques Casanova MD Primary Care Provider Active Start: February 10, 2025 End: February 10, 2025 Chikis Jacobson NP-C Attending Provider Active Start: February 10, 2025 End: February 10, 2025 TAMEKA Chatman Referring Provider Active Start: February 10, 2025 End: February 10, 2025 Team Status: Inactive Member Role/Relationship Status Dates Dr. Marques Casanova MD Primary Care Provider Active Start: February 11, 2025 End: February 11, 2025 Dr. Marques Casanova MD Referring Provider Active Start: February 11, 2025 End: February 11, 2025 Ami Contreras NP-C Attending Provider Active Start: February 11, 2025 End: February 11, 2025 Team Status: Inactive Member Role/Relationship Status Dates Dr. Marques Casanova MD Primary Care Provider Active Start: February 20, 2025 End: February 20, 2025 Dr. Marques Casanova MD Referring Provider Active Start: February 20, 2025 End: February 20, 2025 JACQUE ShieldsC Attending Provider Active Start: February 20, 2025 End: February 20, 2025 Team Status: Inactive Member Role/Relationship Status Dates Dr. Marques Casanova MD Primary Care Provider Active Start: March 23, 2025 End: March 24, 2025 Dr. Santo Panther Burn , DPM Other Provider Active S tart: March 23, 2025 End: March 24, 2025 ANDREINA RODRIGUEZ Attending Provider Active Star t: March 23, 2025 End: March 24, 2025 ANDREINA RODRIGUEZ Referring Provider Active Star t: March 23, 2025 End: March 24, 2025 MARIA DEL CARMEN SANDY Other Provider Active Start: March 23, 2025 End: March 24, 2025 Team Status: Inactive Member Role/Relationship Status Dates Dr. Marques Casanova MD Primary Care Provider Active Start: April 07, 2025 End: April 07, 2025 Dr. Marques Casanova MD Referring Provider Active Start: April 07, 2025 End: April 07, 2025 TAMEKA Chatman Attending Provider Active Start: April 07, 2025 End: April 07, 2025 Team Status: Inactive Member Role/Relationship Status Dates Dr. Marques Casanova MD Primary Care Provider Active Start: May 04, 2025 End: May 04, 2025 Dr. Marques Casanova MD Attending Provider Active Start: May 04, 2025 End: May 04, 2025 Dr. Marques Casanova MD Referring Provider Active Start: May 04, 2025 End: May 04, 2025 Team Status: Inactive Member Role/Relationship Status Dates Dr. Marques Casanova MD Primary Care Provider Active Start: May 18, 2025 End: May 18, 2025 Dr. Marques Casanova MD Referring Provider Active Start: May 18, 2025 End: May 18, 2025 Alysa Solomon PA, PA Attending Provider Active Start: May 18, 2025 End: May 18, 2025 Team Status: Inactive Member Role/Relationship Status Dates Dr. Marques Casanova MD Primary Care Provider Active Start: May 24, 2025 End: May 24, 2025 Dr. Marques Casanova MD Referring Provider Active Start: May 24, 2025 End: May 24, 2025 TAMEKA Pond Attending Provider Active Start: May 24, 2025 End: May 24, 2025 Source Comments (unrecognize d section and content) In the event this informatio n is protected by the Federal Confidentiality of Alcohol and Drug Abuse Patient Records regulations: The Federal rules restrict any use of the information to criminally investigate or prosecute any alcohol or drug abuse patient.[facility] the event this information is protected by the Federal Confidentiality of Alcohol and Drug Abuse Patient Records regulations: The Federal rules restrict any use of the information to criminally investigate or prosecute any alcohol or drug abuse patient.[facility] the event this information is protected by the Federal Confidentiality of Alcohol and Drug Abuse Patient Records regulations: The Federal rules restrict any use of the information to criminally investigate or prosecute any alcohol or drug abuse patient.[facility] the event this information is protected by the Federal Confidentiality of Alcohol and Drug Abuse Patient Records regulations: The Federal rules restrict any use of the information to criminally investigate or prosecute any alcohol or drug abuse patient.[facility] HospitalIn the event this information is protected by the Federal Confidentiality of Alcohol and Drug Abuse Patient Records regulations: The Federal rules restrict any use of the information to criminally investigate or prosecute any alcohol or drug abuse patient.[facility] Hospital[facility] the event this information is protected by the Federal Confidentiality of Alcohol and Drug Abuse Patient Records regulations: The Federal rules restrict any use of the information to criminally investigate or prosecute any alcohol or drug abuse patient.[facility] Hospital[facility] the event this information is protected by the Federal Confidentiality of Alcohol and Drug Abuse Patient Records regulations: The Federal rules restrict any use of the information to criminally investigate or prosecute any alcohol or drug abuse patient.[facility] FOR RECORDS PERTAINING TO PATIENTS WHO ARE OR HAVE BEEN ENROLLED IN A CHEMICAL DEPENDENCY/SUBSTANCEABUSE PROGRAM, SOME INFORMATION MAY BE OMITTED. This clinical summary was aggregated from multiple sources. Caution should be exercised in using it in the provision of clinical care. This summary normalizes information from multiple sources, and as a consequence, information in this document may materially change the coding, format and clinical context of patient data. In addition, data may be omitted in some cases. CLINICAL DECISIONS SHOULD BE BASED ON THE PRIMARY CLINICAL RECORDS. [facility]. provides no warranty or guarantee of the accuracy or completeness of information in this document.
--- NOTE | 2025-06-21 10:07 | STRESSREP ---
Stress Test Report Pharmacologic myocardial perfusion stress test. 65-year-old male with a history of dyspnea Resting EKG demonstrates sinus rhythm with a rate of 60 bpm. Resting blood pressure is 132/80 mmHg. 0.4 mg of regadenoson was infused per usual protocol followed by rapid intravenous saline flush injection. Continuous EKG monitoring was performed. The maximum heart rate was 77 bpm which was 49% of max impacted heart rate the maximum workload was 1 metabolic equivalent. At rest there were no ST or T wave changes noted to suggest ischemia and at peak infusion nonspecific ST changes were noted which did not meet the criteria for ischemia. No clinical angina is noted. The final blood pressure was 132/70 mmHg. Myocardial perfusion protocol. 13.8 mCi of technetium 99m sestamibi was injected at rest. 0.4 mg of regadenoson was infused per usual protocol. At peak infusion 41.5 mCi of technetium 99m sestamibi was injected stress images were obtained stress and rest images were reconstructed and compared in the short axis vertical long and horizontal long axis. Gated images were also obtained. Perfusion SPECT analysis: Review of the stress images demonstrate normal uptake of tracer noted in all areas of the myocardium. The resting images similar demonstrated normal uptake of tracer noted in all areas of the myocardium. No areas of reversibility are noted to suggest ischemia and no previous infarct is noted. Gated SPECT analysis: The gated ejection fraction is 60%. Conclusion: Normal pharmacologic myocardial perfusion stress test. Preserved ejection fraction.
== END | disposition home or self-care (01) ==
PROVIDERS: PCP Family Medicine; Referring Provider Physician Assistant Medical; Visit Provider Physician Assistant Medical
DX: R07.9 Chest pain, unspecified (principal); R06.02 Shortness of breath; I25.10 Atherosclerotic heart disease of native coronary artery without angina pectoris; R01.1 Cardiac murmur, unspecified
CPT/HCPCS: 78452; 93017; 93306; A9500; A4216; J2785

== ENCOUNTER 2025-07-13 09:31 | Emergency (ER) | payer MEDICARE, SELFPAY ==
[2025-07-13 09:35] VITALS: BP 157/76; PULSE 59; RESP 16; TEMP 36.5; O2SAT 99; BMI 36.2
--- NOTE | 2025-07-13 10:06 | CT_ITS ---
PROCEDURE: ABDOMEN/PELVIS WITHOUT CONT 07/13/2025 REASON FOR EXAM: PAIN RIGHT LOWER QUADRANT ABDOMINAL PAIN TECHNIQUE: ABDOMEN/PELVIS WITHOUT CONT Noncontrast technique limits evaluation of the abdominal and pelvic viscera. Coronal and Sagittal reconstruction series were provided. One or more dose reduction techniques were used (e.g., Automated exposure control, adjustment of the mA and/or kV according to patient size, use of iterative reconstruction technique). RADIATION DOSE SUMMARY: CTDlvol: 20.16 mGy DLP: 1098.27 mGycm COMPARISON: Prior study dated April 04, 2022. FINDINGS: Lung bases: Minimal bibasilar atelectasis. Coronary artery calcification. Small hiatal hernia. Liver: Normal size. No obvious mass. Gallbladder: Multiple gallstones. Spleen: Normal size. Pancreas: Normal size. No surrounding inflammation. Adrenals: Unremarkable Kidneys: Marked degree of atrophy of the [place] renal arteries. 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 Bowel: Colonic diverticulosis without diverticulitis. Appendix: Unremarkable Lymph nodes: Unremarkable. Vasculature: Mild diffuse atherosclerotic calcifications are noted. Atherosclerotic plaque formation of the major visceral vessels. Peritoneum / Retroperitoneum: Unremarkable Bones: Degenerative changes of the spine. Grade 1 anterior listhesis of L5 on S1 due to bilateral spondylolysis of the pars interarticularis of the L5 vertebrae. Evidence of prior bilateral inguinal hernia repair. CT/Abdomen/Pelvis without Cont IMPRESSION: Marked atrophy of the [place] kidneys. A transplant kidney seen in the right he mipelvis. Multiple small gallstones. Reading Location: [id number]
--- NOTE | 2025-07-13 10:07 | ED.VIS.GI ---
HPI HPI - GI History of Present Illness Chief Complaint: Abd Pain Informant: patient Abdominal Pain/Flank Pain Onset: Days Context: Gradual Onset Timing: Continuous Quality: Aching Location: RLQ Current Severity: Moderate Maximum Severity: Moderate Worsened by: Nothing Relieved by: Nothing Nausea/Vomiting/Emesis GI Symptom: Negative for Nausea or Vomiting Diarrhea/Melena/Hematochezia GI Symptom: Negative for Diarrhea, Melena or Hematochezia Associated Symptoms Associated Symptoms: Negative for Dysuria, Frequency, Hematuria or Urgency Narrative Narrative: 65-year-old male history of kidney transplant 5 years ago state, diabetes, chronic kidney disease, and CHF. States has had abdominal pain for about a week after helping to move a bunch of furniture. His renal transplant was placed in his right lower quadrant 5 years ago. He has a known hernia there. But he also has developed a recent rash he thought it was from bug bites but he said there actually saw any insects bite him. Denies any fever. Denies any nausea. Denies any vomiting or diarrhea. No constipation. No dysuria. No hematuria. Nothing particular makes the pain better or worse. It is along the distribution of the rash. 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 foot ulcer Diabetic peripheral neuropathy Cellulitis of left lower limb History of immunosuppression therapy Kidney disease Sleep apnea CPAP (continuous positive airway pressure) dependence Congestive heart failure (CHF) Diabetic foot infection Obesity Chronic kidney disease Sinus bradycardia Chronic systolic (congestive) heart failure Dilated cardiomyopathy Left ventricular hypertrophy Gee's granulomatosis with renal involvement Cough with hemoptysis Acute respiratory failure with hypoxia Acute respiratory failure Diffuse pulmonary alveolar hemorrhage Hemoptysis Healthcare-associated pneumonia End stage renal disease on dialysis DAVID (obstructive sleep apnea) Problem with dialysis access Anemia Lymphadenopathy Hyperlipidemia Hypothyroidism Type II diabetes mellitus Home Medications ?Medication ?Instructions ?Recorded ?Last Taken ?Type levothyroxine 175 mcg tablet 175 mcg PO DAILY thyroid 10/15/20 05/02/22 History pantoprazole 40 mg tablet,delayed 40 mg PO DAILY reflux 10/15/20 05/02/22 History release calcitriol 0.25 mcg capsule 0.25 mcg PO DAILY bone health 04/07/22 05/02/22 History hydralazine 25 mg tablet 25 mg PO BID blood pressure 04/07/22 05/02/22 History mycophenolate sodium 180 mg 360 mg PO BID antirejection 04/07/22 05/02/22 History tablet,delayed release amlodipine 10 mg tablet 10 mg PO DAILY BP 05/02/22 05/02/22 History carvedilol 12.5 mg tablet 12.5 mg PO BID HEART 05/02/22 05/02/22 History tacrolimus 0.75 mg tablet,extended 0.75 mg PO DAILY TRANSPLANT 05/02/22 05/02/22 History release 24 hr (Envarsus XR) blood sugar diagnostic (True #120 ea 05/14/22 Unknown Rx Metrix Glucose Test Strip) denosumab 60 mg/mL subcutaneous 60 mg subcut [id number] #1 mL 02/13/23 Unknown Rx syringe (Prolia) atorvastatin 40 mg tablet 40 mg PO QHS 05/20/23 Unknown History blood-glucose sensor (Dexcom G7 #9 ea 09/16/23 Unknown Rx Sensor device) Humalog KwikPen Insulin 100 20 unit (0.2 mL) subcut TID #60 mL 09/29/24 Unknown Rx unit/mL subcutaneous (insulin lispro) insulin glargine 100 unit/mL (3 20 unit (0.2 mL) subcut QAM #18 mL 10/01/24 Unknown Rx mL) subcutaneous pen (Basaglar KwikPen U-100 Insulin) dapagliflozin propanediol 10 mg 10 mg PO DAILY #90 tabs 11/26/24 Unknown Rx tablet (Farxiga) citalopram 40 mg tablet 40 mg PO DAILY 12/18/24 Unknown History prednisone 5 mg tablet 5 mg PO QDAY 12/18/24 Unknown History pen needle, diabetic 32 gauge x #120 ea 01/18/25 Unknown Rx (BD Ultra-Fine Meaghan Pen Needle) semaglutide 2 mg/dose (8 mg/3 mL) 2 mg (0.75 mL) subcut QWEEK #3 mL 01/18/25 Unknown Rx subcutaneous pen injector (Ozempic) famciclovir 500 mg tablet 500 mg PO Q8H 7 days #21 tabs 07/13/25 Unknown Rx prednisone 20 mg tablet 40 mg (2 x 20 mg) PO DAILY 6 days 07/13/25 Unknown Rx #12 tabs Allergy/AdvReac Type Severity Reaction Status Date / Time losartan Allergy Severe Hives Verified 05/24/25 14:04 epoetin beta (From Mircera) AdvReac back pain Verified 05/24/25 14:04 Family History Father CAD (coronary artery disease) Myocardial infarction, Onset Age: 56 Stented coronary artery Grandfather Heart disease Grandmother Heart disease Surgical History History of kidney transplant S/P arteriovenous (AV) fistula repair Presence of surgically created arteriovenous shunt for hemodialysis S/P nasal surgery H/O hernia repair Social History Smoking Status: Never smoker how long ago did patient quit smoking: previous chewing tobacco use second hand exposure: Yes alcohol intake: never ROS ROS ED ROS Narrative Abdominal pain. Denies other symptoms. Rash right flank and right groin region. Constitutional Constitutional ED: Denies chills or fever(s) ENT ENT ED: Denies ear pain Cardiovascular Cardiovascular: Denies chest pain Respiratory/Chest Respiratory/Chest: Denies cough Gastrointestinal Gastrointestinal: Reports abdominal pain; Denies constipation, diarrhea, melena, nausea or vomiting Genitourinary Genitourinary ED: Denies urinary frequency Musculoskeletal Musculoskeletal: Denies arthralgias or back pain Integumentary Reports rash; Denies abscess or Abrasions Neurologic Neurologic: Denies headache(s) Psychiatric Psychiatric: Denies anxiety or depression Endocrine Endocrinology: Denies polydipsia Hematologic/Lymphatic Hematologic/Lymphatic: Denies easy bleeding Allergic/Immunologic Allergic/Immunologic ED: Denies mouth swelling EXAM Physical Exam Narrative Exam Narrative: Well-appearing 65-year-old male. Vital signs stable afebrile. No acute distress. H EENT exam pupils round react to light. Mytrex members. Neck nontender. Lungs clear to auscultation. Heart regular rhythm no murmur. Chest wall ribs nontender. Abdomen soft, nontender, nondistended, normal bowel sounds without peritoneal signs. He has a right renal transplant in the right lower quadrant. He has a hernia noted with that. It is easily reducible. There is a rash over that area into his groin and right flank consistent with an early atypical shingles. That may be the cause of his pain. He has no reproducible abdominal pain. No McBurney's point tenderness. No right upper quadrant tenderness. No obstruction. Moving all 4 extremities. Nontender no edema. Neurologically is awake alert. Answering questions following commands. Const Vital Signs: 07/13/25 09:35 Temperature 97.7 F L Temperature Source Oral Pulse Rate 59 L Respiratory Rate 16 Blood Pressure 157/76 H Blood Pressure Mean 103 Pulse Ox 99 Oxygen Delivery Method Room Air Positive well nourished and well developed; Negative for cachectic, contractures or unkempt General Appearance ED: well developed and NAD; Negative for unkempt, cachectic, contractures or pallor Nutritional Appearance: Negative for cachectic HEENT Reports moist mucous membranes normocephalic and atraumatic Eyes PERRL and EOMs intact bilaterally Neck no lymphadenopathy, supple and no JVD Resp normal respiratory effort and clear to auscultation bilaterally Cardio regular rhythm, S1 normal heart sound, S2 normal heart sound and no murmurs GI non-tender, non-distended and no masses GI Narrative: No reproducible abdominal pain. Rash along the right lower quadrant flank and groin possibly early shingles. Right lower quadrant easily reducible hernia along his renal transplant. Auscultation: normoactive bowel sounds Palpation: hernia; Negative for tender, guarding, rigid, hepatomegaly, splenomegaly, mass, pulsatile mass or rebound tenderness present Back/Spine no CVA tenderness General Back: Negative for CVA tenderness Cervical Spine: Negative for cervical spine tenderness Thoracic Spine / Upper Back: Negative for thoracic spinal tenderness Lumbar Spine / Lower Back: Negative for lumbar spinal tenderness Extremity full ROM General Extremety ED: Negative for edema or tenderness General Extremity: Negative for edema Neuro CN's II-XII intact bilaterally, moves all extremities and no sensory deficits noted Sensorium / Orientation: oriented to person, oriented to place and oriented to time Motor Exam: strength 5/5 throughout Psych mental status grossly normal and thought process normal Appearance: Negative for unkempt Skin no wounds Skin Narrative: Right flank and right groin rash consistent with possibly early shingles. General Skin Exam: Negative for jaundice or pallor Lesions: no lesions Rashes: No no rashes and rashes noted MDM MDM MDM Narrative Medical decision making narrative: 65-year-old male right lower quadrant abdominal pain known history of renal transplant known hernia. Pain may be secondary to rash it looks like atypical shingles. The pain is not reproducible I do not think it is appendicitis but is in the differential. UTI or kidney stone is a possibility. It could be from the hernia but the hernia has not incarcerated or strangulated. Is not tender. Easily reduces.CAT scan the labs will be obtained. Were not can use contrast due to his kidney function and his renal transplant. Patient did not wining for pain he is not having any nausea neither. 12:02 PM. Repeat exam at patient doing well. Exam unchanged. We went over all his test results both he and his . Explained him I thought this is secondary to the shingles rash. There is nothing acute on his lab work or his CAT scan. We discussed his CAT scan results and gallstones. As not the cause of his pain today. Outpatient follow-up. Be started on Famvir 3 times a day. Prednisone 40 mg a day. First dose of prednisone given here. Prescription sent to his pharmacy. History & Record Review Discussion w/independent historian: Patient Additional record(s) reviewed:: Prior inpatient record, Prior outpatient record, Prior ED visit and Prior labs Lab Data Attestation: I reviewed the patient's lab results. Lab results narrative: CBC shows a white count 12.4. H&H 15 and 49. Platelets 184. Electrolytes show gap 13. BUN and creatinine are 23 1.9. Glucose 107. Liver enzymes are normal. Urinalysis shows no nitrites. No white or red cells. No bacteria. Negative. CAT scan shows gallstones but no acute abnormality. Labs: Laboratory Results - last 24 hr 07/13/25 07/13/25 09:50 10:58 WBC 12.4 H RBC 5.76 Hgb 15.7 Hct 49.6 MCV 86.1 MCH 27.3 MCHC 31.7 L RDW Std Deviation 42.5 RDW Coeff of Carmina 13.7 Plt Count 184 MPV 10.2 Immature Gran % (Auto) 1.100 H Neut % (Auto) 76.5 H Lymph % (Auto) 10.3 L [place] % (Auto) 9.6 Eos % (Auto) 1.9 Baso % (Auto) 0.6 Absolute Neuts (auto) 9.5 H Absolute Lymphs (auto) 1.27 Nucleated RBC % 0 Sodium 143 Potassium 3.8 Chloride 106 Carbon Dioxide 23.7 Anion Gap 13 BUN 23 H Creatinine 1.92 H Estim Creat Clear Calc 49.90 L Est GFR (MDRD) Non-Af 39 L BUN/Creatinine Ratio 12.1 Glucose 107 H Calcium 10.0 Total Bilirubin 0.62 AST 18 ALT 23 Alkaline Phosphatase 70 Total Protein 6.3 Albumin 4.3 Globulin 2.0 L Albumin/Globulin Ratio 2.2 Urine Color Yellow Urine Clarity Clear Urine pH 6.5 Ur Specific [place] 1.010 Urine Protein 30 H Urine Glucose (UA) 250 H Urine Ketones Negative Urine Occult Blood 10 H Urine Nitrite Negative Urine Bilirubin Negative Urine Urobilinogen Normal Ur Leukocyte Esterase Negative Urine RBC 0-5 SEEN Urine WBC 0 SEEN Ur Squamous Epith Cells 0-5 SEEN Urine Bacteria 0 SEEN Urine Mucus 0 SEEN Radiography Diagnostic Testing: Clinical Impression(s) from Imaging Studies Abdomen/Pelvis CT 07/13/25 10:06 IMPRESSION: Marked atrophy of the [place] kidneys. A transplant kidney seen in the right hemipelvis. Multiple small gallstones. Reading Location: [facility] Discharge Plan Triage Chief Complaint: Abd Pain ED Provider: Kp Seay Dx/Rx/DC Orders Clinical Impression: Abdominal pain, Chronic kidney disease, Shingles, Hx of kidney transplant, History of diabetes mellitus Instructions: ED Shingles (Herpes Zoster) Prescriptions: New famciclovir 500 mg tablet 500 mg PO Q8H 7 Days Qty: 21 0RF prednisone 20 mg tablet 40 mg PO DAILY 6 Days Qty: 12 0RF No Action atorvastatin 40 mg tablet 40 mg PO QHS citalopram 40 mg tablet 40 mg PO DAILY prednisone 5 mg tablet 5 mg PO QDAY Patient Comments: [NO ORIGINAL SIG] levothyroxine 175 MCG tablet 175 mcg PO DAILY pantoprazole 40 MG tablet 40 mg PO DAILY hydralazine 25 mg Tablet 25 mg PO BID calcitriol 0.25 mcg Capsule 0.25 mcg PO DAILY mycophenolate sodium 180 mg Tablet,Delayed Release (Dr/Ec) 360 mg PO BID carvedilol 12.5 mg tablet 12.5 mg PO BID amlodipine 10 mg tablet 10 mg PO DAILY Envarsus XR 0.75 mg tablet extended release 24 hr 0.75 mg PO DAILY (DME) True Metrix Glucose Test Strip Strip See Rx Instructions .ROUTE .MEDSUPPLY Qty: 120 6RF Rx Instructions: 4x/day Prolia 60 mg/mL syringe 60 mg subcut [id number] Qty: 1 1RF (DME) Dexcom G7 Sensor Device See Rx Instructions .Route Qty: 9 1RF Rx Instructions: 1 sensor q 10 days insulin lispro [Humalog KwikPen Insulin] 100 unit/mL insulin pen 20 unit subcut TID Qty: 60 1RF insulin glargine [Basaglar KwikPen U-100 Insulin] 100 unit/mL (3 mL) insulin pen 20 unit subcut QAM Qty: 18 2RF Farxiga 10 mg tablet 10 mg PO DAILY Qty: 90 3RF Ozempic 2 mg/dose (8 mg/3 mL) pen injector 2 mg subcut QWEEK Qty: 3 0RF (DME) pen needle, diabetic [BD Ultra-Fine Meaghan Pen Needle] 32 gauge x 5/32 needle See Rx Instructions .ROUTE .MEDSUPPLY Qty: 120 0RF Rx Instructions: 4 times per day Primary Care Provider: Marques Casanova Referrals: Marques Casanova MD [Primary Care Provider] - As Needed Activity Restrictions/Additional Instructions: Right lower abdominal and flank pain I think is secondary to shingles rash. Prednisone 40 mg a day for 7 days total. Then go back to your normal prednisone dose of 5 mg a day. Famvir 3 times a day which is a medication that is an antiviral which should help shorten the shingles course. Your labs otherwise and CAT scan today looked good. You do have gallstones but that is not the cause of your pain today. Follow-up with your doctor as needed. Print Language: Marshallese Disposition Disposition: Home, Self Care
[2025-07-13 10:17] LABS: Hematocrit 49.6 % (40-54); Hemoglobin 15.7 g/dL (13.0-16.5); Immature Granulocytes Count 0.140 X10^3/uL (0.0-0.0); Mean Corp Hgb Conc 31.7 g/dL (32-36); Mean Corpuscular Volume 86.1 fL (80-94); Mean Platelet Vol. 10.2 fl (6.2-12.0); NRBC Flagged by Analyzer 0 % (0-5); Platelet Count 184 K/mm3 (150-450); RBC Distribution Width CV 13.7 % (11.6-14.6); RBC Distribution Width SD 42.5 fl (35.1-43.9); Red Blood Count 5.76 M/mm3 (4.6-6.2); White Blood Count 12.4 K/mm3 (4.4-11.0)
[2025-07-13 10:53] LABS: AST(SGOT) 18 U/L (<=37); Alanine Aminotransfer ALT/SGPT 23 U/L (<=46); Albumin, Serum 4.3 g/dL (3.4-4.8); Alkaline Phosphatase 70 U/L (40-129); Anion Gap 13 (5-15); BUN 23 mg/dL (4-19); BUN/Creat Ratio 12.1 RATIO (10-20); Calcium,Total 10.0 mg/dL (7.6-11.0); Carbon Dioxide 23.7 mmol/L (21.0-32.0); Chloride 106 mmol/L (98-108); Estimated Creatinine Clearance 49.90 ml/min (50-250); Globulin 2.0 g/dL (2.2-4.2); Glucose 107 mg/dL (70-99); Potassium 3.8 mmol/L (3.3-5.1)
[2025-07-13 11:05] LABS: Mucous, Urine 0 SEEN /hpf (<or=2+)
[2025-07-13 11:07] LABS: Color, Urine Yellow (Yellow); Glucose, Dipstick 250 mg/dl (Normal); Ketone-Dipstick Negative (Negative); Leukocyte Esterase-Dipstick Negative /ul (Negative); Nitrite-Dipstick Negative (Negative); Occult Blood-Urine 10 /ul (Negative); Protein-Dipstick 30 mg/dl (Negative); Specific Gravity, Urine 1.010 (1.002-1.030); Urine Bilirubin Dipstick Negative (Negative)
[2025-07-13 11:14] LABS: Red Blood Cells-Urine 0-5 SEEN /hpf (0-5); Squamous Epithelial Cells - UA 0-5 SEEN /hpf (0-5)
[2025-07-13 11:32] VITALS: BP 147/69
[2025-07-13 12:36] VITALS: BP 132/69; PULSE 56; RESP 19; TEMP 36.6; O2SAT 100
== END 2025-07-13 12:37 | disposition home or self-care (01) ==
PROVIDERS: Emergency Provider Emergency Medicine; PCP Family Medicine; Visit Provider Emergency Medicine
DX: R10.31 Right lower quadrant pain (principal); I13.2 Hypertensive heart and chronic kidney disease with heart failure and with stage 5 chronic kidney disease, or end stage renal disease; N18.6 End stage renal disease; I50.22 Chronic systolic (congestive) heart failure; I42.0 Dilated cardiomyopathy; E11.42 Type 2 diabetes mellitus with diabetic polyneuropathy; E11.22 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 diabetic chronic kidney disease; Z79.4 Long term (current) use of insulin; E78.5 Hyperlipidemia, unspecified; B02.9 Zoster without complications; I25.10 Atherosclerotic heart disease of native coronary artery without angina pectoris; Z94.0 Kidney transplant status; Z79.85 Long-term (current) use of injectable non-insulin antidiabetic drugs; Z79.52 Long term (current) use of systemic steroids; Z79.890 Hormone replacement therapy; Z79.899 Other long term (current) drug therapy; Z87.891 Personal history of nicotine dependence
CPT/HCPCS: 74176; 80053; 81001; 85025; 99284; A4216

== ENCOUNTER → 2025-09-03 | Outpatient (CLI) | payer MEDICARE, SELFPAY ==
--- NOTE | 2025-09-03 10:31 | RAD_ITS ---
PROCEDURE: CHEST PA AND LATERAL 09/03/2025 REASON FOR EXAM: BRONCHITIS TECHNIQUE: Procedure Code: RADCXR Modality: DX Procedure: CHEST PA AND LATERAL COMPARISON: Chest x-ray dated 11/10/[address] scan of the chest dated 02/10/2025 FINDINGS: Hardware: None Heart: Heart size and configuration are within normal limits. Mediastinum: Pulmonary vasculature and hilar structures are unremarkable. Arteriosclerotic vascular disease of the aorta is noted. Trachea is midline. Lungs: Lungs are expanded and clear without evidence of pneumothorax, atelectasis, consolidation, effusion or pneumonic infiltrate Bones: There is an old healed left clavicular fracture. RAD/Chest PA and Lateral IMPRESSION: No acute cardiopulmonary process identified radiographically. Reading Location: [id number]
[2025-09-03 12:30] LABS: Hematocrit 49.7 % (40-54); Hemoglobin 15.8 g/dL (13.0-16.5); Immature Granulocytes Count 0.200 X10^3/uL (0.0-0.0); Mean Corp Hgb Conc 31.8 g/dL (32-36); Mean Corpuscular Volume 85.0 fL (80-94); Mean Platelet Vol. 10.2 fl (6.2-12.0); NRBC Flagged by Analyzer 0 % (0-5); Platelet Count 237 K/mm3 (150-450); RBC Distribution Width CV 14.7 % (11.6-14.6); RBC Distribution Width SD 45.1 fl (35.1-43.9); Red Blood Count 5.85 M/mm3 (4.6-6.2); White Blood Count 16.7 K/mm3 (4.4-11.0)
[2025-09-03 12:39] LABS: AST(SGOT) 18 U/L (<=37); Alanine Aminotransfer ALT/SGPT 22 U/L (<=46); Albumin, Serum 4.2 g/dL (3.4-4.8); Alkaline Phosphatase 63 U/L (40-129); Anion Gap 13 (5-15); BUN 25 mg/dL (4-19); BUN/Creat Ratio 13.4 RATIO (10-20); Calcium,Total 9.8 mg/dL (7.6-11.0); Carbon Dioxide 21.7 mmol/L (21.0-32.0); Chloride 105 mmol/L (98-108); Cholesterol 119 mg/dL (<=200); Globulin 2.3 g/dL (2.2-4.2); Glucose 179 mg/dL (70-99); Low Density Lipoprotein Calc. 52 mg/dL; Potassium 3.8 mmol/L (3.3-5.1); Triglycerides 164 mg/dL; Very Low Density Lipoprotein 33 mg/dL (5-40); cholesterol:hdl ratio screen 3.49
== END | disposition home or self-care (01) ==
LOC: MTLAB 10:26
PROVIDERS: PCP Family Medicine; Referring Provider Family Medicine; Visit Provider Family Medicine
DX: J20.9 Acute bronchitis, unspecified (principal); E11.69 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 other specified complication; E03.9 Hypothyroidism, unspecified
CPT/HCPCS: 36415; 71046; 80053; 80061; 84439; 84443; 85025

== ENCOUNTER → 2025-09-08 | Outpatient (CLI) | payer MEDICARE, SELFPAY ==
[2025-09-08 10:20] LABS: Hematocrit 47.7 % (40-54); Hemoglobin 15.3 g/dL (13.0-16.5); Immature Granulocytes Count 0.110 X10^3/uL (0.0-0.0); Mean Corp Hgb Conc 32.1 g/dL (32-36); Mean Corpuscular Volume 84.4 fL (80-94); Mean Platelet Vol. 10.2 fl (6.2-12.0); NRBC Flagged by Analyzer 0 % (0-5); Platelet Count 219 K/mm3 (150-450); RBC Distribution Width CV 14.8 % (11.6-14.6); RBC Distribution Width SD 44.7 fl (35.1-43.9); Red Blood Count 5.65 M/mm3 (4.6-6.2); White Blood Count 13.8 K/mm3 (4.4-11.0)
== END | disposition home or self-care (01) ==
LOC: MFPLAB 09:34
PROVIDERS: PCP Family Medicine; Visit Provider Family Medicine
DX: D72.829 Elevated white blood cell count, unspecified (principal)
CPT/HCPCS: 36415; 85025

== ENCOUNTER 2025-11-16 11:53 | Outpatient (RCR) | payer MEDICARE, SELFPAY ==
[2025-03-24 21:35] VITALS: BMI 28.1
[2025-11-16 12:44] LABS: Hematocrit 50.5 % (40-54); Hemoglobin 15.5 g/dL (13.0-16.5); Immature Granulocytes Count 0.150 X10^3/uL (0.0-0.0); Mean Corp Hgb Conc 30.7 g/dL (32-36); Mean Corpuscular Volume 88.1 fL (80-94); Mean Platelet Vol. 10.4 fl (6.2-12.0); NRBC Flagged by Analyzer 0 % (0-5); Platelet Count 219 K/mm3 (150-450); RBC Distribution Width CV 13.8 % (11.6-14.6); RBC Distribution Width SD 44.4 fl (35.1-43.9); Red Blood Count 5.73 M/mm3 (4.6-6.2); White Blood Count 16.5 K/mm3 (4.4-11.0)
[2025-11-16 13:32] LABS: Anion Gap 12 (7-18); BUN 31 mg/dL (4-19); BUN/Creat Ratio 15.5 RATIO (10-20); Calcium,Total 10.0 mg/dL (7.6-11.0); Carbon Dioxide 22.1 mmol/L (20.0-29.0); Chloride 105 mmol/L (96-106); Glucose 197 mg/dL (70-99); Magnesium 1.8 mg/dL (1.5-2.2); Potassium 4.3 mmol/L (3.5-5.1)
== END 2025-11-16 18:00 | disposition home or self-care (01) ==
LOC: LAB 11:53
PROVIDERS: PCP Family Medicine
DX: Z94.0 Kidney transplant status (principal); R79.9 Abnormal finding of blood chemistry, unspecified; Z09 Encounter for follow-up examination after completed treatment for conditions other than malignant neoplasm; B17.10 Acute hepatitis C without hepatic coma; D84.9 Immunodeficiency, unspecified; Z79.899 Other long term (current) drug therapy; I10 Essential (primary) hypertension
CPT/HCPCS: 36415; 80048; 80197; 83735; 84100; 85025